=== PATIENT | male | born 1955 | race Caucasian/White ===

== ENCOUNTER 2023-03-01 09:31 | Outpatient (OUT) | payer OTHER, SELFPAY ==
--- NOTE | 2023-03-01 | XR_ITS ---
The [address] [address] Patient Name: SANDRA POTTER MRN: [id number] date: 1955 Sex: M Assigned Patient Location: Current Patient Location: Accession/Order Number: [id number] Exam Date: 03/01/2023 10:00 Report Date: 03/04/2023 08:54 At the request of: ALBERTA TREADWELL Procedure: XR foot LT min 3V PROCEDURE: XR foot LT min 3V COMPARISON: 09/20/2021 HISTORY: LEFT FOOT PAIN FINDINGS: BONES:Remote resection of the distal portion of the first proximal phalanx and the entire first distal phalanx. Remote resection of the second digit at the proximal interphalangeal joint. No new fracture or dislocation. No new lytic or sclerotic change. SOFT TISSUES:Soft tissue swelling/injury of the first toe EFFUSION:None visible. OTHER: Negative. XR/XR foot LT min 3V IMPRESSION: Soft tissue swelling with no plain film evidence of osteomyelitis Electronically authenticated by: JODEE OCASIO Date: 03/04/2023 08:54
== END 2023-03-01 09:32 | disposition home or self-care (01) ==
LOC: WC 09:33
PROVIDERS: PCP Podiatrist Foot & Ankle Surgery; Visit Provider Podiatrist Foot & Ankle Surgery
DX: E11.621 Type 2 diabetes mellitus with foot ulcer (principal); L97.522 Non-pressure chronic ulcer of other part of left foot with fat layer exposed; I48.20 Chronic atrial fibrillation, unspecified; N18.30 Chronic kidney disease, stage 3 unspecified; E11.22 Type 2 diabetes mellitus with diabetic chronic kidney disease; E11.40 Type 2 diabetes mellitus with diabetic neuropathy, unspecified; E78.5 Hyperlipidemia, unspecified; I12.9 Hypertensive chronic kidney disease with stage 1 through stage 4 chronic kidney disease, or unspecified chronic kidney disease; D49.89 Neoplasm of unspecified behavior of other specified sites; E66.9 Obesity, unspecified; E03.9 Hypothyroidism, unspecified
CPT/HCPCS: 11042; 29445; 73630; A6213; G0463

== ENCOUNTER 2023-03-06 11:00 | Outpatient (OUT) | payer OTHER, SELFPAY | END 2023-03-06 11:01 | disposition home or self-care (01) | LOC: WC 03-12 10:35 | PROVIDERS: PCP Podiatrist Foot & Ankle Surgery; Visit Provider Podiatrist Foot & Ankle Surgery | DX: E11.621 Type 2 diabetes mellitus with foot ulcer (principal); L97.522 Non-pressure chronic ulcer of other part of left foot with fat layer exposed; I48.20 Chronic atrial fibrillation, unspecified; E11.40 Type 2 diabetes mellitus with diabetic neuropathy, unspecified; E11.65 Type 2 diabetes mellitus with hyperglycemia; E78.5 Hyperlipidemia, unspecified; E03.9 Hypothyroidism, unspecified; D49.89 Neoplasm of unspecified behavior of other specified sites; E66.9 Obesity, unspecified; I12.9 Hypertensive chronic kidney disease with stage 1 through stage 4 chronic kidney disease, or unspecified chronic kidney disease; N18.30 Chronic kidney disease, stage 3 unspecified | CPT/HCPCS: A6199; G0463 ==

== ENCOUNTER 2023-03-26 09:59 | Outpatient (OUT) | payer OTHER, SELFPAY | END 2023-03-26 10:00 | disposition home or self-care (01) | LOC: WC 09:59 | PROVIDERS: PCP Podiatrist Foot & Ankle Surgery; Visit Provider Podiatrist Foot & Ankle Surgery | DX: E11.621 Type 2 diabetes mellitus with foot ulcer (principal); L97.522 Non-pressure chronic ulcer of other part of left foot with fat layer exposed | CPT/HCPCS: 11042 ==

== ENCOUNTER 2023-04-12 09:49 | Outpatient (OUT) | payer OTHER, SELFPAY ==
--- OUTSIDE RECORDS SUMMARY | 2023-04-12 09:55 | XMS_ITS | CCD ---
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 Name Role Phone MARTÍNEZ, ESSENCE Unavailable Unavailable FRANCISCO LI Unavailable Unavailable MARTÍNEZ, ESSENCE Unavailable Unavailable MARTÍNEZ, ESSENCE Unavailable Unavailable FRANCISCO LI Unavailable Unavailable PAULA FAJARDO Unavailable Unavailabl e FRANCISCO LI Unavailable Unavailable MARTÍNEZ, ESSENCE Unavailable Unavailable MARTÍNEZ, ESSENCE Unavailable Unavailable FRANCISCO LI Unavailable Unavailable Francisco Li Primary Care Provider [phone] Brendan Bolaños Attending Provider [phone] Russell Li MD Primary Care Provider JUSTIN RAO Referring Unavailable RUSSELL LI Primary Care Unavailable Russell Li MD Primary Care Provider [phone] AVASTHI, ULISSES Admitting Unavailable AVASTHI, ULISSES Attending Unavailable RUSSELL LI Primary Care Unavailable AVASTHI, MARGARET Referring Unavailable RUSSELL LI Primary Care Unavailable AVASTHI, ULISSES Admitting Unavailable AVASTHI, ULISSES Attending Unavailable AVASTHI, MARGARET Referring Unavailable RUSSELL LI Primary Care Unavailable Francisco Li Unavailable Francisco Li Unavailable Francisco Garcia Unavailable Unavailable Viridiana Burgess Unavailable Unavailable Unavailable Russell Li MD Primary Care Provider Geeta Dumont Unavailable [phone] None, No PCP Unavailable Unavailable Unavailable Unavailable Russell Li MD Primary Care Provider RUSSELL LI Primary Care Unavailable DEVI, VINCENT S Referring Unavailable DEVI, VINCENT S Referring Unavailable RUSSELL LI H Primary Care Unavailable Guillermo Francisco Primary Care Provider GOLDEN Dumont Attending Provider DREW Farooq Attending Provider FILIPE Lal Attending Provider NO FAMILY, PHYSICIAN Primary Care Provider Unava MD Fannie Souza Admit Provider FILIPE Lal Referring Provider [phone] DO Teri Aragon Primary Care Provider [phone] MD Shirley Persaud Attending Provider MD Casey Bhardwaj Other Provider FILIPE Begum Other Provider MD Estee Han Attending Provider DO Sandra Danielson II Attending Provider DO Francisco Li Primary Care Provider FILIPE Begum Attending Provider [phone] Criselda Renee Attending Unavailable GuillermoFrancisco Danny Primary Care Unavailable TERI ARAGON Primary Care Unavailable JACK ALEMAN Attending Unavailable JACK ALEMAN Admitting Unavailable Geeta Dumont Attending Unavailable Geeta Dumont Admitting Unavailable TERI ARAGON Primary Care Unavailable DREW Farooq Attending Provider NO FAMILY, PHYSICIAN Primary Care Provider Unava MD Shirley Zimmerman Attending Provider [phone] DO Teri Aragon Primary Care Provider GOLDEN Wagner Attending Provider [phone] GOLDEN Dumont Primary Care Provider Dario Bolden Primary Care Physician NO FAMILY, PHYSICIAN Primary Care Provider Unava GOLDEN Best Attending Provider Teri Aragon Unavailable GOLDEN Dumont Primary Care Provider GOLDEN Dumont Attending Provider DREW Farooq Attending Provider DO Stephanie Burgess Referring Provider GOLDEN Dumont Primary Care Provider MD Arron Valverde Attending Provider FILIPE Bolden Attending Provider [phone] Unavailable Unavailable MD Lavon Sandoval Attending Provider [phone] Lavon Sandoval Unavailable GOLDEN Dumont Primary Care Provider DREW Farooq Attending Provider DO Stephanie Burgess Referring Provider MD Arron Valverde Attending Provider FILIPE Bolden Attending Provider MD Lavon Sandoval Attending Provider Dr. Viridiana Burgess Attending [place] Dr. Teri Karimi Primary Care U navailGOLDEN Hargrove Primary Care Provider GOLDEN Dumont Primary Care Provider MD Lavon Sandoval Attending Provider GOLDEN Dumont Attending Provider GOLDEN Dumont Primary Care Provider MD Lavon Sandoval Attending Provider MD Sabino Ding Attending Provider DO Stephanie Burgess Attending Provider Sabino Ding Unavailable Aundrea, [facility] Dr. Viridiana Alvarado Referring Unava ilable Aditya, Dr. Viridiana Alvarado Attending Unava ilable Aditya, Dr. Viridiana Alvarado Attending Unava ilable Aundrea, Dr[facility] Dr[facility] Viridiana Alvarado Referring Unava ilable NON STAFF Primary Care Provider UnavailGOLDEN Saul Primary Care Provider MD Teri Ybarra Attending Provider GOLDEN Dumont Primary Care Provider GOLDEN Dumont Attending Provider NON STAFF Attending Provider Unavailable RobIngris cano Unavailable GOLDEN Dumont Primary Care Provider GOLDEN Dumont Attending Provider GOLDEN Del Rosario Attending Provider DO Sandra Danielson II Attending Provider DO Teri Aragon Primary Care Provider [phone] DO Stephanie Burgess Attending Provider Timmis, Sindi H Referring Unavailable Timmis, Sindi H Attending Unavailable Timmis, Sindi H Admitting Unavailable Dario Bolden Attending Unavailable Dario Bolden Admitting Unavailable NON STAFF Primary Care Provider UnavailMD Teri King Attending Provider [phone] GOLDEN Del Rosario Attending Provider DO Sandra Danielson II Attending Provider DO Teri Aragon Primary Care Provider [phone] DO Stephanie Burgess Attending Provider MD Sindi Foster Jr Attending Provider FILIPE Carver Attending Provider DO Bobby Bernabe A Emergency Provider MD Barry Cisneros Admit Provider MD Barry Cisneros Attending Provider [phone] ADELINA Schneider Other Provider Unavailable DO Stephanie Burgess Other Provider MD Elroy Werner Other Provider MD Viridiana Thompson Other Provider MD Deanne Gaxiola Other Provider MD Garry Rivera Other Provider GOLDEN Melchor Other Provider MD Rosemary Rodriguez Other Provider MD Yeny Flores Other Provider MD Ariane Ramsey Other Provider Jean Pierre [facility] Naomi Garrett Other Provider MD Kelsea Yancey Other Provider DO Bobby Bernabe Emergency Provider MD Barry Cisneros Admit Provider ADELINA Schneider Other Provider Unavailable DO Stephanie Burgess Other Provider MD Elroy Werner Other Provider MD Viridiana Thompson Other Provider MD Deanne Gaxiola Other Provider MD Garry Rivera Other Provider GOLDEN Melchor Other Provider MD Rosemary Rodriguez Other Provider MD Yeny Flores Other Provider MD Ariane Ramsey Other Provider ADOLFO [place]- Naomi Garrett Other Provider MD Kelsea Yancey Other Provider MD Mina Reilly Other Provider MD Subhash Duckworth Attending Provider MD Deanne Gaxiola Attending Provider SOFIA Zeng Emergency Provider MD Polly Velasquez Admit Provider MD Polly Velasquez Attending Provider [phone] GOLDEN Lombardo Attending Provider MD Subhash Duckworth Referring Provider DREW Farooq Other Provider Mina Reilly Unavailable TERI ARAGON Primary Care Unava ilable Prashant Salinas Unavailable DO Teri Aragon Primary Care Provider GOLDEN Wagner Attending Provider GOLDEN Dumont Primary Care Provider GOLDEN Dumont Attending Provider [phone] FILIPE Espinoza Attending Provider SINDI FOSTER Attending Unavailable EWI SOTO Attending Unavailable WEI SOTO Attending Unavailable DARIO BOLDEN Attending Unavailable DARIO BOLDEN Attending Unavailable Teri Aragon Primary Care Unavailable Deanne Gaxiola Attending Unavailable Deanne Gaxiola Admitting Unavailable Alton Espinoza Attending Unavailable Alton Espinoza Admitting Unavailable Geeta Dumont Primary Care Unavailable Lavon Sandoval Admitting Unavailable Lavon Sandoval Attending Unavailable Rohrbacher, Geeta Primary Care Unavailable Rohrbacher, Geeta Primary Care Unavailable Lavon Sandoval Admitting Unavailable Lavon Sandoval Attending Unavailable Suhbash Duckworth Attending Unavailable [facility] Unavailable Alla Schneider Consulting Unavailable Alamarkie Alaa Admitting Unavailable Stephanie Burgess Consulting Unavailable Elroy Werner Consulting Unavailable Viridiana Thompson Consulting Unavail able Deanne Gaxiola Consulting Unavailable Garry Rivera Consulting Unavailab Shameka Bo Consulting Unavailable Rosemary Rodriguez Consulting Unavailable Mark, Yeny Perryeb Consulting Unavailab Ariane Be Consulting Unavailable Naomi Greenfield Consulting Unavailable Kelsea Yancey Consulting Unavailable Mina Reilly Consulting Unavailable [facility]oy [facility] Care Unavailable Polly Velasquez Admitting Unavailable Alla Schneider Consulting Unavailable Polly Velasquez Attending Unavailable Stephanie Burgess Consulting Unavailable Alphonso, Abbasi Consulting Unavailable Viridiana Thompson Consulting Unavail able Deanne Gaxiola Consulting Unavailable Garry Rivera Consulting Unavailab Shameka Bo Consulting Unavailable Rodriguez, Rosemary Consulting Unavailable Mark, Yeny Najeeb Consulting Unavailab chava Ramsey, Tarek Consulting Unavailable Naomi [place] Consulting Unavailable Bc, Kelsea Robles Consulting Unavailable Sindi Foster Jr Attending Unavailable [facility] Unavailable Sindi Foster Jr Admitting Unavailable Lavon Sandoval Admitting Unavailable Lavon Sandoval Attending Unavailable Charissarbacher, Geeta Primary Care Unavailable Rohrbacher, Geeta Primary Care Unavailable Rohrbacher, Geeta Admitting Unavailable Rohrbacher, Geeta Attending Unavailable Rohrbacher, Geeta Primary Care Unavailable Rohrbacher, Geeta Admitting Unavailable Rohrbacher, Geeta Attending Unavailable Rohrbacher, Geeta Primary Care Unavailable Sabino Ding Admitting Unavailable Sabino Ding Attending Unavailable Rohrbacher, Geeta Primary Care Unavailable Stephanie Burgess Admitting Unavailable Stephanie Burgess Attending Unavailable Rohrbacher, Geeta Primary Care Unavailable Rohrbacher, Geeta Admitting Unavailable Rohrbacher, Geeta Attending Unavailable Rohrbacher, Geeta Admitting Unavailable Rohrbacher, Geeta Attending Unavailable NON STAFF Primary Care Unavailable Braniecki, Teri Primary Care Unavailable Stephanie Burgess Admitting Unavailable Stephanie Burgess Attending Unavailable Timmis Jr, Sindi H Attending Unavailable Timmis Jr, Sindi H Admitting Unavailable Braniecki, Teri Primary Care Unavailable Joana Farooq Consulting Unavailable Ingris Lombardo Attending Unavailable Subhash Duckworth Referring Unavailable Braniecki, Teri Primary Care Unavailable Ingris Lombardo Admitting Unavailable Dario Bolden Attending Unavailable Rohrbacher, Geeta Primary Care Unavailable Dario Boledn Admitting Unavailable Branalenacki, Teri Primary Care Unavailable Sima Wagner Attending Unavailable Michael Wagneria Admitting Unavailable Rohrbacher, Geeta Primary Care Unavailable Rohrbacher, Geeta Attending Unavailable Rohrbacher, Geeta Admitting Unavailable Timmis Jr, Sindi H Admitting Unavailable Timmis Jr, Sindi H Attending Unavailable Rohrbacher, Geeta Primary Care Unavailable Rohrbacher, Geeta Primary Care Unavailable Rohrbacher, Geeta Attending Unavailable Rohrbacher, Geeta Admitting Unavailable Braniecki, Teri Primary Care Unavailable Adamowicz II, Sandra J Admitting Unavaila ble Adamowicz II, Sandra J Attending Unavaila ble Alton Espinoza Attending Unavailable Rohrbacher, Geeta Primary Care Unavailable Alton Espinoza Admitting Unavailable Lavon Sandoval Attending Unavailable Rohrbacher, Geeta Primary Care Unavailable Lavon Sandoval Admitting Unavailable Dario Bolden Attending Unavailable Dario Bolden Admitting Unavailable Braniecki, Teri Primary Care Unavailable Ybarra, Teri Admitting Unavailable YbarraTeri Attending Unavailable NON STAFF Primary Care Unavailable Vivian Del Rosario Admitting Unavail able Vivian Del Rosario Attending Unavail able Unavailable Unavailable Unavailable Allergies Allergy Classification Reported Allergen(s) Allergy Type Date of Onset Reaction(s) Facility Angiotensin Converting Enzyme (NUBIA) Inhibitors (4 sources) Lisinopril Drug Allergy 0 Other (See Comments), Swelling, Anaphylaxis [facility] Calcium Channel Blockers (4 sources) dilTIAZem Drug Allergy 0 Itching, Other (See Comments), Palpitations [facility] Opioid Agonists (4 sources) Morphine Drug Allergy 1 Other (See Comments), Palpitations [facility] (20 sources) dilTIAZem; Translations: [diltiazem] Drug Allergy 0 Itching, Other (See Comments), Palpitations [facility] (20 sources) Lisinopril; Translations: [lisinopril] Drug Allergy 0 hives, Other (See Comments), Swelling, Anaphylaxis [facility] (20 sources) Morphine; Translations: [morphine] Drug Allergy 1 hives, Other (See Comments), Palpitations [facility] (20 sources) Angiotensin Converting Enzyme (Nubia) Inhibitors; Translations: [NUBIA Inhibitors] Allergy to drug (finding) 3 Unknown [facility] -[facility] [employer] [address] [place] Work Phone: (20 sources) Morphine Derivatives; Translations: [Morphine Derivatives] Allergy to drug (finding) [employer]Cardiology -[facility] [employer] [address] [place] Work Phone: Medications Current Medications Medication Drug Class(es) Dates Sig (Normalized) Sig (Original) acetaminophen 325 mg / oxyCODONE hydrochloride 5 mg oral tablet (20 sources) Opioid Agonist Start: 02-15-2023 take 1 tablet by mouth every six hours Oxycodone-Acetami nophen Active 1 TAB PO Q6H 18 February 15, 2023 Start: 02-15-2017 End: 04-21-2017 take 2 tablets by mouth every four to six hours Oxycodone-Acetaminophen (Percocet) 5-325 mg tablet Discontinued 2 TAB PO EVERY 4-6 HOURS February 15, 2017 April 21, 2017 8:28am albuterol 0.833 mg/ml / ipratropium bromide 0.167 mg/ml inhalation solution (3 sources) Anticholinergic, beta2-Adrenergic Agonist Start: 06-30-2020 End: 05-23-2021 take 3 mL by inhalation every six hours as needed ipratropium-albuterol (DUONEB) 0.5-2.5 (3) MG/3ML SOLN nebulizer solution Indications: Centrilobular emphysema (HCC) Inhale 3 mLs into the lungs every 6 hours as needed for Shortness of Breath 360 vial 0 07/08/2020 Active allopurinol 300 mg oral tablet (20 sources) Xanthine Oxidase Inhibitor Start: 12-24-2016 take 300 mg by mouth once daily Allopurinol Active 300 MG PO Daily December 23, 2016 11:00pm allopurinol ; or ally Quantity: 0 Refills: 0 Ordered: 15-Jul-2015 Christiana Burt Status: Other Generic Substitution Allowed Aspir-81 81 MG (20 sources) take 1 tablet by mouth once daily Aspir-81 81 MG 1 tablet Orally Once a day Active aspirin 81 mg oral tablet (20 sources) Platelet Aggregation Inhibitor, Nonsteroidal Anti-inflammatory Drug Start: 09-20-2021 take 81 mg by mouth at bedtime Aspirin Active 81 MG PO Bedtime September 19, 2021 11:00pm Start: 01-10-2021 End: 01-04-2022 take 1 tablet by mouth once daily Aspirin Adult Low Dose 81 MG Oral Tablet Delayed Release TAKE 1 TABLET DAILY. Quantity: 90 Refills: 3 Ordered: 07-Sep-2022 Viridiana Burgess DO Start : 25-Jan-2021 Active Start: 04-30-2017 End: 05-12-2020 take 81 mg by mouth once daily Aspirin Discontinued 81 MG PO Daily April 30, 2017 12:00am May 12, 2020 9:16am Start: 12-24-2016 End: 04-30-2017 take 81 mg by mouth once daily Aspirin Discontinued 81 MG PO Daily December 23, 2016 11:00pm April 30, 2017 10:43am take 1 tablet by fito th once daily aspirin 81 mg oral tablet, disintegrating ; 1 tab(s) orally once a day Quantity: 0 Refills: 0 Ordered: 15-Jul-2015 Christiana Burt Status: Other Generic Substitution Allowed Comment on above: Swallow whole. Do no t crush.Take with food or milk. atomoxetine 25 mg oral capsule (2 sources) Norepinephrine Reuptake Inhibitor take 1 capsule by mouth every twenty-four hours Atomoxetine HCl 25 MG 1 capsule Orally Once a day Active atorvastatin 20 mg oral tablet (20 sources) HMG-CoA Reductase Inhibitor Start: 09-14-19 take 20 mg by mouth at bedtime Atorvastatin Active 20 MG PO Bedtime April 03, 2022 12:00am Start: 02-19-2021 take 1 tablet by fito th at bedtime Atorvastatin Calcium 10 MG Oral Tablet TAKE 1 TABLET BY MOUTH AT BEDTIME Quantity: 90 Refills: 3 Ordered: 20-Feb-2021 Viridiana Burgess DO Start : 19-Feb-2021 Active Start: 10-11-2020 End: 04-03-2022 take 20 mg by mouth once daily at bedtime Atorvastatin Discontinued 20 MG PO Daily at bedtime October 10, 2020 11:00pm April 03, 2022 8:03am Start: 02-15-2017 End: 08-27-2019 take 10 mg by mouth once daily at bedtime Atorvastatin Discontinued 10 MG PO Daily at bedtime February 15, 2017 12:00am August 27, 2019 12:08pm biotin 10 mg disintegrating oral tablet (20 sources) Start: 11-27-2022 take 90898 ug by mouth once daily Biotin Active 37594 MCG PO Daily November 26, 2022 11:00pm take 1 tablet by mouth once elisabet y Biotin 89864 MCG 1 tablet Orally Once a day Active Biotin Active bumetanide 0.5 mg oral tablet (20 sources) Loop Diuretic Start: 02-10-2023 take 0.5 mg by mouth once daily Bumetanide Active 0.5 MG PO DAILY@0800 30 February 10, 2023 12:00am Start: 12-24-2016 End: 02-10-2023 take 4 mg by mouth once daily in the morning Bumetanide Discontinued 4 MG PO Every morning December 23, 2016 11:00pm February 10, 2023 2:49pm Start: 12-24-2016 take 2 mg by mouth o nce daily in the morning Bumetanide Active 2 MG PO Every morning December 23, 2016 11:00pm take 1 tablet by fito th every twelve hours Bumetanide 2 MG 1 tablet Orally Twice a day for 90 day(s) Active busPIRone hydrochloride 10 m g oral tablet (7 sources) Start: 03-12-2023 busPIRone HCl 10 MG 1 tablet Orally Three a day for 90 days Feb, Active Start: 03-12-2023 take 1 tablet by fito every twelve hours busPIRone HCl 5 MG 1 tablet Orally Twice a day for 30 days Feb, Active cephalexin 500 mg oral capsule (2 sources) Cephalosporin Antibacterial take 1 capsule by mouth every six hours Cephalexin 500 MG 1 capsule Orally Four times a day Active Cholecalciferol (20 sources) Vitamin D Start: take 4000 [IU] by mouth once daily Cholecalciferol (Vitamin D3) Active 4000 UNIT PO Daily September 20, 2021 12:00am Start: 09-20-2021 take 4000 [IU] by [facility] once daily Cholecalciferol (Vitamin D3) Active 4000 UNIT PO Daily September 19, 2021 11:00pm Start: 09-20-2021 take 4000 [IU] by [facility] once daily Cholecalciferol (Vitamin D3) Active 4000 UNIT PO Daily September 19, 2021 11:00pm take 2 capsules by [facility] every twenty-four hours Vitamin D3 50 MCG (2000 UT) 2 capsules Orally Once a day Active Vitamin D 1000 U NIT TABS TAKE 1 TABLET DAILY. Quantity: 0 Refills: 0 Ordered: 06-Dec-2020 DO Active diazePAM 5 mg oral tablet (20 sources) Benzodiazepine Start: 09-10-2022 diazePAM 5 MG 1-2 tablet as needed Orally Once a day for 1 days take 30 minutes prior to procedure Aug, Active Start: 01-01-2022 take 1 tablet by [facility] every twenty-four hours diazePAM 5 MG 1 tablet as needed Orally Once a day for 1 days Dec, Not-Taking docusate sodium 50 mg / sennosides, snf 8.6 mg oral tablet (7 sources) Start: 02-06-2023 take 2 tablets by mouth once daily at bedtime Sennosides-Docusate Sodium Active 2 TAB-CAP PO Daily at bedtime February 06, 2023 12:00am doxepin hydrochloride 150 mg oral capsule (1 source) Tricyclic Antidepressant take 1 capsule by mouth once daily at bedtime doxepin 150 mg oral capsule ; 1 cap(s) orally once a day (at bedtime) Quantity: 0 Refills: 0 Ordered: 15-Jul-2015 Uy Christiana Status: Other Generic Substitution Allowed FLUoxetine 10 mg oral capsule (9 sources) Serotonin Reuptake Inhibitor Start: 03-05-2023 take 1 capsule by mouth every twenty-four hours FLUoxetine HCl 10 MG 1 capsule Orally Once a day for 30 days Feb, Active take 1 capsule by [facility] every twelve hours FLUoxetine HCl 20 MG 1 capsule Orally Tw ice a day for 90 days Active take 1 capsule by mo [facility] every twenty-four hours FLUoxetine HCl 20 MG 1 capsule Orally On ce a day for 30 days Active fluticasone propionate 0.05 mg/actuat metered dose nasal spray (20 sources) Corticosteroid Start: 04-04-2023 take 1 spray(s) nasal route once daily Fluticasone Propionate 50 MCG/ACT 1 spray in each nostril Nasally Once a day for 90 days Mar, Active Start: 06-16-2020 Fluticasone Pr opionate 50 MCG/ACT Nasal Suspension INSTILL SQUIRT PRN Quantity: 0 Refills: 0 Ordered: 10-May-2021 DO Start : 16-Jun-2020 Active Start: 05-12-2020 fluticasone (F LONASE) 50 MCG/ACT nasal spray Not currently taking, but will resume after the procedure. 0 05/12/2020 Active Start: 05-12-2020 End: 11-27-2022 Fluticasone Propionate Disco ntinued 1 SPRAY INTRANASAL Daily May 12, 2020 12:00am November 27, 2022 1:32pm take 1 spray(s) nasa l route once daily Fluticasone Propionate 50 MCG/ACT 1 spray in each nostril Nasally Once a day Not-Taking glipiZIDE er 2.5 mg 24 hr extended release oral tablet (20 sources) Sulfonylurea Start: 04-03-2022 take 2.5 mg by mouth twice daily Glipizide Active 2.5 MG PO Twice daily April 03, 2022 12:00am take 1 tablet by fito every twenty-four hours glipiZIDE XL 2.5 MG 1 tablet with breakfast Orally Once a day for 90 day(s) Active levothyroxine sodium 0.025 mg oral tablet (20 sources) l-Thyroxine Start: 02-06-2023 take 1 tablet by mouth once daily Levothyroxine (Synthroid) 25 mcg tablet Active 25 MCG PO Daily February 06, 2023 12:00am Start: 07-30-2017 take 100 ug by mouth once elisabet y Levothyroxine Active 100 MCG PO Daily July 30, 2017 8:05am Start: 07-30-2017 End: 02-06-2023 take 50 ug by mouth once daily Levothyroxine Discontin ued 50 MCG PO Daily July 29, 2017 11:00pm February 06, 2023 3:06pm take 1 tablet by fito once daily in the morning Levothyroxine Sodium 25 MCG TAKE 1 TABLET BY MOUTH ONCE DAILY IN THE MORNING ON AN EMPTY STOMACH for 90 Active take 1 tablet by fito once daily Synthroid 50 MCG Oral Tablet TAKE 1 TABLET DAILY. Quantity: 0 Refills: 0 Ordered: 06-Dec-2020 DO Active take 1 tablet by fito th once daily Synthroid 50 mcg (0.05 mg) oral tablet ; 1 tab(s) orally once a day Quantity: 0 Refills: 0 Ordered: 10-Jan-2021 Clyde Ferguson Generic Substitution Allowed Magnesium (20 sources) take 2 tablets by mo [facility] twice daily Magnesium 250 MG 2 tablet with a meal Orally twice a day Active take 1 tablet by mouth twice nadia ly Magnesium 400 MG 1 tablet with a meal Orally twice a day Active magnesium amino acid chelate 133 mg oral tablet (5 sources) Specialty Vitami ns Products (MAGNESIUM, AMINO ACID CHELATE,) 133 MG tablet Take 400 mg by mouth 2 times daily 0 Active magnesium oxide 400 mg oral tablet (20 sources) Start: 12-24-2016 take 500 mg by mouth twice daily Magnesium Oxide Active 500 MG PO Twice daily December 23, 2016 11:00pm Start: 12-24-2016 take 400 mg by mouth twice daily Magnesium Oxide Active 400 MG PO Twice daily December 23, 2016 11:00pm take 1 tablet by fito once daily magnesium oxide 400 mg (241.3 mg elemental magnesium) oral tablet ; 1 tab(s) orally once a day Quantity: 0 Refills: 0 Ordered: 15-Jul-2015 Uy, Christiana Generic Substitution Allowed methylPREDNISolone 4 mg oral tablet (2 sources) Corticosteroid Start: 11-27-2021 methylPREDNISolone 4 MG as directed Orally daily for 6 days Nov, Active Multivitamin preparation (1 source) take 1 tablet by mouth once daily Multiple Vitamins oral tablet ; 1 tab(s) orally once a day Quantity: 0 Refills: 0 Ordered: 15-Jul-2015 Uy, Christiana Generic Substitution Allowed omeprazole 40 mg delayed release oral capsule (20 sources) Proton Pump Inhibitor Start: 12-24-2016 take 40 mg by mouth once daily Omeprazole Active 40 MG PO Daily December 24, 2016 1:57pm Start: 11-24-2014 take 40 mg by mouth twice elisabet y Omeprazole Active 40 MG PO Twice daily December 23, 2016 11:00pm Paxlovid 10 x 150 MG & 10 x 100MG (2 sources) Start: 10-02-2021 Paxlovid 10 x 150 MG & 10 x 100MG as directed Orally Twice a day for 5 day(s) Sep, Active piroxicam 10 mg oral capsule (18 sources) Nonsteroidal Anti-inflammatory Drug Start: 02-12-2023 take 10 mg by mouth once daily Piroxicam Active 10 MG PO Daily February 12, 2023 12:00am Start: 02-12-2023 Piroxicam Acti ve MG February 12, 2023 12:00am microencapsulated potassium chloride 20 meq extended release oral tablet (20 sources) Start: 02-10-2023 Potassium Chlo ride (Klor-Con M20) 20 mEq Tablet,Er Particles/Crystals Active 40 MEQ PO Three times daily February 10, 2023 12:00am Start: 04-03-2022 End: 02-10-2023 take 200 mEq by mouth once daily in the morning Potassium Chloride Discontinued 200 MEQ PO Every morning April 03, 2022 8:13am February 10, 2023 2:49pm Start: 09-24-2021 End: 04-03-2022 take 100 mEq by mouth once daily in the morning Potassium Chloride Discontinued 100 MEQ PO Every morning September 24, 2021 7:39pm April 03, 2022 8:13am Start: 02-19-2021 take 1 tablet by fito th in the morning, then take 8 tablets by mouth in the evening Potassium Chloride Monica ER 20 MEQ Oral Tablet Extended Release TAKE 10 TABLETS BY MOUTH IN THE MORNING AND 8 TABLETS IN THE EVENING Quantity: 1620 Refills: 3 Ordered: 18-Apr-2022 Viridiana Burgess DO Start : 19-Feb-2021 Active Start: 02-19-2021 take 6 tablets by mo uth in the morning, then take 8 tablets by mouth in the evening Potassium Chloride Monica ER 20 MEQ Oral Tablet Extended Release TAKE 10 TABLETS BY MOUTH IN THE MORNING AND 8 TABLETS IN THE EVENING Quantity: 1620 Refills: 3 Ordered: 20-Feb-2021 Viridiana Burgess DO Start : 19-Feb-2021 Active Start: 02-19-2021 take 6 tablets by mo uth in the morning, then take 8 tablets by mouth in the evening Potassium Chloride Monica ER 20 MEQ Oral Tablet Extended Release TAKE 10 TABLETS BY MOUTH IN THE MORNING AND 8 TABLETS IN THE EVENING Quantity: 1620 Refills: 3 Ordered: 20-Feb-2021 Viridiana Burgess DO Start : 19-Feb-2021 Active Start: 10-11-2020 End: 02-10-2023 take 160 mEq by mouth at bedtime Potassium Chloride Discontinued 160 MEQ PO Bedtime October 10, 2020 11:00pm February 10, 2023 2:49pm Start: 12-24-2016 End: 05-12-2020 take 160 mEq by mouth once daily in the evening Potassium Chloride Discontinued 160 MEQ PO Every evening February 04, 2018 12:00am May 12, 2020 9:18am Start: 12-24-2016 End: 09-24-2021 take 200 mEq by mouth once daily in the morning Potassium Chloride Discontinued 200 MEQ PO Every morning December 23, 2016 11:00pm September 24, 2021 7:40pm take 2 tablets by mo uth every twelve hours Potassium Chloride ER 20 MEQ 2 tablets Orally bid Active take 2 tablets by mo uth every eight hours Potassium Chloride ER 20 MEQ 2 tablets Orally tid Active take 8 tablets by mo uth twice daily in the morning Potassium Chloride ER 20 MEQ TAKE 10 TABLETS BY MOUTH IN THE MORNING AND 8 TABLETS IN THE EVENING Orally Twice a day Active Potassium Chlori de Monica ER 20 MEQ Oral Tablet Extended Release TAKE 10 TABLETS BY MOUTH IN THE MORNING AND 8 TABLETS BY MOUTH IN THE EVENING. Quantity: 1620 Refills: 3 Ordered: 01-Nov-2022 Viridiana Burgess DO Active Potassium Chlori de Monica ER 20 MEQ Oral Tablet Extended Release TAKE 10 TABLETS BY MOUTH IN THE MORNING AND 8 TABLETS BY MOUTH IN THE EVENING. Quantity: 1620 Refills: 3 Ordered: 16-Apr-2022 Viridiana Burgess DO Active take 8 tablets by mo uth once daily in the evening potassium chloride (KLOR-CON M) 20 MEQ extended release tablet Take 20 mEq by mouth Takes 10 tablets every morning and 8 tablets every evening. Dose was confirmed w/ the patient. Prescribed per start up specialist Dr. Burgess in [place]. 0 Active Potassium Chlori de Active potassium chlori de 20 mEq oral tablet, extended release ; take as directed. Quantity: 0 Refills: 0 Ordered: 15-Jul-2015 Jennifer Burta Generic Substitution Allowed potassium chlori de (KLOR-CON M) 20 MEQ extended release tablet Take 140 mEq by mouth 2 times daily 0 Active predniSONE 10 mg oral tablet (1 source) take 1 tablet by mouth once daily predniSONE 10 mg oral tablet ; 1 tab(s) orally once a day Quantity: 0 Refills: 0 Ordered: 15-Jul-2015 Jennifer Burta Status: Other Generic Substitution Allowed rivaroxaban 20 mg oral tablet (20 sources) Factor Xa Inhibitor Start: take 10 mg by mouth once daily Rivaroxaban (Xarelto) 20 mg Tablet Active 10 MG PO Daily December 24, 2016 1:57pm Start: 12-24-2016 End: 09-20-2021 take 1 tablet by mouth once daily Rivaroxaban (Xarelto) 20 mg Tablet Discontinued 20 MG PO Daily December 23, 2016 11:00pm September 20, 2021 6:07pm rOPINIRole 1 mg oral tablet (4 sources) Nonergot Dopamine Agonist Start: 03-25-2023 take 1 tablet by mouth once daily at bedtime rOPINIRole HCl 1 MG 1 tablet 1 to 3 hours before bedtime Orally Once a day for 30 days Mar, Active Start: 03-25-2023 take 1 tablet by fito th once daily at bedtime rOPINIRole HCl 0.25 MG 1 tablet 1 to 3 hours before bedtime Orally Once a day for 30 days Mar, Active sertraline 100 mg oral tablet (1 source) Serotonin Reuptake Inhibitor Zoloft 100 mg oral tablet ; orally Quantity: 0 Refills: 0 Ordered: 15-Jul-2015 Christiana Burt Status: Other Generic Substitution Allowed 1000 ml sodium chloride 9 mg/ml injection (1 source) Start: 08-26-19 21 0.9 % sodium chloride infusion spironolactone 25 mg oral tablet (20 sources) Aldosterone Antagonist Start: 02-11-20 take 25 mg by mouth twice daily Spironolactone Active 25 MG PO Twice daily 60 February 10, 2023 12:00am Start: 02-06-2023 End: 02-10-2023 take 25 mg by mouth once daily Spironolactone Disconti nued 25 MG PO Daily February 06, 2023 12:00am February 10, 2023 2:49pm Start: 12-05-2022 take 1 tablet by fito th once daily Spironolactone 25 MG Oral Tablet TAKE 1 TABLET DAILY. Quantity: 30 Refills: 1 Ordered: 05-Dec-2022 Viridiana Burgess DO Start : 05-Dec-2022 Active Stool Softener (20 sources) Stool Softener A ctive thiamine 100 mg oral tablet (20 sources) Start: 02-06-2023 take 1 tablet by mouth once daily Thiamine Hcl (Vitamin B1) (Vitamin B-1) 100 mg Tablet Active 100 MG PO Daily February 06, 2023 12:00am tiZANidine 4 mg oral tablet (20 sources) Central alpha-2 Adrenergic Agonist Start: 04-03-2022 take 4 mg by mouth every eight hours Tizanidine Active 4 MG PO Q8H April 03, 2022 12:00am Start: 11-30-2021 take 1 tablet by fito th every eight hours tiZANidine HCl 4 MG 1 tablet as needed Orally Three times a day for 90 days Nov, Active traZODone hydrochloride 50 mg oral tablet (2 sources) Serotonin Reuptake Inhibitor Start: 04-04-2023 take 1-2 tablets by mouth once daily at bedtime as needed traZODone HCl 50 MG 1-2 tablet at bedtime as needed Orally Once a day for 30 days Mar, Active 24 HR viloxazine 100 MG Extended Release Oral Capsule [Qelbree] (3 sources) take 2 capsules by mouth every twenty-four hours Qelbree 100 MG 2 capsules Orally Once a day Active Vitamin D3 (20 sources) Vitamin D3 Active Completed/Discontinued Medications Medication Drug Class(es) Dates Sig (Normalized) Sig (Original) acetaminophen 325 mg / HYDROcodone bitartrate 5 mg oral tablet (20 sources) Opioid Agonist Start: 09-24-2021 End: 11-10-2021 take 1 tablet by mouth every four hours Hydrocodone-Acetam inophen Discontinued 1 TAB PO Q4H 7 7 September 24, 2021 November 10, 2021 11:37am [id number] 200 actuat albuterol 0.09 mg/actuat metered dose inhaler (20 sources) beta2-Adrenergic Agonist Start: 12-16-2021 take 1-2 puff(s) by inhalation every four to six hours as needed Albuterol Sulfate HFA 108 (90 Base) MCG/ACT Inhalation Aerosol Solution INHALE 1 TO 2 PUFFS EVERY 4 TO 6 HOURS NEEDED Quantity: 3 Refills: 0 Ordered: 01-Jan-2022 DO Start : 16-Dec-2021 Active Start: 12-24-2016 take 1 puff(s) by in halation every four to six hours Albuterol Sulfate Active 1 PUFF INHALATION EVERY 4-6 HOURS December 24, 2016 1:57pm Start: 12-24-2016 take 1 puff(s) by in halation every four to six hours Albuterol Sulfate Active 1 PUFF INHALATION EVERY 4-6 HOURS December 23, 2016 11:00pm Start: 12-24-2016 take 1 puff(s) by in halation every four to six hours Albuterol Sulfate Active 1 PUFF INHALATION EVERY 4-6 HOURS December 24, 2016 12:00am Albuterol Sulfat e HFA 108 (90 Base) MCG/ACT 1 or 2 puff as needed Inhalation every 4 hrs for 90 day(s) PRN Active Albuterol Sulfat e HFA 108 (90 Base) MCG/ACT 1 or 2 puff as needed Inhalation every 4 hrs for 90 day(s) PRN Active Albuterol Sulfat e HFA 108 (90 Base) MCG/ACT 1 or 2 puff as needed Inhalation every 4 hrs for 90 day(s) Active Albuterol Sulfat e HFA 108 (90 Base) MCG/ACT USE 1 OR 2 INHALATIONS BY MOUTH EVERY 4 HOURS NEEDED for 90 Active ProAir RespiClic k 108 (90 Base) MCG/ACT Inhalation Aerosol Powder Breath Activated Quantity: 0 Refills: 0 Ordered: 06-Dec-2020 DO Active take 2 puff(s) by in halation every six hours ProAir RespiClick 90 mcg/inh inhalation powder ; 2 puff(s) inhaled every 6 hours Quantity: 0 Refills: 0 Ordered: 10-Jan-2021 Clyde Ferguson Generic Substitution Allowed ALPRAZolam 0.25 mg oral tablet (20 sources) Benzodiazepine Start: 03-05-2023 take 1 tablet by mouth every twelve hours ALPRAZolam 0.25 MG 1 tablet as needed Orally Twice a day for 14 days Feb, Not-Taking/PRN Start: 01-22-2017 End: 01-27-2019 take 1 tablet by mouth once daily at bedtime Alprazolam (Xanax) 0.5 mg Tablet Discontinued 0.5 MG PO Daily at bedtime January 22, 2017 12:00am January 27, 2019 9:17am amiodarone hydrochloride 100 mg oral tablet (20 sources) Antiarrhythmic Start: 01-22-2017 End: 07-22-2018 take 100 mg by mouth once daily Amiodarone Discontinued 100 MG PO Daily January 22, 2017 12:00am July 22, 2018 7:45am Start: 12-24-2016 End: 01-22-2017 take 200 mg by mouth once daily Amiodarone Discontinued 200 MG PO Daily December 23, 2016 11:00pm January 22, 2017 10:13am amoxicillin 500 mg oral capsule (20 sources) Penicillin-class Antibacterial Start: 03-13-2019 End: 07-28-2019 take 500 mg by mouth three times daily Amoxicillin Discontinued 500 MG PO Three times daily March 13, 2019 12:00am July 28, 2019 9:34am amoxicillin 875 mg / clavulanate 125 mg oral tablet (20 sources) Penicillin-class Antibacterial Start: 12-21-2021 End: 04-03-2022 take 1 tablet by mouth every twelve hours Amoxicillin-Pot Clavulanate Discontinued 1 TAB PO Q12H December 20, 2021 11:00pm April 03, 2022 8:09am Start: 09-24-2021 End: 11-10-2021 take 1 tablet by mouth twice daily Amoxicillin-Pot Clavulanate Discontinued 1 TAB PO Twice daily September 23, 2021 11:00pm November 10, 2021 11:34am Start: 04-21-2017 End: 04-30-2017 take 1 tablet by mouth twice daily Amoxicillin-Pot Clavulanate Discontinued 1 TAB PO Twice daily April 21, 2017 12:00am April 21, 2017 10:29am take 1 tablet by fito th every eight hours Augmentin 500-125 MG 1 tablet Orally every 8 hrs Active atenolol 25 mg oral tablet (20 sources) beta-Adrenergic Dunia Start: 02-06-2023 End: 02-06-2023 take 12.5 mg by mouth once daily Atenolol Discontinued 12.5 MG PO Daily February 06, 2023 12:00am February 06, 2023 3:35pm Start: 03-28-2022 take 0.5 tablet by m outh once daily Atenolol 25 MG Oral Tablet TAKE ONE-HALF TABLET BY MOUTH DAILY Quantity: 45 Refills: 3 Ordered: 01-Jun-2022 Viridiana Burgess DO Start : 28-Mar-2022 Active Start: 12-24-2016 take 50 mg by mouth once daily Atenolol Active 50 MG PO Daily December 24, 2016 1:57pm Start: 12-24-2016 End: 07-24-2022 take 12.5 mg by mouth at bedtime Atenolol Discontinued 12.5 MG PO Bedtime December 23, 2016 11:00pm July 24, 2022 6:10am take 1 tablet by fito th every twenty-four hours Atenolol 25 MG 1 tablet Orally Once a day Not-Taking take 0.5 tablet by m outh once daily Atenolol 25 MG Oral Tablet TAKE 1/2 TABLET DAILY. Quantity: 45 Refills: 0 Ordered: 25-Jan-2022 Viridiana Burgess DO Active atenolol (TENORM IN) 25 MG tablet Take 12.5 mg by mouth in the morning. 0 Active take 1 tablet by fito th every twenty-four hours Atenolol 50 MG 1 tablet Orally Once a day Active clindamycin 300 mg oral capsule (5 sources) Lincosamide Antibacterial Start: 02-15-2023 End: 02-26-2023 take 600 mg by mouth three times daily Clindamycin Hcl Discontinued 600 MG PO Three times daily 12 February 15, 2023 12:00am February 26, 2023 11:26am clopidogrel 75 mg oral tablet (20 sources) [id number] Platelet Inhibitor Start: 02-17-2021 take 1 tablet by mouth once daily Clopidogrel Bisulfate 75 MG Oral Tablet TAKE 1 TABLET DAILY. Quantity: 90 Refills: 1 Ordered: 17-Feb-2021 Francisco Garcia MD Start : 17-Feb-2021 Active please stop Xarelto and start clopidogrel 75mg daily for 6 months cyproheptadine hydrochloride 4 mg oral tablet (20 sources) Start: 04-03-2022 End: 11-27-2022 take 2 mg by mouth once daily at bedtime Cyproheptadine Discontinued 2 MG PO Daily at bedtime April 03, 2022 12:00am November 27, 2022 1:32pm take 0.5 tablet by mouth at bedt doroteo Cyproheptadine HCl - 4 MG Oral Tablet TAKE 0.5 TABLET Bedtime Quantity: 0 Refills: 0 Ordered: 25-Jan-2022 DO Active docusate sodium 50 mg oral capsule (20 sources) Start: 11-27-2022 End: 02-06-2023 take 1 capsule by mouth once daily Docusate Sodium (Stool Softener) 50 mg Capsule Discontinued 50 MG PO Daily November 26, 2022 11:00pm February 06, 2023 3:09pm Start: 09-20-2021 End: 11-27-2022 take 1 capsule by mouth at bedtime Docusate Sodium (Colace) 100 mg Capsule Discontinued 100 MG PO Bedtime September 19, 2021 11:00pm November 27, 2022 1:32pm doxycycline monohydrate 100 mg oral capsule (20 sources) Tetracycline-class Drug Start: 04-21-2017 End: 04-30-2017 take 100 mg by mouth twice daily Doxycycline Monohydrate Discontinued 100 MG PO Twice daily April 21, 2017 12:00am April 30, 2017 10:43am famotidine 40 mg oral tablet (20 sources) Histamine-2 Receptor Antagonist Start: 09-20-2021 End: 11-10-2021 take 40 mg by mouth at bedtime Famotidine Discontinued 40 MG PO Bedtime September 19, 2021 11:00pm November 10, 2021 11:37am ferrous sulfate 325 mg oral tablet (20 sources) Start: 12-24-2016 End: 05-12-2020 take 325 mg by mouth twice daily Ferrous Sulfate Discontinued 325 MG PO Twice daily December 23, 2016 11:00pm May 12, 2020 9:16am take 1 tablet by mouth once elisabet y ferrous sulfate 325 mg (65 mg elemental iron) oral delayed release tablet ; 1 tab(s) orally once a day Quantity: 0 Refills: 0 Ordered: 15-Jul-2015 Christiana Burt Status: Other Generic Substitution Allowed gabapentin 600 mg oral tablet (20 sources) Anti-epileptic Agent Start: 11-10-2020 End: 04-20-2022 take 1200 mg by mouth twice daily Gabapentin Discontinued 1200 MG PO Twice daily 360 January 16, 2022 8:30am April 20, 2022 8:42am Start: 07-22-2018 take 600 mg by mouth twice nadia ly Gabapentin Active 600 MG PO Twice daily July 22, 2018 7:43am Start: 07-22-2018 End: 09-20-2021 take 1200 mg by mouth twice daily Gabapentin Discontinued 1200 MG PO Twice daily July 21, 2018 11:00pm September 20, 2021 6:03pm take 1 tablet by fito th twice daily Gabapentin 600 MG 1 tablet Orally twice daily Active take 2 tablets by mo uth twice daily Gabapentin 600 MG 2 tablets Orally twice daily Active take 2 tablets by mo uth twice daily in the morning gabapentin (NEURONTIN) 400 MG capsule Take 600 mg by mouth in the morning and 600 mg in the evening. 2 TABS TWICE DAILY. 0 Active End: 08-22-2020 take 1 capsule by mouth three times daily, then take 4 capsules by mouth twice daily gabapentin (NEURONTIN) 100 MG capsule Take 100 mg by mouth 3 times daily. Takes 400 mg bid 0 08/22/2020 Discontinued (Therapy completed) take 1 capsule by mo uth twice daily gabapentin (NEURONTIN) 400 MG capsule Take 400 mg by mouth 2 times daily. 0 Active glyBURIDE 2.5 mg oral tablet (20 sources) Sulfonylurea Start: 10-11-2020 End: 04-03-2022 take 2.5 mg by mouth twice daily Glyburide Discontinued 2.5 MG PO Twice daily October 11, 2020 1:47pm April 03, 2022 8:09am Start: 07-28-2019 End: 10-11-2020 take 2.5 mg by mouth once daily Glyburide Discontinued 2.5 MG PO Daily July 27, 2019 11:00pm October 11, 2020 1:47pm 12 hr guaiFENesin 600 mg extended release oral tablet (20 sources) Start: 04-21-2017 End: 04-30-2017 take 1 tablet by mouth every twelve hours, then take 1 tablet by mouth every twelve hours Guaifenesin (Mucinex) 600 mg Tablet Extended Release 12hr Discontinued 600 MG PO Q12H April 21, 2017 12:00am April 30, 2017 10:44am Klor-Con M20 TBCR (12 sources) Klor-Con M20 TBC R Take as directed Quantity: 0 Refills: 0 Ordered: 06-Dec-2020 DO Active lidocaine 0.05 mg/mg medicated patch (14 sources) Antiarrhythmic, Amide Local Anesthetic Start: 06-18-2022 Lidocaine 5 % 1 patch daily Externally Once a day for 30 days Jun, Not-Taking Start: 08-25-2020 End: 08-25-2020 lidocaine PF 4 % injection 4 mL metOLazone 5 mg oral tablet (20 sources) Thiazide-like Diuretic Start: 01-25-2022 take 1 tablet by mouth once daily metOLazone 5 MG Oral Tablet TAKE 1 TABLET BY MOUTH DAILY 1/2 HOUR BEFORE BUMEX Quantity: 90 Refills: 3 Ordered: 01-Jun-2022 Viridiana Burgess DO Start : 25-Jan-2022 Active Start: 12-24-2016 End: 02-10-2023 take 5 mg by mouth once daily Metolazone Discontinued 5 MG PO Daily December 23, 2016 11:00pm February 10, 2023 2:49pm take 30 minutes before bumex take 2 tablets by mo [facility] in the morning metOLazone (ZAROXOLYN) 2.5 MG tablet Take 5 mg by mouth in the morning. 0 Active take 1 tablet by fito once daily metOLazone (ZAROXOLYN) 2.5 MG tablet Take 2.5 mg by mouth daily 0 Active Multivitamin (Multi-Day) Tablet (20 sources) Start: 12-24-2016 End: 05-12-2020 take 1 tablet by mouth once daily Multivitamin (Multi-Day) Tablet Discontinued 1 TAB PO Daily December 24, 2016 1:57pm May 12, 2020 9:17am Start: 12-24-2016 End: 05-12-2020 take 1 tablet by mouth once daily Multivitamin (Multi-Day) Tablet Discontinued 1 TAB PO Daily December 23, 2016 11:00pm May 12, 2020 9:17am Start: 12-24-2016 End: 05-12-2020 take 1 tablet by mouth once daily Multivitamin (Multi-Day) Tablet Discontinued 1 TAB PO Daily December 24, 2016 12:00am May 12, 2020 10:17am naproxen 500 mg oral tablet (20 sources) Nonsteroidal Anti-inflammatory Drug Start: 04-21-2017 End: 04-22-2017 take 500 mg by mouth twice daily Naproxen Discontinued 500 MG PO Twice daily April 21, 2017 12:00am April 22, 2017 3:44pm nitroglycerin 0.4 mg sublingual tablet (20 sources) Nitrate Vasodilator Start: 12-24-2016 End: 05-12-2020 Nitroglycerin (Nitrostat) 0.4 mg Tablet, Sublingual Discontinued 0.4 MG SUBLINGUAL every 5 to 15 minutes December 23, 2016 11:00pm May 12, 2020 9:17am oseltamivir 30 mg oral capsule (20 sources) Neuraminidase Inhibitor Start: 04-22-2017 End: 04-25-2017 take 1 capsule by mouth twice daily Oseltamivir (Tamiflu) 30 mg capsule Discontinued 30 MG PO Twice daily 08 18April 22, 2017 12:00am April 25, 2017 12:03am oxyCODONE hydrochloride 10 mg oral tablet (20 sources) Opioid Agonist Start: 12-24-2016 End: 02-15-2017 take 10 mg by mouth every four to six hours Oxycodone Discontinued 10 MG PO EVERY 4-6 HOURS December 23, 2016 11:00pm February 15, 2017 1:09pm pregabalin 50 mg oral capsule (20 sources) Start: 11-10-2020 End: 09-20-2021 take 50 mg by mouth three times daily Pregabalin Discontinued 50 MG PO Three times daily March 06, 2021 9:20am September 20, 2021 6:07pm Start: 12-24-2016 take 2 capsules by [facility] four times daily Pregabalin (Lyrica) 75 mg Capsule Active 150 MG PO Four times daily December 24, 2016 1:57pm Start: 12-24-2016 End: 11-10-2020 Pregabalin (Lyrica) 75 mg Ca psule Discontinued 50 MG PO Twice daily December 23, 2016 11:00pm November 10, 2020 10:27am take 1 capsule by mo ut once daily pregabalin (LYRICA) 150 MG capsule Take 150 mg by mouth nightly. 0 Active take 1 capsule by mo ut once daily at bedtime Lyrica 200 MG 1 capsule 1 to 3 hours before bedtime Orally Once a day Active take 1 capsule by mo ut twice daily Pregabalin 50 MG Oral Capsule TAKE 1 CAPSULE TWICE DAILY. Quantity: 0 Refills: 0 Ordered: 06-Dec-2020 DO Active Sennosides-Docusate Sodium 8.6-50 MG (10 sources) take 2 capsules by mouth once daily at bedtime as needed Sennosides-Docusate Sodium 8.6-50 MG 2 capsules at bedtime with a full glass of water as needed Orally Once a day Not-Taking/PRN take 2 capsules by m outh once daily at bedtime as needed Sennosides-Docusate Sodium 8.6-50 MG 2 c apsules at bedtime with a full glass of water as needed Orally Once a day Active simvastatin 10 mg oral tablet (20 sources) HMG-CoA Reductase Inhibitor Start: 01-22-2017 End: 04-21-2017 take 10 mg by mouth once daily in the evening Simvastatin Discontinued 10 MG PO Every evening January 22, 2017 12:00am April 21, 2017 8:27am Stool Softener TABS (20 sources) Stool Softener TABS TAKE 2TABLET DAILY DIRECTED. Quantity: 0 Refills: 0 Ordered: 25-Jan-2021 DO Active sulfamethoxazole 800 mg / trimethoprim 160 mg oral tablet (20 sources) Dihydrofolate Reductase Inhibitor Antibacterial, Sulfonamide Antimicrobial Start: 09-20-2021 End: 09-24-2021 take 1 tablet by mouth twice daily Sulfamethoxazole- Trimethoprim (Bactrim Ds) 800-160 mg Tablet Discontinued 1 TAB PO Twice daily September 19, 2021 11:00pm September 24, 2021 2:59pm traMADol hydrochloride 50 mg oral tablet (20 sources) Opioid Agonist Start: 07-28-2019 End: 11-10-2021 take 50 mg by mouth at bedtime Tramadol Discontinued 50 MG PO Bedtime September 21, 2021 11:00pm November 10, 2021 11:36am Start: 07-28-2019 take 100 mg by mouth four times daily Tramadol Active 100 MG PO Four times daily July 27, 2019 11:00pm Start: 07-28-2019 take 100 mg by mouth every six hours Tramadol Active 100 MG PO Q6H July 27, 2019 11:00pm take 2 tablets by mo uth four times daily as needed traMADol HCl 50 MG 2 tablet as needed Orally 4 times daily Active take 2 tablets by mo uth every eight hours traMADol HCl 50 MG 2 tablet as needed Orally 3 times a day Active Triamcinolone (20 sources) Corticosteroid Start: 01-05-2020 Kenalog -40 mg 20 Dec, 2019 40 mg 24 hr venlafaxine 75 mg extended release oral capsule (20 sources) Serotonin and Norepinephrine Reuptake Inhibitor Start: 12-24-2016 End: 01-22-2017 take 1 capsule by mouth once daily Venlafaxine (Effexor Xr) 75 mg Capsule,Extended Release 24hr Discontinued 75 MG PO Daily December 23, 2016 11:00pm January 22, 2017 10:12am take 1 tablet by mouth twice nadia ly Effexor 75 mg oral tablet ; 1 tab(s) orally 2 times a day Quantity: 0 Refills: 0 Ordered: 15-Jul-2015 UyJennifera Status: Other Generic Substitution Allowed Problems Active Problems Problem Classification Problem Date Documented Date Episodic/Chronic Abdominal hernia (20 sources) Hiatal hernia; Translations: [Diaphragmatic hernia without obstruction or gangrene] Episodic Acute myocardial infarction (20 sources) Myocardial infarction; Translations: [Non-ST elevation (NSTEMI) myocardial infarction] 07-28-2019 Chronic Alcohol-related disorders (10 sources) Alcohol abuse; Translations: [Alcohol abuse, uncomplicated] Chronic Anxiety disorders (20 sources) Claustrophobia; Translations: [Claustrophobia] Chronic Cardiac dysrhythmias (20 sources) Paroxysmal atrial fibrillation; Translations: [Persistent atrial fibrillation] Onset: 7 12-19-2020 Chronic Comment on above: AFIB Cardiac dysrhythmias (20 sources) Sinus bradycardia; Translations: [Other specified cardiac dysrhythmias] 02-06-2023 Episodic Cardiac dysrhythmias (4 sources) Cardiac dysrhythmias Onset: 7 Chronic kidney disease (20 sources) Chronic kidney disease stage 3; Translations: [Stage 3 chronic kidney disease, unspecified whether stage 3a or 3b CKD] 05-12-2020 Chronic Chronic kidney disease (8 sources) Chronic kidney disease; Translations: [Chronic kidney disease, stage 3a N18.31] Onset: 2 Resolved: 2 Chronic obstructive pulmonary disease and bronchiectasis (20 sources) Centriacinar emphysema; Translations: [Centrilobular emphysema] Onset: 1 Resolved: 2 05-19-2020 Chronic Chronic ulcer of skin (20 sources) Chronic ulcer of foot; Translations: [Non-pressure chronic ulcer of other part of left foot with unspecified severity] Onset: 2 Resolved: 2 Chronic Conduction disorders (20 sources) H/O: cardiac pacemaker in situ; Translations: [Presence of cardiac pacemaker] Onset: 3 Chronic Congestive heart failure; nonhypertensive (20 sources) Congestive heart failure; Translations: [Heart failure, unspecified] Onset: 2 Resolved: 2 Chronic Congestive heart failure; nonhypertensive (1 source) Congestive heart failure; nonhypertensive Onset: 8 Coronary atherosclerosis and other heart disease (20 sources) Coronary atherosclerosis; Translations: [Coronary atherosclerosis of [place] coronary artery] Onset: 3 02-13-2023 Chronic Coronary atherosclerosis and other heart disease (1 source) Coronary atherosclerosis and other heart disease Onset: 8 Diabetes mellitus with complications (20 sources) Type 2 diabetes mellitus; Translations: [Type 2 diabetes mellitus with other circulatory complications] Onset: 2 Resolved: 2 Chronic Diabetes mellitus with complications (1 source) Diabetes mellitus with complications Onset: 8 Diabetes mellitus without complication (20 sources) Latent autoimmune diabetes mellitus in adult; Translations: [Other specified diabetes mellitus without complications] Onset: 3 07-28-2019 Chronic Diseases of mouth; excluding dental (1 source) Other diseases of tongue Episodi c Disorders of lipid metabolism (20 sources) Hyperlipidemia; Translations: [Other and unspecified hyperlipidemia] Chronic Esophageal disorders (20 sources) Gastro-esophageal reflux disease with esophagitis; Translations: [Gastro-esophageal reflux disease with esophagitis] Onset: 2 Resolved: 2 Chronic Esophageal disorders (1 source) Esophageal disorders Onset: 8 Essential hypertension (20 sources) Hypertensive disorder; Translations: [Unspecified essential hypertension] Onset: 3 07-28-2019 Chronic Essential hypertension (1 source) Essential hypertension Onset: 7 Fluid and electrolyte disorders (20 sources) Hypokalemia; Translations: [Potassium disorder] Onset: 2 Resolved: 2 Episodic Gout and other crystal arthropathies (20 sources) Chronic gout without tophus; Translations: [Chronic gout, unspecified, without tophus (tophi)] Onset: 2 Resolved: 2 Chronic Immunizations and screening for infectious disease (2 sources) Observation and evaluation for suspected exposure to other biological agent; Translations: [COVID-19 ruled out by laboratory testing] Episodic Infective arthritis and osteomyelitis (except that caused by tuberculosis or sexually transmitted disease) (20 sources) Acute osteomyelitis of phalanx of toe; Translations: [Other acute osteomyelitis, left ankle and foot] Onset: 2 Resolved: 2 Chronic Influenza (20 sources) Influenza due to Influenza A virus; Translations: [Pneumonia and influenza] 07-28-2019 Episodic Lung disease due to external agents (20 sources) Extrinsic allergic alveolitis; Translations: [Hypersensitivity pneumonitis due to unspecified organic dust] Chronic Malaise and fatigue (13 sources) Fatigue; Translations: [Chronic fatigue, unspecified] Chronic Malaise and fatigue (20 sources) Asthenia; Translations: [Weakness] Onset: 3 02-06-2023 Episodic Mood disorders (13 sources) Moderate recurrent major depression; Translations: [Major depressive disorder, recurrent, moderate] Chronic Non-Hodgkin`s lymphoma (20 sources) Diffuse non-Hodgkin's lymphoma, large cell (clinical); Translations: [Diffuse large B-cell lymphoma, unspecified site] Onset: 3 07-28-2019 Chronic Non-Hodgkin`s lymphoma (20 sources) History of malignant lymphoma; Translations: [Personal history of other malignant neoplasms of lymphoid, hematopoietic and related tissues] Onset: 1 05-19-2020 Episodic Nonspecific chest pain (20 sources) Chest pain; Translations: [Chest pain, unspecified] 03-13-2019 Episodic Open wounds of extremities (20 sources) 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, initial encounter; Translations: [Amputated toe of left foot] Onset: 2 Resolved: 2 Chronic Other acquired deformities (20 sources) Spondylolisthesis; Translations: [Spondylolisthesis, cervical region] Episodic Other acquired deformities (1 source) Spondylolisthesis, cervical region Episodic Other aftercare (20 sources) Drug therapy finding; Translations: [Long-term (current) use of other medications] Episodic Other aftercare (2 sources) Encounter for follow-up examination after completed treatment for conditions other than malignant neoplasm Onset: 2 Resolved: 2 Episodic Other circulatory disease (20 sources) Device in situ; Translations: [Other specified cardiac device in situ] 01-09-2021 Chronic Other circulatory disease (3 sources) Presence of other cardiac implants and grafts; Translations: [Presence of Watchman left atrial appendage closure device] Onset: 3 Chronic Other circulatory disease (20 sources) Patient post angioplasty; Translations: [Other postprocedural status] Episodic Other circulatory disease (20 sources) History of clinical finding in subject; Translations: [Personal history of other diseases of circulatory system] Episodic Other circulatory disease (20 sources) H/O: atrial fibrillation; Translations: [Personal history of other diseases of circulatory system] Episodic Other circulatory disease (1 source) Other specified symptoms and signs involving the circulatory and respiratory systems; Translations: [Other specified symptoms and signs involving the circulatory and respiratory systems] Onset: 4 Episodic Other connective tissue disease (3 sources) Other specified soft tissue disorders; Translations: [Other specified soft tissue disorders] Onset: 3 Episodic Other diseases of veins and lymphatics (20 sources) Lymphedema of bilateral lower limbs; Translations: [Lymphedema, not elsewhere classified] 11-12-2019 Chronic Other diseases of veins and lymphatics (1 source) Lymphedema, not elsewhere classified; Translations: [Lymphedema, not elsewhere classified] Onset: 3 Chronic Other diseases of veins and lymphatics (20 sources) Venous insufficiency of leg; Translations: [Other specified disorders of veins] 11-12-2019 Episodic Other diseases of veins and lymphatics (20 sources) Peripheral venous insufficiency; Translations: [Venous insufficiency (chronic) (peripheral)] Episodic Other diseases of veins and lymphatics (9 sources) Venous insufficiency (chronic) (peripheral) Onset: 2 Resolved: 2 Episodic Other diseases of veins and lymphatics (1 source) Lymphedema of bilateral lower limbs; Translations: [Lymphedema of both lower extremities] Other ear and sense organ disorders (2 sources) Bilateral tinnitus; Translations: [Tinnitus, bilateral] Episodic Other ear and sense organ disorders (1 source) Tinnitus, bilateral Episodic Other endocrine disorders (10 sources) Primary hyperparathyroidism; Translations: [Primary hyperparathyroidism] Chronic Other endocrine disorders (3 sources) Primary hyperparathyroidism Chronic Other gastrointestinal disorders (13 sources) Dysphagia; Translations: [Dysphagia, unspecified] Episodic Other hereditary and degenerative nervous system conditions (20 sources) Restless legs; Translations: [Restless legs syndrome] Chronic Other hereditary and degenerative nervous system conditions (5 sources) Restless legs syndrome; Translations: [Restless legs syndrome] Onset: 3 Chronic Other lower respiratory disease (5 sources) Interstitial lung disease; Translations: [Interstitial pulmonary disease, unspecified] Onset: 1 05-19-2020 Chronic Other lower respiratory disease (20 sources) Hypoxia; Translations: [Hypoxemia] 07-28-2019 Episodic Other lower respiratory disease (20 sources) Computed tomography result abnormal; Translations: [Other nonspecific abnormal finding of lung field] Episodic Other lower respiratory disease (20 sources) Lung mass; Translations: [Swelling, mass, or lump in chest] Episodic Other lower respiratory disease (13 sources) Hemorrhage from respiratory passages, unspecified; Translations: [Hemorrhage from respiratory passages, unspecified] Episodic Other lower respiratory disease (20 sources) Lung field abnormal; Translations: [Other nonspecific abnormal finding of lung field] Episodic Other nervous system disorders (20 sources) Peripheral nerve disease ; Translations: [Polyneuropathy, unspecified] 07-28-2019 Chronic Other nervous system disorders (20 sources) Polyneuropathy, unspecified; Translations: [Unspecified hereditary and idiopathic peripheral neuropathy] 09-24-2021 Chronic Other nervous system disorders (20 sources) Chronic pain; Translations: [Other chronic pain] Chronic Other nervous system disorders (6 sources) Other chronic pain Onset: 2 Resolved: 2 Chronic Other nervous system disorders (20 sources) Aphasia; Translations: [Aphasia] Chronic Other nervous system disorders (1 source) Aphasia Chronic Other nervous system disorders (20 sources) Polyneuropathy; Translations: [Polyneuropathy, unspecified] Chronic Other nervous system disorders (1 source) Other chronic pain; Translations: [Other chronic pain] Onset: 3 Chronic Other nervous system disorders (5 sources) Acute postoperative pain; Translations: [Other acute postprocedural pain] 02-15-2023 Episodic Other nervous system disorders (10 sources) Spasmodic movement; Translations: [Fasciculation] Episodic Other nervous system disorders (1 source) Fasciculation Episodic Other nervous system disorders (1 source) Other acute postprocedural pain; Translations: [Other acute postprocedural pain] Onset: 3 Episodic Other non-traumatic joint disorders (20 sources) Joint pain; Translations: [Pain in unspecified joint] 07-28-2019 Episodic Other non-traumatic joint disorders (12 sources) Pain in unspecified joint; Translations: [Pain in joint, site unspecified] 11-10-2021 Episodic Other nutritional; endocrine; and metabolic disorders (20 sources) Obesity, unspecified; Translations: [Obesity, unspecified] Onset: 3 11-10-2021 Chronic Other nutritional; endocrine; and metabolic disorders (19 sources) Hypercalcemia; Translations: [Hypercalcemia] Onset: 3 11-10-2021 Chronic Other nutritional; endocrine; and metabolic disorders (20 sources) Hypercalcemia; Translations: [Hypercalcemia] 07-22-2018 Chronic Other nutritional; endocrine; and metabolic disorders (20 sources) Body mass index 30+ - obesity; Translations: [Obesity, unspecified] 01-27-2019 Chronic Other nutritional; endocrine; and metabolic disorders (20 sources) Obesity; Translations: [Obesity, unspecified] Chronic Other nutritional; endocrine; and metabolic disorders (20 sources) Hypomagnesemia; Translations: [Hypomagnesemia] Onset: 3 02-06-2023 Chronic Other nutritional; endocrine; and metabolic disorders (8 sources) Hypomagnesemia; Translations: [Disorders of magnesium metabolism] 02-06-2023 Chronic Other nutritional; endocrine; and metabolic disorders (13 sources) Hypocalcemia; Translations: [Hypocalcemia] Chronic Other nutritional; endocrine; and metabolic disorders (1 source) Hypocalcemia Chronic Other nutritional; endocrine; and metabolic disorders (20 sources) H/O: metabolic disorder; Translations: [Personal history of other endocrine, metabolic, and immunity disorders] Episodic Other screening for suspected conditions (not mental disorders or infectious disease) (20 sources) Pulmonary function studies abnormal; Translations: [Nonspecific abnormal results of pulmonary function study] Episodic Other skin disorders (20 sources) Hemosiderin pigmentation of lower limb due to varicose veins of lower limb; Translations: [Other specified disorders of pigmentation] 11-12-2019 Episodic Other skin disorders (6 sources) Other specified disorders of pigmentation; Translations: [Dyschromia, unspecified] 09-24-2021 Episodic Mary-; endo-; and myocarditis; cardiomyopathy (except that caused by tuberculosis or sexually transmitted disease) (20 sources) Hypertrophic obstructive cardiomyopathy; 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] Onset: 2 Resolved: 2 Chronic Peripheral and visceral atherosclerosis (1 source) Peripheral vascular disease, unspecified; Translations: [Peripheral vascular disease, unspecified] Onset: 3 Chronic Pleurisy; pneumothorax; pulmonary collapse (20 sources) Atelectasis; Translations: [Atelectasis] Episodic Pneumonia (except that caused by tuberculosis or sexually transmitted disease) (20 sources) Pneumonia; Translations: [Pneumonia, unspecified organism] 07-28-2019 Episodic Residual codes; unclassified (5 sources) Obstructive sleep apnea syndrome; Translations: [Obstructive sleep apnea (adult) (pediatric)] Onset: 1 05-20-2020 Chronic Residual codes; unclassified (20 sources) Sleep apnea; Translations: [Unspecified sleep apnea] Chronic Residual codes; unclassified (1 source) Swelling - edema - symptom; Translations: [Edema] Episodic Residual codes; unclassified (20 sources) Edema; Translations: [Edema] 11-12-2019 Episodic Residual codes; unclassified (20 sources) History of chest pain; Translations: [Personal history of other specified diseases] Episodic Residual codes; unclassified (20 sources) H/O: obesity; Translations: [Personal history of other specified diseases] Episodic Residual codes; unclassified (20 sources) History of palpitations; Translations: [Personal history of other diseases of circulatory system] Episodic Residual codes; unclassified (20 sources) H/O: major abdominal surgery; Translations: [Other specified postprocedural states] Episodic Residual codes; unclassified (4 sources) Edema, unspecified; Translations: [Edema] 09-24-2021 Episodic Residual codes; unclassified (20 sources) Amnesia; Translations: [Other amnesia] Episodic Residual codes; unclassified (17 sources) Disturbance in sleep behavior; Translations: [Sleep disorder, unspecified] Episodic Residual codes; unclassified (1 source) Sleep disorder, unspecified Episodic Residual codes; unclassified (1 source) Localized edema Episodic Residual codes; unclassified (2 sources) Insomnia; Translations: [Insomnia, unspecified] Episodic Residual codes; unclassified (1 source) Insomnia, unspecified Episodic Screening and history of mental health and substance abuse codes (17 sources) Ex-smoker; Translations: [Personal history of tobacco use] Episodic Comment on above: Quit in 2006; Skin and subcutaneous tissue infections (20 sources) Cellulitis of foot; Translations: [Cellulitis of unspecified part of limb] 11-10-2021 Episodic Spondylosis; intervertebral disc disorders; other back problems (20 sources) Pain in cervical spine; Translations: [Cervical disc disorder, unspecified, unspecified cervical region] Onset: 2 Resolved: 2 Chronic Spondylosis; intervertebral disc disorders; other back problems (4 sources) Cervicalgia; Translations: [Radiculopathy, cervical region] Onset: 2 Resolved: 2 Episodic Substance-related disorders (1 source) Opioid use, unspecified, uncomplicated Episodic Thyroid disorders (20 sources) Acquired hypothyroidism; Translations: [Hypothyroidism, unspecified] Onset: 2 Resolved: 2 Chronic Unclassified (1 source) Disorder of thyroid, unspecified / E07.9(ICD-9) Onset: 8 Unclassified (1 source) Sleep apnea, unspecified / G47.30(ICD-9) Onset: 8 Unclassified (1 source) Morbid (severe) obesity due to excess calories / E66.01(ICD-9) Onset: 8 Unclassified (1 source) Body mass index (BMI) 38.0-38.9, adult / Z68.38(ICD-9) Onset: 8 Unclassified (1 source) Obstructive hypertrophic cardiomyopathy / I42.1(ICD-9) Onset: 8 Unclassified (1 source) 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 / Z79.82(ICD-9) Onset: 8 Unclassified (1 source) Palpitations / R00.2(ICD-9) Onset: 7 Unclassified (1 source) Shortness of breath / R06.02(ICD-9) Onset: 7 Unclassified (1 source) Hypertensive heart disease with heart failure / I11.0(ICD-9) Onset: 8 Unclassified (1 source) Athscl heart disease of [place] coronary artery w/o ang pctrs / I25.10(ICD-9) Onset: 7 Unclassified (1 source) Presence of coronary angioplasty implant and graft / Z95.5(ICD-9) Onset: 7 Unclassified (1 source) Other hypertrophic cardiomyopathy / I42.2(ICD-9) Onset: 7 Unclassified (1 source) Personal history of other specified conditions / Z87.898(ICD-9) Onset: 7 Unclassified (1 source) Alcohol abuse, uncomplicated / F10.10(ICD-9) Onset: 7 Unclassified (1 source) Overweight / E66.3(ICD-9) Onset: 7 Unclassified (1 source) Body mass index (BMI) 37.0-37.9, adult / Z68.37(ICD-9) Onset: 7 Unclassified (1 source) Unspecified osteoarthritis, unspecified site / M19.90(ICD-9) Onset: 7 Unclassified (1 source) Personal history of nicotine dependence / Z87.891(ICD-9) Onset: 8 Unclassified (1 source) FPC (current) use of anticoagulants / Z79.01(ICD-9) Onset: 8 Unclassified (1 source) Patient encounter status; Translations: [Examination of participant or control in clinical research] Unclassified (2 sources) Primary hypertension 01-10-2021 Unclassified (1 source) FU WATCHMAN PROCEDURE 01/03 [facility] 12-19-2020 Comment on above: WATCHMAN PROCEDUR E 01/03 [facility] Unclassified (1 source) Presence of Watchman left atrial appendage closure device 01-09-2021 Unclassified (1 source) Encounter for pre-operative examination 01-10-2021 Unclassified (8 sources) Inflammatory disorder; Translations: [Inflammation] 02-26-2023 Unclassified (1 source) Unspecified foreign body in respiratory tract, part unspecified causing other injury, initial encounter; Translations: [Unspecified foreign body in respiratory tract, part unspecified causing other injury, initial encounter] Onset: 4 Unclassified (1 source) Non-pressure chronic ulcer of other part of left foot with unspecified severity; Translations: [Non-pressure chronic ulcer of other part of left foot with unspecified severity] Onset: 4 Unclassified (1 source) Type 2 diabetes mellitus with other circulatory complications; Translations: [Type 2 diabetes mellitus with other circulatory complications] Onset: 3 Unclassified (1 source) Non-pressure chronic ulcer of other part of left foot with fat layer exposed; Translations: [Non-pressure chronic ulcer of other part of left foot with fat layer exposed] Onset: 3 Unclassified (1 source) 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, part unspecified; Translations: [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, part unspecified] Onset: 3 Unclassified (1 source) Bradycardia, unspecified; Translations: [Bradycardia, unspecified] Onset: 3 Unclassified (1 source) Other acute osteomyelitis, left ankle and foot; Translations: [Other acute osteomyelitis, left ankle and foot] Onset: 3 Unclassified (1 source) Dysphagia, pharyngoesophageal phase; Translations: [Dysphagia, pharyngoesophageal phase] Onset: 3 Unclassified (1 source) Diffuse large B-cell lymphoma, extranodal and solid organ sites; Translations: [Diffuse large B-cell lymphoma, extranodal and solid organ sites] Onset: 3 Varicose veins of lower extremity (20 sources) Venous ulcer of leg; Translations: [Varicose veins of left lower extremity with ulcer of unspecified site] 11-17-2019 Episodic Varicose veins of lower extremity (1 source) Hemosiderin pigmentation of lower limb due to varicose veins of lower limb; Translations: [Hemosiderin pigmentation of lower extremity due to varicose veins] Viral infection (13 sources) Herpes zoster; Translations: [Zoster without complications] Episodic Past or Other Problems Problem Classification Problem Date Documented Da te Episodic/Chronic Conditions associated with dizziness or vertigo (1 source) Dizziness and giddiness Onset: 08-22-2021 Resolved: 08-22-2021 Episodic Other lower respiratory disease (7 sources) Hemoptysis; Translations: [Hemoptysis] Onset: 05-19-2020 05-19-2020 Episodic Other lower respiratory disease (20 sources) H/O: respiratory disease; Translations: [Personal history of other diseases of respiratory system] Resolved: 01-25-2021 Episodic Other lower respiratory disease (1 source) Cough Episodic Other lower respiratory disease (2 sources) Dyspnea Episodic Other lower respiratory disease (3 sources) Shortness of breath; Translations: [Shortness of breath] Onset: 08-28-2022 Episodic Other non-traumatic joint disorders (1 source) Pain in right shoulder Onset: 08-22-2021 Resolved: 08-22-2021 Episodic Residual codes; unclassified (5 sources) History of drug therapy; Translations: [Personal history of other drug therapy] Onset: 05-19-2020 05-19-2020 Episodic Residual codes; unclassified (20 sources) History of bradycardia; Translations: [Personal history of other diseases of circulatory system] Resolved: 01-25-2021 Episodic Residual codes; unclassified (3 sources) Other amnesia; Translations: [Other amnesia] Onset: 09-28-2022 Episodic Unclassified (8 sources) Other persistent atrial fibrillation Onset: 06-12-2021 Resolved: 10-30-2021 Unclassified (15 sources) Amputated toe of left foot; Translations: [Toe amputation status, left] Results Test Name Value Interpretation Reference Range Facility Alanine aminotransferase [En zymatic activity/volume] in Serum or PlasmaOrdered By: Geeta Dumont on 04-04-2023 ALT [Catalytic activity/Vol] 16 U/L 7-52 [facility] Albumin [Mass/volume] in Ser um or Plasma by Bromocresol green (BCG) dye binding methoOrdered By: Geeta Dumont on 04-04-2023 Albumin BCG dye [Mass/Vol] 4.6 g/dL 3.5-5.7 [facility] Alkaline phosphatase [Enzyma tic activity/volume] in Serum or PlasmaOrdered By: Geeta Dumont on 04-04-2023 ALP [Catalytic activity/Vol] 112 U/L 34-104 [facility] Aspartate aminotransferase [ Enzymatic activity/volume] in Serum or PlasmaOrdered By: Geeta Dumont on 04-04-2023 AST [Catalytic activity/Vol] 22 U/L 13-39 [facility] Bilirubin.total [Mass/volume ] in Serum or PlasmaOrdered By: Geeta Dumont on 04-04-2023 Bilirubin [Mass/Vol] 0.7 mg/dL 0.3-1.0 [facility] Calcium [Mass/volume] in Ser um or PlasmaOrdered By: Geeta Dumont on 04-04-2023 Calcium [Mass/Vol] 11.2 mg/dL 8.6-10.3 [facility] Carbon dioxide, total [Moles /volume] in Serum or PlasmaOrdered By: Geeta Dumont on 04-04-2023 CO2 [Moles/Vol] 30.5 mmol/L 21.0-31.0 [facility] Chloride [Moles/volume] in S [place] or PlasmaOrdered By: Geeta Dumont on 04-04-2023 Chloride [Moles/Vol] 102 mmol/L 98-107 [facility] Comprehensive Metabolic Pane anny 04-04-2023 Albumin [Mass/Vol] 4.6 g/dL Normal 3.5-5.7 [facility] Comment on above: Order Comment: Reaso n for Exam Chronic kidney disease, stage 3a Performed By: #### C MP ####[facility] [id number] [place] [address] [facility] Albumin/Globulin [Mass ratio] 1.6 {ratio} Normal [facility] Comment on above: Order Comment: Reaso n for Exam Chronic kidney disease, stage 3a Performed By: #### C MP ####[facility] [id number] [place] [address] [facility] ALP [Catalytic activity/Vol] 112 U/L High 34-104 [facility] Comment on above: Order Comment: Reaso n for Exam Chronic kidney disease, stage 3a Result Comment: PERF ORMED BY:[place] [address] [place] [id number] MEDICAL DIRECTORAPRIL VEGA M.D. Performed By: #### C MP ####[address] [address] [facility] ALT [Catalytic activity/Vol] 16 U/L Normal 7-52 [facility] Comment on above: Order Comment: Reaso n for Exam Chronic kidney disease, stage 3a Performed By: #### C MP ####[address] [address] [facility] Anion gap [Moles/Vol] 10.0 mmol/L Normal 6.0-15.0 [facility] Comment on above: Order Comment: Reaso n for Exam Chronic kidney disease, stage 3a Performed By: #### C MP ####[address] [address] [facility] AST [Catalytic activity/Vol] 22 U/L Normal 13-39 [facility] Comment on above: Order Comment: Reaso n for Exam Chronic kidney disease, stage 3a Performed By: #### C MP ####[address] [address] [facility] Bilirubin [Mass/Vol] 0.7 mg/dL Normal 0.3-1.0 [facility] Comment on above: Order Comment: Reaso n for Exam Chronic kidney disease, stage 3a Performed By: #### C MP ####[address] [address] [facility] Calcium [Mass/Vol] 11.2 mg/dL High 8.6-10.3 [facility] Comment on above: Order Comment: Reaso n for Exam Chronic kidney disease, stage 3a Performed By: #### C MP ####[address] [address] [facility] Chloride [Moles/Vol] 102 mmol/L Normal 98-107 [facility] Comment on above: Order Comment: Reaso n for Exam Chronic kidney disease, stage 3a Performed By: #### C MP ####[address] [place] [address] [facility] CO2 [Moles/Vol] 30.5 mmol/L Normal 21.0-31.0 [facility] Comment on above: Order Comment: Reaso n for Exam Chronic kidney disease, stage 3a Performed By: #### C MP ####[address] [address] [facility] Creatinine [Mass/Vol] 1.49 mg/dL High 0.70-1.30 [facility] Comment on above: Order Comment: Reaso n for Exam Chronic kidney disease, stage 3a Performed By: #### C MP ####[place] [id number] [facility] GFR/1.73 sq M.predicted MDRD (S/P/Bld) [Vol rate/Area] 51.759 mL/min/{1.73_m2} Normal [facility] Comment on above: Order Comment: Reaso n for Exam Chronic kidney disease, stage 3a Performed By: #### C MP ####[address] [address] [facility] Globulin (S) [Mass/Vol] 2.8 g/dL [facility] Comment on above: Order Comment: Reaso n for Exam Chronic kidney disease, stage 3a Performed By: #### C MP ####[address] [address] [facility] Glucose [Mass/Vol] 169 mg/dL High 70-100 [facility] Comment on above: Order Comment: Reaso n for Exam Chronic kidney disease, stage 3a Result Comment: [place] Glucose Reference Range is dependent on time and content of last meal. Glucose of more than 200 mg/dL in a nonstressed, ambulatory subject supports the diagnosis of Diabetes Mellitus. ADA recommended reference range Performed By: #### C MP ####[address] [address] [facility] Potassium [Moles/Vol] 4.5 mmol/L Normal 3.5-5.1 [facility] Comment on above: Order Comment: Reaso n for Exam Chronic kidney disease, stage 3a Performed By: #### C MP ####[address] [place] [address] [facility] Protein [Mass/Vol] 7.4 g/dL Normal 6.4-8.9 [facility] Comment on above: Order Comment: Reaso n for Exam Chronic kidney disease, stage 3a Performed By: #### C MP ####[address] [place] [id number] [facility] Sodium [Moles/Vol] 138 mmol/L Normal 136-145 [facility] Comment on above: Order Comment: Reaso n for Exam Chronic kidney disease, stage 3a Performed By: #### C MP ####[address] [place] [id number] [facility] Urea nitrogen [Mass/Vol] 31 mg/dL High 7-25 [facility] Comment on above: Order Comment: Reaso n for Exam Chronic kidney disease, stage 3a Performed By: #### C MP ####[id number] [facility] Creatinine [Mass/volume] in Serum or PlasmaOrdered By: Geeta Dumont on 04-04-2023 Creatinine [Mass/Vol] 1.49 mg/dL 0.70-1.30 [facility] Globulin Calc (S) [Mass/Vol] Ordered By: Geeta Dumont on 04-04-2023 Globulin (S) [Mass/Vol] 2.8 g/dL [facility] Glucose [Mass/volume] in Ser um or PlasmaOrdered By: Geeta Dumont on 04-04-2023 Glucose [Mass/Vol] 169 mg/dL 70-100 [facility] Comment on above: ADA recommended refe rence rangeRandom Glucose Reference Range is dependent on time and content of last meal. Glucose of more than 200 mg/dL in a nonstressed, ambulatory subject supports the diagnosis of Diabetes Mellitus. No Panel InformationOrdered By: Geeta Dumont on 04-04-2023 Estimated GFR (CKD-EPI) 51.759 mL/Min [facility] Creatinine Clearance (Chem N/A [facility] Potassium [Moles/volume] in Serum or PlasmaOrdered By: Geeta Dumont on 04-04-2023 Potassium [Moles/Vol] 4.5 mmol/L 3.5-5.1 [facility] Protein [Mass/volume] in Ser um or PlasmaOrdered By: Geeta Dumont on 04-04-2023 Protein [Mass/Vol] 7.4 g/dL 6.4-8.9 [facility] Serum or plasma albumin/glob ulin mass ratioOrdered By: Geeta Dumont on 04-04-2023 Albumin/Globulin [Mass ratio] 1.6 {ratio} [facility] Serum or plasma anion gap de terminationOrdered By: Geeta Dumont on 04-04-2023 Anion gap [Moles/Vol] 10.0 mmol/L 6.0-15.0 [facility] Sodium [Moles/volume] in Ser um or PlasmaOrdered By: Geeta Dumont on 04-04-2023 Sodium [Moles/Vol] 138 mmol/L 136-145 [facility] Urea nitrogen [Mass/volume] in Serum or PlasmaOrdered By: Geeta Dumont on 04-04-2023 Urea nitrogen [Mass/Vol] 31 mg/dL 7-25 [facility] US arterial pvr rest Tayo US arterial pvr rest LE Normal [facility] MR foot LT wo conon 03-20-19 24 MR foot LT wo con Normal [facility] XR pre/post mri xrayon 03-20 XR pre/post mri xray Normal [facility] A1C with Estimated Average G luon 03-07-2023 Glucose [Mass/Vol] 180 mg/dL Normal [facility] Comment on above: Order Comment: Reaso n for 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 Result Comment: PERF ORMED BY:[facility] [place], [place] [phone] MEDICAL DIRECTORAPRIL VEGA M.D. Performed By: #### C MP, A1C WTH eA, LIPID, CBC ####[facility] [place] [id number] [facility] HbA1c (Bld) [Mass fraction] 7.9 % High 4.3-5.6 [facility] Comment on above: Order Comment: Reaso n for 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 Result Comment: Incr eased risk for diabetes: 5.7 - 6.4 diabetes: >6.4 glycemic control for adults with diabetes: <7.0 Performed By: #### C MP, A1C WTH eA, LIPID, CBC ####[facility] [id number] [place] [id number] [facility] Alanine aminotransferase [En zymatic activity/volume] in Serum or PlasmaOrdered By: Geeta Dumont on 03-07-2023 ALT [Catalytic activity/Vol] 17 U/L 7-52 [facility] Albumin [Mass/volume] in Ser um or Plasma by Bromocresol green (BCG) dye binding methoOrdered By: Geeta Dumont on 03-07-2023 Albumin BCG dye [Mass/Vol] 4.3 g/dL 3.5-5.7 [facility] Alkaline phosphatase [Enzyma tic activity/volume] in Serum or PlasmaOrdered By: Geeta Dumont on 03-07-2023 ALP [Catalytic activity/Vol] 119 U/L 34-104 [facility] Aspartate aminotransferase [ Enzymatic activity/volume] in Serum or PlasmaOrdered By: Geeta Dumont on 03-07-2023 AST [Catalytic activity/Vol] 22 U/L 13-39 [facility] Basophils Auto (Bld) [#/Vol] Ordered By: Geeta Dumont on 03-07-2023 Basophils (Bld) [#/Vol] 0.1 10*3/uL 0.0-0.2 [facility] Basophils/100 WBC Auto (Bld) Ordered By: Geeta Dumont on 03-07-2023 Basophils/100 WBC (Bld) 0.9 % . [facility] Bilirubin.total [Mass/volume ] in Serum or PlasmaOrdered By: Geeta Dumont on 03-07-2023 Bilirubin [Mass/Vol] 0.7 mg/dL 0.3-1.0 [facility] Calcium [Mass/volume] in Ser um or PlasmaOrdered By: Geeta Dumont on 03-07-2023 Calcium [Mass/Vol] 11.2 mg/dL 8.6-10.3 [facility] Carbon dioxide, total [Moles /volume] in Serum or PlasmaOrdered By: Geeta Dumont on 03-07-2023 CO2 [Moles/Vol] 28.3 mmol/L 21.0-31.0 [facility] Chloride [Moles/volume] in S [place] or PlasmaOrdered By: Geeta Dumont on 03-07-2023 Chloride [Moles/Vol] 103 mmol/L 98-107 [facility] Cholesterol [Mass/volume] in Serum or PlasmaOrdered By: Geeta Dumont on 03-07-2023 Cholesterol [Mass/Vol] 148 mg/dL 140-200 [facility] Comment on above: Chol less than 200 m g/dl low riskChol 201-239 mg/dl borderline riskChol 240 mg/dl and greater high risk Cholesterol in LDL Calc [Mas s/Vol]Ordered By: Geeta Dumont on 03-07-2023 Cholesterol in LDL [Mass/Vol] 76 mg/dL 0-100 [facility] Comment on above: LDL ATP III CLASSIFI CATIONLDL less than 100 mg/dL OptimalLDL 100-129 mg/dL Near or above optimalLDL 130-159 mg/dL Borderline highLDL 160-189 mg/dL HighLDL greater than 189 mg/dL Very high Cholesterol in VLDL Calc [Ma ss/Vol]Ordered By: Geeta Dumont on 03-07-2023 Cholesterol in VLDL [Mass/Vol] 29 mg/dL [facility] Complete Blood Count Auto Di ffon 03-07-2023 Basophils (Bld) [#/Vol] 0.1 10*3/uL Normal 0.0-0.2 [facility] Comment on above: Order Comment: Reaso n for Exam Electrolyte and fluid disorder;Chronic kidney disease, stage Result Comment: PERF ORMED BY:[facility] [place] [place], [place] [phone] MEDICAL DIRECTORAPRIL VEGA M.D. Performed By: #### C MP, A1C WTH eA, LIPID, CBC ####[address] Basophils/100 WBC (Bld) 0.9 % Normal . [facility] Comment on above: Order Comment: Reaso n for Exam Electrolyte and fluid disorder;Chronic kidney disease, stage Performed By: #### C MP, A1C WTH eA, LIPID, CBC ####[address] Eosinophils (Bld) [#/Vol] 0.5 10*3/uL High 0.0-0.45 [facility] Comment on above: Order Comment: Reaso n for Exam Electrolyte and fluid disorder;Chronic kidney disease, stage Performed By: #### C MP, A1C WTH eA, LIPID, CBC ####[address] Eosinophils/100 WBC (Bld) 6.3 % Normal . [facility] Comment on above: Order Comment: Reaso n for Exam Electrolyte and fluid disorder;Chronic kidney disease, stage Performed By: #### C MP, A1C WTH eA, LIPID, CBC ####[address] Erythrocyte distribution width (RBC) [Ratio] 15.8 % High 12.0-14.8 [facility] Comment on above: Order Comment: Reaso n for Exam Electrolyte and fluid disorder;Chronic kidney disease, stage Performed By: #### C MP, A1C WTH eA, LIPID, CBC ####[address] Hematocrit (Bld) [Volume fraction] 40.4 % Normal 38.8-50.0 [facility] Comment on above: Order Comment: Reaso n for Exam Electrolyte and fluid disorder;Chronic kidney disease, stage Performed By: #### C MP, A1C WTH eA, LIPID, CBC ####[address] Hemoglobin (Bld) [Mass/Vol] 13.1 g/dL Normal 13.0-17.0 [facility] Comment on above: Order Comment: Reaso n for Exam Electrolyte and fluid disorder;Chronic kidney disease, stage Performed By: #### C MP, A1C WTH eA, LIPID, CBC ####[address] Lymphocytes (Bld) [#/Vol] 1.2 10*3/uL Normal 1.00-4.8 [facility] Comment on above: Order Comment: Reaso n for Exam Electrolyte and fluid disorder;Chronic kidney disease, stage Performed By: #### C MP, A1C WTH eA, LIPID, CBC ####[address] Lymphocytes/100 WBC (Bld) 15.3 % Normal . [facility] Comment on above: Order Comment: Reaso n for Exam Electrolyte and fluid disorder;Chronic kidney disease, stage Performed By: #### C MP, A1C WTH eA, LIPID, CBC ####[address] MCH (RBC) [Entitic mass] 27.3 pg Low 27.5-35.2 [facility] Comment on above: Order Comment: Reaso n for Exam Electrolyte and fluid disorder;Chronic kidney disease, stage Performed By: #### C MP, A1C WTH eA, LIPID, CBC ####[address] MCV (RBC) [Entitic vol] 84.1 fL Normal 83.5-101 [facility] Comment on above: Order Comment: Reaso n for Exam Electrolyte and fluid disorder;Chronic kidney disease, stage Performed By: #### C MP, A1C WTH eA, LIPID, CBC ####[address] Mean Corpuscular HGB Conc 32.4 g/dL Low 32.5-35.6 [facility] Comment on above: Order Comment: Reaso n for Exam Electrolyte and fluid disorder;Chronic kidney disease, stage Performed By: #### C MP, A1C WTH eA, LIPID, CBC ####[address] Monocytes (Bld) [#/Vol] 1.1 10*3/uL High 0.0-0.8 [facility] Comment on above: Order Comment: Reaso n for Exam Electrolyte and fluid disorder;Chronic kidney disease, stage Performed By: #### C MP, A1C WTH eA, LIPID, CBC ####[address] Monocytes/100 WBC (Bld) 14.1 % Normal . [facility] Comment on above: Order Comment: Reaso n for Exam Electrolyte and fluid disorder;Chronic kidney disease, stage Performed By: #### C MP, A1C WTH eA, LIPID, CBC ####[address] Neutrophils (Bld) [#/Vol] 4.9 10*3/uL Normal 1.8-7.7 [facility] Comment on above: Order Comment: Reaso n for Exam Electrolyte and fluid disorder;Chronic kidney disease, stage Performed By: #### C MP, A1C WTH eA, LIPID, CBC ####[address] Neutrophils/100 WBC (Bld) 63.4 % Normal . [facility] Comment on above: Order Comment: Reaso n for Exam Electrolyte and fluid disorder;Chronic kidney disease, stage Performed By: #### C MP, A1C WTH eA, LIPID, CBC ####[address] NRBC% 0.1 /100{WBC} Normal 0-0.5 [facility] Comment on above: Order Comment: Reaso n for Exam Electrolyte and fluid disorder;Chronic kidney disease, stage Performed By: #### C MP, A1C WTH eA, LIPID, CBC ####[address] Platelet mean volume (Bld) [Entitic vol] 6.8 fL Normal 6.6-10.1 [facility] Comment on above: Order Comment: Reaso n for Exam Electrolyte and fluid disorder;Chronic kidney disease, stage Performed By: #### C MP, A1C WTH eA, LIPID, CBC ####[address] Platelets (Bld) [#/Vol] 280 10*3/uL Normal 150-450 [facility] Comment on above: Order Comment: Reaso n for Exam Electrolyte and fluid disorder;Chronic kidney disease, stage Performed By: #### C MP, A1C WTH eA, LIPID, CBC ####[address] RBC (Bld) [#/Vol] 4.81 10*6/uL Normal 3.90-5.60 [facility] Comment on above: Order Comment: Reaso n for Exam Electrolyte and fluid disorder;Chronic kidney disease, stage Performed By: #### C MP, A1C WTH eA, LIPID, CBC ####[address] WBC (Bld) [#/Vol] 7.8 10*3/uL Normal 4.1-10.5 [facility] Comment on above: Order Comment: Reaso n for Exam Electrolyte and fluid disorder;Chronic kidney disease, stage Performed By: #### C MP, A1C WTH eA, LIPID, CBC ####[address] Comprehensive Metabolic Pane anny 03-07-2023 Albumin [Mass/Vol] 4.3 g/dL Normal 3.5-5.7 [facility] Comment on above: Order Comment: Reaso n for Exam Electrolyte and fluid disorder;Chronic kidney disease, stage 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 Performed By: #### C MP, A1C WTH eA, LIPID, CBC ####[address] Albumin/Globulin [Mass ratio] 1.5 {ratio} Normal [facility] Comment on above: Order Comment: Reaso n for Exam Electrolyte and fluid disorder;Chronic kidney disease, stage 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 Performed By: #### C MP, A1C WTH eA, LIPID, CBC ####[facility] [place] [address] [facility] ALP [Catalytic activity/Vol] 119 U/L High 34-104 [facility] Comment on above: Order Comment: Reaso n for Exam Electrolyte and fluid disorder;Chronic kidney disease, stage 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 Performed By: #### C MP, A1C WTH eA, LIPID, CBC ####[address] [address] [facility] ALT [Catalytic activity/Vol] 17 U/L Normal 7-52 [facility] Comment on above: Order Comment: Reaso n for Exam Electrolyte and fluid disorder;Chronic kidney disease, stage 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 Performed By: #### C MP, A1C WTH eA, LIPID, CBC ####[address] [address] [facility] Anion gap [Moles/Vol] 11.5 mmol/L Normal 6.0-15.0 [facility] Comment on above: Order Comment: Reaso n for Exam Electrolyte and fluid disorder;Chronic kidney disease, stage 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 Performed By: #### C MP, A1C WTH eA, LIPID, CBC ####[address] [address] [facility] AST [Catalytic activity/Vol] 22 U/L Normal 13-39 [facility] Comment on above: Order Comment: Reaso n for Exam Electrolyte and fluid disorder;Chronic kidney disease, stage 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 Performed By: #### C MP, A1C WTH eA, LIPID, CBC ####[address] [address] [facility] Bilirubin [Mass/Vol] 0.7 mg/dL Normal 0.3-1.0 [facility] Comment on above: Order Comment: Reaso n for Exam Electrolyte and fluid disorder;Chronic kidney disease, stage 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 Performed By: #### C MP, A1C WTH eA, LIPID, CBC ####[address] [address] [facility] Calcium [Mass/Vol] 11.2 mg/dL High 8.6-10.3 [facility] Comment on above: Order Comment: Reaso n for Exam Electrolyte and fluid disorder;Chronic kidney disease, stage 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 Performed By: #### C MP, A1C WTH eA, LIPID, CBC ####[address] [place] [id number] [facility] Chloride [Moles/Vol] 103 mmol/L Normal 98-107 [facility] Comment on above: Order Comment: Reaso n for Exam Electrolyte and fluid disorder;Chronic kidney disease, stage 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 Performed By: #### C MP, A1C WTH eA, LIPID, CBC ####[place] [id number] [facility] CO2 [Moles/Vol] 28.3 mmol/L Normal 21.0-31.0 [facility] Comment on above: Order Comment: Reaso n for Exam Electrolyte and fluid disorder;Chronic kidney disease, stage 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 Performed By: #### C MP, A1C WTH eA, LIPID, CBC ####[place] [id number] [facility] Creatinine [Mass/Vol] 1.59 mg/dL High 0.70-1.30 [facility] Comment on above: Order Comment: Reaso n for Exam Electrolyte and fluid disorder;Chronic kidney disease, stage 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 Performed By: #### C MP, A1C WTH eA, LIPID, CBC ####[address] [id number] [place] GFR/1.73 sq M.predicted MDRD (S/P/Bld) [Vol rate/Area] 47.878 mL/min/{1.73_m2} Normal [facility] Comment on above: Order Comment: Reaso n for Exam Electrolyte and fluid disorder;Chronic kidney disease, stage 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 Performed By: #### C MP, A1C WTH eA, LIPID, CBC ####[address] [id number] [facility] Globulin (S) [Mass/Vol] 2.9 g/dL Normal [facility] Comment on above: Order Comment: Reaso n for Exam Electrolyte and fluid disorder;Chronic kidney disease, stage 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 Performed By: #### C MP, A1C WTH eA, LIPID, CBC ####[facility] [place] [address] [facility] Glucose [Mass/Vol] 78 mg/dL Normal 70-100 [facility] Comment on above: Order Comment: Reaso n for Exam Electrolyte and fluid disorder;Chronic kidney disease, stage 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 Result Comment: [facility] [place] [facility] [place] Glucose Reference Range is dependent on time and content of last meal. Glucose of more than 200 mg/dL in a nonstressed, ambulatory subject supports the diagnosis of Diabetes Mellitus. ADA recommended reference range Performed By: #### C MP, A1C WTH eA, LIPID, CBC ####[address] [place] [address] [facility] Potassium [Moles/Vol] 4.8 mmol/L Normal 3.5-5.1 [facility] Comment on above: Order Comment: Reaso n for Exam Electrolyte and fluid disorder;Chronic kidney disease, stage 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 Performed By: #### C MP, A1C WTH eA, LIPID, CBC ####[address] [place] [address] [facility] Protein [Mass/Vol] 7.2 g/dL Normal 6.4-8.9 [facility] Comment on above: Order Comment: Reaso n for Exam Electrolyte and fluid disorder;Chronic kidney disease, stage 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 Performed By: #### C MP, A1C WTH eA, LIPID, CBC ####[address] [place] [address] [facility] Sodium [Moles/Vol] 138 mmol/L Normal 136-145 [facility] Comment on above: Order Comment: Reaso n for Exam Electrolyte and fluid disorder;Chronic kidney disease, stage 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 Performed By: #### C MP, A1C WTH eA, LIPID, CBC ####[facility] [id number] [place] [id number] [facility] Urea nitrogen [Mass/Vol] 32 mg/dL High 7-25 [facility] Comment on above: Order Comment: Reaso n for Exam Electrolyte and fluid disorder;Chronic kidney disease, stage 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 Performed By: #### C MP, A1C WT eA, LIPID, CBC ####[facility] [id number] Creatinine [Mass/volume] in Serum or PlasmaOrdered By: Geeta Dumont on 03-07-2023 Creatinine [Mass/Vol] 1.59 mg/dL 0.70-1.30 [facility] Eosinophils Auto (Bld) [#/Vo l]Ordered By: Geeta Dumont on 03-07-2023 Eosinophils (Bld) [#/Vol] 0.5 10*3/uL 0.0-0.45 [facility] Eosinophils/100 WBC Auto (Bl d)Ordered By: Geeta Dumont on 03-07-2023 Eosinophils/100 WBC (Bld) 6.3 % . [facility] Erythrocyte distribution wid th Auto (RBC) [Ratio]Ordered By: Geeta Dumont on 03-07-2023 Erythrocyte distribution width (RBC) [Ratio] 15.8 % 12.0-14.8 [facility] Globulin Calc (S) [Mass/Vol] Ordered By: Geeta Dumont on 03-07-2023 Globulin (S) [Mass/Vol] 2.9 g/dL [facility] Glucose [Mass/volume] in Ser um or PlasmaOrdered By: Geeta Dumont on 03-07-2023 Glucose [Mass/Vol] 78 mg/dL 70-100 [facility] Comment on above: ADA recommended refe rence rangeRandom Glucose Reference Range is dependent on time and content of last meal. Glucose of more than 200 mg/dL in a nonstressed, ambulatory subject supports the diagnosis of Diabetes Mellitus. Glucose mean value [Mass/vol ume] in Blood Estimated from glycated hemoglobinOrdered By: Geeta Dumont on 03-07-2023 Average glucose Estimated from glycated hemoglobin (Bld) [Mass/Vol] 180 mg/dL [facility] Hematocrit Auto (Bld) [Volum e fraction]Ordered By: Geeta Dumont on 03-07-2023 Hematocrit (Bld) [Volume fraction] 40.4 % 38.8-50.0 [facility] Hemoglobin A1c percentageOrd ered By: Geeta Dumont on 03-07-2023 HbA1c (Bld) [Mass fraction] 7.9 % 4.3-5.6 [facility] Comment on above: Increased risk for d iabetes: 5.7 - 6.4diabetes: >6.4glycemic control for adults with diabetes: <7.0 Hemoglobin [Mass/volume] in BloodOrdered By: Geeta Dumont on 03-07-2023 Hemoglobin (Bld) [Mass/Vol] 13.1 g/dL 13.0-17.0 [facility] Leukocytes [#/volume] correc martin for nucleated erythrocytes in Blood by Automated counOrdered By: Geeta Dumont on 03-07-2023 WBC corrected for nucl RBC Auto (Bld) [#/Vol] 7.8 10*3/uL 4.1-10.5 [facility] Lipid Panelon 03-07-2023 Cholesterol [Mass/Vol] 148 mg/dL Normal 140-200 [facility] Comment on above: Order Comment: Reaso n for Exam Electrolyte and fluid disorder;Chronic kidney disease, stage 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 Result Comment: Chol less than 200 mg/dl low risk Chol 201-239 mg/dl borderline risk Chol 240 mg/dl and greater high risk Performed By: #### C MP, A1C [facility] eA, LIPID, CBC ####[facility] [id number] [place] [address] [facility] Cholesterol in HDL [Mass/Vol] 43 mg/dL Normal 23-92 [facility] Comment on above: Order Comment: Reaso n for Exam Electrolyte and fluid disorder;Chronic kidney disease, stage 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 Result Comment: HDL CHOL ATP-III CLASSIFICATION Cardiovascular Risk HDL > or equal to 60 mg/dL LOW HDL < 40 mg/dL HIGH Performed By: #### C MP, A1C WTH eA, LIPID, CBC ####[facility] [place] [address] [facility] Cholesterol.total/Cho lesterol in HDL [Mass ratio] 3.4 {ratio} Normal <5.0 [facility] Comment on above: Order Comment: Reaso n for Exam Electrolyte and fluid disorder;Chronic kidney disease, stage 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 Result Comment: PERF ORMED BY:[address] [address] [place], [place] [phone] MEDICAL DIRECTORAPRIL VEGA M.D. Performed By: #### C MP, A1C WTH eA, LIPID, CBC ####[place] [id number] [address] LDL Cholesterol,Calculate d 76 mg/dL Normal 0-100 [facility] Comment on above: Order Comment: Reaso n for Exam Electrolyte and fluid disorder;Chronic kidney disease, stage 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 Result Comment: LDL ATP III CLASSIFICATION LDL less than 100 mg/dL Optimal LDL 100-129 mg/dL Near or above optimal LDL 130-159 mg/dL Borderline high LDL 160-189 mg/dL High LDL greater than 189 mg/dL Very high Performed By: #### C MP, A1C WTH eA, LIPID, CBC ####[place] [id number] [facility] Triglyceride w/Reflex 147 mg/dL Normal 0-149 [facility] Comment on above: Order Comment: Reaso n for Exam Electrolyte and fluid disorder;Chronic kidney disease, stage 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 Result Comment: TRIG ATP III CLASSIFICATION TRIG less than 150 mg/dL Normal TRIG 150-199 mg/dL Borderline high TRIG 200-500 mg/dL High TRIG greater than 500 mg/dL Very high Standard traceable to the Center for Disease Conrtrol and Prevention (CDC) test method. Performed By: #### C MP, A1C WTH eA, LIPID, CBC ####[facility] [place] [id number] [facility] VLDL CHOLESTEROL 29 mg/dL Normal [facility] Comment on above: Order Comment: Reaso n for Exam Electrolyte and fluid disorder;Chronic kidney disease, stage 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 Performed By: #### C MP, A1C WTH eA, LIPID, CBC ####[facility] [id number] [place] [address] [facility] Lymphocytes Auto (Bld) [#/Vo l]Ordered By: Geeta Dumont on 03-07-2023 Lymphocytes (Bld) [#/Vol] 1.2 10*3/uL 1.00-4.8 [facility] Lymphocytes/100 WBC Auto (Bl d)Ordered By: Geeta Dumont on 03-07-2023 Lymphocytes/100 WBC (Bld) 15.3 % . [facility] MCH Auto (RBC) [Entitic mass ]Ordered By: Geeta Dumont on 03-07-2023 MCH (RBC) [Entitic mass] 27.3 pg 27.5-35.2 [facility] MCHC Auto (RBC) [Mass/Vol]Or dered By: Geeta Dumont on 03-07-2023 MCHC (RBC) [Mass/Vol] 32.4 g/dL 32.5-35.6 [facility] MCV Auto (RBC) [Entitic vol] Ordered By: Geeta Dumont on 03-07-2023 MCV (RBC) [Entitic vol] 84.1 fL 83.5-101 [facility] Monocytes Auto (Bld) [#/Vol] Ordered By: Geeta Dumont on 03-07-2023 Monocytes (Bld) [#/Vol] 1.1 10*3/uL 0.0-0.8 [facility] Monocytes/100 WBC Auto (Bld) Ordered By: Geeta Dumont on 03-07-2023 Monocytes/100 WBC (Bld) 14.1 % . [facility] Neutrophils Auto (Bld) [#/Vo l]Ordered By: Geeta Dumont on 03-07-2023 Neutrophils (Bld) [#/Vol] 4.9 10*3/uL 1.8-7.7 [facility] Neutrophils/100 WBC Auto (Bl d)Ordered By: Geeta Dumont on 03-07-2023 Neutrophils/100 WBC (Bld) 63.4 % . [facility] No Panel InformationOrdered By: Geeta Dumont on 03-07-2023 Estimated GFR (CKD-EPI) 47.878 mL/Min [facility] Creatinine Clearance (Chem N/A [facility] Nucleated erythrocytes [Pres ence] in Blood by Automated countOrdered By: Geeta Dumont on 03-07-2023 Nucleated RBC Auto Ql (Bld) 0.1 /100{WBC} 0-0.5 [facility] Platelet mean volume Auto (B ld) [Entitic vol]Ordered By: Geeta Dumont on 03-07-2023 Platelet mean volume (Bld) [Entitic vol] 6.8 fL 6.6-10.1 [facility] Platelets Auto (Bld) [#/Vol] Ordered By: Geeta Dumont on 03-07-2023 Platelets (Bld) [#/Vol] 280 10*3/uL 150-450 [facility] Potassium [Moles/volume] in Serum or PlasmaOrdered By: Geeta Dumont on 03-07-2023 Potassium [Moles/Vol] 4.8 mmol/L 3.5-5.1 [facility] Protein [Mass/volume] in Ser um or PlasmaOrdered By: Geeta Dumont on 03-07-2023 Protein [Mass/Vol] 7.2 g/dL 6.4-8.9 [facility] RBC Auto (Bld) [#/Vol]Ordere d By: Geeta Dumont on 03-07-2023 RBC (Bld) [#/Vol] 4.81 10*6/uL 3.90-5.60 [facility] Serum or plasma albumin/glob ulin mass ratioOrdered By: Geeta Dumont on 03-07-2023 Albumin/Globulin [Mass ratio] 1.5 {ratio} [facility] Serum or plasma anion gap de terminationOrdered By: Geeta Dumont on 03-07-2023 Anion gap [Moles/Vol] 11.5 mmol/L 6.0-15.0 [facility] Serum or plasma high density lipoprotein (HDL) cholesterol measurementOrdered By: Geeta Dumont on 03-07-2023 Cholesterol in HDL [Mass/Vol] 43 mg/dL 23-92 [facility] Comment on above: HDL CHOL ATP-III CLA SSIFICATION Cardiovascular RiskHDL > or equal to 60 mg/dL LOWHDL < 40 mg/dL HIGH Serum or plasma total choles terol/high density lipoprotein (HDL) cholesterol mass ratOrdered By: Geeta Dumont on 03-07-2023 Cholesterol.total/Cho lesterol in HDL [Mass ratio] 3.4 {ratio} <5.0 [facility] Sodium [Moles/volume] in Ser um or PlasmaOrdered By: Geeta Dumont on 03-07-2023 Sodium [Moles/Vol] 138 mmol/L 136-145 [facility] Triglyceride [Mass/volume] i n Serum or PlasmaOrdered By: Geeta Dumont on 03-07-2023 Triglyceride [Mass/Vol] 147 mg/dL 0-149 [facility] Comment on above: TRIG ATP III CLASSIF ICATIONTRIG less than 150 mg/dL NormalTRIG 150-199 mg/dL Borderline highTRIG 200-500 mg/dL High TRIG greater than 500 mg/dL Very highStandard traceable to the Center for Disease Conrtrol and Prevention (CDC) test method. Urea nitrogen [Mass/volume] in Serum or PlasmaOrdered By: Geeta Dumont on 03-07-2023 Urea nitrogen [Mass/Vol] 32 mg/dL 7-25 [facility] WBC Auto (Bld) [#/Vol]Ordere d By: Geeta Dumont on 03-07-2023 WBC (Bld) [#/Vol] 7.8 10*3/uL 4.1-10.5 [facility] CT soft tissue neck w conon 02-21-2023 CT soft tissue neck w con Normal [facility] Alanine aminotransferase [En zymatic activity/volume] in Serum or PlasmaOrdered By: Joana Farooq on 02-18-2023 ALT [Catalytic activity/Vol] 13 U/L 7-52 [facility] Albumin [Mass/volume] in Ser um or Plasma by Bromocresol green (BCG) dye binding methoOrdered By: Joana Farooq on 02-18-2023 Albumin BCG dye [Mass/Vol] 4.0 g/dL 3.5-5.7 [facility] Alkaline phosphatase [Enzyma tic activity/volume] in Serum or PlasmaOrdered By: Joana Farooq on 02-18-2023 ALP [Catalytic activity/Vol] 114 U/L 34-104 [facility] Aspartate aminotransferase [ Enzymatic activity/volume] in Serum or PlasmaOrdered By: Joana Farooq on 02-18-2023 AST [Catalytic activity/Vol] 19 U/L 13-39 [facility] Basophils Auto (Bld) [#/Vol] Ordered By: Joana Farooq on 02-18-2023 Basophils (Bld) [#/Vol] 0.0 10*3/uL 0.0-0.2 [facility] Basophils/100 WBC Auto (Bld) Ordered By: Joana Farooq on 02-18-2023 Basophils/100 WBC (Bld) 0.4 % . [facility] Bilirubin.total [Mass/volume ] in Serum or PlasmaOrdered By: Joana Farooq on 02-18-2023 Bilirubin [Mass/Vol] 0.7 mg/dL 0.3-1.0 [facility] Calcium [Mass/volume] in Ser um or PlasmaOrdered By: Joana Farooq on 02-18-2023 Calcium [Mass/Vol] 11.5 mg/dL 8.6-10.3 [facility] Carbon dioxide, total [Moles /volume] in Serum or PlasmaOrdered By: Joana Farooq on 02-18-2023 CO2 [Moles/Vol] 29.0 mmol/L 21.0-31.0 [facility] Chloride [Moles/volume] in S [place] or PlasmaOrdered By: Joana Farooq on 02-18-2023 Chloride [Moles/Vol] 104 mmol/L 98-107 [facility] Complete Blood Count Auto Di ffon 02-18-2023 Basophils (Bld) [#/Vol] 0.0 10*3/uL Normal 0.0-0.2 [facility] Comment on above: Order Comment: Reaso n for Exam Fatigue, unspecified type;Swelling of left lower extremity;S Result Comment: PERF ORMED BY:[address] [place] [phone] MEDICAL DIRECTORAPRIL VEGA M.D. Performed By: #### C BC ####[place] [id number] [facility] Basophils/100 WBC (Bld) 0.4 % Normal . [facility] Comment on above: Order Comment: Reaso n for Exam Fatigue, unspecified type;Swelling of left lower extremity;S Performed By: #### C BC ####[place] [id number] [facility] Eosinophils (Bld) [#/Vol] 0.4 10*3/uL Normal 0.0-0.45 [facility] Comment on above: Order Comment: Reaso n for Exam Fatigue, unspecified type;Swelling of left lower extremity;S Performed By: #### C BC ####[place] [id number] [facility] Eosinophils/100 WBC (Bld) 4.7 % Normal . [facility] Comment on above: Order Comment: Reaso n for Exam Fatigue, unspecified type;Swelling of left lower extremity;S Performed By: #### C BC ####[place] [id number] [facility] Erythrocyte distribution width (RBC) [Ratio] 16.1 % High 12.0-14.8 [facility] Comment on above: Order Comment: Reaso n for Exam Fatigue, unspecified type;Swelling of left lower extremity;S Performed By: #### C BC ####[address] Hematocrit (Bld) [Volume fraction] 38.8 % Normal 38.8-50.0 [facility] Comment on above: Order Comment: Reaso n for Exam Fatigue, unspecified type;Swelling of left lower extremity;S Performed By: #### C BC ####[address] Hemoglobin (Bld) [Mass/Vol] 12.9 g/dL Low 13.0-17.0 [facility] Comment on above: Order Comment: Reaso n for Exam Fatigue, unspecified type;Swelling of left lower extremity;S Performed By: #### C BC ####[address] Lymphocytes (Bld) [#/Vol] 0.7 10*3/uL Low 1.00-4.8 [facility] Comment on above: Order Comment: Reaso n for Exam Fatigue, unspecified type;Swelling of left lower extremity;S Performed By: #### C BC ####[address] Lymphocytes/100 WBC (Bld) 8.6 % Normal . [facility] Comment on above: Order Comment: Reaso n for Exam Fatigue, unspecified type;Swelling of left lower extremity;S Performed By: #### C BC ####[address] MCH (RBC) [Entitic mass] 28.0 pg Normal 27.5-35.2 [facility] Comment on above: Order Comment: Reaso n for Exam Fatigue, unspecified type;Swelling of left lower extremity;S Performed By: #### C BC ####[address] MCV (RBC) [Entitic vol] 84.1 fL Normal 83.5-101 [facility] Comment on above: Order Comment: Reaso n for Exam Fatigue, unspecified type;Swelling of left lower extremity;S Performed By: #### C BC ####[address] Mean Corpuscular HGB Conc 33.3 g/dL Normal 32.5-35.6 [facility] Comment on above: Order Comment: Reaso n for Exam Fatigue, unspecified type;Swelling of left lower extremity;S Performed By: #### C BC ####[address] Monocytes (Bld) [#/Vol] 0.7 10*3/uL Normal 0.0-0.8 [facility] Comment on above: Order Comment: Reaso n for Exam Fatigue, unspecified type;Swelling of left lower extremity;S Performed By: #### C BC ####[address] Monocytes/100 WBC (Bld) 8.2 % Normal . [facility] Comment on above: Order Comment: Reaso n for Exam Fatigue, unspecified type;Swelling of left lower extremity;S Performed By: #### C BC ####[address] Neutrophils (Bld) [#/Vol] 6.3 10*3/uL Normal 1.8-7.7 [facility] Comment on above: Order Comment: Reaso n for Exam Fatigue, unspecified type;Swelling of left lower extremity;S Performed By: #### C BC ####[address] Neutrophils/100 WBC (Bld) 78.1 % Normal . [facility] Comment on above: Order Comment: Reaso n for Exam Fatigue, unspecified type;Swelling of left lower extremity;S Performed By: #### C BC ####[address] NRBC% 0.1 /100{WBC} Normal 0-0.5 [facility] Comment on above: Order Comment: Reaso n for Exam Fatigue, unspecified type;Swelling of left lower extremity;S Performed By: #### C BC ####[address] Platelet mean volume (Bld) [Entitic vol] 7.1 fL Normal 6.6-10.1 [facility] Comment on above: Order Comment: Reaso n for Exam Fatigue, unspecified type;Swelling of left lower extremity;S Performed By: #### C BC ####[address] Platelets (Bld) [#/Vol] 235 10*3/uL Normal 150-450 [facility] Comment on above: Order Comment: Reaso n for Exam Fatigue, unspecified type;Swelling of left lower extremity;S Performed By: #### C BC ####[address] RBC (Bld) [#/Vol] 4.61 10*6/uL Normal 3.90-5.60 [facility] Comment on above: Order Comment: Reaso n for Exam Fatigue, unspecified type;Swelling of left lower extremity;S Performed By: #### C BC ####[address] WBC (Bld) [#/Vol] 8.1 10*3/uL Normal 4.1-10.5 [facility] Comment on above: Order Comment: Reaso n for Exam Fatigue, unspecified type;Swelling of left lower extremity;S Performed By: #### C BC ####[address] Basophils (Bld) [#/Vol] 0.678397107 10*3/uL Normal 0.0-0.2 10*3/uL [employer] [facility] [employer] Other Basophils/100 WBC (Bld) 0.400 % . % [employer] Other Eosinophils (Bld) [#/Vol] 0.332765641 10*3/uL Normal 0.0-0.45 10*3/uL [employer] Other Eosinophils/100 WBC (Bld) 4.700 % . % [employer] Other Erythrocyte distribution width (RBC) [Ratio] 16.100 % High 12.0-14.8 % [employer] Other Hematocrit (Bld) [Volume fraction] 38.800 % Normal 38.8-50.0 % [employer] Other Hemoglobin (Bld) [Mass/Vol] 12.414378 g/dL Low 13.0-17.0 g/dL [employer] Other Lymphocytes (Bld) [#/Vol] 0.754255802 10*3/uL Low 1.00-4.8 10*3/uL [employer] Other Lymphocytes/100 WBC (Bld) 8.600 % . % [employer] Other MCH (RBC) [Entitic mass] 28.0000 pg Normal 27.5-35.2 pg [employer] Other MCV (RBC) [Entitic vol] 84.1000 fL Normal 83.5-101 fL [employer] Other Monocytes (Bld) [#/Vol] 0.258965711 10*3/uL Normal 0.0-0.8 10*3/uL [employer] Other Monocytes/100 WBC (Bld) 8.200 % . % [employer] Other Neutrophils (Bld) [#/Vol] 6.499037488 10*3/uL Normal 1.8-7.7 10*3/uL [employer] Other Neutrophils/100 WBC (Bld) 78.100 % . % [employer] Other Platelet mean volume (Bld) [Entitic vol] 7.1000 fL Normal 6.6-10.1 fL [employer] Other WBC (Bld) [#/Vol] 8.012894105 10*3/uL Normal 4.1 -10.5 10*3/uL [employer] Other Complete Blood Count Auto Diff 8.1 10*3/uL Normal 4.1-10.5 10*3/uL [employer] Other Complete Blood Count Auto Diff 33.3 g/dL Normal 32.5-35.6 g/dL [employer] [facility] [employer] Other Complete Blood Count Auto Diff 0.1 /100{WBC} Normal 0-0.5 /100{WBC} [employer] [facility] [employer] Other Comprehensive Metabolic Pane anny 02-18-2023 Albumin [Mass/Vol] 4.0 g/dL Normal 3.5-5.7 [facility] Comment on above: Order Comment: Reaso n for Exam Fatigue, unspecified type;Swelling of left lower extremity;S Reason for Exam Fatigue, unspecified type Performed By: #### T HYROID SC, MG, CMP ####[place] [address] [address] Albumin/Globulin [Mass ratio] 1.3 {ratio} Normal [facility] Comment on above: Order Comment: Reaso n for Exam Fatigue, unspecified type;Swelling of left lower extremity;S Reason for Exam Fatigue, unspecified type Performed By: #### T HYROID SC, MG, CMP ####[place] [id number] [facility] ALP [Catalytic activity/Vol] 114 U/L High 34-104 [facility] Comment on above: Order Comment: Reaso n for Exam Fatigue, unspecified type;Swelling of left lower extremity;S Reason for Exam Fatigue, unspecified type Performed By: #### T HYROID SC, MG, CMP ####[place] [id number] [facility] ALT [Catalytic activity/Vol] 13 U/L Normal 7-52 [facility] Comment on above: Order Comment: Reaso n for Exam Fatigue, unspecified type;Swelling of left lower extremity;S Reason for Exam Fatigue, unspecified type Performed By: #### T HYROID SC, MG, CMP ####[place] [id number] [facility] Anion gap [Moles/Vol] 9.0 mmol/L Normal 6.0-15.0 [facility] Comment on above: Order Comment: Reaso n for Exam Fatigue, unspecified type;Swelling of left lower extremity;S Reason for Exam Fatigue, unspecified type Performed By: #### T HYROID SC, MG, CMP ####[place] [id number] [address] AST [Catalytic activity/Vol] 19 U/L Normal 13-39 [facility] Comment on above: Order Comment: Reaso n for Exam Fatigue, unspecified type;Swelling of left lower extremity;S Reason for Exam Fatigue, unspecified type Performed By: #### T HYROID SC, MG, CMP ####[address] Bilirubin [Mass/Vol] 0.7 mg/dL Normal 0.3-1.0 [facility] Comment on above: Order Comment: Reaso n for Exam Fatigue, unspecified type;Swelling of left lower extremity;S Reason for Exam Fatigue, unspecified type Performed By: #### T HYROID SC, MG, CMP ####[address] Calcium [Mass/Vol] 11.5 mg/dL High 8.6-10.3 [facility] Comment on above: Order Comment: Reaso n for Exam Fatigue, unspecified type;Swelling of left lower extremity;S Reason for Exam Fatigue, unspecified type Performed By: #### T HYROID SC, MG, CMP ####[address] Chloride [Moles/Vol] 104 mmol/L Normal 98-107 [facility] Comment on above: Order Comment: Reaso n for Exam Fatigue, unspecified type;Swelling of left lower extremity;S Reason for Exam Fatigue, unspecified type Performed By: #### T HYROID SC, MG, CMP ####[address] CO2 [Moles/Vol] 29.0 mmol/L Normal 21.0-31.0 [facility] Comment on above: Order Comment: Reaso n for Exam Fatigue, unspecified type;Swelling of left lower extremity;S Reason for Exam Fatigue, unspecified type Performed By: #### T HYROID SC, MG, CMP ####[facility] [place] [id number] [facility] Creatinine [Mass/Vol] 1.23 mg/dL Normal 0.70-1.30 [facility] Comment on above: Order Comment: Reaso n for Exam Fatigue, unspecified type;Swelling of left lower extremity;S Reason for Exam Fatigue, unspecified type Performed By: #### T HYROID SC, MG, CMP ####[place] [address] [place] [id number] [facility] GFR/1.73 sq M.predicted MDRD (S/P/Bld) [Vol rate/Area] mL/min/{1.73_m2} Normal [facility] Other Comment on above: Order Comment: Reaso n for Exam Fatigue, unspecified type;Swelling of left lower extremity;S Reason for Exam Fatigue, unspecified type Performed By: #### T HYROID SC, MG, CMP ####[place] [address] [address] Globulin (S) [Mass/Vol] 3.0 g/dL Normal [facility] Comment on above: Order Comment: Reaso n for Exam Fatigue, unspecified type;Swelling of left lower extremity;S Reason for Exam Fatigue, unspecified type Performed By: #### T HYROID SC, MG, CMP ####[place] [address] [place] [id number] [facility] Glucose [Mass/Vol] 160 mg/dL High 70-100 [facility] Comment on above: Order Comment: Reaso n for Exam Fatigue, unspecified type;Swelling of left lower extremity;S Reason for Exam Fatigue, unspecified type Result Comment: [place] Glucose Reference Range is dependent on time and content of last meal. Glucose of more than 200 mg/dL in a nonstressed, ambulatory subject supports the diagnosis of Diabetes Mellitus. ADA recommended reference range Performed By: #### T HYROID SC, MG, CMP ####[place] [address] [place] [id number] [facility] Potassium [Moles/Vol] 5.0 mmol/L Normal 3.5-5.1 [facility] Comment on above: Order Comment: Reaso n for Exam Fatigue, unspecified type;Swelling of left lower extremity;S Reason for Exam Fatigue, unspecified type Performed By: #### T HYROID SC, MG, CMP ####[place] [address] [place] [id number] [facility] Protein [Mass/Vol] 7.0 g/dL Normal 6.4-8.9 [facility] Comment on above: Order Comment: Reaso n for Exam Fatigue, unspecified type;Swelling of left lower extremity;S Reason for Exam Fatigue, unspecified type Performed By: #### T HYROID SC, MG, CMP ####[place] [address] [place] [id number] [facility] Sodium [Moles/Vol] 137 mmol/L Normal 136-145 [facility] Comment on above: Order Comment: Reaso n for Exam Fatigue, unspecified type;Swelling of left lower extremity;S Reason for Exam Fatigue, unspecified type Performed By: #### T HYROID SC, MG, CMP ####[place] [address] [place] [id number] [facility] Urea nitrogen [Mass/Vol] 22 mg/dL Normal 7-25 [facility] Comment on above: Order Comment: Reaso n for Exam Fatigue, unspecified type;Swelling of left lower extremity;S Reason for Exam Fatigue, unspecified type Performed By: #### T HYROID SC, MG, CMP ####[place] [id number] [facility] Albumin [Mass/Vol] 4.417470 g/dL Normal 3.5-5.7 g/dL [facility] Other Bilirubin [Mass/Vol] 0.0792004 mg/dL Normal 0.3- 1.0 mg/dL [employer] Other Calcium [Mass/Vol] 11.9719609 mg/dL High 8.6-1 0.3 mg/dL [employer] Other CO2 [Moles/Vol] 29.69210137 mmol/L Normal 21.0-3 1.0 mmol/L [employer] Other Creatinine [Mass/Vol] 1.83751008 mg/dL Normal 0. 70-1.30 mg/dL [employer] Other Potassium [Moles/Vol] 5.85985690 mmol/L Normal 3 .5-5.1 mmol/L [facility] Other Protein [Mass/Vol] 7.553945 g/dL Normal 6.4-8.9 g/dL [employer] Other Comprehensive Metabolic Panel 3.0 g/dL [employer] Other Creatinine [Mass/volume] in Serum or PlasmaOrdered By: Joana Farooq on 02-18-2023 Creatinine [Mass/Vol] 1.23 mg/dL 0.70-1.30 [facility] Eosinophils Auto (Bld) [#/Vo l]Ordered By: Joana Farooq on 02-18-2023 Eosinophils (Bld) [#/Vol] 0.4 10*3/uL 0.0-0.45 [facility] Eosinophils/100 WBC Auto (Bl d)Ordered By: Joana Farooq on 02-18-2023 Eosinophils/100 WBC (Bld) 4.7 % . [facility] Erythrocyte distribution wid th Auto (RBC) [Ratio]Ordered By: Joana Farooq on 02-18-2023 Erythrocyte distribution width (RBC) [Ratio] 16.1 % 12.0-14.8 [facility] Erythrocytes [#/volume] in B lood by Automated countOrdered By: Joana Farooq on 02-18-2023 RBC (Bld) [#/Vol] 4.61 10*6/uL 3.90-5.60 [facility] Globulin Calc (S) [Mass/Vol] Ordered By: Joana Farooq on 02-18-2023 Globulin (S) [Mass/Vol] 3.0 g/dL [facility] Glucose [Mass/volume] in Ser um or PlasmaOrdered By: Joana Farooq on 02-18-2023 Glucose [Mass/Vol] 160 mg/dL 70-100 [facility] Comment on above: ADA recommended refe rence rangeRandom Glucose Reference Range is dependent on time and content of last meal. Glucose of more than 200 mg/dL in a nonstressed, ambulatory subject supports the diagnosis of Diabetes Mellitus. Hematocrit Auto (Bld) [Volum e fraction]Ordered By: oJana Farooq on 02-18-2023 Hematocrit (Bld) [Volume fraction] 38.8 % 38.8-50.0 [facility] Hemoglobin [Mass/volume] in BloodOrdered By: Joana Farooq on 02-18-2023 Hemoglobin (Bld) [Mass/Vol] 12.9 g/dL 13.0-17.0 [facility] Leukocytes [#/volume] correc martin for nucleated erythrocytes in Blood by Automated counOrdered By: Joana Farooq on 02-18-2023 WBC corrected for nucl RBC Auto (Bld) [#/Vol] 8.1 10*3/uL 4.1-10.5 [facility] Lymphocytes Auto (Bld) [#/Vo l]Ordered By: Joana Farooq on 02-18-2023 Lymphocytes (Bld) [#/Vol] 0.7 10*3/uL 1.00-4.8 [facility] Lymphocytes/100 WBC Auto (Bl d)Ordered By: Joana Farooq on 02-18-2023 Lymphocytes/100 WBC (Bld) 8.6 % . [facility] MCH Auto (RBC) [Entitic mass ]Ordered By: Joana Farooq on 02-18-2023 MCH (RBC) [Entitic mass] 28.0 pg 27.5-35.2 [facility] MCHC Auto (RBC) [Mass/Vol]Or dered By: Joana Farooq on 02-18-2023 MCHC (RBC) [Mass/Vol] 33.3 g/dL 32.5-35.6 [facility] MCV Auto (RBC) [Entitic vol] Ordered By: Joana Farooq on 02-18-2023 MCV (RBC) [Entitic vol] 84.1 fL 83.5-101 [facility] Magnesiumon 02-18-2023 Magnesium [Mass/Vol] 2.0 mg/dL Normal 1.9-2.7 [facility] [facility] Comment on above: Order Comment: Reaso n for Exam Fatigue, unspecified type;Swelling of left lower extremity;S Reason for Exam Fatigue, unspecified type Performed By: #### T HYROID SC, MG, CMP ####[facility] [id number] [place] [address] [facility] Magnesium [Mass/Vol] 2.3072489 mg/dL Normal 1.9- 2.7 mg/dL [employer] Other Magnesium [Mass/volume] in S [place] or PlasmaOrdered By: Ingris Lombardo on 02-18-2023 Magnesium [Mass/Vol] 2.0 mg/dL 1.9-2.7 [facility] Monocytes Auto (Bld) [#/Vol] Ordered By: Joana Farooq on 02-18-2023 Monocytes (Bld) [#/Vol] 0.7 10*3/uL 0.0-0.8 [facility] Monocytes/100 WBC Auto (Bld) Ordered By: Joana Farooq on 02-18-2023 Monocytes/100 WBC (Bld) 8.2 % . [facility] Neutrophils Auto (Bld) [#/Vo l]Ordered By: Joana Farooq on 02-18-2023 Neutrophils (Bld) [#/Vol] 6.3 10*3/uL 1.8-7.7 [facility] Neutrophils/100 WBC Auto (Bl d)Ordered By: Joana Farooq on 02-18-2023 Neutrophils/100 WBC (Bld) 78.1 % . [facility] No Panel InformationOrdered By: Joana Farooq on 02-18-2023 Estimated GFR (CKD-EPI) > 60.0 mL/Min [facility] Creatinine Clearance (Chem N/A [facility] Nucleated erythrocytes [Pres ence] in Blood by Automated countOrdered By: Joana Farooq on 02-18-2023 Nucleated RBC Auto Ql (Bld) 0.1 /100{WBC} 0-0.5 [facility] Platelet mean volume Auto (B ld) [Entitic vol]Ordered By: Joana Farooq on 02-18-2023 Platelet mean volume (Bld) [Entitic vol] 7.1 fL 6.6-10.1 [facility] Platelets [#/volume] in Bloo d by Automated countOrdered By: Joana Farooq on 02-18-2023 Platelets (Bld) [#/Vol] 235 10*3/uL 150-450 [facility] Potassium [Moles/volume] in Serum or PlasmaOrdered By: Joana Farooq on 02-18-2023 Potassium [Moles/Vol] 5.0 mmol/L 3.5-5.1 [facility] Protein [Mass/volume] in Ser um or PlasmaOrdered By: Joana Farooq on 02-18-2023 Protein [Mass/Vol] 7.0 g/dL 6.4-8.9 [facility] Serum or plasma albumin/glob ulin mass ratioOrdered By: Joana Farooq on 02-18-2023 Albumin/Globulin [Mass ratio] 1.3 {ratio} [facility] Serum or plasma anion gap de terminationOrdered By: Joana Farooq on 02-18-2023 Anion gap [Moles/Vol] 9.0 mmol/L 6.0-15.0 [facility] Sodium [Moles/volume] in Ser um or PlasmaOrdered By: Joana Farooq on 02-18-2023 Sodium [Moles/Vol] 137 mmol/L 136-145 [facility] THYROID SCREENon 02-18-2023 Free T4 [Mass/Vol] 2.33 ng/dL High 0.61-1.12 [facility] Comment on above: Order Comment: Reaso n for Exam Fatigue, unspecified type;Swelling of left lower extremity;S Reason for Exam Fatigue, unspecified type Performed By: #### T HYROID SC, MG, CMP ####[facility] [id number] [place] [address] [facility] TSH Qn 3.52 m[IU]/L Normal 0.45-5.33 [facility] Comment on above: Order Comment: Reaso n for Exam Fatigue, unspecified type;Swelling of left lower extremity;S Reason for Exam Fatigue, unspecified type Result Comment: PERF ORMED BY:[place] [address] [address] [place], [place] [phone] MEDICAL DIRECTORAPRIL VEGA M.D. Performed By: #### T HYROID SC, MG, CMP ####[address] [address] [facility] Free T4 [Mass/Vol] 2.03432038 ng/dL High 0.61- 1.12 ng/dL [employer] [employer] Other TSH Qn 3.03763969325 m[IU]/L Normal 0.45-5 .33 u[iU]/mL [employer] [facility] [employer] Other Thyrotropin [Units/volume] i n Serum or PlasmaOrdered By: Ingris Lombardo on 02-18-2023 TSH Qn 3.52 m[IU]/L 0.45-5.33 [facility] Thyroxine (T4) free [Mass/vo lume] in Serum or PlasmaOrdered By: Ingris Lombardo on 02-18-2023 Free T4 [Mass/Vol] 2.33 ng/dL 0.61-1.12 [facility] Urate [Mass/volume] in Serum or PlasmaOrdered By: Joana Farooq on 02-18-2023 Urate [Mass/Vol] 5.7 mg/dL 4.4-7.6 [facility] Urea nitrogen [Mass/volume] in Serum or PlasmaOrdered By: Joana Farooq on 02-18-2023 Urea nitrogen [Mass/Vol] 22 mg/dL 7-25 [facility] Uric Acidon 02-18-2023 Urate [Mass/Vol] 5.7 mg/dL Normal 4.4-7.6 [facility] Comment on above: Result Comment: PERF ORMED BY:[place] [address] [place], [place] [phone] MEDICAL DIRECTORAPRIL VEGA M.D. Performed By: #### U JIM ####[address] [address] [facility] WBC Auto (Bld) [#/Vol]Ordere d By: Joana Farooq on 02-18-2023 WBC (Bld) [#/Vol] 8.1 10*3/uL 4.1-10.5 [facility] Albumin Levelon 02-15-2023 Albumin [Mass/Vol] 3.5 g/dL Normal 3.5-5.7 [facility] Comment on above: Result Comment: PERF ORMED BY:[address] [place], [place] [phone] MEDICAL DIRECTORAPRIL VEGA M.D. Performed By: #### C BCNO, MG, BMP, ALB ####[address] [address] [facility] Albumin [Mass/volume] in Ser um or Plasma by Bromocresol green (BCG) dye binding methoOrdered By: Roberto Fitch on 02-15-2023 Albumin BCG dye [Mass/Vol] 3.5 g/dL 3.5-5.7 [facility] Basic Metabolic Panelon Anion gap [Moles/Vol] 9.4 mmol/L Normal 6.0-15.0 [facility] Comment on above: Performed By: #### C BCNO, MG, BMP, ALB ####[address] [address] [facility] Calcium [Mass/Vol] 10.5 mg/dL High 8.6-10.3 [facility] Comment on above: Performed By: #### C BCNO, MG, BMP, ALB ####[address] [address] [facility] Chloride [Moles/Vol] 105 mmol/L Normal 98-107 [facility] Comment on above: Performed By: #### C BCNO, MG, BMP, ALB ####[address] [address] [facility] CO2 [Moles/Vol] 24.2 mmol/L Normal 21.0-31.0 [facility] Comment on above: Performed By: #### C BCNO, MG, BMP, ALB ####[place] [address] Creatinine [Mass/Vol] 1.14 mg/dL Normal 0.70-1.30 [facility] Comment on above: Performed By: #### C BCNO, MG, BMP, ALB ####[address] Creatinine Clr Calc Pharmacy 81.85 [facility] Comment on above: Performed By: #### C BCNO, MG, BMP, ALB ####[place] [address] GFR/1.73 sq M.predicted MDRD (S/P/Bld) [Vol rate/Area] mL/min/{1.73_m2} [facility] Comment on above: Performed By: #### C BCNO, MG, BMP, ALB ####[address] Glucose [Mass/Vol] 95 mg/dL Normal 70-100 [facility] Comment on above: Result Comment: [place] Glucose Reference Range is dependent on time and content of last meal. Glucose of more than 200 mg/dL in a nonstressed, ambulatory subject supports the diagnosis of Diabetes Mellitus. ADA recommended reference range Performed By: #### C BCNO, MG, BMP, ALB ####[address] Potassium [Moles/Vol] 3.6 mmol/L Normal 3.5-5.1 [facility] Comment on above: Performed By: #### C BCNO, MG, BMP, ALB ####[address] Sodium [Moles/Vol] 135 mmol/L Low 136-145 [facility] Comment on above: Performed By: #### C BCNO, MG, BMP, ALB ####[address] [place] [address] [facility] Urea nitrogen [Mass/Vol] 24 mg/dL Normal 7-25 [facility] Comment on above: Performed By: #### C BCNO, MG, BMP, ALB ####[facility] [id number] [place] [address] [facility] Calcium [Mass/volume] in Ser um or PlasmaOrdered By: Polly Velasquez on 02-15-2023 Calcium [Mass/Vol] 10.5 mg/dL 8.6-10.3 [facility] Carbon dioxide, total [Moles /volume] in Serum or PlasmaOrdered By: Polly Velasquez on 02-15-2023 CO2 [Moles/Vol] 24.2 mmol/L 21.0-31.0 [facility] Chloride [Moles/volume] in S [place] or PlasmaOrdered By: Polly Velasquez on 02-15-2023 Chloride [Moles/Vol] 105 mmol/L 98-107 [facility] Creatinine [Mass/volume] in Serum or PlasmaOrdered By: Polly Velasquez on 02-15-2023 Creatinine [Mass/Vol] 1.14 mg/dL 0.70-1.30 [facility] Erythrocyte distribution wid th Auto (RBC) [Ratio]Ordered By: Polly Velasquez on 02-15-2023 Erythrocyte distribution width (RBC) [Ratio] 15.8 % 12.0-14.8 [facility] Glucose Glucometer (BldC) [M ass/Vol]Ordered By: Polly Velasquez on 02-15-2023 Glucose [Mass/Vol] 118 mg/dL [facility] Comment on above: Random Glucose Refer ence Range is dependent on time and content of last meal. Glucose of more than 200 mg/dL in a nonstressed, ambulatory subject supports the diagnosis of Diabetes Mellitus. Glucose Poct Glucometerson 1 04-18-2022 Glucose [Mass/Vol] 118 mg/dL Normal [facility] Comment on above: Result Comment: [place] om Glucose Reference Range is dependent on time and content of last meal. Glucose of more than 200 mg/dL in a nonstressed, ambulatory subject supports the diagnosis of Diabetes Mellitus.PERFORMED BY:[facility] [place], [place] [phone] MEDICAL DIRECTORAPRIL VEGA M.D. Performed By: #### G LUSEE ####Point of Care testing, Glucose [Mass/Vol] 112 mg/dL Normal [facility] Comment on above: Result Comment: [place] Glucose Reference Range is dependent on time and content of last meal. Glucose of more than 200 mg/dL in a nonstressed, ambulatory subject supports the diagnosis of Diabetes Mellitus.PERFORMED BY:[facility] [place], [place] [phone] MEDICAL DIRECTORAPRIL VEGA M.D. Performed By: #### G OZZY ####Point of Care testing, Glucose [Mass/volume] in Ser um or PlasmaOrdered By: Polly Velasquez on 02-15-2023 Glucose [Mass/Vol] 95 mg/dL 70-100 [facility] Comment on above: ADA recommended refe rence rangeRandom Glucose Reference Range is dependent on time and content of last meal. Glucose of more than 200 mg/dL in a nonstressed, ambulatory subject supports the diagnosis of Diabetes Mellitus. Hematocrit Auto (Bld) [Volum e fraction]Ordered By: Polly Velasquez on 02-15-2023 Hematocrit (Bld) [Volume fraction] 36.9 % 38.8-50.0 [facility] Hemoglobin [Mass/volume] in BloodOrdered By: Polly Velasquez on 02-15-2023 Hemoglobin (Bld) [Mass/Vol] 12.3 g/dL 13.0-17.0 [facility] Hemogram CBC Without Diffon 02-15-2023 Erythrocyte distribution width (RBC) [Ratio] 15.8 % High 12.0-14.8 [facility] Comment on above: Performed By: #### C BCNO, MG, BMP, ALB ####[facility] [place] [address] [facility] Hematocrit (Bld) [Volume fraction] 36.9 % Low 38.8-50.0 [facility] Comment on above: Performed By: #### C BCNO, MG, BMP, ALB ####[address] Hemoglobin (Bld) [Mass/Vol] 12.3 g/dL Low 13.0-17.0 [facility] Comment on above: Performed By: #### C BCNO, MG, BMP, ALB ####[address] MCH (RBC) [Entitic mass] 27.8 pg Normal 27.5-35.2 [facility] Comment on above: Performed By: #### C BCNO, MG, BMP, ALB ####[address] MCV (RBC) [Entitic vol] 83.4 fL Low 83.5-101 [facility] Comment on above: Performed By: #### C BCNO, MG, BMP, ALB ####[address] Mean Corpuscular HGB Conc 33.3 g/dL Normal 32.5-35.6 [facility] Comment on above: Performed By: #### C BCNO, MG, BMP, ALB ####[address] Platelet mean volume (Bld) [Entitic vol] 7.1 fL Normal 6.6-10.1 [facility] Comment on above: Result Comment: PERF ORMED BY:[address] [place], [place] [phone] MEDICAL JORGE VEGA M.D. Performed By: #### C BCNO, MG, BMP, ALB ####[address] Platelets (Bld) [#/Vol] 182 10*3/uL Normal 150-450 [facility] Comment on above: Performed By: #### C BCNO, MG, BMP, ALB ####[address] RBC (Bld) [#/Vol] 4.42 10*6/uL Normal 3.90-5.60 [facility] Comment on above: Performed By: #### C BCNO, MG, BMP, ALB ####[facility] WBC (Bld) [#/Vol] 7.5 10*3/uL Normal 4.1-10.5 [facility] Comment on above: Performed By: #### C BCNO, MG, BMP, ALB ####[facility] Leukocytes [#/volume] correc martin for nucleated erythrocytes in Blood by Automated counOrdered By: Polly Velasquez on 02-15-2023 WBC corrected for nucl RBC Auto (Bld) [#/Vol] 7.5 10*3/uL 4.1-10.5 [facility] MCH Auto (RBC) [Entitic mass ]Ordered By: Polly Velasquez on 02-15-2023 MCH (RBC) [Entitic mass] 27.8 pg 27.5-35.2 [facility] MCHC Auto (RBC) [Mass/Vol]Or dered By: Polly Velasquez on 02-15-2023 MCHC (RBC) [Mass/Vol] 33.3 g/dL 32.5-35.6 [facility] MCV Auto (RBC) [Entitic vol] Ordered By: Polly Velasquez on 02-15-2023 MCV (RBC) [Entitic vol] 83.4 fL 83.5-101 [facility] Magnesiumon 02-15-2023 Magnesium [Mass/Vol] 1.7 mg/dL Low 1.9-2.7 [facility] Comment on above: Performed By: #### C BCNO, MG, BMP, ALB ####[facility] Magnesium [Mass/volume] in S [place] or PlasmaOrdered By: Roberto Fitch on 02-15-2023 Magnesium [Mass/Vol] 1.7 mg/dL 1.9-2.7 [facility] No Panel InformationOrdered By: Polly Velasquez on 02-15-2023 Estimated GFR (CKD-EPI) > 60.0 mL/Min [facility] Creatinine Clearance (Chem 81.85 [facility] Platelet mean volume Auto (B ld) [Entitic vol]Ordered By: Polly Velasquez on 02-15-2023 Platelet mean volume (Bld) [Entitic vol] 7.1 fL 6.6-10.1 [facility] Platelets Auto (Bld) [#/Vol] Ordered By: Polly Velasquez on 02-15-2023 Platelets (Bld) [#/Vol] 182 10*3/uL 150-450 [facility] Potassium [Moles/volume] in Serum or PlasmaOrdered By: Polly Velasquez on 02-15-2023 Potassium [Moles/Vol] 3.6 mmol/L 3.5-5.1 [facility] RBC Auto (Bld) [#/Vol]Ordere d By: Polly Velasquez on 02-15-2023 RBC (Bld) [#/Vol] 4.42 10*6/uL 3.90-5.60 [facility] Serum or plasma anion gap de terminationOrdered By: Polly Velasquez on 02-15-2023 Anion gap [Moles/Vol] 9.4 mmol/L 6.0-15.0 [facility] Sodium [Moles/volume] in Ser um or PlasmaOrdered By: Polly Velasquez on 02-15-2023 Sodium [Moles/Vol] 135 mmol/L 136-145 [facility] Urea nitrogen [Mass/volume] in Serum or PlasmaOrdered By: Polly Velasquez on 02-15-2023 Urea nitrogen [Mass/Vol] 24 mg/dL 7-25 [facility] XR chest 2V*on 02-15-2023 XR chest 2V* Normal [facility] Activated partial thrombopla stin time (aPTT) in platelet poor plasma by coagulation aOrdered By: Viridiana Thompson on 02-14-2023 aPTT Coag (PPP) [Time] 30.9 s 25.1-36.5 [facility] Comment on above: A hematocrit value g reater than 55% may lead to inaccurate results in coagulation testing. Patients having hematocrit values >55% require a special collection tube for coagulation studies. Please contact the laboratory at [phone] for redraw instructions. Basic Metabolic Panelon 11-3 -2022 Anion gap [Moles/Vol] 9.4 mmol/L Normal 6.0-15.0 [facility] Comment on above: Performed By: #### P T, CBC, BMP, PTT, MG ####[address] [address] [facility] Calcium [Mass/Vol] 10.7 mg/dL High 8.6-10.3 [facility] Comment on above: Performed By: #### P T, CBC, BMP, PTT, MG ####[address] [address] [facility] Chloride [Moles/Vol] 103 mmol/L Normal 98-107 [facility] Comment on above: Performed By: #### P T, CBC, BMP, PTT, MG ####[address] [address] [facility] CO2 [Moles/Vol] 25.7 mmol/L Normal 21.0-31.0 [facility] Comment on above: Performed By: #### P T, CBC, BMP, PTT, MG ####[place] [id number] [facility] Creatinine [Mass/Vol] 1.36 mg/dL High 0.70-1.30 [facility] Comment on above: Performed By: #### P T, CBC, BMP, PTT, MG ####[address] [address] [place] Creatinine Clr Calc Pharmacy 68.61 Normal [facility] Comment on above: Performed By: #### P T, CBC, BMP, PTT, MG ####[address] [address] [place] GFR/1.73 sq M.predicted MDRD (S/P/Bld) [Vol rate/Area] 57.752 mL/min/{1.73_m2} Normal [facility] Comment on above: Performed By: #### P T, CBC, BMP, PTT, MG ####[place] [address] Glucose [Mass/Vol] 144 mg/dL High 70-100 [facility] Comment on above: Result Comment: [place] Glucose Reference Range is dependent on time and content of last meal. Glucose of more than 200 mg/dL in a nonstressed, ambulatory subject supports the diagnosis of Diabetes Mellitus. ADA recommended reference range Performed By: #### P T, CBC, BMP, PTT, MG ####[place] [address] Potassium [Moles/Vol] 4.1 mmol/L Normal 3.5-5.1 [facility] Comment on above: Performed By: #### P T, CBC, BMP, PTT, MG ####[address] Sodium [Moles/Vol] 134 mmol/L Low 136-145 [facility] Comment on above: Performed By: #### P T, CBC, BMP, PTT, MG ####[address] Urea nitrogen [Mass/Vol] 27 mg/dL High 7-25 [facility] Comment on above: Performed By: #### P T, CBC, BMP, PTT, MG ####[address] Basophils Auto (Bld) [#/Vol] Ordered By: Viridiana Thompson on 02-14-2023 Basophils (Bld) [#/Vol] 0.0 10*3/uL 0.0-0.2 [facility] Basophils/100 WBC Auto (Bld) Ordered By: Viridiana Thompson on 02-14-2023 Basophils/100 WBC (Bld) 0.6 % . [facility] Complete Blood Count Auto Di ffon 02-14-2023 Basophils (Bld) [#/Vol] 0.0 10*3/uL Normal 0.0-0.2 [facility] Comment on above: Result Comment: PERF ORMED BY:[address] [place], [place] [phone] MEDICAL DIRECTORAPRIL VEGA M.D. Performed By: #### P T, CBC, BMP, PTT, MG ####[address] Basophils/100 WBC (Bld) 0.6 % Normal . [facility] Comment on above: Performed By: #### P T, CBC, BMP, PTT, MG ####[address] Eosinophils (Bld) [#/Vol] 0.4 10*3/uL Normal 0.0-0.45 [facility] Comment on above: Performed By: #### P T, CBC, BMP, PTT, MG ####[address] Eosinophils/100 WBC (Bld) 6.1 % Normal . [facility] Comment on above: Performed By: #### P T, CBC, BMP, PTT, MG ####[address] Erythrocyte distribution width (RBC) [Ratio] 15.8 % High 12.0-14.8 [facility] Comment on above: Performed By: #### P T, CBC, BMP, PTT, MG ####[address] Hematocrit (Bld) [Volume fraction] 37.3 % Low 38.8-50.0 [facility] Comment on above: Performed By: #### P T, CBC, BMP, PTT, MG ####[address] Hemoglobin (Bld) [Mass/Vol] 12.4 g/dL Low 13.0-17.0 [facility] Comment on above: Performed By: #### P T, CBC, BMP, PTT, MG ####[address] Lymphocytes (Bld) [#/Vol] 0.9 10*3/uL Low 1.00-4.8 [facility] Comment on above: Performed By: #### P T, CBC, BMP, PTT, MG ####[address] Lymphocytes/100 WBC (Bld) 15.0 % Normal . [facility] Comment on above: Performed By: #### P T, CBC, BMP, PTT, MG ####[address] MCH (RBC) [Entitic mass] 27.9 pg Normal 27.5-35.2 [facility] Comment on above: Performed By: #### P T, CBC, BMP, PTT, MG ####[address] MCV (RBC) [Entitic vol] 84.2 fL Normal 83.5-101 [facility] Comment on above: Performed By: #### P T, CBC, BMP, PTT, MG ####[address] Mean Corpuscular HGB Conc 33.2 g/dL Normal 32.5-35.6 [facility] Comment on above: Performed By: #### P T, CBC, BMP, PTT, MG ####[address] Monocytes (Bld) [#/Vol] 0.7 10*3/uL Normal 0.0-0.8 [facility] Comment on above: Performed By: #### P T, CBC, BMP, PTT, MG ####[address] Monocytes/100 WBC (Bld) 11.8 % Normal . [facility] Comment on above: Performed By: #### P T, CBC, BMP, PTT, MG ####[address] Neutrophils (Bld) [#/Vol] 4.0 10*3/uL Normal 1.8-7.7 [facility] Comment on above: Performed By: #### P T, CBC, BMP, PTT, MG ####[address] Neutrophils/100 WBC (Bld) 66.5 % Normal . [facility] Comment on above: Performed By: #### P T, CBC, BMP, PTT, MG ####[address] NRBC% 0.2 /100{WBC} Normal 0-0.5 [facility] Comment on above: Performed By: #### P T, CBC, BMP, PTT, MG ####[address] Platelet mean volume (Bld) [Entitic vol] 7.0 fL Normal 6.6-10.1 [facility] Comment on above: Performed By: #### P T, CBC, BMP, PTT, MG ####[address] Platelets (Bld) [#/Vol] 182 10*3/uL Normal 150-450 [facility] Comment on above: Performed By: #### P T, CBC, BMP, PTT, MG ####[address] RBC (Bld) [#/Vol] 4.43 10*6/uL Normal 3.90-5.60 [facility] Comment on above: Performed By: #### P T, CBC, BMP, PTT, MG ####[address] WBC (Bld) [#/Vol] 6.0 10*3/uL Normal 4.1-10.5 [facility] Comment on above: Performed By: #### P T, CBC, BMP, PTT, MG ####[address] ECG 12 lead ECGon 02-14-2023 ECG 12 lead ECG Normal [facility] Eosinophils Auto (Bld) [#/Vo l]Ordered By: Viridiana Thompson on 02-14-2023 Eosinophils (Bld) [#/Vol] 0.4 10*3/uL 0.0-0.45 [facility] Eosinophils/100 WBC Auto (Bl d)Ordered By: Viridiana Thompson on 02-14-2023 Eosinophils/100 WBC (Bld) 6.1 % . [facility] Glucose Poct Glucometerson 1 04-16-2022 Commemt1 Glu2: Cleaned Meter [facility] Comment on above: Result Comment: PERF ORMED BY:[place] [address] [place], [place] [phone] MEDICAL DIRECTORAPRIL VEGA M.D. Performed By: #### G LULS ####Point of Care testing, Glucose [Mass/Vol] 115 mg/dL Normal [facility] Comment on above: Result Comment: [facility] [place] Glucose Reference Range is dependent on time and content of last meal. Glucose of more than 200 mg/dL in a nonstressed, ambulatory subject supports the diagnosis of Diabetes Mellitus. Performed By: #### G LULS ####Point of Care testing, Commemt1 Glu2: Cleaned Meter [facility] Comment on above: Result Comment: PERF ORMED BY:[place] [address] [place], [place] [phone] MEDICAL DIRECTORAPRIL VEGA M.D. Performed By: #### G LULS ####Point of Care testing, Glucose [Mass/Vol] 171 mg/dL Normal [facility] Comment on above: Result Comment: [facility] [place] [facility] [place] Glucose Reference Range is dependent on time and content of last meal. Glucose of more than 200 mg/dL in a nonstressed, ambulatory subject supports the diagnosis of Diabetes Mellitus. Performed By: #### G LULS ####Point of Care testing, Commemt1 Glu2: Cleaned Meter [facility] Comment on above: Result Comment: PERF ORMED BY:[place] [address] [place] [place], [place] [phone] MEDICAL DIRECTORAPRIL VEGA M.D. Performed By: #### G LULS ####Point of Care testing, Glucose [Mass/Vol] 189 mg/dL Normal [facility] Comment on above: Result Comment: [place] om Glucose Reference Range is dependent on time and content of last meal. Glucose of more than 200 mg/dL in a nonstressed, ambulatory subject supports the diagnosis of Diabetes Mellitus. Performed By: #### G LULS ####Point of Care testing, Commemt1 Glu2: Cleaned Meter [facility] Comment on above: Result Comment: PERF ORMED BY:[place] [address] [address] [place], [place] [phone] MEDICAL DIRECTORAPRIL VEGA M.D. Performed By: #### G LULS ####Point of Care testing, Glucose [Mass/Vol] 148 mg/dL Normal [facility] Comment on above: Result Comment: [place] om Glucose Reference Range is dependent on time and content of last meal. Glucose of more than 200 mg/dL in a nonstressed, ambulatory subject supports the diagnosis of Diabetes Mellitus. Performed By: #### G LULS ####Point of Care testing, Commemt1 Glu2: Cleaned Meter [facility] Comment on above: Result Comment: PERF ORMED BY:[place] [address] [place], [place] [phone] MEDICAL JORGE VEGA M.D. Performed By: #### G LULS ####Point of Care testing, Glucose [Mass/Vol] 144 mg/dL Normal [facility] Comment on above: Result Comment: [place] om Glucose Reference Range is dependent on time and content of last meal. Glucose of more than 200 mg/dL in a nonstressed, ambulatory subject supports the diagnosis of Diabetes Mellitus. Performed By: #### G LULS ####Point of Care testing, INR in Platelet poor plasma by Coagulation assayOrdered By: Viridiana Thompson on 02-14-2023 INR Coag (PPP) [Relative time] 1.0 {INR} [facility] Comment on above: INR Therapeutic Rang e A) Pre- and Peroperative OAT started two weeks before surgery. NOT HIP SURGERY: 1.5 - 2.5 HIP SURGERY: 2 - 3B) Primary and secondary prevention of venous THROMBOSIS: 2 - 3C) Active venous thrombosis, pulmonary embolismand prevention of recurrent venous thrombosis: 2 - 3D) Prevention of arterial thromboembolismincluding patients with mechanical heart valves: 3 - 4.5 Lymphocytes Auto (Bld) [#/Vo l]Ordered By: Viridiana Thompson on 02-14-2023 Lymphocytes (Bld) [#/Vol] 0.9 10*3/uL 1.00-4.8 [facility] Lymphocytes/100 WBC Auto (Bl d)Ordered By: Viridiana Thompson on 02-14-2023 Lymphocytes/100 WBC (Bld) 15.0 % . [facility] Magnesiumon 02-14-2023 Magnesium [Mass/Vol] 1.8 mg/dL Low 1.9-2.7 [facility] Comment on above: Result Comment: PERF ORMED BY:[facility] [place], [place] [phone] MEDICAL DIRECTORAPRIL VEGA M.D. Performed By: #### P T, CBC, BMP, PTT, MG ####[facility] [place] [address] [facility] Monocytes Auto (Bld) [#/Vol] Ordered By: Viridiana Thompson on 02-14-2023 Monocytes (Bld) [#/Vol] 0.7 10*3/uL 0.0-0.8 [facility] Monocytes/100 WBC Auto (Bld) Ordered By: Viridiana Thompson on 02-14-2023 Monocytes/100 WBC (Bld) 11.8 % . [facility] Neutrophils Auto (Bld) [#/Vo l]Ordered By: Viridiana Thompson on 02-14-2023 Neutrophils (Bld) [#/Vol] 4.0 10*3/uL 1.8-7.7 [facility] Neutrophils/100 WBC Auto (Bl d)Ordered By: Viridiana Thompson on 02-14-2023 Neutrophils/100 WBC (Bld) 66.5 % . [facility] No Panel InformationOrdered By: Roberto Fitch on 02-14-2023 Bedside Glucose Comment Glu2: cleaned meter [facility] Nucleated erythrocytes [Pres ence] in Blood by Automated countOrdered By: Viridiana Thompson on 02-14-2023 Nucleated RBC Auto Ql (Bld) 0.2 /100{WBC} 0-0.5 [facility] Partial Thromboplastin Timeo n 02-14-2023 aPTT Coag (Bld) [Time] 30.9 s Normal 25.1-36.5 [facility] Comment on above: Result Comment: A he matocrit value greater than 55% may lead to inaccurate results in coagulation testing. Patients having hematocrit values >55% require a special collection tube for coagulation studies. Please contact the laboratory at [phone] for redraw instructions.PERFORMED BY:[place] [address] [place], [place] [phone] MEDICAL DIRECTORAPRIL VEGA M.D. Performed By: #### P T, CBC, BMP, PTT, MG ####[facility] [id number] [place] [address] [facility] Prothrombin Time INRon 02-14 INR Coag (PPP) [Relative time] 1.0 {INR} Normal [facility] Comment on above: Result Comment: INR Therapeutic Range A) Pre- and Peroperative OAT started two weeks before surgery. NOT HIP SURGERY: 1.5 - 2.5 HIP SURGERY: 2 - 3 B) Primary and secondary prevention of venous THROMBOSIS: 2 - 3 C) Active venous thrombosis, pulmonary embolism and prevention of recurrent venous thrombosis: 2 - 3 D) Prevention of arterial thromboembolism including patients with mechanical heart valves: 3 - 4.5 Performed By: #### P T, CBC, BMP, PTT, MG ####[facility] [id number] [place] [address] [facility] PT Coag (PPP) [Time] 11.9 s Normal 9.0-12.9 [facility] Comment on above: Result Comment: A he matocrit value greater than 55% may lead to inaccurate results in coagulation testing. Patients having hematocrit values >55% require a special collection tube for coagulation studies. Please contact the laboratory at [phone] for redraw instructions. Performed By: #### P T, CBC, BMP, PTT, MG ####[place] [address] Prothrombin time (PT)Ordered By: Viridiana Thompson on 02-14-2023 PT Coag (PPP) [Time] 11.9 s 9.0-12.9 [facility] Comment on above: A hematocrit value g reater than 55% may lead to inaccurate results in coagulation testing. Patients having hematocrit values >55% require a special collection tube for coagulation studies. Please contact the laboratory at [phone] for redraw instructions. WBC Auto (Bld) [#/Vol]Ordere d By: Viridiana Thompson on 02-14-2023 WBC (Bld) [#/Vol] 6.0 10*3/uL 4.1-10.5 [facility] XR chest 1V portableon 02-14 XR chest 1V portable Normal [facility] Basic Metabolic Panelon 01-17 Anion gap [Moles/Vol] 9.0 mmol/L Normal 6.0-15.0 [facility] Comment on above: Performed By: #### C BCNO, BMP, MG ####[place] [address] Calcium [Mass/Vol] 10.9 mg/dL High 8.6-10.3 [facility] Comment on above: Performed By: #### C BCNO, BMP, MG ####[place] [address] [place] [id number] [facility] Chloride [Moles/Vol] 104 mmol/L Normal 98-107 [facility] Comment on above: Performed By: #### C BCNO, BMP, MG ####[place] [id number] [facility] CO2 [Moles/Vol] 25.9 mmol/L Normal 21.0-31.0 [facility] Comment on above: Performed By: #### C BCNO, BMP, MG ####[place] [address] [place] [address] [facility] Creatinine [Mass/Vol] 1.29 mg/dL Normal 0.70-1.30 [facility] Comment on above: Performed By: #### C LUIS VILLALOBOS, MG ####[place] [address] [place] [address] [facility] Creatinine Clr Calc Pharmacy 72.38 [facility] Comment on above: Performed By: #### C LUIS VILLALOBOS, MG ####[place] [address] [place] [address] [facility] GFR/1.73 sq M.predicted MDRD (S/P/Bld) [Vol rate/Area] mL/min/{1.73_m2} [facility] Comment on above: Performed By: #### C LUIS VILLALOBOS, MG ####[address] Glucose [Mass/Vol] 145 mg/dL High 70-100 [facility] Comment on above: Result Comment: [place] Glucose Reference Range is dependent on time and content of last meal. Glucose of more than 200 mg/dL in a nonstressed, ambulatory subject supports the diagnosis of Diabetes Mellitus. ADA recommended reference range Performed By: #### C LUIS VILLALOBOS, MG ####[address] Potassium [Moles/Vol] 4.9 mmol/L Normal 3.5-5.1 [facility] Comment on above: Performed By: #### C LUIS VILLALOBOS, MG ####[place] [id number] [facility] Sodium [Moles/Vol] 134 mmol/L Low 136-145 [facility] Comment on above: Performed By: #### C LUIS VILLALOBOS, MG ####[place] [address] [place] [id number] [facility] Urea nitrogen [Mass/Vol] 29 mg/dL High 7-25 [facility] Comment on above: Performed By: #### C LUIS VILLALOBOS, MG ####[place] [id number] [facility] Glucose Poct Glucometerson 1 04-15-2022 Glucose [Mass/Vol] 169 mg/dL Normal [facility] Comment on above: Result Comment: [place] Glucose Reference Range is dependent on time and content of last meal. Glucose of more than 200 mg/dL in a nonstressed, ambulatory subject supports the diagnosis of Diabetes Mellitus.PERFORMED BY:[place] [address] [place], [place] [phone] MEDICAL DIRECTORAPRIL VEGA M.D. Performed By: #### G LULS ####Point of Care testing, Commemt1 Glu2: Cleaned Meter [facility] Comment on above: Result Comment: PERF ORMED BY:[place] [address] [place], [place] [phone] MEDICAL JORGE VEGA M.D. Performed By: #### G LULS ####Point of Care testing, Glucose [Mass/Vol] 131 mg/dL Normal [facility] Comment on above: Result Comment: [facility] [place] Glucose Reference Range is dependent on time and content of last meal. Glucose of more than 200 mg/dL in a nonstressed, ambulatory subject supports the diagnosis of Diabetes Mellitus. Performed By: #### G LULS ####Point of Care testing, Commemt1 Glu2: Cleaned Meter [facility] Comment on above: Result Comment: PERF ORMED BY:[place] [address] [place], [place] [phone] MEDICAL JORGE VEGA M.D. Performed By: #### G LULS ####Point of Care testing, Glucose [Mass/Vol] 202 mg/dL Normal [facility] Comment on above: Result Comment: [place] Glucose Reference Range is dependent on time and content of last meal. Glucose of more than 200 mg/dL in a nonstressed, ambulatory subject supports the diagnosis of Diabetes Mellitus. Performed By: #### G LULS ####Point of Care testing, Hemogram CBC Without Diffon 02-13-2023 Erythrocyte distribution width (RBC) [Ratio] 15.7 % High 12.0-14.8 [facility] Comment on above: Performed By: #### C LUIS VILLALOBOS, MG ####[address] Hematocrit (Bld) [Volume fraction] 35.0 % Low 38.8-50.0 [facility] Comment on above: Performed By: #### C LUIS VILLALOBOS, MG ####[address] Hemoglobin (Bld) [Mass/Vol] 11.6 g/dL Low 13.0-17.0 [facility] Comment on above: Performed By: #### C LUIS VILLALOBOS, MG ####[address] MCH (RBC) [Entitic mass] 28.0 pg Normal 27.5-35.2 [facility] Comment on above: Performed By: #### C LUIS VILLALOBOS, MG ####[address] MCV (RBC) [Entitic vol] 84.2 fL Normal 83.5-101 [facility] Comment on above: Performed By: #### C LUIS VILLALOBOS, MG ####[address] Mean Corpuscular HGB Conc 33.2 g/dL Normal 32.5-35.6 [facility] Comment on above: Performed By: #### C LUIS VILLALOBOS, MG ####[address] Platelet mean volume (Bld) [Entitic vol] 7.1 fL Normal 6.6-10.1 [facility] Comment on above: Result Comment: PERF ORMED BY:[address] [place], [place] [phone] MEDICAL DIRECTORAPRIL VEGA M.D. Performed By: #### C LUIS VILLALOBOS, MG ####[address] [place] [address] [facility] Platelets (Bld) [#/Vol] 181 10*3/uL Normal 150-450 [facility] Comment on above: Performed By: #### C BCNO, BMP, MG ####[place] [address] [place] [id number] [facility] RBC (Bld) [#/Vol] 4.15 10*6/uL Normal 3.90-5.60 [facility] Comment on above: Performed By: #### C BCNO, BMP, MG ####[place] [address] [place] [id number] [facility] WBC (Bld) [#/Vol] 5.8 10*3/uL Normal 4.1-10.5 [facility] Comment on above: Performed By: #### C BCNO, BMP, MG ####[place] [address] [place] [address] [facility] Magnesiumon 02-13-2023 Magnesium [Mass/Vol] 1.9 mg/dL Normal 1.9-2.7 [facility] Comment on above: Result Comment: PERF ORMED BY:[address] [place], [place] [phone] MEDICAL DIRECTORAPRIL VEGA M.D. Performed By: #### C BCNO, BMP, MG ####[place] [address] [place] [id number] [facility] Alanine aminotransferase [En zymatic activity/volume] in Serum or PlasmaOrdered By: Humberto Zeng on 02-12-2023 ALT [Catalytic activity/Vol] 13 U/L 7-52 [facility] Alkaline phosphatase [Enzyma tic activity/volume] in Serum or PlasmaOrdered By: Humberto Zeng on 02-12-2023 ALP [Catalytic activity/Vol] 103 U/L 34-104 [facility] Aspartate aminotransferase [ Enzymatic activity/volume] in Serum or PlasmaOrdered By: Humberto Zeng on 02-12-2023 AST [Catalytic activity/Vol] 20 U/L 13-39 [facility] B-Type Natriuretic Peptideon 02-12-2023 Natriuretic peptide B (Bld) [Mass/Vol] 151.0 pg/mL High 5-100 [facility] Comment on above: Result Comment: PERF ORMED BY:[place] [address] [place], [place] [phone] MEDICAL DIRECTORAPRIL VEGA M.D. Performed By: #### B REPRODUCER ####[address] Bilirubin.total [Mass/volume ] in Serum or PlasmaOrdered By: Humberto Zeng on 02-12-2023 Bilirubin [Mass/Vol] 0.5 mg/dL 0.3-1.0 [facility] Complete Blood Count Auto Di ffon 02-12-2023 Basophils (Bld) [#/Vol] 0.0 10*3/uL Normal 0.0-0.2 [facility] Comment on above: Result Comment: PERF ORMED BY:[address] [place]ie[place], [place] [phone] MEDICAL DIRECTORAPRLI VEGA M.D. Performed By: #### P TT, PT, CMP, HS TROP, CK, MG, CBC ####[address] Basophils/100 WBC (Bld) 0.6 % Normal . [facility] Comment on above: Performed By: #### P TT, PT, CMP, HS TROP, CK, MG, CBC ####[address] Eosinophils (Bld) [#/Vol] 0.4 10*3/uL Normal 0.0-0.45 [facility] Comment on above: Performed By: #### P TT, PT, CMP, HS TROP, CK, MG, CBC ####[address] Eosinophils/100 WBC (Bld) 6.2 % Normal . [facility] Comment on above: Performed By: #### P TT, PT, CMP, HS TROP, CK, MG, CBC ####[address] Erythrocyte distribution width (RBC) [Ratio] 15.9 % High 12.0-14.8 [facility] Comment on above: Performed By: #### P TT, PT, CMP, HS TROP, CK, MG, CBC ####[address] Hematocrit (Bld) [Volume fraction] 38.8 % Normal 38.8-50.0 [facility] Comment on above: Performed By: #### P TT, PT, CMP, HS TROP, CK, MG, CBC ####[address] Hemoglobin (Bld) [Mass/Vol] 12.7 g/dL Low 13.0-17.0 [facility] Comment on above: Performed By: #### P TT, PT, CMP, HS TROP, CK, MG, CBC ####[address] Lymphocytes (Bld) [#/Vol] 1.1 10*3/uL Normal 1.00-4.8 [facility] Comment on above: Performed By: #### P TT, PT, CMP, HS TROP, CK, MG, CBC ####[address] Lymphocytes/100 WBC (Bld) 18.7 % Normal . [facility] Comment on above: Performed By: #### P TT, PT, CMP, HS TROP, CK, MG, CBC ####[address] MCH (RBC) [Entitic mass] 27.7 pg Normal 27.5-35.2 [facility] Comment on above: Performed By: #### P TT, PT, CMP, HS TROP, CK, MG, CBC ####[address] MCV (RBC) [Entitic vol] 84.8 fL Normal 83.5-101 [facility] Comment on above: Performed By: #### P TT, PT, CMP, HS TROP, CK, MG, CBC ####[address] Mean Corpuscular HGB Conc 32.7 g/dL Normal 32.5-35.6 [facility] Comment on above: Performed By: #### P TT, PT, CMP, HS TROP, CK, MG, CBC ####[address] Monocytes (Bld) [#/Vol] 0.6 10*3/uL Normal 0.0-0.8 [facility] Comment on above: Performed By: #### P TT, PT, CMP, HS TROP, CK, MG, CBC ####[address] Monocytes/100 WBC (Bld) 15.38 % Normal 0.00-20.00 [facility] Comment on above: Performed By: #### P TT, PT, CMP, HS TROP, CK, MG, CBC ####[address] Monocytes/100 WBC (Bld) 10.7 % Normal . [facility] Comment on above: Performed By: #### P TT, PT, CMP, HS TROP, CK, MG, CBC ####[address] Neutrophils (Bld) [#/Vol] 3.9 10*3/uL Normal 1.8-7.7 [facility] Comment on above: Performed By: #### P TT, PT, CMP, HS TROP, CK, MG, CBC ####[address] Neutrophils/100 WBC (Bld) 63.8 % Normal . [facility] Comment on above: Performed By: #### P TT, PT, CMP, HS TROP, CK, MG, CBC ####[address] NRBC% 0.1 /100{WBC} Normal 0-0.5 [facility] Comment on above: Performed By: #### P TT, PT, CMP, HS TROP, CK, MG, CBC ####[address] Platelet mean volume (Bld) [Entitic vol] 7.2 fL Normal 6.6-10.1 [facility] Comment on above: Performed By: #### P TT, PT, CMP, HS TROP, CK, MG, CBC ####[address] Platelets (Bld) [#/Vol] 205 10*3/uL Normal 150-450 [facility] Comment on above: Performed By: #### P TT, PT, CMP, HS TROP, CK, MG, CBC ####[address] RBC (Bld) [#/Vol] 4.58 10*6/uL Normal 3.90-5.60 [facility] Comment on above: Performed By: #### P TT, PT, CMP, HS TROP, CK, MG, CBC ####[address] WBC (Bld) [#/Vol] 6.1 10*3/uL Normal 4.1-10.5 [facility] Comment on above: Performed By: #### P TT, PT, CMP, HS TROP, CK, MG, CBC ####[address] Comprehensive Metabolic Pane anny 02-12-2023 Albumin [Mass/Vol] 4.0 g/dL Normal 3.5-5.7 [facility] Comment on above: Performed By: #### P TT, PT, CMP, HS TROP, CK, MG, CBC ####[address] Albumin/Globulin [Mass ratio] 1.3 {ratio} Normal [facility] Comment on above: Performed By: #### P TT, PT, CMP, HS TROP, CK, MG, CBC ####[address] ALP [Catalytic activity/Vol] 103 U/L Normal 34-104 [facility] Comment on above: Performed By: #### P TT, PT, CMP, HS TROP, CK, MG, CBC ####[address] ALT [Catalytic activity/Vol] 13 U/L Normal 7-52 [facility] Comment on above: Performed By: #### P TT, PT, CMP, HS TROP, CK, MG, CBC ####[address] Anion gap [Moles/Vol] 8.9 mmol/L Normal 6.0-15.0 [facility] Comment on above: Performed By: #### P TT, PT, CMP, HS TROP, CK, MG, CBC ####[address] AST [Catalytic activity/Vol] 20 U/L Normal 13-39 [facility] Comment on above: Performed By: #### P TT, PT, CMP, HS TROP, CK, MG, CBC ####[address] Bilirubin [Mass/Vol] 0.5 mg/dL Normal 0.3-1.0 [facility] Comment on above: Performed By: #### P TT, PT, CMP, HS TROP, CK, MG, CBC ####[address] Calcium [Mass/Vol] 11.3 mg/dL High 8.6-10.3 [facility] Comment on above: Performed By: #### P TT, PT, CMP, HS TROP, CK, MG, CBC ####[address] Chloride [Moles/Vol] 103 mmol/L Normal 98-107 [facility] Comment on above: Performed By: #### P TT, PT, CMP, HS TROP, CK, MG, CBC ####[address] CO2 [Moles/Vol] 28.3 mmol/L Normal 21.0-31.0 [facility] Comment on above: Performed By: #### P TT, PT, CMP, HS TROP, CK, MG, CBC ####[address] Creatinine [Mass/Vol] 1.33 mg/dL High 0.70-1.30 [facility] Comment on above: Performed By: #### P TT, PT, CMP, HS TROP, CK, MG, CBC ####[address] Creatinine Clr Calc Pharmacy 70.20 [facility] Comment on above: Performed By: #### P TT, PT, CMP, HS TROP, CK, MG, CBC ####[address] GFR/1.73 sq M.predicted MDRD (S/P/Bld) [Vol rate/Area] 59.319 mL/min/{1.73_m2} [facility] Comment on above: Performed By: #### P TT, PT, CMP, HS TROP, CK, MG, CBC ####[address] Globulin (S) [Mass/Vol] 3.2 g/dL [facility] Comment on above: Performed By: #### P TT, PT, CMP, HS TROP, CK, MG, CBC ####[address] Glucose [Mass/Vol] 177 mg/dL High 70-100 [facility] Comment on above: Result Comment: [place] Glucose Reference Range is dependent on time and content of last meal. Glucose of more than 200 mg/dL in a nonstressed, ambulatory subject supports the diagnosis of Diabetes Mellitus. ADA recommended reference range Performed By: #### P TT, PT, CMP, HS TROP, CK, MG, CBC ####[address] Potassium [Moles/Vol] 4.2 mmol/L Normal 3.5-5.1 [facility] Comment on above: Performed By: #### P TT, PT, CMP, HS TROP, CK, MG, CBC ####[address] Protein [Mass/Vol] 7.2 g/dL Normal 6.4-8.9 [facility] Comment on above: Performed By: #### P TT, PT, CMP, HS TROP, CK, MG, CBC ####[address] Sodium [Moles/Vol] 136 mmol/L Normal 136-145 [facility] Comment on above: Performed By: #### P TT, PT, CMP, HS TROP, CK, MG, CBC ####[place] [id number] [facility] Urea nitrogen [Mass/Vol] 30 mg/dL High 7-25 [facility] Comment on above: Performed By: #### P TT, PT, CMP, HS TROP, CK, MG, CBC ####[address] [address] [facility] Creatine Kinaseon 02-12-2023 CK [Catalytic activity/Vol] 102 U/L Normal [facility] Comment on above: Performed By: #### P TT, PT, CMP, HS TROP, CK, MG, CBC ####[place] [id number] [facility] Creatine kinase [Enzymatic a ctivity/volume] in Serum or PlasmaOrdered By: Humberto Zeng on 02-12-2023 CK [Catalytic activity/Vol] 102 U/L [facility] ECG 12 lead ECGon 02-12-2023 ECG 12 lead ECG Normal [facility] Globulin Calc (S) [Mass/Vol] Ordered By: Humberto Zeng on 02-12-2023 Globulin (S) [Mass/Vol] 3.2 g/dL [facility] Glucose Poct Glucometerson 1 04-14-2022 Commemt1 Glu2: Cleaned Meter Normal [facility] Comment on above: Result Comment: PERF ORMED BY:[address], [place] [phone] MEDICAL DIRECTORAPRIL VEGA M.D. Performed By: #### G LULS ####Point of Care testing, Glucose [Mass/Vol] 118 mg/dL Normal [facility] Comment on above: Result Comment: [place] om Glucose Reference Range is dependent on time and content of last meal. Glucose of more than 200 mg/dL in a nonstressed, ambulatory subject supports the diagnosis of Diabetes Mellitus. Performed By: #### G LULS ####Point of Care testing, Commemt1 [facility] Comment on above: Result Comment: Glu2 : WILL NOTIFY DR/RN Performed By: #### G LULS ####Point of Care testing, Commemt2 Cleaned Meter [facility] Comment on above: Result Comment: PERF ORMED BY:[address] [place], [place] [phone] MEDICAL JORGE VEGA M.D. Performed By: #### G LULS ####Point of Care testing, Glucose [Mass/Vol] 171 mg/dL Normal [facility] Comment on above: Result Comment: [place] om Glucose Reference Range is dependent on time and content of last meal. Glucose of more than 200 mg/dL in a nonstressed, ambulatory subject supports the diagnosis of Diabetes Mellitus. Performed By: #### G LULS ####Point of Care testing, Magnesiumon 02-12-2023 Magnesium [Mass/Vol] 2.0 mg/dL Normal 1.9-2.7 [facility] Comment on above: Result Comment: PERF ORMED BY:[address] [place], [place] [phone] MEDICAL JORGE VEGA M.D. Performed By: #### P TT, PT, CMP, HS TROP, CK, MG, CBC ####[facility] [address] [place], [place] [address] [address] [facility] Monocyte distribution width [Entitic volume] in Blood by AutomatedOrdered By: Humberto Zeng on 02-12-2023 Monocyte distribution width Auto (Bld) [Entitic vol] 15.38 % 0.00-20.00 [facility] Natriuretic peptide B [Mass/ Vol]Ordered By: Humberto Zeng on 02-12-2023 Natriuretic peptide B (Bld) [Mass/Vol] 151.0 pg/mL 5-100 [facility] No Panel InformationOrdered By: Humberto Zeng on 02-12-2023 Bedside Glucose #2 Comment Cleaned meter [facility] Partial Thromboplastin Timeo n 02-12-2023 aPTT Coag (Bld) [Time] 32.1 s Normal 25.1-36.5 [facility] Comment on above: Result Comment: A he matocrit value greater than 55% may lead to inaccurate results in coagulation testing. Patients having hematocrit values >55% require a special collection tube for coagulation studies. Please contact the laboratory at [phone] for redraw instructions.PERFORMED BY:[address] [place], [place] [phone] MEDICAL DIRECTORAPRIL VEGA M.D. Performed By: #### P TT, PT, CMP, HS TROP, CK, MG, CBC ####[address] [place] [address] [facility] Protein [Mass/volume] in Ser um or PlasmaOrdered By: Humberto Zeng on 02-12-2023 Protein [Mass/Vol] 7.2 g/dL 6.4-8.9 [facility] Prothrombin Time INRon 02-12 INR Coag (PPP) [Relative time] 1.0 {INR} Normal [facility] Comment on above: Result Comment: INR Therapeutic Range A) Pre- and Peroperative OAT started two weeks before surgery. NOT HIP SURGERY: 1.5 - 2.5 HIP SURGERY: 2 - 3 B) Primary and secondary prevention of venous THROMBOSIS: 2 - 3 C) Active venous thrombosis, pulmonary embolism and prevention of recurrent venous thrombosis: 2 - 3 D) Prevention of arterial thromboembolism including patients with mechanical heart valves: 3 - 4.5 Performed By: #### P TT, PT, CMP, HS TROP, CK, MG, CBC ####[facility] [address] [place] [address] [facility] PT Coag (PPP) [Time] 11.5 s Normal 9.0-12.9 [facility] Comment on above: Result Comment: A he matocrit value greater than 55% may lead to inaccurate results in coagulation testing. Patients having hematocrit values >55% require a special collection tube for coagulation studies. Please contact the laboratory at [phone] for redraw instructions. Performed By: #### P TT, PT, CMP, HS TROP, CK, MG, CBC ####[facility] [id number] [facility] Serum or plasma albumin/glob ulin mass ratioOrdered By: Humberto Zeng on 02-12-2023 Albumin/Globulin [Mass ratio] 1.3 {ratio} [facility] Troponin I High Sensitivityo n 02-12-2023 Troponin I High Sensitivity 12.0 pg/mL Normal 0.0-20.0 [facility] Comment on above: Result Comment: PERF ORMED BY:[address] [place], [place] [phone] MEDICAL DIRECTORAPRIL VEGA M.D. Performed By: #### P TT, PT, CMP, HS TROP, CK, MG, CBC ####[address] [place] [id number] [facility] Troponin I.cardiac [Mass/vol ume] in Serum or Plasma by Detection limit <= 0.01 ng/Ordered By: Humberto Zeng on 02-12-2023 Troponin I.cardiac DL <= 0.01 ng/mL [Mass/Vol] 12.0 pg/mL 0.0-20.0 [facility] XR chest 1V portableon 02-12 XR chest 1V portable Normal [facility] Albumin [Mass/volume] in Ser um or Plasma by Bromocresol green (BCG) dye binding methoOrdered By: Mina Reilly on 02-10-2023 Albumin BCG dye [Mass/Vol] 3.8 g/dL 3.5-5.7 [facility] Calcium [Mass/volume] in Ser um or PlasmaOrdered By: Mina Reilly on 02-10-2023 Calcium [Mass/Vol] 10.8 mg/dL 8.6-10.3 [facility] Carbon dioxide, total [Moles /volume] in Serum or PlasmaOrdered By: Mina Reilly on 02-10-2023 CO2 [Moles/Vol] 29.9 mmol/L 21.0-31.0 [facility] Chloride [Moles/volume] in S [place] or PlasmaOrdered By: Mina Reilly on 02-10-2023 Chloride [Moles/Vol] 99 mmol/L 98-107 [facility] Creatinine [Mass/volume] in Serum or PlasmaOrdered By: Mina Reilly on 02-10-2023 Creatinine [Mass/Vol] 1.58 mg/dL 0.70-1.30 [facility] Glucose [Mass/volume] in Ser um or PlasmaOrdered By: Mina Reilly on 02-10-2023 Glucose [Mass/Vol] 114 mg/dL 70-100 [facility] Comment on above: ADA recommended refe rence rangeRandom Glucose Reference Range is dependent on time and content of last meal. Glucose of more than 200 mg/dL in a nonstressed, ambulatory subject supports the diagnosis of Diabetes Mellitus. Magnesiumon 02-10-2023 Magnesium [Mass/Vol] 2.0 mg/dL Normal 1.9-2.7 [facility] Comment on above: Result Comment: PERF ORMED BY:[address] [place], [place] [phone] MEDICAL DIRECTORAPRIL VEGA M.D. Performed By: #### M G, RENAL ####[facility] [place] [address] [facility] Magnesium [Mass/volume] in S [place] or PlasmaOrdered By: Subhahs Duckworth on 02-10-2023 Magnesium [Mass/Vol] 2.0 mg/dL 1.9-2.7 [facility] No Panel InformationOrdered By: Mina Reilly on 02-10-2023 Estimated GFR (CKD-EPI) 48.242 mL/Min [facility] Creatinine Clearance (Chem 58.79 [facility] Phosphate [Mass/volume] in S [place] or PlasmaOrdered By: Mina Reilly on 02-10-2023 Phosphate [Mass/Vol] 2.5 mg/dL 2.5-4.5 [facility] Potassium [Moles/volume] in Serum or PlasmaOrdered By: Mina Reilly on 02-10-2023 Potassium [Moles/Vol] 3.1 mmol/L 3.5-5.1 [facility] Renal Function Panelon 02-10 Albumin [Mass/Vol] 3.8 g/dL Normal 3.5-5.7 [facility] Comment on above: Performed By: #### Hyun Snowden, RENAL ####[address] [place] [address] [facility] Anion gap [Moles/Vol] 12.2 mmol/L Normal 6.0-15.0 [facility] Comment on above: Performed By: #### Hyun Snowden, RENAL ####[address] [address] [facility] Calcium [Mass/Vol] 10.8 mg/dL High 8.6-10.3 [facility] Comment on above: Performed By: #### Hyun Snowden, RENAL ####[address] [address] [facility] Chloride [Moles/Vol] 99 mmol/L Normal 98-107 [facility] Comment on above: Performed By: #### Hyun Snowden, RENAL ####[address] [place] [address] [facility] CO2 [Moles/Vol] 29.9 mmol/L Normal 21.0-31.0 [facility] Comment on above: Performed By: #### Hyun Snowden, RENAL ####[address] [place] [address] [place] Creatinine [Mass/Vol] 1.58 mg/dL High 0.70-1.30 [facility] Comment on above: Performed By: #### Hyun Snowden, RENAL ####[address] [place] [address] [place] Creatinine Clr Calc Pharmacy 58.79 Normal [facility] Comment on above: Result Comment: PERF ORMED BY:[address] [place] [phone] MEDICAL DIRECTORAPRIL VEGA M.D. Performed By: #### M G, RENAL ####[address] [place] [address] [place] GFR/1.73 sq M.predicted MDRD (S/P/Bld) [Vol rate/Area] 48.242 mL/min/{1.73_m2} Normal [facility] Comment on above: Performed By: #### M G, RENAL ####[address] [place] [address] [facility] Glucose [Mass/Vol] 114 mg/dL High 70-100 [facility] Comment on above: Result Comment: [place] Glucose Reference Range is dependent on time and content of last meal. Glucose of more than 200 mg/dL in a nonstressed, ambulatory subject supports the diagnosis of Diabetes Mellitus. ADA recommended reference range Performed By: #### M G, RENAL ####[address] [place] [address] [facility] Phosphate [Mass/Vol] 2.5 mg/dL Normal 2.5-4.5 [facility] Comment on above: Performed By: #### Hyun Snowden, RENAL ####[address] [place] [address] [place] Potassium [Moles/Vol] 3.1 mmol/L Low 3.5-5.1 [facility] Comment on above: Performed By: #### M G, RENAL ####[address] [place] [address] [place] Sodium [Moles/Vol] 138 mmol/L Normal 136-145 [facility] Comment on above: Performed By: #### M G, RENAL ####[address] [place] [address] [facility] Urea nitrogen [Mass/Vol] 37 mg/dL High 7-25 [facility] Comment on above: Performed By: #### M Sp, RENAL ####[address] [place] [address] [facility] Serum or plasma anion gap de terminationOrdered By: Mina Appiahabundio on 02-10-2023 Anion gap [Moles/Vol] 12.2 mmol/L 6.0-15.0 [facility] Sodium [Moles/volume] in Ser um or PlasmaOrdered By: Mina Appiahabundio on 02-10-2023 Sodium [Moles/Vol] 138 mmol/L 136-145 [facility] Urea nitrogen [Mass/volume] in Serum or PlasmaOrdered By: Mina Appiahabundio on 02-10-2023 Urea nitrogen [Mass/Vol] 37 mg/dL 7 [facility] Basic Metabolic Panelon 01-17 Anion gap [Moles/Vol] 13.5 mmol/L Normal 6.0-15.0 [facility] Comment on above: Performed By: #### B MP ####[address] [address] [facility] Calcium [Mass/Vol] 10.8 mg/dL High 8.6-10.3 [facility] Comment on above: Performed By: #### B MP ####[address] [address] [facility] Chloride [Moles/Vol] 96 mmol/L Low 98-107 [facility] Comment on above: Performed By: #### B MP ####[address] [address] [facility] CO2 [Moles/Vol] 30.3 mmol/L Normal 21.0-31.0 [facility] Comment on above: Performed By: #### B MP ####[address] [place] [address] [facility] Creatinine [Mass/Vol] 1.70 mg/dL High 0.70-1.30 [facility] Comment on above: Performed By: #### B MP ####[address] [place] [address] [facility] Creatinine Clr Calc Pharmacy 55.13 Normal [facility] Comment on above: Result Comment: PERF ORMED BY:[address] [place] [id number] MEDICAL DIRECTORAPRIL VEGA M.D. Performed By: #### B MP ####[address] [place] [address] [place] GFR/1.73 sq M.predicted MDRD (S/P/Bld) [Vol rate/Area] 44.185 mL/min/{1.73_m2} Normal [facility] Comment on above: Performed By: #### B MP ####[address] [address] [facility] Glucose [Mass/Vol] 198 mg/dL High 70-100 [facility] Comment on above: Result Comment: [facility] [place] Glucose Reference Range is dependent on time and content of last meal. Glucose of more than 200 mg/dL in a nonstressed, ambulatory subject supports the diagnosis of Diabetes Mellitus. ADA recommended reference range Performed By: #### B MP ####[address] [address] [facility] Potassium [Moles/Vol] 2.8 mmol/L Off scale low 3.5-5.1 [facility] Comment on above: Result Comment: Crit ical Result Called to and read back by: EMILY RODRIGUEZ at: 02/09/2023 15:32:22 by:OSMAN Performed By: #### B MP ####[address] [address] [facility] Sodium [Moles/Vol] 137 mmol/L Normal 136-145 [facility] Comment on above: Performed By: #### B MP ####[address] [address] [facility] Urea nitrogen [Mass/Vol] 35 mg/dL High 7-25 [facility] Comment on above: Performed By: #### B MP ####[address] [address] [facility] Anion gap [Moles/Vol] 11.5 mmol/L Normal 6.0-15.0 [facility] Comment on above: Performed By: #### B MP ####[address] [place] [address] [facility] Calcium [Mass/Vol] 10.6 mg/dL High 8.6-10.3 [facility] Comment on above: Performed By: #### B MP ####[address] [place] [address] [facility] Chloride [Moles/Vol] 95 mmol/L Low 98-107 [facility] Comment on above: Performed By: #### B MP ####[address] [place] [address] [facility] CO2 [Moles/Vol] 33.0 mmol/L High 21.0-31.0 [facility] Comment on above: Performed By: #### B MP ####[address] [place] [address] [facility] Creatinine [Mass/Vol] 1.53 mg/dL High 0.70-1.30 [facility] Comment on above: Performed By: #### B MP ####[address] [address] [facility] Creatinine Clr Calc Pharmacy 61.18 [facility] Comment on above: Result Comment: PERF ORMED BY:[address] [place], [place] [phone] MEDICAL DIRECTORAPRIL VEGA M.D. Performed By: #### B MP ####[address] [address] [facility] GFR/1.73 sq M.predicted MDRD (S/P/Bld) [Vol rate/Area] 50.140 mL/min/{1.73_m2} [facility] Comment on above: Performed By: #### B MP ####[address] [address] [facility] Glucose [Mass/Vol] 112 mg/dL High 70-100 [facility] Comment on above: Result Comment: [place] Glucose Reference Range is dependent on time and content of last meal. Glucose of more than 200 mg/dL in a nonstressed, ambulatory subject supports the diagnosis of Diabetes Mellitus. ADA recommended reference range Performed By: #### B MP ####[address] [address] [facility] Potassium [Moles/Vol] 2.5 mmol/L Off scale low 3.5-5.1 [facility] Comment on above: Result Comment: Crit ical Result Called to and read back by: AUDREY MATHEW at: 02/09/2023 06:34:01 by:GILBERTO Performed By: #### B MP ####[address] [address] [facility] Sodium [Moles/Vol] 137 mmol/L Normal 136-145 [facility] Comment on above: Performed By: #### B MP ####[address] [id number] [facility] Urea nitrogen [Mass/Vol] 36 mg/dL High 7-25 [facility] Comment on above: Performed By: #### B MP ####[address] [address] [facility] Potassiumon 02-09-2023 Potassium [Moles/Vol] 3.3 mmol/L Low 3.5-5.1 [facility] Comment on above: Result Comment: PERF ORMED BY:[address] [place], [place] [phone] MEDICAL DIRECTORAPRIL VEGA M.D. Performed By: #### K ####[address] [address] [facility] Basic Metabolic Panelon 11-2 Anion gap [Moles/Vol] 11.8 mmol/L Normal 6.0-15.0 [facility] Comment on above: Performed By: #### P HOS, [id number], BMP ####[address] [address] [facility] Calcium [Mass/Vol] 10.5 mg/dL High 8.6-10.3 [facility] Comment on above: Performed By: #### P HOS, [id number], BMP ####[address] [place] [address] [facility] Chloride [Moles/Vol] 98 mmol/L Normal 98-107 [facility] Comment on above: Performed By: #### P HOS, [id number], BMP ####[address] [place] [address] [facility] CO2 [Moles/Vol] 30.9 mmol/L Normal 21.0-31.0 [facility] Comment on above: Performed By: #### P HOS, [id number], BMP ####[address] [address] [facility] Creatinine [Mass/Vol] 1.66 mg/dL High 0.70-1.30 [facility] Comment on above: Performed By: #### P HOS, [id number], BMP ####[address] [address] [facility] Creatinine Clr Calc Pharmacy 57.77 [facility] Comment on above: Performed By: #### P HOS, [id number], BMP ####[address] [address] [facility] GFR/1.73 sq M.predicted MDRD (S/P/Bld) [Vol rate/Area] 45.465 mL/min/{1.73_m2} [facility] Comment on above: Performed By: #### P HOS, [id number], BMP ####[address] [address] [facility] Glucose [Mass/Vol] 80 mg/dL Normal 70-100 [facility] Comment on above: Result Comment: [place] Glucose Reference Range is dependent on time and content of last meal. Glucose of more than 200 mg/dL in a nonstressed, ambulatory subject supports the diagnosis of Diabetes Mellitus. ADA recommended reference range Performed By: #### P HOS, [id number], BMP ####[address] [address] [place] Potassium [Moles/Vol] 2.7 mmol/L Off scale low 3.5-5.1 [facility] Comment on above: Result Comment: Crit ical Result Called to and read back by: HELIO HU at: 02/08/2023 05:49:44 by:[id number] Performed By: #### P HOS, [id number], BMP ####[address] [place] [address] [facility] Sodium [Moles/Vol] 138 mmol/L Normal 136-145 [facility] Comment on above: Performed By: #### P HOS, [id number], BMP ####[address] [place] [address] [facility] Urea nitrogen [Mass/Vol] 37 mg/dL High 10-09 [facility] Comment on above: Performed By: #### P HOS, [id number], BMP ####[address] [place] [address] [facility] ECG 12 lead ECGon 02-08-2023 ECG 12 lead ECG Normal [facility] ECH echo transthoracicon ECH echo transthoracic Normal [facility] Parathyrin.intact [Mass/volu me] in Serum or PlasmaOrdered By: Mina Reilly on 02-08-2023 Parathyrin.intact [Mass/Vol] 201.3 pg/mL [facility] Parathyroid Hormone Intacton 02-08-2023 Parathyroid Hormone Intact 201.3 pg/mL High [facility] Comment on above: Result Comment: PERF ORMED BY:[address] [place], [place] [phone] MEDICAL JORGE VEGA M.D. Performed By: #### P TH ####[address] [place] [address] [facility] Phosphoruson 02-08-2023 Phosphate [Mass/Vol] 4.2 mg/dL Normal 2.5-4.5 [facility] Comment on above: Performed By: #### P HOS, [id number], BMP ####[address] [place] [address] [facility] US renal BIon 02-08-2023 US renal BI Normal [facility] Vitamin D 25 Hydroxy Totalon 02-08-2023 Vitamin D 25 Hydroxy Total 43.1 ng/mL Normal 30-100 [facility] Comment on above: Result Comment: CATIE MIN D STATUS 25([place])VITAMIN D RANGE (ng/mL) Deficient <20 Insufficient 20 to <30 Sufficient 30 to 100 Reference: Sravan Drake, Ryne JACK, et al. Evaluation,treatment, and prevention of vitamin D deficiency; an Endocrine Society clinical practice guideline. JCEM. 2010; 96(7):191-.PERFORMED BY:[address] [place], [place] [phone] MEDICAL DIRECTORAPRIL VEGA M.D. Performed By: #### P HOS, [id number], BMP ####[facility] [id number] [place] [address] [facility] Vitamin D+Metabolites [Mass/ volume] in Serum or PlasmaOrdered By: Mina Reilly on 02-08-2023 Vitamin D+Metabolites [Mass/Vol] 43.1 ng/mL 30-100 [facility] Comment on above: VITAMIN D STATUS 25( [place])VITAMIN D RANGE (ng/mL) Deficient <20 Insufficient 20 to <30Sufficient 30 to 100Reference: Sravan Drake, Ryne JACK, et al. Evaluation,treatment, and prevention of vitamin D deficiency; an Endocrine Society clinical practice guideline. JCEM. 2010; 96(7):191-. Basic Metabolic Panelon 01-17 Anion gap [Moles/Vol] 12.3 mmol/L Normal 6.0-15.0 [facility] Comment on above: Performed By: #### B MP ####[facility] [place] [address] [facility] Calcium [Mass/Vol] 11.1 mg/dL High 8.6-10.3 [facility] Comment on above: Performed By: #### B MP ####[facility] [place] [address] [place] Chloride [Moles/Vol] 100 mmol/L Normal 98-107 [facility] Comment on above: Performed By: #### B MP ####[facility] [place] [address] [facility] CO2 [Moles/Vol] 29.3 mmol/L Normal 21.0-31.0 [facility] Comment on above: Performed By: #### B MP ####[address] [place] [address] [facility] Creatinine [Mass/Vol] 1.80 mg/dL High 0.70-1.30 [facility] Comment on above: Performed By: #### B MP ####[address] [address] [place] Creatinine Clr Calc Pharmacy 53.28 [facility] Comment on above: Result Comment: PERF ORMED BY:[address] [place] [phone] MEDICAL JORGE VEGA M.D. Performed By: #### B MP ####[address] [address] [facility] GFR/1.73 sq M.predicted MDRD (S/P/Bld) [Vol rate/Area] 41.256 mL/min/{1.73_m2} [facility] Comment on above: Performed By: #### B MP ####[address] [address] [facility] Glucose [Mass/Vol] 116 mg/dL High 70-100 [facility] Comment on above: Result Comment: [place] Glucose Reference Range is dependent on time and content of last meal. Glucose of more than 200 mg/dL in a nonstressed, ambulatory subject supports the diagnosis of Diabetes Mellitus. ADA recommended reference range Performed By: #### B MP ####[address] [address] [facility] Potassium [Moles/Vol] 3.6 mmol/L Significan t change down 3.5-5.1 [facility] Comment on above: Performed By: #### B MP ####[address] [address] [place] Sodium [Moles/Vol] 138 mmol/L Normal 136-145 [facility] Comment on above: Performed By: #### B MP ####[address] [address] [facility] Urea nitrogen [Mass/Vol] 34 mg/dL High 7-25 [facility] Comment on above: Performed By: #### B MP ####[address] [address] [facility] Anion gap [Moles/Vol] 8.2 mmol/L Normal 6.0-15.0 [facility] Comment on above: Order Comment: Comme nt redraw therapy in rm with pt Performed By: #### B MP ####[address] [address] [facility] Calcium [Mass/Vol] 10.8 mg/dL High 8.6-10.3 [facility] Comment on above: Order Comment: Comme nt redraw therapy in rm with pt Performed By: #### B MP ####[address] [address] [facility] Chloride [Moles/Vol] 106 mmol/L Normal 98-107 [facility] Comment on above: Order Comment: Comme nt redraw therapy in rm with pt Performed By: #### B MP ####[address] [address] [facility] CO2 [Moles/Vol] 26.1 mmol/L Normal 21.0-31.0 [facility] Comment on above: Order Comment: Comme nt redraw therapy in rm with pt Performed By: #### B MP ####[address] [address] [facility] Creatinine [Mass/Vol] 1.42 mg/dL High 0.70-1.30 [facility] Comment on above: Order Comment: Comme nt redraw therapy in rm with pt Performed By: #### B MP ####[address] [address] [place] Creatinine Clr Calc Pharmacy 67.53 Normal [facility] Comment on above: Order Comment: Comme nt redraw therapy in rm with pt Result Comment: PERF ORMED BY:[facility] [place], [place] [phone] MEDICAL DIRECTORAPIRL VEGA M.D. Performed By: #### B MP ####[address] [place] [address] [facility] GFR/1.73 sq M.predicted MDRD (S/P/Bld) [Vol rate/Area] 54.836 mL/min/{1.73_m2} Normal [facility] Comment on above: Order Comment: Comme nt redraw therapy in rm with pt Performed By: #### B MP ####[address] [address] [facility] Glucose [Mass/Vol] 177 mg/dL High 70-100 [facility] Comment on above: Order Comment: Comme nt redraw therapy in rm with pt Result Comment: [place] Glucose Reference Range is dependent on time and content of last meal. Glucose of more than 200 mg/dL in a nonstressed, ambulatory subject supports the diagnosis of Diabetes Mellitus. ADA recommended reference range Performed By: #### B MP ####[address] [address] [facility] Potassium [Moles/Vol] 6.3 mmol/L Off scale high 3.5-5.1 [facility] Comment on above: Order Comment: Comme nt redraw therapy in rm with pt Result Comment: Crit ical Result Called to and read back by: EMILY MCDANIELS at: 02/07/2023 11:56:44 by:JODIE Performed By: #### B MP ####[address] [address] [facility] Sodium [Moles/Vol] 134 mmol/L Low 136-145 [facility] Comment on above: Order Comment: Comme nt redraw therapy in rm with pt Performed By: #### B MP ####[address] [address] [facility] Urea nitrogen [Mass/Vol] 31 mg/dL High 7-25 [facility] Comment on above: Order Comment: Comme nt redraw therapy in rm with pt Performed By: #### B MP ####[address] [place] [id number] [facility] Anion gap [Moles/Vol] 8.5 mmol/L Normal 6.0-15.0 [facility] Comment on above: Performed By: #### B MP ####[address] [address] [facility] Calcium [Mass/Vol] 10.9 mg/dL High 8.6-10.3 [facility] Comment on above: Performed By: #### B MP ####[address] [address] [facility] Chloride [Moles/Vol] 105 mmol/L Normal 98-107 [facility] Comment on above: Performed By: #### B MP ####[place] [id number] [facility] CO2 [Moles/Vol] 27.4 mmol/L Normal 21.0-31.0 [facility] Comment on above: Performed By: #### B MP ####[address] [address] [facility] Creatinine [Mass/Vol] 1.40 mg/dL High 0.70-1.30 [facility] Comment on above: Performed By: #### B MP ####[place] [id number] [facility] Creatinine Clr Calc Pharmacy 68.50 Normal [facility] Comment on above: Result Comment: PERF ORMED BY:[address] [place], [place] [phone] MEDICAL JORGE VEGA M.D. Performed By: #### B MP ####[address] [address] [place] GFR/1.73 sq M.predicted MDRD (S/P/Bld) [Vol rate/Area] 55.778 mL/min/{1.73_m2} Normal [facility] Comment on above: Performed By: #### B MP ####[address] [place] [address] [facility] Glucose [Mass/Vol] 164 mg/dL High 70-100 [facility] Comment on above: Result Comment: [place] om Glucose Reference Range is dependent on time and content of last meal. Glucose of more than 200 mg/dL in a nonstressed, ambulatory subject supports the diagnosis of Diabetes Mellitus. ADA recommended reference range Performed By: #### B MP ####[address] [place] [address] [facility] Potassium [Moles/Vol] 5.9 mmol/L High 3.5-5.1 [facility] Comment on above: Performed By: #### B MP ####[address] [place] [address] [facility] Sodium [Moles/Vol] 135 mmol/L Low 136-145 [facility] Comment on above: Performed By: #### B MP ####[address] [place] [address] [facility] Urea nitrogen [Mass/Vol] 29 mg/dL High 7-25 [facility] Comment on above: Performed By: #### B MP ####[address] [place] [address] [facility] Creatinine [Mass/volume] in UrineOrdered By: Mina Reilly on 02-07-2023 Creatinine (U) [Mass/Vol] 12.0 mg/dL 14.0-26.0 [facility] Creatinine, Urine (Random)on 02-07-2023 Creatinine, Urine (Random) 12.0 mg/dL Low 14.0-26.0 [facility] Comment on above: Performed By: #### U UK MEGAN, [place] ####[address] [place] [address] [place] Glucose Glucometer (BldC) [M ass/Vol]Ordered By: Barry Cisneros on 02-07-2023 Glucose [Mass/Vol] 117 mg/dL [facility] Comment on above: Random Glucose Refer ence Range is dependent on time and content of last meal. Glucose of more than 200 mg/dL in a nonstressed, ambulatory subject supports the diagnosis of Diabetes Mellitus. Glucose Poct Glucometerson 1 04-09-2022 Glucose [Mass/Vol] 117 mg/dL Normal [facility] Comment on above: Result Comment: [place] om Glucose Reference Range is dependent on time and content of last meal. Glucose of more than 200 mg/dL in a nonstressed, ambulatory subject supports the diagnosis of Diabetes Mellitus.PERFORMED BY:[place] [address] [address] [place], [place] [phone] MEDICAL DIRECTORAPRIL VEGA M.D. Performed By: #### G LULS ####Point of Care testing, Glucose [Mass/Vol] 63 mg/dL Normal [facility] Comment on above: Result Comment: [place] om Glucose Reference Range is dependent on time and content of last meal. Glucose of more than 200 mg/dL in a nonstressed, ambulatory subject supports the diagnosis of Diabetes Mellitus.PERFORMED BY:[place] [address] [place], [place] [phone] MEDICAL JORGE VEGA M.D. Performed By: #### G LULS ####Point of Care testing, Potassium [Moles/volume] in UrineOrdered By: Mina Reilly on 02-07-2023 Potassium (U) [Moles/Vol] 70.6 mmol/L [facility] Comment on above: No reference range e stablished Potassium, Urine (Random)on 02-07-2023 Potassium, Urine (Random) 70.6 mmol/L Normal [facility] Comment on above: Result Comment: No r eference range establishedPERFORMED BY:[place] [address] [address] [place], [place] [phone] MEDICAL DIRECTORAPRIL VEGA M.D. Performed By: #### U CREA, UK, [place] ####[facility] [place] [address] [facility] Sodium [Moles/volume] in Uri neOrdered By: Mina Reilly on 02-07-2023 Sodium (U) [Moles/Vol] 63 mmol/L [facility] Comment on above: No reference range e stablished Sodium, Urine (Random)on Sodium (U) [Moles/Vol] 63 mmol/L Normal [facility] Comment on above: Result Comment: No r eference range established Performed By: #### U CREA, [place], [place] ####[facility] [id number] [place] [address] [place] Activated partial thrombopla stin time (aPTT) in platelet poor plasma by coagulation aOrdered By: Bobby Bernabe on 02-06-2023 aPTT Coag (PPP) [Time] 31.1 s 25.1-36.5 [facility] Comment on above: A hematocrit value g reater than 55% may lead to inaccurate results in coagulation testing. Patients having hematocrit values >55% require a special collection tube for coagulation studies. Please contact the laboratory at [phone] for redraw instructions. Alanine aminotransferase [En zymatic activity/volume] in Serum or PlasmaOrdered By: Bobby Bernabe on 02-06-2023 ALT [Catalytic activity/Vol] 16 U/L 7-52 [facility] Albumin [Mass/volume] in Ser um or Plasma by Bromocresol green (BCG) dye binding methoOrdered By: Bobby Bernabe on 02-06-2023 Albumin BCG dye [Mass/Vol] 4.1 g/dL 3.5-5.7 [facility] Alkaline phosphatase [Enzyma tic activity/volume] in Serum or PlasmaOrdered By: Bobby Bernabe on 02-06-2023 ALP [Catalytic activity/Vol] 108 U/L 34-104 [facility] Ammoniaon 02-06-2023 Ammonia (P) [Moles/Vol] 20 umol/L Normal 35 [facility] Comment on above: Result Comment: PERF ORMED BY:[facility] [place], [place] [phone] MEDICAL DIRECTORAPRIL VEGA M.D. Performed By: #### H S TROP, CMP, BNP, AMM, CK, PTT, MG, PT, TSH3 ####[facility] [place] [address] [facility] Ammonia [Moles/volume] in Pl asmaOrdered By: Bobby Bernabe on 02-06-2023 Ammonia (P) [Moles/Vol] 20 umol/L [facility] Aspartate aminotransferase [ Enzymatic activity/volume] in Serum or PlasmaOrdered By: Bobby Bernabe on 02-06-2023 AST [Catalytic activity/Vol] 21 U/L 39 [facility] B-Type Natriuretic Peptideon 02-06-2023 Natriuretic peptide B (Bld) [Mass/Vol] 151.0 pg/mL High 5-100 [facility] Comment on above: Result Comment: PERF ORMED BY:[address] [place], [place] [phone] MEDICAL DIRECTORAPRIL VEGA M.D. Performed By: #### H S TROP, CMP, BNP, AMM, CK, PTT, MG, PT, TSH3 ####[facility] [place] [address] [facility] Basophils Auto (Bld) [#/Vol] Ordered By: Bobby Bernabe on 02-06-2023 Basophils (Bld) [#/Vol] 0.1 10*3/uL 0.0-0.2 [facility] Basophils/100 WBC Auto (Bld) Ordered By: Bobby Bernabe on 02-06-2023 Basophils/100 WBC (Bld) 0.9 % . [facility] Bilirubin Auto test strip Ql (U)Ordered By: Bobby Bernabe on 02-06-2023 Bilirubin Ql (U) Negative Negative [facility] Bilirubin.total [Mass/volume ] in Serum or PlasmaOrdered By: Bobby Bernabe on 02-06-2023 Bilirubin [Mass/Vol] 0.6 mg/dL 0.3-1.0 [facility] COVID CepheidOrdered By: Pao Bernabe on 02-06-2023 SARS-CoV-2 (COVID-19) Ab IA Ql Negative Negative [facility] Comment on above: This is a duplicate [employer] Xpert Xpress CoV-2/Flu/RSV Plus RNA by RT-PCR result to be used for statistical tracking purpose only. SARS-CoV-2 (COVID-19) RNA EMILY+probe Ql (Unsp spec) [facility] COVID-19 / Flu A/B / RSV PCR on 02-06-2023 SARS-CoV-2 (COVID-19) RNA EMILY+probe Ql (Unsp spec) Normal [facility] Comment on above: Performed By: #### C OVID19 FLU RSV, CEPHEID NEG ####[facility] [id number] [place] [address] [facility] Calcium [Mass/volume] in Ser um or PlasmaOrdered By: Bobby Bernabe on 02-06-2023 Calcium [Mass/Vol] 11.3 mg/dL 8.6-10.3 [facility] Carbon dioxide, total [Moles /volume] in Serum or PlasmaOrdered By: Bobby Bernabe on 02-06-2023 CO2 [Moles/Vol] 28.3 mmol/L 21.0-31.0 [facility] Cepheid COVID PCR Negativeon 02-06-2023 SARS-CoV-2 (COVID-19) RNA EMILY+probe Ql (Unsp spec) Negative Normal Negative [facility] Comment on above: Result Comment: This is a duplicate [employer]ep[employer] Xpert Xpress CoV-2/Flu/RSV Plus RNA by RT-PCR result to be used for statistical tracking purpose only.PERFORMED BY:[facility] [place], [place] [phone] MEDICAL DIRECTORAPRIL VEGA M.D. Performed By: #### C OVID19 FLU RSV, CEPHEID NEG ####[facility] [id number] [place] [address] [facility] Chloride [Moles/volume] in S elmira or PlasmaOrdered By: Bobby Bernabe on 02-06-2023 Chloride [Moles/Vol] 104 mmol/L 98-107 [facility] Complete Blood Count Auto Di ffon 02-06-2023 Basophils (Bld) [#/Vol] 0.1 10*3/uL Normal 0.0-0.2 [facility] Comment on above: Result Comment: PERF ORMED BY:[place] [address] [place], [place] [phone] MEDICAL DIRECTORAPRIL VEGA M.D. Performed By: #### C BC ####[address] Basophils/100 WBC (Bld) 0.9 % Normal . [facility] Comment on above: Performed By: #### C BC ####[address] Eosinophils (Bld) [#/Vol] 0.3 10*3/uL Normal 0.0-0.45 [facility] Comment on above: Performed By: #### C BC ####[address] Eosinophils/100 WBC (Bld) 5.4 % Normal . [facility] Comment on above: Performed By: #### C BC ####[address] Erythrocyte distribution width (RBC) [Ratio] 16.0 % High 12.0-14.8 [facility] Comment on above: Performed By: #### C BC ####[address] Hematocrit (Bld) [Volume fraction] 39.3 % Normal 38.8-50.0 [facility] Comment on above: Performed By: #### C BC ####[address] Hemoglobin (Bld) [Mass/Vol] 13.0 g/dL Normal 13.0-17.0 [facility] Comment on above: Performed By: #### C BC ####[address] Lymphocytes (Bld) [#/Vol] 0.9 10*3/uL Low 1.00-4.8 [facility] Comment on above: Performed By: #### C BC ####[address] Lymphocytes/100 WBC (Bld) 16.3 % Normal . [facility] Comment on above: Performed By: #### C BC ####[address] MCH (RBC) [Entitic mass] 28.0 pg Normal 27.5-35.2 [facility] Comment on above: Performed By: #### C BC ####[address] MCV (RBC) [Entitic vol] 85.0 fL Normal 83.5-101 [facility] Comment on above: Performed By: #### C BC ####[address] Mean Corpuscular HGB Conc 33.0 g/dL Normal 32.5-35.6 [facility] Comment on above: Performed By: #### C BC ####[address] Monocytes (Bld) [#/Vol] 0.6 10*3/uL Normal 0.0-0.8 [facility] Comment on above: Performed By: #### C BC ####[address] Monocytes/100 WBC (Bld) 15.78 % Normal 0.00-20.00 [facility] Comment on above: Performed By: #### C BC ####[address] Monocytes/100 WBC (Bld) 10.8 % Normal . [facility] Comment on above: Performed By: #### C BC ####[place] [id number] [facility] Neutrophils (Bld) [#/Vol] 3.7 10*3/uL Normal 1.8-7.7 [facility] Comment on above: Performed By: #### C BC ####[place] [id number] [facility] Neutrophils/100 WBC (Bld) 66.6 % Normal . [facility] Comment on above: Performed By: #### C BC ####[address] [address] [facility] NRBC% 0.1 /100{WBC} Normal 0-0.5 [facility] Comment on above: Performed By: #### C BC ####[address] [address] [facility] Platelet mean volume (Bld) [Entitic vol] 6.9 fL Normal 6.6-10.1 [facility] Comment on above: Performed By: #### C BC ####[address] [address] [facility] Platelets (Bld) [#/Vol] 228 10*3/uL Normal 150-450 [facility] Comment on above: Performed By: #### C BC ####[place] [id number] [facility] RBC (Bld) [#/Vol] 4.62 10*6/uL Normal 3.90-5.60 [facility] Comment on above: Performed By: #### C BC ####[address] [address] [facility] WBC (Bld) [#/Vol] 5.6 10*3/uL Normal 4.1-10.5 [facility] Comment on above: Performed By: #### C BC ####[place] [id number] [facility] Comprehensive Metabolic Pane anny 02-06-2023 Albumin [Mass/Vol] 4.1 g/dL Normal 3.5-5.7 [facility] Comment on above: Performed By: #### H S TROP, CMP, BNP, AMM, CK, PTT, MG, PT, TSH3 ####[place] [id number] [facility] Albumin/Globulin [Mass ratio] 1.2 {ratio} Normal [facility] Comment on above: Performed By: #### H S TROP, CMP, BNP, AMM, CK, PTT, MG, PT, TSH3 ####[address] ALP [Catalytic activity/Vol] 108 U/L High 34-104 [facility] Comment on above: Performed By: #### H S TROP, CMP, BNP, AMM, CK, PTT, MG, PT, TSH3 ####[address] ALT [Catalytic activity/Vol] 16 U/L Normal 7-52 [facility] Comment on above: Performed By: #### H S TROP, CMP, BNP, AMM, CK, PTT, MG, PT, TSH3 ####[address] Anion gap [Moles/Vol] 9.3 mmol/L Normal 6.0-15.0 [facility] Comment on above: Performed By: #### H S TROP, CMP, BNP, AMM, CK, PTT, MG, PT, TSH3 ####[address] AST [Catalytic activity/Vol] 21 U/L Normal 13-39 [facility] Comment on above: Performed By: #### H S TROP, CMP, BNP, AMM, CK, PTT, MG, PT, TSH3 ####[address] Bilirubin [Mass/Vol] 0.6 mg/dL Normal 0.3-1.0 [facility] Comment on above: Performed By: #### H S TROP, CMP, BNP, AMM, CK, PTT, MG, PT, TSH3 ####[address] Calcium [Mass/Vol] 11.3 mg/dL High 8.6-10.3 [facility] Comment on above: Performed By: #### H S TROP, CMP, BNP, AMM, CK, PTT, MG, PT, TSH3 ####[place] [id number] [facility] Chloride [Moles/Vol] 104 mmol/L Normal 98-107 [facility] Comment on above: Performed By: #### H S TROP, CMP, BNP, AMM, CK, PTT, MG, PT, TSH3 ####[address] CO2 [Moles/Vol] 28.3 mmol/L Normal 21.0-31.0 [facility] Comment on above: Performed By: #### H S TROP, CMP, BNP, AMM, CK, PTT, MG, PT, TSH3 ####[address] Creatinine [Mass/Vol] 1.31 mg/dL High 0.70-1.30 [facility] Comment on above: Performed By: #### H S TROP, CMP, BNP, AMM, CK, PTT, MG, PT, TSH3 ####[address] Creatinine Clr Calc Pharmacy 73.09 [facility] Comment on above: Performed By: #### H S TROP, CMP, BNP, AMM, CK, PTT, MG, PT, TSH3 ####[address] GFR/1.73 sq M.predicted MDRD (S/P/Bld) [Vol rate/Area] mL/min/{1.73_m2} [facility] Comment on above: Performed By: #### H S TROP, CMP, BNP, AMM, CK, PTT, MG, PT, TSH3 ####[address] Globulin (S) [Mass/Vol] 3.4 g/dL [facility] Comment on above: Performed By: #### H S TROP, CMP, BNP, AMM, CK, PTT, MG, PT, TSH3 ####[address] Glucose [Mass/Vol] 164 mg/dL High 70-100 [facility] Comment on above: Result Comment: [facility] [place] Glucose Reference Range is dependent on time and content of last meal. Glucose of more than 200 mg/dL in a nonstressed, ambulatory subject supports the diagnosis of Diabetes Mellitus. ADA recommended reference range Performed By: #### H S TROP, CMP, BNP, AMM, CK, PTT, MG, PT, TSH3 ####[address] Potassium [Moles/Vol] 4.6 mmol/L Normal 3.5-5.1 [facility] Comment on above: Performed By: #### H S TROP, CMP, BNP, AMM, CK, PTT, MG, PT, TSH3 ####[address] Protein [Mass/Vol] 7.5 g/dL Normal 6.4-8.9 [facility] Comment on above: Performed By: #### H S TROP, CMP, BNP, AMM, CK, PTT, MG, PT, TSH3 ####[address] Sodium [Moles/Vol] 137 mmol/L Normal 136-145 [facility] Comment on above: Performed By: #### H S TROP, CMP, BNP, AMM, CK, PTT, MG, PT, TSH3 ####[address] Urea nitrogen [Mass/Vol] 29 mg/dL High 7-25 [facility] Comment on above: Performed By: #### H S TROP, CMP, BNP, AMM, CK, PTT, MG, PT, TSH3 ####[place] [id number] [facility] Creatine Kinaseon 02-06-2023 CK [Catalytic activity/Vol] 107 U/L Normal 30-223 [facility] Comment on above: Performed By: #### H S TROP, CMP, BNP, AMM, CK, PTT, MG, PT, TSH3 ####[place] [id number] [facility] Creatine kinase [Enzymatic a ctivity/volume] in Serum or PlasmaOrdered By: Bobby Bernabe on 02-06-2023 CK [Catalytic activity/Vol] 107 U/L 30-223 [facility] Creatinine [Mass/volume] in Serum or PlasmaOrdered By: Bobby Bernabe on 02-06-2023 Creatinine [Mass/Vol] 1.31 mg/dL 0.70-1.30 [facility] ECG 12 lead ECGon 02-06-2023 ECG 12 lead ECG Normal [facility] ECG 12 lead ECG Normal [facility] ECG 12 lead ECG Normal [facility] Eosinophils Auto (Bld) [#/Vo l]Ordered By: Bobby Bernabe on 02-06-2023 Eosinophils (Bld) [#/Vol] 0.3 10*3/uL 0.0-0.45 [facility] Eosinophils/100 WBC Auto (Bl d)Ordered By: Bobby Bernabe on 02-06-2023 Eosinophils/100 WBC (Bld) 5.4 % . [facility] Erythrocyte distribution wid th Auto (RBC) [Ratio]Ordered By: Bobby Bernabe on 02-06-2023 Erythrocyte distribution width (RBC) [Ratio] 16.0 % 12.0-14.8 [facility] Globulin Calc (S) [Mass/Vol] Ordered By: Bobby Bernabe on 02-06-2023 Globulin (S) [Mass/Vol] 3.4 g/dL [facility] Glucose Glucometer (BldC) [M ass/Vol]Ordered By: Bobby Bernabe on 02-06-2023 Glucose [Mass/Vol] 144 mg/dL [facility] Comment on above: Random Glucose Refer ence Range is dependent on time and content of last meal. Glucose of more than 200 mg/dL in a nonstressed, ambulatory subject supports the diagnosis of Diabetes Mellitus. Glucose Poct Glucometerson 1 04-08-2022 Glucose [Mass/Vol] 144 mg/dL Normal [facility] Comment on above: Result Comment: [place] Glucose Reference Range is dependent on time and content of last meal. Glucose of more than 200 mg/dL in a nonstressed, ambulatory subject supports the diagnosis of Diabetes Mellitus.PERFORMED BY:[facility] [place], [place] [phone] MEDICAL DIRECTORAPRIL VEGA M.D. Performed By: #### G OZZY ####Point of Care testing, Glucose [Mass/volume] in Ser um or PlasmaOrdered By: Bobby Bernabe on 02-06-2023 Glucose [Mass/Vol] 164 mg/dL 70-100 [facility] Comment on above: ADA recommended refe rence rangeRandom Glucose Reference Range is dependent on time and content of last meal. Glucose of more than 200 mg/dL in a nonstressed, ambulatory subject supports the diagnosis of Diabetes Mellitus. Hematocrit Auto (Bld) [Volum e fraction]Ordered By: Bobby Bernabe on 02-06-2023 Hematocrit (Bld) [Volume fraction] 39.3 % 38.8-50.0 [facility] Hemoglobin [Mass/volume] in BloodOrdered By: Bobby Bernabe on 02-06-2023 Hemoglobin (Bld) [Mass/Vol] 13.0 g/dL 13.0-17.0 [facility] INR in Platelet poor plasma by Coagulation assayOrdered By: Bobby Bernabe on 02-06-2023 INR Coag (PPP) [Relative time] 1.0 {INR} [facility] Comment on above: INR Therapeutic Rang e A) Pre- and Peroperative OAT started two weeks before surgery. NOT HIP SURGERY: 1.5 - 2.5 HIP SURGERY: 2 - 3B) Primary and secondary prevention of venous THROMBOSIS: 2 - 3C) Active venous thrombosis, pulmonary embolismand prevention of recurrent venous thrombosis: 2 - 3D) Prevention of arterial thromboembolismincluding patients with mechanical heart valves: 3 - 4.5 Ketones Auto test strip (U) [Mass/Vol]Ordered By: Bobby Bernabe on 02-06-2023 Ketones (U) [Mass/Vol] Negative Negative [facility] Laboratory - Chemistry and C hemistry - challengeOrdered By: Bobby Bernabe on 02-06-2023 CO2 [Moles/Vol] 25.5 mmol/L 24.0-29.0 [facility] HCO3 (Bld) [Moles/Vol] 24.0 mmol/L 23.0-29.0 [facility] Leukocytes [#/volume] correc martin for nucleated erythrocytes in Blood by Automated counOrdered By: Bobby Bernabe on 02-06-2023 WBC corrected for nucl RBC Auto (Bld) [#/Vol] 5.6 10*3/uL 4.1-10.5 [facility] Lymphocytes Auto (Bld) [#/Vo l]Ordered By: Bobby Bernabe on 02-06-2023 Lymphocytes (Bld) [#/Vol] 0.9 10*3/uL 1.00-4.8 [facility] Lymphocytes/100 WBC Auto (Bl d)Ordered By: Bobby Bernabe on 02-06-2023 Lymphocytes/100 WBC (Bld) 16.3 % . [facility] MCH Auto (RBC) [Entitic mass ]Ordered By: Bobby Bernabe on 02-06-2023 MCH (RBC) [Entitic mass] 28.0 pg 27.5-35.2 [facility] MCHC Auto (RBC) [Mass/Vol]Or dered By: Bobby Bernabe on 02-06-2023 MCHC (RBC) [Mass/Vol] 33.0 g/dL 32.5-35.6 [facility] MCV Auto (RBC) [Entitic vol] Ordered By: Bobby Bernabe on 02-06-2023 MCV (RBC) [Entitic vol] 85.0 fL 83.5-101 [facility] Magnesiumon 02-06-2023 Magnesium [Mass/Vol] 1.6 mg/dL Low 1.9-2.7 [facility] Comment on above: Performed By: #### H S TROP, CMP, BNP, AMM, CK, PTT, MG, PT, TSH3 ####[facility] [id number] [place] [id number] [facility] Magnesium [Mass/volume] in S elmira or PlasmaOrdered By: Bobby Bernabe on 02-06-2023 Magnesium [Mass/Vol] 1.6 mg/dL 1.9-2.7 [facility] Monocyte distribution width [Entitic volume] in Blood by AutomatedOrdered By: Bobby Bernabe on 02-06-2023 Monocyte distribution width Auto (Bld) [Entitic vol] 15.78 % 0.00-20.00 [facility] Monocytes Auto (Bld) [#/Vol] Ordered By: Bobby Bernabe on 02-06-2023 Monocytes (Bld) [#/Vol] 0.6 10*3/uL 0.0-0.8 [facility] Monocytes/100 WBC Auto (Bld) Ordered By: Bobby Bernabe on 02-06-2023 Monocytes/100 WBC (Bld) 10.8 % . [facility] Natriuretic peptide B [Mass/ Vol]Ordered By: Bobby Bernabe on 02-06-2023 Natriuretic peptide B (Bld) [Mass/Vol] 151.0 pg/mL 5-100 [facility] Neutrophils Auto (Bld) [#/Vo l]Ordered By: Bobby Bernabe on 02-06-2023 Neutrophils (Bld) [#/Vol] 3.7 10*3/uL 1.8-7.7 [facility] Neutrophils/100 WBC Auto (Bl d)Ordered By: Bobby Bernabe on 02-06-2023 Neutrophils/100 WBC (Bld) 66.6 % . [facility] No Panel InformationOrdered By: Bobby Bernabe on 02-06-2023 Blood Gas Critical Value See comment [facility] Comment on above: Critical Value de guzman d on: 02/06/2023 at 13:24 Blood Gas Sample Site Venous [facility] FiO2 Na % [facility] Venous Blood Base Excess -2.8 mmol/L -3.0-3.0 [facility] [facility] Venous Blood Oxygen Content 4.4 mmol/L 6.6-9.7 [facility] Venous Blood Oxygen Saturation 51.4 % 73.0-76.0 [facility] Venous Blood Partial Pressure CO2 49.0 mm[Hg] 38.0-50.0 [facility] Venous Blood Partial Pressure O2 28.8 mm[Hg] 35.0-45.0 [facility] Venous Blood pH 7.31 7.32-7.43 [facility] Estimated GFR (CKD-EPI) > 60.0 mL/Min [facility] Creatinine Clearance (Chem 73.09 [facility] Nucleated erythrocytes [Pres ence] in Blood by Automated countOrdered By: Bobby Bernabe on 02-06-2023 Nucleated RBC Auto Ql (Bld) 0.1 /100{WBC} 0-0.5 [facility] Partial Thromboplastin Timeo n 11-22-2023 aPTT Coag (Bld) [Time] 31.1 s Normal 25.1-36.5 [facility] Comment on above: Result Comment: A he matocrit value greater than 55% may lead to inaccurate results in coagulation testing. Patients having hematocrit values >55% require a special collection tube for coagulation studies. Please contact the laboratory at [phone] for redraw instructions.PERFORMED BY:[facility] [place] [place], [place] [phone] MEDICAL DIRECTORAPRIL VEGA M.D. Performed By: #### H S TROP, CMP, BNP, AMM, CK, PTT, MG, PT, TSH3 ####[facility] [place] [address] [facility] Platelet mean volume Auto (B ld) [Entitic vol]Ordered By: Bobby Bernabe on 02-06-2023 Platelet mean volume (Bld) [Entitic vol] 6.9 fL 6.6-10.1 [facility] Platelets Auto (Bld) [#/Vol] Ordered By: Bobby Bernabe on 02-06-2023 Platelets (Bld) [#/Vol] 228 10*3/uL 150-450 [facility] Potassium [Moles/volume] in Serum or PlasmaOrdered By: Bobby Bernabe on 02-06-2023 Potassium [Moles/Vol] 4.6 mmol/L 3.5-5.1 [facility] Protein Auto test strip (U) [Mass/Vol]Ordered By: Bobby Bernabe on 02-06-2023 Protein (U) [Mass/Vol] Negative Negative [facility] Protein [Mass/volume] in Ser um or PlasmaOrdered By: Bobby Bernabe on 02-06-2023 Protein [Mass/Vol] 7.5 g/dL 6.4-8.9 [facility] Prothrombin Time INRon 02-06 INR Coag (PPP) [Relative time] 1.0 {INR} Normal [facility] Comment on above: Result Comment: INR Therapeutic Range A) Pre- and Peroperative OAT started two weeks before surgery. NOT HIP SURGERY: 1.5 - 2.5 HIP SURGERY: 2 - 3 B) Primary and secondary prevention of venous THROMBOSIS: 2 - 3 C) Active venous thrombosis, pulmonary embolism and prevention of recurrent venous thrombosis: 2 - 3 D) Prevention of arterial thromboembolism including patients with mechanical heart valves: 3 - 4.5 Performed By: #### H S TROP, CMP, BNP, AMM, CK, PTT, MG, PT, TSH3 ####[facility] [address] [place] [address] [facility] PT Coag (PPP) [Time] 11.5 s Normal 9.0-12.9 [facility] Comment on above: Result Comment: A he matocrit value greater than 55% may lead to inaccurate results in coagulation testing. Patients having hematocrit values >55% require a special collection tube for coagulation studies. Please contact the laboratory at [phone] for redraw instructions. Performed By: #### H S TROP, CMP, BNP, AMM, CK, PTT, MG, PT, TSH3 ####[facility] [place] [id number] [facility] Prothrombin time (PT)Ordered By: Bobby Bernabe on 02-06-2023 PT Coag (PPP) [Time] 11.5 s 9.0-12.9 [facility] Comment on above: A hematocrit value g reater than 55% may lead to inaccurate results in coagulation testing. Patients having hematocrit values >55% require a special collection tube for coagulation studies. Please contact the laboratory at [phone] for redraw instructions. RBC Auto (Bld) [#/Vol]Ordere d By: Bobby Bernabe on 02-06-2023 RBC (Bld) [#/Vol] 4.62 10*6/uL 3.90-5.60 [facility] Serum or plasma albumin/glob ulin mass ratioOrdered By: Bobby Bernabe on 02-06-2023 Albumin/Globulin [Mass ratio] 1.2 {ratio} [facility] Serum or plasma anion gap de terminationOrdered By: Bobby Bernabe on 02-06-2023 Anion gap [Moles/Vol] 9.3 mmol/L 6.0-15.0 [facility] Sodium [Moles/volume] in Ser um or PlasmaOrdered By: Bobby Bernabe on 02-06-2023 Sodium [Moles/Vol] 137 mmol/L 136-145 [facility] Thyroid Stimulating Hormoneo n 02-06-2023 TSH Qn 4.68 m[IU]/L Normal 0.45-5.33 [facility] Comment on above: Result Comment: PERF ORMED BY:[place] [address] [place], [place] [phone] MEDICAL DIRECTORAPRIL VEGA M.D. Performed By: #### H S TROP, CMP, BNP, AMM, CK, PTT, MG, PT, TSH3 ####[address] [place] [address] [facility] Thyrotropin [Units/volume] i n Serum or PlasmaOrdered By: Bobby Bernabe on 02-06-2023 TSH Qn 4.68 m[IU]/L 0.45-5.33 [facility] Troponin I High Sensitivityo n 02-06-2023 Troponin I High Sensitivity 12.8 pg/mL Normal 0.0-20.0 [facility] Comment on above: Result Comment: PERF ORMED BY:[address] [address] [place], [place] [phone] MEDICAL JORGE VEGA M.D. Performed By: #### H S TROP, CMP, BNP, AMM, CK, PTT, MG, PT, TSH3 ####[address] [address] [facility] Troponin I.cardiac [Mass/vol ume] in Serum or Plasma by Detection limit <= 0.01 ng/Ordered By: Bobby Bernabe on 02-06-2023 Troponin I.cardiac DL <= 0.01 ng/mL [Mass/Vol] 12.8 pg/mL 0.0-20.0 [facility] Urea nitrogen [Mass/volume] in Serum or PlasmaOrdered By: Bobby Bernabe on 02-06-2023 Urea nitrogen [Mass/Vol] 29 mg/dL 7 [facility] Urinalysison 02-06-2023 Appearance (U) Clear Normal Clear [facility] Comment on above: Order Comment: Name Collection Type:: Clean-Voided Midstream Performed By: #### U A ####[address] [address] [place] Bilirubin,Urine Negative Normal Negative [facility] Comment on above: Order Comment: Name Collection Type:: Clean-Voided Midstream Performed By: #### U A ####[address] [address] [place] Color (U) Colorless Normal Yellow [facility] Comment on above: Order Comment: Name Collection Type:: Clean-Voided Midstream Performed By: #### U A ####[address] [address] [place] Glucose Ql (U) Normal Normal Normal [facility] Comment on above: Order Comment: Name Collection Type:: Clean-Voided Midstream Performed By: #### U A ####[address] [address] [place] Ketones Ql (U) Negative Normal Negative [facility] Comment on above: Order Comment: Name Collection Type:: Clean-Voided Midstream Performed By: #### U A ####[address] [address] [place] Leukocyte esterase Test strip Ql (U) Negative Normal Negative [facility] Comment on above: Order Comment: Name Collection Type:: Clean-Voided Midstream Performed By: #### U A ####[address] [address] [place] Nitrite,Urine Negative Normal Negative [facility] Comment on above: Order Comment: Name Collection Type:: Clean-Voided Midstream Performed By: #### U A ####[address] [address] [place] Occult Blood,Urine Negative Normal Negative [facility] Comment on above: Order Comment: Name Collection Type:: Clean-Voided Midstream Result Comment: PERF ORMED BY:[address] [place], [place] [phone] MEDICAL JORGE VEGA M.D. Performed By: #### U A ####[address] [place] [address] [facility] pH (U) 5.5 [pH] Normal 5.0-9.0 [facility] Comment on above: Order Comment: Name Collection Type:: Clean-Voided Midstream Performed By: #### U A ####[address] [place] [address] [facility] Protein,Urine Negative Normal Negative [facility] Comment on above: Order Comment: Name Collection Type:: Clean-Voided Midstream Performed By: #### U A ####[address] [address] [facility] Specificy [place],Urine 1.010 Normal 1.001-1.03 0 [facility] Comment on above: Order Comment: Name Collection Type:: Clean-Voided Midstream Performed By: #### U A ####[address] [address] [facility] Urobilinogen,Urine Normal Normal Normal [facility] Comment on above: Order Comment: Name Collection Type:: Clean-Voided Midstream Performed By: #### U A ####[address] [address] [facility] Urine appearanceOrdered By: Bobby Bernabe on 02-06-2023 Appearance (U) Clear Clear [facility] Urine colorOrdered By: Suly Bernabe on 02-06-2023 Color (U) Colorless Yellow [facility] Urine glucose measurement by automated test strip (mass/volume)Ordered By: Bobby Bernabe on 02-06-2023 Glucose Auto test strip (U) [Mass/Vol] Normal mg/dL Normal [facility] Urine hemoglobin detection b y automated test stripOrdered By: Bobby Bernabe on 02-06-2023 Hemoglobin Auto test strip Ql (U) Negative Negative [facility] Urine leukocyte esterase det ection by automated test stripOrdered By: Bobby Bernabe on 02-06-2023 Leukocyte esterase Auto test strip Ql (U) Negative Negative [facility] Urine nitrite detection by a utomated test stripOrdered By: Bobby Bernabe on 02-06-2023 Nitrite Auto test strip Ql (U) Negative Negative [facility] Urobilinogen Auto test strip (U) [Mass/Vol]Ordered By: Bobby Bernabe on 02-06-2023 Urobilinogen (U) [Mass/Vol] Normal mg/dL Normal [facility] Venous Blood Gason 3 CO2 [Moles/Vol] 25.5 mmol/L Normal 24.0-29.0 [facility] Comment on above: Performed By: #### V BG ####Point of Care testing, HCO3 (Bld) [Moles/Vol] 24.0 mmol/L Normal 23.0-29.0 [facility] Comment on above: Performed By: #### V BG ####Point of Care testing, Respiratory Critical Normal [facility] Comment on above: Result Comment: Crit ical Value called on: 02/06/2023 at 13:24PERFORMED BY:[place] [place], [place] [phone] MEDICAL DIRECTORAPRIL VEGA M.D. Performed By: #### V BG ####Point of Care testing, VBG Base Excess -2.8 mmol/L Normal -3.0-3.0 [facility] Comment on above: Performed By: #### V BG ####Point of Care testing, VBG Draw Site Venous Normal [facility] Comment on above: Performed By: #### V BG ####Point of Care testing, VBG Frac Inspired O2 Normal [facility] Comment on above: Performed By: #### V BG ####Point of Care testing, VBG O2 Content 4.4 mmol/L Low 6.6-9.7 [facility] Comment on above: Performed By: #### V BG ####Point of Care testing, VBG Oxygen Saturation 51.4 % Off scale low 73.0-76.0 [facility] Comment on above: Performed By: #### V BG ####Point of Care testing, VBG PCO2 49.0 mm[Hg] Normal 38.0-50.0 [facility] Comment on above: Performed By: #### V BG ####Point of Care testing, VBG PH Venous PH 7.31 Low 7.32-7.43 [facility] Comment on above: Performed By: #### V BG ####Point of Care testing, VBG PO2 28.8 mm[Hg] Low 35.0-45.0 [facility] Comment on above: Performed By: #### V BG ####Point of Care testing, WBC Auto (Bld) [#/Vol]Ordere d By: Bobby Bernabe on 02-06-2023 WBC (Bld) [#/Vol] 5.6 10*3/uL 4.1-10.5 [facility] XR chest 2V*on 02-06-2023 XR chest 2V* Normal [facility] pH Auto test strip (U)Ordere d By: Bobby Bernabe on 02-06-2023 pH (U) 1.010 [pH] 1.001-1.03 0 [facility] pH (U) 5.5 [pH] 5.0-9.0 [facility] NM bone 3 phaseon 01-28-2023 NM bone 3 phase Normal [facility] FL esophaguson 01-14-2023 FL esophagus Normal [facility] Basic Metabolic Panelon Anion gap [Moles/Vol] 12.3 mmol/L Normal 6.0-15.0 [facility] Comment on above: Performed By: #### B MP ####[facility] [place] [address] [facility] Calcium [Mass/Vol] 12.0 mg/dL High 8.6-10.3 [facility] Comment on above: Result Comment: PERF ORMED BY:[address] [place], [place] [phone] MEDICAL DIRECTORAPRIL VEGA M.D. Performed By: #### B MP ####[facility] [address] [place] [address] [facility] Chloride [Moles/Vol] 99 mmol/L Normal 98-107 [facility] Comment on above: Performed By: #### B MP ####[facility] [place] [address] [facility] CO2 [Moles/Vol] 33.7 mmol/L High 21.0-31.0 [facility] Comment on above: Performed By: #### B MP ####[address] [place] [address] [facility] Creatinine [Mass/Vol] 1.32 mg/dL High 0.70-1.30 [facility] Comment on above: Performed By: #### B MP ####[address] [place] [address] [place] GFR/1.73 sq M.predicted MDRD (S/P/Bld) [Vol rate/Area] 59.858 mL/min/{1.73_m2} Normal [facility] Comment on above: Performed By: #### B MP ####[address] [address] [facility] Glucose [Mass/Vol] 108 mg/dL High 70-100 [facility] Comment on above: Result Comment: [facility] [place] Glucose Reference Range is dependent on time and content of last meal. Glucose of more than 200 mg/dL in a nonstressed, ambulatory subject supports the diagnosis of Diabetes Mellitus. ADA recommended reference range Performed By: #### B MP ####[address] [place] [address] [facility] Potassium [Moles/Vol] 4.0 mmol/L Normal 3.5-5.1 [facility] Comment on above: Performed By: #### B MP ####[address] [place] [address] [place] Sodium [Moles/Vol] 141 mmol/L Normal 136-145 [facility] Comment on above: Performed By: #### B MP ####[address] [place] [address] [facility] Urea nitrogen [Mass/Vol] 32 mg/dL High 7-25 [facility] Comment on above: Performed By: #### B MP ####[address] [address] [place] Calcium [Mass/volume] in Ser um or PlasmaOrdered By: Stephanie Burgess on 12-19-2022 Calcium [Mass/Vol] 12.0 mg/dL 8.6-10.3 [facility] Carbon dioxide, total [Moles /volume] in Serum or PlasmaOrdered By: Stephanie Burgess on 12-19-2022 CO2 [Moles/Vol] 33.7 mmol/L 21.0-31.0 [facility] Chloride [Moles/volume] in S elmira or PlasmaOrdered By: Stephanie Burgess on 12-19-2022 Chloride [Moles/Vol] 99 mmol/L 98-107 [facility] Creatinine [Mass/volume] in Serum or PlasmaOrdered By: Stephanie Burgess on 12-19-2022 Creatinine [Mass/Vol] 1.32 mg/dL 0.70-1.30 [facility] Glucose [Mass/volume] in Ser um or PlasmaOrdered By: Stephanie Burgess on 12-19-2022 Glucose [Mass/Vol] 108 mg/dL 70-100 [facility] Comment on above: ADA recommended refe rence rangeRandom Glucose Reference Range is dependent on time and content of last meal. Glucose of more than 200 mg/dL in a nonstressed, ambulatory subject supports the diagnosis of Diabetes Mellitus. No Panel InformationOrdered By: Stephanie Burgess on 12-19-2022 Estimated GFR (CKD-EPI) 59.858 mL/Min [facility] Creatinine Clearance (Chem N/A [facility] Potassium [Moles/volume] in Serum or PlasmaOrdered By: Stephanie Burgess on 12-19-2022 Potassium [Moles/Vol] 4.0 mmol/L 3.5-5.1 [facility] Serum or plasma anion gap de terminationOrdered By: Stephanie Burgess on 12-19-2022 Anion gap [Moles/Vol] 12.3 mmol/L 6.0-15.0 [facility] Sodium [Moles/volume] in Ser um or PlasmaOrdered By: Stephanie Burgess on 12-19-2022 Sodium [Moles/Vol] 141 mmol/L 136-145 [facility] Urea nitrogen [Mass/volume] in Serum or PlasmaOrdered By: Stephanie Burgess on 12-19-2022 Urea nitrogen [Mass/Vol] 32 mg/dL 10-09 [facility] IntraOperative Documentson 1 IntraOperative Documents [id number]#1.00CD:127 Normal [facility] Operative Reporton Operative Report SURGERY DATE: 2022 ZIPPER REPAIRER: Antwan Jacobson CFA PREOPERATIVE DIAGNOSIS: Tongue lesion POSTOPERATIVE DIAGNOSIS: Tongue lesion OPERATION: Partial glossectomy ANESTHESIA: lidocaine 1% with 1:100,000 Epinephrine COMPLICATIONS: None FINDINGS: 4 mm sessile verrucous lesion of the midline ventral tongue tip INDICATIONS: This 67 year old man presented with the above lesion which was concerning for a possible squamous cell carcinoma. PROCEDURE: The patient identified in the Holding Area and taken back to the Operating Room where he was placed in the supine position. The face was draped in a sterile fashion and lidocaine 1% with 1:100,000 Epinephrine infiltrated into the anterior tongue on both the ventral and dorsal sides. After waiting adequate time for hemostasis and anesthesia the tongue was prepped with Betadine and then a [place]amo[place] tip Bovie was used to make a wedge excision of the anterior tongue tip including both the ventral and dorsal sides. A 5 mm margin was used to ensure complete excision of the patient's small lesion. Hemostasis was then achieved with electrocautery and the tongue was then closed with multiple deep 4-0 Vicryl sutures and interrupted 5-0 Vicryl horizontal mattress sutures to close the mucosa. There was good approximation and reestablishment of anatomically normal appearing tongue after completion of the closure. The patient tolerated the procedure well and he was then discharged home in good condition. Sindi Foster Jr., M.D. lr Dictated: 12/06/2022 [id number] Transcribed: 12/06/2022 [facility] Comment on above: Result Comment: Elec tronically Signed By: Jerri NUÑEZ, Sindi Bassett\.abelino\Date and Time Signed: 12/13/22 09:35 EDT Discharge Instructionson Discharge Instructions [id number]#[id number]:127 Normal [facility] IntraOperative Documentson 0 9-22-2023 IntraOperative Documents [id number]#1.00CD:127 Normal [facility] IntraOperative Documents [id number]#1.00CD:127 Normal [facility] Preoperative Documentson Preoperative Documents [id number]#1.00CD:127 Normal [facility] Prescriptions/Work Noteson 0 12-07-2022 Prescriptions/Work Notes [id number]#1.00CD:127 [facility] Consent for Treatmenton 11-17 Consent for Treatment [id number]#1.00CD:127 [facility] Discharge Instructionson Discharge Instructions ADENIKE POTTER :1955 Visit Date:12/06/2022 Inpatient Discharge Instructions Your Care Team Admitting Physician - Sindi Foster MD Referring Physician - Sindi Foster MD Reason for Your Visit TONGUE LESION Your Diagnosis Tongue lesion This Is Your Medications List albuterol (Albuterol (Eqv-Ventolin HFA) 90 mcg/inh inhalation aerosol) allopurinol (allopurinol 300 mg Tab) aspirin (aspirin 81 mg Oral EC Tab) atorvastatin (atorvastatin 20 mg Tab) biotin bumetanide (bumetanide 2 mg Tab) cholecalciferol (Vitamin D3) docusate (Colace 100 mg Cap) fluticasone topical (fluticasone 0.05% with emollients topical kit) gabapentin (gabapentin 600 mg Tab) glipiZIDE (glipiZIDE 2.5 mg ER Tab) levothyroxine (Synthroid 25 mcg(0.025 mg) Tab) magnesium oxide (magnesium oxide 400 mg Tab) metolazone (metolazone 5 mg Tab) omeprazole (omeprazole 40 mg Cap-DR) potassium chloride (Klor-Con M20 oral tablet, extended release) tizanidine (tiZANidine 4 mg Tab) tramadol (traMADOL 50 mg Tab) What to do next Instructions From Your Doctor Event Name Event Result Discharge Activity Expect minimal amount of drainage and/or bleeding, Activity as tolerated Discharge Diet(s) Regular Pharmacy Information Other: [facility] Discharge Instructions Discharge Instructions New Follow Up Appointments after Discharge Follow Up with Sindi Foster When: 12/06/2022 12:00 AM EDT Comments: As scheduled Medications What How Much When Instructions Next Dose Changed aspirin (aspirin 81 mg Oral EC Tab) 1 Tablets By Mouth Every day Changed biotin 10,000 Microgram By Mouth 2 times a day Changed cholecalciferol (Vitamin D3) By Mouth Every day Changed docusate (Colace 100 mg Cap) 2 Capsules By Mouth Every day as needed for for constipation Changed glipiZIDE (glipiZIDE 2.5 mg ER Tab) 1 Tablets By Mouth Every day Changed levothyroxine (Synthroid 25 mcg(0.025 mg) Tab) 1 Tablets By Mouth Every day Changed magnesium oxide (magnesium oxide 400 mg Tab) 2 Tablets By Mouth Every day Changed omeprazole (omeprazole 40 mg Cap-DR) 1 Capsules By Mouth 2 times a day Changed tramadol (traMADOL 50 mg Tab) 2 Tablets By Mouth Every 8 hours as needed for as needed for pain Unchanged albuterol (Albuterol (Eqv-Ventolin HFA) 90 mcg/ inh inhalation aerosol) 2 Puffs Inhalation Every 4 hours as needed for Shortness of breath or wheezing Unchanged allopurinol (allopurinol 300 mg Tab) 1 Tablets By Mouth Every day Unchanged atorvastatin (atorvastatin 20 mg Tab) 1 Tablets By Mouth Every day Unchanged bumetanide (bumetanide 2 mg Tab) 2 Tablets By Mouth Every day Unchanged fluticasone topical (fluticasone 0.05% with emollients topical kit) 2 Sprays Nasal Inhalation Every day Unchanged gabapentin (gabapentin 600 mg Tab) 2 Tablets By Mouth Every day Unchanged metolazone (metolazone 5 mg Tab) 1 Tablets By Mouth Every day Unchanged potassium chloride (Klor-Con M20 oral tablet, extended release) 1 Tablets By Mouth 2 times a day Unchanged tizanidine (tiZANidine 4 mg Tab) 1 Tablets By Mouth 3 times a day Test Results No qualifying data available. Allergies dilTIAZem (Tachycardia) lisinopril (Swelling) morphine (Tachycardia) Education Materials Glossectomy, Care After The following information offers guidance on how to care for yourself after your procedure. Your health care provider may also give you more specific instructions. If you have problems or questions, contact your health care provider. What can I expect after the procedure? After the procedure, it is common to have: ? Difficulty swallowing, eating, and speaking while you recover from your surgery. ? Difficulty moving your mouth and jaw. ? Pain and soreness in your tongue and mouth. ? A small amount of blood or clear fluid coming from your incisions and from any donor sites. A donor site is the area from which skin or muscle tissue was taken to replace your tongue tissue (graft). Follow these instructions at home: Medicines ? Take xaah-jio-dwfynua and prescription medicines only as told by your health care provider. ? If you were prescribed an antibiotic medicine, take it as told by your health care provider. Do not stop using the antibiotic even if you start to feel better. ? Ask your health care provider if the medicine prescribed to you: ? Requires you to avoid driving or using machinery. ? Can cause constipation. You may need to take these actions to prevent or treat constipation: ? Drink enough fluid to keep your urine pale yellow. ? Take uzcf-kjt-kjyqoyq or prescription medicines. Incision care ? Follow instructions from your health care provider about how to take care of your incisions. Make sure you: ? Wash your hands with soap and water for at least 20 seconds before and after you change your bandage (dressing). If soap and water are not available, use hand s (more content not included)... Normal [facility] Comment on above: Result Comment: Elec tronically Signed By: Halie Elizondo RN\.abelino\Date and Time Signed: 12/06/22 11:25 EDT H&P Updateon 12-06-2022 H&P Update [id number] Normal [facility] Inpatient Patient Summaryon 12-06-2022 Inpatient Patient Summary [place] [id number] [facility] Clinical Discharge Instructions PERSON INFORMATION Name: ADENIKE POTTER [facility]#:[id number] PHYSICIANS Admitting Physician: Sindi Foster MD Attending Physician: Sindi Foster MD PCP: TERI ARAGON DO Discharge Diagnosis: Tongue lesion Comment: PATIENT EDUCATION INFORMATION Instructions: Medication Leaflets: Follow up: With: Address: When: Sindi Foster 12/06/2022 12:00 AM Comments: As scheduled MEDICATION LIST Medications to Continue Taking That Have Changed Other Medications START: aspirin (aspirin 81 mg Oral EC Tab) 1 Tablets By Mouth every day. START: biotin 10,000 Microgram By Mouth 2 times a day. START: cholecalciferol (Vitamin D3) By Mouth every day. START: docusate (Colace 100 mg Cap) 2 Capsules By Mouth every day as needed for constipation. START: glipiZIDE (glipiZIDE 2.5 mg ER Tab) 1 Tablets By Mouth every day. START: levothyroxine (Synthroid 25 mcg(0.025 mg) Tab) 1 Tablets By Mouth every day. START: magnesium oxide (magnesium oxide 400 mg Tab) 2 Tablets By Mouth every day. START: omeprazole (omeprazole 40 mg Cap-DR) 1 Capsules By Mouth 2 times a day. START: tramadol (traMADOL 50 mg Tab) 2 Tablets By Mouth every 8 hours as needed as needed for pain. Medications to Continue with No Changes Other Medications albuterol (Albuterol (Eqv-Ventolin HFA) 90 mcg/inh inhalation aerosol) 2 Puffs Inhalation every 4 hours as needed Shortness of breath or wheezing. allopurinol (allopurinol 300 mg Tab) 1 Tablets By Mouth every day. atorvastatin (atorvastatin 20 mg Tab) 1 Tablets By Mouth every day. bumetanide (bumetanide 2 mg Tab) 2 Tablets By Mouth every day. fluticasone topical (fluticasone 0.05% with emollients topical kit) 2 Sprays Nasal Inhalation every day. gabapentin (gabapentin 600 mg Tab) 2 Tablets By Mouth every day. metolazone (metolazone 5 mg Tab) 1 Tablets By Mouth every day. potassium chloride (Klor-Con M20 oral tablet, extended release) 1 Tablets By Mouth 2 times a day. tizanidine (tiZANidine 4 mg Tab) 1 Tablets By Mouth 3 times a day. Comment: Normal [facility] Main OR Intraoperative Recor don 12-06-2022 Main OR Intraoperative Record IntraOp Document Type FT Summary Primary Physician: Sindi Foster MD Finalized Date/Time: 12/06/22 21:09:50 Pt. Name: ADENIKE POTTER /Sex: 1955 Male Med Rec #: [id number] Physician: Sindi Foster MD Financial #: [id number] Pt. Type: A Room/Bed: [facility] Admit/Disch: 12/06/22 08:56:06 - 12/06/22 11:35:00 Institution: Case Times FT Entry 1 Patient Times In Room 12/06/22 10:32:00 Out Room 12/06/22 11:12:00 Procedure Times Start 12/06/22 10:40:00 Stop 12/06/22 11:06:00 Anesthesia Times Last Modified By: Clarence Cannon 12/06/22 11:31:27 General Comments: 12/06/22 Chart opened to review and send charges LRoth CSFA Case Attendance FT Entry 1 Entry 2 Entry 3 Case Attendee Sindi Foster MD, CST, Clarence Jean Role Performed Surgeon - Primary SERVICE COORDINATOR [facility]/SA Hone Operator - Primary Time In 12/06/22 10:32:00 12/06/22 10:32:00 12/06/22 10:32:00 Time Out 12/06/22 11:12:00 12/06/22 11:12:00 12/06/22 11:12:00 Procedure TONGUE LESION TONGUE LESION TONGUE LESION EXCISION(.) EXCISION(.) EXCISION(.) Comments Last Modified By: Clarence Cannon Terry T Sweene, Terry T 12/06/22 11:31:30 12/06/22 11:31:30 12/06/22 11:31:30 Entry 4 Case Attendee Elisha Joya Role Performed Scrub - Primary Time In 12/06/22 10:32:00 Time Out 12/06/22 11:12:00 Procedure TONGUE LESION EXCISION(.) Comments Last Modified By: Clarence Cannon 12/06/22 11:31:30 Perioperative Protocols FT Pre-Care Text: Implements protective measures prior to operative or invasive procedure, confirms identity before the operative or invasive procedure, verifies operative procedure, surgical site, and laterality Entry 1 Procedure(s) TONGUE LESION Patient Identity Birthday, ID Band EXCISION(.) Verified (select at Check, Patient least 2): Participation Consents / H and P Anesthesia Consent, Operative Site N/A Verified HandP, Surgery/Procedure Marking Verified Consent Surgical Site Yes Laterality Verified n/a Verified Procedure Verified Yes Correct Patient Yes Position Verified Availability Equipment Prep Dry n/a Verified (If Applicable) PreOp Antibiotic No Time Out Sindi Foster MD, Given Participants Kavon RENO, Davis Moncada Terry T, Elisha Joya Time Out Complete 12/06/22 10:40:00 Outcomes Met? Yes Last Modified By: Clarence Cannon 12/06/22 10:58:02 Post-Care Text: The patient is free from signs and symptoms of injury caused by extraneous objects Allergy Information FT Pre-Care Text: Verifies allergies Entry 1 Allergies Reviewed? Yes Allergies Reviewed Self/Patient With Outcomes Met? Yes Last Modified By: Clarence Cannon 12/06/22 10:58:12 Post-Care Text: The patient received appropriate medication(s) safely administered during the perioperative period Surgical Procedures FT Entry 1 Procedure Description Procedure TONGUE LESION EXCISION Modifiers . Surgeon Description REMOVAL TONGUE LESION, PARTIAL GLOSSECTOMY Primary Procedure Yes Primary Surgeon Sindi Foster MD Start 12/06/22 10:40:00 Stop 12/06/22 11:06:00 Anesthesia Type Local Surgical Service ENT Wound Class 2 - Clean-Contaminated Last Modified By: Clarence Cannon 12/06/22 11:31:31 General Case Data FT Pre-Care Text: Classifies surgical wound, implements aseptic technique, initiates traffic control Entry 1 Case Information OR OR 2 FT Case Level Level 1 Wound Class 2 - Clean-Contaminated Specialty ENT Preop Diagnosis TONGUE LESION Postop Same As Preop Yes Postop Diagnosis TONGUE LESION Outcomes Met? Yes Last Modified By: Quita Gmoez CST 12/06/22 21:08:22 Post-Care Text: The patient is free from signs and symptoms of infection Skin Assessment (Pre Procedure) FT Pre-Care Text: Implements protective measures to prevent skin/ tissue injury due to thermal or mechanical sources Evaluates for signs and symptoms of physical injury to skin and tissue Entry 1 Skin Integrity Warm, Dry Skin Abnormality Yes Abnormality Location LEGS Abnormality Type ABRASIONS TO BOTH LEGS. Outcomes Met? Yes Last Modified By: Clarence Cannon 12/06/22 11:05:12 Post-Care Text: The patient is free from signs and symptoms of injury caused by extraneous objects Patient Positioning FT Pre-Care Text: Identifies physical alterations that require additional precautions for procedure-specific positioning, verifies presence of prosthetics or corrective devices, positions the patient, evaluates the patient for signs and symptoms of injury as a result of positioning Entry 1 Procedure TONGUE LESION Body Position Semi Fowlers EXCISION(.) Left Arm Position Resting at Side Right Arm Position Resting at Side Left Leg Position Extended Right Leg Position Extended Positioning Device Pillow Under Head Press Points Checked Yes Large, Safety Strap By Antwan Jacobson CST Outcomes Met? Yes Last Modified By: Clarence Cannon 12/06/22 11:00 (more content not included)... Normal [facility] Main OR PACU II [facility] Main OR PACU II Record PACU Phase II Document Type FT Summary Primary Physician: Sindi Foster MD Finalized Date/Time: 12/06/22 11:46:46 Pt. Name: ADENIKE POTTER/Sex: 1955 Male Med Rec #: [id number] Physician: Sindi Foster MD Financial #: [id number] Pt. Type: A Room/Bed: [facility]/ Admit/Disch: 12/06/22 08:56:06 - Institution: Case Times PACU II FT Pre-Care Text: Identifies barriers to communication and implements measures to provide psychological support and determines knowledge level Develops individualized plan of care, and ensures continuity of care Maintains patient's dignity and privacy, and maintains patient confidentiality Identifies and reports philosophical, cultural, and spiritual beliefs and values Identifies individual values and wishes concerning care administers prescribed antibiotic therapy and immunizing agents as ordered, Evaluates postoperative tissue perfusion Implements thermoregulation measures, and monitors body temperature Evaluates postoperative respiratory status Evaluates postoperative cardiac status Evaluates postoperative neurological status Assesses pain control, collaborated in initiating patient-controlled analgesia and implements alternative methods of pain control Verifies allergies, administers prescribed medications and solutions, evaluates response to medications Entry 1 In PACU II 12/06/22 11:15:00 Discharge from PACU 12/06/22 11:35:00 II Outcomes Met? Yes Last Modified By: Halie Elizondo RN 12/06/22 11:46:44 Post-Care Text: The patient demonstrates knowledge of the expected response to the operative or invasive procedure The patient's care is consistent with the individualized perioperative plan of care The patient's right to privacy is maintained The patient's value system, lifestyle, ethnicity, and culture are considered, respected, and incorporated into the perioperative plan of care The patient participates in decisions affecting his or her perioperative plan of care. The patient is free from signs and symptoms of infection The patient has wound/tissue perfusion consistent with or improved from baseline levels established preoperatively The patient is at or returning to normothermia at the conclusion of the immediate postoperative period The patient's respiratory function is consistent with or improved from baseline levels established preoperatively The patient's cardiovascular status is consistent with or improved from baseline levels established preoperatively The patient's neurological status is consistent with or improved from baseline levels established preoperatively The patient demonstrates and/or reports adequate pain control throughout the perioperative period The patient received appropriate medication(s), safely administered during the perioperative period Finalized By: Halie Elizondo RN Document Signatures Signed By: Halie Elizondo RN 12/06/22 11:46 Normal [facility] Main OR Preoperative Recordo n 12-06-2022 Main OR Preoperative Record PreOp Document Type FT Summary Primary Physician: Sindi Foster MD Finalized Date/Time: 12/06/22 10:48:18 Pt. Name: ADENIKE POTTER/Sex: 1955 Male Med Rec #: [id number] Physician: Sindi Foster MD Financial #: [id number] Pt. Type: A Room/Bed: Admit/Disch: 12/06/22 08:56:06 - Institution: Case Times PreOp FT Pre-Care Text: Verifies consent for planned procedure, identifies individual values and wishes concerning care, includes family members in perioperative teaching Entry 1 Patient Times. In Pre Surgery 12/06/22 09:05:00 Out Pre Surgery 12/06/22 10:30:00 Outcomes Met? Yes Last Modified By: Clarence Cannon 12/06/22 10:48:08 Post-Care Text: The patient participates in decisions affecting his or her perioperative plan of care Finalized By: Clarence Cannon Document Signatures Signed By: Clarence Cannon 12/06/22 10:48 Clarence Cannon 12/06/22 10:48 Clarence Cannon 12/06/22 10:48 Normal [facility] Outpatient Surgery Discharge Instructionon 12-06-2022 Outpatient Surgery Discharge Instruction [place] [id number] Patient Discharge Instructions PERSON INFORMATION Name: ADENIKE POTTER Date of : 1955 Current Date: 12/06/2022 11:20:22 PHYSICIANS Admitting Physician: Sindi Foster MD Discharge Diagnosis: Tongue lesion ADENIKE POTTER has been given the following list of follow-up instructions, prescriptions, and patient education materials: PATIENT FOLLOW-UP INFORMATION Diet: Regular Discharge Activity: Expect minimal amount of drainage and/or bleeding, Activity as tolerated IF UNABLE TO CONTACT YOUR PHYSICIAN AND YOU FEEL IT IS AN EMERGENCY, GO TO THE NEAREST EMERGENCY ROOM OR CALL 911 I, ADENIKE POTTER, have received the attached patient education materials/instructions and have verbalized understanding: May we do a follow up call? Yes No I was present when discharge instructions were given ____ Patient Signature _ Date Clinican/Nurse Signature Date Follow up: With: Address: When: Sindi Foster 12/06/2022 12:00 AM Comments: As scheduled Pharmacy Information: Other: [facility] You may receive a survey from [email or web address] asking you to rate your care experience. Your feedback is important and will help us understand what we do well and how we can improve the quality of care we provide to you, your loved ones and our community. It?s an honor to serve you. Thank you for choosing [facility] HERE ARE THE MEDICATION CHANGES THAT OCCURRED DURING YOUR HOSPITAL STAY Medications to Continue Taking That Have Changed Other Medications START: aspirin (aspirin 81 mg Oral EC Tab) 1 Tablets By Mouth every day. START: biotin 10,000 Microgram By Mouth 2 times a day. START: cholecalciferol (Vitamin D3) By Mouth every day. START: docusate (Colace 100 mg Cap) 2 Capsules By Mouth every day as needed for constipation. START: glipiZIDE (glipiZIDE 2.5 mg ER Tab) 1 Tablets By Mouth every day. START: levothyroxine (Synthroid 25 mcg(0.025 mg) Tab) 1 Tablets By Mouth every day. START: magnesium oxide (magnesium oxide 400 mg Tab) 2 Tablets By Mouth every day. START: omeprazole (omeprazole 40 mg Cap-DR) 1 Capsules By Mouth 2 times a day. START: tramadol (traMADOL 50 mg Tab) 2 Tablets By Mouth every 8 hours as needed as needed for pain. Medications to Continue with No Changes Other Medications albuterol (Albuterol (Eqv-Ventolin HFA) 90 mcg/inh inhalation aerosol) 2 Puffs Inhalation every 4 hours as needed Shortness of breath or wheezing. allopurinol (allopurinol 300 mg Tab) 1 Tablets By Mouth every day. atorvastatin (atorvastatin 20 mg Tab) 1 Tablets By Mouth every day. bumetanide (bumetanide 2 mg Tab) 2 Tablets By Mouth every day. fluticasone topical (fluticasone 0.05% with emollients topical kit) 2 Sprays Nasal Inhalation every day. gabapentin (gabapentin 600 mg Tab) 2 Tablets By Mouth every day. metolazone (metolazone 5 mg Tab) 1 Tablets By Mouth every day. potassium chloride (Klor-Con M20 oral tablet, extended release) 1 Tablets By Mouth 2 times a day. tizanidine (tiZANidine 4 mg Tab) 1 Tablets By Mouth 3 times a day. PATIENT EDUCATION INFORMATION Instructions: Medication Leaflets: [facility] Patient Education - Texton 0 12-06-2022 Patient Education - Text ENT Glossectomy, Care After The following information offers guidance on how to care for yourself after your procedure. Your health care provider may also give you more specific instructions. If you have problems or questions, contact your health care provider. What can I expect after the procedure? After the procedure, it is common to have: ? Difficulty swallowing, eating, and speaking while you recover from your surgery. ? Difficulty moving your mouth and jaw. ? Pain and soreness in your tongue and mouth. ? A small amount of blood or clear fluid coming from your incisions and from any donor sites. A donor site is the area from which skin or muscle tissue was taken to replace your tongue tissue (graft). Follow these instructions at home: Medicines ? Take [id number]-[id number] and prescription medicines only as told by your health care provider. ? If you were prescribed an antibiotic medicine, take it as told by your health care provider. Do not stop using the antibiotic even if you start to feel better. ? Ask your health care provider if the medicine prescribed to you: ? Requires you to avoid driving or using machinery. ? Can cause constipation. You may need to take these actions to prevent or treat constipation: ? Drink enough fluid to keep your urine pale yellow. ? Take [id number] or prescription medicines. Incision care ? Follow instructions from your health care provider about how to take care of your incisions. Make sure you: ? Wash your hands with soap and water for at least 20 seconds before and after you change your bandage (dressing). If soap and water are not available, use hand mobile mechanic. ? Change your dressing as told by your health care provider. ? Leave stitches (sutures) in place. These skin closures may need to stay in place for 2 weeks or longer. ? Check your incision areas every day for signs of infection. Check for: ? More redness, swelling, or pain. ? More fluid or blood. ? Warmth from any incision in your neck. ? Pus or a bad smell. ? If you have drainage tubes, follow instructions from your health care provider about how to care for them. Eating and drinking ? Follow instructions from your health care provider about eating and drinking restrictions. Restrictions vary depending on the type of procedure you had. ? If you have a feeding tube, follow the instructions from your health care provider about how to use the tube and how much liquid food and water you need. ? If you are eating by mouth, rinse your mouth with water after every meal to prevent food from becoming trapped in your mouth. Activity ? Return to your normal activities as told by your health care provider. Ask your health care provider what activities are safe for you. ? Sleep and rest with your head raised (elevated) to help reduce swelling. ? Do speech exercises as told by your health care provider or speech therapist. General instructions ? Do not take baths, swim, or use a hot tub until your health care provider approves. Ask your health care provider if you may take showers. You may only be allowed to take sponge baths. ? Do not use any products that contain nicotine or tobacco. These products include cigarettes, chewing tobacco, and vaping devices, such as e-cigarettes. These can delay healing. If you need help quitting, ask your health care provider. ? Gargle with a mixture of salt and water 3?4 times a day or as needed. To make salt water, completely dissolve ??1 tsp (3?6 g) of salt in 1 cup (237 mL) of warm water or as told by your health care provider. ? If you have a tube inserted into your windpipe to help you breathe (tracheostomy tube), follow instructions from your health care provider about how to care for the tube. ? Keep all follow-up visits. This is important. Contact a health care provider if: ? You have a fever. ? You have signs of infection, such as: ? More redness, swelling, or pain around an incision. ? More fluid or blood coming from an incision in the neck or the mouth. ? Your neck incision feels warm to the touch. ? Pus or a bad smell coming from an incision. ? It gets more difficult for you to chew and swallow. ? You have pain that gets worse or does not get better with medicine. ? You have a cough that gets worse. ? You feel nauseous. Get help right away if: ? You have new shortness of breath. ? You have a fast heartbeat. ? You have a lot of blood coming from your incisions in your mouth or neck. ? You vomit. ? You have chest pain. These symptoms may be an emergency. Get help right away. Call 911. ? Do not wait to see if the symptoms will go away. ? Do not drive yourself to the hospital. Summary ? It is common to have difficulty swallowing, eating, and speaking while you recover from your surgery. ? Check your incision areas every day for signs of infection. ? Follow instructions from you (more content not included)... Normal [facility] Alanine aminotransferase [En zymatic activity/volume] in Serum or PlasmaOrdered By: Vivian Del Rosario on 11-26-2022 ALT [Catalytic activity/Vol] 18 U/L 7-52 [facility] Albumin [Mass/volume] in Ser um or Plasma by Bromocresol green (BCG) dye binding methoOrdered By: iVvian Del Rosario on 11-26-2022 Albumin BCG dye [Mass/Vol] 4.1 g/dL 3.5-5.7 [facility] Alkaline phosphatase [Enzyma tic activity/volume] in Serum or PlasmaOrdered By: Vivian Del Rosario on 11-26-2022 ALP [Catalytic activity/Vol] 104 U/L 34-104 [facility] Aspartate aminotransferase [ Enzymatic activity/volume] in Serum or PlasmaOrdered By: Vivian Del Rosario on 11-26-2022 AST [Catalytic activity/Vol] 24 U/L 13-39 [facility] Basophils Auto (Bld) [#/Vol] Ordered By: Vivian Del Rosario on 11-26-2022 Basophils (Bld) [#/Vol] 0.0 10*3/uL 0.0-0.2 [facility] Basophils/100 WBC Auto (Bld) Ordered By: Vivian Del Rosario on 11-26-2022 Basophils/100 WBC (Bld) 0.7 % . [facility] Bilirubin.total [Mass/volume ] in Serum or PlasmaOrdered By: Vivian Choulazarus on 11-26-2022 Bilirubin [Mass/Vol] 0.8 mg/dL 0.3-1.0 [facility] Calcium [Mass/volume] in Ser um or PlasmaOrdered By: Vivian Choulazarus on 11-26-2022 Calcium [Mass/Vol] 10.7 mg/dL 8.6-10.3 [facility] Carbon dioxide, total [Moles /volume] in Serum or PlasmaOrdered By: Vivian Choulazarus on 11-26-2022 CO2 [Moles/Vol] 32.4 mmol/L 21.0-31.0 [facility] Chloride [Moles/volume] in S [place] or PlasmaOrdered By: Vivian Choulazarus on 11-26-2022 Chloride [Moles/Vol] 102 mmol/L 98-107 [facility] Complete Blood Count Auto Di ffon 11-26-2022 Basophils (Bld) [#/Vol] 0.0 10*3/uL Normal 0.0-0.2 [facility] Comment on above: Result Comment: PERF ORMED BY:[address] [place], [place] [id number] MEDICAL DIRECTORAPRIL VEGA M.D. Performed By: #### C MP, LDH, CBC ####[place] [address] [place] [address] [facility] Basophils/100 WBC (Bld) 0.7 % Normal . [facility] Comment on above: Performed By: #### C MP, LDH, CBC ####[place] [address] [place] [address] [place] Eosinophils (Bld) [#/Vol] 0.3 10*3/uL Normal 0.0-0.45 [facility] Comment on above: Performed By: #### C MP, LDH, CBC ####[facility] [place] [address] [place] Eosinophils/100 WBC (Bld) 4.3 % Normal . [facility] Comment on above: Performed By: #### C MP, LDH, CBC ####[address] Erythrocyte distribution width (RBC) [Ratio] 14.9 % High 12.0-14.8 [facility] Comment on above: Performed By: #### C MP, LDH, CBC ####[address] Hematocrit (Bld) [Volume fraction] 39.8 % Normal 38.8-50.0 [facility] Comment on above: Performed By: #### C MP, LDH, CBC ####[address] Hemoglobin (Bld) [Mass/Vol] 13.0 g/dL Normal 13.0-17.0 [facility] Comment on above: Performed By: #### C MP, LDH, CBC ####[address] Lymphocytes (Bld) [#/Vol] 1.0 10*3/uL Normal 1.00-4.8 [facility] Comment on above: Performed By: #### C MP, LDH, CBC ####[address] Lymphocytes/100 WBC (Bld) 13.3 % Normal . [facility] Comment on above: Performed By: #### C MP, LDH, CBC ####[address] MCH (RBC) [Entitic mass] 27.9 pg Normal 27.5-35.2 [facility] Comment on above: Performed By: #### C MP, LDH, CBC ####[address] MCV (RBC) [Entitic vol] 85.5 fL Normal 83.5-101 [facility] Comment on above: Performed By: #### C MP, LDH, CBC ####[address] Mean Corpuscular HGB Conc 32.6 g/dL Normal 32.5-35.6 [facility] Comment on above: Performed By: #### C MP, LDH, CBC ####[address] Monocytes (Bld) [#/Vol] 0.9 10*3/uL High 0.0-0.8 [facility] Comment on above: Performed By: #### C MP, LDH, CBC ####[address] Monocytes/100 WBC (Bld) 12.5 % Normal . [facility] Comment on above: Performed By: #### C MP, LDH, CBC ####[address] Neutrophils (Bld) [#/Vol] 5.1 10*3/uL Normal 1.8-7.7 [facility] Comment on above: Performed By: #### C MP, LDH, CBC ####[address] Neutrophils/100 WBC (Bld) 69.2 % Normal . [facility] Comment on above: Performed By: #### C MP, LDH, CBC ####[address] NRBC% 0.1 /100{WBC} Normal 0-0.5 [facility] Comment on above: Performed By: #### C MP, LDH, CBC ####[address] Platelet mean volume (Bld) [Entitic vol] 7.5 fL Normal 6.6-10.1 [facility] Comment on above: Performed By: #### C MP, LDH, CBC ####[address] Platelets (Bld) [#/Vol] 213 10*3/uL Normal 150-450 [facility] Comment on above: Performed By: #### C MP, LDH, CBC ####[address] [place] [address] [facility] RBC (Bld) [#/Vol] 4.66 10*6/uL Normal 3.90-5.60 [facility] Comment on above: Performed By: #### C MP, LDH, CBC ####[place] [id number] [facility] WBC (Bld) [#/Vol] 7.4 10*3/uL Normal 4.1-10.5 [facility] Comment on above: Performed By: #### C MP, LDH, CBC ####[address] [address] [facility] Comprehensive Metabolic Pane anny 11-26-2022 Albumin [Mass/Vol] 4.1 g/dL Normal 3.5-5.7 [facility] Comment on above: Performed By: #### C MP, LDH, CBC ####[place] [id number] [facility] Albumin/Globulin [Mass ratio] 1.8 {ratio} Normal [facility] Comment on above: Performed By: #### C MP, LDH, CBC ####[place] [id number] [facility] ALP [Catalytic activity/Vol] 104 U/L Normal 34-104 [facility] Comment on above: Performed By: #### C MP, LDH, CBC ####[place] [id number] [facility] ALT [Catalytic activity/Vol] 18 U/L Normal 7-52 [facility] Comment on above: Performed By: #### C MP, LDH, CBC ####[place] [id number] [facility] Anion gap [Moles/Vol] 10.2 mmol/L Normal 6.0-15.0 [facility] Comment on above: Performed By: #### C MP, LDH, CBC ####[place] [id number] [facility] AST [Catalytic activity/Vol] 24 U/L Normal 13-39 [facility] Comment on above: Performed By: #### C MP, LDH, CBC ####[place] [id number] [facility] Bilirubin [Mass/Vol] 0.8 mg/dL Normal 0.3-1.0 [facility] Comment on above: Performed By: #### C MP, LDH, CBC ####[place] [id number] [facility] Calcium [Mass/Vol] 10.7 mg/dL High 8.6-10.3 [facility] Comment on above: Performed By: #### C MP, LDH, CBC ####[place] [id number] [facility] Chloride [Moles/Vol] 102 mmol/L Normal 98-107 [facility] Comment on above: Performed By: #### C MP, LDH, CBC ####[place] [id number] [facility] CO2 [Moles/Vol] 32.4 mmol/L High 21.0-31.0 [facility] Comment on above: Performed By: #### C MP, LDH, CBC ####[place] [id number] [facility] Creatinine [Mass/Vol] 1.35 mg/dL High 0.70-1.30 [facility] Comment on above: Performed By: #### C MP, LDH, CBC ####[place] [id number] [facility] GFR/1.73 sq M.predicted MDRD (S/P/Bld) [Vol rate/Area] 58.266 mL/min/{1.73_m2} [facility] Comment on above: Performed By: #### C MP, LDH, CBC ####[place] [id number] [facility] Globulin (S) [Mass/Vol] 2.3 g/dL [facility] Comment on above: Performed By: #### C MP, LDH, CBC ####[place] [id number] [facility] Glucose [Mass/Vol] 123 mg/dL High 70-100 [facility] Comment on above: Result Comment: [facility] [place] Glucose Reference Range is dependent on time and content of last meal. Glucose of more than 200 mg/dL in a nonstressed, ambulatory subject supports the diagnosis of Diabetes Mellitus. ADA recommended reference range Performed By: #### C MP, LDH, CBC ####[place] [id number] [place] [id number] [facility] Potassium [Moles/Vol] 4.6 mmol/L Normal 3.5-5.1 [facility] Comment on above: Performed By: #### C MP, LDH, CBC ####[place] [address] [place] [id number] [facility] Protein [Mass/Vol] 6.4 g/dL Normal 6.4-8.9 [facility] Comment on above: Performed By: #### C MP, LDH, CBC ####[place] [id number] [facility] Sodium [Moles/Vol] 140 mmol/L Normal 136-145 [facility] Comment on above: Performed By: #### C MP, LDH, CBC ####[place] [id number] [facility] Urea nitrogen [Mass/Vol] 25 mg/dL Normal 7-25 [facility] Comment on above: Performed By: #### C MP, LDH, CBC ####[place] [id number] [facility] Creatinine [Mass/volume] in Serum or PlasmaOrdered By: Vivian Del Rosario on 11-26-2022 Creatinine [Mass/Vol] 1.35 mg/dL 0.70-1.30 [facility] Eosinophils Auto (Bld) [#/Vo l]Ordered By: Vivian Del Rosario on 11-26-2022 Eosinophils (Bld) [#/Vol] 0.3 10*3/uL 0.0-0.45 [facility] Eosinophils/100 WBC Auto (Bl d)Ordered By: Vivian Del Rosario on 11-26-2022 Eosinophils/100 WBC (Bld) 4.3 % . [facility] Erythrocyte distribution wid th Auto (RBC) [Ratio]Ordered By: Vivian Carin on 11-26-2022 Erythrocyte distribution width (RBC) [Ratio] 14.9 % 12.0-14.8 [facility] Globulin Calc (S) [Mass/Vol] Ordered By: Vivian Carin on 11-26-2022 Globulin (S) [Mass/Vol] 2.3 g/dL [facility] Glucose [Mass/volume] in Ser um or PlasmaOrdered By: Vivian Del Rosario on 11-26-2022 Glucose [Mass/Vol] 123 mg/dL 70-100 [facility] Comment on above: ADA recommended refe rence rangeRandom Glucose Reference Range is dependent on time and content of last meal. Glucose of more than 200 mg/dL in a nonstressed, ambulatory subject supports the diagnosis of Diabetes Mellitus. Hematocrit Auto (Bld) [Volum e fraction]Ordered By: Vivian Carin on 11-26-2022 Hematocrit (Bld) [Volume fraction] 39.8 % 38.8-50.0 [facility] Hemoglobin [Mass/volume] in BloodOrdered By: Vivian Carin on 11-26-2022 Hemoglobin (Bld) [Mass/Vol] 13.0 g/dL 13.0-17.0 [facility] LDH Lactate Dehydrogenaseon 11-26-2022 LDH Lactate Dehydrogenase 239 U/L Normal 140-271 [facility] Comment on above: Result Comment: PERF ORMED BY:[facility], [place] [id number] MEDICAL DIRECTORAPRIL VEGA M.D. Performed By: #### C MP, LDH, CBC ####[facility] [place] [address] [facility] Lactate dehydrogenase [Enzym atic activity/volume] in Serum or Plasma by Lactate to pyOrdered By: Vivian Del Rosario on 11-26-2022 LDH Lactate to pyruvate reaction [Catalytic activity/Vol] 239 U/L 140-271 [facility] Leukocytes [#/volume] correc martin for nucleated erythrocytes in Blood by Automated counOrdered By: Vivian Del Rosario on 11-26-2022 WBC corrected for nucl RBC Auto (Bld) [#/Vol] 7.4 10*3/uL 4.1-10.5 [facility] Lymphocytes Auto (Bld) [#/Vo l]Ordered By: Vivian Del Rosario on 11-26-2022 Lymphocytes (Bld) [#/Vol] 1.0 10*3/uL 1.00-4.8 [facility] Lymphocytes/100 WBC Auto (Bl d)Ordered By: Vivian Del Rosario on 11-26-2022 Lymphocytes/100 WBC (Bld) 13.3 % . [facility] MCH Auto (RBC) [Entitic mass ]Ordered By: Vivian Del Rosario on 11-26-2022 MCH (RBC) [Entitic mass] 27.9 pg 27.5-35.2 [facility] MCHC Auto (RBC) [Mass/Vol]Or dered By: Vivian Del Rosario on 11-26-2022 MCHC (RBC) [Mass/Vol] 32.6 g/dL 32.5-35.6 [facility] MCV Auto (RBC) [Entitic vol] Ordered By: Vivian Del Rosario on 11-26-2022 MCV (RBC) [Entitic vol] 85.5 fL 83.5-101 [facility] Monocytes Auto (Bld) [#/Vol] Ordered By: Vivian Del Rosario on 11-26-2022 Monocytes (Bld) [#/Vol] 0.9 10*3/uL 0.0-0.8 [facility] Monocytes/100 WBC Auto (Bld) Ordered By: Vivian Del Rosario on 11-26-2022 Monocytes/100 WBC (Bld) 12.5 % . [facility] Neutrophils Auto (Bld) [#/Vo l]Ordered By: Vivian Del Rosario on 11-26-2022 Neutrophils (Bld) [#/Vol] 5.1 10*3/uL 1.8-7.7 [facility] Neutrophils/100 WBC Auto (Bl d)Ordered By: Vivian Del Rosario on 11-26-2022 Neutrophils/100 WBC (Bld) 69.2 % . [facility] No Panel InformationOrdered By: Vivian Del Rosario on 11-26-2022 Estimated GFR (CKD-EPI) 58.266 mL/Min [facility] Creatinine Clearance (Chem N/A [facility] Nucleated erythrocytes [Pres ence] in Blood by Automated countOrdered By: Vivian Del Rosario on 11-26-2022 Nucleated RBC Auto Ql (Bld) 0.1 /100{WBC} 0-0.5 [facility] Platelet mean volume Auto (B ld) [Entitic vol]Ordered By: Vivian Del Rosario on 11-26-2022 Platelet mean volume (Bld) [Entitic vol] 7.5 fL 6.6-10.1 [facility] Platelets Auto (Bld) [#/Vol] Ordered By: Vivian Del Rosario on 11-26-2022 Platelets (Bld) [#/Vol] 213 10*3/uL 150-450 [facility] Potassium [Moles/volume] in Serum or PlasmaOrdered By: Vivian Del Rosario on 11-26-2022 Potassium [Moles/Vol] 4.6 mmol/L 3.5-5.1 [facility] Protein [Mass/volume] in Ser um or PlasmaOrdered By: Vivian Del Rosario on 11-26-2022 Protein [Mass/Vol] 6.4 g/dL 6.4-8.9 [facility] RBC Auto (Bld) [#/Vol]Ordere d By: Vivian Del Rosario on 11-26-2022 RBC (Bld) [#/Vol] 4.66 10*6/uL 3.90-5.60 [facility] Serum or plasma albumin/glob ulin mass ratioOrdered By: Vivian Del Rosario on 11-26-2022 Albumin/Globulin [Mass ratio] 1.8 {ratio} [facility] Serum or plasma anion gap de terminationOrdered By: Vivian Del Rosario on 11-26-2022 Anion gap [Moles/Vol] 10.2 mmol/L 6.0-15.0 [facility] Sodium [Moles/volume] in Ser um or PlasmaOrdered By: Vivian Del Rosario on 11-26-2022 Sodium [Moles/Vol] 140 mmol/L 136-145 [facility] Urea nitrogen [Mass/volume] in Serum or PlasmaOrdered By: Vivian Del Rosario on 11-26-2022 Urea nitrogen [Mass/Vol] 25 mg/dL 10-09 [facility] WBC Auto (Bld) [#/Vol]Ordere d By: Vivian Del Rosario on 11-26-2022 WBC (Bld) [#/Vol] 7.4 10*3/uL 4.1-10.5 [facility] Consent for Procedure/Surger yon 11-15-2022 Consent for Procedure/Surgery [id number] Normal [facility] Alanine aminotransferase [En zymatic activity/volume] in Serum or PlasmaOrdered By: Teri Ybarra on 11-12-2022 ALT [Catalytic activity/Vol] 17 U/L [facility] Albumin [Mass/volume] in Ser um or Plasma by Bromocresol green (BCG) dye binding methoOrdered By: Teri Ybarra on 11-12-2022 Albumin BCG dye [Mass/Vol] 4.1 g/dL 3.5-5.7 [facility] Alkaline phosphatase [Enzyma tic activity/volume] in Serum or PlasmaOrdered By: Teri Ybarra on 11-12-2022 ALP [Catalytic activity/Vol] 104 U/L 34-104 [facility] Aspartate aminotransferase [ Enzymatic activity/volume] in Serum or PlasmaOrdered By: Teri Ybarra on 11-12-2022 AST [Catalytic activity/Vol] 24 U/L 13-39 [facility] Basophils Auto (Bld) [#/Vol] Ordered By: Teri Ybarra on 11-12-2022 Basophils (Bld) [#/Vol] 0.0 10*3/uL 0.0-0.2 [facility] Basophils/100 WBC Auto (Bld) Ordered By: Teri Ybarra on 11-12-2022 Basophils/100 WBC (Bld) 0.7 % . [facility] Bilirubin.total [Mass/volume ] in Serum or PlasmaOrdered By: Teri Ybarra on 11-12-2022 Bilirubin [Mass/Vol] 0.7 mg/dL 0.3-1.0 [facility] Calcium [Mass/volume] in Ser um or PlasmaOrdered By: Teri Tate on 11-12-2022 Calcium [Mass/Vol] 10.3 mg/dL 8.6-10.3 [facility] Carbon dioxide, total [Moles /volume] in Serum or PlasmaOrdered By: Teri Tate on 11-12-2022 CO2 [Moles/Vol] 31.9 mmol/L 21.0-31.0 [facility] Chloride [Moles/volume] in S [place] or PlasmaOrdered By: Teri Tate on 11-12-2022 Chloride [Moles/Vol] 105 mmol/L 98-107 [facility] Complete Blood Count Auto Di ffon 11-12-2022 Basophils (Bld) [#/Vol] 0.0 10*3/uL Normal 0.0-0.2 [facility] Comment on above: Result Comment: PERF ORMED BY:[address] [place], [place] [id number] MEDICAL DIRECTORAPRIL VEGA M.D. Performed By: #### C MP, URIC, CBC ####[place] [id number] [place] [id number] [facility] Basophils/100 WBC (Bld) 0.7 % Normal . [facility] Comment on above: Performed By: #### C MP, URIC, CBC ####[place] [address] [place] [address] [facility] Eosinophils (Bld) [#/Vol] 0.4 10*3/uL Normal 0.0-0.45 [facility] Comment on above: Performed By: #### C MP, URIC, CBC ####[place] [id number] [place] [id number] [facility] Eosinophils/100 WBC (Bld) 6.9 % Normal . [facility] Comment on above: Performed By: #### C MP, URIC, CBC ####[facility] [id number] [place] [id number] [facility] Erythrocyte distribution width (RBC) [Ratio] 15.0 % High 12.0-14.8 [facility] Comment on above: Performed By: #### C MP, URIC, CBC ####[address] Hematocrit (Bld) [Volume fraction] 36.8 % Low 38.8-50.0 [facility] Comment on above: Performed By: #### C MP, URIC, CBC ####[address] Hemoglobin (Bld) [Mass/Vol] 12.0 g/dL Low 13.0-17.0 [facility] Comment on above: Performed By: #### C MP, URIC, CBC ####[address] Lymphocytes (Bld) [#/Vol] 0.7 10*3/uL Low 1.00-4.8 [facility] Comment on above: Performed By: #### C MP, URIC, CBC ####[address] Lymphocytes/100 WBC (Bld) 12.7 % Normal . [facility] Comment on above: Performed By: #### C MP, URIC, CBC ####[address] MCH (RBC) [Entitic mass] 27.9 pg Normal 27.5-35.2 [facility] Comment on above: Performed By: #### C MP, URIC, CBC ####[address] MCV (RBC) [Entitic vol] 85.4 fL Normal 83.5-101 [facility] Comment on above: Performed By: #### C MP, URIC, CBC ####[address] Mean Corpuscular HGB Conc 32.7 g/dL Normal 32.5-35.6 [facility] Comment on above: Performed By: #### C MP, URIC, CBC ####[address] Monocytes (Bld) [#/Vol] 0.7 10*3/uL Normal 0.0-0.8 [facility] Comment on above: Performed By: #### C MP, URIC, CBC ####[address] Monocytes/100 WBC (Bld) 12.7 % Normal . [facility] Comment on above: Performed By: #### C MP, URIC, CBC ####[address] Neutrophils (Bld) [#/Vol] 3.9 10*3/uL Normal 1.8-7.7 [facility] Comment on above: Performed By: #### C MP, URIC, CBC ####[address] Neutrophils/100 WBC (Bld) 67.0 % Normal . [facility] Comment on above: Performed By: #### C MP, URIC, CBC ####[address] NRBC% 0.1 /100{WBC} Normal 0-0.5 [facility] Comment on above: Performed By: #### C MP, URIC, CBC ####[address] Platelet mean volume (Bld) [Entitic vol] 7.4 fL Normal 6.6-10.1 [facility] Comment on above: Performed By: #### C MP, URIC, CBC ####[address] Platelets (Bld) [#/Vol] 189 10*3/uL Normal 150-450 [facility] Comment on above: Performed By: #### C MP, URIC, CBC ####[address] RBC (Bld) [#/Vol] 4.30 10*6/uL Normal 3.90-5.60 [facility] Comment on above: Performed By: #### C MP, URIC, CBC ####[place] [address] [facility] WBC (Bld) [#/Vol] 5.9 10*3/uL Normal 4.1-10.5 [facility] Comment on above: Performed By: #### C MP, URIC, CBC ####[place] [id number] [facility] Comprehensive Metabolic Pane anny 11-12-2022 Albumin [Mass/Vol] 4.1 g/dL Normal 3.5-5.7 [facility] Comment on above: Performed By: #### C MP, URIC, CBC ####[place] [id number] [facility] Albumin/Globulin [Mass ratio] 1.6 {ratio} Normal [facility] Comment on above: Performed By: #### C MP, URIC, CBC ####[place] [id number] [facility] ALP [Catalytic activity/Vol] 104 U/L Normal 34-104 [facility] Comment on above: Performed By: #### C MP, URIC, CBC ####[place] [id number] [facility] ALT [Catalytic activity/Vol] 17 U/L Normal 7-52 [facility] Comment on above: Performed By: #### C MP, URIC, CBC ####[place] [id number] [facility] Anion gap [Moles/Vol] 8.7 mmol/L Normal 6.0-15.0 [facility] Comment on above: Performed By: #### C MP, URIC, CBC ####[place] [id number] [facility] AST [Catalytic activity/Vol] 24 U/L Normal 13-39 [facility] Comment on above: Performed By: #### C MP, URIC, CBC ####[place] [id number] [facility] Bilirubin [Mass/Vol] 0.7 mg/dL Normal 0.3-1.0 [facility] Comment on above: Performed By: #### C MP, URIC, CBC ####[place] [address] [place] [address] [facility] Calcium [Mass/Vol] 10.3 mg/dL Normal 8.6-10.3 [facility] Comment on above: Performed By: #### C MP, URIC, CBC ####[place] [id number] [facility] Chloride [Moles/Vol] 105 mmol/L Normal 98-107 [facility] Comment on above: Performed By: #### C MP, URIC, CBC ####[place] [id number] [facility] CO2 [Moles/Vol] 31.9 mmol/L High 21.0-31.0 [facility] Comment on above: Performed By: #### C MP, URIC, CBC ####[place] [id number] [facility] Creatinine [Mass/Vol] 1.34 mg/dL High 0.70-1.30 [facility] Comment on above: Performed By: #### C MP, URIC, CBC ####[place] [id number] [place] GFR/1.73 sq M.predicted MDRD (S/P/Bld) [Vol rate/Area] 58.788 mL/min/{1.73_m2} [facility] Comment on above: Performed By: #### C MP, URIC, CBC ####[place] [id number] [facility] Globulin (S) [Mass/Vol] 2.6 g/dL [facility] Comment on above: Performed By: #### C MP, URIC, CBC ####[place] [id number] [facility] Glucose [Mass/Vol] 116 mg/dL High 70-100 [facility] Comment on above: Result Comment: [place] Glucose Reference Range is dependent on time and content of last meal. Glucose of more than 200 mg/dL in a nonstressed, ambulatory subject supports the diagnosis of Diabetes Mellitus. ADA recommended reference range Performed By: #### C MP, URIC, CBC ####[facility] [id number] [place] [address] [facility] Potassium [Moles/Vol] 4.6 mmol/L Normal 3.5-5.1 [facility] Comment on above: Performed By: #### C MP, URIC, CBC ####[facility] [id number] [place] [address] [facility] Protein [Mass/Vol] 6.7 g/dL Normal 6.4-8.9 [facility] Comment on above: Performed By: #### C MP, URIC, CBC ####[place] [address] [place] [address] [facility] Sodium [Moles/Vol] 141 mmol/L Normal 136-145 [facility] Comment on above: Performed By: #### C MP, URIC, CBC ####[place] [address] [place] [address] [facility] Urea nitrogen [Mass/Vol] 27 mg/dL High 7-25 [facility] Comment on above: Performed By: #### C MP, URIC, CBC ####[place] [address] [place] [address] [facility] Creatinine [Mass/volume] in Serum or PlasmaOrdered By: Teri Ybarra on 11-12-2022 Creatinine [Mass/Vol] 1.34 mg/dL 0.70-1.30 [facility] Eosinophils Auto (Bld) [#/Vo l]Ordered By: Teri Ybarra on 11-12-2022 Eosinophils (Bld) [#/Vol] 0.4 10*3/uL 0.0-0.45 [facility] Eosinophils/100 WBC Auto (Bl d)Ordered By: Teri Ybarra on 11-12-2022 Eosinophils/100 WBC (Bld) 6.9 % . [facility] Erythrocyte distribution wid th Auto (RBC) [Ratio]Ordered By: Teri Ybarra on 11-12-2022 Erythrocyte distribution width (RBC) [Ratio] 15.0 % 12.0-14.8 [facility] Globulin Calc (S) [Mass/Vol] Ordered By: Teri Ybarra on 11-12-2022 Globulin (S) [Mass/Vol] 2.6 g/dL [facility] Glucose [Mass/volume] in Ser um or PlasmaOrdered By: Teri Ybarra on 11-12-2022 Glucose [Mass/Vol] 116 mg/dL 70-100 [facility] Comment on above: ADA recommended refe rence rangeRandom Glucose Reference Range is dependent on time and content of last meal. Glucose of more than 200 mg/dL in a nonstressed, ambulatory subject supports the diagnosis of Diabetes Mellitus. Hematocrit Auto (Bld) [Volum e fraction]Ordered By: Teri Ybarra on 11-12-2022 Hematocrit (Bld) [Volume fraction] 36.8 % 38.8-50.0 [facility] Hemoglobin [Mass/volume] in BloodOrdered By: Teri Ybarra on 11-12-2022 Hemoglobin (Bld) [Mass/Vol] 12.0 g/dL 13.0-17.0 [facility] Leukocytes [#/volume] correc martin for nucleated erythrocytes in Blood by Automated counOrdered By: Teri Ybarra on 11-12-2022 WBC corrected for nucl RBC Auto (Bld) [#/Vol] 5.9 10*3/uL 4.1-10.5 [facility] Lymphocytes Auto (Bld) [#/Vo l]Ordered By: Teri Ybarra on 11-12-2022 Lymphocytes (Bld) [#/Vol] 0.7 10*3/uL 1.00-4.8 [facility] Lymphocytes/100 WBC Auto (Bl d)Ordered By: Teri Ybarra on 11-12-2022 Lymphocytes/100 WBC (Bld) 12.7 % . [facility] MCH Auto (RBC) [Entitic mass ]Ordered By: Teri Ybarra on 11-12-2022 MCH (RBC) [Entitic mass] 27.9 pg 27.5-35.2 [facility] MCHC Auto (RBC) [Mass/Vol]Or dered By: Teri Ybarra on 11-12-2022 MCHC (RBC) [Mass/Vol] 32.7 g/dL 32.5-35.6 [facility] MCV Auto (RBC) [Entitic vol] Ordered By: Teri Ybarra on 11-12-2022 MCV (RBC) [Entitic vol] 85.4 fL 83.5-101 [facility] Monocytes Auto (Bld) [#/Vol] Ordered By: Teri Ybarra on 11-12-2022 Monocytes (Bld) [#/Vol] 0.7 10*3/uL 0.0-0.8 [facility] Monocytes/100 WBC Auto (Bld) Ordered By: Teri Ybarra on 11-12-2022 Monocytes/100 WBC (Bld) 12.7 % . [facility] Neutrophils Auto (Bld) [#/Vo l]Ordered By: Teri Ybarra on 11-12-2022 Neutrophils (Bld) [#/Vol] 3.9 10*3/uL 1.8-7.7 [facility] Neutrophils/100 WBC Auto (Bl d)Ordered By: Teri Ybarra on 11-12-2022 Neutrophils/100 WBC (Bld) 67.0 % . [facility] No Panel InformationOrdered By: Teri Ybarra on 11-12-2022 Estimated GFR (CKD-EPI) 58.788 mL/Min [facility] Creatinine Clearance (Chem N/A [facility] Nucleated erythrocytes [Pres ence] in Blood by Automated countOrdered By: Teri Ybarra on 11-12-2022 Nucleated RBC Auto Ql (Bld) 0.1 /100{WBC} 0-0.5 [facility] Platelet mean volume Auto (B ld) [Entitic vol]Ordered By: Teri Ybarra on 11-12-2022 Platelet mean volume (Bld) [Entitic vol] 7.4 fL 6.6-10.1 [facility] Platelets Auto (Bld) [#/Vol] Ordered By: Teri Ybarra on 11-12-2022 Platelets (Bld) [#/Vol] 189 10*3/uL 150-450 [facility] Potassium [Moles/volume] in Serum or PlasmaOrdered By: Teri Ybarra on 11-12-2022 Potassium [Moles/Vol] 4.6 mmol/L 3.5-5.1 [facility] Protein [Mass/volume] in Ser um or PlasmaOrdered By: Teri Ybarra on 11-12-2022 Protein [Mass/Vol] 6.7 g/dL 6.4-8.9 [facility] RBC Auto (Bld) [#/Vol]Ordere d By: Teri Ybarra on 11-12-2022 RBC (Bld) [#/Vol] 4.30 10*6/uL 3.90-5.60 [facility] Serum or plasma albumin/glob ulin mass ratioOrdered By: Teri Ybarra on 11-12-2022 Albumin/Globulin [Mass ratio] 1.6 {ratio} [facility] Serum or plasma anion gap de terminationOrdered By: Teri Ybarra on 11-12-2022 Anion gap [Moles/Vol] 8.7 mmol/L 6.0-15.0 [facility] Sodium [Moles/volume] in Ser um or PlasmaOrdered By: Teri Ybarra on 11-12-2022 Sodium [Moles/Vol] 141 mmol/L 136-145 [facility] Urate [Mass/volume] in Serum or PlasmaOrdered By: Teri Ybarra on 11-12-2022 Urate [Mass/Vol] 5.0 mg/dL 4.4-7.6 [facility] Urea nitrogen [Mass/volume] in Serum or PlasmaOrdered By: Teri Ybarra on 11-12-2022 Urea nitrogen [Mass/Vol] 27 mg/dL 7-25 [facility] Uric Acidon 11-12-2022 Urate [Mass/Vol] 5.0 mg/dL Normal 4.4-7.6 [facility] Comment on above: Result Comment: PERF ORMED BY:[facility] [place], [place] [phone] MEDICAL DIRECTORAPRIL VEGA M.D. Performed By: #### C MP, URIC, CBC ####[facility] [id number] [place] [address] [facility] WBC Auto (Bld) [#/Vol]Ordere d By: eTri Ybarra on 11-12-2022 WBC (Bld) [#/Vol] 5.9 10*3/uL 4.1-10.5 [facility] A1C HEMOGLOBINon 10-11-2022 HbA1c (Bld) [Mass fraction] 7.2 % [facility] [employer] Other HbA1c (Bld) [Mass fraction]o n 10-11-2022 A1C HEMOGLOBIN [facility] [employer] Other Potassiumon 10-10-2022 Potassium [Moles/Vol] 4.0 mmol/L Normal 3.5-5.1 [facility] Comment on above: Order Comment: Reaso n for Exam Low serum potassium level Result Comment: PERF ORMED BY:[facility] [place], [place] [phone] MEDICAL DIRECTORAPRIL VEGA M.D. Performed By: #### K ####[facility] [place] [address] [facility] Potassium [Moles/volume] in Serum or PlasmaOrdered By: Geeta Dumont on 10-10-2022 Potassium [Moles/Vol] 4.0 mmol/L 3.5-5.1 [facility] MR head/brain wo conon 09-28 MR head/brain wo con Normal [facility] Office Visit (Cardiology)on 09-07-2022 Follow-up visit Diagnoses/Problems Assessed Atherosclerosis of [place] coronary artery without angina pectoris (414.01) (I25.10) Presence of Watchman left atrial appendage closure device (V45.09) (Z95.818) Chronic atrial fibrillation (427.31) (I48.20) Class 2 obesity with body mass index (BMI) of 35.0 to 35.9 in adult (278.00,V85.35) (E66.9,Z68.35) Status post angioplasty (V45.89) (Z98.62) Mild hypertrophic obstructive cardiomyopathy (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.11) (I42.1) Hyperlipidemia (272.4) (E78.5) Diabetes mellitus (250.00) (E11.9) Former smoker (V15.82) (Z87.891) Quit in 2006 Orders Atherosclerosis of [place] coronary artery without angina pectoris Renew: Aspirin Adult Low Dose 81 MG Oral Tablet Delayed Release; TAKE 1 TABLET DAILY Class 2 obesity with body mass index (BMI) of 35.0 to 35.9 in adult Healthy Weight Tips; Status:Complete - Retrospective Authorization; Done: 07Sep2022 Some eating tips that can help you lose weight.; Status:Complete - Retrospective Authorization; Done: 07Sep2022 Hyperlipidemia Renew: Atorvastatin Calcium 20 MG Oral Tablet; TAKE 1 TABLET DAILY SocHx: Former smoker Tobacco Use Screening; Status:Complete; Done: 07Sep2022 Patient Instructions Please bring all medicines, vitamins, and herbal supplements with you when you come to the office. Prescriptions will not be filled unless you are compliant with your follow up appointments or have a follow up appointment scheduled as per instruction of your physician. Refills should be requested at the time of your visit. Follow up in 6 months Chief Complaint SANDRA POTTER is being seen for a 6-8 month follow-up of. 67-year-old gentleman returns for follow-up with episodic hypokalemia which is symptomatic in nature, edema, resolved by increasing his potassium and or Bumex dosing as needed. He is on high-dose Bumex and metolazone diuretics as well as high-dose potassium and magnesium for supplementation. He has a history of single-vessel ASHD with remote PCI of the LAD, hypertrophic cardiomyopathy, chronic atrial fibrillation, history of Watchman device implantation. He is not on any anticoagulation and off clopidogrel altogether. Review of his most recent renal profile reveals normal potassium of 3.9 and normal creatinine of 1.12. Comorbidities continue to include diabetes, exogenous obesity (status post gastric bypass), controlled hypertension, adverse reactions/allergies to NUBIA inhibitors. He is off atenolol altogether due to bradycardia. On exam he has a bradycardic irregular rhythm he has trace edema Recommendations, continue current therapies, follow-up again in 6 to 8 months, continuous assessment of renal profile and electrolytes. Surgical History Problems History of Appendectomy History of Atrial appendage closure device insertion History of Atrial cardioversion History of Colon surgery History of Colonoscopy 16Jan2015 History of Gastric bypass surgery History of Hammer toe surgery History of Hernia repair History of Percutaneous transluminal coronary angioplasty History of Toe amputation Past Medical History Problems History of Abnormal CT lung screening (793.19) (R91.8) History of Abnormal PFT (794.2) (R94.2) History of CHF (NYHA class II, ACC/AHA stage C) (428.0) (I50.9) Resolved Date: 25 Jan 2021 History of abnormal electrocardiography (V12.59) (Z86.79) History of atrial fibrillation (V12.59) (Z86.79) History of bradycardia (V12.59) (Z87.898) Resolved Date: 25 Jan 2021 History of chest pain (V13.89) (Z87.898) History of hemoptysis (V12.69) (Z87.898) Resolved Date: 25 Jan 2021 History of hypokalemia (V12.29) (Z86.39) History of morbid obesity (V13.89) (Z86.39) History of palpitations (V12.59) (Z87.898) History of shortness of breath (V13.89) (Z87.898) History of Other primary cardiomyopathies (425.4) (I42.8) History of Right lower lobe lung mass (786.6) (R91.8) History of Single vessel coronary disease (414.00) (I25.10) Current Meds Medication NameInstruction Albuterol Sulfate HFA 108 (90 Base) MCG/ACT Inhalation Aerosol SolutionINHALE 1 TO 2 PUFFS EVERY 4 TO 6 HOURS NEEDED Allopurinol 300 MG Oral TabletTAKE 1 TABLET DAILY. Aspirin Adult Low Dose 81 MG Oral Tablet Delayed ReleaseTAKE 1 TABLET DAILY. Atorvastatin Calcium 20 MG Oral TabletTAKE 1 TABLET DAILY. Bumetanide 2 MG Oral TabletTAKE 1 TABLET BY MOUTH IN THE MORNING AND 1 TABLET BY MOUTH IN THE AFTERNOON Fluticasone Propionate 50 MCG/ACT Nasal SuspensionINSTILL SQUIRT PRN Gabapentin 600 MG Oral TabletTake 2 tablets twice daily. glipiZIDE ER 2.5 MG Oral Tablet Extended Release 24 HourTAKE 1 TABLET TWICE DAILY DIRECTED. Magnesium Oxide 400 MG Oral TabletTAKE 1 TABLET TWICE DAILY. metOLazone 5 MG Oral TabletTAKE 1 TABLET BY MOUTH DAILY 1/2 HOUR BEFORE BUMEX Nitroglycerin 0.4 MG Sublingual Tablet SublingualDISSOLVE 1 TABLET UNDER THE TONGUE NEEDED FOR CHEST PAIN- MAY REPEAT EVERY 5 MINUTES IF NEEDED (MAX 3 DOSES.- IF NO RELIEF CALL 911) (more content not included)... Normal [employer] Tobacco Screening.on 023 Adult depression screening assessment No [facility] [address] DO Work Phone: Fall risk assessment a) No falls within the last year [facility] [address] DO Work Phone: Tobacco use status CPHS b) No [facility] [address] DO Work Phone: Basic Metabolic Panelon 08-17 Anion gap [Moles/Vol] 14.0 mmol/L Normal 6.0-15.0 [facility] Comment on above: Performed By: #### B MP ####[address] [place] [address] [facility] Calcium [Mass/Vol] 10.5 mg/dL High 8.6-10.3 [facility] Comment on above: Result Comment: PERF ORMED BY:[address] [place], [place] [phone] MEDICAL DIRECTORAPRIL VEGA M.D. Performed By: #### B MP ####[address] [address] [facility] Chloride [Moles/Vol] 102 mmol/L Normal 98-107 [facility] Comment on above: Performed By: #### B MP ####[address] [place] [address] [facility] CO2 [Moles/Vol] 26.9 mmol/L Normal 21.0-31.0 [facility] Comment on above: Performed By: #### B MP ####[address] [place] [address] [facility] Creatinine [Mass/Vol] 1.12 mg/dL Normal 0.70-1.30 [facility] Comment on above: Performed By: #### B MP ####[address] [place] [address] [facility] GFR/1.73 sq M.predicted MDRD (S/P/Bld) [Vol rate/Area] mL/min/{1.73_m2} Normal [facility] Comment on above: Performed By: #### B MP ####[address] [place] [address] [facility] Glucose [Mass/Vol] 137 mg/dL High 70-100 [facility] Comment on above: Result Comment: [place] Glucose Reference Range is dependent on time and content of last meal. Glucose of more than 200 mg/dL in a nonstressed, ambulatory subject supports the diagnosis of Diabetes Mellitus. ADA recommended reference range Performed By: #### B MP ####[facility] [place] [address] [facility] Potassium [Moles/Vol] 3.9 mmol/L Normal 3.5-5.1 [facility] Comment on above: Performed By: #### B MP ####[address] [place] [id number] [facility] Sodium [Moles/Vol] 139 mmol/L Normal 136-145 [facility] Comment on above: Performed By: #### B MP ####[address] [place] [address] [facility] Urea nitrogen [Mass/Vol] 23 mg/dL Normal 7-25 [facility] Comment on above: Performed By: #### B MP ####[address] [place] [id number] [facility] Calcium [Mass/volume] in Ser um or PlasmaOrdered By: Stephanie Burgess on 09-05-2022 Calcium [Mass/Vol] 10.5 mg/dL 8.6-10.3 [facility] Carbon dioxide, total [Moles /volume] in Serum or PlasmaOrdered By: Stephanie Burgess on 09-05-2022 CO2 [Moles/Vol] 26.9 mmol/L 21.0-31.0 [facility] Chloride [Moles/volume] in S elm[place] or PlasmaOrdered By: Stephanie Burgess on 09-05-2022 Chloride [Moles/Vol] 102 mmol/L 98-107 [facility] Creatinine [Mass/volume] in Serum or PlasmaOrdered By: Stephanie Burgess on 06-21-2023 Creatinine [Mass/Vol] 1.12 mg/dL 0.70-1.30 [facility] Glucose [Mass/volume] in Ser um or PlasmaOrdered By: Stephanie Burgess on 09-05-2022 Glucose [Mass/Vol] 137 mg/dL 70-100 [facility] Comment on above: ADA recommended refe rence rangeRandom Glucose Reference Range is dependent on time and content of last meal. Glucose of more than 200 mg/dL in a nonstressed, ambulatory subject supports the diagnosis of Diabetes Mellitus. No Panel InformationOrdered By: Stephanie Burgess on 09-05-2022 Estimated GFR (CKD-EPI) > 60.0 mL/Min [facility] Creatinine Clearance (Chem N/A [facility] No Panel Informationon 09-05 > 60.0 Normal [facility] 250 DO Work Phone: 14.0\S\14.0 Normal 6.0-15.0 [facility] [address] DO Work Phone: 10.5\S\10.5 above high threshold 8.6-10.3 [facility] Work Phone: Comment on above: PERFORMED BY:[facility] [place], [place] [phone] MEDICAL DIRECTORAPRIL VEGA M.D. 26.9\S\26.9 Normal 21.0-31.0 [facility] [address] DO Work Phone: [phone] 102\S\102 Normal 98-107 [facility] DO Work Phone: [phone] 3.9\S\3.9 Normal 3.5-5.1 [facility] [address] DO Work Phone: 139\S\139 Normal 136-145 [facility] Work Phone: 1.12\S\1.12 Normal 0.70-1.30 [facility] [address] DO Work Phone: 23\S\23 Normal 7-25 [facility] [address] DO Work Phone: 137\S\137 above high threshold 70-100 [facility] [address] DO Work Phone: Comment on above: Random Glucose Refer ence Range is dependent on time and content of last meal. Glucose of more than 200 mg/dL in a nonstressed, ambulatory subject supports the diagnosis of Diabetes Mellitus. ADA recommended reference range Potassium [Moles/volume] in Serum or PlasmaOrdered By: Stephanie Burgess on 09-05-2022 Potassium [Moles/Vol] 3.9 mmol/L 3.5-5.1 [facility] Serum or plasma anion gap de terminationOrdered By: Stephanie Burgess on 09-05-2022 Anion gap [Moles/Vol] 14.0 mmol/L 6.0-15.0 [facility] Sodium [Moles/volume] in Ser um or PlasmaOrdered By: Stephanie Burgess on 09-05-2022 Sodium [Moles/Vol] 139 mmol/L 136-145 [facility] Urea nitrogen [Mass/volume] in Serum or PlasmaOrdered By: Stephanie Burgess on 09-05-2022 Urea nitrogen [Mass/Vol] 23 mg/dL 10-09 [facility] XR cervical spine 2Von 09-03 XR cervical spine 2V Normal [facility] Alanine aminotransferase [En zymatic activity/volume] in Serum or PlasmaOrdered By: Geeta Dumont on 08-29-2022 ALT [Catalytic activity/Vol] 19 U/L [facility] Albumin [Mass/volume] in Ser um or Plasma by Bromocresol green (BCG) dye binding methoOrdered By: Geeta Dumont on 08-29-2022 Albumin BCG dye [Mass/Vol] 4.3 g/dL 3.5-5.7 [facility] Alkaline phosphatase [Enzyma tic activity/volume] in Serum or PlasmaOrdered By: Geeta Dumont on 08-29-2022 ALP [Catalytic activity/Vol] 96 U/L 34-104 [facility] Aspartate aminotransferase [ Enzymatic activity/volume] in Serum or PlasmaOrdered By: Geeta Dumont on 08-29-2022 AST [Catalytic activity/Vol] 25 U/L 13-39 [facility] Basophils Auto (Bld) [#/Vol] Ordered By: Geeta Dumont on 08-29-2022 Basophils (Bld) [#/Vol] 0.0 10*3/uL 0.0-0.2 [facility] Basophils/100 WBC Auto (Bld) Ordered By: Geeta Dumont on 08-29-2022 Basophils/100 WBC (Bld) 0.7 % . [facility] Bilirubin.total [Mass/volume ] in Serum or PlasmaOrdered By: Geeta Dumont on 08-29-2022 Bilirubin [Mass/Vol] 0.6 mg/dL 0.3-1.0 [facility] Calcium [Mass/volume] in Ser um or PlasmaOrdered By: Geeta Dumont on 08-29-2022 Calcium [Mass/Vol] 10.6 mg/dL 8.6-10.3 [facility] Carbon dioxide, total [Moles /volume] in Serum or PlasmaOrdered By: Geeta Dumont on 08-29-2022 CO2 [Moles/Vol] 28.0 mmol/L 21.0-31.0 [facility] Chloride [Moles/volume] in S elmira or PlasmaOrdered By: Geeta Dumont on 08-29-2022 Chloride [Moles/Vol] 102 mmol/L 98-107 [facility] Cholesterol [Mass/volume] in Serum or PlasmaOrdered By: Geeta Dumont on 08-29-2022 Cholesterol [Mass/Vol] 141 mg/dL 140-200 [facility] Comment on above: Chol less than 200 m g/dl low riskChol 201-239 mg/dl borderline riskChol 240 mg/dl and greater high risk Cholesterol in LDL Calc [Mas s/Vol]Ordered By: Geeta Dumont on 08-29-2022 Cholesterol in LDL [Mass/Vol] 77 mg/dL 0-100 [facility] Comment on above: LDL ATP III CLASSIFI CATIONLDL less than 100 mg/dL OptimalLDL 100-129 mg/dL Near or above optimalLDL 130-159 mg/dL Borderline highLDL 160-189 mg/dL HighLDL greater than 189 mg/dL Very high Cholesterol in VLDL Calc [Ma ss/Vol]Ordered By: Geeta Dumont on 08-29-2022 Cholesterol in VLDL [Mass/Vol] 19 mg/dL [facility] Complete Blood Count Auto Di ffon 08-29-2022 Basophils (Bld) [#/Vol] 0.0 10*3/uL Normal 0.0-0.2 [facility] Comment on above: Order Comment: Reaso n for 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 Result Comment: PERF ORMED BY:[address] [place], [place] [phone] MEDICAL DIRECTORAPRIL VEGA M.D. Performed By: #### M G, LIPID, URMACRERAT, CMP, CBC, B12, TSH3 wRFLX ####[address] [address] [facility] Basophils/100 WBC (Bld) 0.7 % Normal . [facility] Comment on above: Order Comment: Reaso n for 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 Performed By: #### M G, LIPID, URMACRERAT, CMP, CBC, B12, TSH3 wRFLX ####[address] [address] [place] Eosinophils (Bld) [#/Vol] 0.4 10*3/uL Normal 0.0-0.45 [facility] Comment on above: Order Comment: Reaso n for 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 Performed By: #### M G, LIPID, URMACRERAT, CMP, CBC, B12, TSH3 wRFLX ####[address] [address] [place] Eosinophils/100 WBC (Bld) 6.7 % Normal . [facility] Comment on above: Order Comment: Reaso n for 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 Performed By: #### M G, LIPID, URMACRERAT, CMP, CBC, B12, TSH3 wRFLX ####[address] Erythrocyte distribution width (RBC) [Ratio] 15.2 % High 12.0-14.8 [facility] Comment on above: Order Comment: Reaso n for 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 Performed By: #### M G, LIPID, URMACRERAT, CMP, CBC, B12, TSH3 wRFLX ####[address] Hematocrit (Bld) [Volume fraction] 38.7 % Low 38.8-50.0 [facility] Comment on above: Order Comment: Reaso n for 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 Performed By: #### M G, LIPID, URMACRERAT, CMP, CBC, B12, TSH3 wRFLX ####[address] Hemoglobin (Bld) [Mass/Vol] 12.9 g/dL Low 13.0-17.0 [facility] Comment on above: Order Comment: Reaso n for 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 Performed By: #### M G, LIPID, URMACRERAT, CMP, CBC, B12, TSH3 wRFLX ####[address] Lymphocytes (Bld) [#/Vol] 0.9 10*3/uL Low 1.00-4.8 [facility] Comment on above: Order Comment: Reaso n for 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 Performed By: #### M G, LIPID, URMACRERAT, CMP, CBC, B12, TSH3 wRFLX ####[place] [id number] [facility] Lymphocytes/100 WBC (Bld) 14.4 % Normal . [facility] Comment on above: Order Comment: Reaso n for 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 Performed By: #### M G, LIPID, URMACRERAT, CMP, CBC, B12, TSH3 wRFLX ####[address] MCH (RBC) [Entitic mass] 28.8 pg Normal 27.5-35.2 [facility] Comment on above: Order Comment: Reaso n for 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 Performed By: #### M G, LIPID, URMACRERAT, CMP, CBC, B12, TSH3 wRFLX ####[address] MCV (RBC) [Entitic vol] 86.6 fL Normal 83.5-101 [facility] Comment on above: Order Comment: Reaso n for 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 Performed By: #### M G, LIPID, URMACRERAT, CMP, CBC, B12, TSH3 wRFLX ####[address] Mean Corpuscular HGB Conc 33.3 g/dL Normal 32.5-35.6 [facility] Comment on above: Order Comment: Reaso n for 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 Performed By: #### M G, LIPID, URMACRERAT, CMP, CBC, B12, TSH3 wRFLX ####[address] Monocytes (Bld) [#/Vol] 0.6 10*3/uL Normal 0.0-0.8 [facility] Comment on above: Order Comment: Reaso n for 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 Performed By: #### M G, LIPID, URMACRERAT, CMP, CBC, B12, TSH3 wRFLX ####[address] Monocytes/100 WBC (Bld) 9.9 % Normal . [facility] Comment on above: Order Comment: Reaso n for 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 Performed By: #### M G, LIPID, URMACRERAT, CMP, CBC, B12, TSH3 wRFLX ####[address] [address] [facility] Neutrophils (Bld) [#/Vol] 4.4 10*3/uL Normal 1.8-7.7 [facility] Comment on above: Order Comment: Reaso n for 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 Performed By: #### M G, LIPID, URMACRERAT, CMP, CBC, B12, TSH3 wRFLX ####[address] [address] [facility] Neutrophils/100 WBC (Bld) 68.3 % Normal . [facility] Comment on above: Order Comment: Reaso n for 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 Performed By: #### M G, LIPID, URMACRERAT, CMP, CBC, B12, TSH3 wRFLX ####[address] [address] [facility] NRBC% 0.1 /100{WBC} Normal 0-0.5 [facility] Comment on above: Order Comment: Reaso n for 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 Performed By: #### M G, LIPID, URMACRERAT, CMP, CBC, B12, TSH3 wRFLX ####[address] [address] [facility] Platelet mean volume (Bld) [Entitic vol] 7.2 fL Normal 6.6-10.1 [facility] Comment on above: Order Comment: Reaso n for 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 Performed By: #### M G, LIPID, URMACRERAT, CMP, CBC, B12, TSH3 wRFLX ####[address] [address] [facility] Platelets (Bld) [#/Vol] 208 10*3/uL Normal 150-450 [facility] Comment on above: Order Comment: Reaso n for 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 Performed By: #### M G, LIPID, URMACRERAT, CMP, CBC, B12, TSH3 wRFLX ####[address] [address] [facility] RBC (Bld) [#/Vol] 4.47 10*6/uL Normal 3.90-5.60 [facility] Comment on above: Order Comment: Reaso n for 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 Performed By: #### M G, LIPID, URMACRERAT, CMP, CBC, B12, TSH3 wRFLX ####[address] [place] [address] [facility] WBC (Bld) [#/Vol] 6.4 10*3/uL Normal 4.1-10.5 [facility] Comment on above: Order Comment: Reaso n for 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 Performed By: #### M G, LIPID, URMACRERAT, CMP, CBC, B12, TSH3 wRFLX ####[address] [address] [facility] Comprehensive Metabolic Pane anny 08-29-2022 Albumin [Mass/Vol] 4.3 g/dL Normal 3.5-5.7 [facility] Comment on above: Order Comment: Reaso n for 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 Reason for Exam Restless legs Reason for Exam Acquired hypothyroidism Performed By: #### M G, LIPID, URMACRERAT, CMP, CBC, B12, TSH3 wRFLX ####[address] [address] [facility] Albumin/Globulin [Mass ratio] 1.7 {ratio} Normal [facility] Comment on above: Order Comment: Reaso n for 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 Reason for Exam Restless legs Reason for Exam Acquired hypothyroidism Performed By: #### M G, LIPID, URMACRERAT, CMP, CBC, B12, TSH3 wRFLX ####[address] [address] [facility] ALP [Catalytic activity/Vol] 96 U/L Normal 34-104 [facility] Comment on above: Order Comment: Reaso n for 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 Reason for Exam Restless legs Reason for Exam Acquired hypothyroidism Performed By: #### M G, LIPID, URMACRERAT, CMP, CBC, B12, TSH3 wRFLX ####[address] [address] [facility] ALT [Catalytic activity/Vol] 19 U/L Normal 7-52 [facility] Comment on above: Order Comment: Reaso n for 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 Reason for Exam Restless legs Reason for Exam Acquired hypothyroidism Performed By: #### M G, LIPID, URMACRERAT, CMP, CBC, B12, TSH3 wRFLX ####[address] [address] [facility] Anion gap [Moles/Vol] 13.7 mmol/L Normal 6.0-15.0 [facility] Comment on above: Order Comment: Reaso n for 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 Reason for Exam Restless legs Reason for Exam Acquired hypothyroidism Performed By: #### M G, LIPID, URMACRERAT, CMP, CBC, B12, TSH3 wRFLX ####[address] [address] [facility] AST [Catalytic activity/Vol] 25 U/L Normal 13-39 [facility] [facility] Comment on above: Order Comment: Reaso n for 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 Reason for Exam Restless legs Reason for Exam Acquired hypothyroidism Performed By: #### M G, LIPID, URMACRERAT, CMP, CBC, B12, TSH3 wRFLX ####[address] [address] [facility] Bilirubin [Mass/Vol] 0.6 mg/dL Normal 0.3-1.0 [facility] Comment on above: Order Comment: Reaso n for 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 Reason for Exam Restless legs Reason for Exam Acquired hypothyroidism Performed By: #### M G, LIPID, URMACRERAT, CMP, CBC, B12, TSH3 wRFLX ####[address] [address] [facility] Calcium [Mass/Vol] 10.6 mg/dL High 8.6-10.3 [facility] Comment on above: Order Comment: Reaso n for 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 Reason for Exam Restless legs Reason for Exam Acquired hypothyroidism Performed By: #### M G, LIPID, URMACRERAT, CMP, CBC, B12, TSH3 wRFLX ####[address] [address] [facility] Chloride [Moles/Vol] 102 mmol/L Normal 98-107 [facility] Comment on above: Order Comment: Reaso n for 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 Reason for Exam Restless legs Reason for Exam Acquired hypothyroidism Performed By: #### M G, LIPID, URMACRERAT, CMP, CBC, B12, TSH3 wRFLX ####[address] [address] [facility] CO2 [Moles/Vol] 28.0 mmol/L Normal 21.0-31.0 [facility] Comment on above: Order Comment: Reaso n for 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 Reason for Exam Restless legs Reason for Exam Acquired hypothyroidism Performed By: #### M G, LIPID, URMACRERAT, CMP, CBC, B12, TSH3 wRFLX ####[place] [id number] [facility] Creatinine [Mass/Vol] 1.21 mg/dL Normal 0.70-1.30 [facility] Comment on above: Order Comment: Reaso n for 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 Reason for Exam Restless legs Reason for Exam Acquired hypothyroidism Performed By: #### M G, LIPID, URMACRERAT, CMP, CBC, B12, TSH3 wRFLX ####[place] [id number] [facility] GFR/1.73 sq M.predicted MDRD (S/P/Bld) [Vol rate/Area] mL/min/{1.73_m2} [facility] Comment on above: Order Comment: Reaso n for 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 Reason for Exam Restless legs Reason for Exam Acquired hypothyroidism Performed By: #### M G, LIPID, URMACRERAT, CMP, CBC, B12, TSH3 wRFLX ####[address] [address] [facility] Globulin (S) [Mass/Vol] 2.5 g/dL Normal [facility] Comment on above: Order Comment: Reaso n for 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 Reason for Exam Restless legs Reason for Exam Acquired hypothyroidism Performed By: #### M G, LIPID, URMACRERAT, CMP, CBC, B12, TSH3 wRFLX ####[facility] [address] [place] [address] [facility] Glucose [Mass/Vol] 158 mg/dL High 70-100 [facility] Comment on above: Order Comment: Reaso n for 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 Reason for Exam Restless legs Reason for Exam Acquired hypothyroidism Result Comment: [facility] [place] [place] Glucose Reference Range is dependent on time and content of last meal. Glucose of more than 200 mg/dL in a nonstressed, ambulatory subject supports the diagnosis of Diabetes Mellitus. ADA recommended reference range Performed By: #### M G, LIPID, URMACRERAT, CMP, CBC, B12, TSH3 wRFLX ####[place] [address] [place] [address] [facility] Potassium [Moles/Vol] 3.7 mmol/L Normal 3.5-5.1 [facility] Comment on above: Order Comment: Reaso n for 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 Reason for Exam Restless legs Reason for Exam Acquired hypothyroidism Performed By: #### M G, LIPID, URMACRERAT, CMP, CBC, B12, TSH3 wRFLX ####[place] [address] [place] [address] [facility] Protein [Mass/Vol] 6.8 g/dL Normal 6.4-8.9 [facility] Comment on above: Order Comment: Reaso n for 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 Reason for Exam Restless legs Reason for Exam Acquired hypothyroidism Performed By: #### M G, LIPID, URMACRERAT, CMP, CBC, B12, TSH3 wRFLX ####[facility] [id number] [place] [address] [facility] Sodium [Moles/Vol] 140 mmol/L Normal 136-145 [facility] Comment on above: Order Comment: Reaso n for 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 Reason for Exam Restless legs Reason for Exam Acquired hypothyroidism Performed By: #### M G, LIPID, URMACRERAT, CMP, CBC, B12, TSH3 wRFLX ####[facility] [id number] [place] [id number] [facility] Urea nitrogen [Mass/Vol] 30 mg/dL High 7-25 [facility] Comment on above: Order Comment: Reaso n for 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 Reason for Exam Restless legs Reason for Exam Acquired hypothyroidism Performed By: #### M G, LIPID, URMACRERAT, CMP, CBC, B12, TSH3 wRFLX ####[facility] [id number] [place] [id number] [facility] Creatinine [Mass/volume] in Serum or PlasmaOrdered By: Geeta Dumont on 08-29-2022 Creatinine [Mass/Vol] 1.21 mg/dL 0.70-1.30 [facility] Creatinine [Mass/volume] in UrineOrdered By: Geeta Dumont on 08-29-2022 Creatinine (U) [Mass/Vol] 152.0 mg/dL 14.0-26.0 [facility] Eosinophils Auto (Bld) [#/Vo l]Ordered By: Geeta Dumont on 08-29-2022 Eosinophils (Bld) [#/Vol] 0.4 10*3/uL 0.0-0.45 [facility] Eosinophils/100 WBC Auto (Bl d)Ordered By: Geeta Dumont on 08-29-2022 Eosinophils/100 WBC (Bld) 6.7 % . [facility] Erythrocyte distribution wid th Auto (RBC) [Ratio]Ordered By: Geeta Dumont on 08-29-2022 Erythrocyte distribution width (RBC) [Ratio] 15.2 % 12.0-14.8 [facility] Globulin Calc (S) [Mass/Vol] Ordered By: Geeta Dumont on 08-29-2022 Globulin (S) [Mass/Vol] 2.5 g/dL [facility] Glucose [Mass/volume] in Ser um or PlasmaOrdered By: Geeta Dumont on 08-29-2022 Glucose [Mass/Vol] 158 mg/dL 70-100 [facility] Comment on above: ADA recommended refe rence rangeRandom Glucose Reference Range is dependent on time and content of last meal. Glucose of more than 200 mg/dL in a nonstressed, ambulatory subject supports the diagnosis of Diabetes Mellitus. Hematocrit Auto (Bld) [Volum e fraction]Ordered By: Geeta Dumont on 08-29-2022 Hematocrit (Bld) [Volume fraction] 38.7 % 38.8-50.0 [facility] Hemoglobin [Mass/volume] in BloodOrdered By: Geeta Dumont on 08-29-2022 Hemoglobin (Bld) [Mass/Vol] 12.9 g/dL 13.0-17.0 [facility] Leukocytes [#/volume] correc martin for nucleated erythrocytes in Blood by Automated counOrdered By: Geeta Dumont on 08-29-2022 WBC corrected for nucl RBC Auto (Bld) [#/Vol] 6.4 10*3/uL 4.1-10.5 [facility] Lipid Panelon 08-29-2022 Cholesterol [Mass/Vol] 141 mg/dL Normal 140-200 [facility] Comment on above: Order Comment: Reaso n for 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 Reason for Exam Restless legs Reason for Exam Acquired hypothyroidism Result Comment: Chol less than 200 mg/dl low risk Chol 201-239 mg/dl borderline risk Chol 240 mg/dl and greater high risk Performed By: #### M G, LIPID, URMACRERAT, CMP, CBC, B12, TSH3 wRFLX ####[facility] [id number] [place] [address] [facility] Cholesterol in HDL [Mass/Vol] 45 mg/dL Normal 23-92 [facility] Comment on above: Order Comment: Reaso n for 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 Reason for Exam Restless legs Reason for Exam Acquired hypothyroidism Result Comment: HDL CHOL ATP-III CLASSIFICATION Cardiovascular Risk HDL > or equal to 60 mg/dL LOW HDL < 40 mg/dL HIGH Performed By: #### M G, LIPID, URMACRERAT, CMP, CBC, B12, TSH3 wRFLX ####[facility] [id number] [place] [address] [facility] Cholesterol.total/Cho lesterol in HDL [Mass ratio] 3.1 {ratio} Normal <5.0 [facility] Comment on above: Order Comment: Reaso n for 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 Reason for Exam Restless legs Reason for Exam Acquired hypothyroidism Performed By: #### M G, LIPID, URMACRERAT, CMP, CBC, B12, TSH3 wRFLX ####[facility] [id number] [place] [address] [facility] LDL Cholesterol,Calculate d 77 mg/dL Normal 0-100 [facility] Comment on above: Order Comment: Reaso n for 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 Reason for Exam Restless legs Reason for Exam Acquired hypothyroidism Result Comment: LDL ATP III CLASSIFICATION LDL less than 100 mg/dL Optimal LDL 100-129 mg/dL Near or above optimal LDL 130-159 mg/dL Borderline high LDL 160-189 mg/dL High LDL greater than 189 mg/dL Very high Performed By: #### M G, LIPID, URMACRERAT, CMP, CBC, B12, TSH3 wRFLX ####[place] [address] [place] [address] [facility] Triglyceride w/Reflex 97 mg/dL Normal 0-149 [facility] Comment on above: Order Comment: Reaso n for 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 Reason for Exam Restless legs Reason for Exam Acquired hypothyroidism Result Comment: TRIG ATP III CLASSIFICATION TRIG less than 150 mg/dL Normal TRIG 150-199 mg/dL Borderline high TRIG 200-500 mg/dL High TRIG greater than 500 mg/dL Very high Standard traceable to the Center for Disease Conrtrol and Prevention (CDC) test method. 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 Reason for Exam Restless legs Reason for Exam Acquired hypothyroidism Performed By: #### M G, LIPID, URMACRERAT, CMP, CBC, B12, TSH3 wRFLX ####[facility] [address] [place] [address] [facility] Magnesium [Mass/volume] in S elmira or PlasmaOrdered By: Geeta Dumont on 08-29-2022 Magnesium [Mass/Vol] 1.6 mg/dL 1.9-2.7 [facility] MicroAlb Creat Ratio,Uon Albumin DL <= 20 mg/L (U) [Mass/Vol] 6.5 mg/dL High 0.0-1.8 [facility] Comment on above: Order Comment: Reaso n for 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 Performed By: #### M G, LIPID, URMACRERAT, CMP, CBC, B12, TSH3 wRFLX ####[place] [address] [place] [address] [facility] Creatinine, Urine (Random) 152.0 mg/dL High 14.0-26.0 [facility] Comment on above: Order Comment: Reaso n for 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 Greater than 300 mg/g is consistent with clinical nephropathy. (Am. J. Kidney Disease 1995, 25:107)PERFORMED BY:[address] [place], [place] [phone] MEDICAL DIRECTORAPRIL VEGA M.D. Performed By: #### M G, LIPID, URMACRERAT, CMP, CBC, B12, TSH3 wRFLX ####[address] [address] [facility] Microalbumin [Mass/volume] i n UrineOrdered By: Geeta Dumont on 08-29-2022 Albumin DL <= 20 mg/L (U) [Mass/Vol] 6.5 mg/dL 0.0-1.8 [facility] Monocytes Auto (Bld) [#/Vol] Ordered By: Geeta Dumont on 08-29-2022 Monocytes (Bld) [#/Vol] 0.6 10*3/uL 0.0-0.8 [facility] Monocytes/100 WBC Auto (Bld) Ordered By: Geeta Dumont on 08-29-2022 Monocytes/100 WBC (Bld) 9.9 % . [facility] Neutrophils Auto (Bld) [#/Vo l]Ordered By: Geeta Dumont on 08-29-2022 Neutrophils (Bld) [#/Vol] 4.4 10*3/uL 1.8-7.7 [facility] Neutrophils/100 WBC Auto (Bl d)Ordered By: Geeta Dumont on 08-29-2022 Neutrophils/100 WBC (Bld) 68.3 % . [facility] No Panel InformationOrdered By: Geeta Dumont on 08-29-2022 Estimated GFR (CKD-EPI) > 60.0 mL/Min [facility] Creatinine Clearance (Chem N/A [facility] Nucleated erythrocytes [Pres ence] in Blood by Automated countOrdered By: Geeta Dumont on 08-29-2022 Nucleated RBC Auto Ql (Bld) 0.1 /100{WBC} 0-0.5 [facility] Platelet mean volume Auto (B ld) [Entitic vol]Ordered By: Geeta Dumont on 08-29-2022 Platelet mean volume (Bld) [Entitic vol] 7.2 fL 6.6-10.1 [facility] Platelets Auto (Bld) [#/Vol] Ordered By: Geeta Dumont on 08-29-2022 Platelets (Bld) [#/Vol] 208 10*3/uL 150-450 [facility] Potassium [Moles/volume] in Serum or PlasmaOrdered By: Geeta Dumont on 08-29-2022 Potassium [Moles/Vol] 3.7 mmol/L 3.5-5.1 [facility] Protein [Mass/volume] in Ser um or PlasmaOrdered By: Geeta Dumont on 08-29-2022 Protein [Mass/Vol] 6.8 g/dL 6.4-8.9 [facility] RBC Auto (Bld) [#/Vol]Ordere d By: Geeta Dumont on 08-29-2022 RBC (Bld) [#/Vol] 4.47 10*6/uL 3.90-5.60 [facility] Serum or plasma albumin/glob ulin mass ratioOrdered By: Geeta Dumont on 08-29-2022 Albumin/Globulin [Mass ratio] 1.7 {ratio} [facility] Serum or plasma anion gap de terminationOrdered By: Geeta Dumont on 08-29-2022 Anion gap [Moles/Vol] 13.7 mmol/L 6.0-15.0 [facility] Serum or plasma high density lipoprotein (HDL) cholesterol measurementOrdered By: Geeta Dumont on 08-29-2022 Cholesterol in HDL [Mass/Vol] 45 mg/dL 23-92 [facility] Comment on above: HDL CHOL ATP-III CLA SSIFICATION Cardiovascular RiskHDL > or equal to 60 mg/dL LOWHDL < 40 mg/dL HIGH Serum or plasma total choles terol/high density lipoprotein (HDL) cholesterol mass ratOrdered By: Geeta Dumont on 08-29-2022 Cholesterol.total/Cho lesterol in HDL [Mass ratio] 3.1 {ratio} <5.0 [facility] Sodium [Moles/volume] in Ser um or PlasmaOrdered By: Geeta Dumont on 08-29-2022 Sodium [Moles/Vol] 140 mmol/L 136-145 [facility] Thyroid Stim Hormone w/Rflxo n 08-29-2022 Thyroid Stim Hormone w/Rflx 4.34 u[iU]/mL Normal 0.45-5.33 [facility] Comment on above: Order Comment: Reaso n for 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 [place] [phone] MEDICAL DIRECTORAPRIL VEGA M.D. Performed By: #### M G, LIPID, URMACRERAT, CMP, CBC, B12, TSH3 wRFLX ####[facility] [address] [place] [address] [facility] Thyrotropin [Units/volume] i n Serum or PlasmaOrdered By: Geeta Dumont on 08-29-2022 TSH Qn 4.34 m[IU]/L 0.45-5.33 [facility] Triglyceride [Mass/volume] i n Serum or PlasmaOrdered By: Geeta Dumont on 08-29-2022 Triglyceride [Mass/Vol] 97 mg/dL 0-149 [facility] Comment on above: TRIG ATP III CLASSIF ICATIONTRIG less than 150 mg/dL NormalTRIG 150-199 mg/dL Borderline highTRIG 200-500 mg/dL High TRIG greater than 500 mg/dL Very highStandard traceable to the Center for Disease Conrtrol and Prevention (CDC) test method. Urea nitrogen [Mass/volume] in Serum or PlasmaOrdered By: Geeta Dumont on 08-29-2022 Urea nitrogen [Mass/Vol] 30 mg/dL 7-25 [facility] Urine microalbumin/creatinin e mass ratioOrdered By: Geeta Dumont on 08-29-2022 Albumin/Creatinine DL <= 20 mg/L (U) [Mass ratio] 42.0 mg/g 0.0-30.0 [facility] Comment on above: 30-300 mg/g indicate s an increased risk for diabetic nephropathy. Greater than 300 mg/g is consistent with clinical nephropathy. (Am. J. 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 Reason for Exam Restless legs Reason for Exam Acquired hypothyroidism Performed By: #### M G, LIPID, URMACRERAT, CMP, CBC, B12, TSH3 wRFLX ####[facility] [id number] [place] [address] [facility] Vitamin B12 ser/plasOrdered By: Geeta Dumont on 08-29-2022 Cobalamin (Vitamin B12) [Mass/Vol] 304 pg/mL 180-914 [facility] WBC Auto (Bld) [#/Vol]Ordere d By: Geeta Dumont on 08-29-2022 WBC (Bld) [#/Vol] 6.4 10*3/uL 4.1-10.5 [facility] XR chest 2V*on 08-28-2022 XR chest 2V* Normal [facility] XR chest 2V* [facility] [employer] Other XR chest 2V* [facility] [employer] Other XR chest 2V* [address] [facility] [employer] Other XR chest 2V* TACOS [place] [address] [facility] [employer] Other XR chest 2V* XRay Report [employer] Other XR chest 2V* Signed [employer] Other XR chest 2V* Patient: Samantha Potter MR#: [id number] [facility] Other XR chest 2V* 357 [employer] Other XR chest 2V* : 1955 Acct:[id number] [employer] Other XR chest 2V* Age/Sex: 67 / M ADM Date: 08/28/22 [employer] Other XR chest 2V* Loc: [facility] Room: Type : [facility] [employer] Other XR chest 2V* Attending Dr: Jorje Dumont APRN, REPRODUCER-C [employer] Other XR chest 2V* Copies to: Geeta Dumont APRN, ISABELLA [employer] Other XR chest 2V* Ordering Provider: Geeta Dumont APRN, ISABELLA [employer] Other XR chest 2V* Date of Service: 08/28/22 [employer] Other XR chest 2V* [id number]) XR/XR chest 2V*: Other congestive heart failure;Shortness of breath [employer] Other XR chest 2V* Plain film chest 2 view [employer] Other XR chest 2V* HISTORY: Shortness o f breath [employer] Other XR chest 2V* COMPARISON: 03/13/2019 [employer] Other XR chest 2V* FINDINGS: [employer] Other XR chest 2V* SUPPORT DEVICES: None [employer] Other XR chest 2V* POSTSURGICAL CHANGES: None [employer] Other XR chest 2V* HEART: Within normal limits [employer] Other XR chest 2V* PULMONARY SALOME: With in normal limits [employer] Other XR chest 2V* MEDIASTINUM: Unremarkable [employer] Other XR chest 2V* LUNGS AND PLEURA: Si milar basilar parenchymal densities identified. Consider atelectasis/scarring. [employer] Other XR chest 2V* No new consolidation , pleural effusion or pneumothorax. [employer] Other XR chest 2V* BONY STRUCTURES: Intact [employer] Other XR chest 2V* ADDITIONAL FINDINGS None [employer] Other XR chest 2V* X R/XR chest 2V* [employer] Other XR chest 2V* IMPRESSION: Stable b asilar parenchymal densities suggesting atelectasis/scarring. [employer] Other XR chest 2V* Impression dictated by: Kwasi Tomlin M.D.08/28/2022 12:11 PM [employer] Other XR chest 2V* Dictation Location: RADIO--03 [employer] Other XR chest 2V* Transcribed By: PWS 08/28/22 1211 [employer] Other XR chest 2V* Dictated By: Pasha Tomlin DO 08/28/22 1209 [employer] Other XR chest 2V* Signed By: [employer] Other XR chest 2V* 08/28/22 1211 [employer] [facility] [employer] Other Echocardiogramon 07-02-[address], [place] [address] TRANSTHORACIC ECHOCARDIOGRAM REPORT Patient Name: SANDRA POTTER Reading Physician: [id number] Deanne Gaxiola MD Study Date: 07/02/2022 Referring Physician: VIRIDIANA BURGESS MRN/PID: [id number] PCP: Teri Aragon Accession/Order#: [id number] Department Location: [facility] Date of : 1955 Fellow: Gender: M Nurse: Ede Morton RN 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 Optison used as a contrast agent for endocardial border definition. Total contrast used for this procedure was 0.7 mL via IV push. PHYSICIAN INTERPRETATION: Left Ventricle: Left ventricular systolic function is hyperdynamic, with an estimated ejection fraction of 75-80%. There are no regional wall motion abnormalities. The left ventricular cavity size is normal. Spectral Doppler shows a normal pattern of left ventricular diastolic filling. There is mild Asymmetrical left ventricular hypertrophy with septum measuring 1.5 cm versus 1 cm to the posterior wall in addition hyperdynamic LV systolic function with almost obliteration of mid LV cavity causing minor 22 mmHg mid LV cavity gradient. Left Atrium: The left atrium is moderately dilated. Right Ventricle: The right ventricle is normal in size. There is normal right ventricular global systolic function. Right Atrium: The right atrium is normal in size. Aortic Valve: The aortic valve appears structurally normal. There is no evidence of aortic valve regurgitation. The peak instantaneous gradient of the aortic valve is 7.8 mmHg. The mean gradient of the aortic valve is 4.0 mmHg. Mitral Valve: The mitral valve is mildly thickened. There is mild mitral valve regurgitation. Tricuspid Valve: The tricuspid valve is structurally normal. No evidence of tricuspid regurgitation. Pulmonic Valve: The pulmonic valve is structurally normal. There is no indication of pulmonic valve regurgitation. Pericardium: There is no pericardial effusion noted. Aorta: The aortic root is normal. CONCLUSIONS: 1. Left ventricular systolic function is hyperdynamic with a 75-80% estimated ejection fraction. 2. There is mild Asymmetrical left ventricular hypertrophy with septum measuring 1.5 cm versus 1 cm to the posterior wall in addition hyperdynamic LV systolic function with almost obliteration of mid LV cavity causing minor 22 mmHg mid LV cavity gradient. 3. The left atrium is moderately dilated. 4. Mild mitral valve regurgitation. QUANTITATIVE DATA SUMMARY: 2D MEASUREMENTS: Normal Ranges: Ao Root d: 3.00 cm (2.0-3.7cm) LAs: 4.80 cm (2.7-4.0cm) RVIDd: 2.70 cm (0.9-3.6cm) IVSd: 1.50 cm (0.6-1.1cm) LVPWd: 1.00 cm (0.6-1.1cm) LVIDd: 5.30 cm (3.9-5.9cm) LVIDs: 3.70 cm LV Mass Index: 119.4 g/m2 LV % FS 30.2 % LV SYSTOLIC FUNCTION BY 2D PLANIMETRY (MOD): Normal Ranges: EF-A4C View: 76.9 % (>=55%) LV DIASTOLIC FUNCTION: Normal Ranges: MV Peak E: 1.29 m/s (0.7-1.2 m/s) MITRAL VALVE: Normal Ranges: MV Vmax: 1.22 m/s (<=1.3m/s) MV peak P.9 mmHg (<5mmHg) MV mean P.7 mmHg (<48mmHg) MITRAL INSUFFICIENCY: Normal Ranges: MR Vmax: 213.00 cm/s AORTIC VALVE: Normal Ranges: AoV Vmax: 1.40 m/s (<=1.7m/s) AoV Peak P.8 mmHg (<20mmHg) AoV Mean P.0 mmHg (1.7-11.5mmHg) LVOT Max Luca: 0.80 m/s (<=1.1m/s) AoV VTI: 25.90 cm (18-25cm) LVOT VTI: 16.40 cm LVOT Diameter: 2.10 cm (1.8-2.4cm) AoV Area, VTI: 2.19 cm2 (2.5-5.5cm2) AoV Area,Vmax: 1.99 cm2 (2.5-4.5cm2) AoV Dimensionless Index: 0.63 PULMONIC VALVE: Normal Ranges: PV Max Luca: 1.0 m/s (0.6-0.9m/s) PV Max P.1 mmHg [id number] Deanne Gaxiola MD Electronically signed on 07/02/2022 at 5:06:32 PM Final Normal [facility] XR lumbar spine AP/LAT/FLX/E XTon 04-26-2022 XR lumbar spine AP/LAT/FLX/EXT Normal [facility] XR lumbar spine AP/LAT/FLX/EXT [facility] [employer] Other XR lumbar spine AP/LAT/FLX/EXT [facility] [employer] Other XR lumbar spine AP/LAT/FLX/EXT [address] [place] [address] [employer] Other XR lumbar spine AP/LAT/FLX/EXT [place] [id number] [employer] Other XR lumbar spine AP/LAT/FLX/EXT XRay Report [employer] Other XR lumbar spine AP/LAT/FLX/EXT Signed [employer] Other XR lumbar spine AP/LAT/FLX/EXT Patient: Sandra Potter MR#: [id number] [employer] Other XR lumbar spine AP/LAT/FLX/EXT 357 [employer] Other XR lumbar spine AP/LAT/FLX/EXT : 1955 Acct:[id number] [employer] Other XR lumbar spine AP/LAT/FLX/EXT Age/Sex: 66 / M ADM Date: 04/26/22 [employer] Other XR lumbar spine AP/LAT/FLX/EXT Loc: [facility] Room: Type: REG I [employer] Other XR lumbar spine AP/LAT/FLX/EXT Attending Dr: Lavon Sandoval MD [employer] Other XR lumbar spine AP/LAT/FLX/EXT Copies to: Lavon Sandoval MD [employer] Other XR lumbar spine AP/LAT/FLX/EXT Ordering Provider: Lavon Sandoval MD [employer] Other XR lumbar spine AP/LAT/FLX/EXT Date of Service: 04/26/22 [employer] Other XR lumbar spine AP/LAT/FLX/EXT XR/XR lumbar spine AP/LAT/FLX/EXT: Osteoarthritis of lumbosacral spine [employer] Other XR lumbar spine AP/LAT/FLX/EXT without myelopathy [employer] Other XR lumbar spine AP/LAT/FLX/EXT XR lumbar spine AP/LAT/FLX/EXT 04/26/2022 10:27 AM [employer] Other XR lumbar spine AP/LAT/FLX/EXT SIGNS AND SYMPTOMS: Low back pain worse with flexion [employer] Other XR lumbar spine AP/LAT/FLX/EXT PROTOCOLS: Frontal, lateral, and flexion-extension views of the lumbar spine [employer] Other XR lumbar spine AP/LAT/FLX/EXT COMPARISON: None [employer] Other XR lumbar spine AP/LAT/FLX/EXT FINDINGS: [employer] Other XR lumbar spine AP/LAT/FLX/EXT There is a dextro convex curvature of the thoracolumbar spine. There is severe intervertebral disc [employer] Other XR lumbar spine AP/LAT/FLX/EXT height loss throughout the thoracolumbar spine sparing the L3-L4 and L4-L5 levels. Facet [employer] Other XR lumbar spine AP/LAT/FLX/EXT degenerative changes are present, greatest at L4-5. The sacrum and sacroiliac joints are normal. [employer] Other XR lumbar spine AP/LAT/FLX/EXT Atherosclerotic changes are noted in the abdominal aorta. [employer] Other XR lumbar spine AP/LAT/FLX/EXT XR/XR lumbar spine AP/LAT/FLX/EXT [employer] Other XR lumbar spine AP/LAT/FLX/EXT IMPRESSION: [employer] Other XR lumbar spine AP/LAT/FLX/EXT There is a dextro convex curvature of thoracolumbar spine with severe multilevel degenerative [employer] Other XR lumbar spine AP/LAT/FLX/EXT change. [employer] Other XR lumbar spine AP/LAT/FLX/EXT No fracture or subluxation. [employer] Other XR lumbar spine AP/LAT/FLX/EXT No pathologic movement on flexion or extension. [employer] Other XR lumbar spine AP/LAT/FLX/EXT Impression dictated by: Juliano Conteh M.D.04/26/2022 4:15 PM [employer] Other XR lumbar spine AP/LAT/FLX/EXT Dictation Location: [place] [address] [employer] Other XR lumbar spine AP/LAT/FLX/EXT Transcribed By: CHAPINCITO 04/26/22 [facility] [employer] Other XR lumbar spine AP/LAT/FLX/EXT Dictated By: Juliano Conteh II, MD 04/26/22 [facility] [employer] Other XR lumbar spine AP/LAT/FLX/EXT Signed By: [employer] Other XR lumbar spine AP/LAT/FLX/EXT 04/26/22 [facility] [employer] Other US arterial pvr rest Tayo US arterial pvr rest LE Normal [facility] Glucose Glucometer (BldC) [M ass/Vol]Ordered By: Arron Valverde on 04-03-2022 Glucose [Mass/Vol] 114 mg/dL [facility] Comment on above: Random Glucose Refer ence Range is dependent on time and content of last meal. Glucose of more than 200 mg/dL in a nonstressed, ambulatory subject supports the diagnosis of Diabetes Mellitus. A1C HEMOGLOBINon 04-02-2022 HbA1c (Bld) [Mass fraction] 6.7 % [employer] Other HbA1c (Bld) [Mass fraction]o n 04-02-2022 A1C HEMOGLOBIN Preo Other Albumin [Mass/volume] in Ser um or PlasmaOrdered By: Stephanie Burgess on 03-28-2022 Albumin [Mass/Vol] 3.9 g/dL 3.2-5.5 [facility] Basophils Auto (Bld) [#/Vol] Ordered By: Joana Farooq on 03-28-2022 Basophils (Bld) [#/Vol] 0.0 10*3/uL 0.0-0.2 [facility] Basophils/100 WBC Auto (Bld) Ordered By: Joana Farooq on 03-28-2022 Basophils/100 WBC (Bld) 0.4 % . [facility] Cholesterol [Mass/volume] in Serum or PlasmaOrdered By: Stephanie Burgess on 03-28-2022 Cholesterol [Mass/Vol] 147 mg/dL 140-200 [facility] Comment on above: Chol less than 200 m g/dl low riskChol 201-239 mg/dl borderline riskChol 240 mg/dl and greater high risk Cholesterol in LDL Calc [Mas s/Vol]Ordered By: Stephanie Burgess on 03-28-2022 Cholesterol in LDL [Mass/Vol] 85 mg/dL 0-100 [facility] Comment on above: LDL ATP III CLASSIFI CATIONLDL less than 100 mg/dL OptimalLDL 100-129 mg/dL Near or above optimalLDL 130-159 mg/dL Borderline highLDL 160-189 mg/dL HighLDL greater than 189 mg/dL Very high Cholesterol in VLDL Calc [Ma ss/Vol]Ordered By: Stephanie Burgess on 03-28-2022 Cholesterol in VLDL [Mass/Vol] 16 mg/dL [facility] Creatinine and Glomerular fi ltration rate.predicted panel (S/P/Bld)Ordered By: Stephanie Burgess on 03-28-2022 Creatinine [Mass/Vol] 1.34 mg/dL 0.64-1.27 [facility] Eosinophils Auto (Bld) [#/Vo l]Ordered By: Joana Farooq on 03-28-2022 Eosinophils (Bld) [#/Vol] 0.5 10*3/uL 0.0-0.45 [facility] Eosinophils/100 WBC Auto (Bl d)Ordered By: Joana Farooq on 03-28-2022 Eosinophils/100 WBC (Bld) 6.9 % . [facility] Erythrocyte distribution wid th Auto (RBC) [Ratio]Ordered By: Joana Farooq on 03-28-2022 Erythrocyte distribution width (RBC) [Ratio] 16.4 % 12.0-14.8 [facility] Estimated glomerular filtrat ion rate (GFR) non- AmericanOrdered By: Stephanie Burgess on 03-28-2022 GFR/1.73 sq M.predicted among non-blacks MDRD (S/P/Bld) [Vol rate/Area] 54 mL/Min [facility] Globulin Calc (S) [Mass/Vol] Ordered By: Stephanie Burgess on 03-28-2022 Globulin (S) [Mass/Vol] 3.0 g/dL [facility] Hematocrit Auto (Bld) [Volum e fraction]Ordered By: Joana Farooq on 03-28-2022 Hematocrit (Bld) [Volume fraction] 41.2 % 38.8-50.0 [facility] Hemoglobin [Mass/volume] in BloodOrdered By: Joana Farooq on 03-28-2022 Hemoglobin (Bld) [Mass/Vol] 13.1 g/dL 13.0-17.0 [facility] Laboratory - Chemistry and C hemistry - challengeon 03-28-2022 Cholesterol [Mass/Vol] 147\S\147 Normal 140-200 [facility] y 250 DO Work Phone: Comment on above: Chol less than 200 m g/dl low risk Chol 201-239 mg/dl borderline risk Chol 240 mg/dl and greater high risk Cholesterol in LDL [Mass/Vol] 85\S\85 Normal 0-100 [facility] y 250 DO Work Phone: Comment on above: LDL ATP III CLASSIFI CATION LDL less than 100 mg/dL Optimal LDL 100-129 mg/dL Near or above optimal LDL 130-159 mg/dL Borderline high LDL 160-189 mg/dL High LDL greater than 189 mg/dL Very high Leukocytes [#/volume] correc martin for nucleated erythrocytes in Blood by Automated counOrdered By: Joana Farooq on 03-28-2022 WBC corrected for nucl RBC Auto (Bld) [#/Vol] 6.7 10*3/uL 4.1-10.5 [facility] Lymphocytes Auto (Bld) [#/Vo l]Ordered By: Joana Farooq on 03-28-2022 Lymphocytes (Bld) [#/Vol] 0.9 10*3/uL 1.00-4.8 [facility] Lymphocytes/100 WBC Auto (Bl d)Ordered By: Joana Farooq on 03-28-2022 Lymphocytes/100 WBC (Bld) 13.0 % . [facility] MCH Auto (RBC) [Entitic mass ]Ordered By: Joana Farooq on 03-28-2022 MCH (RBC) [Entitic mass] 27.1 pg 27.5-35.2 [facility] MCHC Auto (RBC) [Mass/Vol]Or dered By: Joana Farooq on 03-28-2022 MCHC (RBC) [Mass/Vol] 31.7 g/dL 32.5-35.6 [facility] MCV Auto (RBC) [Entitic vol] Ordered By: Joana Farooq on 03-28-2022 MCV (RBC) [Entitic vol] 85.4 fL 83.5-101 [facility] Monocytes Auto (Bld) [#/Vol] Ordered By: Joana Farooq on 03-28-2022 Monocytes (Bld) [#/Vol] 0.8 10*3/uL 0.0-0.8 [facility] Monocytes/100 WBC Auto (Bld) Ordered By: Joana Farooq on 03-28-2022 Monocytes/100 WBC (Bld) 11.6 % . [facility] Neutrophils Auto (Bld) [#/Vo l]Ordered By: Joana Farooq on 03-28-2022 Neutrophils (Bld) [#/Vol] 4.6 10*3/uL 1.8-7.7 [facility] Neutrophils/100 WBC Auto (Bl d)Ordered By: Joana Farooq on 03-28-2022 Neutrophils/100 WBC (Bld) 68.1 % . [facility] No Panel Informationon 03-28 3.3\S\3.3 Normal <5.0 -[facility] [address] DO Work Phone: Comment on above: PERFORMED BY:[facility] [place], [place] [phone] MEDICAL DIRECTORAPRIL VEGA M.D. 16\S\16 Normal [facility] [address] DO Work Phone: 84\S\84 Normal 35-149 [facility] [address] DO Work Phone: Comment on above: TRIG ATP III CLASSIF ICATION TRIG less than 150 mg/dL Normal TRIG 150-199 mg/dL Borderline high TRIG 200-500 mg/dL High TRIG greater than 500 mg/dL Very high Standard traceable to the Center for Disease Conrtrol and Prevention (CDC) test method. 45\S\45 Normal 29-71 [facility] [address] DO Work Phone: Comment on above: HDL CHOL ATP-III CLA SSIFICATION Cardiovascular Risk HDL > or equal to 60 mg/dL LOW HDL < 40 mg/dL HIGH 6.9\S\6.9 Normal 6.1-7.9 [facility] [address] DO Work Phone: 10.5\S\10.5 above high threshold 8.2-10.2 [facility] [address] DO Work Phone: 13.1\S\13.1 Normal 6.0-15.0 [facility] [address] DO Work Phone: [phone] 26.6\S\26.6 Normal 22.0-30.0 [facility] [address] DO Work Phone: [phone] 101\S\101 Normal 95-114 [facility] [address] DO Work Phone: [phone] 4.7\S\4.7 Normal 3.5-5.1 [facility] [address] DO Work Phone: [phone] 18\S\18 Normal 10-60 [facility] [address] DO Work Phone: [phone] 24\S\24 above high threshold 9-23 [facility] 250 DO Work Phone: [phone] 0.7\S\0.7 Normal 0.3-1.2 [facility] [address] DO Work Phone: [phone] 1.3\S\1.3 Normal [facility] [address] DO Work Phone: [phone] 3.0\S\3.0 Normal [facility] [place] [address] DO Work Phone: [phone] 3.9\S\3.9 Normal 3.2-5.5 [facility] [address] DO Work Phone: [phone] 99\S\99 above high threshold 32-92 [facility] [address] [facility] Work Phone: [phone] Comment on above: PERFORMED BY:[place] [address] [address] [place], [place] [phone] MEDICAL DIRECTORAPRIL VEGA M.D. 136\S\136 Normal 136-146 [facility] [address] DO Work Phone: [phone] > 60 Normal [facility] [place] [address] DO Work Phone: [phone] Comment on above: GFR estimated refere nce range: According to KDOQI guidelines, <60 ml/min/1.73m2 is sufficient to diagnose a patient with chronic kidney disease. 54\S\54 Normal [facility] [place] [address] DO Work Phone: [phone] 1.34\S\1.34 above high threshold 0.64-1.27 [facility] [place] [place] [address] DO Work Phone: [phone] 133\S\133 above high threshold 70-100 [facility] [place] [address] DO Work Phone: [phone] Comment on above: Random Glucose Refer ence Range is dependent on time and content of last meal. Glucose of more than 200 mg/dL in a nonstressed, ambulatory subject supports the diagnosis of Diabetes Mellitus. ADA recommended reference range No Panel InformationOrdered By: W Aditya on 03-28-2022 Estimated GFR () > 60 mL/Min [facility] Comment on above: GFR estimated refere nce range: According to KDOQI guidelines, <60 ml/min/1.73m2 is sufficient to diagnose a patient with chronic kidney disease. Pharmacy Creatinine Clearance (Chem N/A [facility] Nucleated erythrocytes [Pres ence] in Blood by Automated countOrdered By: Joana Farooq on 03-28-2022 Nucleated RBC Auto Ql (Bld) 0.1 /100{WBC} 0-0.5 [facility] Platelet mean volume Auto (B ld) [Entitic vol]Ordered By: Joana Farooq on 03-28-2022 Platelet mean volume (Bld) [Entitic vol] 7.2 fL 6.6-10.1 [facility] Platelets Auto (Bld) [#/Vol] Ordered By: Joana Farooq on 03-28-2022 Platelets (Bld) [#/Vol] 207 10*3/uL 150-450 [facility] Protein [Mass/volume] in Ser um or PlasmaOrdered By: Stephanie Burgess on 03-28-2022 Protein [Mass/Vol] 6.9 g/dL 6.1-7.9 [facility] RBC Auto (Bld) [#/Vol]Ordere d By: Joana Farooq on 03-28-2022 RBC (Bld) [#/Vol] 4.83 10*6/uL 3.90-5.60 [facility] Serum or plasma alanine bartholomew otransferase measurement without P-5'-P (enzymatic activiOrdered By: Stephanie Burgess on 03-28-2022 ALT No additional P-5'-P [Catalytic activity/Vol] 18 U/L 10-60 [facility] Serum or plasma albumin/glob ulin mass ratioOrdered By: Stephanie Burgess on 03-28-2022 Albumin/Globulin [Mass ratio] 1.3 {ratio} [facility] Serum or plasma alkaline dorothea sphatase measurement (enzymatic activity/volume)Ordered By: Stephanie Burgess on 03-28-2022 ALP [Catalytic activity/Vol] 99 U/L 32-92 [facility] Serum or plasma anion gap de terminationOrdered By: Stephanie Burgess on 03-28-2022 Anion gap [Moles/Vol] 13.1 mmol/L 6.0-15.0 [facility] Serum or plasma aspartate am inotransferase measurement (enzymatic activity/volume)Ordered By: Stephanie Burgess on 03-28-2022 AST [Catalytic activity/Vol] 24 U/L 10-42 [facility] Serum or plasma calcium victor m urement (mass/volume)Ordered By: Stephanie Burgess on 03-28-2022 Calcium [Mass/Vol] 10.5 mg/dL 8.2-10.2 [facility] Serum or plasma chloride meenakshi surement (moles/volume)Ordered By: Stephanie Burgess on 03-28-2022 Chloride [Moles/Vol] 101 mmol/L 95-114 [facility] Serum or plasma glucose victor m urement (mass/volume)Ordered By: Stephanie Burgess on 03-28-2022 Glucose [Mass/Vol] 133 mg/dL 70-100 [facility] Comment on above: ADA recommended refe rence rangeRandom Glucose Reference Range is dependent on time and content of last meal. Glucose of more than 200 mg/dL in a nonstressed, ambulatory subject supports the diagnosis of Diabetes Mellitus. Serum or plasma high density lipoprotein (HDL) cholesterol measurementOrdered By: Stephanie Burgess on 03-28-2022 Cholesterol in HDL [Mass/Vol] 45 mg/dL 29-71 [facility] Comment on above: HDL CHOL ATP-III CLA SSIFICATION Cardiovascular RiskHDL > or equal to 60 mg/dL LOWHDL < 40 mg/dL HIGH Serum or plasma potassium me asurement (moles/volume)Ordered By: Stephanie Burgess on 03-28-2022 Potassium [Moles/Vol] 4.7 mmol/L 3.5-5.1 [facility] Serum or plasma sodium measu rement (moles/volume)Ordered By: Stephanie Burgess on 03-28-2022 Sodium [Moles/Vol] 136 mmol/L 136-146 [facility] Serum or plasma total biliru bin measurement (mass/volume)Ordered By: Stephanie Burgess on 03-28-2022 Bilirubin [Mass/Vol] 0.7 mg/dL 0.3-1.2 [facility] Serum or plasma total carbon dioxide measurement (moles/volume)Ordered By: Stephanie Burgess on 03-28-2022 CO2 [Moles/Vol] 26.6 mmol/L 22.0-30.0 [facility] Serum or plasma total choles terol/high density lipoprotein (HDL) cholesterol mass ratOrdered By: Stephanie Burgess on 03-28-2022 Cholesterol.total/Cho lesterol in HDL [Mass ratio] 3.3 {ratio} <5.0 [facility] Serum or plasma urea nitroge n measurement (mass/volume)Ordered By: Stephanie Burgess on 03-28-2022 Urea nitrogen [Mass/Vol] 24 mg/dL 9-23 [facility] Serum or plasma uric acid me asurement (mass/volume)Ordered By: Joana Farooq on 03-28-2022 Urate [Mass/Vol] 5.7 mg/dL 2.6-7.2 [facility] Triglyceride [Mass/volume] i n Serum or PlasmaOrdered By: Stephanie Burgess on 03-28-2022 Triglyceride [Mass/Vol] 84 mg/dL 35-149 [facility] Comment on above: TRIG ATP III CLASSIF ICATIONTRIG less than 150 mg/dL NormalTRIG 150-199 mg/dL Borderline highTRIG 200-500 mg/dL High TRIG greater than 500 mg/dL Very highStandard traceable to the Center for Disease Conrtrol and Prevention (CDC) test method. 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) Atherosclerosis of [place] coronary artery without angina pectoris (414.01) (I25.10) Status post angioplasty (V45.89) (Z98.62) Presence of Watchman left atrial appendage closure device (V45.09) (Z95.818) High risk medication use (V58.69) (Z79.899) Former smoker (V15.82) (Z87.891) Quit in 2006 Class 1 obesity with body mass index (BMI) of 33.0 to 33.9 in adult (278.00,V85.33) (E66.9,Z68.33) Orders Atherosclerosis of [place] coronary artery without angina pectoris, Diabetes mellitus Renew: Atenolol 25 MG Oral Tablet; TAKE 1/2 TABLET DAILY Class 1 obesity with body mass index (BMI) of 33.0 to 33.9 in adult Healthy Weight Tips; Status:Complete - Retrospective Authorization; Done: 25Jan2022 Some eating tips that can help you lose weight.; Status:Complete - Retrospective Authorization; Done: 25Jan2022 Essential hypertension, Hyperlipidemia Basic Metabolic Panel; Status:Active - Retrospective Authorization; Requested for:25Jan2022; Hyperlipidemia ALT - Alanine Aminotransferase, Serum; Status:Active - Retrospective Authorization; Requested for:25Jan2022; AST; Status:Active - Retrospective Authorization; Requested for:25Jan2022; Lipid Panel; Status:Active - Retrospective Authorization; Requested for:25Jan2022; Mild hypertrophic obstructive cardiomyopathy, Presence of Watchman left atrial appendage closure device Echocardiogram; Status:Hold For - Scheduling,Retrospective Authorization; Requested for:[id number]; SocHx: Former smoker Tobacco Use Screening; Status:Complete; Done: 25Jan2022 Patient Instructions Please bring all medicines, vitamins, and herbal supplements with you when you come to the office. Prescriptions will not be filled unless you are compliant with your follow up appointments or have a follow up appointment scheduled as per instruction of your physician. Refills should be requested at the time of your visit. Follow up in 6-8 months Chief Complaint SANDRA POTTER is being seen for a 6 month follow-up of. 66-year-old gentleman returns for follow-up and doing very well. He underwent tarsal metaphalangeal amputation for osteomyelitis this past year and is recovered very nicely. He has underlying history of ASHD, remote PCI LAD, hypertrophic cardiomyopathy with no symptoms currently. He has underlying chronic atrial fibrillation and is already undergone watchman device within the last year he is off his clopidogrel currently on aspirin he is not on anticoagulation. He has had no thromboembolic or bleeding episodes.. Comorbidities continue to include diabetes, obesity, controlled hypertension. He does have adverse reactions and allergy to UNBIA inhibitors. He remains on atenolol, atorvastatin, aspirin as his primary cardiac meds He has no complaints of angina, syncope, heart failure, hospitalizations or nitrate usage Recommendations, obtain appropriate laboratories and follow-up in 6 months Surgical History Problems History of Appendectomy History of Atrial appendage closure device insertion History of Atrial cardioversion History of Colon surgery History of Colonoscopy 16Jan2015 History of Gastric bypass surgery History of Hammer toe surgery History of Hernia repair History of Percutaneous transluminal coronary angioplasty History of Toe amputation Current Meds Medication NameInstruction Albuterol Sulfate HFA 108 (90 Base) MCG/ACT Inhalation Aerosol SolutionINHALE 1 TO 2 PUFFS EVERY 4 TO 6 HOURS NEEDED Allopurinol 300 MG Oral TabletTAKE 1 TABLET DAILY. Aspirin Adult Low Dose 81 MG Oral Tablet Delayed ReleaseTAKE 1 TABLET DAILY. Atenolol 25 MG Oral TabletTAKE 1/2 TABLET DAILY. Atorvastatin Calcium 20 MG Oral TabletTAKE 1 TABLET DAILY. Cyproheptadine HCl - 4 MG Oral TabletTAKE 0.5 TABLET Bedtime Fluticasone Propionate 50 MCG/ACT Nasal SuspensionINSTILL SQUIRT PRN Gabapentin 600 MG Oral TabletTake 2 tablets twice daily. glipiZIDE ER 2.5 MG Oral Tablet Extended Release 24 HourTAKE 1 TABLET TWICE DAILY DIRECTED. Magnesium Oxide 400 MG Oral TabletTAKE 1 TABLET TWICE DAILY. Nitroglycerin 0.4 MG Sublingual Tablet SublingualDISSOLVE 1 TABLET UNDER THE TONGUE NEEDED FOR CHEST PAIN- MAY REPEAT EVERY 5 MINUTES IF NEEDED (MAX 3 DOSES.- IF NO RELIEF CALL 911) Omeprazole 40 MG Oral Capsule Delayed ReleaseTake 1 capsule by mouth twice daily Potassium Chloride Monica ER 20 MEQ Oral Tablet Extended ReleaseTAKE 10 TABLETS BY MOUTH IN THE MORNING AND 8 TABLETS IN THE EVENING Stool Softener TABSTAKE 2TABLET DAILY DIRECTED. Synthroid 50 MCG Oral TabletTAKE 1 TABLET DAILY. tiZANidine HCl - 4 MG Oral TabletTAKE 1 TABLET 3 times daily traMADol HCl - 50 MG Oral TabletTAK (more content not included)... Normal [facility] Tobacco Screening.on 022 Tobacco use status [facility] b) No [facility] [address] DO Work Phone: Coding Summary.on 01-02-2022 Coding Summary. [id number] Gh0bWw +PGhlYWQ+IE9QWWGhK01xgBRet S1CG0zTEL1DWTKGAKQHXO0RQO1 niKO5QPycQ6FwxmBm FcdgpEWgSB93BHt9YYR0jWocNV ogtA9ctKQgS2r4ImCcOJ86jN30 HBrlFTVhWgW6IqQlnljmzRLb B3qpVnNnqBTrWak+PHRhYmxlIH yeQXNqSXhtMWJxHvEmhDokEZ5n Ec0tAURaEYJjmRuxpRKbRaXu z6wjZFVpQArvNZ1plEvxL2UgyP Q9ZFRbq7v4Wi72uIO+PHRkIHN0 aRasGAoer024WrOti1oyJWM0 hAQeIPemRZQ6Y21km4B7YSHqBP UjQXF9tIW2rA0esNnboacvZ7Hv kBJdZwM9JIO4xSKiyN2xwCua btamjJ4bFcv+J22EOB0TGMLVMR 3AEsl7O6EhZthvaSD+CS53NWCk IL20mYLryPVhw3qecZh2UxFh YKMqEYJ3lLrtAZirk3SkETDqW1 0iqGPgs2R5HEEzyXqirQBiKiDd tFS1nZ4iRRmcubhhz0tehtcp Oipdo7nwny11rA04Y92gPEsbSO VbLLC9QWAcTZLaaZtofo0lgH2t Ii8+OQxkm3orw4twlQf0OxHq DLWcbaRtxWojFPQ3p2DeHz51O5 BjpWdzu8HpVzu8rr24cEWef8B0 tYH2MRsjOQFbtH5aSUteNqD6 XJIhHcBuyP48aXIlXEmsOy9clZ pbqQskJX4cCRWbvuqvICYbvM6a MAYkxFVvqIfpEU8wKILaouml j800JzLrABC7FJXqcKVfR3JpwO 3fHhHjFANkGCVvD3IbtAZoDEel C073YRewLyI1YOJwkqEkJ3Co OTAfeTefBxO4d4J9Pv8Yo9Shjb gnQNQ7HEpeYCReQkL4YvZoTjJ9 J0GjPmc4OASyaCpmNK9cO0Rr GALazcwrrinnfRB3IFZvFGGorU 63qFNfTUneEy5rl6K1o445RNNb NJAsnM26Eu7npYqsRBUknDQF hG5yjfsld4wnqzgeGzWbZSLgPS r7CFs6SLKrtYcvHbZbLYB3OeE3 HPJ6xMYilM8lrTkocvpisF2f Oyc+X62wbP1oEUU8AJM3rcfhBE HttyCyDL70EP51H5KcFayfoRAm bGU+ESBuqpTyzUvdQS1bXoSs n2cbs7SpHGygP2HoDTWmPNqfIj f1ZISvKMQ2fQG2mI9cJZNrZUbb e2A8hRF4V6QtnrHmqj5rm6vx QCLzQBwtN81yuLQcc9X4OIYgwH Z8JGNcuIweYdZzgZ98Unc+PGNv kEnma1MhGnaqx8pfb4nplOn8 WxLlAMLqtxPdkAvrOIJ3n6XfQh 70I62vYCjcQZAuGAJgPXCzQFJt gTrubc9kbM8hFo8+PGNvbCB3 mCT5gZ0pHYVeUhN8XBjqT275Pz YpwBPkGqvkb5jpk5cksMx7LjTo IFDzfpQicEpoUAS8k0TkZk36 D06mBLqbBVRkWJInDMMdQJGwcA vrhe6vaV2wIk1+WW5gg9ohng81 fW78xHH+UFFzLIH2tAckAPor SZFseB4uWTikByP9SFLrQrRklZ 83mWBaIJemEe5aqQcwaAgfLQ1g ZWXjsjbrm881LeAlf7ffCOLc dXTeGIxyXVI6A87ez1I1ALIgWD KjEHS8dYE4uY2rmFnmvgrnyPDe lMvagaYahKtfPBysSHtyH845 IHRvcDsnPlBhdGllbnQgTmFtZT v2E1PiGlh0SHIzoUkoZI1xbSFa PEtlAi9skJwadFdsRE3vUTOu qmzbw280XoEow4ldBVXhbFMpJA otLDL7F78kv1N5UUXzYSOxVMC2 mXS3rL5psCikiuwfoUEvgWra gbVdxOrvAZrmIAvmH989QUBmmV jvDiRkdkJkVMCgmIX8TL50OW68 qWXro3U2cDX6U7EeVETqjypw smbdlNR5UIPgJYUejN00Ga6lxN aeMn2ePVMqBNB2QJWywAGqR1Ua uC7dFrEfDJXtNPVhO3WkqKVh FCxkM624JEmiChE8QUWxxlPmT8 AaFRBnnYmtQeO1l4Z2Pp3SF3B7 EY76NW24tEWim1W7xLD1W6Tv UGRihasjrpunvIZ8VKOeHVSuaN 96Uy8jdDayQy6lRKZsIJM8LAMb wVJkS1XgrZ7zNbUjSYSuRDUr U6QmwVFkGDxbV562ATsgIfO2SR XlkvBaZ6BoJWWmbOliQbE8k9S7 Rp1OECu3HA48AO91wSUkf7S9 hXZ2H1KqFKTsxulalopgjTN8AR QcIIWhpN64Kf5yqEjwHv4tJZQh MMI2FSIcnNOjQ0IjwO3eDyMg IYJhNBLiL1RqnTGzNXnwP694AR vxFoL8WOPovhDrI4QmDSUozSrj VtH7o2U3Wt4OLPGnFE64OXB8 dVZ9VH55JI98Q0BfHdfwnHSxiG U+PHRhYmxlIHdpZHRoPScxMDAl NnGhgRueZI9nPz7rVBWvQVNr kEpomOZkXqUrc6fhTBBsAPzzJY 0vlPvqX2CxlJN7FAWyl3w6Yc19 S62yL1SltEM+CGMjpSN2zHT5 nD5aXsSmAzH7NNbwY326JxUcdQ PkGfima9nvr0oynMs7GdV1KPJz qeZjcAgxMPP4x9XwWx64K74e IHdpZHRoPSIxNSUiIHZhbGlnbj 6hhZ6pFn6+KIRslIY1sQX0xG2p CdMxXfO1ESjtV335JrBhzZOv Ghgrw7boc1uptNi4RmZpMDNlcj ZsyRqiYIZ4l3NvRk04S4CzgOhi c8AaMhp5kr16aGWdp8R7uRN4 R4HwUXOwzsnilFQrsDhiXX2hRY ZdzqncKTHbhG9nWYLoI7m2BrBq PdX8HEkkV1VtpkX2LGWnoXHm XYgyKOU5G50st5T4OJOeLUErLU R6zXT8aH7tpVdvtvrbgWLlwXtf buWbhQsqFCklUIorM149OTEq kKxoLKLagH7lICEzrHGhwHziXD 2pMCJzyumeLrPLPNOGZEVSET04 V7YeXbs8CFUehLbgBO7qmYXb MGiwXl7zoNjcqIsuSY6bXMIajw alKIAzfM7nSOImpEXwkXqqXC2m VZHgmbijw174BuGhYBD9KPTe zUKaL9KuaU2eStGbKHYmTABkZ6 HqyPYtAJzoX425KGegTjZ7IRUl ktIdK6DsEBXzoJavKqE1k5S7 Lu8lAH6bCB6rZDE0PD18UF62wC Ivr8W5zWN2X4EbUIMkpfusbqcm gCS0GEGmXIVjvE95yAMnQDms Eo0hc8U5m199LKWkSVFjiC08Wg 2lqVknMKPamODGuP9ijxelx4zs wuesMdBcFNDjCMx8KCg2JJAd dLcpSbKqPKC3UsN3MEU9qYCokA 5tgLhrcjpqvM1qFqx+NjQgWWVh ueI0C0GiXps6YYLqfXpgAG7m gXGbJOnoSi8xpDomxKdfJZ7aWT VbbsjwRNHgnT7dRXNqcDWhhIbn ZH5eRDBonmupz047BjJjLKO7 YLFlsBOdA0DyxC2aLhIhURPvXJ IfX2KdqRLzGBinD529GNhjAqW7 KBThocEvD1ElWWMyuMudHrX4 o6R7Gr1QDVkwXB48OF04hHPan5 H9bPR0T0CxHHYhwdthesnzlJD7 MFUcJYRmmO67aUJnDHadNv5e i9T7x249ABCeYBBeyH14Wp6eeE opHVXdnFSYgP7difdwk8ubtyht JzJbCXZiAWf4TSd7UJWtjDha UvWgEKR5UlB6ZOR4eEAedZ8lyL tnzdyvjR3aMlm+ZTZaQIThb8Xr l2CoZY21CE45X9QqMwfatNCz bGU+PHRhYmxlIHdpZHRoPScxMD CgSoTktDbsOV1nSd0yQFHrMFOy mNqbaYLxBsVsm8ftFBYiEYzc RN3xbQcrX2IpzZJ1MVYco0p3Bp 80X26zI5DrcBT+WHNqzMD9cSS5 qW3fIiMpKmZ7WKpuV637YnXj mZYxXglrx6riw2hniYu2PkGxJE SmgrSowOeeBLQ8y3ZdMg90F71q IHdpZHRoPSIyMCUiIHZhbGln lz5vgF9rUd3+XXFwlJB7iBR2zT 2tOoJxLfT7QLwoF724YtEkuHLb VrtjW65zO5RlyGD+PHRyPjx0 VJKtyUvnCC0meJFrTGobXi6kQM C5AhRuDuGdJBmgI8BsDNIticuc losfeSE0NLTzHNOfcH30Vg6k pJzyPp8cBNRkHRB7UGJjoWNeO6 VkiF8dWoJjZKVqRCTpG8IjgXZf JRiaQ086CZrbFlE9GNUpezAl E0DzWNXpcSgnFuZ7n7B6Hr0ArB abwOLlZO9oRdLiEHz9L7OgHko5 VNBugSytNG4jiWJrFUqsSx4u qIluoHsgSU8rTVTjgepev631Kb Wiv0kaZIKemLXuDEapULU0S95q v0J6ZJGpKCCzTLL8kYM6bQ9y bGlnbjogbGVmdDsgdmVydGljYW zbZSkpK699LKPyrYacWgPZGwj8 O1MbKrg9NXKmhSfxDE5sjPSv OQbpZn1bjEkuqXhgGI0nOZAqpm dpc135XpCty6pmXQWwaTKrVLfb ZZE2Z56qr6K8CLEwDZJkRAW7 cFO8bK9uzPlxzydscLZgyWxujm RzePrxFAxqIIluM938MDXtyOdy Xk4NAck1I6CnXel1UWTngAth KA4qfRIgYRobPd7ifWmerAmsUF 4fPKRqrqzrg327QhCmz7gpPMKc yKCzZTkiLGA4F41ww1G8EVPy JHNsQSP6zKT2mR1rdZwsobbslS GyoVwkffVjhJkoORwmNXezA766 IHRvcDsnPlBheWVyOjwvdGQ+ WS34uf93T5LaKwqeDmf4PIUwUH F5qPM4iJ8yGBYgJFclh0L3oDB4 W9VzocFqfb1bs7jeRJNkCPcr Y29s (more content not included)... Normal [facility] Physician Orderon 12-27-2021 Physician Order [id number] Normal [facility] A1C HEMOGLOBINon 12-15-2021 HbA1c (Bld) [Mass fraction] 6.4 % Fuzz Other HbA1c (Bld) [Mass fraction]o n 12-15-2021 [facility] B[facility] identified Aer cx N om (Unsp spec)Ordered By: ALEX Begum on 12-13-2021 Superficial Wound Culture Staphylococcus aureus [facility] Basophils Auto (Bld) [#/Vol] Ordered By: Teri Ybarra on 12-05-2021 Basophils (Bld) [#/Vol] 0.1 10*3/uL 0.0-0.2 [facility] Basophils/100 WBC Auto (Bld) Ordered By: Teri Ybarra on 12-05-2021 Basophils/100 WBC (Bld) 0.8 % . [facility] Blood hemoglobin measurement (mass/volume)Ordered By: Teri Ybarra on 12-05-2021 Hemoglobin (Bld) [Mass/Vol] 13.7 g/dL 13.0-17.0 [facility] Blood leukocytes automated c ount (number/volume)Ordered By: Teri Ybarra on 12-05-2021 WBC (Bld) [#/Vol] 7.5 10*3/uL 4.5-11.0 [facility] Body fluid albumin measureme nt (mass/volume)Ordered By: Teri Ybarra on 12-05-2021 Albumin (Body fld) [Mass/Vol] 4.0 g/dL 3.2-5.5 [facility] Creatinine and Glomerular fi ltration rate.predicted panel (S/P/Bld)Ordered By: Teri Ybarra on 12-05-2021 Creatinine [Mass/Vol] 1.28 mg/dL 0.64-1.27 [facility] Eosinophils Auto (Bld) [#/Vo l]Ordered By: Teri Ybarra on 12-05-2021 Eosinophils (Bld) [#/Vol] 0.4 10*3/uL 0.0-0.45 [facility] Eosinophils/100 WBC Auto (Bl d)Ordered By: Teri Ybarra on 12-05-2021 Eosinophils/100 WBC (Bld) 5.1 % . [facility] Erythrocyte distribution wid th Auto (RBC) [Ratio]Ordered By: Teri Ybarra on 12-05-2021 Erythrocyte distribution width (RBC) [Ratio] 15.6 % 12.0-14.8 [facility] Estimated glomerular filtrat ion rate (GFR) non- AmericanOrdered By: Teri Ybarra on 12-05-2021 GFR/1.73 sq M.predicted among non-blacks MDRD (S/P/Bld) [Vol rate/Area] 57 mL/Min [facility] Globulin Calc (S) [Mass/Vol] Ordered By: Teri Ybarra on 12-05-2021 Globulin (S) [Mass/Vol] 3.0 g/dL [facility] Hematocrit Auto (Bld) [Volum e fraction]Ordered By: Teri Ybarra on 12-05-2021 Hematocrit (Bld) [Volume fraction] 42.1 % 38.8-50.0 [facility] Laboratory - Hematology and Cell countsOrdered By: Teri Ybarra on 12-05-2021 Nucleated RBC/100 WBC (Bld) [Ratio] 0.0 % 0-0.5 [facility] Lymphocytes Auto (Bld) [#/Vo l]Ordered By: Teri Ybarra on 12-05-2021 Lymphocytes (Bld) [#/Vol] 1.1 10*3/uL 1.00-4.8 [facility] Lymphocytes/100 WBC Auto (Bl d)Ordered By: Teri Ybarra on 12-05-2021 Lymphocytes/100 WBC (Bld) 14.5 % . [facility] MCH Auto (RBC) [Entitic mass ]Ordered By: Teri Ybarra on 12-05-2021 MCH (RBC) [Entitic mass] 28.3 pg 27.5-35.2 [facility] MCHC Auto (RBC) [Mass/Vol]Or dered By: Teri Ybarra on 12-05-2021 MCHC (RBC) [Mass/Vol] 32.5 g/dL 32.5-35.6 [facility] MCV Auto (RBC) [Entitic vol] Ordered By: Teri Ybarra on 12-05-2021 MCV (RBC) [Entitic vol] 87.0 fL 83.5-101 [facility] Monocytes Auto (Bld) [#/Vol] Ordered By: Teri Ybarra on 12-05-2021 Monocytes (Bld) [#/Vol] 0.9 10*3/uL 0.0-0.8 [facility] Monocytes/100 WBC Auto (Bld) Ordered By: Teri Ybarra on 12-05-2021 Monocytes/100 WBC (Bld) 11.3 % . [facility] Neutrophils Auto (Bld) [#/Vo l]Ordered By: Teri Ybarra on 12-05-2021 Neutrophils (Bld) [#/Vol] 5.1 10*3/uL 1.8-7.7 [facility] Neutrophils/100 WBC Auto (Bl d)Ordered By: Teri Ybarra on 12-05-2021 Neutrophils/100 WBC (Bld) 68.3 % . [facility] No Panel InformationOrdered By: Teri Ybarra on 12-05-2021 Estimated GFR () > 60 mL/Min [facility] Comment on above: GFR estimated refere nce range: According to KDOQI guidelines, <60 ml/min/1.73m2 is sufficient to diagnose a patient with chronic kidney disease. Pharmacy Creatinine Clearance (Chem N/A [facility] Platelet mean volume Auto (B ld) [Entitic vol]Ordered By: Teri Ybarra on 12-05-2021 Platelet mean volume (Bld) [Entitic vol] 7.4 fL 6.6-10.1 [facility] Platelets Auto (Bld) [#/Vol] Ordered By: Teri Ybarra on 12-05-2021 Platelets (Bld) [#/Vol] 268 10*3/uL 150-450 [facility] Protein [Mass/volume] in Ser um or PlasmaOrdered By: Teri Ybarra on 12-05-2021 Protein [Mass/Vol] 7.0 g/dL 6.1-7.9 [facility] RBC Auto (Bld) [#/Vol]Ordere d By: Teri Ybarra on 12-05-2021 RBC (Bld) [#/Vol] 4.84 10*6/uL 3.90-5.60 [facility] Serum or plasma alanine bartholomew otransferase measurement without P-5'-P (enzymatic activiOrdered By: Teri Ybarra on 12-05-2021 ALT No additional P-5'-P [Catalytic activity/Vol] 21 U/L 10-60 [facility] Serum or plasma albumin/glob ulin mass ratioOrdered By: Teri Ybarra on 12-05-2021 Albumin/Globulin [Mass ratio] 1.3 {ratio} [facility] Serum or plasma alkaline dorothea sphatase measurement (enzymatic activity/volume)Ordered By: Teri Ybarra on 12-05-2021 ALP [Catalytic activity/Vol] 94 U/L 32-92 [facility] Serum or plasma anion gap de terminationOrdered By: Teri Ybarra on 12-05-2021 Anion gap [Moles/Vol] 11.9 mmol/L 6.0-15.0 [facility] Serum or plasma aspartate am inotransferase measurement (enzymatic activity/volume)Ordered By: Teri Ybarra on 12-05-2021 AST [Catalytic activity/Vol] 29 U/L 10-42 [facility] Serum or plasma calcium victor m urement (mass/volume)Ordered By: Teri Ybarra on 12-05-2021 Calcium [Mass/Vol] 10.4 mg/dL 8.2-10.2 [facility] Serum or plasma chloride meenakshi surement (moles/volume)Ordered By: Teri Ybarra on 12-05-2021 Chloride [Moles/Vol] 102 mmol/L 95-114 [facility] Serum or plasma glucose victor m urement (mass/volume)Ordered By: Teri Ybarra on 12-05-2021 Glucose [Mass/Vol] 116 mg/dL 70-100 [facility] Comment on above: ADA recommended refe rence range Random Glucose Reference Range is dependent on time and content of last meal. Glucose of more than 200 mg/dL in a nonstressed, ambulatory subject supports the diagnosis of Diabetes Mellitus. ADA recommended refe rence rangeRandom Glucose Reference Range is dependent on time and content of last meal. Glucose of more than 200 mg/dL in a nonstressed, ambulatory subject supports the diagnosis of Diabetes Mellitus. Serum or plasma potassium me asurement (moles/volume)Ordered By: Teri Ybarra on 12-05-2021 Potassium [Moles/Vol] 3.6 mmol/L 3.5-5.1 [facility] Serum or plasma sodium measu rement (moles/volume)Ordered By: Teri Ybarra on 12-05-2021 Sodium [Moles/Vol] 138 mmol/L 136-146 [facility] Serum or plasma total biliru bin measurement (mass/volume)Ordered By: Teri Ybarra on 12-05-2021 Bilirubin [Mass/Vol] 0.7 mg/dL 0.3-1.2 [facility] Serum or plasma total carbon dioxide measurement (moles/volume)Ordered By: Teri Ybarra on 12-05-2021 CO2 [Moles/Vol] 27.7 mmol/L 22.0-30.0 [facility] Serum or plasma urea nitroge n measurement (mass/volume)Ordered By: Teri Ybarra on 12-05-2021 Urea nitrogen [Mass/Vol] 34 mg/dL 9- [facility] Physical Therapy Noteon 11-16 Physical Therapy Note [id number] Bacteria identified Aer cx N om (Unsp spec)Ordered By: Estee Han on 11-10-2021 Superficial Wound Culture Staphylococcus aureus [facility] Basophils Auto (Bld) [#/Vol] Ordered By: Sandra Danielson on 11-09-2021 Basophils (Bld) [#/Vol] 0.1 10*3/uL 0.0-0.2 [facility] Basophils/100 WBC Auto (Bld) Ordered By: Sandra Danielson on 11-09-2021 Basophils/100 WBC (Bld) 0.9 % . [facility] Blood hemoglobin measurement (mass/volume)Ordered By: Sandra Danielson on 11-09-2021 Hemoglobin (Bld) [Mass/Vol] 13.6 g/dL 13.0-17.0 [facility] Blood leukocytes automated c ount (number/volume)Ordered By: Sandra Danielson on 11-09-2021 WBC (Bld) [#/Vol] 6.4 10*3/uL 4.5-11.0 [facility] Body fluid albumin measureme nt (mass/volume)Ordered By: Geeta Dumont on 11-09-2021 Albumin (Body fld) [Mass/Vol] 3.9 g/dL 3.2-5.5 [facility] Creatinine and Glomerular fi ltration rate.predicted panel (S/P/Bld)Ordered By: Geeta Dumont on 11-09-2021 Creatinine [Mass/Vol] 1.22 mg/dL 0.64-1.27 [facility] Eosinophils Auto (Bld) [#/Vo l]Ordered By: Sandra Danielson on 11-09-2021 Eosinophils (Bld) [#/Vol] 0.5 10*3/uL 0.0-0.45 [facility] Eosinophils/100 WBC Auto (Bl d)Ordered By: Sandra Danielson on 11-09-2021 Eosinophils/100 WBC (Bld) 7.6 % . [facility] Erythrocyte distribution wid th Auto (RBC) [Ratio]Ordered By: Sandra Danielson on 11-09-2021 Erythrocyte distribution width (RBC) [Ratio] 16.2 % 12.0-14.8 [facility] Estimated glomerular filtrat ion rate (GFR) non- AmericanOrdered By: Geeta Dumont on 11-09-2021 GFR/1.73 sq M.predicted among non-blacks MDRD (S/P/Bld) [Vol rate/Area] 60 mL/Min [facility] Globulin Calc (S) [Mass/Vol] Ordered By: Geeta Dumont on 11-09-2021 Globulin (S) [Mass/Vol] 3.2 g/dL [facility] Hematocrit Auto (Bld) [Volum e fraction]Ordered By: Sandra Danielson on 11-09-2021 Hematocrit (Bld) [Volume fraction] 42.3 % 38.8-50.0 [facility] Laboratory - Hematology and Cell countsOrdered By: Sandra Danielson on 11-09-2021 Nucleated RBC/100 WBC (Bld) [Ratio] 0.1 % 0-0.5 [facility] Lactate dehydrogenase measur ement (enzymatic activity/volume)Ordered By: Sandra Danielson on 11-09-2021 LDH (Unsp spec) [Catalytic activity/Vol] 186 U/L 45-190 [facility] Lymphocytes Auto (Bld) [#/Vo l]Ordered By: Sandra Danielson on 11-09-2021 Lymphocytes (Bld) [#/Vol] 1.0 10*3/uL 1.00-4.8 [facility] Lymphocytes/100 WBC Auto (Bl d)Ordered By: Sandra Danielson on 11-09-2021 Lymphocytes/100 WBC (Bld) 15.5 % . [facility] MCH Auto (RBC) [Entitic mass ]Ordered By: Sandra Danielson on 11-09-2021 MCH (RBC) [Entitic mass] 28.0 pg 27.5-35.2 [facility] MCHC Auto (RBC) [Mass/Vol]Or dered By: Sandra Danielson on 11-09-2021 MCHC (RBC) [Mass/Vol] 32.0 g/dL 32.5-35.6 [facility] MCV Auto (RBC) [Entitic vol] Ordered By: Sandra Danielson on 11-09-2021 MCV (RBC) [Entitic vol] 87.3 fL 83.5-101 [facility] Monocytes Auto (Bld) [#/Vol] Ordered By: Sandra Danielson on 11-09-2021 Monocytes (Bld) [#/Vol] 0.8 10*3/uL 0.0-0.8 [facility] Monocytes/100 WBC Auto (Bld) Ordered By: Sandra Danielson on 11-09-2021 Monocytes/100 WBC (Bld) 12.3 % . [facility] Neutrophils Auto (Bld) [#/Vo l]Ordered By: Sandra Danielson on 11-09-2021 Neutrophils (Bld) [#/Vol] 4.1 10*3/uL 1.8-7.7 [facility] Neutrophils/100 WBC Auto (Bl d)Ordered By: Sandra Danielson on 11-09-2021 Neutrophils/100 WBC (Bld) 63.7 % . [facility] No Panel InformationOrdered By: Geeta Dumont on 11-09-2021 Estimated GFR () > 60 mL/Min [facility] Comment on above: GFR estimated refere nce range: According to KDOQI guidelines, <60 ml/min/1.73m2 is sufficient to diagnose a patient with chronic kidney disease. Pharmacy Creatinine Clearance (Chem 78.67 [facility] Platelet mean volume Auto (B ld) [Entitic vol]Ordered By: Sandra Danielson on 11-09-2021 Platelet mean volume (Bld) [Entitic vol] 7.1 fL 6.6-10.1 [facility] Platelets Auto (Bld) [#/Vol] Ordered By: Sandra Danielson on 11-09-2021 Platelets (Bld) [#/Vol] 260 10*3/uL 150-450 [facility] Protein [Mass/volume] in Ser um or PlasmaOrdered By: Geeta Dumont on 11-09-2021 Protein [Mass/Vol] 7.1 g/dL 6.1-7.9 [facility] RBC Auto (Bld) [#/Vol]Ordere d By: Sandra Danielson on 11-09-2021 RBC (Bld) [#/Vol] 4.85 10*6/uL 3.90-5.60 [facility] Serum or plasma alanine bartholomew otransferase measurement without P-5'-P (enzymatic activiOrdered By: Geeta Dumont on 11-09-2021 ALT No additional P-5'-P [Catalytic activity/Vol] 16 U/L 10-60 [facility] Serum or plasma albumin/glob ulin mass ratioOrdered By: Geeta Dumont on 11-09-2021 Albumin/Globulin [Mass ratio] 1.2 {ratio} [facility] Serum or plasma alkaline dorothea sphatase measurement (enzymatic activity/volume)Ordered By: Geeta Dumont on 11-09-2021 ALP [Catalytic activity/Vol] 103 U/L 32-92 [facility] Serum or plasma aspartate am inotransferase measurement (enzymatic activity/volume)Ordered By: Geeta Dumont on 11-09-2021 AST [Catalytic activity/Vol] 22 U/L 10-42 [facility] Serum or plasma calcium victor m urement (mass/volume)Ordered By: Geeta Dumont on 11-09-2021 Calcium [Mass/Vol] 10.7 mg/dL 8.2-10.2 [facility] Serum or plasma chloride meenakshi surement (moles/volume)Ordered By: Geeta Dumont on 11-09-2021 Chloride [Moles/Vol] 101 mmol/L 95-114 [facility] Serum or plasma glucose victor m urement (mass/volume)Ordered By: Geeta Dumont on 11-09-2021 Glucose [Mass/Vol] 98 mg/dL 70-100 [facility] Comment on above: ADA recommended refe rence range Random Glucose Reference Range is dependent on time and content of last meal. Glucose of more than 200 mg/dL in a nonstressed, ambulatory subject supports the diagnosis of Diabetes Mellitus. ADA recommended refe rence rangeRandom Glucose Reference Range is dependent on time and content of last meal. Glucose of more than 200 mg/dL in a nonstressed, ambulatory subject supports the diagnosis of Diabetes Mellitus. Serum or plasma potassium me asurement (moles/volume)Ordered By: Geeta Dumont on 11-09-2021 Potassium [Moles/Vol] 4.5 mmol/L 3.5-5.1 [facility] Serum or plasma sodium measu rement (moles/volume)Ordered By: Geeta Dumont on 11-09-2021 Sodium [Moles/Vol] 137 mmol/L 136-146 [facility] Serum or plasma total biliru bin measurement (mass/volume)Ordered By: Geeta Dumont on 11-09-2021 Bilirubin [Mass/Vol] 0.6 mg/dL 0.3-1.2 [facility] Serum or plasma total carbon dioxide measurement (moles/volume)Ordered By: Geeta Dumont on 11-09-2021 CO2 [Moles/Vol] 29.2 mmol/L 22.0-30.0 [facility] Serum or plasma urea nitroge n measurement (mass/volume)Ordered By: Geeta Dumont on 11-09-2021 Urea nitrogen [Mass/Vol] 25 mg/dL 9- [facility] Basic Metabolic Profon 10-27 (cont.) Normal [facility] Comment on above: Result Comment: Aver age GFR for 60-69 years old: 85 mL/min/1.73sq m Chronic Kidney Disease: <60 mL/min/1.73sq m Kidney failure: <15 mL/min/1.73sq m eGFR calculated using average adult body mass. Additional eGFR calculator available at: http://www.[employer]/multiple_crcl_2012.htm Performed By: #### G LYHGB, IOCAL #### [facility] [address] [place] [address] Hotel Assistant Manager: Chi Layne MD #### BMP, CBC #### [facility] [address] [place] [address] Hotel Assistant Manager: Russell Sanchez MD Anion gap [Moles/Vol] 8 mmol/L Low 9-17 [facility] Comment on above: Performed By: #### G LYHGB, IOCAL #### [address] [address] Hotel Assistant Manager: Chi Layne MD #### BMP, CBC #### [facility] [address] [place] [address] Hotel Assistant Manager: Russell Sanchez MD BUN/CRE Ratio 20 Normal 9-20 [facility] Comment on above: Performed By: #### G LYHGB, IOCAL #### [address] [address] Hotel Assistant Manager: Chi Layne MD #### BMP, CBC #### [facility] [address] [place] [address] Hotel Assistant Manager: Russell Sanchez MD Calcium [Mass/Vol] 10.8 mg/dL High 8.6-10.4 [facility] Comment on above: Performed By: #### G LYHGB, IOCAL #### [address] [address] Hotel Assistant Manager: Chi Layne MD #### BMP, CBC #### [facility] [address] [place] [address] Hotel Assistant Manager: Russell Sanchez MD Chloride [Moles/Vol] 102 mmol/L Normal 98-[address] [facility] Comment on above: Performed By: #### G LYHGB, IOCAL #### [address] [address] Hotel Assistant Manager: Chi Layne MD #### BMP, CBC #### [facility] [address] [place] [address] Hotel Assistant Manager: Russell Sanchez MD CO2 [Moles/Vol] 32 mmol/L High 20-31 [facility] Comment on above: Performed By: #### G LYHGB, IOCAL #### [address] [address] Hotel Assistant Manager: Chi Layne MD #### BMP, CBC #### [facility] [place] [address] Hotel Assistant Manager: Russell Sanchez MD Creatinine [Mass/Vol] 1.20 mg/dL Normal 0.70-1.20 [facility] Comment on above: Performed By: #### G LYHGB, IOCAL #### [address] [address] Hotel Assistant Manager: Chi Layne MD #### BMP, CBC #### [facility] [address] [place] [address] Hotel Assistant Manager: Russell Sanchez MD GFR, Amer >60 Normal >60 [facility] Comment on above: Performed By: #### G LYHGB, IOCAL #### [address] [address] Hotel Assistant Manager: Chi Layne MD #### BMP, CBC #### [facility] [address] [place] [address] Hotel Assistant Manager: Russell Sanchez MD GFR,non Amer >60 Normal >[address] [facility] Comment on above: Performed By: #### G LYHGB, IOCAL #### [address] [address] Hotel Assistant Manager: Chi Layne MD #### BMP, CBC #### [facility] [address] [place] [address] Hotel Assistant Manager: Russell Sanchez MD Glucose [Mass/Vol] 85 mg/dL Normal 70-99 [facility] Comment on above: Performed By: #### G LYHGB, IOCAL #### [address] [address] Hotel Assistant Manager: Chi Layne MD #### BMP, CBC #### [facility] [address] [place] [address] Hotel Assistant Manager: Russell Sanchez MD Potassium [Moles/Vol] 3.7 mmol/L Normal 3.7-5.3 [facility] Comment on above: Performed By: #### G LYHGB, IOCAL #### [address] [address] Hotel Assistant Manager: Chi Layne MD #### BMP, CBC #### [facility] [address] [place] [address] Hotel Assistant Manager: Russell Sanchez MD Sodium [Moles/Vol] 142 mmol/L Normal 135-144 [facility] Comment on above: Performed By: #### G LYHGB, IOCAL #### [address] [address] Hotel Assistant Manager: Chi Layne MD #### BMP, CBC #### [facility] [address] [place] [address] Hotel Assistant Manager: Russell Sanchez MD Urea nitrogen [Mass/Vol] 24 mg/dL High 8-23 [facility] Comment on above: Performed By: #### G LYHGB, IOCAL #### [address] [address] Hotel Assistant Manager: Chi Layne MD #### BMP, CBC #### [facility] [address] [place] [address] Hotel Assistant Manager: Russell Sanchez MD CBCon 10-27-2021 Erythrocyte distribution width (RBC) [Ratio] 15.0 % High 11.8-14.4 [facility] Comment on above: Performed By: #### G LYHGB, IOCAL #### [address] [address] Hotel Assistant Manager: Chi Layne MD #### BMP, CBC #### [facility] [address] [place] [id number] Hotel Assistant Manager: Russell Sanchez MD Hematocrit (Bld) [Volume fraction] 42.6 % Normal 40.7-50.3 [facility] Comment on above: Performed By: #### G LYHGB, IOCAL #### [address] [address] Hotel Assistant Manager: Chi Layne MD #### BMP, CBC #### [facility] [address] [place] [address] Hotel Assistant Manager: Russell Sanchez MD Hemoglobin (Bld) [Mass/Vol] 13.6 g/dL Normal 13.0-17.0 [facility] Comment on above: Performed By: #### G LYHGB, IOCAL #### [address] [address] Hotel Assistant Manager: Chi Layne MD #### BMP, CBC #### [facility] [address] [place] [address] Hotel Assistant Manager: Russell Sanchez MD MCH (RBC) [Entitic mass] 28.4 pg Normal 25.2-33.5 [facility] Comment on above: Performed By: #### G LYHGB, IOCAL #### [address] [address] Hotel Assistant Manager: Chi Layne MD #### BMP, CBC #### [facility] [address] [place] [address] Hotel Assistant Manager: Russell Sanchez MD MCHC (RBC) [Mass/Vol] 31.9 g/dL Normal 28.4-34.8 [facility] Comment on above: Performed By: #### G LYHGB, IOCAL #### [address] [address] Hotel Assistant Manager: Chi Layne MD #### BMP, CBC #### [facility] [address] [place] [address] Hotel Assistant Manager: Russell Sanchez MD MCV (RBC) [Entitic vol] 88.9 fL Normal 82.6-102.9 [facility] Comment on above: Performed By: #### G LYHGB, IOCAL #### [address] [address] Hotel Assistant Manager: Chi Layne MD #### BMP, CBC #### [facility] [address] [place] [address] Hotel Assistant Manager: Russell Sanchez MD NRBC Automated 0.0 per 100 WBC Normal 0.0 [facility] Comment on above: Performed By: #### G LYHGB, IOCAL #### [address] [address] Hotel Assistant Manager: Chi Layne MD #### BMP, CBC #### [facility] [address] [place] [address] Hotel Assistant Manager: Russell Sanchez MD Platelet mean volume (Bld) [Entitic vol] 9.2 fL Normal 8.1-13.5 [facility] Comment on above: Performed By: #### G LYHGB, IOCAL #### [address] [address] Hotel Assistant Manager: Chi Layne MD #### BMP, CBC #### [facility] [address] [place] [address] Hotel Assistant Manager: Russell Sanchez MD Platelets (Bld) [#/Vol] 203 10*3/uL Normal 138-453 [facility] Comment on above: Performed By: #### G LYHGB, IOCAL #### [address] [address] Hotel Assistant Manager: Chi Layne MD #### BMP, CBC #### [facility] [address] [place] [address] Hotel Assistant Manager: Russell Sanchez MD RBC (Bld) [#/Vol] 4.79 10*6/uL Normal 4.21-5.77 [facility] Comment on above: Performed By: #### G LYHGB, IOCAL #### [address] [address] Hotel Assistant Manager: Chi Layne MD #### BMP, CBC #### [facility] [address] [place] [address] Hotel Assistant Manager: Russell Sanchez MD WBC (Bld) [#/Vol] 5.8 10*3/uL Normal 3.5-11.3 [facility] Comment on above: Performed By: #### G LYHGB, IOCAL #### [address] [address] Hotel Assistant Manager: Chi Layne MD #### BMP, CBC #### [facility] [address] [place] [address] Hotel Assistant Manager: Russell Sanchez MD Calcium, Ionicon 10-27-2021 Calcium [Moles/Vol] 1.44 mmol/L High 1.13-1.[address] [facility] Comment on above: Performed By: #### G LYHGB, IOCAL #### [address] [address] Hotel Assistant Manager: Chi Layne MD #### BMP, CBC #### [facility] [place] [address] Hotel Assistant Manager: Russell Sanchez MD Hemoglobin A1Con 10-27-2021 Glucose [Mass/Vol] 137 mg/dL Normal [facility] Comment on above: Result Comment: The ADA and AACC recommend providing the estimated average glucose result to permit better patient understanding of their HBA1c result. Performed By: #### G LYHGB, IOCAL #### [address] [address] Hotel Assistant Manager: Chi Layne MD #### BMP, CBC #### [facility] [address] [place] [address] Hotel Assistant Manager: Russell Sanchez MD HbA1c (Bld) [Mass fraction] 6.4 % High 4.0-6.0 [facility] Comment on above: Performed By: #### G LYHGB, IOCAL #### [address] [address] Hotel Assistant Manager: Chi Layne MD #### BMP, CBC #### [facility] [address] [place] [address] Hotel Assistant Manager: Russell Sanchez MD XR CHEST (2 VW)on 10-27-2021 XR CHEST (2 VW) EXAMINATION: TWO XRAY VIEWS OF THE CHEST 10/27/2021 5:03 pm COMPARISON: 03/30/2019 HISTORY: ORDERING SYSTEM PROVIDED HISTORY: PRE OP TECHNOLOGIST PROVIDED HISTORY: PRE OP Reason for Exam: Pre op thyroid surgery on 11/13. Pt states no current chest complaints. Hx of COPD FINDINGS: Cardiomediastinal silhouette is normal in size. Aortic atherosclerosis. There is no pleural effusion or pneumothorax. There are linear bibasilar opacities. Multilevel degenerative changes of the thoracic spine. IMPRESSION: Linear bibasilar opacity, likely atelectasis. Interpreted by: Vivian Padron MD Signed by: Vivian Padron MD 10/27/21 Final result Normal [facility] Linear bibasilar opa city, likely atelectasis. [facility] EXAMINATION: TWO XRAY VIEWS OF THE CHEST 10/27/2021 5:03 pm COMPARISON: 03/30/2019 HISTORY: ORDERING SYSTEM PROVIDED HISTORY: PRE OP TECHNOLOGIST PROVIDED HISTORY: PRE OP Reason for Exam: Pre op thyroid surgery on 11/13. Pt states no current chest complaints. Hx of COPD FINDINGS: Cardiomediastinal silhouette is normal in size. Aortic atherosclerosis. There is no pleural effusion or pneumothorax. There are linear bibasilar opacities. Multilevel degenerative changes of the thoracic spine. [facility] Vivian Padron MD - 10/27/2021 EXAMINATION: TWO XRAY VIEWS OF THE CHEST 10/27/2021 5:03 pm COMPARISON: 03/30/2019 HISTORY: ORDERING SYSTEM PROVIDED HISTORY: PRE OP TECHNOLOGIST PROVIDED HISTORY: PRE OP Reason for Exam: Pre op thyroid surgery on 11/13. Pt states no current chest complaints. Hx of COPD FINDINGS: Cardiomediastinal silhouette is normal in size. Aortic atherosclerosis. There is no pleural effusion or pneumothorax. There are linear bibasilar opacities. Multilevel degenerative changes of the thoracic spine. IMPRESSION: Linear bibasilar opacity, likely atelectasis. [employer] Phone: Radiology Study observation (narrative) [employer] Phone: XR CHEST (2 VW)Ordered By: Hyun Padron on 10-27-2021 [employer] Phone: Creatinine and Glomerular fi ltration rate.predicted panel (S/P/Bld)Ordered By: Shirley Persaud on 09-27-2021 Creatinine [Mass/Vol] 1.32 mg/dL 0.64-1.27 [facility] Estimated glomerular filtrat ion rate (GFR) non- AmericanOrdered By: Shirley Persaud on 09-27-2021 GFR/1.73 sq M.predicted among non-blacks MDRD (S/P/Bld) [Vol rate/Area] 55 mL/Min [facility] No Panel InformationOrdered By: Shirley Persaud on 09-27-2021 Estimated GFR () > 60 mL/Min [facility] Comment on above: GFR estimated refere nce range: According to KDOQI guidelines, <60 ml/min/1.73m2 is sufficient to diagnose a patient with chronic kidney disease. Pharmacy Creatinine Clearance (Chem N/A [facility] Serum or plasma calcium victor m urement (mass/volume)Ordered By: Shirley Persaud on 09-27-2021 Calcium [Mass/Vol] 11.1 mg/dL 8.2-10.2 [facility] Serum or plasma chloride meenakshi surement (moles/volume)Ordered By: Shirley Persaud on 09-27-2021 Chloride [Moles/Vol] 99 mmol/L 95-114 [facility] Serum or plasma glucose victor m urement (mass/volume)Ordered By: Shirley Persaud on 09-27-2021 Glucose [Mass/Vol] 106 mg/dL 70-100 [facility] Comment on above: ADA recommended refe rence range Random Glucose Reference Range is dependent on time and content of last meal. Glucose of more than 200 mg/dL in a nonstressed, ambulatory subject supports the diagnosis of Diabetes Mellitus. ADA recommended refe rence rangeRandom Glucose Reference Range is dependent on time and content of last meal. Glucose of more than 200 mg/dL in a nonstressed, ambulatory subject supports the diagnosis of Diabetes Mellitus. Serum or plasma potassium me asurement (moles/volume)Ordered By: Shirley Persaud on 09-27-2021 Potassium [Moles/Vol] 4.4 mmol/L 3.5-5.1 [facility] Serum or plasma sodium measu rement (moles/volume)Ordered By: Shirley Persaud on 09-27-2021 Sodium [Moles/Vol] 136 mmol/L 136-146 [facility] Serum or plasma total carbon dioxide measurement (moles/volume)Ordered By: Shirley Persaud on 09-27-2021 CO2 [Moles/Vol] 27.4 mmol/L 22.0-30.0 [facility] Serum or plasma urea nitroge n measurement (mass/volume)Ordered By: Shirley Persaud on 09-27-2021 Urea nitrogen [Mass/Vol] 36 mg/dL 9-23 [facility] Bacteria identified Anaer cx Nom (Unsp spec)Ordered By: ALEX Begum on 09-25-2021 Anaerobic microbial culture No Anaerobes Isolated 3 Days [facility] Basophils Auto (Bld) [#/Vol] Ordered By: Shirley Persaud on 09-24-2021 Basophils (Bld) [#/Vol] 0.1 10*3/uL 0.0-0.2 [facility] Basophils/100 WBC Auto (Bld) Ordered By: Shirley Persaud on 09-24-2021 Basophils/100 WBC (Bld) 0.8 % . [facility] Blood hemoglobin measurement (mass/volume)Ordered By: Shirley Persaud on 09-24-2021 Hemoglobin (Bld) [Mass/Vol] 12.6 g/dL 13.0-17.0 [facility] Blood leukocytes automated c ount (number/volume)Ordered By: Shirley Persaud on 09-24-2021 WBC (Bld) [#/Vol] 6.7 10*3/uL 4.5-11.0 [facility] Creatinine and Glomerular fi ltration rate.predicted panel (S/P/Bld)Ordered By: Shirley Persaud on 09-24-2021 Creatinine [Mass/Vol] 1.32 mg/dL 0.64-1.27 [facility] Eosinophils Auto (Bld) [#/Vo l]Ordered By: Shirley Persaud on 09-24-2021 Eosinophils (Bld) [#/Vol] 0.4 10*3/uL 0.0-0.45 [facility] Eosinophils/100 WBC Auto (Bl d)Ordered By: Shirley Persaud on 09-24-2021 Eosinophils/100 WBC (Bld) 6.0 % . [facility] Erythrocyte distribution wid th Auto (RBC) [Ratio]Ordered By: Shirley Persaud on 09-24-2021 Erythrocyte distribution width (RBC) [Ratio] 14.5 % 12.0-14.8 [facility] Estimated glomerular filtrat ion rate (GFR) non- AmericanOrdered By: Shirley Persaud on 09-24-2021 GFR/1.73 sq M.predicted among non-blacks MDRD (S/P/Bld) [Vol rate/Area] 55 mL/Min [facility] Glucose Glucometer (BldC) [M ass/Vol]Ordered By: Shirley Persaud on 09-24-2021 Glucose [Mass/Vol] 124 mg/dL [facility] Comment on above: Random Glucose Refer ence Range is dependent on time and content of last meal. Glucose of more than 200 mg/dL in a nonstressed, ambulatory subject supports the diagnosis of Diabetes Mellitus. Hematocrit Auto (Bld) [Volum e fraction]Ordered By: Shirley Persaud on 09-24-2021 Hematocrit (Bld) [Volume fraction] 37.6 % 38.8-50.0 [facility] Laboratory - Hematology and Cell countsOrdered By: Shirley Persaud on 09-24-2021 Nucleated RBC/100 WBC (Bld) [Ratio] 0.0 % 0-0.5 [facility] Lymphocytes Auto (Bld) [#/Vo l]Ordered By: Shirley Persaud on 09-24-2021 Lymphocytes (Bld) [#/Vol] 0.6 10*3/uL 1.00-4.8 [facility] Lymphocytes/100 WBC Auto (Bl d)Ordered By: Shirley Persaud on 09-24-2021 Lymphocytes/100 WBC (Bld) 8.9 % . [facility] MCH Auto (RBC) [Entitic mass ]Ordered By: Shirley Persaud on 09-24-2021 MCH (RBC) [Entitic mass] 28.8 pg 27.5-35.2 [facility] MCHC Auto (RBC) [Mass/Vol]Or dered By: Shirley Persaud on 09-24-2021 MCHC (RBC) [Mass/Vol] 33.7 g/dL 32.5-35.6 [facility] MCV Auto (RBC) [Entitic vol] Ordered By: Shirley Persaud on 09-24-2021 MCV (RBC) [Entitic vol] 85.7 fL 83.5-101 [facility] Monocytes Auto (Bld) [#/Vol] Ordered By: Shirley Persaud on 09-24-2021 Monocytes (Bld) [#/Vol] 0.7 10*3/uL 0.0-0.8 [facility] Monocytes/100 WBC Auto (Bld) Ordered By: Shirley Persaud on 09-24-2021 Monocytes/100 WBC (Bld) 10.9 % . [facility] Neutrophils Auto (Bld) [#/Vo l]Ordered By: Shirley Persaud on 09-24-2021 Neutrophils (Bld) [#/Vol] 4.9 10*3/uL 1.8-7.7 [facility] Neutrophils/100 WBC Auto (Bl d)Ordered By: Shirley Persaud on 09-24-2021 Neutrophils/100 WBC (Bld) 73.4 % . [facility] No Panel InformationOrdered By: Shirley Persaud on 09-24-2021 Bedside Glucose Comment Glu2: cleaned meter [facility] Estimated GFR () > 60 mL/Min [facility] Comment on above: GFR estimated refere nce range: According to KDOQI guidelines, <60 ml/min/1.73m2 is sufficient to diagnose a patient with chronic kidney disease. Pharmacy Creatinine Clearance (Chem 69.81 [facility] Platelet mean volume Auto (B ld) [Entitic vol]Ordered By: Shirley Persaud on 09-24-2021 Platelet mean volume (Bld) [Entitic vol] 6.8 fL 6.6-10.1 [facility] Platelets Auto (Bld) [#/Vol] Ordered By: Shilrey Persaud on 09-24-2021 Platelets (Bld) [#/Vol] 277 10*3/uL 150-450 [facility] RBC Auto (Bld) [#/Vol]Ordere d By: Shirley Persaud on 09-24-2021 RBC (Bld) [#/Vol] 4.38 10*6/uL 3.90-5.60 [facility] Serum or plasma calcium victor m urement (mass/volume)Ordered By: Shirley Persaud on 09-24-2021 Calcium [Mass/Vol] 10.2 mg/dL 8.2-10.2 [facility] Serum or plasma chloride meenakshi surement (moles/volume)Ordered By: Shirley Persaud on 09-24-2021 Chloride [Moles/Vol] 99 mmol/L 95-114 [facility] Serum or plasma glucose victor m urement (mass/volume)Ordered By: Shirley Persaud on 09-24-2021 Glucose [Mass/Vol] 109 mg/dL 70-100 [facility] Comment on above: ADA recommended refe rence range Random Glucose Reference Range is dependent on time and content of last meal. Glucose of more than 200 mg/dL in a nonstressed, ambulatory subject supports the diagnosis of Diabetes Mellitus. Serum or plasma potassium me asurement (moles/volume)Ordered By: Shirley Persaud on 09-24-2021 Potassium [Moles/Vol] 3.7 mmol/L 3.5-5.1 [facility] Comment on above: Delta: 5.4 on 0236 Serum or plasma sodium measu rement (moles/volume)Ordered By: Shirley Persaud on 09-24-2021 Sodium [Moles/Vol] 137 mmol/L 136-146 [facility] Serum or plasma total carbon dioxide measurement (moles/volume)Ordered By: Shirley Persaud on 09-24-2021 CO2 [Moles/Vol] 30.2 mmol/L 22.0-30.0 [facility] Serum or plasma urea nitroge n measurement (mass/volume)Ordered By: Shirley Persaud on 09-24-2021 Urea nitrogen [Mass/Vol] 31 mg/dL 9-23 [facility] ABO and Rh group post transf usion reaction Nom (Bld)Ordered By: [facility] Pete Begum on 09-23-2021 Microscopic observation Gram stain Nom (Unsp spec) [facility] Bacteria identified Aer cx N om (Unsp spec)Ordered By: Brionna Ruano Brionna Lukasz on 09-23-2021 Superficial Wound Culture Staphylococcus aureus [facility] Serum or plasma trough vanco mycin levelOrdered By: Cindy Donald on 09-23-2021 Vancomycin trough [Mass/Vol] 24.0 ug/mL 10.0-20.0 [facility] Comment on above: Last dose: - C reactive protein [Mass/vol ume] in Serum or PlasmaOrdered By: Shirley Persaud on 09-22-2021 CRP [Mass/Vol] 5.0 mg/dL 0.0-1.0 [facility] Peak vancomycin levelOrdered By: Cindy Donald on 09-22-2021 Vancomycin peak [Mass/Vol] 44.1 ug/mL 20.0-40.0 [facility] Comment on above: Last dose: - Phosphate [Mass/volume] in S elmira or PlasmaOrdered By: Shirley Persaud on 09-22-2021 Phosphate [Mass/Vol] 3.2 mg/dL 2.5-4.6 [facility] Serum or plasma intact parat hyroid hormone measurement (mass/volume)Ordered By: Mohini Hanna on 09-22-2021 Parathyrin.intact [Mass/Vol] 79.1 pg/mL 12-88 [facility] COVID-19 Positive/NegativeOr dered By: Cindy Donald on 09-21-2021 SARS-CoV-2 (COVID-19) N gene EMILY+probe Ql (Resp) Negative Negative [facility] Comment on above: Testing for SARS-CoV -2 by RT-PCR This test was developed and its performance characteristics determined by [employer] and validated at the [facility]. This test has not been FDA cleared or approved. This test has been authorized by FDA under an Emergency Use Authorization (EUA). This test has been validated in accordance with the FDA's Guidance Document (Policy for Diagnostics Testing in Laboratories Certified to Perform High Complexity Testing under CLIA prior to Emergency Use Authorization for Coronavirus Disease-2019 during the Public Health Emergency) issued on June 18, 2019. This test is only authorized for the duration of time the declaration that circumstances exist justifying the authorization of the emergency use of in vitro diagnostic tests for detection of SARS-CoV-2 virus and/or diagnosis of COVID-19 infection under section 564(b)(1) of the Act, 21 U.S.C. 360bbb-3(b)(1), unless the authorization is terminated or revoked sooner. Albumin [Mass/volume] in Ser um or PlasmaOrdered By: ALEX Lal on 09-20-2021 Albumin [Mass/Vol] 3.3 g/dL 3.2-5.5 [facility] Globulin Calc (S) [Mass/Vol] Ordered By: ALEX Lal on 09-20-2021 Globulin (S) [Mass/Vol] 4.1 g/dL [facility] Protein [Mass/volume] in Ser um or PlasmaOrdered By: ALEX Lal on 09-20-2021 Protein [Mass/Vol] 7.4 g/dL 6.1-7.9 [facility] Serum or plasma alanine bartholomew otransferase measurement without P-5'-P (enzymatic activiOrdered By: ALEX Lal on 09-20-2021 ALT No additional P-5'-P [Catalytic activity/Vol] 21 U/L 10-60 [facility] Serum or plasma albumin/glob ulin mass ratioOrdered By: ALEX Lal on 09-20-2021 Albumin/Globulin [Mass ratio] 0.8 {ratio} [facility] Serum or plasma alkaline dorothea sphatase measurement (enzymatic activity/volume)Ordered By: ALEX Lal on 09-20-2021 ALP [Catalytic activity/Vol] 110 U/L 32-92 [facility] Serum or plasma aspartate am inotransferase measurement (enzymatic activity/volume)Ordered By: ALEX Lal on 09-20-2021 AST [Catalytic activity/Vol] 26 U/L 10-42 [facility] Serum or plasma total biliru bin measurement (mass/volume)Ordered By: ALEX Ruano Brionna [place] on 09-20-2021 Bilirubin [Mass/Vol] 0.6 mg/dL 0.3-1.2 [facility] US Venous, Unilat, Lower Ext Lefton 09-19-2021 US Venous, Unilat, Lower Ext Left CLINICAL HISTORY: Leg swelling for weeks. History of DVT. COMPARISON: 09/10/2018. TECHNIQUE: The left lower extremity veins were evaluated with color Doppler, grayscale imaging, and spectral analysis while using compression and augmentation when possible. FINDINGS: Evaluation of the left lower extremity veins from the thigh to the calf shows normal phasic flow, normal augmentation of the Doppler signal, and normal compression of the deep veins. There is no sonographic evidence for acute deep venous thrombosis from the left groin to the popliteal region. There is no sonographic evidence for acute deep vein thrombosis in the left calf veins. IMPRESSION: No acute DVT of the left lower extremity veins from the groin to the knee. No acute DVT of the left calf veins. Report reported and signed by Ferd Kidd on 09/19/2021 1533 Normal [facility] Albumin [Mass/volume] in Ser um or PlasmaOrdered By: Joana Farooq on 09-06-2021 Albumin [Mass/Vol] 3.7 g/dL 3.2-5.5 [facility] Basophils Auto (Bld) [#/Vol] Ordered By: Joana Farooq on 09-06-2021 Basophils (Bld) [#/Vol] 0.0 10*3/uL 0.0-0.2 [facility] Basophils/100 WBC Auto (Bld) Ordered By: Joana Farooq on 09-06-2021 Basophils/100 WBC (Bld) 0.8 % . [facility] Blood hemoglobin measurement (mass/volume)Ordered By: Joana Farooq on 09-06-2021 Hemoglobin (Bld) [Mass/Vol] 13.8 g/dL 13.0-17.0 [facility] Blood leukocytes automated c ount (number/volume)Ordered By: Joana Farooq on 09-06-2021 WBC (Bld) [#/Vol] 5.9 10*3/uL 4.5-11.0 [facility] Cholesterol [Mass/volume] in Serum or PlasmaOrdered By: Stephanie Burgess on 09-06-2021 Cholesterol [Mass/Vol] 154 mg/dL 140-200 [facility] Comment on above: Chol less than 200 m g/dl low risk Chol 201-239 mg/dl borderline risk Chol 240 mg/dl and greater high risk Cholesterol in LDL Calc [Mas s/Vol]Ordered By: Stephanie Burgess on 09-06-2021 Cholesterol in LDL [Mass/Vol] 93 mg/dL 0-100 [facility] Comment on above: LDL ATP III CLASSIFI CATION LDL less than 100 mg/dL Optimal LDL 100-129 mg/dL Near or above optimal LDL 130-159 mg/dL Borderline high LDL 160-189 mg/dL High LDL greater than 189 mg/dL Very high Cholesterol in VLDL Calc [Ma ss/Vol]Ordered By: Stephanie Burgess on 09-06-2021 Cholesterol in VLDL [Mass/Vol] 15 mg/dL [facility] Creatinine and Glomerular fi ltration rate.predicted panel (S/P/Bld)Ordered By: Joana Farooq on 09-06-2021 Creatinine [Mass/Vol] 1.51 mg/dL 0.64-1.27 [facility] Eosinophils Auto (Bld) [#/Vo l]Ordered By: Joana Farooq on 09-06-2021 Eosinophils (Bld) [#/Vol] 0.4 10*3/uL 0.0-0.45 [facility] Eosinophils/100 WBC Auto (Bl d)Ordered By: Joana Farooq on 09-06-2021 Eosinophils/100 WBC (Bld) 6.4 % . [facility] Erythrocyte distribution wid th Auto (RBC) [Ratio]Ordered By: Joana Farooq on 09-06-2021 Erythrocyte distribution width (RBC) [Ratio] 15.0 % 12.0-14.8 [facility] Estimated glomerular filtrat ion rate (GFR) non- AmericanOrdered By: Joana Farooq on 09-06-2021 GFR/1.73 sq M.predicted among non-blacks MDRD (S/P/Bld) [Vol rate/Area] 47 mL/Min [facility] Globulin Calc (S) [Mass/Vol] Ordered By: Joana Farooq on 09-06-2021 Globulin (S) [Mass/Vol] 2.8 g/dL [facility] Hematocrit Auto (Bld) [Volum e fraction]Ordered By: Joana Farooq on 09-06-2021 Hematocrit (Bld) [Volume fraction] 41.6 % 38.8-50.0 [facility] Laboratory - Chemistry and C hemistry - challengeon 09-06-2021 Cholesterol [Mass/Vol] 154\S\154 Normal 140-200 [facility] [employer] DO Work Phone: Comment on above: Chol less than 200 m g/dl low risk Chol 201-239 mg/dl borderline risk Chol 240 mg/dl and greater high risk Cholesterol in LDL [Mass/Vol] 93\S\93 Normal 0-100 [facility] Work Phone: Comment on above: LDL ATP III CLASSIFI CATION LDL less than 100 mg/dL Optimal LDL 100-129 mg/dL Near or above optimal LDL 130-159 mg/dL Borderline high LDL 160-189 mg/dL High LDL greater than 189 mg/dL Very high Laboratory - Hematology and Cell countsOrdered By: Joana Farooq on 09-06-2021 Nucleated RBC/100 WBC (Bld) [Ratio] 0.1 % 0-0.5 [facility] Lymphocytes Auto (Bld) [#/Vo l]Ordered By: Joana Farooq on 09-06-2021 Lymphocytes (Bld) [#/Vol] 0.6 10*3/uL 1.00-4.8 [facility] Lymphocytes/100 WBC Auto (Bl d)Ordered By: Joana Farooq on 09-06-2021 Lymphocytes/100 WBC (Bld) 10.8 % . [facility] MCH Auto (RBC) [Entitic mass ]Ordered By: Joana Farooq on 09-06-2021 MCH (RBC) [Entitic mass] 29.1 pg 27.5-35.2 [facility] MCHC Auto (RBC) [Mass/Vol]Or dered By: Joana Farooq on 09-06-2021 MCHC (RBC) [Mass/Vol] 33.1 g/dL 32.5-35.6 [facility] MCV Auto (RBC) [Entitic vol] Ordered By: Joana Farooq on 09-06-2021 MCV (RBC) [Entitic vol] 87.9 fL 83.5-101 [facility] Monocytes Auto (Bld) [#/Vol] Ordered By: Joana Farooq on 09-06-2021 Monocytes (Bld) [#/Vol] 0.7 10*3/uL 0.0-0.8 [facility] Monocytes/100 WBC Auto (Bld) Ordered By: Joana Farooq on 09-06-2021 Monocytes/100 WBC (Bld) 11.2 % . [facility] Neutrophils Auto (Bld) [#/Vo l]Ordered By: Joana Farooq on 09-06-2021 Neutrophils (Bld) [#/Vol] 4.1 10*3/uL 1.8-7.7 [facility] Neutrophils/100 WBC Auto (Bl d)Ordered By: Joana Farooq on 09-06-2021 Neutrophils/100 WBC (Bld) 70.8 % . [facility] No Panel Informationon 09-06 3.3\S\3.3 Normal <5.0 [facility] y 250 DO Work Phone: Comment on above: PERFORMED BY:[place] [address] [address] [place], [place] [id number] MEDICAL DIRECTORAPRIL VEGA M.D. 15\S\15 [facility] Work Phone: 75\S\75 Normal 35-149 [facility] y 250 DO Work Phone: Comment on above: TRIG ATP III CLASSIF ICATION TRIG less than 150 mg/dL Normal TRIG 150-199 mg/dL Borderline high TRIG 200-500 mg/dL High TRIG greater than 500 mg/dL Very high Standard traceable to the Center for Disease Conrtrol and Prevention (CDC) test method. 46\S\46 Normal 29-71 -[facility] y 250 DO Work Phone: Comment on above: HDL CHOL ATP-III CLA SSIFICATION Cardiovascular Risk HDL > or equal to 60 mg/dL LOW HDL < 40 mg/dL HIGH No Panel InformationOrdered By: Joana Farooq on 09-06-2021 Estimated GFR () 57 mL/Min [facility] Comment on above: GFR estimated refere nce range: According to KDOQI guidelines, <60 ml/min/1.73m2 is sufficient to diagnose a patient with chronic kidney disease. Pharmacy Creatinine Clearance (Chem N/A [facility] Platelet mean volume Auto (B ld) [Entitic vol]Ordered By: Joana Farooq on 09-06-2021 Platelet mean volume (Bld) [Entitic vol] 7.4 fL 6.6-10.1 [facility] Platelets Auto (Bld) [#/Vol] Ordered By: Joana Farooq on 09-06-2021 Platelets (Bld) [#/Vol] 227 10*3/uL 150-450 [facility] Protein [Mass/volume] in Ser um or PlasmaOrdered By: Joana Farooq on 09-06-2021 Protein [Mass/Vol] 6.5 g/dL 6.1-7.9 [facility] RBC Auto (Bld) [#/Vol]Ordere d By: Joana Farooq on 09-06-2021 RBC (Bld) [#/Vol] 4.73 10*6/uL 3.90-5.60 [facility] Serum or plasma alanine bartholomew otransferase measurement without P-5'-P (enzymatic activiOrdered By: Joana Farooq on 09-06-2021 ALT No additional P-5'-P [Catalytic activity/Vol] 17 U/L 10-60 [facility] Serum or plasma albumin/glob ulin mass ratioOrdered By: Joana Farooq on 09-06-2021 Albumin/Globulin [Mass ratio] 1.3 {ratio} [facility] Serum or plasma alkaline dorothea sphatase measurement (enzymatic activity/volume)Ordered By: Joana Farooq on 09-06-2021 ALP [Catalytic activity/Vol] 84 U/L 32-92 [facility] Serum or plasma aspartate am inotransferase measurement (enzymatic activity/volume)Ordered By: Joana Farooq on 09-06-2021 AST [Catalytic activity/Vol] 25 U/L 10-42 [facility] Serum or plasma calcium victor m urement (mass/volume)Ordered By: Joana Farooq on 09-06-2021 Calcium [Mass/Vol] 10.4 mg/dL 8.2-10.2 [facility] Serum or plasma chloride meenakshi surement (moles/volume)Ordered By: Joana Farooq on 09-06-2021 Chloride [Moles/Vol] 101 mmol/L 95-114 [facility] Serum or plasma glucose victor m urement (mass/volume)Ordered By: Joana Farooq on 09-06-2021 Glucose [Mass/Vol] 118 mg/dL 70-100 [facility] Comment on above: ADA recommended refe rence range Random Glucose Reference Range is dependent on time and content of last meal. Glucose of more than 200 mg/dL in a nonstressed, ambulatory subject supports the diagnosis of Diabetes Mellitus. Serum or plasma high density lipoprotein (HDL) cholesterol measurementOrdered By: Stephanie Burgess on 09-06-2021 Cholesterol in HDL [Mass/Vol] 46 mg/dL 29-71 [facility] Comment on above: HDL CHOL ATP-III CLA SSIFICATION Cardiovascular Risk HDL > or equal to 60 mg/dL LOW HDL < 40 mg/dL HIGH Serum or plasma potassium me asurement (moles/volume)Ordered By: Joana Farooq on 09-06-2021 Potassium [Moles/Vol] 4.3 mmol/L 3.5-5.1 [facility] Serum or plasma sodium measu rement (moles/volume)Ordered By: Joana Farooq on 09-06-2021 Sodium [Moles/Vol] 140 mmol/L 136-146 [facility] Serum or plasma total biliru bin measurement (mass/volume)Ordered By: Joana Farooq on 09-06-2021 Bilirubin [Mass/Vol] 0.8 mg/dL 0.3-1.2 [facility] Serum or plasma total carbon dioxide measurement (moles/volume)Ordered By: Joana Farooq on 09-06-2021 CO2 [Moles/Vol] 26.5 mmol/L 22.0-30.0 [facility] Serum or plasma total choles terol/high density lipoprotein (HDL) cholesterol mass ratOrdered By: Stephanie Burgess on 09-06-2021 Cholesterol.total/Cho lesterol in HDL [Mass ratio] 3.3 {ratio} <5.0 [facility] Serum or plasma urea nitroge n measurement (mass/volume)Ordered By: Joana Farooq on 09-06-2021 Urea nitrogen [Mass/Vol] 30 mg/dL 12-08 [facility] Serum or plasma uric acid me asurement (mass/volume)Ordered By: Joana Farooq on 09-06-2021 Urate [Mass/Vol] 4.8 mg/dL 2.6-7.2 [facility] Triglyceride [Mass/volume] i n Serum or PlasmaOrdered By: Stephanie Burgess on 09-06-2021 Triglyceride [Mass/Vol] 75 mg/dL 35-149 [facility] Comment on above: TRIG ATP III CLASSIF ICATION TRIG less than 150 mg/dL Normal TRIG 150-199 mg/dL Borderline high TRIG 200-500 mg/dL High TRIG greater than 500 mg/dL Very high Standard traceable to the Center for Disease Conrtrol and Prevention (CDC) test method. Provider Orderson 09-04-2021 Provider Orders [id number]#[id number] [facility] Coding Summaryon 08-31-2021 Coding Summary HTMLBase 64 MvqyhmhcKMl1oSl+PGhlYWQ+PE 0DHAJuG05mgRUfvQ7PZ2kQBJ3A WFLWRGQDHT9LBR4kgFL6JRkbH8 VybiAv DodopLRqYL08BOz6RRE9zOscIR knpG9qoLOpJ9i6WcMdTX47uH07 UChgNRGhZgS0WuKrasctwESd G4faGpRuaSYgJco+PHRhYmxlIH ylRDSiDRmuXGCzMqCxbRjfOZ8k Gs0dWDQjVRNxbJctdVJgRkIu j3kdRYNnXDigMQ3feVqrY3NwlU B0PGSbu9b8Qt24iLK+PHRkIHN0 qCgsALqjf906ThTrt4gsZTU1 uIRhBPaqSWT2B06vq1M3ESHlDF VlNCX3sPT2hM2deTyttkirQ6Ah gHOnEsO3NHR9pGDimH6ouUsl nqilhX3aQef+L34ILK8CNKIJZZ 0EYwg1Y5CyZhqciJV+KD44KWWo FB70pXYlfYRgc9uokUi5PyZr AXZgLPF4sXynAVqjl9ToTCPgV0 9ilFCyn0C6DMPeiHmrdFXyMjMh bKT4hY7mJWzrvwgtw8wpetdf Ncdws8miqu68rQ68Q10oKPhrMZ WpHON0TPXtDIQczGawsj6jzU1l Ii8+PSdir1dxr0ijtHl9QkSw KGQnilAnjNdgZVI1j2HcHu51C4 DvsBewv2VtRsh6nc62yLOxr5X4 hSM5XAvhTYHiqR9oOXmqCvO5 JQFaTaPybB39yPLmVSshTw0ubE txoEsgHZ3xUTBamohsQNCcfF7a YKBcpNSggRddBT1iUQVcihye c838ImTgQUW7KDLojWBlH8VlsC 0vNaVlZPHzWNYoX8DmqDPcQNea G824VAyhHxG9UNRcjrTqF4Xl NKJpgDvrTtD2v8R7Wg2He7Gbqn eaIHY4TYbxZJC7RcR6PpJrReZ5 Z6CxIau5JFBlxSpnWB5sE0Ip NMAurnghvgusfSX8PVNbKPPyfK 70lLCvYWxyXq2iz1K1d624FOQf TKQwrZ10Di2zrCjlYEWcvZLI aA3yufizx4lasyibYnHnLGSfOT g7TRz8UPHndOgnSqWkEPR9JbS1 GPI5lYAxtG5ruKtpgomamN5m Oyc+I79xsL4tJPH5CUZ6ybnnBH BfkuVdEM83WL61G8FzGaiokXAv bGU+FIBqtfExqCelOJ4tWaFg u0zgw0CaMDtpT8WnTYHvGFmsCa f4OYZpNEM9cWT9kT0wFUHcDGgm l9A6dAB9M5BrwdSvtu2sv8gw TJWhIWfgN45uiCByf9W1JELcfE I4DPFsfAqgIiKdoP28Vdx+PGNv oPocj2IiDbkvc4fid6yrkYr9 DvWhCPIfirFozTdiMUT6y1VtOd 82J91uTEaiLPMiRZSiTDBqZYKg bEqldg4zdB4iFb9+PGNvbCB3 nCB6jM6qZNRvAhJ7MQvqU633Dr YagIWsCendy2cbf6pzlYy1EtTo VUCydlYxwFpdQZT7t4FbFa34 A45xTFpuTXLoYWJwIMKyMBZqaU gldc4wkR4mFf0+FF5qg3hwkt39 nH35dMN+PPKmVNU4pTluJCpo ILGevA7wREmvLrT6QBIhIlQabG 47wSIpNQoqWk5ckDqmgUoyNQ0z IEIpaskyv867NvUhe0hxWOQm yIFuEKwiXRM9J96uu7L8DWErMF DjCKO0gZT4cG3xsBtsllxclJBc xGdxvmBzkXzkBJalKLaiF538 IHRvcDsnPlBhdGllbnQgTmFtZT k4Q0UhWvp1UBWmmQjiXU3xzIUk FTfzQs8gsAqttHqhCD9kERFo tvyln639EcQjt7arRWKmrOBhUP jhYCS1T29bt8F4TTEsBHEmHRP7 lCR1qV0njJjxqxrmxRUjpHoi qrZlfWygDDlwNJnxF417ECNwqU xoNqOimpZoPBStqHR0WV23HV57 wMAtv2O6vMK4R0FvLJXlluvc pspqcGF3BJJgIVNisK50Cp6fsJ crHl3sFITcUCS4YOAyoIWpC7Eu xH4sPnZnLRPaNNJxU1PmwLBr MPkyP725BUtmOiR4YSEdgmBuE0 CvBAZgcRigPmD6c9X5Cv8VK1K4 XY64IH93sVYyi1J9tFT5S6Fn LOQewgjhbjwoiUS6XXFuQSQfcK 20Jh2obNejGg3cKMUiAOW7KFTt gPNrF6HytG4oSsVxRHSkYZBi I2YshNLfVCedN153FDevXeI8WW YqitVhT0QlJLFdgDqlCaH4l8Z4 Yl0KZEf8SV84HY59rJEcc1K9 lFA6B0VpHAKgqgdkjtexnUF2AJ SwLWVdyG69Pd4jwGffHg6rRDYu MHD2HAOwoQCfQ3FljF1iBrTk NRRuIGGjP3HtdNTfQDkqJ258VA zlHzB0FQNwsxLoX3FzACUphZdp VxN3u7T7Np2QORYkFO00TZQ2 mDF0RJ25CU82H6IcSzlkwQUxyV U+PHRhYmxlIHdpZHRoPScxMDAl SbQjeXhvKV1oSu3iXZXsRDIo lZojtFWwOjZke5utJNExYKiuCK 6deZmtH8HpeOD7LDRyh3e5Uv68 B08uZ4OeqXX+HNTgaRV2tEE6 gC4lYgLlAvP3NMyaE093QwRbiA FoWplit1yac9rvgHe0IkC5GDGh xfNkeWbhGQP7r6EhIe52P61n IHdpZHRoPSIxNSUiIHZhbGlnbj 1xqN8nOn0+XCFdgWV4pQZ9vH9a JkOkKkF9VMxzK228MdCjmKSv Bpuxq1won3dclOw9JaYsNJIkvh XqlFrxVSJ9t3SpKz36P0NzoYqr h8SoKur1kr94nIVgq0D9nTW9 W9JnXYIysnpfjJOuxQksEF1nUY HrfbwlCZDrpA2gNZPlA4p8LrAg IaL1MRtqH3HlkhW1JFXezDZr FEffTJR0A15cv5H7WTBxGEIsWY F0yAL4bH9xgPccpbmtdODltWyg eeNrnZorRTicIMwzW594LSNn dWoiEEEkbN3gPEHnjJHijCyaLJ 9mVYAjngkqPdLHFLSQTLBQMN9K HCwRCMGNSKD5B6GsBxx1SJJv fBnjRZ5gcQEoHTtxGc6viAgqcY aoBK2aGYHznmdjADNupM5jQWMy pTJrvDdxXP6pHXYxxrtct924 QbLhCKY9HWHzaVVcA4OozZ3sMp UlVSMkVYDfM1PjyLTgEUhkB565 QZmvGeD4GFVbuiLcN9IsWVKm xFqoSzU3w5N6Ci8iPO9sZP8wFY Z0YZ11LZ41rHCpe9C1fYM8H6Ht ISJicqmeunxbsVF7WIJxZGXb gF66kZTvDUpnGs9sp2L4s647WM UuGCLgiM74Be1jkXvjYTDzmKES eT1rhioou1vfrsclGjEwHGBi BOn7RDv7PBKprYsgZwZwSZT8Jl X3XLZ5cDJjtM4iyRzklfmsuV9o Oyc+TaHrRGJnkmH0R1FyDbw9 XEYsmJhfZT3pkHLyYAxoPh9jkT qfjObxYL4fHBXqavakVHIymK9x WGOlnLNbhImdEY9nQWGgxtyz k866DlAvZBN0DQHzlRJmK5AbvI 8pDrQwMLIhDYPwW3ByzYSeUJdg G836JIccIfU2QXMcxvMgK9Ub EKMwdDvwPuI6u6N0Fl8WXVeIJX 60YV63yYJbw1Y5dJM9G9ZdVFDo disgbzqsoYL2CGCiKAWpvS57 ySUoAXjrMv4zm5F4m890YQMtTO RbrV44Pm0wrXskQZKgwSUDxI5h ggavo9miojzhPfLtMDKmEQy1 UZy4LFFdqYhfRwQnPVW9OqS6XB I8mVThxR0xcZonmrpyeH7bJqd+ CbVpiRBqgK0nIJ40mAKdwUcj cxD6Y9RwCxalrAQ+AJ65EJToDO 40lHNacMXno2vvaQx9BeKqLCEk JAC7vHzaTJsqw3PzQYZjM21i kRRwc5Y3PBTeuDcvcCTgNlQlrA B6kY1eOSllhdrlt2uezvgkScul v9zuxx39rF92V92eYCigQQJg HLNkRZIqHWEmbBsksu2bpF7tVb 8+JCTpyPY7fRH0iV2fEzGgRlQ4 XZciU740NjEwjRZeDuxxv4qa y3cqkUq6LsAuVFEadpVxrBhcSI N4z3SrKc36K80eHOtrDKMvVJSh WPYtKARunRnabu2ykH6wAc5+ AD8cq9plbs67hU68mUW+PHRkIH I7xSdcKPdtRHDkgV4pUTadHgU1 BVVfDqLsjB65yRZlFQeeRv5s dNjyvIqqXT1cDKKpasqwr884Qi Mti2ghIIXazCVjMFgbNMH0P58o b5U0SWJoGINvDSF6bCK9nW9t bGlnbjogbGVmdDsgdmVydGljYW rrPEvvH988ZCPaeBqmZzUhbQPo L7bafpXYGN8sJzktmXH+PHRk QZH0rYedFSezMGCgdO6zVAKuS2 m6BrMjTkX5XJorC5HsgfQ6OWBn eOWvEGDwjTGAsO4erexhu3tb xbatKoLmFHWfEEy3OXv2LFJjkJ muCaEoKTY0OxP4AXP5bDIzmP6a lTbeheapmA2wJqs+RklOOjwv dGQ+GJEjTPF9eEfpKGorMKVzaO 9qYTHhG7f0UzXwGsS3DBbdF4Rt qfE0NGZgbQOqCKYfqZAQbL2r xozvw0odczygEkXyFKPsDIk9FH p1VBUosGqaSyWgSEV0MuS2MTA0 cAMxdP8dfTnplcjliU0mXya+ TVJOOjwvdGQ+UKYaAVY8mBeuVJ ctSFNomF0nOBYyP6w7CdLlDxR5 JSydL3YteeB1WEKcqDOkSRSr rZXRyB4mdsxwa7knxpcpKzHdMF ZzIIe7KHl9OTWkrIhnLfApJXW5 TjJ0QNE0pXHeaQ5rzHthoawo hD1kLke+WXI0VCP1AY76EN16B2 RyPjwvdGFibGU+PHRhYmxlIHdp OETzQGlrGXMgNfEiwTpvMU2f Ym9 (more content not included)... [facility] Consent Formson 08-29-2021 Consent Forms [id number]#1.[facility] Orderson 08-24-2021 Provider Orders [id number]#[facility] XR cervical spine 5V*on XR cervical spine 5V* [id number]) XR/XR cervical spine 5V*: Other chronic pain;Pain in right [facility] Other XR cervical spine 5V* 5 views of thecerv ical spine [facility] Other XR cervical spine 5V* HISTORY: Mid anter ior cervical spine pain. [facility] Other XR cervical spine 5V* COMPARISON: None [facility] Other XR cervical spine 5V* Straightening of c ervical lordosis. [facility] Other XR cervical spine 5V* No acute cervical spine fracture identified. [facility] Other XR cervical spine 5V* 4 mm C3-4 anteroli sthesis present. [facility] Other XR cervical spine 5V* C5-6 and C6-7 mode rate disc space and endplate spurring present. C3-4, C4-5 and C5-6 bilateral bony [facility] Other XR cervical spine 5V* neural foraminal n arrowing present. [facility] Other XR cervical spine 5V* 2 mild facet degen eration present. [facility] Other XR cervical spine 5V* The bony neurofora men are patent. [facility] Other XR cervical spine 5V* The dens is intact. [facility] Other XR cervical spine 5V* The craniocervical junction is unremarkable. [facility] Other XR cervical spine 5V* No paraspinal soft tissue abnormality seen. [facility] Other XR cervical spine 5V* XR/XR cervical spine 5V* [facility] Other XR cervical spine 5V* IMPRESSION: 4 mm C 3-4 anterolisthesis. C5-6 and C6-7 moderate spondylosis. [facility] Other XR cervical spine 5V* Impression dictate d by: Kwasi Tomlin M.D.08/22/2021 4:06 PM [facility] Other XR cervical spine 5V* Dictation Location : [place] [address] [facility] Other XR cervical spine 5V* Transcribed By: CRISTINO Staton 08/22/21 [facility] Other XR cervical spine 5V* Dictated By: Kwasi Tomlin DO 08/22/21 160 [facility] Other XR cervical spine 5V* Signed By: [facility] [employer] Other XR cervical spine 5V* 08/22/21 [facility] Other XR shoulder RT min 2V*on XR shoulder RT min 2V* [facility] Other XR shoulder RT min 2V* [facility] Other XR shoulder RT min 2V* [address] [place] [address] [facility] Other XR shoulder RT min 2V* [place] [address] [facility] Other XR shoulder RT min 2V* XRay Report [facility] Other XR shoulder RT min 2V* Signed [facility] Other XR shoulder RT min 2V* Patient: AmparoSandra Gisela MR#: [id number] [facility] Other XR shoulder RT min 2V* 357 [facility] Other XR shoulder RT min 2V* : 1955 Acct:[id number] [facility] Other XR shoulder RT min 2V* Age/Sex: 66 / M ADM Date: 08/22/21 [facility] Other XR shoulder RT min 2V* [facility]: [facility] Room: Type: [facility] Other XR shoulder RT min 2V* Attending Dr: DREW Vogt APRN [facility] Other XR shoulder RT min 2V* Ordering Provider: Geeta Dumont APRN, ISABELLA [facility] Other XR shoulder RT min 2V* Date of Service: 08/22/21 [facility] Other XR shoulder RT min 2V* XR/XR shoulder RT min 2V*: Other chronic pain;Pain in right [facility] Other XR shoulder RT min 2V* shoulder;Cervical pain (nec [facility] Other XR shoulder RT min 2V* Copies to: Geeta Dumont APRN, ISABELLA [facility] Other XR shoulder RT min 2V* Right shoulder 08/22/2021. [employer] Other XR shoulder RT min 2V* CLINICAL DATA: Right shoulder pain and limited range of motion. [facility] Other XR shoulder RT min 2V* FINDINGS: 3 views of the right shoulder were obtained. [facility] Other XR shoulder RT min 2V* No acute fracture or dislocation is identified. Relatively mild degenerative changes are seen. [facility] Other XR shoulder RT min 2V* Findings include subchondral cystic changes at the glenoid. No bony erosion or destruction is [facility] Other XR shoulder RT min 2V* visualized. [facility] Other XR shoulder RT min 2V* XR/XR shoulder RT min 2V* [facility] Other XR shoulder RT min 2V* IMPRESSION: Mild degenerative changes. No acute bony abnormality. [facility] Other XR shoulder RT min 2V* Impression dictated by: Lucius Tavares Jr., M.D.08/22/2021 4:16 PM [facility] Other XR shoulder RT min 2V* Dictation Location: [place] [address] [employer] Other XR shoulder RT min 2V* Transcribed By: [facility] 08/22/21 [facility] [employer] Other XR shoulder RT min 2V* Dictated By: Lucius Tavares Jr, MD 08/22/21 [facility] Other XR shoulder RT min 2V* Signed By: [employer] Other XR shoulder RT min 2V* 08/22/21 [facility] Other Lab - Other Lab Resultson Lab - Other Lab Results [id number]#1.00OTGTIFF [facility] Coding Summaryon 06-28-2021 Coding Summary HTMLBase 64 HxjzjjfmIOd2qVb+PGhlYWQ+PE 4QWKChM94qpUXgwY4QC6oLLR6B IXIKUOILGB2BLZ0xvVQ1NSjjJ7 VybiAv YrgvhUXmKK99MMk0VDS4fFfgTN pqiN1xwQZjM5g1ZuEeQJ76vB30 JQzqZUQrXlF5TsFqodrqnQHw C6nqUaUgsKXtJvx+PHRhYmxlIH rhUPSbQKghPHHhGtGrfZemJU4d Fz3xIXNvGRQaoYnurUShKpOu h7woCPBkDMxsDO5ozOcpQ6AihT K4TVFng7t0Qt40aGK+PHRkIHN0 nZooFFgmz382YeRce4pcWUE7 iCIlVEpuPWV3Q92df3U1NKGgNM LzDKD9xEV5wO6cuCvazypjD2Aj cUQqIzZ2UQK8eMQypA6kwKvx pcgbzY5jZen+N55GUT1RZXWEKW 4AIic0W8MkSnmsqWX+NR07UCSs ON69qHBcbJIqr0rhvTe7EmEz DGIsUDV2pYzcPLxwn5IdPOKpS1 9lzWEph8Q4YORlqZnbwLReNvNh qVS4uW6dNWujqmexs7zivqfl Myfts6sspg81sO02D22jIJceJL PuLBD3WUZqLQSlyGkvcf0fkO9t Ii8+HCexp0jdr4iapDd0ZpYo JOBhzsXiqEekITF9k8FxPh14B3 XooJzpn0UzTbe4zx51eBTyb6K5 zMX8UChuDBUujJ0tARewNpP6 RQUzEaRvgA20sWRdOOusKw8rcN rbuVrrSE0jIWLdwrmjMQGusZ2j GLKpjEOitBvjMY3rRGYlsrfq w031YwBfRHW3ZIBubGNaG8WfhH 2wCeCyIYMzMSAuC3MnkNFoPUla D869KTpaUmT1KHBdyoReR0Tc TUJdcWhgVgT4b5Y4Nc4Xg4Yqod aaYFW6XSgdQIQ5GcSyIpRxZgG4 M8GaShl9FTBewObuTV2gH4Fh ZOJqspxihfyphUO5LOPuIZFxgR 40gFBoCGkgDo0bq6W6n029CLXi FOQhaE98Gs1uePljPVRwkPEU bN4upgokn2gsbwylXaOdRWRnMM y6LMz6OKEfcQajFlXoAWX8XuT2 OUG5rQVscR5xmZhhrvbsqQ8g Oyc+G05zoS3mZKY5HJI3qekuSP ZdjiDmCO77YU19Y4NrJnileRLu bGU+PHZhwmFnkCxvYH7dAkZl g5gzv0RoRKwoF1JcVUJxKBicVk y9ZMZqFCW0qGK4iX7yCSFkHPpg b8H5ePI3J5SnklNppk2vj3sa AKTvFMgqF31lkYYvd9M9OUAyjX W7UQMduOwcYxYojX64Nwj+PGNv gPjqu4QwFeuun1ybc6jlvQo8 RoJnZUYujiOqqPuwXSC1i3WiMw 94K80sKKzhQKDoZZLmKKGiZBEi kSapox5zgA7sXz8+PGNvbCB3 dVV9wG6uTODqLoD5LKojT738Kh YodIWyBkqxb1ujc0auwRq9TmKu YVOymzBefQytAAP6d2JzFz75 X80yYJbfMVHrIEEeIPWyDBTtaT hcka6urF0uWl9+QW9xd9mdgt84 eB86oNM+JXXnUVG2eZdsBVsq JWUkzP0eDAgiVjV2PUImOdColR 62rZTwCQenZa3ctGnyxEegSJ3x ECTfeqxag123FuNkk3xsYKXf rJRtONfpXPB0A12nj7S5SVKiWE DbFHP9fCU7sS6uhXxkudqqdHVn aXzpxpYbdBjhMXweDEeoU705 IHRvcDsnPlBhdGllbnQgTmFtZT b8Q9TyAym8VRLuyZnfYH2ylPFa SGqoOl4qcCinlZbmXN7qTVOu yyhak335OhGxq5xoUFDjuAHfMO xyTGK3S24fi8I7NFWmYHSgMTH0 nME2rW8mmPiyukqvqNQphWuc hlXscNbuRRmcHMpmK805BYWblE vlBnTkdrRrGCLugUE5RF59PB48 aZMmh6F2uCB9Z4GaXYRaokdj raeryDW4NEGgDWZflR70Lr7phZ myWg1qCHPlGRG2XUIzcPXbX4Fe hR5jZhWhQBXqCYHhT6TlxQTg MNglZ624IPyoLtZ8HRNyhaRlC5 HuFCMcjSzvVlH8r7U6Bl2XV6W1 JO54OR74jDNov5X2iTT1V4Yv ZWRecuaurpmkyDL8VNIcELHgsK 23Tj8qmOgiHp6lNZPlYCX3SVGx dYZjL0TmcA6wGcJnJMTpQTDs E4VcmQIwZDlpK627EFznYoI5ZB ZespDiH0CfNADqnDagKcQ1j8K4 Qi1UEUe5PO38LU19mBQwr3E8 fGK9K5JiDGZpsrughvycrAM7FZ AtHXTmmT18Ob3cuCprCu9gORPp UIE8PXVnyBWqL1NaoV4sSlOu LJAdEAXpH1PlzRNtHAntQ801GD zbHlD2FZJtyfHmG9JqUEPgnNpu QhM1b4Z5Jc6MXUVcQV09NYM2 iPY6CR78JE94A6ZyLbeunFJgvP U+PHRhYmxlIHdpZHRoPScxMDAl BjZmkAgrPI5dUq4pPJNeCRTh oQsjqPKsYbIjh1gnDFRqIMbmHF 5weXbjL4UchHE8MJSbm6k3Ym55 Y64uQ7JxmPW+VGTowNF9mFU9 yQ8vMwJfJvG3CXhpW323LwWnuZ HbHadco1uvp7cpxJl8MyW7IFXq gmXijBasBLY8v3JyKo70U73j IHdpZHRoPSIxNSUiIHZhbGlnbj 7vgD0dLk9+KJYqnYV7cXZ7fU1e PpGiJsT6HYpnH934RbDgsRRp Cfxuh1xob1fyjKw6LzMjTHFhhk ImnKcoULA3o7SfSn30B7NvzIuz a9DnVbb0lv01dPZrz3I4pIX9 S3ZxXLQfqcgftAAaxQhgCP9uGM EbeliyGYJkzT9tXVVgU1z3SvZm RwU6DFpgL1JvfkJ4ZPVtgMBm UJemZFG0D50ew6F9FUNwXCByHK B8hEW0wN9vuXvpgpppwKXuzGwf ctGccCwvANnqLDriD968DGSz mUjmWPQsaC7xHEBriBZnhTmiER 0ePRTbdyzySoWFAAXNESMKKS9L DSkQOAFBLSF2D5SdYlb7ZJAi dGyrTQ9eyKXbPOqbDj0slBppzU pbAL4aQRHesjnpHQYltL0rMYYq hPWurJczBW9uUSWrcvlcx351 WcCfQJE1MIWbpIEpV6YncE4gSq EeDRLySEKwJ9UijTWjSFptM291 CWouUiV4BJEddtHcN6PgBDKw sDraZpA1c7W1Ly2oXT7gUI4vUP H3RQ43KI23yVQvu2F1hWK2V6Vp DCEaxhkysvhubHE0VZArMXOm rR74vMNcLDlfHw6wi8K5w877PB JwIKYpvM14Xf0azRcwLWIcvKVS eI5alggnd8yszoskUqWbAWYh LHq9DDw0GNFddInlKbHvFYR5Vp X6ODB3dGNhnM0vhCehfwfazJ5u Oyc+IfHgMGMrzaN1K7OkVqe4 NEJugEpyIH1xnCSbWDfoPw8zsL unzVijPQ1vFLEbjzvfOPUpoV0d UDZuwFNzqXpqKD3wHOUedkrz z213YdQbZUL0JBSbpUTaE9JnuH 9dLwYwJDLbUOByK3SjxXWkQOqt T364KTzhCfC5CHBuclMoD7Ar PXBjrHpiLwG3y4F5Mv3SMMvKRD 98PL60tDCcc4O7jOW9X9SqXVBv tuhfwcfrzIO7TOGfYIQaeD82 yELxIEvcAv5yv9Y5m519UBAzYV GdgT20Eb7vaIkgYBKdgPTAkE5o ywrnr8eoqhdrYlKhTINaOOc4 VLi9OOFviPleSfXxGZJ1SoZ6VQ Q1vBYexC8tdBojnxcfnA2jGpg+ V0K0H1KgPcddsHP+KY73CGNo DD87eBEwzDLav8xamGq7IuWfPN LmHKC8zPfzLCzdc4MsKLDiB84h cEIxj6S5RIEriNoxsGDrVeMh aAA4wJ1iTTxwhezzn1qthhhqBc luc0gqlv65vK96I75sHIuwWLJj UXUaHWZoGRGsqBbyoe7pdI3e Ii8+TFIiwBC3xBH3zG9tZiHaLf Y3JRdkV005FgWrxUJgMsqpi5fg c7jjvLz8ZrWkOSCodnMoyPaj IHB8v9TmJu84I10dVBhlUXJqYX AhOSLhRSNqbGonhx5ylC8gAp7+ LU8ct3fide39wV91kLY+PHRk JSM1dZdvAFlcYBOagX1oWXbzMe A0BTKgWiCbtO42xQQaANcoUf2p qEchaMusPO3jGILadawck791 ZmKud5rbZHKliXBtVXyqEHJ9K2 8si9K0ONWpDQWqDNK9kKS8uH7e bGlnbjogbGVmdDsgdmVydGlj FRfzFNqxI455DOQmkCbvByKpzP GoV7qagaXXQA7mZztbjFI+PHRk OAF6bZkcPGnvZKCaoC2dEFIl S3d6JmPcHjN2LXvwS1LtikI8LF DwoLWxYNAleUWYqI2qixcqy4fx snrzNgEyCWIzERs3TUn0NWEe fRvxIfOlPRB8YgH5GOP4zVBmoY 2qaAfnmrbefQ5tJmg+RklOOjwv dGQ+XWCiDWM2jJilERxlJTHh zO3jXJBtC0b3KvGcJoT3STgkR8 DjswI2SPLuaTQoYRAurTTGuQ7w zvkwn6gnkwwbHrUkCMRuXIt3 VZb0UPEclPesIrMsNWD4FeS5IH G1dDPhgH2fvWdwmdclzY1fTjb+ TVJOOjwvdGQ+SEXvDMA1xCdu PInuFNFkkC8tSMRyK7c2IuGkZd B8PRivT8PpiwF0SWRrcXAjFFJm pUOGrY2lfyhwu1ibeasnEaDs OHZhWEd9KUu7TVGobXstVsOdVO D0WsU1QIW6gSGomZ0szRvzrmin cG8uCzv+TKT8JRY7SQ66YZ31 C6JgFwzbnMKrqED+PHRhYmxlIH voALKtTKdcEOGtLjEzySzyLJ9s Hg3iYGZvFNJnzWohbRQtSnOd b2x (more content not included)... [facility] Calcium, Ionized, Serum LCon 06-23-2021 Calcium, Ionized, Serum LC 6.1 mg/dL High 4.5-5.6 [facility] Comment on above: Result Comment: Perf ormed At: [facility] [id number] [place], [place] [id number] Zachary Wade PhD Ph:[phone] Performed By: #### 1 [id number], [id number], [id number], [id number] ####[facility] (DEFAULT)[address] [place] [address] 12681 PTH, Intact LCon 06-23-2021 PTH, Intact LC 104 pg/mL High 15-65 [facility] Comment on above: Result Comment: [facility]f [facility]med At: [facility] [address] [place], [place] [id number] aZchary Wade PhD Ph:[phone] Performed By: #### 1 [id number], [id number], [id number], [id number], [id number] ####[facility] (DEFAULT)[address] [place] [address]76 Provider Orderson 06-23-2021 Provider Orders [id number] Normal [facility] CMP Standardon 06-22-2021 eGFR AA >60 Invalid Interpretation Code [facility] Comment on above: Result Comment: [employer] Editor nancy Kidney disease could be indicated at eGFRs of less than 60 ml/min/1.73m2. Kidney Failure is indicated at less than 15 ml/min/1.73m2 Performed By: #### 1 [id number], [id number], [id number], [id number], [id number] ####[facility] (DEFAULT)[address] [place] [address] 59078 eGFR Non AA >60 Invalid Interpretation [facility] Comment on above: Performed By: #### 1 [id number], [id number], [id number], [id number], [id number] ####[facility] (DEFAULT)[address] [place] [address] Albumin [Mass/Vol] 4.3 g/dL Normal 3.5-5.0 [facility] Comment on above: Performed By: #### 1 [id number], [id number], [id number], [id number], [id number] ####[facility] (DEFAULT)[address] [place] [address] Albumin/Globulin [Mass ratio] 1.4 {ratio} Normal 1.4-2.6 [facility] Comment on above: Performed By: #### 1 [id number], [id number], 9842932, [id number], [id number] ####[facility] (DEFAULT)[address] [place] [address] Alk Phos 70 IU/L Normal 32-91 [facility] Comment on above: Performed By: #### 1 [id number], 78968641, [id number], [id number], [id number] ####[facility] (DEFAULT)[address] [place] [address] ALT [Catalytic activity/Vol] 28.0 U/L Normal 17.0-63.0 [facility] Comment on above: Performed By: #### 1 [id number], [id number], 4608940, [id number], [id number] ####[facility] (DEFAULT)[address] [place] [address] Anion gap [Moles/Vol] 14.0 mmol/L Normal 5.0-19.0 [facility] Comment on above: Performed By: #### 1 [id number], [id number], 4439047, [id number], [id number] ####[facility] (DEFAULT)[address] [place] [address] AST [Catalytic activity/Vol] 36 U/L Normal 15-41 [facility] Comment on above: Performed By: #### 1 [id number], [id number], 5494028, [id number], [id number] ####[facility] [facility] (DEFAULT[facility] [place] [address] Bili Total 0.7 mg/dL Normal 0.3-1.2 [facility] Comment on above: Performed By: #### 1 [id number], [id number], 0988636, [id number], [id number] ####[facility] (DEFAULT)[address] [place] [address] 63190 Calcium [Mass/Vol] 10.8 mg/dL High 8.9-10.3 [facility] Comment on above: Performed By: #### 1 [id number], 05768560, 7428627, [id number], 0130108 ####[facility] (DEFAULT)[address] [place] [address] 85376 Chloride [Moles/Vol] 107 mmol/L Normal 101-111 [facility] Comment on above: Performed By: #### 1 [id number], 02460810, 5127427, [id number], [id number] ####[facility] (DEFAULT)[address] [place] [address] 71579 CO2 [Moles/Vol] 26 mmol/L Normal 21-32 [facility] Comment on above: Performed By: #### 1 [id number], 86947868, 8535553, [id number], 3620931 ####[facility] (DEFAULT)[address] [place] [address] 05694 Creatinine [Mass/Vol] 1.09 mg/dL Normal 0.90-1.30 [facility] Comment on above: Performed By: #### 1 [id number], 89661880, 3610494, [id number], 1498424 ####[facility] (DEFAULT)[address] [place] [address] 42857 Globulin (S) [Mass/Vol] 3.1 g/dL Normal 1.5-4.3 [facility] Comment on above: Performed By: #### 1 [id number], 33621604, 9644062, [id number], 4593535 ####[facility] (DEFAULT)[address] [place] [address] 26064 Glucose [Mass/Vol] 145.0 mg/dL High 74.0-118.0 [facility] Comment on above: Performed By: #### 1 1653032, 36549255, 1875940, [id number], 9048680 ####[facility] (DEFAULT)[address] [place] [address] 09293 Osmolality 288 mOsm/L Invalid Interpretation Code [facility] Comment on above: Performed By: #### 1 0354600, 00192777, 1122130, [id number], 9702541 ####[facility] (DEFAULT)[address] [place] [address] 18548 Potassium [Moles/Vol] 4.8 mmol/L Normal 3.6-5.1 [facility] Comment on above: Performed By: #### 1 9822226, 02739692, 6549766, [id number], 2570848 ####[facility] (DEFAULT)[address] [place] [address] 09802 Protein [Mass/Vol] 7.4 g/dL Normal 6.5-8.1 [facility] Comment on above: Performed By: #### 1 [id number], 64799886, 0013610, [id number], 0282208 ####[facility] (DEFAULT)[address] [place] [address] 79592 Sodium [Moles/Vol] 142.0 mmol/L Normal 136.0-144 . 0 [facility] Comment on above: Performed By: #### 1 1431153, 68222614, 5354927, [id number], 8704107 ####[facility] (DEFAULT)[address] [place] [address] 46459 Urea nitrogen [Mass/Vol] 19 mg/dL Normal 8-26 [facility] Comment on above: Performed By: #### 1 9684618, 20608158, 3016564, [id number], 4692081 ####[facility] (DEFAULT)[address] [place] [address] 75805 Urea nitrogen/Creatinine [Mass ratio] 17.0 mg/mg High 4.6-16.2 [facility] Comment on above: Performed By: #### 1 6331020, 54601038, 8569957, [id number], 2883934 ####[facility] (DEFAULT)[address] [place] [address] 42735 Calcium, 24Hr Urine LCon Urine Total Volume LC Enter Here Invalid Interpretation Code [facility] Comment on above: Performed By: #### 2 [id number], [id number], [id number] ####[facility] (DEFAULT)[address] [place] [address] 77220 Creatinine Level Urine Timed on 06-22-2021 Time U Creatinine 24 hr Invalid Interpretation Code [facility] Comment on above: Performed By: #### 2 [id number], 77869988, [id number] ####[facility] (DEFAULT)[address] [place] [address] 69009 TV Creatinine 3800 mL Invalid Interpretation Code [facility] Comment on above: Performed By: #### 2 [id number], 98407387, [id number] ####[facility] (DEFAULT)[address] [place] [address] 49636 Ur Creatinine 37 mg/dL Invalid Interpretation Code [facility] Comment on above: Performed By: #### 2 [id number], 85847145, [id number] ####[facility] (DEFAULT)[address] [place] [address] 52997 [place] Creatinine 1406 mg/24hr Normal 600-1800 [facility] Comment on above: Performed By: #### 2 [id number], 28987733, [id number] ####[facility] (DEFAULT)[address] [place] [address] 00104 Magnesiumon 06-22-2021 Magnesium [Mass/Vol] 2.05 mg/dL Normal 1.80-2.50 [facility] Comment on above: Performed By: #### 1 5749555, 10368207, 6081024, [id number], 5570821 ####[facility] (DEFAULT)[address] [place] [address] 26093 Sodium Level Urine Timedon 0 06-22-2021 Time U Sodium 24 hr Invalid Interpretation Code [facility] Comment on above: Performed By: #### 2 [id number], 14889072, [id number] ####[facility] (DEFAULT)[address] [place] [address] 24894 TV Sodium 3800 mL Invalid Interpretation Code [facility] Comment on above: Performed By: #### 2 [id number], 45950026, [id number] ####[facility] (DEFAULT)[address] [place] [address] 12369 Ur Sodium 35 mmol Invalid Interpretation Code [facility] Comment on above: Performed By: #### 2 [id number], 56183148, [id number] ####[facility] (DEFAULT)[address] [place] [address] 64134 [place] Sodium 133 mmol/day Normal 130-200 [facility] Comment on above: Performed By: #### 2 [id number], 94614630, [id number] ####[facility] (DEFAULT)[address] [place] [address] 17674 Vit D25 OHon 06-22-2021 Vitamin D 25 OH 74 ng/mL Invalid Interpretation Code [facility] Comment on above: Result Comment: In , the Clinical Guidelines Subcommittee of the Endocrine Society Task Force established the guidelines below for recommended serum 25(OH) vitamin D levels. Vitamin D Status 25 (OH) Vitamin D Concentration Range (ng/mL) 25 (OH) Vitamin D Concentration Range (nmol/L) Deficient < 20 < 50 Insufficient 20 to < 30 50 to < 75 Sufficient 30 to 100 75 to 250 Upper Safety Limit >100 >250 Reference Laurie TRIMBLE et al. Evaluation, Treatment, and Prevention of Vitamin D Deficiency: An Endocrine Society Clinical Practice Guideline, J Clin Endocrinol Metab 2011; 96 (7): 2540-5426. Performed By: #### 1 [id number], 38950836, 4886149, [id number], 3312242 ####[facility] (DEFAULT)[address] [place] [address] 47563 A1C with Estimated Average G luon 06-12-2021 HbA1c (Bld) [Mass fraction] 6.9 % 4.3-5.6 [employer] Other HbA1c (Bld) [Mass fraction] 151 % [employer] Other Complete Blood Count Auto Di ffon 06-12-2021 Basophils (Bld) [#/Vol] 0.1 10*3/uL 0.0-0.2 [employer] Other Basophils/100 WBC (Bld) 1.3 % . [employer] Other Eosinophils (Bld) [#/Vol] 0.2 10*3/uL 0.0-0.45 [employer] Other Eosinophils/100 WBC (Bld) 3.2 % . [employer] Other Erythrocyte distribution width (RBC) [Ratio] 16.4 % 12.0-14.8 [employer] Other Hematocrit (Bld) [Volume fraction] 41.7 % 38.8-50.0 [employer] Other Hemoglobin (Bld) [Mass/Vol] 13.7 g/dL 13.0-17.0 [employer] Other Lymphocytes (Bld) [#/Vol] 0.8 10*3/uL 1.00-4.8 [employer] Other Lymphocytes/100 WBC (Bld) 11.2 % . [employer] Other MCH (RBC) [Entitic mass] 28.9 pg 27.5-35.2 [employer] Other MCH (RBC) [Entitic mass] 32.8 pg 32.5-35.6 [employer] Other MCV (RBC) [Entitic vol] 87.9 fL 83.5-101 [employer] Other Monocytes (Bld) [#/Vol] 1.0 10*3/uL 0.0-0.8 [employer] Other Monocytes/100 WBC (Bld) 13.4 % . [employer] Other Neutrophils (Bld) [#/Vol] 5.2 10*3/uL 1.8-7.7 [employer] Other Neutrophils/100 WBC (Bld) 70.9 % . [employer] Other Platelet mean volume (Bld) [Entitic vol] 7.1 fL 6.6-10.1 [employer] Other Platelets (Bld) [#/Vol] 255 10*3/uL 150-450 [facility] [employer] Other RBC (Bld) [#/Vol] 4.75 10*6/uL 3.90-5.60 [facility] [employer] Other WBC (Bld) [#/Vol] 7.4 10*3/uL 4.1-10.5 [facility] [employer] Other Complete Blood Count Auto Diff 7.4 4.5-11.0 [facility] [employer] Other Complete Blood Count Auto Diff 0.1 0-0.5 [facility] [employer] Other Comprehensive Metabolic Pane anny 06-12-2021 Albumin [Mass/Vol] 4.1 g/dL 3.2-5.5 [facility] [employer] Other Albumin/Globulin [Mass ratio] 1.5 {ratio} [facility] [employer] Other ALP [Catalytic activity/Vol] 73 U/L 32-92 [facility] [employer] Other ALT [Catalytic activity/Vol] 25 U/L 10-60 [facility] [employer] Other AST [Catalytic activity/Vol] 38 U/L 10-42 [facility] [employer] Other Bilirubin [Mass/Vol] 0.9 mg/dL 0.3-1.2 [facility] [employer] Other Calcium [Mass/Vol] 10.8 mg/dL 8.2-10.2 [employer] Other Chloride [Moles/Vol] 100 mmol/L 95-114 [facility] [employer] Other CO2 [Moles/Vol] 28.3 mmol/L 22.0-30.0 [facility] [employer] Other Creatinine [Mass/Vol] 1.26 mg/dL 0.64-1.27 [facility] [employer] Other Glucose [Mass/Vol] 104 mg/dL 70-100 [employer] Other Potassium [Moles/Vol] 4.0 mmol/L 3.5-5.1 [facility] [employer] Other Protein [Mass/Vol] 6.8 g/dL 6.1-7.9 [employer] Other Sodium [Moles/Vol] 137 mmol/L 136-146 [employer] Other Urea nitrogen [Mass/Vol] 29 mg/dL 9-23 [employer] Other Comprehensive Metabolic Panel 58 [employer] Other Comprehensive Metabolic Panel > 60 [employer] Other Comprehensive Metabolic Panel 2.7 [employer] Other Lipid Panelon 06-12-2021 Cholesterol [Mass/Vol] 161 mg/dL 140-200 [employer] Other Cholesterol in HDL [Mass/Vol] 51 mg/dL 29-71 [employer] Other Cholesterol in LDL Elph Qn 88 0-100 [employer] Other Cholesterol.total/Cho lesterol in HDL [Mass ratio] 3.2 {ratio} <5.0 [employer] Other Lipid Panel 112 35-149 [employer] Other Lipid Panel 22 [employer] Other Thyroid Stim Hormone w/Rflxo n 06-12-2021 Thyroid Stim Hormone w/Rflx 1.39 0.45-5.33 [employer] Other Outside Recordson 01-26-2021 Outside Records [id number]#[id number] FF [facility] Outside Records [id number]#[id number] FF Normal [facility] Tobacco Screening.on 021 Tobacco use status [facility]PH[facility] b) No -[facility] y [facility] DO Work Phone: Outside Recordson 01-13-2021 Outside Records [id number]#[id number] Normal [facility] CT Watchman Full Contraston 01-10-2021 CT Watchman Full Contrast FINAL REPORT Interpreted by: TRICIA REED MD and NANNETTE ALEJO E, MD 01/10/21 10:55 Patient Name: SANDRA POTTER STUDY: TH CT WATCHMAN FULL CONTRAST; 01/10/2021 8:49 am INDICATION: pre watchman procedure. COMPARISON: No Normal [facility] [address] [place] Work Phone: Laboratory - Chemistry and C hemistry - challengeon 01-10-2021 Glucose [Mass/Vol] 122 mg/dL above high threshold 74 - 99 [facility] [address] [place] Work Phone: No Panel Informationon 01-10 339 {SECONDS} above high threshold 89 - 169 [facility] [address] [place] Work Phone: Comment on above: Note new reference mary mullins as of 06/20/2018. Target ACT range will vary based on the patient population, clinical status, and surgical intervention occurring. [facility] [address] [place] Work Phone: [email or web address] [email or web address]?[id number]&Date=&Time=09%3a44%3a54%3a 00&TestType=ECG&Site=1&Out putType=PDF&Ext=PDF [facility] [address] [place] Work Phone: Atrial fibrillation with slow ventricular response [facility] [address] [place] Work Phone: [phone] Abnormal [facility] [address] [place] Work Phone: [phone] [facility] [address] [place] Work Phone: [phone] [facility] [address] [place] Work Phone: [phone] [facility] [address] [place] Work Phone: [phone] [facility] [address] [place] Work Phone: [phone] [facility] [address] [place] Work Phone: 58 [phone] [facility] [address] [place] Work Phone: [phone] [facility] [address] [place] Work Phone: [phone] [facility] [address] [place] Work Phone: [phone] [facility] [address] [place] Work Phone: 35 1 [facility] [address] [place] Work Phone: 48 1 [facility] [address] [place] Work Phone: [phone] Cult,Mycobacteriaon 10-11-19 21 Cult,Mycobacteria Specimen Description .BRONCHIAL ALVEOLAR LAVAGE Special Requests .RIGHT MIDDLE LOBE Direct Exam NO ACID FAST BACILLI SEEN (CONCENTRATED SMEAR) Culture NO GROWTH 45 DAYS Report Status FINAL 10/10/2020 Normal [facility] Comment on above: Performed By: #### A #### [facility] [employer] [address] [place] [address] 28[address] Hotel Assistant Manager: Chi Layne MD Cult,Funguson 09-26-2020 Cult,Fungus Specimen Description .BRONCHIAL ALVEOLAR LAVAGE Special Requests .RIGHT MIDDLE LOBE Culture NO GROWTH 32 DAYS Report Status FINAL 09/26/2020 [facility] Comment on above: Performed By: #### F C #### [facility] [address] [place] [address] [phone] Hotel Assistant Manager: Chi Layne MD Viral Respiratory Culton Viral Respiratory Cult Specimen Description .BRONCHIAL ALVEOLAR LAVAGE Special Requests .RIGHT MIDDLE LOBE Culture NEGATIVE. No Herpes Simplex Virus detected by Enzyme Linked Virus Inducible System culture. at day 2 NEGATIVE for Influenza A and B, Para influenza 1,2,3, Adenovirus and RSV. at day 2 Negative results do not preclude respiratory virus infection and should not be used as the sole basis for diagnosis, treatment or other management decisions. NEGATIVE for Cytomegalovirus at day 3 NEGATIVE for Enterovirus at day 5 Report Status FINAL 08/31/2020 Normal [facility] Comment on above: Performed By: #### V RESPC #### [facility] [employer] [address] [place] [address] [phone] Hotel Assistant Manager: Chi Layne MD Cult,Respiratoryon Cult,Respiratory Specimen Description .BRONCHIAL ALVEOLAR LAVAGE Special Requests .RIGHT MIDDLE LOBE Direct Exam MODERATE NEUTROPHILS NO BACTERIA SEEN Culture STAPHYLOCOCCUS AUREUS <10,000 CFU/ML Susceptibility testing not performed on low colony count organisms. Report Status FINAL 08/27/2020 [facility] Comment on above: Performed By: #### R ESPC #### [facility] [employer] [address] [place] [address] [phone] Hotel Assistant Manager: Chi Layne MD Cytology, Non-GynOrdered By: Ulisses Nieves on 08-25-2020 [employer] Phone: Specimen Description .BRONCHIAL ALVEOLAR LAVAGE [employer] Phone: Comment on above: [facility] [employer] Phone: [facility] (NOTE) -- Diagnosis -- RIGHT MIDDLE LOBE BAL: NEGATIVE FOR MALIGNANCY. Hyun Muhammad Electronically Signed Out rdd/08/26/2020 Clinical Information Hemostasis, interstitial lung disease, history of Amiodarone therapy. Source of Specimen 1: RIGHT MIDDLE LOBE BAL Gross Description RIGHT MIDDLE LOBE BAL 65.0 mL cloudy colorless fluid. MICROSCOPIC DESCRIPTION Sample consists mostly of histiocytes and alveolar pneumocytes with smaller numbers of lymphocytes and rare neutrophils. Histiocytes do not show prominent foamy changes/vacuolization to suggest amiodarone toxicity. There are no viral inclusions. Microbial pathogens are not identified in the study. Microbial cultures are pending. NONGYNECOLOGICAL CYTOPATHOLOGY CONSULTATION Patient Name: SANDRA POTTER [facility] Rec: [id number] Path Number: [id number] [facility] [employer] [facility] ANATOMIC PATHOLOGY [address] [place] [address]. [place], [place] [address] Normal [facility] Comment on above: Performed By: #### P PPVS #### [address] [phone] Hotel Assistant Manager: Chi Layne MD Non-Open Developer Operator Cytologyon 1 Case No: [id number] Normal [facility] Comment on above: Performed By: #### N BAG MACHINE SET UP OPERATOR #### [address] [phone] Hotel Assistant Manager: Chi Layne MD Specimen Description .BRONCHIAL ALVEOLAR LAVAGE Normal [facility] Comment on above: Result Comment: RML Performed By: #### N BAG MACHINE SET UP OPERATOR #### [address] [id number] Hotel Assistant Manager: Chi Layne MD POC Glucose FingerstickOrder ed By: Ulisses Nieves on 08-25-2020 Glucose [Mass/Vol] 121 mg/dL High 75 - 110 mg/dL [employer] Phone: Interpretation and review of laboratory results Abnormal [employer] Phone: [employer] Phone: COVID-19Ordered By: Justin reyes on 07-24-2020 SARS-CoV-2 (COVID-19) RNA EMILY+probe Ql (Unsp spec) [employer] Phone: SARS-CoV-2 (COVID-19) RNA EMILY+probe Ql (Unsp spec) Not detected Not Detected [employer] Phone: Comment on above: The specimen is NEGATIVE for SARS-CoV-2, the novel coronavirus associated with COVID-19. A negative result does not rule out COVID-19. Robbie SARS-CoV-2 for use on the [employer]/8800 Systems is a real-time RT-PCR test intended for the qualitative detection of nucleic acids from SARS-CoV-2 in clinician-collected nasal, nasopharyngeal, and oropharyngeal swab specimens from individuals who meet COVID-19 clinical and/or epidemiological criteria. Robbie SARS-CoV-2 is for use only under Emergency Use Authorization (EUA) in laboratories certified under Clinical Laboratory Improvement Amendments of 1988 (CLIA), 42 U.S.C. 263a, that meet requirements to perform high or moderate complexity tests. An individual without symptoms of COVID-19 and who is not shedding SARS-CoV-2 virus would expect to have a negative (not detected) result in this assay. Fact sheet for Healthcare Providers: https://www.fda.gov/media/289175/download Fact sheet for Patients: https://www.fda.gov/media/962752/download METHODOLOGY: RT-PCR Source .NASOPHARYNGEAL SWAB [employer] Phone: [id number] 07-24-2020 SARS-CoV-2 (COVID-19) RNA EMILY+probe Ql (Unsp spec) Normal [facility] Comment on above: Performed By: #### C OVID #### [facility] [address] [place] [address] [id number] Hotel Assistant Manager: Chi Layne MD SARS-CoV-2 (COVID-19) RNA EMILY+probe Ql (Unsp spec) Not detected [facility] Comment on above: Result Comment: The specimen is NEGATIVE for SARS-CoV-2, the novel coronavirus associated with COVID-19. A negative result does not rule out COVID-19. Robbie SARS-CoV-2 for use on the [employer] 6800/8800 Systems is a real-time RT-PCR test intended for the qualitative detection of nucleic acids from SARS-CoV-2 in clinician-collected nasal, nasopharyngeal, and oropharyngeal swab specimens from individuals who meet COVID-19 clinical and/or epidemiological criteria. Robbie SARS-CoV-2 is for use only under Emergency Use Authorization (EUA) in laboratories certified under Clinical Laboratory Improvement Amendments of 1988 (CLIA), 42 U.S.C. ?263a, that meet requirements to perform high or moderate complexity tests. An individual without symptoms of COVID-19 and who is not shedding SARS-CoV-2 virus would expect to have a negative (not detected) result in this assay. Fact sheet for Healthcare Providers: https://www.fda.gov/media/289519/download Fact sheet for Patients: https://www.fda.gov/media/598250/download METHODOLOGY: RT-PCR Performed By: #### C OVID #### [address] [address] Hotel Assistant Manager: Chi Layne MD SARS-CoV-2 (COVID-19) RNA EMILY+probe Ql (Unsp spec) .NASOPHARYNGEAL SWAB Normal [facility] Comment on above: Performed By: #### C OVID #### [facility] [employer] [address] [place] [address] 48[address] Hotel Assistant Manager: Chi Layne MD [id number] 07-04-2020 SARS-CoV-2 (COVID-19) RNA EMILY+probe Ql (Unsp spec) Normal [facility] Comment on above: Performed By: #### C OVID #### [facility] [employer] [address] [place] [address] 54[address] Hotel Assistant Manager: Chi Layne MD SARS-CoV-2 (COVID-19) RNA EMILY+probe Ql (Unsp spec) Detected Abnormal NOTDET [facility] Comment on above: Result Comment: The specimen is POSITIVE for SARS-Cov-2, the novel coronavirus associated with COVID-19. Robbie SARS-CoV-2 for use on the [employer]00/8800 Systems is a real-time RT-PCR test intended for the qualitative detection of nucleic acids from SARS-CoV-2 in clinician-collected nasal, nasopharyngeal, and oropharyngeal swab specimens from individuals who meet COVID-19 clinical and/or epidemiological criteria. Robbie SARS-CoV-2 is for use only under Emergency Use Authorization (EUA) in laboratories certified under Clinical Laboratory Improvement Amendments of 1988 (CLIA), 42 U.S.C. ?263a, that meet requirements to perform high or moderate complexity tests. An individual without symptoms of COVID-19 and who is not shedding SARS-CoV-2 virus would expect to have a negative (not detected) result in this assay. Fact sheet for Healthcare Providers: https://www.fda.gov/media/485902/download Fact sheet for Patients: https://www.fda.gov/media/099500/download METHODOLOGY: RT-PCR Results reported to the appropriate Health Department Performed By: #### C OVID #### [facility] [address] [place] [address] [phone] Hotel Assistant Manager: Chi Layne MD [id number] 07-03-2020 SARS-CoV-2 (COVID-19) RNA EMILY+probe Ql (Unsp spec) .NASOPHARYNGEAL SWAB Normal [facility] Comment on above: Performed By: #### C OVID #### [facility] [employer] [address] [place] [address] [phone] Hotel Assistant Manager: Chi Layne MD Albumin [Mass/volume] in Ser um or Plasmaon 05-04-2020 Albumin [Mass/Vol] 3.7 g/dL 3.2-5.5 [facility] Automated basophil %on 05-04 Basophils/100 WBC (Bld) 0.7 % [facility] Automated basophil counton 0 05-04-2020 Basophils (Bld) [#/Vol] 0.0 10*3/uL 0.0-0.2 [facility] Automated blood lymphocyte c ount (number/volume)on 05-04-2020 Lymphocytes (Bld) [#/Vol] 0.6 10*3/uL 1.00-4.8 [facility] Automated blood lymphocyte c ount as percentage of total leukocyteson 05-04-2020 Lymphocytes/100 WBC (Bld) 10.4 % [facility] Automated blood monocyte cou nton 05-04-2020 Monocytes (Bld) [#/Vol] 0.7 10*3/uL 0.0-0.8 [facility] Automated blood platelet cou nt (count/volume)on 05-04-2020 Platelets (Bld) [#/Vol] 175 10*3/uL 150-450 [facility] Automated blood platelet meenakshi n volume measurementon 05-04-2020 Platelet mean volume (Bld) [Entitic vol] 8.1 fL 6.6-10.1 [facility] Automated eosinophil %on Eosinophils/100 WBC (Bld) 3.7 % [facility] Automated eosinophil counton 05-04-2020 Eosinophils (Bld) [#/Vol] 0.2 10*3/uL 0.0-0.45 [facility] Automated erythrocyte distri bution width ratioon 05-04-2020 Erythrocyte distribution width (RBC) [Ratio] 16.3 % 12.0-14.8 [facility] Automated erythrocyte mean c orpuscular hemoglobin (mass per erythrocyte)on 05-04-2020 MCH (RBC) [Entitic mass] 29.3 pg 27.5-35.2 [facility] Automated erythrocyte mean c orpuscular hemoglobin concentration measurement (mass/volon 05-04-2020 [facility] (RBC) [Mass/Vol] 33.2 g/dL 32.5-35.6 [facility] Automated erythrocyte mean c orpuscular volumeon 05-04-2020 MCV (RBC) [Entitic vol] 88.0 fL 83.5-101 [facility] Automated monocyte %on 05-04 Monocytes/100 WBC (Bld) 12.1 % [facility] Automated neutrophil %on Neutrophils/100 WBC (Bld) 73.1 % [facility] Blood erythrocytes automated count (number/volume)on 05-04-2020 RBC (Bld) [#/Vol] 4.85 10*6/uL 3.90-5.60 [facility] Blood hemoglobin measurement (mass/volume)on 05-04-2020 Hemoglobin (Bld) [Mass/Vol] 14.2 g/dL 13.0-17.0 [facility] Blood leukocytes automated c ount (number/volume)on 05-04-2020 WBC (Bld) [#/Vol] 6.2 10*3/uL 4.5-11.0 [facility] Blood neutrophil count by au tomated method (number/volume)on 05-04-2020 Neutrophils (Bld) [#/Vol] 4.5 10*3/uL 1.8-7.7 [facility] Estimated glomerular filtrat ion rate (GFR) non- Americanon 05-04-2020 GFR/1.73 sq M predicted among non-blacks MDRD (S/P/Bld) [Vol rate/Area] 47 mL/min/{1.73_m2} [facility] Hematocrit [Volume Fraction] of Blood by Automated counton 05-04-2020 Hematocrit (Bld) [Volume fraction] 42.7 % 38.8-50.0 [facility] Otheron 05-04-2020 GFR/1.73 sq M.predicted MDRD (S/P/Bld) [Vol rate/Area] 57 mL/min/{1.73_m2} [facility] Comment on above: GFR estimated refere nce range: According to KDOQI guidelines, <60 ml/min/1.73m2 is sufficient to diagnose a patient with chronic kidney disease. Nucleated RBC/100 WBC (Bld) [Ratio] 0.0 % 0-0.5 [facility] Creatinine Clearance (Chem 68.68 [facility] Protein [Mass/volume] in Ser um or Plasmaon 05-04-2020 Protein [Mass/Vol] 6.5 g/dL 6.1-7.9 [facility] Serum globulin measurement b y calculation (mass/volume)on 05-04-2020 Globulin (S) [Mass/Vol] 2.8 g/dL [facility] Serum or plasma alanine bartholomew otransferase measurement without P-5'-P (enzymatic activion 05-04-2020 ALT No additional P-5'-P [Catalytic activity/Vol] 19 U/L 10-60 [facility] Serum or plasma albumin/glob ulin mass ratioon 05-04-2020 Albumin/Globulin [Mass ratio] 1.3 {ratio} [facility] Serum or plasma alkaline dorothea sphatase measurement (enzymatic activity/volume)on 05-04-2020 ALP [Catalytic activity/Vol] 92 U/L 32-92 [facility] Serum or plasma aspartate am inotransferase measurement (enzymatic activity/volume)on 05-04-2020 AST [Catalytic activity/Vol] 24 U/L 10-42 [facility] Serum or plasma calcium victor m urement (mass/volume)on 05-04-2020 Calcium [Mass/Vol] 10.5 mg/dL 8.2-10.2 [facility] Serum or plasma chloride meenakshi surement (moles/volume)on 05-04-2020 Chloride [Moles/Vol] 104 mmol/L 95-114 [facility] Serum or plasma creatinine m easurement with calculation of estimated glomerular filtron 05-04-2020 Creatinine [Mass/Vol] 1.50 mg/dL 0.64-1.27 [facility] Serum or plasma glucose victor m urement (mass/volume)on 05-04-2020 Glucose [Mass/Vol] 119 mg/dL 70-100 [facility] Comment on above: ADA recommended refe rence rangeRandom Glucose Reference Range is dependent on time and content of last meal. Glucose of more than 200 mg/dL in a nonstressed, ambulatory subject supports the diagnosis of Diabetes Mellitus. Serum or plasma potassium me asurement (moles/volume)on 05-04-2020 Potassium [Moles/Vol] 5.3 mmol/L 3.5-5.1 [facility] Serum or plasma sodium measu rement (moles/volume)on 05-04-2020 Sodium [Moles/Vol] 139 mmol/L 136-146 [facility] Serum or plasma total biliru bin measurement (mass/volume)on 05-04-2020 Bilirubin [Mass/Vol] 0.9 mg/dL 0.3-1.2 [facility] Serum or plasma total carbon dioxide measurement (moles/volume)on 05-04-2020 CO2 [Moles/Vol] 27.8 mmol/L 22.0-30.0 [facility] Serum or plasma urea nitroge n measurement (mass/volume)on 05-04-2020 Urea nitrogen [Mass/Vol] 26 mg/dL 9 [facility] 25-hydroxyvitamin D [Mass/Vo l]on 11-20-2019 25-Hydroxyvitamin D2+25-Hydroxyvitamin D3 [Mass/Vol] 57 ng/mL . [facility] Comment on above: Reference Range:All Ages: Target levels 30 - 100 Reference Range: All Ages: Target levels 30 - 100 25-hydroxyvitamin D2 [Mass/V ol]on 11-20-2019 25-Hydroxycalciferol [Mass/Vol] <1.0 ng/mL . [facility] Comment on above: This test was develo ped and its performance characteristicsdetermined by [facility]. It has not been cleared or approvedby the Food and Drug Administration. This test was develo ped and its performance characteristics determined by [facility]. It has not been cleared or approved by the Food and Drug Administration. 25-hydroxyvitamin D3 [Mass/V ol]on 11-20-2019 Calcidiol [Mass/Vol] 57 ng/mL . [facility] Comment on above: This test was develo ped and its performance characteristicsdetermined by [facility]. It has not been cleared or approvedby the Food and Drug Administration.Performed at: [facility] [id number] [place], [place] [id number] Director: Prasanna Damian MD, Phone: [phone] This test was develo ped and its performance characteristics determined by [facility]. It has not been cleared or approved by the Food and Drug Administration. Performed at: [facility] [address] [place], [place] [id number] Hotel Assistant Manager: Prasanna Damian MD, Phone: [phone] IgA [Mass/volume] in Serum o r Plasmaon 11-20-2019 IgA [Mass/Vol] 337 mg/dL 61-437 [facility] IgG [Mass/volume] in Serum o r Plasmaon 11-20-2019 IgG [Mass/Vol] 1002 mg/dL 603-1613 [facility] IgM [Mass/volume] in Serum o r Plasmaon 11-20-2019 IgM [Mass/Vol] 55 mg/dL 20-172 [facility] Comment on above: Performed at: [facility] [address] [id number] Director: Mauro Sharma PhD, Phone: [phone] Performed at: [facility] [address] [id number] Hotel Assistant Manager: Mauro Sharma PhD, Phone: [phone] Immunoglobulin light chains. kappa.free [Mass/volume] in Serumon 11-20-2019 Immunoglobulin light chains.kappa.free (S) [Mass/Vol] 26.1 mg/L 3.3-19.4 [facility] Immunoglobulin light chains. kappa.free/Immunoglobulin light chains.lambda.free [Teddy 11-20-2019 Immunoglobulin light chains.kappa.free/Imm unoglobulin light chains.lambda.free (S) [Mass ratio] 1.09 0.26-1.65 [facility] Comment on above: Performed at: [facility] [address] [id number] Director: Mauro Sharma PhD, Phone: [phone] Performed at: [facility] [address] [id number] Hotel Assistant Manager: Mauro Sharma PhD, Phone: [phone] Immunoglobulin light chains. lambda.free [Mass/volume] in Serum or Plasmaon 11-20-2019 Immunoglobulin light chains.lambda.free [Mass/Vol] 24.0 mg/L 5.7-26.3 [facility] Otheron 11-20-2019 Serum Immunofixation Comment: . [facility] Comment on above: Presence of monoclon al protein is unclear at this time. Suggestrepeat in 3 to 6 months if clinically indicated. Presence of monoclon al protein is unclear at this time. Suggest repeat in 3 to 6 months if clinically indicated. Serum or plasma intact parat hyroid hormone measurement (mass/volume)on 11-20-2019 Parathyrin.intact [Mass/Vol] 35.4 pg/mL [facility] Hematologyon 11-10-2019 WBC (Bld) [#/Vol] 6.2 10*3/uL 4.5-11.0 [facility] CT CHEST HIGH RESOLUTIONOrde red By: Alfonso Wesley on 03-30-2019 Extensive ground-gla ss opacities are seen, lower lobe predominant with bilateral lower lobe septal thickening. These findings likely represent pulmonary edema. There are additional areas of superimposed intrapulmonary opacity which may represent associated focal airspace disease such as pneumonia, including 2 peripheral areas of consolidation in the right lower lobe. A neoplastic process is considered less likely. Scattered likely infectious or inflammatory nodules are seen in the upper lobes. Mild emphysematous changes are noted. Heavy atherosclerotic calcifications. Mild prominence of subcarinal lymph nodes, which may be reactive in nature. Attention on follow-up is recommended. Recommend follow-up CT scan of the chest in 3-4 months time following treatment to ensure resolution of the focal areas of consolidative change. The findings were sent to the Radiology Results Communication [facility] at 9:47 am on 03/30/2019to be communicated to a licensed caregiver. [employer] Phone: EXAMINATION: CT IMAG ES OF THE CHEST WITHOUT CONTRAST, HIGH RESOLUTION 03/30/2019 TECHNIQUE: CT of the chest was performed without the administration of intravenous contrast. High resolution CT imaging was performed of the lungs. Multiplanar reformatted images are provided for review. Dose modulation, iterative reconstruction, and/or weight based adjustment of the mA/kV was utilized to reduce the radiation dose to as low as reasonably achievable. High resolution CT images were performed in the supine inspiration, supine expiration, and prone inspiration positions. COMPARISON: None HISTORY: ORDERING SYSTEM PROVIDED HISTORY: Cough TECHNOLOGIST PROVIDED HISTORY: Reason for Exam: cough, SOB Acuity: Unknown Type of Exam: Unknown Additional signs and symptoms: PT STATES HEMOPTYSIS, COUGHING UP MUCOUS, SOB, POSS BRONCHITIS Relevant Medical/Surgical History: NO SURGERIES TO AREA FINDINGS: Mediastinum: Heavy atherosclerotic calcifications about the coronary arteries. Calcifications are noted about the mitral valve region. Mild prominence of subcarinal lymph nodes. HRCT Findings/Lungs/pleura: No definite pleural effusion is appreciated. Mild centrilobular type emphysematous changes are seen in the upper lobes. In the bilateral lower lobes, there are ground-glass opacities bilaterally. Smooth interlobular septal thickening is noted. A few nonspecific ground-glass opacities are seen scattered in the upper lobes as well. A few scattered possibly infectious or inflammatory type airways nodules are seen. Areas of focal patchy consolidative change are seen in the posterior aspect of the right lower lobe, for example series 4, image 60. Volume loss noted within the inferior lingula. Minor patchy consolidative changes are seen in the lateral segment of the right middle lobe. Images were obtained during expiration and compared to inspiration images. No definite pattern of air trapping is identified. Upper Abdomen: Limited evaluation without acute finding. Surgical changes are noted about the bowel. Soft Tissues/Bones: No axillary adenopathy is appreciated. No suspicious bony lesion identified. Moderate spurring about the disc spaces of the thoracic spine. Marked degenerative changes about the inferior aspect of the right bony glenoid. [employer] Work Phone: César, pn Incoming R adiant Results From [employer] - 03/30/2019 9:12 PM EST EXAMINATION: CT IMAGES OF THE CHEST WITHOUT CONTRAST, HIGH RESOLUTION 03/30/2019 TECHNIQUE: CT of the chest was performed without the administration of intravenous contrast. High resolution CT imaging was performed of the lungs. Multiplanar reformatted images are provided for review. Dose modulation, iterative reconstruction, and/or weight based adjustment of the mA/kV was utilized to reduce the radiation dose to as low as reasonably achievable. High resolution CT images were performed in the supine inspiration, supine expiration, and prone inspiration positions. COMPARISON: None HISTORY: ORDERING SYSTEM PROVIDED HISTORY: Cough TECHNOLOGIST PROVIDED HISTORY: Reason for Exam: cough, SOB Acuity: Unknown Type of Exam: Unknown Additional signs and symptoms: PT STATES HEMOPTYSIS, COUGHING UP MUCOUS, SOB, POSS BRONCHITIS Relevant Medical/Surgical History: NO SURGERIES TO AREA FINDINGS: Mediastinum: Heavy atherosclerotic calcifications about the coronary arteries. Calcifications are noted about the mitral valve region. Mild prominence of subcarinal lymph nodes. HRCT Findings/Lungs/pleura: No definite pleural effusion is appreciated. Mild centrilobular type emphysematous changes are seen in the upper lobes. In the bilateral lower lobes, there are ground-glass opacities bilaterally. Smooth interlobular septal thickening is noted. A few nonspecific ground-glass opacities are seen scattered in the upper lobes as well. A few scattered possibly infectious or inflammatory type airways nodules are seen. Areas of focal patchy consolidative change are seen in the posterior aspect of the right lower lobe, for example series 4, image 60. Volume loss noted within the inferior lingula. Minor patchy consolidative changes are seen in the lateral segment of the right middle lobe. Images were obtained during expiration and compared to inspiration images. No definite pattern of air trapping is identified. Upper Abdomen: Limited evaluation without acute finding. Surgical changes are noted about the bowel. Soft Tissues/Bones: No axillary adenopathy is appreciated. No suspicious bony lesion identified. Moderate spurring about the disc spaces of the thoracic spine. Marked degenerative changes about the inferior aspect of the right bony glenoid. IMPRESSION: Extensive ground-glass opacities are seen, lower lobe predominant with bilateral lower lobe septal thickening. These findings likely represent pulmonary edema. There are additional areas of superimposed intrapulmonary opacity which may represent associated focal airspace disease such as pneumonia, including 2 peripheral areas of consolidation in the right lower lobe. A neoplastic process is considered less likely. Scattered likely infectious or inflammatory nodules are seen in the upper lobes. Mild emphysematous changes are noted. Heavy atherosclerotic calcifications. Mild prominence of subcarinal lymph nodes, which may be reactive in nature. Attention on follow-up is recommended. Recommend follow-up CT scan of the chest in 3-4 months time following treatment to ensure resolution of the focal areas of consolidative change. The findings were sent to the Radiology Results Communication Center at 9:47 am on 03/30/2019to be communicated to a licensed caregiver. [employer] Phone: XR CHEST STANDARD (2 VW)Orde red By: Alfonso Wesley on 03-30-2019 No focal airspace consolidation or edema. [employer] Phone: EXAMINATION: TWO XRA Y VIEWS OF THE CHEST 03/30/2019 9:53 am COMPARISON: 04/25/2006 HISTORY: ORDERING SYSTEM PROVIDED HISTORY: SOB (shortness of breath) TECHNOLOGIST PROVIDED HISTORY: Reason for Exam: SOB (shortness of breath) R06.02 (ICD-10-CM); Hemoptysis R04.2 (ICD-10-CM) FINDINGS: The lungs are without acute focal process. No effusion or pneumothorax. The cardiomediastinal silhouette is normal. The osseous structures are intact without acute process. [employer] Phone: César, Mhpn Incoming R adiant Results From [employer] - 03/30/2019 10:12 AM EST EXAMINATION: TWO XRAY VIEWS OF THE CHEST 03/30/2019 9:53 am COMPARISON: 04/25/2006 HISTORY: ORDERING SYSTEM PROVIDED HISTORY: SOB (shortness of breath) TECHNOLOGIST PROVIDED HISTORY: Reason for Exam: SOB (shortness of breath) R06.02 (ICD-10-CM); Hemoptysis R04.2 (ICD-10-CM) FINDINGS: The lungs are without acute focal process. No effusion or pneumothorax. The cardiomediastinal silhouette is normal. The osseous structures are intact without acute process. IMPRESSION: No focal airspace consolidation or edema. [employer] Phone: Lactate dehydrogenase measur ement (enzymatic activity/volume)on 01-24-2019 LDH (Unsp spec) [Catalytic activity/Vol] 178 U/L 45-190 [facility] Serum or plasma thyroid stim ulating hormone (TSH) measurement by high sensitivity meton 01-31-2018 TSH Qn 4.94 u[iU]/mL 0.45-5.33 [facility] TSH DL <= 0.005 mIU/L Qnon 1 04-02-2017 TSH Qn 4.94 m[IU]/L 0.45-5.33 [facility] Basic Metabolic Panelon 09-15 Anion gap 10 mmol/L Normal 10-20 [facility] Comment on above: Performed By: #### 1 [id number] ####[facility] [address] [place] [address] Bicarbonate (HCO3) 30 mmol/L Normal 21-32 [facility] Comment on above: Performed By: #### 1 [id number] ####[facility] [address] [place] [address] BUN/Creatinine Ratio 22 mg/mg Normal 5-25 [facility] Comment on above: Performed By: #### 1 [id number] ####[facility] [address] [place] [address] Calcium 9.6 mg/dL Normal 8.6-10.3 [facility] Comment on above: Performed By: #### 1 [id number] ####[facility] [address] [place] [address] Chloride 108 mmol/L High 98-107 [facility] Comment on above: Performed By: #### 1 [id number] ####[facility] [address] [place] [address] Creatinine 1.60 mg/dL High 0.50-1.30 [facility] Comment on above: Performed By: #### 1 [id number] ####[facility] [address] [place] [address] eGFR (MDRD) 44 mL/min/{1.73_m2} Normal [facility] Comment on above: Result Comment: Inte rpretation for Chronic Kidney Disease:Stages 1&2 >60 Healthy or potential kidney damage.Mild decrease of GFR.Stage 3 30-59 Moderate decrease of GFR.Stage 4 15-29 Severe decrease of GFR.Stage 5 <15 Kidney failure or on dialysis. Performed By: #### 1 [id number] ####[facility] [address] [place] [address] Glucose mass conc 141 mg/dL High 70-100 [facility] Comment on above: Performed By: #### 1 [id number] ####[facility] [address] [place] [address] Potassium molar conc 4.7 mmol/L Normal 3.5-5.1 [facility] Comment on above: Performed By: #### 1 [id number] ####[facility] [address] [place] [address] Sodium 143 mmol/L Normal 136-145 [facility] Comment on above: Performed By: #### 1 [id number] ####[facility] [address] [facility] [place] [address] Urea nitrogen 36 mg/dL High 6-23 [facility] Comment on above: Performed By: #### 1 [id number] ####[facility] [address] [place] [address] Prothrombin Timeon 8 INR Coag RelTime (PPP) 1.68 {INR} High 0.90-1.10 [facility] Comment on above: Result Comment: NATHAN DOE NOTE NEW REFERENCE RANGE EFFECTIVE 2017 Performed By: #### 3 [id number] ####[facility] [address] [place] [address] Prothrombin time (PT) Coag time (PPP) 18.7 s High 9.8-12.7 [facility] Comment on above: Result Comment: NATHAN DOE NOTE NEW REFERENCE RANGE EFFECTIVE 2017 Performed By: #### 3 [id number] ####[facility] [address] [place] [address] Basic Metabolic Panelon 07-0 Anion gap 14 mmol/L Normal 10-20 [facility] Comment on above: Performed By: #### 1 [id number] ####[facility] [address] [place] [address] Bicarbonate (HCO3) 32 mmol/L Normal 21-32 [facility] Comment on above: Performed By: #### 1 [id number] ####[facility] [address] [place] [address] BUN/Creatinine Ratio 20 mg/mg Normal 5-25 [facility] Comment on above: Performed By: #### 1 [id number] ####[facility] [address] [place] [address] Calcium 9.7 mg/dL Normal 8.6-10.3 [facility] Comment on above: Performed By: #### 1 [id number] ####[facility] [address] [place] [address] Chloride 102 mmol/L Normal 98-107 [facility] Comment on above: Performed By: #### 1 [id number] ####[facility] [address] [place] [address] Creatinine 1.73 mg/dL High 0.50-1.30 [facility] Comment on above: Performed By: #### 1 [id number] ####[facility] [address] [place] [address] eGFR (MDRD) 40 mL/min/{1.73_m2} Normal [facility] Comment on above: Result Comment: Inte rpretation for Chronic Kidney Disease:Stages 1&2 >60 Healthy or potential kidney damage.Mild decrease of GFR.Stage 3 30-59 Moderate decrease of GFR.Stage 4 15-29 Severe decrease of GFR.Stage 5 <15 Kidney failure or on dialysis. Performed By: #### 1 [id number] ####[facility] [address] [place] [address] Glucose mass conc 104 mg/dL High 70-100 [facility] Comment on above: Performed By: #### 1 [id number] ####[facility] [address] [place] [address] Potassium molar conc 3.4 mmol/L Low 3.5-5.1 [facility] Comment on above: Performed By: #### 1 [id number] ####[facility] [address] [facility] [place] [address] Sodium 145 mmol/L Normal 136-145 [facility] Comment on above: Performed By: #### 1 [id number] ####[facility] [address] [facility] [place] [address] Urea nitrogen 34 mg/dL High 6-23 [facility] Comment on above: Performed By: #### 1 [id number] ####[facility] [address] [facility] [place] [address] Prothrombin Timeon 8 INR Coag RelTime (PPP) 1.32 {INR} High 0.90-1.10 [facility] Comment on above: Result Comment: NATHAN DOE NOTE NEW REFERENCE RANGE EFFECTIVE 2017 Performed By: #### 3 [id number] ####[facility] [address] [facility] [place] [address] Prothrombin time (PT) Coag time (PPP) 14.7 s High 9.8-12.7 [facility] Comment on above: Result Comment: PLEDiane DOE NOTE NEW REFERENCE RANGE EFFECTIVE 2017 Performed By: #### 3 [id number] ####[facility] [address] [place] [address] Basic Metabolic Panelon 09-0 Anion gap 13 mmol/L Normal 10-20 [facility] Comment on above: Performed By: #### 1 [id number] ####[facility] [address] [facility] [place] [address] Bicarbonate (HCO3) 31 mmol/L Normal 21-32 [facility] Comment on above: Performed By: #### 1 [id number] ####[facility] [address] [place] [address] BUN/Creatinine Ratio 20 mg/mg Normal 5-25 [facility] Comment on above: Performed By: #### 1 [id number] ####[facility] [address] [facility] [place] [address] Calcium 9.7 mg/dL Normal 8.6-10.3 [facility] Comment on above: Performed By: #### 1 [id number] ####[facility] [address] [facility] [place] [address] Chloride 102 mmol/L Normal 98-107 [facility] Healthcare Comment on above: Performed By: #### 1 [id number] ####[facility] [address] [facility] [place] [address] Creatinine 1.79 mg/dL High 0.50-1.30 [facility] Comment on above: Performed By: #### 1 [id number] ####[facility] [address] [place] [address] eGFR (MDRD) 39 mL/min/{1.73_m2} Normal [facility] Comment on above: Result Comment: Inte rpretation for Chronic Kidney Disease:Stages 1&2 >60 Healthy or potential kidney damage.Mild decrease of GFR.Stage 3 30-59 Moderate decrease of GFR.Stage 4 15-29 Severe decrease of GFR.Stage 5 <15 Kidney failure or on dialysis. Performed By: #### 1 [id number] ####[facility] [address] [place] [address] Glucose mass conc 138 mg/dL High 70-100 [facility] Comment on above: Performed By: #### 1 [id number] ####[facility] [address] [place] [place] [address] Potassium molar conc 3.7 mmol/L Normal 3.5-5.1 [facility] Healthcare Comment on above: Performed By: #### 1 [id number] ####[facility] [address] [place] [address] Sodium 142 mmol/L Normal 136-145 [facility] Healthcare Comment on above: Performed By: #### 1 [id number] ####[facility] [address] [place] [address] Urea nitrogen 36 mg/dL High 6-23 [facility] Comment on above: Performed By: #### 1 [id number] ####[place] [place] [address] Prothrombin Timeon 7 INR Coag RelTime (PPP) 1.58 {INR} High 0.85-1.16 [facility] Comment on above: Result Comment: Coum geovanny Therapy:1.5 - 2.0 Low Intensity Therapy2.0 - 3.0 Moderate Intensity Therapy2.5 - 3.5 High (1) Intensity Therapy3.0 - 4.0 High (2) Intensity Therapy Performed By: #### 3 [id number] ####[address] [address] Prothrombin time (PT) Coag time (PPP) 18.9 s High 11.3-14.5 [facility] Healthcare Comment on above: Performed By: #### 3 [id number] ####[address] [place] [address] CBCon 11-07-2016 Erythrocyte distribution width Auto Ratio (RBC) 15.0 % Normal 12.0-15.4 [facility] Healthcare Comment on above: Performed By: #### 2 [id number] ####[facility] [address] [place] [address] Erythrocytes (RBC) 4.77 10*6/uL Normal 4.08-6.37 [facility] Healthcare Comment on above: Performed By: #### 2 [id number] ####[address] [place] [address] Hematocrit (HCT) 43.9 % Normal 38.4-54.9 [facility] Healthcare Comment on above: Performed By: #### 2 [id number] ####[facility] Wwb[address] [place] [address] Hemoglobin mass conc (Bld) 14.9 g/dL Normal 12.8-17.7 [facility] Healthcare Comment on above: Performed By: #### 2 [id number] ####[facility] Sps[address] [place] [address] MCH 31.2 pg Normal 27.5-32.9 [facility] Healthcare Comment on above: Performed By: #### 2 [id number] ####[facility] V[address] [place] [address] MCHC mass conc (RBC) 33.9 g/dL Normal 30.5-35.4 [facility] Healthcare Comment on above: Performed By: #### 2 [id number] ####[facility] Nyd[address] [place] [address] MCV 92.0 fL Normal 83.3-98.2 [facility] Healthcare Comment on above: Performed By: #### 2 [id number] ####[facility] Xhs[address] [place] [address] NRBC Absolute 0.00 10*3/uL Normal [facility] Healthcare Comment on above: Performed By: #### 2 [id number] ####[facility] Pcs[address] [place] [address] NRBC Automated 0.0 /100{WBCs} Normal [facility] Healthcare Comment on above: Performed By: #### 2 [id number] ####[facility] Brb[address] [place] [address] Platelet mean volume (PMV) 9.8 fL Low 9.9-12.1 [facility] Healthcare Comment on above: Performed By: #### 2 [id number] ####[facility] Hsn[address] [place] [address] Platelets 197 10*3/uL Normal 155-404 [facility] Healthcare Comment on above: Performed By: #### 2 [id number] ####[facility] Squ[address] [place] [address] RDW SD 50.7 fL High 39.3-48.6 [facility] Healthcare Comment on above: Performed By: #### 2 [id number] ####[facility] Gog[address] [place] [address] WBC (Leukocytes) 5.2 10*3/uL Normal 4.2-11.0 [facility] Comment on above: Performed By: #### 2 [id number] ####[facility] Mbj[address] [place] [place] [address] Comprehensive Metabolic Pane anny 11-07-2016 Alanine aminotransferase (ALT) 30 U/L Normal 10-52 [facility] Comment on above: Performed By: #### 1 [id number] ####[facility] Gty[address] [place] [address] Albumin 4.5 g/dL Normal 3.4-5.0 [facility] Comment on above: Performed By: #### 1 [id number] ####[facility] Dhj[address] [place] [address] Albumin/Globulin Ratio 1.5 {ratio} Normal 0.9-2.4 [facility] Healthcare Comment on above: Performed By: #### 1 [id number] ####[facility] Zra[address] [place] [address] Alkaline phosphatase (ALP) 92 U/L Normal 45-117 [facility] Comment on above: Performed By: #### 1 [id number] ####[facility] Gwa[address] [place] [place] [address] Anion gap 12 mmol/L Normal 10-20 [facility] Comment on above: Performed By: #### 1 [id number] ####[facility] [address] [place] [address] Aspartate aminotransferase (AST) 33 U/L Normal 13-39 [facility] Comment on above: Performed By: #### 1 [id number] ####[facility] Enl[address] [place] [address] Bicarbonate (HCO3) 33 mmol/L High 21-32 [facility] Comment on above: Performed By: #### 1 [id number] ####[facility] [address] [place] [address] Bilirubin (total) 1.2 mg/dL Normal 0.0-1.2 [facility] Comment on above: Performed By: #### 1 [id number] ####[facility] [address] [facility] [place] [address] BUN/Creatinine Ratio 26 mg/mg High 5-25 [facility] Healthcare Comment on above: Performed By: #### 1 [id number] ####[facility] [address] [facility] [place] [address] Calcium 10.2 mg/dL Normal 8.6-10.3 [facility] Healthcare Comment on above: Performed By: #### 1 [id number] ####[facility] [address] [facility] [place] [address] Chloride 100 mmol/L Normal 98-107 [facility] Healthcare Comment on above: Performed By: #### 1 [id number] ####[facility] [address] [place] [address] Creatinine 1.76 mg/dL High 0.50-1.30 [facility] Healthcare Comment on above: Performed By: #### 1 [id number] ####[facility] [address] [place] [address] eGFR (MDRD) 40 mL/min/{1.73_m2} Normal [facility] Healthcare Comment on above: Result Comment: Inte rpretation for Chronic Kidney Disease:Stages 1&2 >60 Healthy or potential kidney damage.Mild decrease of GFR.Stage 3 30-59 Moderate decrease of GFR.Stage 4 15-29 Severe decrease of GFR.Stage 5 <15 Kidney failure or on dialysis. Performed By: #### 1 [id number] ####[facility] [address] [facility] [place] [address] Glucose mass conc 139 mg/dL High 70-100 [facility] Healthcare Comment on above: Performed By: #### 1 [id number] ####[facility] [address] [facility] [place] [address] Potassium molar conc 3.2 mmol/L Low 3.5-5.1 [facility] Healthcare Comment on above: Performed By: #### 1 [id number] ####[facility] [address] [facility] [place] [address] Protein 7.6 g/dL Normal 6.4-8.2 [facility] Healthcare Comment on above: Performed By: #### 1 [id number] ####[facility] [address] [place] [address] Sodium 142 mmol/L Normal 136-145 [facility] Comment on above: Performed By: #### 1 [id number] ####[facility] [address] [place] [address] Urea nitrogen 46 mg/dL High 6-23 [facility] Comment on above: Performed By: #### 1 [id number] ####[facility] [address] [place] [address] Lipid Panelon 11-07-2016 Cholesterol 169 mg/dL Normal <200 [facility] Comment on above: Performed By: #### 1 [id number] ####[facility] [address] [place] [address] Cholesterol in VLDL mass conc 30 mg/dL Abnormal <30 [facility] Comment on above: Performed By: #### 1 [id number] ####[facility] [address] [place] [address] Cholesterol to HDL Ratio 3.1 {ratio} Normal [facility] Comment on above: Performed By: #### 1 [id number] ####[facility] [address] [place] [address] HDL Cholesterol 55 mg/dL Normal [facility] Comment on above: Result Comment: Norm al Mod Risk High Risk5-9 >48 42-48 <4210- 14 >45 40-45 <4015-19 >38 34-38 <34Adult >39 Performed By: #### 1 [id number] ####[facility] [address] [place] [address] LDL Cholesterol 84 mg/dL Normal <130 [facility] Comment on above: Performed By: #### 1 [id number] ####[facility] [address] [place] [address] Triglyceride 152 mg/dL Abnormal <150 [facility] Comment on above: Result Comment: 150- 199 Borderline Uabn750-331 High>500 Very High Performed By: #### 1 [id number] ####[facility] [address] [facility] [place] [address] Vital Signs Date Time Vital Sign Value Performing Clinician Facility 04-04-2023 11:30-0500 Body height 180.34 cm Geeta Dumont Other [facility] Other 04-04-2023 11:30-0500 Body mass index (BMI) [Ratio] 35.84 kg/m2 Geeta Dumont Other [facility] Other 04-04-2023 11:30-0500 Body weight 116.58 kg Geeta Dumont Other [facility] Other 04-04-2023 11:30-0500 Diastolic blood pressure 88 mm[Hg] Geeta Dumont Other [facility] Other 04-04-2023 11:30-0500 Systolic blood pressure 140 mm[Hg] Geeta Dumont Other [facility] Other 03-20-2023 13:00-0500 Body height 180.34 cm Geeta Dumont Other [facility] Other 03-20-2023 13:00-0500 Body mass index (BMI) [Ratio] 35.98 kg/m2 Geeta Dumont Other [facility] Other 03-20-2023 13:00-0500 Body weight 117.03 kg Geeta Dumont Other [facility] Other 03-20-2023 13:00-0500 Diastolic blood pressure 86 mm[Hg] Geeta Dumont Other [facility] Other 03-20-2023 13:00-0500 SaO2% (BldA) [Mass fraction] 100 % Geeta Tim Other [facility] Other 03-20-2023 13:00-0500 Systolic blood pressure 144 mm[Hg] Geeta Awaisr Other [facility] Other 03-05-2023 11:30-0500 Body height 180.34 cm Geeta Tim Other [facility] Other 03-05-2023 11:30-0500 Body mass index (BMI) [Ratio] 34.86 kg/m2 Geeta Tim Other [facility] Other 03-05-2023 11:30-0500 Body weight 113.4 kg Geeta Tim Other [facility] Other 03-05-2023 11:30-0500 Diastolic blood pressure 84 mm[Hg] Geeta Tim Other [facility] Other 03-05-2023 11:30-0500 SaO2% (BldA) [Mass fraction] 99 % Geeta Dumont Other [facility] Other 03-05-2023 11:30-0500 Systolic blood pressure 150 mm[Hg] Geeta Dumont Other [facility] Other 02-26-2023 11:48-0500 Body height 180.34 cm DO Gonsalvesew Aundrea Work Phone: [facility] 02-26-2023 11:48-0500 Body mass index (BMI) [Ratio] 34 kg/m2 DO Teri Aragon Work Phone: [facility] 02-26-2023 11:48-0500 Body weight 110.67 kg DO Teri Aragon Work Phone: [facility] 02-26-2023 11:27-0500 Body temperature 97.5 [degF] DO Teri Aragon Work Phone: [facility] 02-26-2023 11:27-0500 Diastolic blood pressure 94 mm[Hg] DO Teri Aragon Work Phone: [facility] 02-26-2023 11:27-0500 Heart rate 82 /min DO Teri Aragon Work Phone: [facility] 02-26-2023 11:27-0500 Respiratory rate 20 /min DO Teri Aragon Work Phone: [facility] 02-26-2023 11:27-0500 Systolic blood pressure 187 mm[Hg] DO Teri Aragon Work Phone: [facility] 02-21-2023 16:20-0500 Body height 180.34 cm Mina Reilly Other [facility] Other 02-21-2023 16:20-0500 Body mass index (BMI) [Ratio] 34.75 kg/m2 Mina Reilly Other [facility] Other 02-21-2023 16:20-0500 Body temperature 96.2 [degF] Mina Reilly Other [facility] Other 02-21-2023 16:20-0500 Body weight 113.04 kg Mina Reilly Other [facility] Other 02-21-2023 16:20-0500 Diastolic blood pressure 68 mm[Hg] Mina Reilly Other [facility] Other 02-21-2023 16:20-0500 Respiratory rate 18 /min Mina Reilly Other [facility] Other 02-21-2023 16:20-0500 SaO2% (BldA) [Mass fraction] 98 % Mina Reilly Other [facility] Other 02-21-2023 16:20-0500 Systolic blood pressure 109 mm[Hg] Mina Reilly Other [facility] Other 02-18-2023 09:00-0500 Body height 180.34 cm Ingrissamy Rivasratil Other [facility] Other 02-18-2023 09:00-0500 Body mass index (BMI) [Ratio] 34.17 kg/m2 Ingris Navratil Other [facility] Other 02-18-2023 09:00-0500 Body weight 111.13 kg Ingris Navratil Other [facility] Other 02-18-2023 09:00-0500 Diastolic blood pressure 82 mm[Hg] Ingris Navratil Other [facility] Other 02-18-2023 09:00-0500 SaO2% (BldA) [Mass fraction] 96 % Ingris Navratil Other [facility] Other 02-18-2023 09:00-0500 Systolic blood pressure 132 mm[Hg] Ingris Navratil Other [facility] [employer] Other 02-15-2023 12:00-0500 Diastolic blood pressure 87 mm[Hg] DO Teri Aragon Work Phone: [facility] 02-15-2023 12:00-0500 Heart rate 77 /min DO Teri Aragon Work Phone: [facility] 02-15-2023 12:00-0500 Respiratory rate 18 /min DO Teri Aragon Work Phone: [facility] 02-15-2023 12:00-0500 SaO2% (BldA) [Mass fraction] 98 % DO Teri Aragon Work Phone: [facility] 02-15-2023 12:00-0500 Systolic blood pressure 152 mm[Hg] DO Teri Aragon Work Phone: [facility] 02-15-2023 08:00-0500 Body temperature 98.5 [degF] DO Teri Aragon Work Phone: [facility] 02-14-2023 21:00-0500 Inhaled oxygen flow rate 6 L/min DO Teri Aragon Work Phone: [facility] 02-14-2023 13:47-0500 Body height 181.61 cm DO Teri Aragon Work Phone: [facility] 02-14-2023 13:47-0500 Body mass index (BMI) [Ratio] 33.6 kg/m2 DO Teri Aragon Work Phone: [facility] 02-14-2023 13:47-0500 Body weight 111 kg DO Teri Aragon Work Phone: [facility] 02-10-2023 12:33-0500 Diastolic blood pressure 75 mm[Hg] [facility] 02-10-2023 12:33-0500 Heart rate 75 /min [facility] 02-10-2023 12:33-0500 Respiratory rate 16 /min [facility] 02-10-2023 12:33-0500 SaO2% (BldA) [Mass fraction] 98 % [facility] 02-10-2023 12:33-0500 Systolic blood pressure 138 mm[Hg] [facility] 02-10-2023 08:00-0500 Body temperature 98 [degF] [facility] 02-10-2023 06:00-0500 Body weight 110 kg [facility] 02-08-2023 15:35-0500 Body height 180.34 cm [facility] 02-06-2023 20:00-0500 Diastolic blood pressure 76 mm[Hg] [facility] 02-06-2023 20:00-0500 Heart rate 35 /min [facility] 02-06-2023 20:00-0500 Respiratory rate 16 /min [facility] 02-06-2023 20:00-0500 SaO2% (BldA) [Mass fraction] 98 % [facility] 02-06-2023 20:00-0500 Systolic blood pressure 139 mm[Hg] [facility] 02-06-2023 17:31-0500 Body height 180.34 cm [facility] 02-06-2023 17:31-0500 Body weight 117.2 kg [facility] 02-06-2023 12:32-0500 Body temperature 97 [degF] [facility] 11-27-2022 14:33-0400 Body temperature 97.9 [degF] GOLDEN Dumont Work Phone: [facility] 11-27-2022 14:33-0400 Body weight 113.39 kg GOLDEN Dumont Work Phone: [facility] 11-27-2022 14:33-0400 Diastolic blood pressure 75 mm[Hg] GOLDEN Dumont Work Phone: [facility] 11-27-2022 14:33-0400 Heart rate 67 /min JOINTER OPERATOR Geeta Reedacher Work Phone: [facility] 11-27-2022 14:33-0400 Respiratory rate 16 /min JOINTER OPERATOR Geeta Reedacher Work Phone: [facility] 11-27-2022 14:33-0400 SaO2% (BldA) [Mass fraction] 100 % JOINTER OPERATOR Geeta Reedacher Work Phone: [facility] 11-27-2022 14:33-0400 Systolic blood pressure 144 mm[Hg] JOINTER OPERATOR Geeta Reedacher Work Phone: [facility] 10-11-2022 14:00-0400 Body height 180.34 cm Geeta Tim Other [facility] Other 10-11-2022 14:00-0400 Body mass index (BMI) [Ratio] 34.31 kg/m2 Geeta Tim Other [facility] Other 10-11-2022 14:00-0400 Body weight 111.59 kg Geeta Carringtonrick Other [facility] Other 10-11-2022 14:00-0400 Diastolic blood pressure 82 mm[Hg] Geeta Dumont Other [facility] Other 10-11-2022 14:00-0400 SaO2% (BldA) [Mass fraction] 97 % Geeta Dumont Other [facility] Other 10-11-2022 14:00-0400 Systolic blood pressure 132 mm[Hg] Geeta Dumont Other [facility] Other 09-28-2022 06:55-0400 Body height 182.88 cm JOINTER OPERATOR Geeta Tim Work Phone: [facility] 09-28-2022 06:55-0400 Body weight 108.86 kg JOINTER OPERATOR Geeta Tim Work Phone: [facility] 09-12-2022 09:00-0400 Body height 180.34 cm Geeta Dumont Other [facility] [employer] Other 09-12-2022 09:00-0400 Body mass index (BMI) [Ratio] 35.56 kg/m2 Geeta Dumont Other [employer] Other 09-12-2022 09:00-0400 Body weight 115.67 kg Geeta Dumont Other [facility] [employer] Other 09-12-2022 09:00-0400 Diastolic blood pressure 70 mm[Hg] Geeta Dumont Other [employer] Other 09-12-2022 09:00-0400 SaO2% (BldA) [Mass fraction] 97 % Geeta Dumont Other [employer] Other 09-12-2022 09:00-0400 Systolic blood pressure 124 mm[Hg] Geeta Dumont Other [employer] Other 09-07-2022 09:27-0400 Body height 180.34 cm Teri Aragon Work Phone: [facility] [address] DO Work Phone: 09-07-2022 09:27-0400 Body mass index (BMI) [Ratio] 35.64 kg/m2 Teri Aragon Work Phone: [facility] [address] DO Work Phone: 09-07-2022 09:27-0400 Body surface area Derived from formula 2.34 m2 Teri Aragon Work Phone: [facility] [address] DO Work Phone: 09-07-2022 09:27-0400 Body weight 115.89 kg Teri Contreras Netoalirio Work Phone: [facility] [address] DO Work Phone: 09-07-2022 09:27-0400 Diastolic blood pressure 60 mm[Hg] Teri Aragon Work Phone: [facility] [address] DO Work Phone: 09-07-2022 09:27-0400 Heart rate 58 /min Teri Aragon Work Phone: [facility]of[address] DO Work Phone: 09-07-2022 09:27-0400 Systolic blood pressure 120 mm[Hg] Teri Aragon Work Phone: [facility] [address] DO Work Phone: 09-04-2022 08:40-0400 Body height 180.34 cm Sabino Ding Other [employer] [facility] [employer] Other 09-04-2022 08:40-0400 Body mass index (BMI) [Ratio] 35.28 kg/m2 Sabino Ding Other [facility] Other 09-04-2022 08:40-0400 Body weight 114.76 kg Sabino Ding Other [facility] Other 06-20-2023 08:40-0400 Diastolic blood pressure 76 mm[Hg] Sabino Toña Other [facility] Other 09-04-2022 08:40-0400 Systolic blood pressure 140 mm[Hg] Sabino Ding Other [employer] Other 08-28-2022 08:00-0400 Body height 180.34 cm Geeta Dumont Other [employer] Other 08-28-2022 08:00-0400 Body mass index (BMI) [Ratio] 35.28 kg/m2 Geeta Dumont Other [facility] Other 08-28-2022 08:00-0400 Body weight 114.76 kg Geeta Dumont Other [facility] Other 08-28-2022 08:00-0400 Diastolic blood pressure 82 mm[Hg] Geeta Dumont Other [facility] Other 08-28-2022 08:00-0400 SaO2% (BldA) [Mass fraction] 97 % Geeta Dumont Other [employer] Other 08-28-2022 08:00-0400 Systolic blood pressure 162 mm[Hg] Geeta Dumont Other [facility] Other 07-24-2022 08:39-0400 Diastolic blood pressure 75 mm[Hg] GOLDEN Dumont Work Phone: [facility] 07-24-2022 08:39-0400 Heart rate 74 /min GOLDEN Dumont Work Phone: [facility] 07-24-2022 08:39-0400 Respiratory rate 16 /min JOINTER OPERATORMelecio Carringtonrbacher Work Phone: [facility] 07-24-2022 08:39-0400 SaO2% (BldA) [Mass fraction] 98 % JOINTER OPERATOR Geeta Charissarbacher Work Phone: [facility] 07-24-2022 08:39-0400 Systolic blood pressure 147 mm[Hg] JOINTER OPERATORMelecio Reedacher Work Phone: [facility] 07-24-2022 08:00-0400 Inhaled oxygen flow rate 3 L/min JOINTER OPERATORMelecio Reedacher Work Phone: [facility] 07-24-2022 07:12-0400 Body height 180.34 cm JOINTER OPERATORMelecio Reedacher Work Phone: [facility] 07-24-2022 07:12-0400 Body temperature 97.7 [degF] JOINTER OPERATORMelecio FernandesGeeta Derekacher Work Phone: [facility] 07-24-2022 07:12-0400 Body weight 104.32 kg JOINTER OPERATORMelecio FernandesGeeta Derekacher Work Phone: [facility] 06-05-2022 09:38-0400 Diastolic blood pressure 71 mm[Hg] JOINTER OPERATORMelecio Reedacher Work Phone: [facility] 06-05-2022 09:38-0400 Heart rate 53 /min JOINTER OPERATORMelecio FernandesGeeta Derekacher Work Phone: [facility] 06-05-2022 09:38-0400 Respiratory rate 16 /min JOINTER OPERATORMelecio Reedacher Work Phone: [facility] 06-05-2022 09:38-0400 SaO2% (BldA) [Mass fraction] 98 % JOINTER OPERATORMelecio Reedacher Work Phone: [facility] 06-05-2022 09:38-0400 Systolic blood pressure 129 mm[Hg] JOINTER OPERATORMelecio Reedacher Work Phone: [facility] 06-05-2022 09:00-0400 Inhaled oxygen flow rate 3 L/min JOINTER OPERATORMelecio Carringtonrbacher Work Phone: [facility] 06-05-2022 07:49-0400 Body height 181.61 cm JOINTER OPERATORMelecio Reedacher Work Phone: [facility] 06-05-2022 07:49-0400 Body weight 102.05 kg JOINTER OPERATORMelecio Reedacher Work Phone: [facility] 05-08-2022 10:30-0500 Diastolic blood pressure 74 mm[Hg] JOINTER OPERATORMelecio Reedacher Work Phone: [facility] 05-08-2022 10:30-0500 Heart rate 55 /min JOINTER OPERATORMelecio Reedacher Work Phone: [facility] 05-08-2022 10:30-0500 Respiratory rate 16 /min JOINTER OPERATORMelecio Reedacher Work Phone: [facility] 05-08-2022 10:30-0500 SaO2% (BldA) [Mass fraction] 97 % JOINTER OPERATORMelecio Reedacher Work Phone: [facility] 05-08-2022 10:30-0500 Systolic blood pressure 134 mm[Hg] JOINTER OPERATORMelecio Reedacher Work Phone: [facility] 05-08-2022 09:51-0500 Inhaled oxygen flow rate 3 L/min JOINTER OPERATORMelecio Reedacher Work Phone: [facility] 05-08-2022 08:56-0500 Body height 182.88 cm JOINTER OPERATORMelecio Reedacher Work Phone: [facility] 05-08-2022 08:56-0500 Body temperature 97.7 [degF] JOINTER OPERATORMelecio Dumont Work Phone: [facility] 05-08-2022 08:56-0500 Body weight 106.59 kg JOINTER OPERATORMelecio Reedacher Work Phone: [facility] 04-26-2022 11:00-0500 Body height 180.34 cm Lavon Sandoval Other [employer] Other 04-26-2022 11:00-0500 Body mass index (BMI) [Ratio] 32.07 kg/m2 Lavon Sandoval Other [facility] Other 04-26-2022 11:00-0500 Body weight 104.33 kg Lavon Sandoval Other [facility] Other 04-03-2022 11:08-0500 Diastolic blood pressure 85 mm[Hg] GOLDEN Dumont Work Phone: [facility] 04-03-2022 11:08-0500 Heart rate 66 /min JOINTER OPERATORMelecio Reedachemary Work Phone: [facility] 04-03-2022 11:08-0500 Respiratory rate 18 /min JOINTER OPERATORMelecio Dumont Work Phone: [facility] 04-03-2022 11:08-0500 SaO2% (BldA) [Mass fraction] 98 % JOINTER OPERATORMelecio Reedacher Work Phone: [facility] 04-03-2022 11:08-0500 Systolic blood pressure 137 mm[Hg] GOLDEN Reedachemary Work Phone: [facility] 04-03-2022 08:11-0500 Body height 180.34 cm GOLDEN Dumont Work Phone: [facility] 04-03-2022 08:11-0500 Body temperature 98 [degF] JOINTER OPERATOR Geeta Tim Work Phone: [facility] 04-03-2022 08:11-0500 Body weight 108.86 kg JOINTER OPERATOR Geeta Carringtonrick Work Phone: [facility] 04-02-2022 12:30-0500 Body height 180.34 cm Geeta Dumont Other [employer] Other 04-02-2022 12:30-0500 Body mass index (BMI) [Ratio] 33.19 kg/m2 Geeta Dumont Other [employer] Other 04-02-2022 12:30-0500 Body temperature 98.2 [degF] Geeta Dumont Other [employer] Other 04-02-2022 12:30-0500 Body weight 107.96 kg Geeta Dumont Other [employer] Other 04-02-2022 12:30-0500 Diastolic blood pressure 70 mm[Hg] Geeta Dumont Other [employer] Other 04-02-2022 12:30-0500 Respiratory rate 18 /min Geeta Dumont Other [employer] Other 04-02-2022 12:30-0500 SaO2% (BldA) [Mass fraction] 98 % Geeta Dumont Other [employer] Other 04-02-2022 12:30-0500 Systolic blood pressure 122 mm[Hg] Geeta Dumont Other [facility] [employer] Other 01-25-2022 09:52-0500 Body height 180.34 cm Teri Diane Duquealirio Work Phone: [facility] 250 DO Work Phone: 01-25-2022 09:52-0500 Body mass index (BMI) [Ratio] 33.33 kg/m2 Teri Diane Duquealirio Work Phone: [facility] 250 DO Work Phone: 01-25-2022 09:52-0500 Body surface area Derived from formula 2.27 m2 Teri Diane Duquealirio Work Phone: [facility] 250 DO Work Phone: 01-25-2022 09:52-0500 Body weight 108.41 kg Teri Diane Aundrea Work Phone: [facility] 250 DO Work Phone: 01-25-2022 09:52-0500 Diastolic blood pressure 70 mm[Hg] Teri Diane Duquealirio Work Phone: [facility] 250 DO Work Phone: 01-25-2022 09:52-0500 Heart rate 52 /min Teri Diane Cedillobjorn Work Phone: [facility] 250 DO Work Phone: 01-25-2022 09:52-0500 Systolic blood pressure 122 mm[Hg] Teri Harperruss Work Phone: [facility] 250 DO Work Phone: 12-21-2021 09:07-0400 Body height 182.88 cm [facility] 12-21-2021 09:07-0400 Body mass index (BMI) [Ratio] 31.8 kg/m2 PHYSICIAN NO [facility] 12-21-2021 09:07-0400 Body weight 106.59 kg PHYSICIAN NO [facility] 12-21-2021 08:34-0400 Body temperature 97.2 [degF] PHYSICIAN NO [facility] 12-21-2021 08:34-0400 Diastolic blood pressure 94 mm[Hg] PHYSICIAN NO [facility] 12-21-2021 08:34-0400 Heart rate 73 /min PHYSICIAN NO [facility] 12-21-2021 08:34-0400 Respiratory rate 18 /min PHYSICIAN NO [facility] 12-21-2021 08:34-0400 Systolic blood pressure 172 mm[Hg] PHYSICIAN NO [facility] 12-15-2021 09:00-0400 Body height 180.34 cm Geeta Dumont Other [employer] [facility] [employer] Other 12-15-2021 09:00-0400 Body mass index (BMI) [Ratio] 32.35 kg/m2 Geeta Dumont Other [employer] Other 12-15-2021 09:00-0400 Body weight 105.24 kg Geeta Dumont Other [employer] Other 12-15-2021 09:00-0400 Diastolic blood pressure 77 mm[Hg] Geeta Dumont Other [employer] Other 12-15-2021 09:00-0400 SaO2% (BldA) [Mass fraction] 97 % Geeta Dumont Other [employer] Other 12-15-2021 09:00-0400 Systolic blood pressure 135 mm[Hg] Geeta Dumont Other [employer] Other 11-27-2021 11:30-0400 Body height 180.34 cm Geeta Tim Other [employer] Other 11-27-2021 11:30-0400 Body mass index (BMI) [Ratio] 32.35 kg/m2 Geeta Tim Other [employer] Other 11-27-2021 11:30-0400 Body weight 105.24 kg Geeta Tim Other [employer] Other 11-27-2021 11:30-0400 Diastolic blood pressure 80 mm[Hg] Geeta Tim Other [employer] Other 11-27-2021 11:30-0400 SaO2% (BldA) [Mass fraction] 97 % Geeta Tim Other [employer] Other 11-27-2021 11:30-0400 Systolic blood pressure 110 mm[Hg] Geeta Tim Other [employer] Other 11-10-2021 09:32-0400 Body height 182.88 cm DO Francisco Li Work Phone: [facility] 11-10-2021 09:32-0400 Body temperature 97.6 [degF] DO Francisco Li Work Phone: [facility] 11-10-2021 09:32-0400 Body weight 106.45 kg DO Francisco Li Work Phone: [facility] 11-10-2021 09:32-0400 Diastolic blood pressure 86 mm[Hg] DO Francisco Li Work Phone: [facility] 11-10-2021 09:32-0400 Heart rate 51 /min DO Francisco Li Work Phone: [facility] 11-10-2021 09:32-0400 Respiratory rate 18 /min DO Francisco Li Work Phone: [facility] 11-10-2021 09:32-0400 SaO2% (BldA) [Mass fraction] 97 % DO Francisco Li Work Phone: [facility] 11-10-2021 09:32-0400 Systolic blood pressure 164 mm[Hg] DO Francisco Li Work Phone: [facility] 10-30-2021 11:30-0400 Body height 180.34 cm Geeta Dumont Other [employer] [facility] [employer] Other 10-30-2021 11:30-0400 Body mass index (BMI) [Ratio] 33.05 kg/m2 Geeta Dumont Other [employer] Other 10-30-2021 11:30-0400 Body weight 107.5 kg Geeta Dumont Other [employer] Other 10-30-2021 11:30-0400 Diastolic blood pressure 64 mm[Hg] Geeta Dumont Other [employer] Other 10-30-2021 11:30-0400 Systolic blood pressure 110 mm[Hg] Geeta Dumont Other [employer] Other 09-24-2021 16:00-0400 Body temperature 98.5 [degF] DO Francisco Li Work Phone: [facility] 09-24-2021 16:00-0400 Diastolic blood pressure 70 mm[Hg] DO Francisco Li Work Phone: [facility] 09-24-2021 16:00-0400 Heart rate 61 /min DO Francisco Li Work Phone: [facility] 09-24-2021 16:00-0400 SaO2% (BldA) [Mass fraction] 97 % DO Francisco Li Work Phone: [facility] 09-24-2021 16:00-0400 Systolic blood pressure 122 mm[Hg] DO Francisco Li Work Phone: [facility] 09-24-2021 12:00-0400 Respiratory rate 16 /min DO Francisco Li Work Phone: [facility] 09-24-2021 05:44-0400 Body weight 105.3 kg DO Francisco Li Work Phone: [facility] 09-23-2021 21:30-0400 Inhaled oxygen flow rate 6 L/min DO Francisco Li Work Phone: [facility] 09-22-2021 15:07-0400 Body height 180.34 cm DO Francisco Li Work Phone: [facility] 09-22-2021 15:07-0400 Body mass index (BMI) [Ratio] 32.8 kg/m2 DO Francisco Li Work Phone: [facility] 09-06-2021 00:00-0400 93 1 No PCP None [facility] 250 DO Work Phone: Comment on above: [id number] 08-22-2021 14:00-0400 Body height 180.34 cm Geeta Dumont Other [employer] Other 08-22-2021 14:00-0400 Body mass index (BMI) [Ratio] 32.49 kg/m2 Geeta Dumont Other [employer] Other 08-22-2021 14:00-0400 Body weight 105.69 kg Geeta Ernandezmary Other [employer] Other 08-22-2021 14:00-0400 Diastolic blood pressure 70 mm[Hg] Geeta Carringtonritaacher Other [employer] Other 08-22-2021 14:00-0400 SaO2% (BldA) [Mass fraction] 99 % Geeta Derekacher Other [employer] Other 08-22-2021 14:00-0400 Systolic blood pressure 120 mm[Hg] Geeta Derekacher Other [employer] Other 06-12-2021 09:30-0400 Body height 180.34 cm Geeta Awaisr Other [employer] Other 06-12-2021 09:30-0400 Body mass index (BMI) [Ratio] 33.61 kg/m2 Geeta Awaisr Other [employer] Other 06-12-2021 09:30-0400 Body weight 109.32 kg Geeta Awaisr Other [employer] Other 06-12-2021 09:30-0400 Diastolic blood pressure 80 mm[Hg] Geeta Derekacher Other [employer] Other 06-12-2021 09:30-0400 SaO2% (BldA) [Mass fraction] 98 % Geeta Derekacher Other [employer] Other 06-12-2021 09:30-0400 Systolic blood pressure 118 mm[Hg] Geeta Tim Other [facility] [employer] Other 01-25-2021 08:49-0500 Body height 180.34 cm Francisco Li Work Phone: [facility] 250 DO Work Phone: 01-25-2021 08:49-0500 Body mass index (BMI) [Ratio] 33.89 kg/m2 Francisco Li Work Phone: [facility] 250 DO Work Phone: 01-25-2021 08:49-0500 Body surface area Derived from formula 2.29 m2 Francisco Li Work Phone: [facility] 250 DO Work Phone: 01-25-2021 08:49-0500 Body weight 110.22 kg Francisco Li Work Phone: [facility] 250 DO Work Phone: 01-25-2021 08:49-0500 Diastolic blood pressure 76 mm[Hg] Francisco Li Work Phone: [facility] 250 DO Work Phone: 01-25-2021 08:49-0500 Heart rate 51 /min Francisco Li Work Phone: [facility] 250 DO Work Phone: 01-25-2021 08:49-0500 Systolic blood pressure 140 mm[Hg] Francisco Li Work Phone: [facility] 250 DO Work Phone: 12-07-2020 09:07-0400 Diastolic blood pressure 71 mm[Hg] Francisco Li Work Phone: MY-Xbvbnqkrrx-CTQ [facility] [address] [place] Work Phone: 12-07-2020 09:07-0400 Systolic blood pressure 133 mm[Hg] Francisco Li Work Phone: FV-Kljyprzlrk-AAM [facility] [address] [place] Work Phone: 12-07-2020 09:05-0400 Body height 180.34 cm Francisco Li Work Phone: XI-Dgjafwmjlu-INY [facility] [address] [place] Work Phone: 12-07-2020 09:05-0400 Body mass index (BMI) [Ratio] 34.73 kg/m2 Francisco Li Work Phone: FC-Bypvnvjbva-UYG [facility] [address] [place] Work Phone: 12-07-2020 09:05-0400 Body surface area Derived from formula 2.31 m2 Francisco Li Work Phone: QN-Ynrrziwtvp-AOV [facility] [address] [place] Work Phone: 12-07-2020 09:05-0400 Body temperature 96.6 [degF] Francisco Li Work Phone: FL-Erigunmvee-BEI [facility] [address] [place] Work Phone: 12-07-2020 09:05-0400 Body weight 112.95 kg Francisco Li Work Phone: JZ-Haxvzkxdxt-YQZ [facility] [address] [place] Work Phone: 12-07-2020 09:05-0400 Diastolic blood pressure 76 mm[Hg] Francisco Li Work Phone: ER-Lwdhrnzmyy-DTJ [facility] [address] [place] Work Phone: 12-07-2020 09:05-0400 Heart rate 63 /min Francisco Li Work Phone: OD-Tudfhqmgim-QLM [facility] [address] [place] Work Phone: 12-07-2020 09:05-0400 Respiratory rate 16 /min Francisco Li Work Phone: BO-Fpfmmntubb-SNX [employer] [address] [place] Work Phone: 12-07-2020 09:05-0400 SaO2% (BldA) [Mass fraction] 96 % Francisco Li Work Phone: HB-Mwgcivqmrv-WSW [employer] [address] [place] Work Phone: 12-07-2020 09:05-0400 Systolic blood pressure 137 mm[Hg] Francisco Li Work Phone: PN-Ypjdfvlarg-NLV [employer] [address] [place] Work Phone: 08-25-2020 14:00-0400 Diastolic blood pressure 93 mm[Hg] Ulisses Nieves MD Work Phone: [employer] Work Phone: 08-25-2020 14:00-0400 Heart rate 64 /min Ulisses Nieves MD Work Phone: [employer] Work Phone: 08-25-2020 14:00-0400 Respiratory rate 10 /min Ulisses Nieves MD Work Phone: [employer] Work Phone: 08-25-2020 14:00-0400 SaO2% (BldA) [Mass fraction] 96 % Ulisses Nieves MD Work Phone: [employer] Work Phone: 08-25-2020 14:00-0400 Systolic blood pressure 133 mm[Hg] Ulisses Nieves MD Work Phone: [employer] Work Phone: 08-25-2020 13:29-0400 Body temperature 97 [degF] Ulisses Nieves MD Work Phone: [employer] Work Phone: 08-25-2020 11:17-0400 Body height 182.9 cm Ulisses Nieves MD Work Phone: [employer] Work Phone: 08-25-2020 11:17-0400 Body mass index (BMI) [Ratio] 33.23 kg/m2 Ulisses Nieves MD Work Phone: [employer] Work Phone: 08-25-2020 11:17-0400 Body weight 111.13 kg Ulisses Nieves MD Work Phone: [employer] Work Phone: 08-22-2020 14:29-0400 Body height 182.9 cm [facility] [employer] Phone: 08-22-2020 14:29-0400 Body mass index (BMI) [Ratio] 33.23 kg/m2 [facility] [employer] Phone: 08-22-2020 14:29-0400 Body temperature 96.4 [degF] [facility] [employer] Phone: 08-22-2020 14:29-0400 Body weight 111.13 kg [facility] [employer] Phone: 08-22-2020 14:29-0400 Diastolic blood pressure 70 mm[Hg] [facility] [employer] Phone: 08-22-2020 14:29-0400 Heart rate 48 /min [facility] [employer] Phone: 08-22-2020 14:29-0400 Respiratory rate 20 /min [facility] [employer] Phone: 08-22-2020 14:29-0400 SaO2% (BldA) [Mass fraction] 97 % [facility] [employer] Phone: 08-22-2020 14:29-0400 Systolic blood pressure 132 mm[Hg] [facility] [employer] Phone: 05-12-2020 09:18-0500 Body Temperature 97.6 [degF] [facility] 05-12-2020 09:18-0500 Body weight 122.42 kg [facility] 05-12-2020 09:18-0500 BP Diastolic 83 mm[Hg] [facility] 05-12-2020 09:18-0500 BP Systolic 148 mm[Hg] [facility] 05-12-2020 09:18-0500 Height 182.88 cm [facility] 05-12-2020 09:18-0500 Pulse (Heart Rate) 58 /min [facility] 05-12-2020 09:18-0500 Pulse Oximetry 94 % [facility] 05-12-2020 09:18-0500 Respiratory Rate 20 /min [facility] Encounters Encounter Date Encounter Type Care Provider Facility Start: 04-05-2023 End: 04-05-2023 ambulatory Geeta Dumont Other [employer] Other Start: 04-05-2023 Telephone encounter Geeta Henry [facility] Start: 04-04-2023 End: 04-04-2023 ambulatory Geeta Dumont Facility:[facility] Start: 04-04-2023 End: 04-04-2023 Patient encounter procedure DO Teri Aragon Work Phone: [facility] [employer] Work Phone: Start: 04-04-2023 End: 04-04-2023 ambulatory DO Teri Aragon Work Phone: [facility] Work Phone: Start: 03-28-2023 End: 03-28-2023 ambulatory WEI SOTO Not Available Start: 03-27-2023 End: 03-27-2023 ambulatory Sindi Foster Facility:[facility] Start: 03-27-2023 End: 03-27-2023 ambulatory DO Teri Harperi Work Phone: [facility] Work Phone: Start: 03-27-2023 End: 03-27-2023 Patient encounter procedure DO Teri Harperi Work Phone: [facility]-XRay [facility] [employer] Work Phone: Start: 03-25-2023 End: 03-25-2023 ambulatory Geeta Dumont Other [facility] [employer] Other Start: 03-25-2023 Telephone encounter Geeta Henry [facility] Start: 03-22-2023 End: 03-22-2023 ambulatory Alton sEpinoza Facility:[facility] Start: 03-22-2023 End: 03-22-2023 ambulatory DO Teri Harperi Work Phone: [facility] Work Phone: Start: 03-22-2023 End: 03-22-2023 Patient encounter procedure DO Teri Harperi Work Phone: [facility]-Ultrasound [facility] [employer] Work Phone: Start: 03-20-2023 Office outpatient vi sit 25 minutes Geeta Dumont [facility] Start: 03-20-2023 End: 03-20-2023 ambulatory SINDI HUITRONBrionna [facility] [employer] Other Start: 03-20-2023 End: 03-20-2023 Patient encounter procedure DO Teri Harperi Work Phone: [facility]-MRI [facility] [employer] Work Phone: Start: 03-20-2023 End: 03-20-2023 Patient encounter procedure DO Teripascual Cedillocki Work Phone: [facility] Work Phone: Start: 03-13-2023 End: 03-13-2023 ambulatory Prashant Brad Other [employer] Other Start: 03-13-2023 Telephone encounter Prashant Yanezr [facility] Start: 03-08-2023 End: 03-08-2023 ambulatory Geeta Dumont Other [employer] Other Start: 03-08-2023 Telephone encounter Geeta Elaine her [facility] Start: 03-07-2023 End: 03-07-2023 ambulatory Geeta Dumont Facility:[facility] Start: 03-07-2023 End: 03-07-2023 Patient encounter procedure DO Teri Aragon Work Phone: [facility] [employer] Work Phone: Start: 03-05-2023 End: 03-05-2023 ambulatory Geeta Dumont Other [employer] Other Start: 03-05-2023 Office outpatient vi sit 25 minutes Geeta Dumont [facility] Start: 03-05-2023 Telephone encounter Geeta Elaine her [facility] Start: 03-05-2023 End: 03-05-2023 Patient encounter procedure DO Teri Aragon Work Phone: [facility] Work Phone: Start: 03-01-2023 End: 03-01-2023 ambulatory Mina Reilly Other [employer] Other Start: 03-01-2023 Telephone encounter Mina Reilly [facility] Start: 02-26-2023 End: 02-26-2023 ambulatory Teri Aragon Facility:[facility] Start: 02-26-2023 End: 02-26-2023 ambulatory DO Teri Aragon Work Phone: [facility] Work Phone: Start: 02-26-2023 End: 02-26-2023 Discharged Recurring DO Teri Aragon Work Phone: [facility] [place] Work Phone: Start: 02-26-2023 Registered Recurring DO Bandar Aragon Work Phone: [facility] [place] Work Phone: Start: 02-21-2023 Office outpatient vi sit [address] [facility] Start: 02-21-2023 End: 02-21-2023 ambulatory TERIPASCUAL CEDILLOCORIERuss [facility] [employer] Other Start: 02-21-2023 End: 02-21-2023 Patient encounter procedure DO Teri Aragon Work Phone: [facility]CT Scan [facility] [employer] Work Phone: Start: 02-21-2023 End: 02-21-2023 Patient encounter procedure DO Teri Aragon Work Phone: [facility] Nephrology Work Phone: Start: 02-18-2023 Telephone encounter Ingris garrett [facility] Start: 02-18-2023 Transitional care reta antonio srvc 14 day discharge Ingris Lombardo [facility] Start: 02-18-2023 End: 02-18-2023 ambulatory DARIO BOLDEN Not Available Start: 02-18-2023 End: 02-18-2023 ambulatory DO Trei Aragon Work Phone: [facility] Work Phone: Start: 02-18-2023 End: 02-18-2023 Patient encounter procedure DO Teri Aragon Work Phone: [facility] [employer] Work Phone: Start: 02-18-2023 End: 02-18-2023 Patient encounter procedure DO Teri Aragon Work Phone: [facility] Work Phone: Start: 02-12-2023 End: 02-15-2023 Evaluation and management of inpatient Teri Aragon Facility:[facility] Start: 02-12-2023 End: 02-15-2023 Evaluation and management of inpatient DO Teri Aragon Work Phone: [facility] Work Phone: Start: 02-11-2023 End: 02-11-2023 ambulatory Ingris Lombardo Other [employer] Other Start: 02-11-2023 Telephone encounter Ingris garrett [facility] Start: 02-10-2023 End: 02-10-2023 ambulatory Teri Aragon Facility:[facility] Start: 02-10-2023 End: 02-10-2023 Patient encounter procedure [facility]Electrodiagnostics Work Phone: Start: 02-08-2023 End: 02-10-2023 Evaluation and management of inpatient Objuanadashefali Hyun Srivastavar Facility:[facility] Start: 02-08-2023 End: 02-10-2023 Evaluation and management of inpatient [facility] Work Phone: Start: 02-06-2023 Evaluation and management of inpatient [facility] Work Phone: Start: 02-06-2023 observation encounter NON STAFF [facility] Work Phone: Start: 02-04-2023 End: 02-04-2023 ambulatory WEI SOTO Not Available Start: 01-28-2023 End: 01-28-2023 ambulatory Dario Bolden Facility:[facility] Start: 01-28-2023 End: 01-28-2023 ambulatory NON STAFF [facility] Work Phone: Start: 01-28-2023 End: 01-28-2023 Patient encounter procedure [facility]Nuc [facility] [employer] Work Phone: Start: 01-23-2023 End: 01-24-2023 ambulatory DARIO BOLDEN Not Available Start: 01-14-2023 End: 01-14-2023 ambulatory Sindi Foster Jr Facility:[facility] Start: 01-14-2023 End: 01-14-2023 Patient encounter procedure [facility] [employer] Work Phone: Start: 12-19-2022 End: 12-19-2022 ambulatory Teri Aragon Facility:[facility] Start: 12-19-2022 End: 12-19-2022 ambulatory JOINTER OPERATORMelecio Dumont Work Phone: [facility] Work Phone: Start: 12-19-2022 End: 12-19-2022 Patient encounter procedure GOLDEN Dumont Work Phone: [facility] [employer] Work Phone: Start: 12-12-2022 End: 12-12-2022 ambulatory Ingris Lombardo Other [facility] [employer] Other Start: 12-12-2022 Telephone encounter Ingris WOLFF [facility] Start: 12-06-2022 End: 12-06-2022 ambulatory Sindi Foster Facility:[facility] Start: 12-05-2022 Telephone encounter Teri Aragon Work Phone: [facility] 250 DO Work Phone: Start: 11-27-2022 ambulatory Teri Aragon Facil ity:[facility] Start: 11-27-2022 Registered Recurring JOINTER OPERATORMelecio Dumont Work Phone: [facility] Work Phone: Start: 11-26-2022 End: 11-26-2022 ambulatory Vivian Del Rosario Facility:[facility] Start: 11-26-2022 End: 11-26-2022 ambulatory JOINTER OPERATORMelecio Dumont Work Phone: [facility] Work Phone: Start: 11-26-2022 End: 11-26-2022 Patient encounter procedure JOINTER OPERATORMelecio Dumont Work Phone: [facility] [place] Work Phone: Start: 11-12-2022 End: 11-12-2022 ambulatory Teri Ybarra Facility:[facility] Start: 11-12-2022 End: 11-12-2022 ambulatory JOINTER OPERATORMelecio Dumont Work Phone: [facility] Work Phone: Start: 11-12-2022 End: 11-12-2022 Patient encounter procedure JOINTER OPERATORMelecio Dumont Work Phone: [facility] [place] Work Phone: Start: 11-01-2022 AUDIT Teri amezquita Work Phone: [facility] 250 DO Work Phone: Start: 10-16-2022 End: 10-16-2022 ambulatory Geeta Dumont Other [facility] [employer] Other Start: 10-16-2022 Telephone encounter Geeta Henry [facility] Start: 10-11-2022 End: 10-11-2022 ambulatory Geeta Dumont Other [employer] Other Start: 10-11-2022 Office outpatient vi sit 25 minutes Geeta Dumont [facility] Start: 10-10-2022 End: 10-10-2022 ambulatory Geeta Dumont Facility:[facility] Start: 10-10-2022 End: 10-10-2022 ambulatory JOINTER OPERATOR Geetaivon Dumont Work Phone: [facility] Work Phone: Start: 10-10-2022 End: 10-10-2022 Patient encounter procedure JOINTER OPERATOR Geeta Tim Work Phone: [facility]-Lab [facility] [employer] Work Phone: Start: 10-01-2022 End: 10-01-2022 ambulatory Geeta Dumont Other [employer] Other Start: 10-01-2022 Telephone encounter Geeta Henry her [employer] Start: 09-28-2022 Telephone encounter Geeta Henry her [facility] Start: 09-28-2022 End: 09-28-2022 ambulatory JOINTER OPERATORMelecio Dumont Work Phone: [employer] Other Start: 09-28-2022 End: 09-28-2022 Patient encounter procedure JOINTER OPERATOR Geetaivon Dumont Work Phone: [facility]-MRI [facility] [employer] Work Phone: Start: 09-12-2022 End: 09-12-2022 ambulatory Geeta Dumont Other [employer] Other Start: 09-12-2022 Office outpatient vi sit 15 minutes Geeta Dumont [facility] Start: 09-10-2022 End: 09-10-2022 ambulatory Geeta Dumont Other [facility] [employer] Other Start: 09-10-2022 Telephone encounter Geeta Henry [facility] [place] Start: 09-07-2022 FUV, Provider: Viridiana Burgess, Status: Pen, Time: 9:20 AM Teri Aragon Work Phone: [facility] 250 DO Work Phone: Start: 09-07-2022 Office outpatient vi sit 25 minutes Teri Aragon Work Phone: [facility] 250 DO Work Phone: Start: 09-07-[address] Stone Ar roseanne Burgess Facility: Start: 09-06-2022 Chart Update Teri amezquita Work Phone: [facility] 250 DO Work Phone: Start: 09-05-2022 End: 09-05-2022 ambulatory Geeta Dumont Facility:[facility] Start: 09-05-2022 End: 09-05-2022 ambulatory JOINTER OPERATORMelecio Dumont Work Phone: [facility] Work Phone: Start: 09-05-2022 End: 09-05-2022 Patient encounter procedure JOINTER OPERATOR Geeta Dumont Work Phone: [facility] [place] Work Phone: Start: 09-04-2022 End: 09-04-2022 ambulatory Sabino Ding Other [facility] [employer] Other Start: 09-04-2022 Office outpatient ne w 30 minutes Sabino Ding [facility] Neurosurgery Start: 09-04-2022 Telephone encounter Teri Aragon Work Phone: [facility] 250 DO Work Phone: Start: 09-03-2022 End: 09-03-2022 ambulatory Geeta Dumont Facility:[facility] Start: 09-03-2022 End: 09-03-2022 ambulatory JOINTER OPERATORMelecio Dumont Work Phone: [facility] Work Phone: Start: 09-03-2022 End: 09-03-2022 Patient encounter procedure JOINTER OPERATOR Geeta Dumont Work Phone: [facility]XRay [facility] [employer] Work Phone: Start: 08-30-2022 End: 08-30-2022 ambulatory Geeta Dumont Other [facility] [employer] Other Start: 08-30-2022 Telephone encounter Geeta Henry her [facility] [employer] Start: 08-29-2022 Telephone encounter Geeta Henry her [facility] [employer] Start: 08-29-2022 End: 08-29-2022 ambulatory JOINTER OPERATORMelecio Dumont Work Phone: [facility] Work Phone: Start: 08-29-2022 End: 08-29-2022 Patient encounter procedure JOINTER OPERATORMelecio Dumont Work Phone: [facility] [place] Work Phone: Start: 08-28-2022 Office outpatient vi sit 25 minutes Geeta Dumont [facility] Start: 08-28-2022 End: 08-28-2022 ambulatory Geeta Dumont [facility] [employer] Other Start: 08-28-2022 End: 08-28-2022 Patient encounter procedure JOINTER OPERATOR Geeta Dumont Work Phone: [facility] [place] Start: 08-20-2022 End: 08-20-2022 ambulatory Lavon Sandoval Other [employer] Other Start: 08-20-2022 Telephone encounter Lavon SILVESTRE [facility] Start: 07-24-2022 (Procedure) Short Lavon Sandoval [facility] OutPt Start: 07-24-2022 End: 07-24-2022 Admission to same day surgery center JOINTER OPERATOR Geeta Dumont Work Phone: [facility] Work Phone: Start: 07-24-2022 End: 07-24-2022 ambulatory GOLDEN Dumont Work Phone: [employer] Other Start: 07-02-2022 Telephone encounter Geeta Henry [facility] Start: 07-02-2022 End: 07-02-[address] Viridiana Burgess [employer] Other Start: 06-26-2022 End: 06-26-2022 ambulatory Lavon Marielenaleida Other [employer] Other Start: 06-26-2022 Telephone encounter Lavon SILVESTRE [facility] Start: 06-18-2022 End: 06-18-2022 ambulatory Lavon Marielenaleida Other [employer] Other Start: 06-18-2022 Telephone encounter Lavon SILVESTRE [facility] Start: 06-14-2022 End: 06-14-2022 ambulatory Lavon Marielenaleida Other [employer] Other Start: 06-14-2022 Office outpatient vi sit [address] [facility] [place] Start: 06-05-2022 (Procedure) Short Lavon Pegueroleida [facility] OutPt Start: 06-05-2022 End: 06-05-2022 ambulatory Lavon Sandoval Facility:[facility] Start: 06-05-2022 End: 06-05-2022 Admission to same day surgery center JOINTER OPERATORMelecio Dumont Work Phone: [facility] Work Phone: Start: 06-05-2022 End: 06-05-2022 ambulatory JOINTER OPERATORMelecio Dumont Work Phone: [facility] Work Phone: Start: 06-01-2022 Telephone encounter Teri Aragon Work Phone: [facility] 250 DO Work Phone: Start: 05-18-2022 Rx Renewal Teri Contreras Neto amezquita Work Phone: [facility] 250 DO Work Phone: Start: 05-17-2022 End: 05-17-2022 ambulatory Lavon Sandoval Other [employer] Other Start: 05-17-2022 Office outpatient vi sit 25 minutes Lavon Sandoval [facility] Start: 05-08-2022 (Procedure) Short Lavon Sandoval [facility] OutPt Start: 05-08-2022 End: 05-08-2022 ambulatory Lavon Sandoval Facility:[facility] Start: 05-08-2022 End: 05-08-2022 Admission to same day surgery center GOLDEN Dumont Work Phone: [facility] Work Phone: Start: 05-08-2022 End: 05-08-2022 ambulatory JOINTER OPERATORMelecio Dumont Work Phone: [facility] Work Phone: Start: 04-26-2022 Office outpatient ne w 45 minutes Lavon Sandoval [facility] Start: 04-26-2022 End: 04-26-2022 ambulatory Geeta Dumont [employer] Other Start: 04-26-2022 End: 04-26-2022 Patient encounter procedure JOINTER OPERATORMelecio Connor Tim Work Phone: [facility] Start: 04-23-2022 End: 04-23-2022 ambulatory Geeta Tim Other [employer] Other Start: 04-23-2022 Telephone encounter Geeta Henry her [facility] Start: 04-20-2022 End: 04-20-2022 ambulatory Geeta Tim Other [employer] Other Start: 04-20-2022 Telephone encounter Geeta Henry her [facility] Start: 04-16-2022 End: 04-16-2022 ambulatory Geeta Derekmarian Other [employer] Other Start: 04-16-2022 Telephone encounter Geeta Henry her [facility] Start: 04-13-2022 Rx Renewal Teri amezquita Work Phone: [facility]ofie 250 DO Work Phone: Start: 04-12-2022 End: 04-12-2022 ambulatory Dario Bolden Facility:[facility] Start: 04-12-2022 End: 04-12-2022 ambulatory JOINTER OPERATORMelecio Connor Tim Work Phone: [facility] Work Phone: Start: 04-12-2022 End: 04-12-2022 Patient encounter procedure JOINTER OPERATORMelecio Connor Tim Work Phone: [facility]Ultrasound [facility] [employer] Work Phone: Start: 04-10-2022 Rx Renewal Teri amezquita Work Phone: [facility] Heart-[facility]ofie 250 DO Work Phone: Start: 04-07-2022 End: 04-07-2022 ambulatory Geeta Dumont Other [employer] Other Start: 04-07-2022 Telephone encounter Geeta Elaine her [facility] Professional [employer] Start: 04-03-2022 End: 04-03-2022 Admission to same day surgery center JOINTER OPERATOR Geeta Dumont Work Phone: [facility] Work Phone: Start: 04-02-2022 End: 04-02-2022 ambulatory Geeta Dumont Other [facility] [employer] Other Start: 04-02-2022 Patient encounter procedure Geeta Dumont [facility] Start: 03-29-2022 Chart Update Teri Duque [employer] Work Phone: [facility]-[place] 250 DO Work Phone: Start: 03-28-2022 Rx Renewal Teri Duque [employer] Work Phone: [facility]-[place] 250 DO Work Phone: Start: 03-28-2022 End: 03-28-2022 ambulatory JOINTER OPERATORMelecio Dumont Work Phone: [facility] Work Phone: Start: 03-28-2022 End: 03-28-2022 Patient encounter procedure JOINTER OPERATORMelecio Dumont Work Phone: [facility] [place] Work Phone: Start: 03-26-2022 End: 03-26-2022 ambulatory Geeta Dumont Other [employer] Other Start: 03-26-2022 Telephone encounter Geeta Henry her [facility] Start: 03-05-2022 End: 03-05-2022 ambulatory Geeta Carringtonritamarian Other [employer] Other Start: 03-05-2022 Telephone encounter Geeta Henry her [facility] Start: 01-25-2022 Office outpatient vi sit 25 minutes Teir Aragon Work Phone: [facility] [employer] 250 DO Work Phone: Start: 01-25-[address] Teri Aragon Facility: Start: 01-25-2022 Rx Renewal Teri amezquita Work Phone: [facility] 250 DO Work Phone: Start: 01-17-2022 End: 01-17-2022 ambulatory Geeta Carringtonjuan ramonmary Other [employer] Other Start: 01-17-2022 Telephone encounter Geeta Henry her [facility] Start: 01-04-2022 End: 01-04-2022 ambulatory Geeta Carringtonjuan ramonmary Other [employer] Other Start: 01-04-2022 Telephone encounter Geeta Henry her [employer] Start: 01-02-2022 End: 01-02-2022 ambulatory DO Teri Aragon Work Phone: [facility] Work Phone: Start: 01-02-2022 End: 01-02-2022 Patient encounter procedure DO Teri Aragon Work Phone: [facility]-MRI [address] Start: 01-01-2022 End: 01-01-2022 ambulatory Geeta Dumont Other [employer] Other Start: 01-01-2022 Telephone encounter Geeta cuevas [facility] Start: 12-27-2021 End: 12-28-2021 ambulatory Dario Bolden Facility:[facility] Start: 12-27-2021 End: 12-27-2021 Lab Drop off Dario Bolden [facility] Start: 12-21-2021 End: 12-21-2021 ambulatory PHYSICIAN NO [facility] Work Phone: Start: 12-21-2021 End: 12-21-2021 Discharged Recurring PHYSICIAN NO [facility]-Wound [facility] Start: 12-18-2021 Chart Update No PCP None [facility] Brandi Mathur [address] [place] Work Phone: Start: 12-15-2021 End: 12-15-2021 ambulatory Geeta Dumont Other [employer] Other Start: 12-15-2021 Office outpatient vi sit 25 minutes Geeta Dumont [facility] Start: 12-11-2021 End: 12-11-2021 Departed Referred PHYSICIAN NO [facility]-Lab Main [employer] Start: 12-05-2021 End: 12-05-2021 Patient encounter procedure DPHyun Lal Work Phone: [facility] [address] Start: 11-30-2021 End: 11-30-2021 ambulatory Geeta Dumont Other [employer] Other Start: 11-30-2021 Telephone encounter Geeta Henry her [employer] Start: 11-28-2021 End: 11-28-2021 ambulatory Geeta Dumont Facility:[facility] Start: 11-27-2021 End: 11-27-2021 ambulatory Geeta Dumont Other [employer] Other Start: 11-27-2021 Office outpatient vi sit 15 minutes Geeta Dumont [facility] Start: 11-21-2021 End: 11-21-2021 Departed Referred DO Francisco Li Work Phone: [facility]Lab [facility] [employer] Start: 11-21-2021 End: 11-21-2021 ambulatory Geeta Dumont Other [employer] Other Start: 11-21-2021 Telephone encounter Geeta cuevas [facility] Start: 11-10-2021 End: 11-10-2021 Registered Recurring DO Francisco Li Work Phone: [facility] Start: 11-08-2021 End: 11-08-2021 Departed Referred DO Francisco Li Work Phone: [facility]-Lab [facility] Start: 10-30-2021 End: 10-30-2021 ambulatory Geeta Dumont Other [employer] Other Start: 10-30-2021 Encounter for other preprocedural examination Geeta Dumont [facility] Start: 10-30-2021 Office outpatient vi sit 25 minutes Geeta Dumont [facility] Start: 10-27-2021 End: 10-29-2021 Subsequent hospital visit by physician Sta X-Ray [facility] Comment on above: Arrived Start: 10-27-2021 End: 11-01-2021 ambulatory RUSSELL Bassett [facility] Start: 10-13-2021 End: 10-13-2021 ambulatory Geeta Dumont Other [employer] Other Start: 10-13-2021 Telephone encounter Geeta Carringtonbharati her [employer] Start: 10-09-2021 End: 10-09-2021 ambulatory Geeta Tim Other [employer] Other Start: 10-09-2021 Telephone encounter Geeta Carringtonritafaisal her [facility] Start: 09-29-2021 End: 09-29-2021 ambulatory Geeta Tim Other [employer] Other Start: 09-29-2021 Office outpatient vi sit 15 minutes Geeta Tim [facility] Start: 09-29-2021 Telephone encounter Geeta Henry her [facility] Start: 09-27-2021 End: 09-27-2021 Patient encounter procedure DO Francisco Li Work Phone: [facility] [place] Start: 09-20-2021 End: 09-24-2021 Evaluation and management of inpatient DO Francisco Li Work Phone: [facility] [employer] [facility] Start: 09-20-2021 End: 09-20-2021 Departed Referred DO Francisco Li Work Phone: [facility] [employer] Start: 09-13-2021 Chart Update No PCP None [place] [facility]-[place]ie 250 DO Work Phone: Start: 09-13-2021 End: 09-13-2021 ambulatory Geeta Tim Other [employer] Other Start: 09-13-2021 Telephone encounter Geeta Henry her [facility] Start: 09-06-2021 End: 09-06-2021 Patient encounter procedure DO Francisco Li Work Phone: [facility] [place] Start: 08-23-2021 End: 08-23-2021 ambulatory Geeta Tim Other [employer] Other Start: 08-23-2021 Telephone encounter Geeta Carringtonbharati her [employer] Start: 08-22-2021 End: 08-22-2021 Patient encounter procedure DO Francisco Li Work Phone: [facility] [place] Start: 08-22-2021 End: 08-22-2021 ambulatory Geeta Dumont Other [employer] Other Start: 08-22-2021 Office outpatient vi sit 25 minutes Geeta Dumont [facility] Start: 06-23-2021 End: 08-23-2021 ambulatory TERI ARAGON Facility:[facility] Start: 06-14-2021 End: 06-14-2021 ambulatory Geeta Dumont Other [employer] Other Start: 06-14-2021 Telephone encounter Geeta Carringtonbharati her [employer] Start: 06-12-2021 End: 06-12-2021 ambulatory Geeta Tim Other [employer] Other Start: 06-12-2021 Office outpatient ne w 30 minutes Geeta Dumont [facility] Start: 05-03-2021 Rx Renewal Francisco Garg on Work Phone: [facility]ie 250 DO Work Phone: Start: 02-19-2021 Rx Renewal Francisco Garg on Work Phone: [facility]-[place] 250 DO Work Phone: Start: 01-25-2021 Office outpatient vi sit 25 minutes Francisco Li Work Phone: [facility]-[place] [address] [place] Work Phone: Start: 01-25-2021 Patient encounter procedure Francisco iL Work Phone: -[facility] Heart-Galt 250 DO Work Phone: Start: 01-24-2021 AUDIT Francisco Garg on Work Phone: QW-Jnmhbirpuu-Vmgtna 1800 Wound Work Phone: Start: 01-19-2021 Chart Update Francisco Garg on Work Phone: RP-Tkfqzuedgl-ZYB [facility] [address] [place] Work Phone: Start: 01-17-2021 ambulatory Criselda Santos y:[facility] Start: 01-10-2021 Preoperative state Francisco reyes Other Phone: [facility] Start: 01-10-2021 End: 01-10-2021 Evaluation and management of inpatient Francisco Lewismercedes [facility] 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 Start: 01-04-2021 AUDIT Francisco Garg on Work Phone: BM-Bjkuqjgqyb-Paahvef Work Phone: Start: 12-19-2020 AUDIT Francisco Garg on Work Phone: PU-Wafdtpclqf-TOV [facility] [address] [place] Work Phone: Start: 12-07-2020 Office outpatient ne w 45 minutes Francisco Li Work Phone: XF-Tqzdusiekj-YCK [facility] [address] [place] Work Phone: Start: 08-25-2020 End: 08-25-2020 ambulatory ULISSES [facility] Start: 08-25-2020 End: 08-25-2020 Subsequent hospital visit by physician Ulisses Nieves MD Work Phone: [facility] Start: 08-22-2020 End: 08-27-2020 ambulatory MARGARET [facility] Start: 08-22-2020 End: 08-26-2020 Subsequent hospital visit by physician Westley Pat Rm 1 [facility] Pre-Admit Testing Start: 07-26-2020 End: 07-26-2020 ambulatory ULISSES AVASTHI [facility] Start: 07-22-2020 End: 07-22-2020 Subsequent hospital visit by physician Westley Covid Screening Schedule [facility] Covid Screening - Nahum Comment on above: COVID-19 ruled out b y laboratory testing (Primary Dx) Start: 07-02-2020 End: 07-03-2020 ambulatory BRITTANY RAO [facility] Start: 07-02-2020 End: 07-02-2020 Patient encounter status St[facility] Schedule [facility] Covid Scre ening Start: 07-02-2020 End: 07-02-2020 Subsequent hospital visit by physician [facility] Covid Screening Schedule [facility] Covid Screening Comment on above: Preop testing (Prima ry Dx) Start: 05-12-2020 Registered Recurring [facility] Start: 03-30-2019 End: 04-01-2019 Subsequent hospital visit by physician Stephenie [address] [facility] [address] Scan Comment on above: Cough; Hemoptysis; SOB (shortness of breath) SOB (shortness of br eath); Hemoptysis Start: 09-27-2017 End: 09-27-2017 Patient encounter ESSENCE MARTÍNEZ Facility:[facility] Start: 09-23-2017 Patient encounter PAULA BERGER Facility:7 Start: 11-16-2016 End: 11-16-2016 Patient encounter ESSENCE MARTÍNEZ Facility:[facility] Start: 11-07-2016 Patient encounter ESSENCE MARTÍNEZ Facil [id number] Patient encounter procedure [facility] Procedures Date Procedure Procedure Detail Performing Clinician Start: 03-22-2023 Pulse volume recorde r pneumoplethysmography DO Teri Aragon Work Phone: Start: 03-20-2023 XR pre/post mri xray DO Teri Aragon Work Phone: Start: 03-20-2023 MRI of left foot DO Tod Aragon Work Phone: Start: 02-21-2023 CT of soft tissues o f neck with contrast DO Teri Aragon Work Phone: Start: 02-21-2023 FOLLOW UP IN CARDIOLOGY TERI ARAGON Start: 02-15-2023 Plain chest X-ray DO Reta Aragon Work Phone: Start: 02-14-2023 Implantation of card iac pacemaker DO Teri Aragon Work Phone: Start: 02-14-2023 Plain chest X-ray DO Reta Aragon Work Phone: Start: 02-12-2023 Plain chest X-ray DO Reta Aragon Work Phone: Start: 02-08-2023 Ultrasonography of b ilateral kidneys Start: 02-06-2023 SARS-CoV-2, Influenz a & RSV (PCR) Start: 02-06-2023 Plain chest X-ray Start: 01-28-2023 Radionuclide three-p hase bone study Start: 09-28-2022 MRI of head JOINTER OPERATORMelecio Dumont Work Phone: Start: 09-03-2022 X-ray of cervical spine JOINTER OPERATORMelecio Dumont Work Phone: Start: 08-28-2022 Plain chest X-ray GOLDEN Dumont Work Phone: Start: 07-24-2022 Local anesthetic lum bar facet joint nerve block GOLDEN Dumont Work Phone: Start: 06-05-2022 Local anesthetic lum bar facet joint nerve block JOINTER OPERATORMelecio Dumont Work Phone: Start: 05-08-2022 Local anesthetic lum bar facet joint nerve block GOLDEN Dumont Work Phone: Start: 04-26-2022 X-ray of lumbar spin e, four views JOINTER OPERATORMelecio Dumont Work Phone: Start: 04-12-2022 Pulse volume recorde r pneumoplethysmography JOINTER OPERATOR Geeta Tim Work Phone: Start: 04-03-2022 Screening colonoscopy A PRN Geeta Tim Work Phone: Start: 01-02-2022 MRI of cervical spin e without contrast DO Teri Aragon Work Phone: Start: 10-27-2021 Radiologic exam chest 2 views Anca Joel MD Work Phone: Start: 09-21-2021 MRI of left foot with contrast DO Francisco Li Work Phone: Start: 09-20-2021 X-ray of left foot DO Brionna Li Work Phone: Start: 08-22-2021 Plain X-ray of right shoulder DO Francisco Li Work Phone: Start: 08-22-2021 X-ray of cervical spine DO Francisco Li Work Phone: Start: 01-10-2021 Echocardiography Francisco Li Work Phone: Start: 01-10-2021 Echocardiography Francisco Li Work Phone: Start: 12-02-2020 Echocardiography Francisco Li Work Phone: Start: 08-25-2020 Cytopath fl nongyn, sm/fltr Ulisses Nieves MD Work Phone: Start: 08-25-2020 Glucose blood reagent strip Ulisses Nieves MD Work Phone: Start: 07-22-2020 COVID-19 Justin reyes MD Work Phone: Start: 03-30-2019 Radiologic exam chest 2 views Alfonso Wesley MD Start: 03-30-2019 Ct thorax w/o contrast material Alfonso Wesley MD Start: 08-25-2018 CT chest w con Francisco danielle Start: 07-22-2018 Plain chest X-ray Js Li Start: 07-29-2017 CT abdomen pelvis wo con Francisco Li Start: 07-29-2017 CT chest wo con Francisco Li Start: 01-16-2017 CT abdomen pelvis wo con Francisco Li Start: 01-16-2017 CT chest wo con Francisco Li Aerobic microbial culture DO Francisco Li Work Phone: Aerobic microbial culture DO Francisco Li Work Phone: Aerobic microbial culture DO Francisco Li Work Phone: Aerobic microbial culture DP Hyun Lal Work Phone: Aerobic microbial culture PH YSICIAN NO FAMILY Amputation of toe Teri Diane Aragon Work Phone: Anaerobic microbial culture DO Francisco Li Work Phone: Appendectomy Francisco Hay n Work Phone: Atrial appendage adán sure device insertion Teripascual Aragon Work Phone: Atrial cardioversion Francisco Li Work Phone: Colonoscopy Francisco Hay n Work Phone: Comment on above: [id number]; Esophagogastrostomy, antesternal or antethoracic Francisco Li Work Phone: Hammer toe operation Teri Diane Aragon Work Phone: Hernia repair Francisco Garg on Work Phone: Investigation of tra nsfusion reaction DO Francisco Li Work Phone: Operation on colon Francisco Li Work Phone: Percutaneous translu kalpana coronary angioplasty Francisco Li Work Phone: Screening for malign ant neoplasm of colon Geeta Dumont Other Plan of Treatment Date Care Activity Detail Author Start: 01-03-2026 DTaP/Tdap/Td vaccine (2 - Td or Tdap) DTaP/Tdap/Td vaccine (2 - Td or Tdap) [facility] Start: 03-20-2023 FUV, Provider: Viridiana Burgess, Status: Pen, Time: 9:50 AM FUV, Provider: Viridiana Burgess, Status: Pen, Time: 9:50 AM [facility]ofie 250 DO Work Phone: Start: 02-15-2023 [facility] Start: 02-14-2023 [facility] Start: 02-12-2023 Hospital admission [facility] Start: 02-12-2023 Insertion of Pacemaker Lead into Right Ventricle, Percutaneous Approach Insertion of Pacemaker Lead into Right Ventricle, Percutaneous Approach [facility] Start: 02-12-2023 Insertion of Pacemaker, Single Chamber into Chest Subcutaneous Tissue and Fascia, Open Approach Insertion of Pacemaker, Single Chamber into Chest Subcutaneous Tissue and Fascia, Open Approach [facility] Start: 02-11-2023 Implantation of cardiac pacemaker OR Pacemaker Insertion (Not Applicable) [facility] Start: 02-10-2023 [facility] Start: 02-07-2023 Referral to disaster or damage control specialist [facility] Start: 02-07-2023 Blood chemistry [facility] Start: 02-06-2023 Physical therapy procedure [facility] Start: 02-06-2023 Referral to start up specialist [facility] Start: 02-06-2023 Referral to occupational therapist [facility] Start: 02-06-2023 Hospital admission [facility] Start: 02-06-2023 [facility] Start: 10-27-2022 Hemoglobin A1c measurement A1C test (Diabetic or Prediabetic) [facility] Start: 08-21-2022 FUV, Provider: Viridiana Burgess, Status: Pen, Time: 9:20 AM FUV, Provider: Viridiana Burgess, Status: Pen, Time: 9:20 AM [facility] 250 DO Work Phone: Start: 07-24-2022 [facility] Start: 07-02-2022 ECHO, Provider: SOFIE WEBERI [employer]TR[employer] ,[id number], Status: Pen, Time: 9:45 AM ECHO, Provider: SOFIE WEBERI [employer]TR[employer] ,[id number], Status: Pen, Time: 9:45 AM [facility] [facility]-[place] 250 DO Work Phone: Start: 06-05-2022 [facility] Start: 05-08-2022 [facility] Start: 04-03-2022 [facility] Start: 01-25-2022 FUV, Provider: Viridiana Burgess, Status: Pen, Time: 9:40 AM FUV, Provider: Viridiana Burgess, Status: Pen, Time: 9:[address] [facility] 250 DO Work Phone: Start: 11-16-2021 Influenza vaccination Flu vaccine (#1) [facility] Start: 11-13-2021 End: 11-13-2021 Admission to same day surgery center 11/13/2021 Surgery IP Unit Mauro Rankin MD [address] [place] [address] RIGHT INFERIOR PARATHYROIDECTOMY [facility] Comment on above: RIGHT INFERIOR PARATHYROIDECTOMY Start: 11-13-2021 End: 11-13-2021 Parathyroidectomy/explora tion parathyroids PARATHYROIDECTOMY Hyperparathyroidism (HCC) Hypercalcemia 11/13/2021 11:00 AM [facility] Start: 11-13-2021 Subsequent hospital visit by physician 11/13/2021 Hospital Encounter IP Unit Mauro Rankin MD [address] [place] [address] [facility] Start: 09-24-2021 [facility] Work Phone: Start: 09-20-2021 Hospital admission [facility] Work Phone: Start: 09-20-2021 Referral to shaker tender [facility] Work Phone: Start: 09-20-2021 Referral to infectious diseases physician [facility] Work Phone: Start: 09-20-2021 Detachment at Left 1st Toe, Mid, Open Approach Detachment at Left 1st Toe, Mid, Open Approach [facility] Start: 07-27-2021 FUV, Provider: Viridiana Brugess, Status: Pen, Time: 9:30 AM FUV, Provider: Viridiana Burgess, Status: Jayce, Time: 9:30 AM [facility] 250 DO Work Phone: Start: 05-31-2021 COVID-19 Vaccine (3 - Booster for Al series) COVID-19 Vaccine (3 - Booster for Al series) [facility] [employer] Start: 05-25-2021 Pneumococcal 0-64 years Vaccine (1 of 1 - PPSV23) Pneumococcal 0-64 years Vaccine (1 of 1 - PPSV23) [employer] Work Phone: Comment on above: Postponed from 07/11/1961 (Patient Does Not Have Time) Start: 05-25-2021 Pneumococcal 0-64 years Vaccine (1 of 2 - PPSV23) Pneumococcal 0-64 years Vaccine (1 of 2 - PPSV23) [employer] Work Phone: Comment on above: Postponed from 07/11/1961 (Patient Does Not Have Time) Start: 03-02-2021 FUV, Provider: Viridiana Burgess, Status: Pen, Time: 11:30 AM FUV, Provider: Viridiana Burgess, Status: Pen, Time: 11:30 AM AM-Mnxqxbihop-WHA [facility] [address] [place] Work Phone: Start: 01-25-2021 FUV, Provider: Viridiana Burgess, Status: Pen, Time: 8:30 AM FUV, Provider: Viridiana Burgess, Status: Pen, Time: 8:30 AM JG-Ngznnnanqw-JTV [facility] [address] [place] Work Phone: Start: 01-25-2021 Patient encounter procedure [facility] Cardiology Sofie Start: 01-11-2021 End: 01-12-2022 [facility] Comment on above: Enteral feedings are held 1 hour pre and post dose Start: 01-10-2021 End: 01-11-2022 [facility] Comment on above: IF patient HAS a secure IV access & is U nconscious, Conscious, NPO or Unable to Eat or Drink. Repeat until BG reaches 100 mg/dL or greater. Push 2-3 mL/minute. Discontinue once BG reaches 100 mg/dL or greater. IF patient DOES NOT have secure IV access & is Unconscious, Conscious, NPO or Unable to Eat or Drink. Repeat until BG reaches 100 mg/dL or greater. Discontinue once BG reaches 100 mg/dL or greater. Start: 01-10-2021 End: 01-11-2022 [facility] Comment on above: 1. Dilute 1.3 mL of activated DEFINITY w ith 8.7 mL of normal saline in a 10 mL syringe.2. Inject 0.5 mL of diluted DEFINITY when notified the images/film are unclear to enhance view of Left Ventricular borders.3. Repeat 0.5 mL of DEFINITY until clear images are obtained, not to exceed 10 mLs.4. Once images are obtained or limit of medication is reached, flush line with 10 mL of Normal Saline. Start: 09-05-2020 End: 09-05-2020 Patient encounter procedure 09/05/2020 Office Visit Pulmonology Ulisses Nieves MD [address] [place] [address], [place] [id number] [facility] Start: 08-05-2020 End: 08-05-2020 Patient encounter procedure 08/05/2020 Office Visit Pulmonology Ulisses Nieves MD [address] [place], [place] [id number] [facility] Start: 07-26-2020 End: 07-26-2020 Admission to same day surgery center 07/26/2020 Surgery Endoscopy Ulisses Nieves MD [address] [place], [place] [id number] BRONCHOSCOPY WITH FLUORO [facility] Comment on above: BRONCHOSCOPY WITH FLUORO Start: 07-26-2020 Subsequent hospital visit by physician 07/26/2020 Hospital Encounter Endoscopy Ulisses Nieves MD [address] [place], [place] [id number] [facility] Start: 07-22-2020 End: 07-22-2021 COVID-19 COVID-19 Lab Routine COVID-19 ruled out by laboratory testing Expected: 07/22/2020, Expires: 07/22/2021 [employer] Phone: Comment on above: Expected: 07/22/2020, Expires: Start: 07-14-2020 End: 07-14-2020 Patient encounter procedure 07/14/2020 Office Visit Pulmonology Ulisses Nieves MD [address] [place] [address] [facility] Start: 07-05-2020 End: 07-05-2020 Admission to same day surgery center 07/05/2020 Surgery IP Unit Ulisses Nieves MD [address] [place], [place] [id number] BRONCHOSCOPY WITH FLOURO - GI SCHEDULED [facility] Comment on above: BRONCHOSCOPY WITH FLOURO - GI SCHEDULED Start: 07-05-2020 Subsequent hospital visit by physician [facility] Start: 07-02-2020 End: 07-01-2021 COVID-19 [employer] Phone: Comment on above: Expected: 07/02/2020, Expires: 2 Once for 1 Occurrenc es starting 07/02/2020 until 07/02/2020 Start: 05-19-2020 Annual Wellness Visit (AWV) Annual Wellness Visit (AWV) [employer] Phone: Start: 11-16-2018 Influenza vaccination Flu vaccine (#1) [employer] Phone: Start: 07-11-2007 Colon cancer screen colonoscopy Colon cancer screen colonoscopy [employer] Phone: Start: 07-11-2007 Screening for malignant neoplasm of colon Colon cancer screen colonoscopy [employer] Phone: Start: 07-11-2007 Shingles Vaccine (1 of 2) Shingles Vaccine (1 of 2) RICHARD [employer] Start: 2002 Screening for malignant neoplasm of colon [employer] Start: 1997 Diabetes screen Diabetes screen [employer] Phone: Start: 1997 Lipid screen Lipid screen [employer] Phone: Start: 1976 DTaP/Tdap/Td vaccine (1 - Tdap) DTaP/Tdap/Td vaccine (1 - Tdap) [employer] Phone: Start: 07-11-1975 Hepatitis C screening Hepatitis C screen [employer] Start: 1972 HIV screen HIV screen [employer] Phone: Start: 1972 HIV screening HIV screen [employer] Start: 1969 Depression Screen Depression Screen [employer] Start: 1968 DTaP/Tdap/Td vaccine (1 - Tdap) DTaP/Tdap/Td vaccine (1 - Tdap) [employer] Phone: Start: 07-11-1967 Lipid panel [employer] Start: 07-11-1963 Pneumococcal 0-64 years Vaccine (1 - PCV) Pneumococcal 0-64 years Vaccine (1 - PCV) [employer] Start: 1957 Annual Wellness Visit (AWV) Annual Wellness Visit (AWV) [employer] Start: 1957 Creatinine measurement Creatinine monitoring [employer] Phone: Start: 1957 Hepatitis C screen Hepatitis C screen [employer] Phone: Start: 1957 Hepatitis C screening Hepatitis C screen [employer] Phone: Start: 1957 Potassium monitoring Potassium monitoring [employer] Phone: Aldosterone [Mass/vo lume] in Serum or Plasma [facility] Atrial fibrillation Atrial fibrillation [facility] Bacteria identified in Unspecified specimen by Aerobe culture [facility] Work Phone: Blood chemistry [facility] Comprehensive metabo lic 1999 panel - Serum or Plasma [facility] Work Phone: Comprehensive metabo lic 1999 panel - Serum or Plasma [facility] Comprehensive metabo lic 1999 panel - Serum or Plasma [facility] Comprehensive metabo lic 1999 panel - Serum or Plasma [facility] Comprehensive metabo lic 1999 panel - Serum or Plasma [facility] COVID-19 COVID-19 Lab Rou veronica 07/02/2020 10:28 PM EDT [employer] Work Phone: Culture with Smear, Acid Fast Bacillius [employer] Work Phone: Comment on above: Release Upon Ordering for 1 Occurrences starting 08/25/2020 Culture, Fungus [facility] Work Phone: Comment on above: Release Upon Ordering for 1 Occurrences starting 08/25/2020 Culture, Respiratory [facility] Work Phone: Comment on above: Release Upon Ordering for 1 Occurrences starting 08/25/2020 Culture, Virus, Respiratory [facility] Work Phone: Comment on above: Release Upon Ordering for 1 Occurrences starting 08/25/2020 Lactate dehydrogenas e [Enzymatic activity/volume] in Unspecified specimen [facility] Work Phone: Lactate dehydrogenas e [Enzymatic activity/volume] in Unspecified specimen [facility] Patient Education [facility] Work Phone: Patient referral [facility] Work Phone: Renin [Enzymatic activity/volume] in Plasma [facility] Superficial Wound Culture Superficial Wou nd Culture [facility] End: 08-25-2020 Surgical Pathology Surgical Pathology Lab Routine Once for 1 Occurrences starting 08/25/2020 until 08/25/2020 [facility] Work Phone: Comment on above: Once for 1 Occurrences starting 08/26/19 21 until 08/25/2020 [facility] Immunizations Immunization Date Immunization Notes Care Provider Swetha vargas 07-23-2022 zoster vaccine recombinant Teri Aragon Work Phone: [facility] [address] DO Work Phone: 04-28-2022 zoster vaccine recombinant Teri Aragon Work Phone: [facility] 250 DO Work Phone: 03-14-2022 Pfizer COVID-19 Vac Bivalent 30 MCG/0.3ML Intramuscular Suspension Teri Aargon Work Phone: [facility] 250 DO Work Phone: 12-15-2021 influenza, injectabl e, quadrivalent, preservative free Geeta Dumont Other [employer] Other 10-27-2021 Comirnaty 30 MCG/0.3 ML Intramuscular Suspension No PCP None ZS-Cpolgnlfiw-DCB Brandi Mathur [address] [place] Work Phone: 01-31-2021 Al COVID-19 Vaccine 0.5 ML Intramuscular Suspension Francisco Li Work Phone: [facility] 250 DO Work Phone: 12-30-2020 influenza, seasonal, injectable Geeta Tim Other [facility] [employer] Other 12-30-2020 Seasonal, quadrivalent, recombinant, injectable influenza vaccine, preservative free Francisco Li Work Phone: [facility] 250 DO Work Phone: 05-23-2020 Al COVID-19 Vaccine 0.5 ML Intramuscular Suspension Francisco Li Work Phone: [facility] 250 DO Work Phone: 12-20-2019 influenza, seasonal, injectable, preservative free Vita Brown [facility] Work Phone: 12-17-2019 influenza virus vaccine, unspecified formulation No PCP None [facility] 250 DO Work Phone: 11-30-2019 influenza, injectabl e, quadrivalent, preservative free Francisco Li Work Phone: [facility] 250 DO Work Phone: 12-16-2018 influenza virus vaccine, unspecified formulation No PCP None [facility] 250 DO Work Phone: 12-16-2018 influenza, seasonal, injectable Francisco Li Work Phone: [facility] 250 DO Work Phone: 12-15-2017 influenza, injectabl e, quadrivalent, contains preservative Francisco Li Work Phone: [facility] 250 DO Work Phone: 03-22-2017 influenza virus vaccine, unspecified formulation No PCP None [facility] 250 DO Work Phone: 03-18-2008 influenza virus vaccine, unspecified formulation No PCP None [facility] 250 DO Work Phone: Payers Date Payer Category Payer Medicare [id number] 2022 Medicare [id number] 2022 Unknown [id number] 2020 Private Health Insurance [id number] 2017 Unknown [employer] [address] xxxxxxxxxxxx 2017-Present [phone] [address] [place] [address] xxxxxxxxxxxx [id number] .[id number] 2016 Medicare [id number] 2016 Self-pay [id number] 2014 Medicare [id number] 1.2.840.846358.1.13.239.2 .7.3.645255.315 1957 Unknown [id number] 2.16.840.1.362417.3.579.2 .176 1957 Unknown [id number] 2.16.840.1.021396.3.579.2 .175 1957 Unknown [id number] 2.16.840.1.114509.3.579.2 .175 1957 Unknown [id number] 2.16.840.1.024930.3.579.2 .175 1957 Unknown [id number] 2.16.840.1.439320.3.579.2 .177 1957 Unknown [id number] 2.16.840.1.924204.3.579.2 .177 1957 Unknown [id number] 2.16.840.1.338305.3.579.2 .718 1957 Unknown [id number] 2.16.840.1.914523.3.579.2 .718 1957 Unknown [id number] 2.16.840.1.834980.3.579.2 .718 1957 Unknown [id number] 2.16.840.1.487382.3.579.2 .1068 1957 Unknown [id number] 2.16.840.1.507362.3.579.2 .356 1957 Unknown [id number] 2.16.840.1.886533.3.579.2 .356 1957 Unknown [id number] 2.16.840.1.094201.3.579.2 .727 1957 Unknown [id number] 2.16.840.1.611639.3.579.2 .727 1957 Unknown [id number] 2.16.840.1.726505.3.579.2 .1244 1957 Unknown [id number] 2.16.840.1.521148.3.579.2 .1259 1957 Unknown [id number] 2.16.840.1.483636.3.579.2 .1259 1957 Unknown [id number] 2.16.840.1.587807.3.579.2 .1259 1957 Unknown [id number] 2.16.840.1.926801.3.579.2 .1259 1957 Unknown [id number] 2.840.1.362751.3.579.2 .1259 Unknown [id number] Unknown [id number] Unknown Unknown [id number] 2.16.840.1.764257.3.579.2 .531 Unknown [id number] 2.16.840.1.746829.3.579.2 .531 Unknown [id number] 2.16.840.1.111347.3.579.2 .531 Unknown [id number] 2.16.840.1.357657.3.579.2 .531 Unknown [id number] 2.16.840.1.276513.3.579.2 .531 Unknown [id number] 2.16.840.1.096863.3.579.2 .531 Unknown [id number] 2.16.840.1.555977.3.579.2 .531 Unknown [id number] 2.16.840.1.957569.3.579.2 .531 Unknown [id number] 2.16.840.1.912241.3.579.2 .531 Unknown [id number] 2.16.840.1.964063.3.579.2 .531 Unknown [id number] 2.16.840.1.573550.3.579.2 .531 Unknown [id number] 2.16.840.1.481507.3.579.2 .531 Unknown [id number] 2..840.1.521685.3.579.2 .531 Unknown [id number] 2.16.840.1.317623.3.579.2 .531 Unknown [id number] 2..840.1.250282.3.579.2 .531 Unknown [id number] 2.16.840.1.085120.3.579.2 .531 Unknown [id number] 2.16.840.1.722046.3.579.2 .531 Unknown [id number] 2.16.840.1.640999.3.579.2 .531 Unknown [id number] 2.16.840.1.725057.3.579.2 .531 Unknown [id number] 2..840.1.434144.3.579.2 .531 Unknown [id number] 2.16.840.1.023593.3.579.2 .531 Unknown [id number] 2.16.840.1.258352.3.579.2 .531 Unknown [id number] 2.16.840.1.838266.3.579.2 .531 Unknown [id number] 2.16.840.1.077099.3.579.2 .531 Unknown [id number] 2.16.840.1.998966.3.579.2 .531 Unknown [id number] 2.16.840.1.719733.3.579.2 .531 Unknown [id number] 2.16.840.1.840849.3.579.2 .531 Unknown [id number] 2.16.840.1.253941.3.579.2 .531 Social History Date Type Detail Facility Start: 05-12-2020 End: 02-26-2023 Tobacco smoking status TXIS Ex-smoker (finding) RICHARD JOHNSON [employer] Start: 1955 Sex Assigned At Male F [facility] Start: 03-18-1970 End: 03-18-2006 History of tobacco use Current smoker [employer] Start: 03-18-1970 End: 03-18-2006 History of tobacco use Cigarette Smoker [facility] Start: 06-30-2020 End: 10-27-2021 Cigarettes smoked current (pack per day) - Reported [employer] Work Phone: Comment on above: 1-2 cups of coffee d aily. quart of iced tea daily.; Quit in 2006; 1 cup of coffee week barney a quart of decaf iced tea daily, diet soda rarely; Start: 06-30-2020 End: 10-27-2021 Tobacco use and exposure Never used [facility] Start: 06-30-2020 End: 10-27-2021 Alcohol intake Ex-drinker (finding) [employer] Work Phone: Start: 1955 Sex Assigned At Not on file [facility] [email or web address] Work Phone: Start: 10-17-2021 End: 10-27-2021 Exposure to SARS-CoV-2 (event) Not sure [employer] Tobacco smoking consumption unknown [facility] Sex Assigned At [employer] Other Tobacco smoking status No Smokin g Status Entered [facility] Medical Equipment Procedure Code Equipment Code Equipment Origin al Text Equipment Identifier Dates Insertion, pacemaker Endocardial pacing lead [id number] FDA Start: 02-14-2023 Insertion, pacemaker Single-chamber implantable pacemaker, rate-responsive ()[id number] FDA Start: 02-14-2023 Ventriculo-perit onea l/atrial shunt valve [id number] FDA Start: 03-12-2021 Goals Date Patient Goal Desired Activity /State Functional Status Date Assessment Result Facility 02-15-2023 Functional status Patient Not at Baseline [facility] Work Phone: 02-10-2023 Functional status Patient at Baseline [facility] Work Phone: 09-24-2021 Functional status Patient at Baseline [facility] Work Phone: Functional observable [facility] Mental Status Date Assessment Result Facility 02-15-2023 Cognitive function Cognitive Sta tus Patient at Baseline [facility] Work Phone: 02-10-2023 Cognitive function Cognitive Sta tus Patient at Baseline [facility] Work Phone: 09-24-2021 Cognitive function Cognitive Sta tus Patient at Baseline [facility] Work Phone: 01-09-2021 Cognitive functi ons [id number] [facility] Clinical Notes 01-22-2017 to 04-04-2023 Note Date & Type Note Facility 04-04-2023 Evaluation note Encounter Date Diagnosis Assessment Notes Mar, Medicare annual wellness visit, subsequent (ICD-10 - Z00.00) Personalized health advice was given to the beneficiary with a referral, if appropriate, to health education of preventative counseling services or programs aimed at reducing identified risk factors and improving self-management or community-based lifestyle interventions to reduce health risks and promote self-management and wellness, including weight loss, physical activity, smoking cessation, fall prevention and nutrition. A written plan for screenings discussed, including colonoscopy, mammography, flu vaccination, other vaccinations if at risk, routine lab studies, eye exams, glaucoma screening, skin checks, risk factors for medical problems discussed, including BP control, obesity, and need for consistent exercise. Advanced care planning reviewed. Counseling was provided here today - specifically in regard to any positively answered questions as noted above. Mar, Type 2 diabetes mellitus with other circulatory complication, without long-term current use of insulin (ICD-10 - E11.59) Due for next A1c in May working on diet and exercise. Prior to your visit today we reviewed your chart and outlined the testing and treatment needed for your care. We discussed possible complications of diabetes including risk of heart disease, stroke, and kidney disease. Your goal is to keep uou HgA1C below 7 (preferably <6.5) and your blood pressure less than 130/85 (and preferably < 120/80) and mataining a healthy weight with a BMI less than 26. We are working together to acheive these goals with the following plan; healthier diet, understanding your medications, and your compliance. Barriers to these goals have been discussed. You have been given educational handouts. Mar, Type 2 diabetes mellitus with foot ulcer (ICD-10 - E11.621) Mar, Chronic kidney disease, stage 3a (ICD-10 - N18.31) Following with Nephrology, reviewed notes and next follow up is in April. Mar, Persistent atrial fibrillation (ICD-10 - I48.19) Follows with Cardiology. Has an appt Apr 17 for cardiac clearance for surgery Mar, Acquired hypothyroidism (ICD-10 - E03.9) Asymptomatic at this time, Denies any unexplained weight change, hair loss or fatigue. Patient to continue with above medication and we will continue to monitor through routine blood work Mar, Other congestive heart failure (ICD-10 - I50.9) Following with Cardiology and Nephrology Mar, Simple chronic bronchitis (ICD-10 - J41.0) Dtable. Prior to your visit today we reviewed your chart and outlined the testing and treatment needed for your care. We discussed the possible complications of COPD , including increased risk for acute exacerbation and respiratory failure. Our goal is to keep your COPD under control to avoid exacerbation and hospitalizations . maintain a healthy weight with a BMI less than 26. We are working together to achieve these goals with the following plan; healthier diet, increased activity and exercise, understanding your medications and your compliance, Mar, Cervical spondylosis without myelopathy (ICD-10 - M47.812) Following with Dr. Ding, will need surgical intervention in the near future. Mar, Peripheral polyneuropathy (ICD-10 - G62.9) Follows with Dr. Danielosn-- yearly and is on Gapabentin. Mar, Primary hyperparathyroidism (ICD-10 - E21.0) Following with nephrology and ENT -- Jerri Lewis -- has been referred to ENT Surgeon for evaluation and surgical intervention, awaiting to schedule. Mar, Anxiety (ICD-10 - F41.9) Patient is not suicidal or homicidal at this time. Discussed treatment options with patient today. It was decided in collaboration with the patient to continue on Fluoxetine and Buspar daily for management with depression/anxie ty. Medication profile and possible SE reviewed with patient today. Patient to take medication as directed and prescribed. Do not skip/miss doses and do not stop abruptly. Patient is not interested in counseling at this time. Warning s/s reviewed with patient today. Patient to go immediately to the ER should patient experience any of these. Patient verbalizes understanding and agrees to treatment plan. Mar, Pacemaker (ICD-10 - Z95.0) Stable. Follows with Cardiology Mar, Restless leg syndrome (ICD-10 - G25.81) Notes that DR. Soto increased to 2 tablets as week ago, but has noted no difference in his restless leg syndrome will increase to 1 mg dose. Pt to call with effectiveness. Mar, GERD (gastroesophageal reflux disease) (ICD-10 - K21.9) Reflux symptoms remain unchanged. Discussed the importance of meal content. They should avoid overeating and eating meals late in the evening. Take medication as directed and we will continue to monitor. 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 Mar, Tinnitus of both ears (ICD-10 - H93.13) Notes that he was on FLonase previously and this was working and he stopped and would like a refill. Mar, Insomnia, unspecified type (ICD-10 - G47.00) We discussed how the body's natural circadian rhythm (or body clock ) profoundly affects insomnia. The patient is advised to awaken at the same time every day and be exposed to light and activity at that time in order to trigger clock synchronization. The patient is also strongly advised to limit time in bed to 7 or 8 hours at most and did not be awake in the bed if unable to sleep. Detailed sleep restriction therapy recommendations were reviewed, and the patient expresses good understanding; The patient is advised to adhere to a proper sleep hygiene schedule and to assure adequate total sleep time. The patient is instructed to: Not take naps until the insomnia is controlled; Not be awake in bed for more than 20 minutes; Not use the bed for reading, watching TV, working, or resting if unable to sleep. Also will trial on Trazadone. Pt to call with effectiveness. [employer] Other 01-08-2024 Evaluation note* Encounter Date Diagnosis Assessment Notes Treatment Notes Treatment Clinical Notes Mar, Restless leg syndrome (ICD-10 - G25.81) [employer] Other 01-03-2024 Evaluation note* Encounter Date Diagnosis Assessment Notes Treatment Notes Treatment Clinical Notes Mar, Anxiety (ICD-10 - F41.9) Patient is not suicidal or homicidal at this time. Discussed treatment options with patient today. It was decided in collaboration with the patient to increase Fluoxetine and Buspar daily for management with depression/anxiety. Also given a short supply of the xanax to george while starting the medicaiton due to panic attacks and not being able to sleep. Medication profile and possible SE reviewed with patient today. Patient to take medication as directed and prescribed. Do not skip/miss doses and do not stop abruptly. Patient is not interested in counseling at this time. Warning s/s reviewed with patient today. Patient to go immediately to the ER should patient experience any of these. Follow up in 4 weeks to assess symptoms and medication effectiveness. Patient verbalizes understanding and agrees to treatment plan. [employer] Other 12-27-2023 Evaluation note* Encounter Date Diagnosis Assessment Notes Treatment Notes Treatment Clinical Notes Feb, Primary hyperparathyroidism (ICD-10 - E21.0) [employer] Other 12-22-2023 Evaluation note* Encounter Date Diagnosis Assessment Notes Treatment Notes Treatment Clinical Notes Feb, Type 2 diabetes mellitus with other circulatory complication, without long-term current use of insulin (ICD-10 - E11.59) Feb, Anxiety (ICD-10 - F41.9) [employer] Other 12-19-2023 Evaluation note* Encounter Date Diagnosis Assessment Notes Treatment Notes Treatment Clinical Notes Feb, Anxiety (ICD-10 - F41.9) Patient is not suicidal or homicidal at this time. Discussed treatment options with patient today. It was decided in collaboration with the patient to start Fluoxetine daily for management with depression/anxiety. Also given a short supply of the xanax to george while starting the medicaiton due to panic attacks and not being able to sleep. Medication profile and possible SE reviewed with patient today. Patient to take medication as directed and prescribed. Do not skip/miss doses and do not stop abruptly. Patient is not interested in counseling at this time. Warning s/s reviewed with patient today. Patient to go immediately to the ER should patient experience any of these. Follow up in 4 weeks to assess symptoms and medication effectiveness. Patient verbalizes understanding and agrees to treatment plan. Feb, Other congestive heart failure (ICD-10 - I50.9) Pt is following up with cardioloy-- Dr Soto does not have an appointment until March. He is have increased swelling in bilateral legs after having medications adjusted per nephrology. He did call nephrology and they increased the Bumex but this did not help with the swelling. Discussed with pt to call Cardiology as well as nephrology for further instruction of how to adjust his Bumex. Feb, Persistent atrial fibrillation (ICD-10 - I48.19) Continues to follow with Cardiology and did have a pacemaker placed last month. Feb, Status post biventricular cardiac pacemaker insertion (ICD-10 - Z95.0) Feb, Bilateral lower extremity edema (ICD-10 - R60.0) see above -- under congestive heart failure. [employer] Other 12-12-2023 Progress note Author Sumit De La Cruz [facility] February 26, 2023 1:09pm Note Date/Time February 26, 2023 11:48am [facility] [address] [place] [address] Wound Center Provider Note Signed Patient: Sandra Potter MR#: [id number] : 1955 Acct:[id number] Age/Sex: 67 / M Copies to: MD Teri Vu, DO Sima Wagner APRN~ HPI Date of Visit Date of Visit: Date of Service: 02/26/2023 Time of Service: 11:44 Narrative HPI: 02/26/23 Adenike is a 67-year-old male presenting to [facility] wound care program for an initial visit for evaluation and treatment of a left great toe ulceration. He tells me that he is here today for a second opinion because he saw Dr. Bolden last week and has been following with him weekly. After the visit today I did give him my opinion based on many different factors such as proper offloading, diabetes, and chronic infection and since he prefers to not stay with his current shaker tender I did highly recommend Dr. Espinoza, and he and his do agree to this referral. We called the office and they do accept his insurance. I did decide to start topical antimicrobials such as Vashe Cleanser as well as Iodoflex dressings. [facility] nursing will be started for the skilled dressings and the taxing effort to leave the home. We will not reappoint at this time but he can call if he does not hear from podiatry in the next few days. I did review the bone scan done last month and at this time I will see what podiatry thinks as far as the notation about the comment that osteomyelitis cannot be ruled out- I was not able to probe to bone today in the ulcer but the ulcer has been present for months and it is very possible for an infection to have made it to the bone by now. A low inflammation diet can support healing as well as the supplements listed onhis discharge paperwork. 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 Atrial fibrillation Cardiomyopathy Chronic renal disease Diabetes mellitus Hx of intestinal obstruction Hyperlipemia Hypertension Hypothyroid Large B-cell lymphoma ZAYRA (obstructive sleep apnea) no device Pacemaker Presence of Watchman left atrial appendage closure device Skin ulcer of left great toe Surgical History H/O cardiac radiofrequency ablation H/O heart artery stent History of hernia surgery History of orthopedic surgery knee torn cartliadge S/P gastric surgery Family History Mother Cardiovascular disease Diabetes Dementia Father Cardiovascular disease Diabetes Dementia Social History Smoking Status: Former smoker Tobacco Type: cigarettes Substance Use Type: None Grafts History of Graft History of Graft?: No Exam Physical Exam Vital Signs: Temp Pulse Resp BP O2 Del Method 97.5 F L 82 20 187/94 H Room Air 02/26/23 11:27 02/26/23 11:27 02/26/23 11:27 02/26/23 11:27 02/26/23 11:27 Const General: cooperative, comfortable and no acute distress Nutritional Appearance: obese Orientation: alert, awake and oriented x3 Lower/Upper Extremity Exam Vascular Exam-Edema Left Foot: Edema Type: Non-Pitting Vascular Exam-Pulses Left Brachial: Pulse Assessment Method: NIBP Left Dorsalis Pedis: Pulse Assessment Method: Palpation Left Posterior Tibial: Pulse Assessment Method: Palpation Objective Meds/Allergies Home Medications albuterol sulfate 90 mcg/actuation aerosol inhaler 1 puff inhalation Q4-6H PRN Shortness Of Breath Or Wheezing 12/24/16 [History Confirmed 02/26/23] allopurinol 300 mg tablet 300 mg PO DAILY 12/24/16 [History Confirmed 02/26/23] magnesium oxide 400 mg (241.3 mg magnesium) tablet 500 mg PO BID 12/24/16 [History Confirmed 02/26/23] omeprazole 40 mg capsule,delayed release 40 mg PO BID 12/24/16 [History Confirmed 02/26/23] tramadol 50 mg tablet 100 mg PO QID PRN Pain 07/28/19 [History Confirmed 02/26/23] aspirin 81 mg capsule 81 mg PO HS 09/20/21 [History Confirmed 02/26/23] cholecalciferol (vitamin D3) 100 mcg (4,000 unit) capsule 4,000 unit PO DAILY 09/20/21 [History Confirmed 02/26/23] atorvastatin 20 mg tablet 20 mg PO HS 04/03/22 [History Confirmed 02/26/23] glipizide 2.5 mg tablet, extended release 24 hr 2.5 mg PO BID 04/03/22 [History Confirmed 02/26/23] tizanidine 4 mg tablet 4 mg PO TID 04/03/22 [History Confirmed 02/26/23] gabapentin 600 mg tablet 1,200 mg PO BID #360 tabs 04/20/22 [Rx Confirmed 02/26/23] biotin 10,000 mcg disintegrating tablet 10,000 mcg PO DAILY 11/27/22 [History Confirmed 02/26/23] levothyroxine 25 mcg tablet (Synthroid) 25 mcg PO DAILY 02/06/23 [History Confirmed 02/26/23] sennosides 8.6 mg-docusate sodium 50 mg tablet 2 tab-cap PO QHS 02/06/23 [History Confirmed 02/26/23] thiamine HCl (vitamin B1) 100 mg tablet (Vitamin B-1) 100 mg PO DAILY 02/06/23 [History Confirmed 02/26/23] bumetanide 0.5 mg tablet 0.5 mg PO DAILY@0800 #30 tabs 02/10/23 [Rx Confirmed 02/26/23] potassium chloride 20 mEq tablet,extended release(part/cryst) (Klor-Con M) 40 meq PO TID #90 tabs 02/10/23 [Rx Confirmed 02/26/23] spironolactone 25 mg tablet 25 mg PO BID #60 tabs 02/10/23 [Rx Confirmed 02/26/23] piroxicam 10 mg capsule 10 mg PO DAILY 02/12/23 [History Confirmed 02/26/23] oxycodone-acetaminophen 5 mg-325 mg tablet 1 tab PO Q6H PRN Pain Scale 6 - 10 6 days #18 tabs 02/15/23 [Rx Confirmed 02/26/23] Allergies diltiazem Adverse Reaction (Verified 02/12/23 14:58) Palpitations lisinopril Adverse Reaction (Verified 02/12/23 14:58) Swelling of Lip/Tongue/Throat morphine Adverse Reaction (Verified 02/12/23 14:58) Palpitations Wound/Ulcer Left Great Toe: Type: Diabetic Ulcer Diabetic Ulcer Grading: Deep Ulcer: reaches tendon, bone, or joint capsule, fat layer exposed Bed Appearance: Beefy Red and [place] Percent of Wound Bed Granulated/Red: 100 Percent of Devitalized: 0 Length (cm): 0.9 Width (cm): 0.9 Depth (cm): 0.7 CM Sq: 0.810 Undermining Position: 360 Undermining Depth: 0.3 Surrounding Tissue Appearance: Callous Surrounding Tissue Temp: Warm Drainage Amount: Moderate Drainage Description: Serosanguineous Drainage Odor: No Odor Procedures Time Out: 2 Patient Identifiers, Correct Patient, Correct Side/Site, Correct Procedure and Safety Issues Reviewed Procedure: The left great toe ulcer was not anesthetized with topical 2% lidocaine gel. A curette was used to perform debridement for the removal of 0.5 cm? of devitalized tissue consisting of skin and slough. Debridement was down to healthy bleeding tissue. Estimated blood loss was moderate. Hemostasis was achieved by applying pressure. The left great toe ulcer now appears the same and the size remains the same. The patient tolerated well with no pain. Results Height: 5 ft 11 in Weight: 110.677 kg Body Mass Index: 34.0 Assessment/Plan Assessment/Plan (1) Diabetic foot ulcer: Qualifiers: Diabetic foot ulcer location: toe Diabetes mellitus type: type 2 Laterality: left Non-pressure ulcer stage: with fat layer exposed Qualified Code(s): E11.621 - Type 2 diabetes mellitus with foot ulcer; L97.522 - Non-pressure chronic ulcer of other part of left foot with fat layer exposed Code(s): E11.621 - Type 2 diabetes mellitus with foot ulcer; L97.509 - Non-pressure chronic ulcer of other part of unspecified foot with unspecified severity Status: Chronic (2) Osteomyelitis: Qualifiers: Osteomyelitis type: other chronic Osteomyelitis location: foot Laterality: left Qualified Code(s): M86.672 - Other chronic osteomyelitis, leftankle and foot Code(s): M86.9 - Osteomyelitis, unspecified Status: Suspected (3) Diabetes 1.5, managed as type 2: Code(s): E13.9 - Other specified diabetes mellitus without complications Status: Chronic (4) Peripheral neuropathy: Code(s): G62.9 - Polyneuropathy, unspecified Status: Chronic (5) CKD (chronic kidney disease) stage 3, GFR 30-59 ml/min: Code(s): N18.3 - Chronic kidney disease, stage 3 (moderate) Status: Chronic (6) Obesity (BMI 35.0-39.9 without comorbidity): Code(s): E66.9 - Obesity, unspecified Status: Chronic (7) Inflammation: Status: Chronic Time spent with patient Time Spent With Patient (min): 18 Dictated By: Sima Wagner APRN DD/ 1144 Signed By: <Electronically signed by GOLDEN Wagner> 02/26/23 1156 <Electronically signed by MD Sumit De La Cruz> 02/26/23 1305 [facility] Work Phone: [phone] 134-248312-07-2023 Evaluation note* Encounter Date Diagnosis Assessment Notes Treatment Notes Treatment Clinical Notes Feb, Chronic kidney disea se, stage 3a (ICD-10 - N18.31) Patient has mild CKD stage IIIa related to DM2 and CHF. Serum creatinine did improve after decreasing diuretics and holding metolazone. Creatinine down to 1.2 to 1.3 mg/dL. Patient was just started on Piroxicam for severe arthritis. Risks of nonsteroidal anti-inflammatory drugs especially with persistent long-term use has been addressed. He agrees to use NSAIDs as needed for pain relief since he has reasonable renal function. Feb, Electrolyte and flui d disorder (ICD-10 - E87.8) Patient had multiple electrolyte abnormalities including hyperkalemia with potassium 6.9 while in large potassium supplements followed by severe hypokalemia on low-dose diuretics currently on potassium chloride 40 mEq twice a day. Potassium did improve up to 5 mEq/L after addition of spironolactone. Metolazone was stopped. Considering the severe hypokalemia on diuretics, I will check creatinine and I will still want to rule out secondary hyperparathyroidism . He was advised to continue spironolactone 25 mg twice a day and will decrease potassium further to 20 mEq twice a day to avoid recurrent hyperkalemia specially currently on NSAIDs, Piroxicam Recheck renal panel in 3 weeks and again in 6 weeks to ensure stability of potassium and sodium. Feb, Primary hyperparathyroidism (ICD-10 - E21.0) Patient has persistently elevated intact PTH with low phosphorus and hypercalcemia. He stated that he had a thyroid scan with obvious nodule. He is currently on conservative treatment since he has no kidney stones and calcium is mildly elevated. Will continue bumetanide 0.5 mg to be increased if needed if calcium increased more than 11.5 mg/dL Feb, CHF (congestive hear t failure) (ICD-10 - I50.9) Patient has recurrent diastolic CHF in the setting of A-fib s/p pacemaker insertion for severe bradycardia. Feb, DM (diabetes mellitu s) (ICD-10 - E11.9) Patient stated that diabetes is well-controlled. He has multiple diabetic complications including diabetic neuropathy. Feb, Twitching (ICD-10 - R25.3) Patient has twitching in both lower extremities. He has diabetic neuropathy on large dose gabapentin. He was advised to decrease the dose of gabapentin to 600 mg twice a day and monitor his symptoms. He may need to cut the dose further to 300 mg twice a day if he continues to have twitches and extraparametal symptoms. Fuzz Other 12-04-2023 Evaluation note* Encounter Date Diagnosis Assessment Notes Treatment Notes Treatment Clinical Notes Feb, Fatigue, unspecified type (ICD-10 - R53.83) Advbised to complete labs today. Offered patient reassurrance and support. Advsied that sometimes it will take a few weeks to feel more energetic after the pacemaker. Pt offered understanding. Feb, Encounter for examination following treatment at hospital (ICD-10 - Z09) Pt to follow up this with Cardiology and Renal physicians. Labs ordere dto assess current continued fatigue. Feb, Encounter for insert ion of cardiac resynchronization therapy pacemaker (GYMNASTICS COACH OR INSTRUCTOR-P) (ICD-10 - Z45.018) Feb, Status post biventricular cardiac pacemaker insertion (ICD-10 - Z95.0) Pt is following up with start up specialist this . Pt agreed to POC Feb, Swelling of left low er extremity (ICD-10 - M79.89) Feb, Swelling of left gottlieb d (ICD-10 - M79.89) Advised swelling and discomfort is normal after the pacemaker insertion to the left arm and hand due to decreased movement will monitor. Feb, Hypomagnesemia (ICD- 10 - E83.42) Complete labs as ordered Feb, Hypokalemia (ICD-10 - E87.6) Complete labs as ordered Feb, Hypocalcemia (ICD-10 - E83.51) Complete as ordered. Fuzz Other 12-04-2023 Evaluation note* Encounter Date Diagnosis Assessment Notes Treatment Notes Treatment Clinical Notes Feb, Elevated serum free T4 level (ICD-10 - R79.89) Feb, Chronic fatigue, unspecified (ICD-10 - R53.82) Feb, Bradycardia (ICD-10 - R00.1) Fuzz Other 11-26-2023 Discharge summary Author Subhash Duckworth [facility] February 10, 2023 3:01pm Note Date/Time February 10, 2023 3:02pm [facility] [address] [place] [address] Discharge Summary Signed Patient: Sandra Potter MR#: [id number] : 1955 Acct:[id number] Age/Sex: 67 / M Adm Date: 3 Loc: Room: [address] [place] [address]: Subhash Duckworth MD Copies to: Teri Aragon, DO Subhash Duckworth MD~ Providers Date of Discharge: 02/10/23 Discharging Provider: Subhash Duckworth Primary Care Provider: Teri Aragon Consults: 02/06/23 16:32 Consult to Cardiology Routine Consult to Occupational Therapy Routine Consult to Physical Therapy Routine 02/07/23 12:37 Consult to Nephrology Routine Discharge Diagnosis (1) Hypokalemia: (2) Hyperkalemia: (3) CKD (chronic kidney disease) stage 3, GFR 30-59 ml/min: (4) Hypercalcemia: (5) Type 2 diabetes mellitus with peripheral neuropathy: (6) Bradycardia: Final Diagnosis Final Discharge Diagnosis: 1. Symptomatic bradycardia with atrial fibrillation with very slow ventricular rate consistent with AV deon disease but appears to be well-tolerated at the moment. Heart rate seem to have recovered over the last 48 hours has not had significant bradycardia he does have an element of AV deon disease based on hisheart rate is controlled without any AV blocking agent. plan for conservative management for now. Plan for Holter monitor as directed. 2. Coronary artery disease with remote PCI to the LAD 3. Patient suspected to have apical hypertrophic cardiomyopathy. 4. Chronic diastolic heart failure requiring large doses of diuretics and potassium replacement. persistent hypokalemia on daily supplements and Aldactone. Follow with nephrology for further workup. 5. Morbid obesity 6. History of B-cell lymphoma 7. Intolerance to anticoagulation 8. Status post Watchman device 9. Sleep apnea 10. Peripheral vascular disease with multiple toe amputation and currently unhealed ulcer of the fourth 11. Initial presentation with mild hyperkalemia now hypokalemic 12. History of lower extremity edema and diastolic heart failure has been on high-dose diuretics Summary Hospital Course Hospital course: A 67-year-old white male with past medical history of obesity, hypertension, hyperlipidemia, diabetes type 2, coronary artery disease status post angioplasties, history of ischemic cardiomyopathy, hypothyroidism, history of large B-cell lymphoma, obstructive sleep apnea presented emergency room with generalized weakness. He has been feeling well for the last couple weeks. he started feeling weak couple of days prior coming in, associated with dizziness. He describes as lightheadedness. He denies having shortness of breath. No palpitation. Denies orthopnea and PND. He has been having worsening leg edema. He denies having any nausea or vomiting. No abdominal pain. Denies any dysuria, hematuria, frequency. No hematemesis, melena, or hematochezia. Upon presentation to emergency room he was bradycardic with heart rate went to the 30s. Patient was admitted to the hospital for further evaluation and managementof symptomatic bradycardia with consideration for pacemaker implantation. Cardiology was consulted during hospital course and patient was monitored closely on cardiac monitoring, initially his heart rate was in 40s to 50s. Potassium level noted to be as low as 2.5 for which she required oral and IV KClreplacement. Nephrology also was consulted and has been following with the patient regarding his CKD to maintain stable kidney function. Patient with evidence of borderline hypomagnesemia that may be contributing to his hypokalemia, he was supplemented with IV magnesium as well as daily magnesium supplements orally. Patient was noted to have significant diuresis more than 3 L a day which might be contributing as well to his hypokalemia specially large urinary potassium that was noted. medications has been adjusted, particularly his Bumex decreased to 0.5 mg daily mainly for his mild hypercalcemia which is related to his hyperparathyroidism, PTH was checked which noted to be elevated, however phosphorus level is on the low side, no kidney stones on the ultrasound. Recommendation to continue conservative management at this point. Persistent hypercalciuria may be associated with hypokalemia. Patient was altered running and aldosterone ratio to rule out possibility of hyperparathyroidism consideringthe severity of hypokalemia and metabolic alkalosis. Discussed with nephrology team, plan to adjust KCl supplements to 40 mEq 3 times daily, Bumex 0.5 mg daily, spironolactone 25 mg twice daily. Advised to follow-up to repeat labs in5 to 7 days to check renal function and potassium and then follow-up with nephrology for further workup and management. patient was cleared for discharge from nephrology standpoint. Cardiac barron, patient's heart rate recovered and was monitored over 48 hours with no episodes of bradycardia. Cardiology team has discussed with patient and his regard to treatment option given his heart recovery, eventually they agreed to hold off pacemaker at this time and continue with observant approach with outpatient event monitor for further monitoring and evaluation with consideration of pacemaker in outpatient settingsif bradycardia recurs. Patient seems in agreement with this plan. Discussed with patient at bedside, all question answered, patient is comfortable and in agreement with discharge plan at this time. Patient has multiple complex medical issues as listed above and others that are not listed. All appear to be stable at this time. Patient is feeling significantly better and feeling comfortable with this plan of discharge. I do not have any clear or strong clinical justification to extend inpatient hospitalization. Patient however will require close and the frequent monitoringas well as additional work-up, investigation and therapeutic intervention that could take place from this point on post discharge. That is to prevent relapse,decompensation, rehospitalization and other medical implications. Outpatient follow up as directed for continuity of care. Verbal and written discharge instructions will be provided to the patient. Condition Condition at Discharge: Stable Time Spent with Patient Time spent providing/coordinating discharge services (# min): 43 Surgeries and Procedures Operation Date: 02/11/23 16:30 <No data on this case meets the specified criteria> Diagnostic Studies Completed and Pending Studies Pending studies at discharge: 02/10/23 09:02 Aldosterone Routine Renin Activity Routine 02/11/23 05:00 Partial Thromboplastin Time Stat Prothrombin Time INR Stat Basic Metabolic Panel [CHEM] Stat Complete Blood Count Auto Diff Stat Labs on day of discharge: 02/10/23 06:50: PHA Creatinine Clear 58.79, Sodium 138, Potassium 3.1 L, Chloride 99, Carbon Dioxide 29.9, Anion Gap 12.2, BUN 37 H, Creatinine 1.58 H, Est GFR (CKD- EPI) 48.242, Glucose 114 H, Calcium 10.8 H, Phosphorus 2.5, Magnesium 2.0, Albumin 3.8 02/09/23 21:48: Potassium 3.3 L 02/09/23 14:09: PHA Creatinine Clear 55.13, Sodium 137, Potassium 2.8 L*, Chloride 96 L, Carbon Dioxide 30.3, Anion Gap 13.5, BUN 35 H, Creatinine 1.70 H, Est GFR (CKD-EPI) 44.185, Glucose 198 H, Calcium 10.8 H Exam Physical Exam Vital Signs: Temp Pulse Resp BP Pulse Ox O2 Del Method 98.0 F 75 16 138/75 98 Room Air 02/10/23 08:00 02/10/23 12:33 02/10/23 12:33 02/10/23 12:33 02/10/23 12:33 02/10/23 12:33 Narrative: Const General: cooperative, obese HEENT Normal oropharyngeal mucosa without any ulcers or exudates Eyes: Conjunctiva normal Pulmonary Auscultation: clear to auscultation , no crackles, no wheezes Cardiovascular Rate: normal rate Rhythm: regular rhythm Heart Sounds: S1 normal, S2 normal and no murmurs GI Inspection: obese Palpation: soft, not firm and nontender. No rigidity or rebound. Deferred Neuro General: alert, awake and oriented x3. No obvious new focal deficit Musculoskeletal: normal range of motion Extrem General: no cyanosis, no pedal edema Psych Appearance: appropriate affect. Grossly normal Discharge Plan Discharge Plan Patient Disposition: Home Activity: Ambulate as Tolerated Additional Instructions: New adjustments to your home medications: -Take 0.5 mg of Bumex daily -Take potassium tablets 40 meq three times daily -Take spironolactone 25 mg twice daily -New prescriptions sent to your pharmacy -Blood work ordered for you in few days to check your kidney function and potassium level -Follow-up with your primary doctor, nephrology, cardiology Prescriptions: New spironolactone 25 mg Tablet 25 mg PO BID Qty: 60 0RF potassium chloride [Klor-Con M20] 20 mEq Tablet,Er Particles/Crystals 40 meq PO TID Qty: 90 0RF bumetanide 0.5 mg Tablet 0.5 mg PO DAILY@0800 Qty: 30 0RF Continued cholecalciferol (vitamin D3) 100 mcg (4,000 unit) Capsule 4,000 unit PO DAILY aspirin 81 mg Capsule 81 mg PO HS atorvastatin 20 mg Tablet 20 mg PO HS tizanidine 4 mg Tablet 4 mg PO TID glipizide 2.5 mg Tablet Extended Release 24hr 2.5 mg PO BID sennosides-docusate sodium 8.6-50 mg Tablet 2 tab-cap PO QHS thiamine HCl (vitamin B1) [Vitamin B-1] 100 mg Tablet 100 mg PO DAILY levothyroxine [Synthroid] 25 mcg tablet 25 mcg PO DAILY omeprazole 40 mg Capsule,Delayed Release(Dr/Ec) 40 mg PO BID magnesium oxide 400 mg Tablet 500 mg PO BID allopurinol 300 mg Tablet 300 mg PO DAILY albuterol sulfate 90 mcg/actuation Hfa Aerosol Inhaler 1 puff INHALATION Q4-6H PRN (Reason: Shortness Of Breath Or Wheezing) tramadol 50 mg Tablet 100 mg PO QID PRN (Reason: Pain) gabapentin 600 mg Tablet 1,200 mg PO BID Qty: 360 0RF biotin 10,000 mcg Tablet,Disintegrating 10,000 mcg PO DAILY Discontinued potassium chloride 20 mEq Tablet Extended Release 160 meq PO HS potassium chloride 20 mEq tablet extended release 200 meq PO QAM spironolactone 25 mg tablet 25 mg PO DAILY metolazone 2.5 mg Tablet 5 mg PO DAILY Rx Instructions: take 30 minutes before bumex bumetanide 2 mg Tablet 4 mg PO QAM Other Ambulatory Orders: Basic Metabolic Panel (Routine) Timeframe: 5 Days Location: Determined by Patient Ordered By: Subhash LANG cardiac event monitor (Routine) Timeframe: 1 Day Facility: [facility] - Location: [address] [place] [address] - O/P Ordered By: Deanne Gaxiola Follow Up: Teri Aragon DO [Primary Care Provider] - (Call office on Saturday to schedule follow-up with your Primary Care Provider in 3-5 days. ) Documented By: Subhash Duckworth MD 02/10/23 14 51 Signed By: <Electronically signed by Subhash Duckworth MD> 02/10/23 1501 [facility] Work Phone: 1([phone] 602-704211-26-2023 Progress note Author Mina Reilly [facility] February 10, 2023 2:13pm Note Date/Time February 10, 2023 2:08pm [facility] [address] [place] [address] Nephrology Progress Note Signed Patient: Sandra Potter MR#: [id number] : 1955 Acct:[id number] Age/Sex: 67 / M Adm Date: 3 Loc: Room: [address] [place] [address] Type: ADM IN Attending Dr: Subhash Duckworth MD Copies to: ~ Date of Service: 02/10/2023 Subjective Subjective Narrative: Mr. Potter is a 67-year-old white gentleman with multiple comorbidities includinglarge B-cell lymphoma that is currently in remission after chemotherapy, DM2, s/p gastric bypass surgery , ischemic cardiomyopathy s/p PCI to the LAD, A-fib s/p Watchman device due to intolerance to anticoagulation with recurrent CHF requiring large doses of diuretics including bumetanide and metolazone. Patienthad history of hyperkalemia on large dose of potassium supplement at home 200 mEq daily. Patient has mild CKD stage III with variable serum creatinine between 1.5 to 1.7 mg/dL over the last 10 years. Indeed, he was seen by my partner Dr. Rain in 2011 and his creatinine at that time was 1.7 mg/dL however he is currently follow-up with his PCP only. Patient came to the ER because of weakness for the last couple of weeks associated with dizziness and intermittent lightheadedness. He has been having worsening lower extremity edema and spironolactone was recently added by Dr. Burgess. In the ER, patient was found to have A-fib with bradycardia with heartrate 30s. He was found also to have hyperkalemia with potassium 6.5 mEq/L. Creatinine was up to 1.8 mg/dL as well. BNP was only 151. TSH 4.68. COVID 19 PCR was negative. Patient was not on any beta-blockers. She was treated with Lokelma for hyperkalemia and nephrology was consulted. I did review the chart overnight and since the patient has been on high-dose potassium chloride 2 mEq daily in addition to spironolactone, I just increased the dose of bumetanide to 2 mg twice a day and repeat potassium was down to 3.7 mg/L so I did stop Lokelmaand bumetanide was decreased To 1 mg twice a day. Today potassium is further down to 2.7 mEq/L so 40 MEQ potassium chloride was given. Magnesium is 1.6 mg/dL on admission Interval history: Patient continues to have significant hypokalemia despite discontinuation of sodium zirconium cyclosilicate and IV and oral potassium supplement yesterday. Spironolactone was increased as well to 25 mg twice a day and bumetanide was decreased to 0.5 mg twice a day. Patient still has polyuria 3 to 4 L daily after addition of spironolactone. Potassium today 3.1. He has mild metabolic alkalosis with CO2 29.9. Patient has no symptoms. Creatinine 1.58 mg/dL. He still on bumetanide 0.5 mg twice a day. Patient denies any shortness of breath. He has minimal edema Exam Physical Exam Vital Signs: Temp Pulse Resp BP Pulse Ox O2 Del Method 36.7 C 75 16 138/75 98 Room Air 02/10/23 08:00 02/10/23 12:33 02/10/23 12:33 02/10/23 12:33 02/10/23 12:33 02/10/23 12:33 Narrative: Constitutional: Moderately obese, appears comfortable and not in distress HEENT: Atraumatic, normocephalic. No pallor or jaundice. Cardiovascular: Irregular, normal S1-S2, no gallop or rub, No JVD Respiratory: Good bilateral air entry no wheezing or crackles Gastrointestinal: Soft, non tender, positive bowel sounds. No palpable organs or masses per Extremities: 1+ edema. He stated that left leg is always more swollen than the right 1. He has some varicosities on the left leg with no previous surgeries. He has wounds on the plantar surface of right great toe. He has multiple toes amputation. He follow-up with Dr. Bolden, podiatry. Skin: No rashes or bruises Neurology: Awake, alert, oriented ?3, No focal motor or sensory deficits Psych: Normal mood and affect Objective Intake and Output I&O: Intake & Output 02/07/23 02/08/23 02/09/23 02/10/23 23:59 23:59 23:59 23:59 Intake Total 1500 / 1500 1750 / 1750 1300 / 1300 150 / 150 Output Total 2099 / 2099 4725 / 4725 3400 / 3400 725 / 725 Balance -600 / -600 -2975 / -2975 -2100 / -2100 -575 / -575 Weight 117.2 kg 111.7 kg 112 kg 110 kg Meds and Allergies Meds: Active Medications Acetaminophen (Acetaminophen 325 Mg Tablet) 650 mg PO Q6HR PRN PRN Reason: Pain Scale 1 - 3 or fever Stop: 02/06/24 16:29 Last Admin: 02/10/23 08:58 Dose: 650 mg Albuterol (Albuterol Hfa 60 Puff/8 Gram Inhaler) 1 puff INHALATION Q4H PRN PRN Reason: Shortness Of Breath Or Wheezing Stop: 02/06/24 16:28 Allopurinol (Allopurinol 300 Mg Tablet) 300 mg PO DAILY [facility] Stop: 02/07/24 08:59 Last Admin: 02/10/23 08:50 Dose: 300 mg Aspirin (Aspirin 81 Mg Tablet.) 81 mg PO [facility] Stop: 02/06/24 21:59 Last Admin: 02/09/23 23:25 Dose: Not Given Atorvastatin Calcium (Atorvastatin 20 Mg Tablet) 20 mg PO HS [facility] Stop: 02/06/24 21:59 Last Admin: 02/09/23 23:25 Dose: Not Given Atropine Sulfate (Atropine Sulfate 1 Mg/10 Ml Syringe) 1 mg IV-PUSH ONCE PRN PRN Reason: Bradycardia Bisacodyl (Bisacodyl 5 Mg Tablet.) 10 mg PO DAILY PRN PRN Reason: Constipation Stop: 02/06/24 16:29 Bumetanide (Bumetanide 0.5 Mg Tablet) 0.5 mg PO DAILY@0800 [facility] Stop: 02/11/24 07:59 Enoxaparin Sodium (Enoxaparin 40 Mg/0.4 Ml Syringe) 40 mg SUBCUT DAILY@10 [facility] Stop: 02/07/24 09:59 Last Admin: 02/10/23 10:35 Dose: Not Given Gabapentin (Gabapentin 600 Mg Tablet) 1,200 mg PO BID [facility] Stop: 02/06/24 20:59 Last Admin: 02/10/23 08:49 Dose: 1,200 mg Glipizide (Glipizide 2.5 Mg Tab.Er.24) 2.5 mg PO BID.WITH.MEALS [facility] Stop: 02/07/24 07:59 Last Admin: 02/10/23 08:50 Dose: 2.5 mg Sodium Chloride (0.9% Sodium Chloride 1,000 Ml) 1,000 mls @ 20 mls/hr IV .Q24H [facility] Stop: 02/11/24 15:59 Gentamicin Sulfate 220 mg/ (Sodium Chloride) 105.5 mls @ 211 mls/hr IV PREOP ONE Stop: 02/11/23 14:31 Vancomycin HCl 1.5 gm/ (Dextrose) 530 mls @ 353.333 mls/hr IV PREOP ONE; Protocol Stop: 02/11/23 15:29 Levothyroxine Sodium (Levothyroxine 25 Mcg Tablet) 25 mcg PO DAILY@0630 [facility] Stop: 02/07/24 06:29 Last Admin: 02/10/23 06:52 Dose: 25 mcg Magnesium Oxide (Magnesium Oxide 400 Mg Tablet) 400 mg PO BID [facility] Stop: 02/06/24 20:59 Last Admin: 02/10/23 08:49 Dose: 400 mg Melatonin (Melatonin 5 Mg Tablet) 5 mg PO QHS PRN PRN Reason: Insomnia Stop: 02/06/24 16:29 Last Admin: 02/08/23 21:51 Dose: 5 mg Ondansetron HCl (Ondansetron 4 Mg/2 Ml Vial) 4 mg IV-PUSH Q8H PRN PRN Reason: Nausea And Vomiting Stop: 02/06/24 16:29 Pantoprazole Sodium (Pantoprazole 40 Mg Tablet.Dr) 40 mg PO BID [facility] Stop: 02/06/24 20:59 Last Admin: 02/10/23 08:49 Dose: 40 mg Potassium Chloride (Potassium Chloride Er 20 Meq Tab.Er.Prt) 40 meq PO DAILY PRN PRN Reason: Hypokalemia Stop: 02/08/24 08:42 Last Admin: 02/10/23 08:50 Dose: 40 meq Potassium Chloride (Potassium Chloride Er 20 Meq Tab.Er.Prt) 40 meq PO TID PAT Stop: 02/09/24 21:59 Last Admin: 02/10/23 08:49 Dose: 40 meq Senna/Docusate Sodium (Sennosides/Docusate 8.6-50mg 1 Tab Tablet) 2 tab PO QHS PAT Stop: 02/06/24 21:59 Last Admin: 02/09/23 23:25 Dose: Not Given Sodium Chloride (Sodium Chloride 0.9 % 10 Ml Syringe) 0 ml IV-PUSH PRN PRN PRN Reason: Flush Stop: 02/06/24 12:17 Last Admin: 02/06/23 15:55 Dose: 10 ml Sodium Chloride (Sodium Chloride 0.9 % 10 Ml Syringe) 0 ml IV-PUSH PRN PRN PRN Reason: Flush Stop: 02/08/24 12:35 Spironolactone (Spironolactone 25 Mg Tablet) 25 mg PO BID [facility] Stop: 02/08/24 08:59 Last Admin: 02/10/23 08:50 Dose: 25 mg Thiamine HCl (Thiamine 100 Mg Tablet) 100 mg PO DAILY [facility] Stop: 02/07/24 08:59 Last Admin: 02/10/23 08:49 Dose: 100 mg Tizanidine HCl (Tizanidine 4 Mg Tablet) 4 mg PO Q8H PRN PRN Reason: Pain Stop: 02/06/24 16:28 Last Admin: 02/10/23 08:58 Dose: 4 mg Tramadol HCl (Tramadol 50 Mg Tablet) 100 mg PO QID PRN PRN Reason: Pain Stop: 08/05/23 16:28 Last Admin: 02/10/23 08:58 Dose: 100 mg Vitamin D (Cholecalciferol 25 Mcg (1,000 Units) Tablet) 100 mcg PO DAILY [facility] Stop: 02/07/24 08:59 Last Admin: 02/10/23 08:50 Dose: 100 mcg Allergies diltiazem Adverse Reaction (Verified 02/06/23 12:18) Palpitations lisinopril Adverse Reaction (Verified 02/06/23 12:18) Swelling of Lip/Tongue/Throat morphine Adverse Reaction (Verified 02/06/23 12:18) Palpitations Results Labs 02/06/23 13:05 02/10/23 06:50 Labs: 02/09/23 02/10/23 14:09 06:50 BUN 35 H 37 H Creatinine 1.70 H 1.58 H Phosphorus 2.5 Albumin 3.8 Radiology Impressions Impressions - last 24 hours: Any impression(s) listed above is documentation that was entered by the reading physician into a diagnostic report(s) for Sandra Potter. I have reviewed the report(s) and am incorporating any findings in the treatment plan of this patient where applicable. A&P - Nephrology Assessment/Plan (1) Hypokalemia: Assessment/Problem Details: Patient has persistent hypokalemia requiring high-dose potassium supplements after resolution of initial hyperkalemia. Used to be on low-dose potassium supplements at home up to 200 MEQ daily. Patient's continue to have urine output more than 3 L daily despite discontinuation of metolazone and decrease the dose of bumetanide. Will rule out primary hyperaldosteronism since blood pressure still elevated with hypokalemia and mild metabolic alkalosis. (2) Hyperkalemia: Assessment/Problem Details: Patient presented with hyperkalemia 6.5 mmol/L seems to be related to excessive potassium replacement that improved after holding potassium supplements and 1 dose of Lokelma. Spot urine sodium, potassium and creatinine showed adequate or even excessive potassium excretion by the kidney with potassium/creatinine more than 20 meq/ gram of creatinine (3) CKD (chronic kidney disease) stage 3, GFR 30-59 ml/min: Assessment/Problem Details: Patient has variable serum creatinine between 1.3 to 1.8 mg/dL since 2011 seems to be related to mild diabetic nephropathy and intermittent KVNG on diuretics. Urine analysis on admission showed no proteinuria. (4) Hypercalcemia: Assessment/Problem Details: Patient has longstanding mild hypercalcemia currently with elevated intact PTH. Phosphorus is normal. Patient could have secondary hyperparathyroidism related to mild CKD stage III however he stated that he had a parathyroid scan and he was diagnosed with primary hyperparathyroidism and he supposed to have parathyroidectomy that was canceled because of his cardiac status. Calcium has been always below 11 g/dL. No history of kidney stones. (5) Type 2 diabetes mellitus with peripheral neuropathy: Assessment/Problem Details: Patient has DM2 with peripheral neuropathy and feet wound. He follow-up with Dr. Teri Aragon DO. He stated that A1c is below 7% (6) Bradycardia: Assessment/Problem Details: Patient presents with bradycardia in the setting of no beta-blockers. He has A- fib s/p Watchman device as he cannot tolerate blood thinners. Patient is being evaluated for pacemaker placement. Plan * Patient still has evidence of borderline hypomagnesemia that may be contributing to hypokalemia. Will supplement with additional 2 g of IV magnesium sulfate. He will continue magnesium oxide 400 mg twice a day. * Patient has significant diuresis more than 3 L/day this may contribute to hypokalemia especially with large urinary potassium. Will decrease Bumex to 0.5 mg daily mainly for hypercalcemia. Continue spironolactone 25 mg twice a day. * Continue potassium supplement 40 M EQ p.o. 3 times daily as outpatient * Will check renal and aldosterone ratio to rule out possibility of hyperparathyroidism considering the severity of hypokalemia and metabolic alkalosis. * Patient has mild hypercalcemia in the setting of primary hyperparathyroidism with elevated intact PTH and low phosphorus. Patient has no kidney stones on renal ultrasound. He will continue conservative treatment. Persistent hypercalciuria may be associated with hypokalemia Otherwise, patient feels comfortable with no shortness of breath. After discussion with Dr. Gaxiola and Dr. Duckworth, patient is not a candidate for pacemaker at this point since pulse up to 75/min after correction of hyperkalemia. Patient is can be discharged home on current medications including potassium chloride 40 mEq 3 times daily, spironolactone and bumetanide. He need follow-up lab in 5 to 7 days to check renal panel and potassium. He may follow-up with renal clinic to adjust diuretics and follow-upon renin and aldosterone labs. Documented By: Mina Reilly MD 02/10/23 8621 Signed By: <Electronically signed by MD Mina Reilly> 02/10/23 2591 [facility] Work Phone: [phone]) 178-671611-26-2023 Progress note Author Deanne Gaxiola [facility] February 10, 2023 11:24am Note Date/Time February 10, 2023 11:24am [facility] [address] [place] [address] Cardiology Progress Note Signed Patient: Sandra Potter MR#: [id number] : 1955 Acct:[id number] Age/Sex: 67 / M Adm Date: 3 Loc: Room: [address] [place] [address] Type: ADM IN Attending Dr: Subhash Duckworth MD Copies to: ~ Date of Service: 02/10/2023 Subjective Interval history: Patient without new complaint. Heart rate seem to have recovered spontaneously. His potassium down to 2.5. Exam Physical Exam Vital Signs: Temp Pulse Resp BP Pulse Ox O2 Del Method 98.0 F 64 18 162/85 H 98 Room Air 02/10/23 08:00 02/10/23 08:00 02/10/23 08:00 02/10/23 08:00 02/10/23 08:00 02/10/23 08:00 Const General: cooperative Neck Neck: supple Lymphatic: no lymphadenopathy noted Resp Effort & Inspection: normal respiratory effort Auscultation: clear to auscultation bilaterally Cardio Rhythm: abnormal rhythm irregularly irregular Heart Sounds: S1 normal and S2 normal Skin General: dry skin Extrem General: full ROM and no clubbing, cyanosis or edema Objective Labs 02/06/23 13:05 02/10/23 06:50 Labs: Laboratory Results - last 24 hr 02/09/23 02/09/23 02/10/23 14:09 21:48 06:50 PHA Creatinine Clear 55.13 58.79 Sodium 137 138 Potassium 2.8 L* 3.3 L 3.1 L Chloride 96 L 99 Carbon Dioxide 30.3 29.9 Anion Gap 13.5 12.2 BUN 35 H 37 H Creatinine 1.70 H 1.58 H Est GFR (CKD-EPI) 44.185 48.242 Glucose 198 H 114 H Calcium 10.8 H 10.8 H Phosphorus 2.5 Magnesium 2.0 Albumin 3.8 A&P - Cardiology (1) A-fib: Qualifiers: Atrial fibrillation type: chronic Qualified Code(s): I48.2 - Chronic atrial fibrillation Code(s): I48.91 - Unspecified atrial fibrillation Status: Chronic Plan Assessment 1. Symptomatic bradycardia with atrial fibrillation with very slow ventricular rate consistent with AV deon disease but appears to be well-tolerated at the moment. Heart rate seem to have recovered over the last 48 hours has not had significant bradycardia he does have an element of AV deon disease based on hisheart rate is controlled without any AV blocking agent 2. Coronary artery disease with remote PCI to the LAD 3. Patient suspected to have apical hypertrophic cardiomyopathy. Echocardiogram pending 4. Chronic diastolic heart failure requiring large doses of diuretics and potassium replacement 5. Morbid obesity 6. History of B-cell lymphoma 7. Intolerance to anticoagulation 8. Status post Watchman device 9. Sleep apnea 10. Peripheral vascular disease with multiple toe amputation and currently unhealed ulcer of the fourth 11. Initial presentation with mild hyperkalemia now hypokalemic 12. History of lower extremity edema and diastolic heart failure has been on high-dose diuretics Plan 1. Again I had lengthy discussion with the patient and his in regard to treatment option. The patient heart recovery is rather surprising concerning his hyperkalemia was relatively mild. Regardless the patient heart rate seem tohave recovered. We discussed the option of either proceeding with pacemaker versus continued with observant approach and doing a an outpatient event monitorfollowing lengthy discussion regarding the pros, cons and alternative and considering improvement of his heart rate with lowering his potassium the patient elected to continue with observant approach for now with plan to do an outpatient event monitor to reassess the need for pacemaker 2. Potassium and diuretics are being managed by the nephrology service. I agree with recommendation to reduce the dose of his diuretics and optimize Aldactone to minimize the potassium replacement 3. The patient can be discharged home Documented By: Deanne Gaxiola MD 02/10/23 112 Signed By: <Electronically signed by MD Deanne Gaxiola> 02/10/23 1124 [facility] Work Phone: 1(220) 358-431711-25-2023 Progress note Author Mina Reilly [facility] February 09, 2023 3:30pm Note Date/Time February 09, 2023 3:30pm [facility] [address] [place] [address] Nephrology Progress Note Signed Patient: Sandra Potter MR#: [id number] : 1955 Acct:[id number] Age/Sex: 67 / M Adm Date: 3 Loc: 4P Room: 1J1452-6 Type: ADM IN Attending Dr: Subhash Duckworth MD Copies to: ~ Date of Service: 02/09/2023 Subjective Subjective Narrative: Mr. Potter is a 67-year-old white gentleman with multiple comorbidities includinglarge B-cell lymphoma that is currently in remission after chemotherapy, DM2, s/p gastric bypass surgery , ischemic cardiomyopathy s/p PCI to the LAD, A-fib s/p Watchman device due to intolerance to anticoagulation with recurrent CHF requiring large doses of diuretics including bumetanide and metolazone. Patienthad history of hyperkalemia on large dose of potassium supplement at home 200 mEq daily. Patient has mild CKD stage III with variable serum creatinine between 1.5 to 1.7 mg/dL over the last 10 years. Indeed, he was seen by my partner Dr. Rain in 2011 and his creatinine at that time was 1.7 mg/dL however he is currently follow-up with his PCP only. Patient came to the ER because of weakness for the last couple of weeks associated with dizziness and intermittent lightheadedness. He has been having worsening lower extremity edema and spironolactone was recently added by Dr. Burgess. In the ER, patient was found to have A-fib with bradycardia with heartrate 30s. He was found also to have hyperkalemia with potassium 6.5 mEq/L. Creatinine was up to 1.8 mg/dL as well. BNP was only 151. TSH 4.68. COVID 19 PCR was negative. Patient was not on any beta-blockers. She was treated with Lokelma for hyperkalemia and nephrology was consulted. I did review the chart overnight and since the patient has been on high-dose potassium chloride 2 mEq daily in addition to spironolactone, I just increased the dose of bumetanide to 2 mg twice a day and repeat potassium was down to 3.7 mg/L so I did stop Lokelmaand bumetanide was decreased To 1 mg twice a day. Today potassium is further down to 2.7 mEq/L so 40 MEQ potassium chloride was given. Magnesium is 1.6 mg/dL on admission Interval history: Patient continues to have significant hypokalemia despite discontinuation of sodium zirconium cyclosilicate and potassium supplement yesterday. Spironolactone was increased as well to 25 mg twice a day. Patient has no symptoms. Creatinine did improve down to 1.53 mg/dL. He still on bumetanide 1 mg twice a day. Patient has low urine output 4.7 L yesterday with additional 1900 today that contribute to hypokalemia. Patient denies any shortness of breath. He has minimal edema Exam Physical Exam Vital Signs: Temp Pulse Resp BP Pulse Ox O2 Del Method 36.8 C 65 16 149/75 H 97 Room Air 02/09/23 12:00 02/09/23 12:00 02/09/23 12:00 02/09/23 12:00 02/09/23 12:00 02/09/23 08:00 Narrative: Constitutional: Moderately obese, appears comfortable and not in distress HEENT: Atraumatic, normocephalic. No pallor or jaundice. Cardiovascular: Irregular, normal S1-S2, no gallop or rub, No JVD Respiratory: Good bilateral air entry no wheezing or crackles Gastrointestinal: Soft, non tender, positive bowel sounds. No palpable organs or masses per Extremities: 1+ edema bilateral and symmetrically. He has wounds on the plantarsurface of right great toe. He has multiple toes amputation. He follow-up withDr. Bolden podiatry. Skin: No rashes or bruises Musculoskeletal: No joints swellings or inflammation Neurology: Awake, alert, oriented ?3, No focal motor or sensory deficits Psych: Normal mood and affect Objective Intake and Output I&O: Intake & Output 02/06/23 02/07/23 02/08/23 02/09/23 23:59 23:59 23:59 23:59 Intake Total 1390 / 1390 1500 / 1500 1750 / 1750 800 / 800 Output Total 2100 / 2100 4725 / 4725 1900 / 1900 Balance 1390 / 1390 -600 / -600 -2975 / -2975 -1100 / -1100 Weight 117.2 kg 117.2 kg 111.7 kg 112 kg Meds and Allergies Meds: Active Medications Acetaminophen (Acetaminophen 325 Mg Tablet) 650 mg PO Q6HR PRN PRN Reason: Pain Scale 1 - 3 or fever Stop: 02/06/24 16:29 Last Admin: 11/25/23 13:15 Dose: 650 mg Albuterol (Albuterol Hfa 60 Puff/8 Gram Inhaler) 1 puff INHALATION Q4H PRN PRN Reason: Shortness Of Breath Or Wheezing Stop: 02/06/24 16:28 Allopurinol (Allopurinol 300 Mg Tablet) 300 mg PO DAILY PAT Stop: 02/07/24 08:59 Last Admin: 02/09/23 08:20 Dose: 300 mg Aspirin (Aspirin 81 Mg Tablet.) 81 mg PO HS PAT Stop: 02/06/24 21:59 Last Admin: 02/08/23 21:50 Dose: 81 mg Atorvastatin Calcium (Atorvastatin 20 Mg Tablet) 20 mg PO HS PAT Stop: 02/06/24 21:59 Last Admin: 02/08/23 21:51 Dose: 20 mg Atropine Sulfate (Atropine Sulfate 1 Mg/10 Ml Syringe) 1 mg IV-PUSH ONCE PRN PRN Reason: Bradycardia Bisacodyl (Bisacodyl 5 Mg Tablet.Dr) 10 mg PO DAILY PRN PRN Reason: Constipation Stop: 02/06/24 16:29 Bumetanide (Bumetanide 0.5 Mg Tablet) 0.5 mg PO BID.WITH.MEALS [facility] Stop: 02/09/24 16:59 Enoxaparin Sodium (Enoxaparin 40 Mg/0.4 Ml Syringe) 40 mg SUBCUT DAILY@10 PAT Stop: 02/07/24 09:59 Last Admin: 02/09/23 09:41 Dose: 40 mg Gabapentin (Gabapentin 600 Mg Tablet) 1,200 mg PO BID PAT Stop: 02/06/24 20:59 Last Admin: 02/09/23 08:21 Dose: 1,200 mg Glipizide (Glipizide 2.5 Mg Tab.Er.24) 2.5 mg PO BID.WITH.MEALS PAT Stop: 02/07/24 07:59 Last Admin: 02/09/23 08:21 Dose: 2.5 mg Sodium Chloride (0.9% Sodium Chloride 1,000 Ml) 1,000 mls @ 20 mls/hr IV .Q24H PAT Stop: 02/11/24 15:59 Gentamicin Sulfate 220 mg/ (Sodium Chloride) 105.5 mls @ 211 mls/hr IV PREOP ONE Stop: 02/11/23 14:31 Vancomycin HCl 1.5 gm/ (Dextrose) 530 mls @ 353.333 mls/hr IV PREOP ONE; Protocol Stop: 02/11/23 15:29 Levothyroxine Sodium (Levothyroxine 25 Mcg Tablet) 25 mcg PO DAILY@0630 PAT Stop: 02/07/24 06:29 Last Admin: 02/09/23 06:39 Dose: 25 mcg Magnesium Oxide (Magnesium Oxide 400 Mg Tablet) 400 mg PO BID PAT Stop: 02/06/24 20:59 Last Admin: 02/09/23 08:21 Dose: 400 mg Melatonin (Melatonin 5 Mg Tablet) 5 mg PO QHS PRN PRN Reason: Insomnia Stop: 02/06/24 16:29 Last Admin: 02/08/23 21:51 Dose: 5 mg Ondansetron HCl (Ondansetron 4 Mg/2 Ml Vial) 4 mg IV-PUSH Q8H PRN PRN Reason: Nausea And Vomiting Stop: 02/06/24 16:29 Pantoprazole Sodium (Pantoprazole 40 Mg Tablet.Dr) 40 mg PO BID PAT Stop: 02/06/24 20:59 Last Admin: 02/09/23 08:20 Dose: 40 mg Potassium Chloride (Potassium Chloride Er 20 Meq Tab.Er.Prt) 40 meq PO DAILY PRN PRN Reason: Hypokalemia Stop: 02/08/24 08:42 Last Admin: 02/09/23 08:22 Dose: 40 meq Potassium Chloride (Potassium Chloride Er 20 Meq Tab.Er.Prt) 40 meq PO BID PAT Stop: 02/09/24 08:59 Last Admin: 02/09/23 09:41 Dose: 40 meq Senna/Docusate Sodium (Sennosides/Docusate 8.6-50mg 1 Tab Tablet) 2 tab PO QHS PAT Stop: 02/06/24 21:59 Last Admin: 02/08/23 21:51 Dose: 2 tab Sodium Chloride (Sodium Chloride 0.9 % 10 Ml Syringe) 0 ml IV-PUSH PRN PRN PRN Reason: Flush Stop: 02/06/24 12:17 Last Admin: 02/06/23 15:55 Dose: 10 ml Sodium Chloride (Sodium Chloride 0.9 % 10 Ml Syringe) 0 ml IV-PUSH PRN PRN PRN Reason: Flush Stop: 02/08/24 12:35 Spironolactone (Spironolactone 25 Mg Tablet) 25 mg PO BID PAT Stop: 02/08/24 08:59 Last Admin: 02/09/23 08:21 Dose: 25 mg Thiamine HCl (Thiamine 100 Mg Tablet) 100 mg PO DAILY PAT Stop: 02/07/24 08:59 Last Admin: 02/09/23 08:20 Dose: 100 mg Tizanidine HCl (Tizanidine 4 Mg Tablet) 4 mg PO Q8H PRN PRN Reason: Pain Stop: 02/06/24 16:28 Last Admin: 02/09/23 13:14 Dose: 4 mg Tramadol HCl (Tramadol 50 Mg Tablet) 100 mg PO QID PRN PRN Reason: Pain Stop: 08/05/23 16:28 Last Admin: 02/09/23 13:14 Dose: 100 mg Vitamin D (Cholecalciferol 25 Mcg (1,000 Units) Tablet) 100 mcg PO DAILY PAT Stop: 02/07/24 08:59 Last Admin: 02/09/23 08:20 Dose: 100 mcg Allergies diltiazem Adverse Reaction (Verified 02/06/23 12:18) Palpitations lisinopril Adverse Reaction (Verified 02/06/23 12:18) Swelling of Lip/Tongue/Throat morphine Adverse Reaction (Verified 02/06/23 12:18) Palpitations Results Labs 02/06/23 13:05 02/09/23 04:50 Labs: 02/09/23 04:50 BUN 36 H Creatinine 1.53 H Radiology Impressions Impressions - last 24 hours: Impressions Renal Ultrasound 02/08/23 05:00 IMPRESSION: No hydronephrosis or mass. Impression dictated by: Juliano Conteh M.D.02/08/2023 8:21 PM Dictation Location: [place] [address] Any impression(s) listed above is documentation that was entered by the reading physician into a diagnostic report(s) for Sandra Potter. I have reviewed the report(s) and am incorporating any findings in the treatment plan of this patient where applicable. A&P - Nephrology Assessment/Plan (1) Hyperkalemia: Assessment/Problem Details: Patient presented with hyperkalemia 6.5 mmol/L seems to be related to excessive potassium replacement. Patient had episodes of hypokalemia before on aggressivediuresis for lymphedema and recurrent CHF. He has hypomagnesemia 1.6 mEq/L. Potassium is currently down to 2.7 mEq/L after holding potassium supplements and1 dose of Lokelma. Spot urine sodium, potassium and creatinine showed adequate potassium excretion by the kidney with potassium/creatinine more than 20 meq/ gram of creatinine (2) CKD (chronic kidney disease) stage 3, GFR 30-59 ml/min: Assessment/Problem Details: Patient has variable serum creatinine between 1.3 to 1.8 mg/dL since 2011 seems to be related to mild diabetic nephropathy and intermittent KVNG on diuretics. Urine analysis on admission showed no proteinuria. (3) Hypercalcemia: Assessment/Problem Details: Patient has longstanding mild hypercalcemia currently with elevated intact PTH. Phosphorus is normal. Patient could have secondary hyperparathyroidism related to mild CKD stage III however he stated that he had a parathyroid scan and he was diagnosed with primary hyperparathyroidism and he supposed to have parathyroidectomy that was canceled because of his cardiac status. Calcium has been always below 11 g/dL. No history of kidney stones. (4) Type 2 diabetes mellitus with peripheral neuropathy: Assessment/Problem Details: Patient has DM2 with peripheral neuropathy and feet wound. He follow-up with Dr. Teri Aragon DO. He stated that A1c is below 7% (5) Bradycardia: Assessment/Problem Details: Patient presents with bradycardia in the setting of no beta-blockers. He has A- fib s/p Watchman device as he cannot tolerate blood thinners. Patient is being evaluated for pacemaker placement. Plan * He still has hypokalemia after holding potassium supplements. He has biliuria more than 4 L yesterday with addition at 1900 mL of urine today despite discontinuation of metolazone. He is on spironolactone 25 mg twice a day. Patient does not like IV iron because of burning. Will decrease bumetanide further to 0.5 mg twice a day and continue spironolactone. We may need to stop bumetanide completely if he continues to have urine output more than 2.5 L/day. * Most likely he will need oral potassium supplement, will add 40 M EQ twice a day and repeat basic metabolic panel today. No difference in bioavailability between IV or oral potassium. * Considering the low magnesium, we are going to supplement with 2 g magnesium sulfate IV today. * Continue magnesium oxide 400 mg twice a day, patient has hypomagnesemia * Monitor hypercalcemia, patient has no kidney stones. He has primary hyperparathyroidism and he supposed to have parathyroidectomy however it was held because of cardiac status. * Monitor daily intake, output and renal panel to adjust medications as indicated during hospital stay Appreciate consultation we will be happy to follow the patient with you during hospital stay This document was dictated utilizing computerized voice recognition technology. Errors in grammar, spelling, and or syntax may be noted. The creator of this document does not proofread for this. Documented By: Mina Reilly MD 02/09/231522 Signed By: <Electronically signed by MD Mina Reilly> 02/09/23 1530 [facility] Work Phone: [phone]) 716-542411-25-2023 Progress note Author Subhash Duckworth [facility] February 09, 2023 2:33pm Note Date/Time February 09, 2023 2:33pm [facility] [address] [place] [address] Hospitalist Progress Note Signed Patient: Sandra Potter MR#: [id number] : 1955 Acct:[id number] Age/Sex: 67 / M Adm Date: 3 Loc: Room: [address] [place] [address] Type: ADM IN Attending Dr: Subhash Duckworth MD Copies to: ~ Date of Service: 02/09/2023 Subjective Subjective Narrative: Patient was seen and evaluated at bedside. Remained afebrile, hemodynamically stable, overnight had bradycardia events but appeared asymptomatic. Heart rate seems to have recovered. Asymptomatic this morning, ambulating in the room as tolerated. Denies any active complaints at this time. Plan for pacemaker insertion on Saturday. Exam Physical Exam Vital Signs: Temp Pulse Resp BP Pulse Ox O2 Del Method 98.2 F 65 16 149/75 H 97 Room Air 02/09/23 12:00 02/09/23 12:00 02/09/23 12:00 02/09/23 12:00 02/09/23 12:00 02/09/23 08:00 Narrative: Const General: cooperative, obese HEENT Normal oropharyngeal mucosa without any ulcers or exudates Eyes: Conjunctiva normal Pulmonary Auscultation: clear to auscultation , no crackles, no wheezes Cardiovascular Rate: normal rate Rhythm: regular rhythm Heart Sounds: S1 normal, S2 normal and no murmurs GI Inspection: obese Palpation: soft, not firm and nontender. No rigidity or rebound. Deferred Neuro General: alert, awake and oriented x3. No obvious new focal deficit Musculoskeletal: normal range of motion Extrem General: no cyanosis, no pedal edema Psych Appearance: appropriate affect. Grossly normal Objective Lab Results 02/06/23 13:05 02/09/23 04:50 Meds Allergies and Active Meds Allergies diltiazem Adverse Reaction (Verified 02/06/23 12:18) Palpitations lisinopril Adverse Reaction (Verified 02/06/23 12:18) Swelling of Lip/Tongue/Throat morphine Adverse Reaction (Verified 02/06/23 12:18) Palpitations Active Meds: Active Medications Generic Name Dose Route Start Last Admin Trade Name Freq PRN Reason Stop Dose Admin Acetaminophen 650 mg 02/06/23 16:30 02/09/23 13:15 Acetaminophen 325 Mg Tablet PO 02/06/24 16:29 650 mg Q6HR PRN Administration Pain Scale 1 - 3 or fever Albuterol 1 puff 02/06/23 16:29 Albuterol Hfa 60 Puff/8 Gram Inhaler INHALATION 02/06/24 16:28 Q4H PRN Shortness Of Breath Or Wheezing Allopurinol 300 mg 02/07/23 09:00 02/09/23 08:20 Allopurinol 300 Mg Tablet PO 02/07/24 08:59 300 mg DAILY PAT Administration Aspirin 81 mg 02/06/23 22:00 02/08/23 21:50 Aspirin 81 Mg Tablet. PO 02/06/24 21:59 81 mg HS PAT Administration Atorvastatin Calcium 20 mg 02/06/23 22:00 02/08/23 21:51 Atorvastatin 20 Mg Tablet PO 02/06/24 21:59 20 mg HS PAT Administration Atropine Sulfate 1 mg 02/07/23 03:28 Atropine Sulfate 1 Mg/10 Ml Syringe IV-PUSH ONCE PRN Bradycardia Bisacodyl 10 mg 02/06/23 16:30 Bisacodyl 5 Mg Tablet. PO 02/06/24 16:29 DAILY PRN Constipation Bumetanide 0.5 mg 02/09/23 17:00 Bumetanide 0.5 Mg Tablet PO 02/09/24 16:59 BID.WITH.MEALS PAT Enoxaparin Sodium 40 mg 02/07/23 10:00 02/09/23 09:41 Enoxaparin 40 Mg/0.4 Ml Syringe SUBCUT 02/07/24 09:59 40 mg DAILY@10 PAT Administration Gabapentin 1,200 mg 02/06/23 21:00 02/09/23 08:21 Gabapentin 600 Mg Tablet PO 02/06/24 20:59 1,200 mg BID PAT Administration Glipizide 2.5 mg 02/07/23 08:00 02/09/23 08:21 Glipizide 2.5 Mg Tab.Er.24 PO 02/07/24 07:59 2.5 mg BID.WITH.MEALS PAT Administration Sodium Chloride 1,000 mls @ 20 mls/hr 02/11/23 16:00 0.9% Sodium Chloride 1,000 Ml IV 02/11/24 15:59 .Q24H PAT Gentamicin Sulfate 220 mg/ 105.5 mls @ 211 mls/hr 02/11/23 14:30 Sodium Chloride IV 02/11/23 14:31 PREOP ONE Vancomycin HCl 1.5 gm/ 530 mls @ 353.333 mls/hr 02/11/23 14:00 Dextrose IV 02/11/23 15:29 PREOP ONE Protocol Levothyroxine Sodium 25 mcg 02/07/23 06:30 02/09/23 06:39 Levothyroxine 25 Mcg Tablet PO 02/07/24 06:29 25 mcg DAILY@0630 PAT Administration Magnesium Oxide 400 mg 02/06/23 21:00 02/09/23 08:21 Magnesium Oxide 400 Mg Tablet PO 02/06/24 20:59 400 mg BID PAT Administration Melatonin 5 mg 02/06/23 16:30 02/08/23 21:51 Melatonin 5 Mg Tablet PO 02/06/24 16:29 5 mg QHS PRN Administration Insomnia Ondansetron HCl 4 mg 02/06/23 16:30 Ondansetron 4 Mg/2 Ml Vial IV-PUSH 02/06/24 16:29 Q8H PRN Nausea And Vomiting Pantoprazole Sodium 40 mg 02/06/23 21:00 02/09/23 08:20 Pantoprazole 40 Mg Tablet.Dr PO 11/21/24 20:59 40 mg BID PAT Administration Potassium Chloride 40 meq 02/08/23 08:43 02/09/23 08:22 Potassium Chloride Er 20 Meq Tab.Er.Prt PO 02/08/24 08:42 40 meq DAILY PRN Administration Hypokalemia Potassium Chloride 40 meq 02/09/23 09:00 02/09/23 09:41 Potassium Chloride Er 20 Meq Tab.Er.Prt PO 02/09/24 08:59 40 meq BID PAT Administration Senna/Docusate Sodium 2 tab 02/06/23 22:00 02/08/23 21:51 Sennosides/Docusate 8.6-50mg 1 Tab Tablet PO 02/06/24 21:59 2 tab QHS PAT Administration Sodium Chloride 0 ml 02/06/23 12:18 02/06/23 15:55 Sodium Chloride 0.9 % 10 Ml Syringe IV-PUSH 02/06/24 12:17 10 ml PRN PRN Administration Flush Sodium Chloride 0 ml 02/08/23 12:36 Sodium Chloride 0.9 % 10 Ml Syringe IV-PUSH 02/08/24 12:35 PRN PRN Flush Spironolactone 25 mg 02/08/23 09:00 02/09/23 08:21 Spironolactone 25 Mg Tablet PO 02/08/24 08:59 25 mg BID PAT Administration Thiamine HCl 100 mg 02/07/23 09:00 02/09/23 08:20 Thiamine 100 Mg Tablet PO 02/07/24 08:59 100 mg DAILY PAT Administration Tizanidine HCl 4 mg 02/06/23 16:29 02/09/23 13:14 Tizanidine 4 Mg Tablet PO 02/06/24 16:28 4 mg Q8H PRN Administration Pain Tramadol HCl 100 mg 02/06/23 16:29 02/09/23 13:14 Tramadol 50 Mg Tablet PO 08/05/23 16:28 100 mg QID PRN Administration Pain Vitamin D 100 mcg 02/07/23 09:00 02/09/23 08:20 Cholecalciferol 25 Mcg (1,000 Units) Tablet PO 02/07/24 08:59 100 mcg DAILY PAT Administration A&P - Hospitalist Assessment/Plan (1) Generalized weakness: (2) Bradycardia: (3) HTN (hypertension): (4) CKD (chronic kidney disease) stage 3, GFR 30-59 ml/min: (5) Obesity (BMI 35.0-39.9 without comorbidity): (6) Diabetes 1.5, managed as type 2: (7) CHF (congestive heart failure), NYHA class I: (8) A-fib: Plan 67-year-old white male with past medical history of obesity, hypertension, hyperlipidemia, diabetes type 2, coronary artery disease status post angioplasties, history of ischemic cardiomyopathy, hypothyroidism, history of large B-cell lymphoma, obstructive sleep apnea presented emergency room with generalized weakness. He has been feeling well for the last couple weeks. Associated with dizziness. He describes as lightheadedness. Associated with right-sided chest pain which lasted for 1 minute today in the morning. Which resolved body aches gas. He denies having shortness of breath. No palpitation. Denies orthopnea and PND. He has been having worsening leg edema. He denies having any nausea or vomiting. No abdominal pain. Denies any dysuria, hematuria, frequency. No hematemesis, melena, or hematochezia. [facility] was bradycardic with heart rate went to the 30s. Assessment and plan Symptomatic bradycardia with atrial fibrillation with very slow ventricular rateconsistent with AV deon disease Seen and examined Clinically better, HR recovered spontaneously HR is better now in 60s kidney function is improving Potassium level now low at 2.5 Diuretics management and electrolytes as per nephro recs Nephrology is following Cardiology is following. Plan for pacemaker insertion on Saturday. Pt in agreement Hypertension: Controlled Diabetes type 2: Accu-Chek ACHS/insulin sliding scale/resume glipizide Obesity: Lifestyle modification Hyperlipidemia: Resume Lipitor Hypothyroidism: Resume Synthroid/TSH level in the morning Coronary disease status post angioplasties: Aspirin daily and Lipitor/not on anybeta-dunia due to bradycardia Obstructive sleep apnea DVT prophylaxis: Lovenox daily Discussed with patient at bedside, all question answered, patient in agreement with plan Documented By: Subhash Duckworth MD 02/09/23 14 29 Signed By: <Electronically signed by Subhash Duckworth MD> 02/09/23 6109 [facility] Work Phone: [phone]) 489-460411-25-2023 Progress note Author Deanne Gaxiola [facility] February 09, 2023 10:43am Note Date/Time February 09, 2023 10:35am [facility] [address] [place] [address] Cardiology Progress Note Signed Patient: Sandra Potter MR#: [id number] : 1955 Acct:[id number] Age/Sex: 67 / M Adm Date: 3 Loc: Room: [address] [place] [address] Type: ADM IN Attending Dr: Subhash Duckworth MD Copies to: ~ Date of Service: 02/09/2023 Subjective Interval history: Patient without new complaint. Heart rate seem to have recovered spontaneously. His potassium down to 2.5. Exam Physical Exam Vital Signs: Temp Pulse Resp BP Pulse Ox O2 Del Method 98.2 F 72 20 169/90 H 97 Room Air 02/09/23 08:00 02/09/23 08:00 02/09/23 08:00 02/09/23 08:00 02/09/23 08:00 02/09/23 08:00 Const General: cooperative Neck Neck: supple Lymphatic: no lymphadenopathy noted Resp Effort & Inspection: normal respiratory effort Auscultation: clear to auscultation bilaterally Cardio Rhythm: abnormal rhythm irregularly irregular Heart Sounds: S1 normal and S2 normal Skin General: dry skin Extrem General: full ROM and no clubbing, cyanosis or edema Objective Labs 02/06/23 13:05 02/09/23 04:50 Labs: Laboratory Results - last 24 hr 02/09/23 04:50 PHA Creatinine Clear 61.18 Sodium 137 Potassium 2.5 L* Chloride 95 L Carbon Dioxide 33.0 H Anion Gap 11.5 BUN 36 H Creatinine 1.53 H Est GFR (CKD-EPI) 50.140 Glucose 112 H Calcium 10.6 H A&P - Cardiology (1) A-fib: Qualifiers: Atrial fibrillation type: chronic Qualified Code(s): I48.2 - Chronic atrial fibrillation Code(s): I48.91 - Unspecified atrial fibrillation Status: Chronic Plan Assessment 1. Symptomatic bradycardia with atrial fibrillation with very slow ventricular rate consistent with AV deon disease but appears to be well-tolerated at the moment. Heart rate seem to have recovered but the patient continued to have episodes of bradycardia and had the previous documentation of A-fib with slow ventricular rate without AV blocking agent 2. Coronary artery disease with remote PCI to the LAD 3. Patient suspected to have apical hypertrophic cardiomyopathy. Echocardiogram pending 4. Chronic diastolic heart failure requiring large doses of diuretics and potassium replacement 5. Morbid obesity 6. History of B-cell lymphoma 7. Intolerance to anticoagulation 8. Status post Watchman device 9. Sleep apnea 10. Peripheral vascular disease with multiple toe amputation and currently unhealed ulcer of the fourth 11. Initial presentation with mild hyperkalemia now hypokalemic 12. History of lower extremity edema and diastolic heart failure has been on high-dose diuretics Plan 1. I discussed with patient treatment option. I believe the patient will need pacemaker. Will arrange for that Saturday 2. Potassium and diuretics are being managed by the nephrology service 3. Echo with Definity reviewed. This study is suspicious but not confirmatory of apical hypertrophic cardiomyopathy. Consider cardiac MRI down the road Documented By: Deanne Gaxiola MD 02/09/23 1033 Signed By: <Electronically signed by MD Deanne Gaxiola> 02/09/23 1043 [facility] Work Phone: [phone] Consult note Author Mina Reilly [facility] February 08, 2023 1:01pm Note Date/Time February 08, 2023 1:02pm [facility] [address] [place] [address] Nephrology Consult Note Signed Patient: Sandra Potter MR#: [id number] : 1955 Acct:[id number] Age/Sex: 67 / M Adm Date: 3 Loc: Room: 1H1851-1 Type: ADM IN Attending Dr: Barry Cisneros MD Copies to: MD Mina Patel MD Matthew A Braniecki, DO~ Providers Consult Date: 02/08/23 Requesting Provider: Barry Cisneros MD Primary Care Provider: Teri Aragon DO HPI Reason for Consult: KVNG and hyperkalemia History of Present Illness: Mr. Potter is a 67-year-old white gentleman with multiple comorbidities includinglarge B-cell lymphoma that is currently in remission after chemotherapy, DM2, s/p gastric bypass surgery , ischemic cardiomyopathy s/p PCI to the LAD, A-fib s/p Watchman device due to intolerance to anticoagulation with recurrent CHF requiring large doses of diuretics including bumetanide and metolazone. Patienthad history of hyperkalemia on large dose of potassium supplement at home 200 mEq daily. Patient has mild CKD stage III with variable serum creatinine between 1.5 to 1.7 mg/dL over the last 10 years. Indeed, he was seen by my partner Dr. Rain in 2011 and his creatinine at that time was 1.7 mg/dL however he is currently follow-up with his PCP only. Patient came to the ER because of weakness for the last couple of weeks associated with dizziness and intermittent lightheadedness. He has been having worsening lower extremity edema and spironolactone was recently added by Dr. Burgess. In the ER, patient was found to have A-fib with bradycardia with heartrate 30s. He was found also to have hyperkalemia with potassium 6.5 mEq/L. Creatinine was up to 1.8 mg/dL as well. BNP was only 151. TSH 4.68. COVID 19 PCR was negative. Patient was not on any beta-blockers. She was treated with Lokelma for hyperkalemia and nephrology was consulted. I did review the chart overnight and since the patient has been on high-dose potassium chloride 2 mEq daily in addition to spironolactone, I just increased the dose of bumetanide to 2 mg twice a day and repeat potassium was down to 3.7 mg/L so I did stop Lokelmaand bumetanide was decreased To 1 mg twice a day. Today potassium is further down to 2.7 mEq/L so 40 meqpotassium chloride was given. Magnesium is 1.6 mg/dLon admission Today I am seeing the patient in his room. He is awake and able to give historyappropriately. He has minimal shortness of breath. He stated that edema has markedly improved with diuretics. He used to be on metolazone that is currentlyon hold. He had a temporary pacemaker placed. He was evaluated by cardiology and considering the A-fib with severe bradycardia with no beta-blockers, patientis being evaluated for pacemaker placement. Sedentary, patient was found to have persistently elevated calcium 10.5 to 10.9 mg/dL over the last few years. Patient has no previous history of kidney stones Patient is currently denies any chest pain. He feels comfortable. No shortnessof breath. He stated that his baseline weight around 245 pounds when he feels comfortable. Review of Systems Review of Systems All other systems reviewed & are negative unless noted below or in HPI Constitutional Constitutional: Reports system reviewed and no additional complaints, except as documented Cardiovascular Cardiovascular: Reports system reviewed and no additional complaints, except as documented Respiratory Respiratory: Reports system reviewed and no additional complaints, except as documented Gastrointestinal Gastrointestinal: Reports system reviewed and no additional complaints, except as documented Genitourinary Genitourinary: Reports system reviewed and no additional complaints, except as documented Neurologic Neurologic: Reports system reviewed and no additional complaints, except as documented Hematologic/Lymphatic Hematologic/Lymphatic: Reports system reviewed and no additional complaints, except as documented [facility] Medical History (Updated 02/08/23 @ 12:53 by Mina Reilly MD) Amputation toe partial left great and 2nd toe Atrial fibrillation Cardiomyopathy Chronic renal disease Diabetes mellitus Hx of intestinal obstruction Hyperlipemia Hypertension Hypothyroid Large B-cell lymphoma ZAYRA (obstructive sleep apnea) no device Presence of Watchman left atrial appendage closure device Surgical History (Updated 02/06/23 @ 17:44 by Danya Sebastian RN) H/O cardiac radiofrequency ablation H/O heart artery stent History of hernia surgery History of orthopedic surgery knee torn cartliadge S/P gastric surgery Family History Mother Cardiovascular disease Diabetes Dementia Father Cardiovascular disease Diabetes Dementia Social History Smoking Status: Former smoker Tobacco Type: cigarettes Substance Use Type: None Meds Medications & Allergies Allergies diltiazem Adverse Reaction (Verified 02/06/23 12:18) Palpitations lisinopril Adverse Reaction (Verified 02/06/23 12:18) Swelling of Lip/Tongue/Throat morphine Adverse Reaction (Verified 02/06/23 12:18) Palpitations Home Medications albuterol sulfate 90 mcg/actuation aerosol inhaler 1 puff inhalation Q4-6H PRN Shortness Of Breath Or Wheezing 12/24/16 [History Confirmed 02/06/23] allopurinol 300 mg tablet 300 mg PO DAILY 12/24/16 [History Confirmed 02/06/23] bumetanide 2 mg tablet 4 mg PO QAM 12/24/16 [History Confirmed 02/07/23] magnesium oxide 400 mg (241.3 mg magnesium) tablet 500 mg PO BID 12/24/16 [History Confirmed 02/06/23] metolazone 2.5 mg tablet 5 mg PO DAILY 12/24/16 [History Confirmed 02/06/23] omeprazole 40 mg capsule,delayed release 40 mg PO BID 12/24/16 [History Confirmed 02/06/23] tramadol 50 mg tablet 100 mg PO QID PRN Pain 07/28/19 [History Confirmed 02/06/23] potassium chloride 20 mEq tablet,extended release 160 meq PO HS 10/11/20 [History Confirmed 02/06/23] aspirin 81 mg capsule 81 mg PO HS 09/20/21 [History Confirmed 02/06/23] cholecalciferol (vitamin D3) 100 mcg (4,000 unit) capsule 4,000 unit PO DAILY 09/20/21 [History Confirmed 02/06/23] atorvastatin 20 mg tablet 20 mg PO HS 04/03/22 [History Confirmed 02/06/23] glipizide 2.5 mg tablet, extended release 24 hr 2.5 mg PO BID 04/03/22 [History Confirmed 02/06/23] potassium chloride 20 mEq tablet,extended release 200 meq PO QAM 04/03/22 [History Confirmed 02/06/23] tizanidine 4 mg tablet 4 mg PO TID 04/03/22 [History Confirmed 02/06/23] gabapentin 600 mg tablet 1,200 mg PO BID #360 tabs 04/20/22 [Rx Confirmed 02/06/23] biotin 10,000 mcg disintegrating tablet 10,000 mcg PO DAILY 11/27/22 [History Confirmed 02/06/23] levothyroxine 25 mcg tablet (Synthroid) 25 mcg PO DAILY 02/06/23 [History Confirmed 02/06/23] sennosides 8.6 mg-docusate sodium 50 mg tablet 2 tab-cap PO QHS 02/06/23 [History Confirmed 02/06/23] spironolactone 25 mg tablet 25 mg PO DAILY 02/06/23 [History Confirmed 02/06/23] thiamine HCl (vitamin B1) 100 mg tablet (Vitamin B-1) 100 mg PO DAILY 11/22/23 [History Confirmed 02/06/23] Active Medications: Active Medications Acetaminophen (Acetaminophen 325 Mg Tablet) 650 mg PO Q6HR PRN PRN Reason: Pain Scale 1 - 3 or fever Stop: 02/06/24 16:29 Last Admin: 02/08/23 06:02 Dose: 650 mg Albuterol (Albuterol Hfa 60 Puff/8 Gram Inhaler) 1 puff INHALATION Q4H PRN PRN Reason: Shortness Of Breath Or Wheezing Stop: 02/06/24 16:28 Allopurinol (Allopurinol 300 Mg Tablet) 300 mg PO DAILY PAT Stop: 02/07/24 08:59 Last Admin: 02/08/23 08:31 Dose: 300 mg Aspirin (Aspirin 81 Mg Tablet.) 81 mg PO HS PAT Stop: 02/06/24 21:59 Last Admin: 02/07/23 21:26 Dose: 81 mg Atorvastatin Calcium (Atorvastatin 20 Mg Tablet) 20 mg PO HS PAT Stop: 02/06/24 21:59 Last Admin: 02/07/23 21:26 Dose: 20 mg Atropine Sulfate (Atropine Sulfate 1 Mg/10 Ml Syringe) 1 mg IV-PUSH ONCE PRN PRN Reason: Bradycardia Bisacodyl (Bisacodyl 5 Mg Tablet.) 10 mg PO DAILY PRN PRN Reason: Constipation Stop: 02/06/24 16:29 Bumetanide (Bumetanide 1 Mg Tablet) 1 mg PO BID.WITH.MEALS [facility] Stop: 02/08/24 07:59 Last Admin: 02/08/23 08:30 Dose: 1 mg Enoxaparin Sodium (Enoxaparin 40 Mg/0.4 Ml Syringe) 40 mg SUBCUT DAILY@10 PAT Stop: 02/07/24 09:59 Last Admin: 02/08/23 09:46 Dose: 40 mg Gabapentin (Gabapentin 600 Mg Tablet) 1,200 mg PO BID PAT Stop: 02/06/24 20:59 Last Admin: 02/08/23 08:31 Dose: 1,200 mg Glipizide (Glipizide 2.5 Mg Tab.Er.24) 2.5 mg PO BID.WITH.MEALS PAT Stop: 02/07/24 07:59 Last Admin: 02/08/23 08:30 Dose: 2.5 mg Levothyroxine Sodium (Levothyroxine 25 Mcg Tablet) 25 mcg PO DAILY@0630 [facility] Stop: 02/07/24 06:29 Last Admin: 02/08/23 06:02 Dose: 25 mcg Magnesium Oxide (Magnesium Oxide 400 Mg Tablet) 400 mg PO BID [facility] Stop: 02/06/24 20:59 Last Admin: 02/08/23 08:30 Dose: 400 mg Melatonin (Melatonin 5 Mg Tablet) 5 mg PO QHS PRN PRN Reason: Insomnia Stop: 02/06/24 16:29 Last Admin: 02/07/23 21:40 Dose: 5 mg Ondansetron HCl (Ondansetron 4 Mg/2 Ml Vial) 4 mg IV-PUSH Q8H PRN PRN Reason: Nausea And Vomiting Stop: 02/06/24 16:29 Pantoprazole Sodium (Pantoprazole 40 Mg Tablet.Dr) 40 mg PO BID [facility] Stop: 02/06/24 20:59 Last Admin: 02/08/23 08:31 Dose: 40 mg Potassium Chloride (Potassium Chloride Er 20 Meq Tab.Er.Prt) 40 meq PO DAILY PRN PRN Reason: Hypokalemia Stop: 02/08/24 08:42 Senna/Docusate Sodium (Sennosides/Docusate 8.6-50mg 1 Tab Tablet) 2 tab PO QHS [facility] Stop: 02/06/24 21:59 Last Admin: 02/07/23 21:26 Dose: 2 tab Sodium Chloride (Sodium Chloride 0.9 % 10 Ml Syringe) 0 ml IV-PUSH PRN PRN PRN Reason: Flush Stop: 02/06/24 12:17 Last Admin: 02/06/23 15:55 Dose: 10 ml Spironolactone (Spironolactone 25 Mg Tablet) 25 mg PO BID [facility] Stop: 02/08/24 08:59 Last Admin: 02/08/23 09:46 Dose: 25 mg Thiamine HCl (Thiamine 100 Mg Tablet) 100 mg PO DAILY [facility] Stop: 02/07/24 08:59 Last Admin: 02/08/23 08:30 Dose: 100 mg Tizanidine HCl (Tizanidine 4 Mg Tablet) 4 mg PO Q8H PRN PRN Reason: Pain Stop: 02/06/24 16:28 Last Admin: 02/08/23 06:02 Dose: 4 mg Tramadol HCl (Tramadol 50 Mg Tablet) 100 mg PO QID PRN PRN Reason: Pain Stop: 08/05/23 16:28 Last Admin: 02/08/23 06:03 Dose: 100 mg Vitamin D (Cholecalciferol 25 Mcg (1,000 Units) Tablet) 100 mcg PO DAILY PAT Stop: 02/07/24 08:59 Last Admin: 02/08/23 08:31 Dose: 100 mcg Exam Physical Exam Vital Signs: Temp Pulse Resp BP Pulse Ox O2 Del Method 36.3 C L 58 L 18 156/87 H 98 Room Air 02/08/23 08:00 02/08/23 08:00 02/08/23 08:00 02/08/23 08:00 02/08/23 08:00 02/08/23 08:00 Narrative: Constitutional: Moderately obese, appears comfortable and not in distress HEENT: Atraumatic, normocephalic. No pallor or jaundice. Cardiovascular: Irregular, normal S1-S2, no gallop or rub, No JVD Respiratory: Good bilateral air entry no wheezing or crackles Gastrointestinal: Soft, non tender, positive bowel sounds. No palpable organs or masses per Extremities: 1+ edema bilateral and symmetrically. He has wounds on the plantarsurface of right great toe. He has multiple toes amputation. He follow-up withDr. Bolden podiatry. Skin: No rashes or bruises Musculoskeletal: No joints swellings or inflammation Neurology: Awake, alert, oriented ?3, No focal motor or sensory deficits Psych: Normal mood and affect Results Labs 02/06/23 13:05 02/08/23 04:18 Labs: 02/07/23 02/08/23 02/08/23 19:10 04:18 04:18 BUN 34 H 37 H Creatinine 1.80 H 1.66 H Phosphorus 4.2 25-OH Vitamin D Total 43.1 PTH Intact 201.3 H Abnormal Labs 02/06/23 02/06/23 02/06/23 13:05 13:05 13:05 RDW 16.0 H Lymph # (Auto) 0.9 L VBG pH VBG pO2 VBG O2 Saturation VBG O2 Content Sodium Potassium BUN 29 H Creatinine 1.31 H Glucose 164 H Calcium 11.3 H Magnesium 1.6 L Alkaline Phosphatase 108 H B-Natriuretic Peptide 151.0 H PTH Intact Ur Random Creatinine 02/06/23 02/07/2302/07/23 13:23 04:37 10:38 RDW Lymph # (Auto) VBG pH 7.31 L VBG pO2 28.8 L VBG O2 Saturation 51.4 L* VBG O2 Content 4.4 L Sodium 135 L 134 L Potassium 5.9 H 6.3 H* BUN 29 H 31 H Creatinine 1.40 H 1.42 H Glucose 164 H 177 H Calcium 10.9 H 10.8 H Magnesium Alkaline Phosphatase B-Natriuretic Peptide PTH Intact Ur Random Creatinine 02/07/23 02/07/23 02/08/23 17:35 19:10 04:18 RDW Lymph # (Auto) VBG pH VBG pO2 VBG O2 Saturation VBG O2 Content Sodium Potassium 2.7 L* BUN 34 H 37 H Creatinine 1.80 H 1.66 H Glucose 116 H Calcium 11.1 H 10.5 H Magnesium Alkaline Phosphatase B-Natriuretic Peptide PTH Intact Ur Random Creatinine 12.0 L 02/08/23 04:18 RDW Lymph # (Auto) VBG pH VBG pO2 VBG O2 Saturation VBG O2 Content Sodium Potassium BUN Creatinine Glucose Calcium Magnesium Alkaline Phosphatase B-Natriuretic Peptide PTH Intact 201.3 H Ur Random Creatinine Radiology Impressions Impressions - last 24 hours: Any impression(s) listed above is documentation that was entered by the reading physician into a diagnostic report(s) for Sandra Potter. I have reviewed the report(s) and am incorporating any findings in the treatment plan of this patient where applicable. ECG Data Attestation: I reviewed this ECG and interpreted as documented below: ECG Narrative: A-fib with bradycardia A&P - Nephrology Assessment/Plan (1) Hyperkalemia: Assessment/Problem Details: Patient presented with hyperkalemia 6.5 mmol/L seems to be related to excessive potassium replacement. Patient had episodes of hypokalemia before on aggressivediuresis for lymphedema and recurrent CHF. He has hypomagnesemia 1.6 mEq/L. Potassium is currently down to 2.7 mEq/L after holding potassium supplements and1 dose of Lokelma. Spot urine sodium, potassium and creatinine showed adequate potassium excretion by the kidney with potassium/creatinine more than 20 meq/ gram of creatinine (2) CKD (chronic kidney disease) stage 3, GFR 30-59 ml/min: Assessment/Problem Details: Patient has variable serum creatinine between 1.3 to 1.8 mg/dL since 2012 seems to be related to mild diabetic nephropathy and intermittent KVNG on diuretics. Urine analysis on admission showed no proteinuria. (3) Hypercalcemia: Assessment/Problem Details: Patient has longstanding mild hypercalcemia currently with elevated intact PTH. Phosphorus is normal. Patient could have secondary hyperparathyroidism related to mild CKD stage III however he stated that he had a parathyroid scan and he was diagnosed with primary hyperparathyroidism and he supposed to have parathyroidectomy that was canceled because of his cardiac status. Calcium has been always below 11 g/dL. No history of kidney stones. (4) Type 2 diabetes mellitus with peripheral neuropathy: Assessment/Problem Details: Patient has DM2 with peripheral neuropathy and feet wound. He follow-up with Dr. Teri Aragon DO. He stated that A1c is below 7% (5) Bradycardia: Assessment/Problem Details: Patient presents with bradycardia in the setting of no beta-blockers. He has A- fib s/p Watchman device as he cannot tolerate blood thinners. Patient is being evaluated for pacemaker placement. Plan * Potassium is currently low after discontinuation of potassium supplement. He had episode of hyperkalemia after addition of spironolactone in the setting of high potassium supplements. I had long discussion with the patient about new regimens to maintain potassium and fluid balance including bumetanide 1 mg twice a day rather than once a day with addition of spironolactone 25 mg twice a day. Patient will use metolazone as needed to keep his weight between 240 to 245 pounds. He need to weigh himself at home 2-3 times a week. * Continue magnesium oxide 400 mg twice a day, patient has hypomagnesemia * Patient has mild hypercalcemia that can be maintained with furosemide diuretics. Will check bilateral kidney ultrasound and if he has kidney stones, he will be encouraged to proceed with parathyroidectomy. Otherwise we can treat medically. * Will give oral potassium chloride as needed however if the patient's continues to have hypokalemia, will add potassium supplements at home but not more than 40 mEq daily since we are going to double the spironolactone and he will use metolazone as needed only. * Monitor daily intake, output and renal panel to adjust medications as indicated during hospital stay Appreciate consultation we will be happy to follow the patient with you during hospital stay This document was dictated utilizing computerized voice recognition technology. Errors in grammar, spelling, and or syntax may be noted. The creator of this document does not proofread for this. Documented By: Mina Reilly MD 02/08/23 1234 Signed By: <Electronically signed by MD Mina Reilly> 02/08/23 1301 [facility] Work Phone: 1(886) 781-334711-24-2023 Progress note Author Barry Cisneros [facility] February 08, 2023 12:42pm Note Date/Time February 08, 2023 10:23am [facility] [address] [place] [address] Hospitalist Progress Note Signed with Addenda Patient: Sandra Potter MR#: [id number] : 1955 Acct:[id number] Age/Sex: 67 / M Adm Date: 3 Loc: Room: [address] [place] [address] Type: ADM INOo Attending Dr: Barry Cisneros MD Copies to: ~ ADDENDUM1 Patient will need more than 2 days in the hospital Change status to inpatient His potassium level 2.7 down from 6.3 Nephrology was consulted Bumex decreased to 2 mg twice daily instead of 4 mg daily Metolazone was held just held it Cardiology recommend to give the patient at least 1 to 2 days to adjust his medicine and replace his potassium, he is not safe yet to go home Addendum Documented By: Barry Cisneros MD 02/08/23 1241 Addendum Signed By: <Electronically signed by Barry Cisneros MD> 02/08/23 1241 Date of Service: 02/08/2023 Subjective Subjective Narrative: 67-year-old white male with past medical history of obesity, hypertension, hyperlipidemia, diabetes type 2, coronary artery disease status post angioplasties, history of ischemic cardiomyopathy, hypothyroidism, history of large B-cell lymphoma, obstructive sleep apnea presented emergency room with generalized weakness. He has been feeling well for the last couple weeks. Associated with dizziness. He describes as lightheadedness. Associated with right-sided chest pain which lasted for 1 minute today in the morning. Which resolved body aches gas. He denies having shortness of breath. No palpitation. Denies orthopnea and PND. He has been having worsening leg edema. He denies having any nausea or vomiting. No abdominal pain. Denies any dysuria, hematuria, frequency. No hematemesis, melena, or hematochezia. Upon presentation to emergency room he was bradycardic with heart rate went to the 30s. Seen and examined Clinically stable No complaints No dizziness No chest pain or SOB Exam Physical Exam Vital Signs: Temp Pulse Resp BP Pulse Ox O2 Del Method 97.4 F L 58 L 18 156/87 H 98 Room Air 02/08/23 08:00 02/08/23 08:00 02/08/23 08:00 02/08/23 08:00 02/08/23 08:00 02/08/23 08:00 Narrative: General patient laying in bed in no acute distress alert awake oriented x3 HEENT PERRLA Neck supple no JVD no carotid bruit CVS S1-S2 regular rate and rhythm no murmur no gallop Chest clear to auscultation percussion Abdomen soft bowel sounds normoactive no rebound no guarding Extremities no stenosis no clubbing no edema Musculoskeletal exam normal no joint effusion Neurologic exam oriented x3 alert awake no focal left Psychiatry: Normal insight and judgment Skin: No rash no lesions Objective Lab Results 02/06/23 13:05 02/08/23 04:18 Meds Allergies and Active Meds Allergies diltiazem Adverse Reaction (Verified 02/06/23 12:18) Palpitations lisinopril Adverse Reaction (Verified 02/06/23 12:18) Swelling of Lip/Tongue/Throat morphine Adverse Reaction (Verified 02/06/23 12:18) Palpitations Active Meds: Active Medications Generic Name Dose Route Start Last Admin Trade Name Freq PRN Reason Stop Dose Admin Acetaminophen 650 mg 02/06/23 16:30 02/08/23 06:02 Acetaminophen 325 Mg Tablet PO 02/06/24 16:29 650 mg Q6HR PRN Administration Pain Scale 1 - 3 or fever Albuterol 1 puff 02/06/23 16:29 Albuterol Hfa 60 Puff/8 Gram Inhaler INHALATION 02/06/24 16:28 Q4H PRN Shortness Of Breath Or Wheezing Allopurinol 300 mg 02/07/23 09:00 02/08/23 08:31 Allopurinol 300 Mg Tablet PO 02/07/24 08:59 300 mg DAILY PAT Administration Aspirin 81 mg 02/06/23 22:00 02/07/23 21:26 Aspirin 81 Mg Tablet. PO 02/06/24 21:59 81 mg HS PAT Administration Atorvastatin Calcium 20 mg 02/06/23 22:00 02/07/23 21:26 Atorvastatin 20 Mg Tablet PO 02/06/24 21:59 20 mg HS PAT Administration Atropine Sulfate 1 mg 02/07/23 03:28 Atropine Sulfate 1 Mg/10 Ml Syringe IV-PUSH ONCE PRN Bradycardia Bisacodyl 10 mg 02/06/23 16:30 Bisacodyl 5 Mg Tablet. PO 02/06/24 16:29 DAILY PRN Constipation Bumetanide 1 mg 02/08/23 08:00 02/08/23 08:30 Bumetanide 1 Mg Tablet PO 02/08/24 07:59 1 mg BID.WITH.MEALS PAT Administration Enoxaparin Sodium 40 mg 02/07/23 10:00 02/08/23 09:46 Enoxaparin 40 Mg/0.4 Ml Syringe SUBCUT 02/07/24 09:59 40 mg DAILY@10 PAT Administration Gabapentin 1,200 mg 02/06/23 21:00 02/08/23 08:31 Gabapentin 600 Mg Tablet PO 02/06/24 20:59 1,200 mg BID PAT Administration Glipizide 2.5 mg 02/07/23 08:00 02/08/23 08:30 Glipizide 2.5 Mg Tab.Er.24 PO 02/07/24 07:59 2.5 mg BID.WITH.MEALS PAT Administration Levothyroxine Sodium 25 mcg 02/07/23 06:30 02/08/23 06:02 Levothyroxine 25 Mcg Tablet PO 02/07/24 06:29 25 mcg DAILY@0630 PAT Administration Magnesium Oxide 400 mg 02/06/23 21:00 02/08/23 08:30 Magnesium Oxide 400 Mg Tablet PO 02/06/24 20:59 400 mg BID PAT Administration Melatonin 5 mg 02/06/23 16:30 02/07/23 21:40 Melatonin 5 Mg Tablet PO 02/06/24 16:29 5 mg QHS PRN Administration Insomnia Ondansetron HCl 4 mg 02/06/23 16:30 Ondansetron 4 Mg/2 Ml Vial IV-PUSH 02/06/24 16:29 Q8H PRN Nausea And Vomiting Pantoprazole Sodium 40 mg 02/06/23 21:00 02/08/23 08:31 Pantoprazole 40 Mg Tablet.Dr PO 02/06/24 20:59 40 mg BID PAT Administration Potassium Chloride 40 meq 02/08/23 08:43 Potassium Chloride Er 20 Meq Tab.Er.Prt PO 02/08/24 08:42 DAILY PRN Hypokalemia Senna/Docusate Sodium 2 tab 02/06/23 22:00 02/07/23 21:26 Sennosides/Docusate 8.6-50mg 1 Tab Tablet PO 02/06/24 21:59 2 tab QHS PAT Administration Sodium Chloride 0 ml 02/06/23 12:18 02/06/23 15:55 Sodium Chloride 0.9 % 10 Ml Syringe IV-PUSH 02/06/24 12:17 10 ml PRN PRN Administration Flush Spironolactone 25 mg 02/08/23 09:00 02/08/23 09:46 Spironolactone 25 Mg Tablet PO 02/08/24 08:59 25 mg BID PAT Administration Thiamine HCl 100 mg 02/07/23 09:00 02/08/23 08:30 Thiamine 100 Mg Tablet PO 02/07/24 08:59 100 mg DAILY PAT Administration Tizanidine HCl 4 mg 02/06/23 16:29 02/08/23 06:02 Tizanidine 4 Mg Tablet PO 02/06/24 16:28 4 mg Q8H PRN Administration Pain Tramadol HCl 100 mg 02/06/23 16:29 02/08/23 06:03 Tramadol 50 Mg Tablet PO 08/05/23 16:28 100 mg QID PRN Administration Pain Vitamin D 100 mcg 02/07/23 09:00 02/08/23 08:31 Cholecalciferol 25 Mcg (1,000 Units) Tablet PO 02/07/24 08:59 100 mcg DAILY PAT Administration A&P - Hospitalist Assessment/Plan (1) Generalized weakness: (2) Bradycardia: (3) HTN (hypertension): (4) CKD (chronic kidney disease) stage 3, GFR 30-59 ml/min: (5) Obesity (BMI 35.0-39.9 without comorbidity): (6) Diabetes 1.5, managed as type 2: (7) CHF (congestive heart failure), NYHA class I: (8) A-fib: Plan 67-year-old white male with past medical history of obesity, hypertension, hyperlipidemia, diabetes type 2, coronary artery disease status post angioplasties, history of ischemic cardiomyopathy, hypothyroidism, history of large B-cell lymphoma, obstructive sleep apnea presented emergency room with generalized weakness. He has been feeling well for the last couple weeks. Associated with dizziness. He describes as lightheadedness. Associated with right-sided chest pain which lasted for 1 minute today in the morning. Which resolved body aches gas. He denies having shortness of breath. No palpitation. Denies orthopnea and PND. He has been having worsening leg edema. He denies having any nausea or vomiting. No abdominal pain. Denies any dysuria, hematuria, frequency. No hematemesis, melena, or hematochezia. Upon presentation to emergency room he was bradycardic with heart rate went to the 30s. Assessment and plan Generalized weakness Sinus bradycardia Seen and examined Clinically better HR is better now in 60s kidney function is improving Metolazone was held Potassium level now low at 2.7 Aldactone was resumed Replace potassium Nephrology is following Cardiology is following Hypertension: Controlled Diabetes type 2: Accu-Chek ACHS/insulin sliding scale/resume glipizide Obesity: Lifestyle modification Hyperlipidemia: Resume Lipitor Hypothyroidism: Resume Synthroid/TSH level in the morning Coronary disease status post angioplasties: Aspirin daily and Lipitor/not on anybeta-dunia due to bradycardia Obstructive sleep apnea DVT prophylaxis: Lovenox daily Documented By: Barry Cisneros MD 02/08/23 1019 Signed By: <Electronically signed by Barry Cisneros MD> 02/08/23 1023 [facility] Work Phone: 1(193) 466-343011-24-2023 Progress note Author Deanne Gaxiola [facility] February 08, 2023 11:45am Note Date/Time February 08, 2023 11:38am [facility] [address] [place] [address] Cardiology Progress Note Signed Patient: Sandra Potter MR#: [id number] : 1955 Acct:[id number] Age/Sex: 67 / M Adm Date: 3 Loc: 4 Room: [address] [place] [address] Type: ADM INOo Attending Dr: Barry Cisneros MD Copies to: ~ Date of Service: 02/08/2023 Subjective Interval history: Patient without new complaint. Heart rate seem to have recovered spontaneously. His potassium down to 2.7. Exam Physical Exam Vital Signs: Temp Pulse Resp BP Pulse Ox O2 Del Method 97.4 F L 58 L 18 156/87 H 98 Room Air 02/08/23 08:00 02/08/23 08:00 02/08/23 08:00 02/08/23 08:00 02/08/23 08:00 02/08/23 08:00 Const General: cooperative Neck Neck: supple Lymphatic: no lymphadenopathy noted Resp Effort & Inspection: normal respiratory effort Auscultation: clear to auscultation bilaterally Cardio Rhythm: abnormal rhythm irregularly irregular Heart Sounds: S1 normal and S2 normal Skin General: dry skin Extrem General: full ROM and no clubbing, cyanosis or edema Objective Labs 02/06/23 13:05 02/08/23 04:18 Labs: Laboratory Results - last 24 hr 02/07/23 02/07/23 02/07/23 10:38 17:35 19:10 PHA Creatinine Clear 67.53 53.28 Sodium 134 L 138 Potassium 6.3 H* 3.6 D Chloride 106 100 Carbon Dioxide 26.1 29.3 Anion Gap 8.2 12.3 BUN 31 H 34 H Creatinine 1.42 H 1.80 H Est GFR (CKD-EPI) 54.836 41.256 Glucose 177 H 116 H POC Glucose Calcium 10.8 H 11.1 H Phosphorus 25-OH Vitamin D Total PTH Intact Ur Random Creatinine 12.0 L Ur Random Sodium 63 Ur Random Potassium 70.6 02/07/23 02/07/23 02/08/23 20:38 21:22 04:18 PHA Creatinine Clear 57.77 Sodium 138 Potassium 2.7 L* Chloride 98 Carbon Dioxide 30.9 Anion Gap 11.8 BUN 37 H Creatinine 1.66 H Est GFR (CKD-EPI) 45.465 Glucose 80 POC Glucose 63 117 Calcium 10.5 H Phosphorus 4.2 25-OH Vitamin D Total 43.1 PTH Intact Ur Random Creatinine Ur Random Sodium Ur Random Potassium 02/08/23 04:18 PHA Creatinine Clear Sodium Potassium Chloride Carbon Dioxide Anion Gap BUN Creatinine Est GFR (CKD-EPI) Glucose POC Glucose Calcium Phosphorus 25-OH Vitamin D Total PTH Intact 201.3 H Ur Random Creatinine Ur Random Sodium Ur Random Potassium A&P - Cardiology (1) A-fib: Qualifiers: Atrial fibrillation type: chronic Qualified Code(s): I48.2 - Chronic atrial fibrillation Code(s): I48.91 - Unspecified atrial fibrillation Status: Chronic Plan Assessment 1. Symptomatic bradycardia with atrial fibrillation with very slow ventricular rate consistent with AV deon disease but appears to be well-tolerated at the moment. Actually today his heart rate seem to have recovered somehow and is nowin the 50s lower 60s 2. Coronary artery disease with remote PCI to the LAD 3. Patient suspected to have apical hypertrophic cardiomyopathy. Echocardiogram pending 4. Chronic diastolic heart failure requiring large doses of diuretics and potassium replacement 5. Morbid obesity 6. History of B-cell lymphoma 7. Intolerance to anticoagulation 8. Status post Watchman device 9. Sleep apnea 10. Peripheral vascular disease with multiple toe amputation and currently unhealed ulcer of the fourth 11. Hyperkalemia due to potassium replacement and Aldactone 12 acute kidney injury. Seen by nephrology who who has been addressing those issues 12. History of lower extremity edema and diastolic heart failure has been on high-dose diuretics Plan 1. Patient is the criteria for pacemaker implantation. I discussed The Timing. Unfortunately in the next few days Dr. Thompson is not available till Saturday. We did talk about transferring the patient to oral area versus staying here the patient and the family want to stay over here with his heart rate improvement I do not believe there is a rash or urgency for that. The patient elected to staytill Saturday for pacemaker implantation 2. Potassium and diuretics are being managed by the nephrology service 3. Will recheck echocardiogram looking for apical hypertrophic cardiomyopathy Documented By: Deanne Gaxiola MD 02/08/23 1138 Signed By: <Electronically signed by MD Deanne Gaxiola> 02/08/23 1145 [facility] Work Phone: [phone]) 974-726411-23-2023 Progress note Author Mina Reilly [facility] February 07, 2023 2:32pm Note Date/Time February 07, 2023 2:32pm [facility] [address] [place] [address] Event Note Signed Patient: Sandra Potter MR#: [id number] : 1955 Acct:[id number] Age/Sex: 67 / M Adm Date: 3 Loc: Room: [address] [place] [address] Type: ADM INOo Attending Dr: Barry Cisneros MD Copies to: MD Mina Patel MD Matthew A Braniecki, DO~ Status Event Note Event Note DATE OF EVENT: 02/07/23 TIME OF EVENT: 14:27 EVENT DETAILS: Nephrology was consulted for hyperkalemia 6.3 mmol/L. Patient is known to have CKD stage III with serum creatinine slightly higher than baseline. Blood work also showed evidence of chronic mild hypercalcemia 10.8 mg/dL Chart and medications reviewed. Consult and full note will follow. Patient has been on high-dose potassium supplement 160 MEQ daily at home in addition to spironolactone that was started recently. Potassium supplement was stopped. Patient still on bumetanide and spironolactone for HFpEF. Plan: * Increase bumetanide to 2 mg twice a day to enhance potassium excretion. Metolazone was stopped by primary team. * Hold spironolactone for now. Potassium supplement was stopped. * I agree with Lokelma 10 g 3 times daily x 6 doses. * Patient has mild CKD and potassium is expected to improve after discontinuation of potassium supplement. I will check spot urine potassium and creatinine to ensure adequate renal potassium handling. * I will recheck potassium at 7 PM today to ensure the potassium is down. * Patient has persistent mild hypercalcemia. He has a history of lymphoma that seems to be cured s/p chemotherapy. Will check phosphorus, intact PTH and 25- hydroxy vitamin D for further evaluation of hypercalcemia. Documented By: Mina Reilly MD 02/07/231426 Signed By: <Electronically signed by MD Mina Reilly> 02/07/231431 [facility] Work Phone: 1(832) 259-258011-23-2023 Consult note Author Deanne Gaxiola [facility] February 07, 2023 2:05pm Note Date/Time February 07, 2023 1:52pm [facility] [address] [place] [address] Cardiology Consult Note Signed Patient: Sandra Potter MR#: [id number] : 1955 Acct:[id number] Age/Sex: 67 / M Adm Date: 3 Loc: Room: [address] [place] [address] Type: ADM INOo Attending Dr: Barry Cisneros MD Copies to: MD Teri Patel DO Mourhaf A Traboulssi, MD~ Cardiology HPI History of Present Illness Consult Date: 02/07/23 Reason for Consult: Cardiac consultation requested for evaluation of bradycardia HPI: Mr. Potter is a 67 year old male known to our practice. He is known to have history of chronic permanent atrial fibrillation, status post Watchman device implantation due to intolerance to anticoagulation, hypertension, hyperlipidemiaand coronary artery disease with remote PCI to the LAD. Presented to hospital complaining of fatigue, tiredness and weakness. He describes few episodes of lightheadedness. He noticed significant decline in his functional status. On presentation patient was noted to be in atrial fibrillation with slow ventricular rate with heart rate in the upper 30s. Reviewing our record indicate the patient had clear evidence of AV node dysfunction and had not been on anyAV blocking agent for almost a year. His baseline rate typically runs in the upper 40s to low 50s. The patient does have a history of diastolic heart failure and previous echo was suspicious of asymmetrical septal hypertrophy withminor mid left nuclear cavity obstruction. He has been on large doses of diuretics and potassium replacement therapy. Aldactone was added recently. Thepatient also has been struggling with unhealed foot ulcer and has been followed by podiatry. Recent bone scan was ordered and ruled out the possibility of osteomyelitis. Review of Systems Constitutional Constitutional: Reports fatigue and Reports malaise Eyes Eyes: Reports system reviewed and no additional complaints, except as documented ENT Ears, Nose, Mouth, and Throat: Reports system reviewed and no additional complaints, except as documented Cardiovascular Cardiovascular: Reports system reviewed and no additional complaints, except as documented Respiratory Respiratory: Reports system reviewed and no additional complaints, except as documented and Reports dyspnea on exertion Gastrointestinal Gastrointestinal: Reports system reviewed and no additional complaints, except as documented Genitourinary Genitourinary: Reports system reviewed and no additional complaints, except as documented Musculoskeletal Musculoskeletal: Reports system reviewed and no additional complaints, except asdocumented Integumentary/Breasts Skin/Breast: Reports system reviewed and no additional complaints, except as documented Neurologic Neurologic: Reports system reviewed and no additional complaints, except as documented Psychiatric Psychiatric: Reports system reviewed and no additional complaints, except as documented Endocrine Endocrine: Reports system reviewed and no additional complaints, except as documented Hematologic/Lymphatic Hematologic/Lymphatic: Reports system reviewed and no additional complaints, except as documented Allergic/Immunologic Allergic/Immunologic: Reports system reviewed and no additional complaints, except as documented PMFSH Source: Unable to Obtain Medical History (Updated 02/06/23 @ 17:45 by Bobby Bernabe DO) Amputation toe partial left great and 2nd toe Atrial fibrillation Cardiomyopathy Chronic renal disease Diabetes mellitus Hx of intestinal obstruction Hyperlipemia Hypertension Hypothyroid Large B-cell lymphoma ZAYRA (obstructive sleep apnea) no device Presence of Watchman left atrial appendage closure device Surgical History (Updated 02/06/23 @ 17:44 by Danya Sebastian RN) H/O cardiac radiofrequency ablation H/O heart artery stent History of hernia surgery History of orthopedic surgery knee torn cartliadge S/P gastric surgery Family History Mother Cardiovascular disease Diabetes Dementia Father Cardiovascular disease Diabetes Dementia Social History Smoking Status: Former smoker Tobacco Type: cigarettes Substance Use Type: None Meds Medications and Allergies Allergies diltiazem Adverse Reaction (Verified 02/06/23 12:18) Palpitations lisinopril Adverse Reaction (Verified 02/06/23 12:18) Swelling of Lip/Tongue/Throat morphine Adverse Reaction (Verified 02/06/23 12:18) Palpitations Home Medications albuterol sulfate 90 mcg/actuation aerosol inhaler 1 puff inhalation Q4-6H PRN Shortness Of Breath Or Wheezing 12/24/16 [History Confirmed 02/06/23] allopurinol 300 mg tablet 300 mg PO DAILY 12/24/16 [History Confirmed 02/06/23] bumetanide 2 mg tablet 4 mg PO QAM 12/24/16 [History Confirmed 02/07/23] magnesium oxide 400 mg (241.3 mg magnesium) tablet 500 mg PO BID 12/24/16 [History Confirmed 02/06/23] metolazone 2.5 mg tablet 5 mg PO DAILY 12/24/16 [History Confirmed 02/06/23] omeprazole 40 mg capsule,delayed release 40 mg PO BID 12/24/16 [History Confirmed 02/06/23] tramadol 50 mg tablet 100 mg PO QID PRN Pain 07/28/19 [History Confirmed 02/06/23] potassium chloride 20 mEq tablet,extended release 160 meq PO HS 10/11/20 [History Confirmed 02/06/23] aspirin 81 mg capsule 81 mg PO HS 09/20/21 [History Confirmed 02/06/23] cholecalciferol (vitamin D3) 100 mcg (4,000 unit) capsule 4,000 unit PO DAILY 09/20/21 [History Confirmed 02/06/23] atorvastatin 20 mg tablet 20 mg PO HS 04/03/22 [History Confirmed 02/06/23] glipizide 2.5 mg tablet, extended release 24 hr 2.5 mg PO BID 04/03/22 [History Confirmed 02/06/23] potassium chloride 20 mEq tablet,extended release 200 meq PO QAM 04/03/22 [History Confirmed 02/06/23] tizanidine 4 mg tablet 4 mg PO TID 04/03/22 [History Confirmed 02/06/23] gabapentin 600 mg tablet 1,200 mg PO BID #360 tabs 04/20/22 [Rx Confirmed 02/06/23] biotin 10,000 mcg disintegrating tablet 10,000 mcg PO DAILY 11/27/22 [History Confirmed 02/06/23] levothyroxine 25 mcg tablet (Synthroid) 25 mcg PO DAILY 02/06/23 [History Confirmed 02/06/23] sennosides 8.6 mg-docusate sodium 50 mg tablet 2 tab-cap PO QHS 02/06/23 [History Confirmed 02/06/23] spironolactone 25 mg tablet 25 mg PO DAILY 02/06/23 [History Confirmed 02/06/23] thiamine HCl (vitamin B1) 100 mg tablet (Vitamin B-1) 100 mg PO DAILY 02/06/23 [History Confirmed 02/06/23] Exam Physical Exam Vital Signs: Temp Pulse Resp BP Pulse Ox O2 Del Method 98.3 F 42 L 18 138/65 98 Room Air 02/07/23 12:20 02/07/23 12:20 02/07/23 12:20 02/07/23 12:20 02/07/23 12:20 02/07/23 12:20 Const General: cooperative, comfortable, no acute distress and well developed Nutritional Appearance: obese morbidly HEENT Head: atraumatic Mouth: oral mucosae normal Eyes General: appearance normal, both eyes and all related structures Pupils: PERRL Neck Neck: normal visual inspection, supple and no lymphadenopathy noted Neck mass: No Thyroid: thyroid normal Carotids: normal carotid upstroke Chest Chest palpation & inspection: normal inspection of the chest Resp Effort & Inspection: normal respiratory effort Auscultation: clear to auscultation bilaterally Cardio Rate: bradycardic Rhythm: regular rhythm and abnormal rhythm irregularly irregular Heart Sounds: S1 normal and S2 normal GI Palpation: soft and no hepatosplenomegaly Percussion: normal to percussion Auscultation: normal bowel sounds Skin General: no rashes or lesions noted and dry skin Neuro General: patient alert, patient awake, patient oriented x3, tone normal and moves all extremities Extrem General: full ROM Other: Appearance of diminished peripheral pulses. The left lower extremity was not well examined and the left foot is in the boot Psych Mental Status: mental status grossly normal Results Labs 02/06/23 13:05 02/07/23 10:38 Lab results: Cardiac Enzymes 02/06/23 02/06/23 02/06/23 Range/Units 13:05 13:05 13:05 AST 21 (13-39) U/L Total Creatine Kinase 107 (30-223) U/L B-Natriuretic Peptide 151.0 H (5-100) pg/mL Comprehensive Metabolic Panel 02/06/23 02/07/23 02/07/23 Range/Units 13:05 04:37 10:38 Sodium 137 135 L 134 L (136-145) mmol/L Potassium 4.6 5.9 H 6.3 H* (3.5-5.1) mmol/L Chloride 104 105 106 (98-107) mmol/L Carbon Dioxide 28.3 27.4 26.1 (21.0-31.0) mmol/L BUN 29 H 29 H 31 H (7-25) mg/dL Creatinine 1.31 H 1.40 H 1.42 H (0.70-1.30) mg/dL Glucose 164 H 164 H 177 H (70-100) mg/dL Calcium 11.3 H 10.9 H 10.8 H (8.6-10.3) mg/dL AST 21 (13-39) U/L ALT 16 (7-52) U/L Alkaline Phosphatase 108 H (34-104) U/L Total Protein 7.5 (6.4-8.9) gm/dL Albumin 4.1 (3.5-5.7) gm/dL Intake and Output 02/06/23 02/07/23 02/07/23 23:59 07:59 15:59 Intake Total 350 / 1390 250 / 250 Balance 350 / 1390 250 / 250 Intake: Oral 350 / 350 250 / 250 Other: # Voids 1 # Unmeasured Voids 1 2 Weight 117.2 kg 117.2 kg Date of Last Bowel Movement 02/05/23 02/05/23 02/05/23 Patient Weight 02/07/23 23:59 Weight 117.2 kg Lab 02/06/23 13:05 PT 11.5 INR 1.0 APTT 31.1 EKG Interpretations EKG Attestation EKG: I reviewed this ECG and interpreted as documented below: (Atrial fibrillation with slow ventricular rate) A&P - Cardiology (1) A-fib: Qualifiers: Atrial fibrillation type: chronic Qualified Code(s): I48.2 - Chronic atrial fibrillation Code(s): I48.91 - Unspecified atrial fibrillation Plan Assessment 1. Symptomatic bradycardia with atrial fibrillation with very slow ventricular rate consistent with AV deon disease but appears to be well-tolerated at the moment 2. Coronary artery disease with remote PCI to the LAD 3. Patient suspected to have apical hypertrophic cardiomyopathy 4. Chronic diastolic heart failure requiring large doses of diuretics and potassium replacement 5. Morbid obesity 6. History of B-cell lymphoma 7. Intolerance to anticoagulation 8. Status post Watchman device 9. Sleep apnea 10. Peripheral vascular disease with multiple toe amputation and currently unhealed ulcer of the fourth 11. Hyperkalemia due to potassium replacement and Aldactone 12 acute kidney injury Plan 1. Patient is the criteria for pacemaker implantation. I discussed The Timing. Unfortunately in the next few days Dr. Thompson is not available till Saturday. The possibility of transferring him to [place] for pacemaker tomorrow discussed with the patient for social and family situation would prefer to stay here till Saturday to have the pacemaker done locally 2. Hold potassium replacement Tortal K less than 5 3. Check echocardiogram Documented By: Deanne Gaxiola MD 02/07/23 1350 Signed By: <Electronically signed by MD Deanne Gaxiola> 02/07/23 1406 [facility] Work Phone: 1(905) 408-886911-23-2023 Progress note Author Barry Cisneros [facility] February 07, 2023 11:08am Note Date/Time February 07, 2023 11:08am [facility] [address] [place] [address] Hospitalist Progress Note Signed Patient: Sandra Potter MR#: [id number] : 1955 Acct:[id number] Age/Sex: 67 / M Adm Date: 3 Loc: Room: [address] [place] [address] Type: ADM INOo Attending Dr: Barry Cisneros MD Copies to: ~ Date of Service: 02/07/2023 Subjective Subjective Narrative: 67-year-old white male with past medical history of obesity, hypertension, hyperlipidemia, diabetes type 2, coronary artery disease status post angioplasties, history of ischemic cardiomyopathy, hypothyroidism, history of large B-cell lymphoma, obstructive sleep apnea presented emergency room with generalized weakness. He has been feeling well for the last couple weeks. Associated with dizziness. He describes as lightheadedness. Associated with right-sided chest pain which lasted for 1 minute today in the morning. Which resolved body aches gas. He denies having shortness of breath. No palpitation. Denies orthopnea and PND. He has been having worsening leg edema. He denies having any nausea or vomiting. No abdominal pain. Denies any dysuria, hematuria, frequency. No hematemesis, melena, or hematochezia. Upon presentation to emergency room he was bradycardic with heart rate went to the 30s. Seen and examined Clinically stable No complaints No dizziness No chest pain or SOB Exam Physical Exam Vital Signs: Temp Pulse Resp BP Pulse Ox O2 Del Method 96.9 F L 38 L 16 95/55 L 96 Room Air 02/07/23 07:51 02/07/23 07:51 02/07/23 07:51 02/07/23 07:51 02/07/23 07:51 02/07/23 08:00 Narrative: General patient laying in bed in no acute distress alert awake oriented x3 HEENT PERRLA Neck supple no JVD no carotid bruit CVS S1-S2 regular rate and rhythm no murmur no gallop Chest clear to auscultation percussion Abdomen soft bowel sounds normoactive no rebound no guarding Extremities no stenosis no clubbing no edema Musculoskeletal exam normal no joint effusion Neurologic exam oriented x3 alert awake no focal left Psychiatry: Normal insight and judgment Skin: No rash no lesions Objective Lab Results 02/06/23 13:05 02/07/23 04:37 Microbiology Results Microbiology 02/06/23 13:11 Nasopharyngeal SARS-CoV-2, Influenza & RSV (PCR) - Final Meds Allergies and Active Meds Allergies diltiazem Adverse Reaction (Verified 02/06/23 12:18) Palpitations lisinopril Adverse Reaction (Verified 02/06/23 12:18) Swelling of Lip/Tongue/Throat morphine Adverse Reaction (Verified 02/06/23 12:18) Palpitations Active Meds: Active Medications Generic Name Dose Route Start Last Admin Trade Name Freq PRN Reason Stop Dose Admin Acetaminophen 650 mg 02/06/23 16:30 Acetaminophen 325 Mg Tablet PO 02/06/24 16:29 Q6HR PRN Pain Scale 1 - 3 or fever Albuterol 1 puff 02/06/23 16:29 Albuterol Hfa 60 Puff/8 Gram Inhaler INHALATION 02/06/24 16:28 Q4H PRN Shortness Of Breath Or Wheezing Allopurinol 300 mg 02/07/23 09:00 02/07/23 09:03 Allopurinol 300 Mg Tablet PO 02/07/24 08:59 300 mg DAILY PAT Administration Aspirin 81 mg 02/06/23 22:00 02/06/23 21:13 Aspirin 81 Mg Tablet. PO 02/06/24 21:59 81 mg HS PAT Administration Atorvastatin Calcium 20 mg 02/06/23 22:00 02/06/23 21:13 Atorvastatin 20 Mg Tablet PO 02/06/24 21:59 20 mg HS PAT Administration Atropine Sulfate 1 mg 02/07/23 03:28 Atropine Sulfate 1 Mg/10 Ml Syringe IV-PUSH ONCE PRN Bradycardia Bisacodyl 10 mg 02/06/23 16:30 Bisacodyl 5 Mg Tablet. PO 02/06/24 16:29 DAILY PRN Constipation Bumetanide 2 mg 02/07/23 09:00 02/07/23 09:03 Bumetanide 2 Mg Tablet PO 02/07/24 08:59 2 mg QAM PAT Administration Enoxaparin Sodium 40 mg 02/07/23 10:00 02/07/23 09:22 Enoxaparin 40 Mg/0.4 Ml Syringe SUBCUT 02/07/24 09:59 40 mg DAILY@10 PAT Administration Gabapentin 1,200 mg 02/06/23 21:00 02/07/23 09:03 Gabapentin 600 Mg Tablet PO 02/06/24 20:59 1,200 mg BID PAT Administration Glipizide 2.5 mg 02/07/23 08:00 02/07/23 09:04 Glipizide 2.5 Mg Tab.Er.24 PO 02/07/24 07:59 2.5 mg BID.WITH.MEALS PAT Administration Levothyroxine Sodium 25 mcg 02/07/23 06:30 02/07/23 05:36 Levothyroxine 25 Mcg Tablet PO 02/07/24 06:29 25 mcg DAILY@0630 PAT Administration Magnesium Oxide 400 mg 02/06/23 21:00 02/07/23 09:04 Magnesium Oxide 400 Mg Tablet PO 02/06/24 20:59 400 mg BID PAT Administration Melatonin 5 mg 02/06/23 16:30 Melatonin 5 Mg Tablet PO 02/06/24 16:29 QHS PRN Insomnia Metolazone 5 mg 02/07/23 09:00 02/07/23 09:03 Metolazone 5 Mg Tablet PO 02/07/24 08:59 5 mg DAILY PAT Administration Ondansetron HCl 4 mg 02/06/23 16:30 Ondansetron 4 Mg/2 Ml Vial IV-PUSH 02/06/24 16:29 Q8H PRN Nausea And Vomiting Pantoprazole Sodium 40 mg 02/06/23 21:00 02/07/23 09:03 Pantoprazole 40 Mg Tablet. PO 02/06/24 20:59 40 mg BID PAT Administration Potassium Chloride 180 meq 02/06/23 22:00 02/06/23 21:39 Potassium Chloride Er 20 Meq Tab.Er.Prt PO 02/06/24 21:59 180 meq HS PAT Administration Potassium Chloride 220 meq 02/07/23 09:00 Potassium Chloride Er 20 Meq Tab.Er.Prt PO 02/07/24 08:59 QAM PAT Senna/Docusate Sodium 2 tab 02/06/23 22:00 02/06/23 21:12 Sennosides/Docusate 8.6-50mg 1 Tab Tablet PO 02/06/24 21:59 2 tab QHS PAT Administration Sodium Chloride 0 ml 02/06/23 12:18 02/06/23 15:55 Sodium Chloride 0.9 % 10 Ml Syringe IV-PUSH 02/06/24 12:17 10 ml PRN PRN Administration Flush Spironolactone 25 mg 02/07/23 09:00 02/07/23 09:03 Spironolactone 25 Mg Tablet PO 02/07/24 08:59 25 mg DAILY PAT Administration Thiamine HCl 100 mg 02/07/23 09:00 02/07/23 09:03 Thiamine 100 Mg Tablet PO 02/07/24 08:59 100 mg DAILY PAT Administration Tizanidine HCl 4 mg 02/06/23 16:29 02/06/23 21:13 Tizanidine 4 Mg Tablet PO 02/06/24 16:28 4 mg Q8H PRN Administration Pain Tramadol HCl 100 mg 02/06/23 16:29 02/07/23 09:22 Tramadol 50 Mg Tablet PO 08/05/23 16:28 100 mg QID PRN Administration Pain Vitamin D 100 mcg 02/07/23 09:00 02/07/23 09:03 Cholecalciferol 25 Mcg (1,000 Units) Tablet PO 02/07/24 08:59 100 mcg DAILY PAT Administration A&P - Hospitalist Assessment/Plan (1) Generalized weakness: (2) Bradycardia: (3) HTN (hypertension): (4) CKD (chronic kidney disease) stage 3, GFR 30-59 ml/min: (5) Obesity (BMI 35.0-39.9 without comorbidity): (6) Diabetes 1.5, managed as type 2: (7) CHF (congestive heart failure), NYHA class I: (8) A-fib: Plan 67-year-old white male with past medical history of obesity, hypertension, hyperlipidemia, diabetes type 2, coronary artery disease status post angioplasties, history of ischemic cardiomyopathy, hypothyroidism, history of large B-cell lymphoma, obstructive sleep apnea presented emergency room with generalized weakness. He has been feeling well for the last couple weeks. Associated with dizziness. He describes as lightheadedness. Associated with right-sided chest pain which lasted for 1 minute today in the morning. Which resolved body aches gas. He denies having shortness of breath. No palpitation. Denies orthopnea and PND. He has been having worsening leg edema. He denies having any nausea or vomiting. No abdominal pain. Denies any dysuria, hematuria, frequency. No hematemesis, melena, or hematochezia. Upon presentation to emergency room he was bradycardic with heart rate went to the 30s. Assessment and plan Generalized weakness Sinus bradycardia Seen and examined CLinically stable Still Afib with bradycardia in 30s No complaints NO dizziness Kidney function is slightly worse Hold Metolazone Potassium level is 5.9 Add Lokelma PO TID 10 mg BMP in am Cardiology was consult Hypertension: Controlled Diabetes type 2: Accu-Chek ACHS/insulin sliding scale/resume glipizide Obesity: Lifestyle modification Hyperlipidemia: Resume Lipitor Hypothyroidism: Resume Synthroid/TSH level in the morning Coronary disease status post angioplasties: Aspirin daily and Lipitor/not on anybeta-dunia due to bradycardia Obstructive sleep apnea DVT prophylaxis: Lovenox daily Documented By: Barry Cisneros MD 02/07/231104 Signed By: <Electronically signed by Barry Cisneros MD> 02/07/231107 [facility] Work Phone: 1(469) 255-800311-22-2023 History and physical note Author Barry Cisneros [facility] February 06, 2023 4:29pm Note Date/Time February 06, 2023 4:20pm [facility] [address] [place] [address] Hospitalist H&P Signed Patient: Sandra Potter MR#: [id number] : 1955 Acct:[id number] Age/Sex: 67 / M Adm Date: 3 Loc: ER Room: Type: [facility] ER Attending Dr: Copies to: MD Bobby Patel DO Matthew A Braniecki, ~ HPI DATE OF EXAMINATION: 02/06/23 CHIEF COMPLAINT: Generalized weakness HISTORY OF PRESENT ILLNESS: 67-year-old white male with past medical history of obesity, hypertension, hyperlipidemia, diabetes type 2, coronary artery disease status post angioplasties, history of ischemic cardiomyopathy, hypothyroidism, history of large B-cell lymphoma, obstructive sleep apnea presented emergency room with generalized weakness. He has been feeling well for the last couple weeks. Associated with dizziness. He describes as lightheadedness. Associated with right-sided chest pain which lasted for 1 minute today in the morning. Which resolved body aches gas. He denies having shortness of breath. No palpitation. Denies orthopnea and PND. He has been having worsening leg edema. He denies having any nausea or vomiting. No abdominal pain. Denies any dysuria, hematuria, frequency. No hematemesis, melena, or hematochezia. Upon presentation to emergency room he was bradycardic with heart rate went to the 30s. [facility] Medical History (Updated 02/06/23 @ 16:22 by Barry Cisneros MD) Amputation toe Atrial fibrillation Cardiomyopathy Chronic renal disease Diabetes mellitus Hx of intestinal obstruction Hyperlipemia Hypertension Hypothyroid Large B-cell lymphoma ZAYRA (obstructive sleep apnea) Presence of Watchman left atrial appendage closure device Surgical History H/O cardiac radiofrequency ablation H/O heart artery stent History of hernia surgery History of orthopedic surgery S/P gastric surgery Family History Mother Cardiovascular disease Diabetes Dementia Father Cardiovascular disease Diabetes Dementia Social History Smoking Status: Former smoker Tobacco Type: cigarettes Substance Use Type: None Meds Medications and Allergies Allergies diltiazem Adverse Reaction (Verified 02/06/23 12:18) Palpitations lisinopril Adverse Reaction (Verified 02/06/23 12:18) Swelling of Lip/Tongue/Throat morphine Adverse Reaction (Verified 02/06/23 12:18) Palpitations Home Medications albuterol sulfate 90 mcg/actuation aerosol inhaler 1 puff inhalation Q4-6H PRN Shortness Of Breath Or Wheezing 12/24/16 [History Confirmed 02/06/23] allopurinol 300 mg tablet 300 mg PO DAILY 12/24/16 [History Confirmed 02/06/23] bumetanide 2 mg tablet 2 mg PO QAM 12/24/16 [History Confirmed 02/06/23] magnesium oxide 400 mg (241.3 mg magnesium) tablet 500 mg PO BID 12/24/16 [History Confirmed 02/06/23] metolazone 2.5 mg tablet 5 mg PO DAILY 12/24/16 [History Confirmed 02/06/23] omeprazole 40 mg capsule,delayed release 40 mg PO BID 12/24/16 [History Confirmed 02/06/23] tramadol 50 mg tablet 100 mg PO QID PRN Pain 07/28/19 [History Confirmed 02/06/23] potassium chloride 20 mEq tablet,extended release 160 meq PO HS 10/11/20 [History Confirmed 02/06/23] aspirin 81 mg capsule 81 mg PO HS 09/20/21 [History Confirmed 02/06/23] cholecalciferol (vitamin D3) 100 mcg (4,000 unit) capsule 4,000 unit PO DAILY 09/20/21 [History Confirmed 02/06/23] atorvastatin 20 mg tablet 20 mg PO HS 04/03/22 [History Confirmed 02/06/23] glipizide 2.5 mg tablet, extended release 24 hr 2.5 mg PO BID 04/03/22 [History Confirmed 02/06/23] potassium chloride 20 mEq tablet,extended release 200 meq PO QAM 04/03/22 [History Confirmed 02/06/23] tizanidine 4 mg tablet 4 mg PO Q8H PRN Pain 04/03/22 [History Confirmed 02/06/23] gabapentin 600 mg tablet 1,200 mg PO BID #360 tabs 04/20/22 [Rx Confirmed 02/06/23] biotin 10,000 mcg disintegrating tablet 10,000 mcg PO DAILY 11/27/22 [History Confirmed 02/06/23] levothyroxine 25 mcg tablet (Synthroid) 25 mcg PO DAILY 02/06/23 [History Confirmed 02/06/23] sennosides 8.6 mg-docusate sodium 50 mg tablet 2 tab-cap PO QHS 02/06/23 [History Confirmed 02/06/23] spironolactone 25 mg tablet 25 mg PO DAILY 02/06/23 [History Confirmed 02/06/23] thiamine HCl (vitamin B1) 100 mg tablet (Vitamin B-1) 100 mg PO DAILY 02/06/23 [History Confirmed 02/06/23] Exam Physical Exam Vital Signs: Temp Pulse Resp BP Pulse Ox O2 Del Method 97 F L 34 L 16 165/87 H 97 Room Air 02/06/23 12:32 02/06/23 13:44 02/06/23 13:09 02/06/23 12:32 02/06/23 13:09 02/06/23 13:09 Narrative: General patient laying in bed in no acute distress alert awake oriented x3 HEENT PERRLA Neck supple no JVD no carotid bruit CVS S1-S2 regular rate and rhythm no murmur no gallop Chest clear to auscultation percussion Abdomen soft bowel sounds normoactive no rebound no guarding Extremities no stenosis no clubbing no edema Musculoskeletal exam normal no joint effusion Neurologic exam oriented x3 alert awake no focal left Psychiatry: Normal insight and judgment Skin: No rash no lesions Results Lab Results Labs: Laboratory Last Values Corrected WBC 5.6 X10E3/uL (4.1-10.5) 02/06/23 13:05 Uncorrected WBC Count 5.6 x10E3/uL (4.1-10.5) 02/06/23 13:05 RBC 4.62 X10E6/uL (3.90-5.60) 02/06/23 13:05 Hgb 13.0 g/dL (13.0-17.0) 02/06/23 13:05 Hct 39.3 % (38.8-50.0) 02/06/23 13:05 MCV 85.0 fl (83.5-101) 02/06/23 13:05 MCH 28.0 pg (27.5-35.2) 02/06/23 13:05 MCHC 33.0 g/dL (32.5-35.6) 02/06/23 13:05 RDW 16.0 % (12.0-14.8) H 02/06/23 13:05 Plt Count 228 x10E3/uL (150-450) 02/06/23 13:05 MPV 6.9 fl (6.6-10.1) 02/06/23 13:05 Neut % (Auto) 66.6 % (.) 02/06/23 13:05 Lymph % (Auto) 16.3 % (.) 02/06/23 13:05 Sanders % (Auto) 10.8 % (.) 02/06/23 13:05 Eos % (Auto) 5.4 % (.) 02/06/23 13:05 Baso % (Auto) 0.9 % (.) 02/06/23 13:05 Nucleat RBC Rel Count 0.1 /100 WBC (0-0.5) 02/06/23 13:05 Neut # (Auto) 3.7 x10E3/uL (1.8-7.7) 02/06/23 13:05 Lymph # (Auto) 0.9 x10E3/uL (1.00-4.8) L 02/06/23 13:05 Sanders # (Auto) 0.6 x10E3/uL (0.0-0.8) 02/06/23 13:05 Eos # (Auto) 0.3 x10E3/uL (0.0-0.45) 02/06/23 13:05 Baso # (Auto) 0.1 x10E3/uL (0.0-0.2) 02/06/23 13:05 Monocyte Dist Width 15.78 % (0.00-20.00) 02/06/23 13:05 PT 11.5 Seconds (9.0-12.9) 02/06/23 13:05 INR 1.0 02/06/23 13:05 APTT 31.1 Seconds (25.1-36.5) 02/06/23 13:05 Sample Site Venous 02/06/23 13:23 VBG pH 7.31 (7.32-7.43) L 02/06/23 13:23 VBG pCO2 49.0 mmHg (38.0-50.0) 02/06/23 13:23 VBG pO2 28.8 mmHg (35.0-45.0) L 02/06/23 13:23 VBG HCO3 24.0 mmol/L (23.0-29.0) 02/06/23 13:23 VBG Total CO2 25.5 mmol/L (24.0-29.0) 02/06/23 13:23 VBG O2 Saturation 51.4 % (73.0-76.0) L* 02/06/23 13:23 VBG O2 Content 4.4 mmol/L (6.6-9.7) L 02/06/23 13:23 VBG Base Excess -2.8 mmol/L (-3.0-3.0) 02/06/23 13:23 FiO2 Na % 02/06/23 13:23 Critical Value 02/06/23 13:23 PHA Creatinine Clear 73.09 02/06/23 13:05 Sodium 137 mmol/L (136-145) 02/06/23 13:05 Potassium 4.6 mmol/L (3.5-5.1) 02/06/23 13:05 Chloride 104 mmol/L (98-107) 02/06/23 13:05 Carbon Dioxide 28.3 mmol/L (21.0-31.0) 02/06/23 13:05 Anion Gap 9.3 mEq/L (6.0-15.0) 02/06/23 13:05 BUN 29 mg/dL (7-25) H 02/06/23 13:05 Creatinine 1.31 mg/dL (0.70-1.30) H 02/06/23 13:05 Est GFR (CKD-EPI) > 60.0 mL/Min 02/06/23 13:05 Glucose 164 mg/dL (70-100) H 02/06/23 13:05 POC Glucose 144 mg/dl 02/06/23 13:09 Calcium 11.3 mg/dL (8.6-10.3) H 02/06/23 13:05 Magnesium 1.6 mg/dL (1.9-2.7) L 02/06/23 13:05 Total Bilirubin 0.6 mg/dl (0.3-1.0) 02/06/23 13:05 AST 21 U/L (13-39) 02/06/23 13:05 ALT 16 U/L (7-52) 02/06/23 13:05 Alkaline Phosphatase 108 U/L (34-104) H 02/06/23 13:05 Ammonia 20 umol/L (11-35) 02/06/23 13:05 Total Creatine Kinase 107 U/L (30-223) 02/06/23 13:05 Troponin I High Sens 12.8 pg/mL (0.0-20.0) 02/06/23 13:05 B-Natriuretic Peptide 151.0 pg/mL (5-100) H 02/06/23 13:05 Total Protein 7.5 gm/dL (6.4-8.9) 02/06/23 13:05 Albumin 4.1 gm/dL (3.5-5.7) 02/06/23 13:05 Globulin 3.4 gm/dL 02/06/23 13:05 Albumin/Globulin Ratio 1.2 02/06/23 13:05 TSH 3rd Generation 4.68 uIU/mL (0.45-5.33) 02/06/23 13:05 Urine Color Colorless (Yellow) 02/06/23 12:56 Urine Appearance Clear (Clear) 02/06/23 12:56 Urine pH 5.5 (5.0-9.0) 02/06/23 12:56 Ur Specific [place] 1.010 (1.001-1.030) 02/06/23 12:56 Urine Protein Negative mg/dL (Negative) 02/06/23 12:56 Urine Glucose (UA) Normal mg/dL (Normal) 02/06/23 12:56 Urine Ketones Negative (Negative) 02/06/23 12:56 Urine Occult Blood Negative (Negative) 02/06/23 12:56 Urine Nitrite Negative (Negative) 02/06/23 12:56 Urine Bilirubin Negative (Negative) 02/06/23 12:56 Urine Urobilinogen Normal mg/dL (Normal) 02/06/23 12:56 Ur Leukocyte Esterase Negative (Negative) 02/06/23 12:56 SARS-CoV-2 Rap RNA(RT-PCR) Negative (Negative) 02/06/23 13:11 Microbiology Results Micro: Microbiology - Results from entire visit 02/06/23 13:11 Nasopharyngeal SARS-CoV-2, Influenza & RSV (PCR) - Final ABG Interpretation ABG results: 02/06/23 13:23 VBG pH 7.31 L VBG pCO2 49.0 VBG pO2 28.8 L VBG HCO3 24.0 VBG Total CO2 25.5 VBG O2 Saturation 51.4 L* VBG Base Excess -2.8 Assessment & Plan Assessment/Plan (1) Generalized weakness: (2) Bradycardia: (3) HTN (hypertension): (4) CKD (chronic kidney disease) stage 3, GFR 30-59 ml/min: (5) Obesity (BMI 35.0-39.9 without comorbidity): (6) Diabetes 1.5, managed as type 2: (7) CHF (congestive heart failure), NYHA class I: (8) A-fib: Plan 67-year-old white male with past medical history of obesity, hypertension, hyperlipidemia, diabetes type 2, coronary artery disease status post angioplasties, history of ischemic cardiomyopathy, hypothyroidism, history of large B-cell lymphoma, obstructive sleep apnea presented emergency room with generalized weakness. He has been feeling well for the last couple weeks. Associated with dizziness. He describes as lightheadedness. Associated with right-sided chest pain which lasted for 1 minute today in the morning. Which resolved body aches gas. He denies having shortness of breath. No palpitation. Denies orthopnea and PND. He has been having worsening leg edema. He denies having any nausea or vomiting. No abdominal pain. Denies any dysuria, hematuria, frequency. No hematemesis, melena, or hematochezia. Upon presentation to emergency room he was bradycardic with heart rate went to the 30s. Assessment and plan Generalized weakness Sinus bradycardia Observation admit for 23-hour Cardiac telemetry Serial EKG Troponin x 3 He is not on any beta-dunia or calcium channel dunia Replace magnesium with 2 g IV BMP in the morning Mag level in the morning PT OT evaluation Hypertension: Controlled Diabetes type 2: Accu-Chek ACHS/insulin sliding scale/resume glipizide Obesity: Lifestyle modification Hyperlipidemia: Resume Lipitor Hypothyroidism: Resume Synthroid/TSH level in the morning Coronary disease status post angioplasties: Aspirin daily and Lipitor/not on anybeta-dunia due to bradycardia Obstructive sleep apnea DVT prophylaxis: Lovenox daily IP vs OBS Justification Based on differential dx, clinical care plan, and risk of adverse events, if untreated, in my clinical judgement this patient requires an acute care setting as: OBSERVATION because of an expectation of an under 2 midnight stay. Estimated length of stay (# of days): 1 Documented By: Barry Cisneros MD 02/06/231617 Signed By: <Electronically signed by Barry Cisneros MD> 02/06/23 2196 [facility] Work Phone: 1(346) 442-872311-22-2023 History and physical note Author Barry Cisneros [facility] February 06, 2023 4:29pm Note Date/Time February 06, 2023 4:20pm [facility] [address] [place] [address] Hospitalist H&P Signed Patient: Sandra Potter MR#: [id number] : 1955 Acct:[id number] Age/Sex: 67 / M Adm Date: 3 Loc: ER Room: Type: [facility] ER Attending Dr: Copies to: MD Bobby Patel DO Matthew A Braniecki, ~ HPI DATE OF EXAMINATION: 02/06/23 CHIEF COMPLAINT: Generalized weakness HISTORY OF PRESENT ILLNESS: 67-year-old white male with past medical history of obesity, hypertension, hyperlipidemia, diabetes type 2, coronary artery disease status post angioplasties, history of ischemic cardiomyopathy, hypothyroidism, history of large B-cell lymphoma, obstructive sleep apnea presented emergency room with generalized weakness. He has been feeling well for the last couple weeks. Associated with dizziness. He describes as lightheadedness. Associated with right-sided chest pain which lasted for 1 minute today in the morning. Which resolved body aches gas. He denies having shortness of breath. No palpitation. Denies orthopnea and PND. He has been having worsening leg edema. He denies having any nausea or vomiting. No abdominal pain. Denies any dysuria, hematuria, frequency. No hematemesis, melena, or hematochezia. Upon presentation to emergency room he was bradycardic with heart rate went to the 30s. [facility] Medical History (Updated 02/06/23 @ 16:22 by Barry Cisneros MD) Amputation toe Atrial fibrillation Cardiomyopathy Chronic renal disease Diabetes mellitus Hx of intestinal obstruction Hyperlipemia Hypertension Hypothyroid Large B-cell lymphoma ZAYRA (obstructive sleep apnea) Presence of Watchman left atrial appendage closure device Surgical History H/O cardiac radiofrequency ablation H/O heart artery stent History of hernia surgery History of orthopedic surgery S/P gastric surgery Family History Mother Cardiovascular disease Diabetes Dementia Father Cardiovascular disease Diabetes Dementia Social History Smoking Status: Former smoker Tobacco Type: cigarettes Substance Use Type: None Meds Medications and Allergies Allergies diltiazem Adverse Reaction (Verified 02/06/23 12:18) Palpitations lisinopril Adverse Reaction (Verified 02/06/23 12:18) Swelling of Lip/Tongue/Throat morphine Adverse Reaction (Verified 02/06/23 12:18) Palpitations Home Medications albuterol sulfate 90 mcg/actuation aerosol inhaler 1 puff inhalation Q4-6H PRN Shortness Of Breath Or Wheezing 12/24/16 [History Confirmed 02/06/23] allopurinol 300 mg tablet 300 mg PO DAILY 12/24/16 [History Confirmed 02/06/23] bumetanide 2 mg tablet 2 mg PO QAM 12/24/16 [History Confirmed 02/06/23] magnesium oxide 400 mg (241.3 mg magnesium) tablet 500 mg PO BID 12/24/16 [History Confirmed 02/06/23] metolazone 2.5 mg tablet 5 mg PO DAILY 12/24/16 [History Confirmed 02/06/23] omeprazole 40 mg capsule,delayed release 40 mg PO BID 12/24/16 [History Confirmed 02/06/23] tramadol 50 mg tablet 100 mg PO QID PRN Pain 07/28/19 [History Confirmed 02/06/23] potassium chloride 20 mEq tablet,extended release 160 meq PO HS 10/11/20 [History Confirmed 02/06/23] aspirin 81 mg capsule 81 mg PO HS 09/20/21 [History Confirmed 02/06/23] cholecalciferol (vitamin D3) 100 mcg (4,000 unit) capsule 4,000 unit PO DAILY 09/20/21 [History Confirmed 02/06/23] atorvastatin 20 mg tablet 20 mg PO HS 04/03/22 [History Confirmed 02/06/23] glipizide 2.5 mg tablet, extended release 24 hr 2.5 mg PO BID 04/03/22 [History Confirmed 02/06/23] potassium chloride 20 mEq tablet,extended release 200 meq PO QAM 04/03/22 [History Confirmed 02/06/23] tizanidine 4 mg tablet 4 mg PO Q8H PRN Pain 04/03/22 [History Confirmed 02/06/23] gabapentin 600 mg tablet 1,200 mg PO BID #360 tabs 04/20/22 [Rx Confirmed 02/06/23] biotin 10,000 mcg disintegrating tablet 10,000 mcg PO DAILY 11/27/22 [History Confirmed 02/06/23] levothyroxine 25 mcg tablet (Synthroid) 25 mcg PO DAILY 02/06/23 [History Confirmed 02/06/23] sennosides 8.6 mg-docusate sodium 50 mg tablet 2 tab-cap PO QHS 02/06/23 [History Confirmed 02/06/23] spironolactone 25 mg tablet 25 mg PO DAILY 02/06/23 [History Confirmed 02/06/23] thiamine HCl (vitamin B1) 100 mg tablet (Vitamin B-1) 100 mg PO DAILY 02/06/23 [History Confirmed 02/06/23] Exam Physical Exam Vital Signs: Temp Pulse Resp BP Pulse Ox O2 Del Method 97 F L 34 L 16 165/87 H 97 Room Air 02/06/23 12:32 02/06/23 13:44 02/06/23 13:09 02/06/23 12:32 02/06/23 13:09 02/06/23 13:09 Narrative: General patient laying in bed in no acute distress alert awake oriented x3 HEENT PERRLA Neck supple no JVD no carotid bruit CVS S1-S2 regular rate and rhythm no murmur no gallop Chest clear to auscultation percussion Abdomen soft bowel sounds normoactive no rebound no guarding Extremities no stenosis no clubbing no edema Musculoskeletal exam normal no joint effusion Neurologic exam oriented x3 alert awake no focal left Psychiatry: Normal insight and judgment Skin: No rash no lesions Results Lab Results Labs: Laboratory Last Values Corrected WBC 5.6 X10E3/uL (4.1-10.5) 02/06/23 13:05 Uncorrected WBC Count 5.6 x10E3/uL (4.1-10.5) 02/06/23 13:05 RBC 4.62 X10E6/uL (3.90-5.60) 02/06/23 13:05 Hgb 13.0 g/dL (13.0-17.0) 02/06/23 13:05 Hct 39.3 % (38.8-50.0) 02/06/23 13:05 MCV 85.0 fl (83.5-101) 02/06/23 13:05 MCH 28.0 pg (27.5-35.2) 02/06/23 13:05 MCHC 33.0 g/dL (32.5-35.6) 02/06/23 13:05 RDW 16.0 % (12.0-14.8) H 02/06/23 13:05 Plt Count 228 x10E3/uL (150-450) 02/06/23 13:05 MPV 6.9 fl (6.6-10.1) 02/06/23 13:05 Neut % (Auto) 66.6 % (.) 02/06/23 13:05 Lymph % (Auto) 16.3 % (.) 02/06/23 13:05 Sanders % (Auto) 10.8 % (.) 02/06/23 13:05 Eos % (Auto) 5.4 % (.) 02/06/23 13:05 Baso % (Auto) 0.9 % (.) 02/06/23 13:05 Nucleat RBC Rel Count 0.1 /100 WBC (0-0.5) 02/06/23 13:05 Neut # (Auto) 3.7 x10E3/uL (1.8-7.7) 02/06/23 13:05 Lymph # (Auto) 0.9 x10E3/uL (1.00-4.8) L 02/06/23 13:05 Sanders # (Auto) 0.6 x10E3/uL (0.0-0.8) 02/06/23 13:05 Eos # (Auto) 0.3 x10E3/uL (0.0-0.45) 02/06/23 13:05 Baso # (Auto) 0.1 x10E3/uL (0.0-0.2) 02/06/23 13:05 Monocyte Dist Width 15.78 % (0.00-20.00) 02/06/23 13:05 PT 11.5 Seconds (9.0-12.9) 02/06/23 13:05 INR 1.0 02/06/23 13:05 APTT 31.1 Seconds (25.1-36.5) 02/06/23 13:05 Sample Site Venous 02/06/23 13:23 VBG pH 7.31 (7.32-7.43) L 02/06/23 13:23 VBG pCO2 49.0 mmHg (38.0-50.0) 02/06/23 13:23 VBG pO2 28.8 mmHg (35.0-45.0) L 02/06/23 13:23 VBG HCO3 24.0 mmol/L (23.0-29.0) 02/06/23 13:23 VBG Total CO2 25.5 mmol/L (24.0-29.0) 02/06/23 13:23 VBG O2 Saturation 51.4 % (73.0-76.0) L* 02/06/23 13:23 VBG O2 Content 4.4 mmol/L (6.6-9.7) L 02/06/23 13:23 VBG Base Excess -2.8 mmol/L (-3.0-3.0) 02/06/23 13:23 FiO2 Na % 02/06/23 13:23 Critical Value 02/06/23 13:23 PHA Creatinine Clear 73.09 02/06/23 13:05 Sodium 137 mmol/L (136-145) 02/06/23 13:05 Potassium 4.6 mmol/L (3.5-5.1) 02/06/23 13:05 Chloride 104 mmol/L (98-107) 02/06/23 13:05 Carbon Dioxide 28.3 mmol/L (21.0-31.0) 02/06/23 13:05 Anion Gap 9.3 mEq/L (6.0-15.0) 02/06/23 13:05 BUN 29 mg/dL (7-25) H 02/06/23 13:05 Creatinine 1.31 mg/dL (0.70-1.30) H 02/06/23 13:05 Est GFR (CKD-EPI) > 60.0 mL/Min 02/06/23 13:05 Glucose 164 mg/dL (70-100) H 02/06/23 13:05 POC Glucose 144 mg/dl 02/06/23 13:09 Calcium 11.3 mg/dL (8.6-10.3) H 02/06/23 13:05 Magnesium 1.6 mg/dL (1.9-2.7) L 02/06/23 13:05 Total Bilirubin 0.6 mg/dl (0.3-1.0) 02/06/23 13:05 AST 21 U/L (13-39) 02/06/23 13:05 ALT 16 U/L (7-52) 02/06/23 13:05 Alkaline Phosphatase 108 U/L (34-104) H 02/06/23 13:05 Ammonia 20 umol/L (11-35) 02/06/23 13:05 Total Creatine Kinase 107 U/L (30-223) 02/06/23 13:05 Troponin I High Sens 12.8 pg/mL (0.0-20.0) 02/06/23 13:05 B-Natriuretic Peptide 151.0 pg/mL (5-100) H 02/06/23 13:05 Total Protein 7.5 gm/dL (6.4-8.9) 02/06/23 13:05 Albumin 4.1 gm/dL (3.5-5.7) 02/06/23 13:05 Globulin 3.4 gm/dL 02/06/23 13:05 Albumin/Globulin Ratio 1.2 02/06/23 13:05 TSH 3rd Generation 4.68 uIU/mL (0.45-5.33) 02/06/23 13:05 Urine Color Colorless (Yellow) 02/06/23 12:56 Urine Appearance Clear (Clear) 02/06/23 12:56 Urine pH 5.5 (5.0-9.0) 02/06/23 12:56 Ur Specific [place] 1.010 (1.001-1.030) 02/06/23 12:56 Urine Protein Negative mg/dL (Negative) 02/06/23 12:56 Urine Glucose (UA) Normal mg/dL (Normal) 02/06/23 12:56 Urine Ketones Negative (Negative) 02/06/23 12:56 Urine Occult Blood Negative (Negative) 02/06/23 12:56 Urine Nitrite Negative (Negative) 02/06/23 12:56 Urine Bilirubin Negative (Negative) 02/06/23 12:56 Urine Urobilinogen Normal mg/dL (Normal) 02/06/23 12:56 Ur Leukocyte Esterase Negative (Negative) 02/06/23 12:56 SARS-CoV-2 Rap RNA(RT-PCR) Negative (Negative) 02/06/23 13:11 Microbiology Results Micro: Microbiology - Results from entire visit 02/06/23 13:11 Nasopharyngeal SARS-CoV-2, Influenza & RSV (PCR) - Final ABG Interpretation ABG results: 02/06/23 13:23 VBG pH 7.31 L VBG pCO2 49.0 VBG pO2 28.8 L VBG HCO3 24.0 VBG Total CO2 25.5 VBG O2 Saturation 51.4 L* VBG Base Excess -2.8 Assessment & Plan Assessment/Plan (1) Generalized weakness: (2) Bradycardia: (3) HTN (hypertension): (4) CKD (chronic kidney disease) stage 3, GFR 30-59 ml/min: (5) Obesity (BMI 35.0-39.9 without comorbidity): (6) Diabetes 1.5, managed as type 2: (7) CHF (congestive heart failure), NYHA class I: (8) A-fib: Plan 67-year-old white male with past medical history of obesity, hypertension, hyperlipidemia, diabetes type 2, coronary artery disease status post angioplasties, history of ischemic cardiomyopathy, hypothyroidism, history of large B-cell lymphoma, obstructive sleep apnea presented emergency room with generalized weakness. He has been feeling well for the last couple weeks. Associated with dizziness. He describes as lightheadedness. Associated with right-sided chest pain which lasted for 1 minute today in the morning. Which resolved body aches gas. He denies having shortness of breath. No palpitation. Denies orthopnea and PND. He has been having worsening leg edema. He denies having any nausea or vomiting. No abdominal pain. Denies any dysuria, hematuria, frequency. No hematemesis, melena, or hematochezia. Upon presentation to emergency room he was bradycardic with heart rate went to the 30s. Assessment and plan Generalized weakness Sinus bradycardia Observation admit for 23-hour Cardiac telemetry Serial EKG Troponin x 3 He is not on any beta-dunia or calcium channel dunia Replace magnesium with 2 g IV BMP in the morning Mag level in the morning PT OT evaluation Hypertension: Controlled Diabetes type 2: Accu-Chek ACHS/insulin sliding scale/resume glipizide Obesity: Lifestyle modification Hyperlipidemia: Resume Lipitor Hypothyroidism: Resume Synthroid/TSH level in the morning Coronary disease status post angioplasties: Aspirin daily and Lipitor/not on anybeta-dunia due to bradycardia Obstructive sleep apnea DVT prophylaxis: Lovenox daily IP vs OBS Justification Based on differential dx, clinical care plan, and risk of adverse events, if untreated, in my clinical judgement this patient requires an acute care setting as: OBSERVATION because of an expectation of an under 2 midnight stay. Estimated length of stay (# of days): 1 Documented By: Barry Cisneros MD 02/06/23 1618 Signed By: <Electronically signed by Barry Cisneros MD> 02/06/23 1626 [facility] Work Phone: 1(955) 361-356109-27-2023 Evaluation note* Encounter Date Diagnosis Assessment Notes Treatment Notes Treatment Clinical Notes Nov, Chronic venous insufficiency (ICD-10 - I87.2) [facility] Other 08-31-2023 Note [id number] 10-11-2022 Evaluation note* Encounter Date Diagnosis Assessment Notes Treatment Notes Treatment Clinical Notes Sep, Type 2 diabetes mellitus with other circulatory complication, without long-term current use of insulin (ICD-10 - E11.59) To goal. Prior to your visit today we reviewed your chart and outlined the testing and treatment needed for your care. We discussed possible complications of diabetes including risk of heart disease, stroke, and kidney disease. Your goal is to keep uou HgA1C below 7 (preferably <6.5) and your blood pressure less than 130/85 (and preferably < 120/80) and mataining a healthy weight with a BMI less than 26. We are working together to acheive these goals with the following plan; healthier diet, understanding your medications, and your compliance. Barriers to these goals have been discussed. You have been given educational handouts. Sep, Lesion of tongue (ICD-10 - K14.8) Lesion on tongue that has been present for over a month now and is not healing. Referral placed. Sep, Amputated toe, left (ICD-10 - S98.132A) Pt is here for a face to face visit for diabetic shoes. Assessment noted under diabetic foot exam. Order faxed. Sep, Chronic venous insufficiency (ICD-10 - I87.2) Sep, Peripheral polyneuropathy (ICD-10 - G62.9) Following with Dr. 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 Stable on medication. Sep, Cervical back pain with evidence of disc disease (ICD-10 - M50.90) He is currently under the care of Dr. Sandoval for pain management. He is also following with Rheumatology. He is also now following rufina Ding-- neurosurgery. Sep, Osteoarthritis of spine with radiculopathy, cervical region (ICD-10 - M47.22) Sep, Memory loss (ICD-10 - R41.3) reviewed MRi results with pt, has follow-up with Dr Soto on October 23. Sep, Other congestive heart failure (ICD-10 - I50.9) Notes that he does see cardiology. COntinue on the Bumex. Discussed definition of heart failure as well as etiology, treatments, and medications relating to decreasing heart failure exacerbations in the future. Encouraged patient to weigh self every morning before breakfast and inform start up specialist if weight increases more than 2 pounds in a day or 5 pounds in a week. Patient is also to inform provider if increase in shortness of breath, increased swelling in feet ankles or legs or lightheaded or dizziness occurs. Patient is to get to the nearest emergency room if there is increased shortness of breath that does not go away while sitting still, fast heartbeat that does not slow down, any chest pain or if fainting occurs. Patient will continue to follow with [employer] specialist. Specialty notes reviewed as received. Sep, Shortness of breath (ICD-10 - R06.02) Sep, Restless legs (ICD-10 - G25.81) Increased dose of potassium per cardiology, improved. Sep, Persistent atrial fibrillation (ICD-10 - I48.19) Atrial fibrillation is currently stable, Unaware of palpitations, or shortness of breath. No chest pain Sep, Acquired hypothyroidism (ICD-10 - E03.9) Asymptomatic at this time, Denies any unexplained weight change, hair loss or fatigue. Patient to continue with above medication and we will continue to monitor through routine blood work Sep, Stage 3 chronic kidney disease, unspecified whether stage 3a or 3b CKD (ICD-10 - N18.30) Cotninue to monitor Sep, Simple chronic bronchitis (ICD-10 - J41.0) Stable COPD symptoms remain unchanged at this time. No recent flare up, controlled on current medication. Patient should continue with the above and we will continue to monitor. Pay attention to any changes in shortness of breath such as patterns or other associated symptoms Prior to your visit today we reviewed your chart and outlined the testing and treatment needed for your care. We discussed the possible complications of COPD , including increased risk for acute exacerbation and respiratory failure. Our goal is to keep your COPD under control to avoid exacerbation and hospitalizations. maintain a healthy weight with a BMI less than 26. We are working together to achieve these goals with the following plan; healthier diet, increased activity and exercise, understanding your medications and your compliance, Sep, GERD (gastroesophageal reflux disease) (ICD-10 - K21.9) Reflux symptoms remain unchanged. Discussed the importance of meal content. They should avoid overeating and eating meals late in the evening. Take medication as directed and we will continue to monitor. Sep, Sleep disturbance (ICD-10 - G47.9) Discussed options for treatment, discussed to trial Melatonin. Call if no improvement and will trial on Trazadone. [facility] Other 07-14-2023 Evaluation note* Encounter Date Diagnosis Assessment Notes Treatment Notes Treatment Clinical Notes Sep, Low serum potassium level (ICD-10 - E87.6) [facility] Other 06-28-2023 Evaluation note* Encounter Date Diagnosis Assessment Notes Treatment Notes Treatment Clinical Notes Aug, Amputated toe, left (ICD-10 - S98.132A) Pt is here for a face to face visit for diabetic shoes. Assessment noted under diabetic foot exam. Order faxed. Aug, Type 2 diabetes mellitus with other circulatory complication, without long-term current use of insulin (ICD-10 - E11.59) Aug, Chronic venous insufficiency (ICD-10 - I87.2) Aug, Peripheral polyneuropathy (ICD-10 - G62.9) Aug, Situational anxiety (ICD-10 - F41.8) Needs prior to MRI due to anxiety and claustrophobia. [facility] Other 06-26-2023 Evaluation note* Encounter Date Diagnosis Assessment Notes Treatment Notes Treatment Clinical Notes Aug, Situational anxiety (ICD-10 - F41.8) [employer] Other 06-20-2023 Evaluation note* Encounter Date Diagnosis Assessment Notes Treatment Notes Treatment Clinical Notes Aug, Cervical spinal stenosis (ICD-10 - M48.02) Aug, Spondylolisthesis, cervical region (ICD-10 - M43.12) I independently reviewed the plain x-ray of the cervical spine and the MRI of the cervical spine and the plain x-ray of the lumbar spine. The lumbar spine has diffuse spondylitic changes and some angulation at L3-4. We do not have a lateral bending. The patient has a a lot of neck pain. He has pain running from the lateral neck to the top of the shoulder and a little bit onto the deltoid. He has normal strength. On plain x-ray he has 2 to 3 mm of anterior subluxation and on extension has another 2 mm of retrolisthesis. This is over 4 mm of movement of the neck with flexion and extension which in my mind giving a mild canal narrowing becomes much more severe with the movement. This patient is in need of an anterior cervical fusion C3-4 with allograft and anterior plate.He is at high risk of injury with this kind of instability. Physical therapy will be of no benefit in helping instability of the neck. I am planning for an anterior cervical fusion C3-4 with anterior plate the indication operation postop course risk benefits of surgery and complications to include infection hardware failure pain spinal fluid leak paralysis swallowing difficulties and hoarseness were discussed the family both and understand agree and would like to proceed the has some memory issues and the provides a great deal of the history during this visit.This patient also has chronic narcotic use he takes 8 tramadol a day this could affect postoperative pain medication usage and overall amount of medication usage after surgery. This was discussed with the family in detail I will gladly take care of immediate pain management for long-term pain management will need to be dealt with with another physician all understand and agree. Aug, Chronic narcotic use (ICD-10 - F11.90) Aug, Spondylosis without myelopathy or radiculopathy, lumbar region (ICD-10 - M47.816) [facility] Other 06-13-2023 Evaluation note* Encounter Date Diagnosis Assessment Notes Treatment Notes Treatment Clinical Notes Aug, Cervical back pain with evidence of disc disease (ICD-10 - M50.90) He is currently under the care of Dr. Sandoval for pain management. He is also following with Rheumatology. He would like a another opinion for treatment of his neck pain as the treatment completed so far by Dr. Sandoval has not helped to manage his pain and this is now affecting his activities of daily living. 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 He is agreeable. Imaging ordered. Will call with resutls. He would also like a referral back to Neurology as he has seen Brittany Lewis in the past. Aug, Aphasia (ICD-10 - R47.01) Aug, Other congestive heart failure (ICD-10 - I50.9) Notes that he does see cardiology and has an appt next week, notes that his bilateral lower extremities have been swollen for the last 2 months. He is currently taking Bumex and Metolazone. Will get a chest x-ray to evaluate lung status. WIll call with results and further recommendations Aug, Shortness of breath (ICD-10 - R06.02) Aug, Restless legs (ICD-10 - G25.81) Will obtain labs and Will call with resutls and further recommendations. [facility]* Encounter Date Diagnosis Assessment Notes Treatment Notes Treatment Clinical Notes Jun, Cervical back pain with evidence of disc disease (ICD-10 - M50.90) [employer] Other 03-30-2023 Evaluation note* Encounter Date Diagnosis Assessment Notes Treatment Notes Treatment Clinical Notes May, Cervical spondylosis without myelopathy (ICD-10 - M47.812) Patients primary complaint today is cervical pain, most bothersome on the left side. Imaging results show evidence of multi-level disc bulge however this does not appear consistent with his complaints of pain. Upon exam, patient shows notable pain consistent with degenerative changes of the cervical spine. Given he was unable to adequately assess the most recent procedure, he would be reasonable candidate for repeat diagnostic left cervical facet medial branch nerve blocks which we will proceed with. It was further explained should this provide significant short term relief we will proceed with a subsequent radiofrequency ablation. Risks and benefits of procedure explained to patient; patient verbalizes understanding. Anatomy of spine discussed in detail with patient in regard to patients condition. 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 Edited and approved by Dr. Lavon Sandoval MD. [employer] Other 03-02-2023 Evaluation note* Encounter Date Diagnosis Assessment Notes Treatment Notes Treatment Clinical Notes May, Cervical spondylosis without myelopathy (ICD-10 - M47.812) Patients primary complaint today is cervical pain, most bothersome on the left side. Recent imaging results show evidence of multi-level disc bulge however this does not appear consistent with his complaints of pain. Upon exam, patient shows notable pain consistent with degenerative changes of the cervical spine. Patient is a reasonable candidate for repeat diagnostic bilateral cervical facet medial branch nerve blocks which we will proceed with. It was further explained should this provide significant short term relief we will proceed with a subsequent radiofrequency ablation. Risks and benefits of procedure explained to patient; patient verbalizes understanding. Anatomy of spine discussed in detail with patient in regard to patients condition. 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 Edited and approved by Dr. Lavon Sandoval MD. [employer] Other 02-09-2023 Evaluation note* Encounter Date Diagnosis Assessment Notes Treatment Notes Treatment Clinical Notes Apr, Cervical spondylosis without myelopathy (ICD-10 - M47.812) Patients primary complaint today is cervical pain, most bothersome on the left side. Recent imaging results show evidence of multi-level disc bulge however this does not appear consistent with his complaints of pain. Upon exam, patient shows notable pain consistent with degenerative changes of the cervical spine. We discussed the possible benefit of treatment of the facet region for neck pain. Patient is a reasonable candidate for diagnostic bilateral cervical facet medial branch nerve blocks which we will proceed with. It was further explained should this provide significant short term relief we will proceed with a repeat block and subsequent radiofrequency ablation. Risks and benefits of procedure explained to patient; patient verbalizes understanding. Anatomy of spine discussed in detail with patient in regards to patients condition. 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 I will order an updated xray of his lumbar spine for further evaluation. We can consider future treatment to the area pending the results. Anatomy of spine discussed in detail with patient in regards to patients condition. Apr, Other chronic pain (ICD-10 - G89.29) Apr, Other Above note writ ten by Sunday Melara MA, Grants Administrator. Edited and approved by Dr. Lavon Sandoval MD. Medical decision making shows a new problem to me with further workup planned or suggested with the potential for extensive treatment options that were considered with the most applicable given this patient's situation as noted above. Treatment options considered include a combination of physical therapy approaches, pharmacologic management, and interventional procedures. Those most applicable to the patient were discussed at this time. Risk of complications and/or morbidity and mortality is high given that acute and chronic pain poses a threat to life and bodily function if undertreated, poorly treated or with failure to maintain adequate treatment and timely followup. Given the serious and fluctuating nature of pain with extensive consideration for whenever pain changes, there always remains the possibility of prolonged functional impairment requiring constant patient reassessment and high-level medical decision making. The amount and complexity of data reviewed is high given that patient labs, radiology reports, and other test were obtained, reviewed and summarized as applicable from the physician portal and/or outside medical records. Pertinent positive and negative findings were considered in medical decision-making. [facility] Other 02-03-2023 Evaluation note* Encounter Date Diagnosis Assessment Notes Treatment Notes Treatment Clinical Notes Apr, Type 2 diabetes mellitus with other circulatory complication, without long-term current use of insulin (ICD-10 - E11.59) [employer] Other 01-16-2023 Evaluation note* Encounter Date Diagnosis Assessment Notes Treatment Notes Treatment Clinical Notes Mar, Medicare annual wellness visit, subsequent (ICD-10 - Z00.00) Personalized health advice was given to the beneficiary with a referral, if appropriate, to health education of preventative counseling services or programs aimed at reducing identified risk factors and improving self-management or community-based lifestyle interventions to reduce health risks and promote self-management and wellness, including weight loss, physical activity, smoking cessation, fall prevention and nutrition. A written plan for screenings discussed, including colonoscopy, mammography, flu vaccination, other vaccinations if at risk, routine lab studies, eye exams, glaucoma screening, skin checks, risk factors for medical problems discussed, including BP control, obesity, and need for consistent exercise. Advanced care planning reviewed. Counseling was provided here today - specifically in regard to any positively answered questions as noted above. Mar, Type 2 diabetes mellitus with other circulatory complication, without long-term current use of insulin (ICD-10 - E11.59) To goal. Prior to your visit today we reviewed your chart and outlined the testing and treatment needed for your care. We discussed possible complications of diabetes including risk of heart disease, stroke, and kidney disease. Your goal is to keep uou HgA1C below 7 (preferably <6.5) and your blood pressure less than 130/85 (and preferably < 120/80) and mataining a healthy weight with a BMI less than 26. We are working together to acheive these goals with the following plan; healthier diet, understanding your medications, and your compliance. Barriers to these goals have been discussed. You have been given educational handouts. Mar, Acquired hypothyroidism (ICD-10 - E03.9) Asymptomatic at this time, Denies any unexplained weight change, hair loss or fatigue. Patient to continue with above medication and we will continue to monitor through routine blood work Mar, Other cardiomyopathy (ICD-10 - I42.8) Follows with Cardiology every 6 months to a year. Mar, Other congestive heart failure (ICD-10 - I50.9) Follows with Cardiology every 6 months to a year. Mar, Non-pressure chronic ulcer of other part of left foot with unspecified severity (ICD-10 - L97.529) Continues to follow with Dr. Begum for his left great toe and did have this amputated. Mar, Simple chronic bronchitis (ICD-10 - J41.0) Stable. COPD symptoms remain unchanged at this time. No recent flare up, controlled on current medication. Patient should continue with the above and we will continue to monitor. Pay attention to any changes in shortness of breath such as patterns or other associated symptoms Prior to your visit today we reviewed your chart and outlined the testing and treatment needed for your care. We discussed the possible complications of COPD , including increased risk for acute exacerbation and respiratory failure. Our goal is to keep your COPD under control to avoid exacerbation and hospitalizations. maintain a healthy weight with a BMI less than 26. We are working together to achieve these goals with the following plan; healthier diet, increased activity and exercise, understanding your medications and your compliance, Mar, Persistent atrial fibrillation (ICD-10 - I48.19) Follows with Cardoiology every 6 months to a year. Mar, Chronic venous insufficiency (ICD-10 - I87.2) Notes that Dr. Thomas has him on Gabapentin for his neuropathy from chemo has been recently taken off the Lyrica and notes a worsening in symptoms. Mar, Osteoarthritis of spine with radiculopathy, cervical region (ICD-10 - M47.22) Discussed options with patient regarding treatment for continued pain and numbness and tingling down the arm. Discussed with him referral to Dr. Ding or pain management for further evaluation from the MRI and for further treatment options. Pt states that he will think about and call the office where he would like the referral. Mar, GERD (gastroesophageal reflux disease) (ICD-10 - K21.9) Reflux symptoms remain unchanged. Discussed the importance of meal content. They should avoid overeating and eating meals late in the evening. Take medication as directed and we will continue to monitor. 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 [facility] [employer] Other 12-19-2022 Evaluation note* Encounter Date Diagnosis Assessment Notes Treatment Notes Treatment Clinical Notes Feb, Acquired hypothyroidism (ICD-10 - E03.9) [employer] Other 10-17-2022 Evaluation note* Encounter Date Diagnosis Assessment Notes Treatment Notes Treatment Clinical Notes Dec, Claustrophobia (ICD-10 - F40.240) [facility] [employer] Other 10-06-2022 Progress note Author Sima Wagner [facility] December 21, 2021 9:07am Note Date/Time December 21, 2021 9: 07am [facility] [address] [place] [address] Wound Center Provider Note Signed Patient: Sandra Potter MR#: [id number] : 1955 Acct:[id number] Age/Sex: 66 / M Copies to: Pete Begum DPM, MS, CWS Geeta Dumont APRN, MARINE FIRER Sima Wagner APRN~ HPI Date of Visit Date of Visit: Date of Service: 12/21/2021 Time of Service: 08:58 Narrative HPI: 12/21/21 Adenike is a 66-year-old male presenting to [facility] wound care program [facility] initial visit for evaluation and treatment of a left second toe ulceration. He tells me that he is here today for a second opinion because he saw Dr. Lazaro Saturday and was scheduled for surgery on Saturday but then was hesitant to havethe surgery. After the visit today I did give him my opinion based on many different factors such as proper offloading as well as his concern with healing times- he doesn't want to be off of his foot for the next 6 weeks he says but I told him that he is ultimately delaying his own care and healing time by not moving forward with the procedure because he will still have the postoperative healing time in addition to the time that he spends trying to heal this ulcer- Zander feel that him proceeding forward with the amputation of this left second toe would be in his best benefit. He says that he will call Dr. Begum's office anddiscuss this with him and see if he is still willing to see him and perform the amputation for him. I did decide to start topical antimicrobials such as Vashe Cleanser as well as Iodoflex dressings. We will not reappoint at this time because again I feel that he should proceed with the amputation because he is telling me that on Saturday Dr. Begum was able to probe to bone in this ulceratedarea and there was an x-ray that was somewhat inconclusive about osteomyelitis but yet concerning for it and if it is a bone infection then he should move on this rather than letting the infection spread and possibly risk losing more of the toe or even the foot- this was discussed with him. 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: Personal vehicle Lives with:: Spouse Appetite Description: Within Normal Limits Who helps w/ dressing change?: Self Smoking Status: Former smoker [facility] Medical History (Updated 12/21/21 @ 09:06 by Sima Wagner APRN) Diabetes mellitus Hx of intestinal obstruction Hyperlipemia Hypertension Hypothyroid Surgical History H/O heart artery stent History of hernia surgery History of orthopedic surgery S/P gastric surgery Social History Smoking Status: Former smoker Tobacco Type: cigarettes Substance Use Type: None Grafts History of Graft History of Graft?: No Exam Physical Exam Vital Signs: Temp Pulse Resp BP O2 Del Method 97.2 F L 73 18 172/94 H Room Air 12/21/21 08:34 12/21/21 08:34 12/21/21 08:34 12/21/21 08:34 12/21/21 08:34 Const General: cooperative, comfortable and no acute distress Nutritional Appearance: obese Orientation: alert, awake and oriented x3 Lower/Upper Extremity Exam Vascular Exam-Edema Left Foot: Edema Type: Non-Pitting Vascular Exam-Pulses Left Dorsalis Pedis: Pulse Assessment Method: Palpation Left Posterior Tibial: Pulse Assessment Method: Palpation Left Brachial: Pulse Assessment Method: NIBP Objective Meds/Allergies Home Medications albuterol sulfate 90 mcg/actuation aerosol inhaler 1 puff inhalation Q4-6H PRN Shortness Of Breath Or Wheezing 12/24/16 [History Confirmed 12/21/21] allopurinol 300 mg tablet 300 mg PO DAILY 12/24/16 [History Confirmed 12/21/21] atenolol 25 mg tablet 12.5 mg PO HS 12/24/16 [History Confirmed 12/21/21] bumetanide 2 mg tablet 4 mg PO QAM 12/24/16 [History Confirmed 12/21/21] magnesium oxide 400 mg (241.3 mg magnesium) tablet 400 mg PO BID 12/24/16 [History Confirmed 12/21/21] metolazone 2.5 mg tablet 5 mg PO DAILY 12/24/16 [History Confirmed 12/21/21] omeprazole 40 mg capsule,delayed release 40 mg PO BID 12/24/16 [History Confirmed 12/21/21] levothyroxine 100 mcg capsule 50 mcg PO DAILY 07/30/17 [History Confirmed 12/21/21] tramadol 50 mg tablet 100 mg PO Q6H PRN Pain 07/28/19 [History Confirmed 12/21/21] fluticasone propionate 50 mcg/actuation nasal spray,suspension 1 spray intranasal DAILY 05/12/20 [History Confirmed 12/21/21] atorvastatin 10 mg tablet 20 mg PO QHS 10/11/20 [History Confirmed 12/21/21] glyburide 2.5 mg tablet 2.5 mg PO BID 10/11/20 [History Confirmed 12/21/21] potassium chloride 20 mEq tablet,extended release 160 meq PO HS 10/11/20 [History Confirmed 12/21/21] gabapentin 600 mg tablet 1,200 mg PO BID #360 tabs 12/29/20 [Rx Confirmed 12/21/21] aspirin 81 mg capsule 81 mg PO HS 09/20/21 [History Confirmed 12/21/21] cholecalciferol (vitamin D3) 100 mcg (4,000 unit) capsule 4,000 unit PO DAILY 09/20/21 [History Confirmed 12/21/21] docusate sodium 100 mg capsule (Colace) 100 mg PO HS 09/20/21 [History Confirmed 12/21/21] potassium chloride 20 mEq tablet,extended release 100 meq PO QAM #1 tab 09/24/21[Rx Confirmed 12/21/21] amoxicillin 875 mg-potassium clavulanate 125 mg tablet 1 tab PO Q12H 12/21/21 [History Confirmed 12/21/21] Allergies diltiazem Adverse Reaction (Verified 12/21/21 08:39) Palpitations lisinopril Adverse Reaction (Verified 12/21/21 08:39) Swelling of Lip/Tongue/Throat morphine Adverse Reaction (Verified 12/21/21 08:39) Palpitations Wound/Ulcer Left Toe - 2nd Digit: Type: Diabetic Ulcer Diabetic Ulcer Grading: Deep Ulcer: abscess, osteomyelitis, tendonitis, extends to tendon,bone Bed Appearance: Beefy Red, [place] and Yellow Percent of Wound Bed Granulated/Red: 50 Percent of Devitalized: 50 Length (cm): 1.5 Width (cm): 1.5 Depth (cm): 0.1 CM Sq: 2.250 Surrounding Tissue Appearance: Hyperpigmented Surrounding Tissue Temp: Warm Drainage Amount: Moderate Drainage Description: Serosanguineous Drainage Odor: No Odor Results Height: 6 ft Weight: 106.594 kg Body Mass Index: 31.8 Assessment/Plan Assessment/Plan (1) Diabetic foot ulcer: Qualifiers: Diabetic foot ulcer location: toe Diabetes mellitus type: type 2 Laterality: left Non-pressure ulcer stage: with other severity Qualified Code(s): E11.621 - Type 2 diabetes mellitus with foot ulcer; L97.528 - Non-pressure chronic ulcer of other part of left foot with other specified severity Code(s): E11.621 - Type 2 diabetes mellitus with foot ulcer; L97.509 - Non-pressure chronic ulcer of other part of unspecified foot with unspecified severity Status: Chronic (2) Osteomyelitis: Assessment/Problem Details: left 2nd toe Qualifiers: Osteomyelitis type: other chronic Osteomyelitis location: foot Laterality: left Qualified Code(s): M86.672 - Other chronic osteomyelitis, leftankle and foot Code(s): M86.9 - Osteomyelitis, unspecified Status: Suspected (3) Type 2 diabetes mellitus with peripheral neuropathy: Code(s): E11.42 - Type 2 diabetes mellitus with diabetic polyneuropathy Status: Chronic (4) Hemosiderin pigmentation of lower extremity due to varicose veins: Code(s): L81.9 - Disorder of pigmentation, unspecified; I83.899 - Varicose veins of unspecified lower extremity with other complications Status: Chronic Time spent with patient Time Spent With Patient (min): 20 Dictated By: Sima Wagner APRN DD/ [id number] Signed By: <Electronically signed by GOLDEN Wagner> 12/21/21 [address] [facility] Work Phone: [phone]) 665-698609-30-2022 Evaluation note* Encounter Date Diagnosis Assessment Notes Treatment Notes Treatment Clinical Notes Nov, Type 2 diabetes mellitus with other circulatory complication, without long-term current use of insulin (ICD-10 - E11.59) To goal. Prior to your visit today we reviewed your chart and outlined the testing and treatment needed for your care. We discussed possible complications of diabetes including risk of heart disease, stroke, and kidney disease. Your goal is to keep uou HgA1C below 7 (preferably <6.5) and your blood pressure less than 130/85 (and preferably < 120/80) and mataining a healthy weight with a BMI less than 26. We are working together to acheive these goals with the following plan; healthier diet, understanding your medications, and your compliance. Barriers to these goals have been discussed. You have been given educational handouts. Nov, Acquired hypothyroidism (ICD-10 - E03.9) Asymptomatic at this time, Denies any unexplained weight change, hair loss or fatigue. Patient to continue with above medication and we will continue to monitor through routine blood work Nov, Other cardiomyopathy (ICD-10 - I42.8) Follows with Cardiology yearly. Nov, Other congestive heart failure (ICD-10 - I50.9) Follows with Cardiology yearly. Nov, Non-pressure chronic ulcer of other part of left foot with unspecified severity (ICD-10 - L97.529) Continues to follow with Dr. Begum for his left great toe. He is currently on antibioitcs and has a follow-up appointment next week. Nov, Simple chronic bronchitis (ICD-10 - J41.0) Stable. COPD symptoms remain unchanged at this time. No recent flare up, controlled on current medication. Patient should continue with the above and we will continue to monitor. Pay attention to any changes in shortness of breath such as patterns or other associated symptoms Prior to your visit today we reviewed your chart and outlined the testing and treatment needed for your care. We discussed the possible complications of COPD , including increased risk for acute exacerbation and respiratory failure. Our goal is to keep your COPD under control to avoid exacerbation and hospitalizations. maintain a healthy weight with a BMI less than 26. We are working together to achieve these goals with the following plan; healthier diet, increased activity and exercise, understanding your medications and your compliance, Nov, Persistent atrial fibrillation (ICD-10 - I48.19) Follows with Cardoishane edgar. Nov, Chronic venous insufficiency (ICD-10 - I87.2) Stable on medication. Nov, Cervical radiculopathy at C6 (ICD-10 - M54.12) Discussed due to worsening neck and shoulder pain tthat continues to despite phsyical therapy, muscle relaxers, tramadol, tylenol. Discussed further evaluation with MRI. This is affecting his activities of daily living. MRI ordered. Nov, Cervical radiculopathy at C7 (ICD-10 - M54.12) Nov, Osteoarthritis of spine with radiculopathy, cervical region (ICD-10 - M47.22) Nov, GERD (gastroesophageal reflux disease) (ICD-10 - K21.9) Reflux symptoms remain unchanged. Discussed the importance of meal content. They should avoid overeating and eating meals late in the evening. Take medication as directed and we will continue to monitor. 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 Nov, Encounter for immunization (ICD-10 - Z23) [employer] Other 09-15-2022 Evaluation note* Encounter Date Diagnosis Assessment Notes Treatment Notes Treatment Clinical Notes Nov, Other chronic pain (ICD-10 - G89.29) Nov, Cervical back pain with evidence of disc disease (ICD-10 - M50.90) [employer] Other 09-12-2022 Evaluation note* Encounter Date Diagnosis Assessment Notes Treatment Notes Treatment Clinical Notes Nov, Cervical back pain with evidence of disc disease (ICD-10 - M50.90) Neuro exam WNL, no meningeal signs. discussed symptoms are consistent with neck muscle strain. rx sent, take as directed. no NSAIDs with steroid therapy. Take medication as prescribed. Complete all doses of medication, even if sx are no longer present. Pt instructed to take medication with food. Informed pt that medication may make pt feel jittery, hungry and give you extra energy. Medication may also increase blood pressure and increase blood sugar. Pt also advised not to take NSAIDs while using steroids. Take muscle relaxer as directed. Do not drink with alcohol or use with other recreational drugs. May cause severe drowsiness. Do not operate a motor vehicle until you know how this medication will effect you.warm compresses/ice as directed. stretch and massage affected muscle as tolerated. immediate eval if warning symptoms of high fevers, neck stiffness, nausea, photophobia. otherwise follow up if new/worsening symptoms. pt verbalizes understanding and agrees c tx plan. [facility] Other 08-15-2022 Evaluation note* Encounter Date Diagnosis Assessment Notes Treatment Notes Treatment Clinical Notes Oct, Encounter for pre-operative examination (ICD-10 - Z01.818) Patient presents for preop evaluation for upcoming right parathyroidectomy .patient recently completed presurgical testing including lab work and , chest x-ray. All of this looks unremarkable for the most part. He does have COPD, diabetes, Afib, CHF, chronic kidney disease, and hypothryoidism. All of his chronic conditions seem to be for the most part stable and well controlled. He is a moderately high risk surgical candidate however since his complex, chronic condition are well controlled he seems to be of appropriate risk for surgery for surgery. No known contraindications for surgical procedure. He does require further Cardiac clearance as suggested by Dr. Rankin. Pt states that Dr. Burgess was to be notified for cardiac clearance prior to the procedure. Oct, GERD (gastroesophageal reflux disease) (ICD-10 - K21.9) Reflux symptoms remain unchanged. Discussed the importance of meal content. They should avoid overeating and eating meals late in the evening. Take medication as directed and we will continue to monitor. Oct, Type 2 diabetes mellitus with other circulatory complication, without long-term current use of insulin (ICD-10 - E11.59) To goal. Stable, controlled with A1c at 6.4 Prior to your visit today we reviewed your chart and outlined the testing and treatment needed for your care. We discussed possible complications of diabetes including risk of heart disease, stroke, and kidney disease. Your goal is to keep uou HgA1C below 7 (preferably <6.5) and your blood pressure less than 130/85 (and preferably < 120/80) and mataining a healthy weight with a BMI less than 26. We are working together to acheive these goals with the following plan; healthier diet, understanding your medications, and your compliance. Barriers to these goals have been discussed. You have been given educational handouts. Oct, Chronic venous insufficiency (ICD-10 - I87.2) Follows with Cardiology. Denies any worsening of lower extremity edema, stable. Oct, Persistent atrial fibrillation (ICD-10 - I48.19) Follows with Cardiology, Dr Burgess every six months. 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 No recent flares. Oct, Acquired hypothyroidism (ICD-10 - E03.9) Asymptomatic at this time, Denies any unexplained weight change, hair loss or fatigue. Patient to continue with above medication and we will continue to monitor through routine blood work Oct, Stage 3 chronic kidney disease, unspecified whether stage 3a or 3b CKD (ICD-10 - N18.30) Reviewed most recent labs and this was improved since his last blood work. Oct, Other cardiomyopathy (ICD-10 - I42.8) Follows with Cardiology Oct, Other congestive heart failure (ICD-10 - I50.9) Denies chest pain, sob, palpitations or edema. Follows with Cardiology. Oct, Simple chronic bronchitis (ICD-10 - J41.0) Stable. No recent COPD exacerbations. No medication adjustments. Chronic sxs are unchanged, no increased shortness of breath, cough. No sxs of air hunger. Only uses inhaler as needed. Denies any SOB, chest pain or exertional dyspnea. [facility] Other 07-25-2022 Evaluation note* Encounter Date Diagnosis Assessment Notes Treatment Notes Treatment Clinical Notes Sep, Hypokalemia (ICD-10 - E87.6) [facility] Other 07-15-2022 Evaluation note* Encounter Date Diagnosis Assessment Notes Treatment Notes Treatment Clinical Notes Sep, Hospital discharge follow-up (ICD-10 - Z09) The patient was seen today in follow-up from recent hospital stay. All available hospital records were reviewed and discussed with the patient. Hospital discharge medications were reviewed. Any changes are noted above. He is doing well after surigcal procedure. he is continue Augmentin for 10 days. He is following with Dr. Anthony ROSALES and Dr. Begum for post surgical follow-up. Denies any fever, chills or body aches. Denies any increased pain or signs of inefection. 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 Discussed the importance of meal content. They should avoid overeating and eating meals late in the evening. Take medication as directed and we will continue to monitor. Aug, Type 2 diabetes mellitus with other circulatory complication, without long-term current use of insulin (ICD-10 - E11.59) Due for labs, pt to have labs drawn Prior to your visit today we reviewed your chart and outlined the testing and treatment needed for your care. We discussed possible complications of diabetes including risk of heart disease, stroke, and kidney disease. Your goal is to keep uou HgA1C below 7 (preferably <6.5) and your blood pressure less than 130/85 (and preferably < 120/80) and mataining a healthy weight with a BMI less than 26. We are working together to acheive these goals with the following plan; healthier diet, understanding your medications, and your compliance. Barriers to these goals have been discussed. You have been given educational handouts. 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 Aug, Acquired hypothyroidism (ICD-10 - E03.9) Asymptomatic at this time, Denies any unexplained weight change, hair loss or fatigue. Patient to continue with above medication and we will continue to monitor through routine blood work Aug, Stage 3 chronic kidney disease, unspecified whether stage 3a or 3b CKD (ICD-10 - N18.30) Reviewed labs and his EGFR is at 58, slightly declined. Aug, Other cardiomyopathy (ICD-10 - I42.8) Aug, Other congestive heart failure (ICD-10 - I50.9) Denies chest pain, sob, palpitations or edema. Follows with Cardiology. Take medication as directed. Notify provider if weight gain of 2 or more pounds in one day, or 5 or more pounds in one week. Worsening shortness of breath that occurs while resting or with minimal activity. Waking up because of shortness of breath, dry cough, or wheezing. Swelling in your ankles, legs, or abdomen that becomes worse. Pain or discomfort in your chest, arm, or jaw that becomes more frequent, more severe, or that occurs with minimal activity. Chest pain that is worse with coughing or deep breathing. A persistent dry, hacking cough. Palpitations (pounding in the chest); dizzy or fainting spells; a heart rhythm that is too fast, too slow, or irregular. Excessive or persistent fatigue, or decreasing tolerance to exercise. Nausea, vomiting, or inability to eat, any symptoms that you experience and are concerned about. Take your medication as scheduled. Decrease sodium intake no more than 2 grams/day. Watch fluid intake monitor your intake and output. Aug, Other chronic pain (ICD-10 - G89.29) Aug, Pain in right shoulder (ICD-10 - M25.511) Discussed with pt x-ray evaluation of the shoulder due to worsening pain. He agrees and has this completed in office today and will call with the results. Referral placed to phsycial therapy and will treat conservatively may need a MRI to further evaluate if symptoms continue. RICE therapy. otc ibuprofen/tylenol prn for pain. ice/warm compresses as directed. immediate eval if warning symptoms of neurovascular compromise. otherwise follow up with if new/worsening symptoms. pt verbalizes understanding and agrees c tx plan. Aug, Cervical pain (neck) (ICD-10 - M54.2) Neuro exam WNL, no meningeal signs. discussed symptoms are consistent with neck muscle strain but would like to proceed with x-ray of the cervical spine due to his history of athritist He is agreeable and will get these completed today. Discussed with pt referral to physical therapy. He agrees to referral to physical therapy. DIscussed ice or warm compresses as directed. stretch and massage affected muscle as tolerated. immediate eval if warning symptoms of high fevers, neck stiffness, nausea, photophobia. otherwise follow up with if new/worsening symptoms. pt verbalizes understanding and agrees c tx plan. Aug, Dizziness (ICD-10 - R42) Discussed diagnosis with patient and instructed to take medications as prescribed. He would like to trial OTC Antivert 25 mg po Q6 hours prn. Do not lie flat on your back. Prop yourself up slightly and keep eyes open - this may reduce the spinning feeling. Move slowly so that you do not fall. Do not drive while you are having vertigo. Referral to physical therapy for vestibular retraining due to symptoms. Seek immediate evaluation with any new or worsening SX, Pt verbalizes understanding and agrees with plan of care. [facility] Other 03-28-2022 Evaluation note* Encounter Date Diagnosis Assessment Notes Treatment Notes Treatment Clinical Notes May, GERD (gastroesophageal reflux disease) (ICD-10 - K21.9) Reflux symptoms remain unchanged. Discussed the importance of meal content. They should avoid overeating and eating meals late in the evening. Take medication as directed and we will continue to monitor. May, Type 2 diabetes mellitus with other circulatory complication, without long-term current use of insulin (ICD-10 - E11.59) Due for labs, pt to have labs drawn Prior to your visit today we reviewed your chart and outlined the testing and treatment needed for your care. We discussed possible complications of diabetes including risk of heart disease, stroke, and kidney disease. Your goal is to keep uou HgA1C below 7 (preferably <6.5) and your blood pressure less than 130/85 (and preferably < 120/80) and mataining a healthy weight with a BMI less than 26. We are working together to acheive these goals with the following plan; healthier diet, understanding your medications, and your compliance. Barriers to these goals have been discussed. You have been given educational handouts. 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 May, Acquired hypothyroidism (ICD-10 - E03.9) Asymptomatic at this time, Denies any unexplained weight change, hair loss or fatigue. Patient to continue with above medication and we will continue to monitor through routine blood work May, Stage 3 chronic kidney disease, unspecified whether stage 3a or 3b CKD (ICD-10 - N18.30) Due for labs. May, Other cardiomyopathy (ICD-10 - I42.8) May, Other congestive heart failure (ICD-10 - I50.9) Denies chest pain, sob, palpitations or edema. Follows with Cardiology. Take medication as directed. Notify provider if weight gain of 2 or more pounds in one day, or 5 or more pounds in one week. Worsening shortness of breath that occurs while resting or with minimal activity. Waking up because of shortness of breath, dry cough, or wheezing. Swelling in your ankles, legs, or abdomen that becomes worse. Pain or discomfort in your chest, arm, or jaw that becomes more frequent, more severe, or that occurs with minimal activity. Chest pain that is worse with coughing or deep breathing. A persistent dry, hacking cough. Palpitations (pounding in the chest); dizzy or fainting spells; a heart rhythm that is too fast, too slow, or irregular. Excessive or persistent fatigue, or decreasing tolerance to exercise. Nausea, vomiting, or inability to eat, any symptoms that you experience and are concerned about. Take your medication as scheduled. Decrease sodium intake no more than 2 grams/day. Watch fluid intake monitor your intake and output. [facility] Other 12-13-2021 Note From: Kathi Spangler ([facility] ([facility])) To: Francisco Li DO; Sent: 02/27/2021 07:26:47 EST Subject: FW: Medication Management Due Date/Time: 02/27/2021 22:32:00 EST From: [facility] To: Francisco Li DO Sent: February 25, 2021 9:32:13 PM [facility] Subject: Medication Management Due: February 26, 2021 12:32:03 AM [facility] On Hold Pending Signature Drug: glipiZIDE (glipiZIDE 2.5 mg oral tablet, extended release), TAKE 1 TABLET BY MOUTH TWICE DAILY Quantity: 180 tab(s) Days Supply: 90 Refills: 3 Substitutions Allowed Notes from Pharmacy: - First Attempt Ref: [id number] Dispensed Drug: glipiZIDE (glipiZIDE 2.5 mg oral tablet, extended release), TAKE 1 TABLET BY MOUTH TWICE DAILY Quantity: 180 tab(s) Days Supply: 90 Refills: 3 Substitutions Allowed Notes from Pharmacy: Requesting 1 year supply From: Francisco Li DO To: [facility] Sent: 02/27/2021 07:31:43 EST Subject: FW: Medication Management Submitted: Complete:glipiZIDE (glipiZIDE 2.5 mg oral tablet, extended release) Signed by Francisco Li DO 02/27/2021 07:31:00 EST Approved glipiZIDE (GLIPIZIDE 2.5MG TAB XL) TAKE 1 TABLET BY MOUTH TWICE DAILY Qty: 180 tab(s) Days Supply: 90 Refills: 3 Substitutions Allowed Route To Pharmacy - [facility] Note from Pharmacy: Requesting 1 year [facility]12-01-2021 Note From: Kathi Spangler ([facility] ([facility])) To: Francisco Li DO; Sent: 02/15/2021 07:39:49 EST Subject: FW: Medication Management Due Date/Time: 02/15/2021 23:39:00 EST Patient matched by Kathi Spangler on 02/15/2021 07:39:43 EST From: [facility] To: Francisco Li DO Sent: February 14, 2021 10:39:16 PM [facility] Subject: Medication Management Due: February 15, 2021 5:07:44 PM [facility] On Hold Pending Signature Drug: omeprazole (omeprazole 40 mg oral delayed release capsule), TAKE 1 CAPSULE BY MOUTH TWICE DAILY Quantity: 180 cap(s) Days Supply: 90 Refills: 3 Substitutions Allowed Notes from Pharmacy: - First Attempt Ref: [id number] Dispensed Drug: Omeprazole 40 MG Oral Capsule Delayed Release, TAKE 1 CAPSULE BY MOUTH TWICE DAILY Quantity: 180 cap(s) Days Supply: 90 Refills: 3 Substitutions Allowed Notes from Pharmacy: Requesting 1 year supply On Hold Pending Signature Drug: levothyroxine (levothyroxine 50 mcg (0.05 mg) oral tablet), TAKE 1 TABLET BY MOUTH DAILY Quantity: 90 tab(s) Days Supply: 90 Refills: 3 Substitutions Allowed Notes from Pharmacy: - First Attempt Ref: [id number] Dispensed Drug: levothyroxine (levothyroxine 50 mcg (0.05 mg) oral tablet), TAKE 1 TABLET BY MOUTH DAILY Quantity: 90 tab(s) Days Supply: 90 Refills: 3 Substitutions Allowed Notes from Pharmacy: Requesting 1 year supply From: Francisco Li DO To: [facility] Sent: 02/15/2021 07:59:23 EST Subject: FW: Medication Management Submitted: Complete:levothyroxine (levothyroxine 50 mcg (0.05 mg) oral tablet) Signed by Francisco Li DO 02/15/2021 07:59:00 EST Approved Durable Medical Equipment (DME) (Omeprazole 40 MG Oral Capsule Delayed Release) TAKE 1 CAPSULE BY MOUTH TWICE DAILY Qty: 180 cap(s) Days Supply: 90 Refills: 3 Substitutions Allowed Route To Pharmacy - [facility] Note from Pharmacy: Requesting 1 year supply Approved levothyroxine (Levothyroxine Sodium 50 MCG Oral Tablet) TAKE 1 TABLET BY MOUTH DAILY Qty: 90 tab(s) Days Supply: 90 Refills: 3 Substitutions Allowed Route To Pharmacy - [facility]: [id number] Progress note Author Sandra Danielson [facility] November 10, 2020 10:56am Note Date/Time November 10, 2020 10 :41am [facility] [place] [id number] Hem/Onc Follow Up Note - OP Signed Patient: Sandra Potter MR#: [id number] : 1955 Acct:[id number] Age/Sex: 65 / M Type: REG RCR Copies to: Francisco Li DO~ Date of Service: 11/10/2020 Time of Service: 10:38 - Assessment & Plan (1) DLBCL (diffuse large B cell lymphoma) Plan: DLBCL, non-germinal center subtype, involving lungs, small bowel, and right iliac bone. R-IPI score 3 (estimated 4Y PFS 53% and OS 55%). s/p RCHOPx6 cycles. ECOG 1412: Randomized Phase II Open Label Study of Lenalidomide R-CHOP (R2CHOP) vs RCHOP (Rituximab, Cyclophosphamide, Doxorubicin, Vincristine and Prednisone) in Patients with Newly Diagnosed Diffuse Large B Cell Lymphoma - Randomized to control arm, with standard chemotherapy RCHOP, 08/02/15-11/22/15, total of 6 cycles. - Prophylactic LP with IT MTX (elevated LDH, multiple sites of extranodal diseases), total 4 doses. Exit PET/CT scan showed complete remission. No imaging planned. he has no signs of disease. follow yearly. I have agreed to refill his lyrica and gabapentin. Follow Up Instructions: refill gabapentin 1200bid and lyrica 50bid. f/u in 1 year. cbc, cmp, ldh prior to f/u. - History of Present Illness Chief Complaint: Patient is a former patient of Dr Cardona here for a 6 month follow up for diffuse large b-cell lymphoma. He has labs for review, voices no concerns. HPI: PAST MEDICAL HISTORY: CKD III (GFR ion 50s), CHF 2/2 hypertrophy (LVEF 70%), andbaseline grade 1 diabetic neuropathy involving feet. History of DVT after gastric bypass, off anticoagulation. A-fib. PAST SURGICAL HISTORY: Coronary artery s/p stents; Hernia repair; Colon perforation status post repair in 2009; Right knee arthroplasty in ; Sleevegastrectomy in 2011 at [facility]. FAMILY HISTORY: One brother, one son and no cancer. One paternal aunt had unknown type of cancer in her age of 70s. 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 Former smoker with a 100 pack-year smoking history (3 packs perday for 35 years), quit 03/11/2007. Drinking four beers a day four days a week. Denies illicit drug abuse. Summary of Therapies: ECOG 1412: Randomized Phase II Open Label Study of Lenalidomide R-CHOP (R2CHOP) vs RCHOP (Rituximab, Cyclophosphamide, Doxorubicin, Vincristine and Prednisone) in Patients with Newly Diagnosed Diffuse Large B Cell Lymphoma - Randomized to control arm, with standard chemotherapy RCHOP, 08/02/15-11/22/15, total of 6 cycles. - Prophylactic LP with IT MTX (elevated LDH, multiple sites of extranodal diseases), total 4 doses. Exit PET/CT scan showed complete remission. - Course complicated by atypical pneumonia during the third week after cycle 3, hospitalized between 09/29-10/03, received IV vancomycin, Zosyn and Levaquin, discharged on a week course of Augmentin and Levaquin. He had CT chest in 02/2020 at [facility] 11/09/20 had bronchoscopy at [place] in august. told it was scar tissue. No concerns for cancer. He still gets blood tinged sputum. THe hypothesis is thathe had some scarring from amiodarone which has contributed to friable mucosa. He has COPD but he breathes ok. occasional some sob. No fevers, sweats chills. no unexplained weight loss. he see Dr. Li and previously seen dr. Edgar Soto. He cannot get his gapabentin and pregabalin refilled currently since Dr. Soto left. he takes xarelto for atrial fibrillation. I have agreed to refill his lyrica 50mg po bid and gapabentin 1200mg bid - Physical Exam ECOG PS:0 General : patient is alert and oriented to person place and time, no acute distress. Neck: no JVD or thyromegaly. Lymph: no cervical, supraclavicular, axillary adenopathy. Heart: regular rate and rhythm no murmurs rubs or gallops. Abdomen: soft nontender nondistended, no hepatosplenomegaly. Lungs: clear to auscultation bilaterally. No wheezes, rales, rhonchi. Extremities: no clubbing cyanosis. 1+ edema bilateral. Goal of Treatment: Curative - Time with Patient Coordination of Care & Counseling Time: Greater than 50% of time spent with patient was for coordination of care (as documented) and [id number] counseling of patient and/or family. [facility] - Medical History Medical History: Medical History (Last Reviewed 11/06/19 @ 09:26 by Rhonda Ramos RN) Diabetes mellitus Hx of intestinal obstruction Hyperlipemia Hypertension Hypothyroid - Surgical History Surgical History: Surgical History (Last Reviewed 11/06/19 @ 09:26 by Rhonda Ramos RN) H/O heart artery stent History of hernia surgery History of orthopedic surgery S/P gastric surgery - Social History Smoking Status: Former smoker Tobacco Type: cigarettes Substance Use Type: None Additional Data - Additional Objective Data Height/Weight: Height 6 ft Weight 110.903 kg Vital Signs: 11/10/20 10:18 Temperature 97.9 F Pulse Rate [Right Brachial] 54 L Respiratory Rate 20 Blood Pressure [Right Arm] 134/74 02 Sat by Pulse Oximetry 97 ONC Emotional Needs Assessment: Emotional Needs Identified? No: pt states he is good - Lab Results Diagram of Most Recent CBC and CMP 05/04/20 09:17 05/04/20 09:17 - Home Medications and Allergies Allergies/Adverse Reactions: Allergies aspirin Adverse Reaction (Verified 11/10/20 10:18) Cough-see comment diltiazem Adverse Reaction (Verified 11/10/20 10:18) Palpitations lisinopril Adverse Reaction (Verified 11/10/20 10:18) Swelling of Lip/Tongue/Throat morphine Adverse Reaction (Verified 11/10/20 10:18) Palpitations Home Medications: Home Medications albuterol sulfate 90 mcg/actuation aerosol inhaler 1 puff INHALATION Q4-6H PRN 12/24/16 [History Confirmed 10/12/20] allopurinol 300 mg tablet 300 mg PO DAILY 12/24/16 [History Confirmed 11/10/20] atenolol 25 mg tablet 12.5 mg PO DAILY 12/24/16 [History Confirmed 11/10/20] bumetanide 2 mg tablet 2 mg PO BID 12/24/16 [History Confirmed 11/10/20] magnesium oxide 400 mg (241.3 mg magnesium) tablet 400 mg PO BID 12/24/16 [History Confirmed 11/10/20] metolazone 2.5 mg tablet 5 mg PO DAILY 12/24/16 [History Confirmed 11/10/20] omeprazole 40 mg capsule,delayed release 40 mg PO DAILY 12/24/16 [History Confirmed 11/10/20] potassium chloride 20 mEq tablet,extended release 200 meq PO QAM 12/24/16 [History Confirmed 11/10/20] pregabalin 75 mg capsule (Lyrica) 50 mg PO BID 12/24/16 [History Confirmed 10/12/20] rivaroxaban 20 mg tablet (Xarelto) 20 mg PO DAILY 12/24/16 [History Confirmed 11/10/20] levothyroxine 100 mcg capsule 50 mcg PO DAILY 07/30/17 [History Confirmed 11/10/20] gabapentin 300 mg capsule 1,200 mg PO BID 07/22/18 [History Confirmed 11/10/20] tramadol 50 mg tablet 100 mg PO Q6H PRN 07/28/19 [History Confirmed 11/10/20] fluticasone propionate 50 mcg/actuation nasal spray,suspension 1 spray INTRANASAL DAILY 05/12/20 [History Confirmed 11/10/20] atorvastatin 10 mg tablet 10 mg PO QHS 10/11/20 [History Confirmed 11/10/20] glyburide 2.5 mg tablet 2.5 mg PO BID 10/11/20 [History Confirmed 11/10/20] potassium chloride 20 mEq tablet,extended release 160 meq PO HS 10/11/20 [History Confirmed 10/12/20] Dictated By: Sandra Danielson II, DO DD/ 1038 Signed By: <Electronically signed by Sandra Danielson II, DO> 11/10/20 1056 [facility] Work Phone: 1(767) 994-345106-10-2021 History of Present illness Narrative* Jacey Rizvi RN - 08/25/2020 2:02 PM EDT Discharge instructions reviewed with pt. Pt verb understanding. documented in this [facility] Work Phone: 1(185) 607-161906-10-2021 Hospital Discharge instructions* Instructions* Ulisses Nieves MD - 08/25/2020 Images from the original note were not included. [facility] VERDUZCO POST-BRONCHOSCOPY INSTRUCTIONS 1. ACTIVITY No driving, operating machinery, or making important (legal) decisions for 24 hours. Resume normal activity after 24 hours. You may return to work after 24 hours. 2. DIET ____Resume you rafael diet at . Please try a sip of cool water first, and if you are able to swallow normally you may then advance to your usual diet. 3. MEDICATIONS Resume your usual medications. 4. PHYSICIAN FOLLOW-UP ____Please call the office for an appointment/further instructions. 5. ADDITIONAL INSTRUCTIONS 6. CALL YOUR PHYSICIAN IF YOU EXPERIENCE ANY OF THE FOLLOWING: A. Difficulty breathing or respiratory distress. B. Sudden chest or shoulder pain. C. Persistent or uncontrollable cough. D. Coughing up excessive amounts of blood. (Small amounts of blood may be noted immediately after the examination. This should gradually decrease in amount and the color change from bright red to dark red or brown). E. High fever, chills, or excessive sweating. F. Redness or swelling at the IV site. 7. IF YOU HAVE ANY QUESTIONS, PLEASE CALL YOUR DOCTOR OR THE [facility] GI [facility] AT [phone]. Bronchoscopy: What to Expect at Home Your Recovery Bronchoscopy lets your doctor look at your airway through a tube called a bronchoscope. Afterward, you may feel tired for 1 or 2 days. Your mouth may feel very dry for several hours after the procedure. You may also have a sore throat and a hoarse voice for a few days. Sucking on throat lozenges orgargling with warm salt water may help soothe your sore throat. If a sample of tissue (biopsy) was taken, you may spit up a small amount of blood or have bloody saliva. This is normal. This care sheet gives you a general idea about how long it will take for you to recover. But each person recovers at a different pace. Follow the steps below to get better as quickly as possible. How can you care for yourself at home? Activity ? Do not eat anything for 2 hours after the procedure. ? Rest when you feel tired. Getting enough sleep will help you recover. ? Avoid strenuous activities, such as bicycle riding, jogging, weight lifting, or aerobic exercise,until your doctor says it is okay. ? Ask your doctor when you can drive again. Diet ? You can eat your normal diet. If your stomach is upset, try bland, low-fat foods like plain rice,broiled chicken, toast, and yogurt. ? If it is painful to swallow, start out with cold drinks, flavored ice pops, and ice cream. Next, try soft foods like pudding, yogurt, canned or cooked fruit, scrambled eggs, and mashed potatoes. Avoid eating hard or scratchy foods like chips or raw vegetables. Avoid orange or tomato juice and other acidic foods that can sting the throat. ? Drink plenty of fluids to avoid becoming dehydrated (unless your doctor tells you not to). Medicines ? Take pain medicines exactly as directed. ? If the doctor gave you a prescription medicine for pain, take it as prescribed. ? If you are not taking a prescription pain medicine, ask your doctor if you can take an fdtc-cdm-cxomqel medicine. ? If you think your pain medicine is making you sick to your stomach: ? Take your medicine after meals (unless your doctor has told you not to). ? Ask your doctor for a different pain medicine. Follow-up care is a marin part of your treatment and safety. Be sure to make and go to all appointments, and call your doctor if you are having problems. It's also a good idea to know your test resultsand keep a list of the medicines you take. When should you call for help? Call 911 anytime you think you may need emergency care. For example, call if: ? You passed out (lost consciousness). ? You have sudden chest pain and shortness of breath. ? You cough up large amounts of bright red blood. ? You have severe pain in your chest. ? You have severe trouble breathing. ?Call your doctor now or seek immediate medical care if: ? You cough up more than a few tablespoons of blood. ? You have pain that does not get better after you take pain medicine. ? You have a fever over 100 F. ? You still sound hoarse after a few days. ? You have bubbles under the skin around the collarbone. These may crackle and pop when you press on them. ?Watch closely for changes in your health, and be sure to contact your doctor if you have any problems. Where can you learn more? Go to [email or web address] and sign in to your [employer] account. Enter S288 in the Search Health Information box to learn more about Bronchoscopy: What to Expect at Home. If you do not have an account, please click on the Sign Up Now link. Current as of: July 27, 2016 Content Version: 11.5 5441-4700 [employer]. Care instructions adapted under license by [employer]. If youhave questions about a medical condition or this instruction, always ask your healthcare professional. [employer] disclaims any warranty or liability for your use of this information. documented in this [facility] Work Phone: [phone] 233-140302-25-2021 Progress note Author Brendan Bolaños [facility] May 12, 2020 1:33pm Note Date/Time May 12, 2020 1:27pm [facility] [place] [address] Hem/Onc Follow Up Note - OP Signed Patient: Sandra Potter MR#: [id number] : 1955 Acct:[id number] Age/Sex: 64 / M Type: REG RCR Copies to: Francisco Li DO~ Subjective Date/Time of Service: Date of Service: 05/12/2020 Time of Service: 09:26 Chief Complaint: Patient is here for a 6 month follow up for lymphoma. He has labs for review. HPI: Mr. Potter presents to a scheduled follow up. He reports overall doing well, he still have intermittent hemoptysis, cleared by antibiotics from time to time. He had CT chest in 02/2020 at [facility], was told that there was no concern. He otherwise denies fever, chills, lymphadenopathy. PAST MEDICAL HISTORY: CKD III (GFR ion 50s), CHF 2/2 hypertrophy (LVEF 70%), andbaseline grade 1 diabetic neuropathy involving feet. History of DVT after gastric bypass, off anticoagulation. A-fib. PAST SURGICAL HISTORY: Coronary artery s/p stents; Hernia repair; Colon perforation status post repair in 2009; Right knee arthroplasty in ; Sleevegastrectomy in 2011 at [facility]. FAMILY HISTORY: One brother, one son and no cancer. One paternal aunt had unknown type of cancer in her age of 70s. 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 Former smoker with a 100 pack-year smoking history (3 packs perday for 35 years), quit 03/11/2007. Drinking four beers a day four days a week. Denies illicit drug abuse. - Summary of Therapies Summary of Therapies: ECOG 1412: Randomized Phase II Open Label Study of Lenalidomide R-CHOP (R2CHOP) vs RCHOP (Rituximab, Cyclophosphamide, Doxorubicin, Vincristine and Prednisone) in Patients with Newly Diagnosed Diffuse Large B Cell Lymphoma - Randomized to control arm, with standard chemotherapy RCHOP, 08/02/15-11/22/15, total of 6 cycles. - Prophylactic LP with IT MTX (elevated LDH, multiple sites of extranodal diseases), total 4 doses. Exit PET/CT scan showed complete remission. - Course complicated by atypical pneumonia during the third week after cycle 3, hospitalized between 09/29-10/03, received IV vancomycin, Zosyn and Levaquin, discharged on a week course of Augmentin and Levaquin. ROS Details: All systems reviewed & no additional complaints except as documented Subjective/ROS - Narrative: CONSTITUTIONAL: Gaining weight, no fever, chills, weakness or fatigue. HEENT: No visual or hearing changes, no oral lesions. CARDIOVASCULAR: No chest pain, chest pressure or chest discomfort. No palpitations RESPIRATORY: Stable shortness of breath GASTROINTESTINAL: No dysphagia, nausea, vomiting or diarrhea. No abdominal pain,melena, hematochezia. GENITOURINARY: No dysuria, urinary frequency or urgency. NEUROLOGICAL: No headache, dizziness, syncope, stable numbness or tingling in the extremities. MUSCULOSKELETAL: Positive for chronic joint pain, stable. [facility] - Medical History Medical History: Medical History (Last Reviewed 11/06/19 @ 09:26 by Rhonda Ramos RN) Diabetes mellitus Hx of intestinal obstruction Hyperlipemia Hypertension Hypothyroid - Surgical History Surgical History: Surgical History (Last Reviewed 11/06/19 @ 09:26 by Rhonda Ramos RN) H/O heart artery stent History of hernia surgery History of orthopedic surgery S/P gastric surgery - Social History Smoking Status: Former smoker Tobacco Type: cigarettes Substance Use Type: None Home Medications & Allergies Allergies diltiazem Adverse Reaction (Verified 11/06/19 09:27) Palpitations lisinopril Adverse Reaction (Verified 11/06/19 09:27) Swelling of Lip/Tongue/Throat morphine Adverse Reaction (Verified 11/06/19 09:27) Palpitations Home Medications Xarelto 10 mg PO DAILY 12/24/16 [History Confirmed 05/12/20] albuterol sulfate 1 puff INHALATION Q4-6H PRN 12/24/16 [History Confirmed 05/12/20] allopurinol 300 mg PO DAILY 12/24/16 [History Confirmed 05/12/20] atenolol 50 mg PO DAILY 12/24/16 [History Confirmed 05/12/20] bumetanide 2 mg PO DAILY 12/24/16 [History Confirmed 05/12/20] magnesium oxide 400 mg PO BID 12/24/16 [History Confirmed 05/12/20] metolazone 5 mg PO DAILY 12/24/16 [History Confirmed 05/12/20] omeprazole 40 mg PO DAILY 12/24/16 [History Confirmed 05/12/20] potassium chloride 160 meq PO QAM 12/24/16 [History Confirmed 05/12/20] pregabalin [Lyrica] 150 mg PO QID 12/24/16 [History Confirmed 05/12/20] levothyroxine 100 mcg PO DAILY 07/30/17 [History Confirmed 05/12/20] gabapentin 600 mg PO BID 07/22/18 [History Confirmed 05/12/20] glyburide 2.5 mg PO DAILY 30 Days #30 tab 07/28/19 [Rx Confirmed 05/12/20] tramadol 50 mg PO Q6H PRN 07/28/19 [History Confirmed 05/12/20] fluticasone propionate [Flonase] 1 spray INTRANASAL DAILY 05/12/20 [History Confirmed 05/12/20] Objective - Height/Weight Height/Weight: Height 6 ft Weight 122.425 kg - Vital Signs Vital Signs: 05/12/20 09:18 Temperature 97.6 F Pulse Rate [Right Brachial] 58 L Respiratory Rate 20 Blood Pressure [Right Arm] 148/83 H 02 Sat by Pulse Oximetry 94 L - Pain Generalized Pain Intensity: 5 - Emotional Needs Assessment Emotional Needs Assessment: Emotional Needs Identified? No Physical Exam Narrative: GENERAL APPEARANCE: In no acute distress. BMI 36.6 HEENT: No jaundice or lymphadenopathy. LUNGS: Mild crackles at left base CARDIOVASCULAR: S1 and S2, regular rate and rhythm, no murmurs, gallops, rubs. ABDOMEN: Soft, nontender, obese. No hepatosplenomegaly. No mass palpated. EXTREMITIES: 1+edema, pitting, in b/l LE, no calf tenderness. NEUROLOGIC: Grossly intact. - ECOG Performance Status ECOG Score: 1 Results - Labs Labs: Diagram of Most Recent CBC and CMP 05/04/20 09:17 05/04/20 09:17 Assessment and Plan (1) DLBCL (diffuse large B cell lymphoma) Qualifiers: Lymphoma site: extranodal excluding spleen and other solid organs QualifiedCode(s): C83.39 - Diffuse large B-cell lymphoma, extranodal and solid organ sites DLBCL, non-germinal center subtype, involving lungs, small bowel, and right iliac bone. R-IPI score 3 (estimated 4Y PFS 53% and OS 55%). s/p RCHOPx6 cycles. -Careful exam and history, no concerning symptoms to suggest lymphoma recurrence. I have personally reviewed his CT chest at [facility], no evidence of disease. Hemoptysis is unrelated to his lymphoma. -I will see him back in 6 months with CBC, CMP, he knows to call if questions orconcerns arise. I will check with the clinical trial RN, this likely will be his last visit. (2) Examination of participant in clinical trial Clinical trial follow-up for E1412. -Grade 1 hypercalcemia, unrelated to lymphoma. (3) Hypercalcemia Started in 2019, he is not taking calcium supplement. -Vitamin D was low, and PTH level was 77, on the higher end, no signs of active lymphoma. He was referred to Endocrinology in 2019, no further work up done. -Updated PTH, Vitamin D, SIFE, K/L ratio, essentially normal, unclear etiology. He is following with PCP, Dr. Li for this. (4) CHF (congestive heart failure), NYHA class I Grade 1, due to hypertrophy. Stable -Continue same medication of diuresis per Cardiology (Dr. Burgess). (5) A-fib Qualifiers: Atrial fibrillation type: chronic Following Cardiology on chronic anticoagulation. (6) Diabetes 1.5, managed as type 2 (7) Peripheral neuropathy (8) Obesity (BMI 35.0-39.9 without comorbidity) (9) CKD (chronic kidney disease) stage 3, GFR 30-59 ml/min (10) Joint pain - Chemo Plan Goal of Treatment: Curative - Time with Patient Time Spent with Patient (Follow Up Visit): 35 minutes Coordination of Care & Counseling Time: Greater than 50% of time spent with patient was for coordination of care (as documented) and [id number]-[id number] counseling of patient and/or family. Dictated By: Brendan Bolaños MD DD/ [id number] Signed By: <Electronically signed by Brendan Bolaños MD> 05/12/20 [address] [facility] Work Phone: [phone] 261-662908-27-2020 Progress note Author Brendan Bolaños [facility] November 12, 2019 4:58pm Note Date/Time November 12, 2019 3: 09pm [facility] [place] [address] Hem/Onc Follow Up Note - OP Signed Patient: Sandra Potter MR#: [id number] : 1955 Acct:[id number] Age/Sex: 64 / M Type: REG RCR Copies to: Francisco Li DO~ Subjective Date/Time of Service: Date of Service: 11/12/2019 Time of Service: 15:09 Chief Complaint: Patient here for three month follow up appointment for DLBCL with lab work for review. HPI: Mr. Potter presents to a scheduled follow up. His sugar is controlled, working with PCP. He otherwise feels well, he denies fever, chills, lymphadenopathy. He denies polyuria, polydipsia. He denies abdominal pain, melena, hematochezia, or gross hematuria. Numbness or tingling stable. PAST MEDICAL HISTORY: CKD III (GFR ion 50s), CHF 2/2 hypertrophy (LVEF 70%), andbaseline grade 1 diabetic neuropathy involving feet. History of DVT after gastric bypass, off anticoagulation. A-fib. PAST SURGICAL HISTORY: Coronary artery s/p stents; Hernia repair; Colon perforation status post repair in 2009; Right knee arthroplasty in ; Sleevegastrectomy in 2011 at [facility]. FAMILY HISTORY: One brother, one son and no cancer. One paternal aunt had unknown type of cancer in her age of 70s. 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 Former smoker with a 100 pack-year smoking history (3 packs perday for 35 years), quit 03/11/2007. Drinking four beers a day four days a week. Denies illicit drug abuse. - Summary of Therapies Summary of Therapies: ECOG 1412: Randomized Phase II Open Label Study of Lenalidomide R-CHOP (R2CHOP) vs RCHOP (Rituximab, Cyclophosphamide, Doxorubicin, Vincristine and Prednisone) in Patients with Newly Diagnosed Diffuse Large B Cell Lymphoma - Randomized to control arm, with standard chemotherapy RCHOP, 08/02/15-11/22/15, total of 6 cycles. - Prophylactic LP with IT MTX (elevated LDH, multiple sites of extranodal diseases), total 4 doses. Exit PET/CT scan showed complete remission. - Course complicated by atypical pneumonia during the third week after cycle 3, hospitalized between 09/29-10/03, received IV vancomycin, Zosyn and Levaquin, discharged on a week course of Augmentin and Levaquin. ROS Details: All systems reviewed & no additional complaints except as documented Subjective/ROS - Narrative: CONSTITUTIONAL: Gaining weight, no fever, chills, weakness or fatigue. HEENT: No visual or hearing changes, no oral lesions. CARDIOVASCULAR: No chest pain, chest pressure or chest discomfort. No palpitations, baseline 1+ nonpitting edema. RESPIRATORY: Stable shortness of breath, no hemptysis GASTROINTESTINAL: No dysphagia, nausea, vomiting or diarrhea. No abdominal pain,melena, hematochezia. GENITOURINARY: No dysuria, urinary frequency or urgency. NEUROLOGICAL: No headache, dizziness, syncope, stable numbness or tingling in the extremities. MUSCULOSKELETAL: Positive for chronic joint pain, stable. Positive for left chest wall pain, from shingles. Positive for left index finger paronychia on antibiotics and improving. [facility] - Medical History Medical History: Medical History (Last Reviewed 11/06/19 @ 09:26 by Rhonda Ramos RN) Diabetes mellitus Hx of intestinal obstruction Hyperlipemia Hypertension Hypothyroid - Surgical History Surgical History: Surgical History (Last Reviewed 11/06/19 @ 09:26 by Rhonda Ramos RN) H/O heart artery stent History of hernia surgery History of orthopedic surgery S/P gastric surgery - Social History Smoking Status: Former smoker Tobacco Type: cigarettes Substance Use Type: None Home Medications & Allergies Allergies diltiazem Adverse Reaction (Verified 11/06/19 09:27) Palpitations lisinopril Adverse Reaction (Verified 11/06/19 09:27) Swelling of Lip/Tongue/Throat morphine Adverse Reaction (Verified 11/06/19 09:27) Palpitations Home Medications Xarelto 10 mg PO DAILY 12/24/16 [History Confirmed 11/06/19] albuterol sulfate 1 puff INHALATION Q4-6H PRN 12/24/16 [History Confirmed 11/06/19] allopurinol 300 mg PO DAILY 12/24/16 [History Confirmed 11/06/19] atenolol 50 mg PO DAILY 12/24/16 [History Confirmed 11/06/19] bumetanide 2 mg PO DAILY 12/24/16 [History Confirmed 11/06/19] ferrous sulfate 325 mg PO BID 12/24/16 [History Confirmed 11/06/19] magnesium oxide 400 mg PO BID 12/24/16 [History Confirmed 11/06/19] metolazone 5 mg PO DAILY 12/24/16 [History Confirmed 11/06/19] multivitamin [Multi-Day] 1 tab PO DAILY 12/24/16 [History Confirmed 11/06/19] nitroglycerin [Nitrostat] 0.4 mg SUBLINGUAL Q5-15M PRN 12/24/16 [History Confirmed 11/06/19] omeprazole 40 mg PO DAILY 12/24/16 [History Confirmed 11/06/19] potassium chloride 160 meq PO QAM 12/24/16 [History Confirmed 11/06/19] pregabalin [Lyrica] 150 mg PO QID 12/24/16 [History Confirmed 11/06/19] aspirin 81 mg PO DAILY 04/30/17 [History Confirmed 11/06/19] levothyroxine 100 mcg PO DAILY 07/30/17 [History Confirmed 11/06/19] potassium chloride 160 meq PO QPM 02/04/18 [History Confirmed 11/06/19] gabapentin 600 mg PO BID 07/22/18 [History Confirmed 11/06/19] glyburide 2.5 mg PO DAILY 30 Days #30 tab 07/28/19 [Rx Confirmed 11/06/19] tramadol 50 mg PO Q6H PRN 07/28/19 [History Confirmed 11/06/19] Objective - Height/Weight Height/Weight: Height 6 ft Weight 121.336 kg - Vital Signs Vital Signs: 11/12/19 14:39 Temperature 97.0 F L Pulse Rate [Right Brachial] 67 Respiratory Rate 20 Blood Pressure [Right Arm] 120/69 02 Sat by Pulse Oximetry 98 - Pain Generalized Pain Intensity: 5 - Emotional Needs Assessment Emotional Needs Assessment: Emotional Needs Identified? No Distress Screening Total 0 - ECOG Performance Status ECOG Score: 1 Physical Exam Narrative: GENERAL APPEARANCE: In no acute distress. Obese. HEENT: Moist and clear. LUNGS: Clear to auscultation bilaterally, no rales, rhonchi, or crackles. CARDIOVASCULAR: S1 and S2, regular rate and rhythm, no murmurs, gallops, rubs. ABDOMEN: Soft, nontender, obese. No hepatosplenomegaly. No mass palpated. EXTREMITIES: 1+edema, pitting, in b/l LE, no calf tenderness. NEUROLOGIC: Grossly intact. Unchanged sensory deficits related to chronic neuropathy bilateral lower extremities. Results - Labs Labs: Diagram of Most Recent CBC and CMP 11/10/19 07:55 11/10/19 07:55 Labs - Last 7 Days 11/10/19 07:55: PHA Creatinine Clear 72.61, Sodium 137, Potassium 3.8, Chloride 101, Carbon Dioxide 27.0, BUN 36 H, Creatinine 1.43 H, Est GFR ( Amer) > 60, Est GFR (Non-Af Amer) 50, Glucose 204 H, Calcium 10.7 H, Total Bilirubin 0.6, AST 28, ALT 25, Alkaline Phosphatase 107 H, Total Protein 6.2, Albumin 3.5,Globulin 2.7, Albumin/Globulin Ratio 1.3 11/10/19 07:55: WBC 6.2, Corrected WBC 6.2, RBC 4.75, Hgb 13.3, Hct 40.1, MCV 84.4, MCH 28.1, MCHC 33.3, RDW 15.4 H, Plt Count 217, MPV 7.6, Neut % (Auto) 71.2, Lymph % (Auto) 12.0, Sanders % (Auto) 12.1, Eos % (Auto) 4.0, Baso % (Auto) 0.7, Neut # (Auto) 4.4, Lymph # (Auto) 0.7 L, Sanders # (Auto) 0.7, Eos # (Auto) 0.2, Baso # (Auto) 0.0, Nucleated RBC % (auto) 0.1 Assessment and Plan (1) Hypercalcemia Started in 2019, he is not taking calcium supplement. -Vitamin D was low, and PTH level was 77, on the higher end, no signs of active lymphoma. -He was referred to Endocrinology in 2019, no further work up done. He did not follow up further. Ca now 10.7, will update PTH, Vitamin D, will also check SIFE, K/L ratio to rule out plasma dyscrasia. -He will then make an appointment with Dr. Li in 2 weeks to discuss furtherplan. He knows to call me if questions or concerns arise. (2) DLBCL (diffuse large B cell lymphoma) Qualifiers: Lymphoma site: extranodal excluding spleen and other solid organs QualifiedCode(s): C83.39 - Diffuse large B-cell lymphoma, extranodal and solid organ sites DLBCL, non-germinal center subtype, involving lungs, small bowel, and right iliac bone. R-IPI score 3 (estimated 4Y PFS 53% and OS 55%). s/p RCHOPx6 cycles. -At this moment, no concerning symptoms to suggest lymphoma recurrence. Slightlyelevated Alk phos could be from increased bone turnover secondary to hyperparathyroidism, plan detailed as above. -I will see him back in 6 months with CBC, CMP, he knows to call if questions orconcerns arise. (3) Diabetes 1.5, managed as type 2 (4) Examination of participant in clinical trial (5) CHF (congestive heart failure), NYHA class I (6) Peripheral neuropathy (7) A-fib Qualifiers: Atrial fibrillation type: chronic (8) Obesity (BMI 35.0-39.9 without comorbidity) (9) CKD (chronic kidney disease) stage 3, GFR 30-59 ml/min (10) Joint pain - Chemo Plan Goal of Treatment: Curative - Time with Patient Total Time Spent with Patient: 30 min Coordination of Care & Counseling Time: Greater than 50% of time spent with patient was for coordination of care (as documented) and [id number] counseling of patient and/or family. Dictated By: Brendan Bolaños MD DD/ [id number] Signed By: <Electronically signed by Brendan Bolaños MD> 11/12/19 [address] [facility] Work Phone: [phone] Progress note Author Brendan Bolaños [facility] July 28, 2019 2:56pm Note Date/Time July 28, 2019 11:12 am [facility] at [address] [address] Hem/Onc Follow Up Note - OP Signed Patient: Sandra Potter MR#: [id number] : 1955 Acct:[id number] Age/Sex: 64 / M Type: REG RCR Copies to: Francisco Li DO~ Subjective Date/Time of Service: Date of Service: 07/28/2019 Time of Service: 11:12 Chief Complaint: 6 month follow up appt recheck of lab work HPI: Mr. Potter presents to a scheduled follow up. It was initially converted to a telephone encounter, but he was noted to have hyperglycemia on blood work, BLS was 532. I called him last night, he was asymptomatic. The decision was made to follow up in the office today with a repeat BMP. He reports taking steroids on and off in the last couple of months for COPD exacerbation. His CPAP machine is not working very well. He otherwise denies fever, chills, lymphadenopathy. He has lost some weight after diet control. He denies polyuria, polydipsia. He denies abdominal pain, melena, hematochezia, or gross hematuria. Numbness or tingling stable. PAST MEDICAL HISTORY: CKD III (GFR ion 50s), CHF 2/2 hypertrophy (LVEF 70%), andbaseline grade 1 diabetic neuropathy involving feet. History of DVT after gastric bypass, off anticoagulation. A-fib. PAST SURGICAL HISTORY: Coronary artery s/p stents; Hernia repair; Colon perforation status post repair in 2009; Right knee arthroplasty in ; Sleevegastrectomy in 2011 at [facility]. FAMILY HISTORY: One brother, one son and no cancer. One paternal aunt had unknown type of cancer in her age of 70s. 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 Former smoker with a 100 pack-year smoking history (3 packs perday for 35 years), quit 03/11/2007. Drinking four beers a day four days a week. Denies illicit drug abuse. - Summary of Therapies Summary of Therapies: ECOG 1412: Randomized Phase II Open Label Study of Lenalidomide R-CHOP (R2CHOP) vs RCHOP (Rituximab, Cyclophosphamide, Doxorubicin, Vincristine and Prednisone) in Patients with Newly Diagnosed Diffuse Large B Cell Lymphoma - Randomized to control arm, with standard chemotherapy RCHOP, 08/02/15-11/22/15, total of 6 cycles. - Prophylactic LP with IT MTX (elevated LDH, multiple sites of extranodal diseases), total 4 doses. Exit PET/CT scan showed complete remission. - Course complicated by atypical pneumonia during the third week after cycle 3, hospitalized between 09/29-10/03, received IV vancomycin, Zosyn and Levaquin, discharged on a week course of Augmentin and Levaquin. ROS Details: All systems reviewed & no additional complaints except as documented Subjective/ROS - Narrative: CONSTITUTIONAL: Gaining weight, no fever, chills, weakness or fatigue. HEENT: No visual or hearing changes, no oral lesions. CARDIOVASCULAR: No chest pain, chest pressure or chest discomfort. No palpitations, baseline 1+ nonpitting edema. RESPIRATORY: Stable shortness of breath, no hemptysis GASTROINTESTINAL: No dysphagia, nausea, vomiting or diarrhea. No abdominal pain,melena, hematochezia. GENITOURINARY: No dysuria, urinary frequency or urgency. NEUROLOGICAL: No headache, dizziness, syncope, stable numbness or tingling in the extremities. MUSCULOSKELETAL: Positive for chronic joint pain, stable. Positive for left chest wall pain, from shingles. Positive for left index finger paronychia on antibiotics and improving. [facility] - Medical History Medical History: Medical History (Last Updated 03/13/19 @ 16:59 by Carolyn Schaefer RN) Diabetes mellitus Hx of intestinal obstruction Hyperlipemia Hypertension Hypothyroid - Surgical History Surgical History: Surgical History (Last Updated 03/13/19 @ 16:59 by Carolyn Schaefer RN) H/O heart artery stent History of hernia surgery History of orthopedic surgery S/P gastric surgery - Social History Smoking Status: Former smoker Substance Use Type: Alcohol Home Medications & Allergies Allergies diltiazem Adverse Reaction (Verified 03/13/19 16:57) Palpitations lisinopril Adverse Reaction (Verified 03/13/19 16:57) Swelling of Lip/Tongue/Throat morphine Adverse Reaction (Verified 03/13/19 16:57) Palpitations Home Medications Xarelto 10 mg PO DAILY 12/24/16 [History Confirmed 07/28/19] albuterol sulfate 1 puff INHALATION Q4-6H PRN 12/24/16 [History Confirmed 07/28/19] allopurinol 300 mg PO DAILY 12/24/16 [History Confirmed 07/28/19] atenolol 50 mg PO DAILY 12/24/16 [History Confirmed 07/28/19] bumetanide 2 mg PO DAILY 12/24/16 [History Confirmed 07/28/19] ferrous sulfate 325 mg PO BID 12/24/16 [History Confirmed 07/28/19] magnesium oxide 400 mg PO BID 12/24/16 [History Confirmed 07/28/19] metolazone 5 mg PO DAILY 12/24/16 [History Confirmed 07/28/19] multivitamin [Multi-Day] 1 tab PO DAILY 12/24/16 [History Confirmed 07/28/19] nitroglycerin [Nitrostat] 0.4 mg SUBLINGUAL Q5-15M PRN 12/24/16 [History Confirmed 07/28/19] omeprazole 40 mg PO DAILY 12/24/16 [History Confirmed 07/28/19] potassium chloride 160 meq PO QAM 12/24/16 [History Confirmed 07/28/19] pregabalin [Lyrica] 150 mg PO QID 12/24/16 [History Confirmed 07/28/19] atorvastatin 10 mg PO QHS 02/15/17 [History Confirmed 07/28/19] aspirin 81 mg PO DAILY 04/30/17 [History Confirmed 07/28/19] levothyroxine 100 mcg PO DAILY 07/30/17 [History Confirmed 07/28/19] potassium chloride 160 meq PO QPM 02/04/18 [History Confirmed 07/28/19] gabapentin 600 mg PO BID 07/22/18 [History Confirmed 07/28/19] glyburide 2.5 mg PO DAILY 30 Days #30 tab 07/28/19 [Rx] tramadol 50 mg PO Q6H PRN 07/28/19 [History Confirmed 07/28/19] Objective - Height/Weight Height/Weight: Height 6 ft Weight 123.2 kg - Vital Signs Vital Signs: 07/28/19 10:39 Temperature 96.7 F L Pulse Rate [Right Brachial] 76 Respiratory Rate 20 Blood Pressure [Right Arm] 139/83 02 Sat by Pulse Oximetry 96 - Pain Generalized Pain Intensity: 5 - Emotional Needs Assessment Emotional Needs Assessment: Emotional Needs Identified? No Distress Screening Total 0 - ECOG Performance Status ECOG Score: 1 Physical Exam Narrative: GENERAL APPEARANCE: In no acute distress. Obese. HEENT: Moist and clear. LUNGS: Clear to auscultation bilaterally, no rales, rhonchi, or crackles. CARDIOVASCULAR: S1 and S2, regular rate and rhythm, no murmurs, gallops, rubs. ABDOMEN: Soft, nontender, obese. No hepatosplenomegaly. No mass palpated. EXTREMITIES: 1+edema, pitting, in b/l LE, no calf tenderness. NEUROLOGIC: Grossly intact. Unchanged sensory deficits related to chronic neuropathy bilateral lower extremities. Results - Labs Labs: Diagram of Most Recent CBC and CMP 01/24/19 11:48 07/28/19 10:34 Labs - Last 7 Days 07/28/19 10:34: PHA Creatinine Clear [id number], Sodium 134 L, Potassium 3.6,Chloride 97, Carbon Dioxide 25.1, BUN 31 H, Creatinine 1.27, Est GFR ( Amer) > 60, Est GFR (Non-Af Amer) 57, Glucose 321 H D, Calcium 10.3 H Assessment and Plan (1) DLBCL (diffuse large B cell lymphoma) Qualifiers: Lymphoma site: extranodal excluding spleen and other solid organs QualifiedCode(s): C83.39 - Diffuse large B-cell lymphoma, extranodal and solid organ sites DLBCL, non-germinal center subtype, involving lungs, small bowel, and right iliac bone. R-IPI score 3 (estimated 4Y PFS 53% and OS 55%). s/p RCHOPx6 cycles. -At this moment, no concerning symptoms to suggest lymphoma recurrence. Slightlyelevated LDH and Alk phos could be due to uncontrolled diabetes, plan to see back in 3 months with CBC, CMP, if doing better, plan to see next May with CBC, CMP, LDH. -He knows to call if questions or concerns arise. (2) Diabetes 1.5, managed as type 2 BLS 321 today, looking back, his BLS was 344 on 03/13/2019. -Would resume Glyburide at 2.5mg daily. He is instructed to avoid it if he has to fast. -Referral to Dr. Li made to reestablish primary care, and for diabetes management. (3) Examination of participant in clinical trial Clinical trial follow-up for E1412. -Grade 1 elevated Alk phos and LDH, unrelated to lymphoma. (4) CHF (congestive heart failure), NYHA class I Grade 1, due to hypertrophy. Stable -Continue same medication of diuresis per Cardiology (Dr. Burgess). (5) Peripheral neuropathy From diabetes. -He is currently taking Lyrica (increased to 300mg twice daily) for restless legsyndrome/peripheral neuropathy. (6) A-fib Qualifiers: Atrial fibrillation type: chronic Following Cardiology on chronic anticoagulation. (7) Obesity (BMI 35.0-39.9 without comorbidity) (8) CKD (chronic kidney disease) stage 3, GFR 30-59 ml/min (9) Joint pain (10) Hypercalcemia - Chemo Plan Goal of Treatment: Curative - Time with Patient Total Time Spent with Patient: 45 min Coordination of Care & Counseling Time: Greater than 50% of time spent with patient was for coordination of care (as documented) and [id number] counseling of patient and/or family. Dictated By: Brendan Bolaños MD DD/ [id number] Signed By: <Electronically signed by Brendan Bolaños MD> 07/28/19 [address] [facility] Work Phone: [phone] 998-203711-12-2019 Progress note Author Brendan Bolaños [facility] January 27, 2019 10:13am Note Date/Time January 27, 2019 9:57am [facility] [place] [id number] Hem/Onc Follow Up Note - OP Signed Patient: Sandra Potter MR#: [id number] : 1955 Acct:[id number] Age/Sex: 63 / M Type: REG RCR Copies to: Francisco Li DO~ Subjective Date/Time of Service: Date of Service: 01/27/2019 Time of Service: 09:55 Chief Complaint: 5 month follow up appt review lab work HPI: Mr. Potter presents to a scheduled follow up. He reports cough associated with hemoptysis on and off, a little bit worse in the past 2 weeks. He denies recent upper respiratory tract infection, fever, chills, or weight loss. He denies abdominal pain, melena, hematochezia, or gross hematuria. Numbness or tingling stable. PAST MEDICAL HISTORY: CKD III (GFR ion 50s), CHF 2/2 hypertrophy (LVEF 70%), andbaseline grade 1 diabetic neuropathy involving feet. History of DVT after gastric bypass, off anticoagulation. A-fib. PAST SURGICAL HISTORY: Coronary artery s/p stents; Hernia repair; Colon perforation status post repair in 2009; Right knee arthroplasty in ; Sleevegastrectomy in 2011 at [facility]. FAMILY HISTORY: One brother, one son and no cancer. One paternal aunt had unknown type of cancer in her age of 70s. 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 Former smoker with a 100 pack-year smoking history (3 packs perday for 35 years), quit 03/11/2007. Drinking four beers a day four days a week. Denies illicit drug abuse. - Summary of Therapies Summary of Therapies: ECOG 1412: Randomized Phase II Open Label Study of Lenalidomide R-CHOP (R2CHOP) vs RCHOP (Rituximab, Cyclophosphamide, Doxorubicin, Vincristine and Prednisone) in Patients with Newly Diagnosed Diffuse Large B Cell Lymphoma - Randomized to control arm, with standard chemotherapy RCHOP, 08/02/15-11/22/15, total of 6 cycles. - Prophylactic LP with IT MTX (elevated LDH, multiple sites of extranodal diseases), total 4 doses. Exit PET/CT scan showed complete remission. - Course complicated by atypical pneumonia during the third week after cycle 3, hospitalized between 09/29-10/03, received IV vancomycin, Zosyn and Levaquin, discharged on a week course of Augmentin and Levaquin. ROS Details: All systems reviewed & no additional complaints except as documented Subjective/ROS - Narrative: CONSTITUTIONAL: Gaining weight, no fever, chills, weakness or fatigue. HEENT: No visual or hearing changes, no oral lesions. CARDIOVASCULAR: No chest pain, chest pressure or chest discomfort. No palpitations, baseline 1+ nonpitting edema. RESPIRATORY: No shortness of breath, Positive for cough and hemoptysis per HPI. GASTROINTESTINAL: No dysphagia, nausea, vomiting or diarrhea. No abdominal pain,melena, hematochezia. GENITOURINARY: No dysuria, urinary frequency or urgency. NEUROLOGICAL: No headache, dizziness, syncope, stable numbness or tingling in the extremities. MUSCULOSKELETAL: Positive for chronic joint pain, stable. Positive for left chest wall pain, from shingles. Positive for left index finger paronychia on antibiotics and improving. PMFSH - Social History Smoking Status: Former smoker Substance Use Type: Alcohol Home Medications & Allergies Allergies diltiazem Adverse Reaction (Verified 12/05/16 10:41) Palpitations lisinopril Adverse Reaction (Verified 12/05/16 10:41) Swelling of Lip/Tongue/Throat morphine Adverse Reaction (Verified 12/05/16 10:41) Palpitations Home Medications Xarelto 10 mg PO DAILY 12/24/16 [History Confirmed 01/27/19] albuterol sulfate 1 puff INHALATION Q4-6H PRN 12/24/16 [History Confirmed 01/27/19] allopurinol 300 mg PO DAILY 12/24/16 [History Confirmed 01/27/19] atenolol 50 mg PO QHS 12/24/16 [History Confirmed 01/27/19] bumetanide 2 mg PO DAILY 12/24/16 [History Confirmed 01/27/19] ferrous sulfate 325 mg PO BID 12/24/16 [History Confirmed 01/27/19] magnesium oxide 400 mg PO BID 12/24/16 [History Confirmed 01/27/19] metolazone 2.5 mg PO DAILY 12/24/16 [History Confirmed 01/27/19] multivitamin [Multi-Day] 1 tab PO DAILY 12/24/16 [History Confirmed 01/27/19] nitroglycerin [Nitrostat] 0.4 mg SUBLINGUAL Q5-15M PRN 12/24/16 [History Confirmed 01/27/19] omeprazole 40 mg PO DAILY 12/24/16 [History Confirmed 01/27/19] potassium chloride 80 meq PO QAM 12/24/16 [History Confirmed 01/27/19] pregabalin [Lyrica] 150 mg PO QID 12/24/16 [History Confirmed 01/27/19] atorvastatin 10 mg PO QHS 02/15/17 [History Confirmed 01/27/19] aspirin 325 mg PO DAILY 04/30/17 [History Confirmed 01/27/19] levothyroxine 100 mcg PO DAILY 07/30/17 [History Confirmed 01/27/19] potassium chloride 80 meq PO QPM 02/04/18 [History Confirmed 01/27/19] gabapentin 600 mg PO BID 07/22/18 [History Confirmed 01/27/19] Objective - Height/Weight Height/Weight: Height 6 ft Weight 130.5 kg - Vital Signs Vital Signs: 01/27/19 09:22 Temperature 98 F Pulse Rate [Right Brachial] 61 Respiratory Rate 20 Blood Pressure [Right Arm] 138/77 02 Sat by Pulse Oximetry 95 - Pain Generalized Pain Intensity: 5 - Emotional Needs Assessment Emotional Needs Assessment: Emotional Needs Identified? Yes Distress Screening Total 3 - ECOG Performance Status ECOG Score: 1 Physical Exam Narrative: GENERAL APPEARANCE: In no acute distress. Obese. HEENT: Moist and clear. LUNGS: Clear to auscultation bilaterally, no rales, rhonchi, or crackles. CARDIOVASCULAR: S1 and S2, regular rate and rhythm, no murmurs, gallops, rubs. ABDOMEN: Soft, nontender, obese. No hepatosplenomegaly. No mass palpated. EXTREMITIES: 1+edema, pitting, in b/l LE, no calf tenderness. NEUROLOGIC: Grossly intact. Unchanged sensory deficits related to chronic neuropathy bilateral lower extremities. Results - Labs Labs: Diagram of Most Recent CBC and CMP 01/24/19 11:48 01/24/19 11:48 Labs - Last 7 Days 01/24/19 11:48: PHA Creatinine Clear [id number], Sodium 142, Potassium 4.4, Chloride 101, Carbon Dioxide 31.3 H, BUN 36 H, Creatinine 1.77 H, Est GFR ( Amer) 48, Est GFR (Non-Af Amer) 39, Glucose 125 H, Calcium 10.2, Total Bilirubin 0.9, AST 28, ALT 25, Alkaline Phosphatase 65, Lactate Dehydrogenase 178, Total Protein 6.5, Albumin 3.8, Globulin 2.7, Albumin/Globulin Ratio 1.4 01/24/19 11:48: WBC 5.2, Corrected WBC 5.2, RBC 5.01, Hgb 14.7, Hct 43.8, MCV 87.4, MCH 29.2, MCHC 33.4, RDW 15.6 H, Plt Count 171, MPV 8.1, Neut % (Auto) 63.0, Lymph % (Auto) 15.6, Sanders % (Auto) 15.8, Eos % (Auto) 4.5, Baso % (Auto) 1.1, Neut # (Auto) 3.3, Lymph # (Auto) 0.8 L, Sanders # (Auto) 0.8, Eos # (Auto) 0.2, Baso # (Auto) 0.1, Nucleated RBC % (auto) 0.1 Assessment and Plan (1) DLBCL (diffuse large B cell lymphoma) Qualifiers: Lymphoma site: extranodal excluding spleen and other solid organs QualifiedCode(s): C83.39 - Diffuse large B-cell lymphoma, extranodal and solid organ sites DLBCL, non-germinal center subtype, involving lungs, small bowel, and right iliac bone. R-IPI score 3 (estimated 4Y PFS 53% and OS 55%). s/p RCHOPx6 cycles. -At this moment, no concern of lymphoma recurrence, plan to see back in 6 monthswith CBC, CMP, and LDH. -He knows to call if questions or concerns arise. (2) Examination of participant in clinical trial Clinical trial follow-up paperwork completed for E1412. (3) Hemoptysis Hemoptysis on and off, chronic for at least 7 months, CT chest in 08/2018 showed no evidence of lymphoma recurrence, likely due to chronic bronchitis in the setting of anticoagulation. -He does not see PCP any more. Will refer to Pulmonology for an evaluation. -Last PFT 01/31/18 SPIROMETRY: Forced vital capacity is 4.23 liters, which is 86% predicted. FEV1is 2.68 liters, which is 72% predicted. FEV1/FVC ratio is 63%. LUNG VOLUMES: Total lung capacity is 6.15 liters, which is 84% predicted. Residual volume is 1.89 liters, which is 77% predicted. RV/TLC ratio is 31%. DIFFUSION CAPACITY: His DLCO is 14.8 mL/min/mmHg, which is 51% predicted. Single breath total lung capacity is 4.91 liters, which is 67% predicted. His DLCO does correct to 3.02 mm/min/mmHg/L when adjusted for alveolar ventilation; this is 72% predicted. SUMMARY: This is a 62-year-old male who is a former smoker, who is referred forpulmonary function test with a diagnosis of high risk medication use and paroxysmal atrial fibrillation. Comparison is made to his prior set in 07/2017. There is evidence of mild obstructive ventilatory defect on this set of pulmonary function tests. There is no evidence of concomitant restrictive ventilatory defect. There is no evidence of air trapping or hyperinflation. His diffusion capacity is slightly diminished; however, it does correct when adjusted for alveolar ventilation. When compared to his prior set in 07/2017, there has been no significant change in the spirometry, lung volumes or diffusion capacity. Clinical correlation is recommended. (4) Hypercalcemia 10.2<-10.3-<9.9-<10.5, he is not taking calcium supplement. -Vitamin D was low, and PTH level was 77, on the higher end, no active lymphoma. -Refer to Endocrinology for an evaluation of hyperparathyroidism, he agreed to proceed. (5) CHF (congestive heart failure), NYHA class I Grade 1, due to hypertrophy. Stable -Continue same medication of diuresis per Cardiology (Dr. Burgess). (6) Obesity (BMI 35.0-39.9 without comorbidity) Discussed at length the importance of weight loss. (7) Joint pain (8) Peripheral neuropathy (9) A-fib Qualifiers: Atrial fibrillation type: chronic (10) CKD (chronic kidney disease) stage 3, GFR 30-59 ml/min - Chemo Plan Goal of Treatment: Curative - Time with Patient Total Time Spent with Patient: 30 min Coordination of Care & Counseling Time: Greater than 50% of time spent with patient was for coordination of care (as documented) and [id number] counseling of patient and/or family. Dictated By: Brendan Bolaños MD DD/ [id number] Signed By: <Electronically signed by Brendan Bolaños MD> 01/27/19 [address] [facility] Work Phone: [phone] Progress note Author Brendan Bolaños [facility] August 27, 2018 9:42am Note Date/Time August 27, 2018 9:37 am [place] [address] Hem/Onc Follow Up Note - OP Signed Patient: Sandra Potter MR#: [id number] : 1955 Acct:[id number] Age/Sex: 63 / M Type: REG RCR Copies to: GuillermoFrancisco DO~ Subjective Date/Time of Service: Date of Service: 08/27/2018 Time of Service: 09:37 Chief Complaint: Follow up appt to review CT scan - Diagnosis DIAGNOSIS: 1. Diffuse large B-cell lymphoma, non germinal center subtype diagnosed by CT - guided lung biopsy 06/28/15, involving lungs, small bowel, and right iliac bone. R-IPI score 3 (estimated 4Y PFS 53% and OS 55%). -The tumor is CD5 positive with high Ki-67 index of 95%, LDH 1400, R-IPI 3, which represents activated B-cell phenotype. +BCL6 atypical rearrangement, negative for MYC and BCL2 translocation. PAST MEDICAL HISTORY: CKD III (GFR ion 50s), CHF 2/2 hypertrophy (LVEF 70%), andbaseline grade 1 diabetic neuropathy involving feet. History of DVT after gastric bypass, off anticoagulation. A-fib. PAST SURGICAL HISTORY: Coronary artery s/p stents; Hernia repair; Colon perforation status post repair in 2009; Right knee arthroplasty in ; Sleevegastrectomy in 2011 at [facility]. FAMILY HISTORY: One brother, one son and no cancer. One paternal aunt had unknown type of cancer in her age of 70s. 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 Former smoker with a 100 pack-year smoking history (3 packs perday for 35 years), quit 03/11/2007. Drinking four beers a day four days a week. Denies illicit drug abuse. HPI: Mr. Potter presents to discuss scan results and follow up hemoptysis. He reports hemoptysis slowed down a little bit, twice last week. With dark blood-tinged phlegm. He denies recent upper respiratory tract infection, fever, chills, or weight loss. He denies abdominal pain, melena, hematochezia, or gross hematuria.Numbness or tingling stable. - Summary of Therapies Summary of Therapies: ECOG 1412: Randomized Phase II Open Label Study of Lenalidomide R-CHOP (R2CHOP) vs RCHOP (Rituximab, Cyclophosphamide, Doxorubicin, Vincristine and Prednisone) in Patients with Newly Diagnosed Diffuse Large B Cell Lymphoma - Randomized to control arm, with standard chemotherapy RCHOP, 08/02/15-11/22/15, total of 6 cycles. - Prophylactic LP with IT MTX (elevated LDH, multiple sites of extranodal diseases), total 4 doses. Exit PET/CT scan showed complete remission. - Course complicated by atypical pneumonia during the third week after cycle 3, hospitalized between 09/29-10/03, received IV vancomycin, Zosyn and Levaquin, discharged on a week course of Augmentin and Levaquin. ROS Details: All systems reviewed & no additional complaints except as documented PMFSH - Social History Smoking Status: Former smoker Substance Use Type: Alcohol Home Medications & Allergies Allergies Allergy/AdvReac Type Severity Reaction Status Date / Time diltiazem AdvReac Palpitation Verified 12/05/16 10:41 s lisinopril AdvReac Swelling Verified 12/05/16 10:41 of Lip/Tongue/Throat morphine AdvReac Palpitation Verified 12/05/16 10:41 s Home Medications Medication Instructions Recorded Confirmed Type Lyrica 150 mg PO QID 12/24/16 08/27/18 History Xarelto 20 mg PO DAILY 12/24/16 08/27/18 History albuterol sulfate 1 puff INHALATION Q4-6H PRN 12/24/16 08/27/18 History allopurinol 300 mg PO DAILY 12/24/16 08/27/18 History atenolol 50 mg PO QHS 12/24/16 08/27/18 History bumetanide 2 mg PO DAILY 12/24/16 08/27/18 History ferrous sulfate 325 mg PO BID 12/24/16 08/27/18 History magnesium oxide 400 mg PO BID 12/24/16 08/27/18 History metolazone 2.5 mg PO DAILY 12/24/16 08/27/18 History multivitamin [Multi-Day] 1 tab PO DAILY 12/24/16 08/27/18 History nitroglycerin [Nitrostat] 0.4 mg SUBLINGUAL Q5-15M PRN 12/24/16 08/27/18 History omeprazole 40 mg PO DAILY 12/24/16 08/27/18 History potassium chloride 80 meq PO QAM 12/24/16 08/27/18 History alprazolam [Xanax] 0.5 mg PO QHS 01/22/17 08/27/18 History atorvastatin 10 mg PO QHS 02/15/17 08/27/18 History aspirin 325 mg PO DAILY 04/30/17 08/27/18 History levothyroxine 100 mcg PO DAILY 07/30/17 08/27/18 History potassium chloride 80 meq PO QPM 02/04/18 08/27/18 History gabapentin 300 mg PO BID 07/22/18 08/27/18 History Objective - Height/Weight Height/Weight: Height 6 ft Weight 133.4 kg - Vital Signs Vital Signs: 08/27/18 09:09 Temperature 97.7 F Pulse Rate [Right Brachial] 68 Respiratory Rate 20 Blood Pressure [Right Arm] 140/72 02 Sat by Pulse Oximetry 97 - Pain Generalized Pain Intensity: 5 - Emotional Needs Assessment Emotional Needs Assessment: Emotional Needs Identified? No Distress Screening Total 0 - ECOG Performance Status ECOG Score: 1 Results - Labs Labs: Diagram of Most Recent CBC and CMP 08/13/18 13:50 08/13/18 13:50 - Impressions FINDINGS: Lower neck: Thyroid gland within normal limits, no supraclavicle adenopathy. Vessels: Atherosclerotic changes are noted in the thoracic aorta and throughout the coronary arteries. There is calcification at the mitral valve annulus. Mediastinum and Salome: There is slight interval increase in size of a subcarinal lymph node now measuring up to 1 cm in short axis. Heart: Normal in size. No pericardial effusion. Airways: Within normal limits Lungs: Increasing diffuse interstitial prominence is noted throughout. There isincreased parenchymal density/groundglass attenuation in the lower lobes bilaterally extending into the posterior cost phrenic sulci which is new. Pleura: Within normal limits. Chest Wall: Within normal limits. Upper Abdomen: Periportal lymph nodes are redemonstrated without significant interval change in size. Bones: Degenerative changes are noted in the right shoulder and within the thoracic spine. IMPRESSION: Slight interval increase in size of a subcarinal lymph node now measuring 1 cm in short axis. No significant interval change in mediastinal or periportal lymph nodes otherwise. Diffuse interval increase in interstitial prominence with groundglass attenuation predominantly in the lung bases. This may represent volume overloadwith developing edema. - Imaging CT scan - chest Status: image reviewed by me Assessment and Plan (1) Hemoptysis Hemoptysis is improving, CT scan results discussed, no evidence of lymphoma recurrence. Likely represents bronchitis in the setting of anticoagulation. -We discussed the empirical course of steroids with Medrol Dosepak, he will favored to observe for now. I instructed him to call if the hemoptysis does notresolve, in that case, we will trial a course of Medrol dose Pack before he seesPCP. -Otherwise we will see him back in 5 months per clinical trial scheduled (2) DLBCL (diffuse large B cell lymphoma) Qualifiers: Lymphoma site: extranodal excluding spleen and other solid organs QualifiedCode(s): C83.39 - Diffuse large B-cell lymphoma, extranodal and solid organ sites DLBCL, non-germinal center subtype, involving lungs, small bowel, and right iliac bone. R-IPI score 3 (estimated 4Y PFS 53% and OS 55%). s/p RCHOPx6 cycles. -At this moment, no concern of lymphoma recurrence, 1 cm mediastinal lymph nodesbenign looking, plan to see back in 5 months with CBC, CMP, and LDH. -He knows to call if questions or concerns arise. (3) Hypercalcemia 10.3-<9.9-<10.5, he is not taking calcium supplement. -Vitamin D was low, and PTH level was normal, CT chest did not show evidence of recurrent lymphoma. (4) Joint pain (5) Peripheral neuropathy (6) CHF (congestive heart failure), NYHA class I (7) A-fib Qualifiers: Atrial fibrillation type: chronic Qualified Code(s): I48.2 - Chronic atrialfibrillation (8) CKD (chronic kidney disease) stage 3, GFR 30-59 ml/min (9) Examination of participant in clinical trial - Chemo Plan Goal of Treatment: Curative - Time with Patient Total Time Spent with Patient: 30 min Coordination of Care & Counseling Time: Greater than 50% of time spent with patient was for coordination of care (as documented) and [id number] counseling of patient and/or family. Dictated By: Brendan Bolaños MD DD/ [id number] Signed By: <Electronically signed by Brendan Bolaños MD> 08/27/18 [address] [facility] Work Phone: [phone] 311-811506-04-2019 Progress note Author Brendan Bolaños [facility] August 19, 2018 10:20am Note Date/Time August 19, 2018 10:16 am [facility] [place] [id number] Hem/Onc Follow Up Note - OP Signed Patient: Sandra Potter MR#: [id number] : 1955 Acct:[id number] Age/Sex: 63 / M Type: REG RCR Copies to: Francisco Li DO~ Subjective Date/Time of Service: Date of Service: 08/19/2018 Time of Service: 10:14 Chief Complaint: Follow up appt to assess symptoms continues to cough up blood - Diagnosis DIAGNOSIS: 1. Diffuse large B-cell lymphoma, non germinal center subtype diagnosed by CT - guided lung biopsy 06/28/15, involving lungs, small bowel, and right iliac bone. R-IPI score 3 (estimated 4Y PFS 53% and OS 55%). -The tumor is CD5 positive with high Ki-67 index of 95%, LDH 1400, R-IPI 3, which represents activated B-cell phenotype. +BCL6 atypical rearrangement, negative for MYC and BCL2 translocation. PAST MEDICAL HISTORY: CKD III (GFR ion 50s), CHF 2/2 hypertrophy (LVEF 70%), andbaseline grade 1 diabetic neuropathy involving feet. History of DVT after gastric bypass, off anticoagulation. A-fib. PAST SURGICAL HISTORY: Coronary artery s/p stents; Hernia repair; Colon perforation status post repair in 2009; Right knee arthroplasty in ; Sleevegastrectomy in 2011 at [facility]. FAMILY HISTORY: One brother, one son and no cancer. One paternal aunt had unknown type of cancer in her age of 70s. 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 Former smoker with a 100 pack-year smoking history (3 packs perday for 35 years), quit 03/11/2007. Drinking four beers a day four days a week. Denies illicit drug abuse. HPI: Mr. Potter presents for an additional follow up for hemoptysis. He developed mildhemoptysis in the past 7-8 weeks, mostly blood-tinged sputum, getting worse, nowdaily. He denies recent upper respiratory tract infection, fever, chills, or weight loss. He denies abdominal pain, melena, hematochezia, or gross hematuria.Numbness or tingling stable. - Summary of Therapies Summary of Therapies: ECOG 1412: Randomized Phase II Open Label Study of Lenalidomide R-CHOP (R2CHOP) vs RCHOP (Rituximab, Cyclophosphamide, Doxorubicin, Vincristine and Prednisone) in Patients with Newly Diagnosed Diffuse Large B Cell Lymphoma - Randomized to control arm, with standard chemotherapy RCHOP, 08/02/15-11/22/15, total of 6 cycles. - Prophylactic LP with IT MTX (elevated LDH, multiple sites of extranodal diseases), total 4 doses. Exit PET/CT scan showed complete remission. - Course complicated by atypical pneumonia during the third week after cycle 3, hospitalized between 09/29-10/03, received IV vancomycin, Zosyn and Levaquin, discharged on a week course of Augmentin and Levaquin. Subjective/ROS - Narrative: CONSTITUTIONAL: Gaining weight, no fever, chills, weakness or fatigue. HEENT: No visual or hearing changes, no oral lesions. CARDIOVASCULAR: No chest pain, chest pressure or chest discomfort. No palpitations, baseline 1+ nonpitting edema. RESPIRATORY: No shortness of breath, Positive for cough and hemoptysis per HPI. GASTROINTESTINAL: No dysphagia, nausea, vomiting or diarrhea. No abdominal pain,melena, hematochezia. GENITOURINARY: No dysuria, urinary frequency or urgency. NEUROLOGICAL: No headache, dizziness, syncope, stable numbness or tingling in the extremities. MUSCULOSKELETAL: Positive for chronic joint pain, stable. Positive for left chest wall pain, from shingles. Positive for left index finger paronychia on antibiotics and improving. ROS Details: All systems reviewed & no additional complaints except as documented PMFSH - Social History Smoking Status: Former smoker Substance Use Type: Alcohol Home Medications & Allergies Allergies Allergy/AdvReac Type Severity Reaction Status Date / Time diltiazem AdvReac Palpitation Verified 12/05/16 10:41 s lisinopril AdvReac Swelling Verified 12/05/16 10:41 of Lip/Tongue/Throat morphine AdvReac Palpitation Verified 12/05/16 10:41 s Home Medications Medication Instructions Recorded Confirmed Type albuterol sulfate 1 puff INHALATION Q4-6H PRN 12/24/16 07/30/17 History allopurinol 300 mg PO DAILY 12/24/16 07/30/17 History atenolol 50 mg PO QHS 12/24/16 07/22/18 History bumetanide 2 mg PO DAILY 12/24/16 07/30/17 History ferrous sulfate 325 mg PO BID 12/24/16 07/30/17 History magnesium oxide 400 mg PO BID 12/24/16 07/30/17 History metolazone 2.5 mg PO DAILY 12/24/16 07/30/17 History multivitamin [Multi-Day] 1 tab PO DAILY 12/24/16 07/30/17 History nitroglycerin [Nitrostat] 0.4 mg SUBLINGUAL Q5-15M PRN 12/24/16 07/30/17 History omeprazole 40 mg PO DAILY 12/24/16 07/30/17 History potassium chloride 80 meq PO QAM 12/24/16 07/22/18 History pregabalin [Lyrica] 150 mg PO QID 12/24/16 02/04/18 History rivaroxaban [Xarelto] 20 mg PO DAILY 12/24/16 07/30/17 History alprazolam [Xanax] 0.5 mg PO QHS 01/22/17 07/30/17 History atorvastatin 10 mg PO QHS 02/15/17 07/30/17 History aspirin 325 mg PO DAILY 04/30/17 07/30/17 History levothyroxine 100 mcg PO DAILY 07/30/17 07/30/17 History potassium chloride 80 meq PO QPM 02/04/18 07/22/18 History gabapentin 300 mg PO BID 07/22/18 07/22/18 History Objective - Height/Weight Height/Weight: Height 6 ft Weight 136.3 kg - Vital Signs Vital Signs: 08/19/18 10:00 Temperature 97.8 F Pulse Rate [Right Brachial] 52 L Respiratory Rate 20 Blood Pressure [Right Arm] 134/70 02 Sat by Pulse Oximetry 96 - Pain Generalized Pain Intensity: 5 - Emotional Needs Assessment Emotional Needs Assessment: Emotional Needs Identified? Yes Distress Screening Total 3 - ECOG Performance Status ECOG Score: 1 Physical Exam Narrative: GENERAL APPEARANCE: In no acute distress. Obese. HEENT: Moist and clear. LUNGS: Clear to auscultation bilaterally, no rales, rhonchi, or crackles. CARDIOVASCULAR: S1 and S2, regular rate and rhythm, no murmurs, gallops, rubs. ABDOMEN: Soft, nontender, bowel sounds normal. No hepatosplenomegaly. No mass palpated. EXTREMITIES: 1+edema, non pitting, in b/l LE, no calf tenderness. NEUROLOGIC: Grossly intact. Unchanged sensory deficits related to chronic neuropathy bilateral lower extremities. Results - Labs Labs: Diagram of Most Recent CBC and CMP 08/13/18 13:50 08/13/18 13:50 Labs - Last 7 Days 08/13/18 13:50: PHA Creatinine Clear [id number], Sodium 144, Potassium 3.7, Chloride 103, Carbon Dioxide 29.6, BUN 42 H, Creatinine 1.52 H, Est GFR (AfricanAmer) 57, Est GFR (Non-Af Amer) 47, Glucose 154 H, Calcium 10.3 H, Total Bilirubin 0.9, AST 34, ALT 28, Alkaline Phosphatase 85, Total Protein 7.2, Albumin 4.2, Globulin 3.0, Albumin/Globulin Ratio 1.4 08/13/18 13:50: WBC 5.8, Corrected WBC 5.8, RBC 5.01, Hgb 14.7, Hct 43.0, MCV 85.8, MCH 29.3, MCHC 34.1, RDW 15.9 H, Plt Count 183, MPV 8.1, Neut % (Auto) 67.9, Lymph % (Auto) 13.9, Sanders % (Auto) 13.0, Eos % (Auto) 4.7, Baso % (Auto) 0.5, Neut # (Auto) 3.9, Lymph # (Auto) 0.8 L, Sanders # (Auto) 0.7, Eos # (Auto) 0.3, Baso # (Auto) 0.0, Nucleated RBC % (auto) 0.1 Assessment and Plan (1) Hemoptysis He developed mild hemoptysis in the past 7-8 weeks, mostly blood-tinged sputum, progressively getting worse. He does not have upper respiratory tract infection. -Chest x-ray PA lateral 4 weeks ago did not show evidence of infiltrates or tumor, given his worsening hemoptysis, will proceed with a CT of the chest with IV contrast. -See in 1 week to discuss results and plan. (2) Hypercalcemia 10.3-<9.9-<10.5, he is not taking calcium supplement. -Vitamin D was low, and PTH level was normal, certainly lymphoma would be a concern, CT chest will give us some clue. (3) DLBCL (diffuse large B cell lymphoma) Qualifiers: Lymphoma site: extranodal excluding spleen and other solid organs QualifiedCode(s): C83.39 - Diffuse large B-cell lymphoma, extranodal and solid organ sites (4) Joint pain (5) Peripheral neuropathy (6) CHF (congestive heart failure), NYHA class I (7) A-fib Qualifiers: Atrial fibrillation type: chronic Qualified Code(s): I48.2 - Chronic atrialfibrillation (8) CKD (chronic kidney disease) stage 3, GFR 30-59 ml/min (9) Examination of participant in clinical trial - Chemo Plan Goal of Treatment: Curative - Time with Patient Coordination of Care & Counseling Time: Greater than 50% of time spent with patient was for coordination of care (as documented) and [id number] counseling of patient and/or family. Dictated By: Brendan Bolaños MD DD/ [id number] Signed By: <Electronically signed by Brendan Bolaños MD> 08/19/18 1020 [facility] Work Phone: [phone] Progress note Author Brendan Bolaños [facility] July 22, 2018 12:33pm Note Date/Time July 22, 2018 8:59am [facility] [place] [address] Hem/Onc Follow Up Note - OP Signed with Addenda Patient: Sandra Potter MR#: [id number] : 1955 Acct:[id number] Age/Sex: 63 / M Type: REG RCR Copies to: Francisco Li DO~ ADDENDUM1 Repeat CMP, Ca 9.9, improved. Vit D level is low 25, PTH normal 77. CXR reviewed by me, no overt lesions, report pending. Addendum Dictated By: Brendan Bolaños MD Addendum Signed By: 07/22/18 1233 Addendum Cosigned By: DD/ /03/1232 TD/TT: 07/22/1810/03/1232 Subjective Date/Time of Service: Date of Service: 07/22/2018 Time of Service: 08:58 Chief Complaint: 6 month follow up appt trial patient - Diagnosis DIAGNOSIS: 1. Diffuse large B-cell lymphoma, non germinal center subtype diagnosed by CT - guided lung biopsy 06/28/15, involving lungs, small bowel, and right iliac bone. R-IPI score 3 (estimated 4Y PFS 53% and OS 55%). -The tumor is CD5 positive with high Ki-67 index of 95%, LDH 1400, R-IPI 3, which represents activated B-cell phenotype. +BCL6 atypical rearrangement, negative for MYC and BCL2 translocation. PAST MEDICAL HISTORY: CKD III (GFR ion 50s), CHF 2/2 hypertrophy (LVEF 70%), andbaseline grade 1 diabetic neuropathy involving feet. History of DVT after gastric bypass, off anticoagulation. A-fib. PAST SURGICAL HISTORY: Coronary artery s/p stents; Hernia repair; Colon perforation status post repair in 2009; Right knee arthroplasty in ; Sleevegastrectomy in 2011 at [facility]. FAMILY HISTORY: One brother, one son and no cancer. One paternal aunt had unknown type of cancer in her age of 70s. 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 Former smoker with a 100 pack-year smoking history (3 packs per dayfor 35 years), quit 03/11/2007. Drinking four beers a day four days a week. Denies illicit drug abuse. HPI: Mr. Potter presents for a scheduled follow up for protocol followup E1412 Arm B R-CHOP. He reports chronic joint pains unchanged over the last 6 months. He has worsening neuropathy, better controlled after increasing the dose of Lyrica by Dr. Ybarra of rheumatology. He denies fever, chills, night sweats, adenopathy, SOB. He developed mild hemoptysis in the past 3-4 weeks, mostly blood-tinged sputum, on two occasions, he did cough up blood clot, it is overallstable, he denies recent upper respiratory tract infection. He denies abdominal pain, melena, hematochezia, or gross hematuria. Numbness or tingling stable. Appetite is good, no weight loss. He is here for review of toxicities for protocol, all are baseline prior to chemotherapy and unlikely to be associated with prior R CHOP on protocol on E1412 Hypertension, grade 1 Dyspnea with exertion, grade 1 Edema of limbs, wears compression socks and on Bumex, grade 1 Fatigue grade 1 Pain all over joint and hip aches, grade 1 using naproxen 500 mg twice daily Peripheral sensory neuropathy, idiopathic and proceeded chemotherapy, Dr. Ybarraincreased his Lyrica to 300 mg twice daily, grade 1 Skin infection leg and finger noted above, grade 1 weight gain 5-10% of baselinegrade 1 Cough and Hemoptysis, grade 1 - Summary of Therapies Summary of Therapies: ECOG 1412: Randomized Phase II Open Label Study of Lenalidomide R-CHOP (R2CHOP) vs RCHOP (Rituximab, Cyclophosphamide, Doxorubicin, Vincristine and Prednisone) in Patients with Newly Diagnosed Diffuse Large B Cell Lymphoma - Randomized to control arm, with standard chemotherapy RCHOP, 08/02/15-11/22/15, total of 6 cycles. - Prophylactic LP with IT MTX (elevated LDH, multiple sites of extranodal diseases), total 4 doses. Exit PET/CT scan showed complete remission. - Course complicated by atypical pneumonia during the third week after cycle 3, hospitalized between 09/29-10/03, received IV vancomycin, Zosyn and Levaquin, discharged on a week course of Augmentin and Levaquin. Subjective/ROS - Narrative: CONSTITUTIONAL: Gaining weight, no fever, chills, weakness or fatigue. HEENT: No visual or hearing changes, no oral lesions. CARDIOVASCULAR: No chest pain, chest pressure or chest discomfort. No palpitations, baseline 1+ nonpitting edema. RESPIRATORY: No shortness of breath, Positive for cough and hemoptysis per HPI. GASTROINTESTINAL: No dysphagia, nausea, vomiting or diarrhea. No abdominal pain,melena, hematochezia. GENITOURINARY: No dysuria, urinary frequency or urgency. NEUROLOGICAL: No headache, dizziness, syncope, stable numbness or tingling in the extremities. MUSCULOSKELETAL: Positive for chronic joint pain, stable. Positive for left chest wall pain, from shingles. Positive for left index finger paronychia on antibiotics and improving. ROS Details: All systems reviewed & no additional complaints except as documented PMFSH - Social History Smoking Status: Former smoker Substance Use Type: Alcohol Home Medications & Allergies Allergies Allergy/AdvReac Type Severity Reaction Status Date / Time diltiazem AdvReac Palpitation Verified 12/05/16 10:41 s lisinopril AdvReac Swelling Verified 12/05/16 10:41 of Lip/Tongue/Throat morphine AdvReac Palpitation Verified 12/05/16 10:41 s Home Medications Medication Instructions Recorded Confirmed Type albuterol sulfate 1 puff INHALATION Q4-6H PRN 12/24/16 07/30/17 History allopurinol 300 mg PO DAILY 12/24/16 07/30/17 History atenolol 50 mg PO QHS 12/24/16 07/22/18 History bumetanide 2 mg PO DAILY 12/24/16 07/30/17 History ferrous sulfate 325 mg PO BID 12/24/16 07/30/17 History magnesium oxide 400 mg PO BID 12/24/16 07/30/17 History metolazone 2.5 mg PO DAILY 12/24/16 07/30/17 History multivitamin [Multi-Day] 1 tab PO DAILY 12/24/16 07/30/17 History nitroglycerin [Nitrostat] 0.4 mg SUBLINGUAL Q5-15M PRN 12/24/16 07/30/17 History omeprazole 40 mg PO DAILY 12/24/16 07/30/17 History potassium chloride 80 meq PO QAM 12/24/16 07/22/18 History pregabalin [Lyrica] 150 mg PO QID 12/24/16 02/04/18 History rivaroxaban [Xarelto] 20 mg PO DAILY 12/24/16 07/30/17 History alprazolam [Xanax] 0.5 mg PO QHS 01/22/17 07/30/17 History atorvastatin 10 mg PO QHS 02/15/17 07/30/17 History aspirin 325 mg PO DAILY 04/30/17 07/30/17 History levothyroxine 100 mcg PO DAILY 07/30/17 07/30/17 History potassium chloride 80 meq PO QPM 02/04/18 07/22/18 History gabapentin 300 mg PO BID 07/22/18 07/22/18 History Objective - Height/Weight Height/Weight: Height 6 ft Weight 137.8 kg - Vital Signs Vital Signs: 07/22/18 08:48 Temperature 98 F Pulse Rate [Right Brachial] 59 L Respiratory Rate 20 Blood Pressure [Right Arm] 114/60 02 Sat by Pulse Oximetry 95 - Pain Generalized Pain Intensity: 5 - Emotional Needs Assessment Emotional Needs Assessment: Emotional Needs Identified? Yes Distress Screening Total 2 - ECOG Performance Status ECOG Score: 1 Physical Exam Narrative: GENERAL APPEARANCE: In no acute distress. Obese. HEENT: Moist and clear, no oral thrush. LUNGS: Clear to auscultation bilaterally, no rales, rhonchi, or crackles. CARDIOVASCULAR: S1 and S2, regular rate and rhythm, no murmurs, gallops, rubs. ABDOMEN: Soft, nontender, bowel sounds normal. No hepatosplenomegaly. No mass palpated. EXTREMITIES: 1+edema, non pitting, in b/l LE, no calf tenderness. NEUROLOGIC: Grossly intact. Unchanged sensory deficits related to chronic neuropathy bilateral lower extremities. Results - Labs Labs: Diagram of Most Recent CBC and CMP 07/17/18 10:18 07/17/18 10:18 Labs - Last 7 Days 07/17/18 10:18: PHA Creatinine Clear [id number], Sodium 139, Potassium 4.4, Chloride 99, Carbon Dioxide 28.9, BUN 39 H, Creatinine 1.56 H, Est GFR ( Amer) 55, Est GFR (Non-Af Amer) 45, Glucose 214 H, Calcium 10.5 H, Total Bilirubin 0.8, AST 26, ALT 22, Alkaline Phosphatase 73, Lactate Dehydrogenase 185, Total Protein 6.9, Albumin 4.1, Globulin 2.8, Albumin/Globulin Ratio 1.5 07/17/18 10:18: WBC 5.0, Corrected WBC 5.0, RBC 5.20, Hgb 15.2, Hct 45.4, MCV 87.3, MCH 29.2, MCHC 33.4, RDW 15.6 H, Plt Count 196, MPV 7.2, Neut % (Auto) 65.4, Lymph % (Auto) 14.5, Sanders % (Auto) 13.9, Eos % (Auto) 5.3, Baso % (Auto) 0.9, Neut # (Auto) 3.3, Lymph # (Auto) 0.7 L, Sanders # (Auto) 0.7, Eos # (Auto) 0.3, Baso # (Auto) 0.0, Nucleated RBC % (auto) 0.1 - Impressions Any impression(s) listed above is documentation that was entered by the reading physician into a diagnostic report(s) for Sandra Potter. I have reviewed the report(s) and am incorporating any findings in the treatment plan of this patient where applicable. Assessment and Plan (1) Hemoptysis He developed mild hemoptysis in the past 3-4 weeks, mostly blood-tinged sputum, on two occasions, he did cough up blood clot, it is overall stable, he denies recent upper respiratory tract infection. -We will have a chest x-ray PA lateral today, if no concern, will observe him. We will have him come back in 4 weeks to recheck his symptoms. -He knows to call if he has persistent, or worsening hemoptysis, in that case wewill proceed with a CT of the chest (2) Hypercalcemia 10.5, new, he is not taking calcium supplement. -We will check CMP to confirm it, and check vitamin D and the PTH level as well. -He is to call in 3 days to review the results of the labs and discuss plan (3) DLBCL (diffuse large B cell lymphoma) Qualifiers: Lymphoma site: extranodal excluding spleen and other solid organs QualifiedCode(s): C83.39 - Diffuse large B-cell lymphoma, extranodal and solid organ sites DLBCL, non-germinal center subtype, involving lungs, small bowel, and right iliac bone. R-IPI score 3 (estimated 4Y PFS 53% and OS 55%). s/p RCHOPx6 cycles. -Clinically well, hemoptysis and hypercalcemia management as above, CT scan declined by insurance. -If work-up of hemoptysis and hypercalcemia are benign, plan to see back in 6 months with CBC, CMP, and LDH. -He knows to call if questions or concerns arise. High complexity encounter, evaluating new onset hemoptysis and hypercalcemia. (4) Joint pain Involving multiple joints. Following Rheumatology, Dr. Ybarra. No diagnosis of autoimmune disorder despite positive VITO in the past. (5) Peripheral neuropathy (6) CHF (congestive heart failure), NYHA class I (7) A-fib Qualifiers: Atrial fibrillation type: chronic Qualified Code(s): I48.2 - Chronic atrialfibrillation (8) CKD (chronic kidney disease) stage 3, GFR 30-59 ml/min (9) Examination of participant in clinical trial - Chemo Plan Goal of Treatment: Curative - Time with Patient Total Time Spent with Patient: 45 min Coordination of Care & Counseling Time: Greater than 50% of time spent with patient was for coordination of care (as documented) and [id number] counseling of patient and/or family. Dictated By: Brendan Bolaños MD DD/ [id number] Signed By: <Electronically signed by Brendan Bolaños MD> 07/22/18 10[address] [facility] Work Phone: [phone] Progress note Author Danya Quach [facility] February 04, 2018 4:01pm Note Date/Time February 04, 2018 3:10pm [facility] [place] [address] Hem/Onc Follow Up Note - OP Signed Patient: Sandra Potter MR#: [id number] : 1955 Acct:[id number] Age/Sex: 62 / M Type: REG RCR Copies to: Fracnisco Li MD W Nannette Burgess DO~ Subjective Date/Time of Service: Date of Service: 02/04/2018 Time of Service: 15:10 Chief Complaint: 6 month follow up- saw Dr Ureña for joint pain and feet neuropathy, started on Lyrica about 5 months ago, I saw him today. States that Naproxen 500mg as needed helps with body/joint aches. Continues to see Dr Burgess for cardiac issues. On Keflex from [facility] (last or Saturday) for finger infection and left leg skin infection, will follow up with Dr Linext week. - Diagnosis DIAGNOSIS: 1. Diffuse large B-cell lymphoma, non germinal center subtype diagnosed by CT - guided lung biopsy 06/28/15, involving lungs, small bowel, and right iliac bone. R-IPI score 3 (estimated 4Y PFS 53% and OS 55%). -The tumor is CD5 positive with high Ki-67 index of 95%, LDH 1400, R-IPI 3, which represents activated B-cell phenotype. +BCL6 atypical rearrangement, negative for MYC and BCL2 translocation. PAST MEDICAL HISTORY: CKD III (GFR ion 50s), CHF 2/2 hypertrophy (LVEF 70%), andbaseline grade 1 diabetic neuropathy involving feet. History of DVT after gastric bypass, off anticoagulation. A-fib. PAST SURGICAL HISTORY: Coronary artery s/p stents; Hernia repair; Colon perforation status post repair in 2009; Right knee arthroplasty in ; Sleevegastrectomy in 2011 at [facility]. FAMILY HISTORY: One brother, one son and no cancer. One paternal aunt had unknown type of cancer in her age of 70s. 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 Former smoker with a 100 pack-year smoking history (3 packs perday for 35 years), quit 03/11/2007. Drinking four beers a day four days a week. Denies illicit drug abuse. HPI: Mr. Potter presents for a scheduled follow up for protocol followup E1412 Arm B R-CHOP. He reports chronic joint pains unchanged over the last 6 months. He had follow-up with Dr. Ybarra of rheumatology and although he had a positive ANAin the past, he does not have a diagnosed autoimmune syndrome. He had shingles in May 2017, resolved rash however, he has persistent pain in the chest wall due to postherpetic neuropathy. He denies fever, chills, night sweats, adenopathy, cough, SOB, or hemoptysis. He denies abdominal pain, melena, hematochezia, or gross hematuria. Numbness or tingling stable. Appetite is good,no weight loss. He is here for review of toxicities for protocol, all are baseline prior to chemotherapy and unlikely to be associated with prior R CHOP on protocol on E1412 Hypertension, grade 1 Recent left index finger infection (paronychia) on Keflex past 3 days, also recent leg infection, grade 1 Dyspnea with exertion, grade 1 Edema of limbs, wears compression socks and on Bumex, grade 1 Fatigue grade 1 Pain all over joint and hip aches, grade 1 using naproxen 500 mg twice daily Peripheral sensory neuropathy, idiopathic and proceeded chemotherapy, Dr. Ybarraincreased his Lyrica to 300 mg twice daily today, grade 1 Skin infection leg and finger noted above, grade 1 weight gain 5-10% of baselinegrade 1 - Summary of Therapies Summary of Therapies: ECOG 1412: Randomized Phase II Open Label Study of Lenalidomide R-CHOP (R2CHOP) vs RCHOP (Rituximab, Cyclophosphamide, Doxorubicin, Vincristine and Prednisone) in Patients with Newly Diagnosed Diffuse Large B Cell Lymphoma - Randomized to control arm, with standard chemotherapy RCHOP, 08/02/15-11/22/15, total of 6 cycles. - Prophylactic LP with IT MTX (elevated LDH, multiple sites of extranodal diseases), total 4 doses. Exit PET/CT scan showed complete remission. - Course complicated by atypical pneumonia during the third week after cycle 3, hospitalized between 09/29-10/03, received IV vancomycin, Zosyn and Levaquin, discharged on a week course of Augmentin and Levaquin. Subjective/ROS - Narrative: CONSTITUTIONAL: No weight loss, fever, chills, weakness or fatigue. HEENT: No visual or hearing changes, no oral lesions. CARDIOVASCULAR: No chest pain, chest pressure or chest discomfort. No palpitations, baseline 1+ nonpitting edema. RESPIRATORY: No shortness of breath, cough or hemoptysis. GASTROINTESTINAL: No dysphagia, nausea, vomiting or diarrhea. No abdominal pain,melena, hematochezia. GENITOURINARY: No dysuria, urinary frequency or urgency. NEUROLOGICAL: No headache, dizziness, syncope, stable numbness or tingling in the extremities. MUSCULOSKELETAL: Positive for chronic joint pain, stable. Positive for left chest wall pain, from shingles. Positive for left index finger paronychia on antibiotics and improving. ROS Details: All systems reviewed & no additional complaints except as documented ONC PMF - General Attestation statement: The following information was validated with the patient. Source: Old Records Reviewed - Medical History Medical history: Atrial Fibrillation, Cancer, Diabetes, Other - chronic idiopathic (?diabetic neuropathy) - Surgical History Surgical history male: bariatric surgery - 2012, cancer surgery - Social History Tobacco Type: cigarettes Hx Recreational Drug Use?: No Home Medications & Allergies Allergies Allergy/AdvReac Type Severity Reaction Status Date / Time diltiazem AdvReac Palpitation Verified 12/05/16 10:41 s lisinopril AdvReac Swelling Verified 12/05/16 10:41 of Lip/Tongue/Throat morphine AdvReac Palpitation Verified 12/05/16 10:41 s Home Medications Medication Instructions Recorded Confirmed Type albuterol sulfate 1 puff INHALATION Q4-6H PRN 12/24/16 07/30/17 History allopurinol 300 mg PO DAILY 12/24/16 07/30/17 History atenolol 25 mg PO QHS 12/24/16 07/30/17 History bumetanide 2 mg PO DAILY 12/24/16 07/30/17 History ferrous sulfate 325 mg PO BID 12/24/16 07/30/17 History magnesium oxide 400 mg PO BID 12/24/16 07/30/17 History metolazone 2.5 mg PO DAILY 12/24/16 07/30/17 History multivitamin [Multi-Day] 1 tab PO DAILY 12/24/16 07/30/17 History nitroglycerin [Nitrostat] 0.4 mg SUBLINGUAL Q5-15M PRN 12/24/16 07/30/17 History omeprazole 40 mg PO DAILY 12/24/16 07/30/17 History potassium chloride 160 meq PO QAM 12/24/16 02/04/18 History pregabalin [Lyrica] 150 mg PO QID 12/24/16 02/04/18 History rivaroxaban [Xarelto] 20 mg PO DAILY 12/24/16 07/30/17 History alprazolam [Xanax] 0.5 mg PO QHS 01/22/17 07/30/17 History amiodarone 100 mg PO DAILY 01/22/17 07/30/17 History atorvastatin 10 mg PO QHS 02/15/17 07/30/17 History aspirin 325 mg PO DAILY 04/30/17 07/30/17 History levothyroxine 100 mcg PO DAILY 07/30/17 07/30/17 History potassium chloride 140 meq PO QPM 02/04/18 02/04/18 History Objective - Resuscitation Status Resuscitation Status: Full Code - Height/Weight Height/Weight: Height 6 ft Weight 133.7 kg - Vital Signs Vital Signs: Temp 97.7 F 02/04/18 14:27 Pulse 66 02/04/18 14:27 Resp 16 02/04/18 14:27 BP 134/73 02/04/18 14:27 Pulse Ox 99 02/04/18 14:27 - Pain Generalized Pain Intensity: 5 - Emotional Needs Assessment Emotional Needs Assessment: Emotional Needs Identified? No Distress Screening Total 0 - ECOG Performance Status ECOG Score: 1 Physical Exam Narrative: GENERAL APPEARANCE: In no acute distress. Obese. HEENT: Moist and clear, no oral thrush. LUNGS: Clear to auscultation bilaterally, no rales, rhonchi, or crackles. Resolved rash left chest wall from prior herpes zoster. CARDIOVASCULAR: S1 and S2, regular rate and rhythm, no murmurs, gallops, rubs. ABDOMEN: Soft, nontender, bowel sounds normal. No hepatosplenomegaly. No mass palpated. EXTREMITIES: No edema or calf tenderness. Positive for mild erythema without significant fluctuance left index finger. No other skin changes. NEUROLOGIC: Grossly intact. Unchanged sensory deficits related to chronic neuropathy bilateral lower extremities. Wears right foot brace orthotic. Results - Labs CBC & Chem 7: 01/31/18 08:59 01/31/18 08:59 Labs: Diagram of Most Recent CBC and CMP 01/31/18 08:59 01/31/18 08:59 Labs - Last 7 Days 01/31/18 08:59: Sodium 140, Potassium 3.7, Chloride 102, Carbon Dioxide 28.6, BUN 34 H, Creatinine 1.51 H, Est GFR ( Amer) 57, Est GFR (Non-Af Amer) 47, AST 30, TSH 3rd Generation 4.94 01/31/18 08:59: Sodium 140, Potassium 3.6, Chloride 100, Carbon Dioxide 29.8, BUN 34 H, Creatinine 1.49 H, Est GFR ( Amer) 58, Est GFR (Non-Af Amer) 48, Glucose 182 H, Calcium 10.0, Total Bilirubin 1.0, AST 28, ALT 28, Alkaline Phosphatase 82, Lactate Dehydrogenase 226 H, Total Protein 6.5, Albumin 3.8, Globulin 2.7, Albumin/Globulin Ratio 1.4 01/31/18 08:59: WBC 5.6, Corrected WBC 5.6, RBC 4.90, Hgb 14.4, Hct 42.9, MCV 87.6, MCH 29.3, MCHC 33.5, RDW 16.1 H, Plt Count 170, MPV 8.0, Neut % (Auto) 65.4, Lymph % (Auto) 14.0, Sanders % (Auto) 15.6, Eos % (Auto) 4.1, Baso % (Auto) 0.9, Neut # (Auto) 3.6, Lymph # (Auto) 0.8 L, Sanders # (Auto) 0.9 H, Eos # (Auto) 0.2, Baso # (Auto) 0.1 - Impressions Any impression(s) listed above is documentation that was entered by the reading physician into a diagnostic report(s) for Sandra Potter. I have reviewed the report(s) and am incorporating any findings in the treatment plan of this patient where applicable. 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 COMPARISON: 07/29/2017 FINDINGS: The frontal and lateral projections of the chest were submitted. [The heart and mediastinum are unremarkable. There is no pulmonary vascular congestion. The lungs are free of acute process. Mild parenchymal scar to the left lung base is noted. The remaining lung yanez show no interstitial pulmonary fibrosis. There is no pleural effusion. Mild thoracic spondylosis is shown. XR/XR chest 2V* IMPRESSION: NO ACUTE INTRATHORACIC PROCESS MILD PARENCHYMAL SCAR TO THE LEFT LUNG BASE. Impression dictated by: Norm Pulido M.D.01/31/2018 1:50 PM Transcribed By: CHAPINCITO 01/31/18 1350 Dictated By: Norm Pulido MD 01/31/18 1347 Assessment and Plan (1) DLBCL (diffuse large B cell lymphoma) Qualifiers: Lymphoma site: extranodal excluding spleen and other solid organs Qualified Code(s): C83.39 - Diffuse large B-cell lymphoma, extranodal and solid organ sites Status: Chronic DLBCL, non-germinal center subtype, involving lungs, small bowel, and right iliac bone. R-IPI score 3 (estimated 4Y PFS 53% and OS 55%). s/p RCHOPx6 cycles. -Clinically well, more than 2 1/2 years out, no evidence of recurrence. Labs and recent chest x-ray reviewed, results discussed, VIRI. -See back in 6 months with CBC, CMP, and LDH. He will see Dr. Brendan Bolaños at that time. Plan to repeat CT scans in a year--ordered 07/17/2018. -He knows to call if questions or concerns arise. (2) Joint pain Status: Chronic Involving multiple joints. Following Rheumatology, Dr. Ybarra. No diagnosis of autoimmune disorder despite positive VITO in the past. (3) Peripheral neuropathy Status: Chronic From diabetes. -He is currently taking Lyrica (increased to 300mg twice daily) for restless leg syndrome/peripheral neuropathy. Increase dose to 300 mg twice daily by Dr. Ybarra at visit earlier today. This also manages restless leg syndrome. (4) CHF (congestive heart failure), NYHA class I Status: Chronic Grade 1, due to hypertrophy. Stable -Continue same medication of diuresis per Cardiology (Dr. Burgess). -Bumex prn for LE edema. (5) A-fib Qualifiers: Atrial fibrillation type: chronic Qualified Code(s): I48.2 - Chronic atrial fibrillation Status: Chronic Following Cardiology on chronic anticoagulation. (6) CKD (chronic kidney disease) stage 3, GFR 30-59 ml/min Status: Chronic Relatively stable renal function on labs, likely related to diabetes and other chronic illnesses. Followed by his primary physician Dr. Li. (7) Examination of participant in clinical trial Status: Chronic Clinical trial follow-up paperwork completed for E1412. - Chemo Plan Chemo Plan (Dose, Rate, Freq): Surveillance only after R CHOP Goal of Treatment: Curative - Time with Patient Coordination of Care & Counseling Time: Greater than 50% of time spent with patient was for coordination of care (as documented) and [id number] counseling of patient and/or family. Dictated By: Danya Quach MD DD/ 1510 Signed By: <Electronically signed by Danya Quach MD> 02/04/18 [address] [facility] Work Phone: [phone] Progress note Author Brendan Bolaños [facility] July 30, 2017 10:01am Note Date/Time July 30, 2017 9:31a m [facility] at [address] [address] Hem/Onc Follow Up Note - OP Signed Patient: Sandra Potter MR#: [id number] : 1955 Acct:[id number] Age/Sex: 62 / M Type: REG RCR Copies to: Francisco Li DO~ Subjective Date/Time of Service: Date of Service: 07/30/2017 Time of Service: 09:30 Chief Complaint: Follow up appt to review CT scan - Diagnosis DIAGNOSIS: 1. Diffuse large B-cell lymphoma, non germinal center subtype diagnosed by CT - guided lung biopsy 06/28/15, involving lungs, small bowel, and right iliac bone. R-IPI score 3 (estimated 4Y PFS 53% and OS 55%). -The tumor is CD5 positive with high Ki-67 index of 95%, LDH 1400, R-IPI 3, which represents activated B-cell phenotype. +BCL6 atypical rearrangement, negative for MYC and BCL2 translocation. PAST MEDICAL HISTORY: CKD III (GFR ion 50s), CHF 2/2 hypertrophy (LVEF 70%), andbaseline grade 1 diabetic neuropathy involving feet. History of DVT after gastric bypass, off anticoagulation. A-fib. PAST SURGICAL HISTORY: Coronary artery s/p stents; Hernia repair; Colon perforation status post repair in 2009; Right knee arthroplasty in ; Sleevegastrectomy in 2011 at [facility]. FAMILY HISTORY: One brother, one son and no cancer. One paternal aunt had unknown type of cancer in her age of 70s. 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 Former smoker with a 100 pack-year smoking history (3 packs perday for 35 years), quit 03/11/2007. Drinking four beers a day four days a week. Denies illicit drug abuse. HPI: Mr. Potter presents for a scheduled follow up. He reports chronic joint pains. Hehad shingles in May, resolved. However, he has persistent pain in the chest wall. He denies fever, chills, night sweats, or adenopathy, he denies cough, SOB, or hemoptysis. He denies abdominal pain, melena, hematochezia, or gross hematuria. Numbness or tingling stable. Appetite is good, no weight loss. - Summary of Therapies Summary of Therapies: ECOG 1412: Randomized Phase II Open Label Study of Lenalidomide R-CHOP (R2CHOP) vs RCHOP (Rituximab, Cyclophosphamide, Doxorubicin, Vincristine and Prednisone) in Patients with Newly Diagnosed Diffuse Large B Cell Lymphoma - Randomized to control arm, with standard chemotherapy RCHOP, 08/02/15-11/22/15, total of 6 cycles. - Prophylactic LP with IT MTX (elevated LDH, multiple sites of extranodal diseases), total 4 doses. Exit PET/CT scan showed complete remission. - Course complicated by atypical pneumonia during the third week after cycle 3, hospitalized between 09/29-10/03, received IV vancomycin, Zosyn and Levaquin, discharged on a week course of Augmentin and Levaquin. Subjective/ROS - Narrative: CONSTITUTIONAL: No weight loss, fever, chills, weakness or fatigue. CARDIOVASCULAR: No chest pain, chest pressure or chest discomfort. No palpitations or edema. RESPIRATORY: No shortness of breath, cough or hemoptysis. GASTROINTESTINAL: No dysphagia, nausea, vomiting or diarrhea. No abdominal pain,melena, hematochezia. GENITOURINARY: No dysuria, urinary frequency or urgency. NEUROLOGICAL: No headache, dizziness, syncope, stable numbness or tingling in the extremities. MUSCULOSKELETAL: Positive for chronic joint pain, stable. Positive for left chest wall pain, from shingles. Home Medications & Allergies Allergies Allergy/AdvReac Type Severity Reaction Status Date / Time diltiazem AdvReac Palpitation Verified 12/05/16 10:41 s lisinopril AdvReac Swelling Verified 12/05/16 10:41 of Lip/Tongue/Throat morphine AdvReac Palpitation Verified 12/05/16 10:41 s Home Medications Medication Instructions Recorded Confirmed Type albuterol sulfate 1 puff INHALATION Q4-6H PRN 12/24/16 07/30/17 History allopurinol 300 mg PO DAILY 12/24/16 07/30/17 History atenolol 25 mg PO QHS 12/24/16 07/30/17 History bumetanide 2 mg PO DAILY 12/24/16 07/30/17 History ferrous sulfate 325 mg PO BID 12/24/16 07/30/17 History magnesium oxide 400 mg PO BID 12/24/16 07/30/17 History metolazone 2.5 mg PO DAILY 12/24/16 07/30/17 History multivitamin [Multi-Day] 1 tab PO DAILY 12/24/16 07/30/17 History nitroglycerin [Nitrostat] 0.4 mg SUBLINGUAL Q5-15M PRN 12/24/16 07/30/17 History omeprazole 40 mg PO DAILY 12/24/16 07/30/17 History potassium chloride 140 meq PO BID 12/24/16 07/30/17 History pregabalin [Lyrica] 75 mg PO BID 12/24/16 07/30/17 History rivaroxaban [Xarelto] 20 mg PO DAILY 12/24/16 07/30/17 History alprazolam [Xanax] 0.5 mg PO QHS 01/22/17 07/30/17 History amiodarone 100 mg PO DAILY 01/22/17 07/30/17 History atorvastatin 10 mg PO QHS 02/15/17 07/30/17 History aspirin 325 mg PO DAILY 04/30/17 07/30/17 History levothyroxine 100 mcg PO DAILY 07/30/17 07/30/17 History Objective - Height/Weight Height/Weight: Height 6 ft Weight 125.9 kg - Vital Signs Vital Signs: Temp 98 F 07/30/17 09:08 Pulse 66 07/30/17 09:08 Resp 20 07/30/17 09:08 BP 121/76 07/30/17 09:08 Pulse Ox 96 07/30/17 09:08 - Pain Generalized Pain Intensity: 3 - Emotional Needs Assessment Emotional Needs Assessment: Emotional Needs Identified? No Distress Screening Total 0 - ECOG Performance Status ECOG Score: 1 Physical Exam Narrative: GENERAL APPEARANCE: In no acute distress. Obese. HEENT: Moist and clear, no oral thrush. LUNGS: Clear to auscultation bilaterally, no rales, rhonchi, or crackles. CARDIOVASCULAR: S1 and S2, regular rate and rhythm, no murmurs, gallops, rubs. ABDOMEN: Soft, nontender, bowel sounds normal. No hepatosplenomegaly. No mass palpated. EXTREMITIES: No edema or calf tenderness. NEUROLOGIC: Grossly intact. Results - Labs CBC & Chem 7: 07/29/17 07:58 07/29/17 07:58 Labs: Laboratory Last Values WBC 5.1 x10E3/uL (4.5-11.0) 07/29/17 07:58 Corrected WBC 5.1 X10E3/uL (4.1-10.5) 07/29/17 07:58 RBC 4.98 x10E6/uL (3.90-5.60) 07/29/17 07:58 Hgb 14.7 g/dL (13.0-17.0) 07/29/17 07:58 Hct 43.5 % (38.8-50.0) 07/29/17 07:58 MCV 87.4 fl (83.5-101) 07/29/17 07:58 MCH 29.4 pg (27.5-35.2) 07/29/17 07:58 MCHC 33.7 g/dL (32.5-35.6) 07/29/17 07:58 RDW 14.9 % (12.0-14.8) H 07/29/17 07:58 Plt Count 204 x10E3/uL (150-450) 07/29/17 07:58 MPV 7.9 fl (6.6-10.1) 07/29/17 07:58 Neut % (Auto) 67.9 % (.) 07/29/17 07:58 Lymph % (Auto) 12.8 % (.) 07/29/17 07:58 Sanders % (Auto) 13.1 % (.) 07/29/17 07:58 Eos % (Auto) 5.1 % (.) 07/29/17 07:58 Baso % (Auto) 1.1 % (.) 07/29/17 07:58 Neut # (Auto) 3.5 x10E3/uL (1.8-7.7) 07/29/17 07:58 Lymph # (Auto) 0.7 x10E3/uL (1.00-4.8) L 07/29/17 07:58 Sanders # (Auto) 0.7 x10E3/uL (0.0-0.8) 07/29/17 07:58 Eos # (Auto) 0.3 x10E3/uL (0.0-0.45) 07/29/17 07:58 Baso # (Auto) 0.1 x10E3/uL (0.0-0.2) 07/29/17 07:58 PHA Creatinine Clear 51.3228 07/29/17 07:58 Sodium 140 mmol/L (136-146) 07/29/17 07:58 Potassium 3.5 mmol/L (3.5-5.1) 07/29/17 07:58 Chloride 101 mmol/L (95-114) 07/29/17 07:58 Carbon Dioxide 27.4 mmol/L (22.0-30.0) 07/29/17 07:58 BUN 43 mg/dL (9-23) H 07/29/17 07:58 Creatinine 1.68 mg/dL (0.64-1.27) H 07/29/17 07:58 Est GFR ( Amer) 51 07/29/17 07:58 Est GFR (Non-Af Amer) 42 07/29/17 07:58 Glucose 176 mg/dL (70-100) H 07/29/17 07:58 Calcium 9.6 mg/dL (8.2-10.2) 07/29/17 07:58 Total Bilirubin 0.8 mg/dL (0.3-1.2) 07/29/17 07:58 AST 32 U/L (10-42) 07/29/17 07:58 ALT 26 U/L (10-60) 07/29/17 07:58 Alkaline Phosphatase 76 U/L (32-92) 07/29/17 07:58 Lactate Dehydrogenase 217 U/L (45-190) H 07/29/17 07:58 Total Protein 7.5 gm/dL (6.1-7.9) 07/29/17 07:58 Albumin 4.1 gm/dL (3.2-5.5) 07/29/17 07:58 Globulin 3.4 gm/dL 07/29/17 07:58 Albumin/Globulin Ratio 1.2 07/29/17 07:58 - Imaging CT scan - chest Status: image reviewed by me CT scan - abdomen Status: image reviewed by me CT scan - pelvis Status: image reviewed by me - Other Results Results/Comments: 1. Stable mildly enlarged periportal lymph node. 2. No new thoracic, abdominal, or pelvic lymphadenopathy. 3. Mild scarring in both lungs. 4. Cholelithiasis. 5. Postsurgical changes and other chronic findings. Assessment and Plan (1) DLBCL (diffuse large B cell lymphoma) Qualifiers: Lymphoma site: extranodal excluding spleen and other solid organs Qualified Code(s): C83.39 - Diffuse large B-cell lymphoma, extranodal and solid organ sites Status: Chronic DLBCL, non-germinal center subtype, involving lungs, small bowel, and right iliac bone. R-IPI score 3 (estimated 4Y PFS 53% and OS 55%). s/p RCHOPx6 cycles. -Clinically well, more than 2 year out, no evidence of recurrence. Scans reviewed, results discussed, VIRI. -See back in 6 months with CBC, CMP, and LDH. Plan to repeat CT scans in a year. -He knows to call if questions or concerns arise. (2) Joint pain Status: Chronic Involving multiple joints. Following Rheumatology, Dr. Ybarra. (3) Peripheral neuropathy Status: Chronic From diabetes. -He is currently taking Lyrica for restless leg syndrome. (4) CHF (congestive heart failure), NYHA class I Status: Chronic Grade 1, due to hypertrophy. Stable -Continue same medication of diuresis per Cardiology. -Bumex prn for LE edema. (5) A-fib Qualifiers: Atrial fibrillation type: chronic Qualified Code(s): I48.2 - Chronic atrial fibrillation Status: Chronic Following Cardiology. - Time Spent with Patient Greater than 50% of time spent with patient was for coordination of care (as documented) and [id number] counseling of patient and/or family. 25 - 35 minutes Dictated By: Brendan Bolaños MD DD/ 9 Signed By: <Electronically signed by Brendan Bolaños MD> 07/30/17 [address] [facility] Work Phone: [phone] Progress note Author Brendan Bolaños [facility] April 30, 2017 6:01pm Note Date/Time April 30, 2017 4:16pm [facility] [place] [address] Hem/Onc Follow Up Note - OP Signed Patient: Sandra Potter MR#: [id number] : 1955 Acct:[id number] Age/Sex: 61 / M Type: REG RCR Copies to: Francisco Li MATT MD Sheldon, W Scott DO~ Subjective Date/Time of Service: Date of Service: 04/30/2017 Time of Service: 10:30 AM Chief Complaint: Follow up appt to review lab work - Diagnosis DIAGNOSIS: 1. Diffuse large B-cell lymphoma, non germinal center subtype diagnosed by CT - guided lung biopsy 06/28/15, involving lungs, small bowel, and right iliac bone. R-IPI score 3 (estimated 4Y PFS 53% and OS 55%). -The tumor is CD5 positive with high Ki-67 index of 95%, LDH 1400, R-IPI 3, which represents activated B-cell phenotype. +BCL6 atypical rearrangement, negative for MYC and BCL2 translocation. 2. Multiple medical comorbidities, including CKD III (GFR ion 50s), CHF 2/2 hypertrophy (LVEF 70%), and baseline grade 1 diabetic neuropathy involving feet.History of DVT after gastric bypass, off anticoagulation. A-fib. HPI: Mr. Potter presents for a scheduled follow up. He reports joint pains controlled on Naproxen bid. He recently was hospitalized, etiology was viral bronchitis andsuperimposed atypical pneumonia. He has gotten better. He denies fever, chills, night sweats, or adenopathy, he denies cough, SOB, or hemoptysis. He denies abdominal pain, melena, hematochezia, or gross hematuria. Numbness or tingling stable. Appetite is good, weight has been stable. - Summary of Therapies Summary of Therapies: ECOG 1412: Randomized Phase II Open Label Study of Lenalidomide R-CHOP (R2CHOP) vs RCHOP (Rituximab, Cyclophosphamide, Doxorubicin, Vincristine and Prednisone) in Patients with Newly Diagnosed Diffuse Large B Cell Lymphoma - Randomized to control arm, with standard chemotherapy RCHOP, 08/02/15-11/22/15, total of 6 cycles. - Prophylactic LP with IT MTX (elevated LDH, multiple sites of extranodal diseases), total 4 doses. Exit PET/CT scan showed complete remission. - Course complicated by atypical pneumonia during the third week after cycle 3, hospitalized between 09/29-10/03, received IV vancomycin, Zosyn and Levaquin, discharged on a week course of Augmentin and Levaquin. Subjective/ROS - Narrative: CONSTITUTIONAL: No weight loss, fever, chills, weakness or fatigue. CARDIOVASCULAR: No chest pain, chest pressure or chest discomfort. No palpitations or edema. RESPIRATORY: No shortness of breath, cough or hemoptysis. GASTROINTESTINAL: No dysphagia, nausea, vomiting or diarrhea. No abdominal pain,melena, hematochezia. GENITOURINARY: No dysuria, urinary frequency or urgency. NEUROLOGICAL: No headache, dizziness, syncope, stable numbness or tingling in the extremities. MUSCULOSKELETAL: Positive for joint pain. Home Medications & Allergies Allergies Allergy/AdvReac Type Severity Reaction Status Date / Time diltiazem AdvReac Palpitation Verified 12/05/16 10:41 s lisinopril AdvReac Swelling Verified 12/05/16 10:41 of Lip/Tongue/Throat morphine AdvReac Palpitation Verified 12/05/16 10:41 s Home Medications Medication Instructions Recorded Confirmed Type albuterol sulfate 1 puff INHALATION Q4-6H PRN 12/24/16 04/30/17 History allopurinol 300 mg PO DAILY 12/24/16 04/30/17 History atenolol 25 mg PO QHS 12/24/16 04/30/17 History bumetanide 2 mg PO DAILY 12/24/16 04/30/17 History ferrous sulfate 325 mg PO BID 12/24/16 04/30/17 History magnesium oxide 400 mg PO BID 12/24/16 04/30/17 History metolazone 2.5 mg PO DAILY 12/24/16 04/30/17 History multivitamin [Multi-Day] 1 tab PO DAILY 12/24/16 04/30/17 History nitroglycerin [Nitrostat] 0.4 mg SUBLINGUAL Q5-15M PRN 12/24/16 04/30/17 History omeprazole 40 mg PO DAILY 12/24/16 04/30/17 History potassium chloride 140 meq PO BID 12/24/16 04/30/17 History pregabalin [Lyrica] 75 mg PO BID 12/24/16 04/30/17 History rivaroxaban [Xarelto] 20 mg PO DAILY 12/24/16 04/30/17 History alprazolam [Xanax] 0.5 mg PO QHS 01/22/17 04/30/17 History amiodarone 100 mg PO DAILY 01/22/17 04/30/17 History atorvastatin 10 mg PO QHS 02/15/17 04/30/17 History aspirin 325 mg PO DAILY 04/30/17 04/30/17 History Objective - Height/Weight Height/Weight: Height 6 ft Weight 125.9 kg - Vital Signs Vital Signs: Last Vital Signs Temp 97.9 F 04/30/17 10:47 Pulse 78 04/30/17 10:47 Resp 20 04/30/17 10:47 BP 130/73 04/30/17 10:47 Pulse Ox 96 04/30/17 10:47 - Pain Generalized Pain Intensity: 3 - Emotional Needs Assessment Emotional Needs Assessment: Emotional Needs Identified? No Distress Screening Total 0 Physical Exam Narrative: GENERAL APPEARANCE: In no acute distress. Obese. HEENT: Moist and clear, no oral thrush. LUNGS: Clear to auscultation bilaterally, no rales, rhonchi, or crackles. CARDIOVASCULAR: S1 and S2, regular rate and rhythm, no murmurs, gallops, rubs. ABDOMEN: Soft, nontender, bowel sounds normal. No hepatosplenomegaly. No mass palpated. EXTREMITIES: No edema or calf tenderness. NEUROLOGIC: Grossly intact. Results - Labs CBC & Chem 7: 04/25/17 09:41 04/25/17 09:41 Labs: Calcium 9.2 mg/dL (8.2-10.2) 04/25/17 09:41 Total Bilirubin 0.9 mg/dL (0.3-1.2) 04/25/17 09:41 AST 41 U/L (10-42) 04/25/17 09:41 ALT 44 U/L (10-60) 04/25/17 09:41 Alkaline Phosphatase 81 U/L (32-92) 04/25/17 09:41 Lactate Dehydrogenase 260 U/L (45-190) H 04/25/17 09:41 Total Protein 6.8 gm/dL (6.1-7.9) 04/25/17 09:41 Albumin 3.4 gm/dL (3.2-5.5) 04/25/17 09:41 Globulin 3.4 gm/dL 04/25/17 09:41 Albumin/Globulin Ratio 1.0 04/25/17 09:41 Assessment and Plan (1) DLBCL (diffuse large B cell lymphoma) Qualifiers: Lymphoma site: extranodal excluding spleen and other solid organs Qualified Code(s): C83.39 - Diffuse large B-cell lymphoma, extranodal and solid organ sites Status: Chronic DLBCL, non-germinal center subtype, involving lungs, small bowel, and right iliac bone. R-IPI score 3 (estimated 4Y PFS 53% and OS 55%). s/p RCHOPx6 cycles. -Clinically well, more than 1 year out, no evidence of recurrence. Scans reviewed, results discussed, VIRI. -See back in 3 months with CBC, CMP, and LDH. -Refer to general surgery re: Port removal. -He knows to call if questions or concerns arise. (2) Joint pain Status: Chronic Involving multiple joints, did not improve on prednisone -He will see Dr. Ybarra for evaluation. -We discussed to avoid RTC Naproxen use which can increase BP and worsen renal function. (3) Peripheral neuropathy Status: Chronic From diabetes. -He is currently taking Lyrica for restless leg syndrome. (4) A-fib Qualifiers: Atrial fibrillation type: chronic Qualified Code(s): I48.2 - Chronic atrial fibrillation Status: Chronic On anticoagulation with Xarelto. -He has some nosebleed. I instructed him to discuss with cardiology, regarding Eliquis use. (5) CHF (congestive heart failure), NYHA class I Status: Chronic Grade 1, due to hypertrophy. Stable -Continue same medication of diuresis per Cardiology. -Bumex prn for LE edema. - TNM Staging TNM Staging: Problem Onset Date DLBCL (diffuse large B cell lymphoma) <Primary> Status: Draft - Time Spent with Patient Greater than 50% of time spent with patient was for coordination of care (as documented) and [id number] counseling of patient and/or family. 25 - 35 minutes Dictated By: Brendan Bolaños MD DD/ 1615 Signed By: <Electronically signed by Brendan Bolaños MD> 04/30/17 [address] [facility] Work Phone: [phone] Progress note Author Brendan [facility] January 22, 2017 1:16pm Note Date/Time January 22, 2017 1 :06pm [facility] at [address] [address] Hem/Onc Follow Up Note - OP Signed Patient: Sandra Potter MR#: [id number] : 1955 Acct:[id number] Age/Sex: 61 / M Type: REG RCR Copies to: Francisco Li DO~ Subjective Date/Time of Service: Date of Service: 01/22/2017 Time of Service: 13:05 Chief Complaint: Follow up appt to review CT scan - Diagnosis DIAGNOSIS: 1. Diffuse large B-cell lymphoma, non germinal center subtype diagnosed by CT - guided lung biopsy 06/28/15, involving lungs, small bowel, and right iliac bone. R-IPI score 3 (estimated 4Y PFS 53% and OS 55%). -The tumor is CD5 positive with high Ki-67 index of 95%, LDH 1400, R-IPI 3, which represents activated B-cell phenotype. +BCL6 atypical rearrangement, negative for MYC and BCL2 translocation. 2. Multiple medical comorbidities, including CKD III (GFR ion 50s), CHF 2/2 hypertrophy (LVEF 70%), and baseline grade 1 diabetic neuropathy involving feet.History of DVT after gastric bypass, off anticoagulation. A-fib. HPI: Mr. Potter presents for a scheduled follow up. He reports worsening joint pains, not relieved by Tylenol. Ibuprofen was minimally effective. He denies fever, chills, night sweats, or adenopathy, he denies cough, SOB, or hemoptysis. He denies abdominal pain, melena, hematochezia, or gross hematuria. Numbness or tingling stable. Appetite is good, weight has been stable. - Summary of Therapies Summary of Therapies: ECOG 1412: Randomized Phase II Open Label Study of Lenalidomide R-CHOP (R2CHOP) vs RCHOP (Rituximab, Cyclophosphamide, Doxorubicin, Vincristine and Prednisone) in Patients with Newly Diagnosed Diffuse Large B Cell Lymphoma - Randomized to control arm, with standard chemotherapy RCHOP, 08/02/15-11/22/15, total of 6 cycles. - Prophylactic LP with IT MTX (elevated LDH, multiple sites of extranodal diseases), total 4 doses. Exit PET/CT scan showed complete remission. - Course complicated by atypical pneumonia during the third week after cycle 3, hospitalized between 09/29-10/03, received IV vancomycin, Zosyn and Levaquin, discharged on a week course of Augmentin and Levaquin. Subjective/ROS - Narrative: CONSTITUTIONAL: No weight loss, fever, chills, weakness or fatigue. CARDIOVASCULAR: No chest pain, chest pressure or chest discomfort. No palpitations or edema. RESPIRATORY: No shortness of breath, cough or hemoptysis. GASTROINTESTINAL: No dysphagia, nausea, vomiting or diarrhea. No abdominal pain,melena, hematochezia. GENITOURINARY: No dysuria, urinary frequency or urgency. NEUROLOGICAL: No headache, dizziness, syncope, stable numbness or tingling in the extremities. MUSCULOSKELETAL: Positive for joint pain. Home Medications & Allergies Allergies Allergy/AdvReac Type Severity Reaction Status Date / Time diltiazem AdvReac Palpitation Verified 12/05/16 10:41 s lisinopril AdvReac Swelling Verified 12/05/16 10:41 of Lip/Tongue/Throat morphine AdvReac Palpitation Verified 12/05/16 10:41 s Home Medications Medication Instructions Recorded Confirmed Type albuterol sulfate 1 puff INHALATION Q4-6H PRN 12/24/16 01/22/17 History allopurinol 300 mg PO DAILY 12/24/16 01/22/17 History aspirin 81 mg PO DAILY 12/24/16 01/22/17 History atenolol 25 mg PO DAILY 12/24/16 01/22/17 History bumetanide 2 mg PO DAILY 12/24/16 01/22/17 History ferrous sulfate 325 mg PO DAILY 12/24/16 01/22/17 History magnesium oxide 400 mg PO BID 12/24/16 01/22/17 History metolazone 2.5 mg PO DAILY 12/24/16 01/22/17 History multivitamin [Multi-Day] 1 tab PO DAILY 12/24/16 01/22/17 History nitroglycerin [Nitrostat] 0.4 mg SUBLINGUAL Q5-15M PRN 12/24/16 01/22/17 History omeprazole 40 mg PO DAILY 12/24/16 01/22/17 History oxycodone 10 mg PO Q4-6H PRN 12/24/16 01/22/17 History potassium chloride 20 meq PO BID 12/24/16 01/22/17 History pregabalin [Lyrica] 75 mg PO DAILY 12/24/16 01/22/17 History rivaroxaban [Xarelto] 20 mg PO DAILY 12/24/16 01/22/17 History alprazolam [Xanax] 0.5 mg PO QHS 01/22/17 01/22/17 History amiodarone 100 mg PO DAILY 01/22/17 01/22/17 History prednisone 10 mg PO DAILY #30 tab 01/22/17 Rx simvastatin 10 mg PO QPM 01/22/17 01/22/17 History Objective - Height/Weight Height/Weight: Height 6 ft Weight 124.1 kg - Vital Signs Vital Signs: Last Vital Signs Temp 98 F 01/22/17 10:16 Pulse 61 01/22/17 10:16 Resp 20 01/22/17 10:16 BP 137/80 01/22/17 10:16 Pulse Ox 99 01/22/17 10:16 - Pain Generalized Pain Intensity: 3 - Emotional Needs Assessment Emotional Needs Assessment: Emotional Needs Identified? No Distress Screening Total 0 Physical Exam Narrative: GENERAL APPEARANCE: In no acute distress. Obese. HEENT: Moist and clear, no oral thrush. LUNGS: Clear to auscultation bilaterally, no rales, rhonchi, or crackles. CARDIOVASCULAR: S1 and S2, regular rate and rhythm, no murmurs, gallops, rubs. ABDOMEN: Soft, nontender, bowel sounds normal. No hepatosplenomegaly. No mass palpated. EXTREMITIES: No edema or calf tenderness. NEUROLOGIC: Grossly intact. Results - Labs CBC & Chem 7: 01/16/17 10:30 01/16/17 10:30 - Imaging CT scan - abdomen Status: image reviewed by me CT scan - chest Status: image reviewed by me CT scan - pelvis Status: image reviewed by me Assessment and Plan (1) DLBCL (diffuse large B cell lymphoma) Qualifiers: Lymphoma site: extranodal excluding spleen and other solid organs Qualified Code(s): C83.39 - Diffuse large B-cell lymphoma, extranodal and solid organ sites Status: Chronic DLBCL, non-germinal center subtype, involving lungs, small bowel, and right iliac bone. R-IPI score 3 (estimated 4Y PFS 53% and OS 55%). s/p RCHOPx6 cycles. -Clinically well, more than 1 year out, no evidence of recurrence. Scans reviewed, results discussed, VIRI. -See back in 3 months with CBC, CMP, and LDH. -Refer to general surgery re: Port removal. -He knows to call if questions or concerns arise. (2) Joint pain Status: Chronic Involving multiple joints, was better on prednisone -? Rheumatoid, will refer to Rheumatology, Dr. Ybarra for evaluation. -Empirical prednisone 10 mg once a day for 7 days. E prescribed (3) Peripheral neuropathy Status: Chronic From diabetes. -He is currently taking Lyrica for restless leg syndrome. (4) A-fib Status: Chronic On anticoagulation with Xarelto. -He has some nosebleed. I instructed him to discuss with cardiology, regarding Eliquis use. (5) CHF (congestive heart failure), NYHA class I Status: Chronic Grade 1, due to hypertrophy. Stable -Continue same medication of diuresis per Cardiology. -Bumex prn for LE edema. - TNM Staging TNM Staging: Problem Onset Date DLBCL (diffuse large B cell lymphoma) <Primary> Status: Draft - Time Spent with Patient Greater than 50% of time spent with patient was for coordination of care (as documented) and [id number] counseling of patient and/or family. 25 - 35 minutes Dictated By: Brendan Bolaños MD DD/ [id number] Signed By: <Electronically signed by Brendan Bolaños MD> 01/22/17 1316 [facility] Work Phone: Chief complaint Narrative - ReportedSANDRA POTTER is being seen for a cardiovascular evaluation . [id number] Brandi Mathur [address] [place] Work Phone: Evaluation + Plan note No data available for this section [facility] Diagnosis Preop testing- Primary Preoperative examination, unspecified documented in this encounter [employer] Phone: evaluation note* Diagnosis COVID-19 ruled out by laboratory testing- Primary documented in this encounter [employer] Phone: evaluation note* Constitutional: Well developed, awake/alert/oriented x3, no distress, alert and cooperativeHead/Neck: Neck supple, no apparent injury, thyroid without mass or tenderness, No JVD, trachea midline, no bruitsRespiratory/Thorax: Patent airways, CTAB, normal breath sounds with good chest expansion, thorax symmetricCardiovascular: Irregular, rate and rhythm, no murmurs, 2+ equal pulses of the extremities, normal S 1and S 2Gastrointestinal: Nondistended, soft, non-tender, no rebound tenderness or guarding, no masses palpable, no organomegaly, +BS, no bruitsExtremities: normal extremities, no cyanosis edema, contusions or wounds, no clubbingNeurological: alert and oriented x3.Psychological: Appropri ate mood and behavior [facility] Diagnosis Cough Hemoptysis Hemoptysis, unspecified SOB (shortness of breath) Shortness of breath documented in this encounter [employer] Phone: evaluation note* Diagnosis SOB (shortness of breath) Shortness of breath Hemoptysis Hemoptysis, unspecified documented in this encounter [employer] Phone: evalszymgd noteNo InformationNort [employer] Other Evaluation note* Diagnosis Onset Date Resolution Status Cellulitis of foot acute Diabetic foot ulcer acute Osteomyelitis acute Type 2 diabetes mellitus with peripheral neuropathy acute CKD (chronic kidney disease) stage 3, GFR 30-59 ml/min chronic 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 Edema chronic Hemosiderin pigmentation of lower extremity due to varicose veins chronic Peripheral neuropathy chroni c Diabetes 1.5, managed as type 2 acute Hypercalcemia acute A-fib chronic CHF (congestive heart failure), NYHA class I chronic CKD (chronic kidney disease) stage 3, GFR 30-59 ml/min chronic 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 Joint pain chronic Obesity (BMI 35.0-39.9 without comorbidity) chronic Peripheral neuropathy chroni c [facility] Work Phone: Evaluation note* Diagnosis Onset Date Resolution Status Diabetes 1.5, managed as type 2 acute Hypercalcemia acute A-fib chronic CHF (congestive heart failure), NYHA class I chronic CKD (chronic kidney disease) stage 3, GFR 30-59 ml/min chronic 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 Joint pain chronic Obesity (BMI 35.0-39.9 without comorbidity) chronic Peripheral neuropathy chroni c Diabetic foot ulcer chronic Hemosiderin pigmentation of lower extremity due to varicose veins chronic Type 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 [facility] Work Phone: Evaluation noteNo assessment information available [facility] Work Phone: Evaluation note* Diagnosis Onset Date Resolution Status Diabetes 1.5, managed as type 2 acute Hypercalcemia acute A-fib chronic CHF (congestive heart failure), NYHA class I chronic CKD (chronic kidney disease) stage 3, GFR 30-59 ml/min chronic 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 Joint pain chronic Obesity (BMI 35.0-39.9 without comorbidity) chronic Peripheral neuropathy chroni c [facility] Work Phone: Evaluation note* Diagnosis Onset Date Resolution Status Diabetes 1.5, managed as type 2 acute Hypercalcemia acute A-fib chronic CHF (congestive heart failure), NYHA class I chronic CKD (chronic kidney disease) stage 3, GFR 30-59 ml/min chronic 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 Joint pain chronic Obesity (BMI 35.0-39.9 without comorbidity) chronic Peripheral neuropathy chroni c Bradycardia acute Diabetes 1.5, managed as type 2 acute Generalized weakness acute Hypomagnesemia acute Symptomatic bradycardia acut e A-fib chronic CHF (congestive heart failure), NYHA class I chronic CKD (chronic kidney disease) stage 3, GFR 30-59 ml/min chronic HTN (hypertension) chronic Obesity (BMI 35.0-39.9 without comorbidity) chronic [facility] Work Phone: evaluation note* Diagnosis Onset Date Resolution Status Diabetes 1.5, managed as type 2 acute Hypercalcemia acute A-fib chronic CHF (congestive heart failure), NYHA class I chronic CKD (chronic kidney disease) stage 3, GFR 30-59 ml/min chronic 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 Joint pain chronic Obesity (BMI 35.0-39.9 without comorbidity) chronic Peripheral neuropathy chroni c Bradycardia acute Diabetes 1.5, managed as type 2 acute Generalized weakness acute Hypercalcemia acute Hyperkalemia acute Hypokalemia acute Hypomagnesemia acute Symptomatic bradycardia acut e A-fib chronic CHF (congestive heart failure), NYHA class I chronic CKD (chronic kidney disease) stage 3, GFR 30-59 ml/min chronic HTN (hypertension) chronic Obesity (BMI 35.0-39.9 without comorbidity) chronic Type 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 [facility] Work Phone: Evaluation note* Diagnosis Onset Date Resolution Status Diabetes 1.5, managed as type 2 acute Hypercalcemia acute A-fib chronic CHF (congestive heart failure), NYHA class I chronic CKD (chronic kidney disease) stage 3, GFR 30-59 ml/min chronic 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 Joint pain chronic Obesity (BMI 35.0-39.9 without comorbidity) chronic Peripheral neuropathy chroni c Bradycardia acute Diabetes 1.5, managed as type 2 acute Generalized weakness acute Hypercalcemia acute Hyperkalemia acute Hypokalemia acute Hypomagnesemia acute Symptomatic bradycardia acut e A-fib chronic CHF (congestive heart failure), NYHA class I chronic CKD (chronic kidney disease) stage 3, GFR 30-59 ml/min chronic HTN (hypertension) chronic Obesity (BMI 35.0-39.9 without comorbidity) chronic Type 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 A-fib acute CKD (chronic kidney disease) stage 3, GFR 30-59 ml/min acute Coronary artery disease acut e Generalized weakness acute Symptomatic bradycardia acut e [facility] Work Phone: Evaluation note* Diagnosis Onset Date Resolution Status Bradycardia acute Generalized weakness acute Hypercalcemia acute Hyperkalemia acute Hypokalemia acute Hypomagnesemia acute Symptomatic bradycardia acut e A-fib chronic CHF (congestive heart failure), NYHA class I chronic CKD (chronic kidney disease) stage 3, GFR 30-59 ml/min chronic Diabetes 1.5, managed as type 2 chronic HTN (hypertension) chronic Obesity (BMI 35.0-39.9 without comorbidity) chronic Type 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 A-fib acute CKD (chronic kidney disease) stage 3, GFR 30-59 ml/min acute Coronary artery disease acut e Generalized weakness acute Symptomatic bradycardia acut e CKD (chronic kidney disease) stage 3, GFR 30-59 ml/min chronic Diabetes 1.5, managed as type 2 chronic Diabetic foot ulcer chronic Inflammation chronic Obesity (BMI 35.0-39.9 without comorbidity) chronic Peripheral neuropathy chroni c [facility] Work Phone: History general Narrative - Reported* Type Description Date Medical History Hypertension Medical History type II diabetes resolved after gastric sleeve procedure Medical History CAD Medical History Atrial fibrillation Medical History ZAYRA Medical History cardiomyopathy Medical History chronic renal failure Medical History Esophageal reflux Medical History COPD Medical History diverticulitis w/perforation Medical History active alcohol use 3-10 beers/da y Medical History CAD Surgical History Umbilical Herniax2 Surgical History Rt knee Torn Cartilage Surgical History Tonsillectomy Surgical History ablation Surgical History heart stents Surgical History Lower Colectomy Surgical History gastric bypass Surgical History Bowel obstruction Surgical History 12/06 Hospitalization History No know Hospitalization history [facility] Other history general Narrative - Reported* Type Description Date Medical History Hypertension Medical History type II diabetes resolved after gastric sleeve procedure Medical History CAD Medical History Atrial fibrillation Medical History ZAYRA Medical History cardiomyopathy Medical History chronic renal failure Medical History Esophageal reflux Medical History COPD Medical History diverticulitis w/perforation Medical History active alcohol use 3-10 beers/da y Medical History CAD Surgical History Umbilical Herniax2 Surgical History Rt knee Torn Cartilage Surgical History Tonsillectomy Surgical History ablation Surgical History heart stents Surgical History Lower Colectomy Surgical History gastric bypass Surgical History Bowel obstruction Surgical History 12/06 Hospitalization History No Hospitalization [facility] Other history general Narrative - Reported* Type Description Date Medical History Hypertension Medical History type II diabetes res olved after gastric sleeve procedure Medical History CAD Medical History Atrial fibrillation Medical History ZAYRA Medical History cardiomyopathy Medical History chronic renal failure Medical History Esophageal reflux Medical History COPD Medical History diverticulitis w/perforation Medical History active alcohol use 3-10 beers/da y Medical History CAD Surgical History Umbilical Herniax2 Surgical History Rt knee Torn Cartilage Surgical History Tonsillectomy Surgical History ablation Surgical History heart stents Surgical History Lower Colectomy Surgical History gastric bypass Surgical History Bowel obstruction Surgical History 12/06 Surgical History Left foot- big Toe amputation 0 09/2021 Hospitalization History No Hospitalization [facility] ? Other history general Narrative - Reported* Type Description Date Medical History Hypertension Medical History type II diabetes res olved after gastric sleeve procedure Medical History CAD Medical History Atrial fibrillation Medical History ZAYRA Medical History cardiomyopathy Medical History chronic renal failure Medical History Esophageal reflux Medical History COPD Medical History diverticulitis w/perforation Medical History active alcohol use 3-10 beers/da y Medical History CAD Medical History Shingles Surgical History Umbilical Herniax2 Surgical History Rt knee Torn Cartilage Surgical History Tonsillectomy Surgical History ablation Surgical History heart stents Surgical History Lower Colectomy Surgical History gastric bypass Surgical History Bowel obstruction Surgical History Watch12/06 Surgical History Left foot- big Toe amputation 0 09/2021 Hospitalization History No Hospitalization [facility] Other history general Narrative - Reported* Type Description Date Medical History Hypertension Medical History type II diabetes res olved after gastric sleeve procedure Medical History CAD Medical History Atrial fibrillation Medical History ZAYRA Medical History cardiomyopathy Medical History chronic renal failure Medical History Esophageal reflux Medical History COPD Medical History diverticulitis w/perforation Medical History active alcohol use 3-10 beers/da y Medical History CAD Medical History Shingles Medical History Shingles Surgical History Umbilical Herniax2 Surgical History Rt knee Torn Cartilage Surgical History Tonsillectomy Surgical History ablation Surgical History heart stents Surgical History Lower Colectomy Surgical History gastric bypass Surgical History Bowel obstruction Surgical History 12/06 Surgical History Left foot- big Toe amputation 0 09/2021 Hospitalization History No Hospitalization [facility] Other history general Narrative - Reported* Type Description Date Medical History Hypertension Medical History type II diabetes res olved after gastric sleeve procedure Medical History CAD Medical History Atrial fibrillation Medical History ZAYRA Medical History cardiomyopathy Medical History chronic renal failure Medical History Esophageal reflux Medical History COPD Medical History diverticulitis w/perforation Medical History active alcohol use 3-10 beers/da y Medical History CAD Medical History Shingles Medical History Shingles Surgical History Umbilical Herniax2 Surgical History Rt knee Torn Cartilage Surgical History Tonsillectomy Surgical History ablation Surgical History heart stents Surgical History Lower Colectomy Surgical History gastric bypass Surgical History Bowel obstruction Surgical History 12/06 Surgical History Left foot- big Toe amputation 0 09/2021 Surgical History toe amputation 12/2021 Hospitalization History see surgical hx [facility] Other history general Narrative - Reported* Type Description Date Medical History Hypertension Medical History type II diabetes res olved after gastric sleeve procedure Medical History CAD Medical History Atrial fibrillation Medical History ZAYRA Medical History cardiomyopathy Medical History chronic renal failure Medical History Esophageal reflux Medical History COPD Medical History diverticulitis w/perforation Medical History active alcohol use 3-10 beers/da y Medical History CAD Medical History Shingles Medical History Shingles Medical History Arthritis Medical History basal cell carcinoma Medical History lymphoma Medical History Gout Medical History heart disease Medical History high cholesterol Medical History thyroid disease Medical History stent Surgical History Umbilical Herniax2 Surgical History Rt knee Torn Cartilage Surgical History Tonsillectomy Surgical History ablation Surgical History heart stents Surgical History Lower Colectomy Surgical History gastric bypass Surgical History Bowel obstruction Surgical History Watchman 12/06 Surgical History Left foot- big Toe amputation 0 09/2021 Surgical History toe amputation 12/2021 Surgical History sigmoid resection Surgical History bowel resection Surgical History amputation, toes Surgical History gastric sleeve Hospitalization History see surgical [facility] Other history general Narrative - Reported* Type Description Date Medical History Hypertension Medical History type II diabetes res olved after gastric sleeve procedure Medical History CAD Medical History Atrial fibrillation Medical History ZAYRA Medical History cardiomyopathy Medical History chronic renal failure Medical History Esophageal reflux Medical History COPD Medical History diverticulitis w/perforation Medical History active alcohol use 3-10 beers/da y Medical History CAD Medical History Shingles Medical History Shingles Medical History Arthritis Medical History basal cell carcinoma Medical History lymphoma Medical History Gout Medical History heart disease Medical History high cholesterol Medical History thyroid disease Medical History stent Surgical History Umbilical Herniax2 Surgical History Rt knee Torn Cartilage Surgical History Tonsillectomy Surgical History ablation Surgical History heart stents Surgical History Lower Colectomy Surgical History gastric bypass Surgical History Bowel obstruction Surgical History Watchman 12/06 Surgical History Left foot- big Toe amputation 0 09/2021 Surgical History toe amputation 12/2021 Surgical History sigmoid resection Surgical History bowel resection Surgical History amputation, toes Surgical History gastric sleeve Surgical History cardiac pacemeker 2022 Hospitalization History see surgical [facility] Other history general Narrative - Reported* Type Description Date Medical History Hypertension Medical History type II diabetes res olved after gastric sleeve procedure Medical History CAD Medical History Atrial fibrillation Medical History ZAYRA Medical History cardiomyopathy Medical History chronic renal failure Medical History Esophageal reflux Medical History COPD Medical History diverticulitis w/perforation Medical History active alcohol use 3-10 beers/da y Medical History CAD Medical History Shingles Medical History Shingles Medical History Arthritis Medical History basal cell carcinoma Medical History lymphoma Medical History Gout Medical History heart disease Medical History high cholesterol Medical History thyroid disease Medical History stent Medical History SYMPTOMATIC BRADYCARDIA, Medical History A-FIB Medical History CORONARY ARTERY DISEASE Medical History HYPOKALEMIA Medical History HYPERKALEMIA Medical History CKD STAGE 3 Medical History HYPERCALCEMIA Medical History HYPOMAGNESEMIA Surgical History Umbilical Herniax2 Surgical History Rt knee Torn Cartilage Surgical History Tonsillectomy Surgical History ablation Surgical History heart stents Surgical History Lower Colectomy Surgical History gastric bypass Surgical History Bowel obstruction Surgical History Watchman 12/06 Surgical History Left foot- big Toe amputation 0 09/2021 Surgical History toe amputation 12/2021 Surgical History sigmoid resection Surgical History bowel resection Surgical History amputation, toes Surgical History gastric sleeve Surgical History cardiac pacemeker 2022 Hospitalization History see surgical hx Hospitalization History SYMPTOMATIC BRITTNEY YCARDIA, A-FIB, CORONARY ARTERY DISEASE, HYPOKALEMIA, HYPERKALEMIA, CKD STAGE 3, HYPERCALCEMIA 02/08/2023 Hospitalization History PACEMAKER PLACEMENT 01/17 Fuzz Other History of Present illness Narrative* PCP: Dr. Li * Cardio: Dr. Burgess * I was asked by Dr. Burgess to evaluate this patient in consultation for evaluation of left atrial appendage closure. * Mr. 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 Reduced LVEF and heart failure NYHA Class II. * Mr. Potter has a persistent atrial fibrillation (prior cardioversion attempt on 10/12/2020) and is currently on Xarelto. Patient reports easy bruisability, epistaxis and a significant fall risk including prior falls with incidental trauma. * Given the patient's significant bleeding, skin tears and increased fall risk, he is referred for consideration of left atrial appendage closure for stroke risk reduction. [id number]-CEP Brandi Mathur [address] [place] Work Phone: Hospital Discharge instructions* Additional Orders:Additional Instructions: Anticoagulation Plan:You are being discharged on Aspirinand XareltoYou will have a 45-day AYESHA or CTA to assess the effectiveness of the Watchman Device. Ifthe results of the AYESHA/CTA are adequate, Xarelto will be stopped and you will be put on Aspirin andPlavix for 6 months (Plavix will be stopped after 6 months and you will remain on 81mg Aspirin for life). * Call Provider If:Breathing faster than normal. Breathing harder than normal or having retractions. Fever of 100.4 F (38 C) or higher. Chills. Drinking less than normal. Urinating less than normal, over 1 day. Acting very sleepy and difficult to awaken. Vomiting (throwing up) and not able to eat or drink for 12 hours. 3 or more loose, watery bowel movements in 24 hours (diarrhea). Any new concerning symptoms. * Patient Instructions, Next 24 hours:DO NOT drink any alcoholic drinks or take any non-prescriptive medications that contain alcohol for the first 24 hours. DO NOT make any important decisions for thefirst 24 hours. * Activity:You are advised to go directly home from the hospital. DO NOT lift anything heavier than 10 pounds for one week, this allows for proper healing of the groin. No excessive exercise or treadmill use for one week. You may walk and do stairs, slowly. No sexual activities for 24 hours after youarrive home. * Wound Care:If slight bleeding should occur at site, lie down and have someone apply firm pressure just above the puncture site for 5 minutes. If it continues or is profuse, call 911. Always notify your doctor if bleeding occurs. Keep site clean and dry. Let air dry or you may use a simple bandaid. Gently cleanse the puncture site in your groin with soap and water only. You may experience some tenderness, bruising or minimal inflammation. If you have any concerns, you may contact the Auto Heater Mechanic orif any of these symptoms become excessive, contact your start up specialist or go to the emergency room. No tub baths, soaking, or swimming for one week. May shower the next day after your procedure. * Follow Up Appointment 1:Physician/Dept/Service: Primary CardiologyCall to Schedule in: 1-2 weeksComments: Please follow-up with your Primary Cod Clerk in 1-2 weeks after your Watchman procedure * Follow Up Appointment 2:Physician/Dept/Service: 45 day post-Watchman imaging (AYESHA or CTA) Fatajwdp: You will have imaging (AYESHA or CTA) around the 45 day juliano. Please contact Jo Burris if you have not been notified of this appointment in 2-3 weeks [facility] No data available for this section [facility] Center[facility] note Author Vivian Del Rosario [facility] November 10, 2021 3:20pm Note Date/Time November 10, 2021 10 :40am [facility] at [address] [address] Hem/Onc Follow Up Note - OP Signed Patient: Sandra Potter MR#: [id number] : 1955 Acct:[id number] Age/Sex: 66 / M Type: REG RCR Copies to: Teri Aragon, DO ThomasSandra Margaret Danielson, II, DO~ Date of Service: 11/10/2021 Time of Service: 10:39 - Assessment & Plan (1) DLBCL (diffuse large B cell lymphoma) Plan: DLBCL, non-germinal center subtype, involving lungs, small bowel, and right iliac bone. R-IPI score 3 (estimated 4Y PFS 53% and OS 55%). s/p RCHOPx6 cycles. ECOG 1412: Randomized Phase II Open Label Study of Lenalidomide R-CHOP (R2CHOP) vs RCHOP (Rituximab, Cyclophosphamide, Doxorubicin, Vincristine and Prednisone) in Patients with Newly Diagnosed Diffuse Large B Cell Lymphoma - Randomized to control arm, with standard chemotherapy RCHOP, 08/02/15-11/22/15, total of 6 cycles. - Prophylactic LP with IT MTX (elevated LDH, multiple sites of extranodal diseases), total 4 doses. Exit PET/CT scan showed complete remission. No imaging planned in follow-up unless new symptoms arise he has no signs of disease, no B symptoms as of Oct 2021 Will continue with yearly follow-up Dr. Thomas previously had agreed to refill his lyrica and gabapentin as he was in between physicians after Dr. Soto left. Follow Up Instructions: follow-up in 1yr cbc, cmp, ldh at follow-up - History of Present Illness Chief Complaint: Patient is here for a one year follow up with labs for review. No concerns voiced. HPI: PAST MEDICAL HISTORY: CKD III (GFR ion 50s), CHF 2/2 hypertrophy (LVEF 70%), andbaseline grade 1 diabetic neuropathy involving feet. History of DVT after gastric bypass, off anticoagulation. A-fib. PAST SURGICAL HISTORY: Coronary artery s/p stents; Hernia repair; Colon perforation status post repair in 2009; Right knee arthroplasty in ; Sleevegastrectomy in 2011 at [facility]. FAMILY HISTORY: One brother, one son and no cancer. One paternal aunt had unknown type of cancer in her age of 70s. 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 Former smoker with a 100 pack-year smoking history (3 packs perday for 35 years), quit 03/11/2007. Drinking four beers a day four days a week. Denies illicit drug abuse. Summary of Therapies: ECOG 1412: Randomized Phase II Open Label Study of Lenalidomide R-CHOP (R2CHOP) vs RCHOP (Rituximab, Cyclophosphamide, Doxorubicin, Vincristine and Prednisone) in Patients with Newly Diagnosed Diffuse Large B Cell Lymphoma - Randomized to control arm, with standard chemotherapy RCHOP, 08/02/15-11/22/15, total of 6 cycles. - Prophylactic LP with IT MTX (elevated LDH, multiple sites of extranodal diseases), total 4 doses. Exit PET/CT scan showed complete remission. - Course complicated by atypical pneumonia during the third week after cycle 3, hospitalized between 09/29-10/03, received IV vancomycin, Zosyn and Levaquin, discharged on a week course of Augmentin and Levaquin. He had CT chest in 02/2020 at [facility] 11/09/20 had bronchoscopy at [place] in august. told it was scar tissue. No concerns for cancer. He still gets blood tinged sputum. The hypothesis is thathe had some scarring from amiodarone which has contributed to friable mucosa. He has COPD but he breathes ok. occasional some sob. No fevers, sweats chills. no unexplained weight loss. he see Dr. Li and previously seen dr. Edgar Soto. He cannot get his gapabentin and pregabalin refilled currently since Dr. Soto left. he takes xarelto for atrial fibrillation. I have agreed to refill his lyrica 50mg po bid and gapabentin 1200mg bid 11/10/21 He is doing ok overall, recently was admitted 09/20/21-09/24/21 for nonhealing ulcer, ended up having his left great toe amputated on 09/22 for osteomyelitis He feels like he is healing well He denies any B symptoms currently, overall feels well energy and weight are stable denies worsening sob from his baseline labs overall stable - Physical Exam ECOG PS:0 General : patient is alert and oriented to person place and time, no acute distress. Neck: no JVD or thyromegaly. Lymph: no cervical, supraclavicular, axillary or inguinal adenopathy. Heart: regular rate and rhythm no murmurs rubs or gallops. Abdomen: soft nontender nondistended, normoactive bowel sounds. no hepatosplenomegaly. Lungs: clear to auscultation bilaterally. No wheezes, rales, rhonchi. Extremities: no clubbing cyanosis. trace edema bilateral. Goal of Treatment: Curative - Time with Patient Coordination of Care & Counseling Time: Greater than 50% of time spent with patient was for coordination of care (as documented) and [id number] counseling of patient and/or family. [facility] - Medical History Medical History: Medical History (Last Reviewed 09/20/21 @ 19:34 by Pedro Hicks RN) Diabetes mellitus Hx of intestinal obstruction Hyperlipemia Hypertension Hypothyroid - Surgical History Surgical History: Surgical History (Last Reviewed 09/20/21 @ 19:34 by Pedro Hicks RN) H/O heart artery stent History of hernia surgery History of orthopedic surgery S/P gastric surgery - Social History Smoking Status: Former smoker Tobacco Type: cigarettes Substance Use Type: None Additional Data - Additional Objective Data Height/Weight: Height 6 ft Weight 106.458 kg Vital Signs: 11/10/21 09:32 Temperature 97.6 F Pulse Rate [Right Brachial] 51 L Respiratory Rate 18 Blood Pressure [Right Arm] 164/86 H 02 Sat by Pulse Oximetry 97 Oxygen Delivery Method Room Air Distress Screening: RN Distress Screening Start: 01/22/17 10:06 Freq: Q30D Status: Complete Protocol: Document 07/28/19 10:44 BG (Rec: 07/28/19 10:44 BG [id number]) Distress Screening Distress Score: 3 Distress Screening Total 3 - Lab Results Diagram of Most Recent CBC and CMP 11/09/21 15:03 11/09/21 15:04 Labs - Last 7 Days 11/09/21 15:04: PHA Creatinine Clear 78.67, Sodium 137, Potassium 4.5, Chloride 101, Carbon Dioxide 29.2, BUN 25 H, Creatinine 1.22, Est GFR ( Amer) > 60, Est GFR (Non-Af Amer) 60, Glucose 98, Calcium 10.7 H, Total Bilirubin 0.6, AST 22, ALT 16, Alkaline Phosphatase 103 H, Total Protein 7.1, Albumin 3.9, Globulin 3.2, Albumin/Globulin Ratio 1.2 11/09/21 15:03: PHA Creatinine Clear Cancelled, Sodium Cancelled, Potassium Cancelled, Chloride Cancelled, Carbon Dioxide Cancelled, Anion Gap Cancelled, BUN Cancelled, Creatinine Cancelled, Est GFR ( Amer) Cancelled, Est GFR (Non- Af Amer) Cancelled, Glucose Cancelled, Calcium Cancelled, Total Bilirubin Cancelled, AST Cancelled, ALT Cancelled, Alkaline Phosphatase Cancelled, LactateDehydrogenase 186, Total Protein Cancelled, Albumin Cancelled, Globulin Cancelled, Albumin/Globulin Ratio Cancelled 11/09/21 15:03: Corrected WBC 6.4, Uncorrected WBC Count 6.4, RBC 4.85, Hgb 13.6, Hct 42.3, MCV 87.3, MCH 28.0, MCHC 32.0 L, RDW 16.2 H, Plt Count 260, MPV 7.1, Neut % (Auto) 63.7, Lymph % (Auto) 15.5, Sanders % (Auto) 12.3, Eos % (Auto) 7.6, Baso % (Auto) 0.9, Neut # (Auto) 4.1, Lymph # (Auto) 1.0, Sanders # (Auto) 0.8, Eos # (Auto) 0.5 H, Baso # (Auto) 0.1, Nucleated RBC % (auto) 0.1 - Home Medications and Allergies Allergies/Adverse Reactions: Allergies diltiazem Adverse Reaction (Verified 11/10/21 09:32) Palpitations lisinopril Adverse Reaction (Verified 11/10/21 09:32) Swelling of Lip/Tongue/Throat morphine Adverse Reaction (Verified 11/10/21 09:32) Palpitations Home Medications: Home Medications albuterol sulfate 90 mcg/actuation aerosol inhaler 1 puff inhalation Q4-6H PRN Shortness Of Breath Or Wheezing 12/24/16 [History Confirmed 11/10/21] allopurinol 300 mg tablet 300 mg PO DAILY 12/24/16 [History Confirmed 11/10/21] atenolol 25 mg tablet 12.5 mg PO HS 12/24/16 [History Confirmed 11/10/21] bumetanide 2 mg tablet 4 mg PO QAM 12/24/16 [History Confirmed 11/10/21] magnesium oxide 400 mg (241.3 mg magnesium) tablet 400 mg PO BID 12/24/16 [History Confirmed 11/10/21] metolazone 2.5 mg tablet 5 mg PO DAILY 12/24/16 [History Confirmed 11/10/21] omeprazole 40 mg capsule,delayed release 40 mg PO BID 12/24/16 [History Confirmed 11/10/21] levothyroxine 100 mcg capsule 50 mcg PO DAILY 07/30/17 [History Confirmed 11/10/21] tramadol 50 mg tablet 100 mg PO Q6H PRN Pain 07/28/19 [History Confirmed 11/10/21] fluticasone propionate 50 mcg/actuation nasal spray,suspension 1 spray intranasal DAILY 05/12/20 [History Confirmed 11/10/21] atorvastatin 10 mg tablet 20 mg PO QHS 10/11/20 [History Confirmed 11/10/21] glyburide 2.5 mg tablet 2.5 mg PO BID 10/11/20 [History Confirmed 11/10/21] potassium chloride 20 mEq tablet,extended release 160 meq PO HS 10/11/20 [History Confirmed 11/10/21] gabapentin 600 mg tablet 1,200 mg PO BID #360 tabs 12/29/20 [Rx Confirmed 11/10/21] aspirin 81 mg capsule 81 mg PO HS 09/20/21 [History Confirmed 11/10/21] cholecalciferol (vitamin D3) 100 mcg (4,000 unit) capsule 4,000 unit PO DAILY 09/20/21 [History Confirmed 11/10/21] docusate sodium 100 mg capsule (Colace) 100 mg PO HS 09/20/21 [History Confirmed 11/10/21] potassium chloride 20 mEq tablet,extended release 100 meq PO QAM #1 tab 09/24/21[Rx Confirmed 11/10/21] Dictated By: Vivian Del Rosario APRN DD/ [id number] Signed By: <Electronically signed by GOLDEN Del Rosario> 11/10/21 [address] [facility] Work Phone: Progress note No data available for this section [facility] Summary Purpose Family History Unknown Family Member Name Dates Details Family history of arterioscl erotic cardiovascular disease: Mother, Father, Brother(V17.49, Z82.49) Status:Active Unknown Family Member Name Dates Details Family history of arterioscl erotic cardiovascular disease: Mother, Father, Brother(V17.49, Z82.49) Status:Active Unknown Family Member Name Dates Details Family history of arterioscl erotic cardiovascular disease: Mother, Father, Brother(V17.49, Z82.49) Status:Active Unknown Family Member Name Dates Details Family history of arterioscl erotic cardiovascular disease: Mother, Father, Brother(V17.49, Z82.49) Status:Active Unknown Family Member Name Dates Details Family history of arterioscl erotic cardiovascular disease: Mother, Father, Brother(V17.49, Z82.49) Status:Active Unknown Family Member Name Dates Details Family history of arterioscl erotic cardiovascular disease: Mother, Father, Brother(V17.49, Z82.49) Status:Active Unknown Family Member Name Dates Details Family history of arterioscl erotic cardiovascular disease: Mother, Father, Brother(V17.49, Z82.49) Status:Active Unknown Family Member Name Dates Details Family history of arterioscl erotic cardiovascular disease: Mother, Father, Brother(V17.49, Z82.49) Status:Active Unknown Family Member Name Dates Details Family history of arterioscl erotic cardiovascular disease: Mother, Father, Brother(V17.49, Z82.49) Status:Active Unknown Family Member Name Dates Details Family history of arterioscl erotic cardiovascular disease: Mother, Father, Brother(V17.49, Z82.49) Status:Active Unknown Family Member Name Dates Details Family history of arterioscl erotic cardiovascular disease: Mother, Father, Brother(V17.49, Z82.49) Status:Active Unknown Family Member Name Dates Details Family history of arterioscl erotic cardiovascular disease: Mother, Father, Brother(V17.49, Z82.49) Status:Active Unknown Family Member Name Dates Details Family history of arterioscl erotic cardiovascular disease: Mother, Father, Brother(V17.49, Z82.49) Status:Active Relationship Condition Age at Onset Recorded Date/T doroteo Not Specified Cardiovascular disease Unknown Diabetes mellitus Unknown Dementia Unknown father Cardiovascular disease Unknown Unknown Family Member Name Dates Details Family history of arterioscl erotic cardiovascular disease: Mother, Father, Brother(V17.49, Z82.49) Status:Active Unknown Family Member Name Dates Details Family history of arterioscl erotic cardiovascular disease: Mother, Father, Brother(V17.49, Z82.49) Status:Active Unknown Family Member Name Dates Details Family history of arterioscl erotic cardiovascular disease: Mother, Father, Brother(V17.49, Z82.49) Status:Active Unknown Family Member Name Dates Details Family history of arterioscl erotic cardiovascular disease: Mother, Father, Brother(V17.49, Z82.49) Status:Active Unknown Family Member Name Dates Details Family history of arterioscl erotic cardiovascular disease: Mother, Father, Brother(V17.49, Z82.49) Status:Active Unknown Family Member Name Dates Details Family history of arterioscl erotic cardiovascular disease: Mother, Father, Brother(V17.49, Z82.49) Status:Active Unknown Family Member Name Dates Details Family history of arterioscl erotic cardiovascular disease: Mother, Father, Brother(V17.49, Z82.49) Status:Active Unknown Family Member Name Dates Details Family history of arterioscl erotic cardiovascular disease: Mother, Father, Brother(V17.49, Z82.49) Status:Active Advance Directives Advance Directive Response Recorded Date/ Time Advance Directives No November 09, 2016 2:46pm Documents on File Type Date Recorded Patient Metal Bumper Expl anation ACP-Advance Directive ACP-Power of Center Rep Documents on File Type Date Recorded Patient Metal Bumper Expl anation ACP-Advance Directive ACP-Power of Center Rep Documents on File Type Date Recorded Patient Metal Bumper Expl anation Advance Directives and Living Will Power of Center Rep Advance Directive Response Recorded Date/ Time Advance Directives No November 09, 2016 3:46pm Chief Complaint and Reason for Visit Chief Complaint Lymphoma Reason for Visit Diabetes 1.5, manage d as type 2 Hypercalcemia A-fib CHF (congestive heart failure), NYHA class I CKD (chronic kidney disease) stage 3, GFR 30-59 ml/min DLBCL (diffuse large B cell lymphoma) Examination of participant in clinical trial Joint pain Obesity (BMI 35.0-39.9 without comorbidity) Peripheral neuropathy Chief Complaint sholder and spine xr ay M10.09 L97.529. skin ulcer-left great toe E87.8 T81.41XA Lymphoma Reason for Visit Cellulitis of foot Diabetic foot ulcer Osteomyelitis Type 2 diabetes mellitus with peripheral neuropathy CKD (chronic kidney disease) stage 3, GFR 30-59 ml/min DLBCL (diffuse large B cell lymphoma) Edema Hemosiderin pigmentation of lower extremity due to varicose veins Peripheral neuropathy Diabetes 1.5, managed as type 2 Hypercalcemia A-fib CHF (congestive heart failure), NYHA class I CKD (chronic kidney disease) stage 3, GFR 30-59 ml/min DLBCL (diffuse large B cell lymphoma) Joint pain Obesity (BMI 35.0-39.9 without comorbidity) Peripheral neuropathy Chief Complaint M10.09 L97.529. skin ulcer-left great toe E87.8 T81.41XA Lymphoma Skin ulcer of left great toe with fat layer expose Reason for Visit Cellulitis of foot Diabetic foot ulcer Osteomyelitis Type 2 diabetes mellitus with peripheral neuropathy CKD (chronic kidney disease) stage 3, GFR 30-59 ml/min DLBCL (diffuse large B cell lymphoma) Edema Hemosiderin pigmentation of lower extremity due to varicose veins Peripheral neuropathy Diabetes 1.5, managed as type 2 Hypercalcemia A-fib CHF (congestive heart failure), NYHA class I CKD (chronic kidney disease) stage 3, GFR 30-59 ml/min DLBCL (diffuse large B cell lymphoma) Joint pain Obesity (BMI 35.0-39.9 without comorbidity) Peripheral neuropathy Chief Complaint L97.529. skin ulcer-left great toe E87.8 T81.41XA Lymphoma L97.522 soof Reason for Visit Cellulitis of foot Diabetic foot ulcer Osteomyelitis Type 2 diabetes mellitus with peripheral neuropathy CKD (chronic kidney disease) stage 3, GFR 30-59 ml/min DLBCL (diffuse large B cell lymphoma) Edema Hemosiderin pigmentation of lower extremity due to varicose veins Peripheral neuropathy Diabetes 1.5, managed as type 2 Hypercalcemia A-fib CHF (congestive heart failure), NYHA class I CKD (chronic kidney disease) stage 3, GFR 30-59 ml/min DLBCL (diffuse large B cell lymphoma) Joint pain Obesity (BMI 35.0-39.9 without comorbidity) Peripheral neuropathy Chief Complaint E87.8 T81.41XA Lymphoma L97.522 soof L97.522 Open Wound Reason for Visit Diabetes 1.5, manage d as type 2 Hypercalcemia A-fib CHF (congestive heart failure), NYHA class I CKD (chronic kidney disease) stage 3, GFR 30-59 ml/min DLBCL (diffuse large B cell lymphoma) Joint pain Obesity (BMI 35.0-39.9 without comorbidity) Peripheral neuropathy Diabetic foot ulcer Hemosiderin pigmentation of lower extremity due to varicose veins Type 2 diabetes mellitus with peripheral neuropathy Chief Complaint T81.41XA Lymphoma L97.522 soof L97.522 Open Wound E03.9 M54.12 M47.22 Reason for Visit Diabetes 1.5, manage d as type 2 Hypercalcemia A-fib CHF (congestive heart failure), NYHA class I CKD (chronic kidney disease) stage 3, GFR 30-59 ml/min DLBCL (diffuse large B cell lymphoma) Joint pain Obesity (BMI 35.0-39.9 without comorbidity) Peripheral neuropathy Diabetic foot ulcer Hemosiderin pigmentation of lower extremity due to varicose veins Type 2 diabetes mellitus with peripheral neuropathy Chief Complaint E03.9 M54.12 M47.22 M10.09 M15.0 Z79.899 Chief Complaint M10.09 M15.0 Z79.899 screeening, hx resection due to perf diverticulum i73.9 Chief Complaint M10.09 M15.0 Z79.899 screeening, hx resection due to perf diverticulum i73.9 Neck Pain Chief Complaint M10.09 M15.0 Z79.899 screeening, hx resection due to perf diverticulum i73.9 M47.817 Neck Pain Neck Pain Chief Complaint M47.817 Neck Pain Neck Pain Neck Pain Chief Complaint Neck Pain Neck Pain Chief Complaint Neck Pain I50.9 R06.02 G89.29 M50.90 Chief Complaint Neck Pain I50.9 R06.02 type 2 diabets mellulitis G89.29 M50.90 Chief Complaint Neck Pain I50.9 R06.02 type 2 diabets mellulitis G89.29 M50.90 I25.10 I42.1 I48.20 I10 E78.5 R41.3 R47.01 Chief Complaint Neck Pain I50.9 R06.02 type 2 diabets devonteulitis G89.29 M50.90 I25.10 I42.1 I48.20 I10 E78.5 R41.3 R47.01 Hypokalemia Chief Complaint I50.9 R06.02 type 2 diabets tatytis G89.29 M50.90 I25.10 I42.1 I48.20 I10 E78.5 R41.3 R47.01 Hypokalemia Chief Complaint type 2 diabets [place] G89.29 M50.90 I25.10 I42.1 I48.20 I10 E78.5 R41.3 R47.01 Hypokalemia M10.9 M15.0 Z79.899 Chief Complaint R41.3 R47.01 Hypokalemia M10.9 M15.0 Z79.899 I89.0 Lymphoma See order Reason for Visit Diabetes 1.5, manage d as type 2 Hypercalcemia A-fib CHF (congestive heart failure), NYHA class I CKD (chronic kidney disease) stage 3, GFR 30-59 ml/min DLBCL (diffuse large B cell lymphoma) Joint pain Obesity (BMI 35.0-39.9 without comorbidity) Peripheral neuropathy Chief Complaint M10.9 M15.0 Z79.899 I89.0 Lymphoma See order R13.14 M86.172 lt great toe Reason for Visit Diabetes 1.5, manage d as type 2 Hypercalcemia A-fib CHF (congestive heart failure), NYHA class I CKD (chronic kidney disease) stage 3, GFR 30-59 ml/min DLBCL (diffuse large B cell lymphoma) Joint pain Obesity (BMI 35.0-39.9 without comorbidity) Peripheral neuropathy Chief Complaint M10.9 M15.0 Z79.899 I89.0 Lymphoma See order R13.14 M86.172 lt great toe weakness, dizzy Reason for Visit Diabetes 1.5, manage d as type 2 Hypercalcemia A-fib CHF (congestive heart failure), NYHA class I CKD (chronic kidney disease) stage 3, GFR 30-59 ml/min DLBCL (diffuse large B cell lymphoma) Joint pain Obesity (BMI 35.0-39.9 without comorbidity) Peripheral neuropathy Bradycardia Diabetes 1.5, managed as type 2 Generalized weakness Hypomagnesemia Symptomatic bradycardia A-fib CHF (congestive heart failure), NYHA class I CKD (chronic kidney disease) stage 3, GFR 30-59 ml/min HTN (hypertension) Obesity (BMI 35.0-39.9 without comorbidity) Chief Complaint M10.9 M15.0 Z79.899 I89.0 Lymphoma See order R13.14 M86.172 lt great toe weakness, dizzy Heart Monitor upon Discharge Reason for Visit Diabetes 1.5, manage d as type 2 Hypercalcemia A-fib CHF (congestive heart failure), NYHA class I CKD (chronic kidney disease) stage 3, GFR 30-59 ml/min DLBCL (diffuse large B cell lymphoma) Joint pain Obesity (BMI 35.0-39.9 without comorbidity) Peripheral neuropathy Bradycardia Diabetes 1.5, managed as type 2 Generalized weakness Hypercalcemia Hyperkalemia Hypokalemia Hypomagnesemia Symptomatic bradycardia A-fib CHF (congestive heart failure), NYHA class I CKD (chronic kidney disease) stage 3, GFR 30-59 ml/min HTN (hypertension) Obesity (BMI 35.0-39.9 without comorbidity) Type 2 diabetes mellitus with peripheral neuropathy Chief Complaint I89.0 Lymphoma See order R13.14 M86.172 lt great toe weakness, dizzy Heart Monitor upon Discharge low heart rate R53.83;M79.89;E83.42;E87.6;E87.5;M10.09;M15.0;Z79. Reason for Visit Diabetes 1.5, manage d as type 2 Hypercalcemia A-fib CHF (congestive heart failure), NYHA class I CKD (chronic kidney disease) stage 3, GFR 30-59 ml/min DLBCL (diffuse large B cell lymphoma) Joint pain Obesity (BMI 35.0-39.9 without comorbidity) Peripheral neuropathy Bradycardia Diabetes 1.5, managed as type 2 Generalized weakness Hypercalcemia Hyperkalemia Hypokalemia Hypomagnesemia Symptomatic bradycardia A-fib CHF (congestive heart failure), NYHA class I CKD (chronic kidney disease) stage 3, GFR 30-59 ml/min HTN (hypertension) Obesity (BMI 35.0-39.9 without comorbidity) Type 2 diabetes mellitus with peripheral neuropathy A-fib CKD (chronic kidney disease) stage 3, GFR 30-59 ml/min Coronary artery disease Generalized weakness Symptomatic bradycardia Chief Complaint R13.14 M86.172 lt great toe weakness, dizzy Heart Monitor upon Discharge low heart rate R53.83;M79.89;E83.42;E87.6;E87.5;M10.09;M15.0;Z79. c02.3 left great toe / (Dr Bolden) e87.8 n18.31 e11.59 chronic nonpressure ulcer l foot r09.89 Reason for Visit Bradycardia Generalized weakness Hypercalcemia Hyperkalemia Hypokalemia Hypomagnesemia Symptomatic bradycardia A-fib CHF (congestive heart failure), NYHA class I CKD (chronic kidney disease) stage 3, GFR 30-59 ml/min Diabetes 1.5, managed as type 2 HTN (hypertension) Obesity (BMI 35.0-39.9 without comorbidity) Type 2 diabetes mellitus with peripheral neuropathy A-fib CKD (chronic kidney disease) stage 3, GFR 30-59 ml/min Coronary artery disease Generalized weakness Symptomatic bradycardia CKD (chronic kidney disease) stage 3, GFR 30-59 ml/min Diabetes 1.5, managed as type 2 Diabetic foot ulcer Inflammation Obesity (BMI 35.0-39.9 without comorbidity) Peripheral neuropathy Chief Complaint R13.14 M86.172 lt great toe weakness, dizzy Heart Monitor upon Discharge low heart rate R53.83;M79.89;E83.42;E87.6;E87.5;M10.09;M15.0;Z79. c02.3 left great toe / (Dr Bolden) e87.8 n18.31 e11.59 chronic nonpressure ulcer l foot r09.89 t17.908a Reason for Visit Bradycardia Generalized weakness Hypercalcemia Hyperkalemia Hypokalemia Hypomagnesemia Symptomatic bradycardia A-fib CHF (congestive heart failure), NYHA class I CKD (chronic kidney disease) stage 3, GFR 30-59 ml/min Diabetes 1.5, managed as type 2 HTN (hypertension) Obesity (BMI 35.0-39.9 without comorbidity) Type 2 diabetes mellitus with peripheral neuropathy A-fib CKD (chronic kidney disease) stage 3, GFR 30-59 ml/min Coronary artery disease Generalized weakness Symptomatic bradycardia CKD (chronic kidney disease) stage 3, GFR 30-59 ml/min Diabetes 1.5, managed as type 2 Diabetic foot ulcer Inflammation Obesity (BMI 35.0-39.9 without comorbidity) Peripheral neuropathy Chief Complaint R13.14 M86.172 lt great toe weakness, dizzy Heart Monitor upon Discharge low heart rate [facility] Follow Up R53.83;M79.89;E83.42;E87.6;E87.5;M10.09;M15.0;Z79. Renal Hosp F/U c02.3 left great toe / (Dr Bolden) Anxiety e87.8 n18.31 e11.59 Medication Discussion - Increase Dose chronic nonpressure ulcer l foot r09.89 t17.908a n18.31 Reason for Visit Bradycardia Generalized weakness Hypercalcemia Hyperkalemia Hypokalemia Hypomagnesemia Symptomatic bradycardia A-fib CHF (congestive heart failure), NYHA class I CKD (chronic kidney disease) stage 3, GFR 30-59 ml/min Diabetes 1.5, managed as type 2 HTN (hypertension) Obesity (BMI 35.0-39.9 without comorbidity) Type 2 diabetes mellitus with peripheral neuropathy A-fib CKD (chronic kidney disease) stage 3, GFR 30-59 ml/min Coronary artery disease Generalized weakness Symptomatic bradycardia CKD (chronic kidney disease) stage 3, GFR 30-59 ml/min Diabetes 1.5, managed as type 2 Diabetic foot ulcer Inflammation Obesity (BMI 35.0-39.9 without comorbidity) Peripheral neuropathy Assessments Diagnosis Onset Date Resolution Status Diabetes 1.5, managed as type 2 acute Hypercalcemia acute A-fib chronic CHF (congestive heart failure), NYHA class I chronic CKD (chronic kidney disease) stage 3, GFR 30-59 ml/min chronic 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 Examination of participant in clinical trial chronic Joint pain chronic Obesity (BMI 35.0-39.9 without comorbidity) chronic Peripheral neuropathy chroni c Chief Complaint WATCHMAN F/U.* WATCHMAN F/U. * Patient is a 65-year-old gentleman returns following recent left atrial appendage watchman device and is doing well. Details of his interventional report are reviewed and follow-up with and his note are also reviewed. He has had no heart failure or angina. He has known left ventricular hypertrophy, ASHD with prior PCI's, hypertension, obesity, prior gastric bypass surgery, lymphoma and chronic atrial fibrillation. 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 * He is following up with Dr. Garcia within the next several weeks at which point he will be transitioned off his Xarelto neither go on clopidogrel versus other antiplatelet Rx, will follow-up with him in 6 months. * SANDRA POTTER is being seen for a 6 month follow-up of. * 66-year-old gentleman returns for follow-up and doing very well. He underwent tarsal metaphalangealamputation for osteomyelitis this past year and is recovered very nicely. * He has underlying history of ASHD, remote PCI LAD, hypertrophic cardiomyopathy with no symptoms currently. He has underlying chronic atrial fibrillation and is already undergone watchman device within the last year he is off his clopidogrel currently on aspirin he is not on anticoagulation. He has had no thromboembolic or bleeding episodes.. * Comorbidities continue to include diabetes, obesity, controlled hypertension. He does have adverse reactions and allergy to NUBIA inhibitors. He remains on atenolol, atorvastatin, aspirin as his primary cardiac meds * He has no complaints of angina, syncope, heart failure, hospitalizations or nitrate usage * Recommendations, obtain appropriate laboratories and follow-up in 6 months * SANDRA POTTER is being seen for a 6 month follow-up of. * 66-year-old gentleman returns for follow-up and doing very well. He underwent tarsal metaphalangealamputation for osteomyelitis this past year and is recovered very nicely. * He has underlying history of ASHD, remote PCI LAD, hypertrophic cardiomyopathy with no symptoms currently. He has underlying chronic atrial fibrillation and is already undergone watchman device within the last year he is off his clopidogrel currently on aspirin he is not on anticoagulation. He has had no thromboembolic or bleeding episodes.. * Comorbidities continue to include diabetes, obesity, controlled hypertension. He does have adverse reactions and allergy to NUBIA inhibitors. He remains on atenolol, atorvastatin, aspirin as his primary cardiac meds * He has no complaints of angina, syncope, heart failure, hospitalizations or nitrate usage * Recommendations, obtain appropriate laboratories and follow-up in 6 months * SANDRA POTTER is being seen for a 6-8 month follow-up of. * 67-year-old gentleman returns for follow-up with episodic hypokalemia which is symptomatic in nature, edema, resolved by increasing his potassium and or Bumex dosing as needed. He is on high-dose Bumex and metolazone diuretics as well as high-dose potassium and magnesium for supplementation. * He has a history of single-vessel ASHD with remote PCI of the LAD, hypertrophic cardiomyopathy, chronic atrial fibrillation, history of Watchman device implantation. He is not on any anticoagulation and off clopidogrel altogether. * Review of his most recent renal profile reveals normal potassium of 3.9 and normal creatinine of 1.12. * Comorbidities continue to include diabetes, exogenous obesity (status post gastric bypass), controlled hypertension, adverse reactions/allergies to NUBIA inhibitors. He is off atenolol altogether due to bradycardia. * On exam he has a bradycardic irregular rhythm he has trace edema * Recommendations, continue current therapies, follow-up again in 6 to 8 months, continuous assessment of renal profile and electrolytes. * SANDRA POTTER is being seen for a 6-8 month follow-up of. * 67-year-old gentleman returns for follow-up with episodic hypokalemia which is symptomatic in nature, edema, resolved by increasing his potassium and or Bumex dosing as needed. He is on high-dose Bumex and metolazone diuretics as well as high-dose potassium and magnesium for supplementation. * He has a history of single-vessel ASHD with remote PCI of the LAD, hypertrophic cardiomyopathy, chronic atrial fibrillation, history of Watchman device implantation. He is not on any anticoagulation and off clopidogrel altogether. * Review of his most recent renal profile reveals normal potassium of 3.9 and normal creatinine of 1.12. * Comorbidities continue to include diabetes, exogenous obesity (status post gastric bypass), controlled hypertension, adverse reactions/allergies to NUBIA inhibitors. He is off atenolol altogether due to bradycardia. * On exam he has a bradycardic irregular rhythm he has trace edema * Recommendations, continue current therapies, follow-up again in 6 to 8 months, continuous assessment of renal profile and electrolytes. Reason for Referral Reason eval and treat for t hyroid disorder Diagnosis 1 Elevated serum free T4 level (R79.89) Diagnosis 2 Chronic fatigue, uns pecified (R53.82) Diagnosis 3 Bradycardia (R00.1) Referral Organization [facility] Family Medicin e [facility] Referring Provider First Name Ingris Referring Provider Last Name Munira Referring Provider Specialty Clinical Nu rse Specialist Referred Organization [facility] Endocrinology Referred Provider Kevin Alfredo Referred Address [address] ,[place], [place],[address] Referred Provider Specialty Internal Med icine Referral Priority Routine General Notes Madelaine Cutler 07/2022 09:09:07 AM >Patient does not want to see Juni and will be seeing Jae in regards Reason *FU 10/22 evaluate Diagnosis 1 Lesion of tongue (K1 4.8) [facility] Referring Provider First Name Geeta Referring Provider Last Name Rohrbacher Referring Provider Specialty Nurse Pract itioner Referred Organization [facility] Referred Provider Sindi Foster Referred Address ,[place], [place],[address] Referred Provider Specialty Ear, Nose an d Throat Referral Priority Routine General Notes Ebony Powell 04:49:33 PM >received today, waiting for notes to be locked to fax Ebony Powell 10/15/2022 09:04:24 AM >notes locked, referral faxed Reason evaluate Diagnosis 1 Cervical back pain w ith evidence of disc disease (M50.90) Diagnosis 2 Osteoarthritis of sp ine with radiculopathy, cervical region (M47.22) Diagnosis 3 Other chronic pain ( G89.29) Diagnosis 4 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 Referring Provider First Name Geeta Referring Provider Last Name Charissarbacher Referring Provider Specialty Nurse Pract itioner Referred Organization [facility] Neurosurgery B vickie Referred Provider Sabino Ding Referred Address [address] [place], [place],[address] Referred Provider Specialty Neurological Surgery Referral Priority Routine General Notes Ebony Powell 11:51:05 AM >received today, sent P2P Reason *FU 09/06 evaluate Diagnosis 1 Memory loss (R41.3) Diagnosis 2 Aphasia (R47.01) Referral Organization [facility] Referring Provider First Name Geeta Referring Provider Last Name Derekacher Referring Provider Specialty Nurse Pract itioner Referred Organization [facility] Referred Provider Wei Soto Referred Address ,[place], [place],[address] Referred Provider Specialty Neurology Referral Priority Routine General Notes Ebony Powell 11:27:06 AM >received today, notes locked, attached pn mgmt docs along with insurnace card, referral faxed Additional Source Comments (unrecognized sect ion and content) No Status Records FoundNo Status Records FoundNo Status Records FoundNo Status Records FoundNo Status Records FoundNo Status Records FoundNo Status Records FoundNo Status Records FoundNo Status Records FoundNo Status Records FoundNo Status Records FoundNo Status Records FoundNo Status Records Found INFORMATION SOURCE (unrecogn ized section and content) DATE CREATED AUTHOR 10/03/2017 [facility] DATE CREATED AUTHOR AUTHOR'S ORGANIZ ATION 07/06/2020 [facility] DATE CREATED AUTHOR AUTHOR'S ORGANIZ ATION 10/10/2020 [facility] DATE CREATED AUTHOR AUTHOR'S ORGANIZ ATION 09/20/2021 [facility] dical Specialist DATE CREATED AUTHOR AUTHOR'S ORGANIZ ATION 11/07/2021 [facility] DATE CREATED AUTHOR AUTHOR'S ORGANIZ ATION 12/15/2021 [facility] DATE CREATED AUTHOR AUTHOR'S ORGANIZ ATION 07/04/2022 [facility] DATE CREATED AUTHOR AUTHOR'S ORGANIZ ATION 09/08/[address] [facility] ical Center DATE CREATED AUTHOR AUTHOR'S ORGANIZ ATION 09/08/2022 [facility] DATE CREATED AUTHOR AUTHOR'S ORGANIZ ATION 12/20/2022 [facility] Center DATE CREATED AUTHOR AUTHOR[facility]S [facility]IZ ATION [facility] DATE CREATED AUTHOR AUTHOR'S ORGANIZ ATION 03/29/2023 [facility] dical Specialists EPIC DATE CREATED AUTHOR AUTHOR'S ORGANIZ ATION 04/05/2023 [facility] Reason for Visit (unrecogniz ed section and content) Wellness Status Reason Specialty Diagnoses / Procedures Referre d By Contact Referred To Contact Diagnoses Hemostasis disorder (HCC) Lung disease HEMOSTASIS, INTERSTITIAL LUNG DISEASE, HISTORY OF AMIODARONE THERAPY Procedures [place] OFFICE/OUTPT VISIT,PROCEDURE ONLY [place] BRNCHSC INCL FLUOR GDNCE DX W/CELL WASHG SPX BRONCHOSCOPY WITH Ulisses Saini MD [address] [address] [facility] Status Reason Specialty Diagnoses / Procedures Referre d By Contact Referred To Contact Diagnoses Hemoptysis Cough Shortness of breath Procedures CT CHEST W/O CONTRAST [facility] Scheduled Active and Recently Administ ered Medications (unrecognized section and content) Medication Order 08/23/2020 08/24/2020 08/25/2020 lidocaine PF 4 % injection 4 mL (COMPLETED) 4 mL, Inhalation, ONCE, On Luisa 08/25/20 at 1200, For 1 dose 1251 (Given - Provid er: Jacey Rizvi, ADELINA) Continuous Medication Order 08/23/2020 08/24/2020 08/25/2020 0.9 % sodium chloride infusion Intravenous, at 100 mL/hr, CONTINUOUS, Starting on Luisa 08/25/20 at 1145 1122 (New Bag - Prov ider: Natasha Gallo RN)1403 (Stopped - Provider: Jacey Rizvi RN) PRN Medication Order 08/23/2020 08/24/2020 08/25/2020 lidocaine PF 1 % injection (CANCELED) PRN, Starting on Luisa 08/25/20 at 1305, Intra-op 1305 (Given - Provid er: Jenny Aviles RN - Comment: Endobronchial) <item> Privacy Markings (unrecogniz ed section and content) Section Author: Rin Rodriguez PROHIBITION ON REDISCLOSURE OF CONFIDENTIAL INFORMATION This notice accompanies a disclosure of information concerning a client made to you with the consent of such client. Care Teams (unrecognized sec tion and content) [employer] Supervisor Relationship Specialty Start Date End Date Russell Li MD PCP - General Orthopedic Surgery 03/30/19 Team Status: Active Member Role Status Dates Sandra Danielson II, DO Attending Provider Active Teri Aragon , DO Primary Care Provider Active Team Status: Inactive Member Role Status Dates Estee Han MD Attending Provider Active Team Status: Inactive Member Role Status Dates PHYSICIAN NO FAMILY Primary Care Provider Active Shirley Persaud MD Attending Provider Active Team Status: Inactive Member Role Status Dates Alden Lal DPM Attending Provider Active PHYSICIAN NO FAMILY Primary Care Provider Active Team Status: Inactive Member Role Status Dates Fannie Ballesteros MD Admit Provider Active Alden Lal DPM Referring Provider Active Teri Aragon , Primary Care Provider Active Shirley Persaud MD Attending Provider Active Casey Bhardwaj MD Other Provider Active Pete Begum DPM Other Provider Active Team Status: Inactive Member Role Status Dates Francisco Li , Primary Care Provider Active Joana Farooq NP-C Attending Provider Active Team Status: Inactive Member Role Status Dates Francisco Li DO Primary Care Provider Active Geeta Dumont APRN REPRODUCER-C Attending Provider Act boogie Team Status: Active Member Role Status Dates Teri Aragon , Primary Care Provider Active Team Status: Inactive Member Role Status Dates Pete Begum DPM Attending Provider Active Team Status: Inactive Member Role Status Dates Teri Aragon , Primary Care Provider Active Joana Farooq NP-C Attending Provider Active Team Status: Inactive Member Role Status Dates Sima Wagner APRN Attending Provider Active Geeta Dumont APRN REPRODUCER-C Primary Care Provider Active Team Status: Inactive Member Role Status Dates Pete Begum DPM Attending Provider Active PHYSICIAN NO FAMILY Primary Care Provider Active Team Status: Active Member Role Status Dates Geeta Dumont APRN REPRODUCER-C Primary Care Provider Active Team Status: Inactive Member Role Status Dates Geeta Dumont APRN REPRODUCER-C Primary Care Provider, Attending Provider Active Team Status: Inactive Member Role Status Dates Geeta Dumont APRN REPRODUCER-C Primary Care Provider Active Joana Farooq REPRODUCER-C Attending Provider Active Stephanie Burgess DO Referring Provider Active Team Status: Inactive Member Role Status Dates Geeta Dumont APRN REPRODUCER-C Primary Care Provider Active Dario Bolden DPM Attending Provider Active Team Status: Inactive Member Role Status Dates Geeta Rohrbacher , JOINTER OPERATOR REPRODUCER-C Primary Care Provider Active Arron Valverde MD Attending Provider Active Team Status: Inactive Member Role Status Dates Geeta Dumont , JOINTER OPERATOR REPRODUCER-C Primary Care Provider Active Lavon Sandoval MD Attending Provider Active Team Status: Inactive Member Role Status Dates Geeta Reedbrynmary , JOINTER OPERATOR REPRODUCER-C Primary Care Provider Active Sabino Ding MD Attending Provider Active Team Status: Inactive Member Role Status Dates Geeta Reedmarian , JOINTER OPERATOR REPRODUCER-C Primary Care Provider Active W Nannette Burgess , DO Attending Provider Active Team Status: Active Member Role Status Dates NON STAFF Primary Care Provider Active Team Status: Inactive Member Role Status Dates Geeta Dumont , JOINTER OPERATOR REPRODUCER-C Attending Provider Act boogie NON STAFF Primary Care Provider Active Team Status: Inactive Member Role Status Dates NON STAFF Primary Care Provider Active Teri Ybarra MD Attending Provider Active Team Status: Inactive Member Role Status Dates NON STAFF Attending Provider Active Team Status: Inactive Member Role Status Dates Vivian Lacy Carin , JOINTER OPERATOR Attending Provider Acti ve Team Status: Inactive Member Role Status Dates Teri Aargon , DO Primary Care Provider Active W Nannette Burgess , DO Attending Provider Active Team Status: Inactive Member Role Status Dates Teri Aragon , DO Primary Care Provider Active Sindi Foster Jr, MD Attending Provider Active Team Status: Inactive Member Role Status Dates Teri Aragon , DO Primary Care Provider Active Dario Bolden DPM Attending Provider Active Team Status: Active Member Role Status Dates Teri Aragon , DO Primary Care Provider Active Bobby Bernabe , DO Emergency Provider Active Barry Cisneros MD Admit Provider, Attending Provider A ctive Alla Schneider RN Other Provider Active W Nannette Burgess , DO Other Provider Active Elroy Werner MD Other Provider Active Viridiana Thompson MD Other Provider Active Deanne Gaxiola MD Other Provider Active Garry Rivera MD Other Provider Active Shameka Melara , JOINTER OPERATOR Other Provider Active Rosemary Rodriguez MD Other Provider Active Yeny Flores MD Other Provider Active Ariane Ramsey MD Other Provider Active Naomi Greenfield , IT SECURITY ARCHITECT-BC Other Provider Active Kelsea Yancey MD Other Provider Active Team Status: Inactive Member Role Status Dates Teri Aragon , DO Primary Care Provider Active Bobby Bernabe , DO Emergency Provider Active Barry Cisneros MD Admit Provider Active Alla Schneider RN Other Provider Active Stephanie Burgess , DO Other Provider Active Elroy Werner MD Other Provider Active Viridiana Thompson MD Other Provider Active Deanne Gxaiola MD Other Provider Active Garry Rivera MD Other Provider Active Shameka Melara APRN Other Provider Active Rosemary Rodriguez MD Other Provider Active Yeny Flores MD Other Provider Active Ariane Ramsey MD Other Provider Active Naomi Greenfield , IT SECURITY ARCHITECT- Other Provider Active Kelsea Yancey MD Other Provider Active Mina Reilly MD Other Provider Active Subhash Duckworth MD Attending Provider Active Team Status: Active Member Role Status Dates Teri Aragon , DO Primary Care Provider Active Deanne Gaxiola MD Attending Provider Active Team Status: Inactive Member Role Status Álvaro Aragon , DO Primary Care Provider Active Deanne Gaxiola MD Attending Provider Active Team Status: Inactive Member Role Status Dates Teri Aragon , DO Primary Care Provider Active LANRE Cooper-C Emergency Provider Active Polly Velasquez MD Admit Provider, Attending Provider Active Team Status: Inactive Member Role Status Dates Teri Aragon , DO Primary Care Provider Active Ingris Lombardo APRN Attending Provider Active Subhash Duckworth MD Referring Provider Active Joana Farooq REPRODUCER-C Other Provider Active Team Status: Active Member Role Status Álvaro Aragon , DO Primary Care Provider Active Sima Wagner APRN Attending Provider Active Team Status: Inactive Member Role Status Dates Alton Espinoza DPM MS Attending Provider Active Geeta Dumont APRN REPRODUCER-C Primary Care Provider Active Team Status: Inactive Member Role Status Álvaro Aragon , DO Primary Care Provider Active Sima Wagner APRN Attending Provider Active Team Status: Active Member Role Status Dates Geeta Dumont APRN REPRODUCER-C Primary Care Provider Active Sindi Foster Jr, MD Attending Provider Active Team Status: Inactive Member Role Status Dates Geeta Dumont APRN REPRODUCER-C Primary Care Provider Active Sindi Foster Jr, MD Attending Provider Active Team Status: Inactive Member Role Status Dates Teri Aragon DO Primary Care Provider Active Start: January 14, 2023 End: January 14, 2023 Sindi Foster Jr, MD Attending Provider Active Start: January 14, 2023 End: January 14, 2023 Team Status: Inactive Member Role Status Dates Teri Aragon DO Primary Care Provider Active Start: January 28, 2023 End: January 28, 2023 Dario Bolden DPM Attending Provider Active Start: January 28, 2023 End: January 28, 2023 Team Status: Inactive Member Role Status Dates Teri Aragon DO Primary Care Provider Active Start: February 08, 2023 End: February 10, 2023 Bobby Bernabe DO Emergency Provider Active Start: February 08, 2023 End: February 10, 2023 Barry Csineros MD Admit Provider Active Start: N ovember 2022 End: February 10, 2023 Alla Schneider RN Other Provider Active Star t: February 08, 2023 End: February 10, 2023 Stephanie Burgess DO Other Provider Active Start : February 08, 2023 End: February 10, 2023 Elroy Werner MD Other Provider Active Start: February 08, 2023 End: February 10, 2023 Viridiana Thompson MD Other Provider Active Start: February 08, 2023 End: February 10, 2023 Deanne Gaxiola MD Other Provider Active St art: February 08, 2023 End: February 10, 2023 Garry Rivera MD Other Provider Active Start: February 08, 2023 End: February 10, 2023 Shameka Melara APRN Other Provider Active Start: February 08, 2023 End: February 10, 2023 Rosemary Rodriguez MD Other Provider Active Start: N ovember 2022 End: February 10, 2023 Yeny Flores MD Other Provider Active Start: February 08, 2023 End: February 10, 2023 Ariane Ramsey MD Other Provider Active Start: N ovember 2022 End: February 10, 2023 Naomi Greenfield , IT SECURITY ARCHITECT- Other Provider Active Sta rt: February 08, 2023 End: February 10, 2023 Kelsea Yancey MD Other Provider Active Start: February 08, 2023 End: February 10, 2023 Mina Reilly MD Other Provider Active Start: N ovember 2022 End: February 10, 2023 Subhash Duckworth MD Attending Provider Active Start: February 08, 2023 End: February 10, 2023 Team Status: Inactive Member Role Status Dates Teri Aragon DO Primary Care Provider Active Start: February 10, 2023 End: February 10, 2023 Deanne Gaxiola MD Attending Provider Active Start: February 10, 2023 End: February 10, 2023 Team Status: Inactive Member Role Status Dates Trei Aragon DO Primary Care Provider Active Start: February 12, 2023 End: February 15, 2023 Humberto Zeng PA-C Emergency Provider Active Start: February 12, 2023 End: February 15, 2023 Polly Velasquez MD Admit Provider, Atte nding Provider Active Start: February 12, 2023 End: February 15, 2023 Team Status: Inactive Member Role Status Dates Provider Conversion Attending Provider Active St art: February 18, 2023 End: February 18, 2023 Team Status: Inactive Member Role Status Dates Teri Aragon DO Primary Care Provider Active Start: February 18, 2023 End: February 18, 2023 Ingris Lombardo APRN Attending Provider Active Start: February 18, 2023 End: February 18, 2023 Subhash Duckworth MD Referring Provider Active Start: February 18, 2023 End: February 18, 2023 DREW Silva Other Provider Active St art: February 18, 2023 End: February 18, 2023 Team Status: Inactive Member Role Status Dates Mina Reilly MD Attending Provider Active Star t: February 21, 2023 End: February 21, 2023 Team Status: Inactive Member Role Status Dates Teri Aragon DO Primary Care Provider Active Start: February 21, 2023 End: February 21, 2023 Sindi Foster Jr, MD Attending Provider Active Start: February 21, 2023 End: February 21, 2023 Team Status: Inactive Member Role Status Dates Teri Aragon DO Primary Care Provider Active Start: February 26, 2023 End: February 26, 2023 Sima Wagner APRN Attending Provider Active St art: February 26, 2023 End: February 26, 2023 Team Status: Inactive Member Role Status Dates Geeta Dumont APRN REPRODUCER-C Attending Provider Act boogie Start: March 05, 2023 End: March 05, 2023 Team Status: Inactive Member Role Status Dates Geeta Dumont APRN REPRODUCER-C Primary Care Provider, Attending Provider Active Start: March 07, 2023 End: March 07, 2023 Team Status: Inactive Member Role Status Dates Geeta Dumont APRN REPRODUCER-C Attending Provider Act boogie Start: March 20, 2023 End: March 20, 2023 Team Status: Inactive Member Role Status Dates lAton Espinoza DPM MS Attending Provider Active Start: March 20, 2023 End: March 20, 2023 Geeta Dumont APRN REPRODUCER-C Primary Care Provider Active Start: March 20, 2023 End: March 20, 2023 Team Status: Inactive Member Role Status Dates Alton Espinoza DPM MS Attending Provider Active Start: March 22, 2023 End: March 22, 2023 Geeta Dumont APRN REPRODUCER-C Primary Care Provider Active Start: March 22, 2023 End: March 22, 2023 Team Status: Inactive Member Role Status Dates Geeta Dumont APRN REPRODUCER-C Primary Care Provider Active Start: March End: March 27, 2023 Sindi Foster Jr, MD Attending Provider Active Start: March 27, 2023 End: March 27, 2023 Team Status: Inactive Member Role Status Dates Geeta Dumont APRN REPRODUCER-C Primary Care Provider, Attending Provider Active Start: April 04, 2023 End: April 04, 2023 Goals (unrecognized section and content) Goals may be documented in a n alternate section FOR RECORDS PERTAINING TO PATIENTS WHO ARE OR HAVE BEEN ENROLLED IN A CHEMICAL DEPENDENCY/SUBSTANCEABUSE PROGRAM, SOME INFORMATION MAY BE OMITTED. This clinical summary was aggregated from multiple sources. Caution should be exercised in using it in the provision of clinical care. This summary normalizes information from multiple sources, and as a consequence, information in this document may materially change the coding, format and clinical context of patient data. In addition, data may be omitted in some cases. CLINICAL DECISIONS SHOULD BE BASED ON THE PRIMARY CLINICAL RECORDS. [facility] provides no warranty or guarantee of the accuracy or completeness of information in this document.
== END 2023-04-12 09:50 | disposition home or self-care (01) ==
LOC: WC 09:49
PROVIDERS: PCP Podiatrist Foot & Ankle Surgery; Visit Provider Podiatrist Foot & Ankle Surgery
DX: E11.621 Type 2 diabetes mellitus with foot ulcer (principal); L97.522 Non-pressure chronic ulcer of other part of left foot with fat layer exposed
CPT/HCPCS: 11042

== ENCOUNTER 2023-04-26 10:24 | Outpatient (OUT) | payer OTHER, SELFPAY | END 2023-04-26 10:25 | disposition home or self-care (01) | LOC: WC 10:24 | PROVIDERS: PCP Podiatrist Foot & Ankle Surgery; Visit Provider Podiatrist Foot & Ankle Surgery | DX: E11.621 Type 2 diabetes mellitus with foot ulcer (principal); L97.522 Non-pressure chronic ulcer of other part of left foot with fat layer exposed | CPT/HCPCS: 11042 ==

== ENCOUNTER 2023-04-29 08:39 | Outpatient (OUT) | payer OTHER, SELFPAY ==
--- OUTSIDE RECORDS SUMMARY | 2023-04-29 08:45 | XMS_ITS | CCD ---
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 Phone MARTÍNEZ, ESSENCE Unavailable Unavailable FRANCISCO LI Unavailable Unavailable MARTÍNEZ, ESSENCE Unavailable Unavailable MARTÍNEZ, ESSENCE Unavailable Unavailable FRANCISCO LI Unavailable Unavailable PAULA FAJARDO Unavailable Unavailabl e FRANCISCO LI Unavailable Unavailable MARTÍNEZ, ESSENCE Unavailable Unavailable MARTÍNEZ, ESSENCE Unavailable Unavailable FRANCISCO LI Unavailable Unavailable Francisco Li Primary Care Provider Brendan Bolaños Attending Provider [phone] Russell Li MD Primary Care Provider [phone] JUSTIN RAO Referring Unavailable RUSSELL LI Primary Care Unavailable Russell Li MD Primary Care Provider [phone] AVASTHI, ULISSES Admitting Unavailable AVASTHI, ULISSES Attending Unavailable GUILLERMORUSSELL Primary Care Unavailable AVASTHI, MARGARET Referring Unavailable RUSSELL LI Primary Care Unavailable AVASTHI, ULISSES Admitting Unavailable AVASTHI, ULISSES Attending Unavailable AVASTHI, MARGARET Referring Unavailable GUILLERMORUSSELL Primary Care Unavailable Francisco Li Unavailable Francisco Li Unavailable Francisco Garcia Unavailable Unavailable Viridiana Burgess Unavailable Unavailable Unavailable Russell Li MD Primary Care Provider Geeta Dumont Unavailable [phone] None, No PCP Unavailable Unavailable Unavailable Unavailable Russell Li MD Primary Care Provider RUSSELL LI Primary Care Unavailable DEVIMAURO Contreras S Referring Unavailable MAURO RANKIN S Referring Unavailable RUSSELL LI Primary Care Unavailable DO Francisco Li Primary Care Provider GOLDEN Dumont Attending Provider [phone] DREW Farooq Attending Provider FILIPE Lal Attending Provider [phone] NO FAMILY, PHYSICIAN Primary Care Provider Unava MD Fannie Souza Admit Provider FILIPE Lal Referring Provider DO Teri Aragon Primary Care Provider MD Shirley Persaud Attending Provider MD Casey Bhardwaj Other Provider FILIPE Begum Other Provider MD Estee Han Attending Provider DO Sandra Danielson II Attending Provider DO Francisco Li Primary Care Provider FILIPE Begum Attending Provider Criselda Renee Attending Unavailable Francisco Li Primary Care Unavailable TERI ARAGON Primary Care Unavailable JACK ALEMAN Attending Unavailable JACK ALEMAN Admitting Unavailable Geeta Dumont Attending Unavailable Geeta Dumont Admitting Unavailable TERI ARAGON Primary Care Unavailable DREW Farooq Attending Provider NO FAMILY, PHYSICIAN Primary Care Provider Unava MD Shirley Zimmerman Attending Provider [phone] DO Teri Aragon Primary Care Provider [phone] GOLDEN Wagner Attending Provider GOLDEN Dumont Primary Care Provider Dario Bolden Primary Care Physician [phone] NO FAMILY, PHYSICIAN Primary Care Provider UnaGOLDEN Mejia Attending Provider Teri Aragon Unavailable GOLDEN Dumont Primary Care Provider GOLDEN Dumont Attending Provider DREW Farooq Attending Provider DO Stephanie Burgess Referring Provider GOLDEN Dumont Primary Care Provider MD Arron Valverde Attending Provider FILIPE Bolden Attending Provider [phone] Unavailable Unavailable MD Lavon Sandoval Attending Provider Lavon Sandoval Unavailable GOLDEN Dumont Primary Care Provider DREW Farooq Attending Provider DO Stephanie Burgess Referring Provider MD Arron Valverde Attending Provider FILIPE Bolden Attending Provider MD Lavon Sandoval Attending Provider Dr. Viridiana Burgess Attending Dr. Teri Marr Primary Care U navailGOLDEN Hargrove Primary Care Provider GOLDEN Dumont Primary Care Provider MD Lavon Sandoval Attending Provider GOLDEN Dumont Attending Provider [phone] GOLDEN Dumont Primary Care Provider MD Lavon Sandoval Attending Provider [phone] MD Sabino Ding Attending Provider [phone] DO Stephanie Burgess Attending Provider Sabino Ding Unavailable Aundrea, Dr. Teri Reyes Primary Care U navailable Aditya, Dr. Viridiana Alvarado Referring Unava ilable Aditya, Dr. Viridiana Alvarado Attending Unava ilable Aditya, Dr. Viridiana Alvarado Attending Unava ilable Aundrea, Dr. Teri Reyes Primary Care U navailable Aditya, Dr. Viridiana Alvarado Referring Unava ilable NON STAFF Primary Care Provider GOLDEN Catalan Primary Care Provider MD Teri Ybarra Attending Provider GOLDEN Dumont Primary Care Provider GOLDEN Dumont Attending Provider [phone] NON STAFF Attending Provider Unavailable Ingris Lombardo Unavailable GOLDEN Dumont Primary Care Provider GOLDEN Dumont Attending Provider GOLDEN Del Rosario Attending Provider DO Sandra Danielson II Attending Provider [phone] DO Teri Aragon Primary Care Provider DO Stephanie Burgess Attending Provider [phone] Timmis, Sindi H Referring Unavailable Timmis, Sindi H Attending Unavailable Adenikemis, Sindi H Admitting Unavailable Dario Bolden Attending Unavailable Dario Bolden Admitting Unavailable NON STAFF Primary Care Provider UnavailMD Teri King Attending Provider GOLDEN Del Rosario Attending Provider DO Sandra Danielson II Attending Provider DO Teri Aragon Primary Care Provider [phone] DO Stephanie Burgess Attending Provider MD Sidni Foster Jr Attending Provider Emerald FILIPE Bailey Attending Provider DO Bobby Bernabe Emergency Provider MD Barry Cisneros Admit Provider MD Barry Cisneros Attending Provider ADELINA Schneider Other Provider Unavailable DO Stephanie Burgess Other Provider MD Elroy Werner Other Provider MD Viridiana Thompson Other Provider MD Deanne Gaxiola Other Provider MD Garry Rivera Other Provider GOLDEN Melchor Other Provider MD Rosemary Rodriguez Other Provider MD [facility] Other Provider MD Ariane Ramsey Other Provider [place] [facility] Naomi Garrett Other Provider MD Kelsea Yancey [...] MD Ariane Ramsey Other Provider [place] [facility]- Naomi Garrett Other Provider MD Kelsea Yancey Other Provider [phone] MD Mina Reilly Other Provider MD Subhash Duckworth Attending Provider MD Deanne Gaxiola Attending Provider SOFIA Zeng Emergency Provider [phone] MD Polly Velasquez Admit Provider MD Polly Velasquez Attending Provider GOLDEN Lombardo Attending Provider MD Subhash Duckworth Referring Provider DREW Farooq Other Provider Mina Reilly Unavailable Prashant Salinas Unavailable DO Teri Aragon Primary Care Provider [phone] GOLDEN Wagner Attending Provider [phone] GOLDEN Dumont Primary Care Provider GOLDEN Dumont Attending Provider FILIPE Espinoza Attending Provider Teri Aragon DO Primary Care Provi richmond DO Teri Aragon Primary Care Provider MD Sindi Foster Jr Attending Provider MD Mina Herrera Attending Provider [phone] TERI ARAGON Primary Care Unava ilVIRIDIANA Wu Attending Unavailable TERI ARAGON HCARLIE Primary Care Unava ilable TOMYS, SINDI H Attending Unavailable WEI SOTO Attending Unavailable SINDI FOSTER H Attending Unavailable WEI SOTO Attending Unavailable DARIO BOLDEN Attending Unavailable DARIO BOLDEN Attending Unavailable Rohrbacher Geeta CERON A Primary Care Provider Unavailable Joana Farooq Consulting Unavailable Ingris Lombardo Attending Unavailable Subhash Duckworth Referring Unavailable Aundrea Teri Primary Care Unavailable Ingris Lombardo Admitting Unavailable Timmis JrSindi H Attending Unavailable Netoalenabjorn, Teri Primary Care Unavailable Timmis Jr, Sindi H Admitting Unavailable CharissarbacherDenaGeeta Admitting Unavailable Derekacher, Geeta Attending Unavailable [facility] Care Unavailable [facility] Care Unavailable Sima Wagner Attending Unavailable Sima Wagner Admitting Unavailable Derekacher, [facility] Primary Care Unavailable Lavon Sandoval Admitting Unavailable Lavon Sandoval Attending Unavailable [facility] Unavailable Trabmarco antoniossi, Mourhaf Admitting Unavailable Trabnuria Mourhaf Attending Unavailable [facility] Care Unavailable Adamowicz II, Sandra J Admitting Unavaila ble Adamowicz II, Sandra J Attending Unavaila ble [facility] Care Unavailable Lavon Sandoval Attending Unavailable Lavon Sandoval Admitting Unavailable [facility] Care Unavailable Polly Velasquez Attending Unavailable Alla Schneider Consulting Unavailable Polly Velasquez Admitting Unavailable Stephanie Burgess Consulting Unavailable Elroy Werner Consulting Unavailable Viridiana Thompson Consulting Unavail able Trabnuria, Mourhaf Consulting Unavailable Garry Rivera Consulting Unavailab Shameka Bo Consulting Unavailable Rosemary Rodriguez Consulting Unavailable Yeny Flores Consulting Unavailab Ariane Be Consulting Unavailable Naomi Greenfield Consulting Unavailable Kelsea Yancey Consulting Unavailable Derekacher, [facility] Primary Care Unavailable Lavon Sandoval Admitting Unavailable Lavon Sandoval Attending Unavailable Rohrbacher, Geeta Primary Care Unavailable Rohrbacher, Getea Admitting Unavailable Rohrbacher, Geeta Attending Unavailable Highlander, Alton D Attending Unavailable Highlander, Peter D Admitting Unavailable Rohrbacher, Geeta Primary Care Unavailable Rohrbacher, Geeta Primary Care Unavailable Elashi, Essam Admitting Unavailable Elashi, Essam Attending Unavailable Timmis Jr, Sindi H Admitting Unavailable Timmis Jr, Sindi H Attending Unavailable Rohrbacher, Geeta Primary Care Unavailable Rohrbacher, Geeta Attending Unavailable Rohrbacher, Geeta Primary Care Unavailable Rohrbacher, Geeta Admitting Unavailable Brown, Dario A Attending Unavailable Braniecki, Teri Primary Care Unavailable Dario Bolden A Admitting Unavailable Rohrbacher, Geeta Admitting Unavailable Rohrbacher, Geeta Attending Unavailable Rohrbacher, Geeta Primary Care Unavailable Highlander, Peter D Attending Unavailable Rohrbacher, Geeta Primary Care Unavailable Highlander, Peter D Admitting Unavailable Braniecki, Teri Primary Care Unavailable Stephanie Burgess Admitting Unavailable Stephanie Burgess Attending Unavailable Timmis Jr, Sindi H Attending Unavailable Timmis Jr, Sindi H Admitting Unavailable Braniecki, Teri Primary Care Unavailable Rohrbacher, Geeta Primary Care Unavailable Stephanie Burgess Nannette Admitting Unavailable Stephanie Burgess Attending Unavailable Rohrbacher, Geeta Primary Care Unavailable Rohrbacher, Geeta Admitting Unavailable Rohrbacher, Geeta Attending Unavailable Rohrbacher, Geeta Admitting Unavailable Rohrbacher, Geeta Attending Unavailable NON STAFF Primary Care Unavailable NON STAFF Primary Care Unavailable Ybarra, Teri Admitting Unavailable Ybarra, Teri Attending Unavailable DaromarArmandaydashefali M Attending Unavailable Braniecki, Teri Primary Care Unavailable Alla Schneider Consulting Unavailable Olgaad Alaa Admitting Unavailable Stephanie Burgess Consulting Unavailable Nicholas Werneran Consulting Unavailable Viridiana Thompson Consulting Unavail able Deanne Gaxiola Consulting Unavailable Garry Rivera Consulting Unavailab Shameka Bo Consulting Unavailable Rosemary Rodriguez Consulting Unavailable Yeny Flores Consulting Unavailab Ariane Be Consulting Unavailable Naomi Greenfield Consulting Unavailable Kelsea Yancey Consulting Unavailable Mina Reilly Consulting Unavailable Geeta Dumont Primary Care Unavailable Sabino Ding Attending Unavailable Sabino Ding Admitting Unavailable Vivian Del Rosario Admitting Unavail able Vivian Del Rosario Attending Unavail able Unavailable Unavailable Unavailable Allergies Allergy Classification Reported Allergen(s) Allergy Type Date of Onset Reaction(s) Facility Angiotensin Converting Enzyme (NUBIA) Inhibitors (4 sources) Lisinopril Drug Allergy 0 Other (See Comments), Swelling, Anaphylaxis [facility] Calcium Channel Blockers (4 sources) dilTIAZem Drug Allergy 0 Itching, Other (See Comments), Palpitations [facility] Opioid Agonists (4 sources) Morphine Drug Allergy 1 Other (See Comments), Palpitations [facility] (20 sources) dilTIAZem; Translations: [diltiazem] Drug Allergy 0 Itching, Other (See Comments), Palpitations, Unknown [facility] (20 sources) Lisinopril; Translations: [lisinopril] Drug Allergy 0 hives, Other (See Comments), Swelling, Anaphylaxis [facility] (20 sources) Morphine; Translations: [morphine] Drug Allergy 1 hives, Other (See Comments), Palpitations, Unknown [facility] (20 sources) Angiotensin Converting Enzyme (Nubia) Inhibitors; Translations: [NUBIA Inhibitors] Allergy to drug (finding) 3 Unknown [facility] [place] [address] [place] Work Phone: (20 sources) Morphine Derivatives; Translations: [Morphine Derivatives] Allergy to drug (finding) [facility] [place] [address] [place] Work Phone: (1 source) Angiotensin-conv erting enzyme inhibitor agent Drug Allergy 3 Unknown [facility] Medications Current Medications Medication Drug Class(es) Dates Sig (Normalized) Sig (Original) acetaminophen 300 mg / codeine phosphate 30 mg oral tablet (2 sources) Opioid Agonist Start: 12-06-2022 End: 04-24-2023 take 1-2 tablets by mouth every six hours as needed for pain acetaminophen-codei ne (Tylenol w/ Codeine #3) 300-30 MG tablet TAKE 1 TO 2 TABLETS BY MOUTH EVERY 6 HOURS NEEDED FOR PAIN 0 12/06/2022 04/24/2023 Discontinued (Therapy completed) acetaminophen 325 mg / HYDROcodone bitartrate 5 mg oral tablet (20 sources) Opioid Agonist Start: 12-07-2022 End: 04-24-2023 HYDROcodone-acetami nophen ([place]) 5-325 MG tablet Start: 09-24-2021 End: 11-10-2021 take 1 tablet by mouth every four hours Hydrocodone-Acetaminophen Discontinued 1 TAB PO Q4H 7 September 24, 2021 November 10, 2021 11:37am acetaminophen 325 mg / oxyCODONE hydrochloride 5 mg oral tablet (20 sources) Opioid Agonist Start: 02-15-2023 take 1 tablet by mouth every six hours Oxycodone-Acetaminophen Active 1 TAB PO Q6H 18 February 15, 2023 Start: 02-15-2017 End: 04-21-2017 take 2 tablets by mouth every four to six hours Oxycodone-Acetaminophen (Percocet) 5-325 mg tablet Discontinued 2 TAB PO EVERY 4-6 HOURS February 15, 2017 April 21, 2017 8:28am [id number] 200 actuat albuterol 0.09 mg/actuat metered dose inhaler (20 sources) beta2-Adrenergic Agonist Start: 01-06-2023 take 2 puff(s) by inhalation every four hours albuterol 90 mcg/actuation inhaler 2 puffs every 4 hours if needed. 0 01/06/2023 Active Start: 12-16-2021 take 1-2 puff(s) by inhalation [...] EVERY 4-6 HOURS December 24, 2016 12:00am albuterol HFA 90 mcg/act inhaler every 6 (six) hours. 0 Active Albuterol Sulfat e HFA 108 (90 [...] Ordered: 10-Jan-2021 Clyde Ferguson Generic Substitution Allowed albuterol 0.833 mg/ml / ipratropium bromide 0.167 mg/ml inhalation solution (3 sources) Anticholinergic, beta2-Adrenergic Agonist Start: 06-30-2020 End: 08-07-2020 take 3 mL by inhalation every six [...] ally Quantity: 0 Refills: 0 Ordered: 15-Jul-2015 Jennifer Burta Status: Other Generic Substitution Allowed Aspir-81 81 [...] take 1 tablet by mouth once daily aspirin 81 mg EC tablet Take 1 tablet (81 mg) by mouth once daily. 0 01/25/2021 Active Start: 04-30-2017 End: 05-12-2020 take 81 [...] Jennifer Burta Status: Other Generic Substitution Allowed Comment on above: Swallow whole. Do no t crush.Take with food or milk. 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 Swallow capsule whole; do not open. If opened accidentally, do not touch eyes; wash hands immediately (product is an eye irritant).. 30 capsule 3 03/28/2023 03/27/2024 Active atorvastatin 20 mg oral tablet (20 sources) HMG-CoA Reductase Inhibitor Start: 09-14-19 22 atorvastatin (Lipitor) 20 MG tablet Start: 02-19-2021 take 1 tablet by fito [...] oral tablet (20 sources) Start: 11-27-2022 take 17585 ug by mouth once daily Biotin Active 17477 MCG PO Daily November 26, 2022 11:00pm take 1 tablet by mouth in the mo rning biotin 24068 MCG tablet Take 1 tablet by mouth in the morning and 1 tablet before bedtime. 0 Active take 1 tablet by mouth twice nadia ly Biotin 05450 MCG 1 tablet Orally TWICE A DAY Active take 1 tablet by mouth once elisabet y Biotin 33341 MCG 1 tablet Orally Once a day Active Biotin Active bumetanide 0.5 mg oral tablet (20 sources) Loop Diuretic Start: 02-10-2023 take 0.5 mg by mouth once daily Bumetanide Active 0.5 MG PO DAILY@0800 30 February 10, 2023 12:00am Start: 12-24-2016 take 1 tablet by fito th in the morning bumetanide (Bumex) 2 MG tablet Take 2 mg by mouth in the morning. 0 12/12/2022 Active Start: 12-24-2016 End: 02-10-2023 take 4 mg by mouth once daily in the morning Bumetanide Discontinued 4 MG PO Every morning December 23, 2016 11:00pm February 10, 2023 2:49pm take 1 tablet by fito th every twelve hours Bumetanide 2 MG 1 tablet Orally bid for 90 days Active take 5 tablets by mo ut once daily bumetanide (Bumex) 0.5 mg tablet Take 5 tablets (2.5 mg) by mouth once daily. 0 Active busPIRone hydrochloride 10 mg oral tablet (11 sources) Start: 03-12-2023 End: 04-27-2023 take 1 tablet by mouth in the morning, then take 1 tablet by mouth in the evening, then take 1 tablet by mouth at bedtime busPIRone (Buspar) 10 MG tablet Indications: Anxiety and depression (CMS/HCC) Take 1 tablet (10 mg) by mouth in the morning and 1 tablet (10 mg) in the evening and 1 tablet (10 mg) before bedtime. 90 tablet 3 03/28/2023 04/27/2023 Active Start: 03-12-2023 take 1 tablet by fito th every twelve hours busPIRone HCl 5 MG 1 tablet Orally Twice a day for 30 days Feb, Active take 1 tablet by fito th three times daily busPIRone (Buspar) 10 mg tablet Take 1 tablet (10 mg) by mouth 3 times a day. 0 Active cephalexin 500 mg oral capsule (2 sources) Cephalosporin Antibacterial take 1 capsule by mouth every six hours Cephalexin 500 MG 1 capsule Orally Four times a day Active chlorhexidine gluconate 1.2 mg/ml mouthwash (2 sources) Start: 023 End: 024 chlorhexidine (Peridex) 0.12 % solution RINSE 15 ML'S TWICE DAILY AFTER BREAKFAST/BEFORE BEDTIME FOLLOWING BRUSHING AND FLOSSING 0 12/06/2022 04/24/2023 Discontinued (Therapy completed) Cholecalciferol (20 sources) Vitamin D Start: take 4000 [IU] by mouth once daily Cholecalciferol (Vitamin D3) Active 4000 UNIT PO Daily September 20, 2021 12:00am Start: 09-20-2021 take 4000 [IU] by mo [facility] once daily Cholecalciferol (Vitamin D3) Active 4000 UNIT PO Daily September 19, 2021 11:00pm Start: 09-20-2021 take 4000 [IU] by mo [facility] once daily Cholecalciferol (Vitamin D3) Active 4000 UNIT PO Daily September 19, 2021 11:00pm cholecalciferol (Vitamin D-3) 50 MCG (2000 UT) capsule Take 1 capsule by mouth. 0 Active take 1 tablet by fito th once daily cholecalciferol (Vitamin D-3) 25 MCG (1000 UT) tablet Take 1 tablet (25 mcg) by mouth once daily. 0 Active Vitamin D 1000 U NIT TABS TAKE 1 TABLET DAILY. Quantity: 0 Refills: 0 Ordered: 06-Dec-2020 DO Active diazePAM 5 mg oral tablet (20 sources) Benzodiazepine Start: 09-10-2022 diazePAM 5 MG 1-2 tablet as needed Orally Once a day for 1 days take 30 minutes prior to procedure Aug, Active Start: 01-01-2022 take 1 tablet by [facility] every twenty-four hours diazePAM 5 MG 1 tablet as needed Orally Once a day for 1 days Dec, Not-Taking docusate sodium 50 mg / sennosides, residential 8.6 mg oral tablet (8 sources) Start: 02-06-2023 take 2 tablets by [...] bedtime) Quantity: 0 Refills: 0 Ordered: 15-Jul-2015 Christiana Burt Status: Other Generic Substitution Allowed FLUoxetine 20 mg oral capsule (13 sources) Serotonin Reuptake Inhibitor Start: 03-20-2023 take 1 capsule by mouth in the morning FLUoxetine (PROzac) 20 MG capsule Take 20 mg by mouth in the morning. 0 03/20/2023 Active Start: 03-05-2023 take 1 capsule by [facility] every twenty-four hours FLUoxetine HCl 10 MG 1 capsule Orally Once a day for 30 days Feb, Active take 1 capsule by [facility] every twenty-four hours FLUoxetine HCl 20 MG 1 capsule Orally Once a day for 30 days Active fluticasone [...] Refills: 0 Ordered: 10-May-2021 DO Start : 1-Apr-2021 Active Start: 05-12-2020 fluticasone (F LONASE) 50 MCG/ACT nasal spray Not currently taking, but will resume after the procedure. 0 05/12/2020 Active Start: 05-12-2020 End: 11-27-2022 Fluticasone Propionate Disco ntinued 1 SPRAY INTRANASAL Daily May 12, 2020 12:00am November 27, 2022 1:32pm take 1 spray(s) nasa l route in the morning fluticasone (Flonase) 50 MCG/ACT nasal spray Administer 1 spray into each nostril in the morning. Shake gently. Before first use, prime pump. After use, clean tip and replace cap.. 0 Active take 1 spray(s) nasa l route once daily Fluticasone Propionate 50 MCG/ACT 1 spray in each nostril Nasally Once a day Not-Taking gabapentin 600 mg oral tablet (20 sources) Anti-epileptic Agent Start: 11-30-2022 take 2 tablets by mouth in the morning gabapentin (Neurontin) 600 MG tablet Take 1,200 mg by mouth in the morning and 1,200 mg before bedtime. 0 11/30/2022 Active Start: 11-30-2022 gabapentin (Ne urontin) 600 MG tablet Take 600 mg by mouth in the morning and 600 mg at noon and 600 mg in the evening and 600 mg before bedtime. 0 11/30/2022 Active Start: 11-10-2020 End: 04-20-2022 take 1200 mg [...] 2018 11:00pm September 20, 2021 6:03pm take 2 tablets by mo uth twice daily gabapentin 600 mg tablet extended release 24 hr Take 2 tablets by mouth 2 times a day. 0 Active take 2 tablets by mo uth [...] by mouth 2 times daily. 0 Active glipiZIDE er 2.5 mg 24 hr extended release oral tablet (20 sources) Sulfonylurea Start: 04-03-2022 take 2.5 mg by mouth twice daily Glipizide Active 2.5 MG PO Twice daily April 03, 2022 12:00am take 1 tablet by fito th every twenty-four hours in the morning glipiZIDE XL (Glucotrol XL) 2.5 MG 24 hr tablet Take 2.5 mg by mouth in the morning and 2.5 mg in the evening. 0 Active take 1 tablet by fito th every twenty-four hours glipiZIDE XL 2.5 MG [...] 29, 2017 11:00pm February 06, 2023 3:06pm levothyroxine (S ynthroid, Levoxyl) 50 MCG tablet Take 25 mcg by mouth 1 (one) time each day at the same time 0 Active levothyroxine (S ynthroid, Levoxyl) 50 MCG tablet 1 (one) time each day at the same time. 0 Active take 1 tablet by fito th once daily in the morning Levothyroxine Sodium 25 MCG TAKE 1 TABLET BY MOUTH ONCE DAILY IN THE MORNING ON AN EMPTY STOMACH for 90 Active take 1 tablet by fito th once daily Synthroid 50 mcg (0.05 mg) oral tablet ; 1 tab(s) orally once a day Quantity: 0 Refills: 0 Ordered: 10-Jan-2021 Clyde Ferguson Generic Substitution Allowed Magnesium (20 sources) take 2 tablets by mo [facility] twice daily Magnesium 250 MG 2 tablet [...] mouth 2 times daily 0 Active magnesium gluconate 500 mg oral tablet (1 source) take 1 tablet by mouth twice daily magnesium gluconate (Magonate) 27.5 mg magne- sium (500 mg) tablet Take 1 tablet (27.5 mg) by mouth 2 times a day. 0 Active magnesium oxide 400 mg oral tablet (20 sources) Start: 12-24-2016 take 400 mg by mouth twice daily Magnesium Oxide Active 400 MG PO Twice daily December 23, 2016 11:00pm Start: 12-24-2016 take 500 mg by mouth twice daily Magnesium Oxide Active 500 MG PO Twice daily December 23, 2016 11:00pm take 1 tablet by [facility] once daily magnesium oxide 400 mg (241.3 mg elemental magnesium) oral tablet ; 1 tab(s) orally once a day Quantity: 0 Refills: 0 Ordered: 15-Jul-2015 Christiana Burt Generic Substitution Allowed methylPREDNISolone 4 mg oral tablet (2 sources) Corticosteroid Start: 11-27-2021 methylPREDNISolone 4 MG as directed Orally daily for 6 days Nov, Active Multivitamin preparation (1 source) take 1 tablet by mouth once daily Multiple Vitamins oral tablet ; 1 tab(s) orally once a day Quantity: 0 Refills: 0 Ordered: 15-Jul-2015 Christiana Burt Generic Substitution Allowed omeprazole 40 mg delayed [...] Sep, Active piroxicam 10 mg oral capsule (19 sources) Nonsteroidal Anti-inflammatory Drug Start: 02-12-2023 take [...] 7:39pm April 03, 2022 8:13am Start: 02-19-2021 KLOR-CON 20 ME Q ER tablet 20 mEq 60 mg AM, 40 mg PM 0 12/06/2022 Active Start: 02-19-2021 take 6 tablets by [...] 2016 11:00pm September 24, 2021 7:40pm take 3 tablets by mo uth in the morning, then take 2 tablets by mouth twice daily in the evening Potassium Chloride ER 20 MEQ 3 tab in AM and 2 Tab at PM Orally Twice a day for 90 days Active take 2 tablets by mo uth every twelve hours Potassium Chloride ER 20 MEQ 2 tablets Orally bid Active take 2 tablets by mo uth every eight hours Potassium Chloride ER 20 MEQ 2 tablets Orally tid Active take 8 tablets by mo ut twice daily in the morning Potassium Chloride [...] DO Active take 8 tablets by mo ut once daily in the evening potassium chloride (KLOR-CON M) 20 MEQ extended release tablet Take 20 mEq by mouth Takes 10 tablets every morning and 8 tablets every evening. Dose was confirmed w/ the patient. Prescribed per certified welding inspector Dr. Burgess in [place]. 0 Active Potassium Chlori de Active potassium chlori de 20 mEq oral tablet, extended release ; take as directed. Quantity: 0 Refills: 0 Ordered: 15-Jul-2015 Uy, Christiana Generic Substitution Allowed potassium chlori de (KLOR-CON M) 20 MEQ extended release tablet Take 140 mEq by mouth 2 times daily 0 Active predniSONE 10 mg oral tablet (1 source) take 1 tablet by mouth once daily predniSONE 10 mg oral tablet ; 1 tab(s) orally once a day Quantity: 0 Refills: 0 Ordered: 15-Jul-2015 AnnikakelyJennifera Status: Other Generic Substitution Allowed rivaroxaban 20 [...] 2016 11:00pm September 20, 2021 6:07pm rOPINIRole 0.25 mg oral tablet (8 sources) Nonergot Dopamine Agonist Start: 03-28-2023 End: 04-27-2023 take 2 tablets by mouth at bedtime rOPINIRole (Requip) 0.25 MG tablet Indications: Restless Leg Syndrome Take 2 tablets (0.5 mg) by mouth at bedtime 60 tablet 11 03/28/2023 04/27/2023 Active Start: 03-25-2023 take 1 tablet by fito th once daily at bedtime rOPINIRole HCl 1 [...] tablet (20 sources) Aldosterone Antagonist Start: 02-11-20 23 take 25 mg by mouth twice daily Spironolactone Active 25 MG PO Twice daily 60 February 10, 2023 12:00am Start: 01-23-2023 End: 01-23-2024 take 25 mg by mouth once daily [...] 100 mg oral tablet (20 sources) Start: 12-05-2022 End: 12-05-2023 take 1 tablet by mouth in the morning thiamine (Vitamin B-1) 100 MG tablet Indications: Memory loss , Polyneuropathy due to type 2 diabetes mellitus (CMS/HCC) Take 1 tablet (100 mg) by mouth in the morning. 30 tablet 11 12/05/2022 12/05/2023 Active take 1 tablet by mouth once elisabet y thiamine (Vitamin B-1) 50 mg tablet Take 1 tablet (50 mg) by mouth once daily. 0 Active tiZANidine 4 mg oral tablet (20 sources) Central alpha-2 Adrenergic Agonist Start: 04-03-2022 take 1 tablet by mouth in the morning, then take 1 tablet by mouth in the evening, then take 1 tablet by mouth at bedtime tiZANidine (Zanaflex) 4 MG tablet Take 4 mg by mouth in the morning and 4 mg in the evening and 4 mg before bedtime. 0 10/15/2022 Active Start: 11-30-2021 take 1 tablet by fito th every eight hours tiZANidine HCl 4 MG 1 tablet as needed Orally Three times a day for 90 days Nov, Active traZODone hydrochloride 50 mg oral tablet (4 sources) Serotonin Reuptake Inhibitor Start: 04-04-2023 take [...] Drug Class(es) Dates Sig (Normalized) Sig (Original) ALPRAZolam 0.25 mg oral tablet (20 sources) [...] day Active clindamycin 300 mg oral capsule (6 sources) Lincosamide Antibacterial Start: 02-15-2023 End: 02-26-2023 [...] 19, 2021 11:00pm November 27, 2022 1:32pm take 2 capsules by m outh every twenty-four hours Colace 100 MG 2 capsule as needed Orally Once a day Active doxycycline monohydrate 100 mg oral capsule (20 [...] Christiana Burt Status: Other Generic Substitution Allowed glyBURIDE 2.5 mg oral tablet (20 sources) [...] tablet (20 sources) Thiazide-like Diuretic Start: 01-25-2022 End: 04-24-2023 take 1 tablet by mouth once daily [...] before bumex take 2 tablets by mo ut in the morning metOLazone (ZAROXOLYN) 2.5 MG [...] capsule Discontinued 30 MG PO Twice daily 6 April 22, 2017 12:00am April 25, 2017 12:03am [...] 6:07pm Start: 12-24-2016 take 2 capsules by m outh four times daily Pregabalin (Lyrica) 75 mg Capsule Active 150 MG PO Four times daily December 24, 2016 1:57pm Start: 12-24-2016 End: 11-10-2020 Pregabalin (Lyrica) 75 mg Ca psule Discontinued 50 MG PO Twice daily December 23, 2016 11:00pm November 10, 2020 10:27am take 1 capsule by mo uth once daily pregabalin (LYRICA) 150 MG capsule Take 150 mg by mouth nightly. 0 Active take 1 capsule by mo uth once daily at bedtime Lyrica 200 MG 1 capsule 1 to 3 hours before bedtime Orally Once a day Active take 1 capsule by mo uth twice daily Pregabalin 50 MG Oral Capsule [...] 11:00pm take 2 tablets by mo uth three times daily as needed traMADol HCl 50 MG 2 tablet as needed Orally 3 times daily Active take 2 tablets by mo uth four times daily as needed traMADol (Ultram) 50 mg tablet Take 2 tablets (100 mg) by mouth 4 times a day as needed. 0 Active Triamcinolone (20 sources) Corticosteroid Start: 01-05-2020 [...] Christiana Burt Status: Other Generic Substitution Allowed Problems Active Problems Problem Classification Problem Date Documented Date Episodic/Chronic Abdominal hernia (20 sources) Hiatal hernia; Translations: [Diaphragmatic hernia without obstruction or gangrene] Episodic Acquired foot deformities (4 sources) Acquired left hallux valgus; Translations: [Hallux valgus (acquired), left foot] Onset: 3 10-23-2022 Chronic Acute myocardial infarction (20 sources) Myocardial infarction; Translations: [Non-ST elevation (NSTEMI) myocardial infarction] 07-28-2019 Chronic Alcohol-related disorders (11 sources) Alcohol abuse; Translations: [Alcohol abuse, uncomplicated] Chronic Anxiety disorders (20 sources) Claustrophobia; Translations: [Claustrophobia] Onset: 3 Chronic Cancer of head and neck (5 sources) 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; Translations: [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, part unspecified] Onset: 3 01-02-2023 Chronic Cardiac dysrhythmias (20 sources) Paroxysmal atrial fibrillation; Translations: [Persistent atrial fibrillation] Onset: 7 12-19-2020 Chronic Comment on above: AFIB Cardiac dysrhythmias (20 sources) Sinus bradycardia; Translations: [Other specified cardiac dysrhythmias] Onset: 3 02-06-2023 Episodic Cardiac dysrhythmias (4 sources) Cardiac dysrhythmias Onset: 7 Chronic kidney disease (20 sources) Chronic kidney disease stage 3; Translations: [Stage 3 chronic kidney disease, unspecified whether stage 3a or 3b CKD] 05-12-2020 Chronic Chronic kidney disease (9 sources) Chronic kidney disease; Translations: [Chronic kidney [...] heart failure; Translations: [Heart failure, unspecified] Onset: 8 Resolved: 2 Chronic Congestive heart failure; nonhypertensive (1 source) Congestive heart failure; nonhypertensive Onset: 8 Coronary atherosclerosis and other heart disease (20 sources) Coronary atherosclerosis; Translations: [Coronary atherosclerosis of [place] coronary artery] Onset: 3 02-13-2023 Chronic Coronary [...] mellitus without complications] Onset: 3 07-28-2019 Chronic Disorders of lipid metabolism (20 sources) Hyperlipidemia; Translations: [Other and unspecified hyperlipidemia] Onset: 1 04-17-2023 Chronic Esophageal disorders (20 sources) Gastro-esophageal reflux disease with esophagitis; Translations: [Gastro-esophageal reflux disease with esophagitis] Onset: 2 Resolved: 2 Chronic Esophageal disorders (1 source) Esophageal disorders Onset: 8 Essential hypertension (20 sources) Hypertensive disorder; Translations: [Unspecified essential hypertension] Onset: 8 07-28-2019 Chronic Essential hypertension (1 source) Essential [...] unspecified organic dust] Chronic Malaise and fatigue (14 sources) Fatigue; Translations: [Chronic fatigue, unspecified] Chronic [...] left foot] Onset: 2 Resolved: 2 Chronic Open wounds of extremities (4 sources) Amputated big toe; Translations: [Complete traumatic amputation of right great toe, initial encounter] Onset: 4 04-17-2023 Chronic Other acquired deformities (20 sources) Spondylolisthesis; Translations: [Spondylolisthesis, cervical region] Episodic Other acquired deformities (1 source) Spondylolisthesis, cervical region Episodic Other aftercare (20 sources) Drug therapy finding; Translations: [Long-term (current) use of other medications] Episodic Other aftercare (2 sources) Encounter for follow-up examination after completed treatment for conditions other than malignant neoplasm Onset: 2 Resolved: 2 Episodic Other aftercare (3 sources) Taking high risk medication; Translations: [Other prison (current) drug therapy] Onset: 3 02-20-2023 Episodic Other circulatory disease (20 sources) Device in situ; Translations: [Other specified cardiac device in situ] 01-09-2021 Chronic Other circulatory disease (9 sources) Presence of other cardiac implants and grafts; Translations: [Presence of Watchman left atrial appendage closure device] Onset: 3 04-17-2023 Chronic Other circulatory disease (20 sources) Patient post angioplasty; Translations: [Other postprocedural status] Onset: 3 04-17-2023 Episodic Other circulatory disease (20 sources) History of clinical finding in subject; Translations: [Personal history of other diseases of circulatory system] Episodic Other circulatory disease (20 sources) H/O: atrial fibrillation; Translations: [Personal history of other diseases of circulatory system] Episodic Other circulatory disease (2 sources) Peripheral vascular angioplasty status; Translations: [Peripheral vascular angioplasty status] Onset: 3 Episodic Other circulatory disease (1 source) Other [...] extremities] Other ear and sense organ disorders (3 sources) Bilateral tinnitus; Translations: [Tinnitus, bilateral] Episodic Other ear and sense organ disorders (1 source) Tinnitus, bilateral Episodic Other endocrine disorders (13 sources) Primary hyperparathyroidism; Translations: [Primary hyperparathyroidism] Onset: 3 11-05-2022 Chronic Other endocrine disorders (4 sources) Primary hyperparathyroidism Chronic Other hereditary and degenerative nervous system conditions (20 sources) Restless legs; Translations: [Restless legs syndrome] Chronic Other hereditary and degenerative nervous system conditions (5 sources) Restless legs syndrome; Translations: [Restless legs syndrome] Onset: 3 Chronic Other injuries and conditions due to external causes (2 sources) Aspiration into respiratory tract; Translations: [Unspecified foreign body in respiratory tract, part unspecified causing other injury, initial encounter] Onset: 4 03-20-2023 Episodic Other lower respiratory disease (7 sources) Interstitial lung disease; Translations: [Interstitial pulmonary [...] Peripheral nerve disease ; Translations: [Polyneuropathy, unspecified] Onset: 3 07-28-2019 Chronic Other nervous system disorders (20 [...] Onset: 3 Chronic Other nervous system disorders (6 sources) Acute postoperative pain; Translations: [Other acute postprocedural pain] 02-15-2023 Episodic Other nervous system disorders (11 sources) Spasmodic movement; Translations: [Fasciculation] Episodic Other nervous system disorders (2 sources) Fasciculation Episodic Other nervous system disorders (1 [...] metabolic disorders (20 sources) Hypercalcemia; Translations: [Hypercalcemia] Onset: 3 11-10-2021 [...] Chronic Other nutritional; endocrine; and metabolic disorders (9 sources) Hypomagnesemia; Translations: [Disorders of magnesium metabolism] 02-06-2023 Chronic Other nutritional; endocrine; and metabolic disorders (14 sources) Hypocalcemia; Translations: [Hypocalcemia] Chronic Other nutritional; [...] obstructive cardiomyopathy; 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] Onset: 1 Resolved: 2 Chronic Peripheral and visceral atherosclerosis (2 sources) Peripheral vascular disease, unspecified; Translations: [Peripheral vascular disease, unspecified] Onset: 3 10-23-2022 Chronic Pleurisy; pneumothorax; pulmonary collapse (20 sources) Atelectasis; Translations: [Atelectasis] Episodic Pneumonia (except that caused by tuberculosis or sexually transmitted disease) (20 sources) Pneumonia; Translations: [Pneumonia, unspecified organism] 07-28-2019 Episodic Residual codes; unclassified (7 sources) Obstructive sleep apnea syndrome; Translations: [Obstructive sleep apnea (adult) (pediatric)] Onset: 1 05-20-2020 Chronic Residual codes; unclassified (20 sources) Sleep apnea; Translations: [Unspecified sleep apnea] Onset: 8 02-20-2023 Chronic Residual codes; unclassified (1 source) Swelling - edema - symptom; Translations: [Edema] Episodic Residual codes; unclassified (20 sources) Edema; Translations: [Edema] Onset: 3 11-12-2019 Episodic Residual codes; unclassified (20 sources) [...] Translations: [Edema] 09-24-2021 Episodic Residual codes; unclassified (18 sources) Disturbance in sleep behavior; Translations: [Sleep disorder, unspecified] Episodic Residual codes; unclassified (1 source) Sleep disorder, unspecified Episodic Residual codes; unclassified (1 source) Localized edema Episodic Residual codes; unclassified (3 sources) Insomnia; Translations: [Insomnia, unspecified] Episodic Residual codes; unclassified (1 source) Insomnia, unspecified Episodic Screening and history of mental health and substance abuse codes (20 sources) Ex-smoker; Translations: [Personal history of tobacco use] Onset: 4 04-17-2023 Episodic Comment on above: Quit in 2006; [...] / I42.1(ICD-9) Onset: 8 Unclassified (1 source) 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 term acute care registered nurse (current) use of aspirin / Z79.82(ICD-9) Onset: 8 Unclassified (1 source) Palpitations / R00.2(ICD-9) Onset: 7 Unclassified (1 source) Shortness of breath / R06.02(ICD-9) Onset: 7 Unclassified (1 source) Hypertensive heart disease with heart failure / I11.0(ICD-9) Onset: 8 Unclassified (1 source) Athscl heart disease of [place] coronary artery w/o ang pctrs / I25.10(ICD-9) [...] / Z87.891(ICD-9) Onset: 8 Unclassified (1 source) penitentiary (current) use of anticoagulants / Z79.01(ICD-9) Onset: 8 Unclassified (1 source) Patient encounter status; Translations: [Examination of participant or control in clinical research] Unclassified (2 sources) Primary hypertension 01-10-2021 Unclassified (1 source) FU WATCHMAN PROCEDURE 01/03 FILBY 12-19-2020 Comment on above: FU WATCHMAN PROCEDUR E 01/03 FILBY Unclassified (1 source) Presence of Watchman left atrial appendage closure device 01-09-2021 Unclassified (1 source) Encounter for pre-operative examination 01-10-2021 Unclassified (10 sources) Inflammatory disorder; Translations: [Inflammation] 02-26-2023 Unclassified (2 sources) Chronic atrial fibrillation, unspecified; Translations: [Chronic atrial fibrillation, unspecified] Onset: 3 Unclassified (1 source) Unspecified foreign body in [...] and giddiness Onset: 08-22-2021 Resolved: 08-22-2021 Episodic Diseases of mouth; excluding dental (3 sources) Other diseases of tongue; Translations: [Lesion of tongue] Onset: 11-05-2022 Episodic Other bone disease and musculoskeletal deformities (2 sources) History of amputation of left foot; Translations: [Acquired absence of other left toe(s)] Onset: 10-23-2022 10-23-2022 Episodic Other diseases of veins and lymphatics (20 sources) Peripheral venous insufficiency; Translations: [Venous insufficiency (chronic) (peripheral)] Onset: 10-23-2022 10-23-2022 Episodic Other gastrointestinal disorders (15 sources) Dysphagia; Translations: [Dysphagia, unspecified] Onset: 01-02-2023 01-02-2023 Episodic Other lower respiratory disease (9 sources) Hemoptysis; Translations: [Hemoptysis] Onset: 05-19-2020 05-19-2020 Episodic Other lower respiratory disease (20 sources) H/O: respiratory disease; Translations: [Personal history of other diseases of respiratory system] Resolved: 01-25-2021 Episodic Other lower respiratory disease (1 source) Cough Episodic Other lower respiratory disease (2 sources) Dyspnea Episodic Other lower respiratory disease (3 sources) Shortness of breath; Translations: [Shortness of breath] Onset: 08-28-2022 Episodic Other non-epithelial cancer of skin (2 sources) Basal cell carcinoma of upper extremity; Translations: [Basal cell carcinoma of skin of right upper limb, including shoulder] Onset: 10-23-2022 10-23-2022 Episodic Other non-traumatic joint disorders (1 source) Pain in right shoulder Onset: 08-22-2021 Resolved: 08-22-2021 Episodic Residual codes; unclassified (7 sources) History of drug therapy; Translations: [Personal history of other drug therapy] Onset: 05-19-2020 05-19-2020 Episodic Residual codes; unclassified (20 sources) History of bradycardia; Translations: [Personal history of other diseases of circulatory system] Resolved: 01-25-2021 Episodic Residual codes; unclassified (20 sources) Amnesia; Translations: [Other amnesia] Onset: 10-25-2022 10-25-2022 Episodic Residual codes; unclassified (3 sources) Other amnesia; Translations: [Other amnesia] Onset: 09-28-2022 Episodic Syncope (2 sources) Syncope; Translations: [Syncope and collapse] Onset: 08-05-2017 10-24-2022 Episodic Unclassified (8 sources) Other persistent atrial fibrillation Onset: 06-12-2021 Resolved: 10-30-2021 Unclassified (15 sources) Amputated toe of left foot; Translations: [Toe amputation status, left] Unclassified (1 source) Onset: 04-17-2023 04-17-2023 Results Test Name Value Interpretation Reference Range Facility Aldosteroneon 04-17-2023 Aldosterone 21.5 ng/dL Normal 0.0-30.[address] [facility] Comment on above: Order Comment: Patie nt Posture before Draw (see Test/Proc Notes):: SITTING Result Comment: This test was developed and its performance characteristics determined by [facility]. It has not been cleared or approved by the Food and Drug Administration. Performed at: [address] [id number] Embedded Case Manager: Wander Ramsay MD, Phone: [phone] BY:[facility] [place], [place] [id number] MEDICAL DIRECTORAPRIL VEGA M.D. Performed By: #### B MP ####[facility] [place] [address] [facility]#### ALD, RENACT ####[facility] , Basic Metabolic Panelon 03-20 Anion gap [Moles/Vol] 12.1 mmol/L Normal 6.0-15.0 [facility] Comment on above: Performed By: #### B MP ####[address] [place] [address] [place]#### ALD, RENACT ####[facility] , Calcium [Mass/Vol] 11.6 mg/dL High 8.6-10.3 [facility] Comment on above: Result Comment: PERF ORMED BY:[address] [place], [place] [id number] MEDICAL DIRECTORAPRIL VEGA M.D. Performed By: #### B MP ####[address]#### ALD, RENACT ####[facility] , Chloride [Moles/Vol] 101 mmol/L Normal 98-107 [facility] Comment on above: Performed By: #### B MP ####[place] [address] [place]#### ALD, RENACT ####[facility] , CO2 [Moles/Vol] 31.4 mmol/L High 21.0-31.0 [facility] Comment on above: Performed By: #### B MP ####[address]#### ALD, RENACT ####[facility] , Creatinine [Mass/Vol] 1.38 mg/dL High 0.70-1.30 [facility] Comment on above: Performed By: #### B MP ####[place] [address] [place]#### ALD, RENACT ####[facility] , GFR/1.73 sq M.predicted MDRD (S/P/Bld) [Vol rate/Area] 56.749 mL/min/{1.73_m2} [facility] Comment on above: Performed By: #### B MP ####[facility] [place] [address] [place]#### ALD, RENACT ####[facility] , Glucose [Mass/Vol] 123 mg/dL High 70-100 [facility] Comment on above: Result Comment: [place] Glucose Reference Range is dependent on time and content of last meal. Glucose of more than 200 mg/dL in a nonstressed, ambulatory subject supports the diagnosis of Diabetes Mellitus. ADA recommended reference range Performed By: #### B MP ####[address] [place] [address] [place]#### ALD, RENACT ####[facility] , Potassium [Moles/Vol] 4.5 mmol/L Normal 3.5-5.1 [facility] Comment on above: Performed By: #### B MP ####[address] [place] [address] [place]#### ALD, RENACT ####[facility] , Sodium [Moles/Vol] 140 mmol/L Normal 136-145 [facility] Comment on above: Performed By: #### B MP ####[facility] [place] [address] [place]#### ALD, RENACT ####[facility] , Urea nitrogen [Mass/Vol] 26 mg/dL High 7-[address] [facility] Comment on above: Performed By: #### B MP ####[place] [address] [place]#### ALD, RENACT ####[facility] , Calcium [Mass/volume] in Ser um or PlasmaOrdered By: Mina Reilly on 04-17-2023 Calcium [Mass/Vol] 11.6 mg/dL 8.6-10.3 [facility] Carbon dioxide, total [Moles /volume] in Serum or PlasmaOrdered By: Mina Reilly on 04-17-2023 CO2 [Moles/Vol] 31.4 mmol/L 21.0-31.0 [facility] Chloride [Moles/volume] in S [place] or PlasmaOrdered By: Mina Reilly on 04-17-2023 Chloride [Moles/Vol] 101 mmol/L 98-107 [facility] Creatinine [Mass/volume] in Serum or PlasmaOrdered By: Mina Reilly on 04-17-2023 Creatinine [Mass/Vol] 1.38 mg/dL 0.70-1.30 [facility] ECG 12 Leadon 04-17-2023 Atrial fibrillation at a controlled rate, right bundle branch block, anterior and lateral T wave inversions, consider ischemia versus LVH. [facility] Work Phone: Glucose [Mass/volume] in Ser um or PlasmaOrdered By: Mina Reilly on 04-17-2023 Glucose [Mass/Vol] 123 mg/dL 70-100 [facility] Comment on above: ADA recommended refe rence rangeRandom Glucose Reference Range is dependent on time and content of last meal. Glucose of more than 200 mg/dL in a nonstressed, ambulatory subject supports the diagnosis of Diabetes Mellitus. No Panel InformationOrdered By: Mina Reilly on 04-17-2023 Estimated GFR (CKD-EPI) 56.749 mL/Min [facility] Creatinine Clearance (Chem N/A [facility] Potassium [Moles/volume] in Serum or PlasmaOrdered By: Mina Reilly on 04-17-2023 Potassium [Moles/Vol] 4.5 mmol/L 3.5-5.1 [facility] Renin Activityon 04-17-2023 Renin Activity 2.367 Normal 0.167-5.[address] [facility] Comment on above: Order Comment: Patie nt Posture before Draw (see Test/Proc Notes):: SITTING Result Comment: This test was developed and its performance characteristics determined by [facility]. It has not been cleared or approved by the Food and Drug Administration. Performed at: [address] [id number] Embedded Case Manager: Wander Ramsay MD, Phone: [phone] BY:[facility] [place], [place] [id number] MEDICAL DIRECTORAPRIL VEGA M.D. Performed By: #### B ####[facility] [place] [address] [facility]#### ALD, RENACT ####[facility] , Serum or plasma anion gap de terminationOrdered By: Mina Reilly on 04-17-2023 Anion gap [Moles/Vol] 12.1 mmol/L 6.0-15.0 [facility] Sodium [Moles/volume] in Ser um or PlasmaOrdered By: Mina Reilly on 04-17-2023 Sodium [Moles/Vol] 140 mmol/L 136-145 [facility] Urea nitrogen [Mass/volume] in Serum or PlasmaOrdered By: Mina Reilly on 04-17-2023 Urea nitrogen [Mass/Vol] 26 mg/dL 7- [facility] Alanine aminotransferase [En zymatic activity/volume] in Serum or PlasmaOrdered By: Geeta Dumont on 04-04-2023 ALT [Catalytic activity/Vol] 16 U/L 7-[address] [facility] Albumin [Mass/volume] in Ser um or Plasma by Bromocresol green (BCG) dye binding methoOrdered By: Geeta Dumont on 04-04-2023 Albumin BCG dye [Mass/Vol] 4.6 g/dL 3.5-5.[address] [facility] Alkaline phosphatase [Enzyma tic activity/volume] in Serum or PlasmaOrdered By: Geeta Dumont on 04-04-2023 ALP [Catalytic activity/Vol] 112 U/L 34-[address] [facility] Aspartate aminotransferase [ Enzymatic activity/volume] in Serum or PlasmaOrdered By: Geeta Dumont on 04-04-2023 AST [Catalytic activity/Vol] 22 U/L 13-[address] [facility] Bilirubin.total [Mass/volume ] in Serum or PlasmaOrdered By: Geeta Dumont on 04-04-2023 Bilirubin [Mass/Vol] 0.7 mg/dL 0.3-1.0 [facility] Calcium [Mass/volume] in Ser um or PlasmaOrdered By: Geeta Dumont on 04-04-2023 Calcium [Mass/Vol] 11.2 mg/dL 8.6-10.3 [facility] Carbon dioxide, total [Moles /volume] in Serum or PlasmaOrdered By: Geeta Dumont on 04-04-2023 CO2 [Moles/Vol] 30.5 mmol/L 21.0-31.0 [facility] Chloride [Moles/volume] in S elmira or PlasmaOrdered By: Geeta Dumont on 04-04-2023 Chloride [Moles/Vol] 102 mmol/L 98-107 [facility] Comprehensive Metabolic Pane anny 04-04-2023 Albumin [Mass/Vol] 4.6 g/dL Normal 3.5-5.7 [facility] Comment on above: Order Comment: Reaso n for Exam Chronic kidney disease, stage 3a Performed By: #### C MP ####[place] [id number] [facility] Albumin/Globulin [Mass ratio] 1.6 {ratio} Normal [facility] Comment on above: Order Comment: Reaso n for Exam Chronic kidney disease, stage 3a Performed By: #### C MP ####[address] [address] [facility] ALP [Catalytic activity/Vol] 112 U/L High 34-[address] [facility] Comment on above: Order Comment: Reaso n for Exam Chronic kidney disease, stage 3a Result Comment: PERF ORMED BY:[address] [place], [place] [phone] MEDICAL DIRECTORAPRIL VEGA M.D. Performed By: #### C MP ####[address] [address] [facility] ALT [Catalytic activity/Vol] 16 U/L Normal 7-[address] [facility] Comment on above: Order Comment: Reaso n for Exam Chronic kidney disease, stage 3a Performed By: #### C MP ####[address] [address] [facility] Anion gap [Moles/Vol] 10.0 mmol/L Normal 6.0-15.0 [facility] Comment on above: Order Comment: Reaso n for Exam Chronic kidney disease, stage 3a Performed By: #### C MP ####[address] [address] [facility] AST [Catalytic activity/Vol] 22 U/L Normal 13-[address] [facility] Comment on above: Order Comment: Reaso n for Exam Chronic kidney disease, stage 3a Performed By: #### C MP ####[address] [address] [facility] Bilirubin [Mass/Vol] 0.7 mg/dL Normal 0.3-1.0 [facility] Comment on above: Order Comment: Reaso n for Exam Chronic kidney disease, stage 3a Performed By: #### C MP ####[address] [address] [facility] Calcium [Mass/Vol] 11.2 mg/dL High 8.6-10.3 [facility] Comment on above: Order Comment: Reaso n for Exam Chronic kidney disease, stage 3a Performed By: #### C MP ####[address] [address] [facility] Chloride [Moles/Vol] 102 mmol/L Normal 98-107 [facility] Comment on above: Order Comment: Reaso n for Exam Chronic kidney disease, stage 3a Performed By: #### C MP ####[address] [address] [facility] CO2 [Moles/Vol] 30.5 mmol/L Normal 21.0-31.0 [facility] Comment on above: Order Comment: Reaso n for Exam Chronic kidney disease, stage 3a Performed By: #### C MP ####[address] [address] [facility] Creatinine [Mass/Vol] 1.49 mg/dL High 0.70-1.30 [facility] Comment on above: Order Comment: Reaso n for Exam Chronic kidney disease, stage 3a Performed By: #### C MP ####[address] [address] [facility] GFR/1.73 sq M.predicted MDRD (S/P/Bld) [Vol rate/Area] 51.759 mL/min/{1.73_m2} [facility] Comment on above: Order Comment: Reaso n for Exam Chronic kidney disease, stage 3a Performed By: #### C MP ####[place] [id number] [facility] Globulin (S) [Mass/Vol] 2.8 g/dL [facility] Comment on above: Order Comment: Reaso n for Exam Chronic kidney disease, stage 3a Performed By: #### C MP ####[place] [id number] [facility] Glucose [Mass/Vol] 169 mg/dL High 70-100 [facility] Comment on above: Order Comment: Reaso n for Exam Chronic kidney disease, stage 3a Result Comment: [facility] Glucose Reference Range is dependent on time and content of last meal. Glucose of more than 200 mg/dL in a nonstressed, ambulatory subject supports the diagnosis of Diabetes Mellitus. ADA recommended reference range Performed By: #### C MP ####[place] [id number] [facility] Potassium [Moles/Vol] 4.5 mmol/L Normal 3.5-5.1 [facility] Comment on above: Order Comment: Reaso n for Exam Chronic kidney disease, stage 3a Performed By: #### C MP ####[place] [id number] [facility] Protein [Mass/Vol] 7.4 g/dL Normal 6.4-8.9 [facility] Comment on above: Order Comment: Reaso n for Exam Chronic kidney disease, stage 3a Performed By: #### C MP ####[place] [id number] [facility] Sodium [Moles/Vol] 138 mmol/L Normal 136-145 [facility] Comment on above: Order Comment: Reaso n for Exam Chronic kidney disease, stage 3a Performed By: #### C MP ####[facility] [id number] [place] [address] [place] Urea nitrogen [Mass/Vol] 31 mg/dL High 7-[address] [facility] Comment on above: Order Comment: Reaso n for Exam Chronic kidney disease, stage 3a Performed By: #### C MP ####[facility] [id number] [place] [id number] [facility] Creatinine [Mass/volume] in Serum or PlasmaOrdered By: Geeta Dumont on 04-04-2023 Creatinine [Mass/Vol] 1.49 mg/dL 0.70-1.30 [facility] Globulin Calc (S) [Mass/Vol] Ordered By: Geeta Dumont on 04-04-2023 Globulin (S) [Mass/Vol] 2.8 g/dL [facility] Glucose [Mass/volume] in Ser um or PlasmaOrdered By: Geeta Dumont on 04-04-2023 Glucose [Mass/Vol] 169 mg/dL 70-100 [facility] Comment on above: ADA recommended refe rence rangeRandom Glucose Reference Range is dependent on time and content of last meal. Glucose of more than 200 mg/dL in a nonstressed, ambulatory subject supports the diagnosis of Diabetes Mellitus. No Panel InformationOrdered By: Geeta Dumont on 04-04-2023 Estimated GFR (CKD-EPI) 51.759 mL/Min [facility] Creatinine Clearance (Chem N/A [facility] Potassium [Moles/volume] in Serum or PlasmaOrdered By: Geeta Dumont on 04-04-2023 Potassium [Moles/Vol] 4.5 mmol/L 3.5-5.1 [facility] Protein [Mass/volume] in Ser um or PlasmaOrdered By: Geeta Dumont on 04-04-2023 Protein [Mass/Vol] 7.4 g/dL 6.4-8.9 [facility] Serum or plasma albumin/glob ulin mass ratioOrdered By: Geeta Dumont on 04-04-2023 Albumin/Globulin [Mass ratio] 1.6 {ratio} [facility] Serum or plasma anion gap de terminationOrdered By: Geeta Dumont on 04-04-2023 Anion gap [Moles/Vol] 10.0 mmol/L 6.0-15.0 [facility] Sodium [Moles/volume] in Ser um or PlasmaOrdered By: Geeta Dumont on 04-04-2023 Sodium [Moles/Vol] 138 mmol/L 136-145 [facility] Urea nitrogen [Mass/volume] in Serum or PlasmaOrdered By: Geeta Dumont on 04-04-2023 Urea nitrogen [Mass/Vol] 31 mg/dL [address] [facility] US arterial pvr rest Tayo US arterial pvr rest LE Normal [facility] MR foot LT wo conon 03-20-19 MR foot LT wo con Normal [facility] XR pre/post mri xrayon 03-20 XR pre/post mri xray Normal [facility] A1C with Estimated Average G luon 03-07-2023 Glucose [Mass/Vol] 180 mg/dL Normal [facility] Comment on above: Order Comment: Reaso n for 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 Result Comment: PERF ORMED BY:[address] [place], [place] [phone] MEDICAL DIRECTORAPRIL VEGA M.D. Performed By: #### C BC, LIPID, A1C [facility], CMP ####[place] [id number] [place] [id number] [facility] HbA1c (Bld) [Mass fraction] 7.9 % High 4.3-5.[address] [facility] Comment on above: Order Comment: Reaso n for 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 Result Comment: Incr eased risk for diabetes: 5.7 - 6.4 diabetes: >6.4 glycemic control for adults with diabetes: <7.0 Performed By: #### C BC, LIPID, A1C WT eA, CMP ####[place] [id number] [place] [id number] [facility] Alanine aminotransferase [En zymatic activity/volume] in Serum or PlasmaOrdered By: Geeta Dumont on 03-07-2023 ALT [Catalytic activity/Vol] 17 U/L 7-[address] [facility] Albumin [Mass/volume] in Ser um or Plasma by Bromocresol green (BCG) dye binding methoOrdered By: Geeta Dumont on 03-07-2023 Albumin BCG dye [Mass/Vol] 4.3 g/dL 3.5-5.[address] [facility] Alkaline phosphatase [Enzyma tic activity/volume] in Serum or PlasmaOrdered By: Geeta Dumont on 03-07-2023 ALP [Catalytic activity/Vol] 119 U/L 34-[address] [facility] Aspartate aminotransferase [ Enzymatic activity/volume] in Serum or PlasmaOrdered By: Geeta Dumont on 03-07-2023 AST [Catalytic activity/Vol] 22 U/L 13-[address] [facility] Basophils Auto (Bld) [#/Vol] Ordered By: Geeta Dumont on 03-07-2023 Basophils (Bld) [#/Vol] 0.1 10*3/uL 0.0-0.[address] [facility] Basophils/100 WBC Auto (Bld) Ordered By: Geeta Dumont on 03-07-2023 Basophils/100 WBC (Bld) 0.9 % . [facility] Bilirubin.total [Mass/volume ] in Serum or PlasmaOrdered By: Geeta Dumont on 03-07-2023 Bilirubin [Mass/Vol] 0.7 mg/dL 0.3-1.0 [facility] Calcium [Mass/volume] in Ser um or PlasmaOrdered By: Geeta Dumont on 03-07-2023 Calcium [Mass/Vol] 11.2 mg/dL 8.6-10.3 [facility] Carbon dioxide, total [Moles /volume] in Serum or PlasmaOrdered By: Geeta Dumont on 03-07-2023 CO2 [Moles/Vol] 28.3 mmol/L 21.0-31.0 [facility] Chloride [Moles/volume] in S [place] or PlasmaOrdered By: Geeta Dumont on 03-07-2023 Chloride [Moles/Vol] 103 mmol/L 98-107 [facility] Cholesterol [Mass/volume] in Serum or PlasmaOrdered By: Geeta Dumont on 03-07-2023 Cholesterol [Mass/Vol] 148 mg/dL 140-[address] [facility] Comment on above: Chol less than 200 m g/dl low riskChol 201-239 mg/dl borderline riskChol 240 mg/dl and greater high risk Cholesterol in LDL Calc [Mas s/Vol]Ordered By: Geeta Dumont on 03-07-2023 Cholesterol in LDL [Mass/Vol] 76 mg/dL 0-[address] [facility] Comment on above: LDL ATP III CLASSIFI CATIONLDL less than 100 mg/dL OptimalLDL 100-129 mg/dL Near or above optimalLDL 130-159 mg/dL Borderline highLDL 160-189 mg/dL HighLDL greater than 189 mg/dL Very high Cholesterol in VLDL Calc [Ma ss/Vol]Ordered By: Geeta Dumont on 03-07-2023 Cholesterol in VLDL [Mass/Vol] 29 mg/dL [facility] Complete Blood Count Auto Di ffon 03-07-2023 Basophils (Bld) [#/Vol] 0.1 10*3/uL Normal 0.0-0.[address] [facility] Comment on above: Order Comment: Reaso n for Exam Electrolyte and fluid disorder;Chronic kidney disease, stage Result Comment: PERF ORMED BY:[address] [place], [place] [phone] MEDICAL DIRECTORAPRIL VEGA M.D. Performed By: #### C BC, LIPID, A1C [facility] eA, CMP ####[facility] [id number] [place] [address] [place] Basophils/100 WBC (Bld) 0.9 % Normal . [facility] Comment on above: Order Comment: Reaso n for Exam Electrolyte and fluid disorder;Chronic kidney disease, stage Performed By: #### C BC, LIPID, A1C [facility] eA, CMP ####[facility] [place] [address] [place] Eosinophils (Bld) [#/Vol] 0.5 10*3/uL High 0.0-0.[address] [facility] Comment on above: Order Comment: Reaso n for Exam Electrolyte and fluid disorder;Chronic kidney disease, stage Performed By: #### C BC, LIPID, A1C [facility] e[facility], CMP ####[address] Eosinophils/100 WBC (Bld) 6.3 % Normal . [facility] Comment on above: Order Comment: Reaso n for Exam Electrolyte and fluid disorder;Chronic kidney disease, stage Performed By: #### C BC, LIPID, A1C [facility] e[facility], CMP ####[address] Erythrocyte distribution width (RBC) [Ratio] 15.8 % High 12.0-14.[address] [facility] Comment on above: Order Comment: Reaso n for Exam Electrolyte and fluid disorder;Chronic kidney disease, stage Performed By: #### C BC, LIPID, A1C [facility] e[facility], CMP ####[address] Hematocrit (Bld) [Volume fraction] 40.4 % Normal 38.8-50.[address] [facility] Comment on above: Order Comment: Reaso n for Exam Electrolyte and fluid disorder;Chronic kidney disease, stage Performed By: #### C BC, LIPID, A1C [facility] e[facility], CMP ####[place] [id number] [facility] Hemoglobin (Bld) [Mass/Vol] 13.1 g/dL Normal 13.0-17.[address] [facility] Comment on above: Order Comment: Reaso n for Exam Electrolyte and fluid disorder;Chronic kidney disease, stage Performed By: #### C BC, LIPID, A1C [facility] e[facility], CMP ####[place] [id number] [facility] Lymphocytes (Bld) [#/Vol] 1.2 10*3/uL Normal 1.00-4.[address] [facility] Comment on above: Order Comment: Reaso n for Exam Electrolyte and fluid disorder;Chronic kidney disease, stage Performed By: #### C BC, LIPID, A1C [facility], CMP ####[address] Lymphocytes/100 WBC (Bld) 15.3 % Normal . [facility] Comment on above: Order Comment: Reaso n for Exam Electrolyte and fluid disorder;Chronic kidney disease, stage Performed By: #### C BC, LIPID, A1C [facility] eA, CMP ####[address] MCH (RBC) [Entitic mass] 27.3 pg Low 27.5-35.[address] [facility] Comment on above: Order Comment: Reaso n for Exam Electrolyte and fluid disorder;Chronic kidney disease, stage Performed By: #### C BC, LIPID, A1C [facility], CMP ####[address] MCV (RBC) [Entitic vol] 84.1 fL Normal 83.5-[address] [facility] Comment on above: Order Comment: Reaso n for Exam Electrolyte and fluid disorder;Chronic kidney disease, stage Performed By: #### C BC, LIPID, A1C [facility] eA, CMP ####[address] Mean Corpuscular HGB Conc 32.4 g/dL Low 32.5-35.[address] [facility] Comment on above: Order Comment: Reaso n for Exam Electrolyte and fluid disorder;Chronic kidney disease, stage Performed By: #### C BC, LIPID, A1C [facility] eA, CMP ####[address] Monocytes (Bld) [#/Vol] 1.1 10*3/uL High 0.0-0.[address] [facility] Comment on above: Order Comment: Reaso n for Exam Electrolyte and fluid disorder;Chronic kidney disease, stage Performed By: #### C BC, LIPID, A1C [facility] eA, CMP ####[address] Monocytes/100 WBC (Bld) 14.1 % Normal . [facility] Comment on above: Order Comment: Reaso n for Exam Electrolyte and fluid disorder;Chronic kidney disease, stage Performed By: #### C BC, LIPID, A1C [facility] eA, CMP ####[place] [id number] [facility] Neutrophils (Bld) [#/Vol] 4.9 10*3/uL Normal 1.8-7.[address] [facility] Comment on above: Order Comment: Reaso n for Exam Electrolyte and fluid disorder;Chronic kidney disease, stage Performed By: #### C BC, LIPID, A1C [facility] eA, CMP ####[place] [id number] [facility] Neutrophils/100 WBC (Bld) 63.4 % Normal . [facility] Comment on above: Order Comment: Reaso n for Exam Electrolyte and fluid disorder;Chronic kidney disease, stage Performed By: #### C BC, LIPID, A1C [facility] e[facility], CMP ####[address] NRBC% 0.1 /100{WBC} Normal 0-0.[address] [facility] Comment on above: Order Comment: Reaso n for Exam Electrolyte and fluid disorder;Chronic kidney disease, stage Performed By: #### C BC, LIPID, A1C [facility] e[facility], CMP ####[address] Platelet mean volume (Bld) [Entitic vol] 6.8 fL Normal 6.6-10.[address] [facility] Comment on above: Order Comment: Reaso n for Exam Electrolyte and fluid disorder;Chronic kidney disease, stage Performed By: #### C BC, LIPID, A1C [facility] eA, CMP ####[place] [id number] [facility] Platelets (Bld) [#/Vol] 280 10*3/uL Normal 150-[address] [facility] Comment on above: Order Comment: Reaso n for Exam Electrolyte and fluid disorder;Chronic kidney disease, stage Performed By: #### C BC, LIPID, A1C [facility] e[facility], CMP ####[place] [id number] [facility] RBC (Bld) [#/Vol] 4.81 10*6/uL Normal 3.90-5.60 [facility] Comment on above: Order Comment: Reaso n for Exam Electrolyte and fluid disorder;Chronic kidney disease, stage Performed By: #### C BC, LIPID, A1C [facility] e[facility], CMP ####[place] [address] [place] [address] [facility] WBC (Bld) [#/Vol] 7.8 10*3/uL Normal 4.1-10.5 [facility] Comment on above: Order Comment: Reaso n for Exam Electrolyte and fluid disorder;Chronic kidney disease, stage Performed By: #### C BC, LIPID, A1C [facility] e[facility], CMP ####[place] [address] [place] [address] [facility] Comprehensive Metabolic Pane anny 03-07-2023 Albumin [Mass/Vol] 4.3 g/dL Normal 3.5-5.7 [facility] Comment on above: Order Comment: Reaso n for Exam Electrolyte and fluid disorder;Chronic kidney disease, stage 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 Performed By: #### C BC, LIPID, A1C [facility] e[facility], CMP ####[place] [address] [place] [address] [facility] Albumin/Globulin [Mass ratio] 1.5 {ratio} Normal [facility] Comment on above: Order Comment: Reaso n for Exam Electrolyte and fluid disorder;Chronic kidney disease, stage 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 Performed By: #### C BC, LIPID, A1C [facility] e[facility], CMP ####[place] [address] [place] [address] [facility] ALP [Catalytic activity/Vol] 119 U/L High 34-[address] [facility] Comment on above: Order Comment: Reaso n for Exam Electrolyte and fluid disorder;Chronic kidney disease, stage 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 Performed By: #### C BC, LIPID, A1C [facility] e[facility], CMP ####[place] [id number] [place] [address] [facility] ALT [Catalytic activity/Vol] 17 U/L Normal 7-[address] [facility] Comment on above: Order Comment: Reaso n for Exam Electrolyte and fluid disorder;Chronic kidney disease, stage 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 Performed By: #### C BC, LIPID, A1C [facility] e[facility], CMP ####[address] [address] [facility] Anion gap [Moles/Vol] 11.5 mmol/L Normal 6.0-15.0 [facility] Comment on above: Order Comment: Reaso n for Exam Electrolyte and fluid disorder;Chronic kidney disease, stage 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 Performed By: #### C BC, LIPID, A1C [facility] e[facility], CMP ####[address] [address] [facility] AST [Catalytic activity/Vol] 22 U/L Normal 13-[address] [facility] Comment on above: Order Comment: Reaso n for Exam Electrolyte and fluid disorder;Chronic kidney disease, stage 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 Performed By: #### C BC, LIPID, A1C [facility] e[facility], CMP ####[address] [address] [facility] Bilirubin [Mass/Vol] 0.7 mg/dL Normal 0.3-1.0 [facility] Comment on above: Order Comment: Reaso n for Exam Electrolyte and fluid disorder;Chronic kidney disease, stage 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 Performed By: #### C BC, LIPID, A1C [facility] e[facility], CMP ####[address] [address] [facility] Calcium [Mass/Vol] 11.2 mg/dL High 8.6-10.3 [facility] Comment on above: Order Comment: Reaso n for Exam Electrolyte and fluid disorder;Chronic kidney disease, stage 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 Performed By: #### C BC, LIPID, A1C [facility] e[facility], CMP ####[address] [address] [facility] Chloride [Moles/Vol] 103 mmol/L Normal 98-107 [facility] Comment on above: Order Comment: Reaso n for Exam Electrolyte and fluid disorder;Chronic kidney disease, stage 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 Performed By: #### C BC, LIPID, A1C [facility] e[facility], CMP ####[address] [address] [facility] CO2 [Moles/Vol] 28.3 mmol/L Normal 21.0-31.0 [facility] Comment on above: Order Comment: Reaso n for Exam Electrolyte and fluid disorder;Chronic kidney disease, stage 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 Performed By: #### C BC, LIPID, A1C [facility] e[facility], CMP ####[place] [id number] [facility] Creatinine [Mass/Vol] 1.59 mg/dL High 0.70-1.30 [facility] Comment on above: Order Comment: Reaso n for Exam Electrolyte and fluid disorder;Chronic kidney disease, stage 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 Performed By: #### C BC, LIPID, A1C [facility] e[facility], CMP ####[address] GFR/1.73 sq M.predicted MDRD (S/P/Bld) [Vol rate/Area] 47.878 mL/min/{1.73_m2} [facility] Comment on above: Order Comment: Reaso n for Exam Electrolyte and fluid disorder;Chronic kidney disease, stage 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 Performed By: #### C BC, LIPID, A1C [facility] e[facility], CMP ####[place] [id number] [facility] Globulin (S) [Mass/Vol] 2.9 g/dL [facility] Comment on above: Order Comment: Reaso n for Exam Electrolyte and fluid disorder;Chronic kidney disease, stage 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 Performed By: #### C BC, LIPID, A1C [facility] e[facility], CMP ####[place] [id number] [facility] Glucose [Mass/Vol] 78 mg/dL Normal 70-100 [facility] Comment on above: Order Comment: Reaso n for Exam Electrolyte and fluid disorder;Chronic kidney disease, stage 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 Result Comment: [facility] Glucose Reference Range is dependent on time and content of last meal. Glucose of more than 200 mg/dL in a nonstressed, ambulatory subject supports the diagnosis of Diabetes Mellitus. ADA recommended reference range Performed By: #### C BC, LIPID, A1C [facility] eA, CMP ####[facility] [place] [address] [facility] Potassium [Moles/Vol] 4.8 mmol/L Normal 3.5-5.1 [facility] Comment on above: Order Comment: Reaso n for Exam Electrolyte and fluid disorder;Chronic kidney disease, stage 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 Performed By: #### C BC, LIPID, A1C [facility] eA, CMP ####[place] [address] [place] [address] [facility] Protein [Mass/Vol] 7.2 g/dL Normal 6.4-8.9 [facility] Comment on above: Order Comment: Reaso n for Exam Electrolyte and fluid disorder;Chronic kidney disease, stage 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 Performed By: #### C BC, LIPID, A1C [facility] e[facility], CMP ####[address] [address] [place] Sodium [Moles/Vol] 138 mmol/L Normal 136-145 [facility] Comment on above: Order Comment: Reaso n for Exam Electrolyte and fluid disorder;Chronic kidney disease, stage 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 Performed By: #### C BC, LIPID, A1C [facility] e[facility], CMP ####[address] [address] [place] Urea nitrogen [Mass/Vol] 32 mg/dL High 7-[address] [facility] Comment on above: Order Comment: Reaso n for Exam Electrolyte and fluid disorder;Chronic kidney disease, stage 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 Performed By: #### C BC, LIPID, A1C [facility] e[facility], CMP ####[address] [address] [place] Creatinine [Mass/volume] in Serum or PlasmaOrdered By: Geeta Dumont on 03-07-2023 Creatinine [Mass/Vol] 1.59 mg/dL 0.70-1.30 [facility] Eosinophils Auto (Bld) [#/Vo l]Ordered By: Geeta Dumont on 03-07-2023 Eosinophils (Bld) [#/Vol] 0.5 10*3/uL 0.0-0.[address] [facility] Eosinophils/100 WBC Auto (Bl d)Ordered By: Geeta Dumont on 03-07-2023 Eosinophils/100 WBC (Bld) 6.3 % . [facility] Erythrocyte distribution wid th Auto (RBC) [Ratio]Ordered By: Geeta Dumont on 03-07-2023 Erythrocyte distribution width (RBC) [Ratio] 15.8 % 12.0-14.[address] [facility] Globulin Calc (S) [Mass/Vol] Ordered By: Geeta Dumont on 03-07-2023 Globulin (S) [Mass/Vol] 2.9 g/dL [facility] Glucose [Mass/volume] in Ser um or PlasmaOrdered By: Geeta Dumont on 03-07-2023 Glucose [Mass/Vol] 78 mg/dL 70-100 [facility] [facility] Comment on above: ADA recommended refe [...] from glycated hemoglobin (Bld) [Mass/Vol] 180 mg/dL [facility] Hematocrit Auto (Bld) [Volum e fraction]Ordered By: Geeta Dumont on 03-07-2023 Hematocrit (Bld) [Volume fraction] 40.4 % 38.8-50.[address] [facility] Hemoglobin A1c percentageOrd ered By: Geeta Dumont on 03-07-2023 HbA1c (Bld) [Mass fraction] 7.9 % 4.3-5.[address] [facility] Comment on above: Increased risk for d iabetes: 5.7 - 6.4diabetes: >6.4glycemic control for adults with diabetes: <7.0 Hemoglobin [Mass/volume] in BloodOrdered By: Geeta Dumont on 03-07-2023 Hemoglobin (Bld) [Mass/Vol] 13.1 g/dL 13.0-17.[address] [facility] Leukocytes [#/volume] correc martin for nucleated erythrocytes in Blood by Automated counOrdered By: Geeta Dumont on 03-07-2023 WBC corrected for nucl RBC Auto (Bld) [#/Vol] 7.8 10*3/uL 4.1-10.[address] [facility] Lipid Panelon 03-07-2023 Cholesterol [Mass/Vol] 148 mg/dL Normal 140-[address] [facility] Comment on above: Order Comment: Reaso n for Exam Electrolyte and fluid disorder;Chronic kidney disease, stage 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 Result Comment: Chol less than 200 mg/dl low risk Chol 201-239 mg/dl borderline risk Chol 240 mg/dl and greater high risk Performed By: #### C BC, LIPID, A1C [facility], CMP ####[facility] [id number] [place] [id number] [facility] Cholesterol in HDL [Mass/Vol] 43 mg/dL Normal 23-[address] [facility] Comment on above: Order Comment: Reaso n for Exam Electrolyte and fluid disorder;Chronic kidney disease, stage 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 Result Comment: HDL CHOL ATP-III CLASSIFICATION Cardiovascular Risk HDL > or equal to 60 mg/dL LOW HDL < 40 mg/dL HIGH Performed By: #### C BC, LIPID, A1C [facility], CMP ####[facility] [id number] [place] [id number] [facility] Cholesterol.total/Cho lesterol in HDL [Mass ratio] 3.4 {ratio} Normal <5.[address] [facility] Comment on above: Order Comment: Reaso n for Exam Electrolyte and fluid disorder;Chronic kidney disease, stage 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 Result Comment: PERF ORMED BY:[address] [place], [place] [id number] MEDICAL DIRECTORAPRIL VEGA M.D. Performed By: #### C BC, LIPID, A1C [facility], CMP ####[place] [id number] LDL Cholesterol,Calculate d 76 mg/dL Normal 0-[address] [facility] Comment on above: Order Comment: Reaso [...] mg/dL Very high Performed By: #### C BC, LIPID, A1C [facility], CMP ####[place] [id number] Triglyceride w/Reflex 147 mg/dL Normal 0-149 [facility] Comment on above: Order Comment: Reaso [...] (CDC) test method. 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 [facility] MCH Auto (RBC) [Entitic mass ]Ordered By: Geeta Dumont on 03-07-2023 MCH (RBC) [Entitic mass] 27.3 pg 27.5-35.[address] [facility] MCHC Auto (RBC) [Mass/Vol]Or dered By: Geeta Dumont on 03-07-2023 MCHC (RBC) [Mass/Vol] 32.4 g/dL 32.5-35.6 [facility] MCV Auto (RBC) [Entitic vol] Ordered By: Geeta Dumont on 03-07-2023 MCV (RBC) [Entitic vol] 84.1 fL 83.5-[address] [facility] Monocytes Auto (Bld) [#/Vol] Ordered By: Geeta Dumont on 03-07-2023 Monocytes (Bld) [#/Vol] 1.1 10*3/uL 0.0-0.[address] [facility] Monocytes/100 WBC Auto (Bld) Ordered By: Geeta Dumont on 03-07-2023 Monocytes/100 WBC (Bld) 14.1 % . [facility] Neutrophils Auto (Bld) [#/Vo l]Ordered By: Geeta Dumont on 03-07-2023 Neutrophils (Bld) [#/Vol] 4.9 10*3/uL 1.8-7.[address] [facility] Neutrophils/100 WBC Auto (Bl d)Ordered By: Geeta Dumont on 03-07-2023 Neutrophils/100 WBC (Bld) 63.4 % . [facility] No Panel InformationOrdered By: Geeta Dumont on 03-07-2023 Estimated GFR (CKD-EPI) 47.878 mL/Min [facility] Creatinine Clearance (Chem N/A [facility] Nucleated erythrocytes [Pres ence] in Blood by Automated countOrdered By: Geeta Dumont on 03-07-2023 Nucleated RBC Auto Ql (Bld) 0.1 /100{WBC} 0-0.[address] [facility] Platelet mean volume Auto (B ld) [Entitic vol]Ordered By: Geeta Dumont on 03-07-2023 Platelet mean volume (Bld) [Entitic vol] 6.8 fL 6.6-10.[address] [facility] Platelets Auto (Bld) [#/Vol] Ordered By: Geeta Dumont on 03-07-2023 Platelets (Bld) [#/Vol] 280 10*3/uL 150-[address] [facility] Potassium [Moles/volume] in Serum or PlasmaOrdered By: Geeta Dumont on 03-07-2023 Potassium [Moles/Vol] 4.8 mmol/L 3.5-5.1 [facility] Protein [Mass/volume] in Ser um or PlasmaOrdered By: Geeta Dumont on 03-07-2023 Protein [Mass/Vol] 7.2 g/dL 6.4-8.9 [facility] RBC Auto (Bld) [#/Vol]Ordere d By: Geeta Dumont on 03-07-2023 RBC (Bld) [#/Vol] 4.81 10*6/uL 3.90-5.60 [facility] Serum or plasma albumin/glob ulin mass ratioOrdered By: Geeta Dumont on 03-07-2023 Albumin/Globulin [Mass ratio] 1.5 {ratio} [facility] Serum or plasma anion gap de terminationOrdered By: Geeta Dumont on 03-07-2023 Anion gap [Moles/Vol] 11.5 mmol/L 6.0-15.0 [facility] Serum or plasma high density lipoprotein (HDL) cholesterol measurementOrdered By: Geeta Dumont on 03-07-2023 Cholesterol in HDL [Mass/Vol] 43 mg/dL 23-[address] [facility] Comment on above: HDL CHOL ATP-III CLA SSIFICATION Cardiovascular RiskHDL > or equal to 60 mg/dL LOWHDL < 40 mg/dL HIGH Serum or plasma total choles terol/high density lipoprotein (HDL) cholesterol mass ratOrdered By: Geeta Dumont on 03-07-2023 Cholesterol.total/Cho lesterol in HDL [Mass ratio] 3.4 {ratio} <5.[address] [facility] Sodium [Moles/volume] in Ser um or PlasmaOrdered By: Geeta Dumont on 03-07-2023 Sodium [Moles/Vol] 138 mmol/L 136-145 [facility] Triglyceride [Mass/volume] i n Serum or PlasmaOrdered By: Geeta Dumont on 03-07-2023 Triglyceride [Mass/Vol] 147 mg/dL 0-[address] [facility] Comment on above: TRIG ATP III CLASSIF ICATIONTRIG less than 150 mg/dL NormalTRIG 150-199 mg/dL Borderline highTRIG 200-500 mg/dL High TRIG greater than 500 mg/dL Very highStandard traceable to the Center for Disease Conrtrol and Prevention (CDC) test method. Urea nitrogen [Mass/volume] in Serum or PlasmaOrdered By: Geeta Dumont on 03-07-2023 Urea nitrogen [Mass/Vol] 32 mg/dL [address] [facility] WBC Auto (Bld) [#/Vol]Ordere d By: Geeta Dumont on 03-07-2023 WBC (Bld) [#/Vol] 7.8 10*3/uL 4.1-10.[address] [facility] [address] soft tissue neck w conon 02-21-2023 CT soft tissue neck w con Normal [facility] Alanine aminotransferase [En zymatic activity/volume] in Serum or PlasmaOrdered By: Joana Farooq on 02-18-2023 ALT [Catalytic activity/Vol] 13 U/L 7-[address] [facility] Albumin [Mass/volume] in Ser um or Plasma by Bromocresol green (BCG) dye binding methoOrdered By: Joana Farooq on 02-18-2023 Albumin BCG dye [Mass/Vol] 4.0 g/dL 3.5-5.[address] [facility] Alkaline phosphatase [Enzyma tic activity/volume] in Serum or PlasmaOrdered By: Joana Farooq on 02-18-2023 ALP [Catalytic activity/Vol] 114 U/L 34-[address] [facility] Aspartate aminotransferase [ Enzymatic activity/volume] in Serum or PlasmaOrdered By: Joana Farooq on 02-18-2023 AST [Catalytic activity/Vol] 19 U/L 13-[address] [facility] Basophils Auto (Bld) [#/Vol] Ordered By: Joana Farooq on 02-18-2023 Basophils (Bld) [#/Vol] 0.0 10*3/uL 0.0-0.[address] [facility] Basophils/100 WBC Auto (Bld) Ordered By: Joana Farooq on 02-18-2023 Basophils/100 WBC (Bld) 0.4 % . [facility] Bilirubin.total [Mass/volume ] in Serum or PlasmaOrdered By: Joana Farooq on 02-18-2023 Bilirubin [Mass/Vol] 0.7 mg/dL 0.3-1.0 [facility] Calcium [Mass/volume] in Ser um or PlasmaOrdered By: Joana Farooq on 02-18-2023 Calcium [Mass/Vol] 11.5 mg/dL 8.6-10.3 [facility] Carbon dioxide, total [Moles /volume] in Serum or PlasmaOrdered By: Joana Farooq on 02-18-2023 CO2 [Moles/Vol] 29.0 mmol/L 21.0-31.0 [facility] Chloride [Moles/volume] in S lemira or PlasmaOrdered By: Joana Farooq on 02-18-2023 Chloride [Moles/Vol] 104 mmol/L 98-107 [facility] Complete Blood Count Auto Di ffon 02-18-2023 Basophils (Bld) [#/Vol] 0.0 10*3/uL Normal 0.0-0.[address] [facility] Comment on above: Order Comment: Reaso n for Exam Fatigue, unspecified type;Swelling of left lower extremity;S Result Comment: PERF ORMED BY:[facility] [place] [id number] MEDICAL DIRECTORAPRIL VEGA M.D. Performed By: #### C BC ####[address] Basophils/100 WBC (Bld) 0.4 % Normal . [facility] Comment on above: Order Comment: Reaso n for Exam Fatigue, unspecified type;Swelling of left lower extremity;S Performed By: #### C BC ####[address] Eosinophils (Bld) [#/Vol] 0.4 10*3/uL Normal 0.0-0.[address] [facility] Comment on above: Order Comment: Reaso n for Exam Fatigue, unspecified type;Swelling of left lower extremity;S Performed By: #### C BC ####[address] Eosinophils/100 WBC (Bld) 4.7 % Normal . [facility] Comment on above: Order Comment: Reaso n for Exam Fatigue, unspecified type;Swelling of left lower extremity;S Performed By: #### C BC ####[address] Erythrocyte distribution width (RBC) [Ratio] 16.1 % High 12.0-14.[address] [facility] Comment on above: Order Comment: Reaso n for Exam Fatigue, unspecified type;Swelling of left lower extremity;S Performed By: #### C BC ####[address] Hematocrit (Bld) [Volume fraction] 38.8 % Normal 38.8-50.[address] [facility] Comment on above: Order Comment: Reaso n for Exam Fatigue, unspecified type;Swelling of left lower extremity;S Performed By: #### C BC ####[address] Hemoglobin (Bld) [Mass/Vol] 12.9 g/dL Low 13.0-17.[address] [facility] Comment on above: Order Comment: Reaso n for Exam Fatigue, unspecified type;Swelling of left lower extremity;S Performed By: #### C BC ####[address] Lymphocytes (Bld) [#/Vol] 0.7 10*3/uL Low 1.00-4.[address] [facility] Comment on above: Order Comment: Reaso n for Exam Fatigue, unspecified type;Swelling of left lower extremity;S Performed By: #### C BC ####[address] Lymphocytes/100 WBC (Bld) 8.6 % Normal . [facility] Comment on above: Order Comment: Reaso n for Exam Fatigue, unspecified type;Swelling of left lower extremity;S Performed By: #### C BC ####[address] MCH (RBC) [Entitic mass] 28.0 pg Normal 27.5-35.[address] [facility] Comment on above: Order Comment: Reaso n for Exam Fatigue, unspecified type;Swelling of left lower extremity;S Performed By: #### C BC ####[address] MCV (RBC) [Entitic vol] 84.1 fL Normal 83.5-[address] [facility] Comment on above: Order Comment: Reaso n for Exam Fatigue, unspecified type;Swelling of left lower extremity;S Performed By: #### C BC ####[address] Mean Corpuscular HGB Conc 33.3 g/dL Normal 32.5-35.[address] [facility] Comment on above: Order Comment: Reaso n for Exam Fatigue, unspecified type;Swelling of left lower extremity;S Performed By: #### C BC ####[address] Monocytes (Bld) [#/Vol] 0.7 10*3/uL Normal 0.0-0.[address] [facility] Comment on above: Order Comment: Reaso n for Exam Fatigue, unspecified type;Swelling of left lower extremity;S Performed By: #### C BC ####[address] Monocytes/100 WBC (Bld) 8.2 % Normal . [facility] Comment on above: Order Comment: Reaso n for Exam Fatigue, unspecified type;Swelling of left lower extremity;S Performed By: #### C BC ####[address] Neutrophils (Bld) [#/Vol] 6.3 10*3/uL Normal 1.8-7.[address] [facility] Comment on above: Order Comment: Reaso n for Exam Fatigue, unspecified type;Swelling of left lower extremity;S Performed By: #### C BC ####[address] Neutrophils/100 WBC (Bld) 78.1 % Normal . [facility] Comment on above: Order Comment: Reaso n for Exam Fatigue, unspecified type;Swelling of left lower extremity;S Performed By: #### C BC ####[address] NRBC% 0.1 /100{WBC} Normal 0-0.[address] [facility] Comment on above: Order Comment: Reaso n for Exam Fatigue, unspecified type;Swelling of left lower extremity;S Performed By: #### C BC ####[address] Platelet mean volume (Bld) [Entitic vol] 7.1 fL Normal 6.6-10.[address] [facility] Comment on above: Order Comment: Reaso n for Exam Fatigue, unspecified type;Swelling of left lower extremity;S Performed By: #### C BC ####[address] Platelets (Bld) [#/Vol] 235 10*3/uL Normal 150-[address] [facility] Comment on above: Order Comment: Reaso n for Exam Fatigue, unspecified type;Swelling of left lower extremity;S Performed By: #### C BC ####[address] RBC (Bld) [#/Vol] 4.61 10*6/uL Normal 3.90-5.60 [facility] Comment on above: Order Comment: Reaso n for Exam Fatigue, unspecified type;Swelling of left lower extremity;S Performed By: #### C BC ####[facility] WBC (Bld) [#/Vol] 8.1 10*3/uL Normal 4.1-10.5 [facility] Comment on above: Order Comment: Reaso n for Exam Fatigue, unspecified type;Swelling of left lower extremity;S Performed By: #### C BC ####[facility] [place] [id number] [facility] Basophils (Bld) [#/Vol] 0.914160532 10*3/uL Normal 0.0-0.2 10*3/uL [employer] Other Basophils/100 WBC (Bld) 0.400 % . % [employer] Other Eosinophils (Bld) [#/Vol] 0.239716297 10*3/uL Normal 0.0-0.45 10*3/uL [employer] Other Eosinophils/100 WBC (Bld) 4.700 % . % [employer] Other Erythrocyte distribution width (RBC) [Ratio] 16.100 % High 12.0-14.8 % [employer] Other Hematocrit (Bld) [Volume fraction] 38.800 % Normal 38.8-50.0 % [employer] Other Hemoglobin (Bld) [Mass/Vol] 12.847388 g/dL Low 13.0-17.0 g/dL [employer] Other Lymphocytes (Bld) [#/Vol] 0.818410470 10*3/uL Low 1.00-4.8 10*3/uL [employer] Other Lymphocytes/100 WBC (Bld) 8.600 % . % [employer] Other MCH (RBC) [Entitic mass] 28.0000 pg Normal 27.5-35.2 pg [employer] Other MCV (RBC) [Entitic vol] 84.1000 fL Normal 83.5-101 fL [employer] Other Monocytes (Bld) [#/Vol] 0.765952657 10*3/uL Normal 0.0-0.8 10*3/uL [employer] Other Monocytes/100 WBC (Bld) 8.200 % . % [employer] Other Neutrophils (Bld) [#/Vol] 6.456524480 10*3/uL Normal 1.8-7.7 10*3/uL [employer] Other Neutrophils/100 WBC (Bld) 78.100 % . % [employer] Other Platelet mean volume (Bld) [Entitic vol] 7.1000 fL Normal 6.6-10.1 fL [employer] Other WBC (Bld) [#/Vol] 8.004975969 10*3/uL Normal 4.1 -10.5 10*3/uL [employer] Other Complete Blood Count Auto Diff 8.1 10*3/uL Normal 4.1-10.5 10*3/uL [employer] Other Complete Blood Count Auto Diff 33.3 g/dL Normal 32.5-35.6 g/dL [employer] Other Complete Blood Count Auto Diff 0.1 /100{WBC} Normal 0-0.5 /100{WBC} [employer] Other Comprehensive Metabolic Pane anny 02-18-2023 Albumin [Mass/Vol] 4.0 g/dL Normal 3.5-5.7 [facility] Comment on above: Order Comment: Reaso n for Exam Fatigue, unspecified type;Swelling of left lower extremity;S Reason for Exam Fatigue, unspecified type Performed By: #### C MP, MG, THYROID SC ####[address] Albumin/Globulin [Mass ratio] 1.3 {ratio} Normal [facility] Comment on above: Order Comment: Reaso n for Exam Fatigue, unspecified type;Swelling of left lower extremity;S Reason for Exam Fatigue, unspecified type Performed By: #### C MP, MG, THYROID SC ####[address] ALP [Catalytic activity/Vol] 114 U/L High 34-[address] [facility] Comment on above: Order Comment: Reaso n for Exam Fatigue, unspecified type;Swelling of left lower extremity;S Reason for Exam Fatigue, unspecified type Performed By: #### C MP, MG, THYROID SC ####[address] ALT [Catalytic activity/Vol] 13 U/L Normal 7-[address] [facility] Comment on above: Order Comment: Reaso n for Exam Fatigue, unspecified type;Swelling of left lower extremity;S Reason for Exam Fatigue, unspecified type Performed By: #### C MP, MG, THYROID SC ####[address] Anion gap [Moles/Vol] 9.0 mmol/L Normal 6.0-15.0 [facility] Comment on above: Order Comment: Reaso n for Exam Fatigue, unspecified type;Swelling of left lower extremity;S Reason for Exam Fatigue, unspecified type Performed By: #### C MP, MG, THYROID SC ####[place] [id number] [facility] AST [Catalytic activity/Vol] 19 U/L Normal 13-[address] [facility] Comment on above: Order Comment: Reaso n for Exam Fatigue, unspecified type;Swelling of left lower extremity;S Reason for Exam Fatigue, unspecified type Performed By: #### C MP, MG, THYROID SC ####[place] [id number] [facility] Bilirubin [Mass/Vol] 0.7 mg/dL Normal 0.3-1.0 [facility] Comment on above: Order Comment: Reaso n for Exam Fatigue, unspecified type;Swelling of left lower extremity;S Reason for Exam Fatigue, unspecified type Performed By: #### C MP, MG, THYROID SC ####[place] [address] Calcium [Mass/Vol] 11.5 mg/dL High 8.6-10.3 [facility] Comment on above: Order Comment: Reaso n for Exam Fatigue, unspecified type;Swelling of left lower extremity;S Reason for Exam Fatigue, unspecified type Performed By: #### C MP, MG, THYROID SC ####[place] [address] Chloride [Moles/Vol] 104 mmol/L Normal 98-107 [facility] Comment on above: Order Comment: Reaso n for Exam Fatigue, unspecified type;Swelling of left lower extremity;S Reason for Exam Fatigue, unspecified type Performed By: #### C MP, MG, THYROID SC ####[place] [address] [place] [id number] [facility] CO2 [Moles/Vol] 29.0 mmol/L Normal 21.0-31.0 [facility] Comment on above: Order Comment: Reaso n for Exam Fatigue, unspecified type;Swelling of left lower extremity;S Reason for Exam Fatigue, unspecified type Performed By: #### C MP, MG, THYROID SC ####[place] [id number] [facility] Creatinine [Mass/Vol] 1.23 mg/dL Normal 0.70-1.30 [facility] Comment on above: Order Comment: Reaso n for Exam Fatigue, unspecified type;Swelling of left lower extremity;S Reason for Exam Fatigue, unspecified type Performed By: #### C MP, MG, THYROID SC ####[place] [address] [place] [id number] [facility] GFR/1.73 sq M.predicted MDRD (S/P/Bld) [Vol rate/Area] mL/min/{1.73_m2} Normal [employer] Other Comment on above: Order Comment: Reaso n for Exam Fatigue, unspecified type;Swelling of left lower extremity;S Reason for Exam Fatigue, unspecified type Performed By: #### C MP, MG, THYROID SC ####[place] [address] [place] [id number] [facility] Globulin (S) [Mass/Vol] 3.0 g/dL [facility] Comment on above: Order Comment: Reaso n for Exam Fatigue, unspecified type;Swelling of left lower extremity;S Reason for Exam Fatigue, unspecified type Performed By: #### C MP, MG, THYROID SC ####[place] [address] [place] [id number] [facility] Glucose [Mass/Vol] 160 mg/dL High 70-100 [facility] Comment on above: Order Comment: Reaso n for Exam Fatigue, unspecified type;Swelling of left lower extremity;S Reason for Exam Fatigue, unspecified type Result Comment: [facility] Glucose Reference Range is dependent on time and content of last meal. Glucose of more than 200 mg/dL in a nonstressed, ambulatory subject supports the diagnosis of Diabetes Mellitus. ADA recommended reference range Performed By: #### C MP, MG, THYROID SC ####[address] Potassium [Moles/Vol] 5.0 mmol/L Normal 3.5-5.1 [facility] Comment on above: Order Comment: Reaso n for Exam Fatigue, unspecified type;Swelling of left lower extremity;S Reason for Exam Fatigue, unspecified type Performed By: #### C MP, MG, THYROID SC ####[place] [address] [place] [id number] [facility] Protein [Mass/Vol] 7.0 g/dL Normal 6.4-8.9 [facility] Comment on above: Order Comment: Reaso n for Exam Fatigue, unspecified type;Swelling of left lower extremity;S Reason for Exam Fatigue, unspecified type Performed By: #### C MP, MG, THYROID SC ####[place] [id number] [facility] Sodium [Moles/Vol] 137 mmol/L Normal 136-145 [facility] Comment on above: Order Comment: Reaso n for Exam Fatigue, unspecified type;Swelling of left lower extremity;S Reason for Exam Fatigue, unspecified type Performed By: #### C MP, MG, THYROID SC ####[facility] [id number] [place] [id number] [facility] Urea nitrogen [Mass/Vol] 22 mg/dL Normal 7-[address] [facility] Comment on above: Order Comment: Reaso n for Exam Fatigue, unspecified type;Swelling of left lower extremity;S Reason for Exam Fatigue, unspecified type Performed By: #### C MP, MG, THYROID SC ####[facility] [id number] Albumin [Mass/Vol] 4.733719 g/dL Normal 3.5-5.7 g/dL [facility] [employer] Other Bilirubin [Mass/Vol] 0.2247257 mg/dL Normal 0.3- 1.0 mg/dL [employer] Other Calcium [Mass/Vol] 11.0769178 mg/dL High 8.6-1 0.3 mg/dL [employer] Other CO2 [Moles/Vol] 29.57876406 mmol/L Normal 21.0-3 1.0 mmol/L [employer] Other Creatinine [Mass/Vol] 1.75426621 mg/dL Normal 0. 70-1.30 mg/dL [employer] Other Potassium [Moles/Vol] 5.55382705 mmol/L Normal 3 .5-5.1 mmol/L [employer] Other Protein [Mass/Vol] 7.746532 g/dL Normal 6.4-8.9 g/dL [employer] Other Comprehensive Metabolic Panel 3.0 g/dL [employer] Other Creatinine [Mass/volume] in Serum or PlasmaOrdered By: Joana Farooq on 02-18-2023 Creatinine [Mass/Vol] 1.23 mg/dL 0.70-1.30 [facility] Eosinophils Auto (Bld) [#/Vo l]Ordered By: Joana Farooq on 02-18-2023 Eosinophils (Bld) [#/Vol] 0.4 10*3/uL 0.0-0.[address] [facility] Eosinophils/100 WBC Auto (Bl d)Ordered By: Joana Farooq on 02-18-2023 Eosinophils/100 WBC (Bld) 4.7 % . [facility] Erythrocyte distribution wid th Auto (RBC) [Ratio]Ordered By: Joana Farooq on 02-18-2023 Erythrocyte distribution width (RBC) [Ratio] 16.1 % 12.0-14.[address] [facility] Erythrocytes [#/volume] in B lood by Automated countOrdered By: Joana Farooq on 02-18-2023 RBC (Bld) [#/Vol] 4.61 10*6/uL 3.90-5.60 [facility] Globulin Calc (S) [Mass/Vol] Ordered By: Joana Farooq on 02-18-2023 Globulin (S) [Mass/Vol] 3.0 g/dL [facility] Glucose [Mass/volume] in Ser um or PlasmaOrdered By: Joana Farooq on 02-18-2023 Glucose [Mass/Vol] 160 mg/dL 70-100 [facility] Comment on above: ADA recommended refe rence rangeRandom Glucose Reference Range is dependent on time and content of last meal. Glucose of more than 200 mg/dL in a nonstressed, ambulatory subject supports the diagnosis of Diabetes Mellitus. Hematocrit Auto (Bld) [Volum e fraction]Ordered By: Joana Farooq on 02-18-2023 Hematocrit (Bld) [Volume fraction] 38.8 % 38.8-50.[address] [facility] Hemoglobin [Mass/volume] in BloodOrdered By: Joana Farooq on 02-18-2023 Hemoglobin (Bld) [Mass/Vol] 12.9 g/dL 13.0-17.[address] [facility] Leukocytes [#/volume] correc martin for nucleated erythrocytes in Blood by Automated counOrdered By: Joana Farooq on 02-18-2023 WBC corrected for nucl RBC Auto (Bld) [#/Vol] 8.1 10*3/uL 4.1-10.[address] [facility] Lymphocytes Auto (Bld) [#/Vo l]Ordered By: Joana Farooq on 02-18-2023 Lymphocytes (Bld) [#/Vol] 0.7 10*3/uL 1.00-4.[address] [facility] Lymphocytes/100 WBC Auto (Bl d)Ordered By: Joana Farooq on 02-18-2023 Lymphocytes/100 WBC (Bld) 8.6 % . [facility] MCH Auto (RBC) [Entitic mass ]Ordered By: Joana Farooq on 02-18-2023 MCH (RBC) [Entitic mass] 28.0 pg 27.5-35.[address] [facility] MCHC Auto (RBC) [Mass/Vol]Or dered By: Joana Farooq on 02-18-2023 MCHC (RBC) [Mass/Vol] 33.3 g/dL 32.5-35.6 [facility] MCV Auto (RBC) [Entitic vol] Ordered By: Joana Farooq on 02-18-2023 MCV (RBC) [Entitic vol] 84.1 fL 83.5-[address] [facility] Magnesiumon 02-18-2023 Magnesium [Mass/Vol] 2.0 mg/dL Normal 1.9-2.7 [facility] Comment on above: Order Comment: Reaso n for Exam Fatigue, unspecified type;Swelling of left lower extremity;S Reason for Exam Fatigue, unspecified type Performed By: #### C MP, MG, THYROID SC ####[facility] [id number] [place] [address] [facility] Magnesium [Mass/Vol] 2.3760491 mg/dL Normal 1.9- 2.7 mg/dL [employer] Other Magnesium [Mass/volume] in S elmira or PlasmaOrdered By: Ingris Lombardo on 02-18-2023 Magnesium [Mass/Vol] 2.0 mg/dL 1.9-2.7 [facility] Monocytes Auto (Bld) [#/Vol] Ordered By: Joana Farooq on 02-18-2023 Monocytes (Bld) [#/Vol] 0.7 10*3/uL 0.0-0.[address] [facility] Monocytes/100 WBC Auto (Bld) Ordered By: Joana Farooq on 02-18-2023 Monocytes/100 WBC (Bld) 8.2 % . [facility] Neutrophils Auto (Bld) [#/Vo l]Ordered By: Joana Farooq on 02-18-2023 Neutrophils (Bld) [#/Vol] 6.3 10*3/uL 1.8-7.[address] [facility] Neutrophils/100 WBC Auto (Bl d)Ordered By: Joana Farooq on 02-18-2023 Neutrophils/100 WBC (Bld) 78.1 % . [facility] No Panel InformationOrdered By: Joana Farooq on 02-18-2023 Estimated GFR (CKD-EPI) > 60.0 mL/Min [facility] Creatinine Clearance (Chem N/A [facility] Nucleated erythrocytes [Pres ence] in Blood by Automated countOrdered By: Joana Farooq on 02-18-2023 Nucleated RBC Auto Ql (Bld) 0.1 /100{WBC} 0-0.[address] [facility] Platelet mean volume Auto (B ld) [Entitic vol]Ordered By: Joana Farooq on 02-18-2023 Platelet mean volume (Bld) [Entitic vol] 7.1 fL 6.6-10.[address] [facility] Platelets [#/volume] in Bloo d by Automated countOrdered By: Joana Farooq on 02-18-2023 Platelets (Bld) [#/Vol] 235 10*3/uL 150-[address] [facility] Potassium [Moles/volume] in Serum or PlasmaOrdered By: Joana Farooq on 02-18-2023 Potassium [Moles/Vol] 5.0 mmol/L 3.5-5.1 [facility] Protein [Mass/volume] in Ser um or PlasmaOrdered By: Joana Farooq on 02-18-2023 Protein [Mass/Vol] 7.0 g/dL 6.4-8.9 [facility] Serum or plasma albumin/glob ulin mass ratioOrdered By: Joana Farooq on 02-18-2023 Albumin/Globulin [Mass ratio] 1.3 {ratio} [facility] Serum or plasma anion gap de terminationOrdered By: Joana Farooq on 02-18-2023 Anion gap [Moles/Vol] 9.0 mmol/L 6.0-15.0 [facility] Sodium [Moles/volume] in Ser um or PlasmaOrdered By: Joana Farooq on 02-18-2023 Sodium [Moles/Vol] 137 mmol/L 136-145 [facility] THYROID SCREENon 02-18-2023 Free T4 [Mass/Vol] 2.33 ng/dL High 0.61-1.12 [facility] Comment on above: Order Comment: Reaso n for Exam Fatigue, unspecified type;Swelling of left lower extremity;S Reason for Exam Fatigue, unspecified type Performed By: #### C MP, MG, THYROID SC ####[place] [id number] [place] [id number] [facility] TSH Qn 3.52 m[IU]/L Normal 0.45-5.[address] [facility] Comment on above: Order Comment: Reaso n for Exam Fatigue, unspecified type;Swelling of left lower extremity;S Reason for Exam Fatigue, unspecified type Result Comment: PERF ORMED BY:[address] [place], [place] [phone] MEDICAL DIRECTORAPRIL VEGA M.D. Performed By: #### C MP, MG, THYROID SC ####[address] [place] [address] [facility] Free T4 [Mass/Vol] 2.74714784 ng/dL High 0.61- 1.12 ng/dL [employer] Other TSH Qn 3.36596363340 m[IU]/L Normal 0.45-5 .33 u[iU]/mL [employer] Other Thyrotropin [Units/volume] i n Serum or PlasmaOrdered By: Ingris Lombardo on 02-18-2023 TSH Qn 3.52 m[IU]/L 0.45-5.[address] [facility] Thyroxine (T4) free [Mass/vo lume] in Serum or PlasmaOrdered By: Ingris Lombardo on 02-18-2023 Free T4 [Mass/Vol] 2.33 ng/dL 0.61-1.12 [facility] Urate [Mass/volume] in Serum or PlasmaOrdered By: Joana Farooq on 02-18-2023 Urate [Mass/Vol] 5.7 mg/dL 4.4-7.6 [facility] Urea nitrogen [Mass/volume] in Serum or PlasmaOrdered By: Joana Farooq on 02-18-2023 Urea nitrogen [Mass/Vol] 22 mg/dL [address] [facility] Uric Acidon 02-18-2023 Urate [Mass/Vol] 5.7 mg/dL Normal 4.4-7.6 [facility] Comment on above: Result Comment: PERF ORMED BY:[place] [address] [place], [place] [phone] MEDICAL DIRECTORAPRIL VEGA M.D. Performed By: #### U JIM ####[facility] [id number] [place] [address] [facility] WBC Auto (Bld) [#/Vol]Ordere d By: Joana Farooq on 02-18-2023 WBC (Bld) [#/Vol] 8.1 10*3/uL 4.1-10.5 [facility] Albumin Levelon 02-15-2023 Albumin [Mass/Vol] 3.5 g/dL Normal 3.5-5.7 [facility] Comment on above: Result Comment: PERF ORMED BY:[address] [place] [place], [place] [phone] MEDICAL DIRECTORAPRIL VEGA M.D. Performed By: #### A LB, BMP, MG, CBCNO ####[facility] [id number] Albumin [Mass/volume] in Ser um or Plasma by Bromocresol green (BCG) dye binding methoOrdered By: Roberto Fitch on 02-15-2023 Albumin BCG dye [Mass/Vol] 3.5 g/dL 3.5-5.[address] [facility] Basic Metabolic Panelon Anion gap [Moles/Vol] 9.4 mmol/L Normal 6.0-15.0 [facility] Comment on above: Performed By: #### A LB, BMP, MG, CBCNO ####[place] [address] Calcium [Mass/Vol] 10.5 mg/dL High 8.6-10.3 [facility] Comment on above: Performed By: #### A LB, BMP, MG, CBCNO ####[place] [address] [place] [id number] [facility] Chloride [Moles/Vol] 105 mmol/L Normal 98-107 [facility] Comment on above: Performed By: #### A LB, BMP, MG, CBCNO ####[place] [id number] [facility] CO2 [Moles/Vol] 24.2 mmol/L Normal 21.0-31.0 [facility] Comment on above: Performed By: #### A LB, BMP, MG, CBCNO ####[place] [address] [place] [id number] [facility] Creatinine [Mass/Vol] 1.14 mg/dL Normal 0.70-1.30 [facility] Comment on above: Performed By: #### A LB, BMP, MG, CBCNO ####[place] [address] [place] [id number] [place] Creatinine Clr Calc Pharmacy 81.[address] [facility] Comment on above: Performed By: #### A LB, BMP, MG, CBCNO ####[facility] [place] [id number] [place] GFR/1.73 sq M.predicted MDRD (S/P/Bld) [Vol rate/Area] mL/min/{1.73_m2} Normal [facility] Comment on above: Performed By: #### A LB, BMP, MG, CBCNO ####[address] [place] [address] [facility] Glucose [Mass/Vol] 95 mg/dL Normal 70-100 [facility] Comment on above: Result Comment: [facility] Glucose Reference Range is dependent on time and content of last meal. Glucose of more than 200 mg/dL in a nonstressed, ambulatory subject supports the diagnosis of Diabetes Mellitus. ADA recommended reference range Performed By: #### A LB, BMP, MG, CBCNO ####[place] [address] [place] [id number] [facility] Potassium [Moles/Vol] 3.6 mmol/L Normal 3.5-5.1 [facility] Comment on above: Performed By: #### A LB, BMP, MG, CBCNO ####[address] [place] [place] [address] [facility] Sodium [Moles/Vol] 135 mmol/L Low 136-145 [facility] Comment on above: Performed By: #### A LB, BMP, MG, CBCNO ####[address] [address] [facility] Urea nitrogen [Mass/Vol] 24 mg/dL Normal 7-[address] [facility] Comment on above: Performed By: #### A LB, BMP, MG, CBCNO ####[address] [place] [place] [address] [place] Calcium [Mass/volume] in Ser um or PlasmaOrdered By: Polly Velasquez on 02-15-2023 Calcium [Mass/Vol] 10.5 mg/dL 8.6-10.3 [facility] Carbon dioxide, total [Moles /volume] in Serum or PlasmaOrdered By: Polly Velasquez on 02-15-2023 CO2 [Moles/Vol] 24.2 mmol/L 21.0-31.0 [facility] Chloride [Moles/volume] in S elmira or PlasmaOrdered By: Polly Velasquez on 02-15-2023 Chloride [Moles/Vol] 105 mmol/L 98-107 [facility] Creatinine [Mass/volume] in Serum or PlasmaOrdered By: Polly Velasquez on 02-15-2023 Creatinine [Mass/Vol] 1.14 mg/dL 0.70-1.30 [facility] Erythrocyte distribution wid th Auto (RBC) [Ratio]Ordered By: Polly Velasquez on 02-15-2023 Erythrocyte distribution width (RBC) [Ratio] 15.8 % 12.0-14.[address] [facility] Glucose Glucometer (BldC) [M ass/Vol]Ordered By: Polly Velasquez on 02-15-2023 Glucose [Mass/Vol] 118 mg/dL [facility] Comment on above: Random Glucose Refer ence Range is dependent on time and content of last meal. Glucose of more than 200 mg/dL in a nonstressed, ambulatory subject supports the diagnosis of Diabetes Mellitus. Glucose Poct Glucometerson 1 04-18-2022 Glucose [Mass/Vol] 118 mg/dL Normal [facility] Comment on above: Result Comment: [facility] Glucose Reference Range is dependent on time and content of last meal. Glucose of more than 200 mg/dL in a nonstressed, ambulatory subject supports the diagnosis of Diabetes Mellitus.PERFORMED BY:[address] [address] [place], [place] [phone] MEDICAL JORGE VEGA M.D. Performed By: #### G LULS ####Point of Care testing, Glucose [Mass/Vol] 112 mg/dL Normal [facility] Comment on above: Result Comment: [facility] Glucose Reference Range is dependent on time and content of last meal. Glucose of more than 200 mg/dL in a nonstressed, ambulatory subject supports the diagnosis of Diabetes Mellitus.PERFORMED BY:[address] [address] [place], [place] [phone] MEDICAL JORGE VEGA M.D. Performed By: #### G OZZY ####Point of Care testing, Glucose [Mass/volume] in Ser um or PlasmaOrdered By: Polly Velasquez on 02-15-2023 Glucose [Mass/Vol] 95 mg/dL 70-100 [facility] Comment on above: ADA recommended refe rence rangeRandom Glucose Reference Range is dependent on time and content of last meal. Glucose of more than 200 mg/dL in a nonstressed, ambulatory subject supports the diagnosis of Diabetes Mellitus. Hematocrit Auto (Bld) [Volum e fraction]Ordered By: Polly Velasquez on 02-15-2023 Hematocrit (Bld) [Volume fraction] 36.9 % 38.8-50.[address] [facility] Hemoglobin [Mass/volume] in BloodOrdered By: Polly Velasquez on 02-15-2023 Hemoglobin (Bld) [Mass/Vol] 12.3 g/dL 13.0-17.[address] [facility] Hemogram CBC Without Diffon 02-15-2023 Erythrocyte distribution width (RBC) [Ratio] 15.8 % High 12.0-14.[address] [facility] Comment on above: Performed By: #### A LB, BMP, MG, CBCNO ####[place] [address] Hematocrit (Bld) [Volume fraction] 36.9 % Low 38.8-50.[address] [facility] Comment on above: Performed By: #### A LB, BMP, MG, CBCNO ####[address] Hemoglobin (Bld) [Mass/Vol] 12.3 g/dL Low 13.0-17.[address] [facility] Comment on above: Performed By: #### A LB, BMP, MG, CBCNO ####[address] MCH (RBC) [Entitic mass] 27.8 pg Normal 27.5-35.[address] [facility] Comment on above: Performed By: #### A LB, BMP, MG, CBCNO ####[place] [address] [place] [id number] [facility] MCV (RBC) [Entitic vol] 83.4 fL Low 83.5-[address] [facility] Comment on above: Performed By: #### A LB, BMP, MG, CBCNO ####[place] [address] [place] [id number] [facility] Mean Corpuscular HGB Conc 33.3 g/dL Normal 32.5-35.[address] [facility] Comment on above: Performed By: #### A LB, BMP, MG, CBCNO ####[address] Platelet mean volume (Bld) [Entitic vol] 7.1 fL Normal 6.6-10.[address] [facility] Comment on above: Result Comment: PERF ORMED BY:[address] [place], [place] [phone] MEDICAL DIRECTORAPRIL VEGA M.D. Performed By: #### A LB, BMP, MG, CBCNO ####[address] Platelets (Bld) [#/Vol] 182 10*3/uL Normal 150-[address] [facility] Comment on above: Performed By: #### A LB, BMP, MG, CBCNO ####[address] RBC (Bld) [#/Vol] 4.42 10*6/uL Normal 3.90-5.60 [facility] Comment on above: Performed By: #### A LB, BMP, MG, CBCNO ####[place] [id number] [facility] WBC (Bld) [#/Vol] 7.5 10*3/uL Normal 4.1-10.5 [facility] Comment on above: Performed By: #### A LB, BMP, MG, CBCNO ####[place] [id number] [facility] Leukocytes [#/volume] correc martin for nucleated erythrocytes in Blood by Automated counOrdered By: Polly Velasquez on 02-15-2023 WBC corrected for nucl RBC Auto (Bld) [#/Vol] 7.5 10*3/uL 4.1-10.[address] [facility] MCH Auto (RBC) [Entitic mass ]Ordered By: Polly Velasquez on 02-15-2023 MCH (RBC) [Entitic mass] 27.8 pg 27.5-35.[address] [facility] MCHC Auto (RBC) [Mass/Vol]Or dered By: Polly Velasquez on 02-15-2023 MCHC (RBC) [Mass/Vol] 33.3 g/dL 32.5-35.6 [facility] MCV Auto (RBC) [Entitic vol] Ordered By: Polly Velasquez on 02-15-2023 MCV (RBC) [Entitic vol] 83.4 fL 83.5-[address] [facility] Magnesiumon 02-15-2023 Magnesium [Mass/Vol] 1.7 mg/dL Low 1.9-2.7 [facility] Comment on above: Performed By: #### A LB, BMP, MG, CBCNO ####[facility] [id number] [place] [id number] [facility] Magnesium [Mass/volume] in S [place] or PlasmaOrdered By: Roberto Fitch on 02-15-2023 Magnesium [Mass/Vol] 1.7 mg/dL 1.9-2.7 [facility] No Panel InformationOrdered By: Polly Velasquez on 02-15-2023 Estimated GFR (CKD-EPI) > 60.0 mL/Min [facility] Creatinine Clearance (Chem 81.[address] [facility] Platelet mean volume Auto (B ld) [Entitic vol]Ordered By: Polly Velasquez on 02-15-2023 Platelet mean volume (Bld) [Entitic vol] 7.1 fL 6.6-10.[address] [facility] Platelets Auto (Bld) [#/Vol] Ordered By: Polly Velasquez on 02-15-2023 Platelets (Bld) [#/Vol] 182 10*3/uL 150-[address] [facility] Potassium [Moles/volume] in Serum or PlasmaOrdered By: Polly Velasquez on 02-15-2023 Potassium [Moles/Vol] 3.6 mmol/L 3.5-5.1 [facility] RBC Auto (Bld) [#/Vol]Ordere d By: Polly Velasquez on 02-15-2023 RBC (Bld) [#/Vol] 4.42 10*6/uL 3.90-5.60 [facility] Serum or plasma anion gap de terminationOrdered By: Polly Velasquez on 02-15-2023 Anion gap [Moles/Vol] 9.4 mmol/L 6.0-15.0 [facility] Sodium [Moles/volume] in Ser um or PlasmaOrdered By: Polly Velasquez on 02-15-2023 Sodium [Moles/Vol] 135 mmol/L 136-145 [facility] Urea nitrogen [Mass/volume] in Serum or PlasmaOrdered By: Polly Velasquez on 02-15-2023 Urea nitrogen [Mass/Vol] 24 mg/dL 7-[address] [facility] XR chest 2V*on 02-15-2023 XR chest 2V* Normal [facility] Activated partial thrombopla stin time (aPTT) in platelet poor plasma by coagulation aOrdered By: Viridiana Thompson on 02-14-2023 aPTT Coag (PPP) [Time] 30.9 s 25.1-36.[address] [facility] Comment on above: A hematocrit value g reater than 55% may lead to inaccurate results in coagulation testing. Patients having hematocrit values >55% require a special collection tube for coagulation studies. Please contact the laboratory at [phone] for redraw instructions. Basic Metabolic Panelon 01-18 Anion gap [Moles/Vol] 9.4 mmol/L Normal 6.0-15.0 [facility] Comment on above: Performed By: #### P T, MG, PTT, BMP, CBC ####[facility] [id number] [place] [id number] [facility] Calcium [Mass/Vol] 10.7 mg/dL High 8.6-10.3 [facility] Comment on above: Performed By: #### P T, MG, PTT, BMP, CBC ####[address] Chloride [Moles/Vol] 103 mmol/L Normal 98-107 [facility] Comment on above: Performed By: #### P T, MG, PTT, BMP, CBC ####[place] [id number] [facility] CO2 [Moles/Vol] 25.7 mmol/L Normal 21.0-31.0 [facility] Comment on above: Performed By: #### P T, MG, PTT, BMP, CBC ####[address] Creatinine [Mass/Vol] 1.36 mg/dL High 0.70-1.30 [facility] Comment on above: Performed By: #### P T, MG, PTT, BMP, CBC ####[address] Creatinine Clr Calc Pharmacy 68.61 [facility] Comment on above: Performed By: #### P T, MG, PTT, BMP, CBC ####[place] [id number] [facility] GFR/1.73 sq M.predicted MDRD (S/P/Bld) [Vol rate/Area] 57.752 mL/min/{1.73_m2} [facility] Comment on above: Performed By: #### P T, MG, PTT, BMP, CBC ####[place] [id number] [facility] Glucose [Mass/Vol] 144 mg/dL High 70-100 [facility] Comment on above: Result Comment: [facility] Glucose Reference Range is dependent on time and content of last meal. Glucose of more than 200 mg/dL in a nonstressed, ambulatory subject supports the diagnosis of Diabetes Mellitus. ADA recommended reference range Performed By: #### P T, MG, PTT, BMP, CBC ####[place] [id number] [facility] Potassium [Moles/Vol] 4.1 mmol/L Normal 3.5-5.1 [facility] Comment on above: Performed By: #### P T, MG, PTT, BMP, CBC ####[place] [address] [place] [id number] [facility] Sodium [Moles/Vol] 134 mmol/L Low 136-145 [facility] Comment on above: Performed By: #### P T, MG, PTT, BMP, CBC ####[address] Urea nitrogen [Mass/Vol] 27 mg/dL High 7-[address] [facility] Comment on above: Performed By: #### P T, MG, PTT, BMP, CBC ####[address] Basophils Auto (Bld) [#/Vol] Ordered By: Viridiana Thompson on 02-14-2023 Basophils (Bld) [#/Vol] 0.0 10*3/uL 0.0-0.[address] [facility] Basophils/100 WBC Auto (Bld) Ordered By: Viridiana Thompson on 02-14-2023 Basophils/100 WBC (Bld) 0.6 % . [facility] Complete Blood Count Auto Di ffon 02-14-2023 Basophils (Bld) [#/Vol] 0.0 10*3/uL Normal 0.0-0.[address] [facility] Comment on above: Result Comment: PERF ORMED BY:[address] [place], [place] [phone] MEDICAL JORGE VEGA M.D. Performed By: #### P T, MG, PTT, BMP, CBC ####[address] Basophils/100 WBC (Bld) 0.6 % Normal . [facility] Comment on above: Performed By: #### P T, MG, PTT, BMP, CBC ####[address] Eosinophils (Bld) [#/Vol] 0.4 10*3/uL Normal 0.0-0.[address] [facility] Comment on above: Performed By: #### P T, MG, PTT, BMP, CBC ####[address] Eosinophils/100 WBC (Bld) 6.1 % Normal . [facility] Comment on above: Performed By: #### P T, MG, PTT, BMP, CBC ####[address] Erythrocyte distribution width (RBC) [Ratio] 15.8 % High 12.0-14.[address] [facility] Comment on above: Performed By: #### P T, MG, PTT, BMP, CBC ####[address] Hematocrit (Bld) [Volume fraction] 37.3 % Low 38.8-50.[address] [facility] Comment on above: Performed By: #### P T, MG, PTT, BMP, CBC ####[address] Hemoglobin (Bld) [Mass/Vol] 12.4 g/dL Low 13.0-17.[address] [facility] Comment on above: Performed By: #### P T, MG, PTT, BMP, CBC ####[address] Lymphocytes (Bld) [#/Vol] 0.9 10*3/uL Low 1.00-4.[address] [facility] Comment on above: Performed By: #### P T, MG, PTT, BMP, CBC ####[address] Lymphocytes/100 WBC (Bld) 15.0 % Normal . [facility] Comment on above: Performed By: #### P T, MG, PTT, BMP, CBC ####[address] MCH (RBC) [Entitic mass] 27.9 pg Normal 27.5-35.[address] [facility] Comment on above: Performed By: #### P T, MG, PTT, BMP, CBC ####[address] MCV (RBC) [Entitic vol] 84.2 fL Normal 83.5-[address] [facility] Comment on above: Performed By: #### P T, MG, PTT, BMP, CBC ####[address] Mean Corpuscular HGB Conc 33.2 g/dL Normal 32.5-35.[address] [facility] Comment on above: Performed By: #### P T, MG, PTT, BMP, CBC ####[address] Monocytes (Bld) [#/Vol] 0.7 10*3/uL Normal 0.0-0.[address] [facility] Comment on above: Performed By: #### P T, MG, PTT, BMP, CBC ####[address] Monocytes/100 WBC (Bld) 11.8 % Normal . [facility] Comment on above: Performed By: #### P T, MG, PTT, BMP, CBC ####[address] Neutrophils (Bld) [#/Vol] 4.0 10*3/uL Normal 1.8-7.[address] [facility] Comment on above: Performed By: #### P T, MG, PTT, BMP, CBC ####[address] Neutrophils/100 WBC (Bld) 66.5 % Normal . [facility] Comment on above: Performed By: #### P T, MG, PTT, BMP, CBC ####[address] NRBC% 0.2 /100{WBC} Normal 0-0.[address] [facility] Comment on above: Performed By: #### P T, MG, PTT, BMP, CBC ####[place] [address] [place] [id number] [facility] Platelet mean volume (Bld) [Entitic vol] 7.0 fL Normal 6.6-10.[address] [facility] Comment on above: Performed By: #### P T, MG, PTT, BMP, CBC ####[place] [id number] [facility] Platelets (Bld) [#/Vol] 182 10*3/uL Normal 150-[address] [facility] Comment on above: Performed By: #### P T, MG, PTT, BMP, CBC ####[address] RBC (Bld) [#/Vol] 4.43 10*6/uL Normal 3.90-5.60 [facility] Comment on above: Performed By: #### P T, MG, PTT, BMP, CBC ####[address] WBC (Bld) [#/Vol] 6.0 10*3/uL Normal 4.1-10.5 [facility] Comment on above: Performed By: #### P T, MG, PTT, BMP, CBC ####[address] ECG 12 lead ECGon 02-14-2023 ECG 12 lead ECG Normal [facility] Eosinophils Auto (Bld) [#/Vo l]Ordered By: Viridiana Thompson on 02-14-2023 Eosinophils (Bld) [#/Vol] 0.4 10*3/uL 0.0-0.[address] [facility] Eosinophils/100 WBC Auto (Bl d)Ordered By: Viridiana Thompson on 02-14-2023 Eosinophils/100 WBC (Bld) 6.1 % . [facility] Glucose Poct Glucometerson 1 04-16-2022 Commemt1 Glu2: Cleaned Meter Normal [facility] Comment on above: Result Comment: PERF ORMED BY:[address] [place], [place] [phone] MEDICAL DIRECTORAPRIL VEGA M.D. Performed By: #### G LULS ####Point of Care testing, Glucose [Mass/Vol] 115 mg/dL Normal [facility] Comment on above: Result Comment: [place] [place] [facility] Glucose Reference Range is dependent on time and content of last meal. Glucose of more than 200 mg/dL in a nonstressed, ambulatory subject supports the diagnosis of Diabetes Mellitus. Performed By: #### G LULS ####Point of Care testing, Commemt1 Glu2: Cleaned Meter [facility] Comment on above: Result Comment: PERF ORMED BY:[address] [place], [place] [phone] MEDICAL DIRECTORAPRIL VEGA M.D. Performed By: #### G LULS ####Point of Care testing, Glucose [Mass/Vol] 171 mg/dL Normal [facility] Comment on above: Result Comment: [place] om Glucose Reference Range is dependent on time and content of last meal. Glucose of more than 200 mg/dL in a nonstressed, ambulatory subject supports the diagnosis of Diabetes Mellitus. Performed By: #### G LULS ####Point of Care testing, Commemt1 Glu2: Cleaned Meter [facility] Comment on above: Result Comment: PERF ORMED BY:[place] [place], [place] [phone] MEDICAL DIRECTORAPRIL VEGA M.D. Performed By: #### G LULS ####Point of Care testing, Glucose [Mass/Vol] 189 mg/dL Normal [facility] Comment on above: Result Comment: Tutor Key om Glucose Reference Range is dependent on time and content of last meal. Glucose of more than 200 mg/dL in a nonstressed, ambulatory subject supports the diagnosis of Diabetes Mellitus. Performed By: #### G LULS ####Point of Care testing, Commemt1 Glu2: Cleaned Meter [facility] Comment on above: Result Comment: PERF ORMED BY:[place] [address] [place], [place] [id number] MEDICAL DIRECTORAPRIL VEGA M.D. Performed By: #### G LULS ####Point of Care testing, Glucose [Mass/Vol] 148 mg/dL Normal [facility] Comment on above: Result Comment: Tutor Key om Glucose Reference Range is dependent on time and content of last meal. Glucose of more than 200 mg/dL in a nonstressed, ambulatory subject supports the diagnosis of Diabetes Mellitus. Performed By: #### G LULS ####Point of Care testing, Commemt1 Glu2: Cleaned Meter Normal [facility] Comment on above: Result Comment: PERF ORMED BY:[facility] [place], [place] [phone] MEDICAL DIRECTORAPRIL VEGA M.D. Performed By: #### G LULS ####Point of Care testing, Glucose [Mass/Vol] 144 mg/dL Normal [facility] Comment on above: Result Comment: Tutor Key om Glucose Reference Range is dependent on time and content of last meal. Glucose of more than 200 mg/dL in a nonstressed, ambulatory subject supports the diagnosis of Diabetes Mellitus. Performed By: #### G LULS ####Point of Care testing, INR in Platelet poor plasma by Coagulation assayOrdered By: Viridiana Thompson on 02-14-2023 INR Coag (PPP) [Relative time] 1.0 {INR} [facility] Comment on above: INR Therapeutic Rang e [...] 02-14-2023 Lymphocytes (Bld) [#/Vol] 0.9 10*3/uL 1.00-4.[address] [facility] Lymphocytes/100 WBC Auto (Bl d)Ordered By: Viridiana Thompson on 02-14-2023 Lymphocytes/100 WBC (Bld) 15.0 % . [facility] Magnesiumon 02-14-2023 Magnesium [Mass/Vol] 1.8 mg/dL Low 1.9-2.7 [facility] Comment on above: Result Comment: PERF ORMED BY:[facility] [place], [place] [phone] MEDICAL DIRECTORAPRIL VEGA M.D. Performed By: #### P T, MG, PTT, BMP, CBC ####[facility] [place] [address] [facility] Monocytes Auto (Bld) [#/Vol] Ordered By: Viridiana Thompson on 02-14-2023 Monocytes (Bld) [#/Vol] 0.7 10*3/uL 0.0-0.[address] [facility] Monocytes/100 WBC Auto (Bld) Ordered By: Viridiana Thompson on 02-14-2023 Monocytes/100 WBC (Bld) 11.8 % . [facility] Neutrophils Auto (Bld) [#/Vo l]Ordered By: Viridiana Thompson on 02-14-2023 Neutrophils (Bld) [#/Vol] 4.0 10*3/uL 1.8-7.[address] [facility] Neutrophils/100 WBC Auto (Bl d)Ordered By: Viridiana Thompson on 02-14-2023 Neutrophils/100 WBC (Bld) 66.5 % . [facility] No Panel InformationOrdered By: Roberto Fitch on 02-14-2023 Bedside Glucose Comment Glu2: cleaned meter [facility] Nucleated erythrocytes [Pres ence] in Blood by Automated countOrdered By: Viridiana Thompson on 02-14-2023 Nucleated RBC Auto Ql (Bld) 0.2 /100{WBC} 0-0.[address] [facility] Partial Thromboplastin Timeo n 02-14-2023 aPTT Coag (Bld) [Time] 30.9 s Normal 25.1-36.[address] [facility] Comment on above: Result Comment: A he matocrit value greater than 55% may lead to inaccurate results in coagulation testing. Patients having hematocrit values >55% require a special collection tube for coagulation studies. Please contact the laboratory at [phone] for redraw instructions.PERFORMED BY:[facility] [place], [place] [phone] MEDICAL DIRECTORAPRIL VEGA M.D. Performed By: #### P T, MG, PTT, BMP, CBC ####[address] [place] [address] [facility] Prothrombin Time INRon 02-14 INR Coag (PPP) [Relative time] 1.0 {INR} Normal [facility] Comment on above: Result Comment: INR Therapeutic [...] - 4.5 Performed By: #### P T, MG, PTT, BMP, CBC ####[address] [place] [address] [facility] PT Coag (PPP) [Time] 11.9 s Normal 9.0-12.9 [facility] Comment on above: Result Comment: A he matocrit value greater than 55% may lead to inaccurate results in coagulation testing. Patients having hematocrit values >55% require a special collection tube for coagulation studies. Please contact the laboratory at [phone] for redraw instructions. Performed By: #### P T, MG, PTT, BMP, CBC ####[facility] [place] [address] [facility] Prothrombin time (PT)Ordered By: Viridiana Thompson on 02-14-2023 PT Coag (PPP) [Time] 11.9 s 9.0-12.9 [facility] Comment on above: A hematocrit value g reater than 55% may lead to inaccurate results in coagulation testing. Patients having hematocrit values >55% require a special collection tube for coagulation studies. Please contact the laboratory at [phone] for redraw instructions. WBC Auto (Bld) [#/Vol]Ordere d By: Viridiana Thompson on 02-14-2023 WBC (Bld) [#/Vol] 6.0 10*3/uL 4.1-10.5 [facility] XR chest 1V portableon 02-14 XR chest 1V portable Normal [facility] Basic Metabolic Panelon 01-17 Anion gap [Moles/Vol] 9.0 mmol/L Normal 6.0-15.0 [facility] Comment on above: Performed By: #### LUIS Bee, CBCNO ####[facility] [id number] [place] [address] [facility] Calcium [Mass/Vol] 10.9 mg/dL High 8.6-10.3 [facility] Comment on above: Performed By: #### LUIS Bee, CBCNO ####[facility] [id number] [place] [address] [facility] Chloride [Moles/Vol] 104 mmol/L Normal 98-107 [facility] Comment on above: Performed By: #### LUIS Bee, CBCNO ####[facility] [id number] [place] [address] [facility] CO2 [Moles/Vol] 25.9 mmol/L Normal 21.0-31.0 [facility] Comment on above: Performed By: #### LUIS Bee, CBCNO ####[address] [place] [address] [facility] Creatinine [Mass/Vol] 1.29 mg/dL Normal 0.70-1.30 [facility] Comment on above: Performed By: #### LUIS Bee, CBCNO ####[facility] [id number] [place] [address] [place] Creatinine Clr Calc Pharmacy 72.38 [facility] Comment on above: Performed By: #### LUIS Bee, CBCNO ####[facility] [id number] [place] [address] [place] GFR/1.73 sq M.predicted MDRD (S/P/Bld) [Vol rate/Area] mL/min/{1.73_m2} [facility] Comment on above: Performed By: #### M LUIS Snowden, CBCNO ####[facility] [id number] [place] [address] [facility] Glucose [Mass/Vol] 145 mg/dL High 70-100 [facility] Comment on above: Result Comment: [facility] Glucose Reference Range is dependent on time and content of last meal. Glucose of more than 200 mg/dL in a nonstressed, ambulatory subject supports the diagnosis of Diabetes Mellitus. ADA recommended reference range Performed By: #### M LUIS Snowden, CBCNO ####[facility] [id number] [place] [address] [facility] Potassium [Moles/Vol] 4.9 mmol/L Normal 3.5-5.1 [facility] Comment on above: Performed By: #### LUIS Bee, CBCNO ####[address] [place] [address] [facility] Sodium [Moles/Vol] 134 mmol/L Low 136-145 [facility] Comment on above: Performed By: #### LUIS Bee, CBCNO ####[facility] [place] [address] [facility] Urea nitrogen [Mass/Vol] 29 mg/dL High 7-[address] [facility] Comment on above: Performed By: #### LUIS Bee, CBCNO ####[facility] [place] [address] [place] Glucose Poct Glucometerson 04-15-2022 Glucose [Mass/Vol] 169 mg/dL Normal [facility] Comment on above: Result Comment: [facility] Glucose Reference Range is dependent on time and content of last meal. Glucose of more than 200 mg/dL in a nonstressed, ambulatory subject supports the diagnosis of Diabetes Mellitus.PERFORMED BY:[address] [place], [place] [phone] MEDICAL DIRECTORAPRIL VEGA M.D. Performed By: #### G LULS ####Point of Care testing, Commemt1 Glu2: Cleaned Meter Normal [facility] Comment on above: Result Comment: PERF ORMED BY:[address] [place], [place] [phone] MEDICAL DIRECTORAPRIL VEGA M.D. Performed By: #### G LULS ####Point of Care testing, Glucose [Mass/Vol] 131 mg/dL Normal [facility] Comment on above: Result Comment: Tutor Key om Glucose Reference Range is dependent on time and content of last meal. Glucose of more than 200 mg/dL in a nonstressed, ambulatory subject supports the diagnosis of Diabetes Mellitus. Performed By: #### G LULS ####Point of Care testing, Commemt1 Glu2: Cleaned Meter Normal [facility] Comment on above: Result Comment: PERF ORMED BY:[address] [place], [place] [phone] MEDICAL DIRECTORAPRIL VEGA M.D. Performed By: #### G LULS ####Point of Care testing, Glucose [Mass/Vol] 202 mg/dL Normal [facility] Comment on above: Result Comment: Tutor Key om Glucose Reference Range is dependent on time and content of last meal. Glucose of more than 200 mg/dL in a nonstressed, ambulatory subject supports the diagnosis of Diabetes Mellitus. Performed By: #### Sp LULS ####Point of Care testing, Hemogram CBC Without Diffon 02-13-2023 Erythrocyte distribution width (RBC) [Ratio] 15.7 % High 12.0-14.[address] [facility] Comment on above: Performed By: #### M LUIS Snowden CBCNO ####[facility] [id number] [place] [id number] [facility] Hematocrit (Bld) [Volume fraction] 35.0 % Low 38.8-50.[address] [facility] Comment on above: Performed By: #### LUIS Bee CBCNO ####[facility] [id number] [place] [id number] [facility] Hemoglobin (Bld) [Mass/Vol] 11.6 g/dL Low 13.0-17.[address] [facility] Comment on above: Performed By: #### M G, BMP, CBCNO ####[facility] [id number] [place] [address] [facility] MCH (RBC) [Entitic mass] 28.0 pg Normal 27.5-35.[address] [facility] Comment on above: Performed By: #### LUIS Bee, CBCNO ####[facility] [id number] [place] [address] [facility] MCV (RBC) [Entitic vol] 84.2 fL Normal 83.5-[address] [facility] Comment on above: Performed By: #### LUIS Bee, CBCNO ####[address] [place] [address] [facility] Mean Corpuscular HGB Conc 33.2 g/dL Normal 32.5-35.[address] [facility] Comment on above: Performed By: #### LUIS Bee, CBCNO ####[address] [address] [facility] Platelet mean volume (Bld) [Entitic vol] 7.1 fL Normal 6.6-10.[address] [facility] Comment on above: Result Comment: PERF ORMED BY:[address] [place], [place] [phone] MEDICAL DIRECTORAPRIL VEGA M.D. Performed By: #### LUIS Bee, CBCNO ####[address] [place] [address] [facility] Platelets (Bld) [#/Vol] 181 10*3/uL Normal 150-[address] [facility] Comment on above: Performed By: #### LUIS Bee, CBCNO ####[address] [place] [address] [facility] RBC (Bld) [#/Vol] 4.15 10*6/uL Normal 3.90-5.60 [facility] Comment on above: Performed By: #### LUIS Bee, CBCNO ####[address] [address] [facility] WBC (Bld) [#/Vol] 5.8 10*3/uL Normal 4.1-10.5 [facility] Comment on above: Performed By: #### M Sp, BMP, CBCNO ####[address] [place] [address] [facility] Magnesiumon 02-13-2023 Magnesium [Mass/Vol] 1.9 mg/dL Normal 1.9-2.7 [facility] Comment on above: Result Comment: PERF ORMED BY:[address] [place], [place] [phone] MEDICAL DIRECTORAPRIL VEGA M.D. Performed By: #### M Sp, BMP, CBCNO ####[address] [place] [address] [facility] Alanine aminotransferase [En zymatic activity/volume] in Serum or PlasmaOrdered By: Humberto Zeng on 02-12-2023 ALT [Catalytic activity/Vol] 13 U/L 7-[address] [facility] Alkaline phosphatase [Enzyma tic activity/volume] in Serum or PlasmaOrdered By: Humberto Zeng on 02-12-2023 ALP [Catalytic activity/Vol] 103 U/L 34-[address] [facility] Aspartate aminotransferase [ Enzymatic activity/volume] in Serum or PlasmaOrdered By: Humberto Zeng on 02-12-2023 AST [Catalytic activity/Vol] 20 U/L 13-[address] [facility] B-Type Natriuretic Peptideon 02-12-2023 Natriuretic peptide B (Bld) [Mass/Vol] 151.0 pg/mL High 5-[address] [facility] Comment on above: Result Comment: PERF ORMED BY:[address] [place], [place] [phone] MEDICAL DIRECTORAPRIL VEGA M.D. Performed By: #### B ELECT[employer]ICAL PRODUCTS ENGINEER ####[address] [place] [address] [facility] Bilirubin.total [Mass/volume ] in Serum or PlasmaOrdered By: Humberto Zeng on 02-12-2023 Bilirubin [Mass/Vol] 0.5 mg/dL 0.3-1.0 [facility] Complete Blood Count Auto Di ffon 02-12-2023 Basophils (Bld) [#/Vol] 0.0 10*3/uL Normal 0.0-0.[address] [facility] Comment on above: Result Comment: PERF ORMED BY:[address] [place], [place] [phone] MEDICAL DIRECTORAPRIL VEGA M.D. Performed By: #### C BC, MG, CK, HS TROP, CMP, PT, PTT ####[address] Basophils/100 WBC (Bld) 0.6 % Normal . [facility] Comment on above: Performed By: #### C BC, MG, CK, HS TROP, CMP, PT, PTT ####[address] Eosinophils (Bld) [#/Vol] 0.4 10*3/uL Normal 0.0-0.[address] [facility] Comment on above: Performed By: #### C BC, MG, CK, HS TROP, CMP, PT, PTT ####[address] Eosinophils/100 WBC (Bld) 6.2 % Normal . [facility] Comment on above: Performed By: #### C BC, MG, CK, HS TROP, CMP, PT, PTT ####[address] Erythrocyte distribution width (RBC) [Ratio] 15.9 % High 12.0-14.[address] [facility] Comment on above: Performed By: #### C BC, MG, CK, HS TROP, CMP, PT, PTT ####[address] Hematocrit (Bld) [Volume fraction] 38.8 % Normal 38.8-50.[address] [facility] Comment on above: Performed By: #### C BC, MG, CK, HS TROP, CMP, PT, PTT ####[address] Hemoglobin (Bld) [Mass/Vol] 12.7 g/dL Low 13.0-17.[address] [facility] Comment on above: Performed By: #### C BC, MG, CK, HS TROP, CMP, PT, PTT ####[address] Lymphocytes (Bld) [#/Vol] 1.1 10*3/uL Normal 1.00-4.[address] [facility] Comment on above: Performed By: #### C BC, MG, CK, HS TROP, CMP, PT, PTT ####[address] Lymphocytes/100 WBC (Bld) 18.7 % Normal . [facility] Comment on above: Performed By: #### C BC, MG, CK, HS TROP, CMP, PT, PTT ####[address] MCH (RBC) [Entitic mass] 27.7 pg Normal 27.5-35.[address] [facility] Comment on above: Performed By: #### C BC, MG, CK, HS TROP, CMP, PT, PTT ####[address] MCV (RBC) [Entitic vol] 84.8 fL Normal 83.5-[address] [facility] Comment on above: Performed By: #### C BC, MG, CK, HS TROP, CMP, PT, PTT ####[address] Mean Corpuscular HGB Conc 32.7 g/dL Normal 32.5-35.[address] [facility] Comment on above: Performed By: #### C BC, MG, CK, HS TROP, CMP, PT, PTT ####[address] Monocytes (Bld) [#/Vol] 0.6 10*3/uL Normal 0.0-0.[address] [facility] Comment on above: Performed By: #### C BC, MG, CK, HS TROP, CMP, PT, PTT ####[address] Monocytes/100 WBC (Bld) 15.38 % Normal 0.00-20.[address] [facility] Comment on above: Performed By: #### C BC, MG, CK, HS TROP, CMP, PT, PTT ####[address] Monocytes/100 WBC (Bld) 10.7 % Normal . [facility] Comment on above: Performed By: #### C BC, MG, CK, HS TROP, CMP, PT, PTT ####[address] Neutrophils (Bld) [#/Vol] 3.9 10*3/uL Normal 1.8-7.[address] [facility] Comment on above: Performed By: #### C BC, MG, CK, HS TROP, CMP, PT, PTT ####[address] Neutrophils/100 WBC (Bld) 63.8 % Normal . [facility] Comment on above: Performed By: #### C BC, MG, CK, HS TROP, CMP, PT, PTT ####[address] NRBC% 0.1 /100{WBC} Normal 0-0.[address] [facility] Comment on above: Performed By: #### C BC, MG, CK, HS TROP, CMP, PT, PTT ####[address] Platelet mean volume (Bld) [Entitic vol] 7.2 fL Normal 6.6-10.[address] [facility] Comment on above: Performed By: #### C BC, MG, CK, HS TROP, CMP, PT, PTT ####[address] Platelets (Bld) [#/Vol] 205 10*3/uL Normal 150-[address] [facility] Comment on above: Performed By: #### C BC, MG, CK, HS TROP, CMP, PT, PTT ####[address] [address] [place] RBC (Bld) [#/Vol] 4.58 10*6/uL Normal 3.90-5.60 [facility] Comment on above: Performed By: #### C BC, MG, CK, HS TROP, CMP, PT, PTT ####[address] WBC (Bld) [#/Vol] 6.1 10*3/uL Normal 4.1-10.5 [facility] Comment on above: Performed By: #### C BC, MG, CK, HS TROP, CMP, PT, PTT ####[address] Comprehensive Metabolic Pane anny 02-12-2023 Albumin [Mass/Vol] 4.0 g/dL Normal 3.5-5.7 [facility] Comment on above: Performed By: #### C BC, MG, CK, HS TROP, CMP, PT, PTT ####[address] Albumin/Globulin [Mass ratio] 1.3 {ratio} Normal [facility] Comment on above: Performed By: #### C BC, MG, CK, HS TROP, CMP, PT, PTT ####[address] ALP [Catalytic activity/Vol] 103 U/L Normal 34-[address] [facility] Comment on above: Performed By: #### C BC, MG, CK, HS TROP, CMP, PT, PTT ####[address] ALT [Catalytic activity/Vol] 13 U/L Normal 7-[address] [facility] Comment on above: Performed By: #### C BC, MG, CK, HS TROP, CMP, PT, PTT ####[address] Anion gap [Moles/Vol] 8.9 mmol/L Normal 6.0-15.0 [facility] Comment on above: Performed By: #### C BC, MG, CK, HS TROP, CMP, PT, PTT ####[address] AST [Catalytic activity/Vol] 20 U/L Normal 13-[address] [facility] Comment on above: Performed By: #### C BC, MG, CK, HS TROP, CMP, PT, PTT ####[address] Bilirubin [Mass/Vol] 0.5 mg/dL Normal 0.3-1.0 [facility] Comment on above: Performed By: #### C BC, MG, CK, HS TROP, CMP, PT, PTT ####[address] Calcium [Mass/Vol] 11.3 mg/dL High 8.6-10.3 [facility] Comment on above: Performed By: #### C BC, MG, CK, HS TROP, CMP, PT, PTT ####[address] Chloride [Moles/Vol] 103 mmol/L Normal 98-107 [facility] Comment on above: Performed By: #### C BC, MG, CK, HS TROP, CMP, PT, PTT ####[address] CO2 [Moles/Vol] 28.3 mmol/L Normal 21.0-31.0 [facility] Comment on above: Performed By: #### C BC, MG, CK, HS TROP, CMP, PT, PTT ####[place] [id number] [facility] Creatinine [Mass/Vol] 1.33 mg/dL High 0.70-1.30 [facility] Comment on above: Performed By: #### C BC, MG, CK, HS TROP, CMP, PT, PTT ####[place] [id number] [facility] Creatinine Clr Calc Pharmacy 70.20 [facility] Comment on above: Performed By: #### C BC, MG, CK, HS TROP, CMP, PT, PTT ####[place] [id number] GFR/1.73 sq M.predicted MDRD (S/P/Bld) [Vol rate/Area] 59.319 mL/min/{1.73_m2} [facility] Comment on above: Performed By: #### C BC, MG, CK, HS TROP, CMP, PT, PTT ####[address] Globulin (S) [Mass/Vol] 3.2 g/dL [facility] Comment on above: Performed By: #### C BC, MG, CK, HS TROP, CMP, PT, PTT ####[address] Glucose [Mass/Vol] 177 mg/dL High 70-100 [facility] Comment on above: Result Comment: [facility] Glucose Reference Range is dependent on time and content of last meal. Glucose of more than 200 mg/dL in a nonstressed, ambulatory subject supports the diagnosis of Diabetes Mellitus. ADA recommended reference range Performed By: #### C BC, MG, CK, HS TROP, CMP, PT, PTT ####[address] Potassium [Moles/Vol] 4.2 mmol/L Normal 3.5-5.1 [facility] Comment on above: Performed By: #### C BC, MG, CK, HS TROP, CMP, PT, PTT ####[place] [id number] [facility] Protein [Mass/Vol] 7.2 g/dL Normal 6.4-8.9 [facility] Comment on above: Performed By: #### C BC, MG, CK, HS TROP, CMP, PT, PTT ####[place] [id number] [facility] Sodium [Moles/Vol] 136 mmol/L Normal 136-145 [facility] Comment on above: Performed By: #### C BC, MG, CK, HS TROP, CMP, PT, PTT ####[facility] [id number] [place] [address] [place] Urea nitrogen [Mass/Vol] 30 mg/dL High 7-[address] [facility] Comment on above: Performed By: #### C BC, MG, CK, HS TROP, CMP, PT, PTT ####[facility] [id number] [place] [address] [facility] Creatine Kinaseon 02-12-2023 CK [Catalytic activity/Vol] 102 U/L Normal [facility] Comment on above: Performed By: #### C BC, MG, CK, HS TROP, CMP, PT, PTT ####[facility] [id number] [place] [address] [facility] Creatine kinase [Enzymatic a ctivity/volume] in Serum or PlasmaOrdered By: Humberto Zeng on 02-12-2023 CK [Catalytic activity/Vol] 102 U/L [facility] ECG 12 lead ECGon 02-12-2023 ECG 12 lead ECG Normal [facility] Globulin Calc (S) [Mass/Vol] Ordered By: Humberto Zeng on 02-12-2023 Globulin (S) [Mass/Vol] 3.2 g/dL [facility] Glucose Poct Glucometerson 1 04-14-2022 Commemt1 Glu2: Cleaned Meter Normal [facility] Comment on above: Result Comment: PERF ORMED BY:[address] [place], [place] [phone] MEDICAL DIRECTORAPRIL VEGA M.D. Performed By: #### G LULS ####Point of Care testing, Glucose [Mass/Vol] 118 mg/dL Normal [facility] Comment on above: Result Comment: [facility] Glucose Reference Range is dependent on time and content of last meal. Glucose of more than 200 mg/dL in a nonstressed, ambulatory subject supports the diagnosis of Diabetes Mellitus. Performed By: #### G LULS ####Point of Care testing, Commemt1 [facility] Comment on above: Result Comment: Glu2 : WILL NOTIFY DR/ADELINA Performed By: #### G LULS ####Point of Care testing, Commemt2 Cleaned Meter Normal [facility] Comment on above: Result Comment: PERF ORMED BY:[address] [place], [place] [phone] MEDICAL DIRECTORAPRIL VEGA M.D. Performed By: #### G LULS ####Point of Care testing, Glucose [Mass/Vol] 171 mg/dL Normal [facility] Comment on above: Result Comment: [facility] Glucose Reference Range is dependent on time and content of last meal. Glucose of more than 200 mg/dL in a nonstressed, ambulatory subject supports the diagnosis of Diabetes Mellitus. Performed By: #### G LULS ####Point of Care testing, Magnesiumon 02-12-2023 Magnesium [Mass/Vol] 2.0 mg/dL Normal 1.9-2.7 [facility] Comment on above: Result Comment: PERF ORMED BY:[address] [place], [place] [phone] MEDICAL DIRECTORAPRIL VEGA M.D. Performed By: #### C BC, MG, CK, HS TROP, CMP, PT, PTT ####[facility] [id number] [place] [address] [facility] Monocyte distribution width [Entitic volume] in Blood by AutomatedOrdered By: Humberto Zeng on 02-12-2023 Monocyte distribution width Auto (Bld) [Entitic vol] 15.38 % 0.00-20.[address] [facility] Natriuretic peptide B [Mass/ Vol]Ordered By: Humberto Zeng on 02-12-2023 Natriuretic peptide B (Bld) [Mass/Vol] 151.0 pg/mL 5-[address] [facility] No Panel InformationOrdered By: Humberto Zeng on 02-12-2023 Bedside Glucose #2 Comment Cleaned meter [facility] Partial Thromboplastin Timeo n 02-12-2023 aPTT Coag (Bld) [Time] 32.1 s Normal 25.1-36.[address] [facility] Comment on above: Result Comment: A he matocrit value greater than 55% may lead to inaccurate results in coagulation testing. Patients having hematocrit values >55% require a special collection tube for coagulation studies. Please contact the laboratory at [phone] for redraw instructions.PERFORMED BY:[address] [place], [place] [phone] MEDICAL DIRECTORAPRIL VEGA M.D. Performed By: #### C BC, MG, CK, HS TROP, CMP, PT, PTT ####[place] [id number] [place] [id number] [facility] Protein [Mass/volume] in Ser um or PlasmaOrdered By: Humberto Zeng on 02-12-2023 Protein [Mass/Vol] 7.2 g/dL 6.4-8.9 [facility] Prothrombin Time INRon 02-12 INR Coag (PPP) [Relative time] 1.0 {INR} Normal [facility] Comment on above: Result Comment: INR Therapeutic [...] valves: 3 - 4.5 Performed By: #### C BC, MG, CK, HS TROP, CMP, PT, PTT ####[address] [place] [address] [facility] PT Coag (PPP) [Time] 11.5 s Normal 9.0-12.9 [facility] [facility] Comment on above: Result Comment: A he matocrit value greater than 55% may lead to inaccurate results in coagulation testing. Patients having hematocrit values >55% require a special collection tube for coagulation studies. Please contact the laboratory at [phone] for redraw instructions. Performed By: #### C BC, MG, CK, HS TROP, CMP, PT, PTT ####[address] [place] [address] [facility] Serum or plasma albumin/glob ulin mass ratioOrdered By: Humberto Zeng on 02-12-2023 Albumin/Globulin [Mass ratio] 1.3 {ratio} [facility] Troponin I High Sensitivityo n 02-12-2023 Troponin I High Sensitivity 12.0 pg/mL Normal 0.0-20.[address] [facility] Comment on above: Result Comment: PERF ORMED BY:[facility] [place], [place] [id number] MEDICAL DIRECTORAPRIL VEGA M.D. Performed By: #### C BC, MG, CK, HS TROP, CMP, PT, PTT ####[facility] [place] [address] [facility] Troponin I.cardiac [Mass/vol ume] in Serum or Plasma by Detection limit <= 0.01 ng/Ordered By: Humberto Zeng on 02-12-2023 Troponin I.cardiac DL <= 0.01 ng/mL [Mass/Vol] 12.0 pg/mL 0.0-20.[address] [facility] XR chest 1V portableon 02-12 XR chest 1V portable Normal [facility] Albumin [Mass/volume] in Ser um or Plasma by Bromocresol green (BCG) dye binding methoOrdered By: Mina Reilly on 02-10-2023 Albumin BCG dye [Mass/Vol] 3.8 g/dL 3.5-5.[address] [facility] Calcium [Mass/volume] in Ser um or PlasmaOrdered By: Mina Reilly on 02-10-2023 Calcium [Mass/Vol] 10.8 mg/dL 8.6-10.3 [facility] Carbon dioxide, total [Moles /volume] in Serum or PlasmaOrdered By: Mina Reilly on 02-10-2023 CO2 [Moles/Vol] 29.9 mmol/L 21.0-31.0 [facility] Chloride [Moles/volume] in S elmira or PlasmaOrdered By: Mina Reilly on 02-10-2023 Chloride [Moles/Vol] 99 mmol/L 98-107 [facility] Creatinine [Mass/volume] in Serum or PlasmaOrdered By: Mina Reilly on 02-10-2023 Creatinine [Mass/Vol] 1.58 mg/dL 0.70-1.30 [facility] Glucose [Mass/volume] in Ser um or PlasmaOrdered By: Mina Reilly on 02-10-2023 Glucose [Mass/Vol] 114 mg/dL 70-100 [facility] Comment on above: ADA recommended refe rence rangeRandom Glucose Reference Range is dependent on time and content of last meal. Glucose of more than 200 mg/dL in a nonstressed, ambulatory subject supports the diagnosis of Diabetes Mellitus. Magnesiumon 02-10-2023 Magnesium [Mass/Vol] 2.0 mg/dL Normal 1.9-2.7 [facility] Comment on above: Result Comment: PERF ORMED BY:[address] [place], [place] [id number] MEDICAL DIRECTORAPRIL VEGA M.D. Performed By: #### R ENAL, MG ####[address] [place] [address] [facility] Magnesium [Mass/volume] in S elmira or PlasmaOrdered By: Subhash Duckworth on 02-10-2023 Magnesium [Mass/Vol] 2.0 mg/dL 1.9-2.7 [facility] No Panel InformationOrdered By: Mina Reilly on 02-10-2023 Estimated GFR (CKD-EPI) 48.242 mL/Min [facility] Creatinine Clearance (Chem 58.[address] [facility] Phosphate [Mass/volume] in S elmira or PlasmaOrdered By: Mina Reilly on 02-10-2023 Phosphate [Mass/Vol] 2.5 mg/dL 2.5-4.5 [facility] Potassium [Moles/volume] in Serum or PlasmaOrdered By: Mina Reilly on 02-10-2023 Potassium [Moles/Vol] 3.1 mmol/L 3.5-5.1 [facility] Renal Function Panelon 02-10 Albumin [Mass/Vol] 3.8 g/dL Normal 3.5-5.7 [facility] Comment on above: Performed By: #### R ENAL, MG ####[address] [address] [facility] Anion gap [Moles/Vol] 12.2 mmol/L Normal 6.0-15.0 [facility] Comment on above: Performed By: #### MG SANAZ ####[address] [address] [facility] Calcium [Mass/Vol] 10.8 mg/dL High 8.6-10.3 [facility] Comment on above: Performed By: #### Mary VEGA MG ####[id number] [facility] Chloride [Moles/Vol] 99 mmol/L Normal 98-107 [facility] Comment on above: Performed By: #### MG SANAZ ####[id number] [facility] CO2 [Moles/Vol] 29.9 mmol/L Normal 21.0-31.0 [facility] Comment on above: Performed By: #### MG SANAZ ####[id number] [facility] Creatinine [Mass/Vol] 1.58 mg/dL High 0.70-1.30 [facility] Comment on above: Performed By: #### MG SANAZ ####[id number] [facility] Creatinine Clr Calc Pharmacy 58.79 [facility] Comment on above: Result Comment: PERF ORMED BY:[address] [place], [place] [phone] MEDICAL JORGE VEGA M.D. Performed By: #### Mary VEGA MG ####[address] [address] [facility] GFR/1.73 sq M.predicted MDRD (S/P/Bld) [Vol rate/Area] 48.242 mL/min/{1.73_m2} [facility] Comment on above: Performed By: #### MG SANAZ ####[id number] [facility] Glucose [Mass/Vol] 114 mg/dL High 70-100 [facility] Comment on above: Result Comment: Tutor Key Glucose Reference Range is dependent on time and content of last meal. Glucose of more than 200 mg/dL in a nonstressed, ambulatory subject supports the diagnosis of Diabetes Mellitus. ADA recommended reference range Performed By: #### R ENAL, MG ####[facility] [address] [place] [address] [facility] Phosphate [Mass/Vol] 2.5 mg/dL Normal 2.5-4.5 [facility] Comment on above: Performed By: #### R ENAL, MG ####[facility] [address] Potassium [Moles/Vol] 3.1 mmol/L Low 3.5-5.1 [facility] Comment on above: Performed By: #### R ENAL, MG ####[address] [place] [id number] [facility] Sodium [Moles/Vol] 138 mmol/L Normal 136-145 [facility] Comment on above: Performed By: #### R ENAL, MG ####[address] [place] [id number] [facility] Urea nitrogen [Mass/Vol] 37 mg/dL High 10-[address] [facility] Comment on above: Performed By: #### R ENAL, MG ####[address] [place] [address] [facility] Serum or plasma anion gap de terminationOrdered By: Mina Reilly on 02-10-2023 Anion gap [Moles/Vol] 12.2 mmol/L 6.0-15.0 [facility] Sodium [Moles/volume] in Ser um or PlasmaOrdered By: Mina Reilly on 02-10-2023 Sodium [Moles/Vol] 138 mmol/L 136-145 [facility] Urea nitrogen [Mass/volume] in Serum or PlasmaOrdered By: Mina Reilly on 02-10-2023 Urea nitrogen [Mass/Vol] 37 mg/dL 10-[address] [facility] Basic Metabolic Panelon 01-17 Anion gap [Moles/Vol] 13.5 mmol/L Normal 6.0-15.0 [facility] Comment on above: Performed By: #### B MP ####[address] [place] [address] [facility] Calcium [Mass/Vol] 10.8 mg/dL High 8.6-10.3 [facility] Comment on above: Performed By: #### B MP ####[address] [place] [address] [facility] Chloride [Moles/Vol] 96 mmol/L Low 98-107 [facility] Comment on above: Performed By: #### B MP ####[address] [place] [address] [facility] CO2 [Moles/Vol] 30.3 mmol/L Normal 21.0-31.0 [facility] Comment on above: Performed By: #### B MP ####[address] [address] [facility] Creatinine [Mass/Vol] 1.70 mg/dL High 0.70-1.30 [facility] Comment on above: Performed By: #### B MP ####[address] [address] [facility] Creatinine Clr Calc Pharmacy 55.13 [facility] Comment on above: Result Comment: PERF ORMED BY:[address] [place], [place] [phone] MEDICAL JORGE VEGA M.D. Performed By: #### B MP ####[address] [address] [place] GFR/1.73 sq M.predicted MDRD (S/P/Bld) [Vol rate/Area] 44.185 mL/min/{1.73_m2} [facility] Comment on above: Performed By: #### B MP ####[address] [address] [facility] Glucose [Mass/Vol] 198 mg/dL High 70-100 [facility] Comment on above: Result Comment: Tutor Key om Glucose Reference Range is dependent on time and content of last meal. Glucose of more than 200 mg/dL in a nonstressed, ambulatory subject supports the diagnosis of Diabetes Mellitus. ADA recommended reference range Performed By: #### B MP ####[address] [address] [facility] Potassium [Moles/Vol] 2.8 mmol/L Off scale low 3.5-5.[address] [facility] Comment on above: Result Comment: Crit ical Result Called to and read back by: EMILY RODRIGUEZ at: 02/09/2023 15:32:22 by:DC Performed By: #### B MP ####[address] [address] [facility] Sodium [Moles/Vol] 137 mmol/L Normal 136-145 [facility] Comment on above: Performed By: #### B MP ####[address] [address] [facility] Urea nitrogen [Mass/Vol] 35 mg/dL High 7-[address] [facility] Comment on above: Performed By: #### B MP ####[address] [address] [facility] Anion gap [Moles/Vol] 11.5 mmol/L Normal 6.0-15.0 [facility] Comment on above: Performed By: #### B MP ####[address] [address] [facility] Calcium [Mass/Vol] 10.6 mg/dL High 8.6-10.3 [facility] Comment on above: Performed By: #### B MP ####[address] [address] [place] Chloride [Moles/Vol] 95 mmol/L Low 98-107 [facility] Comment on above: Performed By: #### B MP ####[address] [address] [facility] CO2 [Moles/Vol] 33.0 mmol/L High 21.0-31.0 [facility] Comment on above: Performed By: #### B MP ####[address] [place] [address] [facility] Creatinine [Mass/Vol] 1.53 mg/dL High 0.70-1.30 [facility] Comment on above: Performed By: #### B MP ####[address] [place] [address] [place] Creatinine Clr Calc Pharmacy 61.18 [facility] Comment on above: Result Comment: PERF ORMED BY:[address] [place], [place] [phone] MEDICAL DIRECTORAPRIL VEGA M.D. Performed By: #### B MP ####[address] [address] [facility] GFR/1.73 sq M.predicted MDRD (S/P/Bld) [Vol rate/Area] 50.140 mL/min/{1.73_m2} [facility] Comment on above: Performed By: #### B MP ####[address] [address] [facility] Glucose [Mass/Vol] 112 mg/dL High 70-100 [facility] Comment on above: Result Comment: T[place] Glucose Reference Range is dependent on time and content of last meal. Glucose of more than 200 mg/dL in a nonstressed, ambulatory subject supports the diagnosis of Diabetes Mellitus. ADA recommended reference range Performed By: #### B MP ####[address] [place] [address] [facility] Potassium [Moles/Vol] 2.5 mmol/L Off scale low 3.5-5.[address] [facility] Comment on above: Result Comment: Crit ical Result Called to and read back by: AUDREY MATHEW at: 02/09/2023 06:34:01 by:GILBERTO Performed By: #### B MP ####[address] [address] [facility] Sodium [Moles/Vol] 137 mmol/L Normal 136-145 [facility] Comment on above: Performed By: #### B MP ####[address] [place] [address] [facility] Urea nitrogen [Mass/Vol] 36 mg/dL High 7-[address] [facility] Comment on above: Performed By: #### B MP ####[address] [place] [address] [facility] Potassiumon 02-09-2023 Potassium [Moles/Vol] 3.3 mmol/L Low 3.5-5.1 [facility] Comment on above: Result Comment: PERF ORMED BY:[address] [place], [place] [id number] MEDICAL DIRECTORAPRIL VEGA M.D. Performed By: #### K ####[address] [address] [facility] Basic Metabolic Panelon 01-17 Anion gap [Moles/Vol] 11.8 mmol/L Normal 6.0-15.0 [facility] Comment on above: Performed By: #### B MP, [id number], PHOS ####[address] [address] [facility] Calcium [Mass/Vol] 10.5 mg/dL High 8.6-10.3 [facility] Comment on above: Performed By: #### B MP, [id number], PHOS ####[address] [address] [facility] Chloride [Moles/Vol] 98 mmol/L Normal 98-107 [facility] Comment on above: Performed By: #### B MP, [id number], PHOS ####[address] [address] [facility] CO2 [Moles/Vol] 30.9 mmol/L Normal 21.0-31.0 [facility] Comment on above: Performed By: #### B MP, [id number], PHOS ####[address] [address] [facility] Creatinine [Mass/Vol] 1.66 mg/dL High 0.70-1.30 [facility] Comment on above: Performed By: #### B LUCERO DIAZ PHOS ####[address] [place] [address] [facility] Creatinine Clr Calc Pharmacy 57.77 [facility] Comment on above: Performed By: #### B MARYAM [id number] PHOS ####[id number] [place] GFR/1.73 sq M.predicted MDRD (S/P/Bld) [Vol rate/Area] 45.465 mL/min/{1.73_m2} [facility] Comment on above: Performed By: #### B LUCERO DIAZ PHOS ####[address] Glucose [Mass/Vol] 80 mg/dL Normal 70-100 [facility] Comment on above: Result Comment: [facility] Glucose Reference Range is dependent on time and content of last meal. Glucose of more than 200 mg/dL in a nonstressed, ambulatory subject supports the diagnosis of Diabetes Mellitus. ADA recommended reference range Performed By: #### B LUCERO DIAZ PHOS ####[id number] [facility] Potassium [Moles/Vol] 2.7 mmol/L Off scale low 3.5-5.[address] [facility] Comment on above: Result Comment: Critemi ical Result Called to and read back by: HELIO HU at: 02/08/2023 05:49:44 by:[id number] Performed By: #### B MARYAM [id number] PHOS ####[id number] [facility] Sodium [Moles/Vol] 138 mmol/L Normal 136-145 [facility] Comment on above: Performed By: #### B MARYAM [id number], PHOS ####[id number] [facility] Urea nitrogen [Mass/Vol] 37 mg/dL High 7-[address] [facility] Comment on above: Performed By: #### B MP, [id number], PHOS ####[address] [place] [address] [facility] ECG 12 lead ECGon 02-08-2023 ECG 12 lead ECG Normal [facility] ECH echo transthoracicon ECH echo transthoracic Normal [facility] Parathyrin.intact [Mass/volu me] in Serum or PlasmaOrdered By: Mina Reilly on 02-08-2023 Parathyrin.intact [Mass/Vol] 201.3 pg/mL [facility] Parathyroid Hormone Intacton 02-08-2023 Parathyroid Hormone Intact 201.3 pg/mL High [facility] Comment on above: Result Comment: PERF ORMED BY:[address] [place] [id number] MEDICAL DIRECTORAPRIL VEGA M.D. Performed By: #### P TH ####[address] [address] [facility] Phosphoruson 02-08-2023 Phosphate [Mass/Vol] 4.2 mg/dL Normal 2.5-4.5 [facility] Comment on above: Performed By: #### B MP, [id number], PHOS ####[address] [address] [facility] US renal BIon 02-08-2023 US renal BI Normal [facility] Vitamin D 25 Hydroxy Totalon 02-08-2023 Vitamin D 25 Hydroxy Total 43.1 ng/mL Normal 30-[address] [facility] Comment on above: Result Comment: CATIE MIN D STATUS 25(OH)VITAMIN D RANGE (ng/mL) Deficient <20 Insufficient 20 to <30 Sufficient 30 to 100 Reference: Laurie MF,Sravan NC, Ryne JACK, et al. Evaluation,treatment, and prevention of vitamin D deficiency; an Endocrine Society clinical practice guideline. JCEM. 2010; 96(7):1911-30.PERFORMED BY:[address] [place] [id number] MEDICAL DIRECTORAPRIL VEGA M.D. Performed By: #### B MP, [id number], PHOS ####[facility] [place] [address] [facility] Vitamin D+Metabolites [Mass/ volume] in Serum or PlasmaOrdered By: Mina Reilly on 02-08-2023 Vitamin D+Metabolites [Mass/Vol] 43.1 ng/mL 30-[address] [facility] Comment on above: VITAMIN D STATUS 25( [place])VITAMIN D RANGE (ng/mL) Deficient <20 Insufficient 20 to <30Sufficient 30 to 100Reference: Laurie MF,Sravan NC, Ryne JACK, et al. Evaluation,treatment, and prevention of vitamin D deficiency; an Endocrine Society clinical practice guideline. JCEM. 2010; 96(7):1911-30. Basic Metabolic Panelon 01-17 Anion gap [Moles/Vol] 12.3 mmol/L Normal 6.0-15.0 [facility] Comment on above: Performed By: #### B MP ####[facility] [place] [address] [place] Calcium [Mass/Vol] 11.1 mg/dL High 8.6-10.3 [facility] Comment on above: Performed By: #### B MP ####[facility] [place] [address] [place] Chloride [Moles/Vol] 100 mmol/L Normal 98-107 [facility] Comment on above: Performed By: #### B MP ####[facility] [facility] [place] [address] [place] CO2 [Moles/Vol] 29.3 mmol/L Normal 21.0-31.0 [facility] Comment on above: Performed By: #### B MP ####[facility] [place] [address] [place] Creatinine [Mass/Vol] 1.80 mg/dL High 0.70-1.30 [facility] Comment on above: Performed By: #### B MP ####[facility] [place] [address] [facility] Creatinine Clr Calc Pharmacy 53.[address] [facility] Comment on above: Result Comment: PERF ORMED BY:[address] [place] [place], [place] [phone] MEDICAL DIRECTORAPRIL VEGA M.D. Performed By: #### B MP ####[id number] [facility] GFR/1.73 sq M.predicted MDRD (S/P/Bld) [Vol rate/Area] 41.256 mL/min/{1.73_m2} Normal [facility] Comment on above: Performed By: #### B MP ####[id number] [facility] Glucose [Mass/Vol] 116 mg/dL High 70-100 [facility] Comment on above: Result Comment: [facility] Glucose Reference Range is dependent on time and content of last meal. Glucose of more than 200 mg/dL in a nonstressed, ambulatory subject supports the diagnosis of Diabetes Mellitus. ADA recommended reference range Performed By: #### B MP ####[id number] [facility] Potassium [Moles/Vol] 3.6 mmol/L Significan t change down 3.5-5.[address] [facility] Comment on above: Performed By: #### B MP ####[id number] [facility] Sodium [Moles/Vol] 138 mmol/L Normal 136-145 [facility] Comment on above: Performed By: #### B MP ####[address] [address] [facility] Urea nitrogen [Mass/Vol] 34 mg/dL High 7-[address] [facility] Comment on above: Performed By: #### B MP ####[id number] [facility] Anion gap [Moles/Vol] 8.2 mmol/L Normal 6.0-15.0 [facility] Comment on above: Order Comment: Comme nt redraw therapy in rm with pt Performed By: #### B MP ####[address] [address] [facility] Calcium [Mass/Vol] 10.8 mg/dL High 8.6-10.3 [facility] Comment on above: Order Comment: Comme nt redraw therapy in rm with pt Performed By: #### B MP ####[address] [address] [facility] Chloride [Moles/Vol] 106 mmol/L Normal 98-107 [facility] Comment on above: Order Comment: Comme nt redraw therapy in rm with pt Performed By: #### B MP ####[address] [address] [facility] CO2 [Moles/Vol] 26.1 mmol/L Normal 21.0-31.0 [facility] Comment on above: Order Comment: Comme nt redraw therapy in rm with pt Performed By: #### B MP ####[address] [address] [facility] Creatinine [Mass/Vol] 1.42 mg/dL High 0.70-1.30 [facility] Comment on above: Order Comment: Comme nt redraw therapy in rm with pt Performed By: #### B MP ####[address] [address] [facility] Creatinine Clr Calc Pharmacy 67.53 [facility] Comment on above: Order Comment: Comme nt redraw therapy in rm with pt Result Comment: PERF ORMED BY:[address] [place] [place], [place] [phone] MEDICAL JORGE VEGA M.D. Performed By: #### B MP ####[address] [address] [facility] GFR/1.73 sq M.predicted MDRD (S/P/Bld) [Vol rate/Area] 54.836 mL/min/{1.73_m2} [facility] Comment on above: Order Comment: Comme nt redraw therapy in rm with pt Performed By: #### B MP ####[address] [place] [address] [facility] Glucose [Mass/Vol] 177 mg/dL High 70-100 [facility] Comment on above: Order Comment: Comme nt redraw therapy in rm with pt Result Comment: T[place] om Glucose Reference Range is dependent on time and content of last meal. Glucose of more than 200 mg/dL in a nonstressed, ambulatory subject supports the diagnosis of Diabetes Mellitus. ADA recommended reference range Performed By: #### B MP ####[address] [place] [address] [place] Potassium [Moles/Vol] 6.3 mmol/L Off scale high 3.5-5.[address] [facility] Comment on above: Order Comment: Comme nt redraw therapy in rm with pt Result Comment: Crit ical Result Called to and read back by: EMILY MCDANIELS at: 02/07/2023 11:56:44 by:JODIE Performed By: #### B MP ####[address] [place] [address] [facility] Sodium [Moles/Vol] 134 mmol/L Low 136-145 [facility] Comment on above: Order Comment: Comme nt redraw therapy in rm with pt Performed By: #### B MP ####[address] [place] [address] [place] Urea nitrogen [Mass/Vol] 31 mg/dL High 7-[address] [facility] Comment on above: Order Comment: Comme nt redraw therapy in rm with pt Performed By: #### B MP ####[address] [place] [address] [place] Anion gap [Moles/Vol] 8.5 mmol/L Normal 6.0-15.0 [facility] Comment on above: Performed By: #### B MP ####[address] [place] [address] [facility] Calcium [Mass/Vol] 10.9 mg/dL High 8.6-10.3 [facility] Comment on above: Performed By: #### B MP ####[address] [place] [address] [facility] Chloride [Moles/Vol] 105 mmol/L Normal 98-107 [facility] Comment on above: Performed By: #### B MP ####[address] [place] [address] [facility] CO2 [Moles/Vol] 27.4 mmol/L Normal 21.0-31.0 [facility] Comment on above: Performed By: #### B MP ####[address] [place] [address] [facility] Creatinine [Mass/Vol] 1.40 mg/dL High 0.70-1.30 [facility] Comment on above: Performed By: #### B MP ####[address] [place] [address] [facility] Creatinine Clr Calc Pharmacy 68.50 [facility] Comment on above: Result Comment: PERF ORMED BY:[address] [place], [place] [phone] MEDICAL DIRECTORAPRIL VEGA M.D. Performed By: #### B MP ####[address] [place] [address] [facility] GFR/1.73 sq M.predicted MDRD (S/P/Bld) [Vol rate/Area] 55.778 mL/min/{1.73_m2} [facility] Comment on above: Performed By: #### B MP ####[address] [address] [facility] Glucose [Mass/Vol] 164 mg/dL High 70-100 [facility] Comment on above: Result Comment: [place] Glucose Reference Range is dependent on time and content of last meal. Glucose of more than 200 mg/dL in a nonstressed, ambulatory subject supports the diagnosis of Diabetes Mellitus. ADA recommended reference range Performed By: #### B MP ####[address] [address] [facility] Potassium [Moles/Vol] 5.9 mmol/L High 3.5-5.1 [facility] Comment on above: Performed By: #### B MP ####[facility] [place] [address] [facility] Sodium [Moles/Vol] 135 mmol/L Low 136-145 [facility] Comment on above: Performed By: #### B MP ####[facility] [place] [address] [facility] Urea nitrogen [Mass/Vol] 29 mg/dL High 7-[address] [facility] Comment on above: Performed By: #### B MP ####[address] [place] [id number] [facility] Creatinine [Mass/volume] in UrineOrdered By: Mina Reilly on 02-07-2023 Creatinine (U) [Mass/Vol] 12.0 mg/dL 14.0-26.[address] [facility] Creatinine, Urine (Random)on 02-07-2023 Creatinine, Urine (Random) 12.0 mg/dL Low 14.0-26.[address] [facility] Comment on above: Performed By: #### U NA, , UCREA ####[address] [place] [id number] [facility] Glucose Glucometer (BldC) [M ass/Vol]Ordered By: Barry Cisneros on 02-07-2023 Glucose [Mass/Vol] 117 mg/dL [facility] Comment on above: Random Glucose Refer ence Range is dependent on time and content of last meal. Glucose of more than 200 mg/dL in a nonstressed, ambulatory subject supports the diagnosis of Diabetes Mellitus. Glucose Poct Glucometerson 1 04-09-2022 Glucose [Mass/Vol] 117 mg/dL Normal [facility] Comment on above: Result Comment: Tutor Key Glucose Reference Range is dependent on time and content of last meal. Glucose of more than 200 mg/dL in a nonstressed, ambulatory subject supports the diagnosis of Diabetes Mellitus.PERFORMED BY:[place] [id number] [place], [place] [phone] MEDICAL DIRECTORAPRIL VEGA M.D. Performed By: #### G OZZY ####Point of Care testing, Glucose [Mass/Vol] 63 mg/dL Normal [facility] Comment on above: Result Comment: [place] Glucose Reference Range is dependent on time and content of last meal. Glucose of more than 200 mg/dL in a nonstressed, ambulatory subject supports the diagnosis of Diabetes Mellitus.PERFORMED BY:[place] [address] [place], [place] [phone] MEDICAL JORGE VEGA M.D. Performed By: #### G OZZY ####Point of Care testing, Potassium [Moles/volume] in UrineOrdered By: Mina Reilly on 02-07-2023 Potassium (U) [Moles/Vol] 70.6 mmol/L [facility] Comment on above: No reference range e stablished Potassium, Urine (Random)on 02-07-2023 Potassium, Urine (Random) 70.6 mmol/L [facility] Comment on above: Result Comment: No r eference range establishedPERFORMED BY:[place] [address] [place], [place] [phone] MEDICAL JORGE VEGA M.D. Performed By: #### U UK DIGNA, UCREA ####[address] [address] [facility] Sodium [Moles/volume] in Uri neOrdered By: Mina Reilly on 02-07-2023 Sodium (U) [Moles/Vol] 63 mmol/L [facility] Comment on above: No reference range e stablished Sodium, Urine (Random)on Sodium (U) [Moles/Vol] 63 mmol/L [facility] Comment on above: Result Comment: No r eference range established Performed By: #### U NA, UK, UCREA ####[address] [address] [facility] Activated partial thrombopla stin time (aPTT) in platelet poor plasma by coagulation aOrdered By: Bobby Bernabe on 02-06-2023 aPTT Coag (PPP) [Time] 31.1 s 25.1-36.[address] [facility] Comment on above: A hematocrit value g reater than 55% may lead to inaccurate results in coagulation testing. Patients having hematocrit values >55% require a special collection tube for coagulation studies. Please contact the laboratory at [phone] for redraw instructions. Alanine aminotransferase [En zymatic activity/volume] in Serum or PlasmaOrdered By: Bobby Bernabe on 02-06-2023 ALT [Catalytic activity/Vol] 16 U/L 7-[address] [facility] Albumin [Mass/volume] in Ser um or Plasma by Bromocresol green (BCG) dye binding methoOrdered By: Bobby Bernabe on 02-06-2023 Albumin BCG dye [Mass/Vol] 4.1 g/dL 3.5-5.[address] [facility] Alkaline phosphatase [Enzyma tic activity/volume] in Serum or PlasmaOrdered By: Bobby Bernabe on 02-06-2023 ALP [Catalytic activity/Vol] 108 U/L 34-[address] [facility] Ammoniaon 02-06-2023 Ammonia (P) [Moles/Vol] 20 umol/L Normal [facility] Comment on above: Result Comment: PERF ORMED BY:[address] [place], [place] [phone] MEDICAL DIRECTORAPRIL VEGA M.D. Performed By: #### P TT, TSH3, PT, MG, CK, AMM, BNP, CMP, HS TROP ####[facility] [address] [place] [address] [facility] Ammonia [Moles/volume] in Pl asmaOrdered By: Bobby Bernabe on 02-06-2023 Ammonia (P) [Moles/Vol] 20 umol/L [facility] Aspartate aminotransferase [ Enzymatic activity/volume] in Serum or PlasmaOrdered By: Bobby Bernabe on 02-06-2023 AST [Catalytic activity/Vol] 21 U/L 13-[address] [facility] B-Type Natriuretic Peptideon 02-06-2023 Natriuretic peptide B (Bld) [Mass/Vol] 151.0 pg/mL High 5-[address] [facility] Comment on above: Result Comment: PERF ORMED BY:[facility] [place], [place] [phone] MEDICAL DIRECTORAPRIL VEGA M.D. Performed By: #### P TT, TSH3, PT, MG, CK, AMM, BNP, CMP, HS TROP ####[facility] [address] [place] [address] [facility] Basophils Auto (Bld) [#/Vol] Ordered By: Bobby Bernabe on 02-06-2023 Basophils (Bld) [#/Vol] 0.1 10*3/uL 0.0-0.[address] [facility] Basophils/100 WBC Auto (Bld) Ordered By: Bobby Bernabe on 02-06-2023 Basophils/100 WBC (Bld) 0.9 % . [facility] Bilirubin Auto test strip Ql (U)Ordered By: Bobby Bernabe on 02-06-2023 Bilirubin Ql (U) Negative Negative [facility] Bilirubin.total [Mass/volume ] in Serum or PlasmaOrdered By: Bobby Bernabe on 02-06-2023 Bilirubin [Mass/Vol] 0.6 mg/dL 0.3-1.0 [facility] COVID CepheidOrdered By: Pao Bernabe on 02-06-2023 SARS-CoV-2 (COVID-19) Ab IA Ql Negative Negative [facility] Comment on above: This is a duplicate CepHappy Cloud Xpert Xpress CoV-2/Flu/RSV Plus RNA by RT-PCR result to be used for statistical tracking purpose only. SARS-CoV-2 (COVID-19) RNA EMILY+probe Ql (Unsp spec) [facility] COVID-19 / Flu A/B / RSV PCR on 02-06-2023 SARS-CoV-2 (COVID-19) RNA EMILY+probe Ql (Unsp spec) Normal [facility] Comment on above: Performed By: #### C EPHEID NEG, COVID19 FLU RSV ####[facility] [address] [place] [address] [facility] Calcium [Mass/volume] in Ser um or PlasmaOrdered By: Bobby Bernabe on 02-06-2023 Calcium [Mass/Vol] 11.3 mg/dL 8.6-10.3 [facility] Carbon dioxide, total [Moles /volume] in Serum or PlasmaOrdered By: Bobby Dobbscatherine on 02-06-2023 CO2 [Moles/Vol] 28.3 mmol/L 21.0-31.0 [facility] Cepheid COVID PCR Negativeon 02-06-2023 SARS-CoV-2 (COVID-19) RNA EMILY+probe Ql (Unsp spec) Negative Normal Negative [facility] Comment on above: Result Comment: This is a duplicate Cepheid Xpert Xpress CoV-2/Flu/RSV Plus RNA by RT-PCR result to be used for statistical tracking purpose only.PERFORMED BY:[place] [address] [place], [place] [phone] MEDICAL DIRECTORAPRIL VEGA M.D. Performed By: #### C EPHEID NEG, COVID19 FLU RSV ####[address] [address] [place] Chloride [Moles/volume] in S elmira or PlasmaOrdered By: Bobby Bernabe on 02-06-2023 Chloride [Moles/Vol] 104 mmol/L 98-107 [facility] Complete Blood Count Auto Di ffon 02-06-2023 Basophils (Bld) [#/Vol] 0.1 10*3/uL Normal 0.0-0.[address] [facility] Comment on above: Result Comment: PERF ORMED BY:[place] [address] [place], [place] [phone] MEDICAL DIRECTORAPRIL VEGA M.D. Performed By: #### C BC ####[address] [address] [place] Basophils/100 WBC (Bld) 0.9 % Normal . [facility] Comment on above: Performed By: #### C BC ####[address] [address] [facility] Eosinophils (Bld) [#/Vol] 0.3 10*3/uL Normal 0.0-0.[address] [facility] Comment on above: Performed By: #### C BC ####[address] Eosinophils/100 WBC (Bld) 5.4 % Normal . [facility] Comment on above: Performed By: #### C BC ####[address] Erythrocyte distribution width (RBC) [Ratio] 16.0 % High 12.0-14.[address] [facility] Comment on above: Performed By: #### C BC ####[address] Hematocrit (Bld) [Volume fraction] 39.3 % Normal 38.8-50.[address] [facility] Comment on above: Performed By: #### C BC ####[address] Hemoglobin (Bld) [Mass/Vol] 13.0 g/dL Normal 13.0-17.[address] [facility] Comment on above: Performed By: #### C BC ####[address] Lymphocytes (Bld) [#/Vol] 0.9 10*3/uL Low 1.00-4.[address] [facility] Comment on above: Performed By: #### C BC ####[place] [id number] [facility] Lymphocytes/100 WBC (Bld) 16.3 % Normal . [facility] Comment on above: Performed By: #### C BC ####[place] [id number] [facility] MCH (RBC) [Entitic mass] 28.0 pg Normal 27.5-35.[address] [facility] Comment on above: Performed By: #### C BC ####[place] [id number] [facility] MCV (RBC) [Entitic vol] 85.0 fL Normal 83.5-[address] [facility] Comment on above: Performed By: #### C BC ####[address] [address] [facility] Mean Corpuscular HGB Conc 33.0 g/dL Normal 32.5-35.[address] [facility] Comment on above: Performed By: #### C BC ####[address] [address] [facility] Monocytes (Bld) [#/Vol] 0.6 10*3/uL Normal 0.0-0.[address] [facility] Comment on above: Performed By: #### C BC ####[address] [address] [facility] Monocytes/100 WBC (Bld) 15.78 % Normal 0.00-20.[address] [facility] Comment on above: Performed By: #### C BC ####[address] [address] [facility] Monocytes/100 WBC (Bld) 10.8 % Normal . [facility] Comment on above: Performed By: #### C BC ####[address] [address] [facility] Neutrophils (Bld) [#/Vol] 3.7 10*3/uL Normal 1.8-7.[address] [facility] Comment on above: Performed By: #### C BC ####[address] [address] [facility] Neutrophils/100 WBC (Bld) 66.6 % Normal . [facility] Comment on above: Performed By: #### C BC ####[address] [address] [facility] NRBC% 0.1 /100{WBC} Normal 0-0.[address] [facility] Comment on above: Performed By: #### C BC ####[address] [address] [facility] Platelet mean volume (Bld) [Entitic vol] 6.9 fL Normal 6.6-10.[address] [facility] Comment on above: Performed By: #### C BC ####[address] Platelets (Bld) [#/Vol] 228 10*3/uL Normal 150-[address] [facility] Comment on above: Performed By: #### C BC ####[address] RBC (Bld) [#/Vol] 4.62 10*6/uL Normal 3.90-5.60 [facility] Comment on above: Performed By: #### C BC ####[address] WBC (Bld) [#/Vol] 5.6 10*3/uL Normal 4.1-10.5 [facility] Comment on above: Performed By: #### C BC ####[address] Comprehensive Metabolic Pane anny 02-06-2023 Albumin [Mass/Vol] 4.1 g/dL Normal 3.5-5.7 [facility] Comment on above: Performed By: #### P TT, TSH3, PT, MG, CK, AMM, BNP, CMP, HS TROP ####[address] Albumin/Globulin [Mass ratio] 1.2 {ratio} Normal [facility] Comment on above: Performed By: #### P TT, TSH3, PT, MG, CK, AMM, BNP, CMP, HS TROP ####[address] ALP [Catalytic activity/Vol] 108 U/L High 34-[address] [facility] Comment on above: Performed By: #### P TT, TSH3, PT, MG, CK, AMM, BNP, CMP, HS TROP ####[address] ALT [Catalytic activity/Vol] 16 U/L Normal 7-[address] [facility] Comment on above: Performed By: #### P TT, TSH3, PT, MG, CK, AMM, BNP, CMP, HS TROP ####[place] [id number] [facility] Anion gap [Moles/Vol] 9.3 mmol/L Normal 6.0-15.0 [facility] Comment on above: Performed By: #### P TT, TSH3, PT, MG, CK, AMM, BNP, CMP, HS TROP ####[place] [id number] [facility] AST [Catalytic activity/Vol] 21 U/L Normal 13-[address] [facility] Comment on above: Performed By: #### P TT, TSH3, PT, MG, CK, AMM, BNP, CMP, HS TROP ####[address] Bilirubin [Mass/Vol] 0.6 mg/dL Normal 0.3-1.0 [facility] Comment on above: Performed By: #### P TT, TSH3, PT, MG, CK, AMM, BNP, CMP, HS TROP ####[address] Calcium [Mass/Vol] 11.3 mg/dL High 8.6-10.3 [facility] Comment on above: Performed By: #### P TT, TSH3, PT, MG, CK, AMM, BNP, CMP, HS TROP ####[place] [id number] [facility] Chloride [Moles/Vol] 104 mmol/L Normal 98-107 [facility] Comment on above: Performed By: #### P TT, TSH3, PT, MG, CK, AMM, BNP, CMP, HS TROP ####[place] [id number] [facility] CO2 [Moles/Vol] 28.3 mmol/L Normal 21.0-31.0 [facility] Comment on above: Performed By: #### P TT, TSH3, PT, MG, CK, AMM, BNP, CMP, HS TROP ####[address] Creatinine [Mass/Vol] 1.31 mg/dL High 0.70-1.30 [facility] Comment on above: Performed By: #### P TT, TSH3, PT, MG, CK, AMM, BNP, CMP, HS TROP ####[address] Creatinine Clr Calc Pharmacy 73.09 [facility] Comment on above: Performed By: #### P TT, TSH3, PT, MG, CK, AMM, BNP, CMP, HS TROP ####[address] GFR/1.73 sq M.predicted MDRD (S/P/Bld) [Vol rate/Area] mL/min/{1.73_m2} [facility] Comment on above: Performed By: #### P TT, TSH3, PT, MG, CK, AMM, BNP, CMP, HS TROP ####[address] Globulin (S) [Mass/Vol] 3.4 g/dL [facility] Comment on above: Performed By: #### P TT, TSH3, PT, MG, CK, AMM, BNP, CMP, HS TROP ####[address] Glucose [Mass/Vol] 164 mg/dL High 70-100 [facility] Comment on above: Result Comment: Tutor Key Glucose Reference Range is dependent on time and content of last meal. Glucose of more than 200 mg/dL in a nonstressed, ambulatory subject supports the diagnosis of Diabetes Mellitus. ADA recommended reference range Performed By: #### P TT, TSH3, PT, MG, CK, AMM, BNP, CMP, HS TROP ####[address] Potassium [Moles/Vol] 4.6 mmol/L Normal 3.5-5.1 [facility] Comment on above: Performed By: #### P TT, TSH3, PT, MG, CK, AMM, BNP, CMP, HS TROP ####[address] Protein [Mass/Vol] 7.5 g/dL Normal 6.4-8.9 [facility] Comment on above: Performed By: #### P TT, TSH3, PT, MG, CK, AMM, BNP, CMP, HS TROP ####[address] Sodium [Moles/Vol] 137 mmol/L Normal 136-145 [facility] Comment on above: Performed By: #### P TT, TSH3, PT, MG, CK, AMM, BNP, CMP, HS TROP ####[address] Urea nitrogen [Mass/Vol] 29 mg/dL High 7-[address] [facility] Comment on above: Performed By: #### P TT, TSH3, PT, MG, CK, AMM, BNP, CMP, HS TROP ####[address] Creatine Kinaseon 02-06-2023 CK [Catalytic activity/Vol] 107 U/L Normal [facility] Comment on above: Performed By: #### P TT, TSH3, PT, MG, CK, AMM, BNP, CMP, HS TROP ####[address] Creatine kinase [Enzymatic a ctivity/volume] in Serum or PlasmaOrdered By: Bobby Bernabe on 02-06-2023 CK [Catalytic activity/Vol] 107 U/L [facility] Creatinine [Mass/volume] in Serum or PlasmaOrdered By: Bobby Bernabe on 02-06-2023 Creatinine [Mass/Vol] 1.31 mg/dL 0.70-1.30 [facility] ECG 12 lead ECGon 02-06-2023 ECG 12 lead ECG Normal [facility] ECG 12 lead ECG Normal [facility] ECG 12 lead ECG Normal [facility] Eosinophils Auto (Bld) [#/Vo l]Ordered By: Bobby Bernabe on 02-06-2023 Eosinophils (Bld) [#/Vol] 0.3 10*3/uL 0.0-0.[address] [facility] Eosinophils/100 WBC Auto (Bl d)Ordered By: Bobby Bernabe on 02-06-2023 Eosinophils/100 WBC (Bld) 5.4 % . [facility] Erythrocyte distribution wid th Auto (RBC) [Ratio]Ordered By: Bobby Bernabe on 02-06-2023 Erythrocyte distribution width (RBC) [Ratio] 16.0 % 12.0-14.[address] [facility] Globulin Calc (S) [Mass/Vol] Ordered By: Bobby Bernabe on 02-06-2023 Globulin (S) [Mass/Vol] 3.4 g/dL [facility] Glucose Glucometer (BldC) [M ass/Vol]Ordered By: Bobby Bernabe on 02-06-2023 Glucose [Mass/Vol] 144 mg/dL [facility] Comment on above: Random Glucose Refer ence Range is dependent on time and content of last meal. Glucose of more than 200 mg/dL in a nonstressed, ambulatory subject supports the diagnosis of Diabetes Mellitus. Glucose Poct Glucometerson 1 04-08-2022 Glucose [Mass/Vol] 144 mg/dL Normal [facility] Comment on above: Result Comment: [place] Glucose Reference Range is dependent on time and content of last meal. Glucose of more than 200 mg/dL in a nonstressed, ambulatory subject supports the diagnosis of Diabetes Mellitus.PERFORMED BY:[facility] [place], [place] [phone] MEDICAL DIRECTORAPRIL VEGA M.D. Performed By: #### G LUSEE ####Point of Care testing, Glucose [Mass/volume] in Ser um or PlasmaOrdered By: Bobby Bernabe on 02-06-2023 Glucose [Mass/Vol] 164 mg/dL 70-100 [facility] Comment on above: ADA recommended refe rence rangeRandom Glucose Reference Range is dependent on time and content of last meal. Glucose of more than 200 mg/dL in a nonstressed, ambulatory subject supports the diagnosis of Diabetes Mellitus. Hematocrit Auto (Bld) [Volum e fraction]Ordered By: Bobby Bernabe on 02-06-2023 Hematocrit (Bld) [Volume fraction] 39.3 % 38.8-50.[address] [facility] Hemoglobin [Mass/volume] in BloodOrdered By: Bobby Bernabe on 02-06-2023 Hemoglobin (Bld) [Mass/Vol] 13.0 g/dL 13.0-17.[address] [facility] INR in Platelet poor plasma by Coagulation assayOrdered By: Bobby Bernabe on 02-06-2023 INR Coag (PPP) [Relative time] 1.0 {INR} [facility] Comment on above: INR Therapeutic Rang e [...] on 02-06-2023 Ketones (U) [Mass/Vol] Negative Negative [facility] Laboratory - Chemistry and C hemistry - challengeOrdered By: Bobby Bernabe on 02-06-2023 CO2 [Moles/Vol] 25.5 mmol/L 24.0-29.0 [facility] HCO3 (Bld) [Moles/Vol] 24.0 mmol/L 23.0-29.[address] [facility] Leukocytes [#/volume] correc martin for nucleated erythrocytes in Blood by Automated counOrdered By: Bobby Bernabe on 02-06-2023 WBC corrected for nucl RBC Auto (Bld) [#/Vol] 5.6 10*3/uL 4.1-10.[address] [facility] Lymphocytes Auto (Bld) [#/Vo l]Ordered By: Bobby Bernabe on 02-06-2023 Lymphocytes (Bld) [#/Vol] 0.9 10*3/uL 1.00-4.[address] [facility] Lymphocytes/100 WBC Auto (Bl d)Ordered By: Bobby Bernabe on 02-06-2023 Lymphocytes/100 WBC (Bld) 16.3 % . [facility] MCH Auto (RBC) [Entitic mass ]Ordered By: Bobby Bernabe on 02-06-2023 MCH (RBC) [Entitic mass] 28.0 pg 27.5-35.[address] [facility] MCHC Auto (RBC) [Mass/Vol]Or dered By: Bobby Bernabe on 02-06-2023 MCHC (RBC) [Mass/Vol] 33.0 g/dL 32.5-35.6 [facility] MCV Auto (RBC) [Entitic vol] Ordered By: Bobby Bernabe on 02-06-2023 MCV (RBC) [Entitic vol] 85.0 fL 83.5-[address] [facility] Magnesiumon 02-06-2023 Magnesium [Mass/Vol] 1.6 mg/dL Low 1.9-2.7 [facility] Comment on above: Performed By: #### P TT, TSH3, PT, MG, CK, AMM, BNP, CMP, HS TROP ####[facility] [id number] Magnesium [Mass/volume] in S elm[place] or PlasmaOrdered By: Bobby Bernabe on 02-06-2023 Magnesium [Mass/Vol] 1.6 mg/dL 1.9-2.7 [facility] Monocyte distribution width [Entitic volume] in Blood by AutomatedOrdered By: Bobby Bernabe on 02-06-2023 Monocyte distribution width Auto (Bld) [Entitic vol] 15.78 % 0.00-20.[address] [facility] Monocytes Auto (Bld) [#/Vol] Ordered By: Bobby Bernabe on 02-06-2023 Monocytes (Bld) [#/Vol] 0.6 10*3/uL 0.0-0.[address] [facility] Monocytes/100 WBC Auto (Bld) Ordered By: Bobby Bernabe on 02-06-2023 Monocytes/100 WBC (Bld) 10.8 % . [facility] Natriuretic peptide B [Mass/ Vol]Ordered By: Bobby Bernabe on 02-06-2023 Natriuretic peptide B (Bld) [Mass/Vol] 151.0 pg/mL 5-[address] [facility] Neutrophils Auto (Bld) [#/Vo l]Ordered By: Bobby Bernabe on 02-06-2023 Neutrophils (Bld) [#/Vol] 3.7 10*3/uL 1.8-7.[address] [facility] Neutrophils/100 WBC Auto (Bl d)Ordered By: Bobby Bernabe on 02-06-2023 Neutrophils/100 WBC (Bld) 66.6 % . [facility] No Panel InformationOrdered By: Bobby Bernabe on 02-06-2023 Blood Gas Critical Value See comment [facility] Comment on above: Critical Value de guzman d on: 02/06/2023 at 13:24 Blood Gas Sample Site Venous Fir [facility] FiO2 Na % [facility] Venous Blood Base Excess -2.8 mmol/L -3.0-3.[address] [facility] Venous Blood Oxygen Content 4.4 mmol/L 6.6-9.[address] [facility] Venous Blood Oxygen Saturation 51.4 % 73.0-76.[address] [facility] Venous Blood Partial Pressure CO2 49.0 mm[Hg] 38.0-50.[address] [facility] Venous Blood Partial Pressure O2 28.8 mm[Hg] 35.0-45.[address] [facility] Venous Blood pH 7.31 7.32-7.[address] [facility] Estimated GFR (CKD-EPI) > 60.0 mL/Min [facility] Creatinine Clearance (Chem 73.[address] [facility] Nucleated erythrocytes [Pres ence] in Blood by Automated countOrdered By: Bobby Bernabe on 02-06-2023 Nucleated RBC Auto Ql (Bld) 0.1 /100{WBC} 0-0.[address] [facility] Partial Thromboplastin Timeo n 02-06-2023 aPTT Coag (Bld) [Time] 31.1 s Normal 25.1-36.[address] [facility] Comment on above: Result Comment: A he matocrit value greater than 55% may lead to inaccurate results in coagulation testing. Patients having hematocrit values >55% require a special collection tube for coagulation studies. Please contact the laboratory at [phone] for redraw instructions.PERFORMED BY:[facility] [place], [place] [phone] MEDICAL DIRECTORAPRIL VEGA M.D. Performed By: #### P TT, TSH3, PT, MG, CK, AMM, BNP, CMP, HS TROP ####[facility] [place] [id number] [facility] Platelet mean volume Auto (B ld) [Entitic vol]Ordered By: Bobby Bernabe on 02-06-2023 Platelet mean volume (Bld) [Entitic vol] 6.9 fL 6.6-10.[address] [facility] Platelets Auto (Bld) [#/Vol] Ordered By: Bobby Bernabe on 02-06-2023 Platelets (Bld) [#/Vol] 228 10*3/uL 150-[address] [facility] Potassium [Moles/volume] in Serum or PlasmaOrdered By: Bobby Bernabe on 02-06-2023 Potassium [Moles/Vol] 4.6 mmol/L 3.5-5.1 [facility] Protein Auto test strip (U) [Mass/Vol]Ordered By: Bobby Bernabe on 02-06-2023 Protein (U) [Mass/Vol] Negative Negative [facility] Protein [Mass/volume] in Ser um or PlasmaOrdered By: Bobby Bernabe on 02-06-2023 Protein [Mass/Vol] 7.5 g/dL 6.4-8.9 [facility] Prothrombin Time INRon 02-06 INR Coag (PPP) [Relative time] 1.0 {INR} Normal [facility] Comment on above: Result Comment: INR Therapeutic [...] - 4.5 Performed By: #### P TT, TSH3, PT, MG, CK, AMM, BNP, CMP, HS TROP ####[facility] [place] [id number] [facility] PT Coag (PPP) [Time] 11.5 s Normal 9.0-12.9 [facility] Comment on above: Result Comment: A he matocrit value greater than 55% may lead to inaccurate results in coagulation testing. Patients having hematocrit values >55% require a special collection tube for coagulation studies. Please contact the laboratory at [phone] for redraw instructions. Performed By: #### P TT, TSH3, PT, MG, CK, AMM, BNP, CMP, HS TROP ####[facility] [place] [address] [place] Prothrombin time (PT)Ordered By: Bobby Bernabe on 02-06-2023 PT Coag (PPP) [Time] 11.5 s 9.0-12.9 [facility] Comment on above: A hematocrit value g reater than 55% may lead to inaccurate results in coagulation testing. Patients having hematocrit values >55% require a special collection tube for coagulation studies. Please contact the laboratory at [phone] for redraw instructions. RBC Auto (Bld) [#/Vol]Ordere d By: Bobby Bernabe on 02-06-2023 RBC (Bld) [#/Vol] 4.62 10*6/uL 3.90-5.60 [facility] Serum or plasma albumin/glob ulin mass ratioOrdered By: Bobby Bernabe on 02-06-2023 Albumin/Globulin [Mass ratio] 1.2 {ratio} [facility] Serum or plasma anion gap de terminationOrdered By: Bobby Bernabe on 02-06-2023 Anion gap [Moles/Vol] 9.3 mmol/L 6.0-15.0 [facility] Sodium [Moles/volume] in Ser um or PlasmaOrdered By: Bobby Bernabe on 02-06-2023 Sodium [Moles/Vol] 137 mmol/L 136-145 [facility] Thyroid Stimulating Hormoneo n 02-06-2023 TSH Qn 4.68 m[IU]/L Normal 0.45-5.[address] [facility] Comment on above: Result Comment: PERF ORMED BY:[facility] [place], [place] [phone] MEDICAL DIRECTORAPRIL VEGA M.D. Performed By: #### P TT, TSH3, PT, MG, CK, AMM, BNP, CMP, HS TROP ####[facility] [place] [address] [facility] Thyrotropin [Units/volume] i n Serum or PlasmaOrdered By: Bobby Bernabe on 02-06-2023 TSH Qn 4.68 m[IU]/L 0.45-5.[address] [facility] Troponin I High Sensitivityo n 02-06-2023 Troponin I High Sensitivity 12.8 pg/mL Normal 0.0-20.[address] [facility] Comment on above: Result Comment: PERF ORMED BY:[address] [place], [place] [phone] MEDICAL DIRECTORAPRIL VEGA M.D. Performed By: #### P TT, TSH3, PT, MG, CK, AMM, BNP, CMP, HS TROP ####[address] [address] [facility] Troponin I.cardiac [Mass/vol ume] in Serum or Plasma by Detection limit <= 0.01 ng/Ordered By: Bobby Bernabe on 02-06-2023 Troponin I.cardiac DL <= 0.01 ng/mL [Mass/Vol] 12.8 pg/mL 0.0-20.[address] [facility] Urea nitrogen [Mass/volume] in Serum or PlasmaOrdered By: Bobby Bernabe on 02-06-2023 Urea nitrogen [Mass/Vol] 29 mg/dL [address] [facility] Urinalysison 02-06-2023 Appearance (U) Clear Normal Clear [facility] Comment on above: Order Comment: Name Collection Type:: Clean-Voided Midstream Performed By: #### U A ####[address] [address] [facility] Bilirubin,Urine Negative Normal Negative [facility] Comment on above: Order Comment: Name Collection Type:: Clean-Voided Midstream Performed By: #### U A ####[address] [address] [facility] Color (U) Colorless Normal Yellow [facility] Comment on above: Order Comment: Name Collection Type:: Clean-Voided Midstream Performed By: #### U A ####[address] [address] [facility] Glucose Ql (U) Normal Normal Normal [facility] Comment on above: Order Comment: Name Collection Type:: Clean-Voided Midstream Performed By: #### U A ####[address] [address] [facility] Ketones Ql (U) Negative Normal Negative [facility] Comment on above: Order Comment: Name Collection Type:: Clean-Voided Midstream Performed By: #### U A ####[address] [address] [facility] Leukocyte esterase Test strip Ql (U) Negative Normal Negative [facility] Comment on above: Order Comment: Name Collection Type:: Clean-Voided Midstream Performed By: #### U A ####[address] [address] [facility] Nitrite,Urine Negative Normal Negative [facility] Comment on above: Order Comment: Name Collection Type:: Clean-Voided Midstream Performed By: #### U A ####[address] [address] [facility] Occult Blood,Urine Negative Normal Negative [facility] Comment on above: Order Comment: Name Collection Type:: Clean-Voided Midstream Result Comment: PERF ORMED BY:[address] [place], [place] [id number] MEDICAL JORGE VEGA M.D. Performed By: #### U A ####[address] [address] [facility] pH (U) 5.5 [pH] Normal 5.0-9.[address] [facility] Comment on above: Order Comment: Name Collection Type:: Clean-Voided Midstream Performed By: #### U A ####[address] [address] [facility] Protein,Urine Negative Normal Negative [facility] Comment on above: Order Comment: Name Collection Type:: Clean-Voided Midstream Performed By: #### U A ####[address] [address] [facility] Specificy [place],Urine 1.010 Normal 1.001-1.[address] [facility] Comment on above: Order Comment: Name Collection Type:: Clean-Voided Midstream Performed By: #### U A ####[facility] [address] [place] [id number] [facility] Urobilinogen,Urine Normal Normal Normal [facility] Comment on above: Order Comment: Name Collection Type:: Clean-Voided Midstream Performed By: #### U A ####[facility] [address] [place] [id number] [facility] Urine appearanceOrdered By: Bobby eBrnabe on 02-06-2023 Appearance (U) Clear Clear [facility] Urine colorOrdered By: Suly Bernabe on 02-06-2023 Color (U) Colorless Yellow [facility] Urine glucose measurement by automated test strip (mass/volume)Ordered By: Bobby Bernabe on 02-06-2023 Glucose Auto test strip (U) [Mass/Vol] Normal mg/dL Normal [facility] Urine hemoglobin detection b y automated test stripOrdered By: Bobby Bernabe on 02-06-2023 Hemoglobin Auto test strip Ql (U) Negative Negative [facility] Urine leukocyte esterase det ection by automated test stripOrdered By: Bobby Bernabe on 02-06-2023 Leukocyte esterase Auto test strip Ql (U) Negative Negative [facility] Urine nitrite detection by a utomated test stripOrdered By: Bobby Bernabe on 02-06-2023 Nitrite Auto test strip Ql (U) Negative Negative [facility] Urobilinogen Auto test strip (U) [Mass/Vol]Ordered By: Bobby Bernabe on 02-06-2023 Urobilinogen (U) [Mass/Vol] Normal mg/dL Normal [facility] Venous Blood Gason 3 CO2 [Moles/Vol] 25.5 mmol/L Normal 24.0-29.0 [facility] Comment on above: Performed By: #### V BG ####Point of Care testing, HCO3 (Bld) [Moles/Vol] 24.0 mmol/L Normal 23.0-29.[address] [facility] Comment on above: Performed By: #### V BG ####Point of Care testing, Respiratory Critical Normal [facility] Comment on above: Result Comment: Crit ical Value called on: 02/06/2023 at 13:24PERFORMED BY:[facility] [place], [place] [id number] MEDICAL DIRECTORAPRIL VEGA M.D. Performed By: #### V BG ####Point of Care testing, VBG Base Excess -2.8 mmol/L Normal -3.0-3.0 [facility] Comment on above: Performed By: #### V BG ####Point of Care testing, VBG Draw Site Venous Normal [facility] Comment on above: Performed By: #### V BG ####Point of Care testing, VBG Frac Inspired O2 Normal [facility] Comment on above: Performed By: #### V BG ####Point of Care testing, VBG O2 Content 4.4 mmol/L Low 6.6-9.[address] [facility] Comment on above: Performed By: #### V BG ####Point of Care testing, VBG Oxygen Saturation 51.4 % Off scale low 73.0-76.[address] [facility] Comment on above: Performed By: #### V BG ####Point of Care testing, VBG PCO2 49.0 mm[Hg] Normal 38.0-50.[address] [facility] Comment on above: Performed By: #### V BG ####Point of Care testing, VBG PH Venous PH 7.31 Low 7.32-7.43 [facility] Comment on above: Performed By: #### V BG ####Point of Care testing, VBG PO2 28.8 mm[Hg] Low 35.0-45.[address] [facility] Comment on above: Performed By: #### V BG ####Point of Care testing, WBC Auto (Bld) [#/Vol]Ordere d By: Bobby Bernabe on 02-06-2023 WBC (Bld) [#/Vol] 5.6 10*3/uL 4.1-10.5 [facility] XR chest 2V*on 02-06-2023 XR chest 2V* Normal [facility] pH Auto test strip (U)Ordere d By: Bobby Bernabe on 02-06-2023 pH (U) 1.010 [pH] 1.001-1.[address] [facility] pH (U) 5.5 [pH] 5.0-9.[address] [facility] NM bone 3 phaseon 01-28-2023 NM bone [address] [facility] FL esophaguson 01-14-2023 FL esophagus Normal [facility] Basic Metabolic Panelon Anion gap [Moles/Vol] 12.3 mmol/L Normal 6.0-15.0 [facility] Comment on above: Performed By: #### B MP ####[address] [address] [facility] Calcium [Mass/Vol] 12.0 mg/dL High 8.6-10.3 [facility] Comment on above: Result Comment: PERF ORMED BY:[address] [place], [place] [id number] MEDICAL DIRECTORAPRIL VEGA M.D. Performed By: #### B MP ####[address] [address] [facility] Chloride [Moles/Vol] 99 mmol/L Normal 98-107 [facility] Comment on above: Performed By: #### B MP ####[address] [address] [facility] CO2 [Moles/Vol] 33.7 mmol/L High 21.0-31.0 [facility] Comment on above: Performed By: #### B MP ####[address] [address] [facility] Creatinine [Mass/Vol] 1.32 mg/dL High 0.70-1.30 [facility] Comment on above: Performed By: #### B MP ####[address] [address] [facility] GFR/1.73 sq M.predicted MDRD (S/P/Bld) [Vol rate/Area] 59.858 mL/min/{1.73_m2} Normal [facility] Comment on above: Performed By: #### B MP ####[address] Glucose [Mass/Vol] 108 mg/dL High 70-100 [facility] Comment on above: Result Comment: [facility] Glucose Reference Range is dependent on time and content of last meal. Glucose of more than 200 mg/dL in a nonstressed, ambulatory subject supports the diagnosis of Diabetes Mellitus. ADA recommended reference range Performed By: #### B MP ####[place] [id number] [address] Potassium [Moles/Vol] 4.0 mmol/L Normal 3.5-5.1 [facility] Comment on above: Performed By: #### B MP ####[address] Sodium [Moles/Vol] 141 mmol/L Normal 136-145 [facility] Comment on above: Performed By: #### B MP ####[place] [id number] [facility] Urea nitrogen [Mass/Vol] 32 mg/dL High 7-[address] [facility] Comment on above: Performed By: #### B MP ####[address] Calcium [Mass/volume] in Ser um or PlasmaOrdered By: Stephanie Burgess on 12-19-2022 Calcium [Mass/Vol] 12.0 mg/dL 8.6-10.3 [facility] Carbon dioxide, total [Moles /volume] in Serum or PlasmaOrdered By: Stephanie Burgess on 12-19-2022 CO2 [Moles/Vol] 33.7 mmol/L 21.0-31.0 [facility] Chloride [Moles/volume] in S elmira or PlasmaOrdered By: Stephanie Burgess on 12-19-2022 Chloride [Moles/Vol] 99 mmol/L 98-107 [facility] Creatinine [Mass/volume] in Serum or PlasmaOrdered By: Stephanie Burgess on 12-19-2022 Creatinine [Mass/Vol] 1.32 mg/dL 0.70-1.30 [facility] Glucose [Mass/volume] in Ser um or PlasmaOrdered By: Stephanie Burgess on 12-19-2022 Glucose [Mass/Vol] 108 mg/dL 70-100 [facility] Comment on above: ADA recommended refe rence rangeRandom Glucose Reference Range is dependent on time and content of last meal. Glucose of more than 200 mg/dL in a nonstressed, ambulatory subject supports the diagnosis of Diabetes Mellitus. No Panel InformationOrdered By: Stephanie Burgess on 12-19-2022 Estimated GFR (CKD-EPI) 59.858 mL/Min [facility] Creatinine Clearance (Chem N/A [facility] Potassium [Moles/volume] in Serum or PlasmaOrdered By: Stephanie Burgess on 12-19-2022 Potassium [Moles/Vol] 4.0 mmol/L 3.5-5.1 [facility] Serum or plasma anion gap de terminationOrdered By: Stephanie Burgess on 12-19-2022 Anion gap [Moles/Vol] 12.3 mmol/L 6.0-15.0 [facility] Sodium [Moles/volume] in Ser um or PlasmaOrdered By: Stephanie Burgess on 12-19-2022 Sodium [Moles/Vol] 141 mmol/L 136-145 [facility] Urea nitrogen [Mass/volume] in Serum or PlasmaOrdered By: Stephanie Burgess on 12-19-2022 Urea nitrogen [Mass/Vol] 32 mg/dL 7-[address] 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 lr Dictated: 12/06/2022 [id number] Transcribed: 12/06/2022 [facility] Comment on above: Result Comment: Elec tronically Signed By: Jerri NUÑEZ, Sindi Bassett\.br\Date and Time Signed: 12/13/22 09:35 EDT Discharge Instructionson Discharge Instructions [id number]#1.00CD:127 [facility] IntraOperative Documentson 0 12-07-2022 IntraOperative Documents [id number]#1.00CD:127 [facility] IntraOperative Documents [id number]#1.00CD:127 [facility] Preoperative Documentson Preoperative Documents [id number]#1.00CD:127 [facility] Prescriptions/Work Noteson 0 12-07-2022 Prescriptions/Work Notes [id number]#1.00CD:127 Normal [facility] Consent for Treatmenton 11-17 Consent for Treatment [id number]#1.00CD:127 Normal [facility] Discharge Instructionson Discharge Instructions ADENIKE POTTER :1955 [...] these instructions at home: Medicines ? Take aahz-ghf-mqkliil and prescription medicines only as told by [...] keep your urine pale yellow. ? Take khoq-hge-ifbqkib or prescription medicines. Incision care ? Follow instructions from your health care provider about how to take care of your incisions. Make sure you: ? Wash your hands with soap and water for at least 20 seconds before and after you change your bandage (dressing). If soap and water are not available, use hand s (more content not included)... Normal [facility] Comment on above: Result Comment: Elec tronically Signed By: Mikhail SAHU, Halie Purvis\.br\Date and Time Signed: 12/06/22 11:25 EDT H&P Updateon 12-06-2022 H&P Update [id number]#1.00CD:127 Normal [facility] Inpatient Patient Summaryon 12-06-2022 Inpatient Patient Summary [place] [id number] [facility] Clinical Discharge Instructions PERSON INFORMATION Name: ADENIKE POTTER [facility]#:[id number] PHYSICIANS Admitting Physician: Sindi Foster MD Attending Physician: Sindi Foster MD PCP: TERI ARAGON DO Discharge Diagnosis: Tongue lesion Comment: PATIENT EDUCATION INFORMATION Instructions: Medication Leaflets: Follow up: With: Address: Aren: Sindi Foster 12/06/2022 12:00 AM Comments: As [...] Mouth 3 times a day. Comment: Normal [facility] Main OR Intraoperative Recor don 12-06-2022 Main OR Intraoperative Record IntraOp Document Type FT Summary Primary Physician: Sindi Foster MD Finalized Date/Time: 12/06/22 21:09:50 Pt. Name: ADENIKE POTTER/Sex: 1955 Male Med Rec #: [id number] Physician: Sindi Foster MD Financial #: [id number] Pt. Type: A Room/Bed: [facility] Admit/Disch: 12/06/22 08:56:06 - 12/06/22 11:35:00 Institution: [...] Clarence Jean Role Performed Surgeon - Primary FUR DRUMMER/SA Composing Room Machinist Apprentice - Primary Time In 12/06/22 10:32:00 12/06/22 [...] (If Applicable) PreOp Antibiotic No Time Out Jerri NUÑEZ, Sindi Bassett, Given Participants Kavon RENO, Davis Moncada Terry [...] Outcomes Met? Yes Last Modified By: Quita Gomez CST 12/06/22 21:08:22 Post-Care Text: The patient [...] 12/06/22 11:00 (more content not included)... Normal [facility] Main OR PACU II Recordon Main OR PACU II Record PACU Phase II Document Type FT Summary Primary Physician: Sindi Foster MD Finalized Date/Time: 12/06/22 11:46:46 Pt. Name: ADENIKE POTTER./Sex: 1955 Male Med Rec #: [id number] Physician: Sindi Foster MD Financial #: [id number] Pt. Type: A Room/Bed: [place] [address] Admit/Disch: 12/06/22 08:56:06 - Institution: Case Times [...] By: Halie Elizondo RN 12/06/22 11:46 Normal [facility] Main OR Preoperative Recordo n 12-06-2022 Main OR Preoperative Record PreOp Document Type FT Summary Primary Physician: Sindi Foster MD Finalized Date/Time: 12/06/22 10:48:18 Pt. Name: ADENIKE POTTER/Sex: 1955 Male Med Rec #: [id number] Physician: Sindi Foster MD Financial #: [id number] Pt. Type: A Room/Bed: [place] [address] Admit/Disch: 12/06/22 08:56:06 - Institution: Case Times [...] 12/06/22 10:48 Clarence Cannon 12/06/22 10:48 Normal [facility] Outpatient Surgery Discharge Instructionon 12-06-2022 Outpatient Surgery Discharge Instruction [place] [id number] Patient Discharge Instructions PERSON INFORMATION Name: ADENIKE [...] NEAREST EMERGENCY ROOM OR CALL 911 I, TARIQ ADENIKE, have received the attached patient education materials/instructions and have verbalized understanding: May we do a follow up call? Yes No I was present when discharge instructions were given ____ Patient Signature _ Date Clinican/Nurse Signature Date Follow up: With: Address: When: Sindi Jerri 12/06/2022 12:00 AM Comments: As scheduled Pharmacy Information: Other: [facility] You may receive a survey from [employer] asking you to rate your care experience. Your feedback is important and will help us understand what we do well and how we can improve the quality of care we provide to you, your loved ones and our community. It?s an honor to serve you. Thank you for choosing [facility] HERE ARE THE MEDICATION CHANGES THAT OCCURRED [...] day. PATIENT EDUCATION INFORMATION Instructions: Medication Leaflets: [facility] Patient Education - Texton 0 12-06-2022 Patient [...] these instructions at home: Medicines ? Take kdqa-iqj-hnoocyk and prescription medicines only as told by [...] keep your urine pale yellow. ? Take metu-inl-nawbupd or prescription medicines. Incision care ? Follow instructions from your health care provider about how to take care of your incisions. Make sure you: ? Wash your hands with soap and water for at least 20 seconds before and after you change your bandage (dressing). If soap and water are not available, use hand cnc operator. ? Change your dressing as told by [...] from you (more content not included)... Normal [facility] Alanine aminotransferase [En zymatic activity/volume] in Serum or PlasmaOrdered By: Vivian Del Rosario on 11-26-2022 ALT [Catalytic activity/Vol] 18 U/L 7-[address] [facility] Albumin [Mass/volume] in Ser um or Plasma by Bromocresol green (BCG) dye binding methoOrdered By: Vivian Del Rosario on 11-26-2022 Albumin BCG dye [Mass/Vol] 4.1 g/dL 3.5-5.[address] [facility] Alkaline phosphatase [Enzyma tic activity/volume] in Serum or PlasmaOrdered By: Vivian Del Rosario on 11-26-2022 ALP [Catalytic activity/Vol] 104 U/L 34-[address] [facility] Aspartate aminotransferase [ Enzymatic activity/volume] in Serum or PlasmaOrdered By: Vivian Del Rosario on 11-26-2022 AST [Catalytic activity/Vol] 24 U/L 13-[address] [facility] Basophils Auto (Bld) [#/Vol] Ordered By: Vivian Del Rosario on 11-26-2022 Basophils (Bld) [#/Vol] 0.0 10*3/uL 0.0-0.[address] [facility] Basophils/100 WBC Auto (Bld) Ordered By: Vivian Del Rosario on 11-26-2022 Basophils/100 WBC (Bld) 0.7 % . [facility] Bilirubin.total [Mass/volume ] in Serum or PlasmaOrdered By: Vivian Del Rosario on 11-26-2022 Bilirubin [Mass/Vol] 0.8 mg/dL 0.3-1.0 [facility] Calcium [Mass/volume] in Ser um or PlasmaOrdered By: Vivian Del Rosario on 11-26-2022 Calcium [Mass/Vol] 10.7 mg/dL 8.6-10.3 [facility] Carbon dioxide, total [Moles /volume] in Serum or PlasmaOrdered By: Vivian Choulazarus on 11-26-2022 CO2 [Moles/Vol] 32.4 mmol/L 21.0-31.0 [facility] Chloride [Moles/volume] in S elmira or PlasmaOrdered By: Vivian Choulazarus on 11-26-2022 Chloride [Moles/Vol] 102 mmol/L 98-107 [facility] Complete Blood Count Auto Di ffon 11-26-2022 Basophils (Bld) [#/Vol] 0.0 10*3/uL Normal 0.0-0.[address] [facility] Comment on above: Result Comment: PERF ORMED BY:[address] [place], [place] [phone] MEDICAL DIRECTORAPRIL VEGA M.D. Performed By: #### C BC, LDH, CMP ####[place] [id number] [facility] Basophils/100 WBC (Bld) 0.7 % Normal . [facility] Comment on above: Performed By: #### C BC, LDH, CMP ####[address] [address] [facility] Eosinophils (Bld) [#/Vol] 0.3 10*3/uL Normal 0.0-0.[address] [facility] Comment on above: Performed By: #### C BC, LDH, CMP ####[place] [id number] [facility] Eosinophils/100 WBC (Bld) 4.3 % Normal . [facility] Comment on above: Performed By: #### C BC, LDH, CMP ####[place] [id number] [facility] Erythrocyte distribution width (RBC) [Ratio] 14.9 % High 12.0-14.[address] [facility] Comment on above: Performed By: #### C BC, LDH, CMP ####[place] [id number] [facility] Hematocrit (Bld) [Volume fraction] 39.8 % Normal 38.8-50.[address] [facility] Comment on above: Performed By: #### C BC, LDH, CMP ####[address] Hemoglobin (Bld) [Mass/Vol] 13.0 g/dL Normal 13.0-17.[address] [facility] Comment on above: Performed By: #### C BC, LDH, CMP ####[address] Lymphocytes (Bld) [#/Vol] 1.0 10*3/uL Normal 1.00-4.[address] [facility] Comment on above: Performed By: #### C BC, LDH, CMP ####[address] Lymphocytes/100 WBC (Bld) 13.3 % Normal . [facility] Comment on above: Performed By: #### C BC, LDH, CMP ####[address] MCH (RBC) [Entitic mass] 27.9 pg Normal 27.5-35.[address] [facility] Comment on above: Performed By: #### C BC, LDH, CMP ####[address] MCV (RBC) [Entitic vol] 85.5 fL Normal 83.5-[address] [facility] Comment on above: Performed By: #### C BC, LDH, CMP ####[address] Mean Corpuscular HGB Conc 32.6 g/dL Normal 32.5-35.[address] [facility] Comment on above: Performed By: #### C BC, LDH, CMP ####[address] Monocytes (Bld) [#/Vol] 0.9 10*3/uL High 0.0-0.[address] [facility] Comment on above: Performed By: #### C BC, LDH, CMP ####[address] Monocytes/100 WBC (Bld) 12.5 % Normal . [facility] Comment on above: Performed By: #### C BC, LDH, CMP ####[address] Neutrophils (Bld) [#/Vol] 5.1 10*3/uL Normal 1.8-7.[address] [facility] Comment on above: Performed By: #### C BC, LDH, CMP ####[address] Neutrophils/100 WBC (Bld) 69.2 % Normal . [facility] Comment on above: Performed By: #### C BC, LDH, CMP ####[address] NRBC% 0.1 /100{WBC} Normal 0-0.[address] [facility] Comment on above: Performed By: #### C BC, LDH, CMP ####[address] Platelet mean volume (Bld) [Entitic vol] 7.5 fL Normal 6.6-10.[address] [facility] Comment on above: Performed By: #### C BC, LDH, CMP ####[address] Platelets (Bld) [#/Vol] 213 10*3/uL Normal 150-[address] [facility] Comment on above: Performed By: #### C BC, LDH, CMP ####[address] RBC (Bld) [#/Vol] 4.66 10*6/uL Normal 3.90-5.60 [facility] Comment on above: Performed By: #### C BC, LDH, CMP ####[address] WBC (Bld) [#/Vol] 7.4 10*3/uL Normal 4.1-10.5 [facility] Comment on above: Performed By: #### C BC, LDH, CMP ####[facility] [place] [address] [facility] Comprehensive Metabolic Pane anny 11-26-2022 Albumin [Mass/Vol] 4.1 g/dL Normal 3.5-5.7 [facility] Comment on above: Performed By: #### C BC, LDH, CMP ####[place] [address] [place] [address] [facility] Albumin/Globulin [Mass ratio] 1.8 {ratio} Normal [facility] Comment on above: Performed By: #### C BC, LDH, CMP ####[place] [address] [place] [address] [facility] ALP [Catalytic activity/Vol] 104 U/L Normal 34-[address] [facility] Comment on above: Performed By: #### C BC, LDH, CMP ####[place] [address] [place] [address] [facility] ALT [Catalytic activity/Vol] 18 U/L Normal 7-[address] [facility] Comment on above: Performed By: #### C BC, LDH, CMP ####[place] [address] [place] [address] [facility] Anion gap [Moles/Vol] 10.2 mmol/L Normal 6.0-15.0 [facility] Comment on above: Performed By: #### C BC, LDH, CMP ####[address] [address] [facility] AST [Catalytic activity/Vol] 24 U/L Normal 13-[address] [facility] Comment on above: Performed By: #### C BC, LDH, CMP ####[address] [address] [facility] Bilirubin [Mass/Vol] 0.8 mg/dL Normal 0.3-1.0 [facility] Comment on above: Performed By: #### C BC, LDH, CMP ####[place] [address] [place] [address] [facility] Calcium [Mass/Vol] 10.7 mg/dL High 8.6-10.3 [facility] Comment on above: Performed By: #### C BC, LDH, CMP ####[place] [address] [place] [id number] [facility] Chloride [Moles/Vol] 102 mmol/L Normal 98-107 [facility] Comment on above: Performed By: #### C BC, LDH, CMP ####[place] [id number] [facility] CO2 [Moles/Vol] 32.4 mmol/L High 21.0-31.0 [facility] Comment on above: Performed By: #### C BC, LDH, CMP ####[place] [id number] [facility] Creatinine [Mass/Vol] 1.35 mg/dL High 0.70-1.30 [facility] Comment on above: Performed By: #### C BC, LDH, CMP ####[address] GFR/1.73 sq M.predicted MDRD (S/P/Bld) [Vol rate/Area] 58.266 mL/min/{1.73_m2} Normal [facility] Comment on above: Performed By: #### C BC, LDH, CMP ####[place] [id number] [facility] Globulin (S) [Mass/Vol] 2.3 g/dL [facility] Comment on above: Performed By: #### C BC, LDH, CMP ####[place] [id number] [facility] Glucose [Mass/Vol] 123 mg/dL High 70-100 [facility] Comment on above: Result Comment: Tutor Key om Glucose Reference Range is dependent on time and content of last meal. Glucose of more than 200 mg/dL in a nonstressed, ambulatory subject supports the diagnosis of Diabetes Mellitus. ADA recommended reference range Performed By: #### C BC, LDH, CMP ####[place] [id number] [facility] Potassium [Moles/Vol] 4.6 mmol/L Normal 3.5-5.1 [facility] Comment on above: Performed By: #### C BC, LDH, CMP ####[facility] [address] [place] [address] [facility] Protein [Mass/Vol] 6.4 g/dL Normal 6.4-8.9 [facility] Comment on above: Performed By: #### C BC, LDH, CMP ####[facility] [address] [place] [address] [facility] Sodium [Moles/Vol] 140 mmol/L Normal 136-145 [facility] Comment on above: Performed By: #### C BC, LDH, CMP ####[facility] [address] [place] [address] [facility] Urea nitrogen [Mass/Vol] 25 mg/dL Normal 7-[address] [facility] Comment on above: Performed By: #### C BC, LDH, CMP ####[facility] [address] [place] [address] [facility] Creatinine [Mass/volume] in Serum or PlasmaOrdered By: Vivian Del Rosario on 11-26-2022 Creatinine [Mass/Vol] 1.35 mg/dL 0.70-1.30 [facility] Eosinophils Auto (Bld) [#/Vo l]Ordered By: Vivian Del Rosario on 11-26-2022 Eosinophils (Bld) [#/Vol] 0.3 10*3/uL 0.0-0.[address] [facility] Eosinophils/100 WBC Auto (Bl d)Ordered By: Vivian Del Rosario on 11-26-2022 Eosinophils/100 WBC (Bld) 4.3 % . [facility] Erythrocyte distribution wid th Auto (RBC) [Ratio]Ordered By: Vivian Del Rosario on 11-26-2022 Erythrocyte distribution width (RBC) [Ratio] 14.9 % 12.0-14.[address] [facility] Globulin Calc (S) [Mass/Vol] Ordered By: Vivian Del Rosario on 11-26-2022 Globulin (S) [Mass/Vol] 2.3 g/dL [facility] Glucose [Mass/volume] in Ser um or PlasmaOrdered By: Vivian Del Rosario on 11-26-2022 Glucose [Mass/Vol] 123 mg/dL 70-100 [facility] Comment on above: ADA recommended refe rence rangeRandom Glucose Reference Range is dependent on time and content of last meal. Glucose of more than 200 mg/dL in a nonstressed, ambulatory subject supports the diagnosis of Diabetes Mellitus. Hematocrit Auto (Bld) [Volum e fraction]Ordered By: Vivian Del Rosario on 11-26-2022 Hematocrit (Bld) [Volume fraction] 39.8 % 38.8-50.[address] [facility] Hemoglobin [Mass/volume] in BloodOrdered By: Vivian Del Rosario on 11-26-2022 Hemoglobin (Bld) [Mass/Vol] 13.0 g/dL 13.0-17.[address] [facility] LDH Lactate Dehydrogenaseon 11-26-2022 LDH Lactate Dehydrogenase 239 U/L Normal 140-[address] [facility] Comment on above: Result Comment: PERF ORMED BY:[facility] [place] [address] [place], [place] [phone] MEDICAL DIRECTORAPRIL VEGA M.D. Performed By: #### C BC, LDH, CMP ####[facility] [place] [address] [facility] Lactate dehydrogenase [Enzym atic activity/volume] in Serum or Plasma by Lactate to pyOrdered By: Vivian Del Rosario on 11-26-2022 LDH Lactate to pyruvate reaction [Catalytic activity/Vol] 239 U/L 140-[address] [facility] Leukocytes [#/volume] correc martin for nucleated erythrocytes in Blood by Automated counOrdered By: Vivian Del Rosario on 11-26-2022 WBC corrected for nucl RBC Auto (Bld) [#/Vol] 7.4 10*3/uL 4.1-10.[address] [facility] Lymphocytes Auto (Bld) [#/Vo l]Ordered By: Vivian Del Rosario on 11-26-2022 Lymphocytes (Bld) [#/Vol] 1.0 10*3/uL 1.00-4.[address] [facility] Lymphocytes/100 WBC Auto (Bl d)Ordered By: Vivian Del Rosario on 11-26-2022 Lymphocytes/100 WBC (Bld) 13.3 % . [facility] MCH Auto (RBC) [Entitic mass ]Ordered By: Vivian Del Rosario on 11-26-2022 MCH (RBC) [Entitic mass] 27.9 pg 27.5-35.[address] [facility] MCHC Auto (RBC) [Mass/Vol]Or dered By: Vivian Del Rosario on 11-26-2022 MCHC (RBC) [Mass/Vol] 32.6 g/dL 32.5-35.6 [facility] MCV Auto (RBC) [Entitic vol] Ordered By: Vivian Del Rosario on 11-26-2022 MCV (RBC) [Entitic vol] 85.5 fL 83.5-[address] [facility] Monocytes Auto (Bld) [#/Vol] Ordered By: Vivian Del Rosario on 11-26-2022 Monocytes (Bld) [#/Vol] 0.9 10*3/uL 0.0-0.[address] [facility] Monocytes/100 WBC Auto (Bld) Ordered By: Vivian Del Rosario on 11-26-2022 Monocytes/100 WBC (Bld) 12.5 % . [facility] Neutrophils Auto (Bld) [#/Vo l]Ordered By: Vivian Del Rosario on 11-26-2022 Neutrophils (Bld) [#/Vol] 5.1 10*3/uL 1.8-7.[address] [facility] Neutrophils/100 WBC Auto (Bl d)Ordered By: Vivian Del Rosario on 11-26-2022 Neutrophils/100 WBC (Bld) 69.2 % . [facility] No Panel InformationOrdered By: Vivian Del Rosario on 11-26-2022 Estimated GFR (CKD-EPI) 58.266 mL/Min [facility] Creatinine Clearance (Chem N/A [facility] Nucleated erythrocytes [Pres ence] in Blood by Automated countOrdered By: Vivian Del Rosario on 11-26-2022 Nucleated RBC Auto Ql (Bld) 0.1 /100{WBC} 0-0.[address] [facility] Platelet mean volume Auto (B ld) [Entitic vol]Ordered By: Vivian Del Rosario on 11-26-2022 Platelet mean volume (Bld) [Entitic vol] 7.5 fL 6.6-10.[address] [facility] Platelets Auto (Bld) [#/Vol] Ordered By: Vivian Del Rosario on 11-26-2022 Platelets (Bld) [#/Vol] 213 10*3/uL 150-[address] [facility] Potassium [Moles/volume] in Serum or PlasmaOrdered By: Vivian Del Rosario on 11-26-2022 Potassium [Moles/Vol] 4.6 mmol/L 3.5-5.1 [facility] Protein [Mass/volume] in Ser um or PlasmaOrdered By: Vivian Del Rosario on 11-26-2022 Protein [Mass/Vol] 6.4 g/dL 6.4-8.9 [facility] RBC Auto (Bld) [#/Vol]Ordere d By: Vivian Del Rosario on 11-26-2022 RBC (Bld) [#/Vol] 4.66 10*6/uL 3.90-5.60 [facility] Serum or plasma albumin/glob ulin mass ratioOrdered By: Vivian Del Rosario on 11-26-2022 Albumin/Globulin [Mass ratio] 1.8 {ratio} [facility] Serum or plasma anion gap de terminationOrdered By: Vivian Del Rosario on 11-26-2022 Anion gap [Moles/Vol] 10.2 mmol/L 6.0-15.0 [facility] Sodium [Moles/volume] in Ser um or PlasmaOrdered By: Vivian Del Rosario on 11-26-2022 Sodium [Moles/Vol] 140 mmol/L 136-145 [facility] Urea nitrogen [Mass/volume] in Serum or PlasmaOrdered By: Vivian Del Rosario on 11-26-2022 Urea nitrogen [Mass/Vol] 25 mg/dL 7-[address] [facility] WBC Auto (Bld) [#/Vol]Ordere d By: Vivian Del Rosario on 11-26-2022 WBC (Bld) [#/Vol] 7.4 10*3/uL 4.1-10.5 [facility] Consent for Procedure/Surger yon 11-15-2022 Consent for Procedure/Surgery [id number] Normal [facility] Alanine aminotransferase [En zymatic activity/volume] in Serum or PlasmaOrdered By: Teri Ybarra on 11-12-2022 ALT [Catalytic activity/Vol] 17 U/L 7-[address] [facility] Albumin [Mass/volume] in Ser um or Plasma by Bromocresol green (BCG) dye binding methoOrdered By: Teri Ybarra on 11-12-2022 Albumin BCG dye [Mass/Vol] 4.1 g/dL 3.5-5.[address] [facility] Alkaline phosphatase [Enzyma tic activity/volume] in Serum or PlasmaOrdered By: Teri Ybarra on 11-12-2022 ALP [Catalytic activity/Vol] 104 U/L 34-[address] [facility] Aspartate aminotransferase [ Enzymatic activity/volume] in Serum or PlasmaOrdered By: Teri Ybarra on 11-12-2022 AST [Catalytic activity/Vol] 24 U/L 13-[address] [facility] Basophils Auto (Bld) [#/Vol] Ordered By: Teri Ybarra on 11-12-2022 Basophils (Bld) [#/Vol] 0.0 10*3/uL 0.0-0.[address] [facility] Basophils/100 WBC Auto (Bld) Ordered By: Teri Ybarra on 11-12-2022 Basophils/100 WBC (Bld) 0.7 % . [facility] Bilirubin.total [Mass/volume ] in Serum or PlasmaOrdered By: Teri Ybarra on 11-12-2022 Bilirubin [Mass/Vol] 0.7 mg/dL 0.3-1.0 [facility] Calcium [Mass/volume] in Ser um or PlasmaOrdered By: Teri Ybarra on 11-12-2022 Calcium [Mass/Vol] 10.3 mg/dL 8.6-10.3 [facility] Carbon dioxide, total [Moles /volume] in Serum or PlasmaOrdered By: Teri Ybarra on 11-12-2022 CO2 [Moles/Vol] 31.9 mmol/L 21.0-31.0 [facility] Chloride [Moles/volume] in S elmira or PlasmaOrdered By: Teri Ybarra on 11-12-2022 Chloride [Moles/Vol] 105 mmol/L 98-107 [facility] Complete Blood Count Auto Di ffon 11-12-2022 Basophils (Bld) [#/Vol] 0.0 10*3/uL Normal 0.0-0.[address] [facility] Comment on above: Result Comment: PERF ORMED BY:[address] [place], [place] [phone] MEDICAL DIRECTORAPRIL VEGA M.D. Performed By: #### C BC URIC, CMP ####[address] [address] [facility] Basophils/100 WBC (Bld) 0.7 % Normal . [facility] Comment on above: Performed By: #### C BC URIC, CMP ####[place] [address] [place] [address] [facility] Eosinophils (Bld) [#/Vol] 0.4 10*3/uL Normal 0.0-0.[address] [facility] Comment on above: Performed By: #### C BC URIC, CMP ####[place] [id number] [facility] Eosinophils/100 WBC (Bld) 6.9 % Normal . [facility] Comment on above: Performed By: #### C BC URIC, CMP ####[address] [address] [facility] Erythrocyte distribution width (RBC) [Ratio] 15.0 % High 12.0-14.[address] [facility] Comment on above: Performed By: #### C BC URIC, CMP ####[address] [address] [facility] Hematocrit (Bld) [Volume fraction] 36.8 % Low 38.8-50.[address] [facility] Comment on above: Performed By: #### C BC URIC, CMP ####[place] [id number] [facility] Hemoglobin (Bld) [Mass/Vol] 12.0 g/dL Low 13.0-17.[address] [facility] Comment on above: Performed By: #### C BC URIC, CMP ####[address] Lymphocytes (Bld) [#/Vol] 0.7 10*3/uL Low 1.00-4.[address] [facility] Comment on above: Performed By: #### C BC, URIC, CMP ####[place] [id number] [facility] Lymphocytes/100 WBC (Bld) 12.7 % Normal . [facility] Comment on above: Performed By: #### C BC, URIC, CMP ####[place] [id number] [facility] MCH (RBC) [Entitic mass] 27.9 pg Normal 27.5-35.[address] [facility] Comment on above: Performed By: #### C BC, URIC, CMP ####[place] [id number] [facility] MCV (RBC) [Entitic vol] 85.4 fL Normal 83.5-[address] [facility] Comment on above: Performed By: #### C BC, URIC, CMP ####[address] Mean Corpuscular HGB Conc 32.7 g/dL Normal 32.5-35.[address] [facility] Comment on above: Performed By: #### C BC, URIC, CMP ####[place] [id number] [facility] Monocytes (Bld) [#/Vol] 0.7 10*3/uL Normal 0.0-0.[address] [facility] Comment on above: Performed By: #### C BC, URIC, CMP ####[place] [id number] [facility] Monocytes/100 WBC (Bld) 12.7 % Normal . [facility] Comment on above: Performed By: #### C BC, URIC, CMP ####[place] [id number] [facility] Neutrophils (Bld) [#/Vol] 3.9 10*3/uL Normal 1.8-7.[address] [facility] Comment on above: Performed By: #### C BC, URIC, CMP ####[place] [id number] [facility] Neutrophils/100 WBC (Bld) 67.0 % Normal . [facility] Comment on above: Performed By: #### C BC, URIC, CMP ####[address] [address] [facility] NRBC% 0.1 /100{WBC} Normal 0-0.[address] [facility] Comment on above: Performed By: #### C BC, URIC, CMP ####[address] [address] [facility] Platelet mean volume (Bld) [Entitic vol] 7.4 fL Normal 6.6-10.[address] [facility] Comment on above: Performed By: #### C BC, URIC, CMP ####[place] [id number] [facility] Platelets (Bld) [#/Vol] 189 10*3/uL Normal 150-[address] [facility] Comment on above: Performed By: #### C BC, URIC, CMP ####[place] [id number] [facility] RBC (Bld) [#/Vol] 4.30 10*6/uL Normal 3.90-5.60 [facility] Comment on above: Performed By: #### C BC, URIC, CMP ####[address] [address] [facility] WBC (Bld) [#/Vol] 5.9 10*3/uL Normal 4.1-10.5 [facility] Comment on above: Performed By: #### C BC, URIC, CMP ####[place] [id number] [facility] Comprehensive Metabolic Pane anny 11-12-2022 Albumin [Mass/Vol] 4.1 g/dL Normal 3.5-5.7 [facility] Comment on above: Performed By: #### C BC, URIC, CMP ####[place] [address] [place] [address] [facility] Albumin/Globulin [Mass ratio] 1.6 {ratio} Normal [facility] Comment on above: Performed By: #### C BC URIC, CMP ####[place] [address] [place] [address] [facility] ALP [Catalytic activity/Vol] 104 U/L Normal 34-[address] [facility] Comment on above: Performed By: #### C BC URIC, CMP ####[address] [address] [facility] ALT [Catalytic activity/Vol] 17 U/L Normal 7-[address] [facility] Comment on above: Performed By: #### C BC URIC, CMP ####[address] [address] [facility] Anion gap [Moles/Vol] 8.7 mmol/L Normal 6.0-15.0 [facility] Comment on above: Performed By: #### C BC URIC, CMP ####[address] [address] [facility] AST [Catalytic activity/Vol] 24 U/L Normal 13-[address] [facility] Comment on above: Performed By: #### C BC URIC, CMP ####[address] [address] [facility] Bilirubin [Mass/Vol] 0.7 mg/dL Normal 0.3-1.0 [facility] Comment on above: Performed By: #### C BC, URIC, CMP ####[address] [address] [facility] Calcium [Mass/Vol] 10.3 mg/dL Normal 8.6-10.3 [facility] Comment on above: Performed By: #### C BC, URIC, CMP ####[address] [address] [facility] Chloride [Moles/Vol] 105 mmol/L Normal 98-107 [facility] Comment on above: Performed By: #### C BC, URIC, CMP ####[place] [id number] [facility] CO2 [Moles/Vol] 31.9 mmol/L High 21.0-31.0 [facility] Comment on above: Performed By: #### C BC URIC, CMP ####[place] [address] [place] [id number] [facility] Creatinine [Mass/Vol] 1.34 mg/dL High 0.70-1.30 [facility] Comment on above: Performed By: #### C BC URIC, CMP ####[place] [address] [place] [id number] [place] GFR/1.73 sq M.predicted MDRD (S/P/Bld) [Vol rate/Area] 58.788 mL/min/{1.73_m2} Normal [facility] Comment on above: Performed By: #### C BC URIC, CMP ####[place] [id number] [facility] Globulin (S) [Mass/Vol] 2.6 g/dL Normal [facility] Comment on above: Performed By: #### C BC URIC, CMP ####[place] [id number] [facility] Glucose [Mass/Vol] 116 mg/dL High 70-100 [facility] Comment on above: Result Comment: Tutor Key Glucose Reference Range is dependent on time and content of last meal. Glucose of more than 200 mg/dL in a nonstressed, ambulatory subject supports the diagnosis of Diabetes Mellitus. ADA recommended reference range Performed By: #### C BC URIC, CMP ####[place] [id number] [facility] Potassium [Moles/Vol] 4.6 mmol/L Normal 3.5-5.1 [facility] Comment on above: Performed By: #### C BC URIC, CMP ####[place] [address] [place] [id number] [facility] Protein [Mass/Vol] 6.7 g/dL Normal 6.4-8.9 [facility] Comment on above: Performed By: #### C BC URIC, CMP ####[facility] [address] [place] [address] [facility] Sodium [Moles/Vol] 141 mmol/L Normal 136-145 [facility] Comment on above: Performed By: #### C BC, URIC, CMP ####[facility] [address] [place] [address] [facility] Urea nitrogen [Mass/Vol] 27 mg/dL High 7-[address] [facility] Comment on above: Performed By: #### C BC, URIC, CMP ####[facility] [address] [place] [address] [facility] Creatinine [Mass/volume] in Serum or PlasmaOrdered By: Teri Ybarra on 11-12-2022 Creatinine [Mass/Vol] 1.34 mg/dL 0.70-1.30 [facility] Eosinophils Auto (Bld) [#/Vo l]Ordered By: Teri Ybarra on 11-12-2022 Eosinophils (Bld) [#/Vol] 0.4 10*3/uL 0.0-0.[address] [facility] Eosinophils/100 WBC Auto (Bl d)Ordered By: Teri Ybarra on 11-12-2022 Eosinophils/100 WBC (Bld) 6.9 % . [facility] Erythrocyte distribution wid th Auto (RBC) [Ratio]Ordered By: Teri Ybarra on 11-12-2022 Erythrocyte distribution width (RBC) [Ratio] 15.0 % 12.0-14.[address] [facility] Globulin Calc (S) [Mass/Vol] Ordered By: Teri Ybarra on 11-12-2022 Globulin (S) [Mass/Vol] 2.6 g/dL [facility] Glucose [Mass/volume] in Ser um or PlasmaOrdered By: Teri Ybarra on 11-12-2022 Glucose [Mass/Vol] 116 mg/dL 70-100 [facility] Comment on above: ADA recommended refe rence rangeRandom Glucose Reference Range is dependent on time and content of last meal. Glucose of more than 200 mg/dL in a nonstressed, ambulatory subject supports the diagnosis of Diabetes Mellitus. Hematocrit Auto (Bld) [Volum e fraction]Ordered By: Teri Ybarra on 11-12-2022 Hematocrit (Bld) [Volume fraction] 36.8 % 38.8-50.[address] [facility] Hemoglobin [Mass/volume] in BloodOrdered By: Teri Ybarra on 11-12-2022 Hemoglobin (Bld) [Mass/Vol] 12.0 g/dL 13.0-17.[address] [facility] Leukocytes [#/volume] correc martin for nucleated erythrocytes in Blood by Automated counOrdered By: Teri Ybarra on 11-12-2022 WBC corrected for nucl RBC Auto (Bld) [#/Vol] 5.9 10*3/uL 4.1-10.[address] [facility] Lymphocytes Auto (Bld) [#/Vo l]Ordered By: Teri Ybarra on 11-12-2022 Lymphocytes (Bld) [#/Vol] 0.7 10*3/uL 1.00-4.[address] [facility] Lymphocytes/100 WBC Auto (Bl d)Ordered By: Teri Ybarra on 11-12-2022 Lymphocytes/100 WBC (Bld) 12.7 % . [facility] MCH Auto (RBC) [Entitic mass ]Ordered By: Teri Ybarra on 11-12-2022 MCH (RBC) [Entitic mass] 27.9 pg 27.5-35.[address] [facility] MCHC Auto (RBC) [Mass/Vol]Or dered By: Teri Ybarra on 11-12-2022 MCHC (RBC) [Mass/Vol] 32.7 g/dL 32.5-35.6 [facility] MCV Auto (RBC) [Entitic vol] Ordered By: Teri Ybarra on 11-12-2022 MCV (RBC) [Entitic vol] 85.4 fL 83.5-[address] [facility] Monocytes Auto (Bld) [#/Vol] Ordered By: Teri Ybarra on 11-12-2022 Monocytes (Bld) [#/Vol] 0.7 10*3/uL 0.0-0.[address] [facility] Monocytes/100 WBC Auto (Bld) Ordered By: Teri Ybarra on 11-12-2022 Monocytes/100 WBC (Bld) 12.7 % . [facility] Neutrophils Auto (Bld) [#/Vo l]Ordered By: Teri Ybarra on 11-12-2022 Neutrophils (Bld) [#/Vol] 3.9 10*3/uL 1.8-7.[address] [facility] Neutrophils/100 WBC Auto (Bl d)Ordered By: Teri Ybarra on 11-12-2022 Neutrophils/100 WBC (Bld) 67.0 % . [facility] No Panel InformationOrdered By: Teri Ybarra on 11-12-2022 Estimated GFR (CKD-EPI) 58.788 mL/Min [facility] Creatinine Clearance (Chem N/A [facility] Nucleated erythrocytes [Pres ence] in Blood by Automated countOrdered By: Teri Ybarra on 11-12-2022 Nucleated RBC Auto Ql (Bld) 0.1 /100{WBC} 0-0.[address] [facility] Platelet mean volume Auto (B ld) [Entitic vol]Ordered By: Teri Ybarra on 11-12-2022 Platelet mean volume (Bld) [Entitic vol] 7.4 fL 6.6-10.[address] [facility] Platelets Auto (Bld) [#/Vol] Ordered By: Teri Ybarra on 11-12-2022 Platelets (Bld) [#/Vol] 189 10*3/uL 150-[address] [facility] Potassium [Moles/volume] in Serum or PlasmaOrdered By: Teri Ybarra on 11-12-2022 Potassium [Moles/Vol] 4.6 mmol/L 3.5-5.1 [facility] Protein [Mass/volume] in Ser um or PlasmaOrdered By: Teri Ybarra on 11-12-2022 Protein [Mass/Vol] 6.7 g/dL 6.4-8.9 [facility] RBC Auto (Bld) [#/Vol]Ordere d By: Teri Ybarra on 11-12-2022 RBC (Bld) [#/Vol] 4.30 10*6/uL 3.90-5.60 [facility] Serum or plasma albumin/glob ulin mass ratioOrdered By: Teri Ybarra on 11-12-2022 Albumin/Globulin [Mass ratio] 1.6 {ratio} [facility] Serum or plasma anion gap de terminationOrdered By: Teri Ybarra on 11-12-2022 Anion gap [Moles/Vol] 8.7 mmol/L 6.0-15.0 [facility] Sodium [Moles/volume] in Ser um or PlasmaOrdered By: Teri Ybarra on 11-12-2022 Sodium [Moles/Vol] 141 mmol/L 136-145 [facility] Urate [Mass/volume] in Serum or PlasmaOrdered By: Teri Ybarra on 11-12-2022 Urate [Mass/Vol] 5.0 mg/dL 4.4-7.6 [facility] Urea nitrogen [Mass/volume] in Serum or PlasmaOrdered By: Teri Ybarra on 11-12-2022 Urea nitrogen [Mass/Vol] 27 mg/dL 7-[address] [facility] Uric Acidon 11-12-2022 Urate [Mass/Vol] 5.0 mg/dL Normal 4.4-7.6 [facility] Comment on above: Result Comment: PERF ORMED BY:[facility] [place], [place] [phone] MEDICAL DIRECTORAPRIL VEGA M.D. Performed By: #### C BC, URIC, CMP ####[facility] [place] [address] [facility] WBC Auto (Bld) [#/Vol]Ordere d By: Teri Ybarra on 11-12-2022 WBC (Bld) [#/Vol] 5.9 10*3/uL 4.1-10.5 [facility] A1C HEMOGLOBINon 10-11-2022 HbA1c (Bld) [Mass fraction] 7.2 % [employer] Other HbA1c (Bld) [Mass fraction]o n 10-11-2022 A1C HEMOGLOBIN [facility] [employer] Other Potassiumon 10-10-2022 Potassium [Moles/Vol] 4.0 mmol/L Normal 3.5-5.1 [facility] Comment on above: Order Comment: Reaso n for Exam Low serum potassium level Result Comment: PERF ORMED BY:[facility] [place] [place], [place] [phone] MEDICAL DIRECTORAPRIL VEGA M.D. Performed By: #### K ####[facility] [address] [place] [address] [facility] Potassium [Moles/volume] in Serum or PlasmaOrdered By: Geeta Dumont on 10-10-2022 Potassium [Moles/Vol] 4.0 mmol/L 3.5-5.1 [facility] MR head/brain wo conon 09-28 MR head/brain wo con Normal [facility] Office Visit (Cardiology)on 09-07-2022 Follow-up visit Diagnoses/Problems Assessed Atherosclerosis of [place] coronary artery without angina pectoris (414.01) (I25.10) [...] (Z87.891) Quit in 2006 Orders Atherosclerosis of [place] coronary artery without angina pectoris Renew: Aspirin [...] CALL 911) (more content not included)... Normal [employer] Tobacco Screening.on 023 Adult depression screening assessment No [facility] [employer] y 250 DO Work Phone: Fall risk assessment a) No falls within the last year [facility] [employer] y 250 DO Work Phone: Tobacco use status CPHS b) No [facility] docplanner-[employer] y 250 DO Work Phone: Basic Metabolic Panelon 06- Anion gap [Moles/Vol] 14.0 mmol/L Normal 6.0-15.0 [facility] Comment on above: Performed By: #### B MP ####[facility] [place] [address] [facility] Calcium [Mass/Vol] 10.5 mg/dL High 8.6-10.3 [facility] Comment on above: Result Comment: PERF ORMED BY:[address] CHUNGRitchieSOFIEJORDAN [place], [place] [id number] MEDICAL DIRECTORAPRIL VEGA M.D. Performed By: #### B MP ####[id number] [place] [address] [facility] Chloride [Moles/Vol] 102 mmol/L Normal 98-107 [facility] Comment on above: Performed By: #### B MP ####[address] [place] [address] [facility] CO2 [Moles/Vol] 26.9 mmol/L Normal 21.0-31.0 [facility] Comment on above: Performed By: #### B MP ####[address] [address] [facility] Creatinine [Mass/Vol] 1.12 mg/dL Normal 0.70-1.30 [facility] Comment on above: Performed By: #### B MP ####[id number] [place] [address] [facility] GFR/1.73 sq M.predicted MDRD (S/P/Bld) [Vol rate/Area] mL/min/{1.73_m2} Normal [facility] Comment on above: Performed By: #### B MP ####[address] [address] [facility] Glucose [Mass/Vol] 137 mg/dL High 70-100 [facility] Comment on above: Result Comment: Tutor Key om Glucose Reference Range is dependent on time and content of last meal. Glucose of more than 200 mg/dL in a nonstressed, ambulatory subject supports the diagnosis of Diabetes Mellitus. ADA recommended reference range Performed By: #### B MP ####[address] [place] [address] [facility] Potassium [Moles/Vol] 3.9 mmol/L Normal 3.5-5.1 [facility] Comment on above: Performed By: #### B MP ####[id number] [facility] Sodium [Moles/Vol] 139 mmol/L Normal 136-145 [facility] Comment on above: Performed By: #### B MP ####[id number] [facility] Urea nitrogen [Mass/Vol] 23 mg/dL Normal 7-[address] [facility] Comment on above: Performed By: #### B MP ####[id number] [place] [id number] [facility] Calcium [Mass/volume] in Ser um or PlasmaOrdered By: Stephanie Burgess on 09-05-2022 Calcium [Mass/Vol] 10.5 mg/dL 8.6-10.3 [facility] Carbon dioxide, total [Moles /volume] in Serum or PlasmaOrdered By: Stephanie Burgess on 09-05-2022 CO2 [Moles/Vol] 26.9 mmol/L 21.0-31.0 [facility] Chloride [Moles/volume] in S elmira or PlasmaOrdered By: Stephanie Burgess on 09-05-2022 Chloride [Moles/Vol] 102 mmol/L 98-107 [facility] Creatinine [Mass/volume] in Serum or PlasmaOrdered By: Stephanie Burgess on 09-05-2022 Creatinine [Mass/Vol] 1.12 mg/dL 0.70-1.30 [facility] Glucose [Mass/volume] in Ser um or PlasmaOrdered By: Stephanie Burgess on 09-05-2022 Glucose [Mass/Vol] 137 mg/dL 70-100 [facility] Comment on above: ADA recommended refe rence rangeRandom Glucose Reference Range is dependent on time and content of last meal. Glucose of more than 200 mg/dL in a nonstressed, ambulatory subject supports the diagnosis of Diabetes Mellitus. No Panel InformationOrdered By: Stephanie Burgess on 09-05-2022 Estimated GFR (CKD-EPI) > 60.0 mL/Min [facility] Creatinine Clearance (Chem N/A [facility] No Panel Informationon 09-05 > 60.0 Normal [facility] [address] DO Work Phone: [phone] 14.0\S\14.0 Normal 6.0-15.0 [facility] [address] DO Work Phone: [phone] 10.5\S\10.5 above high threshold 8.6-10.3 [facility] [address] DO Work Phone: [phone] Comment on above: PERFORMED BY:[facility] [place] [id number] MEDICAL DIRECTORAPRIL VGEA M.D. 26.9\S\26.9 Normal 21.0-31.0 [facility] [address] DO Work Phone: [phone] 102\S\102 Normal 98-107 [facility] [address] DO Work Phone: [phone] 3.9\S\3.9 Normal 3.5-5.1 [facility] [address] DO Work Phone: [phone] 139\S\139 Normal 136-145 [facility] [address] DO Work Phone: [phone] 1.12\S\1.12 Normal 0.70-1.30 [facility] [address] DO Work Phone: [phone] 23\S\23 Normal 7-25 [facility] [address] DO Work Phone: [phone] 137\S\137 above high threshold 70-100 [facility] [address] DO Work Phone: [phone] Comment on above: Random Glucose Refer ence Range is dependent on time and content of last meal. Glucose of more than 200 mg/dL in a nonstressed, ambulatory subject supports the diagnosis of Diabetes Mellitus. ADA recommended reference range Potassium [Moles/volume] in Serum or PlasmaOrdered By: Stephanie Burgess on 09-05-2022 Potassium [Moles/Vol] 3.9 mmol/L 3.5-5.1 [facility] Serum or plasma anion gap de terminationOrdered By: Stephanie Burgess on 09-05-2022 Anion gap [Moles/Vol] 14.0 mmol/L 6.0-15.0 [facility] Sodium [Moles/volume] in Ser um or PlasmaOrdered By: Stephanie Burgess on 09-05-2022 Sodium [Moles/Vol] 139 mmol/L 136-145 [facility] Urea nitrogen [Mass/volume] in Serum or PlasmaOrdered By: Stephanie Burgess on 09-05-2022 Urea nitrogen [Mass/Vol] 23 mg/dL 10-[address] [facility] XR cervical spine 2Von 09-03 XR cervical spine 2V Normal [facility] Alanine aminotransferase [En zymatic activity/volume] in Serum or PlasmaOrdered By: Geeta Dumont on 08-29-2022 ALT [Catalytic activity/Vol] 19 U/L [address] [facility] Albumin [Mass/volume] in Ser um or Plasma by Bromocresol green (BCG) dye binding methoOrdered By: Geeta Dumont on 08-29-2022 Albumin BCG dye [Mass/Vol] 4.3 g/dL 3.5-5.[address] [facility] Alkaline phosphatase [Enzyma tic activity/volume] in Serum or PlasmaOrdered By: Geeta Dumont on 08-29-2022 ALP [Catalytic activity/Vol] 96 U/L 34-[address] [facility] Aspartate aminotransferase [ Enzymatic activity/volume] in Serum or PlasmaOrdered By: Geeta Dumont on 08-29-2022 AST [Catalytic activity/Vol] 25 U/L 13-[address] [facility] Basophils Auto (Bld) [#/Vol] Ordered By: Geeta Dumont on 08-29-2022 Basophils (Bld) [#/Vol] 0.0 10*3/uL 0.0-0.[address] [facility] Basophils/100 WBC Auto (Bld) Ordered By: Geeta Dumont on 08-29-2022 Basophils/100 WBC (Bld) 0.7 % . [facility] Bilirubin.total [Mass/volume ] in Serum or PlasmaOrdered By: Geeta Dumont on 08-29-2022 Bilirubin [Mass/Vol] 0.6 mg/dL 0.3-1.0 [facility] Calcium [Mass/volume] in Ser um or PlasmaOrdered By: Geeta Dumont on 08-29-2022 Calcium [Mass/Vol] 10.6 mg/dL 8.6-10.3 [facility] Carbon dioxide, total [Moles /volume] in Serum or PlasmaOrdered By: Geeta Dumont on 08-29-2022 CO2 [Moles/Vol] 28.0 mmol/L 21.0-31.0 [facility] Chloride [Moles/volume] in S elmira or PlasmaOrdered By: Geeta Dumont on 08-29-2022 Chloride [Moles/Vol] 102 mmol/L 98-107 [facility] Cholesterol [Mass/volume] in Serum or PlasmaOrdered By: Geeta Dumont on 08-29-2022 Cholesterol [Mass/Vol] 141 mg/dL 140-[address] [facility] Comment on above: Chol less than 200 m g/dl low riskChol 201-239 mg/dl borderline riskChol 240 mg/dl and greater high risk Cholesterol in LDL Calc [Mas s/Vol]Ordered By: Geeta Dumont on 08-29-2022 Cholesterol in LDL [Mass/Vol] 77 mg/dL 0-[address] [facility] Comment on above: LDL ATP III CLASSIFI CATIONLDL less than 100 mg/dL OptimalLDL 100-129 mg/dL Near or above optimalLDL 130-159 mg/dL Borderline highLDL 160-189 mg/dL HighLDL greater than 189 mg/dL Very high Cholesterol in VLDL Calc [Ma ss/Vol]Ordered By: Geeta Dumont on 08-29-2022 Cholesterol in VLDL [Mass/Vol] 19 mg/dL [facility] Complete Blood Count Auto Di ffon 08-29-2022 Basophils (Bld) [#/Vol] 0.0 10*3/uL Normal 0.0-0.[address] [facility] Comment on above: Order Comment: Reaso n for 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 Result Comment: PERF ORMED BY:[address] [place], [place] [id number] MEDICAL DIRECTORAPRIL VEGA M.D. Performed By: #### T SH3 wRFLX, B12, CBC, CMP, URMACRERAT, LIPID, MG ####[address] Basophils/100 WBC (Bld) 0.7 % Normal . [facility] Comment on above: Order Comment: Reaso n for 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 Performed By: #### T SH3 wRFLX, B12, CBC, CMP, URMACRERAT, LIPID, MG ####[address] Eosinophils (Bld) [#/Vol] 0.4 10*3/uL Normal 0.0-0.[address] [facility] Comment on above: Order Comment: Reaso n for 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 Performed By: #### T SH3 wRFLX, B12, CBC, CMP, URMACRERAT, LIPID, MG ####[address] Eosinophils/100 WBC (Bld) 6.7 % Normal . [facility] Comment on above: Order Comment: Reaso n for 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 Performed By: #### T SH3 wRFLX, B12, CBC, CMP, URMACRERAT, LIPID, MG ####[address] Erythrocyte distribution width (RBC) [Ratio] 15.2 % High 12.0-14.[address] [facility] Comment on above: Order Comment: Reaso n for 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 Performed By: #### T SH3 wRFLX, B12, CBC, CMP, URMACRERAT, LIPID, MG ####[address] Hematocrit (Bld) [Volume fraction] 38.7 % Low 38.8-50.[address] [facility] Comment on above: Order Comment: Reaso n for 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 Performed By: #### T SH3 wRFLX, B12, CBC, CMP, URMACRERAT, LIPID, MG ####[address] Hemoglobin (Bld) [Mass/Vol] 12.9 g/dL Low 13.0-17.[address] [facility] Comment on above: Order Comment: Reaso n for 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 Performed By: #### T SH3 wRFLX, B12, CBC, CMP, URMACRERAT, LIPID, MG ####[address] Lymphocytes (Bld) [#/Vol] 0.9 10*3/uL Low 1.00-4.[address] [facility] Comment on above: Order Comment: Reaso n for 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 Performed By: #### T SH3 wRFLX, B12, CBC, CMP, URMACRERAT, LIPID, MG ####[address] Lymphocytes/100 WBC (Bld) 14.4 % Normal . [facility] Comment on above: Order Comment: Reaso n for 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 Performed By: #### T SH3 wRFLX, B12, CBC, CMP, URMACRERAT, LIPID, MG ####[address] MCH (RBC) [Entitic mass] 28.8 pg Normal 27.5-35.[address] [facility] Comment on above: Order Comment: Reaso n for 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 Performed By: #### T SH3 wRFLX, B12, CBC, CMP, URMACRERAT, LIPID, MG ####[address] MCV (RBC) [Entitic vol] 86.6 fL Normal 83.5-[address] [facility] Comment on above: Order Comment: Reaso n for 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 Performed By: #### T SH3 wRFLX, B12, CBC, CMP, URMACRERAT, LIPID, MG ####[address] [place] [address] [facility] Mean Corpuscular HGB Conc 33.3 g/dL Normal 32.5-35.[address] [facility] Comment on above: Order Comment: Reaso n for 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 Performed By: #### T SH3 wRFLX, B12, CBC, CMP, URMACRERAT, LIPID, MG ####[id number] [facility] Monocytes (Bld) [#/Vol] 0.6 10*3/uL Normal 0.0-0.[address] [facility] Comment on above: Order Comment: Reaso n for 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 Performed By: #### T SH3 wRFLX, B12, CBC, CMP, URMACRERAT, LIPID, MG ####[address] [place] [address] [facility] Monocytes/100 WBC (Bld) 9.9 % Normal . [facility] Comment on above: Order Comment: Reaso n for 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 Performed By: #### T SH3 wRFLX, B12, CBC, CMP, URMACRERAT, LIPID, MG ####[address] [address] [facility] Neutrophils (Bld) [#/Vol] 4.4 10*3/uL Normal 1.8-7.[address] [facility] Comment on above: Order Comment: Reaso n for 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 Performed By: #### T SH3 wRFLX, B12, CBC, CMP, URMACRERAT, LIPID, MG ####[address] [address] [facility] Neutrophils/100 WBC (Bld) 68.3 % Normal . [facility] Comment on above: Order Comment: Reaso n for 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 Performed By: #### T SH3 wRFLX, B12, CBC, CMP, URMACRERAT, LIPID, MG ####[address] NRBC% 0.1 /100{WBC} Normal 0-0.[address] [facility] Comment on above: Order Comment: Reaso n for 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 Performed By: #### T SH3 wRFLX, B12, CBC, CMP, URMACRERAT, LIPID, MG ####[address] Platelet mean volume (Bld) [Entitic vol] 7.2 fL Normal 6.6-10.[address] [facility] Comment on above: Order Comment: Reaso n for 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 Performed By: #### T SH3 wRFLX, B12, CBC, CMP, URMACRERAT, LIPID, MG ####[address] Platelets (Bld) [#/Vol] 208 10*3/uL Normal 150-[address] [facility] Comment on above: Order Comment: Reaso n for 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 Performed By: #### T SH3 wRFLX, B12, CBC, CMP, URMACRERAT, LIPID, MG ####[address] RBC (Bld) [#/Vol] 4.47 10*6/uL Normal 3.90-5.60 [facility] Comment on above: Order Comment: Reaso n for 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 Performed By: #### T SH3 wRFLX, B12, CBC, CMP, URMACRERAT, LIPID, MG ####[id number] [facility] WBC (Bld) [#/Vol] 6.4 10*3/uL Normal 4.1-10.5 [facility] Comment on above: Order Comment: Reaso n for 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 Performed By: #### T SH3 wRFLX, B12, CBC, CMP, URMACRERAT, LIPID, MG ####[facility] [id number] [place] [address] [facility] Comprehensive Metabolic Pane anny 08-29-2022 Albumin [Mass/Vol] 4.3 g/dL Normal 3.5-5.7 [facility] Comment on above: Order Comment: Reaso n for 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 Reason for Exam Restless legs Reason for Exam Acquired hypothyroidism Performed By: #### T SH3 wRFLX, B12, CBC, CMP, URMACRERAT, LIPID, MG ####[address] [place] [address] [facility] Albumin/Globulin [Mass ratio] 1.7 {ratio} Normal [facility] Comment on above: Order Comment: Reaso n for 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 Reason for Exam Restless legs Reason for Exam Acquired hypothyroidism Performed By: #### T SH3 wRFLX, B12, CBC, CMP, URMACRERAT, LIPID, MG ####[facility] [id number] [place] [address] [facility] ALP [Catalytic activity/Vol] 96 U/L Normal 34-[address] [facility] Comment on above: Order Comment: Reaso n for 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 Reason for Exam Restless legs Reason for Exam Acquired hypothyroidism Performed By: #### T SH3 wRFLX, B12, CBC, CMP, URMACRERAT, LIPID, MG ####[address] [place] [address] [facility] ALT [Catalytic activity/Vol] 19 U/L Normal 7-[address] [facility] Comment on above: Order Comment: Reaso n for 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 Reason for Exam Restless legs Reason for Exam Acquired hypothyroidism Performed By: #### T SH3 wRFLX, B12, CBC, CMP, URMACRERAT, LIPID, MG ####[address] [place] [address] [facility] Anion gap [Moles/Vol] 13.7 mmol/L Normal 6.0-15.0 [facility] Comment on above: Order Comment: Reaso n for 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 Reason for Exam Restless legs Reason for Exam Acquired hypothyroidism Performed By: #### T SH3 wRFLX, B12, CBC, CMP, URMACRERAT, LIPID, MG ####[facility] [place] [address] [facility] AST [Catalytic activity/Vol] 25 U/L Normal 13-[address] [facility] Comment on above: Order Comment: Reaso n for 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 Reason for Exam Restless legs Reason for Exam Acquired hypothyroidism Performed By: #### T SH3 wRFLX, B12, CBC, CMP, URMACRERAT, LIPID, MG ####[address] [place] [address] [facility] Bilirubin [Mass/Vol] 0.6 mg/dL Normal 0.3-1.0 [facility] Comment on above: Order Comment: Reaso n for 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 Reason for Exam Restless legs Reason for Exam Acquired hypothyroidism Performed By: #### T SH3 wRFLX, B12, CBC, CMP, URMACRERAT, LIPID, MG ####[id number] [place] [id number] [facility] Calcium [Mass/Vol] 10.6 mg/dL High 8.6-10.3 [facility] Comment on above: Order Comment: Reaso n for 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 Reason for Exam Restless legs Reason for Exam Acquired hypothyroidism Performed By: #### T SH3 wRFLX, B12, CBC, CMP, URMACRERAT, LIPID, MG ####[facility] [id number] [place] [address] [facility] Chloride [Moles/Vol] 102 mmol/L Normal 98-107 [facility] Comment on above: Order Comment: Reaso n for 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 Reason for Exam Restless legs Reason for Exam Acquired hypothyroidism Performed By: #### T SH3 wRFLX, B12, CBC, CMP, URMACRERAT, LIPID, MG ####[address] [place] [address] [facility] CO2 [Moles/Vol] 28.0 mmol/L Normal 21.0-31.0 [facility] Comment on above: Order Comment: Reaso n for 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 Reason for Exam Restless legs Reason for Exam Acquired hypothyroidism Performed By: #### T SH3 wRFLX, B12, CBC, CMP, URMACRERAT, LIPID, MG ####[facility] [id number] [facility] Creatinine [Mass/Vol] 1.21 mg/dL Normal 0.70-1.30 [facility] Comment on above: Order Comment: Reaso n for 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 Reason for Exam Restless legs Reason for Exam Acquired hypothyroidism Performed By: #### T SH3 wRFLX, B12, CBC, CMP, URMACRERAT, LIPID, MG ####[address] [place] [id number] [facility] GFR/1.73 sq M.predicted MDRD (S/P/Bld) [Vol rate/Area] mL/min/{1.73_m2} [facility] Comment on above: Order Comment: Reaso n for 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 Reason for Exam Restless legs Reason for Exam Acquired hypothyroidism Performed By: #### T SH3 wRFLX, B12, CBC, CMP, URMACRERAT, LIPID, MG ####[address] [place] [id number] [facility] Globulin (S) [Mass/Vol] 2.5 g/dL [facility] Comment on above: Order Comment: Reaso n for 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 Reason for Exam Restless legs Reason for Exam Acquired hypothyroidism Performed By: #### T SH3 wRFLX, B12, CBC, CMP, URMACRERAT, LIPID, MG ####[id number] [place] [id number] [facility] Glucose [Mass/Vol] 158 mg/dL High 70-100 [facility] Comment on above: Order Comment: Reaso n for 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 Reason for Exam Restless legs Reason for Exam Acquired hypothyroidism Result Comment: Tutor Key Glucose Reference Range is dependent on time and content of last meal. Glucose of more than 200 mg/dL in a nonstressed, ambulatory subject supports the diagnosis of Diabetes Mellitus. ADA recommended reference range Performed By: #### T SH3 wRFLX, B12, CBC, CMP, URMACRERAT, LIPID, MG ####[address] [place] [address] [facility] Potassium [Moles/Vol] 3.7 mmol/L Normal 3.5-5.1 [facility] Comment on above: Order Comment: Reaso n for 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 Reason for Exam Restless legs Reason for Exam Acquired hypothyroidism Performed By: #### T SH3 wRFLX, B12, CBC, CMP, URMACRERAT, LIPID, MG ####[address] [place] [id number] [facility] Protein [Mass/Vol] 6.8 g/dL Normal 6.4-8.9 [facility] Comment on above: Order Comment: Reaso n for 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 Reason for Exam Restless legs Reason for Exam Acquired hypothyroidism Performed By: #### T SH3 wRFLX, B12, CBC, CMP, URMACRERAT, LIPID, MG ####[address] [address] [facility] Sodium [Moles/Vol] 140 mmol/L Normal 136-145 [facility] Comment on above: Order Comment: Reaso n for 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 Reason for Exam Restless legs Reason for Exam Acquired hypothyroidism Performed By: #### T SH3 wRFLX, B12, CBC, CMP, URMACRERAT, LIPID, MG ####[address] [place] [address] [facility] Urea nitrogen [Mass/Vol] 30 mg/dL High 7-[address] [facility] Comment on above: Order Comment: Reaso n for 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 Reason for Exam Restless legs Reason for Exam Acquired hypothyroidism Performed By: #### T SH3 wRFLX, B12, CBC, CMP, URMACRERAT, LIPID, MG ####[address] [place] [address] [facility] Creatinine [Mass/volume] in Serum or PlasmaOrdered By: Geeta Dumont on 08-29-2022 Creatinine [Mass/Vol] 1.21 mg/dL 0.70-1.30 [facility] Creatinine [Mass/volume] in UrineOrdered By: Geeta Dumont on 08-29-2022 Creatinine (U) [Mass/Vol] 152.0 mg/dL 14.0-26.[address] [facility] Eosinophils Auto (Bld) [#/Vo l]Ordered By: Geeta Dumont on 08-29-2022 Eosinophils (Bld) [#/Vol] 0.4 10*3/uL 0.0-0.[address] [facility] Eosinophils/100 WBC Auto (Bl d)Ordered By: Geeta Dumont on 08-29-2022 Eosinophils/100 WBC (Bld) 6.7 % . [facility] Erythrocyte distribution wid th Auto (RBC) [Ratio]Ordered By: Geeta Dumont on 08-29-2022 Erythrocyte distribution width (RBC) [Ratio] 15.2 % 12.0-14.[address] [facility] Globulin Calc (S) [Mass/Vol] Ordered By: Geeta Dumont on 08-29-2022 Globulin (S) [Mass/Vol] 2.5 g/dL [facility] Glucose [Mass/volume] in Ser um or PlasmaOrdered By: Geeta Dumont on 08-29-2022 Glucose [Mass/Vol] 158 mg/dL 70-100 [facility] Comment on above: ADA recommended refe rence rangeRandom Glucose Reference Range is dependent on time and content of last meal. Glucose of more than 200 mg/dL in a nonstressed, ambulatory subject supports the diagnosis of Diabetes Mellitus. Hematocrit Auto (Bld) [Volum e fraction]Ordered By: Geeta Dumont on 08-29-2022 Hematocrit (Bld) [Volume fraction] 38.7 % 38.8-50.[address] [facility] Hemoglobin [Mass/volume] in BloodOrdered By: Geeta Dumont on 08-29-2022 Hemoglobin (Bld) [Mass/Vol] 12.9 g/dL 13.0-17.[address] [facility] Leukocytes [#/volume] correc martin for nucleated erythrocytes in Blood by Automated counOrdered By: Geeta Dumont on 08-29-2022 WBC corrected for nucl RBC Auto (Bld) [#/Vol] 6.4 10*3/uL 4.1-10.[address] [facility] Lipid Panelon 08-29-2022 Cholesterol [Mass/Vol] 141 mg/dL Normal 140-[address] [facility] Comment on above: Order Comment: Reaso n for 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 Reason for Exam Restless legs Reason for Exam Acquired hypothyroidism Result Comment: Chol less than 200 mg/dl low risk Chol 201-239 mg/dl borderline risk Chol 240 mg/dl and greater high risk Performed By: #### T SH3 wRFLX, B12, CBC, CMP, URMACRERAT, LIPID, MG ####[facility] [id number] [place] [id number] [facility] Cholesterol in HDL [Mass/Vol] 45 mg/dL Normal 23-[address] [facility] Comment on above: Order Comment: Reaso n for 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 Reason for Exam Restless legs Reason for Exam Acquired hypothyroidism Result Comment: HDL CHOL ATP-III CLASSIFICATION Cardiovascular Risk HDL > or equal to 60 mg/dL LOW HDL < 40 mg/dL HIGH Performed By: #### T SH3 wRFLX, B12, CBC, CMP, URMACRERAT, LIPID, MG ####[address] [place] [address] [facility] Cholesterol.total/Cho lesterol in HDL [Mass ratio] 3.1 {ratio} Normal <5.[address] [facility] Comment on above: Order Comment: Reaso n for 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 Reason for Exam Restless legs Reason for Exam Acquired hypothyroidism Performed By: #### T SH3 wRFLX, B12, CBC, CMP, URMACRERAT, LIPID, MG ####[facility] [id number] [place] [address] [facility] LDL Cholesterol,Calculate d 77 mg/dL Normal 0-[address] [facility] Comment on above: Order Comment: Reaso [...] 189 mg/dL Very high Performed By: #### T SH3 wRFLX, B12, CBC, CMP, URMACRERAT, LIPID, MG ####[place] [id number] Triglyceride w/Reflex 97 mg/dL Normal 0-149 [facility] Comment on above: Order Comment: Reaso [...] Prevention (CDC) test method. Performed By: #### T SH3 wRFLX, B12, CBC, CMP, URMACRERAT, LIPID, MG ####[place] [address] VLDL CHOLESTEROL 19 mg/dL Normal [place] [facility] Comment on above: Order Comment: Reaso n for 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 Reason for Exam Restless legs Reason for Exam Acquired hypothyroidism Performed By: #### T SH3 wRFLX, B12, CBC, CMP, URMACRERAT, LIPID, MG ####[address] Lymphocytes Auto (Bld) [#/Vo l]Ordered By: Geeta Dumont on 08-29-2022 Lymphocytes (Bld) [#/Vol] 0.9 10*3/uL 1.00-4.[address] [facility] Lymphocytes/100 WBC Auto (Bl d)Ordered By: Geeta Dumont on 08-29-2022 Lymphocytes/100 WBC (Bld) 14.4 % . [facility] MCH Auto (RBC) [Entitic mass ]Ordered By: Geeta Dumont on 08-29-2022 MCH (RBC) [Entitic mass] 28.8 pg 27.5-35.[address] [facility] MCHC Auto (RBC) [Mass/Vol]Or dered By: Geeta Dumont on 08-29-2022 MCHC (RBC) [Mass/Vol] 33.3 g/dL 32.5-35.6 [facility] MCV Auto (RBC) [Entitic vol] Ordered By: Geeta Dumont on 08-29-2022 MCV (RBC) [Entitic vol] 86.6 fL 83.5-[address] 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 Comment on above: Order Comment: Reaso n for 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 Performed By: #### T SH3 wRFLX, B12, CBC, CMP, URMACRERAT, LIPID, MG ####[facility] [id number] Creatinine, Urine (Random) 152.0 mg/dL High 14.0-26.[address] [facility] Comment on above: Order Comment: Reaso n for 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 Performed By: #### T SH3 wRFLX, B12, CBC, CMP, URMACRERAT, LIPID, MG ####[facility] [id number] [place] [address] [facility] Microalbumin/Creatini ne Ratio 42.0 mg/g High 0.0-30.[address] [facility] Comment on above: Order Comment: Reaso n for 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 Greater than 300 mg/g is consistent with clinical nephropathy. (Am. J. Kidney Disease 1995, 25:107)PERFORMED BY:[facility] [place], [place] [phone] MEDICAL DIRECTORAPRIL VEGA M.D. Performed By: #### T SH3 wRFLX, B12, CBC, CMP, URMACRERAT, LIPID, MG ####[facility] [id number] [place] [address] [facility] Microalbumin [Mass/volume] i n UrineOrdered By: Geeta Dumont on 08-29-2022 Albumin DL <= 20 mg/L (U) [Mass/Vol] 6.5 mg/dL 0.0-1.[address] [facility] Monocytes Auto (Bld) [#/Vol] Ordered By: Geeta Dumont on 08-29-2022 Monocytes (Bld) [#/Vol] 0.6 10*3/uL 0.0-0.[address] [facility] Monocytes/100 WBC Auto (Bld) Ordered By: Geeta Dumont on 08-29-2022 Monocytes/100 WBC (Bld) 9.9 % . [facility] Neutrophils Auto (Bld) [#/Vo l]Ordered By: Geeta Dumont on 08-29-2022 Neutrophils (Bld) [#/Vol] 4.4 10*3/uL 1.8-7.[address] [facility] Neutrophils/100 WBC Auto (Bl d)Ordered By: Geeta Dumont on 08-29-2022 Neutrophils/100 WBC (Bld) 68.3 % . [facility] No Panel InformationOrdered By: Geeta Dumont on 08-29-2022 Estimated GFR (CKD-EPI) > 60.0 mL/Min [facility] Creatinine Clearance (Chem N/A [facility] Nucleated erythrocytes [Pres ence] in Blood by Automated countOrdered By: Geeta Dumont on 08-29-2022 Nucleated RBC Auto Ql (Bld) 0.1 /100{WBC} 0-0.[address] [facility] Platelet mean volume Auto (B ld) [Entitic vol]Ordered By: Geeta Dumont on 08-29-2022 Platelet mean volume (Bld) [Entitic vol] 7.2 fL 6.6-10.[address] [facility] Platelets Auto (Bld) [#/Vol] Ordered By: Geeta Dumont on 08-29-2022 Platelets (Bld) [#/Vol] 208 10*3/uL 150-[address] [facility] Potassium [Moles/volume] in Serum or PlasmaOrdered By: Geeta Dumont on 08-29-2022 Potassium [Moles/Vol] 3.7 mmol/L 3.5-5.1 [facility] Protein [Mass/volume] in Ser um or PlasmaOrdered By: Geeta Dumont on 08-29-2022 Protein [Mass/Vol] 6.8 g/dL 6.4-8.9 [facility] RBC Auto (Bld) [#/Vol]Ordere d By: Geeta Dumont on 08-29-2022 RBC (Bld) [#/Vol] 4.47 10*6/uL 3.90-5.60 [facility] Serum or plasma albumin/glob ulin mass ratioOrdered By: Geeta Dumont on 08-29-2022 Albumin/Globulin [Mass ratio] 1.7 {ratio} [facility] Serum or plasma anion gap de terminationOrdered By: Geeta Dumont on 08-29-2022 Anion gap [Moles/Vol] 13.7 mmol/L 6.0-15.0 [facility] Serum or plasma high density lipoprotein (HDL) cholesterol measurementOrdered By: Geeta Dumont on 08-29-2022 Cholesterol in HDL [Mass/Vol] 45 mg/dL 23-[address] [facility] Comment on above: HDL CHOL ATP-III CLA SSIFICATION Cardiovascular RiskHDL > or equal to 60 mg/dL LOWHDL < 40 mg/dL HIGH Serum or plasma total choles terol/high density lipoprotein (HDL) cholesterol mass ratOrdered By: Geeta Dumont on 08-29-2022 Cholesterol.total/Cho lesterol in HDL [Mass ratio] 3.1 {ratio} <5.[address] [facility] Sodium [Moles/volume] in Ser um or PlasmaOrdered By: Geeta Dumont on 08-29-2022 Sodium [Moles/Vol] 140 mmol/L 136-145 [facility] Thyroid Stim Hormone w/Rflxo n 08-29-2022 Thyroid Stim Hormone w/Rflx 4.34 u[iU]/mL Normal 0.45-5.[address] 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 Performed By: #### T SH3 wRFLX, B12, CBC, CMP, URMACRERAT, LIPID, MG ####[facility] [id number] [place] [id number] [facility] Thyrotropin [Units/volume] i n Serum or PlasmaOrdered By: Geeta Dumont on 08-29-2022 TSH Qn 4.34 m[IU]/L 0.45-5.[address] [facility] Triglyceride [Mass/volume] i n Serum or PlasmaOrdered By: Geeta Dumont on 08-29-2022 Triglyceride [Mass/Vol] 97 mg/dL 0-[address] [facility] Comment on above: TRIG ATP III CLASSIF ICATIONTRIG less than 150 mg/dL NormalTRIG 150-199 mg/dL Borderline highTRIG 200-500 mg/dL High TRIG greater than 500 mg/dL Very highStandard traceable to the Center for Disease Conrtrol and Prevention (CDC) test method. Urea nitrogen [Mass/volume] in Serum or PlasmaOrdered By: Geeta Dumont on 08-29-2022 Urea nitrogen [Mass/Vol] 30 mg/dL 10-[address] [facility] Urine microalbumin/creatinin e mass ratioOrdered By: Geeta Dumont on 08-29-2022 Albumin/Creatinine DL <= 20 mg/L (U) [Mass ratio] 42.0 mg/g 0.0-30.[address] [facility] Comment on above: 30-300 mg/g indicate s an increased risk for diabetic nephropathy. Greater than 300 mg/g is consistent with clinical nephropathy. (Am. J. Kidney Disease 1995, 25:107) Vitamin B12on 08-29-2022 Cobalamin (Vitamin B12) [Mass/Vol] 304 pg/mL Normal 180-[address] 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 WBC Auto (Bld) [#/Vol]Ordere d By: Geeta Dumont on 08-29-2022 WBC (Bld) [#/Vol] 6.4 10*3/uL 4.1-10.5 [facility] XR chest 2V*on 08-28-2022 XR chest 2V* Normal [facility] XR chest 2V* [facility] [employer] Other XR chest 2V* [facility] [employer] Other XR chest 2V* [address] [facility] [employer] Other XR chest 2V* [place] [address] [facility] [employer] Other XR chest 2V* XRay Report [employer] Other XR chest 2V* Signed [employer] Other XR chest 2V* Patient: Samantha Potter MR#: [id number] [employer] Other XR chest 2V* 357 [employer] Other XR chest 2V* : 1955 Acct:[id number] [employer] Other XR chest 2V* Age/Sex: 67 / M ADM Date: 08/28/22 [employer] Other XR chest 2V* Loc: [facility] Room: Type : [facility] [employer] Other XR chest 2V* Attending Dr: Jorje Dumont APRN, ELECT[employer]ICAL [employer]ODU[employer] ENGINEER-C [employer] Other XR chest 2V* Copies to: Geeta Dumont APRN, ISABELLA [employer] Other XR chest 2V* Ordering Provider: Geeta Dumont APRN, ISABELLA [employer] Other XR chest 2V* Date of Service: 08/28/22 [employer] Other XR chest 2V* [id number]) XR/XR chest 2V*: Other congestive heart failure;Shortness of breath [employer] Other XR chest 2V* Plain film chest 2 view [employer] Other XR chest 2V* HISTORY: Shortness o f breath [employer] Other XR chest 2V* COMPARISON: 03/13/2019 [employer] Other XR chest 2V* FINDINGS: [employer] Other XR chest 2V* SUPPORT DEVICES: None [email or web address] Other XR chest 2V* POSTSURGICAL CHANGES: None [employer] Other XR chest 2V* HEART: Within normal limits [employer] Other XR chest 2V* PULMONARY SALOME: With in normal limits [employer] Other XR chest 2V* MEDIASTINUM: Unremarkable [employer] Other XR chest 2V* LUNGS AND PLEURA: Si milar basilar parenchymal densities identified. Consider atelectasis/scarring. [employer] Other XR chest 2V* No new consolidation , pleural effusion or pneumothorax. [employer] Other XR chest 2V* BONY STRUCTURES: Intact [employer] Other XR chest 2V* ADDITIONAL FINDINGS None [employer] Other XR chest 2V* X R/XR chest 2V* [employer] Other XR chest 2V* IMPRESSION: Stable b asilar parenchymal densities suggesting atelectasis/scarring. [employer] Other XR chest 2V* Impression dictated by: Kwasi Tomlin M.D.08/28/2022 12:11 PM [employer] Other XR chest 2V* Dictation Location: [id number] [employer] Other XR chest 2V* Transcribed By: PWS 08/28/22 1211 [employer] Other XR chest 2V* Dictated By: Pasha Tomlin DO 08/28/22 1209 [employer] Other XR chest 2V* Signed By: [employer] Other XR chest 2V* 08/28/22 1211 [facility] [employer] Other Echocardiogramon 07-02-[address] [facility] [address] [place] [address], [address], [place] [address] TRANSTHORACIC ECHOCARDIOGRAM REPORT Patient Name: SANDRA POTTER Reading Physician: [id number] Deanne Gaxiola MD Study Date: 07/02/2022 Referring Physician: VIRIDIANA BURGESS MRN/PID: [id number] PCP: Teri Aragon Accession/Order#: [id number] Department Location: [facility] Date of : 1955 Fellow: Gender: M Nurse: Ede Morton RN Admit Date: Head Resident: Marichuy Duarte RDCS, RVT Height: 180.34 cm CC Report to: Weight: 108.41 kg Study Type: Echocardiogram BSA: 2.27 m2 Diagnosis/ICD: I42.1-Obstructive hypertrophic cardiomyopathy; Z95.818-Presence of other cardiac implants and grafts Indication: Chronic Atrial Fibrillation, CAD, COPD, Diabetes, HTN, Hyperlipidemia, PTCA-2007, Former Smoker, Obesity, Large B-Cell Lymphoma Procedure/CPT: Echo Complete w Full [id number] Study Detail: The following Echo studies were [...] 1.0 m/s (0.6-0.9m/s) PV Max P.1 mmHg [id number] Deanne Gaxiola MD Electronically signed on 07/02/2022 at 5:06:32 PM Final Normal [facility] XR lumbar spine AP/LAT/FLX/E XTon 04-26-2022 XR lumbar spine AP/LAT/FLX/EXT [facility] [employer] Other XR lumbar spine AP/LAT/FLX/EXT [facility] [employer] Other XR lumbar spine AP/LAT/FLX/EXT [address] [place] [address] [employer] Other XR lumbar spine AP/LAT/FLX/[place] [address] [employer] Other XR lumbar spine AP/LAT/FLX/EXT XRay Report [employer] Other XR lumbar spine AP/LAT/FLX/EXT Signed [employer] Other XR lumbar spine AP/LAT/FLX/EXT Patient: Sandra Potter MR#: [id number] [employer] Other XR lumbar spine AP/LAT/FLX/EXT [address] [employer] Other XR lumbar spine AP/LAT/FLX/EXT : 1955 Acct:[id number] [employer] Other XR lumbar spine AP/LAT/FLX/EXT Age/Sex: 66 / M ADM Date: 04/26/22 [employer] Other XR lumbar spine AP/LAT/FLX/EXT Loc: [facility] Room: Type: [facility] [employer] Other XR lumbar spine AP/LAT/FLX/EXT Attending Dr: Lavon Sandoval MD [employer] Other XR lumbar spine AP/LAT/FLX/EXT Copies to: Lavon Sandoval MD [employer] Other XR lumbar spine AP/LAT/FLX/EXT Ordering Provider: Lavon Sandoval MD [employer] Other XR lumbar spine AP/LAT/FLX/EXT Date of Service: 04/26/22 [employer] Other XR lumbar spine AP/LAT/FLX/EXT XR/XR lumbar spine AP/LAT/FLX/EXT: Osteoarthritis of lumbosacral spine [employer] Other XR lumbar spine AP/LAT/FLX/EXT without myelopathy [employer] Other XR lumbar spine AP/LAT/FLX/EXT XR lumbar spine AP/LAT/FLX/EXT 04/26/2022 10:27 AM [employer] Other XR lumbar spine AP/LAT/FLX/EXT SIGNS AND SYMPTOMS: Low back pain worse with flexion [employer] Other XR lumbar spine AP/LAT/FLX/EXT PROTOCOLS: Frontal, lateral, and flexion-extension views of the lumbar spine [employer] Other XR lumbar spine AP/LAT/FLX/EXT COMPARISON: None [employer] Other XR lumbar spine AP/LAT/FLX/EXT FINDINGS: [employer] Other XR lumbar spine AP/LAT/FLX/EXT There is a dextro convex curvature of the thoracolumbar spine. There is severe intervertebral disc [employer] Other XR lumbar spine AP/LAT/FLX/EXT height loss throughout the thoracolumbar spine sparing the L3-L4 and L4-L5 levels. Facet [employer] Other XR lumbar spine AP/LAT/FLX/EXT degenerative changes are present, greatest at L4-5. The sacrum and sacroiliac joints are normal. [employer] Other XR lumbar spine AP/LAT/FLX/EXT Atherosclerotic changes are noted in the abdominal aorta. [employer] Other XR lumbar spine AP/LAT/FLX/EXT XR/XR lumbar spine AP/LAT/FLX/EXT [employer] Other XR lumbar spine AP/LAT/FLX/EXT IMPRESSION: [employer] Other XR lumbar spine AP/LAT/FLX/EXT There is a dextro convex curvature of thoracolumbar spine with severe multilevel degenerative [employer] Other XR lumbar spine AP/LAT/FLX/EXT change. [employer] Other XR lumbar spine AP/LAT/FLX/EXT No fracture or subluxation. [employer] Other XR lumbar spine AP/LAT/FLX/EXT No pathologic movement on flexion or extension. [employer] Other XR lumbar spine AP/LAT/FLX/EXT Impression dictated by: Juliano Conteh M.D.04/26/2022 4:15 PM [employer] Other XR lumbar spine AP/LAT/FLX/EXT Dictation Location: [place] [address] [employer] Other XR lumbar spine AP/LAT/FLX/EXT Transcribed By: CHAPINCITO 04/26/22 [facility] [employer] Other XR lumbar spine AP/LAT/FLX/EXT Dictated By: Juliano Conteh II, MD 04/26/22 [facility] [employer] Other XR lumbar spine AP/LAT/FLX/EXT Signed By: [employer] Other XR lumbar spine AP/LAT/FLX/EXT 04/26/22 1615 [employer] Other Glucose Glucometer (BldC) [M ass/Vol]Ordered By: Arron Valverde on 04-03-2022 Glucose [Mass/Vol] 114 mg/dL [facility] Comment on above: Random Glucose Refer ence Range is dependent on time and content of last meal. Glucose of more than 200 mg/dL in a nonstressed, ambulatory subject supports the diagnosis of Diabetes Mellitus. A1C HEMOGLOBINon 04-02-2022 HbA1c (Bld) [Mass fraction] 6.7 % [employer] Other HbA1c (Bld) [Mass fraction]o n 04-02-2022 A1C HEMOGLOBIN MIGSIF Other Albumin [Mass/volume] in Ser um or PlasmaOrdered By: Stephanie Burgess on 03-28-2022 Albumin [Mass/Vol] 3.9 g/dL 3.2-5.5 [facility] Basophils Auto (Bld) [#/Vol] Ordered By: Joana Farooq on 03-28-2022 Basophils (Bld) [#/Vol] 0.0 10*3/uL 0.0-0.[address] [facility] Basophils/100 WBC Auto (Bld) Ordered By: Joana Farooq on 03-28-2022 Basophils/100 WBC (Bld) 0.4 % . [facility] Cholesterol [Mass/volume] in Serum or PlasmaOrdered By: Stephanie Burgess on 03-28-2022 Cholesterol [Mass/Vol] 147 mg/dL 140-[address] [facility] Comment on above: Chol less than 200 m g/dl low riskChol 201-239 mg/dl borderline riskChol 240 mg/dl and greater high risk Cholesterol in LDL Calc [Mas s/Vol]Ordered By: Stephanie Burgess on 03-28-2022 Cholesterol in LDL [Mass/Vol] 85 mg/dL 0-[address] [facility] Comment on above: LDL ATP III CLASSIFI CATIONLDL less than 100 mg/dL OptimalLDL 100-129 mg/dL Near or above optimalLDL 130-159 mg/dL Borderline highLDL 160-189 mg/dL HighLDL greater than 189 mg/dL Very high Cholesterol in VLDL Calc [Ma ss/Vol]Ordered By: Stephanie Burgess on 03-28-2022 Cholesterol in VLDL [Mass/Vol] 16 mg/dL [facility] Creatinine and Glomerular fi ltration rate.predicted panel (S/P/Bld)Ordered By: Stephanie Burgess on 03-28-2022 Creatinine [Mass/Vol] 1.34 mg/dL 0.64-1.27 [facility] Eosinophils Auto (Bld) [#/Vo l]Ordered By: Joana Farooq on 03-28-2022 Eosinophils (Bld) [#/Vol] 0.5 10*3/uL 0.0-0.[address] [facility] Eosinophils/100 WBC Auto (Bl d)Ordered By: Joana Farooq on 03-28-2022 Eosinophils/100 WBC (Bld) 6.9 % . [facility] Erythrocyte distribution wid th Auto (RBC) [Ratio]Ordered By: Joana Farooq on 03-28-2022 Erythrocyte distribution width (RBC) [Ratio] 16.4 % 12.0-14.[address] [facility] Estimated glomerular filtrat ion rate (GFR) non- AmericanOrdered By: Stephanie Burgess on 03-28-2022 GFR/1.73 sq M.predicted among non-blacks MDRD (S/P/Bld) [Vol rate/Area] 54 mL/Min [facility] Globulin Calc (S) [Mass/Vol] Ordered By: Stephanie Burgess on 03-28-2022 Globulin (S) [Mass/Vol] 3.0 g/dL [facility] Hematocrit Auto (Bld) [Volum e fraction]Ordered By: Joana Farooq on 03-28-2022 Hematocrit (Bld) [Volume fraction] 41.2 % 38.8-50.[address] [facility] Hemoglobin [Mass/volume] in BloodOrdered By: Joana Farooq on 03-28-2022 Hemoglobin (Bld) [Mass/Vol] 13.1 g/dL 13.0-17.[address] [facility] Laboratory - Chemistry and C hemistry - challengeon 03-28-2022 Cholesterol [Mass/Vol] 147\S\147 Normal 140-200 -[facility] [address] DO Work Phone: Comment on above: Chol less than 200 m g/dl low risk Chol 201-239 mg/dl borderline risk Chol 240 mg/dl and greater high risk Cholesterol in LDL [Mass/Vol] 85\S\85 Normal 0-100 [facility] [address] DO Work Phone: Comment [...] RBC Auto (Bld) [#/Vol] 6.7 10*3/uL 4.1-10.[address] [facility] Lymphocytes Auto (Bld) [#/Vo l]Ordered By: Joana Farooq on 03-28-2022 Lymphocytes (Bld) [#/Vol] 0.9 10*3/uL 1.00-4.[address] [facility] Lymphocytes/100 WBC Auto (Bl d)Ordered By: Joana Farooq on 03-28-2022 Lymphocytes/100 WBC (Bld) 13.0 % . [facility] MCH Auto (RBC) [Entitic mass ]Ordered By: Joana Farooq on 03-28-2022 MCH (RBC) [Entitic mass] 27.1 pg 27.5-35.[address] [facility] MCHC Auto (RBC) [Mass/Vol]Or dered By: Joana Farooq on 03-28-2022 MCHC (RBC) [Mass/Vol] 31.7 g/dL 32.5-35.6 [facility] MCV Auto (RBC) [Entitic vol] Ordered By: Joana Farooq on 03-28-2022 MCV (RBC) [Entitic vol] 85.4 fL 83.5-[address] [facility] Monocytes Auto (Bld) [#/Vol] Ordered By: Joana Farooq on 03-28-2022 Monocytes (Bld) [#/Vol] 0.8 10*3/uL 0.0-0.[address] [facility] Monocytes/100 WBC Auto (Bld) Ordered By: Joana Farooq on 03-28-2022 Monocytes/100 WBC (Bld) 11.6 % . [facility] Neutrophils Auto (Bld) [#/Vo l]Ordered By: Joana Farooq on 03-28-2022 Neutrophils (Bld) [#/Vol] 4.6 10*3/uL 1.8-7.[address] [facility] Neutrophils/100 WBC Auto (Bl d)Ordered By: Joana Farooq on 03-28-2022 Neutrophils/100 WBC (Bld) 68.1 % . [facility] No Panel Informationon 03-28 3.3\S\3.3 Normal <5.0 [facility] y 250 DO Work Phone: Comment on above: PERFORMED BY:[address] [place], [place] [phone] MEDICAL DIRECTORAPRIL VEGA M.D. 16\S\16 Normal [facility] y 250 DO Work Phone: 84\S\84 Normal 35-149 [facility] y 250 DO Work Phone: Comment on above: TRIG ATP III CLASSIF ICATION TRIG less than 150 mg/dL Normal TRIG 150-199 mg/dL Borderline high TRIG 200-500 mg/dL High TRIG greater than 500 mg/dL Very high Standard traceable to the Center for Disease Conrtrol and Prevention (CDC) test method. 45\S\45 Normal 29-71 [facility] Work Phone: Comment on above: HDL CHOL ATP-III CLA SSIFICATION Cardiovascular Risk HDL > or equal to 60 mg/dL LOW HDL < 40 mg/dL HIGH 6.9\S\6.9 Normal 6.1-7.9 [facility] 250 DO Work Phone: [phone] 10.5\S\10.5 above high threshold 8.2-10.2 [facility] 250 DO Work Phone: [phone] 13.1\S\13.1 Normal 6.0-15.0 [facility] [address] DO Work Phone: [phone] 26.6\S\26.6 Normal 22.0-30.0 [facility] 250 DO Work Phone: [phone] 101\S\101 Normal 95-114 [facility] 250 DO Work Phone: [phone] 4.7\S\4.7 Normal 3.5-5.1 [facility] 250 DO Work Phone: [phone] 18\S\18 Normal 10-60 [facility] 250 DO Work Phone: [phone] 24\S\24 above high threshold 9-23 [facility] 250 DO Work Phone: [phone] 0.7\S\0.7 Normal 0.3-1.2 [facility] 250 DO Work Phone: [phone] 1.3\S\1.3 Normal [facility] 250 DO Work Phone: [phone] 3.0\S\3.0 Normal [facility] 250 DO Work Phone: [phone] 3.9\S\3.9 Normal 3.2-5.5 [facility] 250 DO Work Phone: [phone] 99\S\99 above high threshold 32-92 [facility] 250 DO Work Phone: [phone] Comment on above: PERFORMED BY:[place] [address] [place] [place] [phone] MEDICAL DIRECTORAPRIL VEGA M.D. 136\S\136 Normal 136-146 -[facility] y 250 DO Work Phone: > [phone] Normal [facility] y 250 DO Work Phone: Comment on above: GFR estimated refere nce range: According to KDOQI guidelines, <60 ml/min/1.73m2 is sufficient to diagnose a patient with chronic kidney disease. 54\S\54 Normal [facility] 250 DO Work Phone: 1.34\S\1.34 above high threshold 0.64-1.27 -[facility] y 250 DO Work Phone: 133\S\133 above high threshold 70-100 [facility] Work Phone: Comment on above: Random Glucose Refer ence Range is dependent on time and content of last meal. Glucose of more than 200 mg/dL in a nonstressed, ambulatory subject supports the diagnosis of Diabetes Mellitus. ADA recommended reference range No Panel InformationOrdered By: Stephanie Burgess on 03-28-2022 Estimated GFR () > 60 mL/Min [facility] Comment on above: GFR estimated refere nce range: According to KDOQI guidelines, <60 ml/min/1.73m2 is sufficient to diagnose a patient with chronic kidney disease. Pharmacy Creatinine Clearance (Chem N/A [facility] Nucleated erythrocytes [Pres ence] in Blood by Automated countOrdered By: Joana Farooq on 03-28-2022 Nucleated RBC Auto Ql (Bld) 0.1 /100{WBC} 0-0.[address] [facility] Platelet mean volume Auto (B ld) [Entitic vol]Ordered By: Joana Farooq on 03-28-2022 Platelet mean volume (Bld) [Entitic vol] 7.2 fL 6.6-10.[address] [facility] Platelets Auto (Bld) [#/Vol] Ordered By: Joana Farooq on 03-28-2022 Platelets (Bld) [#/Vol] 207 10*3/uL 150-[address] [facility] Protein [Mass/volume] in Ser um or PlasmaOrdered By: Stephanie Burgess on 03-28-2022 Protein [Mass/Vol] 6.9 g/dL 6.1-7.9 [facility] RBC Auto (Bld) [#/Vol]Ordere d By: Joana Farooq on 03-28-2022 RBC (Bld) [#/Vol] 4.83 10*6/uL 3.90-5.60 [facility] Serum or plasma alanine bartholomew otransferase measurement without P-5'-P (enzymatic activiOrdered By: Stephanie Burgess on 03-28-2022 ALT No additional P-5'-P [Catalytic activity/Vol] 18 U/L 10-[address] [facility] Serum or plasma albumin/glob ulin mass ratioOrdered By: Stephanie Burgess on 03-28-2022 Albumin/Globulin [Mass ratio] 1.3 {ratio} [facility] Serum or plasma alkaline dorothea sphatase measurement (enzymatic activity/volume)Ordered By: Stephanie Burgess on 03-28-2022 ALP [Catalytic activity/Vol] 99 U/L 32-[address] [facility] Serum or plasma anion gap de terminationOrdered By: Stephanie Burgess on 03-28-2022 Anion gap [Moles/Vol] 13.1 mmol/L 6.0-15.0 [facility] Serum or plasma aspartate am inotransferase measurement (enzymatic activity/volume)Ordered By: Stephanie Burgess on 03-28-2022 AST [Catalytic activity/Vol] 24 U/L 10-[address] [facility] Serum or plasma calcium victor m urement (mass/volume)Ordered By: Stephanie Burgess on 03-28-2022 Calcium [Mass/Vol] 10.5 mg/dL 8.2-10.2 [facility] Serum or plasma chloride meenakshi surement (moles/volume)Ordered By: Stephanie Burgess on 03-28-2022 Chloride [Moles/Vol] 101 mmol/L 95-114 [facility] Serum or plasma glucose victor m urement (mass/volume)Ordered By: Stephanie Burgess on 03-28-2022 Glucose [Mass/Vol] 133 mg/dL 70-100 [facility] Comment on above: ADA recommended refe rence rangeRandom Glucose Reference Range is dependent on time and content of last meal. Glucose of more than 200 mg/dL in a nonstressed, ambulatory subject supports the diagnosis of Diabetes Mellitus. Serum or plasma high density lipoprotein (HDL) cholesterol measurementOrdered By: Stephanie Burgess on 03-28-2022 Cholesterol in HDL [Mass/Vol] 45 mg/dL 29-[address] [facility] Comment on above: HDL CHOL ATP-III CLA SSIFICATION Cardiovascular RiskHDL > or equal to 60 mg/dL LOWHDL < 40 mg/dL HIGH Serum or plasma potassium me asurement (moles/volume)Ordered By: Stephanie Burgess on 03-28-2022 Potassium [Moles/Vol] 4.7 mmol/L 3.5-5.1 [facility] Serum or plasma sodium measu rement (moles/volume)Ordered By: Stephanie Burgess on 03-28-2022 Sodium [Moles/Vol] 136 mmol/L 136-146 [facility] Serum or plasma total biliru bin measurement (mass/volume)Ordered By: Stephanie Burgess on 03-28-2022 Bilirubin [Mass/Vol] 0.7 mg/dL 0.3-1.2 [facility] Serum or plasma total carbon dioxide measurement (moles/volume)Ordered By: Stephanie Burgess on 03-28-2022 CO2 [Moles/Vol] 26.6 mmol/L 22.0-30.0 [facility] Serum or plasma total choles terol/high density lipoprotein (HDL) cholesterol mass ratOrdered By: Stephanie Burgess on 03-28-2022 Cholesterol.total/Cho lesterol in HDL [Mass ratio] 3.3 {ratio} <5.[address] [facility] Serum or plasma urea nitroge n measurement (mass/volume)Ordered By: Stephanie Burgess on 03-28-2022 Urea nitrogen [Mass/Vol] 24 mg/dL 9-[address] [facility] Serum or plasma uric acid me asurement (mass/volume)Ordered By: Joana Farooq on 03-28-2022 Urate [Mass/Vol] 5.7 mg/dL 2.6-7.2 [facility] Triglyceride [Mass/volume] i n Serum or PlasmaOrdered By: Stephanie Burgess on 03-28-2022 Triglyceride [Mass/Vol] 84 mg/dL 35-[address] [facility] Comment on above: TRIG ATP III CLASSIF ICATIONTRIG less than 150 mg/dL NormalTRIG 150-199 mg/dL Borderline highTRIG 200-500 mg/dL High TRIG greater than 500 mg/dL Very highStandard traceable to the Center for Disease Conrtrol and Prevention (CDC) test method. 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) (I42.1) Atherosclerosis of [place] coronary artery without angina pectoris (414.01) (I25.10) Status post angioplasty (V45.89) (Z98.62) Presence of Watchman left atrial appendage closure device (V45.09) (Z95.818) High risk medication use (V58.69) (Z79.899) Former smoker (V15.82) (Z87.891) Quit in 2006 Class 1 obesity with body mass index (BMI) of 33.0 to 33.9 in adult (278.00,V85.33) (E66.9,Z68.33) Orders Atherosclerosis of [place] coronary artery without angina pectoris, Diabetes mellitus [...] Echocardiogram; Status:Hold For - Scheduling,Retrospective Authorization; Requested for:25Jun2022; SocHx: Former smoker Tobacco Use Screening; Status:Complete; [...] Oral TabletTAK (more content not included)... Normal [facility] Dialog Tobacco Screening.on 022 Tobacco use status [facility] b) No [facility] y [address] DO Work Phone: Coding Summary.on 01-02-2022 Coding Summary. CD:[id number] Gh0bWw +PGhlYWQ+OU9CZXTmD42hsHYyu Z9YL0oVOJ9XKEWPYDMUQC7JKP7 wsOK3TMjcU0JohmIq UmlmzOSmIP86LAj9NFI7iImrJX ajxK1xfIHzP5h4HhSrDT61hN30 UHmdDIZxXmW3TjAhopzrcEWz S4pmXaNjkNUwSfx+PHRhYmxlIH upMSYkIMbiBULqPuXycFecQV0o Kr1mXLRhNEWkoPtylBCrEmJp d1veIHHgBUwtRR9brSqpN9ZwfQ X4WQNvu7m2Yy40pZX+PHRkIHN0 nHcbUKese268JwZdm8csRIS6 iEJlFNlkDKL1M72mi1S7SBDkTN VwFQB7rMP2fZ6xpIdbreurJ8Xx jHSyTmD2HGN1eSQlbW0scTbc kkmniT2kUoe+D51LHZ3ERMXVDZ 7RFut2D5TwMyazlJK+CE18YFQp NW60oRRbeCLqb6dstCr2HcRy OTJgJBH8aNqyNQevk8EzPHArR4 3ieNPnj7I0DNUakQjgiOZbJfLo oYR6rJ0zNBbrbyjru1nmpkag Gxypj9aaxu84eK28R59bVMzeSQ JcNTI3YBEpMCAepTpryw1axO3s Ii8+AHwau1wvi1czgMi5NgEr CVWwysPxsFeuTWE6d4XrZv27L7 MnqGxpg1ErEsb9wp93bRInq7W8 sLV4PWvlLNTayZ0kQVznAxE7 PNVkKkJmkO97vOLtMRyjLj6euY dsgJiaIW1eBBCudcumRTDitL0v RBWtgHTrzCzaOE4kAAPujpbo f720GmVyJPC1SZHhtCZzQ5WtcL 4dHpAtCGIzZOLqH6YuiASsLMnv Z563KGehStP9QPZshwJpX8Yx HJDrsVsjCeF9x8T6Dy7Ag4Xsri dqUFN1XTylHLKjWyT3QfZyEzE7 Y4VfBgc9AJCqwYboXA5vY9Fu CGRazjtwyxprhER4ICUaDXThtR 41iTGxZKcpDw6wl0F3y204BCOo OLDksR35Pf7deZxsGMQpgWHN pB7ipuyra2pncfaaEmPjCNYiDA s1XXp3ALAzvIcgEpCxBWP7UbR0 GJF5uVTrwK8xwUsqlpfwoT1u Oyc+Z11zkL3pIIP8CND0mssmRB RdjuThAO36OA66Z0ZcZbaalSTu bGU+BTHqqiIroGqsKT0jFmYx n7igh7HtMGrpV9TxRBLaADhoUq w0NYOiWVJ7bUF9dM9uCKMeGNah r5K5dTC3S2IhghVjrc5mv0xh GTCvXHngO13uhZSjz4Y2CCEqlL E1AUSeuUnhZjTteW73Dlp+PGNv kLgfq6ErRflkg6bhg2gilWj7 CfJnLNTsilKuxJgaGUG0v5ZwJk 82U69eRThlQSHzURJxPVTtXSSa ePpblc4ppK1eUn9+PGNvbCB3 wDV7gX5lMYGiVcW4HXooH521Uu GiiHUfVfzmu2eqn8uxhZs7ZfOq WBKeatKbvSozGIR9m2HgSa44 H55rOLhbBWXcVEVmXCUwWMOymL fqeq7feN9kHn5+MA8rn5flhb03 bD09rCW+IVXbZCE3mFcmJTcr PETjhE4tWTrlGaE7JPDpMuPfdD 35tILqGRtqTc4gbAlfhGppSV6z XCKxbbbho648MdYlt7ezZHZl lWOuHFjzMVH9P69fv1H6OVMoIO BzWLJ5dYT7zZ1tqRjplrxbxGAt hBvqycSrrSiwCFdmYMkxG690 IHRvcDsnPlBhdGllbnQgTmFtZT x0A0ItUtc9PNSwhAcmLG9kfDXk WWgeKd9koBexsZblTL3jWKVi hqdha464IeMvc5urRWOetVNkXW hgACD3R62ib2C9KXRnGRXmZOY2 uEH5fL1chCtforpbcJCriZfq stFwkSnjSAotDEofG706TLMuxS roMvBumaDsXHNlxUN0KA88KH71 yMTzs0N7kFO5S9AiXQUakeed bwnamAK3WMChEYMltJ92Bg5fjT cqZf4uQOVfWZA5HQSbsPTkK8Yi aN5eTnAiNZGxCFQsB8WafRAe PZtoV510VKojMqW8DTGmevPoE9 TrTOUwoOejFxX6r7W7Ye9VD4V4 XA50GG27bAZgx3J7oKO1D9Dg TBCbcjcmyesmaJM1PWEySEGhqV 96Mz8juMxoDs8cDDKzECE7NOSz tDZoR6GhiT2jTlCbKSCyVPTc H5MybAUpXTfqG464BEgzRhT0WN McpeRfV0OpRQMuwMucGgE8u8B1 Fl0KHBn9CI00PH52xEAkx0M1 mYA2R6PbKHAvvemnmjxqgIK6KH UtRAHxnM31Sj1ovBjaKo2dHCIa ZPF9QPDauNGzV6YcyN9dHmVq MDWmAWQgH6LnnLNhXScpA927AD qqBbC1ZGOrjdDkY6MbZMUpsLev ScP2d7K1Zf3BMGQrXD85ABK1 eXS4VC73GS19S5BkGpvhpGByrR U+PHRhYmxlIHdpZHRoPScxMDAl IjToqJowQU9pLz4hCLLoPTEs gZkvbOPhVzBle6voSGGzXZesBO 1zxYfrZ1KxlGF0TSFzp0p2Rv73 H82gY3FzyLN+ODPmoFP7fFS6 oA6eNkEiXxO2KFhkJ917BlXxzV GqWbblt9jvz6tvwRv2RvF3AOXb xsBlwXqqOVL1q0HeJe86J07u IHdpZHRoPSIxNSUiIHZhbGlnbj 5tcN7oZa6+YNQhiRM5uSW3kW1g EqRuXlL3DNaqC124LfColBUj Mahze1gep6oixVk8UtLtFKBvsw EypYshZGT3r9PiKb06X7HcqXjz q1AgCnd9mo76wAOhf4S8lLQ0 P2JqYZZxkjuluCYuaCboGM7jQP SerdjpGSIglQ3tCSTxL1d0GcZy CsU7ESuyZ8LxkdT0AWBzrNPm TAeaGAR5G24tf4G2JRKgZXDiZH U2vTK5zC8mgMuvmzrmnFRgrBuz qbTxoNnsCZpeFKrtL336DXMq cLfxCCDirV2wXIQaoKOngUldDW 4bLFSspgkqRxDDBLUEWBNYGV83 K7CjYan4HWDdqBonYG4fnZXt LUzhVk1aqOjknGraYC0iCBUxpu fuHVJphW7lPTTklJFfuCvqPE9n BWIinbxdm430PaOsDZE3UNQd tTJaE4GdkW1rKuTvDKDiKSYbK6 PzsLKtAJnwQ352OZthIpE0ZDMd keSfU7UiDBJfbPjkYcC1l0Y1 Lz3fYF9dLN1uSRY5VT56GS36vB Qdr2L9mUF1F2LaZOIlwttjfock rZN5SCCcYUOpuT55mNAgGDyc Ro3kp3J8t370KQUoRTPsvQ72Sg 3ftAlxVPRneNTOvP3danemn0em ysifLxVyMBNtOJk7GIq4JENi pIsmAdNuZFS7MgB1LWK6gBTcsH 0piZfywopobU0tHst+NjQgWWVh vqV6S6GnQrh6EQJfxCohVK9p zPXpOFdcGl5doSzxkZwoAZ0fNL FykqutEXLguJ3gIPZlcZBssWzk FD6aRDOtzuaeb148GgEeBPQ7 MCGniCQqZ6HyeW7lXnHtZRUjLD EmS3YzbQQlACwsK648AXdcGgH3 CTCaneIhM3NaXMMdpGtsPsR9 r1Q9Ep8EGAxrKW63OD30aRIdo4 Q8bQW2W7DoNVTzuvlwmdunfRY9 CLYwAUDgdZ72bPSzXKcfBk1a j8M7d564TAVpFBTrpI30Dl7ooE pgBKTywYPXmK6korbdm8tbyrla HvNqOBCaKBz4EZr6BJLjsHiu MbQrUNG7OsE7HGY9yRFmdU8tgQ ckcjyjrN2pYao+YIYdOWRfd7Ss y2InPP10RJ76G5VyOecjoXYx bGU+PHRhYmxlIHdpZHRoPScxMD UyPwNotKghVV3tAl2rCDJnYUZh hNkjrLEvKmRia4jhXBIyMFsh NM9lzLbyJ2OrgFR6AAQll2p1Sc 70R87eL0WkkAK+LMFjwCZ2mGY2 qO7xWlJbVxN5BOuqR315IzDd aWJlBgxoa9nqh2jqvPi5MiRyOF LntpGcbFkfARJ4g0EbDc94H39v IHdpZHRoPSIyMCUiIHZhbGln yq2amG4sMm3+CWYzrUL5pUE4nK 1hBqWnOiN4YBinX184WjCmlNQf MwnhI03gY6KauJX+PHRyPjx0 CEYkkLjqZE9ddZOaITlrMv1wPE B2EoDiTzDeOFsaN4CnBPNidyjo epacdPB7RIYbMZJrhJ05Kj1c aSkfCa6cASBaKNR1CQZhfHCgC9 NgjN1gFkFxUWIwPNIdM6OjqWVg MVkhI336KOwgIjC5QUFcsxTi C9SjACLriCfwVlC6h7H0Ex6MpC umjSWfMN0sHkXkSGl0O4PcEao1 EBErdAarGT1gtRTnIVulKe8u nYisbAdnBQ5pMEOmloayo280Wm Ymt0okTPTsyZLsEKooZWV3W32w i2D3DEFgYPXkZKH1lHS7qR4j bGlnbjogbGVmdDsgdmVydGljYW kyAUxgL360DLOolTvsUmSKOan7 U9DcLwb5GSAzhVuuAA0ywFWe WJnhVr2mcWrqxEwtQA5nXNNgqt cqr119IhGbr6unOGXcyAEtNIip QLI5A62hj1O9WLLeKINrETZ0 cZI2zD5dzLhhwpfcrGSuhUaedc BndBfdFSyuJVhoQ715RZVnnVqe Gv0DEjd3L2RyHnp9PTBflHxr MV1aqIYgOUpuHy7qnLcmpDupFV 5bRNMrojzph667QlYiu2yxVXXq fJTlYEwnENK7A85ry6Z4YWKv GGZtBFQ9bAX6vR6lzZpykhgxsG MsySkbntXwjEmvSPdjVFwsS579 IHRvcDsnPlBheWVyOjwvdGQ+ FR89le82H7VnKfnmQvg3CBPkLW X7oPE3cS2pCVUpTJysa4L3nPJ8 P1GgzpYxek0ku4eiWUWmDJqd Y29s (more content not included)... Normal [facility] Physician Orderon 12-27-2021 Physician Order [id number] Normal [facility] A1C HEMOGLOBINon 12-15-2021 HbA1c (Bld) [Mass fraction] 6.4 % [employer] Other HbA1c (Bld) [Mass fraction]o n 12-15-2021 A1C HEMOGLOBIN MIGSIF Other Bacteria identified Aer cx N om (Unsp spec)Ordered By: ALEX Begum on 12-13-2021 Superficial Wound Culture Staphylococcus aureus [facility] Basophils Auto (Bld) [#/Vol] Ordered By: Teri Ybarra on 12-05-2021 Basophils (Bld) [#/Vol] 0.1 10*3/uL 0.0-0.[address] [facility] Basophils/100 WBC Auto (Bld) Ordered By: Teri Ybarra on 12-05-2021 Basophils/100 WBC (Bld) 0.8 % . [facility] Blood hemoglobin measurement (mass/volume)Ordered By: Teri Ybarra on 12-05-2021 Hemoglobin (Bld) [Mass/Vol] 13.7 g/dL 13.0-17.[address] [facility] Blood leukocytes automated c ount (number/volume)Ordered By: Teri Ybarra on 12-05-2021 WBC (Bld) [#/Vol] 7.5 10*3/uL 4.5-11.0 [facility] Body fluid albumin measureme nt (mass/volume)Ordered By: Teri Ybarra on 12-05-2021 Albumin (Body fld) [Mass/Vol] 4.0 g/dL 3.2-5.[address] [facility] Creatinine and Glomerular fi ltration rate.predicted panel (S/P/Bld)Ordered By: Teri Ybarra on 12-05-2021 Creatinine [Mass/Vol] 1.28 mg/dL 0.64-1.27 [facility] Eosinophils Auto (Bld) [#/Vo l]Ordered By: Teri Ybarra on 12-05-2021 Eosinophils (Bld) [#/Vol] 0.4 10*3/uL 0.0-0.[address] [facility] Eosinophils/100 WBC Auto (Bl d)Ordered By: Teri Ybarra on 12-05-2021 Eosinophils/100 WBC (Bld) 5.1 % . [facility] Erythrocyte distribution wid th Auto (RBC) [Ratio]Ordered By: Teri Ybarra on 12-05-2021 Erythrocyte distribution width (RBC) [Ratio] 15.6 % 12.0-14.[address] [facility] Estimated glomerular filtrat ion rate (GFR) non- AmericanOrdered By: Teri Ybarra on 12-05-2021 GFR/1.73 sq M.predicted among non-blacks MDRD (S/P/Bld) [Vol rate/Area] 57 mL/Min [facility] Globulin Calc (S) [Mass/Vol] Ordered By: Teri Ybarra on 12-05-2021 Globulin (S) [Mass/Vol] 3.0 g/dL [facility] Hematocrit Auto (Bld) [Volum e fraction]Ordered By: Teri Ybarra on 12-05-2021 Hematocrit (Bld) [Volume fraction] 42.1 % 38.8-50.[address] [facility] Laboratory - Hematology and Cell countsOrdered By: Teri Ybarra on 12-05-2021 Nucleated RBC/100 WBC (Bld) [Ratio] 0.0 % 0-0.[address] [facility] Lymphocytes Auto (Bld) [#/Vo l]Ordered By: Teri Ybarra on 12-05-2021 Lymphocytes (Bld) [#/Vol] 1.1 10*3/uL 1.00-4.[address] [facility] Lymphocytes/100 WBC Auto (Bl d)Ordered By: Teri Ybarra on 12-05-2021 Lymphocytes/100 WBC (Bld) 14.5 % . [facility] MCH Auto (RBC) [Entitic mass ]Ordered By: Teri Ybarra on 12-05-2021 MCH (RBC) [Entitic mass] 28.3 pg 27.5-35.[address] [facility] MCHC Auto (RBC) [Mass/Vol]Or dered By: Teri Ybarra on 12-05-2021 MCHC (RBC) [Mass/Vol] 32.5 g/dL 32.5-35.6 [facility] MCV Auto (RBC) [Entitic vol] Ordered By: Teri Ybarra on 12-05-2021 MCV (RBC) [Entitic vol] 87.0 fL 83.5-[address] [facility] Monocytes Auto (Bld) [#/Vol] Ordered By: Teri Ybarra on 12-05-2021 Monocytes (Bld) [#/Vol] 0.9 10*3/uL 0.0-0.[address] [facility] Monocytes/100 WBC Auto (Bld) Ordered By: Teri Ybarra on 12-05-2021 Monocytes/100 WBC (Bld) 11.3 % . [facility] Neutrophils Auto (Bld) [#/Vo l]Ordered By: Teri Ybarra on 12-05-2021 Neutrophils (Bld) [#/Vol] 5.1 10*3/uL 1.8-7.[address] [facility] Neutrophils/100 WBC Auto (Bl d)Ordered By: Teri Ybarra on 12-05-2021 Neutrophils/100 WBC (Bld) 68.3 % . [facility] No Panel InformationOrdered By: Teri Ybarra on 12-05-2021 Estimated GFR () > 60 mL/Min [facility] Comment on above: GFR estimated refere nce range: According to KDOQI guidelines, <60 ml/min/1.73m2 is sufficient to diagnose a patient with chronic kidney disease. Pharmacy Creatinine Clearance (Chem N/A [facility] Platelet mean volume Auto (B ld) [Entitic vol]Ordered By: Teri Ybarra on 12-05-2021 Platelet mean volume (Bld) [Entitic vol] 7.4 fL 6.6-10.[address] [facility] Platelets Auto (Bld) [#/Vol] Ordered By: Teri Ybarra on 12-05-2021 Platelets (Bld) [#/Vol] 268 10*3/uL 150-[address] [facility] Protein [Mass/volume] in Ser um or PlasmaOrdered By: Teri Ybarra on 12-05-2021 Protein [Mass/Vol] 7.0 g/dL 6.1-7.9 [facility] RBC Auto (Bld) [#/Vol]Ordere d By: Teri Ybarra on 12-05-2021 RBC (Bld) [#/Vol] 4.84 10*6/uL 3.90-5.60 [facility] Serum or plasma alanine bartholomew otransferase measurement without P-5'-P (enzymatic activiOrdered By: Teri Ybarra on 12-05-2021 ALT No additional P-5'-P [Catalytic activity/Vol] 21 U/L 10-[address] [facility] Serum or plasma albumin/glob ulin mass ratioOrdered By: Teri Ybarra on 12-05-2021 Albumin/Globulin [Mass ratio] 1.3 {ratio} [facility] Serum or plasma alkaline dorothea sphatase measurement (enzymatic activity/volume)Ordered By: Teri Ybarra on 12-05-2021 ALP [Catalytic activity/Vol] 94 U/L 32-[address] [facility] Serum or plasma anion gap de terminationOrdered By: Teri Ybarra on 12-05-2021 Anion gap [Moles/Vol] 11.9 mmol/L 6.0-15.0 [facility] Serum or plasma aspartate am inotransferase measurement (enzymatic activity/volume)Ordered By: Teri Ybarra on 12-05-2021 AST [Catalytic activity/Vol] 29 U/L 10-[address] [facility] Serum or plasma calcium victor m urement (mass/volume)Ordered By: Teri Ybarra on 12-05-2021 Calcium [Mass/Vol] 10.4 mg/dL 8.2-10.2 [facility] Serum or plasma chloride meenakshi surement (moles/volume)Ordered By: Teri Ybarra on 12-05-2021 Chloride [Moles/Vol] 102 mmol/L 95-114 [facility] Serum or plasma glucose victor m urement (mass/volume)Ordered By: Teri Ybarra on 12-05-2021 Glucose [Mass/Vol] 116 mg/dL 70-100 [facility] Comment on above: ADA recommended refe [...] on 12-05-2021 Potassium [Moles/Vol] 3.6 mmol/L 3.5-5.1 [facility] Serum or plasma sodium measu rement (moles/volume)Ordered By: Teri Tate on 12-05-2021 Sodium [Moles/Vol] 138 mmol/L 136-146 [facility] Serum or plasma total biliru bin measurement (mass/volume)Ordered By: Teri Ybarra on 12-05-2021 Bilirubin [Mass/Vol] 0.7 mg/dL 0.3-1.2 [facility] Serum or plasma total carbon dioxide measurement (moles/volume)Ordered By: Teri Ybarra on 12-05-2021 CO2 [Moles/Vol] 27.7 mmol/L 22.0-30.0 [facility] Serum or plasma urea nitroge n measurement (mass/volume)Ordered By: Teri Ybarra on 12-05-2021 Urea nitrogen [Mass/Vol] 34 mg/dL 12-[address] [facility] Physical Therapy Noteon 11-16 Physical Therapy Note [id number] [facility] Bacteria identified Aer cx N om (Unsp spec)Ordered By: Estee Han on 11-10-2021 Superficial Wound Culture Staphylococcus aureus [facility] Basophils Auto (Bld) [#/Vol] Ordered By: Sandra Danielson on 11-09-2021 Basophils (Bld) [#/Vol] 0.1 10*3/uL 0.0-0.[address] [facility] Basophils/100 WBC Auto (Bld) Ordered By: Sandra Danielson on 11-09-2021 Basophils/100 WBC (Bld) 0.9 % . [facility] Blood hemoglobin measurement (mass/volume)Ordered By: Sandra Danielson on 11-09-2021 Hemoglobin (Bld) [Mass/Vol] 13.6 g/dL 13.0-17.[address] [facility] Blood leukocytes automated c ount (number/volume)Ordered By: Sandra Danielson on 11-09-2021 WBC (Bld) [#/Vol] 6.4 10*3/uL 4.5-11.0 [facility] Body fluid albumin measureme nt (mass/volume)Ordered By: Geeta Dumont on 11-09-2021 Albumin (Body fld) [Mass/Vol] 3.9 g/dL 3.2-5.[address] [facility] Creatinine and Glomerular fi ltration rate.predicted panel (S/P/Bld)Ordered By: Geeta Dumont on 11-09-2021 Creatinine [Mass/Vol] 1.22 mg/dL 0.64-1.27 [facility] Eosinophils Auto (Bld) [#/Vo l]Ordered By: Sandra Danielson on 11-09-2021 Eosinophils (Bld) [#/Vol] 0.5 10*3/uL 0.0-0.[address] [facility] Eosinophils/100 WBC Auto (Bl d)Ordered By: Sandra Danielson on 11-09-2021 Eosinophils/100 WBC (Bld) 7.6 % . [facility] Erythrocyte distribution wid th Auto (RBC) [Ratio]Ordered By: Sandra Danielson on 11-09-2021 Erythrocyte distribution width (RBC) [Ratio] 16.2 % 12.0-14.[address] [facility] Estimated glomerular filtrat ion rate (GFR) non- AmericanOrdered By: Geeta Dumont on 11-09-2021 GFR/1.73 sq M.predicted among non-blacks MDRD (S/P/Bld) [Vol rate/Area] 60 mL/Min [facility] Globulin Calc (S) [Mass/Vol] Ordered By: Geeta Dumont on 11-09-2021 Globulin (S) [Mass/Vol] 3.2 g/dL [facility] Hematocrit Auto (Bld) [Volum e fraction]Ordered By: Sandra Danielson on 11-09-2021 Hematocrit (Bld) [Volume fraction] 42.3 % 38.8-50.[address] [facility] Laboratory - Hematology and Cell countsOrdered By: Sandra Danielson on 11-09-2021 Nucleated RBC/100 WBC (Bld) [Ratio] 0.1 % 0-0.[address] [facility] Lactate dehydrogenase measur ement (enzymatic activity/volume)Ordered By: Sandra Danielson on 11-09-2021 LDH (Unsp spec) [Catalytic activity/Vol] 186 U/L 45-[address] [facility] Lymphocytes Auto (Bld) [#/Vo l]Ordered By: Sandra Danielson on 11-09-2021 Lymphocytes (Bld) [#/Vol] 1.0 10*3/uL 1.00-4.[address] [facility] Lymphocytes/100 WBC Auto (Bl d)Ordered By: Sandra Danielson on 11-09-2021 Lymphocytes/100 WBC (Bld) 15.5 % . [facility] MCH Auto (RBC) [Entitic mass ]Ordered By: Sandra Danielson on 11-09-2021 MCH (RBC) [Entitic mass] 28.0 pg 27.5-35.[address] [facility] MCHC Auto (RBC) [Mass/Vol]Or dered By: Sandra Danielson on 11-09-2021 MCHC (RBC) [Mass/Vol] 32.0 g/dL 32.5-35.6 [facility] MCV Auto (RBC) [Entitic vol] Ordered By: Sandra Danielson on 11-09-2021 MCV (RBC) [Entitic vol] 87.3 fL 83.5-[address] [facility] Monocytes Auto (Bld) [#/Vol] Ordered By: Sandra Danielson on 11-09-2021 Monocytes (Bld) [#/Vol] 0.8 10*3/uL 0.0-0.[address] [facility] Monocytes/100 WBC Auto (Bld) Ordered By: Sandra Danielson on 11-09-2021 Monocytes/100 WBC (Bld) 12.3 % . [facility] Neutrophils Auto (Bld) [#/Vo l]Ordered By: Sandra Danielson on 11-09-2021 Neutrophils (Bld) [#/Vol] 4.1 10*3/uL 1.8-7.[address] [facility] Neutrophils/100 WBC Auto (Bl d)Ordered By: Sandra Danielson on 11-09-2021 Neutrophils/100 WBC (Bld) 63.7 % . [facility] No Panel InformationOrdered By: Geeta Dumont on 11-09-2021 Estimated GFR () > 60 mL/Min [facility] Comment on above: GFR estimated refere nce range: According to KDOQI guidelines, <60 ml/min/1.73m2 is sufficient to diagnose a patient with chronic kidney disease. Pharmacy Creatinine Clearance (Chem 78.[address] [facility] Platelet mean volume Auto (B ld) [Entitic vol]Ordered By: Sandra Danielson on 11-09-2021 Platelet mean volume (Bld) [Entitic vol] 7.1 fL 6.6-10.[address] [facility] Platelets Auto (Bld) [#/Vol] Ordered By: Sandra Danielson on 11-09-2021 Platelets (Bld) [#/Vol] 260 10*3/uL 150-[address] [facility] Protein [Mass/volume] in Ser um or PlasmaOrdered By: Geeta Dumont on 11-09-2021 Protein [Mass/Vol] 7.1 g/dL 6.1-7.9 [facility] RBC Auto (Bld) [#/Vol]Ordere d By: Sandra Danielson on 11-09-2021 RBC (Bld) [#/Vol] 4.85 10*6/uL 3.90-5.60 [facility] Serum or plasma alanine bartholomew otransferase measurement without P-5'-P (enzymatic activiOrdered By: Geeta Dumont on 11-09-2021 ALT No additional P-5'-P [Catalytic activity/Vol] 16 U/L 10-[address] [facility] Serum or plasma albumin/glob ulin mass ratioOrdered By: Geeta Dumont on 11-09-2021 Albumin/Globulin [Mass ratio] 1.2 {ratio} [facility] Serum or plasma alkaline dorothea sphatase measurement (enzymatic activity/volume)Ordered By: Geeta Dumont on 11-09-2021 ALP [Catalytic activity/Vol] 103 U/L 32-[address] [facility] Serum or plasma aspartate am inotransferase measurement (enzymatic activity/volume)Ordered By: Geeta Dumont on 11-09-2021 AST [Catalytic activity/Vol] 22 U/L 10-[address] [facility] Serum or plasma calcium victor m urement (mass/volume)Ordered By: Geeta Dumont on 11-09-2021 Calcium [Mass/Vol] 10.7 mg/dL 8.2-10.2 [facility] Serum or plasma chloride meenakshi surement (moles/volume)Ordered By: Geeta Dumont on 11-09-2021 Chloride [Moles/Vol] 101 mmol/L 95-114 [facility] Serum or plasma glucose victor m urement (mass/volume)Ordered By: Geeta Dumont on 11-09-2021 Glucose [Mass/Vol] 98 mg/dL 70-100 [facility] Comment on above: ADA recommended refe [...] on 11-09-2021 Potassium [Moles/Vol] 4.5 mmol/L 3.5-5.1 [facility] Serum or plasma sodium measu rement (moles/volume)Ordered By: Geeta Dumont on 11-09-2021 Sodium [Moles/Vol] 137 mmol/L 136-146 [facility] Serum or plasma total biliru bin measurement (mass/volume)Ordered By: Geeta Dumont on 11-09-2021 Bilirubin [Mass/Vol] 0.6 mg/dL 0.3-1.2 [facility] Serum or plasma total carbon dioxide measurement (moles/volume)Ordered By: Geeta Dumont on 11-09-2021 CO2 [Moles/Vol] 29.2 mmol/L 22.0-30.0 [facility] Serum or plasma urea nitroge n measurement (mass/volume)Ordered By: Geeta Dumont on 11-09-2021 Urea nitrogen [Mass/Vol] 25 mg/dL 12-[address] [facility] Basic Metabolic Profon 10-27 (cont.) Normal [facility] Comment on above: Result Comment: Aver age GFR for 60-69 years old: 85 mL/min/1.73sq m Chronic Kidney Disease: <60 mL/min/1.73sq m Kidney failure: <15 mL/min/1.73sq m eGFR calculated using average adult body mass. Additional eGFR calculator available at: http://[email or web address].Time Warden/multiple_crcl_2012.htm Performed By: #### G LYHGB, IOCAL #### [address] [address] Embedded Case Manager: Chi Layne MD #### BMP, CBC #### [facility] [address] [place] [address] [phone] Embedded Case Manager: Russell Sanchez MD Anion gap [Moles/Vol] 8 mmol/L Low 9-[address] [facility] Comment on above: Performed By: #### Sp LYHGB, IOCAL #### [address] [address] Embedded Case Manager: Chi Layne MD #### BMP, CBC #### [facility] [address] [place] [phone] Embedded Case Manager: Russell Sanchez MD BUN/CRE Ratio 20 Normal -20 [facility] Comment on above: Performed By: #### G LYHGB, IOCAL #### [address] [address] Embedded Case Manager: Chi Layne MD #### BMP, CBC #### [facility] [address] [place] [phone] Embedded Case Manager: Russell Sanchez MD Calcium [Mass/Vol] 10.8 mg/dL High 8.6-10.4 [facility] Comment on above: Performed By: #### G LYHGB, IOCAL #### [address] [address] Embedded Case Manager: Chi Layne MD #### BMP, CBC #### [facility] [address] [place] [phone] Embedded Case Manager: Russell Sanchez MD Chloride [Moles/Vol] 102 mmol/L Normal 98-[address] [facility] Comment on above: Performed By: #### G LYHGB, IOCAL #### [address] [address] Embedded Case Manager: Chi Layne MD #### BMP, CBC #### [facility] [address] [place] [phone] Embedded Case Manager: Russell Sanchez MD CO2 [Moles/Vol] 32 mmol/L High 20-31 [facility] Comment on above: Performed By: #### G LYHGB, IOCAL #### [address] [address] Embedded Case Manager: Chi Layne MD #### BMP, CBC #### [facility] [address] [place] [address] Embedded Case Manager: Russell Sanchez MD Creatinine [Mass/Vol] 1.20 mg/dL Normal 0.70-1.[address] [facility] Comment on above: Performed By: #### G LYHGB, IOCAL #### [address] [address] Embedded Case Manager: Chi Layne MD #### BMP, CBC #### [facility] [address] [place] [phone] Embedded Case Manager: Russell Sanchez MD GFR, Amer >60 Normal >60 [facility] Comment on above: Performed By: #### G LYHGB, IOCAL #### [address] [address] Embedded Case Manager: Cih Layne MD #### BMP, CBC #### [facility] [address] [place] [address] Embedded Case Manager: Russell Sanchez MD GFR,non Amer >60 Normal >[address] [facility] Comment on above: Performed By: #### G LYHGB, IOCAL #### [address] [address] Embedded Case Manager: Chi Layne MD #### BMP, CBC #### [facility] [address] [place] [address] Embedded Case Manager: Russell Sanchez MD Glucose [Mass/Vol] 85 mg/dL Normal 70-99 [facility] Comment on above: Performed By: #### G LYHGB, IOCAL #### [address] [address] Embedded Case Manager: Cih Layne MD #### BMP, CBC #### [facility] [address] [place] [phone] Embedded Case Manager: Russell Sanchez MD Potassium [Moles/Vol] 3.7 mmol/L Normal 3.7-5.[address] [facility] Comment on above: Performed By: #### G LYHGB, IOCAL #### [address] [address] Embedded Case Manager: Chi Layne MD #### BMP, CBC #### [facility] [address] [place] [phone] Embedded Case Manager: Russell Sanchez MD Sodium [Moles/Vol] 142 mmol/L Normal 135-144 [facility] Comment on above: Performed By: #### G LYHGB, IOCAL #### [address] [address] Embedded Case Manager: Chi Layne MD #### BMP, CBC #### [facility] [address] [place] [address] Embedded Case Manager: Russell Sanchez MD Urea nitrogen [Mass/Vol] 24 mg/dL High 8-23 [facility] Comment on above: Performed By: #### G LYHGB, IOCAL #### [address] [address] Embedded Case Manager: Chi Layne MD #### BMP, CBC #### [facility] [address] [place] [phone] Embedded Case Manager: Russell Sanchez MD CBCon 10-27-2021 Erythrocyte distribution width (RBC) [Ratio] 15.0 % High 11.8-14.4 [facility] Comment on above: Performed By: #### G LYHGB, IOCAL #### [address] [address] Embedded Case Manager: Chi Layne MD #### BMP, CBC #### [facility] [address] [place] [phone] Embedded Case Manager: Russell Sanchez MD Hematocrit (Bld) [Volume fraction] 42.6 % Normal 40.7-50.3 [facility] Comment on above: Performed By: #### G LYHGB, IOCAL #### [address] [address] Embedded Case Manager: Chi Layne MD #### BMP, CBC #### [facility] [address] [place] [address] Embedded Case Manager: Russell Sanchez MD Hemoglobin (Bld) [Mass/Vol] 13.6 g/dL Normal 13.0-17.0 [facility] Comment on above: Performed By: #### G LYHGB, IOCAL #### [address] [address] Embedded Case Manager: Chi Layne MD #### BMP, CBC #### [facility] [address] [place] [phone] Embedded Case Manager: Russell Sanchez MD MCH (RBC) [Entitic mass] 28.4 pg Normal 25.2-33.5 [facility] Comment on above: Performed By: #### G LYHGB, IOCAL #### [address] [address] Embedded Case Manager: Chi Layne MD #### BMP, CBC #### [facility] [address] [place] [address] Embedded Case Manager: Rsusell Sanchez MD MCHC (RBC) [Mass/Vol] 31.9 g/dL Normal 28.4-34.[address] [facility] Comment on above: Performed By: #### G LYHGB, IOCAL #### [address] [address] Embedded Case Manager: Chi Layne MD #### BMP, CBC #### [facility] [address] [place] [address] Embedded Case Manager: Russell Sanchez MD MCV (RBC) [Entitic vol] 88.9 fL Normal 82.6-102.9 [facility] Comment on above: Performed By: #### G LYHGB, IOCAL #### [address] [address] Embedded Case Manager: Chi Layne MD #### BMP, CBC #### [facility] [address] [place] [address] Embedded Case Manager: Russell Sanchez MD NRBC Automated 0.0 per 100 WBC Normal 0.0 [facility] Comment on above: Performed By: #### G LYHGB, IOCAL #### [address] [address] Embedded Case Manager: Chi Layne MD #### BMP, CBC #### [facility] [address] [place] [address] Embedded Case Manager: Russell Sanchez MD Platelet mean volume (Bld) [Entitic vol] 9.2 fL Normal 8.1-13.5 [facility] Comment on above: Performed By: #### G LYHGB, IOCAL #### [address] [address] Embedded Case Manager: Chi Layne MD #### BMP, CBC #### [facility] [address] [place] [address] Embedded Case Manager: Russell Sanchez MD Platelets (Bld) [#/Vol] 203 10*3/uL Normal 138-453 [facility] Comment on above: Performed By: #### G LYHGB, IOCAL #### [address] [address] Embedded Case Manager: Chi Layne MD #### BMP, CBC #### [facility] [address] [place] [address] Embedded Case Manager: Russell Sanchez MD RBC (Bld) [#/Vol] 4.79 10*6/uL Normal 4.21-5.77 [facility] Comment on above: Performed By: #### G LYHGB, IOCAL #### [facility] [address] [place] [address] Embedded Case Manager: Chi Layne MD #### BMP, CBC #### [facility] [address] [place] [address] Embedded Case Manager: Russell Sanchez MD WBC (Bld) [#/Vol] 5.8 10*3/uL Normal 3.5-11.3 [facility] Comment on above: Performed By: #### G LYHGB, IOCAL #### [address] [address] Embedded Case Manager: Chi Layne MD #### BMP, CBC #### [facility] [address] [place] [address] Embedded Case Manager: Russell Sanchez MD Calcium, Ionicon 10-27-2021 Calcium [Moles/Vol] 1.44 mmol/L High 1.13-1.[address] [facility] Comment on above: Performed By: #### G LYHGB, IOCAL #### [address] [address] Embedded Case Manager: Chi Layne MD #### BMP, CBC #### [facility] [address] [place] [address] Embedded Case Manager: Russell Sanchez MD Hemoglobin A1Con 10-27-2021 Glucose [Mass/Vol] 137 mg/dL Normal [facility] Comment on above: Result Comment: The ADA and AACC recommend providing the estimated average glucose result to permit better patient understanding of their HBA1c result. Performed By: #### G LYHGB, IOCAL #### [address] [address] Embedded Case Manager: Chi Layne MD #### BMP, CBC #### [facility] [address] [facility]. [place], [place] [phone] Embedded Case Manager: Russell Sanchez MD HbA1c (Bld) [Mass fraction] 6.4 % High 4.0-6.0 [facility] Comment on above: Performed By: #### G LYHGB, IOCAL #### [facility] [address] [place] [address] Embedded Case Manager: Chi Layne MD #### BMP, CBC #### [facility] [address] [facility] [place], [place] [phone] Embedded Case Manager: Russell Sanchez MD XR CHEST (2 [...] Vivian Padron MD 10/27/21 Final result Normal [facility] Linear bibasilar opa city, likely atelectasis. [facility] RIS CONSOLIDATED EXAMINATION: TWO XRAY VIEWS OF THE [...] Multilevel degenerative changes of the thoracic spine. [facility] RIS CONSOLIDATED Vivian Padron MD - 10/27/2021 EXAMINATION: [...] spine. IMPRESSION: Linear bibasilar opacity, likely atelectasis. [employer]: Radiology Study observation (narrative) [employer]: XR CHEST (2 VW)Ordered By: Hyun Padron on 10-27-2021 [employer]: Creatinine and Glomerular fi ltration rate.predicted panel (S/P/Bld)Ordered By: Shirley Persaud on 09-27-2021 Creatinine [Mass/Vol] 1.32 mg/dL 0.64-1.27 [facility] Estimated glomerular filtrat ion rate (GFR) non- AmericanOrdered By: Shirley Persaud on 09-27-2021 GFR/1.73 sq M.predicted among non-blacks MDRD (S/P/Bld) [Vol rate/Area] 55 mL/Min [facility] No Panel InformationOrdered By: Shirley Persaud on 09-27-2021 Estimated GFR () > 60 mL/Min [facility] Comment on above: GFR estimated refere nce range: According to KDOQI guidelines, <60 ml/min/1.73m2 is sufficient to diagnose a patient with chronic kidney disease. Pharmacy Creatinine Clearance (Chem N/A [facility] Serum or plasma calcium victor m urement (mass/volume)Ordered By: Shirley Persaud on 09-27-2021 Calcium [Mass/Vol] 11.1 mg/dL 8.2-10.2 [facility] Serum or plasma chloride meenakshi surement (moles/volume)Ordered By: Shirley Persaud on 09-27-2021 Chloride [Moles/Vol] 99 mmol/L 95-114 [facility] Serum or plasma glucose victor m urement (mass/volume)Ordered By: Shirley Persaud on 09-27-2021 Glucose [Mass/Vol] 106 mg/dL 70-100 [facility] Comment on above: ADA recommended refe [...] on 09-27-2021 Potassium [Moles/Vol] 4.4 mmol/L 3.5-5.1 [facility] Serum or plasma sodium measu rement (moles/volume)Ordered By: Shirley Persaud on 09-27-2021 Sodium [Moles/Vol] 136 mmol/L 136-146 [facility] Serum or plasma total carbon dioxide measurement (moles/volume)Ordered By: Shirley Persaud on 09-27-2021 CO2 [Moles/Vol] 27.4 mmol/L 22.0-30.0 [facility] Serum or plasma urea nitroge n measurement (mass/volume)Ordered By: Shirley Persaud on 09-27-2021 Urea nitrogen [Mass/Vol] 36 mg/dL 9-[address] [facility] Bacteria identified Anaer cx Nom (Unsp spec)Ordered By: ALEX Begum on 09-25-2021 Anaerobic microbial culture No Anaerobes Isolated [address] [facility] Basophils Auto (Bld) [#/Vol] Ordered By: Shirley Persaud on 09-24-2021 Basophils (Bld) [#/Vol] 0.1 10*3/uL 0.0-0.[address] [facility] Basophils/100 WBC Auto (Bld) Ordered By: Shirley Persaud on 09-24-2021 Basophils/100 WBC (Bld) 0.8 % . [facility] Blood hemoglobin measurement (mass/volume)Ordered By: Shirley Persaud on 09-24-2021 Hemoglobin (Bld) [Mass/Vol] 12.6 g/dL 13.0-17.[address] [facility] Blood leukocytes automated c ount (number/volume)Ordered By: Shirley Persaud on 09-24-2021 WBC (Bld) [#/Vol] 6.7 10*3/uL 4.5-11.0 [facility] Creatinine and Glomerular fi ltration rate.predicted panel (S/P/Bld)Ordered By: Shirley Persaud on 09-24-2021 Creatinine [Mass/Vol] 1.32 mg/dL 0.64-1.27 [facility] Eosinophils Auto (Bld) [#/Vo l]Ordered By: Shirley Persaud on 09-24-2021 Eosinophils (Bld) [#/Vol] 0.4 10*3/uL 0.0-0.[address] [facility] Eosinophils/100 WBC Auto (Bl d)Ordered By: Shirley Persaud on 09-24-2021 Eosinophils/100 WBC (Bld) 6.0 % . [facility] Erythrocyte distribution wid th Auto (RBC) [Ratio]Ordered By: Shirley Persaud on 09-24-2021 Erythrocyte distribution width (RBC) [Ratio] 14.5 % 12.0-14.[address] [facility] Estimated glomerular filtrat ion rate (GFR) non- AmericanOrdered By: Shirley Persaud on 09-24-2021 GFR/1.73 sq M.predicted among non-blacks MDRD (S/P/Bld) [Vol rate/Area] 55 mL/Min [facility] Glucose Glucometer (BldC) [M ass/Vol]Ordered By: Shirley Persaud on 09-24-2021 Glucose [Mass/Vol] 124 mg/dL [facility] Comment on above: Random Glucose Refer ence Range is dependent on time and content of last meal. Glucose of more than 200 mg/dL in a nonstressed, ambulatory subject supports the diagnosis of Diabetes Mellitus. Hematocrit Auto (Bld) [Volum e fraction]Ordered By: Shirley Persaud on 09-24-2021 Hematocrit (Bld) [Volume fraction] 37.6 % 38.8-50.[address] [facility] Laboratory - Hematology and Cell countsOrdered By: Shirley Persaud on 09-24-2021 Nucleated RBC/100 WBC (Bld) [Ratio] 0.0 % 0-0.[address] [facility] Lymphocytes Auto (Bld) [#/Vo l]Ordered By: Shirley Persaud on 09-24-2021 Lymphocytes (Bld) [#/Vol] 0.6 10*3/uL 1.00-4.[address] [facility] Lymphocytes/100 WBC Auto (Bl d)Ordered By: Shirley Persaud on 09-24-2021 Lymphocytes/100 WBC (Bld) 8.9 % . [facility] MCH Auto (RBC) [Entitic mass ]Ordered By: Shirley Persaud on 09-24-2021 MCH (RBC) [Entitic mass] 28.8 pg 27.5-35.[address] [facility] MCHC Auto (RBC) [Mass/Vol]Or dered By: Shirley Persaud on 09-24-2021 MCHC (RBC) [Mass/Vol] 33.7 g/dL 32.5-35.6 [facility] MCV Auto (RBC) [Entitic vol] Ordered By: Shirley Persaud on 09-24-2021 MCV (RBC) [Entitic vol] 85.7 fL 83.5-[address] [facility] Monocytes Auto (Bld) [#/Vol] Ordered By: Shirley Persaud on 09-24-2021 Monocytes (Bld) [#/Vol] 0.7 10*3/uL 0.0-0.[address] [facility] Monocytes/100 WBC Auto (Bld) Ordered By: Shirley Persaud on 09-24-2021 Monocytes/100 WBC (Bld) 10.9 % . [facility] Neutrophils Auto (Bld) [#/Vo l]Ordered By: Shirley Persaud on 09-24-2021 Neutrophils (Bld) [#/Vol] 4.9 10*3/uL 1.8-7.[address] [facility] Neutrophils/100 WBC Auto (Bl d)Ordered By: Shirley Persaud on 09-24-2021 Neutrophils/100 WBC (Bld) 73.4 % . [facility] No Panel InformationOrdered By: Shirley Persaud on 09-24-2021 Bedside Glucose Comment Glu2: cleaned meter [facility] Estimated GFR () > 60 mL/Min [facility] Comment on above: GFR estimated refere nce range: According to KDOQI guidelines, <60 ml/min/1.73m2 is sufficient to diagnose a patient with chronic kidney disease. Pharmacy Creatinine Clearance (Chem 69.[address] [facility] Platelet mean volume Auto (B ld) [Entitic vol]Ordered By: Shirley Persaud on 09-24-2021 Platelet mean volume (Bld) [Entitic vol] 6.8 fL 6.6-10.[address] [facility] Platelets Auto (Bld) [#/Vol] Ordered By: Shirley Persaud on 09-24-2021 Platelets (Bld) [#/Vol] 277 10*3/uL 150-[address] [facility] RBC Auto (Bld) [#/Vol]Ordere d By: Shirley Persaud on 09-24-2021 RBC (Bld) [#/Vol] 4.38 10*6/uL 3.90-5.60 [facility] Serum or plasma calcium victor m urement (mass/volume)Ordered By: Shirley Persaud on 09-24-2021 Calcium [Mass/Vol] 10.2 mg/dL 8.2-10.2 [facility] Serum or plasma chloride meenakshi surement (moles/volume)Ordered By: Shirley Persaud on 09-24-2021 Chloride [Moles/Vol] 99 mmol/L 95-114 [facility] Serum or plasma glucose victor m urement (mass/volume)Ordered By: Shirley Persaud on 09-24-2021 Glucose [Mass/Vol] 109 mg/dL 70-100 [facility] Comment on above: ADA recommended refe rence range Random Glucose Reference Range is dependent on time and content of last meal. Glucose of more than 200 mg/dL in a nonstressed, ambulatory subject supports the diagnosis of Diabetes Mellitus. Serum or plasma potassium me asurement (moles/volume)Ordered By: Shirley Persaud on 09-24-2021 Potassium [Moles/Vol] 3.7 mmol/L 3.5-5.1 [facility] Comment on above: Delta: 5.4 on Serum or plasma sodium measu rement (moles/volume)Ordered By: Shirley Persaud on 09-24-2021 Sodium [Moles/Vol] 137 mmol/L 136-146 [facility] Serum or plasma total carbon dioxide measurement (moles/volume)Ordered By: Shirley Persaud on 09-24-2021 CO2 [Moles/Vol] 30.2 mmol/L 22.0-30.0 [facility] Serum or plasma urea nitroge n measurement (mass/volume)Ordered By: Shirley Persaud on 09-24-2021 Urea nitrogen [Mass/Vol] 31 mg/dL 9-[address] [facility] ABO and Rh group post transf usion reaction Nom (Bld)Ordered By: ALEX Begum on 09-23-2021 Microscopic observation Gram stain Nom (Unsp spec) [facility] Bacteria identified Aer cx N om (Unsp spec)Ordered By: ALEX Lal on 09-23-2021 Superficial Wound Culture Staphylococcus aureus [facility] Serum or plasma trough vanco mycin levelOrdered By: Cindy Donald on 09-23-2021 Vancomycin trough [Mass/Vol] 24.0 ug/mL 10.0-20.[address] [facility] Comment on above: Last dose: - C reactive protein [Mass/vol ume] in Serum or PlasmaOrdered By: Shirley Persaud on 09-22-2021 CRP [Mass/Vol] 5.0 mg/dL 0.0-1.[address] [facility] Peak vancomycin levelOrdered By: Cindy Donald on 09-22-2021 Vancomycin peak [Mass/Vol] 44.1 ug/mL 20.0-40.[address] [facility] Comment on above: Last dose: - Phosphate [Mass/volume] in S elmira or PlasmaOrdered By: Shirley Persaud on 09-22-2021 Phosphate [Mass/Vol] 3.2 mg/dL 2.5-4.6 [facility] Serum or plasma intact parat hyroid hormone measurement (mass/volume)Ordered By: Mohini Hanna on 09-22-2021 Parathyrin.intact [Mass/Vol] 79.1 pg/mL [address] [facility] COVID-19 Positive/NegativeOr dered By: Cindy Donald on 09-21-2021 SARS-CoV-2 (COVID-19) N gene EMILY+probe Ql (Resp) Negative Negative [facility] Comment on above: Testing for SARS-CoV -2 by RT-PCR This test was developed and its performance characteristics determined by [employer] and validated at the [facility]. This test has not been FDA cleared [...] on 09-20-2021 Albumin [Mass/Vol] 3.3 g/dL 3.2-5.5 [facility] Globulin Calc (S) [Mass/Vol] Ordered By: ALEX Lal on 09-20-2021 Globulin (S) [Mass/Vol] 4.1 g/dL [facility] Protein [Mass/volume] in Ser um or PlasmaOrdered By: CWS Aledn Lal on 09-20-2021 Protein [Mass/Vol] 7.4 g/dL 6.1-7.9 [facility] Serum or plasma alanine bartholomew otransferase measurement without P-5'-P (enzymatic activiOrdered By: [facility] Alden Lal on 09-20-2021 ALT No additional P-5'-P [Catalytic activity/Vol] 21 U/L 10-[address] [facility] Serum or plasma albumin/glob ulin mass ratioOrdered By: [facility] Alden Lal on 09-20-2021 Albumin/Globulin [Mass ratio] 0.8 {ratio} [facility] Serum or plasma alkaline dorothea sphatase measurement (enzymatic activity/volume)Ordered By: [facility] Alden Lal on 09-20-2021 ALP [Catalytic activity/Vol] 110 U/L 32-[address] [facility] Serum or plasma aspartate am inotransferase measurement (enzymatic activity/volume)Ordered By: [facility] Alden Lal on 09-20-2021 AST [Catalytic activity/Vol] 26 U/L 10-[address] [facility] Serum or plasma total biliru bin measurement (mass/volume)Ordered By: [facility] Alden Lal on 09-20-2021 Bilirubin [Mass/Vol] 0.6 mg/dL 0.3-1.2 [facility] US Venous, Unilat, [place] 09-19-2021 [...] calf veins. Report reported and signed by Fred Kidd on 09/19/2021 1533 Normal [facility] Albumin [Mass/volume] in Ser um or PlasmaOrdered By: Joana Farooq on 09-06-2021 Albumin [Mass/Vol] 3.7 g/dL 3.2-5.5 [facility] Basophils Auto (Bld) [#/Vol] Ordered By: Joana Farooq on 09-06-2021 Basophils (Bld) [#/Vol] 0.0 10*3/uL 0.0-0.[address] [facility] Basophils/100 WBC Auto (Bld) Ordered By: Joana Farooq on 09-06-2021 Basophils/100 WBC (Bld) 0.8 % . [facility] Blood hemoglobin measurement (mass/volume)Ordered By: Joana Farooq on 09-06-2021 Hemoglobin (Bld) [Mass/Vol] 13.8 g/dL 13.0-17.[address] [facility] Blood leukocytes automated c ount (number/volume)Ordered By: Joana Farooq on 09-06-2021 WBC (Bld) [#/Vol] 5.9 10*3/uL 4.5-11.0 [facility] Cholesterol [Mass/volume] in Serum or PlasmaOrdered By: Stephanie Burgess on 09-06-2021 Cholesterol [Mass/Vol] 154 mg/dL 140-[address] [facility] Comment on above: Chol less than 200 m g/dl low risk Chol 201-239 mg/dl borderline risk Chol 240 mg/dl and greater high risk Cholesterol in LDL Calc [Mas s/Vol]Ordered By: Stephanie Burgess on 09-06-2021 Cholesterol in LDL [Mass/Vol] 93 mg/dL 0-[address] [facility] Comment on above: LDL ATP III CLASSIFI CATION LDL less than 100 mg/dL Optimal LDL 100-129 mg/dL Near or above optimal LDL 130-159 mg/dL Borderline high LDL 160-189 mg/dL High LDL greater than 189 mg/dL Very high Cholesterol in VLDL Calc [Ma ss/Vol]Ordered By: Stephanie Burgess on 09-06-2021 Cholesterol in VLDL [Mass/Vol] 15 mg/dL [facility] Creatinine and Glomerular fi ltration rate.predicted panel (S/P/Bld)Ordered By: Joana Farooq on 09-06-2021 Creatinine [Mass/Vol] 1.51 mg/dL 0.64-1.27 [facility] Eosinophils Auto (Bld) [#/Vo l]Ordered By: Joana Farooq on 09-06-2021 Eosinophils (Bld) [#/Vol] 0.4 10*3/uL 0.0-0.[address] [facility] Eosinophils/100 WBC Auto (Bl d)Ordered By: Joana Farooq on 09-06-2021 Eosinophils/100 WBC (Bld) 6.4 % . [facility] Erythrocyte distribution wid th Auto (RBC) [Ratio]Ordered By: Joana Farooq on 09-06-2021 Erythrocyte distribution width (RBC) [Ratio] 15.0 % 12.0-14.[address] [facility] Estimated glomerular filtrat ion rate (GFR) non- AmericanOrdered By: Joana Farooq on 09-06-2021 GFR/1.73 sq M.predicted among non-blacks MDRD (S/P/Bld) [Vol rate/Area] 47 mL/Min [facility] Globulin Calc (S) [Mass/Vol] Ordered By: Joana Farooq on 09-06-2021 Globulin (S) [Mass/Vol] 2.8 g/dL [facility] Hematocrit Auto (Bld) [Volum e fraction]Ordered By: Joana Farooq on 09-06-2021 Hematocrit (Bld) [Volume fraction] 41.6 % 38.8-50.[address] [facility] Laboratory - Chemistry and C hemistry - challengeon 09-06-2021 Cholesterol [Mass/Vol] 154\S\154 Normal 140-200 [facility] [address] DO Work Phone: Comment on above: Chol less than 200 m g/dl low risk Chol 201-239 mg/dl borderline risk Chol 240 mg/dl and greater high risk Cholesterol in LDL [Mass/Vol] 93\S\93 Normal 0-100 [facility] [address] DO Work Phone: Comment on above: LDL ATP III CLASSIFI CATION LDL less than 100 mg/dL Optimal LDL 100-129 mg/dL Near or above optimal LDL 130-159 mg/dL Borderline high LDL 160-189 mg/dL High LDL greater than 189 mg/dL Very high Laboratory - Hematology and Cell countsOrdered By: Joana Farooq on 09-06-2021 Nucleated RBC/100 WBC (Bld) [Ratio] 0.1 % 0-0.[address] [facility] Lymphocytes Auto (Bld) [#/Vo l]Ordered By: Joana Farooq on 09-06-2021 Lymphocytes (Bld) [#/Vol] 0.6 10*3/uL 1.00-4.[address] [facility] Lymphocytes/100 WBC Auto (Bl d)Ordered By: Joana Farooq on 09-06-2021 Lymphocytes/100 WBC (Bld) 10.8 % . [facility] MCH Auto (RBC) [Entitic mass ]Ordered By: Joana Farooq on 09-06-2021 MCH (RBC) [Entitic mass] 29.1 pg 27.5-35.[address] [facility] MCHC Auto (RBC) [Mass/Vol]Or dered By: Joana Farooq on 09-06-2021 MCHC (RBC) [Mass/Vol] 33.1 g/dL 32.5-35.6 [facility] MCV Auto (RBC) [Entitic vol] Ordered By: Joana Farooq on 09-06-2021 MCV (RBC) [Entitic vol] 87.9 fL 83.5-[address] [facility] Monocytes Auto (Bld) [#/Vol] Ordered By: Joana Farooq on 09-06-2021 Monocytes (Bld) [#/Vol] 0.7 10*3/uL 0.0-0.[address] [facility] Monocytes/100 WBC Auto (Bld) Ordered By: Joana Farooq on 09-06-2021 Monocytes/100 WBC (Bld) 11.2 % . [facility] Neutrophils Auto (Bld) [#/Vo l]Ordered By: Joana Farooq on 09-06-2021 Neutrophils (Bld) [#/Vol] 4.1 10*3/uL 1.8-7.[address] [facility] Neutrophils/100 WBC Auto (Bl d)Ordered By: Joana Farooq on 09-06-2021 Neutrophils/100 WBC (Bld) 70.8 % . [facility] No Panel Informationon 09-06 3.3\S\3.3 Normal <5.0 [facility] DO Work Phone: Comment on above: PERFORMED BY:[facility] [place], [place] [id number] MEDICAL DIRECTORAPRIL VEGA M.D. 15\S\15 Normal [facility] y 250 DO Work Phone: 75\S\75 Normal 35-149 [facility] y 250 DO Work Phone: Comment on above: TRIG ATP III CLASSIF ICATION TRIG less than 150 mg/dL Normal TRIG 150-199 mg/dL Borderline high TRIG 200-500 mg/dL High TRIG greater than 500 mg/dL Very high Standard traceable to the Center for Disease Conrtrol and Prevention (CDC) test method. 46\S\46 Normal 29-71 [facility] y 250 DO Work Phone: Comment on above: HDL CHOL ATP-III CLA SSIFICATION Cardiovascular Risk HDL > or equal to 60 mg/dL LOW HDL < 40 mg/dL HIGH No Panel InformationOrdered By: Joana Farooq on 09-06-2021 Estimated GFR () 57 mL/Min [facility] Comment on above: GFR estimated refere nce range: According to KDOQI guidelines, <60 ml/min/1.73m2 is sufficient to diagnose a patient with chronic kidney disease. Pharmacy Creatinine Clearance (Chem N/A [facility] Platelet mean volume Auto (B ld) [Entitic vol]Ordered By: Joana Farooq on 09-06-2021 Platelet mean volume (Bld) [Entitic vol] 7.4 fL 6.6-10.[address] [facility] Platelets Auto (Bld) [#/Vol] Ordered By: Joana Farooq on 09-06-2021 Platelets (Bld) [#/Vol] 227 10*3/uL 150-[address] [facility] Protein [Mass/volume] in Ser um or PlasmaOrdered By: Joana Farooq on 09-06-2021 Protein [Mass/Vol] 6.5 g/dL 6.1-7.9 [facility] RBC Auto (Bld) [#/Vol]Ordere d By: Joana Farooq on 09-06-2021 RBC (Bld) [#/Vol] 4.73 10*6/uL 3.90-5.60 [facility] Serum or plasma alanine bartholomew otransferase measurement without P-5'-P (enzymatic activiOrdered By: Joana Farooq on 09-06-2021 ALT No additional P-5'-P [Catalytic activity/Vol] 17 U/L 10-[address] [facility] Serum or plasma albumin/glob ulin mass ratioOrdered By: Joana Farooq on 09-06-2021 Albumin/Globulin [Mass ratio] 1.3 {ratio} [facility] Serum or plasma alkaline dorothea sphatase measurement (enzymatic activity/volume)Ordered By: Joana Farooq on 09-06-2021 ALP [Catalytic activity/Vol] 84 U/L 32-[address] [facility] Serum or plasma aspartate am inotransferase measurement (enzymatic activity/volume)Ordered By: Joana Farooq on 09-06-2021 AST [Catalytic activity/Vol] 25 U/L 10-[address] [facility] Serum or plasma calcium victor m urement (mass/volume)Ordered By: Joana Farooq on 09-06-2021 Calcium [Mass/Vol] 10.4 mg/dL 8.2-10.2 [facility] Serum or plasma chloride meenakshi surement (moles/volume)Ordered By: Joana Farooq on 09-06-2021 Chloride [Moles/Vol] 101 mmol/L 95-114 [facility] Serum or plasma glucose victor m urement (mass/volume)Ordered By: Joana Farooq on 09-06-2021 Glucose [Mass/Vol] 118 mg/dL 70-100 [facility] Comment on above: ADA recommended refe rence range Random Glucose Reference Range is dependent on time and content of last meal. Glucose of more than 200 mg/dL in a nonstressed, ambulatory subject supports the diagnosis of Diabetes Mellitus. Serum or plasma high density lipoprotein (HDL) cholesterol measurementOrdered By: Stephanie Burgess on 09-06-2021 Cholesterol in HDL [Mass/Vol] 46 mg/dL 29-[address] [facility] Comment on above: HDL CHOL ATP-III CLA SSIFICATION Cardiovascular Risk HDL > or equal to 60 mg/dL LOW HDL < 40 mg/dL HIGH Serum or plasma potassium me asurement (moles/volume)Ordered By: Joana Farooq on 09-06-2021 Potassium [Moles/Vol] 4.3 mmol/L 3.5-5.1 [facility] Serum or plasma sodium measu rement (moles/volume)Ordered By: Joana Farooq on 09-06-2021 Sodium [Moles/Vol] 140 mmol/L 136-146 [facility] Serum or plasma total biliru bin measurement (mass/volume)Ordered By: Joana Farooq on 09-06-2021 Bilirubin [Mass/Vol] 0.8 mg/dL 0.3-1.2 [facility] Serum or plasma total carbon dioxide measurement (moles/volume)Ordered By: Joana Farooq on 09-06-2021 CO2 [Moles/Vol] 26.5 mmol/L 22.0-30.0 [facility] Serum or plasma total choles terol/high density lipoprotein (HDL) cholesterol mass ratOrdered By: Stephanie Burgess on 09-06-2021 Cholesterol.total/Cho lesterol in HDL [Mass ratio] 3.3 {ratio} <5.[address] [facility] Serum or plasma urea nitroge n measurement (mass/volume)Ordered By: Joana Farooq on 09-06-2021 Urea nitrogen [Mass/Vol] 30 mg/dL 9-[address] [facility] Serum or plasma uric acid me asurement (mass/volume)Ordered By: Joana Farooq on 09-06-2021 Urate [Mass/Vol] 4.8 mg/dL 2.6-7.2 [facility] Triglyceride [Mass/volume] i n Serum or PlasmaOrdered By: Stephanie Burgess on 09-06-2021 Triglyceride [Mass/Vol] 75 mg/dL 35-[address] [facility] Comment on above: TRIG ATP III CLASSIF ICATION TRIG less than 150 mg/dL Normal TRIG 150-199 mg/dL Borderline high TRIG 200-500 mg/dL High TRIG greater than 500 mg/dL Very high Standard traceable to the Center for Disease Conrtrol and Prevention (CDC) test method. Provider Orderson 09-04-2021 Provider Orders [id number] [facility] Coding Summaryon 08-31-2021 Coding Summary HTMLBase 64 EtsfpokwGVy2lJd+PGhlYWQ+PE 8DTUQtI47alEQouW9EN1gUTN4S TPOBNIHKZF0INQ8wxHS3GYchQ9 VybiAv LepspRRiFM64GZu3ABJ9kOqtQU boyD1suYAnT9y6AtGqHR82aO92 QBbhLSXxVjA9UmGfjzncbMKh S5kjEoVtiNGvNsn+PHRhYmxlIH oxMTAdOGmtBNLlLbAxiPdzFE0r Ky4vYYSoOJHknOsiiVMqBeWv r5czNOYaNYfrYR0pqTdjQ1CmkY T4IACjl0o0Sd34jLQ+PHRkIHN0 vKvtIOkmn566OuZgm2nmBLE2 nXXfFEdoPWF3P11vm5V1KQKpKT ToGXD1wAQ5jI3dgFvcblveP4Wt sWLaMeW2EVP2uQDseZ3jtZeh cjvlaG7mEro+S03BBU6QYXUYDE 7KSif7K9RcKxrdkZL+YS22XDCs FQ24pOHkiJDfk0puiZm9DsGf EMVvVUB7jFftOWtct9BpPWRaW9 1rwIXwp3T5ZXFbrCubdTJiEiJk kLS1oM8dLYcdebiep8vlxoop Ozcne8ghwp41tS26E65dJWzeKN TiLJN0SWDuAIUdiWatee0pmR2r Ii8+TArvc8toq8jfmTt9RcUr TVLyqoDipBjlNWQ9d3NbAy00J6 KllFvrg8ToEyk7qj94nLTxr0A4 fAR8IOklZIRrkK6vWHfuAkN3 EOHdJaGtlW30uJTrQLkoKe4ihY zllMxoDS0gRJZnddwrAWDvbG6h DSVlcNTryMisQZ3uZSBqpegm u626LwUsHLZ1MCXzfFXjO6ZlhI 5tDbAsGWHhXPRrY5MshPAkGWkk H606UZivCcU3XFVuekHeG8Zo QVMbvFzkJmO1c4C2Uk8Ho9Rquo xfETA4CIomAFW0BeG2FtBaYxE5 Y6SjWwv3JLZwtRfuFJ4cG3We MITmbnqyecsgvAP2MVFoBLJjxH 65nXPlEFbeKy7np4C9x703QAHl MZNgkM33Lc4nfZjhYIJwbAXS xJ6efcgzr6iigvjuXzJlCRIgTK w4JWz7AAQxcXdpQfVrKRP7KtR0 DPF7wNMaiY5ppSkinvnyoN9j Oyc+A75esL7dDAD7BDS1cmxrOT HtzeLhRC36QW33Z2UpYncpeRFz bGU+ZLWydsGhzMsfQG1cJjTy n1tym8ZoAElvE2OdKKYfEIbzZu g3FBXvZMH1jXF3yL2jYYAlETpz l6H7iWE7T2NtvzXftn9ue2at UZOdXUuwT63gaUPca6U7AUGznX C5FPAlrJqzZiAahR35For+PGNv qNxrp1OmVocpu3gdf4lsiQz1 ViXsFZFhflDpjMfbCUP9t2LtBb 26O25zUAlcJADyQORcZLLgAIVo pHxalg9fuP2wBi3+PGNvbCB3 fYG1uI5wKNEfRxK8QWnaY212Nu GlwGGvOofsu3pqj0ntiTy6DgYo DLGnqoEmrUyvNED1m3NhAa60 V38vIEcqBLNgTZQxCVEqIIXntY xxzb0crH9xHv2+SP9xk7zgxc07 mK77nAR+PAVrXUL0mUykBQqb NMYhfO3wAZsaUeY7KODzJsPgvX 77nRLoRZfsHv3rcIalrPjcGP2k NFZcjukhl899QaNam5rcQQCu fXKyZDfgKZK3L23dq7K0CGBbFO OwZGO7xDG6zO1qtGxeuncjuIWi fXopsvVlxLfzPCloUBslT264 IHRvcDsnPlBhdGllbnQgTmFtZT u8B7BuMci3KTTwxSiaVM8imLDp WKswEt7gsXfcwFcvAY2qLENb jwmbm892GfPow2pvQJAjxZSzHU eoXKP7Z11qf3M0HMDkQHRtVNH3 wTQ2hP2idWfjalsagXWukZmz ziIddVmdUNxjCIcgP325TFDzvY hjCxHglqGdGFGvmRE9QS51XW17 kZZsp6U0aTV4Y9NlEECyuknv gbhwgWP0ITWxFEIcuR63Xy6lwG ubKm9tVXKoDNK0CMQrbACuN6Hs sL8qGiWgKLKvECHqA8AjbRKx RIbfX240EWdqCkJ0MOTekfPfO2 RlIROnmYvsQeY3x6A8Yf4SJ7U2 MC43ZW41yHPet8J2fHX3Z6Dc ETKcxzkuqaprzGX5KRKqTHDteY 66Cq3iuFbnTf0xJNLwDXT5FOSr vBPzY7HgwO4hNmKxUHBdOFQh L3EleWPaERtkM245TNzfTmI9LF CorbOvQ3XeJOAarZzaLxN4h0Z9 Qh9BAMa6UQ93XS43yAAxm5C3 iMO5C0JkUIAlughxnjhyiKY7ID TuSXGwgV40Sc6glYotHz9dAXPo ANE6OLCjiTOdT0EbsE9nCrGq HNErMMZkF1CykWQjLEelL795UW cwPkF4FBYirrPrY9LuBBCmzVbh VoJ3d4C8Pt2PRRQtLF52XVU4 bUQ2KB03TF35E0PrJhljmLFwpA U+PHRhYmxlIHdpZHRoPScxMDAl WtPkrGbsOD1tUz9zJYOjHVZr yDkbaTIjKpKwp2jrBOLaPAazZZ 4ynMhuI9ZtkYW1GTZzf8g2Oc05 Z95rN3VfmIM+PZTcoHZ9cDP6 xP2iFuVgFgZ3ALstR626NgDeiW JsVrhdf7kil8ufoFt8ZrU4ARPd qbJzsAefFIH1l1SqXc20J18a IHdpZHRoPSIxNSUiIHZhbGlnbj 2dyI4nOi7+ITCrqAM4qSB0eB8i IjCiOoT1GDzlH904PsBmgSCh Hzjrr9jyd1nrmTs9PaEsBRYsnz JmnPmnMDI0y5MpDq12M1NufLbe o7RcUeo7xx44fBOlk9Z9sXZ7 P6YoWXAlcfiliJXvsBpqPN4uGA EiyvwcWWNiaJ9yRKFrE9e2IvRt EpY6YOswR3JcodD1QJRbfIOy MBewGKY7P36eh9T3MIDuFUKiQW U9rJO1wL8xoTuvdpwexYYbvVef zeXedJijIMnxQOzoW374YGKf xAuwJSHfxG5pEEFjrRFuqPmrKX 0lLKFmfycuPwHTPQHAFXBZJC6V SQyRZSKCFNN6I0DcSxo2YIHi mJghIK1mtUOcELulIc3dbEtqqH gsHE5dCTNalntsZJZzpS0bZXHr eBVsoCjpCJ9lTBYwxhdef114 LcRiZBT9QHKelHQfS6TbuP7eCe HiTDCvRBAdL4LxbPIyPYwbE612 GJxcWvL7BLCltuDfW1QoSYDm xMyfLoM0r6C7Xj5hWH9mIW9qIR L6OD80YF91kHMpd3Y5pDY7F3Ft VRNpxougitwoxDY6VGVoCVPn xA44vDInHFxsSf7di0H8v700FU OoCJSxhL39Dr2pxAgiLUCrjGAN vO3bklznk6unqcaeCtSmKLOu TNm6ZLx2UJDauFxcMeBcZTN1Kz O6JNU8uGPmmT9guKtqzeiezK1o Oyc+LeUfLDSvigS9J9SeEoi7 BMCviKjqBV5cjZHqMKbkWo8yuJ imnZrmED6zIGMxqapiFZHmwK7g VSTdyJYigQdjEL6wGAYybeoy t164IlOuPCA0TAQmpOMuN1CmgT 9wCcLbGUPmIDCxE9WexFAdQWqk T242JZdnObS1PRZsduVrV7Av OFDjmLgwGzH6q1O8Fw1SAGaYDG 61PH73iIOuq0K5eER5H9TuDSJn cbsoswuleAS7EZQkSBTquH08 eMTuHAutOo1mx6L6p779YLQqTB QjaZ75Iy8kgUinVTDjvRIZcJ5y cqlhj1nmgaxkZiZxDHUbNFv6 SEw2RMMknTgvWrXtROL1KdP2RA M3mGGseN0aqIbizsjwkG9nIkt+ AiXjwPWmjS6pRI32qAUdfUne ljZ0E8SbMqbkmQT+JE38EXDjWF 21nYPqzFJpi0fdjBd9CjJdYNBz JAR9cDhiXCubp9TcZIToY44d cQOsn8U1PQVgnVpgtAKiTzJurB V7mC9aAHktlodwc0ewktftFqhp q4asxn66aY35D85sFLikNPId EBVoXTHnYPKwaFtdvp6ifD1gJx 8+CVIfpWI6zUR8jY6tRcVuBaD0 QQyiT704AeDweFSfWgxie4xm h9ocbXn5MgMqTBPmdpQurEjiKU I4k6TiUv43M65xOUfgEXDhJCNc KMDjMEXzuPilaq8neH4xKh2+ SF3ic4pqmc02uY60cWT+PHRkIH P3iNjnYZyoFQBweE4jBJjeZfG9 MRIoTpSdmU47pFDhBQmlWe1h dKeuiGddYA3lCYIiqawmx402Hd Ozz9cpMYByjYFxHAypVCK9Y63m a4R0VXUwILXiJCN6hJR3nC9d bGlnbjogbGVmdDsgdmVydGljYW eiKXetP884ATLbdNshPzAklYKo O6axkwSOKU5oBzgibXO+PHRk QER4sDthIHtmSLKlhB2xTZSfC2 u2YjRaBxH1OAvjA8FpefY6FHFb kRVbZZBhdWVZhP1lfgcjh4hd sntrGaAyFONaXJd8FVl0KCVfzB ioQjHkHJT9CiF3LSP9rSHghT6c aWgzhuwqfA3pHel+RklOOjwv dGQ+ZUMtWAZ5iPrrXYoqFFCnaI 0hBOPhA0r5NlMuPqO6IHpdY7Tt jjY2TRAwcTGkSMTzwJKQsG6l kageh0etmrpiMbJwJQXoWCc3JM v9GHSqwCpgPiIlJFZ9CeH0OAS2 nYJxrQ6poZkhnzkcsD8vDoo+ TVJOOjwvdGQ+UBAaECI0dBlfNF qvHHEmwJ5mJXGmQ8c5KvWkMmP9 FPunR3YcheY1AYRwtOCnAWXd hOBSqW8ksbers8sllhhuHxNeHI FcZTc6UKn8HSJhtGxqGjVzUJB2 DhU1UCC3lSNcpF0qwRxjzjqp fM2bVkm+GGV1NJL0EJ67GN46J6 RyPjwvdGFibGU+PHRhYmxlIHdp LCZrNSljUFMdXmIbmKdnKB2b Ym9 (more content not included)... [facility] Consent Formson 08-29-2021 Consent Forms [id number][facility]erson 08-24-2021 Provider Orders [id number][facility] XR cervical spine 5V*on XR cervical spine 5V* [id number]) XR/XR cervical spine 5V*: Other chronic pain;Pain in right [employer] Other XR cervical spine 5V* 5 views of thecerv ical spine [employer] Other XR cervical spine 5V* HISTORY: Mid anter ior cervical spine pain. [employer] Other XR cervical spine 5V* COMPARISON: None [employer] Other XR cervical spine 5V* Straightening of c ervical lordosis. [employer] Other XR cervical spine 5V* No acute cervical spine fracture identified. [employer] Other XR cervical spine 5V* 4 mm C3-4 anteroli sthesis present. [employer] Other XR cervical spine 5V* C5-6 and C6-7 mode rate disc space and endplate spurring present. C3-4, C4-5 and C5-6 bilateral bony [employer] Other XR cervical spine 5V* neural foraminal n arrowing present. [employer] Other XR cervical spine 5V* 2 mild facet degen eration present. [employer] Other XR cervical spine 5V* The bony neurofora men are patent. [employer] Other XR cervical spine 5V* The dens is intact. [employer] Other XR cervical spine 5V* The craniocervical junction is unremarkable. [employer] Other XR cervical spine 5V* No paraspinal soft tissue abnormality seen. [employer] Other XR cervical spine 5V* XR/XR cervical spine 5V* [employer] Other XR cervical spine 5V* IMPRESSION: 4 mm C 3-4 anterolisthesis. C5-6 and C6-7 moderate spondylosis. [employer] Other XR cervical spine 5V* Impression dictate d by: Kwasi Tomlin M.D.08/22/2021 4:06 PM [employer] Other XR cervical spine 5V* Dictation Location : [place] [address] [employer] Other XR cervical spine 5V* Transcribed By: CRISTINO Staton 08/22/21 1606 [employer] Other XR cervical spine 5V* Dictated By: Kwasi Tomlin DO 08/22/21 1604 [employer] Other XR cervical spine 5V* Signed By: Nor [employer] Other XR cervical spine 5V* 08/22/21 1606 [employer] Other XR shoulder RT min 2V*on XR shoulder RT min 2V* [facility] [employer] Other XR shoulder RT min 2V* [facility] [employer] Other XR shoulder RT min 2V* [address] [place] [address] [employer] Other XR shoulder RT min 2V* [place] [id number] [employer] Other XR shoulder RT min 2V* XRay Report [employer] Other XR shoulder RT min 2V* Signed [employer] Other XR shoulder RT min 2V* Patient: Sandra Potter MR#: [id number] [employer] Other XR shoulder RT min 2V* 357 [employer] Other XR shoulder RT min 2V* : 1955 Acct:[id number] [employer] Other XR shoulder RT min 2V* Age/Sex: 66 / M ADM Date: 08/22/21 [employer] Other XR shoulder RT min 2V* Loc: [facility] Room: Type: REG [facility] [employer] Other XR shoulder RT min 2V* Attending Dr: Geeta Dumont APRN, [employer]LECT[employer]ODUCTS ENGINEER-C [employer] Other XR shoulder RT min 2V* Ordering Provider: Geeta Dumont APRN, MORTGAGE COUNSELOR [employer] Other XR shoulder RT min 2V* Date of Service: 08/22/21 [employer] Other XR shoulder RT min 2V* XR/XR shoulder RT min 2V*: Other chronic pain;Pain in right [employer] Other XR shoulder RT min 2V* shoulder;Cervical pain (nec [employer] Other XR shoulder RT min 2V* Copies to: Geeta Dumont APRN, ISABELLA [employer] Other XR shoulder RT min 2V* Right shoulder 08/22/2021. [employer] Other XR shoulder RT min 2V* CLINICAL DATA: Right shoulder pain and limited range of motion. [employer] Other XR shoulder RT min 2V* FINDINGS: 3 views of the right shoulder were obtained. [employer] Other XR shoulder RT min 2V* No acute fracture or dislocation is identified. Relatively mild degenerative changes are seen. [employer] Other XR shoulder RT min 2V* Findings include subchondral cystic changes at the glenoid. No bony erosion or destruction is [employer] Other XR shoulder RT min 2V* visualized. [employer] Other XR shoulder RT min 2V* XR/XR shoulder RT min 2V* [employer] Other XR shoulder RT min 2V* IMPRESSION: Mild degenerative changes. No acute bony abnormality. [employer] Other XR shoulder RT min 2V* Impression dictated by: Lucius Tavares Jr., M.D.08/22/2021 4:16 PM [employer] Other XR shoulder RT min 2V* Dictation Location: [place] [address] [employer] Other XR shoulder RT min 2V* Transcribed By: PWS 08/22/21 161 [employer] Other XR shoulder RT min 2V* Dictated By: Lucius Tavares Jr, MD 08/22/211612 [employer] Other XR shoulder RT min 2V* Signed By: [employer] Other XR shoulder RT min 2V* 08/22/21 161 [employer] Other Lab - Other Lab Resultson Lab - Other Lab Results [id number]#1.00[facility] Coding Summaryon 06-28-2021 Coding Summary HTMLBase 64 ZhtwnxpcPDa2dSr+PGhlYWQ+PE 8JPDQnV91qyTPccL0YR3qWKO0C YLRQMVQNZC1NMZ3bkBP5CAxiA3 VybiAv RkllfWKcWW48JUq1ZJX7zEjhVX vtqO8npLJjM1e5NqHzGN68wE31 CKwrTHSvAvM8HyBrwniorAYl U7oaUbSqvWJwUsd+PHRhYmxlIH szVVSbONfaTXJoLzZtuMrsGI6q Ox6oRMIcLVCvfJjhcNJeUyTy t7ftEROjGKocRV7waJjtQ0WguB Q9HXXeb8n3If78jSY+PHRkIHN0 nChgXXhfo423JfClg5ccNUE1 kVPvWSoxQKN7O79xw8W7WQObJG UcFJD6eDD1mJ8fpIctcdixO2Ib wFCyUpT3EWL9sKTcqL3gbTxw yqnpgO2pShk+D95WCI4PMRTQFO 3TYej0W7TpZcehfIH+KP05EFBt QV86kOMsbEGmu5lvmXs2NeAh GOHqRGL7pEiaKQlzw8LfOBRwJ6 9xjIBps3W8PBQafNqbmJNzXvZz mMT4gV7uDDgyornzi5jhbabu Zdiuq8yhuq18eD42U07eTTmeXU ZbRXW5EPCfXJCbhSuein2wjH6a Ii8+TFvmo8inb6sefEc5ZaOo HMQapmMjzYavFSZ4s0ZdZv13B0 UzoXgqr8EoVoj5ac97oEGpa0N6 tXO8ESphERGhaY7cRWiqVlN7 ERIyEyIcsW92gFBvQRazRl7lkD gtfOrrPE8nUNAgejkoQLLwjS0k KLCjnFOfwDdwZX6xFKQnwixk b619OfBoFQY2KKTunQKoR5HkuY 9fHqTuKJAoRUQxB5VlbGUpLWhh K676XJqcNiQ9WNRmaiRwE8Bi TRLmtVztYmZ0p9H1Ei2Ch3Zvck hrEQW8FVlaLES2VhEhYwVrFaZ7 R8XjHiy5GUMhqEyvGH1fP6Xg GSWivnvlbgussZQ1ZOLcUVIfmE 55sNCnFQmlDy9qs1I4l744QZTx OFDzpU29Fc3bgUbbBFYjsDJG yR0sflpfr5kkulcuHnJxVQHfMQ q5KWa6TBElfZvlPyNrDYM6BdQ1 RBX5eIBlqU7qbWamyeyezU3j Oyc+F68tiW8kRCR7ZEU6wmdlPH ZxkkKkFI76FX43M5DmEtdvtBPa bGU+IGWpudUjdPsbFJ2cNjWf r6mmb4LbCGdrO9GyOIGgZNhkSz y6PDRtMOZ5tAO0tZ0pJNCpUKmq s9E3oTB2E0KtvyXkkj0jd7ug KUPdLZxjP11eeNToy7P5HXXguB Q1EIJxbIfqUeVloY02Era+PGNv eKwsd3BhKcltc6ubc8xuwYr9 IsRzDJDxtwCjkPffCCL6w0MgOl 73H93pFCzoJRLtLFYjBSVjKISo aSidwu4abR4tWa2+PGNvbCB3 nIJ2lC0qJTTdNuG6BMwoJ335Pl PnkYVxSgajr9nxm0vtvVp8GdZe XAGwggOfnHvkYVY3e4FiMm23 E30rGXahTNCdPMZvLUTvYMWowN kwtz4zoQ2iMs2+YS5bv5ectd46 mP70fNE+GHNxIEC6aWftSLzn XIWvmJ7iHXvfUsL7FMSuGzPzlW 91sRHqUVunSd0ibKjdxMreQB6z HJOplmlxe136DrOsr3uqNYKo tUSaLQyiPFX7J63hi2N7YOPlSL SvQJT8pZQ0wB6weTakgsqucKVf nMnjnaQdzPdwBKgzRPkpJ564 IHRvcDsnPlBhdGllbnQgTmFtZT k7C9WaIfr4JKOxdUivZN8cbZAo OAzjKx2juJufxXhmEF3vREIr oibxf069IsAdi6zoJZWnuDOrBV elFTH0N24rt5K8CBAtRPDsLIA1 gXM5dP9fyMdokqjahSIwtUyx tyVsuVimIMckOCzmH645NBGujZ nlJvBnljZxOEEpvBV2WP68FM16 iMNie8H5uTQ0R5QgZOJqgypl vvmpwOO0AHPeIWQeqD40Qp0ocJ jiJo9oQOHmKSA2AVQazHDoP9Ec gN5oIeLjHQPeZZSaX7VvcZRd JRloF071CKveUiS6OXIjpuUhZ8 EvYSAuaFkzRuJ3b3T3Qw2GX7R9 XD49TQ34rJIgd7W5eNS7O0La COAonvkzbxaczET1NUZnUNOkzH 57Ch2ndKabTu3zYRTlHCT2DNQb sENyN7PdbZ1kOxCjVKQsVAGr M3HysTYpBQmsH070QVzqUaI5JE ToccRnW6WiIUDhqJvsZfL6e6H1 Xn6KIVq1IQ86OZ61lCGfq9F5 uCU5X0IoVJAqjbnszbfngAF0KZ ZgTGPocV90Ar3jnDppSx5hFGNi QTC1SFWzdSLgX5NbxT8cYoMb OZNyWODeX2ZtmMZoIHntP566BY udHrA8COPwxkCoN5WtCLBufApw KjZ0f0E3Em9QAZHaOP49OSO5 vIV5QE70LW33O6BhClueqLXinV U+PHRhYmxlIHdpZHRoPScxMDAl JiSbeTwcCU5jAo4fLPFtYOQt sKklpMWqUzYlx0dgHYNeVQbrKH 8prLsdP3OlrAR0UPNcl5n3Fb50 I81kJ3EfwFS+BZVjcQD6yIA3 jR1lTpZyJwD0AJdjW551WkUsrH VtYgaxi3xjl0gmiMu5BzS9BUBr xbKdqApsPPP1l2NcVq80D36o IHdpZHRoPSIxNSUiIHZhbGlnbj 0nnR7bRt5+JOUfqCR1qJV9gK4k MxZaKfZ1IKlfQ680MgIcdZRf Ayyeu8pbm2uyfEv8ZyOdWUIgkj JkwWskWSA1v0PyRv45N6SgrZdk h7WsMda9gp67qZJhq5Y2mFW0 Z9OrHGLenwvjbSKleBfnRW0aJE DvqgdfROHvfN4wSWObZ6i3HnIf IpH1GIroW1WdxcR0PGQluXCe IOriAEQ8U22iu7P1OKAwXEBmOF T1oIM6lZ8vyMyljbfaeVSqmXma grFdvArvQWofQQemG169SOAx mFfnEJJrtI4jFCMyvSVohSbaWD 5vWVVgbrzzZrPTXQFKIOAFEZ5G PHnRQZWZYOP1S7ReEvz9WMBw bGtbKH2sfQGuNXnoHm9awGkcxF ssET3dOSVlkxgfIDDtjE0rRURt aTBxuLiuHU8jRBCkujkso658 WmOrYJD2BIHdtJGkF4TtbU0hAm ChRDHuTAKuH1TkhGOqNEkdR758 VBmbTzQ6ETLtlkXqR7MlPFEi vPpsNmA0z2G6Zn3vGP7wXU7rKP A3WW45KC94cNXyh4K3pWW0F3Ep PUSvnlyqurxtpZQ1WPXqXVSp wJ57iGGsBNjjRk4yx7O4v472PQ GiJGMbeB43Fs2irCnjIBBfhCKK iU7fywech2lvtresXoFqMYLa KOd9LAp4VYHsbFieAxJnESZ6Yv I8CYV3kSZobQ0csLskhtbayV8b Oyc+YuUuOCUaxlH9U3ScKgm7 XWQmuGlvGU4veIRmMVyiVc7btT hkhCabNS7dQHMwyfssGUAcoS7t BQPdvBSkcZmaDC2sMSMpjien l924RcEuXVL2WNKzlAKtZ5SltI 8sPjYtKRZeWVHvZ4NvsOHkJIbo P577ANfnFwC8AIBsdjFeT2Ku BDUceJhtReU7d2T6Ks9QLSlPEU 03LN89gVAqs7U1kCL6Y2JfQJHx qbvnetdccAW9ZIFiZEKeyD25 iLWrXXfdHb7ec0Y1c631VVQrAD TtaB14Ze3nxNztGVIykJXZeL2e ereao9wzmthcAjCbZIAgKTi6 PRq3UTIptXwoMuAdHDC1EuC8EF Z6mLWlsE6dnCrxzorbuW7nRsk+ K1P0F2XwJswpgYG+MX35RPJh NQ48hGOuoCZce9xlzGu1MdVxEE JkZUZ4sYdlNTnyf5AuPNCvG25k qROly2N8MQVwwYlslWAqOqKe tYB1qW2sYGewapaby0jsehhoXo ovp9fjdb88gF74I30bBFevAQAj EFYvGGPbVPPxiQmrjd7vgS9d Ii8+SDRneIW7dVE1iK5dKzJeQf E4PElpA050DnKshZDoHstlp5he c3mdlUp9MmRmJEMltsKfpDzf NOG0a5ZiPd12K77zVWvhSXJxTX QhJQBvEDMqcZyvtz0haX9qBz8+ OH4vo7eraj95pD46fGI+PHRk SUY7pOatRJciFFTziJ6uKQalMf M4MTJgTdLshQ94tVUcVGxcRz1l rDvlgYeaXW6iNFUdjxtgo763 FgLxz6nxYMGwpLEaJJvdGZF0D5 0vw1A6AEMfRBPqPUS8zUX6uY6d bGlnbjogbGVmdDsgdmVydGlj EErsUJddU438ENTpuSpvFhFwyJ NeR5pcrbEOYT9kUvzkdSR+PHRk XEE8bUtuOAeiLRMmlN6fGHWg W4d4WfXkEeR7JEthT2CzegX3WU VxlESwOENngDMZuZ4qgizgg4ed rropBjWsPVTbWSn5CAu7KRJz oLvbYsJaOME0OgA1EPE3qAFigQ 0ghBhmathwnX4pJvu+RklOOjwv dGQ+EGIjRWN3uWarVMgqQZMa eD8jODGzZ1g3EoJgVjV6KIjeZ3 PzyzF8KDSoyBHlADOnbDJDjY3i imtte0dsfwlgCzYnTATcYQq0 XWv3KFLcuBcaMsFoSEQ0MnY8HZ P4iTDpiS1rfEqpxtaygQ0gGxx+ TVJOOjwvdGQ+FSVpGPB6tOmu SIcjYJLprV3gGZIyZ5u3ItMzBw I1HVuwD3NsbrB2POPcpKJdUKHr tHPZjL5cpbpxx2vefsufZtBs MBOiUAn3XCz9GPDltZmpIwZiVM U2XwC9WMR2uXWuaM8cnOfbhaqm iO2tIkt+IBM7HLM6UN38FL29 I3GcApshcNZusCG+PHRhYmxlIH pfZZMvWVszJLPtFeBgwZluWP7b Lo5yXTFgSBPhaJvadDPyFfJx b2x (more content not included)... Normal [facility] Calcium, Ionized, Serum LCon 06-23-2021 Calcium, Ionized, Serum LC 6.1 mg/dL High 4.5-5.6 [facility] Comment on above: Result Comment: Perf ormed At: [address] [id number] Zachary Wade PhD Ph:[phone] Performed By: #### 1 [id number] ####[facility] (DEFAULT)[address] [place] [address] PTH, Intact LCon 06-23-2021 PTH, Intact LC 104 pg/mL High 15-65 [facility] Comment on above: Result Comment: Perf ormed At: [id number] [place], [place] [id number] Zachary Wade PhD Ph:[phone] Performed By: #### 1 [id number] ####[facility] (DEFAULT)[address] [place] [address] Provider Orderson 06-23-2021 Provider Orders [id number] Normal [facility] CMP Standardon 06-22-2021 eGFR AA >60 Invalid Interpretation Code [facility] Comment on above: Result Comment: Chief Lock Operator nancy Kidney disease could be indicated at eGFRs of less than 60 ml/min/1.73m2. Kidney Failure is indicated at less than 15 ml/min/1.73m2 Performed By: #### 1 [id number] ####[facility] (DEFAULT)[address] [place] [address]147 eGFR Non AA >60 Invalid Interpretation Code [facility] Comment on above: Performed By: #### 1 [id number], [id number] ####[facility] (DEFAULT)[address] [place] [address] [id number] Albumin [Mass/Vol] 4.3 g/dL Normal 3.5-5.0 [facility] Comment on above: Performed By: #### 1 [id number], [id number] ####[facility] (DEFAULT)[address] [place] [address]3680 Albumin/Globulin [Mass ratio] 1.4 {ratio} Normal 1.4-2.6 [facility] Comment on above: Performed By: #### 1 [id number], [id number], [id number] ####[facility] (DEFAULT)[address] [place] [address] 43381 Alk Phos 70 IU/L Normal 32-91 [facility] Comment on above: Performed By: #### 1 [id number], [id number], 3499719, [id number], [id number] ####[facility] (DEFAULT)[address] [place] [address] 26886 ALT [Catalytic activity/Vol] 28.0 U/L Normal 17.0-63.0 [facility] Comment on above: Performed By: #### 1 [id number], 33452589, 6647064, [id number], 5807656 ####[facility] (DEFAULT)[address] [place] [address] 83415 Anion gap [Moles/Vol] 14.0 mmol/L Normal 5.0-19.0 [facility] Comment on above: Performed By: #### 1 [id number], 37696229, 1009360, [id number], 5354166 ####[facility] (DEFAULT)[address] [place] [address] 54448 AST [Catalytic activity/Vol] 36 U/L Normal 15-41 [facility] Comment on above: Performed By: #### 1 [id number], 68185665, 7843997, [id number], 9488321 ####[facility] (DEFAULT)[address] [place] [address] Bili Total 0.7 mg/dL Normal 0.3-1.2 [facility] Comment on above: Performed By: #### 1 8001956, 08591811, 4643545, [id number], 8221462 ####[facility] (DEFAULT)[address] [place] [address] 49077 Calcium [Mass/Vol] 10.8 mg/dL High 8.9-10.3 [facility] Comment on above: Performed By: #### 1 [id number], 64291041, 9927511, [id number], 1047244 ####[facility] (DEFAULT)[address] [place] [address] 86964 Chloride [Moles/Vol] 107 mmol/L Normal 101-111 [facility] Comment on above: Performed By: #### 1 8070121, 86224612, 3695462, [id number], 4164614 ####[facility] (DEFAULT)[address] [place] [address] 70883 CO2 [Moles/Vol] 26 mmol/L Normal 21-32 [facility] Comment on above: Performed By: #### 1 1017812, 59955494, 1484473, [id number], 7347359 ####[facility] (DEFAULT)[address] [place] [address] 00943 Creatinine [Mass/Vol] 1.09 mg/dL Normal 0.90-1.30 [facility] Comment on above: Performed By: #### 1 [id number], 07635330, 0310612, [id number], 4580671 ####[facility] (DEFAULT)[address] [place] [address] 01184 Globulin (S) [Mass/Vol] 3.1 g/dL Normal 1.5-4.3 [facility] Comment on above: Performed By: #### 1 [id number], 77512488, 8404246, [id number], 1337613 ####[facility] (DEFAULT)[address] [place] [address] 66378 Glucose [Mass/Vol] 145.0 mg/dL High 74.0-118.[address] [facility] Comment on above: Performed By: #### 1 8051966, 94734123, 2705746, [id number], 3412672 ####[facility] (DEFAULT)[address] [place] [address] 12102 Osmolality 288 mOsm/L Invalid Interpretation Code [facility] Comment on above: Performed By: #### 1 4275210, 75742566, 5501884, [id number], 0712188 ####[facility] (DEFAULT)[address] [place] [address] 69841 Potassium [Moles/Vol] 4.8 mmol/L Normal 3.6-5.1 [facility] Comment on above: Performed By: #### 1 0863219, 55871277, 6390325, [id number], 6219284 ####[facility] (DEFAULT)[address] [place] [address] 36590 Protein [Mass/Vol] 7.4 g/dL Normal 6.5-8.1 [facility] Comment on above: Performed By: #### 1 0968407, 98432842, 5094781, [id number], 9434839 ####[facility] (DEFAULT)[address] [place] [address] 75594 Sodium [Moles/Vol] 142.0 mmol/L Normal 136.0-144 . 0 [facility] Comment on above: Performed By: #### 1 3721001, 01300933, 2730169, [id number], 5606248 ####[facility] (DEFAULT)[address] [place] [address] 28506 Urea nitrogen [Mass/Vol] 19 mg/dL Normal 8-26 [facility] Comment on above: Performed By: #### 1 7987089, 49459588, 3915167, [id number], 7863764 ####[facility] (DEFAULT)[address] [place] [address] 67305 Urea nitrogen/Creatinine [Mass ratio] 17.0 mg/mg High 4.6-16.2 [facility] Comment on above: Performed By: #### 1 [id number], 07240150, 8165039, [id number], 8605373 ####[facility] (DEFAULT)[address] [place] [address] 72859 Calcium, 24Hr Urine LCon Urine Total Volume LC Enter Here Invalid Interpretation Code [facility] Comment on above: Performed By: #### 2 [id number], 33093374, [id number] ####[facility] (DEFAULT)[address] [place] [address] 36711 Creatinine Level Urine Timed on 06-22-2021 Time U Creatinine 24 hr Invalid Interpretation Code [facility] Comment on above: Performed By: #### 2 [id number], 24443348, [id number] ####[facility] (DEFAULT)[address] [place] [address] 87946 TV Creatinine 3800 mL Invalid Interpretation Code [facility] Comment on above: Performed By: #### 2 [id number], 31113437, [id number] ####[facility] (DEFAULT)[address] [place] [address] 68087 Ur Creatinine 37 mg/dL Invalid Interpretation Code [facility] Comment on above: Performed By: #### 2 [id number], 00394530, [id number] ####[facility] (DEFAULT)[address] [place] [address] 90541 [place] Creatinine 1406 mg/24hr Normal 600-1800 [facility] Comment on above: Performed By: #### 2 [id number], 10011897, [id number] ####[facility] (DEFAULT)[address] [place] [address] 79243 Magnesiumon 06-22-2021 Magnesium [Mass/Vol] 2.05 mg/dL Normal 1.80-2.50 [facility] Comment on above: Performed By: #### 1 4186544, 91934263, 1283772, 7545933230, 5063161 ####[facility] (DEFAULT)[address] [place] [address] 10469 Sodium Level Urine Timedon 0 06-22-2021 Time U Sodium 24 hr Invalid Interpretation Code [facility] Comment on above: Performed By: #### 2 [id number], 60093192, [id number] ####[facility] (DEFAULT)[address] [place] [address] 94198 TV Sodium 3800 mL Invalid Interpretation Code [facility] Comment on above: Performed By: #### 2 [id number], 61484387, [id number] ####[facility] (DEFAULT)[address] [place] [address] 01783 Ur Sodium 35 mmol Invalid Interpretation Code [facility] Comment on above: Performed By: #### 2 [id number], 76924019, [id number] ####[facility] (DEFAULT)[address] [place] [address] 19630 [place] Sodium 133 mmol/day Normal 130-200 [facility] Comment on above: Performed By: #### 2 [id number], 74309696, [id number] ####[facility] (DEFAULT)[address] [place] [address] 24726 Vit D25 OHon 06-22-2021 Vitamin D 25 OH 74 ng/mL Invalid Interpretation Code [facility] Comment on above: Result Comment: In , [...] J Clin Endocrinol Metab 2011; 96 (7): 9043-6520. Performed By: #### 1 1453824, 41353471, 0684557, [id number], 0354264 ####[facility] ([facility])[address] [place] [address] A1C with Estimated Average G luo 06-12-2021 HbA1c (Bld) [Mass fraction] 6.9 % 4.3-5.6 [employer] Other HbA1c (Bld) [Mass fraction] 151 % [employer] Other Complete Blood Count Auto Di ffon 06-12-2021 Basophils (Bld) [#/Vol] 0.1 10*3/uL 0.0-0.2 [employer] Other Basophils/100 WBC (Bld) 1.3 % . [employer] Other Eosinophils (Bld) [#/Vol] 0.2 10*3/uL 0.0-0.45 [employer] Other Eosinophils/100 WBC (Bld) 3.2 % . [employer] Other Erythrocyte distribution width (RBC) [Ratio] 16.4 % 12.0-14.8 [employer] Other Hematocrit (Bld) [Volume fraction] 41.7 % 38.8-50.0 [employer] Other Hemoglobin (Bld) [Mass/Vol] 13.7 g/dL 13.0-17.0 [employer] Other Lymphocytes (Bld) [#/Vol] 0.8 10*3/uL 1.00-4.8 [employer] Other Lymphocytes/100 WBC (Bld) 11.2 % . [employer] Other MCH (RBC) [Entitic mass] 28.9 pg 27.5-35.2 [employer] Other MCH (RBC) [Entitic mass] 32.8 pg 32.5-35.6 [employer] Other MCV (RBC) [Entitic vol] 87.9 fL 83.5-101 [employer] Other Monocytes (Bld) [#/Vol] 1.0 10*3/uL 0.0-0.8 [employer] Other Monocytes/100 WBC (Bld) 13.4 % . [employer] Other Neutrophils (Bld) [#/Vol] 5.2 10*3/uL 1.8-7.7 [employer] Other Neutrophils/100 WBC (Bld) 70.9 % . [employer] Other Platelet mean volume (Bld) [Entitic vol] 7.1 fL 6.6-10.1 [employer] Other Platelets (Bld) [#/Vol] 255 10*3/uL 150-450 [employer] Other RBC (Bld) [#/Vol] 4.75 10*6/uL 3.90-5.60 [employer] Other WBC (Bld) [#/Vol] 7.4 10*3/uL 4.1-10.5 [employer] Other Complete Blood Count Auto Diff 7.4 4.5-11.0 [employer] Other Complete Blood Count Auto Diff 0.1 0-0.5 [employer] Other Comprehensive Metabolic Pane anny 06-12-2021 Albumin [Mass/Vol] 4.1 g/dL 3.2-5.5 [employer] Other Albumin/Globulin [Mass ratio] 1.5 {ratio} [facility] [employer] Other ALP [Catalytic activity/Vol] 73 U/L 32-92 [facility] [employer] Other ALT [Catalytic activity/Vol] 25 U/L 10-60 [facility] [employer] Other AST [Catalytic activity/Vol] 38 U/L 10-42 [facility] [employer] Other Bilirubin [Mass/Vol] 0.9 mg/dL 0.3-1.2 [facility] [employer] Other Calcium [Mass/Vol] 10.8 mg/dL 8.2-10.2 [facility] [employer] Other Chloride [Moles/Vol] 100 mmol/L 95-114 [facility] [employer] Other CO2 [Moles/Vol] 28.3 mmol/L 22.0-30.0 [facility] [employer] Other Creatinine [Mass/Vol] 1.26 mg/dL 0.64-1.27 [facility] [employer] Other Glucose [Mass/Vol] 104 mg/dL 70-100 [facility] [employer] Other Potassium [Moles/Vol] 4.0 mmol/L 3.5-5.1 [facility] [employer] Other Protein [Mass/Vol] 6.8 g/dL 6.1-7.9 [facility] [employer] Other Sodium [Moles/Vol] 137 mmol/L 136-146 [facility] [employer] Other Urea nitrogen [Mass/Vol] 29 mg/dL 9-23 [facility] [employer] Other Comprehensive Metabolic Panel 58 [facility] [employer] Other Comprehensive Metabolic Panel > 60 [facility] [employer] Other Comprehensive Metabolic Panel 2.7 [facility] [employer] Other Lipid Panelon 06-12-2021 Cholesterol [Mass/Vol] 161 mg/dL 140-200 [employer] Other Cholesterol in HDL [Mass/Vol] 51 mg/dL 29-71 [employer] Other Cholesterol in LDL Elph Qn 88 0-100 [employer] Other Cholesterol.total/Cho lesterol in HDL [Mass ratio] 3.2 {ratio} <5.0 [employer] Other Lipid Panel 112 35-149 [employer] Other Lipid Panel 22 [employer] Other Thyroid Stim Hormone w/Rflxo n 06-12-2021 Thyroid Stim Hormone w/Rflx 1.39 0.45-5.33 [employer] Other Outside Recordson 01-26-2021 Outside Records [id number]#[id number] [facility] Outside Records [id number]#1.00OTGTI [facility] Tobacco Screening.on 021 Tobacco use status CPHS b) No -[facility] y [address] DO Work Phone: Outside Recordson 01-13-2021 Outside Records [id number]#[id number] [facility] CT Watchman Full Contraston 01-10-2021 CT Watchman Full Contrast FINAL REPORT Interpreted by: TRICIA REED MD and NANNETTE ALEJO E, MD 01/10/21 10:55 Patient Name: SANDRA POTTER STUDY: TH CT WATCHMAN FULL CONTRAST; 01/10/2021 8:49 am INDICATION: pre watchman procedure. COMPARISON: No Normal [facility] -[facility] [place] [facility] [address] [place] Work Phone: Laboratory - Chemistry and C hemistry - challengeon 01-10-2021 Glucose [Mass/Vol] 122 mg/dL above high threshold 74 - 99 [facility] [address] [place] Work Phone: [phone] No Panel Informationon 01-10 339 {SECONDS} above high threshold 89 - 169 [facility] [address] [place] Work Phone: [phone] Comment on above: Note new reference mary mullins as of 06/20/2018. Target ACT range will vary based on the patient population, clinical status, and surgical intervention occurring. [facility] [address] [place] Work Phone: [phone] [email or web address]?R [email or web address]?Raisa [id number]&Date=&Time=09%3a44%3a54%3a 00&TestType=ECG&Site=1&Out putType=PDF&Ext=PDF [facility] [address] [place] Work Phone: [phone] Atrial fibrillation with slow ventricular response [facility] [address] [place] Work Phone: [phone] Abnormal [facility] [address] [place] Work Phone: [phone] 1 [facility] [address] [place] Work Phone: [phone] [facility] [address] [place] Work Phone: [phone] 1 [facility] [address] [place] Work Phone: [phone] [facility] [address] [place] Work Phone: [phone] [facility] [address] [place] Work Phone: [phone] [facility] [address] [place] Work Phone: [phone] [facility] [address] [place] Work Phone: [phone] [facility] [address] [place] Work Phone: [phone] [facility] [address] [place] Work Phone: [phone] [facility] [address] [place] Work Phone: [phone] [facility] [address] [place] Work Phone: Cult,Mycobacteriaon 10-11-19 21 Cult,Mycobacteria Specimen Description .BRONCHIAL ALVEOLAR LAVAGE Special Requests .RIGHT MIDDLE LOBE Direct Exam NO ACID FAST BACILLI SEEN (CONCENTRATED SMEAR) Culture NO GROWTH 45 DAYS Report Status FINAL 10/10/2020 [facility] Comment on above: Performed By: #### A FC #### [facility] [employer] [address] [place] [address] Embedded Case Manager: Chi Layne MD Cult,Funguson 09-26-2020 Cult,Fungus Specimen Description .BRONCHIAL ALVEOLAR LAVAGE Special Requests .RIGHT MIDDLE LOBE Culture NO GROWTH 32 DAYS Report Status FINAL 09/26/2020 [facility] Comment on above: Performed By: #### F C #### [employer] [address] [place] [address] Embedded Case Manager: Chi Layne MD Viral Respiratory Culton [...] at day 5 Report Status FINAL 08/31/2020 [facility] Comment on above: Performed By: #### V RESPC #### [employer] [address] [place] [address] Embedded Case Manager: Chi Layne MD Cult,Respiratoryon 06-12-202 1 Cult,Respiratory Specimen Description .BRONCHIAL ALVEOLAR LAVAGE Special Requests .RIGHT MIDDLE LOBE Direct Exam MODERATE NEUTROPHILS NO BACTERIA SEEN Culture STAPHYLOCOCCUS AUREUS <10,000 CFU/ML Susceptibility testing not performed on low colony count organisms. Report Status FINAL 08/27/2020 [facility] Comment on above: Performed By: #### R ESPC #### [employer] [address] [place] [address] [id number] Embedded Case Manager: Chi Layne MD Cytology, Non-GynOrdered By: Ulisses Nieves on 08-25-2020 [employer] Phone: Specimen Description .BRONCHIAL ALVEOLAR LAVAGE [employer] Phone: Comment on above: RML [facility] Phone: Histology [facility] 08-25 Histology [facility] (NOTE) -- Diagnosis -- RIGHT MIDDLE LOBE BAL: NEGATIVE FOR MALIGNANCY. Hyun Muhamamd Electronically Signed Out rdd/08/26/2020 Clinical Information Hemostasis, [...] NONGYNECOLOGICAL CYTOPATHOLOGY CONSULTATION Patient Name: SANDRA POTTER Med Rec: [id number] Path Number: [id number] [facility] ANATOMIC PATHOLOGY [address] [place] [phone] [facility] Comment on above: Performed By: #### P PPVS #### [employer] [address] [place] [address] [id number] Embedded Case Manager: Chi Layne MD Non-Clinical Aide Cytologyon 1 Case No: [id number] Normal [facility] Comment on above: Performed By: #### N EEG TECH #### [employer] [facility] [place], [place] [id number] Embedded Case Manager: Chi Layne MD Specimen Description .BRONCHIAL ALVEOLAR LAVAGE Normal [facility] Comment on above: Result Comment: RML Performed By: #### N EEG TECH #### [employer] [address] [place], [place] [phone] Embedded Case Manager: Chi Layne MD POC Glucose FingerstickOrder ed By: Ulisses Nieves on 08-25-2020 Glucose [Mass/Vol] 121 mg/dL High 75 - 110 mg/dL [employer] Phone: Interpretation and review of laboratory results Abnormal [employer] Phone: [employer] Phone: COVID-19Ordered By: Justin reyes on 07-24-2020 SARS-CoV-2 (COVID-19) RNA EMILY+probe Ql (Unsp spec) [employer] Phone: SARS-CoV-2 (COVID-19) RNA EMILY+probe Ql (Unsp spec) Not detected Not Detected [employer] Phone: Comment on above: The specimen is NEGATIVE for SARS-CoV-2, the novel coronavirus associated with COVID-19. A negative result does not rule out COVID-19. Robbie SARS-CoV-2 for use on the [employer] is a real-time RT-PCR test intended [...] this assay. Fact sheet for Healthcare Providers: https://www.fda.gov/media/345128/download Fact sheet for Patients: https://www.fda.gov/media/769395/download METHODOLOGY: RT-PCR Source .NASOPHARYNGEAL SWAB [facility] [place] [employer] Phone: [id number] 07-24-2020 SARS-CoV-2 (COVID-19) RNA EMILY+probe Ql (Unsp spec) Normal [facility] Comment on above: Performed By: #### C OVID #### [facility] [employer] [facility] [place], [place] [phone] Embedded Case Manager: Chi Layne MD SARS-CoV-2 (COVID-19) RNA EMILY+probe Ql (Unsp spec) Not detected Normal NOTDET [facility] Comment on above: Result Comment: The [...] this assay. Fact sheet for Healthcare Providers: https://www.fda.gov/media/432815/download Fact sheet for Patients: https://www.fda.gov/media/364393/download METHODOLOGY: RT-PCR Performed By: #### C OVID #### [facility] [address] [place] [address] Embedded Case Manager: Chi Layne MD SARS-CoV-2 (COVID-19) RNA EMILY+probe Ql (Unsp spec) .NASOPHARYNGEAL SWAB Normal [facility] Comment on above: Performed By: #### C OVID #### [facility] [address] [place] [address] Embedded Case Manager: Chi Layne MD [id number] 07-04-2020 SARS-CoV-2 (COVID-19) RNA EMILY+probe Ql (Unsp spec) Normal [facility] Comment on above: Performed By: #### C OVID #### [facility] [address] [place] [address] Embedded Case Manager: Chi Layne MD SARS-CoV-2 (COVID-19) RNA EMILY+probe Ql (Unsp spec) Detected Abnormal NOTDET [facility] Comment on above: Result Comment: The specimen [...] this assay. Fact sheet for Healthcare Providers: https://www.fda.gov/media/769162/download Fact sheet for Patients: https://www.fda.gov/media/112658/download METHODOLOGY: RT-PCR Results reported to the appropriate Health Department Performed By: #### C OVID #### [facility] [address] [place], [place] [phone] Embedded Case Manager: Chi Layne MD [id number] 07-03-2020 SARS-CoV-2 (COVID-19) RNA EMILY+probe Ql (Unsp spec) .NASOPHARYNGEAL SWAB Normal [facility] Comment on above: Performed By: #### C OVID #### [employer] [address] [place], [place] [phone] Embedded Case Manager: Chi Layne MD Albumin [Mass/volume] in Ser um or Plasmaon 05-04-2020 Albumin [Mass/Vol] 3.7 g/dL 3.2-5.5 [facility] Automated basophil %on 05-04 Basophils/100 WBC (Bld) 0.7 % [facility] Automated basophil counton 0 05-04-2020 Basophils (Bld) [#/Vol] 0.0 10*3/uL 0.0-0.2 [facility] Automated blood lymphocyte c ount (number/volume)on 05-04-2020 Lymphocytes (Bld) [#/Vol] 0.6 10*3/uL 1.00-4.8 [facility] Automated blood lymphocyte c ount as percentage of total leukocyteson 05-04-2020 Lymphocytes/100 WBC (Bld) 10.4 % [facility] Automated blood monocyte cou nton 05-04-2020 Monocytes (Bld) [#/Vol] 0.7 10*3/uL 0.0-0.8 [facility] Automated blood platelet cou nt (count/volume)on 05-04-2020 Platelets (Bld) [#/Vol] 175 10*3/uL 150-450 [facility] Automated blood platelet meenakshi n volume measurementon 05-04-2020 Platelet mean volume (Bld) [Entitic vol] 8.1 fL 6.6-10.1 [facility] Automated eosinophil %on Eosinophils/100 WBC (Bld) 3.7 % [facility] Automated eosinophil counton 05-04-2020 Eosinophils (Bld) [#/Vol] 0.2 10*3/uL 0.0-0.45 [facility] Automated erythrocyte distri bution width ratioon 05-04-2020 Erythrocyte distribution width (RBC) [Ratio] 16.3 % 12.0-14.8 [facility] Automated erythrocyte mean c orpuscular hemoglobin (mass per erythrocyte)on 05-04-2020 MCH (RBC) [Entitic mass] 29.3 pg 27.5-35.2 [facility] Automated erythrocyte mean c orpuscular hemoglobin concentration measurement (mass/volon 05-04-2020 MCHC (RBC) [Mass/Vol] 33.2 g/dL 32.5-35.6 [place] Automated erythrocyte mean c orpuscular volumeon 05-04-2020 MCV (RBC) [Entitic vol] 88.0 fL 83.5-101 [facility] Automated monocyte %on 05-04 Monocytes/100 WBC (Bld) 12.1 % [facility] Automated neutrophil %on Neutrophils/100 WBC (Bld) 73.1 % [facility] Blood erythrocytes automated count (number/volume)on 05-04-2020 RBC (Bld) [#/Vol] 4.85 10*6/uL 3.90-5.60 [facility] Blood hemoglobin measurement (mass/volume)on 05-04-2020 Hemoglobin (Bld) [Mass/Vol] 14.2 g/dL 13.0-17.0 [facility] Blood leukocytes automated c ount (number/volume)on 05-04-2020 WBC (Bld) [#/Vol] 6.2 10*3/uL 4.5-11.0 [facility] Blood neutrophil count by au tomated method (number/volume)on 05-04-2020 Neutrophils (Bld) [#/Vol] 4.5 10*3/uL 1.8-7.7 [facility] Estimated glomerular filtrat ion rate (GFR) non- Americanon 05-04-2020 GFR/1.73 sq M predicted among non-blacks MDRD (S/P/Bld) [Vol rate/Area] 47 mL/min/{1.73_m2} [facility] Hematocrit [Volume Fraction] of Blood by Automated counton 05-04-2020 Hematocrit (Bld) [Volume fraction] 42.7 % 38.8-50.0 [facility] Otheron 05-04-2020 GFR/1.73 sq M.predicted MDRD (S/P/Bld) [Vol rate/Area] 57 mL/min/{1.73_m2} [facility] Comment on above: GFR estimated refere nce range: According to KDOQI guidelines, <60 ml/min/1.73m2 is sufficient to diagnose a patient with chronic kidney disease. Nucleated RBC/100 WBC (Bld) [Ratio] 0.0 % 0-0.5 [facility] Creatinine Clearance (Chem 68.68 [facility] Protein [Mass/volume] in Ser um or Plasmaon 05-04-2020 Protein [Mass/Vol] 6.5 g/dL 6.1-7.9 [facility] Serum globulin measurement b y calculation (mass/volume)on 05-04-2020 Globulin (S) [Mass/Vol] 2.8 g/dL [facility] Serum or plasma alanine bartholomew otransferase measurement without P-5'-P (enzymatic activion 05-04-2020 ALT No additional P-5'-P [Catalytic activity/Vol] 19 U/L 10-60 [facility] Serum or plasma albumin/glob ulin mass ratioon 05-04-2020 Albumin/Globulin [Mass ratio] 1.3 {ratio} [facility] Serum or plasma alkaline dorothea sphatase measurement (enzymatic activity/volume)on 05-04-2020 ALP [Catalytic activity/Vol] 92 U/L 32-92 [facility] Serum or plasma aspartate am inotransferase measurement (enzymatic activity/volume)on 05-04-2020 AST [Catalytic activity/Vol] 24 U/L 10-42 [facility] Serum or plasma calcium victor m urement (mass/volume)on 05-04-2020 Calcium [Mass/Vol] 10.5 mg/dL 8.2-10.2 [facility] Serum or plasma chloride meenakshi surement (moles/volume)on 05-04-2020 Chloride [Moles/Vol] 104 mmol/L 95-114 [facility] Serum or plasma creatinine m easurement with calculation of estimated glomerular filtron 05-04-2020 Creatinine [Mass/Vol] 1.50 mg/dL 0.64-1.27 [place] Serum or plasma glucose victor m urement (mass/volume)on 05-04-2020 Glucose [Mass/Vol] 119 mg/dL 70-100 [facility] Comment on above: ADA recommended refe rence rangeRandom Glucose Reference Range is dependent on time and content of last meal. Glucose of more than 200 mg/dL in a nonstressed, ambulatory subject supports the diagnosis of Diabetes Mellitus. Serum or plasma potassium me asurement (moles/volume)on 05-04-2020 Potassium [Moles/Vol] 5.3 mmol/L 3.5-5.1 [place] Serum or plasma sodium measu rement (moles/volume)on 05-04-2020 Sodium [Moles/Vol] 139 mmol/L 136-146 [facility] Serum or plasma total biliru bin measurement (mass/volume)on 05-04-2020 Bilirubin [Mass/Vol] 0.9 mg/dL 0.3-1.2 [facility] Serum or plasma total carbon dioxide measurement (moles/volume)on 05-04-2020 CO2 [Moles/Vol] 27.8 mmol/L 22.0-30.0 [facility] Serum or plasma urea nitroge n measurement (mass/volume)on 05-04-2020 Urea nitrogen [Mass/Vol] 26 mg/dL 9-23 [facility] 25-hydroxyvitamin D [Mass/Vo l]on 11-20-2019 25-Hydroxyvitamin D2+25-Hydroxyvitamin D3 [Mass/Vol] 57 ng/mL . [facility] Comment on above: Reference Range:All Ages: Target levels 30 - 100 Reference Range: All Ages: Target levels 30 - 100 25-hydroxyvitamin D2 [Mass/V ol]on 11-20-2019 25-Hydroxycalciferol [Mass/Vol] <1.0 ng/mL . [facility] Comment on above: This test was develo ped and its performance characteristicsdetermined by [facility]. It has not been cleared or approvedby the Food and Drug Administration. This test was develo ped and its performance characteristics determined by [facility]. It has not been cleared or approved by the Food and Drug Administration. 25-hydroxyvitamin D3 [Mass/V ol]on 11-20-2019 Calcidiol [Mass/Vol] 57 ng/mL . [facility] Comment on above: This test was develo ped and its performance characteristicsdetermined by [facility]. It has not been cleared or approvedby the Food and Drug Administration.Performed at: [employer] [address] [place], [place] [id number] Director: Prasanna Damian MD, Phone: [phone] This test was develo ped and its performance characteristics determined by [facility]. It has not been cleared or approved by the Food and Drug Administration. Performed at: [facility] [employer] [address] [place], [place] [id number] Embedded Case Manager: Prasanna Damian MD, Phone: [phone] IgA [Mass/volume] in Serum o r Plasmaon 11-20-2019 IgA [Mass/Vol] 337 mg/dL 61-[address] [facility] IgG [Mass/volume] in Serum o r Plasmaon 11-20-2019 IgG [Mass/Vol] 1002 mg/dL [id number] [facility] IgM [Mass/volume] in Serum o r Plasmaon 11-20-2019 IgM [Mass/Vol] 55 mg/dL 20-[address] [facility] Comment on above: Performed at: [place] [address] [id number] Director: Mauro Sharma PhD, Phone: [phone] Performed at: [employer] [address] [place], [place] [id number] Embedded Case Manager: Mauro Sharma PhD, Phone: [phone] Immunoglobulin light chains. kappa.free [Mass/volume] in Serumon 11-20-2019 Immunoglobulin light chains.kappa.free (S) [Mass/Vol] 26.1 mg/L 3.3-19.[address] [facility] Immunoglobulin light chains. kappa.free/Immunoglobulin light chains.lambda.free [Teddy 11-20-2019 Immunoglobulin light chains.kappa.free/Imm unoglobulin light chains.lambda.free (S) [Mass ratio] 1.09 0.26-1.[address] [facility] Comment on above: Performed at: [facility] [employer] [address] [place], [place] [id number] Director: Mauro Sharma PhD, Phone: [phone] Performed at: [employer] [place] [address] [place], [place] [id number] Embedded Case Manager: Mauro Sharma PhD, Phone: [phone] Immunoglobulin light chains. lambda.free [Mass/volume] in Serum or Plasmaon 11-20-2019 Immunoglobulin light chains.lambda.free [Mass/Vol] 24.0 mg/L 5.7-26.[address] [facility] Otheron 11-20-2019 Serum [facility] Comment: . [facility] Comment on above: Presence of monoclon al protein is unclear at this time. Suggestrepeat in 3 to 6 months if clinically indicated. Presence of monoclon al protein is unclear at this time. Suggest repeat in 3 to 6 months if clinically indicated. Serum or plasma intact parat hyroid hormone measurement (mass/volume)on 11-20-2019 Parathyrin.intact [Mass/Vol] 35.4 pg/mL [facility] Hematologyon 11-10-2019 WBC (Bld) [#/Vol] 6.2 10*3/uL 4.5-11.0 [facility] CT CHEST HIGH RESOLUTIONOrde red By: [...] 03/30/2019to be communicated to a licensed caregiver. [facility] Phone: EXAMINATION: CT IMAG ES OF THE [...] inferior aspect of the right bony glenoid. [facility] Phone: César, Mhpn Incoming R adiant Results From [facility] - 03/30/2019 9:12 PM EST EXAMINATION: CT [...] 03/30/2019to be communicated to a licensed caregiver. [facility] Phone: XR CHEST STANDARD (2 VW)Orde red By: Alfonso Wesley on 03-30-2019 No focal airspace consolidation or edema. [employer] Phone: EXAMINATION: TWO XRA Y VIEWS OF THE CHEST 03/30/2019 9:53 am COMPARISON: 04/25/2006 HISTORY: ORDERING SYSTEM PROVIDED HISTORY: SOB (shortness of breath) TECHNOLOGIST PROVIDED HISTORY: Reason for Exam: SOB (shortness of breath) R06.02 (ICD-10-CM); Hemoptysis R04.2 (ICD-10-CM) FINDINGS: The lungs are without acute focal process. No effusion or pneumothorax. The cardiomediastinal silhouette is normal. The osseous structures are intact without acute process. [facility] Phone: [place]ar, Mhpn Incoming R adiant Results From [facility] - 03/30/2019 10:12 AM EST EXAMINATION: TWO [...] IMPRESSION: No focal airspace consolidation or edema. [facility] Phone: Lactate dehydrogenase measur ement (enzymatic activity/volume)on 01-24-2019 LDH (Unsp spec) [Catalytic activity/Vol] 178 U/L 45-190 [facility] Serum or plasma thyroid stim ulating hormone (TSH) measurement by high sensitivity meton 01-31-2018 TSH Qn 4.94 u[iU]/mL 0.45-5.33 [facility] TSH DL <= 0.005 mIU/L Qnon 1 04-02-2017 TSH Qn 4.94 m[IU]/L 0.45-5.[address] [facility] Basic Metabolic Panelon 09-15 Anion gap 10 mmol/L Normal 10-[address] [facility] Healthcare Comment on above: Performed By: #### 1 [id number] ####[facility] [address] [facility] [place] [address] Bicarbonate (HCO3) 30 mmol/L Normal 21-[address] [facility] Healthcare Comment on above: Performed By: #### 1 [id number] ####[facility] Anw[address] [facility] [place] [address] BUN/Creatinine Ratio 22 mg/mg Normal 5-[address] [facility] Healthcare Comment on above: Performed By: #### 1 [id number] ####[facility] Tzf[address] [facility] [place] [address] Calcium 9.6 mg/dL Normal 8.6-10.3 [facility] Comment on above: Performed By: #### 1 769514 ####[facility] Efl[address] [facility] [place] [address] Chloride 108 mmol/L High 98-[address] [facility] Healthcare Comment on above: Performed By: #### 1 518991 ####[facility] Hnt343 [facility] [place] [address] Creatinine 1.60 mg/dL High 0.50-1.30 [facility] Comment on above: Performed By: #### 1 [id number] ####[facility] Zcg271 [facility] [place] [address] eGFR (MDRD) 44 mL/min/{1.73_m2} Normal [facility] Comment on above: Result Comment: Inte rpretation for Chronic Kidney Disease:Stages 1&2 >60 Healthy or potential kidney damage.Mild decrease of GFR.Stage 3 30-59 Moderate decrease of GFR.Stage 4 15-29 Severe decrease of GFR.Stage 5 <15 Kidney failure or on dialysis. Performed By: #### 1 854582 ####[facility] [address] [place] [address] Glucose mass conc 141 mg/dL High 70-100 [facility] Comment on above: Performed By: #### 1 [id number] ####[facility] [address] [place] [address] Potassium molar conc 4.7 mmol/L Normal 3.5-5.1 [facility] Comment on above: Performed By: #### 1 012417 ####[facility] [address] [place] [address] Sodium 143 mmol/L Normal 136-145 [facility] Comment on above: Performed By: #### 1 [id number] ####[facility] [address] [place] [address] Urea nitrogen 36 mg/dL High 6-23 [facility] Comment on above: Performed By: #### 1 365921 ####[facility] [address] [place] [address] Prothrombin Timeon 8 INR Coag RelTime (PPP) 1.68 {INR} High 0.90-1.10 [facility] Comment on above: Result Comment: NATHAN DOE NOTE NEW REFERENCE RANGE EFFECTIVE 2017 Performed By: #### 3 [id number] ####[facility] [address] [place] [address] Prothrombin time (PT) Coag time (PPP) 18.7 s High 9.8-12.[address] [facility] Healthcare Comment on above: Result Comment: NATHAN DOE NOTE NEW REFERENCE RANGE EFFECTIVE 2017 Performed By: #### 3 [id number] ####[facility] [address] [place] [address] Basic Metabolic Panelon 07-0 Anion gap 14 mmol/L Normal 10-20 [facility] Comment on above: Performed By: #### 1 738122 ####[facility] [address] [place] [address] Bicarbonate (HCO3) 32 mmol/L Normal 21-32 [facility] Comment on above: Performed By: #### 1 567436 ####[facility] Smd[address] [facility] [place] [address] BUN/Creatinine Ratio 20 mg/mg Normal 5-25 [facility] Comment on above: Performed By: #### 1 564279 ####[facility] Bcw[address] [facility] [place] [address] Calcium 9.7 mg/dL Normal 8.6-10.3 [facility] Comment on above: Performed By: #### 1 387068 ####[facility] [address] [place] [address] Chloride 102 mmol/L Normal 98-107 [facility] Comment on above: Performed By: #### 1 437378 ####[facility] Nap[address] [facility] [place] [address] Creatinine 1.73 mg/dL High 0.50-1.30 [facility] Comment on above: Performed By: #### [id number] ####[facility] Ykd[address] [place] [address] eGFR (MDRD) 40 mL/min/{1.73_m2} Normal [facility] Healthcare Comment on above: Result Comment: Inte rpretation for Chronic Kidney Disease:Stages 1&2 >60 Healthy or potential kidney damage.Mild decrease of GFR.Stage 3 30-59 Moderate decrease of GFR.Stage 4 15-29 Severe decrease of GFR.Stage 5 <15 Kidney failure or on dialysis. Performed By: #### 1 105202 ####[facility] [address] [place] [address] Glucose mass conc 104 mg/dL High 70-[address] [facility] Healthcare Comment on above: Performed By: #### 1 552612 ####[facility] Bvz[address] [facility] [place] [address] Potassium molar conc 3.4 mmol/L Low 3.5-5.1 [facility] Comment on above: Performed By: #### 1 365484 ####[facility] [address] [facility] [place] [address] Sodium 145 mmol/L Normal 136-145 [facility] Comment on above: Performed By: #### 1 201737 ####[facility] [address] [facility] [address] Urea nitrogen 34 mg/dL High 6-23 [facility] Comment on above: Performed By: #### 1 812712 ####[facility] Vhj[address] [place] [address] Prothrombin Timeon 8 INR Coag RelTime (PPP) 1.32 {INR} High 0.90-1.10 [facility] Comment on above: Result Comment: NATHAN DOE NOTE NEW REFERENCE RANGE EFFECTIVE 2017 Performed By: #### 3 [id number] ####[facility] Cwx848 [facility] [place] [address] Prothrombin time (PT) Coag time (PPP) 14.7 s High 9.8-12.[address] [facility] Healthcare Comment on above: Result Comment: NATHAN DOE NOTE NEW REFERENCE RANGE EFFECTIVE 2017 Performed By: #### 3 [id number] ####[facility] Nbd[address] [facility] [place] [address] Basic Metabolic Panelon 09-0 Anion gap 13 mmol/L Normal 10-[address] [facility] Healthcare Comment on above: Performed By: #### 1 752933 ####[facility] Axq[address] [facility] [place] [address] Bicarbonate (HCO3) 31 mmol/L Normal 21-[address] [facility] Healthcare Comment on above: Performed By: #### 1 337646 ####[facility] Ibs[address] [facility] [place] [address] BUN/Creatinine Ratio 20 mg/mg Normal 5-25 [facility] Comment on above: Performed By: #### 1 352737 ####[facility] [address] [place] [address] Calcium 9.7 mg/dL Normal 8.6-10.3 [facility] Comment on above: Performed By: #### 1 376158 ####[facility] [address] [place] [address] Chloride 102 mmol/L Normal 98-107 [facility] Comment on above: Performed By: #### 1 056459 ####[facility] [address] [place] [address] Creatinine 1.79 mg/dL High 0.50-1.30 [facility] Comment on above: Performed By: #### 1 473061 ####[facility] [address]kp[address] [place] [address] eGFR (MDRD) 39 mL/min/{1.73_m2} Normal [facility] Comment on above: Result Comment: Inte rpretation for Chronic Kidney Disease:Stages 1&2 >60 Healthy or potential kidney damage.Mild decrease of GFR.Stage 3 30-59 Moderate decrease of GFR.Stage 4 15-29 Severe decrease of GFR.Stage 5 <15 Kidney failure or on dialysis. Performed By: #### 1 704982 ####[facility] Tnb[address] [place] [address] Glucose mass conc 138 mg/dL High 70-100 [facility] Comment on above: Performed By: #### 1 640280 ####[facility] Ijc[address] [place] [address] Potassium molar conc 3.7 mmol/L Normal 3.5-5.1 [facility] Comment on above: Performed By: #### 1 418936 ####[facility] [address] [place] [address] Sodium 142 mmol/L Normal 136-145 [facility] Comment on above: Performed By: #### 1 224714 ####[facility] Nmv[address] [place] [address] Urea nitrogen 36 mg/dL High 6-23 [facility] Comment on above: Performed By: #### 1 212725 ####[facility] Aom[address] [place] [address] Prothrombin Timeon 7 INR Coag RelTime (PPP) 1.58 {INR} High 0.85-1.16 [facility] Comment on above: Result Comment: Coum geovanny Therapy:1.5 - 2.0 Low Intensity Therapy2.0 - 3.0 Moderate Intensity Therapy2.5 - 3.5 High (1) Intensity Therapy3.0 - 4.0 High (2) Intensity Therapy Performed By: #### 3 [id number] ####[facility] Ipm[address] [place] [address] Prothrombin time (PT) Coag time (PPP) 18.9 s High 11.3-14.[address] [facility] Healthcare Comment on above: Performed By: #### 3 [id number] ####[facility] Tch[address] [place] [address] CBCon 11-07-2016 Erythrocyte distribution width Auto Ratio (RBC) 15.0 % Normal 12.0-15.[address] [facility] Healthcare Comment on above: Performed By: #### 2 165748 ####[facility] Fyo[address] [place] [address] Erythrocytes (RBC) 4.77 10*6/uL Normal 4.08-6.[address] [facility] Healthcare Comment on above: Performed By: #### 2 989634 ####[facility] [address] [place] [address] Hematocrit (HCT) 43.9 % Normal 38.4-54.[address] [facility] Healthcare Comment on above: Performed By: #### 2 766576 ####[facility] Omv[address] [place] [address] Hemoglobin mass conc (Bld) 14.9 g/dL Normal 12.8-17.[address] [facility] Healthcare Comment on above: Performed By: #### 2 176332 ####[facility] Nqb[address] [place] [address] MCH 31.2 pg Normal 27.5-32.[address] [facility] Healthcare Comment on above: Performed By: #### 2 760912 ####[facility] Hsj[address] [place] [address] MCHC mass conc (RBC) 33.9 g/dL Normal 30.5-35.[address] [facility] Healthcare Comment on above: Performed By: #### 2 637970 ####[facility] Dtv[address] [place] [address] MCV 92.0 fL Normal 83.3-98.[address] [facility] Healthcare Comment on above: Performed By: #### 2 444672 ####[facility] Ail[address] [place] [address] NRBC Absolute 0.00 10*3/uL Normal [facility] Healthcare Comment on above: Performed By: #### 2 419091 ####[facility] Gkt[address] [facility] [place] [address] NRBC Automated 0.0 /100{WBCs} Normal [facility] Healthcare Comment on above: Performed By: #### 2 702942 ####[facility] Lao[address] [facility] [place] [address] Platelet mean volume (PMV) 9.8 fL Low 9.9-12.[address] [facility] Healthcare Comment on above: Performed By: #### 2 964642 ####[facility] Wmx[address] [facility] [place] [address] Platelets 197 10*3/uL Normal 155-[address] [facility] Healthcare Comment on above: Performed By: #### 2 718878 ####[facility] Qil[address] [facility] [place] [address] RDW SD 50.7 fL High 39.3-48.[address] [facility] Healthcare Comment on above: Performed By: #### 2 055765 ####[facility] Wqa[address] [facility] [place] [address] WBC (Leukocytes) 5.2 10*3/uL Normal 4.2-11.[address] [facility] Healthcare Comment on above: Performed By: #### 2 957511 ####[facility] L[address] [facility] [place] [address] Comprehensive Metabolic Pane [facility] 11-07-2016 Alanine aminotransferase (ALT) 30 U/L Normal 10-[address] [facility] Healthcare Comment on above: Performed By: #### 1 390808 ####[facility] Snm[address] [facility] [place] [address] Albumin 4.5 g/dL Normal 3.4-5.[address] [facility] Healthcare Comment on above: Performed By: #### 1 776743 ####[facility] Gyc[address] [facility] [place] [address] Albumin/Globulin Ratio 1.5 {ratio} Normal 0.9-2.[address] [facility] Healthcare Comment on above: Performed By: #### 1 024121 ####[facility] [address] [facility] [place] [address] Alkaline phosphatase (ALP) 92 U/L Normal 45-117 [facility] Comment on above: Performed By: #### 1 165327 ####[facility] [address] [place] [address] Anion gap 12 mmol/L Normal 10-20 [facility] Comment on above: Performed By: #### 1 016644 ####[facility] [address] [place] [address] Aspartate aminotransferase (AST) 33 U/L Normal 13-39 [facility] Comment on above: Performed By: #### 1 497662 ####[facility] [address] [place] [address] Bicarbonate (HCO3) 33 mmol/L High 21-32 [facility] Comment on above: Performed By: #### 1 847460 ####[facility] [address] [place] [address] Bilirubin (total) 1.2 mg/dL Normal 0.0-1.2 [facility] Comment on above: Performed By: #### 1 193906 ####[facility] [address] [place] [address] BUN/Creatinine Ratio 26 mg/mg High 5-25 [facility] Comment on above: Performed By: #### 1 353036 ####[facility] Jlr[address] [facility] [place] [address] Calcium 10.2 mg/dL Normal 8.6-10.3 [facility] Comment on above: Performed By: #### 1 401785 ####[facility] [address] [place] [address] Chloride 100 mmol/L Normal 98-107 [facility] Comment on above: Performed By: #### 1 540705 ####[facility] [address] [place] [address] Creatinine 1.76 mg/dL High 0.50-1.30 [facility] Comment on above: Performed By: #### 1 534656 ####[facility] [address] [place] [address] eGFR (MDRD) 40 mL/min/{1.73_m2} Normal [facility] Comment on above: Result Comment: Inte rpretation for Chronic Kidney Disease:Stages 1&2 >60 Healthy or potential kidney damage.Mild decrease of GFR.Stage 3 30-59 Moderate decrease of GFR.Stage 4 15-29 Severe decrease of GFR.Stage 5 <15 Kidney failure or on dialysis. Performed By: #### 1 127190 ####[facility] [address] [facility] [place] [address] Glucose mass conc 139 mg/dL High 70-100 [facility] Comment on above: Performed By: #### 1 097709 ####[facility] [address] [place] [address] Potassium molar conc 3.2 mmol/L Low 3.5-5.1 [facility] Comment on above: Performed By: #### 1 830322 ####[facility] [address] [place] [address] Protein 7.6 g/dL Normal 6.4-8.2 [facility] Comment on above: Performed By: #### 1 531501 ####[facility] [address] [place] [address] Sodium 142 mmol/L Normal 136-145 [facility] Comment on above: Performed By: #### 1 314395 ####[facility] [address] [facility] [place] [address] Urea nitrogen 46 mg/dL High 6-23 [facility] Comment on above: Performed By: #### 1 426286 ####[facility] [address] [facility] [address] Lipid Panelon 11-07-2016 Cholesterol 169 mg/dL Normal <200 [facility] Comment on above: Performed By: #### 1 733160 ####[facility] [address] [place] [address] Cholesterol in VLDL mass conc 30 mg/dL Abnormal <30 [facility] Comment on above: Performed By: #### 1 666768 ####[facility] [address] [place] [address] Cholesterol to HDL Ratio 3.1 {ratio} Normal [facility] Healthcare Comment on above: Performed By: #### 1 543844 ####[facility] [address] [place] [address] HDL Cholesterol 55 mg/dL Normal [facility] Healthcare Comment on above: Result Comment: Norm al Mod Risk High Risk5-9 >48 42-48 <4210- 14 >45 40-45 <4015-19 >38 34-38 <34Adult >39 Performed By: #### 1 648618 ####[facility] [address] [facility] [place] [address] LDL Cholesterol 84 mg/dL Normal <[address] [facility] Healthcare Comment on above: Performed By: #### 1 084896 ####[facility] [address] [place] [address] Triglyceride 152 mg/dL Abnormal <[address] [facility] Healthcare Comment on above: Result Comment: 150- 199 Borderline [id number] High>500 Very High Performed By: #### 1 555947 ####[facility] [address] [facility] [place] [address] Vital Signs Date Time Vital Sign Value Performing Clinician Facility 04-24-2023 09:03-0500 Body height 181.6 cm Sindi Foster MD Work Phone: [facility] 04-24-2023 09:03-0500 Body mass index (BMI) [Ratio] 34.93 kg/m2 Sindi Foster MD Work Phone: [facility] 04-24-2023 09:03-0500 Body weight 115.21 kg Sindi Foster MD Work Phone: [facility] 04-24-2023 09:03-0500 Diastolic blood pressure 93 mm[Hg] Sindi Foster MD Work Phone: [facility] 04-24-2023 09:03-0500 Systolic blood pressure 174 mm[Hg] Sindi Foster MD Work Phone: [facility] 04-18-2023 16:00-0500 Body height 180.34 cm Mina Reilly Other [employer] Other 04-18-2023 16:00-0500 Body mass index (BMI) [Ratio] 35.53 kg/m2 Mina Reilly Other [employer] Other 04-18-2023 16:00-0500 Body temperature 97.4 [degF] Mina Reilly Other [employer] Other 04-18-2023 16:00-0500 Body weight 115.58 kg Mina Reilly Other [employer] Other 04-18-2023 16:00-0500 Diastolic blood pressure 92 mm[Hg] Mina Reilly Other [employer] Other 04-18-2023 16:00-0500 Respiratory rate 18 /min Mina Reilly Other [employer] Other 04-18-2023 16:00-0500 SaO2% (BldA) [Mass fraction] 96 % Mina Reilly Other [employer] Other 04-18-2023 16:00-0500 Systolic blood pressure 155 mm[Hg] Mina Reilly Other [employer] Other 04-17-2023 10:42-0500 Body height 180.3 cm Viridiana Burgess DO Work Phone: [facility] 04-17-2023 10:42-0500 Body mass index (BMI) [Ratio] 35.43 kg/m2 Viridiana Burgess DO Work Phone: [facility] 04-17-2023 10:42-0500 Body weight 115.21 kg Viridiana Burgess DO Work Phone: [facility] 04-17-2023 10:42-0500 Diastolic blood pressure 80 mm[Hg] Viridiana Burgess DO Work Phone: [facility] 04-17-2023 10:42-0500 Heart rate 77 /min Viridiana Burgess DO Work Phone: [facility] 04-17-2023 10:42-0500 Systolic blood pressure 132 mm[Hg] Viridiana Burgess DO Work Phone: [facility] 04-04-2023 11:30-0500 Body height 180.34 cm Geeta Dumont Other [employer] Other 04-04-2023 11:30-0500 Body mass index (BMI) [Ratio] 35.84 kg/m2 Geeta Dumont Other [employer] Other 04-04-2023 11:30-0500 Body weight 116.58 kg Geeta Dumont Other [employer] Other 04-04-2023 11:30-0500 Diastolic blood pressure 88 mm[Hg] Geeta Dumont Other [employer] Other 04-04-2023 11:30-0500 Systolic blood pressure 140 mm[Hg] Geeta Dumont Other [employer] Other 03-20-2023 13:00-0500 Body height 180.34 cm Geeta Dumont Other [employer] Other 03-20-2023 13:00-0500 Body mass index (BMI) [Ratio] 35.98 kg/m2 Geeta Dumont Other [employer] Other 03-20-2023 13:00-0500 Body weight 117.03 kg Geeta Ernandezr Other [employer] Other 03-20-2023 13:00-0500 Diastolic blood pressure 86 mm[Hg] Geeta Awaisr Other [employer] Other 03-20-2023 13:00-0500 SaO2% (BldA) [Mass fraction] 100 % Geeta Awaisr Other [employer] Other 03-20-2023 13:00-0500 Systolic blood pressure 144 mm[Hg] Geeta Derekacher Other [employer] Other 03-05-2023 11:30-0500 Body height 180.34 cm Geeta Carringtonritabrynr Other [employer] Other 03-05-2023 11:30-0500 Body mass index (BMI) [Ratio] 34.86 kg/m2 Geeta Carringtonjuan ramonr Other [employer] Other 03-05-2023 11:30-0500 Body weight 113.4 kg Geeta Awaisr Other [employer] Other 03-05-2023 11:30-0500 Diastolic blood pressure 84 mm[Hg] Geeta Carringtonritaacher Other [employer] Other 03-05-2023 11:30-0500 SaO2% (BldA) [Mass fraction] 99 % Geeta Awaisr Other [employer] Other 03-05-2023 11:30-0500 Systolic blood pressure 150 mm[Hg] Geeta Tim Other [facility] [employer] Other 02-26-2023 11:48-0500 Body height 180.34 cm DO Teri Cedillocki Work Phone: [facility] 02-26-2023 11:48-0500 Body mass index (BMI) [Ratio] 34 kg/m2 DO Teri Cedillocki Work Phone: [facility] 02-26-2023 11:48-0500 Body weight 110.67 kg DO Teri Cedillocki Work Phone: [facility] 02-26-2023 11:27-0500 Body temperature 97.5 [degF] DO Teri Cedillocki Work Phone: [facility] 02-26-2023 11:27-0500 Diastolic blood pressure 94 mm[Hg] DO Teri Cedillocki Work Phone: [facility] 02-26-2023 11:27-0500 Heart rate 82 /min DO Teri Cedillocki Work Phone: [facility] 02-26-2023 11:27-0500 Respiratory rate 20 /min DO Teri Cedillocki Work Phone: [facility] 02-26-2023 11:27-0500 Systolic blood pressure 187 mm[Hg] DO Teri Cedillocki Work Phone: [facility] 02-21-2023 16:20-0500 Body height 180.34 cm Mina Reilly Other [facility] [employer] Other 02-21-2023 16:20-0500 Body mass index (BMI) [Ratio] 34.75 kg/m2 Mina Reilly Other [employer] Other 02-21-2023 16:20-0500 Body temperature 96.2 [degF] Mina Reilly Other [employer] Other 02-21-2023 16:20-0500 Body weight 113.04 kg Mina Reilly Other [employer] Other 02-21-2023 16:20-0500 Diastolic blood pressure 68 mm[Hg] Mina Reilly Other [employer] Other 02-21-2023 16:20-0500 Respiratory rate 18 /min Mina Reilly Other [employer] Other 02-21-2023 16:20-0500 SaO2% (BldA) [Mass fraction] 98 % Mina Reilly Other [employer] Other 02-21-2023 16:20-0500 Systolic blood pressure 109 mm[Hg] Mina Reilly Other [employer] Other 02-18-2023 09:00-0500 Body height 180.34 cm Ingris Lombardo Other [employer] Other 02-18-2023 09:00-0500 Body mass index (BMI) [Ratio] 34.17 kg/m2 Ingrisnaveed Lombardo Other [employer] Other 02-18-2023 09:00-0500 Body weight 111.13 kg Ingris Lombardo Other [employer] Other 02-18-2023 09:00-0500 Diastolic blood pressure 82 mm[Hg] Ingris Lombardo Other [facility] [employer] Other 02-18-2023 09:00-0500 SaO2% (BldA) [Mass fraction] 96 % Ingris Lombardo Other [facility] [employer] Other 02-18-2023 09:00-0500 Systolic blood pressure 132 mm[Hg] Ingris Lombardo Other [facility] [employer] Other 02-15-2023 12:00-0500 Diastolic blood pressure 87 mm[Hg] DO Teri Aragon Work Phone: [facility] 02-15-2023 12:00-0500 Heart rate 77 /min DO Teri Harperi Work Phone: [facility] 02-15-2023 12:00-0500 Respiratory rate 18 /min DO Teri Aragon Work Phone: [facility] 02-15-2023 12:00-0500 SaO2% (BldA) [Mass fraction] 98 % DO Teri Harperi Work Phone: [facility] 02-15-2023 12:00-0500 Systolic blood pressure 152 mm[Hg] DO Teri Harperi Work Phone: [facility] 02-15-2023 08:00-0500 Body temperature 98.5 [degF] DO Teri Harperi Work Phone: [facility] 02-14-2023 21:00-0500 Inhaled oxygen flow rate 6 L/min DO Teri Cedillocki Work Phone: [facility] 02-14-2023 13:47-0500 Body height 181.61 cm DO Teri Cedillocki Work Phone: [facility] 02-14-2023 13:47-0500 Body mass index (BMI) [Ratio] 33.6 kg/m2 DO Teri Aragon Work Phone: [facility] 02-14-2023 13:47-0500 Body weight 111 kg DO Teri Aragon Work Phone: [facility] 02-10-2023 12:33-0500 Diastolic blood pressure 75 mm[Hg] [facility] 02-10-2023 12:33-0500 Heart rate 75 /min [facility] 02-10-2023 12:33-0500 Respiratory rate 16 /min [facility] 02-10-2023 12:33-0500 SaO2% (BldA) [Mass fraction] 98 % [facility] 02-10-2023 12:33-0500 Systolic blood pressure 138 mm[Hg] [facility] 02-10-2023 08:00-0500 Body temperature 98 [degF] [facility] 02-10-2023 06:00-0500 Body weight 110 kg [facility] 02-08-2023 15:35-0500 Body height 180.34 cm [facility] 02-06-2023 20:00-0500 Diastolic blood pressure 76 mm[Hg] [facility] 02-06-2023 20:00-0500 Heart rate 35 /min [facility] 02-06-2023 20:00-0500 Respiratory rate 16 /min [facility] 02-06-2023 20:00-0500 SaO2% (BldA) [Mass fraction] 98 % [facility] 02-06-2023 20:00-0500 Systolic blood pressure 139 mm[Hg] [facility] 02-06-2023 17:31-0500 Body height 180.34 cm [facility] 02-06-2023 17:31-0500 Body weight 117.2 kg [facility] 02-06-2023 12:32-0500 Body temperature 97 [degF] [facility] 11-27-2022 14:33-0400 Body temperature 97.9 [degF] BILLET INSPECTORMelecio Dumont Work Phone: [facility] 11-27-2022 14:33-0400 Body weight 113.39 kg BILLET INSPECTORMelecio Ernandezr Work Phone: [facility] 11-27-2022 14:33-0400 Diastolic blood pressure 75 mm[Hg] BILLET INSPECTORMelecio Dumont Work Phone: [facility] 11-27-2022 14:33-0400 Heart rate 67 /min BILLET INSPECTORMelecio Ernandezr Work Phone: [facility] 11-27-2022 14:33-0400 Respiratory rate 16 /min BILLET INSPECTORMelecio Reedacher Work Phone: [facility] 11-27-2022 14:33-0400 SaO2% (BldA) [Mass fraction] 100 % BILLET INSPECTORMelecio Dumont Work Phone: [facility] 11-27-2022 14:33-0400 Systolic blood pressure 144 mm[Hg] BILLET INSPECTORMelecio Ernandezr Work Phone: [facility] 10-11-2022 14:00-0400 Body height 180.34 cm Geeta Tim Other [employer] Other 10-11-2022 14:00-0400 Body mass index (BMI) [Ratio] 34.31 kg/m2 Geeta Tim Other [employer] Other 10-11-2022 14:00-0400 Body weight 111.59 kg Geeta Tim Other [employer] Other 10-11-2022 14:00-0400 Diastolic blood pressure 82 mm[Hg] Geeta Dumont Other [employer] Other 10-11-2022 14:00-0400 SaO2% (BldA) [Mass fraction] 97 % Geeta Dumont Other [employer] Other 10-11-2022 14:00-0400 Systolic blood pressure 132 mm[Hg] Geeta Dumont Other [employer] Other 09-28-2022 06:55-0400 Body height 182.88 cm BILLET INSPECTOR Geeta Tim Work Phone: [facility] 09-28-2022 06:55-0400 Body weight 108.86 kg BILLET INSPECTOR Geeta Derekachemary Work Phone: [facility] 09-12-2022 09:00-0400 Body height 180.34 cm Geeta Dumont Other [employer] Other 09-12-2022 09:00-0400 Body mass index (BMI) [Ratio] 35.56 kg/m2 Geeta Dumont Other [employer] Other 09-12-2022 09:00-0400 Body weight 115.67 kg Geeta Dumont Other [employer] Other 09-12-2022 09:00-0400 Diastolic blood pressure 70 mm[Hg] Geeta Dumont Other [employer] Other 09-12-2022 09:00-0400 SaO2% (BldA) [Mass fraction] 97 % Geeta Dumont Other [employer] Other 09-12-2022 09:00-0400 Systolic blood pressure 124 mm[Hg] Geeta Tim Other [employer] Other 09-07-2022 09:27-0400 Body height 180.34 cm Teri Aragon Work Phone: [facility] 250 DO Work Phone: 09-07-2022 09:27-0400 Body mass index (BMI) [Ratio] 35.64 kg/m2 Teri Aragon Work Phone: [facility] 250 DO Work Phone: 09-07-2022 09:27-0400 Body surface area Derived from formula 2.34 m2 Teri Contreras Netoalirio Work Phone: [facility] 250 DO Work Phone: 09-07-2022 09:27-0400 Body weight 115.89 kg Teri Aragon Work Phone: [facility] 250 DO Work Phone: 09-07-2022 09:27-0400 Diastolic blood pressure 60 mm[Hg] Teri Aragon Work Phone: [facility] 250 DO Work Phone: 09-07-2022 09:27-0400 Heart rate 58 /min Teri Aragon Work Phone: [facility] 250 DO Work Phone: 09-07-2022 09:27-0400 Systolic blood pressure 120 mm[Hg] Teri Contreras Netoalirio Work Phone: [facility] 250 DO Work Phone: 09-04-2022 08:40-0400 Body height 180.34 cm Sabino Ding Other [employer] Other 09-04-2022 08:40-0400 Body mass index (BMI) [Ratio] 35.28 kg/m2 Sabino Ding Other [employer] Other 09-04-2022 08:40-0400 Body weight 114.76 kg Sabino Ding Other [employer] Other 09-04-2022 08:40-0400 Diastolic blood pressure 76 mm[Hg] Sabino Ding Other [employer] Other 09-04-2022 08:40-0400 Systolic blood pressure 140 mm[Hg] Sabino Ding Other [employer] Other 08-28-2022 08:00-0400 Body height 180.34 cm Geeta Dumont Other [employer] Other 08-28-2022 08:00-0400 Body mass index (BMI) [Ratio] 35.28 kg/m2 Geeta Dumont Other [employer] Other 08-28-2022 08:00-0400 Body weight 114.76 kg Geeta Dumont Other [employer] Other 08-28-2022 08:00-0400 Diastolic blood pressure 82 mm[Hg] Geeta Dumont Other [employer] Other 08-28-2022 08:00-0400 SaO2% (BldA) [Mass fraction] 97 % Geeta Dumont Other [employer] Other 08-28-2022 08:00-0400 Systolic blood pressure 162 mm[Hg] Geeta Dumont Other [facility] [employer] Other 07-24-2022 08:39-0400 Diastolic blood pressure 75 mm[Hg] BILLET INSPECTORMelecio Reedacher Work Phone: [facility] 07-24-2022 08:39-0400 Heart rate 74 /min BILLET INSPECTORMelecio Reedacher Work Phone: [facility] 07-24-2022 08:39-0400 Respiratory rate 16 /min BILLET INSPECTORMelecio Reedacher Work Phone: [facility] 07-24-2022 08:39-0400 SaO2% (BldA) [Mass fraction] 98 % BILLET INSPECTORMelecio Reedacher Work Phone: [facility] 07-24-2022 08:39-0400 Systolic blood pressure 147 mm[Hg] BILLET INSPECTORMelecio Ernandezr Work Phone: [facility] 07-24-2022 08:00-0400 Inhaled oxygen flow rate 3 L/min BILLET INSPECTORMelecio Ernandezr Work Phone: [facility] 07-24-2022 07:12-0400 Body height 180.34 cm BILLET INSPECTORMelecio Reedacher Work Phone: [facility] 07-24-2022 07:12-0400 Body temperature 97.7 [degF] BILLET INSPECTORMelecio Reedacher Work Phone: [facility] 07-24-2022 07:12-0400 Body weight 104.32 kg BILLET INSPECTORMelecio Reedacher Work Phone: [facility] 06-05-2022 09:38-0400 Diastolic blood pressure 71 mm[Hg] GOLDEN Reedacher Work Phone: [facility] 06-05-2022 09:38-0400 Heart rate 53 /min BILLET INSPECTOR Geeta Derekacher Work Phone: [facility] 06-05-2022 09:38-0400 Respiratory rate 16 /min BILLET INSPECTORMelecio Connor Charissarbacher Work Phone: [facility] 06-05-2022 09:38-0400 SaO2% (BldA) [Mass fraction] 98 % BILLET INSPECTOR Geeta Charissaritaacher Work Phone: [facility] 06-05-2022 09:38-0400 Systolic blood pressure 129 mm[Hg] BILLET INSPECTOR Geeta Derekacher Work Phone: [facility] 06-05-2022 09:00-0400 Inhaled oxygen flow rate 3 L/min BILLET INSPECTOR Geeta Derekacher Work Phone: [facility] 06-05-2022 07:49-0400 Body height 181.61 cm BILLET INSPECTOR Geeta Derekacher Work Phone: [facility] 06-05-2022 07:49-0400 Body weight 102.05 kg BILLET INSPECTOR Geeta Charissaritaacher Work Phone: [facility] 05-08-2022 10:30-0500 Diastolic blood pressure 74 mm[Hg] BILLET INSPECTOR Geeta Charissaritaacher Work Phone: [facility] 05-08-2022 10:30-0500 Heart rate 55 /min BILLET INSPECTOR Geeta Charissarbacher Work Phone: [facility] 05-08-2022 10:30-0500 Respiratory rate 16 /min BILLET INSPECTORMelecio ChangGeeta Charissarbacher Work Phone: [facility] 05-08-2022 10:30-0500 SaO2% (BldA) [Mass fraction] 97 % BILLET INSPECTOR Geeta Derekacher Work Phone: [facility] 05-08-2022 10:30-0500 Systolic blood pressure 134 mm[Hg] GOLDEN Changnifer Tim Work Phone: [facility] 05-08-2022 09:51-0500 Inhaled oxygen flow rate 3 L/min BILLET INSPECTORMelecio ChangGeeta Awaisr Work Phone: [facility] 05-08-2022 08:56-0500 Body height 182.88 cm BILLET INSPECTORMelecio ChangGeeta Derekmarian Work Phone: [facility] 05-08-2022 08:56-0500 Body temperature 97.7 [degF] BILLET INSPECTOR Geeta Derekbrynmary Work Phone: [facility] 05-08-2022 08:56-0500 Body weight 106.59 kg BILLET INSPECTOR Geeta Derekbrynr Work Phone: [facility] 04-26-2022 11:00-0500 Body height 180.34 cm Lavon Sandoval Other [employer] Other 04-26-2022 11:00-0500 Body mass index (BMI) [Ratio] 32.07 kg/m2 Lavon Sandoval Other [facility] [employer] Other 04-26-2022 11:00-0500 Body weight 104.33 kg Lavon Sandoval Other [facility] [employer] Other 04-03-2022 11:08-0500 Diastolic blood pressure 85 mm[Hg] GOLDEN Dumont Work Phone: [facility] 04-03-2022 11:08-0500 Heart rate 66 /min GOLDEN Dumont Work Phone: [facility] 04-03-2022 11:08-0500 Respiratory rate 18 /min GOLDEN Dumont Work Phone: [facility] 04-03-2022 11:08-0500 SaO2% (BldA) [Mass fraction] 98 % BILLET INSPECTOR Geeta Reedachemary Work Phone: [facility] 04-03-2022 11:08-0500 Systolic blood pressure 137 mm[Hg] BILLET INSPECTOR Geeta Carringtonrbacher Work Phone: [facility] 04-03-2022 08:11-0500 Body height 180.34 cm BILLET INSPECTOR Geeta Reedacher Work Phone: [facility] 04-03-2022 08:11-0500 Body temperature 98 [degF] BILLET INSPECTOR Geeta Reedacher Work Phone: [facility] 04-03-2022 08:11-0500 Body weight 108.86 kg BILLET INSPECTOR Geeta Reedacher Work Phone: [facility] 04-02-2022 12:30-0500 Body height 180.34 cm Geeta Tim Other [employer] Other 04-02-2022 12:30-0500 Body mass index (BMI) [Ratio] 33.19 kg/m2 Geeta Tim Other [employer] Other 04-02-2022 12:30-0500 Body temperature 98.2 [degF] Geeta Derekachemary Other [employer] Other 04-02-2022 12:30-0500 Body weight 107.96 kg Geeta Derekacher Other [employer] Other 04-02-2022 12:30-0500 Diastolic blood pressure 70 mm[Hg] Geeta Derekachemary Other [employer] Other 04-02-2022 12:30-0500 Respiratory rate 18 /min Geeta Carringtonrick Other [employer] Other 04-02-2022 12:30-0500 SaO2% (BldA) [Mass fraction] 98 % Geeta Ernandezmary Other [employer] Other 04-02-2022 12:30-0500 Systolic blood pressure 122 mm[Hg] Geeta Dumont Other [employer] Other 01-25-2022 09:52-0500 Body height 180.34 cm Teri Harperruss Work Phone: [employer] DO Work Phone: 01-25-2022 09:52-0500 Body mass index (BMI) [Ratio] 33.33 kg/m2 Teri Harperruss Work Phone: [facility] DO Work Phone: 01-25-2022 09:52-0500 Body surface area Derived from formula 2.27 m2 Teri Harperruss Work Phone: [facility] [employer] DO Work Phone: 01-25-2022 09:52-0500 Body weight 108.41 kg Teri Harperruss Work Phone: [employer] [facility] 250 DO Work Phone: 01-25-2022 09:52-0500 Diastolic blood pressure 70 mm[Hg] Teri Harperruss Work Phone: [employer] [facility] 250 DO Work Phone: 01-25-2022 09:52-0500 Heart rate 52 /min Teri Harperruss Work Phone: [facility] [employer] 250 DO Work Phone: 01-25-2022 09:52-0500 Systolic blood pressure 122 mm[Hg] Teri Aragon Work Phone: [facility] 250 DO Work Phone: 12-21-2021 09:07-0400 Body height 182.88 cm PHYSICIAN [facility] 12-21-2021 09:07-0400 Body mass index (BMI) [Ratio] 31.8 kg/m2 PHYSICIAN [facility] 12-21-2021 09:07-0400 Body weight 106.59 kg PHYSICIAN [facility] 12-21-2021 08:34-0400 Body temperature 97.2 [degF] PHYSICIAN [facility] 12-21-2021 08:34-0400 Diastolic blood pressure 94 mm[Hg] PHYSICIAN [facility] 12-21-2021 08:34-0400 Heart rate 73 /min PHYSICIAN [facility] 12-21-2021 08:34-0400 Respiratory rate 18 /min PHYSICIAN [facility] 12-21-2021 08:34-0400 Systolic blood pressure 172 mm[Hg] PHYSICIAN [facility] 12-15-2021 09:00-0400 Body height 180.34 cm Geeta Dumont Other [facility] [employer] Other 12-15-2021 09:00-0400 Body mass index (BMI) [Ratio] 32.35 kg/m2 Geeta Dumont Other [employer] Other 12-15-2021 09:00-0400 Body weight 105.24 kg Geeta Dumont Other [employer] Other 12-15-2021 09:00-0400 Diastolic blood pressure 77 mm[Hg] Geeta Dumont Other [employer] Other 12-15-2021 09:00-0400 SaO2% (BldA) [Mass fraction] 97 % Geeta Derekacher Other [employer] Other 12-15-2021 09:00-0400 Systolic blood pressure 135 mm[Hg] Geeta Derekacher Other [employer] Other 11-27-2021 11:30-0400 Body height 180.34 cm Geeta Derekacher Other [employer] Other 11-27-2021 11:30-0400 Body mass index (BMI) [Ratio] 32.35 kg/m2 Geeta Derekacher Other [employer] Other 11-27-2021 11:30-0400 Body weight 105.24 kg Geeta Derekacher Other [employer] Other 11-27-2021 11:30-0400 Diastolic blood pressure 80 mm[Hg] Geeta Derekacher Other [employer] Other 11-27-2021 11:30-0400 SaO2% (BldA) [Mass fraction] 97 % Geeta Derekacher Other [employer] Other 11-27-2021 11:30-0400 Systolic blood pressure 110 mm[Hg] Geeta Derekacher Other [employer] Other 11-10-2021 09:32-0400 Body height 182.88 cm DO Francisco [employer] Work Phone: [facility] 11-10-2021 09:32-0400 Body temperature 97.6 [degF] DO Francisco Li Work Phone: [facility] 11-10-2021 09:32-0400 Body weight 106.45 kg DO Francisco Li Work Phone: [facility] 11-10-2021 09:32-0400 Diastolic blood pressure 86 mm[Hg] DO Francisco Li Work Phone: [facility] 11-10-2021 09:32-0400 Heart rate 51 /min DO Francisco Li Work Phone: [facility] 11-10-2021 09:32-0400 Respiratory rate 18 /min DO Francisco Li Work Phone: [facility] 11-10-2021 09:32-0400 SaO2% (BldA) [Mass fraction] 97 % DO Francisco Li Work Phone: [facility] 11-10-2021 09:32-0400 Systolic blood pressure 164 mm[Hg] DO Francisco Li Work Phone: [facility] 10-30-2021 11:30-0400 Body height 180.34 cm Geeta Dumont Other [employer] Other 10-30-2021 11:30-0400 Body mass index (BMI) [Ratio] 33.05 kg/m2 Geeta Dumont Other [employer] Other 10-30-2021 11:30-0400 Body weight 107.5 kg Geeta Dumont Other [employer] Other 10-30-2021 11:30-0400 Diastolic blood pressure 64 mm[Hg] Geeta Dumont Other [employer] Other 10-30-2021 11:30-0400 Systolic blood pressure 110 mm[Hg] Geeta Carringtonritabrynmray Other [facility] [employer] Other 09-24-2021 16:00-0400 Body temperature 98.5 [degF] DO Francisco Li Work Phone: [facility] 09-24-2021 16:00-0400 Diastolic blood pressure 70 mm[Hg] DO Francisco Li Work Phone: [facility] 09-24-2021 16:00-0400 Heart rate 61 /min DO Francisco Li Work Phone: [facility] 09-24-2021 16:00-0400 SaO2% (BldA) [Mass fraction] 97 % DO Francisco Li Work Phone: [facility] 09-24-2021 16:00-0400 Systolic blood pressure 122 mm[Hg] DO Francisco Li Work Phone: [facility] 09-24-2021 12:00-0400 Respiratory rate 16 /min DO Francisco Li Work Phone: [facility] 09-24-2021 05:44-0400 Body weight 105.3 kg DO Francisco Li Work Phone: [facility] 09-23-2021 21:30-0400 Inhaled oxygen flow rate 6 L/min DO Francisco Li Work Phone: [facility] 09-22-2021 15:07-0400 Body height 180.34 cm DO Francisco Li Work Phone: [facility] 09-22-2021 15:07-0400 Body mass index (BMI) [Ratio] 32.8 kg/m2 DO Francisco Li Work Phone: [facility] 09-06-2021 00:00-0400 93 1 No PCP None -[facility] DO Work Phone: Comment on above: [id number] 08-22-2021 14:00-0400 Body height 180.34 cm Geeta Dumont Other [employer] Other 08-22-2021 14:00-0400 Body mass index (BMI) [Ratio] 32.49 kg/m2 Geeta Ernandezr Other [employer] Other 08-22-2021 14:00-0400 Body weight 105.69 kg Geeta Dumont Other [employer] Other 08-22-2021 14:00-0400 Diastolic blood pressure 70 mm[Hg] Geeta Dumont Other [employer] Other 08-22-2021 14:00-0400 SaO2% (BldA) [Mass fraction] 99 % Geeta Carringtonritabrynmary Other [employer] Other 08-22-2021 14:00-0400 Systolic blood pressure 120 mm[Hg] Geeta Ernandezr Other [employer] Other 06-12-2021 09:30-0400 Body height 180.34 cm Geeta Dumont Other [employer] Other 06-12-2021 09:30-0400 Body mass index (BMI) [Ratio] 33.61 kg/m2 Geeta Dumont Other [employer] Other 06-12-2021 09:30-0400 Body weight 109.32 kg Geeta Ernandezr Other [employer] Other 06-12-2021 09:30-0400 Diastolic blood pressure 80 mm[Hg] Geeta Reedmarian Other [employer] Other 06-12-2021 09:30-0400 SaO2% (BldA) [Mass fraction] 98 % Geeta Ernandezmary Other [employer] Other 06-12-2021 09:30-0400 Systolic blood pressure 118 mm[Hg] Geeta Ernandezmary Other [employer] Other 01-25-2021 08:49-0500 Body height 180.34 cm Francisco Li Work Phone: [facility] 250 DO Work Phone: 01-25-2021 08:49-0500 Body mass index (BMI) [Ratio] 33.89 kg/m2 Francisco Li Work Phone: [facility] DO Work Phone: 01-25-2021 08:49-0500 Body surface area Derived from formula 2.29 m2 Francisco Li Work Phone: [facility] DO Work Phone: 01-25-2021 08:49-0500 Body weight 110.22 kg Francisco Li Work Phone: [facility] 250 DO Work Phone: 01-25-2021 08:49-0500 Diastolic blood pressure 76 mm[Hg] Francisco Li Work Phone: [facility] 250 DO Work Phone: 01-25-2021 08:49-0500 Heart rate 51 /min Francisco Li Work Phone: [facility] 250 DO Work Phone: 01-25-2021 08:49-0500 Systolic blood pressure 140 mm[Hg] Francisco Li Work Phone: [facility] 250 DO Work Phone: 12-07-2020 09:07-0400 Diastolic blood pressure 71 mm[Hg] Francisco Li Work Phone: DL-Mdijuutgpn-NVG [facility] [place] Work Phone: 12-07-2020 09:07-0400 Systolic blood pressure 133 mm[Hg] Francisco Li Work Phone: OF-Uvuanetsjm-VKY [facility] [address] [place] Work Phone: 12-07-2020 09:05-0400 Body height 180.34 cm Francisco Li Work Phone: LV-Qszvheddyn-WKS [facility] [address] [place] Work Phone: 12-07-2020 09:05-0400 Body mass index (BMI) [Ratio] 34.73 kg/m2 Francisco Li Work Phone: YD-Rvqltzdryk-JMT [facility] [address] [place] Work Phone: 12-07-2020 09:05-0400 Body surface area Derived from formula 2.31 m2 Francisco Li Work Phone: LO-Hcchzaocgj-IYZ [facility] [address] [place] Work Phone: 12-07-2020 09:05-0400 Body temperature 96.6 [degF] Francisco Li Work Phone: VP-Bcxwjevszc-CGA [facility] [address] [place] Work Phone: 12-07-2020 09:05-0400 Body weight 112.95 kg Francisco Li Work Phone: NX-Zcfjsopisl-GIK [facility] [address] [place] Work Phone: 09-22-2021 09:05-0400 Diastolic blood pressure 76 mm[Hg] Francisco Li Work Phone: AG-Wqcdxgkpee-DYG [facility] [address] [place] Work Phone: 12-07-2020 09:05-0400 Heart rate 63 /min Francisco Li Work Phone: FD-Zryhfhrmnb-LKG [facility] [address] [place] Work Phone: 12-07-2020 09:05-0400 Respiratory rate 16 /min Francisco Li Work Phone: WE-Whkzjeyyyc-OMG [facility] [address] [place] Work Phone: 12-07-2020 09:05-0400 SaO2% (BldA) [Mass fraction] 96 % Francisco Li Work Phone: YT-Dcgnxiwhwj-JDS [facility] [address] [place] Work Phone: 12-07-2020 09:05-0400 Systolic blood pressure 137 mm[Hg] Francisco Li Work Phone: HQ-Xxauczqalx-EPN [facility] [address] [place] Work Phone: 08-25-2020 14:00-0400 Diastolic blood pressure 93 mm[Hg] Ulisses Nieves MD Work Phone: [employer] Work Phone: 08-25-2020 14:00-0400 Heart rate 64 /min Ulisses Nieves MD Work Phone: [employer] Work Phone: 08-25-2020 14:00-0400 Respiratory rate 10 /min Ulisses Nieves MD Work Phone: [employer] Work Phone: 08-25-2020 14:00-0400 SaO2% (BldA) [Mass fraction] 96 % Ulisses Nieves MD Work Phone: [employer] Work Phone: 08-25-2020 14:00-0400 Systolic blood pressure 133 mm[Hg] Ulisses Nievse MD Work Phone: [employer] Work Phone: 08-25-2020 13:29-0400 Body temperature 97 [degF] Ulisses Nieves MD Work Phone: [employer] Work Phone: 08-25-2020 11:17-0400 Body height 182.9 cm Ulisses Nieves MD Work Phone: [employer] Work Phone: 08-25-2020 11:17-0400 Body mass index (BMI) [Ratio] 33.23 kg/m2 Ulisses Nieves MD Work Phone: [employer] Work Phone: 08-25-2020 11:17-0400 Body weight 111.13 kg Ulisses Nieves MD Work Phone: [employer] Work Phone: 08-22-2020 14:29-0400 Body height 182.9 cm Stvz 1 [employer] Work Phone: 08-22-2020 14:29-0400 Body mass index (BMI) [Ratio] 33.23 kg/m2 Stv[facility] 1 [employer] Work Phone: 08-22-2020 14:29-0400 Body temperature 96.4 [degF] Stvz 1 [employer] Work Phone: 08-22-2020 14:29-0400 Body weight 111.13 kg Stvz 1 [employer] Work Phone: 08-22-2020 14:29-0400 Diastolic blood pressure 70 mm[Hg] Stvz 1 [employer] Work Phone: 08-22-2020 14:29-0400 Heart rate 48 /min Stvz 1 [employer] Work Phone: 08-22-2020 14:29-0400 Respiratory rate 20 /min Stvz 1 [employer] Work Phone: 08-22-2020 14:29-0400 SaO2% (BldA) [Mass fraction] 97 % Stvz 1 [facility] Work Phone: 08-22-2020 14:29-0400 Systolic blood pressure 132 mm[Hg] Stvz 1 [facility] Work Phone: 05-12-2020 09:18-0500 Body Temperature 97.6 [degF] [facility] 05-12-2020 09:18-0500 Body weight 122.42 kg [facility] 05-12-2020 09:18-0500 BP Diastolic 83 mm[Hg] [facility] 05-12-2020 09:18-0500 BP Systolic 148 mm[Hg] [facility] 05-12-2020 09:18-0500 Height 182.88 cm [facility] 05-12-2020 09:18-0500 Pulse (Heart Rate) 58 /min [facility] 05-12-2020 09:18-0500 Pulse Oximetry 94 % [facility] 05-12-2020 09:18-0500 Respiratory Rate 20 /min [facility] Encounters Encounter Date Encounter Type Care Provider Facility Start: 04-24-2023 Chart abstracting Sindi salmeron MD Work Phone: [facility] Start: 04-24-2023 End: 04-24-2023 ambulatory SINDI FOSTER Not Available Start: 04-24-2023 End: 04-24-2023 Office outpatient visit 15 minutes Sindi Foster MD Work Phone: [facility] Comment on above: 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 Start: 04-17-2023 Encounter for other preprocedural examination [facility] Start: 04-17-2023 End: 04-17-2023 Encounter for other preprocedural examination [facility] Start: 04-17-2023 End: 04-17-2023 ambulatory DO Teri Aragon Work Phone: [facility] Work Phone: Start: 04-17-2023 End: 04-17-2023 Patient encounter procedure DO Teri Aragon Work Phone: [facility] [place] Work Phone: Start: 04-17-2023 End: 04-17-2023 Office outpatient visit 25 minutes Viridiana Burgess DO Work Phone: [facility] Comment on above: Preoperative clearan ce; Amputation of right great toe (CMS/HCC); Atherosclerosis of [place] coronary artery of [place] heart without angina pectoris; Chronic atrial fibrillation (CMS/HCC); Mild hypertrophic obstructive cardiomyopathy (CMS/HCC); Status post angioplasty; Hyperlipidemia, unspecified hyperlipidemia type; Essential hypertension; Presence of Watchman left atrial appendage closure device; Former smoker Start: 04-17-2023 End: 04-17-2023 Preoperative state Viridiana Burgess DO Work Phone: [facility] Start: 04-05-2023 End: 04-05-2023 ambulatory Geeta Dumont Other [employer] Other Start: 04-05-2023 Telephone encounter Geeta cuevas [facility] Start: 04-04-2023 End: 04-04-2023 ambulatory Geeta Dumont Facility:[facility] Start: 04-04-2023 End: 04-04-2023 Patient encounter procedure DO Teri Harperi Work Phone: [facility] [place] Work Phone: Start: 04-04-2023 End: 04-04-2023 ambulatory DO Teri Branalenacki Work Phone: [facility] Work Phone: Start: 03-28-2023 End: 03-28-2023 ambulatory WEI SOTO Not Available Start: 03-27-2023 End: 03-27-2023 ambulatory Sindi Foster Jr Facility:[facility] Start: 03-27-2023 End: 03-27-2023 ambulatory DO Teri Branalenacki Work Phone: [facility] Work Phone: Start: 03-27-2023 End: 03-27-2023 Patient encounter procedure DO Teri Cedillocki Work Phone: [facility]XRay [place] Work Phone: Start: 03-25-2023 End: 03-25-2023 ambulatory Geeta Dumont Other [employer] Other Start: 03-25-2023 Telephone encounter Geeta [facility] Start: 03-22-2023 End: 03-22-2023 ambulatory Alton Espinoza Facility:[facility] Start: 03-22-2023 End: 03-22-2023 ambulatory DO Teri Branalenacki Work Phone: [facility] Work Phone: Start: 03-22-2023 End: 03-22-2023 Patient encounter procedure DO Teri Branalenacki Work Phone: [facility]Ultras[facility] [place] Work Phone: Start: 03-20-2023 Office outpatient vi sit 25 minutes Geeta Dumont [facility] Start: 03-20-2023 End: 03-20-2023 ambulatory SINDI FOSTER [employer] Other Start: 03-20-2023 End: 03-20-2023 Patient encounter procedure DO Teri Cedilloraymondruss Work Phone: [facility] [place] Work Phone: Start: 03-20-2023 End: 03-20-2023 Patient encounter procedure DO Teri Cedilloraymondruss Work Phone: [facility] Work Phone: Start: 03-13-2023 End: 03-13-2023 ambulatory Prashant Salinas Other [employer] Other Start: 03-13-2023 Telephone encounter Prashant Salinas [facility] Start: 03-08-2023 End: 03-08-2023 ambulatory Geeta Dumont Other [employer] Other Start: 03-08-2023 Telephone encounter Geeta Henry her [facility] Start: 03-07-2023 End: 03-07-2023 ambulatory Geeta Dumont Facility:[facility] Start: 03-07-2023 End: 03-07-2023 Patient encounter procedure DO Teri Aragon Work Phone: [facility] [place] Work Phone: Start: 03-05-2023 End: 03-05-2023 ambulatory Geeta Dumont Other [employer] Other Start: 03-05-2023 Office outpatient vi sit 25 minutes Geeta Dumont [facility] Start: 03-05-2023 Telephone encounter Geeta [facility] Start: 03-05-2023 End: 03-05-2023 Patient encounter procedure DO Teri Aragon Work Phone: [facility] Work Phone: Start: 03-01-2023 End: 03-01-2023 ambulatory Mina Reilly Other [employer] Other Start: 03-01-2023 Telephone encounter Mina Appiahabundio [facility] Start: 02-26-2023 End: 02-26-2023 ambulatory Teri Aragon Facility:[facility] Start: 02-26-2023 End: 02-26-2023 ambulatory DO Teri Cedilloraymondruss Work Phone: [facility] Work Phone: Start: 02-26-2023 End: 02-26-2023 Discharged Recurring DO Teri Aragon Work Phone: [facility] Work Phone: Start: 02-26-2023 Registered Recurring DO Bandar Aragon Work Phone: [facility] [place] Work Phone: Start: 02-21-2023 Office outpatient vi sit 25 minutes Davidruddy Tommie [facility] Neph[facility] Start: 02-21-2023 End: 02-21-2023 ambulatory TERI ARAGON [facility] [employer] Other Start: 02-21-2023 End: 02-21-2023 Patient encounter procedure DO Teri Cedilloraymondruss Work Phone: [facility]CT Scan [place] Work Phone: Start: 02-21-2023 End: 02-21-2023 Patient encounter procedure DO Teri Aragon Work Phone: [facility] Physician [facility] Neph[facility] Work Phone: Start: 02-18-2023 Telephone encounter Ingris Echevarriajulien garrett [facility] Start: 02-18-2023 Transitional care reta paco srvc 14 day discharge Ingris Echevarriaesvin [facility] Start: 02-18-2023 End: 02-18-2023 ambulatory DARIO BOLDEN Not Available Start: 02-18-2023 End: 02-18-2023 ambulatory DO Teri Aragon Work Phone: [facility] Work Phone: Start: 02-18-2023 End: 02-18-2023 Patient encounter procedure DO Teri Aragon Work Phone: [facility] [place] Work Phone: Start: 02-18-2023 End: 02-18-2023 Patient encounter procedure DO Teri Aragon Work Phone: [facility] Work Phone: Start: 02-12-2023 End: 02-15-2023 Evaluation and management of inpatient Teri Aragon Facility:[facility] Start: 02-12-2023 End: 02-15-2023 Evaluation and management of inpatient DO Teri Aragon Work Phone: [facility] Work Phone: Start: 02-11-2023 End: 02-11-2023 ambulatory Ingris Lombardo Other [employer] Other Start: 02-11-2023 Telephone encounter Ingris Echevarriajulien garrett [facility] Start: 02-10-2023 End: 02-10-2023 ambulatory Teri Aragon Facility:[facility] Start: 02-10-2023 End: 02-10-2023 Patient encounter procedure [facility]-Electrodiagnostics Work Phone: Start: 02-08-2023 End: 02-10-2023 Evaluation and management of inpatient Subhash Duckworth Facility:[facility] Start: 02-08-2023 End: 02-10-2023 Evaluation and management of inpatient [facility] Work Phone: Start: 02-06-2023 Evaluation and manag ement of inpatient [facility] Work Phone: Start: 02-06-2023 observation encounter NON STAFF [facility] Work Phone: Start: 02-04-2023 End: 02-04-2023 ambulatory WEI SOTO Not Available Start: 01-28-2023 End: 01-28-2023 ambulatory Dario Bolden Facility:[facility] Start: 01-28-2023 End: 01-28-2023 ambulatory NON STAFF [facility] Work Phone: Start: 01-28-2023 End: 01-28-2023 Patient encounter procedure [facility] [place] Work Phone: Start: 01-23-2023 End: 01-24-2023 ambulatory DARIO BOLDEN Not Available Start: 01-14-2023 End: 01-14-2023 ambulatory Sindi Foster Jr Facility:[facility] Start: 01-14-2023 End: 01-14-2023 Patient encounter procedure [facility] [place] Work Phone: Start: 12-19-2022 End: 12-19-2022 ambulatory Teri Aragon Facility:[facility] Start: 12-19-2022 End: 12-19-2022 ambulatory GOLDEN Dumont Work Phone: [facility] Work Phone: Start: 12-19-2022 End: 12-19-2022 Patient encounter procedure GOLDEN Dumont Work Phone: [facility] [place] Work Phone: Start: 12-12-2022 End: 12-12-2022 ambulatory Ingris Rivasjerome Other [facility] [employer] Other Start: 12-12-2022 Telephone encounter Ingris Minh garrett [facility] Start: 12-06-2022 End: 12-06-2022 ambulatory Sindi Foster Facility:[facility] Start: 12-05-2022 Telephone encounter Teri Aragon Work Phone: [facility] 250 DO Work Phone: Start: 11-27-2022 ambulatory Teri Aragon Facil ity:[facility] Start: 11-27-2022 Registered Recurring GOLDEN Dumont Work Phone: [facility] Work Phone: Start: 11-26-2022 End: 11-26-2022 ambulatory Vivian Del Rosario Facility:[facility] Start: 11-26-2022 End: 11-26-2022 ambulatory GOLDEN Dumont Work Phone: [facility] Work Phone: Start: 11-26-2022 End: 11-26-2022 Patient encounter procedure GOLDEN Dumont Work Phone: [facility] [place] Work Phone: Start: 11-12-2022 End: 11-12-2022 ambulatory NON STAFF Facility:[facility] Start: 11-12-2022 End: 11-12-2022 ambulatory GOLDEN Dumont Work Phone: [facility] Work Phone: Start: 11-12-2022 End: 11-12-2022 Patient encounter procedure GOLDEN Dumont Work Phone: [facility] [place] Work Phone: Start: 11-01-2022 AUDIT Teri Contreras Net[employer] Work Phone: [facility] 250 DO Work Phone: Start: 10-16-2022 End: 10-16-2022 ambulatory Geeta Dumont Other [employer] Other Start: 10-16-2022 Telephone encounter Geeta Henry her [facility] Start: 10-11-2022 End: 10-11-2022 ambulatory Geeta Dumont Other [facility] [employer] Other Start: 10-11-2022 Office outpatient vi sit 25 minutes Geeta Dumont [facility] Start: 10-10-2022 End: 10-10-2022 ambulatory Geeta Dumont Facility:[facility] Start: 10-10-2022 End: 10-10-2022 ambulatory BILLET INSPECTOR Geeta Dumont Work Phone: [facility] Work Phone: Start: 10-10-2022 End: 10-10-2022 Patient encounter procedure BILLET INSPECTOR Geeta Dumont Work Phone: [facility] [place] Work Phone: Start: 10-01-2022 End: 10-01-2022 ambulatory Geeta Dumont Other [employer] Other Start: 10-01-2022 Telephone encounter Geeta Henry her [employer] Start: 09-28-2022 Telephone encounter Geeta Henry her [facility] Start: 09-28-2022 End: 09-28-2022 ambulatory BILLET INSPECTOR Geeta Dumont Work Phone: [employer] Other Start: 09-28-2022 End: 09-28-2022 Patient encounter procedure BILLET INSPECTOR Geeta Dumont Work Phone: [facility] [place] Work Phone: Start: 09-12-2022 End: 09-12-2022 ambulatory Geeta Dumont Other [facility] [employer] Other Start: 09-12-2022 Office outpatient vi sit 15 minutes Geeta Dumont [facility] Start: 09-10-2022 End: 09-10-2022 ambulatory Geeta Dumont Other [facility] [employer] Other Start: 09-10-2022 Telephone encounter Geeta Henry [facility] Start: 09-07-2022 FUV, Provider: Viridiana Burgess, Status: Pen, Time: 9:20 AM Teri Aragon Work Phone: [facility] 250 DO Work Phone: Start: 09-07-2022 Office outpatient vi sit 25 minutes Teri Aragon Work Phone: [facility] 250 DO Work Phone: Start: 09-07-[address] Stone Ma roseanne Burgess Facility: Start: 09-06-2022 Chart Update Teri amezquita Work Phone: [facility] 250 DO Work Phone: Start: 09-05-2022 End: 09-05-2022 ambulatory Geeta Dumont Facility:[facility] Start: 09-05-2022 End: 09-05-2022 ambulatory BILLET INSPECTOR Geeta Dumont Work Phone: [facility] Work Phone: Start: 09-05-2022 End: 09-05-2022 Patient encounter procedure BILLET INSPECTORMelecio Dumont Work Phone: [facility] [place] Work Phone: Start: 09-04-2022 End: 09-04-2022 ambulatory Sabino Ding Other [facility] [employer] Other Start: 09-04-2022 Office outpatient ne w 30 minutes Sabino Ding [facility] Neurosurgery Start: 09-04-2022 Telephone encounter Teri Diane Aragon Work Phone: [facility] 250 DO Work Phone: Start: 09-03-2022 End: 09-03-2022 ambulatory Geeta Dumont Facility:[facility] Start: 09-03-2022 End: 09-03-2022 ambulatory BILLET INSPECTORMelecio Dumont Work Phone: [facility] Work Phone: Start: 09-03-2022 End: 09-03-2022 Patient encounter procedure GOLDEN Dumont Work Phone: [facility]-XRay [facility] Work Phone: Start: 08-30-2022 End: 08-30-2022 ambulatory Geeta Dumont Other [facility] [employer] Other Start: 08-30-2022 Telephone encounter Geeta Henry her [facility] [employer] Start: 08-29-2022 Telephone encounter Geeta Henry her [facility] [employer] Start: 08-29-2022 End: 08-29-2022 ambulatory BILLET INSPECTORMelecio Dumont Work Phone: [facility] Work Phone: Start: 08-29-2022 End: 08-29-2022 Patient encounter procedure BILLET INSPECTOR Geeta Dumont Work Phone: [facility] [place] Work Phone: Start: 08-28-2022 Office outpatient vi sit 25 minutes Geeta Dumont [facility] Start: 08-28-2022 End: 08-28-2022 ambulatory Geeta Dumont [employer] Other Start: 08-28-2022 End: 08-28-2022 Patient encounter procedure BILLET INSPECTOR Geetaivon Dumont Work Phone: [facility] [place] Start: 08-20-2022 End: 08-20-2022 ambulatory Lavon Sandoval Other [employer] Other Start: 08-20-2022 Telephone encounter Lavon Carriz[facility] Start: 07-24-2022 (Procedure) Short Lavon Sandoval [facility] Start: 07-24-2022 End: 07-24-2022 Admission to same day surgery center BILLET INSPECTOR Geeta Dumont Work Phone: [facility] Work Phone: Start: 07-24-2022 End: 07-24-2022 ambulatory BILLET INSPECTORMelecio Dumont Work Phone: [employer] Other Start: 07-02-2022 Telephone encounter Geeta cuevas [facility] Start: 07-02-2022 End: 07-02-[address] Viridiana Burgess [employer] Other Start: 06-26-2022 End: 06-26-2022 ambulatory Lavon Sandoval Other [employer] Other Start: 06-26-2022 Telephone encounter Lavon Car[facility] Start: 06-18-2022 End: 06-18-2022 ambulatory Lavon Sandoval Other [employer] Other Start: 06-18-2022 Telephone encounter Lavon Sandoval [facility] [place] Start: 06-14-2022 End: 06-14-2022 ambulatory Lavon Sandoval Other [employer] Other Start: 06-14-2022 Office outpatient vi sit 25 minutes Lavon Jaime [facility] [place] Start: 06-05-2022 (Procedure) Jo Sandoval [facility] Start: 06-05-2022 End: 06-05-2022 ambulatory Geeta Dumont Facility:[facility] Start: 06-05-2022 End: 06-05-2022 Admission to same day surgery center BILLET INSPECTORMelecio Dumont Work Phone: [facility] Work Phone: Start: 06-05-2022 End: 06-05-2022 ambulatory GOLDEN Dumont Work Phone: [facility] Work Phone: Start: 06-01-2022 Telephone encounter Teri Aragon Work Phone: [facility] 250 DO Work Phone: Start: 05-18-2022 Rx Renewal Teri amezquita Work Phone: [facility] 250 DO Work Phone: Start: 05-17-2022 End: 05-17-2022 ambulatory Lavon Sandoval Other [employer] Other Start: 05-17-2022 Office outpatient vi sit 25 minutes Lavon Pegueroleida [facility] Start: 05-08-2022 (Procedure) Jo Sandoval [facility] Start: 05-08-2022 End: 05-08-2022 ambulatory Geeta Dumont Facility:[facility] Start: 05-08-2022 End: 05-08-2022 Admission to same day surgery center BILLET INSPECTOR Geeta Dumont Work Phone: [facility] Work Phone: Start: 05-08-2022 End: 05-08-2022 ambulatory BILLET INSPECTOR Geeta Dumont Work Phone: [facility] Work Phone: Start: 04-26-2022 End: 04-26-2022 ambulatory Lavon Sandoval Other [employer] Other Start: 04-26-2022 Office outpatient ne w 45 minutes Lavon Sandoval [facility] Start: 04-26-2022 End: 04-26-2022 Patient encounter procedure BILLET INSPECTOR Geeta Dumont Work Phone: [facility] Start: 04-23-2022 End: 04-23-2022 ambulatory Geeta Dumont Other [employer] Other Start: 04-23-2022 Telephone encounter Geeta Carringtonbharati her [facility] [place] Start: 04-20-2022 End: 04-20-2022 ambulatory Geeta Dumont Other [employer] Other Start: 04-20-2022 Telephone encounter Geeta Carringtonbharati her [facility] [place] Start: 04-16-2022 End: 04-16-2022 ambulatory Geeta Tim Other [employer] Other Start: 04-16-2022 Telephone encounter Geeta Carringtonbharati her [facility] [place] Start: 04-13-2022 Rx Renewal Teri amezquita Work Phone: [facility] 250 DO Work Phone: Start: 04-12-2022 End: 04-12-2022 ambulatory BILLET INSPECTOR Geeta Dumont Work Phone: [facility] Work Phone: Start: 04-12-2022 End: 04-12-2022 Patient encounter procedure BILLET INSPECTOR Geeta Dumont Work Phone: [facility] [place] Work Phone: Start: 04-10-2022 Rx Renewal Teri amezquita Work Phone: [facility] 250 DO Work Phone: Start: 04-07-2022 End: 04-07-2022 ambulatory Geeta Dumont Other [employer] Other Start: 04-07-2022 Telephone encounter Geeta Henry her [employer] Start: 04-03-2022 End: 04-03-2022 Admission to same day surgery center BILLET INSPECTOR Geeta Dumont Work Phone: [facility] Work Phone: Start: 04-02-2022 End: 04-02-2022 ambulatory Geeta Dumont Other [employer] Other Start: 04-02-2022 Patient encounter procedure Geeta Dumont [facility] Start: 03-29-2022 Chart Update Teri amezquita Work Phone: [facility] 250 DO Work Phone: Start: 03-28-2022 Rx Renewal Teri amezquita Work Phone: [facility] 250 DO Work Phone: Start: 03-28-2022 End: 03-28-2022 ambulatory BILLET INSPECTOR Geeta Carringtonrick Work Phone: [facility] Work Phone: Start: 03-28-2022 End: 03-28-2022 Patient encounter procedure BILLET INSPECTORMelecio Carringtonritamarian Work Phone: [facility] [place] Work Phone: Start: 03-26-2022 End: 03-26-2022 ambulatory Geeta Carringtonjuan ramonmary Other [employer] Other Start: 03-26-2022 Telephone encounter Geeta Henry her [facility] Start: 03-05-2022 End: 03-05-2022 ambulatory Geeta Carringtonrick Other [employer] Other Start: 03-05-2022 Telephone encounter Geeta Henry her [facility] Start: 01-25-2022 Office outpatient vi sit 25 minutes Teri Aragon Work Phone: [facility] 250 DO Work Phone: Start: 01-25-[address] Teri Aragon Facility: Start: 01-25-2022 Rx Renewal Teri amezquita Work Phone: [facility] 250 DO Work Phone: Start: 01-17-2022 End: 01-17-2022 ambulatory Geeta Tim Other [employer] Other Start: 01-17-2022 Telephone encounter Geeta Henry her [facility] Start: 01-04-2022 End: 01-04-2022 ambulatory Geeta Tim Other [employer] Other Start: 01-04-2022 Telephone encounter Geeta Elaine her [employer] Start: 01-02-2022 End: 01-02-2022 ambulatory DO Teri Cedillobjorn Work Phone: [facility] Work Phone: Start: 01-02-2022 End: 01-02-2022 Patient encounter procedure DO Teri Duquealirio Work Phone: [facility] [address] Start: 01-01-2022 End: 01-01-2022 ambulatory Geeta Dumont Other [employer] Other Start: 01-01-2022 Telephone encounter Geeta Elaine her [facility] Start: 12-27-2021 End: 12-28-2021 ambulatory Dario Bolden Facility:[facility] Start: 12-27-2021 End: 12-27-2021 Lab Drop off Dario Bolden [facility] Start: 12-21-2021 End: 12-21-2021 ambulatory PHYSICIAN NO [facility] Work Phone: Start: 12-21-2021 End: 12-21-2021 Discharged Recurring PHYSICIAN NO [facility] [place] Start: 12-18-2021 Chart Update No PCP None [facility]iol [facility] Brandi Mathur [address] [place] Work Phone: Start: 12-15-2021 End: 12-15-2021 ambulatory Geeta Dumont Other [employer] Other Start: 12-15-2021 Office outpatient vi sit 25 minutes Geeta Dumont [facility] Start: 12-11-2021 End: 12-11-2021 Departed Referred PHYSICIAN NO [facility] [place] Start: 12-05-2021 End: 12-05-2021 Patient encounter procedure DPM Alden Lal Work Phone: [facility] [address] Start: 11-30-2021 End: 11-30-2021 ambulatory Geeta Dumont Other [employer] Other Start: 11-30-2021 Telephone encounter Geeta Carringtonbharati her [employer] Start: 11-28-2021 End: 11-28-2021 ambulatory Geeta Dumont Facility:[facility] Start: 11-27-2021 End: 11-27-2021 ambulatory Geeta Tim Other [employer] Other Start: 11-27-2021 Office outpatient vi sit 15 minutes Geeta Dumont [facility] Start: 11-21-2021 End: 11-21-2021 Departed Referred DO Francisco Li Work Phone: [facility] Start: 11-21-2021 End: 11-21-2021 ambulatory Geeta Dumont Other [employer] Other Start: 11-21-2021 Telephone encounter Geeta Elaine her [facility] Start: 11-10-2021 End: 11-10-2021 Registered Recurring DO Francisco Li Work Phone: [facility] Start: 11-08-2021 End: 11-08-2021 Departed Referred DO Francisco Li Work Phone: [facility] [place] Start: 10-30-2021 End: 10-30-2021 ambulatory Geeta Dumont Other [employer] Other Start: 10-30-2021 Encounter for other preprocedural examination Geeta Dumont [facility] Start: 10-30-2021 Office outpatient vi sit 25 minutes Geeta Carringtonrick [facility] Start: 10-27-2021 End: 10-29-2021 Subsequent hospital visit by physician Sta X-Ray [facility] Radiology Comment on above: Arrived Start: 10-27-2021 End: 11-01-2021 ambulatory RUSSELL LI [facility] Start: 10-13-2021 End: 10-13-2021 ambulatory Geeta Tim Other [employer] Other Start: 10-13-2021 Telephone encounter Geeta Carringtonbharati her [employer] Start: 10-09-2021 End: 10-09-2021 ambulatory Geeta Carringtonjuan ramonr Other [employer] Other Start: 10-09-2021 Telephone encounter Geeta Carringtonbharati her [facility] Start: 09-29-2021 End: 09-29-2021 ambulatory Geeta Carringtonjuan ramonr Other [employer] Other Start: 09-29-2021 Office outpatient vi sit 15 minutes Geeta Tim [facility] Start: 09-29-2021 Telephone encounter Geeta Henry her [facility] Start: 09-27-2021 End: 09-27-2021 Patient encounter procedure DO Francisco Guillermo Work Phone: [facility] [place] Start: 09-20-2021 End: 09-24-2021 Evaluation and management of inpatient DO Francisco Li Work Phone: [facility] Start: 09-20-2021 End: 09-20-2021 Departed Referred DO Francisco Li Work Phone: [facility] [place] Start: 09-13-2021 Chart Update No PCP None [facility] 250 DO Work Phone: Start: 09-13-2021 End: 09-13-2021 ambulatory Geeta Dumont Other [employer] Other Start: 09-13-2021 Telephone encounter Geeta Henry her [facility] Start: 09-06-2021 End: 09-06-2021 Patient encounter procedure DO Francisco Li Work Phone: [facility] [place] Start: 08-23-2021 End: 08-23-2021 ambulatory Geeta Dumont Other [employer] Other Start: 08-23-2021 Telephone encounter Geeta Elaine her [employer] Start: 08-22-2021 End: 08-22-2021 Patient encounter procedure DO Francisco Li Work Phone: [facility]-XRay [place] Start: 08-22-2021 End: 08-22-2021 ambulatory Geeta Dumont Other [employer] Other Start: 08-22-2021 Office outpatient vi sit 25 minutes Geeta Dumont [facility] Start: 06-23-2021 End: 08-23-2021 ambulatory TERI ARAGON Facility:[facility] Start: 06-14-2021 End: 06-14-2021 ambulatory Geeta Dumont Other [employer] Other Start: 06-14-2021 Telephone encounter Geeta Elaine her [employer] Start: 06-12-2021 End: 06-12-2021 ambulatory Geeta Dumont Other [employer] Other Start: 06-12-2021 Office outpatient ne w 30 minutes Geeta Dumont [facility] Start: 05-03-2021 Rx Renewal Francisco Garg on Work Phone: [facility] Heart-[place] 250 DO Work Phone: Start: 02-19-2021 Rx Renewal Francisco Danny Forest on Work Phone: [facility] Heart-[place] 250 DO Work Phone: Start: 01-25-2021 Office outpatient vi sit 25 minutes Francisco Li Work Phone: [facility] Heart-[place] [address] [place] Work Phone: Start: 01-25-2021 Patient encounter procedure Francisco Li Work Phone: [facility]-[place] 250 DO Work Phone: Start: 01-24-2021 AUDIT Francisco Garg on Work Phone: AR-Fycrdqejdx-Tkufkv 1800 Wound Work Phone: Start: 01-19-2021 Chart Update Francisco Garg on Work Phone: RU-Hbqlehqvut-XCO [facility] [address] [place] Work Phone: Start: 01-17-2021 ambulatory Criselda Renee Facilit y: [facility] Start: 01-10-2021 Preoperative state Francisco Wetzel son Other Phone: [facility] Start: 01-10-2021 End: 01-10-2021 Evaluation and management of inpatient Francisco Jose [facility] Cardiac International Marketing Intern Rm 02 Start: 01-04-2021 AUDIT Francisco Garg on Work Phone: LX-Vcbxjcpzub-Hiklgab Work Phone: Start: 12-19-2020 AUDIT Francisco Garg on Work Phone: EJ-Srdimnwybn-XFR [facility] [address] [place] Work Phone: Start: 12-07-2020 Office outpatient ne w 45 minutes Francisco Li Work Phone: DH-Xkckvtvudn-FQX [place] 1800 [place] Work Phone: Start: 08-25-2020 End: 08-25-[address] [facility] Start: 08-25-2020 End: 08-25-2020 Subsequent hospital visit by physician Ulisses Nieves MD Work Phone: [facility] Start: 08-22-2020 End: 08-27-2020 ambulatory MARGARET [facility] Start: 08-22-2020 End: 08-26-2020 Subsequent hospital visit by physician [place] Pat 1 [place] Pre-Admit Testing Start: 07-26-2020 End: 07-26-2020 [facility] Start: 07-22-2020 End: 07-22-2020 Subsequent hospital visit by physician [place] [facility] [place] Comment on above: COVID-19 ruled out b y laboratory testing (Primary Dx) Start: 07-02-2020 End: 07-03-2020 [facility] Start: 07-02-2020 End: 07-02-2020 Patient encounter status Stcz Schedule [facility]CZ Covid Scre ening Start: 07-02-2020 End: 07-02-2020 Subsequent hospital visit by physician Vita Covid Screening Schedule [facility] Covid Screening Comment on above: Preop testing (Prima ry Dx) Start: 05-12-2020 Registered Recurring [facility] Start: 03-30-2019 End: 04-01-2019 Subsequent hospital visit by physician St [facility] CT Scan Comment on above: Cough; Hemoptysis; SOB (shortness of breath) SOB (shortness of br eath); Hemoptysis Start: 09-27-2017 End: 09-27-2017 Patient encounter ESSENCE MARTÍNEZ Facility:[facility] Start: 09-23-2017 Patient encounter PAULA BERGER Facility: Start: 11-16-2016 End: 11-16-2016 Patient encounter ESSENCE MARTÍNEZ Facility:[facility] Start: 11-07-2016 Patient encounter ESSENCE Magallanes ity:[id number] Patient encounter procedure Francisco [facility] Procedures Date Procedure Procedure Detail Performing Clinician Start: 04-17-2023 ECG 12-LEAD TERI MYERS Start: 04-17-2023 Ecg routine ecg w/le ast 12 lds w/i&r Viridiana Burgess DO Work Phone: Start: 03-22-2023 Pulse volume recorde r pneumoplethysmography [...] bone study Start: 09-28-2022 MRI of head BILLET INSPECTORMelecio Dumont Work Phone: Start: 09-03-2022 X-ray of cervical spine BILLET INSPECTOR Geeta Carringtonrick Work Phone: Start: 08-28-2022 Plain chest X-ray BILLET INSPECTOR Geeta Derekbrynmary Work Phone: Start: 07-24-2022 Local anesthetic lum bar facet joint nerve block BILLET INSPECTORMelecio Carringtonrick Work Phone: Start: 06-05-2022 Local anesthetic lum bar facet joint nerve block BILLET INSPECTOR Geeta Ernandezmary Work Phone: Start: 05-08-2022 Local anesthetic lum bar facet joint nerve block BILLET INSPECTORMelecio Dumont Work Phone: Start: 04-26-2022 X-ray of lumbar spin e, four views BILLET INSPECTORMelecio Carringtonrick Work Phone: Start: 04-12-2022 Pulse volume recorde r pneumoplethysmography BILLET INSPECTORMelecio Connor Tim Work Phone: Start: 04-03-2022 Screening colonoscopy A PRN Geeta Carringtonrick Work Phone: Start: 01-02-2022 MRI of cervical spin e without contrast DO Teri Aundrea Work Phone: Start: 10-27-2021 Radiologic exam chest [...] Phone: Start: 08-25-2020 Glucose blood reagent strip Uilsses Nieves MD Work Phone: Start: 07-22-2020 COVID-19 Tho David reyes MD Work Phone: Start: 03-30-2019 Radiologic exam chest 2 views Alfonso Wesley MD Start: 03-30-2019 Ct thorax w/o contrast material Alfonso Wesley MD Start: 12-17-2018 Lipid 1996 panel - S elmira or Plasma Viridiana Aditya DO Work Phone: Start: 08-25-2018 CT chest w con Francisco danielle Start: 07-22-2018 Plain chest X-ray Js Li Start: 07-29-2017 CT abdomen pelvis wo con Francisco Li Start: 07-29-2017 CT chest wo con Francisco Li Start: 01-16-2017 CT abdomen pelvis wo con Francisco Li Start: 01-16-2017 CT chest wo con Francisco Li Aerobic microbial culture DO Francisco Guillermo Work Phone: Aerobic microbial culture DO Franciscojolene Li Work Phone: Aerobic microbial culture DO Francisco Li Work Phone: Aerobic microbial culture DP Hyun Lal Work Phone: Aerobic microbial culture PH YSICIAN NO FAMILY Amputation of toe Teri Aragon Work Phone: Anaerobic microbial culture DO Francisco Li Work Phone: Appendectomy Francisco scherer Work Phone: Atrial appendage adán sure device insertion Teri Aragon Work Phone: Atrial cardioversion Francisco Li Work Phone: Colonoscopy Francisco scherer Work Phone: Comment on above: [id number]; Esophagogastrostomy, antesternal or antethoracic Francisco Li Work Phone: Hammer toe operation Teri Contreras Aundrea Work Phone: Hernia repair Francisco Garg on [...] or Tdap) [facility] Start: 01-03-2026 DTaP/Tdap/Td Vaccines (2 - Td or Tdap) DTaP/Tdap/Td Vaccines (2 - Td or Tdap) [facility] Start: 02-08-2024 Echocardiography Echocardiogram [facility] Start: 12-19-2023 End: 12-19-2023 Patient encounter procedure 12/19/2023 10:20 AM EDT Office Visit [facility] [address] [place] [address] Estee Han MD [address] [place] [address] [facility] Start: 10-16-2023 End: 10-16-2023 Patient encounter procedure 10/16/2023 10:00 AM EDT Office Visit [facility] [address] [facility] [address] [place] [address] Shameka Melara, BILLET INSPECTOR-MORTGAGE COUNSELOR [address] [place] [address] [facility] Start: 07-26-2023 End: 07-26-2023 Patient encounter procedure 07/26/2023 10:00 AM EDT Office Visit [facility] [address] [place] [address] [place] [address] [place], [place] [address] [facility] Start: 06-19-2023 End: 06-19-2023 Patient encounter procedure 06/19/2023 9:10 AM EDT Office Visit [facility] [address] [place] [address] Sindi Foster MD [address] [place] [address] [facility] Start: 05-23-2023 End: 05-23-2023 Patient encounter procedure 05/23/2023 9:30 AM EST Office Visit [facility] [address] [place] [id number] Wei Soto MD [address] [facility] [address] [id number] [facility] Start: 05-22-2023 End: 05-22-2023 Patient encounter procedure 05/22/2023 9:10 AM EST Office Visit [facility] [address] [place] [address] Sindi Foster MD [address] [place] [address] [facility] Start: 04-24-2023 End: 04-24-2023 Patient encounter procedure 04/24/2023 9:10 AM EST Office Visit [facility] [address] [place] [address] Sindi Foster MD [address] [place] [address] [facility] Start: 03-20-2023 FUV, Provider: Viridiana Burgess, Status: Pen, Time: 9:50 AM FUV, Provider: Viridiana Burgess, Status: Pen, Time: 9:50 AM [facility] 250 DO Work Phone: Start: 03-13-2023 COVID-19 Vaccine () COVID-19 Vaccine () [facility] Start: 02-15-[address] [facility] Start: 02-14-[address] [facility] Start: 02-12-[address] [facility] Start: 02-12-2023 Insertion of Pacemaker Lead into Right Ventricle, Percutaneous Approach Insertion of Pacemaker Lead into Right Ventricle, Percutaneous Approach [facility] Start: 02-12-2023 Insertion of Pacemaker, Single Chamber into Chest Subcutaneous Tissue and Fascia, Open Approach Insertion of Pacemaker, Single Chamber into Chest Subcutaneous Tissue and Fascia, Open Approach [facility] Start: 02-11-2023 Implantation of cardiac pacemaker OR Pacemaker Insertion (Not Applicable) [facility] Start: 02-10-[address] [facility] Start: 02-07-2023 Referral to carbon dioxide operator [facility] Start: 02-07-[address] [facility] Start: 02-06-[address] [facility] Start: 02-06-2023 Referral to certified welding inspector [facility] Start: 02-06-2023 Referral to occupational therapist [facility] Start: 02-06-[address] [facility] Start: 02-06-[address] [facility] Start: 10-27-2022 Hemoglobin A1c measurement A1C test (Diabetic or Prediabetic) [facility] Start: 08-21-2022 FUV, Provider: Viridiana Burgess, Status: Pen, Time: 9:20 AM FUV, Provider: Viridiana Burgess, Status: Pen, Time: 9:20 AM [facility] 250 DO Work Phone: Start: 07-24-[address] [facility] Start: 2022 Abdominal aortic aneurysm screening Abdominal Aortic Aneurysm (AAA) Screening [facility] Start: 2022 Pneumococcal Vaccine: 65+ Years (1 - PCV) Pneumococcal Vaccine: 65+ Years (1 - PCV) [facility] Start: 07-02-2022 ECHO, Provider: [place] [facility] ULTRASOUND 01,[id number], Status: Pen, Time: 9:45 AM ECHO, Provider: [place] [facility] ULTRASOUND 01,[id number], Status: Pen, Time: 9:45 AM [facility] 250 DO Work Phone: Start: 06-05-[address] [facility] Start: 05-08-[address] [facility] Start: 04-03-[address] [facility] Start: 01-27-2022 Hemoglobin A1c measurement Diabetes: Hemoglobin A1C [facility] Start: 01-25-2022 FUV, Provider: Viridiana Burgess, Status: Pen, Time: 9:40 AM FUV, Provider: Viridiana Burgess, Status: Pen, Time: 9:40 AM [facility] 250 DO Work Phone: Start: 11-16-2021 Influenza vaccination Flu vaccine (#1) [facility] Start: 11-13-2021 End: 11-13-2021 Admission to same day surgery center 11/13/2021 Surgery IP Unit Mauro Rankin MD [address] [place] [address] RIGHT INFERIOR PARATHYROIDECTOMY [facility] Comment on above: RIGHT INFERIOR PARATHYROIDECTOMY Start: 11-13-2021 End: 11-13-2021 Parathyroidectomy/explora tion parathyroids PARATHYROIDECTOMY Hyperparathyroidism (HCC) Hypercalcemia 11/13/2021 11:00 AM [facility] Start: 11-13-2021 Subsequent hospital visit by physician 11/13/2021 Hospital Encounter IP Unit Mauro Rankin MD [address] [place] [address] [facility] Start: 09-24-2021 [facility] Work Phone: Start: 09-20-2021 Hospital admission [facility] Work Phone: Start: 09-20-2021 Referral to video engineer [facility] Work Phone: Start: 09-20-2021 Referral to infectious diseases physician [facility] Work Phone: Start: 09-20-2021 Detachment at Left 1st Toe, Mid, Open Approach Detachment at Left 1st Toe, Mid, Open Approach [facility] Start: 07-27-2021 FUV, Provider: Viridiana Burgess, Status: Pen, Time: 9:30 AM FUV, Provider: Viridiana Burgess, Status: Pen, Time: 9:30 AM [facility] 250 DO Work Phone: Start: 05-31-2021 COVID-19 Vaccine (3 - Booster for Al series) COVID-19 Vaccine (3 - Booster for Al series) [facility] Start: 05-25-2021 Pneumococcal 0-64 years Vaccine (1 of 1 - PPSV23) Pneumococcal 0-64 years Vaccine (1 of 1 - PPSV23) [employer] Work Phone: Comment on above: Postponed from [birth year]/11/1961 (Patient Does Not Have Time) Start: 05-25-2021 Pneumococcal 0-64 years Vaccine (1 of 2 - PPSV23) Pneumococcal 0-64 years Vaccine (1 of 2 - PPSV23) [employer] Work Phone: Comment on above: Postponed from 07/11/1961 (Patient Does Not Have Time) Start: 03-02-2021 FUV, Provider: Viridiana Burgess, Status: Pen, Time: 11:30 AM FUV, Provider: Viridiana Burgess, Status: Pen, Time: 11:30 AM HO-Zbuqrsnppd-IMS Brandi Mathur [address] [place] Work Phone: Start: 01-25-2021 FUV, Provider: Viridiana Burgess, Status: Pen, Time: 8:30 AM FUV, Provider: Viridiana Burgess, Status: Pen, Time: 8:30 AM PI-Gxqbluzaev-ULJ Brandi Mathur [address] [place] Work Phone: Start: 01-25-2021 Patient encounter procedure [facility] Cardiology [place] Start: 01-11-2021 End: 01-12-2022 [facility] Comment on above: Enteral feedings are held 1 hour pre and post dose Start: 01-10-2021 End: 01-11-2022 [facility] Comment on above: IF patient HAS a [...] mg/dL or greater. Start: 01-10-2021 End: 01-11-2022 [facility] Comment on above: 1. Dilute 1.3 mL [...] with 10 mL of Normal Saline. Start: 09-09-2020 Potassium measurement Potassium Level [facility] Start: 09-05-2020 End: 09-05-2020 Patient encounter procedure 09/05/2020 Office Visit Pulmonology Ulisses Nieves MD [facility] [place] [address] [phone] [facility] Start: 08-23-2020 Creatinine measurement Creatinine Level [facility] Start: 08-05-2020 End: 08-05-2020 Patient encounter procedure 08/05/2020 Office Visit Pulmonology Ulisses Nieves MD [address] [place], [place] [id number] [facility] Start: 07-26-2020 End: 07-26-2020 Admission to same day surgery center 07/26/2020 Surgery Endoscopy Ulisses Nieves MD [address] [place], [place] [id number] BRONCHOSCOPY WITH FLUORO [facility] Comment on above: BRONCHOSCOPY WITH FLUORO Start: 07-26-2020 Subsequent hospital visit by physician 07/26/2020 Hospital Encounter Endoscopy Ulisses Nieves MD [address] [place], [place] [id number] [facility] Start: 07-22-2020 End: 07-22-2021 COVID-19 COVID-19 Lab Routine COVID-19 ruled out by laboratory testing Expected: 07/22/2020, Expires: 07/22/2021 [employer] Phone: Comment on above: Expected: 07/22/2020, Expires: Start: 07-14-2020 End: 07-14-2020 Patient encounter procedure 07/14/2020 Office Visit Pulmonology Ulisses Nieves MD [address] [place], [place] [id number] [facility] Start: 07-05-2020 End: 07-05-2020 Admission to same day surgery center 07/05/2020 Surgery IP Unit Ulisses Nieves MD [address] [place], [place] [id number] BRONCHOSCOPY WITH FLOURO - GI SCHEDULED [facility] Comment on above: BRONCHOSCOPY WITH FLOURO - GI SCHEDULED Start: 07-05-2020 Subsequent hospital visit by physician [facility] Start: 07-02-2020 End: 07-01-2021 COVID-19 [facility] Phone: Comment on above: Expected: 07/02/2020, Expires: 2 Once for 1 Occurrenc es starting 07/02/2020 until 07/02/2020 Start: 05-19-2020 Annual Wellness Visit (AWV) Annual Wellness Visit (AWV) [employer] Phone: Start: 12-18-2019 Lipid panel Lipid Panel [facility] Start: 11-16-2018 Influenza vaccination Flu vaccine (#1) [employer] Phone: Start: 07-11-2007 Colon cancer screen colonoscopy Colon cancer screen colonoscopy [facility] Phone: Start: 07-11-2007 Screening for malignant neoplasm of colon Colon cancer screen colonoscopy [employer] Phone: Start: 07-11-2007 Shingles Vaccine (1 of 2) Shingles Vaccine (1 of 2) [facility] [employer] Start: 2002 Screening for malignant neoplasm of colon [address] Start: 1997 Diabetes screen Diabetes screen [facility] Phone: Start: 1997 Lipid screen Lipid screen [employer] Phone: Start: 1976 DTaP/Tdap/Td vaccine (1 - Tdap) DTaP/Tdap/Td vaccine (1 - Tdap) [employer] Phone: Start: 1976 Urine screening for protein Diabetes: Urine Protein Screening [facility] Start: 07-11-1975 Hepatitis C screening [address] Start: 1972 HIV screen HIV screen [employer] Phone: Start: 1972 HIV screening HIV screen [address] Start: 1969 Depression Screen Depression Screen [address] Start: 1968 DTaP/Tdap/Td vaccine (1 - Tdap) DTaP/Tdap/Td vaccine (1 - Tdap) [employer] Phone: Start: 07-11-1967 Diabetic foot examination Diabetes: Foot Exam [facility] Start: 07-11-1967 Glaucoma screening Diabetes: Retinopathy Screening [facility] Start: 07-11-1967 [facility]id panel [facility] Start: 07-11-1963 Pneumococcal 0-64 years Vaccine (1 - PCV) Pneumococcal 0-64 years Vaccine (1 - PCV) [facility] Start: 07-11-1963 Pneumococcal Vaccine: 65+ Years (1 - PCV) Pneumococcal Vaccine: 65+ Years (1 - PCV) [facility] Start: 1958 MMR Vaccines (1 of 1 - Standard series) MMR Vaccines (1 of 1 - Standard series) [facility] Start: 1955 Annual wellness visit Medicare Initial Physical (IPPE) [facility] Start: 1955 Annual Wellness Visit (AWV) Annual Wellness Visit (AWV) [facility] [employer] Start: 1957 Creatinine measurement Creatinine monitoring [facility] Phone: Start: 1957 Hepatitis C screen Hepatitis C screen [facility] Phone: Start: 1957 Hepatitis C screening Hepatitis C screen [facility] Phone: Start: 1957 Potassium monitoring Potassium monitoring [facility] Phone: Start: 1957 Screening for malignant neoplasm of colon [facility] Start: 1955 Thyroid stimulating hormone measurement TSH Level [facility] Aldosterone [Mass/vo lume] in Serum or Plasma [facility] Aldosterone [Mass/vo lume] in Serum or Plasma [facility] Atrial fibrillation Atrial fibrillation [facility] Bacteria identified in Unspecified specimen by Aerobe culture [facility] Work Phone: Blood chemistry [facility] Comprehensive metabo lic 1999 panel - Serum or Plasma [facility] Work Phone: Comprehensive metabo lic 1999 panel - Serum or Plasma [facility] Comprehensive metabo lic 1999 panel - Serum or Plasma [facility] Comprehensive metabo lic 1999 panel - Serum or Plasma [facility] Comprehensive metabo lic 1999 panel - Serum or Plasma [facility] COVID-19 COVID-19 Lab Rou veronica 07/02/2020 10:28 PM EDT [employer] Work Phone: Culture with Smear, Acid Fast Bacillius [employer] Work Phone: Comment on above: Release Upon Ordering for 1 Occurrences starting 08/25/2020 Culture, Fungus [facility] Work Phone: Comment on above: Release Upon Ordering for 1 Occurrences starting 08/25/2020 Culture, Respiratory [facility] Work Phone: Comment on above: Release Upon Ordering for 1 Occurrences starting 08/25/2020 Culture, Virus, Respiratory [facility] Work Phone: Comment on above: Release Upon Ordering for 1 Occurrences starting 08/25/2020 Lactate dehydrogenas e [Enzymatic activity/volume] in Unspecified specimen [facility] Work Phone: Lactate dehydrogenas e [Enzymatic activity/volume] in Unspecified specimen [facility] Patient Education [facility] Work Phone: Patient referral [facility] Work Phone: Renin [Enzymatic activity/volume] in Plasma [facility] Renin [Enzymatic activity/volume] in Plasma [facility] Superficial Wound Culture Superficial Wou nd Culture [facility] End: 08-25-2020 Surgical Pathology Surgical Pathology Lab Routine Once for 1 Occurrences starting 08/25/2020 until 08/25/2020 [employer] Work Phone: Comment on above: Once for 1 Occurrences starting 08/26/19 21 until 08/25/2020 [facility] Immunizations Immunization Date Immunization Notes Care Provider Fa cili 07-23-2022 zoster vaccine recombinant Teri Aragon Work Phone: [facility] DO Work Phone: 04-28-2022 zoster vaccine recombinant Teri Aragon Work Phone: [facility] Work Phone: 03-14-2022 Pfizer COVID-19 Vac Bivalent 30 MCG/0.3ML Intramuscular Suspension Teri Aragon Work Phone: [facility] DO Work Phone: 12-15-2021 influenza, injectabl e, quadrivalent, preservative free Geeta Dumont Other [facility] [employer] Other 10-27-2021 Comirnaty 30 MCG/0.3 ML Intramuscular Suspension No PCP None [id number] Brandi Mathur [address] [place] [address] Work Phone: 01-31-2021 Al COVID-19 Vaccine 0.5 ML Intramuscular Suspension Francisco Li Work Phone: [facility] 250 DO Work Phone: 12-30-2020 influenza, seasonal, injectable Geeta Dumont Other [facility] [employer] Other 12-30-2020 Seasonal, quadrivalent, recombinant, injectable influenza vaccine, preservative free Francisco Li Work Phone: [facility] DO Work Phone: 05-23-2020 Al COVID-19 Vaccine 0.5 ML Intramuscular Suspension Francisco Li Work Phone: [facility] DO Work Phone: 12-20-2019 influenza, seasonal, injectable, preservative free [facility] Work Phone: 12-17-2019 influenza virus vaccine, unspecified formulation No PCP None [facility] 250 DO Work Phone: 11-30-2019 influenza, injectabl e, quadrivalent, preservative free Francisco Danny Guillermo Work Phone: [facility] 250 DO Work Phone: 12-16-2018 influenza virus vaccine, unspecified formulation No PCP None [facility] 250 DO Work Phone: 12-16-2018 influenza, seasonal, injectable Francisco Danny Guillermo Work Phone: [facility] 250 DO Work Phone: 12-15-2017 influenza, injectabl e, quadrivalent, contains preservative Francisco Delgado Guillermo Work Phone: [facility] 250 DO Work Phone: 03-22-2017 influenza virus vaccine, unspecified formulation No PCP None [facility] 250 DO Work Phone: 03-18-2008 influenza virus vaccine, unspecified formulation No PCP None [facility] 250 DO Work Phone: Payers Date Payer Category Payer Medicare [id number] 2022 Medicare [id number] 2022 Unknown [id number] 2022 Unknown 2020 Private Health Insurance [id number] 2017 Unknown [employer] [place] [address] xxxxxxxxxxxx 2017-Present [phone] [address] [place] [address] xxxxxxxxxxxx [id number] 2016 Medicare [id number] 2016 Self-pay [id number] 2014 Medicare [id number] 1.2.840.873321.1.13.239.2 .7.3.941440.315 1957 Unknown [id number] 2.16.840.1.345272.3.579.2 .176 1957 Unknown [id number] 2.16.840.1.406263.3.579.2 .175 1957 Unknown [id number] 2.16.840.1.889197.3.579.2 .175 1957 Unknown [id number] 2.16.840.1.413250.3.579.2 .175 1957 Unknown [id number] 2.16.840.1.844146.3.579.2 .177 1957 Unknown [id number] 2.16.840.1.598192.3.579.2 .177 1957 Unknown [id number] 2.16.840.1.330905.3.579.2 .718 1957 Unknown [id number] 2.16.840.1.877061.3.579.2 .718 1957 Unknown [id number] 2.16.840.1.570351.3.579.2 .718 1957 Unknown [id number] 2.16.840.1.250860.3.579.2 .1068 1957 Unknown [id number] 2.16.840.1.863851.3.579.2 .356 1957 Unknown [id number] 2.16.840.1.872281.3.579.2 .356 1957 Unknown [id number] 2.16.840.1.411312.3.579.2 .727 1957 Unknown [id number] 2.16.840.1.506887.3.579.2 .727 1957 Unknown [id number] 2.16.840.1.407689.3.579.2 .1244 1957 Unknown [id number] 2.16.840.1.349525.3.579.2 .124 1957 Unknown [id number] 2.16.840.1.271747.3.579.2 .125 1957 Unknown [id number] 2.16.840.1.993992.3.579.2 .1258 1957 Unknown [id number] 2.16.840.1.965329.3.579.2 .1258 1957 Unknown [id number] 2..840.1.119566.3.579.2 .1258 1957 Unknown [id number] 2.16840.1.830079.3.579.2 .1258 1957 Unknown [id number] 2.840.1.839522.3.579.2 .1259 Unknown [id number] Unknown [id number] Unknown [id number] 2.16.840.1.961267.3.579.2 .531 Unknown [id number] 2.16.840.1.044103.3.579.2 .531 Unknown [id number] 2.16.840.1.151486.3.579.2 .531 Unknown [id number] 2.16.840.1.016143.3.579.2 .531 Unknown [id number] 2.16.840.1.173023.3.579.2 .531 Unknown [id number] 2.16.840.1.792622.3.579.2 .531 Unknown [id number] 2.16.840.1.388008.3.579.2 .531 Unknown [id number] 2.16.840.1.635680.3.579.2 .531 Unknown [id number] 2.16.840.1.029130.3.579.2 .531 Unknown [id number] 2.16.840.1.746121.3.579.2 .531 Unknown [id number] 2.16.840.1.400712.3.579.2 .531 Unknown [id number] 2.16.840.1.457150.3.579.2 .531 Unknown [id number] 2..840.1.499732.3.579.2 .531 Unknown [id number] 2..840.1.665901.3.579.2 .531 Unknown [id number] 2.840.1.017975.3.579.2 .531 Unknown [id number] 2.840.1.282214.3.579.2 .531 Unknown [id number] 2..840.1.559309.3.579.2 .531 Unknown [id number] 2.840.1.841750.3.579.2 .531 Unknown [id number] 2..840.1.207263.3.579.2 .531 Unknown [id number] 2.840.1.254331.3.579.2 .531 Unknown [id number] 2.840.1.650744.3.579.2 .531 Unknown [id number] 2.840.1.145048.3.579.2 .531 Unknown [id number] 2.840.1.524969.3.579.2 .531 Unknown [id number] 2..840.1.057466.3.579.2 .531 Unknown [id number] 2..840.1.397954.3.579.2 .531 Unknown [id number] 2.840.1.358429.3.579.2 .531 Unknown [id number] 2.16.840.1.406301.3.579.2 .531 Social History Date Type Detail Facility Start: 05-12-2020 End: 12-12-2022 Tobacco smoking status NHIS Ex-smoker (finding) [facility] [employer] Start: 1955 Sex Assigned At Male [facility] Start: 03-18-1970 End: 03-18-2006 History of tobacco use Current smoker [facility] Start: 03-18-1970 End: 03-18-2006 History of tobacco use Cigarette Smoker [facility] Start: 06-30-2020 End: 03-29-2023 Cigarettes smoked current (pack per day) - Reported [employer] Work Phone: Comment on above: 1-2 cups of coffee d aily. quart of iced tea daily.; Quit in 2006; 1 cup of coffee week barney a quart of decaf iced tea daily, diet soda rarely; Start: 06-30-2020 End: 12-12-2022 Tobacco use and exposure Never used [facility] Start: 06-30-2020 End: 10-27-2021 Alcohol intake Ex-drinker (finding) [facility] Work Phone: Start: 1955 Sex Assigned At Not on file [employer] Work Phone: Start: 10-17-2021 End: 04-17-2023 Exposure to SARS-CoV-2 (event) Not sure [facility] Tobacco smoking consumption unknown [facility] Start: 03-29-2023 End: 04-17-2023 Sex Assigned At [employer] Other Tobacco smoking status No Smokin g Status Entered [facility] Start: 04-17-2023 Alcohol intake Lifetime non-d elza (finding) [facility] Work Phone: Start: 03-29-2023 End: 04-24-2023 Alcohol intake Current drinker of alcohol (finding) [facility] Start: 12-12-2022 Tobacco Comment Last smoked: >10 yea rs [facility] Start: 12-12-2022 Alcohol Comment caffeine: coffee [facility] Medical Equipment Procedure Code Equipment Code Equipment Origin al Text Equipment Identifier Dates Insertion, pacemaker Endocardial pacing lead [id number] FDA Start: 02-14-2023 Insertion, pacemaker Single-chamber implantable pacemaker, rate-responsive ()[id number] FDA Start: 02-14-2023 Ventriculo-perit onea l/atrial shunt valve ()[id number] FDA Start: 03-12-2021 Goals Date Patient Goal Desired Activity /State Functional Status Date Assessment Result Facility 02-15-2023 Functional status Patient Not at Baseline [facility] Work Phone: 02-10-2023 Functional status Patient at Baseline [facility] Work Phone: 09-24-2021 Functional status Patient at Baseline [facility] Work Phone: Functional observable [facility] Mental Status Date Assessment Result Facility 02-15-2023 Cognitive function Cognitive Sta tus Patient at Baseline [facility] Work Phone: 02-10-2023 Cognitive function Cognitive Sta tus Patient at Baseline [facility] Work Phone: 09-24-2021 Cognitive function Cognitive Sta tus Patient at Baseline [facility] Work Phone: 01-09-2021 Cognitive functi ons [id number] [facility] Clinical Notes 01-22-2017 to 04-24-2023 Sindi Foster MD - 04/24/2023 9:10 AM EST Note Date & Type Note Facility 04-24-2023 History of Presen t illness Narrative Subjective Patient ID: Adenike Potter is a 67 y.o. male who presents for Cancer (1 mo follow up). F/U MBS. Pt reports he had study and told nothing wrong . No report in chart. Has not yet seen endocrine surgeon. Getting appt with Juliano Tapia Review of Systems All other systems reviewed and are negative. Family History Problem Relation Name Age of Onset Hypertension Mother Diabetes Mother Heart disease Mother Dementia Mother Hypertension Father Heart disease Father Dementia Father Diabetes Father Multiple myeloma Neg Hx Active Ambulatory Problems Diagnosis Date Noted Acute hematogenous osteomyelitis, left ankle and foot ([facility]) 10/23/2022 Anxiety 10/23/2022 Basal cell carcinoma (BCC) of skin of right upper extremity including shoulder 10/23/2022 Hallux valgus (acquired), left foot 10/23/2022 Hammer toe 10/23/2022 Neuropathy due to type 2 diabetes mellitus ([facility]) 10/23/2022 Non-pressure chronic ulcer of other part of left foot with unspecified severity ([facility]) 10/23/2022 Osteomyelitis ([facility]) 10/23/2022 Peripheral arterial disease ([facility]) 10/23/2022 Peripheral neuropathy 10/23/2022 Polyneuropathy due to type 2 diabetes mellitus ([facility]) 10/23/2022 Skin ulcer ([facility]) 10/23/2022 Status post amputation of toe of left foot ([facility]) 10/23/2022 Type 2 diabetes mellitus with foot ulcer (CODE) ([facility]) 10/23/2022 Ulcer of lower extremity ([facility]) 10/23/2022 Skin ulcer of left great toe with fat layer exposed ([facility]) 10/23/2022 Toe ulcer, left, with fat layer exposed ([facility]) 10/23/2022 Unspecified chronic bronchitis ([facility]) 10/23/2022 Venous insufficiency (chronic) (peripheral) 10/23/2022 Atrial flutter ([facility]) 02/24/2007 Sinoatrial node dysfunction ([facility]) 06/09/2007 Centrilobular emphysema ([facility]) 05/19/2020 Chronic diastolic heart failure ([facility]) 06/09/2007 Essential hypertension ([facility]) 06/09/2007 Hemoptysis 05/19/2020 History of lymphoma 05/19/2020 Hx of amiodarone therapy 05/19/2020 Hyperlipidemia ([facility]) 04/17/2010 Hypertrophic obstructive cardiomyopathy ([facility]) 04/17/2010 ILD (interstitial lung disease) ([facility]) 05/19/2020 ZAYRA (obstructive sleep apnea) 05/20/2020 Sleep apnea 06/09/2007 Paroxysmal tachycardia, unspecified ([facility]) 06/09/2007 Syncope 08/05/2017 Memory loss 10/25/2022 Lesion of tongue 11/05/2022 Primary hyperparathyroidism ([facility]) 11/05/2022 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 ([facility]) 01/02/2023 Pharyngoesophageal dysphagia 01/02/2023 DDD (degenerative disc disease), lumbosacral 02/04/2023 Carcinoma in situ of tongue 03/20/2023 Aspiration into airway 03/20/2023 Atherosclerosis of [place] coronary artery without angina pectoris ([facility]) 02/20/2023 Chronic atrial fibrillation (HCC) ([facility]) 02/20/2023 Chronic edema 02/20/2023 COPD (chronic obstructive pulmonary disease) ([facility]) 02/20/2023 Diabetes mellitus ([facility]) 02/20/2023 High risk medication use 02/20/2023 History of B-cell lymphoma 02/20/2023 Presence of Watchman left atrial appendage closure device 02/20/2023 Status post angioplasty 02/20/2023 Resolved Ambulatory Problems Diagnosis Date Noted No Resolved Ambulatory Problems Past Medical History: Diagnosis Date A-fib ([facility]) Anemia Arthritis Bronchitis CHF (congestive heart failure) ([facility]) DVT (deep venous thrombosis) ([facility]) Gout Heart disease Hypercholesterolemia ([facility] Hypertension ([facility]) Joint pain Large B-cell lymphoma ([facility]) Mononucleosis Pneumonia Past Surgical History: Procedure Laterality Date APPENDECTOMY BOWEL RESECTION COLONOSCOPY 2014 CORONARY STENT PLACEMENT [facility] 5 stints put in HERNIA REPAIR KNEE SURGERY LUNG BIOPSY OTHER SURGICAL HISTORY 2015 VAP [place] OTHER SURGICAL HISTORY 02/15/2017 Removal of access port OTHER SURGICAL HISTORY 2020 The watchman (A fib) OTHER SURGICAL HISTORY 12/06/2022 r/o tongue lesion, partial glossectomy, Dr. Foster SIGMOIDECTOMY sigmoid resection TOE AMPUTATION Left September and December 2021 (partial) TOE AMPUTATION 2021 partial LT hallux 09-22-21, left 2nd toe amp 01/06 TONSILLECTOMY Allergies Allergen Reactions Lisinopril Anaphylaxis and Swelling Other Reaction(s): Other (See Comments), Other: See Comments, uvula swells Uvula uvula swelling Uvula uvula swelling Morphine Palpitations Other Reaction(s): heart races, Other (See Comments), Other: See Comments irregular heart rhythm Diltiazem Itching and Palpitations Other Reaction(s): heart races, Intolerance, Mental Status Change, Other (See Comments) Current Outpatient Medications on File Prior to Visit Medication Sig Dispense Refill albuterol HFA 90 mcg/act inhaler every 6 (six) hours. allopurinol (Zyloprim) 300 MG tablet 1 (one) time each day at the same time. aspirin 81 MG chewable tablet Chew 81 mg in the morning. atomoxetine (Strattera) 25 MG capsule Take 1 capsule (25 mg) by mouth in the morning. Swallow capsule whole; do not open. If opened accidentally, do not touch eyes; wash hands immediately (product is an eye irritant).. 30 capsule 3 atorvastatin (Lipitor) 20 MG tablet biotin 84673 MCG tablet Take 1 tablet by mouth in the morning and 1 tablet before bedtime. bumetanide (Bumex) 2 MG tablet Take 2 mg by mouth in the morning. busPIRone (Buspar) 10 MG tablet Take 1 tablet (10 mg) by mouth in the morning and 1 tablet (10 mg) in the evening and 1 tablet (10 mg) before bedtime. 90 tablet 3 cholecalciferol (Vitamin D-3) 50 MCG (2000 UT) capsule Take 1 capsule by mouth. FLUoxetine (PROzac) 20 MG capsule Take 20 mg by mouth in the morning. fluticasone (Flonase) 50 MCG/ACT nasal spray Administer 1 spray into each nostril in the morning. Shake gently. Before first use, prime pump. After use, clean tip and replace cap.. gabapentin (Neurontin) 600 MG tablet Take 1,200 mg by mouth in the morning and 1,200 mg before bedtime. glipiZIDE XL (Glucotrol XL) 2.5 MG 24 hr tablet Take 2.5 mg by mouth in the morning and 2.5 mg in the evening. KLOR-CON 20 MEQ ER tablet 20 mEq 60 mg AM, 40 mg PM levothyroxine (Synthroid, Levoxyl) 50 MCG tablet Take 25 mcg by mouth 1 (one) time each day at the same time magnesium oxide (Mag-Ox) 400 MG tablet Take 400 mg by mouth in the morning and 400 mg in the evening. omeprazole (PriLOSEC) [address] capsule 1 capsule 30 minutes before morning meal Orally two times daily for 30 day(s) rOPINIRole (Requip) 0.25 MG tablet Take 2 tablets (0.5 mg) by mouth at bedtime 60 tablet 11 spironolactone (Aldactone) 25 MG tablet Take 25 mg by mouth in the morning and 25 mg before bedtime. thiamine (Vitamin B-1) 100 MG tablet Take 1 tablet (100 mg) by mouth in the morning. 30 tablet 11 tiZANidine (Zanaflex) 4 MG tablet Take 4 mg by mouth in the morning and 4 mg in the evening and 4 mg before bedtime. traMADol (Ultram) 50 MG tablet Take 1 tablet by mouth in the morning and 1 tablet in the evening and 1 tablet before bedtime. traZODone (Desyrel) 50 MG tablet Take 50-100 mg by mouth at bedtime [DISCONTINUED] acetaminophen-codeine (Tylenol w/ Codeine #3) 300-30 MG tablet TAKE 1 TO 2 TABLETS BY MOUTH EVERY 6 HOURS NEEDED FOR PAIN [DISCONTINUED] chlorhexidine (Peridex) 0.12 % solution RINSE 15 ML'S TWICE DAILY AFTER BREAKFAST/BEFORE BEDTIME FOLLOWING BRUSHING AND FLOSSING [DISCONTINUED] HYDROcodone-acetaminophen ([place]) 5-325 MG tablet [DISCONTINUED] metOLazone (Zaroxolyn) 5 MG tablet 1 (one) time each day at the same time. nitroglycerin (Nitrostat) 0.[address] 0.4 mg under the tongue. No current facility-administered medications on file prior to visit. 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 documented in this encounter [facility] 04-18-2023 Evaluation note Encounter Date Diagnosis Assessment Notes Apr, Chronic kidney disease, stage 3a (ICD-10 - N18.31) Patient has mild CKD stage IIIa related to DM2 and CHF. Serum creatinine did improve after decreasing diuretics and holding metolazone. Creatinine 1.3-1.5 mg/dL. He still on low-dose diuretics with history of CHF. Patient is high risk for recurrent KVNG and progression of CKD. Will monitor renal function every 3 to 4 months or as needed. Apr, Electrolyte and fluid disorder (ICD-10 - E87.8) Patient presented with hyperkalemia that improved after decrease potassium supplements. Hypernatremia did improve after discontinuation of metolazone. Patient still require relatively high-dose potassium supplements 60 mg in the morning and 40 mg afternoon with high dose of diuretics. Apr, Primary hyperparathyroidism (ICD-10 - E21.0) Patient has persistently elevated intact PTH with low phosphorus and hypercalcemia. Phosphorus was 2.5 on January 2023. He stated that he had a parathyroid scan with obvious nodule. Patient stated that he was referred to ENT and he is undergoing evaluation for possible surgery. Apr, CHF (congestive heart failure) (ICD-10 - I50.9) Patient has recurrent diastolic CHF in the setting of A-fib s/p pacemaker insertion for severe bradycardia. Patient still has edema with recurrent shortness of breath. He was advised to increase bumetanide to 2 mg twice a day. New prescription was given. Continue spironolactone 25 mg twice a day. Apr, DM (diabetes mellitus) (ICD-10 - E11.9) Patient stated that diabetes is well-controlled. He has multiple diabetic complications including diabetic neuropathy. Apr, Twitching (ICD-10 - R25.3) Patient on low-dose gabapentin because of neuropathy. Dose was decreased to 600 mg twice a day last visit for twitches that is better. He still on high-dose and possibly to be decreased to 300 mg twice a day if he continues to have extraparametal symptoms. [employer] Other 01-31-2024 History of Present illness Narrative* Viridiana Burgess, DO - 04/17/2023 10:00 AM EST Subjective Sandra Potter is a 67 y.o. male Chief Complaint Follow-up 67-year-old gentleman here for preoperative risk assessment and clearance prior to right toe amputation for chronic recurring ulcers and inflammation and infection. He is otherwise doing well from a cardiovascular standpoint. He is recently diagnosed with sick sinus syndrome and finally underwent pacemaker implantation as well as Watchman device implant for chronic atrial fibrillation. He has known history of chronic persistent A-fib, ASHD with very remote PCI of the LAD, hypertrophic cardiomyopathy without obstructive physiology, obesity, hyperparathyroidism. He now follows with nephrology for his high loop diuretic and potassium requirement which is subsided substantially since following with nephrology thankfully Is surgery for right toe amputation is very low risk and portends no significant risk for cardiovascular events in my estimation and is an outpatient procedure. We have discussed recent laboratories, his pacemaker implant and cardiovascular history. Recommendations: Follow-up again in 6 months, continue electrolyte and renal function surveillance,we gave him some names of ENTs with the organization in regards to hyperparathyroidism. Will follow-up accordingly Review of Systems Respiratory: Positive for shortness of breath. Neurological: Positive for dizziness. All other systems reviewed and are negative. Visit Vitals BP 132/80 (BP Location: Right arm, Patient Position: Sitting) Pulse 77 Ht 1.803 m (5' 11 ) Wt 115 kg (254 lb) BMI 35.43 kg/m Smoking Status Former BSA 2.4 m EKG done in office today Objective Physical Exam Constitutional: Appearance: Normal appearance. He is normal weight. HENT: Nose: Nose normal. Neck: Vascular: No carotid bruit. Cardiovascular: Rate and Rhythm: Normal rate. Pulses: Normal pulses. Heart sounds: Normal heart sounds. Pulmonary: Effort: Pulmonary effort is normal. Abdominal: General: Bowel sounds are normal. Palpations: Abdomen is soft. Genitourinary: Rectum: Normal. Musculoskeletal: General: Normal range of motion. Cervical back: Normal range of motion. Right lower leg: No edema. Left lower leg: No edema. Skin: General: Skin is warm and dry. Neurological: General: No focal deficit present. Mental Status: He is alert. Psychiatric: Mood and Affect: Mood normal. Behavior: Behavior normal. Thought Content: Thought content normal. Judgment: Judgment normal. Current Medications Current Outpatient Medications: albuterol 90 mcg/actuation inhaler, 2 puffs every 4 hours if needed., Disp: , Rfl: allopurinol (Zyloprim) 300 mg tablet, Take 1 tablet (300 mg) by mouth once daily., Disp: , Rfl: aspirin 81 mg EC tablet, Take 1 tablet (81 mg) by mouth once daily., Disp: , Rfl: atomoxetine (Strattera) 25 mg capsule, Take 1 capsule (25 mg) by mouth once daily. Swallow capsule whole; do not open. If opened accidentally, do not touch eyes; wash hands immediately (product is aneye irritant)., Disp: , Rfl: atorvastatin (Lipitor) 20 mg tablet, Take 1 tablet (20 mg) by mouth once daily., Disp: , Rfl: bumetanide (Bumex) 0.5 mg tablet, Take 5 tablets (2.5 mg) by mouth once daily., Disp: , Rfl: busPIRone (Buspar) 10 mg tablet, Take 1 tablet (10 mg) by mouth 3 times a day., Disp: , Rfl: cholecalciferol (Vitamin D-3) 25 MCG (1000 UT) tablet, Take 1 tablet (25 mcg) by mouth once daily.,Disp: , Rfl: FLUoxetine (PROzac) 20 mg capsule, Take 1 capsule (20 mg) by mouth 2 times a day., Disp: , Rfl: fluticasone (Flonase) 50 mcg/actuation nasal spray, Administer 1 spray into each nostril once daily., Disp: , Rfl: gabapentin 600 mg tablet extended release 24 hr, Take 2 tablets by mouth 2 times a day., Disp: , Rfl: glipiZIDE XL (Glucotrol XL) 2.5 mg 24 hr tablet, Take 1 tablet (2.5 mg) by mouth twice a day., Disp: , Rfl: levothyroxine (Synthroid) 50 mcg tablet, Take 1 tablet (50 mcg) by mouth once daily., Disp: , Rfl: magnesium gluconate (Magonate) 27.5 mg magne- sium (500 mg) tablet, Take 1 tablet (27.5 mg) by mouth 2 times a day., Disp: , Rfl: nitroglycerin (Nitrostat) 0.4 mg SL tablet, Place 1 tablet (0.4 mg) under the tongue every 5 minutes if needed for chest pain., Disp: , Rfl: omeprazole (PriLOSEC) [address] capsule, Take 1 capsule (40 mg) by mouth 2 times a day., Disp: , Rfl: potassium chloride CR 20 mEq ER tablet, Take 1 tablet (20 mEq) by mouth 3 times a day. Do not crushor chew., Disp: , Rfl: rOPINIRole (Requip) 1 mg tablet, Take 1 tablet (1 mg) by mouth once daily at bedtime., Disp: , Rfl: spironolactone (Aldactone) 25 mg tablet, Take 1 tablet (25 mg) by mouth once daily. (Patient takingdifferently: Take 1 tablet (25 mg) by mouth 2 times a day.), Disp: 90 tablet, Rfl: 3 thiamine (Vitamin B-1) 50 mg tablet, Take 1 tablet (50 mg) by mouth once daily., Disp: , Rfl: tiZANidine (Zanaflex) 4 mg tablet, Take 1 tablet (4 mg) by mouth 3 times a day., Disp: , Rfl: traMADol (Ultram) 50 mg tablet, Take 2 tablets (100 mg) by mouth 4 times a day as needed., Disp: , Rfl: Assessment/Plan 1. Preoperative clearance 2. Amputation of right great toe (CMS/HCC) 3. Atherosclerosis of [place] coronary artery of [place] heart without angina pectoris 4. Chronic atrial fibrillation (CMS/HCC) 5. Mild hypertrophic obstructive cardiomyopathy (CMS/HCC) 6. Status post angioplasty 7. Hyperlipidemia, unspecified hyperlipidemia type 8. Essential hypertension 9. Presence of Watchman left atrial appendage closure device 10. Former smoker Scribe Attestation By signing my name below, I, Leslie Benavidez LPN , Scribmike attest that this documentation has been prepared under the direction and in the presence of Luciana Burgess DO. documented in this [facility] Work Phone: [phone]) 192-403001-31-2024 Instructions* Patient Instructions* Leslie Alvarez LPN - 04/17/2023 10:00 AM EST Please bring all medicines, vitamins, and herbal supplements with you when you come to the office. Prescriptions will not be filled unless you are compliant with your follow up appointments or have a follow up appointment scheduled as per instruction of your physician. Refills should be requested at the time of your visit. Sandra Potter is clear for surgery from a cardiac standpoint [facility]: 1([phone]) 538-184401-18-2024 Evaluation note* Encounter Date Diagnosis Assessment Notes Treatment Notes Treatment Clinical Notes Mar, Medicare annual well ness visit, subsequent (ICD-10 - Z00.00) Personalized health [...] as noted above. Mar, Type 2 diabetes devonte itus with other circulatory complication, without long-term current [...] given educational handouts. Mar, Type 2 diabetes devonte itus with foot ulcer (ICD-10 - E11.621) Mar, Chronic kidney disea se, stage 3a (ICD-10 - N18.31) Following with Nephrology, reviewed notes and next follow up is in April. Mar, Persistent atrial fibrillation (ICD-10 - I48.19) Follows with Cardiology. Has an appt Apr 17 for cardiac clearance for surgery Mar, Acquired hypothyroid ism (ICD-10 - E03.9) Asymptomatic at this time, Denies any unexplained weight change, hair loss or fatigue. Patient to continue with above medication and we will continue to monitor through routine blood work Mar, Other congestive hea rt failure (ICD-10 - I50.9) Following with Cardiology [...] polyneuropathy (ICD-10 - G62.9) Follows with Dr. Danielson-- yearly and is on Gapabentin. Mar, Primary hyperparathyroidism (ICD-10 - E21.0) Following with nephrology and ENT -- Jerri Lewis -- has been referred to ENT Surgeon for evaluation and surgical intervention, awaiting to schedule. Mar, Anxiety (ICD-10 - F41.9) Pat ient is not suicidal or homicidal at this time. Discussed treatment options with patient today. It was decided in collaboration with the patient to continue on Fluoxetine and Buspar daily for management with depression/anxiety. Medication profile and possible SE reviewed with [...] Stable. Follows with Cardiology Mar, Restless leg syndrom e (ICD-10 - G25.81) Notes that DR. Soto increased to 2 tablets as week ago, but has noted no difference in his restless leg syndrome will increase to 1 mg dose. Pt to call with effectiveness. Mar, GERD (gastroesophage al reflux disease) (ICD-10 - K21.9) Reflux symptoms remain unchanged. Discussed the importance of meal content. They should avoid overeating and eating meals late in the evening. Take medication as directed and we will continue to monitor. 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 Mar, Tinnitus of both ear s (ICD-10 - H93.13) Notes that he was on FLonase previously and this was working and he stopped and would like a refill. Mar, Insomnia, unspecifie d type (ICD-10 - G47.00) We discussed how [...] on Trazadone. Pt to call with effectiveness. [employer] Other 01-08-2024 Evaluation note* Encounter Date Diagnosis Assessment Notes Treatment Notes Treatment Clinical Notes Mar, Restless leg syndrome (ICD-10 - G25.81) [employer] Other 01-03-2024 Evaluation note* Encounter Date Diagnosis [...] verbalizes understanding and agrees to treatment plan. [employer] Other 12-27-2023 Evaluation note* Encounter Date Diagnosis Assessment Notes Treatment Notes Treatment Clinical Notes Feb, Primary hyperparathyroidism (ICD-10 - E21.0) [employer] Other 12-22-2023 Evaluation note* Encounter Date Diagnosis Assessment Notes Treatment Notes Treatment Clinical Notes Feb, Type 2 diabetes mellitus with other circulatory complication, without long-term current use of insulin (ICD-10 - E11.59) Feb, Anxiety (ICD-10 - F41.9) [employer] Other 12-19-2023 Evaluation note* Encounter Date Diagnosis [...] see above -- under congestive heart failure. [employer] Other 12-12-2023 Progress note Author Sumit De La Cruz 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 Espinoza, and he and his do agree to this referral. We called the office and they do accept his insurance. I did decide to start topical antimicrobials such as Vashe Cleanser as well as Iodoflex dressings. [facility] nursing will be started for the [...] wound start?: November 2022 Mode of Arrival/ Button Pusher: Family Assistive Device Used Today: Wearing Ordered Boot/Shoe Lives with:: Spouse Appetite Description: Within Normal Limits Smoking Status: Former smoker [facility] Medical History (Updated 02/26/23 @ 11:48 by Sima Wagner APRN) Amputation toe partial left great and 2nd [...] layer exposed Bed Appearance: Beefy Red and [place] Percent of Wound Bed Granulated/Red: 100 Percent [...] by MD Sumit De La Cruz> 02/26/23 1302 [facility] Work Phone: [phone] 352-103312-07-2023 Evaluation note* Encounter Date Diagnosis Assessment Notes Treatment Notes Treatment Clinical Notes 07 Dec, 2023 Chronic kidney disea se, stage 3a (ICD-10 [...] continues to have twitches and extraparametal symptoms. [employer] Other 12-04-2023 Evaluation note* Encounter Date Diagnosis [...] insert ion of cardiac resynchronization therapy pacemaker (NUT THREADER-P) (ICD-10 - Z45.018) Feb, Status post biventricular cardiac pacemaker insertion (ICD-10 - Z95.0) Pt is following up with certified welding inspector this . Pt agreed to POC Feb, [...] Hypocalcemia (ICD-10 - E83.51) Complete as ordered. [employer] Other 12-04-2023 Evaluation note* Encounter Date Diagnosis Assessment Notes Treatment Notes Treatment Clinical Notes Feb, Elevated serum free T4 level (ICD-10 - R79.89) Feb, Chronic fatigue, unspecified (ICD-10 - R53.82) Feb, Bradycardia (ICD-10 - R00.1) [employer] Other 11-26-2023 Discharge summary Author Subhash Duckworth [facility] February 10, 2023 3:01pm Note Date/Time February 10, 2023 3:02pm [facility] [address] [place] [address] Discharge Summary Signed Patient: Sandra Potter MR#: [id number] : 1955 Acct:[id number] Age/Sex: 67 / M Adm Date: 3 Loc: Room: [address] [place] [address]: Subhash Duckworth MD Copies to: [...] event monitor (Routine) Timeframe: 1 Day Facility: [facility] - Location: [address] [place] [address] - O/P Ordered By: Deanne Gaxiola Follow Up: Teri Aragon DO [Primary Care Provider] - (Call office on Saturday to schedule follow-up with your Primary Care Provider in 3-5 days. ) Documented By: Subhash Duckworth MD 02/10/23 14 51 Signed By: <Electronically signed by Subhash Duckworth MD> 02/10/23 1501 [facility] Work Phone: [phone]) [phone] Progress note Author Mina Reilly [facility] February 10, 2023 2:13pm Note Date/Time February 10, 2023 2:08pm [facility] [address] [place] [address] Nephrology Progress Note Signed Patient: Sandra Potter MR#: [id number] : 1955 Acct:[id number] Age/Sex: 67 / M Adm Date: 3 Loc: 4 Room: [id number] Type: ADM IN Attending Dr: Subhash Duckworth [...] 1300 150 / 150 Output Total 2099 4725 / 4725 3400 / 3400 725 / 725 Balance -600 / -600 -2975 / -2975 -2099 / -2099 -575 / -575 Weight 117.2 kg 111.7 [...] DAILY PAT Stop: 02/07/24 08:59 Last Admin: 02/10/23 08:50 Dose: 300 mg Aspirin (Aspirin 81 Mg Tablet.) 81 mg PO HS PAT Stop: 02/06/24 21:59 Last Admin: 02/09/23 23:25 Dose: Not Given Atorvastatin Calcium (Atorvastatin 20 Mg Tablet) 20 mg PO HS [facility] Stop: 02/06/24 21:59 Last Admin: 02/09/23 23:25 Dose: Not Given Atropine Sulfate (Atropine Sulfate 1 Mg/10 Ml Syringe) 1 mg IV-PUSH ONCE PRN PRN Reason: Bradycardia Bisacodyl (Bisacodyl 5 Mg Tablet.) 10 mg PO DAILY PRN PRN Reason: Constipation Stop: 02/06/24 16:29 Bumetanide (Bumetanide 0.5 Mg Tablet) 0.5 mg PO DAILY@0800 [facility] Stop: 02/11/24 07:59 Enoxaparin Sodium (Enoxaparin 40 Mg/0.4 Ml Syringe) 40 mg SUBCUT DAILY@10 PAT Stop: 02/07/24 09:59 Last Admin: 02/10/23 10:35 Dose: Not Given Gabapentin (Gabapentin 600 Mg Tablet) 1,200 mg PO BID PAT Stop: 02/06/24 20:59 Last Admin: 02/10/23 08:49 Dose: 1,200 mg Glipizide (Glipizide 2.5 Mg Tab.Er.24) 2.5 mg PO BID.WITH.MEALS [facility] Stop: 02/07/24 07:59 Last Admin: 02/10/23 08:50 [...] DAILY@0630 PAT Stop: 02/07/24 06:29 Last Admin: 02/10/23 06:52 Dose: 25 mcg Magnesium Oxide (Magnesium Oxide 400 Mg Tablet) 400 mg PO BID PAT Stop: 02/06/24 20:59 Last Admin: 02/10/23 08:49 [...] BID PAT Stop: 02/06/24 20:59 Last Admin: 02/10/23 08:49 [...] BID PAT Stop: 02/08/24 08:59 Last Admin: 02/10/23 08:50 Dose: 25 mg Thiamine HCl (Thiamine 100 Mg Tablet) 100 mg PO DAILY PAT Stop: 02/07/24 08:59 Last Admin: 02/10/23 08:49 [...] DAILY PAT Stop: 02/07/24 08:59 Last Admin: 02/10/23 08:50 [...] labs. Documented By: Mina Reilly MD 02/10/23 1358 Signed By: <Electronically signed by MD Mina Reilly> 02/10/23 [facility] Work Phone: 1(765) 427-558011-26-2023 Progress note Author Deanne Gaxiola [facility] February 10, 2023 11:24am Note Date/Time February 10, 2023 11:24am [facility] [address] [place] [address] Cardiology Progress Note Signed Patient: Sandra Potter MR#: [id number] : 1955 Acct:[id number] Age/Sex: 67 / M Adm Date: 3 Loc: 4 Room: [id number] Type: ADM IN Attending Dr: Subhash Duckworth [...] By: <Electronically signed by MD Deanne Gaxiola> 02/10/234 [facility] Work Phone: 1([phone]) [phone] Progress note [facility] 09, 2023 3:30pm Note Date/Time February 09, 2023 3:30pm [facility] [address] [place] [address] Nephrology Progress Note Signed Patient: Sandra Potter MR#: [id number] : 1955 Acct:[id number] Age/Sex: 67 / M Adm Date: 3 Loc: 4 Room: [address] [place] [address] Type: ADM IN Attending Dr: Subhash Duckworth [...] has multiple toes amputation. He follow-up withDr. Bolden, podiatry. Skin: No rashes or bruises Musculoskeletal: [...] or fever Stop: 02/06/24 16:29 Last Admin: 02/09/23 13:15 Dose: 650 mg Albuterol (Albuterol Hfa [...] 0.5 Mg Tablet) 0.5 mg PO BID.WITH.MEALS [facility] Stop: 02/09/24 16:59 Enoxaparin Sodium (Enoxaparin 40 Mg/0.4 Ml Syringe) 40 mg SUBCUT DAILY@10 PAT Stop: 02/07/24 09:59 Last Admin: 02/09/23 09:41 Dose: 40 mg Gabapentin (Gabapentin 600 Mg Tablet) 1,200 mg PO BID PAT Stop: 02/06/24 20:59 Last Admin: 02/09/23 08:21 Dose: 1,200 mg Glipizide (Glipizide 2.5 Mg Tab.Er.24) 2.5 mg PO BID.WITH.MEALS [facility] Stop: 02/07/24 07:59 Last Admin: 02/09/23 08:21 Dose: 2.5 mg Sodium Chloride (0.9% Sodium Chloride 1,000 Ml) 1,000 mls @ 20 mls/hr IV .Q24H [facility] Stop: 02/11/24 15:59 Gentamicin Sulfate 220 mg/ [...] PRN PRN Reason: Nausea And Vomiting Stop: 11/21/24 16:29 Pantoprazole Sodium (Pantoprazole 40 Mg Tablet.Dr) [...] Juliano Conteh M.D.02/08/2023 8:21 PM Dictation Location: [place] [address] Any impression(s) listed above is documentation that [...] <Electronically signed by MD Mina Reilly> 02/09/23 949 [facility] Work Phone: [phone]) 159-704611-25-2023 Progress note Author Subhash Duckworth [facility] February 09, 2023 2:33pm Note Date/Time February 09, 2023 2:33pm [facility] [address] [place] [address] Hospitalist Progress Note Signed Patient: Sandra Potter MR#: [id number] : 1955 Acct:[id number] Age/Sex: 67 / M Adm Date: 3 Loc: 4 Room: [address] [place] [address] Type: ADM IN Attending Dr: Subhash Duckworth [...] 02/09/23 08:20 Pantoprazole 40 Mg Tablet.Dr PO 02/06/24 20:59 [...] No hematemesis, melena, or [facility]ochezia. [facility] was bradycardic with heart rate [...] <Electronically signed by Subhash Duckworth MD> 02/09/23 0723 [facility] Work Phone: [phone] Progress note Author Deanne Gaxiola [facility] February 09, 2023 10:43am Note Date/Time February 09, 2023 10:35am [facility] [address] [place] [address] Cardiology Progress Note Signed Patient: Sandra Potter MR#: [id number] : 1955 Acct:[id number] Age/Sex: 67 / M Adm Date: 3 Loc: Room: [address] [place] [address] Type: ADM IN Attending Dr: Subhash Duckworth [...] signed by MD Deanne Gaxiola> 02/09/23 1043 [facility] Work Phone: [phone] 212-629211-24-2023 Consult note Author Mina Reilly [facility] February 08, 2023 1:01pm Note Date/Time February 08, 2023 1:02pm [facility] [address] [place] [address] Nephrology Consult Note Signed Patient: Sandra Potter MR#: [id number] : 1955 Acct:[id number] Age/Sex: 67 / M Adm Date: 3 Loc: Room: [address] [place] [address] Type: ADM IN Attending Dr: Barry Cisneros [...] and no additional complaints, except as documented [facility] Medical History (Updated 02/08/23 @ 12:53 by [...] mg PO DAILY 02/06/23 [History Confirmed 02/06/23] Active Medications: Active Medications [...] 300 Mg Tablet) 300 mg PO DAILY [facility] Stop: 02/07/24 08:59 Last Admin: 02/08/23 08:31 Dose: 300 mg Aspirin (Aspirin 81 Mg Tablet.) 81 mg PO [facility] Stop: 02/06/24 21:59 Last Admin: 02/07/23 21:26 Dose: 81 mg Atorvastatin Calcium (Atorvastatin 20 Mg Tablet) 20 mg PO [facility] Stop: 02/06/24 21:59 Last Admin: 02/07/23 21:26 Dose: 20 mg Atropine Sulfate (Atropine Sulfate 1 Mg/10 Ml Syringe) 1 mg IV-PUSH ONCE PRN PRN Reason: Bradycardia Bisacodyl (Bisacodyl 5 Mg Tablet.Dr) 10 mg PO DAILY PRN PRN Reason: Constipation Stop: 02/06/24 16:29 Bumetanide (Bumetanide 1 Mg Tablet) 1 mg PO BID.WITH.MEALS PAT Stop: 02/08/24 07:59 Last Admin: 02/08/23 08:30 Dose: 1 mg Enoxaparin Sodium (Enoxaparin 40 Mg/0.4 Ml Syringe) 40 mg SUBCUT DAILY@10 PAT Stop: 02/07/24 09:59 Last Admin: 02/08/23 09:46 Dose: 40 mg Gabapentin (Gabapentin 600 Mg Tablet) 1,200 mg PO BID PAT Stop: 02/06/24 20:59 Last Admin: 02/08/23 08:31 Dose: 1,200 mg Glipizide (Glipizide 2.5 Mg Tab.Er.24) 2.5 mg PO BID.WITH.MEALS [facility] Stop: 02/07/24 07:59 Last Admin: 02/08/23 08:30 Dose: 2.5 mg Levothyroxine Sodium (Levothyroxine 25 Mcg Tablet) 25 mcg PO DAILY@0630 [facility] Stop: 02/07/24 06:29 Last Admin: 02/08/23 06:02 Dose: 25 mcg Magnesium Oxide (Magnesium Oxide 400 Mg Tablet) 400 mg PO BID PAT Stop: 02/06/24 20:59 Last Admin: 02/08/23 08:30 Dose: 400 mg Melatonin (Melatonin 5 Mg Tablet) 5 mg PO QHS PRN PRN Reason: Insomnia Stop: 02/06/24 16:29 Last Admin: 02/07/23 21:40 Dose: 5 mg Ondansetron HCl (Ondansetron 4 Mg/2 Ml Vial) 4 mg IV-PUSH Q8H PRN PRN Reason: Nausea And Vomiting Stop: 02/06/24 16:29 Pantoprazole Sodium (Pantoprazole 40 Mg Tablet.) 40 mg PO BID [facility] Stop: 02/06/24 20:59 Last Admin: 02/08/23 08:31 Dose: 40 mg Potassium Chloride (Potassium Chloride Er 20 Meq Tab.Er.Prt) 40 meq PO DAILY PRN PRN Reason: Hypokalemia Stop: 02/08/24 08:42 Senna/Docusate Sodium (Sennosides/Docusate 8.6-50mg 1 Tab Tablet) 2 tab PO QHS PAT Stop: 02/06/24 21:59 Last Admin: 02/07/23 21:26 Dose: 2 tab Sodium Chloride (Sodium Chloride 0.9 % 10 Ml Syringe) 0 ml IV-PUSH PRN PRN PRN Reason: Flush Stop: 02/06/24 12:17 Last Admin: 02/06/23 15:55 Dose: 10 ml Spironolactone (Spironolactone 25 Mg Tablet) 25 mg PO BID PAT Stop: 02/08/24 08:59 Last Admin: 02/08/23 09:46 Dose: 25 mg Thiamine HCl (Thiamine 100 Mg Tablet) 100 mg PO DAILY PAT Stop: 02/07/24 08:59 Last Admin: 02/08/23 08:30 [...] H PTH Intact Ur Random Creatinine 02/06/23 02/07/23 02/07/23 13:23 04:37 10:38 RDW Lymph # (Auto) [...] 1234 Signed By: <Electronically signed by MD Mnia Reilly> 02/08/23 1301 [facility] Work Phone: 1([phone]) 868-911511-24-2023 Progress note [facility] February 08, 2023 12:42pm Note Date/Time February 08, 2023 10:23am [facility] [address] [place] [address] Hospitalist Progress Note Signed with Camila Patient: Sandra Potter MR#: [id number] : 1955 Acct:[id number] Age/Sex: 67 / M Adm Date: 3 Loc: 4P Room: [id number] Type: ADM INOo Attending Dr: Barry Cisneros [...] <Electronically signed by Barry Cisneros MD> 02/08/23 124 Date of Service: 02/08/2023 Subjective Subjective Narrative: [...] signed by Barry Cisneros MD> 02/08/23 1023 [facility] Work Phone: 1([phone]) 434-322111-24-2023 Progress note Author Deanne Gaxiola [facility] February 08, 2023 11:45am Note Date/Time February 08, 2023 11:38am [facility] [address] [place] [address] Cardiology Progress Note Signed Patient: Sandra Potter MR#: [id number] : 1955 Acct:[id number] Age/Sex: 67 / M Adm Date: 3 Loc: Room: [address] [place] [address] Type: ADM INOo Attending Dr: Barry Cisneros [...] signed by MD Deanne Gaxiola> 02/08/23 1145 [facility] Work Phone: [phone] Progress note Author Mina Reilly [facility] February 07, 2023 2:32pm Note Date/Time February 07, 2023 2:32pm [facility] [address] [place] [address] Event Note Signed Patient: Sandra Potter MR#: [id number] : 1955 Acct:[id number] Age/Sex: 67 / M Adm Date: 3 Loc: Room: 0D3229-5 Type: ADM INOo Attending Dr: Barry Cisneros [...] By: <Electronically signed by MD Mina Reilly> 02/07/23 1432 [facility] Work Phone: [phone] Consult note Author Deanne Gaxiola [facility] February 07, 2023 2:05pm Note Date/Time February 07, 2023 1:52pm [facility] [address] [place] [address] Cardiology Consult Note Signed Patient: Sandra Potter MR#: [id number] : 1955 Acct:[id number] Age/Sex: 67 / M Adm Date: 3 Loc: Room: [address] [place] [address] Type: ADM INOo Attending Dr: Barry Cisneros [...] and no additional complaints, except as documented PMF Source: Unable to Obtain Medical History (Updated [...] Saturday. The possibility of transferring him to [place] for pacemaker tomorrow discussed with the patient for social and family situation would prefer to stay here till Saturday to have the pacemaker done locally 2. Hold potassium replacement Tortal K less than 5 3. Check echocardiogram Documented By: Deanne Gaxiola MD 02/07/23 1350 Signed By: <Electronically signed by MD Deanne Gaxiola> 02/07/23 9959 [facility] Work Phone: [phone] Progress note Author Barry Cisneros [facility] February 07, 2023 11:08am Note Date/Time February 07, 2023 11:08am [facility] [address] [place] [address] Hospitalist Progress Note Signed Patient: Sandra Potter MR#: [id number] : 1955 Acct:[id number] Age/Sex: 67 / M Adm Date: 3 Loc: Room: [id number] Type: ADM INOo Attending Dr: Barry Cisneros [...] Dose Route Start Last Admin Trade Name Mahsa PRN Reason Stop Dose Admin Acetaminophen 650 [...] 02/06/23 21:00 02/07/23 09:03 Pantoprazole 40 Mg Tablet.Dr PO 02/06/24 20:59 [...] By: <Electronically signed by Barry Cisneros MD> 02/07/238 [facility] Work Phone: [phone]) 735-507711-22-2023 History and physical note Author Barry Cisneros [facility] February 06, 2023 4:29pm Note Date/Time February 06, 2023 4:20pm [facility] [address] [place] [address] Hospitalist H&P Signed Patient: Sandra Potter MR#: [id number] : 1955 Acct:[id number] Age/Sex: 67 / M Adm Date: 3 Loc: ER Room: Type: [facility] ER Attending Dr: Copies to: MD [...] with heart rate went to the 30s. [facility] Medical History (Updated 02/06/23 @ 16:22 by [...] % (Auto) 16.3 % (.) 02/06/23 13:05 [place] % (Auto) 10.8 % (.) 02/06/23 13:05 Eos % (Auto) 5.4 % (.) 02/06/23 13:05 Baso % (Auto) 0.9 % (.) 02/06/23 13:05 Nucleat RBC Rel Count 0.1 /100 WBC (0-0.5) 02/06/23 13:05 Neut # (Auto) 3.7 x10E3/uL (1.8-7.7) 02/06/23 13:05 Lymph # (Auto) 0.9 x10E3/uL (1.00-4.8) L 02/06/23 13:05 [place] # (Auto) 0.6 x10E3/uL (0.0-0.8) 02/06/23 13:05 [...] pH 5.5 (5.0-9.0) 02/06/23 12:56 Ur Specific [place] 1.010 (1.001-1.030) 02/06/23 12:56 Urine Protein Negative [...] <Electronically signed by Barry Cisneros MD> 02/06/23 1629 [facility] Work Phone: 1(241) 593-295911-22-2023 History and physical note Author Barry Cisneros [facility] February 06, 2023 4:29pm Note Date/Time February 06, 2023 4:20pm [facility] ENTER [address] [place] [address] Hospitalist H&P Signed Patient: Sandra Potter MR#: [id number] : 1955 Acct:[id number] Age/Sex: 67 / M Adm Date: 3 Loc: ER Room: Type: [facility] ER Attending Dr: Copies to: MD [...] with heart rate went to the 30s. [facility] Medical History (Updated 02/06/23 @ 16:22 by Barry Cisneros MD) Amputation toe Atrial fibrillation Cardiomyopathy Chronic renal disease Diabetes mellitus Hx of intestinal obstruction Hyperlipemia Hypertension Hypothyroid Large B-cell lymphoma ZAYAR (obstructive sleep apnea) Presence of Watchman left [...] % (Auto) 16.3 % (.) 02/06/23 13:05 [place] % (Auto) 10.8 % (.) 02/06/23 13:05 Eos % (Auto) 5.4 % (.) 02/06/23 13:05 Baso % (Auto) 0.9 % (.) 02/06/23 13:05 Nucleat RBC Rel Count 0.1 /100 WBC (0-0.5) 02/06/23 13:05 Neut # (Auto) 3.7 x10E3/uL (1.8-7.7) 02/06/23 13:05 Lymph # (Auto) 0.9 x10E3/uL (1.00-4.8) L 02/06/23 13:05 [place] # (Auto) 0.6 x10E3/uL (0.0-0.8) 02/06/23 13:05 [...] pH 5.5 (5.0-9.0) 02/06/23 12:56 Ur Specific [place] 1.010 (1.001-1.030) 02/06/23 12:56 Urine Protein Negative [...] <Electronically signed by Barry Cisneros MD> 02/06/23 1629 [facility] Work Phone: 1([phone]) 431-451309-27-2023 Evaluation note* Encounter Date Diagnosis Assessment Notes Treatment Notes Treatment Clinical Notes Nov, Chronic venous insufficiency (ICD-10 - I87.2) [employer] Other 08-31-2023 Note [id number]:127[facility] 10-11-2022 Evaluation note* Encounter Date Diagnosis Assessment [...] with Rheumatology. He is also now following [facility] Dr. Ding-- neurosurgery. Sep, Osteoarthritis of spine with [...] self every morning before breakfast and inform certified welding inspector if weight increases more than 2 pounds [...] occurs. Patient will continue to follow with internal controls specialist. Specialty notes reviewed as received. Sep, [...] no improvement and will trial on Trazadone. [employer] Other 07-14-2023 Evaluation note* Encounter Date Diagnosis Assessment Notes Treatment Notes Treatment Clinical Notes Sep, Low serum potassium level (ICD-10 - E87.6) [employer] Other 06-28-2023 Evaluation note* Encounter Date Diagnosis [...] to MRI due to anxiety and claustrophobia. [employer] Other 06-26-2023 Evaluation note* Encounter Date Diagnosis Assessment Notes Treatment Notes Treatment Clinical Notes Aug, Situational anxiety (ICD-10 - F41.8) [employer] Other 06-20-2023 Evaluation note* Encounter Date Diagnosis [...] or radiculopathy, lumbar region (ICD-10 - M47.816) [employer] Other 06-13-2023 Evaluation note* Encounter Date Diagnosis [...] lumbosacral spine without myelopathy (ICD-10 - M47.817) 13 Jaiden, 2023 Memory loss (ICD-10 - R41.3) Discussed with [...] Will call with resutls and further recommendations. [employer] Other 05-09-[address] [facility]* Encounter Date Diagnosis Assessment Notes Treatment Notes Treatment Clinical Notes Jun, Cervical back pain with evidence of disc disease (ICD-10 - M50.90) [employer] Other 03-30-2023 Evaluation note* Encounter Date Diagnosis [...] note writ ten by Shantanu Li LPN, Residential Driver. Edited and approved by Dr. Lavon Sandoval MD. [employer] Other 03-02-2023 Evaluation note* Encounter Date Diagnosis [...] Other Above note writ ten by Shantanu iL LPN, Residential Driver. Edited and approved by Dr. Lavon Sandoval MD. [employer] Other 02-09-2023 Evaluation note* Encounter Date Diagnosis [...] note writ ten by Sunday Melara MA, Residential Driver. Edited and approved by Dr. Lavon Sandoval [...] negative findings were considered in medical decision-making. [employer] Other 02-03-2023 Evaluation note* Encounter Date Diagnosis Assessment Notes Treatment Notes Treatment Clinical Notes Apr, Type 2 diabetes mellitus with other circulatory complication, without long-term current use of insulin (ICD-10 - E11.59) [employer] Other 01-16-2023 Evaluation note* Encounter Date Diagnosis [...] (ICD-10 - M1A.9XX0) Stable, no gout attacks. [employer] Other 12-19-2022 Evaluation note* Encounter Date Diagnosis Assessment Notes Treatment Notes Treatment Clinical Notes Feb, Acquired hypothyroidism (ICD-10 - E03.9) [employer] Other 10-17-2022 Evaluation note* Encounter Date Diagnosis Assessment Notes Treatment Notes Treatment Clinical Notes Dec, Claustrophobia (ICD-10 - F40.240) [employer] Other 10-06-2022 Progress note Author Sima Wagner [facility] December 21, 2021 9:07am Note Date/Time December 21, 2021 9: 07am [facility] EN[facility] [address] [place] [address] Wound Center Provider Note Signed Patient: Sandra Potter MR#: [id number] : 1955 Acct:[id number] Age/Sex: 66 / M Copies to: Pete Begum,FILIPE, MS, CWS Geeta Dumont, GOLDEN, MORTGAGE COUNSELOR Sima Wagner, GOLDEN~ HPI Date of Visit Date of Visit: Date of Service: 12/21/2021 Time of Service: 08:58 Narrative HPI: 12/21/21 Adenike is a 66-year-old male presenting to [facility] wound care program lakisha initial visit for [...] wound start?: October 2021 Mode of Arrival/ Button Pusher: Personal vehicle Lives with:: Spouse Appetite Description: Within Normal Limits Who helps w/ dressing change?: Self Smoking Status: Former smoker [facility] Medical History (Updated 12/21/21 @ 09:06 by [...] extends to tendon,bone Bed Appearance: Beefy Red, [place] and Yellow Percent of Wound Bed Granulated/Red: [...] <Electronically signed by GOLDEN Wagner> 12/21/21 0907 [facility] Work Phone: 1(417) 382-918909-30-2022 Evaluation note* Encounter Date Diagnosis Assessment Notes [...] fibrillation (ICD-10 - I48.19) Follows with Cardoiology tala. Nov, Chronic venous insufficiency (ICD-10 - I87.2) [...] Nov, Encounter for immunization (ICD-10 - Z23) [employer] Other 09-15-2022 Evaluation note* Encounter Date Diagnosis Assessment Notes Treatment Notes Treatment Clinical Notes Nov, Other chronic pain (ICD-10 - G89.29) Nov, Cervical back pain with evidence of disc disease (ICD-10 - M50.90) [employer] Other 09-12-2022 Evaluation note* Encounter Date Diagnosis [...] verbalizes understanding and agrees c tx plan. [employer] Other 08-15-2022 Evaluation note* Encounter Date Diagnosis [...] any SOB, chest pain or exertional dyspnea. [employer] Other 07-25-2022 Evaluation note* Encounter Date Diagnosis Assessment Notes Treatment Notes Treatment Clinical Notes Sep, Hypokalemia (ICD-10 - E87.6) [employer] Other 07-15-2022 Evaluation note* Encounter Date Diagnosis [...] foot (ICD-10 - M86.172) Left great toe [employer] Other 06-14-2022 Note [id number]06-07-2022 Evaluation note* Encounter Date Diagnosis Assessment Notes [...] understanding and agrees with plan of care. [employer] Other 03-28-2022 Evaluation note* Encounter Date Diagnosis [...] fluid intake monitor your intake and output. [employer] Other 12-13-2021 Note From: Kathi Spangler ([facility] ([facility] To: Francisco Li DO; Sent: 02/27/2021 07:26:47 EST Subject: FW: Medication Management Due Date/Time: 02/27/2021 22:32:00 EST From: [employer] [facility] To: Francisco Li DO Sent: February 25, 2021 9:32:13 PM FUR DRUMMER Subject: Medication Management Due: February 26, 2021 12:32:03 AM F[facility] DRUMMER On Hold Pending Signature Drug: glipiZIDE (glipiZIDE 2.5 mg oral tablet, extended release), TAKE 1 TABLET BY MOUTH TWICE DAILY Quantity: 180 tab(s) Days Supply: 90 Refills: 3 Substitutions Allowed Notes from Pharmacy: - First Attempt Ref: [id number] Dispensed Drug: glipiZIDE (glipiZIDE 2.5 mg oral tablet, extended release), TAKE 1 TABLET BY MOUTH TWICE DAILY Quantity: 180 tab(s) Days Supply: 90 Refills: 3 Substitutions Allowed Notes from Pharmacy: Requesting 1 year supply From: Francisco Li DO To: [employer] [facility] Sent: 02/27/2021 07:31:43 EST Subject: FW: Medication Management Submitted: Complete:glipiZIDE (glipiZIDE 2.5 mg oral tablet, extended release) Signed by Francisco Li DO 02/27/2021 07:31:00 EST Approved glipiZIDE (GLIPIZIDE 2.5MG TAB XL) TAKE 1 TABLET BY MOUTH TWICE DAILY Qty: 180 tab(s) Days Supply: 90 Refills: 3 Substitutions Allowed Route To Pharmacy - [facility] from [facility]acy: [id number] Note From: Kathi Spangler ([facility] ([facility])) To: Francisco Li DO; Sent: 02/15/2021 07:39:49 EST Subject: FW: Medication Management Due Date/Time: 02/15/2021 23:39:00 EST Patient matched by Kathi Spangler on 02/15/2021 07:39:43 EST From: [employer] [facility] To: Francisco Li DO Sent: February 14, 2021 10:39:16 PM FUR DRUMMER Subject: Medication Management Due: February 15, 2021 5:07:44 PM FUR DRUMMER On Hold Pending Signature Drug: omeprazole (omeprazole 40 mg oral delayed release capsule), TAKE 1 CAPSULE BY MOUTH TWICE DAILY Quantity: 180 cap(s) Days Supply: 90 Refills: 3 Substitutions Allowed Notes from Pharmacy: - First Attempt Ref: [id number] Dispensed Drug: Omeprazole 40 MG Oral Capsule [...] Notes from Pharmacy: - First Attempt Ref: [id number] Dispensed Drug: levothyroxine (levothyroxine 50 mcg (0.05 mg) oral tablet), TAKE 1 TABLET BY MOUTH DAILY Quantity: 90 tab(s) Days Supply: 90 Refills: 3 Substitutions Allowed Notes from Pharmacy: Requesting 1 year supply From: Francisco Li DO To: [employer] [facility] Sent: 02/15/2021 07:59:23 EST Subject: [...] SERVICE Note from Pharmacy: [id number] Progress note Author Sandra Danielson [facility] November 10, 2020 10:56am Note Date/Time November 10, 2020 10 :41am [facility] [place] [address] Hem/Onc Follow Up Note - OP Signed Patient: Sandra Potter MR#: [id number] : 1955 Acct:[id number] Age/Sex: 65 / M Type: REG RCR [...] arthroplasty in ; Sleevegastrectomy in 2011 at [facility]. FAMILY HISTORY: One brother, one son and no cancer. One paternal aunt had unknown type of cancer in her age of 70s. 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 Former smoker with a 100 pack-year smoking [...] He had CT chest in 02/2020 at [facility] 11/09/20 had bronchoscopy at [facility] in august. told it was scar tissue. [...] for coordination of care (as documented) and xoul-ub-acat counseling of patient and/or family. [facility] - Medical History Medical History: Medical History [...] by Sandra Danielson II, DO> 11/10/20 1056 [facility] Work Phone: 1(626) 679-413206-10-2021 History of Present illness Narrative* Jacey Rizvi RN - 08/25/2020 2:02 PM EDT Discharge instructions reviewed with pt. Pt verb understanding. documented in this [facility] Work Phone: 1([phone]) 635-183906-10-2021 Hospital Discharge instructions* Instructions* Ulisses Nieves MD - 08/25/2020 Images from the original note were not included. [facility]-BRONCHOSCOPY INSTRUCTIONS 1. ACTIVITY No driving, operating [...] QUESTIONS, PLEASE CALL YOUR DOCTOR OR THE [facility] AT [phone]. Bronchoscopy: What to Expect at Home Your [...] your doctor if you can take an twck-ezs-wlpijqa medicine. ? If you think your pain [...] Where can you learn more? Go to [email or web address] and sign in to your [employer] account. Enter S288 in the Search Health Information box to learn more about Bronchoscopy: What to Expect at Home. If you do not have an account, please click on the Sign Up Now link. Current as of: July 27, 2016 Content Version: 11.5 9220-3415 [employer]. Care instructions adapted under license by [employer]. If youhave questions about a medical condition or this instruction, always ask your healthcare professional. [employer] disclaims any warranty or liability for your use of this information. documented in this [facility] Work Phone: 1(458) 280-131902-25-2021 Progress note Author Brendan Bolaños [facility] May 12, 2020 1:33pm Note Date/Time May 12, 2020 1:27pm [facility] at [address] [address] Hem/Onc Follow Up Note - OP Signed Patient: Sandra Potter MR#: [id number] : 1955 Acct:[id number] Age/Sex: 64 / M Type: REG RCR [...] He had CT chest in 02/2020 at [facility], was told that there was no [...] arthroplasty in ; Sleevegastrectomy in 2011 at [facility]. FAMILY HISTORY: One brother, one son and no cancer. One paternal aunt had unknown type of cancer in her age of 70s. 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 Former smoker with a 100 pack-year smoking [...] MUSCULOSKELETAL: Positive for chronic joint pain, stable. [facility] - Medical History Medical History: Medical History [...] have personally reviewed his CT chest at [facility], no evidence of disease. Hemoptysis is [...] for coordination of care (as documented) and grfo-mp-uoqk counseling of patient and/or family. Dictated By: Brendan Bolaños MD DD/ 1326 Signed By: <Electronically signed by Brendan Bolaños MD> 05/12/20 1333 [facility] Work Phone: 1([phone]) [phone] Progress note Author Brendan Bolaños [facility] November 12, 2019 4:58pm Note Date/Time November 12, 2019 3: 09pm [facility] [place] [id number] Hem/Onc Follow Up Note - OP Signed Patient: Sandra Potter MR#: [id number] : 1955 Acct:[id number] Age/Sex: 64 / M Type: REG RCR [...] arthroplasty in ; Sleevegastrectomy in 2011 at [facility]. FAMILY HISTORY: One brother, one son and no cancer. One paternal aunt had unknown type of cancer in her age of 70s. 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 Former smoker with a 100 pack-year smoking [...] index finger paronychia on antibiotics and improving. PMF - Medical History Medical History: Medical History [...] % (Auto) 71.2, Lymph % (Auto) 12.0, [place] % (Auto) 12.1, Eos % (Auto) 4.0, Baso % (Auto) 0.7, Neut # (Auto) 4.4, Lymph # (Auto) 0.7 L, [place] # (Auto) 0.7, Eos # (Auto) 0.2, [...] for coordination of care (as documented) and dxgf-lv-fxxl counseling of patient and/or family. Dictated By: Brendan Bolaños MD DD/ 1509 Signed By: <Electronically signed by Brendan Bolaños MD> 11/12/19 1658 [facility] Work Phone: 1([phone]) 713-310205-12-2020 Progress note Author Brendan Bolaños [facility] July 28, 2019 2:56pm Note Date/Time July 28, 2019 11:12 am [facility] [place] [address] Hem/Onc Follow Up Note - OP Signed Patient: Sandra Potter MR#: [id number] : 1955 Acct:[id number] Age/Sex: 64 / M Type: REG RCR [...] arthroplasty in ; Sleevegastrectomy in 2011 at [facility]. FAMILY HISTORY: One brother, one son and no cancer. One paternal aunt had unknown type of cancer in her age of 70s. 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 Former smoker with a 100 pack-year smoking [...] index finger paronychia on antibiotics and improving. [facility] - Medical History Medical History: Medical History (Last Updated 03/13/19 @ 16:59 by Carolyn Schaefer, RN) Diabetes mellitus Hx of intestinal obstruction [...] Diagram of Most Recent CBC and CMP 11/09/19 11:48 07/28/19 10:34 Labs - Last 7 Days 07/28/19 10:34: PHA Creatinine Clear 81.2980139366, Sodium 134 L, Potassium 3.6,Chloride 97, Carbon [...] for coordination of care (as documented) and wgim-ob-jcqj counseling of patient and/or family. Dictated By: Brendan Bolaños MD DD/ 1112 Signed By: <Electronically signed by Brendan Bolaños MD> 07/28/19 8555 [facility] Work Phone: 1([phone] 279-460411-12-2019 Progress note Author Brendan Bolaños [facility] January 27, 2019 10:13am Note Date/Time January 27, 2019 9:57am [facility] [place] [address] Hem/Onc Follow Up Note - OP Signed Patient: Sandra Potter MR#: [id number] : 1955 Acct:[id number] Age/Sex: 63 / M Type: REG RCR [...] arthroplasty in ; Sleevegastrectomy in 2011 at [facility]. FAMILY HISTORY: One brother, one son and no cancer. One paternal aunt had unknown type of cancer in her age of 70s. 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 Former smoker with a 100 pack-year smoking [...] index finger paronychia on antibiotics and improving. [facility] - Social History Smoking Status: Former smoker [...] 7 Days 01/24/19 11:48: PHA Creatinine Clear 61.7145866861, Sodium 142, Potassium 4.4, Chloride 101, Carbon [...] % (Auto) 63.0, Lymph % (Auto) 15.6, [place] % (Auto) 15.8, Eos % (Auto) 4.5, Baso % (Auto) 1.1, Neut # (Auto) 3.3, Lymph # (Auto) 0.8 L, [place] # (Auto) 0.8, Eos # (Auto) 0.2, [...] for coordination of care (as documented) and gkvj-hp-fcaf counseling of patient and/or family. Dictated By: Brendan Bolaños MD DD/ 0955 Signed By: <Electronically signed by Brendan Bolaños MD> 01/27/19 1013 [facility] Work Phone: [phone] Progress note Author Brendan Bolaños [facility] August 27, 2018 9:42am Note Date/Time August 27, 2018 9:37 am [facility] [place] [address] Hem/Onc Follow Up Note - OP Signed Patient: Sandra Potter MR#: [id number] : 1955 Acct:[id number] Age/Sex: 63 / M Type: REG RCR [...] arthroplasty in ; Sleevegastrectomy in 2011 at [facility]. FAMILY HISTORY: One brother, one son and no cancer. One paternal aunt had unknown type of cancer in her age of 70s. 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 Former smoker with a 100 pack-year smoking [...] for coordination of care (as documented) and hwuj-wh-rolf counseling of patient and/or family. Dictated By: Brendan Bolaños MD DD/ Signed By: <Electronically signed by Brendan Bolaños MD> 08/27/18 0942 [facility] Work Phone: [phone] Progress note Author Brendan Bolaños [facility] August 19, 2018 10:20am Note Date/Time August 19, 2018 10:16 am [facility] [place] [address] Hem/Onc Follow Up Note - OP Signed Patient: Sandra Potter MR#: [id number] : 1955 Acct:[id number] Age/Sex: 63 / M Type: REG RCR [...] arthroplasty in ; Sleevegastrectomy in 2011 at [facility]. FAMILY HISTORY: One brother, one son and no cancer. One paternal aunt had unknown type of cancer in her age of 70s. 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 Former smoker with a 100 pack-year smoking [...] 7 Days 08/13/18 13:50: PHA Creatinine Clear 73.9798927276, Sodium 144, Potassium 3.7, Chloride 103, Carbon [...] % (Auto) 67.9, Lymph % (Auto) 13.9, [place] % (Auto) 13.0, Eos % (Auto) 4.7, Baso % (Auto) 0.5, Neut # (Auto) 3.9, Lymph # (Auto) 0.8 L, [place] # (Auto) 0.7, Eos # (Auto) 0.3, [...] for coordination of care (as documented) and uymq-yz-gsww counseling of patient and/or family. Dictated By: Brendan Bolaños MD DD/ 1014 Signed By: <Electronically signed by Brendan Bolaños MD> 08/19/18 1020 [facility] Work Phone: [phone] Progress note Author Brenadn Bolaños [facility] July 22, 2018 12:33pm Note Date/Time July 22, 2018 8:59am [facility] [place] [address] Hem/Onc Follow Up Note - OP Signed with Addenda Patient: Sandra Potter MR#: [id number] : 1955 Acct:[id number] Age/Sex: 63 / M Type: REG RCR Copies to: Francisco Li DO~ ADDENDUM1 Repeat CMP, Ca 9.9, improved. Vit D level is low 25, PTH normal 77. CXR reviewed by me, no overt lesions, report pending. Addendum Dictated By: Brendan Bolaños MD Addendum Signed By: 07/22/181232 Addendum Cosigned By: DD/ /03/1232 TD/TT: 07/22/1810/03/1232 [...] arthroplasty in ; Sleevegastrectomy in 2011 at [facility]. FAMILY HISTORY: One brother, one son and no cancer. One paternal aunt had unknown type of cancer in her age of 70s. 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 Former [...] 7 Days 07/17/18 10:18: PHA Creatinine Clear 70.2647568004, Sodium 139, Potassium 4.4, Chloride 99, Carbon [...] % (Auto) 65.4, Lymph % (Auto) 14.5, [place] % (Auto) 13.9, Eos % (Auto) 5.3, Baso % (Auto) 0.9, Neut # (Auto) 3.3, Lymph # (Auto) 0.7 L, [place] # (Auto) 0.7, Eos # (Auto) 0.3, [...] for coordination of care (as documented) and ydad-zq-snez counseling of patient and/or family. Dictated By: Brendan Bolaños MD DD/ 0858 Signed By: <Electronically signed by Brendan Bolaños MD> 07/22/18 1043 [facility] Work Phone: 1([phone]) [phone] Progress note Author Danya Quach [facility] February 04, 2018 4:01pm Note Date/Time February 04, 2018 3:10pm [facility] [place] [id number] Hem/Onc Follow Up Note - OP Signed Patient: Sandra Potter MR#: [id number] : 1955 Acct:[id number] Age/Sex: 62 / M Type: REG RCR Copies to: Francisco Li MD W Scott Sheldon, DO~ Subjective Date/Time of Service: Date of Service: 02/04/2018 Time of Service: 15:10 Chief Complaint: 6 month follow up- saw Dr Ureña for joint pain and feet neuropathy, started on Lyrica about 5 months ago, I saw him today. States that Naproxen 500mg as needed helps with body/joint aches. Continues to see Dr Burgess for cardiac issues. On Keflex from [facility] (last or Saturday) for finger infection and [...] arthroplasty in ; Sleevegastrectomy in 2011 at [facility]. FAMILY HISTORY: One brother, one son and no cancer. One paternal aunt had unknown type of cancer in her age of 70s. 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 Former smoker with a 100 pack-year smoking [...] with prior R CHOP on protocol on E14 Hypertension, grade 1 Recent left index finger [...] History Surgical history male: bariatric surgery - 2011, cancer surgery - Social History Tobacco Type: [...] % (Auto) 65.4, Lymph % (Auto) 14.0, [place] % (Auto) 15.6, Eos % (Auto) 4.1, Baso % (Auto) 0.9, Neut # (Auto) 3.6, Lymph # (Auto) 0.8 L, [place] # (Auto) 0.9 H, Eos # (Auto) [...] Date of Service: 01/31/18 XR/XR chest 2V*: USP MED USE Copies to: Stephanie Burgess, ~ [...] 1350 Dictated By: Norm Pulido MD 01/31/18 1342 Assessment and Plan (1) DLBCL (diffuse large [...] to 300 mg twice daily by Dr. Ybrara at visit earlier today. This also manages [...] for coordination of care (as documented) and lalx-ye-scju counseling of patient and/or family. Dictated By: Danya Quach MD DD/ 1510 Signed By: <Electronically signed by Danya Quach MD> 02/04/18 1601 [facility] Work Phone: [phone] Progress note Author Brendan Bolaños [facility] [facility] July 30, 2017 10:01am Note Date/Time July 30, 2017 9:31a m [facility] [place] [address] Hem/Onc Follow Up Note - OP Signed Patient: Sandra Potter MR#: [id number] : 1955 Acct:[id number] Age/Sex: 62 / M Type: REG RCR [...] arthroplasty in ; Sleevegastrectomy in 2011 at [facility]. FAMILY HISTORY: One brother, one son and no cancer. One paternal aunt had unknown type of cancer in her age of 70s. 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 25 - 35 minutes Dictated By: Brendan Bolaños MD DD/ 0930 Signed By: <Electronically signed by Brendan Bolaños MD> 07/30/17 1001 [facility] Work Phone: [phone]) 793-720802-13-2018 Progress note Author Brendan Bolaños [facility] April 30, 2017 6:01pm Note Date/Time April 30, 2017 4:16pm [facility] [place] [id number] Hem/Onc Follow Up Note - OP Signed Patient: Sandra Potter MR#: [id number] : 1955 Acct:[id number] Age/Sex: 61 / M Type: REG RCR [...] Labs CBC & Chem 7: 04/25/17 09:41 02 09:41 Labs: Calcium 9.2 mg/dL (8.2-10.2) 04/25/17 [...] for coordination of care (as documented) and qbbw-ze-pwpj counseling of patient and/or family. 25 - 35 minutes Dictated By: Brendan Bolaños MD DD/ 1615 Signed By: <Electronically signed by Brendan Bolaños MD> 04/30/17 1807 [facility] Work Phone: 1(443) 582-926311-07-2017 Progress note Author Brendan Bolaños [facility] January 22, 2017 1:16pm Note Date/Time January 22, 2017 1 :06pm [facility] [place] [address] Hem/Onc Follow Up Note - OP Signed Patient: Sandra Potter MR#: [id number] : 1955 Acct:[id number] Age/Sex: 61 / M Type: REG RCR [...] for coordination of care (as documented) and glon-et-fnqg counseling of patient and/or family. 25 - 35 minutes Dictated By: Brendan Bolaños MD DD/ 1305 Signed By: <Electronically signed by Brendan Bolaños MD> 01/22/17 1316 [facility] Work Phone: Chief complaint Narrative - ReportedSANDRA POTTER is being seen for a cardiovascular evaluation . ENA.AB-Wnjavciusf-VZD Brandi Mathur [address] [place] Work Phone: Evaluation + Plan note No data available for this section [facility] Diagnosis Preop testing- Primary Preoperative examination, unspecified documented in this encounter [facility] Phone: evaluation note* Diagnosis COVID-19 ruled out by laboratory testing- Primary documented in this encounter [facility] Phone: evalztetis note* Constitutional: Well developed, awake/alert/oriented x3, no [...] oriented x3.Psychological: Appropri ate mood and behavior [facility] Diagnosis Cough Hemoptysis Hemoptysis, unspecified SOB (shortness of breath) Shortness of breath documented in this encounter [facility] Phone: evalivxebp note* Diagnosis SOB (shortness of breath) Shortness of breath Hemoptysis Hemoptysis, unspecified documented in this encounter [facility] Phone: evalcfkclf noteNo [employer] Other Evaluation note* Diagnosis Onset Date Resolution [...] without comorbidity) chronic Peripheral neuropathy chroni c [facility] Work Phone: Evaluation note* Diagnosis Onset Date [...] 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 [facility] Work Phone: Evaluation noteNo assessment information available [facility] Work Phone: evaluation note* Diagnosis Onset Date Resolution Status Diabetes 1.5, managed as type 2 acute Hypercalcemia acute A-fib chronic CHF (congestive heart failure), NYHA class I chronic CKD (chronic kidney disease) stage 3, GFR 30-59 ml/min chronic 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 Joint pain chronic Obesity (BMI 35.0-39.9 without comorbidity) chronic Peripheral neuropathy chroni c [facility] Work Phone: Evaluation note* Diagnosis Onset Date [...] (hypertension) chronic Obesity (BMI 35.0-39.9 without comorbidity) [facility] Work Phone: Evaluation note* Diagnosis Onset Date [...] Type 2 diabetes mellitus with peripheral neuropathy [facility] Work Phone: Evaluation note* Diagnosis Onset Date [...] Generalized weakness acute Symptomatic bradycardia acut e [facility] Work Phone: Evaluation note* Diagnosis Onset Date [...] without comorbidity) chronic Peripheral neuropathy chroni c [facility] Work Phone: Evaluation note* Diagnosis Preoperative clearance Unspecified pre-operative examination Amputation of right great toe (CMS/HCC) Atherosclerosis of hopland coronary artery of hopland heart without angina pectoris Chronic atrial fibrillation (CMS/HCC) Atrial fibrillation Mild hypertrophic obstructive cardiomyopathy (CMS/HCC) Status post angioplasty Postsurgical percutaneous transluminal coronary angioplasty status Hyperlipidemia, unspecified hyperlipidemia type Essential hypertension Unspecified essential hypertension Presence of Watchman left atrial appendage closure device Former smoker Personal history of tobacco use, presenting hazards to health documented in this encounter [facility] Work Phone: Evaluation note* Diagnosis 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)- Primary 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, part unspecified documented in this encounter [facility] N[facility]ative - Reported* Type Description Date [...] 12/06 Hospitalization History No know Hospitalization history [employer] Other history general Narrative - Reported* Type [...] Surgical History 12/06 Hospitalization History No Hospitalization [employer] Other history general Narrative - Reported* Type [...] amputation 0 09/2021 Hospitalization History No Hospitalization [employer] Other history general Narrative - Reported* Type [...] amputation 0 09/2021 Hospitalization History No Hospitalization [employer] Other history general Narrative - Reported* Type [...] amputation 0 09/2021 Hospitalization History No Hospitalization histo ry information [employer] Other history general Narrative - Reported* Type [...] amputation 12/2021 Hospitalization History see surgical hx [employer] Other history general Narrative - Reported* Type [...] History gastric sleeve Hospitalization History see surgical [employer] Other [facility] general Narrative - Reported* Type Description Date [...] cardiac pacemeker 2022 Hospitalization History see surgical [employer] Other [facility] general Narrative - Reported* Type Description Date [...] HYPERCALCEMIA 02/08/2023 Hospitalization History PACEMAKER PLACEMENT 01/17 [employer] Other History of Present illness Narrative* PCP: [...] atrial appendage closure for stroke risk reduction. [facility]-Yoodpwsytw-IJT Brandi Mathur [address] [place] Work Phone: Hospital [...] have any concerns, you may contact the International Marketing Intern orif any of these symptoms become excessive, contact your certified welding inspector or go to the emergency room. No tub baths, soaking, or swimming for one week. May shower the next day after your procedure. * Follow Up Appointment 1:Physician/Dept/Service: Primary CardiologyCall to Schedule in: 1-2 weeksComments: Please follow-up with your Primary Emulsion Operator in 1-2 weeks after your Watchman procedure * Follow Up Appointment 2:Physician/Dept/Service: 45 day post-Watchman imaging (AYESHA or CTA) Fvmiopcq: You will have imaging (AYESHA or CTA) around the 45 day juliano. Please contact Jo Burris if you have not been notified of this appointment in 2-3 weeks [facility] No data available for this section [facility] note Author Vivian [facility] November 10, 2021 3:20pm Note Date/Time November 10, 2021 10 :40am [facility] at [address] [address] Hem/Onc Follow Up Note - OP Signed Patient: Sandra Potter MR#: [id number] : 1955 Acct:[id number] Age/Sex: 66 / M Type: REG RCR Copies to: Teri Aragon DO Sandra Margaret Danielson, DANA, DO~ Date of Service: 11/10/2021 Time of [...] arthroplasty in ; Sleevegastrectomy in 2011 at [facility]. FAMILY HISTORY: One brother, one son and no cancer. One paternal aunt had unknown type of cancer in her age of 70s. 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 Former smoker with a 100 pack-year smoking [...] [facility] had CT chest [facility] 11/09/20 had bronchoscopy at [facility] in august. told it was scar tissue. [...] for coordination of care (as documented) and usrv-vn-axdo counseling of patient and/or family. [facility] - Medical History Medical History: Medical History [...] % (Auto) 63.7, Lymph % (Auto) 15.5, [place] % (Auto) 12.3, Eos % (Auto) 7.6, Baso % (Auto) 0.9, Neut # (Auto) 4.1, Lymph # (Auto) 1.0, [place] # (Auto) 0.8, Eos # (Auto) 0.5 [...] <Electronically signed by GOLDEN Del Rosario> 11/10/21 6836 [facility] Work Phone: Progress note No data available for this section [facility] Summary Purpose Family History No Family History Records FoundUnknown Family Member Name Dates Details Family history [...] Mother, Father, Brother(V17.49, Z82.49) Status:Active Advance Directives No Advanced Directives Records Found Advance Directive Response Recorded Date/ Time Advance Directives No November 09, 2016 2:46pm Documents on File Type Date Recorded Patient Bottom Stainer Expl anation ACP-Advance Directive ACP-Power of Head Girls Golf Coach Documents on File Type Date Recorded Patient Bottom Stainer Expl anation ACP-Advance Directive ACP-Power of Head Girls Golf Coach Documents on File Type Date Recorded Patient Bottom Stainer Expl anation Advance Directives and Living Will Power of Head Girls Golf Coach Advance Directive Response Recorded Date/ Time Advance [...] Heart Monitor upon Discharge low heart rate [facility] Follow Up R53.83;M79.89;E83.42;E87.6;E87.5;M10.09;M15.0;Z79. Renal Hosp F/U [...] 35.0-39.9 without comorbidity) Peripheral neuropathy Chief Complaint M86.172 lt great toe weakness, dizzy Heart Monitor upon Discharge low heart rate [facility] Follow Up R53.83;M79.89;E83.42;E87.6;E87.5;M10.09;M15.0;Z79. Renal Hosp F/U c02.3 left great toe / (Dr Bolden) Anxiety e87.8 n18.31 e11.59 Medication Discussion - Increase Dose chronic nonpressure ulcer l foot r09.89 t17.908a n18.31 E87.8 Reason for Visit Bradycardia Generalized weakness Hypercalcemia [...] renal profile and electrolytes. Reason for Referral Specialty Diagnoses / Procedures Referred By Serafin membreno Referred To Contact Diagnoses Preoperative clearance Chronic atrial fibrillation ([facility]) Procedures ECG 12 Lead Viridiana Burgess, DO [facility] [facility], [address] [address] Referral ID Status Reason Start Date Expiration Date V isits Requested Visits Authorized [id number] Authorized 04/17/2023 04/16/2024 1 1 Specialty Diagnoses / Procedures Referred By Serafin membreno Referred To Contact Cardiology Diagnoses Amputation of right great toe ([facility]) Procedures Follow Up In Cardiology Viridiana Burgess, DO [facility] [facility], [address] [place] [address] Shameka Melara, BILLET INSPECTOR-MORTGAGE COUNSELOR [facility] [facility] [address], [address] [address] Referral ID Status Reason Start Date Expiration Date V isits Requested Visits Authorized [id number] Authorized 04/17/2023 04/16/2024 1 1 Reason eval and treat for t hyroid disorder Diagnosis 1 Elevated serum free T4 level (R79.89) Diagnosis 2 Chronic fatigue, uns pecified (R53.82) Diagnosis 3 Bradycardia (R00.1) Referral Organization [facility] Family Medicin e Simla Referring Provider First Name Ingris Referring Provider Last Name Munira Referring Provider Specialty Clinical Nu rse Specialist Referred Organization [facility] Endocrinology Referred Provider Kevin Alfredo Referred Address [address],[facility] ,[place], [place],[address] Referred Provider Specialty Internal Med icine Referral Priority Routine General Notes Madelaine Cutler 07/2022 09:09:07 AM >Patient does not want to see Juni and will be seeing Jae in regards Reason *FU 10/22 evaluate Diagnosis 1 Lesion of tongue (K1 4.8) [facility] Referring Provider First Name Geeta Referring Provider Last Name Rohrbacher Referring Provider Specialty Nurse Pract itioner Referred Organization [facility] Referred Provider Sindi Foster Referred Address ,[place], [place],[address] Referred Provider Specialty Ear, Nose an d [...] 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) Referral Organization [facility] [employer] Simla Referring Provider First Name Geeta Referring Provider Last Name Charissarbacher Referring Provider Specialty Nurse Pract itioner Referred Organization [facility] Neurosurgery B vickie Referred Provider Sabino Ding Referred Address [address] [place], [place],[address] Referred Provider Specialty Neurological Surgery Referral Priority Routine General Notes Ebony Powell 11:51:05 AM >received today, sent P2P Reason *FU 09/06 evaluate Diagnosis 1 Memory loss (R41.3) Diagnosis 2 Aphasia (R47.01) Referral Organization [facility] [employer] Simla Referring Provider First Name Geeta Referring Provider Last Name Derekacher Referring Provider Specialty Nurse Pract itioner Referred Organization [facility] Referred Provider Wie Soto Referred Address ,[place], [place],[address] Referred Provider Specialty Neurology Referral Priority Routine [...] section and content) DATE CREATED AUTHOR 10/03/2017 [facility] DATE CREATED AUTHOR AUTHOR'S ORGANIZ ATION 07/06/2020 [facility] DATE CREATED AUTHOR AUTHOR'S ORGANIZ ATION 10/10/2020 [facility] DATE CREATED AUTHOR AUTHOR'S ORGANIZ ATION 09/20/2021 [facility] dical Specialist DATE CREATED AUTHOR AUTHOR'S ORGANIZ ATION 11/07/2021 [facility] DATE CREATED AUTHOR AUTHOR'S ORGANIZ ATION 12/15/2021 [facility] DATE CREATED AUTHOR AUTHOR'S ORGANIZ ATION 07/04/2022 [facility] DATE CREATED AUTHOR AUTHOR'S ORGANIZ ATION 09/08/2022 [facility] DATE CREATED AUTHOR AUTHOR'S ORGANIZ ATION 09/08/2022 [facility] DATE CREATED AUTHOR AUTHOR'S ORGANIZ ATION 12/20/2022 [facility] Center DATE CREATED AUTHOR AUTHOR'S ORGANIZ ATION [facility] DATE CREATED AUTHOR AUTHOR'S ORGANIZ ATION 04/25/2023 [facility] dical Specialists EPIC DATE CREATED AUTHOR AUTHOR'S ORGANIZ ATION 04/26/2023 [facility] Reason for Visit (unrecogniz ed section and content) Status Reason Specialty Diagnoses / Procedures Referre d By Contact Referred To Contact Diagnoses Hemostasis disorder (HCC) Lung disease HEMOSTASIS, INTERSTITIAL LUNG DISEASE, HISTORY OF AMIODARONE THERAPY Procedures LA OFFICE/OUTPT VISIT,PROCEDURE ONLY LA BRNCHSC INCL FLUOR GDNCE DX W/CELL WASHG SPX BRONCHOSCOPY WITH Ulisses Saini MD [address] [address] [facility] Status Reason Specialty Diagnoses / Procedures Referre d By Contact Referred To Contact Diagnoses Hemoptysis Cough Shortness of breath Procedures CT CHEST W/O CONTRAST [facility] Reason Comments Follow-up 6 months, POC Specialty Diagnoses / Procedures Referred By Serafin membreno Referred To Contact Diagnoses Preoperative clearance Chronic atrial fibrillation (CMS/HCC) Procedures ECG 12 Lead Viridiana Burgess DO [address], [address] [place] [address] Referral ID Status Reason Start Date Expiration Date V isits Requested Visits Authorized [id number] Authorized 04/17/2023 04/16/2024 1 1 Reason Comments Cancer 1 mo follow up Scheduled Active and Recently Administ ered Medications (unrecognized section and content) Medication Order 08/23/2020 08/24/2020 08/25/2020 lidocaine PF 4 % injection 4 mL (COMPLETED) 4 mL, Inhalation, ONCE, On Luisa 08/25/20 at 1200, For 1 dose 1251 (Given - Provid er: Jacey Rizvi RN) Continuous Medication Order 08/23/2020 08/24/2020 08/25/2020 0.9 [...] Care Teams (unrecognized sec tion and content) Shovel Log Loader Operator Relationship Specialty Start Date End Date Russell [...] Lal DPM Referring Provider Active Teri Aragon DO Primary Care Provider Active Shirley Persaud MD Attending Provider Active Casey Bhardwaj MD Other Provider Active Pete Begum DPM Other Provider Active Team Status: Inactive Member Role Status Dates Francisco Li DO Primary Care Provider Active SHAISTA SilvaC Attending Provider Active Team Status: Inactive Member Role Status Dates Francisco Li DO Primary Care Provider Active Geeta Dumont APRN ELECTRICAL PRODUCTS ENGINEER-C Attending Provider Act boogie Team Status: Active Member Role Status Dates Teri Aragon DO Primary Care Provider Active Team Status: Inactive Member Role Status Dates Pete Begum DPM Attending Provider Active Team Status: Inactive Member Role Status Dates Teri Aragon , Primary Care Provider Active SHAISTA SilvaC Attending Provider Active Team Status: Inactive Member Role Status Dates Sima Wagner APRN Attending Provider Active Geeta Dumont APRN ELECTRICAL PRODUCTS ENGINEER-C Primary Care Provider Active Team Status: Inactive Member Role Status Dates Pete Begum DPM Attending Provider Active PHYSICIAN NO FAMILY Primary Care Provider Active Team Status: Active Member Role Status Dates Geeta Dumont APRN ELECTRICAL PRODUCTS ENGINEER-C Primary Care Provider Active Team Status: Inactive Member Role Status Dates Geeta Dumont , BILLET INSPECTOR ELECTRICAL PRODUCTS ENGINEER-C Primary Care Provider, Attending Provider Active Team Status: Inactive Member Role Status Dates Geeta Dumont , BILLET INSPECTOR ELECTRICAL PRODUCTS ENGINEER-C Primary Care Provider Active Joana Farooq NP-C Attending Provider Active W Nannette Burgess DO Referring Provider Active Team Status: Inactive Member Role Status Dates Geeta Ernandezr , BILLET INSPECTOR ELECTRICAL PRODUCTS ENGINEER-C Primary Care Provider Active Dario Bolden DPM Attending Provider Active Team Status: Inactive Member Role Status Dates Geeta Dumont , BILLET INSPECTOR ELECTRICAL PRODUCTS ENGINEER-C Primary Care Provider Active Arron Valverde MD Attending Provider Active Team Status: Inactive Member Role Status Dates Geeta Dumont , BILLET INSPECTOR ELECTRICAL PRODUCTS ENGINEER-C Primary Care Provider Active Lavon Sandoval MD Attending Provider Active Team Status: Inactive Member Role Status Dates Geeta Dumont , BILLET INSPECTOR ELECTRICAL PRODUCTS ENGINEER-C Primary Care Provider Active Sabino Ding MD Attending Provider Active Team Status: Inactive Member Role Status Dates Geeta Reedmarian , BILLET INSPECTOR ELECTRICAL PRODUCTS ENGINEER-C Primary Care Provider Active Stephanie Burgess DO Attending Provider Active Team Status: Active Member Role Status Dates NON STAFF Primary Care Provider Active Team Status: Inactive Member Role Status Dates Geeta Dumont , BILLET INSPECTOR ELECTRICAL PRODUCTS ENGINEER-C Attending Provider Act boogie NON STAFF Primary Care Provider Active Team Status: Inactive Member Role Status Dates NON STAFF Primary Care Provider Active Teri Ybarra MD Attending Provider Active Team Status: Inactive Member Role Status Dates NON STAFF Attending Provider Active Team Status: Inactive Member Role Status Dates Vivian Choulazarus , BILLET INSPECTOR Attending Provider Acti ve Team Status: Inactive Member Role Status Dates Teri Aragon , Primary Care Provider Active Stephanie Burgess DO Attending Provider Active Team Status: Inactive [...] MD Other Provider Active Naomi Greenfield , [facility]- Other Provider Active Kelsea Yancey MD Other [...] MD Other Provider Active Naomi Greenfield , [facility]- Other Provider Active Kelsea Yancey MD Other [...] Aragon , DO Primary Care Provider Active Humberto Zeng PA-C Emergency Provider Active Polly Velasquez MD Admit Provider, Attending Provider Active Team Status: Inactive Member Role Status Dates Teri Aragon , DO Primary Care Provider Active Ingris Lombardo APRN Attending Provider Active Subhash Duckworth MD Referring Provider Active Joana Farooq NP-Serafin Other Provider Active Team Status: Active Member Role Status Dates Teri Aragon , DO Primary Care Provider Active Sima Wagner APRN Attending Provider Active Team Status: Inactive Member Role Status Dates Alton Espinoza DPM MS Attending Provider Active Geeta Dumont APRN ELECTRICAL PRODUCTS ENGINEER-C Primary Care Provider Active Team Status: Inactive Member Role Status Dates Teri Aragon DO Primary Care Provider Active Sima Wagner APRN Attending Provider Active Team Status: Active Member Role Status Dates Geeta Dumont APRN ELECTRICAL PRODUCTS ENGINEER-C Primary Care Provider Active Sindi Foster Jr, MD Attending Provider Active Team Status: Inactive Member Role Status Dates Geeta Dumont APRN ELECTRICAL PRODUCTS ENGINEER-C Primary Care Provider Active Sindi Foster Jr, [...] 08, 2023 End: February 10, 2023 Barry Cisneros MD Admit Provider Active Start: N rhiannon2022 End: February 10, 2023 Alla Schneider RN [...] Rodriguez MD Other Provider Active Start: N ov2022 End: February 10, 2023 Yeny Flores MD Other Provider Active Start: February 08, 2023 End: February 10, 2023 Ariane Ramsey MD Other Provider Active Start: N ovember 2022 End: February 10, 2023 Naomi Greenfield , [facility]- Other Provider Active Sta rt: February 08, 2023 End: February 10, 2023 Kelsea Yancey MD Other Provider Active Start: February 08, 2023 End: February 10, 2023 Mina Reilly MD Other Provider Active Start: N ov2022 End: February 10, 2023 Subhash Duckworth MD [...] February 18, 2023 End: February 18, 2023 Joana Farooq ELECTRICAL PRODUCTS ENGINEER-C Other Provider Active St art: February 18, [...] Member Role Status Dates Geeta Dumont APRN ELECTRICAL PRODUCTS ENGINEER-C Attending Provider Act boogie Start: March 05, 2023 End: March 05, 2023 Team Status: Inactive Member Role Status Dates Geeta Dumont APRN ELECTRICAL PRODUCTS ENGINEER-C Primary Care Provider, Attending Provider Active Start: March 07, 2023 End: March 07, 2023 Team Status: Inactive Member Role Status Dates Geeta Dumont APRN ELECTRICAL PRODUCTS ENGINEER-C Attending Provider Act boogie Start: March 20, 2023 End: March 20, 2023 Team Status: Inactive Member Role Status Dates Alton Espinoza DPM MS Attending Provider Active Start: March 20, 2023 End: March 20, 2023 Geeta Dumont APRN ELECTRICAL PRODUCTS ENGINEER-C Primary Care Provider Active Start: March 20, 2023 End: March 20, 2023 Team Status: Inactive Member Role Status Dates Alton Espinoza DPM MS Attending Provider Active Start: March 22, 2023 End: March 22, 2023 Geeta Dumont APRN ELECTRICAL PRODUCTS ENGINEER-C Primary Care Provider Active Start: March 22, 2023 End: March 22, 2023 Team Status: Inactive Member Role Status Dates Geeta Dumont APRN ELECTRICAL PRODUCTS ENGINEER-C Primary Care Provider Active Start: March End: March 27, 2023 Sindi Foster Jr, MD Attending Provider Active Start: March 27, 2023 End: March 27, 2023 Team Status: Inactive Member Role Status Dates Geeta Dumont APRN ELECTRICAL PRODUCTS ENGINEER-C Primary Care Provider, Attending Provider Active Start: April 04, 2023 End: April 04, 2023 Shovel Log Loader Operator Relationship Specialty Start Date End Date NetoTeri amezquita [address] [place] [address] PCP - General Family Medicine 02/08/23 Team Status: Inactive Member Role Status Dates Geeta Dumont APRN [employer] ENG[employer]C Primary Care Provider Active Start: March End: April 17, 2023 Mina Reilly MD Attending Provider Active Star t: April 17, 2023 End: April 17, 2023 Shovel Log Loader Operator Relationship Specialty Start Date End Date Geeta Dumont NP [address] [place] [address] PCP - General Family Medicine 10/24/22 Shovel Log Loader Operator Relationship Specialty Start Date End Date Geeta Dumont NP [address] [place] [address] PCP - General Family Medicine 10/24/22 Goals (unrecognized section and content) Goals may [...] BE BASED ON THE PRIMARY CLINICAL RECORDS. [employer] provides no warranty or guarantee of the accuracy or completeness of information in this document.
--- NOTE | 2023-04-29 09:46 | XR_ITS ---
The [address] [address] Patient Name: SANDRA POTTER MRN: [id number] date: 1955 Sex: M Assigned Patient Location: [facility] Current Patient Location: [facility] Accession/Order Number: [id number] Exam Date: 04/29/2023 09:40 Report Date: 04/29/2023 10:14 At the request of: ALBERTA TREADWELL Procedure: XR chest 2V EXAMINATION: XR chest 2V HISTORY: Preop exam COMPARISON: 11/07/2015 TECHNIQUE: PA and lateral FINDINGS: LUNGS: No significant pulmonary parenchymal abnormalities. VASCULATURE: No increased pulmonary vasculature. PLEURA: No pneumothorax, effusion, or pleural thickening. CARDIAC: No cardiomegaly or cardiac silhouette abnormality. MEDIASTINUM: No visible mass or adenopathy. Left pacemaker/AICD BONES: No fracture or visible bone lesion. OTHER: Negative. XR/XR chest 2V IMPRESSION: No acute cardiopulmonary process Electronically authenticated by: JODEE OCASIO Date: 04/29/2023 10:14
--- NOTE | 2023-04-29 10:02 | PM.PRESUREVA ---
History of Present Illness History of Present Illness Chief complaint: ulcer left foot, chronic osteomylitis left foot Narrative: Patient presents for preadmission testing. The patient reports a previous history of amputations of segments of his 1st and 2nd toes on the left foot. He states he has a chronic wound to his left great toe. The patient states he feels it is mostly healed over at this point and he has not had any drainage from the area. The patient has an extensive medical history including chronic obstructive pulmonary disease, coronary artery disease with stent placement, atrial fibrillation, pacemaker placement, hypertension, diabetes, and renal disease. Review of Systems ROS Narrative REVIEW OF SYSTEMS: Negative except as stated in HPI, ten or more systems reviewed. Constitutional: No fever , chills, weakness ENT: No sore throat or epistaxis Cardiovascular: No chest pain or palpitations, Chronic lower extremity edema, chronic dyspnea on exertion Respiratory: No cough, or wheezing; Chronic shortness of breath Gastrointestinal: No abdominal pain, constipation, diarrhea, or vomiting Genitourinary: No dysuria or hematuria Neurological: No numbness, tingling, weakness, or headache Psychiatric: No mood changes PFSH PFSH Medical History (Updated 04/29/23 @ 10:06 by Cynthia Altamirano NP) Lower extremity edema ?R60.0 - Localized edema (ICD-10) Deep vein thrombosis ?I82.409 - Acute embolism and thrombosis of unspecified deep veins of unspecified lower extremity (ICD-10) Depression ?F32.A - Depression, unspecified (ICD-10) Anxiety ?F41.9 - Anxiety disorder, unspecified (ICD-10) COVID-19 ?U07.1 - COVID-19 (ICD-10) Sleep apnea ?G47.30 - Sleep apnea, unspecified (ICD-10) Pneumonia ?J18.9 - Pneumonia, unspecified organism (ICD-10) GERD (gastroesophageal reflux disease) ?K21.9 - Gastro-esophageal reflux disease without esophagitis (ICD-10) Large B-cell lymphoma ?C85.10 - Unspecified B-cell lymphoma, unspecified site (ICD-10) Cardiomyopathy ?I42.9 - Cardiomyopathy, unspecified (ICD-10) Neck pain ?M54.2 - Cervicalgia (ICD-10) Hypercalcemia ?E83.52 - Hypercalcemia (ICD-10) Parathyroid abnormality ?E21.5 - Disorder of parathyroid gland, unspecified (ICD-10) Hypothyroidism ?E03.9 - Hypothyroidism, unspecified (ICD-10) Amputation toe ?S98.139A - Complete traumatic amputation of one unspecified lesser toe, initial encounter (ICD-10) Bowel obstruction ?K56.609 - Unspecified intestinal obstruction, unspecified as to partial versus complete obstruction (ICD-10) Hyperlipidemia ?E78.5 - Hyperlipidemia, unspecified (ICD-10) Hyperparathyroidism ?E21.3 - Hyperparathyroidism, unspecified (ICD-10) Hypertrophic cardiomyopathy ?I42.2 - Other hypertrophic cardiomyopathy (ICD-10) ASHD (arteriosclerotic heart disease) ?I25.10 - Atherosclerotic heart disease of [place] coronary artery without angina pectoris (ICD-10) Presence of Watchman left atrial appendage closure device ?Z95.818 - Presence of other cardiac implants and grafts (ICD-10) Sick sinus syndrome ?I49.5 - Sick sinus syndrome (ICD-10) CAD (coronary artery disease) ?I25.10 - Atherosclerotic heart disease of [place] coronary artery without angina pectoris (ICD-10) Chronic osteomyelitis of left foot ?M86.672 - Other chronic osteomyelitis, left ankle and foot (ICD-10) Ulcer of left foot with fat layer exposed ?L97.522 - Non-pressure chronic ulcer of other part of left foot with fat layer exposed (ICD-10) Atrial fibrillation ?I48.91 - Unspecified atrial fibrillation (ICD-10) Renal disease ?N28.9 - Disorder of kidney and ureter, unspecified (ICD-10) Diabetes ?E11.9 - Type 2 diabetes mellitus without complications (ICD-10) Hypertension ?I10 - Essential (primary) hypertension (ICD-10) Pacemaker ?Z95.0 - Presence of cardiac pacemaker (ICD-10) Surgical History (Updated 04/29/23 @ 10:00 by Cynthia Altamirano NP) History of surgical removal of skin lesion (~03/2023) ?Z98.890 - Other specified postprocedural states (ICD-10) ?Z87.2 - Personal history of diseases of the skin and subcutaneous tissue (ICD-10) History of colonoscopy ?Z98.890 - Other specified postprocedural states (ICD-10) History of hernia repair ?Z98.890 - Other specified postprocedural states (ICD-10) ?Z87.19 - Personal history of other diseases of the digestive system (ICD-10) History of hernia repair ?Z98.890 - Other specified postprocedural states (ICD-10) ?Z87.19 - Personal history of other diseases of the digestive system (ICD-10) H/O cardiac radiofrequency ablation ?Z98.890 - Other specified postprocedural states (ICD-10) History of bowel resection ?Z90.49 - Acquired absence of other specified parts of digestive tract (ICD-10) History of arthroscopy of knee ?Z98.890 - Other specified postprocedural states (ICD-10) S/P arterial stent ?Z95.9 - Presence of cardiac and vascular implant and graft, unspecified (ICD-10) Family History (Updated 04/29/23 @ 09:27 by Cynthia Altamirano NP) Other Dementia Family history of DVT Family history of diabetes mellitus Family history of heart disease Family history of hypertension Social History (Updated 04/29/23 @ 09:15 by Cynthia Altamirano NP) Within the past year, how often did you have a drink containing alcohol: never Score interpretation: A score less than 4 is consistent with normal alcohol consumption. Smoking status: Former smoker Non-prescribed substance use: denies use Highest level of school completed/degree received: high school graduate Meds Home Medications and Allergies Home Medications Medication Instructions Recorded Confirmed Type albuterol sulfate 90 mcg/actuation 2 puff inhalation Q4H PRN 04/29/23 04/29/23 History aerosol inhaler shortness of breath or wheezing allopurinol 300 mg tablet 300 mg PO DAILY 04/29/23 04/29/23 History aspirin 81 mg tablet,delayed 81 mg PO DAILY 04/29/23 04/29/23 History release (Adult Aspirin Regimen) atomoxetine 25 mg capsule 50 mg PO DAILY 04/29/23 04/29/23 History (Strattera) atorvastatin 20 mg tablet 20 mg PO DAILY 04/29/23 04/29/23 History biotin 10,000 mcg capsule mcg PO BID 04/29/23 History bumetanide 0.5 mg tablet 0.5 mg PO DAILY 04/29/23 04/29/23 History bumetanide 2 mg tablet 2 mg PO DAILY 04/29/23 04/29/23 History buspirone 10 mg tablet 10 mg PO TID 04/29/23 04/29/23 History cholecalciferol (vitamin D3) 50 50 mcg PO DAILY 04/29/23 04/29/23 History mcg (2,000 unit) capsule docusate sodium 250 mg capsule 250 mg PO DAILY 04/29/23 04/29/23 History (Stool Softener) fluoxetine 20 mg capsule 40 mg PO DAILY 04/29/23 04/29/23 History fluticasone propionate 50 2 spray intranasal Q12H 04/29/23 04/29/23 History mcg/actuation nasal spray,suspension gabapentin 600 mg tablet 1,200 mg PO Q12H 04/29/23 04/29/23 History glipizide 2.5 mg tablet, extended 2.5 mg PO BID 04/29/23 04/29/23 History release 24 hr levothyroxine 25 mcg tablet 25 mcg PO DAILY 04/29/23 04/29/23 History (Synthroid) magnesium 250 mg tablet 500 mg PO BID 04/29/23 04/29/23 History omeprazole 40 mg capsule,delayed 40 mg PO BID 04/29/23 04/29/23 History release potassium chloride 20 mEq See Rx Instructions PO .COMPLEX 04/29/23 04/29/23 History tablet,extended release(part/cryst) (Klor-Con M) ropinirole 1 mg tablet 1 mg PO QPM 04/29/23 04/29/23 History spironolactone 25 mg tablet 25 mg PO BID 04/29/23 04/29/23 History thiamine HCl (vitamin B1) 100 mg 100 mg PO DAILY 04/29/23 04/29/23 History tablet tizanidine 4 mg tablet 4 mg PO TID 04/29/23 04/29/23 History tramadol 50 mg tablet 100 mg PO Q8H 04/29/23 04/29/23 History trazodone 50 mg tablet 100 mg PO QPM PRN sleep 04/29/23 04/29/23 History Allergies Allergy/AdvReac Type Severity Reaction Status Date / Time diltiazem Allergy tachycardia Verified 04/29/23 09:13 lisinopril Allergy angioedema Verified 04/29/23 09:13 morphine Allergy tachycardia Verified 04/29/23 09:13 Exam Narrative Exam Narrative: Constitutional: Awake, alert, comfortable, well-appearing, nontoxic, interactive, vital signs as charted Head: Normocephalic, atraumatic Neck: Supple, normal appearance, normal range of motion, no meningeal signs, no lymphadenopathy Respiratory: No respiratory distress, breath sounds clear Cardiovascular: Regular rate and rhythm, strong and regular heart tones Neuro: No neurological deficits, normal sensation Psychiatric: Oriented ?3, normal affect Assessment and Plan Assessment and Plan (1) Ulcer of left foot with fat layer exposed: (2) Chronic osteomyelitis of left foot: Plan Left hallux amputation with sesamoidectomy scheduled with Dr. Espinoza 05/09/2023.
[2023-04-29 10:25] LABS: Anion Gap 10.9; BUN Creatinine Ratio 20.9; Calcium 11.1 mg/dL (8.5-10.1); Carbon Dioxide 31.5 mmol/L (21.0-32.0); Chloride 100 mmol/L (98-107); Estimated GFR (African America 54 (>=60); Estimated GFR (Non-African Ame 44 (>=60); Glucose 188 mg/dL (74-106); Potassium 4.4 mmol/L (3.5-5.1); Sodium 138 mmol/L (136-145)
[2023-04-29 10:36] LABS: Basophils Percent Auto 0.5 % (0.2-2.0); Eosinophils Absolute Auto 0.3 10^3/uL (0.0-0.7); Eosinophils Percent Auto 4.2 % (0.9-7.0); Hematocrit 43.9 % (42.0-54.0); Hemoglobin 13.6 g/dL (14.0-18.0); Immature Granulocytes Abs Auto 0.04 10^3/uL (0.00-0.03); Immature Granulocytes Pct Auto 0.7 % (0.0-0.5); Lymphocytes Absolute Auto 0.7 10^3/uL (1.2-3.8); Lymphocytes Percent Auto 12.2 % (20.5-60.0); Mean Corpuscular Hemoglobin 26.3 pg (25.9-34.0); Mean Corpuscular Volume 84.9 fL (80.0-94.0); Mean Platelet Volume 8.8 fL (9.5-13.5); Monocytes Absolute Auto 0.6 10^3/uL (0.3-0.8); Monocytes Percent Auto 10.3 % (1.7-12.0); Neutrophils Absolute Auto 4.3 10^3/uL (1.4-6.5); Neutrophils Percent Auto 72.1 % (43.0-75.0); Platelet Count 204 10^3/uL (150-450); Red Blood Count 5.17 10^6/uL (4.70-6.10); Red Cell Distribution Width 14.6 % (11.0-15.0); White Blood Count 5.9 10^3/uL (4.0-11.0)
[2023-04-29 10:45] LABS: INR 0.96; Partial Thromboplastin Time 28.5 sec (22.3-36.2); Prothrombin Time 10.2 sec (9.0-11.6)
== END 2023-04-29 08:40 | disposition home or self-care (01) ==
LOC: PST 08:41
PROVIDERS: PCP Podiatrist Foot & Ankle Surgery; Visit Provider Podiatrist Foot & Ankle Surgery
DX: Z01.810 Encounter for preprocedural cardiovascular examination (principal); Z01.812 Encounter for preprocedural laboratory examination; Z01.818 Encounter for other preprocedural examination; L97.522 Non-pressure chronic ulcer of other part of left foot with fat layer exposed; M86.672 Other chronic osteomyelitis, left ankle and foot
CPT/HCPCS: 71046; 80048; 85025; 85610; 85730; G0463

== ENCOUNTER 2023-05-13 07:45 | Day surgery (SDC) | payer OTHER, SELFPAY ==
--- OUTSIDE RECORDS SUMMARY | 2023-04-29 08:51 | XMS_ITS | CCD ---
Author Name Unknown Address [address] [place] [address] Organization [facility] Care Team Providers Care Jewel Supervisor Name Role Phone MARTÍNEZ, ESSENCE Unavailable Unavailable FRANCISCO LI Unavailable Unavailable MARTÍNEZ, ESSENCE Unavailable Unavailable MARTÍNEZ, ESSENCE Unavailable Unavailable FRANCISCO LI Unavailable Unavailable PAULA FAJARDO Unavailable Unavailabl e FRANCISCO LI Unavailable Unavailable MARTÍNEZ, ESSENCE Unavailable Unavailable MARTÍNEZ, ESSENCE Unavailable Unavailable FRANCISOC LI Unavailable Unavailable Francisco Li Primary Care Provider Brendan Bolaños Attending Provider Russell Li MD Primary Care Provider [phone] JUSTIN RAO Referring Unavailable RUSSELL LI Primary Care Unavailable Russell Li MD Primary Care Provider [phone] AVASTHI, ULISSES Admitting Unavailable AVASTHI, ULISSES Attending Unavailable GUILLERMORUSSELL Primary Care Unavailable AVASTHI, MARGARET Referring Unavailable RUSSELL LI Primary Care Unavailable AVASTHI, ULISSES Admitting Unavailable AVASTHI, ULISSES Attending Unavailable AVASTHI, MARGARET Referring Unavailable GUILLERMORUSSELL Primary Care Unavailable Francisco Li Unavailable Francisco Li Unavailable Francisco Garcia Unavailable Unavailable Viridiana Burgess Unavailable Unavailable Unavailable Russell Li MD Primary Care Provider [phone] Geeta Dumont Unavailable [phone] None, No PCP Unavailable Unavailable Unavailable Unavailable Russell Li MD Primary Care Provider RUSSELL LI Primary Care Unavailable DEVIMAURO Contreras S Referring Unavailable MAURO RANKIN S Referring Unavailable RUSSELL LI Primary Care Unavailable DO Francisco Li Primary Care Provider [phone] GOLDEN Dumont Attending Provider DREW Farooq Attending [...] Care Provider FILIPE Begum Attending Provider [phone] Criselda Renee Attending Unavailable Francisco Li Primary Care Unavailable TERI ARAGON Primary Care Unavailable JACK ALEMAN Attending Unavailable JACK ALEMAN Admitting Unavailable Geeta Dumont Attending Unavailable Geeta Dumont Admitting Unavailable TERI ARAGON Primary Care Unavailable DREW Farooq Attending Provider NO FAMILY, PHYSICIAN Primary Care Provider Unava MD Shirley Zimmerman Attending Provider DO Teri Aragon Primary Care Provider GOLDEN Wagner Attending Provider [phone] GOLDEN Dumont Primary Care Provider Dario Bolden Primary Care Physician NO FAMILY, PHYSICIAN Primary Care Provider UnaGOLDEN Mejia Attending Provider Teri Aragon Unavailable GOLDEN Dumont Primary Care Provider GOLDEN Dumont Attending Provider DREW Farooq Attending Provider DO Stephanie Burgess Referring Provider GOLDEN Dumont Primary Care Provider MD Arron Valverde Attending Provider [phone] FILIPE Bolden Attending Provider Unavailable Unavailable MD Lavon Sandoval Attending Provider Lavon Sandoval Unavailable GOLDEN Dumont Primary Care Provider DREW Farooq Attending Provider DO Stephanie Burgess Referring Provider MD Arron Valverde Attending Provider FILIPE Bolden Attending Provider MD Lavon Sandoval Attending Provider [phone] Viridiana Burgess Attending Dr[address] Teri Mrar Primary Care U navailGOLDEN Hargrove Primary Care Provider GOLDEN Dumont Primary Care Provider MD Lavon Sandoval Attending Provider [phone] GOLDEN Dumont Attending Provider [phone] GOLDEN Dumont Primary Care Provider MD Lavon Sandoval Attending Provider [phone] MD Sabino Ding Attending Provider [phone] DO Stephanie Burgess Attending Provider Sabino Ding [...] Care Provider GOLDEN Dumont Attending Provider [phone] NON STAFF Attending Provider Unavailable Ingris Lombardo Unavailable GOLDEN Dumont Primary Care Provider GOLDEN Dumont Attending Provider GOLDEN Del Rosario Attending Provider DO Sandra Danielson II Attending Provider DO Teri Aragon Primary Care Provider DO Stephanie Burgess Attending Provider Timmis, Sindi H Referring Unavailable Timmis, Sindi H Attending Unavailable Adenikemis, Sindi H Admitting Unavailable Dario Bolden Attending Unavailable Dario Bolden Admitting Unavailable NON STAFF Primary Care Provider UnavailMD Teri King Attending Provider GOLDEN Del Rosario Attending Provider DO Sandra Danielson II Attending Provider DO Teri Aragon Primary Care Provider DO Stephanie Burgess Attending Provider MD Sindi Foster Jr Attending Provider Emerald FILIPE Bailey Attending Provider DO Bobby Bernabe Emergency Provider [phone] MD Barry Cisneros Admit Provider MD Barry Cisneros Attending Provider [phone] ADELINA Schneider Other Provider Unavailable DO Stephanie Burgess Other Provider MD Elroy Werner Other Provider MD Viridiana Thompson Other Provider MD Deanne Gaxiola Other Provider MD Garry Rivera Other Provider GOLDEN Melchor Other Provider MD Rosemary Rodriguez Other Provider MD [facility] Other Provider MD Ariane Ramsey Other Provider Jean Pierre [facility] Naomi Garrett Other Provider MD Kelsea [...] MD Ariane Ramsey Other Provider Jean Pierre [facility]- Naomi Garrett Other Provider MD Kelsea Yancey Other Provider [phone] MD Mina Reilly Other Provider MD [...] Attending Provider MD Mina Herrera Attending Provider [phone] TERI ARAGON Primary Care Unava ilVIRIDIANA Wu Attending Unavailable TERI ARAGON CHARLIE Primary Care Unava ilable TOMYS, SINDI H [...] CharissarbacherDenaGeeta Admitting Unavailable Derekacher, Geeta Attending Unavailable [facility], [facility] Care Unavailable [facility] Care Unavailable Sima Wagner Attending Unavailable Sima Wagner Admitting Unavailable Derekacher, [facility] Primary Care Unavailable Lavon Sandoval Admitting Unavailable Lavon Sandoval Attending Unavailable [facility] Care Unavailable Trabmarco antoniossi, Mourhaf Admitting Unavailable Trabnuria Mourhaf Attending Unavailable [facility] Care Unavailable Adamowicz II, Sandra J Admitting Unavaila ble Adamowicz II, Sandra J Attending Unavaila ble [facility] Unavailable Lavon Sandoval Attending Unavailable Lavon Sandoval Admitting Unavailable [facility] Care Unavailable Polly Velasquez Attending Unavailable Alla Schneider Consulting Unavailable Polly Velasquez Admitting Unavailable Stephanie Burgess Consulting Unavailable Elroy Werner Consulting Unavailable Viridiana Thompson Consulting Unavail able Trabnuria, Mourhaf Consulting Unavailable Garry Rivera Consulting Unavailab Shameka Bo Consulting Unavailable Rosemary Rodriguez Consulting Unavailable Yeny Flores Consulting Unavailab Ariane Be Consulting Unavailable Naomi Greenfield Consulting Unavailable Kelsea Yancey Consulting Unavailable Derekacher, [facility] Primary Care Unavailable Lavon Sandoval Admitting Unavailable Lavon Sandoval Attending Unavailable Rohrbacher, Geeta Primary Care Unavailable Rohrbacher, Geeta Admitting Unavailable Rohrbacher, Geeta Attending Unavailable Highlander, [...] Allergy 0 Other (See Comments), Swelling, Anaphylaxis [facility] Calcium Channel Blockers (4 sources) dilTIAZem Drug Allergy 0 Itching, Other (See Comments), Palpitations [facility] Opioid Agonists (4 sources) Morphine Drug Allergy 1 Other (See Comments), Palpitations [facility] (20 sources) dilTIAZem; Translations: [diltiazem] Drug Allergy 0 Itching, Other (See Comments), Palpitations, Unknown [facility] (20 sources) Lisinopril; Translations: [lisinopril] Drug Allergy 0 hives, Other (See Comments), Swelling, Anaphylaxis [facility] (20 sources) Morphine; Translations: [morphine] Drug Allergy 1 hives, Other (See Comments), Palpitations, Unknown [facility] (20 sources) Angiotensin Converting Enzyme (Nubia) Inhibitors; Translations: [NUBIA Inhibitors] Allergy to drug (finding) 3 Unknown [facility] [email or web address] [address] [place] Work Phone: (20 sources) Morphine Derivatives; Translations: [Morphine Derivatives] Allergy to drug (finding) [facility] [address] [place] Work Phone: (1 source) Angiotensin-conv erting enzyme inhibitor agent Drug Allergy 3 Unknown [facility] Medications Current Medications Medication Drug Class(es) Dates [...] Agonist Start: 12-07-2022 End: 04-24-2023 HYDROcodone-acetami nophen ([place]) 5-325 MG tablet Start: 09-24-2021 End: 11-10-2021 [...] February 15, 2017 April 21, 2017 8:28am [id number] 200 actuat albuterol 0.09 mg/actuat metered dose [...] oral tablet (20 sources) Start: 11-27-2022 take 95538 ug by mouth once daily Biotin Active 33152 MCG PO Daily November 26, 2022 11:00pm take 1 tablet by mouth in the mo rning biotin 15295 MCG tablet Take 1 tablet by mouth in the morning and 1 tablet before bedtime. 0 Active take 1 tablet by mouth twice nadia ly Biotin 87112 MCG 1 tablet Orally TWICE A DAY Active take 1 tablet by mouth once elisabet y Biotin 00317 MCG 1 tablet Orally Once a day [...] Start: 09-20-2021 take 4000 [IU] by mo [facility] once daily Cholecalciferol (Vitamin D3) Active 4000 UNIT PO Daily September 19, 2021 11:00pm Start: 09-20-2021 take 4000 [IU] by mo [facility] once daily Cholecalciferol (Vitamin D3) Active 4000 UNIT PO Daily September 19, 2021 11:00pm cholecalciferol (Vitamin D-3) 50 MCG (2000 UT) capsule Take 1 capsule by mouth. 0 Active take 1 tablet by fiot th once daily cholecalciferol (Vitamin D-3) 25 [...] Active Start: 01-01-2022 take 1 tablet by [facility] every twenty-four hours diazePAM 5 MG 1 tablet as needed Orally Once a day for 1 days Dec, Not-Taking docusate sodium 50 mg / sennosides, [facility] 8.6 mg oral tablet (8 sources) Start: [...] Active Start: 03-05-2023 take 1 capsule by [facility] every twenty-four hours FLUoxetine HCl 10 MG 1 capsule Orally Once a day for 30 days Feb, Active take 1 capsule by [facility] every twenty-four hours FLUoxetine HCl 20 MG [...] (20 sources) take 2 tablets by mo [facility] twice daily Magnesium 250 MG 2 tablet [...] 23, 2016 11:00pm take 1 tablet by [facility] once daily magnesium oxide 400 mg (241.3 [...] was confirmed w/ the patient. Prescribed per wire stripper Dr. Burgess in [place]. 0 Active Potassium Chlori de Active potassium [...] sources) Coronary atherosclerosis; Translations: [Coronary atherosclerosis of [place] coronary artery] Onset: 3 02-13-2023 Chronic Coronary [...] sources) Taking high risk medication; Translations: [Other longterm (current) drug therapy] Onset: 3 02-20-2023 Episodic [...] / I42.1(ICD-9) Onset: 8 Unclassified (1 source) roasterman (current) use of aspirin / Z79.82(ICD-9) Onset: 8 Unclassified (1 source) Palpitations / R00.2(ICD-9) Onset: 7 Unclassified (1 source) Shortness of breath / R06.02(ICD-9) Onset: 7 Unclassified (1 source) Hypertensive heart disease with heart failure / I11.0(ICD-9) Onset: 8 Unclassified (1 source) Athscl heart disease of [place] coronary artery w/o ang pctrs / I25.10(ICD-9) [...] / Z87.891(ICD-9) Onset: 8 Unclassified (1 source) nursing home (current) use of anticoagulants / Z79.01(ICD-9) Onset: [...] Aldosteroneon 04-17-2023 Aldosterone 21.5 ng/dL Normal 0.0-30.0 [facility] Comment on above: Order Comment: Patie nt Posture before Draw (see Test/Proc Notes):: SITTING Result Comment: This test was developed and its performance characteristics determined by [facility]. It has not been cleared or approved by the Food and Drug Administration. Performed at: [address] [id number] [employer]: Wander Ramsay MD, Phone: [phone] BY:[facility] [place], [place] [id number] MEDICAL DIRECTORAPRIL VEGA M.D. Performed By: #### B MP ####[facility] [place] [address] [facility]#### ALD, RENACT ####[facility] , Basic Metabolic Panelon 03-20 Anion gap [Moles/Vol] 12.1 mmol/L Normal 6.0-15.0 [facility] Comment on above: Performed By: #### B MP ####[address] [place] [address] [place]#### ALD, RENACT ####[facility] , Calcium [Mass/Vol] 11.6 mg/dL High 8.6-10.3 [facility] Comment on above: Result Comment: PERF ORMED BY:[address] [place], [place] [id number] MEDICAL DIRECTORAPRIL VEGA M.D. Performed By: #### B MP ####[address]#### ALD, RENACT ####[facility] , Chloride [Moles/Vol] 101 mmol/L Normal 98-107 [facility] Comment on above: Performed By: #### B MP ####[place] [address] [place]#### ALD, RENACT ####[facility] , CO2 [Moles/Vol] 31.4 mmol/L High 21.0-31.0 [facility] Comment on above: Performed By: #### B MP ####[address]#### ALD, RENACT ####[facility] , Creatinine [Mass/Vol] 1.38 mg/dL High 0.70-1.30 [facility] Comment on above: Performed By: #### B MP ####[place] [address] [place]#### ALD, RENACT ####[facility] , GFR/1.73 sq M.predicted MDRD (S/P/Bld) [Vol rate/Area] 56.749 mL/min/{1.73_m2} [facility] Comment on above: Performed By: #### B MP ####[facility] [place] [address] [place]#### ALD, RENACT ####[facility] , Glucose [Mass/Vol] 123 mg/dL High 70-100 [facility] Comment on above: Result Comment: [place] Glucose Reference Range is dependent on time and content of last meal. Glucose of more than 200 mg/dL in a nonstressed, ambulatory subject supports the diagnosis of Diabetes Mellitus. ADA recommended reference range Performed By: #### B MP ####[address] [place] [address] [place]#### ALD, RENACT ####[facility] , Potassium [Moles/Vol] 4.5 mmol/L Normal 3.5-5.1 [facility] Comment on above: Performed By: #### B MP ####[address] [place] [address] [place]#### ALD, RENACT ####[facility] , Sodium [Moles/Vol] 140 mmol/L Normal 136-145 [facility] Comment on above: Performed By: #### B MP ####[facility] [place] [address] [place]#### ALD, RENACT ####[facility] , Urea nitrogen [Mass/Vol] 26 mg/dL High 7-25 [facility] Comment on above: Performed By: #### B MP ####[place] [address] [place]#### ALD, RENACT ####[facility] , Calcium [Mass/volume] in Ser um or PlasmaOrdered By: Mina Reilly on 04-17-2023 Calcium [Mass/Vol] 11.6 mg/dL 8.6-10.3 [facility] Carbon dioxide, total [Moles /volume] in Serum or PlasmaOrdered By: Mina Reilly on 04-17-2023 CO2 [Moles/Vol] 31.4 mmol/L 21.0-31.0 [facility] Chloride [Moles/volume] in S [place] or PlasmaOrdered By: Mina Reilly on 04-17-2023 Chloride [Moles/Vol] 101 mmol/L 98-107 [facility] Creatinine [Mass/volume] in Serum or PlasmaOrdered By: Mina Reilly on 04-17-2023 Creatinine [Mass/Vol] 1.38 mg/dL 0.70-1.30 [facility] ECG 12 Leadon 04-17-2023 Atrial fibrillation at a controlled rate, right bundle branch block, anterior and lateral T wave inversions, consider ischemia versus LVH. [facility] Work Phone: Glucose [Mass/volume] in Ser um or PlasmaOrdered By: Mina Reilly on 04-17-2023 Glucose [Mass/Vol] 123 mg/dL 70-100 [facility] Comment on above: ADA recommended refe rence rangeRandom Glucose Reference Range is dependent on time and content of last meal. Glucose of more than 200 mg/dL in a nonstressed, ambulatory subject supports the diagnosis of Diabetes Mellitus. No Panel InformationOrdered By: Mina Reilly on 04-17-2023 Estimated GFR (CKD-EPI) 56.749 mL/Min [facility] Creatinine Clearance (Chem N/A [facility] Potassium [Moles/volume] in Serum or PlasmaOrdered By: Mina Reilly on 04-17-2023 Potassium [Moles/Vol] 4.5 mmol/L 3.5-5.1 [facility] Renin Activityon 04-17-2023 Renin Activity 2.367 Normal 0.167-5.38 0 [facility] Comment on above: Order Comment: Patie nt Posture before Draw (see Test/Proc Notes):: SITTING Result Comment: This test was developed and its performance characteristics determined by [facility]. It has not been cleared or approved by the Food and Drug Administration. Performed at: [address] [id number] [employer]: Wander Ramsay MD, Phone: [phone] BY:[facility] [place], [place] [phone] MEDICAL DIRECTORAPRIL VEGA M.D. Performed By: #### B ####[facility] [place] [address] [facility]#### ALD, RENACT ####[facility] , Serum or plasma anion gap de terminationOrdered By: Mina Reilly on 04-17-2023 Anion gap [Moles/Vol] 12.1 mmol/L 6.0-15.0 [facility] Sodium [Moles/volume] in Ser um or PlasmaOrdered By: Mina Reilly on 04-17-2023 Sodium [Moles/Vol] 140 mmol/L 136-145 [facility] Urea nitrogen [Mass/volume] in Serum or PlasmaOrdered By: Mina Reilly on 04-17-2023 Urea nitrogen [Mass/Vol] 26 mg/dL 7- [facility] Alanine aminotransferase [En zymatic activity/volume] in Serum or PlasmaOrdered By: Geeta Dumont on 04-04-2023 ALT [Catalytic activity/Vol] 16 U/L 7-52 [facility] Albumin [Mass/volume] in Ser um or Plasma by Bromocresol green (BCG) dye binding methoOrdered By: Geeta Dumont on 04-04-2023 Albumin BCG dye [Mass/Vol] 4.6 g/dL 3.5-5.7 [facility] Alkaline phosphatase [Enzyma tic activity/volume] in Serum or PlasmaOrdered By: Geeta Dumont on 04-04-2023 ALP [Catalytic activity/Vol] 112 U/L 34-104 [facility] Aspartate aminotransferase [ Enzymatic activity/volume] in Serum or PlasmaOrdered By: Geeta Dumont on 04-04-2023 AST [Catalytic activity/Vol] 22 U/L 13-39 [facility] Bilirubin.total [Mass/volume ] in Serum or PlasmaOrdered By: Geeta Dumont on 04-04-2023 Bilirubin [Mass/Vol] 0.7 mg/dL 0.3-1.0 [facility] Calcium [Mass/volume] in Ser um or PlasmaOrdered By: Geeta Dumont on 04-04-2023 Calcium [Mass/Vol] 11.2 mg/dL 8.6-10.3 [facility] Carbon dioxide, total [Moles /volume] in Serum or PlasmaOrdered By: Geeta Dumont on 04-04-2023 CO2 [Moles/Vol] 30.5 mmol/L 21.0-31.0 [facility] Chloride [Moles/volume] in S elimra or PlasmaOrdered By: Geeta Dumont on 04-04-2023 Chloride [Moles/Vol] 102 mmol/L 98-107 [facility] Comprehensive Metabolic Pane anny 04-04-2023 Albumin [Mass/Vol] 4.6 g/dL Normal 3.5-5.7 [facility] Comment on above: Order Comment: Reaso n for Exam Chronic kidney disease, stage 3a Performed By: #### C MP ####[place] [address] [id number] [facility] Albumin/Globulin [Mass ratio] 1.6 {ratio} Normal [facility] Comment on above: Order Comment: Reaso n for Exam Chronic kidney disease, stage 3a Performed By: #### C MP ####[address] [address] [facility] ALP [Catalytic activity/Vol] 112 U/L High 34-104 [facility] Comment on above: Order Comment: Reaso n for Exam Chronic kidney disease, stage 3a Result Comment: PERF ORMED BY:[address] [place], [place] [id number] MEDICAL DIRECTORAPRIL VEGA M.D. Performed By: #### C MP ####[address] [address] [facility] ALT [Catalytic activity/Vol] 16 U/L Normal 7-52 [facility] Comment on above: Order Comment: Reaso n for Exam Chronic kidney disease, stage 3a Performed By: #### C MP ####[address] [address] [facility] Anion gap [Moles/Vol] 10.0 mmol/L Normal 6.0-15.0 [facility] Comment on above: Order Comment: Reaso n for Exam Chronic kidney disease, stage 3a Performed By: #### C MP ####[address] [address] [facility] AST [Catalytic activity/Vol] 22 U/L Normal 13-39 [facility] Comment on above: Order Comment: Reaso n for Exam Chronic kidney disease, stage 3a Performed By: #### C MP ####[address] [address] [facility] Bilirubin [Mass/Vol] 0.7 mg/dL Normal 0.3-1.0 [facility] Comment on above: Order Comment: Reaso n for Exam Chronic kidney disease, stage 3a Performed By: #### C MP ####[address] [address] [facility] Calcium [Mass/Vol] 11.2 mg/dL High 8.6-10.3 [facility] Comment on above: Order Comment: Reaso n for Exam Chronic kidney disease, stage 3a Performed By: #### C MP ####[address] [address] [facility] Chloride [Moles/Vol] 102 mmol/L Normal 98-107 [facility] Comment on above: Order Comment: Reaso n for Exam Chronic kidney disease, stage 3a Performed By: #### C MP ####[address] [address] [facility] CO2 [Moles/Vol] 30.5 mmol/L Normal 21.0-31.0 [facility] Comment on above: Order Comment: Reaso n for Exam Chronic kidney disease, stage 3a Performed By: #### C MP ####[address] [address] [facility] Creatinine [Mass/Vol] 1.49 mg/dL High 0.70-1.30 [facility] Comment on above: Order Comment: Reaso n for Exam Chronic kidney disease, stage 3a Performed By: #### C MP ####[address] [address] [facility] GFR/1.73 sq M.predicted MDRD (S/P/Bld) [Vol rate/Area] 51.759 mL/min/{1.73_m2} [facility] Comment on above: Order Comment: Reaso n for Exam Chronic kidney disease, stage 3a Performed By: #### C MP ####[place] [id number] [facility] Globulin (S) [Mass/Vol] 2.8 g/dL [facility] Comment on above: Order Comment: Reaso n for Exam Chronic kidney disease, stage 3a Performed By: #### C MP ####[id number] [facility] Glucose [Mass/Vol] 169 mg/dL High 70-100 [facility] Comment on above: Order Comment: Reaso n for Exam Chronic kidney disease, stage 3a Result Comment: [facility] Glucose Reference Range is dependent on time and content of last meal. Glucose of more than 200 mg/dL in a nonstressed, ambulatory subject supports the diagnosis of Diabetes Mellitus. ADA recommended reference range Performed By: #### C MP ####[place] [id number] [facility] Potassium [Moles/Vol] 4.5 mmol/L Normal 3.5-5.1 [facility] Comment on above: Order Comment: Reaso n for Exam Chronic kidney disease, stage 3a Performed By: #### C MP ####[place] [address] [id number] [facility] Protein [Mass/Vol] 7.4 g/dL Normal 6.4-8.9 [facility] Comment on above: Order Comment: Reaso n for Exam Chronic kidney disease, stage 3a Performed By: #### C MP ####[place] [id number] [facility] Sodium [Moles/Vol] 138 mmol/L Normal 136-145 [facility] Comment on above: Order Comment: Reaso n for Exam Chronic kidney disease, stage 3a Performed By: #### C MP ####[facility] [address] [place] [address] [place] Urea nitrogen [Mass/Vol] 31 mg/dL High 7-25 [facility] Comment on above: Order Comment: Reaso n for Exam Chronic kidney disease, stage 3a Performed By: #### C MP ####[facility] [address] [place] [id number] [facility] Creatinine [Mass/volume] in Serum or PlasmaOrdered By: Geeta Dumont on 04-04-2023 Creatinine [Mass/Vol] 1.49 mg/dL 0.70-1.30 [facility] Globulin Calc (S) [Mass/Vol] Ordered By: Geeta Dumont on 04-04-2023 Globulin (S) [Mass/Vol] 2.8 g/dL [facility] Glucose [Mass/volume] in Ser um or PlasmaOrdered By: Geeta Dumont on 04-04-2023 Glucose [Mass/Vol] 169 mg/dL 70-100 [facility] Comment on above: ADA recommended refe rence rangeRandom Glucose Reference Range is dependent on time and content of last meal. Glucose of more than 200 mg/dL in a nonstressed, ambulatory subject supports the diagnosis of Diabetes Mellitus. No Panel InformationOrdered By: Geeta Dumont on 04-04-2023 Estimated GFR (CKD-EPI) 51.759 mL/Min [facility] Creatinine Clearance (Chem N/A [facility] Potassium [Moles/volume] in Serum or PlasmaOrdered By: Geeta Dumont on 04-04-2023 Potassium [Moles/Vol] 4.5 mmol/L 3.5-5.1 [facility] Protein [Mass/volume] in Ser um or PlasmaOrdered By: Geeta Dumont on 04-04-2023 Protein [Mass/Vol] 7.4 g/dL 6.4-8.9 [facility] Serum or plasma albumin/glob ulin mass ratioOrdered By: Geeta Dumont on 04-04-2023 Albumin/Globulin [Mass ratio] 1.6 {ratio} [facility] Serum or plasma anion gap de terminationOrdered By: Geeta Dumont on 04-04-2023 Anion gap [Moles/Vol] 10.0 mmol/L 6.0-15.0 [facility] Sodium [Moles/volume] in Ser um or PlasmaOrdered By: Geeta Dumont on 04-04-2023 Sodium [Moles/Vol] 138 mmol/L 136-145 [facility] Urea nitrogen [Mass/volume] in Serum or PlasmaOrdered By: Geeta Dumont on 04-04-2023 Urea nitrogen [Mass/Vol] 31 mg/dL 7 [facility] US arterial pvr rest Tayo US arterial pvr rest LE Normal [facility] MR foot LT wo conon 03-20-19 MR foot LT wo con Normal [facility] XR pre/post mri xrayon 03-20 XR pre/post mri xray Normal [facility] A1C with Estimated Average G luon 03-07-2023 Glucose [Mass/Vol] 180 mg/dL Normal [facility] Comment on above: Order Comment: 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 Result Comment: Incr eased risk for diabetes: 5.7 - 6.4 diabetes: >6.4 glycemic control for adults with diabetes: <7.0 Performed By: #### C BC, LIPID, A1C [facility] eA, CMP ####[place] [id number] [place] [phone] [facility] Alanine aminotransferase [En zymatic activity/volume] in Serum or PlasmaOrdered By: Geeta Dumont on 03-07-2023 ALT [Catalytic activity/Vol] 17 U/L 7-52 [facility] Albumin [Mass/volume] in Ser um or Plasma by Bromocresol green (BCG) dye binding methoOrdered By: Geeta Dumont on 03-07-2023 Albumin BCG dye [Mass/Vol] 4.3 g/dL 3.5-5.7 [facility] Alkaline phosphatase [Enzyma tic activity/volume] in Serum or PlasmaOrdered By: Geeta Dumont on 03-07-2023 ALP [Catalytic activity/Vol] 119 U/L 34-104 [facility] Aspartate aminotransferase [ Enzymatic activity/volume] in Serum or PlasmaOrdered By: Geeta Dumont on 03-07-2023 AST [Catalytic activity/Vol] 22 U/L 13-39 [facility] Basophils Auto (Bld) [#/Vol] Ordered By: Geeta Dumont on 03-07-2023 Basophils (Bld) [#/Vol] 0.1 10*3/uL 0.0-0.2 [facility] Basophils/100 WBC Auto (Bld) Ordered By: Geeta Dumont on 03-07-2023 Basophils/100 WBC (Bld) 0.9 % . [facility] Bilirubin.total [Mass/volume ] in Serum or PlasmaOrdered By: Geeta Dumont on 03-07-2023 Bilirubin [Mass/Vol] 0.7 mg/dL 0.3-1.0 [facility] Calcium [Mass/volume] in Ser um or PlasmaOrdered By: Geeta Dumont on 03-07-2023 Calcium [Mass/Vol] 11.2 mg/dL 8.6-10.3 [facility] Carbon dioxide, total [Moles /volume] in Serum or PlasmaOrdered By: Geeta Dumont on 03-07-2023 CO2 [Moles/Vol] 28.3 mmol/L 21.0-31.0 [facility] Chloride [Moles/volume] in S [place] or PlasmaOrdered By: Geeta Dumont on 03-07-2023 Chloride [Moles/Vol] 103 mmol/L 98-107 [facility] Cholesterol [Mass/volume] in Serum or PlasmaOrdered By: Geeta Dumont on 03-07-2023 Cholesterol [Mass/Vol] 148 mg/dL 140-200 [facility] Comment on above: Chol less than 200 m g/dl low riskChol 201-239 mg/dl borderline riskChol 240 mg/dl and greater high risk Cholesterol in LDL Calc [Mas s/Vol]Ordered By: Geeta Dumont on 03-07-2023 Cholesterol in LDL [Mass/Vol] 76 mg/dL 0-100 [facility] Comment on above: LDL ATP III CLASSIFI CATIONLDL less than 100 mg/dL OptimalLDL 100-129 mg/dL Near or above optimalLDL 130-159 mg/dL Borderline highLDL 160-189 mg/dL HighLDL greater than 189 mg/dL Very high Cholesterol in VLDL Calc [Ma ss/Vol]Ordered By: Geeta Dumont on 03-07-2023 Cholesterol in VLDL [Mass/Vol] 29 mg/dL [facility] Complete Blood Count Auto Di ffon 03-07-2023 Basophils (Bld) [#/Vol] 0.1 10*3/uL Normal 0.0-0.2 [facility] Comment on above: Order Comment: Reaso n for Exam Electrolyte and fluid disorder;Chronic kidney disease, stage Result Comment: PERF ORMED BY:[address] [place], [place] [phone] MEDICAL DIRECTORAPRIL VEGA M.D. Performed By: #### C BC, LIPID, A1C [facility] eA, CMP ####[facility] [address] [place] [address] [place] Basophils/100 WBC (Bld) 0.9 % Normal . [facility] Comment on above: Order Comment: Reaso n for Exam Electrolyte and fluid disorder;Chronic kidney disease, stage Performed By: #### C BC, LIPID, A1C [facility] eA, CMP ####[facility] [place] [address] [place] Eosinophils (Bld) [#/Vol] 0.5 10*3/uL High 0.0-0.45 [facility] Comment on above: Order Comment: Reaso n for Exam Electrolyte and fluid disorder;Chronic kidney disease, stage Performed By: #### C BC, LIPID, A1C [facility] e[facility], CMP ####[address] Eosinophils/100 WBC (Bld) 6.3 % Normal . [facility] Comment on above: Order Comment: Reaso n for Exam Electrolyte and fluid disorder;Chronic kidney disease, stage Performed By: #### C BC, LIPID, A1C [facility] e[facility], CMP ####[address] Erythrocyte distribution width (RBC) [Ratio] 15.8 % High 12.0-14.8 [facility] Comment on above: Order Comment: Reaso n for Exam Electrolyte and fluid disorder;Chronic kidney disease, stage Performed By: #### C BC, LIPID, A1C [facility], CMP ####[address] Hematocrit (Bld) [Volume fraction] 40.4 % Normal 38.8-50.0 [facility] Comment on above: Order Comment: Reaso n for Exam Electrolyte and fluid disorder;Chronic kidney disease, stage Performed By: #### C BC, LIPID, A1C [facility], CMP ####[place] [id number] [facility] Hemoglobin (Bld) [Mass/Vol] 13.1 g/dL Normal 13.0-17.0 [facility] Comment on above: Order Comment: Reaso n for Exam Electrolyte and fluid disorder;Chronic kidney disease, stage Performed By: #### C BC, LIPID, A1C [facility], CMP ####[place] [id number] [facility] Lymphocytes (Bld) [#/Vol] 1.2 10*3/uL Normal 1.00-4.8 [facility] Comment on above: Order Comment: Reaso n for Exam Electrolyte and fluid disorder;Chronic kidney disease, stage Performed By: #### C BC, LIPID, A1C [facility], CMP ####[address] Lymphocytes/100 WBC (Bld) 15.3 % Normal . [facility] Comment on above: Order Comment: Reaso n for Exam Electrolyte and fluid disorder;Chronic kidney disease, stage Performed By: #### C BC, LIPID, A1C [facility] e[facility], CMP ####[address] MCH (RBC) [Entitic mass] 27.3 pg Low 27.5-35.2 [facility] Comment on above: Order Comment: Reaso n for Exam Electrolyte and fluid disorder;Chronic kidney disease, stage Performed By: #### C BC, LIPID, A1C [facility], CMP ####[address] MCV (RBC) [Entitic vol] 84.1 fL Normal 83.5-101 [facility] Comment on above: Order Comment: Reaso n for Exam Electrolyte and fluid disorder;Chronic kidney disease, stage Performed By: #### C BC, LIPID, A1C [facility] eA, CMP ####[address] Mean Corpuscular HGB Conc 32.4 g/dL Low 32.5-35.6 [facility] Comment on above: Order Comment: Reaso n for Exam Electrolyte and fluid disorder;Chronic kidney disease, stage Performed By: #### C BC, LIPID, A1C [facility] eA, CMP ####[address] Monocytes (Bld) [#/Vol] 1.1 10*3/uL High 0.0-0.8 [facility] Comment on above: Order Comment: Reaso n for Exam Electrolyte and fluid disorder;Chronic kidney disease, stage Performed By: #### C BC, LIPID, A1C [facility] e[facility], CMP ####[address] Monocytes/100 WBC (Bld) 14.1 % Normal . [facility] Comment on above: Order Comment: Reaso n for Exam Electrolyte and fluid disorder;Chronic kidney disease, stage Performed By: #### C BC, LIPID, A1C [facility] e[facility], CMP ####[place] [id number] [facility] Neutrophils (Bld) [#/Vol] 4.9 10*3/uL Normal 1.8-7.7 [facility] Comment on above: Order Comment: Reaso n for Exam Electrolyte and fluid disorder;Chronic kidney disease, stage Performed By: #### C BC, LIPID, A1C [facility] e[facility], CMP ####[place] [id number] [facility] Neutrophils/100 WBC (Bld) 63.4 % Normal . [facility] Comment on above: Order Comment: Reaso n for Exam Electrolyte and fluid disorder;Chronic kidney disease, stage Performed By: #### C BC, LIPID, A1C [facility] e[facility], CMP ####[address] NRBC% 0.1 /100{WBC} Normal 0-0.5 [facility] Comment on above: Order Comment: Reaso n for Exam Electrolyte and fluid disorder;Chronic kidney disease, stage Performed By: #### C BC, LIPID, A1C [facility] e[facility], CMP ####[address] Platelet mean volume (Bld) [Entitic vol] 6.8 fL Normal 6.6-10.1 [facility] Comment on above: Order Comment: Reaso n for Exam Electrolyte and fluid disorder;Chronic kidney disease, stage Performed By: #### C BC, LIPID, A1C [facility] eA, CMP ####[place] [id number] [facility] Platelets (Bld) [#/Vol] 280 10*3/uL Normal 150-450 [facility] Comment on above: Order Comment: Reaso n for Exam Electrolyte and fluid disorder;Chronic kidney disease, stage Performed By: #### C BC, LIPID, A1C [facility] e[facility], CMP ####[place] [id number] [facility] RBC (Bld) [#/Vol] 4.81 10*6/uL Normal 3.90-5.60 [facility] Comment on above: Order Comment: Reaso n for Exam Electrolyte and fluid disorder;Chronic kidney disease, stage Performed By: #### C BC, LIPID, A1C [facility] e[facility], CMP ####[place] [id number] [place] [address] [facility] WBC (Bld) [#/Vol] 7.8 10*3/uL Normal 4.1-10.5 [facility] Comment on above: Order Comment: Reaso n for Exam Electrolyte and fluid disorder;Chronic kidney disease, stage Performed By: #### C BC, LIPID, A1C [facility] e[facility], CMP ####[place] [id number] [place] [address] [facility] Comprehensive Metabolic Pane anny 03-07-2023 Albumin [Mass/Vol] 4.3 g/dL Normal 3.5-5.7 [facility] Comment on above: Order Comment: Reaso n for Exam Electrolyte and fluid disorder;Chronic kidney disease, stage 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 Performed By: #### C BC, LIPID, A1C [facility] e[facility], CMP ####[place] [id number] [place] [address] [facility] Albumin/Globulin [Mass ratio] 1.5 {ratio} Normal [facility] Comment on above: Order Comment: Reaso n for Exam Electrolyte and fluid disorder;Chronic kidney disease, stage 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 Performed By: #### C BC, LIPID, A1C [facility] e[facility], CMP ####[place] [id number] [place] [address] [facility] ALP [Catalytic activity/Vol] 119 U/L High 34-104 [facility] Comment on above: Order Comment: Reaso n for Exam Electrolyte and fluid disorder;Chronic kidney disease, stage 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 Performed By: #### C BC, LIPID, A1C [facility] e[facility], CMP ####[place] [id number] [place] [address] [facility] ALT [Catalytic activity/Vol] 17 U/L Normal 7-52 [facility] Comment on above: Order Comment: Reaso n for Exam Electrolyte and fluid disorder;Chronic kidney disease, stage 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 Performed By: #### C BC, LIPID, A1C [facility] e[facility], CMP ####[address] [address] [facility] Anion gap [Moles/Vol] 11.5 mmol/L Normal 6.0-15.0 [facility] Comment on above: Order Comment: Reaso n for Exam Electrolyte and fluid disorder;Chronic kidney disease, stage 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 Performed By: #### C BC, LIPID, A1C [facility], CMP ####[address] [address] [facility] AST [Catalytic activity/Vol] 22 U/L Normal 13-39 [facility] Comment on above: Order Comment: Reaso n for Exam Electrolyte and fluid disorder;Chronic kidney disease, stage 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 Performed By: #### C BC, LIPID, A1C [facility], CMP ####[address] [address] [facility] Bilirubin [Mass/Vol] 0.7 mg/dL Normal 0.3-1.0 [facility] Comment on above: Order Comment: Reaso n for Exam Electrolyte and fluid disorder;Chronic kidney disease, stage 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 Performed By: #### C BC, LIPID, A1C [facility] e[facility], CMP ####[address] [address] [facility] Calcium [Mass/Vol] 11.2 mg/dL High 8.6-10.3 [facility] Comment on above: Order Comment: Reaso n for Exam Electrolyte and fluid disorder;Chronic kidney disease, stage 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 Performed By: #### C BC, LIPID, A1C [facility] e[facility], CMP ####[address] [address] [facility] Chloride [Moles/Vol] 103 mmol/L Normal 98-107 [facility] Comment on above: Order Comment: Reaso n for Exam Electrolyte and fluid disorder;Chronic kidney disease, stage 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 Performed By: #### C BC, LIPID, A1C [facility] e[facility], CMP ####[address] [address] [facility] CO2 [Moles/Vol] 28.3 mmol/L Normal 21.0-31.0 [facility] Comment on above: Order Comment: Reaso n for Exam Electrolyte and fluid disorder;Chronic kidney disease, stage 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 Performed By: #### C BC, LIPID, A1C [facility] e[facility], CMP ####[place] [id number] [facility] Creatinine [Mass/Vol] 1.59 mg/dL High 0.70-1.30 [facility] Comment on above: Order Comment: Reaso n for Exam Electrolyte and fluid disorder;Chronic kidney disease, stage 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 Performed By: #### C BC, LIPID, A1C [facility], CMP ####[address] GFR/1.73 sq M.predicted MDRD (S/P/Bld) [Vol rate/Area] 47.878 mL/min/{1.73_m2} [facility] Comment on above: Order Comment: Reaso n for Exam Electrolyte and fluid disorder;Chronic kidney disease, stage 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 Performed By: #### C BC, LIPID, A1C [facility] e[facility], CMP ####[place] [id number] [facility] Globulin (S) [Mass/Vol] 2.9 g/dL [facility] Comment on above: Order Comment: Reaso n for Exam Electrolyte and fluid disorder;Chronic kidney disease, stage 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 Glucose of more than 200 mg/dL in a nonstressed, ambulatory subject supports the diagnosis of Diabetes Mellitus. 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 Performed By: #### C BC, LIPID, A1C [facility] eA, CMP ####[place] [id number] [place] [address] [facility] Protein [Mass/Vol] 7.2 g/dL Normal 6.4-8.9 [facility] Comment on above: Order Comment: Reaso n for Exam Electrolyte and fluid disorder;Chronic kidney disease, stage 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 Performed By: #### C BC, LIPID, A1C [facility] e[facility], CMP ####[address] [address] [place] Sodium [Moles/Vol] 138 mmol/L Normal 136-145 [facility] Comment on above: Order Comment: Reaso n for Exam Electrolyte and fluid disorder;Chronic kidney disease, stage 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 Performed By: #### C BC, LIPID, A1C [facility] e[facility], CMP ####[address] [address] [place] Urea nitrogen [Mass/Vol] 32 mg/dL High 7-25 [facility] Comment on above: Order Comment: Reaso n for Exam Electrolyte and fluid disorder;Chronic kidney disease, stage 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 [facility] Erythrocyte distribution wid th Auto (RBC) [Ratio]Ordered By: Geeta Dumont on 03-07-2023 Erythrocyte distribution width (RBC) [Ratio] 15.8 % 12.0-14.8 [facility] Globulin Calc (S) [Mass/Vol] Ordered By: Geeta Dumont on 03-07-2023 Globulin (S) [Mass/Vol] 2.9 g/dL [facility] Glucose [Mass/volume] in Ser um or PlasmaOrdered By: Geeta Dumont on 03-07-2023 Glucose [Mass/Vol] 78 mg/dL 70-100 [facility] Comment on above: ADA recommended refe [...] from glycated hemoglobin (Bld) [Mass/Vol] 180 mg/dL [facility] Hematocrit Auto (Bld) [Volum e fraction]Ordered By: Geeta Dumont on 03-07-2023 Hematocrit (Bld) [Volume fraction] 40.4 % 38.8-50.0 [facility] Hemoglobin A1c percentageOrd ered By: Getea Dumont on 03-07-2023 HbA1c (Bld) [Mass fraction] 7.9 % 4.3-5.6 [facility] Comment on above: Increased risk for d iabetes: 5.7 - 6.4diabetes: >6.4glycemic control for adults with diabetes: <7.0 Hemoglobin [Mass/volume] in BloodOrdered By: Geeta Dumont on 03-07-2023 Hemoglobin (Bld) [Mass/Vol] 13.1 g/dL 13.0-17.0 [facility] Leukocytes [#/volume] correc martin for nucleated erythrocytes in Blood by Automated counOrdered By: Geeta Dumont on 03-07-2023 WBC corrected for nucl RBC Auto (Bld) [#/Vol] 7.8 10*3/uL 4.1-10.5 [facility] Lipid Panelon 03-07-2023 Cholesterol [Mass/Vol] 148 mg/dL Normal 140-200 [facility] Comment on above: Order Comment: Reaso n for Exam Electrolyte and fluid disorder;Chronic kidney disease, stage 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 Result Comment: Chol less than 200 mg/dl low risk Chol 201-239 mg/dl borderline risk Chol 240 mg/dl and greater high risk Performed By: #### C BC, LIPID, A1C [facility], CMP ####[facility] [address] [place] [id number] [facility] Cholesterol in HDL [Mass/Vol] 43 mg/dL Normal 23-92 [facility] Comment on above: Order Comment: Reaso n for Exam Electrolyte and fluid disorder;Chronic kidney disease, stage 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 Result Comment: HDL CHOL ATP-III CLASSIFICATION Cardiovascular Risk HDL > or equal to 60 mg/dL LOW HDL < 40 mg/dL HIGH Performed By: #### C BC, LIPID, A1C [facility] eA, CMP ####[facility] [id number] [place] [address] [facility] Cholesterol.total/Cho lesterol in HDL [Mass ratio] 3.4 {ratio} Normal <5.0 [facility] Comment on above: Order Comment: Reaso n for Exam Electrolyte and fluid disorder;Chronic kidney disease, stage 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 Performed By: #### C BC, LIPID, A1C [facility], CMP ####[place] [id number] LDL Cholesterol,Calculate d 76 mg/dL Normal 0-100 [facility] Comment on above: Order Comment: Reaso [...] Performed By: #### C BC, LIPID, A1C [facility], CMP ####[place] [id number] Triglyceride w/Reflex 147 mg/dL Normal 0-149 [facility] Comment on above: Order Comment: Reaso [...] Performed By: #### C BC, LIPID, A1C [facility], CMP ####[place] [id number] VLDL CHOLESTEROL 29 mg/dL Normal [facility] Comment on above: Order Comment: Reaso n for Exam Electrolyte and fluid disorder;Chronic kidney disease, stage 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 [facility] MCH Auto (RBC) [Entitic mass ]Ordered By: Geeta Dumont on 03-07-2023 MCH (RBC) [Entitic mass] 27.3 pg 27.5-35.2 [facility] MCHC Auto (RBC) [Mass/Vol]Or dered By: Geeta Dumont on 03-07-2023 MCHC (RBC) [Mass/Vol] 32.4 g/dL 32.5-35.6 [facility] MCV Auto (RBC) [Entitic vol] Ordered By: Geeta Dumont on 03-07-2023 MCV (RBC) [Entitic vol] 84.1 fL 83.5-101 [facility] Monocytes Auto (Bld) [#/Vol] Ordered By: Geeta Dumont on 03-07-2023 Monocytes (Bld) [#/Vol] 1.1 10*3/uL 0.0-0.8 [facility] Monocytes/100 WBC Auto (Bld) Ordered By: Geeta Dumont on 03-07-2023 Monocytes/100 WBC (Bld) 14.1 % . [facility] Neutrophils Auto (Bld) [#/Vo l]Ordered By: Geeta Dumont on 03-07-2023 Neutrophils (Bld) [#/Vol] 4.9 10*3/uL 1.8-7.7 [facility] Neutrophils/100 WBC Auto (Bl d)Ordered By: Geeta Dumont on 03-07-2023 Neutrophils/100 WBC (Bld) 63.4 % . [facility] No Panel InformationOrdered By: Geeta Dumont on 03-07-2023 Estimated GFR (CKD-EPI) 47.878 mL/Min [facility] Creatinine Clearance (Chem N/A [facility] Nucleated erythrocytes [Pres ence] in Blood by Automated countOrdered By: Geeta Dumont on 03-07-2023 Nucleated RBC Auto Ql (Bld) 0.1 /100{WBC} 0-0.5 [facility] Platelet mean volume Auto (B ld) [Entitic vol]Ordered By: Geeta Dumont on 03-07-2023 Platelet mean volume (Bld) [Entitic vol] 6.8 fL 6.6-10.1 [facility] Platelets Auto (Bld) [#/Vol] Ordered By: Geeta Dumont on 03-07-2023 Platelets (Bld) [#/Vol] 280 10*3/uL 150-450 [facility] Potassium [Moles/volume] in Serum or PlasmaOrdered By: Geeta Dumont on 03-07-2023 Potassium [Moles/Vol] 4.8 mmol/L 3.5-5.1 [facility] Protein [Mass/volume] in Ser um or PlasmaOrdered By: Geeta Dumont on 03-07-2023 Protein [Mass/Vol] 7.2 g/dL 6.4-8.9 [facility] RBC Auto (Bld) [#/Vol]Ordere d By: Geeta Dumont on 03-07-2023 RBC (Bld) [#/Vol] 4.81 10*6/uL 3.90-5.60 [facility] Serum or plasma albumin/glob ulin mass ratioOrdered By: Geeta Dumont on 03-07-2023 Albumin/Globulin [Mass ratio] 1.5 {ratio} [facility] Serum or plasma anion gap de terminationOrdered By: Geeta Dumont on 03-07-2023 Anion gap [Moles/Vol] 11.5 mmol/L 6.0-15.0 [facility] Serum or plasma high density lipoprotein (HDL) cholesterol measurementOrdered By: Geeta Dumont on 03-07-2023 Cholesterol in HDL [Mass/Vol] 43 mg/dL 23-92 [facility] Comment on above: HDL CHOL ATP-III CLA SSIFICATION Cardiovascular RiskHDL > or equal to 60 mg/dL LOWHDL < 40 mg/dL HIGH Serum or plasma total choles terol/high density lipoprotein (HDL) cholesterol mass ratOrdered By: Geeta Dumont on 03-07-2023 Cholesterol.total/Cho lesterol in HDL [Mass ratio] 3.4 {ratio} <5.0 [facility] Sodium [Moles/volume] in Ser um or PlasmaOrdered By: Geeta Dumont on 03-07-2023 Sodium [Moles/Vol] 138 mmol/L 136-145 [facility] Triglyceride [Mass/volume] i n Serum or PlasmaOrdered By: Geeta Dumont on 03-07-2023 Triglyceride [Mass/Vol] 147 mg/dL 0-149 [facility] Comment on above: TRIG ATP III CLASSIF ICATIONTRIG less than 150 mg/dL NormalTRIG 150-199 mg/dL Borderline highTRIG 200-500 mg/dL High TRIG greater than 500 mg/dL Very highStandard traceable to the Center for Disease Conrtrol and Prevention (CDC) test method. Urea nitrogen [Mass/volume] in Serum or PlasmaOrdered By: Geeta Dumont on 03-07-2023 Urea nitrogen [Mass/Vol] 32 mg/dL 7 [facility] WBC Auto (Bld) [#/Vol]Ordere d By: Geeta Dumont on 03-07-2023 WBC (Bld) [#/Vol] 7.8 10*3/uL 4.1-10.[address] [facility] [address] soft tissue neck w conon 02-21-2023 CT soft tissue neck w con Normal [facility] Alanine aminotransferase [En zymatic activity/volume] in Serum or PlasmaOrdered By: Joana Farooq on 02-18-2023 ALT [Catalytic activity/Vol] 13 U/L 7-52 [facility] Albumin [Mass/volume] in Ser um or Plasma by Bromocresol green (BCG) dye binding methoOrdered By: Joana Farooq on 02-18-2023 Albumin BCG dye [Mass/Vol] 4.0 g/dL 3.5-5.7 [facility] Alkaline phosphatase [Enzyma tic activity/volume] in Serum or PlasmaOrdered By: Joana Farooq on 02-18-2023 ALP [Catalytic activity/Vol] 114 U/L 34-104 [facility] Aspartate aminotransferase [ Enzymatic activity/volume] in Serum or PlasmaOrdered By: Joana Farooq on 02-18-2023 AST [Catalytic activity/Vol] 19 U/L 13-39 [facility] Basophils Auto (Bld) [#/Vol] Ordered By: Joana Farooq on 02-18-2023 Basophils (Bld) [#/Vol] 0.0 10*3/uL 0.0-0.2 [facility] Basophils/100 WBC Auto (Bld) Ordered By: Joana Farooq on 02-18-2023 Basophils/100 WBC (Bld) 0.4 % . [facility] Bilirubin.total [Mass/volume ] in Serum or PlasmaOrdered By: Joana Farooq on 02-18-2023 Bilirubin [Mass/Vol] 0.7 mg/dL 0.3-1.0 [facility] Calcium [Mass/volume] in Ser um or PlasmaOrdered By: Joana Farooq on 02-18-2023 Calcium [Mass/Vol] 11.5 mg/dL 8.6-10.3 [facility] Carbon dioxide, total [Moles /volume] in Serum or PlasmaOrdered By: Joana Farooq on 02-18-2023 CO2 [Moles/Vol] 29.0 mmol/L 21.0-31.0 [facility] Chloride [Moles/volume] in S elmira or PlasmaOrdered By: Joana Farooq on 02-18-2023 Chloride [Moles/Vol] 104 mmol/L 98-107 [facility] Complete Blood Count Auto Di ffon 02-18-2023 Basophils (Bld) [#/Vol] 0.0 10*3/uL Normal 0.0-0.2 [facility] Comment on above: Order Comment: Reaso n for Exam Fatigue, unspecified type;Swelling of left lower extremity;S Result Comment: PERF ORMED BY:[facility] [place] [place], [place] [id number] MEDICAL DIRECTORAPRIL VGEA M.D. Performed By: #### C BC ####[address] Basophils/100 WBC (Bld) 0.4 % Normal . [facility] Comment on above: Order Comment: Reaso n for Exam Fatigue, unspecified type;Swelling of left lower extremity;S Performed By: #### C BC ####[address] Eosinophils (Bld) [#/Vol] 0.4 10*3/uL Normal 0.0-0.45 [facility] Comment on above: Order Comment: Reaso n for Exam Fatigue, unspecified type;Swelling of left lower extremity;S Performed By: #### C BC ####[address] Eosinophils/100 WBC (Bld) 4.7 % Normal . [facility] Comment on above: Order Comment: Reaso n for Exam Fatigue, unspecified type;Swelling of left lower extremity;S Performed By: #### C BC ####[address] Erythrocyte distribution width (RBC) [Ratio] 16.1 % High 12.0-14.8 [facility] Comment on above: Order Comment: Reaso n for Exam Fatigue, unspecified type;Swelling of left lower extremity;S Performed By: #### C BC ####[address] Hematocrit (Bld) [Volume fraction] 38.8 % Normal 38.8-50.0 [facility] Comment on above: Order Comment: Reaso n for Exam Fatigue, unspecified type;Swelling of left lower extremity;S Performed By: #### C BC ####[address] Hemoglobin (Bld) [Mass/Vol] 12.9 g/dL Low 13.0-17.0 [facility] Comment on above: Order Comment: Reaso n for Exam Fatigue, unspecified type;Swelling of left lower extremity;S Performed By: #### C BC ####[address] Lymphocytes (Bld) [#/Vol] 0.7 10*3/uL Low 1.00-4.8 [facility] Comment on above: Order Comment: Reaso n for Exam Fatigue, unspecified type;Swelling of left lower extremity;S Performed By: #### C BC ####[address] Lymphocytes/100 WBC (Bld) 8.6 % Normal . [facility] Comment on above: Order Comment: Reaso n for Exam Fatigue, unspecified type;Swelling of left lower extremity;S Performed By: #### C BC ####[address] MCH (RBC) [Entitic mass] 28.0 pg Normal 27.5-35.2 [facility] Comment on above: Order Comment: Reaso n for Exam Fatigue, unspecified type;Swelling of left lower extremity;S Performed By: #### C BC ####[address] MCV (RBC) [Entitic vol] 84.1 fL Normal 83.5-101 [facility] Comment on above: Order Comment: Reaso n for Exam Fatigue, unspecified type;Swelling of left lower extremity;S Performed By: #### C BC ####[address] Mean Corpuscular HGB Conc 33.3 g/dL Normal 32.5-35.6 [facility] Comment on above: Order Comment: Reaso n for Exam Fatigue, unspecified type;Swelling of left lower extremity;S Performed By: #### C BC ####[address] Monocytes (Bld) [#/Vol] 0.7 10*3/uL Normal 0.0-0.8 [facility] Comment on above: Order Comment: Reaso n for Exam Fatigue, unspecified type;Swelling of left lower extremity;S Performed By: #### C BC ####[address] Monocytes/100 WBC (Bld) 8.2 % Normal . [facility] Comment on above: Order Comment: Reaso n for Exam Fatigue, unspecified type;Swelling of left lower extremity;S Performed By: #### C BC ####[address] Neutrophils (Bld) [#/Vol] 6.3 10*3/uL Normal 1.8-7.7 [facility] Comment on above: Order Comment: Reaso n for Exam Fatigue, unspecified type;Swelling of left lower extremity;S Performed By: #### C BC ####[address] Neutrophils/100 WBC (Bld) 78.1 % Normal . [facility] Comment on above: Order Comment: Reaso n for Exam Fatigue, unspecified type;Swelling of left lower extremity;S Performed By: #### C BC ####[address] NRBC% 0.1 /100{WBC} Normal 0-0.5 [facility] Comment on above: Order Comment: Reaso n for Exam Fatigue, unspecified type;Swelling of left lower extremity;S Performed By: #### C BC ####[address] Platelet mean volume (Bld) [Entitic vol] 7.1 fL Normal 6.6-10.1 [facility] Comment on above: Order Comment: Reaso n for Exam Fatigue, unspecified type;Swelling of left lower extremity;S Performed By: #### C BC ####[address] Platelets (Bld) [#/Vol] 235 10*3/uL Normal 150-450 [facility] Comment on above: Order Comment: Reaso n for Exam Fatigue, unspecified type;Swelling of left lower extremity;S Performed By: #### C BC ####[address] RBC (Bld) [#/Vol] 4.61 10*6/uL Normal 3.90-5.60 [facility] Comment on above: Order Comment: Reaso n for Exam Fatigue, unspecified type;Swelling of left lower extremity;S Performed By: #### C BC ####[facility] WBC (Bld) [#/Vol] 8.1 10*3/uL Normal 4.1-10.5 [facility] Comment on above: Order Comment: Reaso n for Exam Fatigue, unspecified type;Swelling of left lower extremity;S Performed By: #### C BC ####[facility] [place] [id number] [facility] Basophils (Bld) [#/Vol] 0.565377510 10*3/uL Normal 0.0-0.2 10*3/uL [facility] Other Basophils/100 WBC (Bld) 0.400 % . % [facility] Other Eosinophils (Bld) [#/Vol] 0.491918741 10*3/uL Normal 0.0-0.45 10*3/uL [facility] Other Eosinophils/100 WBC (Bld) 4.700 % . % [facility] Other Erythrocyte distribution width (RBC) [Ratio] 16.100 % High 12.0-14.8 % [facility] Other Hematocrit (Bld) [Volume fraction] 38.800 % Normal 38.8-50.0 % [facility] Other Hemoglobin (Bld) [Mass/Vol] 12.826088 g/dL Low 13.0-17.0 g/dL [facility] Other Lymphocytes (Bld) [#/Vol] 0.068687787 10*3/uL Low 1.00-4.8 10*3/uL [facility] Other Lymphocytes/100 WBC (Bld) 8.600 % . % [facility] Other MCH (RBC) [Entitic mass] 28.0000 pg Normal 27.5-35.2 pg [facility] Other MCV (RBC) [Entitic vol] 84.1000 fL Normal 83.5-101 fL [facility] Other Monocytes (Bld) [#/Vol] 0.009576648 10*3/uL Normal 0.0-0.8 10*3/uL [facility] Other Monocytes/100 WBC (Bld) 8.200 % . % [facility] Other Neutrophils (Bld) [#/Vol] 6.960478453 10*3/uL Normal 1.8-7.7 10*3/uL [facility] Other Neutrophils/100 WBC (Bld) 78.100 % . % [facility] Other Platelet mean volume (Bld) [Entitic vol] 7.1000 fL Normal 6.6-10.1 fL [facility] Other WBC (Bld) [#/Vol] 8.633094667 10*3/uL Normal 4.1 -10.5 10*3/uL [facility] Other Complete Blood Count Auto Diff 8.1 10*3/uL Normal 4.1-10.5 10*3/uL [facility] Complete Blood Count Auto Diff 33.3 g/dL Normal 32.5-35.6 g/dL [facility] Other Complete Blood Count Auto Diff 0.1 /100{WBC} Normal 0-0.5 /100{WBC} [facility] Other Comprehensive Metabolic Pane anny 02-18-2023 Albumin [Mass/Vol] 4.0 g/dL Normal 3.5-5.7 [facility] Comment on above: Order Comment: Reaso n for Exam Fatigue, unspecified type;Swelling of left lower extremity;S Reason for Exam Fatigue, unspecified type Performed By: #### C MP, MG, THYROID SC ####[address] Albumin/Globulin [Mass ratio] 1.3 {ratio} Normal [facility] Comment on above: Order Comment: Reaso n for Exam Fatigue, unspecified type;Swelling of left lower extremity;S Reason for Exam Fatigue, unspecified type Performed By: #### C MP, MG, THYROID SC ####[address] ALP [Catalytic activity/Vol] 114 U/L High 34-104 [facility] Comment on above: Order Comment: Reaso n for Exam Fatigue, unspecified type;Swelling of left lower extremity;S Reason for Exam Fatigue, unspecified type Performed By: #### C MP, MG, THYROID SC ####[address] ALT [Catalytic activity/Vol] 13 U/L Normal 7-52 [facility] Comment on above: Order Comment: Reaso n for Exam Fatigue, unspecified type;Swelling of left lower extremity;S Reason for Exam Fatigue, unspecified type Performed By: #### C MP, MG, THYROID SC ####[address] Anion gap [Moles/Vol] 9.0 mmol/L Normal 6.0-15.0 [facility] Comment on above: Order Comment: Reaso n for Exam Fatigue, unspecified type;Swelling of left lower extremity;S Reason for Exam Fatigue, unspecified type Performed By: #### C MP, MG, THYROID SC ####[place] [id number] [facility] AST [Catalytic activity/Vol] 19 U/L Normal 13-39 [facility] Comment on above: Order Comment: Reaso n for Exam Fatigue, unspecified type;Swelling of left lower extremity;S Reason for Exam Fatigue, unspecified type Performed By: #### C MP, MG, THYROID SC ####[place] [id number] [facility] Bilirubin [Mass/Vol] 0.7 mg/dL Normal 0.3-1.0 [facility] Comment on above: Order Comment: Reaso n for Exam Fatigue, unspecified type;Swelling of left lower extremity;S Reason for Exam Fatigue, unspecified type Performed By: #### C MP, MG, THYROID SC ####[place] [id number] Calcium [Mass/Vol] 11.5 mg/dL High 8.6-10.3 [facility] Comment on above: Order Comment: Reaso n for Exam Fatigue, unspecified type;Swelling of left lower extremity;S Reason for Exam Fatigue, unspecified type Performed By: #### C MP, MG, THYROID SC ####[place] [id number] [address] Chloride [Moles/Vol] 104 mmol/L Normal 98-107 [facility] Comment on above: Order Comment: Reaso n for Exam Fatigue, unspecified type;Swelling of left lower extremity;S Reason for Exam Fatigue, unspecified type Performed By: #### C MP, MG, THYROID SC ####[place] [id number] [place] [id number] [facility] CO2 [Moles/Vol] 29.0 mmol/L Normal 21.0-31.0 [facility] Comment on above: Order Comment: Reaso n for Exam Fatigue, unspecified type;Swelling of left lower extremity;S Reason for Exam Fatigue, unspecified type Performed By: #### C MP, MG, THYROID SC ####[place] [id number] [facility] Creatinine [Mass/Vol] 1.23 mg/dL Normal 0.70-1.30 [facility] Comment on above: Order Comment: Reaso n for Exam Fatigue, unspecified type;Swelling of left lower extremity;S Reason for Exam Fatigue, unspecified type Performed By: #### C MP, MG, THYROID SC ####[place] [id number] [place] [id number] [facility] GFR/1.73 sq M.predicted MDRD (S/P/Bld) [Vol rate/Area] mL/min/{1.73_m2} Normal [facility] Other Comment on above: Order Comment: Reaso n for Exam Fatigue, unspecified type;Swelling of left lower extremity;S Reason for Exam Fatigue, unspecified type Performed By: #### C MP, MG, THYROID SC ####[place] [id number] [place] [phone] [facility] Globulin (S) [Mass/Vol] 3.0 g/dL [facility] Comment on above: Order Comment: Reaso n for Exam Fatigue, unspecified type;Swelling of left lower extremity;S Reason for Exam Fatigue, unspecified type Performed By: #### C MP, MG, THYROID SC ####[place] [id number] [place] [id number] [facility] Glucose [Mass/Vol] 160 mg/dL High 70-100 [facility] Comment on above: Order Comment: Reaso n for Exam Fatigue, unspecified type;Swelling of left lower extremity;S Reason for Exam Fatigue, unspecified type Result Comment: [facility] Glucose Reference Range is dependent on time and content of last meal. Glucose of more than 200 mg/dL in a nonstressed, ambulatory subject supports the diagnosis of Diabetes Mellitus. ADA recommended reference range Performed By: #### C MP, MG, THYROID SC ####[address] Potassium [Moles/Vol] 5.0 mmol/L Normal 3.5-5.1 [facility] Comment on above: Order Comment: Reaso n for Exam Fatigue, unspecified type;Swelling of left lower extremity;S Reason for Exam Fatigue, unspecified type Performed By: #### C MP, MG, THYROID SC ####[place] [id number] [place] [phone] [facility] Protein [Mass/Vol] 7.0 g/dL Normal 6.4-8.9 [facility] Comment on above: Order Comment: Reaso n for Exam Fatigue, unspecified type;Swelling of left lower extremity;S Reason for Exam Fatigue, unspecified type Performed By: #### C MP, MG, THYROID SC ####[place] [id number] [facility] Sodium [Moles/Vol] 137 mmol/L Normal 136-145 [facility] Comment on above: Order Comment: Reaso n for Exam Fatigue, unspecified type;Swelling of left lower extremity;S Reason for Exam Fatigue, unspecified type Performed By: #### C MP, MG, THYROID SC ####[facility] [id number] [place] [phone] [facility] Urea nitrogen [Mass/Vol] 22 mg/dL Normal 7-25 [facility] Comment on above: Order Comment: Reaso n for Exam Fatigue, unspecified type;Swelling of left lower extremity;S Reason for Exam Fatigue, unspecified type Performed By: #### C MP, MG, THYROID SC ####[facility] [id number] [address] Albumin [Mass/Vol] 4.065943 g/dL Normal 3.5-5.7 g/dL [facility] [employer] Other Bilirubin [Mass/Vol] 0.3908502 mg/dL Normal 0.3- 1.0 mg/dL [facility] Other Calcium [Mass/Vol] 11.8102869 mg/dL High 8.6-1 0.3 mg/dL [facility] Other CO2 [Moles/Vol] 29.52961800 mmol/L Normal 21.0-3 1.0 mmol/L [facility] Other Creatinine [Mass/Vol] 1.05388543 mg/dL Normal 0. 70-1.30 mg/dL [facility] Other Potassium [Moles/Vol] 5.38803534 mmol/L Normal 3 .5-5.1 mmol/L [facility] Other Protein [Mass/Vol] 7.089844 g/dL Normal 6.4-8.9 g/dL [facility] Other Comprehensive Metabolic Panel 3.0 g/dL [facility] Other Creatinine [Mass/volume] in Serum or PlasmaOrdered By: Joana Farooq on 02-18-2023 Creatinine [Mass/Vol] 1.23 mg/dL 0.70-1.30 [facility] Eosinophils Auto (Bld) [#/Vo l]Ordered By: Joana Farooq on 02-18-2023 Eosinophils (Bld) [#/Vol] 0.4 10*3/uL 0.0-0.45 [facility] Eosinophils/100 WBC Auto (Bl d)Ordered By: Joana Farooq on 02-18-2023 Eosinophils/100 WBC (Bld) 4.7 % . [facility] Erythrocyte distribution wid th Auto (RBC) [Ratio]Ordered By: Joana Farooq on 02-18-2023 Erythrocyte distribution width (RBC) [Ratio] 16.1 % 12.0-14.8 [facility] Erythrocytes [#/volume] in B lood by Automated countOrdered By: Joana Farooq on 02-18-2023 RBC (Bld) [#/Vol] 4.61 10*6/uL 3.90-5.60 [facility] Globulin Calc (S) [Mass/Vol] Ordered By: Joana Farooq on 02-18-2023 Globulin (S) [Mass/Vol] 3.0 g/dL [facility] Glucose [Mass/volume] in Ser um or PlasmaOrdered By: Joana Farooq on 02-18-2023 Glucose [Mass/Vol] 160 mg/dL 70-100 [facility] Comment on above: ADA recommended refe rence rangeRandom Glucose Reference Range is dependent on time and content of last meal. Glucose of more than 200 mg/dL in a nonstressed, ambulatory subject supports the diagnosis of Diabetes Mellitus. Hematocrit Auto (Bld) [Volum e fraction]Ordered By: Joana Farooq on 02-18-2023 Hematocrit (Bld) [Volume fraction] 38.8 % 38.8-50.0 [facility] Hemoglobin [Mass/volume] in BloodOrdered By: Joana Farooq on 02-18-2023 Hemoglobin (Bld) [Mass/Vol] 12.9 g/dL 13.0-17.0 [facility] Leukocytes [#/volume] correc martin for nucleated erythrocytes in Blood by Automated counOrdered By: Joana Farooq on 02-18-2023 WBC corrected for nucl RBC Auto (Bld) [#/Vol] 8.1 10*3/uL 4.1-10.5 [facility] Lymphocytes Auto (Bld) [#/Vo l]Ordered By: Joana Farooq on 02-18-2023 Lymphocytes (Bld) [#/Vol] 0.7 10*3/uL 1.00-4.8 [facility] Lymphocytes/100 WBC Auto (Bl d)Ordered By: Joana Farooq on 02-18-2023 Lymphocytes/100 WBC (Bld) 8.6 % . [facility] MCH Auto (RBC) [Entitic mass ]Ordered By: Joana Farooq on 02-18-2023 MCH (RBC) [Entitic mass] 28.0 pg 27.5-35.2 [facility] MCHC Auto (RBC) [Mass/Vol]Or dered By: Joana Farooq on 02-18-2023 MCHC (RBC) [Mass/Vol] 33.3 g/dL 32.5-35.6 [facility] MCV Auto (RBC) [Entitic vol] Ordered By: Joana Farooq on 02-18-2023 MCV (RBC) [Entitic vol] 84.1 fL 83.5-101 [facility] Magnesiumon 02-18-2023 Magnesium [Mass/Vol] 2.0 mg/dL Normal 1.9-2.7 [facility] Comment on above: Order Comment: Reaso n for Exam Fatigue, unspecified type;Swelling of left lower extremity;S Reason for Exam Fatigue, unspecified type Performed By: #### C MP, MG, THYROID SC ####[facility] [id number] [place] [address] [facility] Magnesium [Mass/Vol] 2.7911842 mg/dL Normal 1.9- 2.7 mg/dL [facility] Other Magnesium [Mass/volume] in S [place] or PlasmaOrdered By: Ingris Lombardo on 02-18-2023 Magnesium [Mass/Vol] 2.0 mg/dL 1.9-2.7 [facility] Monocytes Auto (Bld) [#/Vol] Ordered By: Joana Farooq on 02-18-2023 Monocytes (Bld) [#/Vol] 0.7 10*3/uL 0.0-0.8 [facility] Monocytes/100 WBC Auto (Bld) Ordered By: Joana Farooq on 02-18-2023 Monocytes/100 WBC (Bld) 8.2 % . [facility] Neutrophils Auto (Bld) [#/Vo l]Ordered By: Joana Farooq on 02-18-2023 Neutrophils (Bld) [#/Vol] 6.3 10*3/uL 1.8-7.7 [facility] Neutrophils/100 WBC Auto (Bl d)Ordered By: Joana Farooq on 02-18-2023 Neutrophils/100 WBC (Bld) 78.1 % . [facility] No Panel InformationOrdered By: Joana Farooq on 02-18-2023 Estimated GFR (CKD-EPI) > 60.0 mL/Min [facility] Creatinine Clearance (Chem N/A [facility] Nucleated erythrocytes [Pres ence] in Blood by Automated countOrdered By: Joana Farooq on 02-18-2023 Nucleated RBC Auto Ql (Bld) 0.1 /100{WBC} 0-0.5 [facility] Platelet mean volume Auto (B ld) [Entitic vol]Ordered By: Joana Farooq on 02-18-2023 Platelet mean volume (Bld) [Entitic vol] 7.1 fL 6.6-10.1 [facility] Platelets [#/volume] in Bloo d by Automated countOrdered By: Joana Farooq on 02-18-2023 Platelets (Bld) [#/Vol] 235 10*3/uL 150-450 [facility] Potassium [Moles/volume] in Serum or PlasmaOrdered By: Joana Farooq on 02-18-2023 Potassium [Moles/Vol] 5.0 mmol/L 3.5-5.1 [facility] Protein [Mass/volume] in Ser um or PlasmaOrdered By: Joana Farooq on 02-18-2023 Protein [Mass/Vol] 7.0 g/dL 6.4-8.9 [facility] Serum or plasma albumin/glob ulin mass ratioOrdered By: Joana Farooq on 02-18-2023 Albumin/Globulin [Mass ratio] 1.3 {ratio} [facility] Serum or plasma anion gap de terminationOrdered By: Joana Farooq on 02-18-2023 Anion gap [Moles/Vol] 9.0 mmol/L 6.0-15.0 [facility] Sodium [Moles/volume] in Ser um or PlasmaOrdered By: Joana Farooq on 02-18-2023 Sodium [Moles/Vol] 137 mmol/L 136-145 [facility] THYROID SCREENon 02-18-2023 Free T4 [Mass/Vol] 2.33 ng/dL High 0.61-1.12 [facility] Comment on above: Order Comment: Reaso n for Exam Fatigue, unspecified type;Swelling of left lower extremity;S Reason for Exam Fatigue, unspecified type Performed By: #### C MP, MG, THYROID SC ####[place] [id number] [place] [phone] [facility] TSH Qn 3.52 m[IU]/L Normal 0.45-5.33 [facility] Comment on above: Order Comment: Reaso n for Exam Fatigue, unspecified type;Swelling of left lower extremity;S Reason for Exam Fatigue, unspecified type Result Comment: PERF ORMED BY:[address] [place], [place] [id number] MEDICAL DIRECTORAPRIL VEGA M.D. Performed By: #### C MP, MG, THYROID SC ####[place] [id number] [place] [address] [facility] Free T4 [Mass/Vol] 2.30568499 ng/dL High 0.61- 1.12 ng/dL [facility] Other TSH Qn 3.59423905576 m[IU]/L Normal 0.45-5 .33 u[iU]/mL [facility] Other Thyrotropin [Units/volume] i n Serum or PlasmaOrdered By: Inrgis Lombardo on 02-18-2023 TSH Qn 3.52 m[IU]/L 0.45-5.33 [facility] Thyroxine (T4) free [Mass/vo lume] in Serum or PlasmaOrdered By: Ingris Lombardo on 02-18-2023 Free T4 [Mass/Vol] 2.33 ng/dL 0.61-1.12 [facility] Urate [Mass/volume] in Serum or PlasmaOrdered By: Joana Farooq on 02-18-2023 Urate [Mass/Vol] 5.7 mg/dL 4.4-7.6 [facility] Urea nitrogen [Mass/volume] in Serum or PlasmaOrdered By: Joana Farooq on 02-18-2023 Urea nitrogen [Mass/Vol] 22 mg/dL 7 [facility] Uric Acidon 02-18-2023 Urate [Mass/Vol] 5.7 mg/dL Normal 4.4-7.6 [facility] Comment on above: Result Comment: PERF ORMED BY:[place] [address] [place], [place] [phone] MEDICAL DIRECTORAPRIL VEGA M.D. Performed By: #### U JIM ####[facility] [id number] [place] [address] [facility] WBC Auto (Bld) [#/Vol]Ordere d By: Joana Farooq on 02-18-2023 WBC (Bld) [#/Vol] 8.1 10*3/uL 4.1-10.5 [facility] Albumin Levelon 02-15-2023 Albumin [Mass/Vol] 3.5 g/dL Normal 3.5-5.7 [facility] Comment on above: Result Comment: PERF ORMED BY:[place] [address] [address] [place], [place] [phone] MEDICAL DIRECTORAPRIL VEGA M.D. Performed By: #### A LB, BMP, MG, CBCNO ####[facility] [id number] Albumin [Mass/volume] in Ser um or Plasma by Bromocresol green (BCG) dye binding methoOrdered By: Roberto Fitch on 02-15-2023 Albumin BCG dye [Mass/Vol] 3.5 g/dL 3.5-5.7 [facility] Basic Metabolic Panelon Anion gap [Moles/Vol] 9.4 mmol/L Normal 6.0-15.0 [facility] Comment on above: Performed By: #### A LB, BMP, MG, CBCNO ####[place] [id number] Calcium [Mass/Vol] 10.5 mg/dL High 8.6-10.3 [facility] Comment on above: Performed By: #### A LB, BMP, MG, CBCNO ####[place] [id number] [place] [phone] [facility] Chloride [Moles/Vol] 105 mmol/L Normal 98-107 [facility] Comment on above: Performed By: #### A LB, BMP, MG, CBCNO ####[place] [id number] [facility] CO2 [Moles/Vol] 24.2 mmol/L Normal 21.0-31.0 [facility] Comment on above: Performed By: #### A LB, BMP, MG, CBCNO ####[place] [id number] [place] [id number] [facility] Creatinine [Mass/Vol] 1.14 mg/dL Normal 0.70-1.30 [facility] Comment on above: Performed By: #### A LB, BMP, MG, CBCNO ####[place] [address] [place] [id number] [place] Creatinine Clr Calc Pharmacy 81.85 Normal [facility] Comment on above: Performed By: #### A LB, BMP, MG, CBCNO ####[facility] [place] [id number] [place] GFR/1.73 sq M.predicted MDRD (S/P/Bld) [Vol rate/Area] mL/min/{1.73_m2} Normal [facility] Comment on above: Performed By: #### A LB, BMP, MG, CBCNO ####[place] [address] [place] [address] [facility] Glucose [Mass/Vol] 95 mg/dL Normal 70-100 [facility] Comment on above: Result Comment: [facility] Glucose Reference Range is dependent on time and content of last meal. Glucose of more than 200 mg/dL in a nonstressed, ambulatory subject supports the diagnosis of Diabetes Mellitus. ADA recommended reference range Performed By: #### A LB, BMP, MG, CBCNO ####[place] [address] [place] [id number] [facility] Potassium [Moles/Vol] 3.6 mmol/L Normal 3.5-5.1 [facility] Comment on above: Performed By: #### A LB, BMP, MG, CBCNO ####[place] [address] [place] [address] [facility] Sodium [Moles/Vol] 135 mmol/L Low 136-145 [facility] Comment on above: Performed By: #### A LB, BMP, MG, CBCNO ####[address] [address] [facility] Urea nitrogen [Mass/Vol] 24 mg/dL Normal 7-25 [facility] Comment on above: Performed By: #### A LB, BMP, MG, CBCNO ####[address] [address] [place] [address] [place] Calcium [Mass/volume] in Ser um or PlasmaOrdered By: Polly Velasquez on 02-15-2023 Calcium [Mass/Vol] 10.5 mg/dL 8.6-10.3 [facility] Carbon dioxide, total [Moles /volume] in Serum or PlasmaOrdered By: Polly Velasquez on 02-15-2023 CO2 [Moles/Vol] 24.2 mmol/L 21.0-31.0 [facility] Chloride [Moles/volume] in S [place] or PlasmaOrdered By: Polly Velasquez on 02-15-2023 Chloride [Moles/Vol] 105 mmol/L 98-107 [facility] Creatinine [Mass/volume] in Serum or PlasmaOrdered By: Polly Velasquez on 02-15-2023 Creatinine [Mass/Vol] 1.14 mg/dL 0.70-1.30 [facility] Erythrocyte distribution wid th Auto (RBC) [Ratio]Ordered By: Polly Velasquez on 02-15-2023 Erythrocyte distribution width (RBC) [Ratio] 15.8 % 12.0-14.8 [facility] Glucose Glucometer (BldC) [M ass/Vol]Ordered By: Polly Velasquez on 02-15-2023 Glucose [Mass/Vol] 118 mg/dL [facility] Comment on above: Random Glucose Refer ence Range is dependent on time and content of last meal. Glucose of more than 200 mg/dL in a nonstressed, ambulatory subject supports the diagnosis of Diabetes Mellitus. Glucose Poct Glucometerson 1 04-18-2022 Glucose [Mass/Vol] 118 mg/dL Normal [facility] Comment on above: Result Comment: [facility] Glucose Reference Range is dependent on time and content of last meal. Glucose of more than 200 mg/dL in a nonstressed, ambulatory subject supports the diagnosis of Diabetes Mellitus.PERFORMED BY:[place] [address] [place] [place], [place] [phone] MEDICAL JORGE VEGA M.D. Performed By: #### G LULS ####Point of Care testing, Glucose [Mass/Vol] 112 mg/dL Normal [facility] Comment on above: Result Comment: [facility] Glucose Reference Range is dependent on time and content of last meal. Glucose of more than 200 mg/dL in a nonstressed, ambulatory subject supports the diagnosis of Diabetes Mellitus.PERFORMED BY:[place] [address] [place] [place], [place] [phone] MEDICAL JORGE VEGA M.D. Performed By: #### G OZZY ####Point of Care testing, Glucose [Mass/volume] in Ser um or PlasmaOrdered By: Polly Velasquez on 02-15-2023 Glucose [Mass/Vol] 95 mg/dL 70-100 [facility] Comment on above: ADA recommended refe rence rangeRandom Glucose Reference Range is dependent on time and content of last meal. Glucose of more than 200 mg/dL in a nonstressed, ambulatory subject supports the diagnosis of Diabetes Mellitus. Hematocrit Auto (Bld) [Volum e fraction]Ordered By: Polly Velasquez on 02-15-2023 Hematocrit (Bld) [Volume fraction] 36.9 % 38.8-50.0 [facility] Hemoglobin [Mass/volume] in BloodOrdered By: Polly Velasquez on 02-15-2023 Hemoglobin (Bld) [Mass/Vol] 12.3 g/dL 13.0-17.0 [facility] Hemogram CBC Without Diffon 02-15-2023 Erythrocyte distribution width (RBC) [Ratio] 15.8 % High 12.0-14.8 [facility] Comment on above: Performed By: #### A LB, BMP, MG, CBCNO ####[place] [address] Hematocrit (Bld) [Volume fraction] 36.9 % Low 38.8-50.0 [facility] Comment on above: Performed By: #### A LB, BMP, MG, CBCNO ####[address] Hemoglobin (Bld) [Mass/Vol] 12.3 g/dL Low 13.0-17.0 [facility] Comment on above: Performed By: #### A LB, BMP, MG, CBCNO ####[address] MCH (RBC) [Entitic mass] 27.8 pg Normal 27.5-35.2 [facility] Comment on above: Performed By: #### A LB, BMP, MG, CBCNO ####[place] [address] [place] [id number] [facility] MCV (RBC) [Entitic vol] 83.4 fL Low 83.5-101 [facility] Comment on above: Performed By: #### A LB, BMP, MG, CBCNO ####[place] [id number] [place] [id number] [facility] Mean Corpuscular HGB Conc 33.3 g/dL Normal 32.5-35.6 [facility] Comment on above: Performed By: #### A LB, BMP, MG, CBCNO ####[address] Platelet mean volume (Bld) [Entitic vol] 7.1 fL Normal 6.6-10.1 [facility] Comment on above: Result Comment: PERF ORMED BY:[address] [place], [place] [phone] MEDICAL DIRECTORAPRIL VEGA M.D. Performed By: #### A LB, BMP, MG, CBCNO ####[address] Platelets (Bld) [#/Vol] 182 10*3/uL Normal 150-450 [facility] Comment on above: Performed By: #### A LB, BMP, MG, CBCNO ####[address] RBC (Bld) [#/Vol] 4.42 10*6/uL Normal 3.90-5.60 [facility] Comment on above: Performed By: #### A LB, BMP, MG, CBCNO ####[place] [id number] [facility] WBC (Bld) [#/Vol] 7.5 10*3/uL Normal 4.1-10.5 [facility] Comment on above: Performed By: #### A LB, BMP, MG, CBCNO ####[place] [id number] [facility] Leukocytes [#/volume] correc martin for nucleated erythrocytes in Blood by Automated counOrdered By: Polly Velasquez on 02-15-2023 WBC corrected for nucl RBC Auto (Bld) [#/Vol] 7.5 10*3/uL 4.1-10.5 [facility] MCH Auto (RBC) [Entitic mass ]Ordered By: Polly Velasquez on 02-15-2023 MCH (RBC) [Entitic mass] 27.8 pg 27.5-35.2 [facility] MCHC Auto (RBC) [Mass/Vol]Or dered By: Polly Velasquez on 02-15-2023 MCHC (RBC) [Mass/Vol] 33.3 g/dL 32.5-35.6 [facility] MCV Auto (RBC) [Entitic vol] Ordered By: Polly Velasquez on 02-15-2023 MCV (RBC) [Entitic vol] 83.4 fL 83.5-101 [facility] Magnesiumon 02-15-2023 Magnesium [Mass/Vol] 1.7 mg/dL Low 1.9-2.7 [facility] Comment on above: Performed By: #### A LB, BMP, MG, CBCNO ####[facility] [id number] [place] [id number] [facility] Magnesium [Mass/volume] in S [place] or PlasmaOrdered By: Roberto Fitch on 02-15-2023 Magnesium [Mass/Vol] 1.7 mg/dL 1.9-2.7 [facility] No Panel InformationOrdered By: Polly Velasquez on 02-15-2023 Estimated GFR (CKD-EPI) > 60.0 mL/Min [facility] Creatinine Clearance (Chem 81.85 [facility] Platelet mean volume Auto (B ld) [Entitic vol]Ordered By: Polly Velasquez on 02-15-2023 Platelet mean volume (Bld) [Entitic vol] 7.1 fL 6.6-10.1 [facility] Platelets Auto (Bld) [#/Vol] Ordered By: Polly Velasquez on 02-15-2023 Platelets (Bld) [#/Vol] 182 10*3/uL 150-450 [facility] Potassium [Moles/volume] in Serum or PlasmaOrdered By: Polly Velasquez on 02-15-2023 Potassium [Moles/Vol] 3.6 mmol/L 3.5-5.1 [facility] RBC Auto (Bld) [#/Vol]Ordere d By: Polly Velasquez on 02-15-2023 RBC (Bld) [#/Vol] 4.42 10*6/uL 3.90-5.60 [facility] Serum or plasma anion gap de terminationOrdered By: Polly Velasquez on 02-15-2023 Anion gap [Moles/Vol] 9.4 mmol/L 6.0-15.0 [facility] Sodium [Moles/volume] in Ser um or PlasmaOrdered By: Polly Velasquez on 02-15-2023 Sodium [Moles/Vol] 135 mmol/L 136-145 [facility] Urea nitrogen [Mass/volume] in Serum or PlasmaOrdered By: Polly Velasquez on 02-15-2023 Urea nitrogen [Mass/Vol] 24 mg/dL 7-25 [facility] XR chest 2V*on 02-15-2023 XR chest 2V* Normal [facility] Activated partial thrombopla stin time (aPTT) in platelet poor plasma by coagulation aOrdered By: Viridiana Thompson on 02-14-2023 aPTT Coag (PPP) [Time] 30.9 s 25.1-36.5 [facility] Comment on above: A hematocrit value g reater than 55% may lead to inaccurate results in coagulation testing. Patients having hematocrit values >55% require a special collection tube for coagulation studies. Please contact the laboratory at [phone] for redraw instructions. Basic Metabolic Panelon 01-18 Anion gap [Moles/Vol] 9.4 mmol/L Normal 6.0-15.0 [facility] Comment on above: Performed By: #### P T, MG, PTT, BMP, CBC ####[facility] [id number] [place] [id number] [facility] Calcium [Mass/Vol] 10.7 mg/dL High 8.6-10.3 [facility] Comment on above: Performed By: #### P T, MG, PTT, BMP, CBC ####[address] Chloride [Moles/Vol] 103 mmol/L Normal 98-107 [facility] Comment on above: Performed By: #### P T, MG, PTT, BMP, CBC ####[place] [id number] [facility] CO2 [Moles/Vol] 25.7 mmol/L Normal 21.0-31.0 [facility] Comment on above: Performed By: #### P T, MG, PTT, BMP, CBC ####[address] Creatinine [Mass/Vol] 1.36 mg/dL High 0.70-1.30 [facility] Comment on above: Performed By: #### P T, MG, PTT, BMP, CBC ####[address] Creatinine Clr Calc Pharmacy 68.61 [facility] Comment on above: Performed By: #### P T, MG, PTT, BMP, CBC ####[place] [id number] [facility] GFR/1.73 sq M.predicted MDRD (S/P/Bld) [Vol rate/Area] 57.752 mL/min/{1.73_m2} [facility] Comment on above: Performed By: #### P T, MG, PTT, BMP, CBC ####[place] [id number] [facility] Glucose [Mass/Vol] 144 mg/dL High 70-100 [facility] Comment on above: Result Comment: [place] Glucose Reference Range is dependent on time and content of last meal. Glucose of more than 200 mg/dL in a nonstressed, ambulatory subject supports the diagnosis of Diabetes Mellitus. ADA recommended reference range Performed By: #### P T, MG, PTT, BMP, CBC ####[place] [id number] [facility] Potassium [Moles/Vol] 4.1 mmol/L Normal 3.5-5.1 [facility] Comment on above: Performed By: #### P T, MG, PTT, BMP, CBC ####[place] [id number] [place] [id number] [facility] Sodium [Moles/Vol] 134 mmol/L Low 136-145 [facility] Comment on above: Performed By: #### P T, MG, PTT, BMP, CBC ####[address] Urea nitrogen [Mass/Vol] 27 mg/dL High 7-25 [facility] Comment on above: Performed By: #### P T, MG, PTT, BMP, CBC ####[address] Basophils Auto (Bld) [#/Vol] Ordered By: Viridiana Thompson on 02-14-2023 Basophils (Bld) [#/Vol] 0.0 10*3/uL 0.0-0.2 [facility] Basophils/100 WBC Auto (Bld) Ordered By: Viridiana Thompson on 02-14-2023 Basophils/100 WBC (Bld) 0.6 % . [facility] Complete Blood Count Auto Di ffon 02-14-2023 Basophils (Bld) [#/Vol] 0.0 10*3/uL Normal 0.0-0.2 [facility] Comment on above: Result Comment: PERF ORMED BY:[address] [place], [place] [phone] MEDICAL JORGE VEGA M.D. Performed By: #### P T, MG, PTT, BMP, CBC ####[address] Basophils/100 WBC (Bld) 0.6 % Normal . [facility] Comment on above: Performed By: #### P T, MG, PTT, BMP, CBC ####[address] Eosinophils (Bld) [#/Vol] 0.4 10*3/uL Normal 0.0-0.45 [facility] Comment on above: Performed By: #### P T, MG, PTT, BMP, CBC ####[address] Eosinophils/100 WBC (Bld) 6.1 % Normal . [facility] Comment on above: Performed By: #### P T, MG, PTT, BMP, CBC ####[address] Erythrocyte distribution width (RBC) [Ratio] 15.8 % High 12.0-14.8 [facility] Comment on above: Performed By: #### P T, MG, PTT, BMP, CBC ####[address] Hematocrit (Bld) [Volume fraction] 37.3 % Low 38.8-50.0 [facility] Comment on above: Performed By: #### P T, MG, PTT, BMP, CBC ####[address] Hemoglobin (Bld) [Mass/Vol] 12.4 g/dL Low 13.0-17.0 [facility] Comment on above: Performed By: #### P T, MG, PTT, BMP, CBC ####[address] Lymphocytes (Bld) [#/Vol] 0.9 10*3/uL Low 1.00-4.8 [facility] Comment on above: Performed By: #### P T, MG, PTT, BMP, CBC ####[address] Lymphocytes/100 WBC (Bld) 15.0 % Normal . [facility] Comment on above: Performed By: #### P T, MG, PTT, BMP, CBC ####[address] MCH (RBC) [Entitic mass] 27.9 pg Normal 27.5-35.2 [facility] Comment on above: Performed By: #### P T, MG, PTT, BMP, CBC ####[address] MCV (RBC) [Entitic vol] 84.2 fL Normal 83.5-101 [facility] Comment on above: Performed By: #### P T, MG, PTT, BMP, CBC ####[address] Mean Corpuscular HGB Conc 33.2 g/dL Normal 32.5-35.6 [facility] Comment on above: Performed By: #### P T, MG, PTT, BMP, CBC ####[address] Monocytes (Bld) [#/Vol] 0.7 10*3/uL Normal 0.0-0.8 [facility] Comment on above: Performed By: #### P T, MG, PTT, BMP, CBC ####[address] Monocytes/100 WBC (Bld) 11.8 % Normal . [facility] Comment on above: Performed By: #### P T, MG, PTT, BMP, CBC ####[address] Neutrophils (Bld) [#/Vol] 4.0 10*3/uL Normal 1.8-7.7 [facility] Comment on above: Performed By: #### P T, MG, PTT, BMP, CBC ####[address] Neutrophils/100 WBC (Bld) 66.5 % Normal . [facility] Comment on above: Performed By: #### P T, MG, PTT, BMP, CBC ####[address] NRBC% 0.2 /100{WBC} Normal 0-0.5 [facility] Comment on above: Performed By: #### P T, MG, PTT, BMP, CBC ####[place] [address] [place] [id number] [facility] Platelet mean volume (Bld) [Entitic vol] 7.0 fL Normal 6.6-10.1 [facility] Comment on above: Performed By: #### P T, MG, PTT, BMP, CBC ####[place] [id number] [facility] Platelets (Bld) [#/Vol] 182 10*3/uL Normal 150-450 [facility] Comment on above: Performed By: #### P T, MG, PTT, BMP, CBC ####[address] RBC (Bld) [#/Vol] 4.43 10*6/uL Normal 3.90-5.60 [facility] Comment on above: Performed By: #### P T, MG, PTT, BMP, CBC ####[address] WBC (Bld) [#/Vol] 6.0 10*3/uL Normal 4.1-10.5 [facility] Comment on above: Performed By: #### P T, MG, PTT, BMP, CBC ####[address] ECG 12 lead ECGon 02-14-2023 ECG 12 lead ECG Normal [facility] Eosinophils Auto (Bld) [#/Vo l]Ordered By: Viridiana Thompson on 02-14-2023 Eosinophils (Bld) [#/Vol] 0.4 10*3/uL 0.0-0.45 [facility] Eosinophils/100 WBC Auto (Bl d)Ordered By: Viridiana Thompson on 02-14-2023 Eosinophils/100 WBC (Bld) 6.1 % . [facility] Glucose Poct Glucometerson 1 04-16-2022 Commemt1 Glu2: Cleaned Meter Normal [facility] Comment on above: Result Comment: PERF ORMED BY:[address] [place], [place] [phone] MEDICAL DIRECTORAPRIL VEGA M.D. Performed By: #### G LULS ####Point of Care testing, Glucose [Mass/Vol] 115 mg/dL Normal [facility] Comment on above: Result Comment: [place] om Glucose Reference Range is dependent on time and content of last meal. Glucose of more than 200 mg/dL in a nonstressed, ambulatory subject supports the diagnosis of Diabetes Mellitus. Performed By: #### G LULS ####Point of Care testing, Commemt1 Glu2: Cleaned Meter [facility] Comment on above: Result Comment: PERF ORMED BY:[address] [place], [place] [phone] MEDICAL DIRECTORAPRIL VEGA M.D. Performed By: #### G LULS ####Point of Care testing, Glucose [Mass/Vol] 171 mg/dL Normal [facility] Comment on above: Result Comment: [place] [facility] Glucose Reference Range is dependent on time and content of last meal. Glucose of more than 200 mg/dL in a nonstressed, ambulatory subject supports the diagnosis of Diabetes Mellitus. Performed By: #### G LULS ####Point of Care testing, Commemt1 Glu2: Cleaned Meter [facility] Comment on above: Result Comment: PERF ORMED BY:[place] [address] [place], [place] [phone] MEDICAL DIRECTORAPRIL VEGA M.D. Performed By: #### G LULS ####Point of Care testing, Glucose [Mass/Vol] 189 mg/dL Normal [facility] Comment on above: Result Comment: [place] [facility] Glucose Reference Range is dependent on time and content of last meal. Glucose of more than 200 mg/dL in a nonstressed, ambulatory subject supports the diagnosis of Diabetes Mellitus. Performed By: #### G LULS ####Point of Care testing, Commemt1 Glu2: Cleaned Meter [facility] Comment on above: Result Comment: PERF ORMED BY:[place] [address] [place] [place], [place] [phone] MEDICAL DIRECTORAPRIL VEGA M.D. Performed By: #### G LULS ####Point of Care testing, Glucose [Mass/Vol] 148 mg/dL Normal [facility] Comment on above: Result Comment: [place] [facility] Glucose Reference Range is dependent on time and content of last meal. Glucose of more than 200 mg/dL in a nonstressed, ambulatory subject supports the diagnosis of Diabetes Mellitus. Performed By: #### G LULS ####Point of Care testing, Commemt1 Glu2: Cleaned Meter Normal [facility] Comment on above: Result Comment: PERF ORMED BY:[facility] [place], [place] [phone] MEDICAL DIRECTORAPRIL VEGA M.D. Performed By: #### G LULS ####Point of Care testing, Glucose [Mass/Vol] 144 mg/dL Normal [facility] Comment on above: Result Comment: [place] [facility] Glucose Reference Range is dependent on time and content of last meal. Glucose of more than 200 mg/dL in a nonstressed, ambulatory subject supports the diagnosis of Diabetes Mellitus. Performed By: #### G LULS ####Point of Care testing, INR in Platelet poor plasma by Coagulation assayOrdered By: Viridiana Thompson on 02-14-2023 INR Coag (PPP) [Relative time] 1.0 {INR} [facility] Comment on above: INR Therapeutic Rang [...] 02-14-2023 Lymphocytes (Bld) [#/Vol] 0.9 10*3/uL 1.00-4.8 [facility] Lymphocytes/100 WBC Auto (Bl d)Ordered By: Viridiana Thompson on 02-14-2023 Lymphocytes/100 WBC (Bld) 15.0 % . [facility] Magnesiumon 02-14-2023 Magnesium [Mass/Vol] 1.8 mg/dL Low 1.9-2.7 [facility] Comment on above: Result Comment: PERF ORMED BY:[facility] [place] [place], [place] [phone] MEDICAL DIRECTORAPRIL VEGA M.D. Performed By: #### P T, MG, PTT, BMP, CBC ####[facility] [place] [address] [facility] Monocytes Auto (Bld) [#/Vol] Ordered By: Viridiana Thompson on 02-14-2023 Monocytes (Bld) [#/Vol] 0.7 10*3/uL 0.0-0.8 [facility] Monocytes/100 WBC Auto (Bld) Ordered By: Viridiana Thompson on 02-14-2023 Monocytes/100 WBC (Bld) 11.8 % . [facility] Neutrophils Auto (Bld) [#/Vo l]Ordered By: Viridiana Thompson on 02-14-2023 Neutrophils (Bld) [#/Vol] 4.0 10*3/uL 1.8-7.7 [facility] Neutrophils/100 WBC Auto (Bl d)Ordered By: Viridiana Thompson on 02-14-2023 Neutrophils/100 WBC (Bld) 66.5 % . [facility] No Panel InformationOrdered By: Roberto Fitch on 02-14-2023 Bedside Glucose Comment Glu2: cleaned meter [facility] Nucleated erythrocytes [Pres ence] in Blood by Automated countOrdered By: Viridiana Thompson on 02-14-2023 Nucleated RBC Auto Ql (Bld) 0.2 /100{WBC} 0-0.5 [facility] Partial Thromboplastin Timeo n 02-14-2023 aPTT Coag (Bld) [Time] 30.9 s Normal 25.1-36.5 [facility] Comment on above: Result Comment: A he matocrit value greater than 55% may lead to inaccurate results in coagulation testing. Patients having hematocrit values >55% require a special collection tube for coagulation studies. Please contact the laboratory at [phone] for redraw instructions.PERFORMED BY:[facility] [place] [phone] MEDICAL DIRECTORAPRIL VEGA M.D. Performed By: #### P T, MG, PTT, BMP, CBC ####[place] [address] [place] [address] [facility] Prothrombin Time INRon 02-14 INR Coag (PPP) [Relative time] 1.0 {INR} Normal [facility] Comment on above: Result Comment: INR [...] #### P T, MG, PTT, BMP, CBC ####[place] [address] [place] [address] [facility] PT Coag (PPP) [Time] 11.9 s Normal 9.0-12.9 [facility] Comment on above: Result Comment: A he matocrit value greater than 55% may lead to inaccurate results in coagulation testing. Patients having hematocrit values >55% require a special collection tube for coagulation studies. Please contact the laboratory at [phone] for redraw instructions. Performed By: #### P T, MG, PTT, BMP, CBC ####[facility] [place] [address] [facility] Prothrombin time (PT)Ordered By: Viridiana Thompson on 02-14-2023 PT Coag (PPP) [Time] 11.9 s 9.0-12.9 [facility] Comment on above: A hematocrit value g reater than 55% may lead to inaccurate results in coagulation testing. Patients having hematocrit values >55% require a special collection tube for coagulation studies. Please contact the laboratory at [phone] for redraw instructions. WBC Auto (Bld) [#/Vol]Ordere d By: Viridiana Thompson on 02-14-2023 WBC (Bld) [#/Vol] 6.0 10*3/uL 4.1-10.5 [facility] XR chest 1V portableon 02-14 XR chest 1V portable Normal [facility] Basic Metabolic Panelon 01-17 Anion gap [Moles/Vol] 9.0 mmol/L Normal 6.0-15.0 [facility] Comment on above: Performed By: #### LUIS Bee, CBCNO ####[facility] [id number] [place] [address] [facility] Calcium [Mass/Vol] 10.9 mg/dL High 8.6-10.3 [facility] Comment on above: Performed By: #### LUIS Bee, CBCNO ####[facility] [address] [place] [address] [facility] Chloride [Moles/Vol] 104 mmol/L Normal 98-107 [facility] Comment on above: Performed By: #### LUIS Bee, CBCNO ####[facility] [address] [place] [address] [facility] CO2 [Moles/Vol] 25.9 mmol/L Normal 21.0-31.0 [facility] Comment on above: Performed By: #### LUIS Bee, CBCNO ####[place] [address] [place] [address] [facility] Creatinine [Mass/Vol] 1.29 mg/dL Normal 0.70-1.30 [facility] Comment on above: Performed By: #### LUIS Bee, CBCNO ####[facility] [id number] [place] [address] [place] Creatinine Clr Calc Pharmacy 72.38 [facility] Comment on above: Performed By: #### LUIS Bee, CBCNO ####[facility] [id number] [place] [address] [place] GFR/1.73 sq M.predicted MDRD (S/P/Bld) [Vol rate/Area] mL/min/{1.73_m2} [facility] Comment on above: Performed By: #### M LUIS Snowden, CBCNO ####[facility] [id number] [place] [address] [facility] Glucose [Mass/Vol] 145 mg/dL High 70-100 [facility] Comment on above: Result Comment: [facility] Glucose Reference Range is dependent on time and content of last meal. Glucose of more than 200 mg/dL in a nonstressed, ambulatory subject supports the diagnosis of Diabetes Mellitus. ADA recommended reference range Performed By: #### M LUIS Snowden, CBCNO ####[facility] [facility] [id number] [place] [address] [facility] Potassium [Moles/Vol] 4.9 mmol/L Normal 3.5-5.1 [facility] Comment on above: Performed By: #### LUIS Bee, CBCNO ####[address] [place] [address] [facility] Sodium [Moles/Vol] 134 mmol/L Low 136-145 [facility] Comment on above: Performed By: #### LUIS Bee, CBCNO ####[facility] [place] [address] [facility] Urea nitrogen [Mass/Vol] 29 mg/dL High 7-25 [facility] Comment on above: Performed By: #### LUIS Bee, CBCNO ####[facility] [place] [address] [place] Glucose Poct Glucometerson 04-15-2022 Glucose [Mass/Vol] 169 mg/dL Normal [facility] Comment on above: Result Comment: [facility] Glucose Reference Range is dependent on time and content of last meal. Glucose of more than 200 mg/dL in a nonstressed, ambulatory subject supports the diagnosis of Diabetes Mellitus.PERFORMED BY:[address] [place], [place] [phone] MEDICAL DIRECTORAPRIL VEGA M.D. Performed By: #### G LULS ####Point of Care testing, Commemt1 Glu2: Cleaned Meter Normal [facility] Comment on above: Result Comment: PERF ORMED BY:[address] [place], [place] [phone] MEDICAL DIRECTORAPRIL VEGA M.D. Performed By: #### G LULS ####Point of Care testing, Glucose [Mass/Vol] 131 mg/dL Normal [facility] Comment on above: Result Comment: [place] [facility] Glucose Reference Range is dependent on time and content of last meal. Glucose of more than 200 mg/dL in a nonstressed, ambulatory subject supports the diagnosis of Diabetes Mellitus. Performed By: #### G LULS ####Point of Care testing, Commemt1 Glu2: Cleaned Meter Normal [facility] Comment on above: Result Comment: PERF ORMED BY:[address] [place], [place] [phone] MEDICAL DIRECTORAPRIL VEGA M.D. Performed By: #### G LULS ####Point of Care testing, Glucose [Mass/Vol] 202 mg/dL Normal [facility] Comment on above: Result Comment: [place] [facility] Glucose Reference Range is dependent on time and content of last meal. Glucose of more than 200 mg/dL in a nonstressed, ambulatory subject supports the diagnosis of Diabetes Mellitus. Performed By: #### Sp LULS ####Point of Care testing, Hemogram CBC Without Diffon 02-13-2023 Erythrocyte distribution width (RBC) [Ratio] 15.7 % High 12.0-14.8 [facility] Comment on above: Performed By: #### M LUIS Snowden CBCNO ####[facility] [id number] [place] [id number] [facility] Hematocrit (Bld) [Volume fraction] 35.0 % Low 38.8-50.0 [facility] Comment on above: Performed By: #### LUIS Bee CBCNO ####[facility] [id number] [place] [id number] [facility] Hemoglobin (Bld) [Mass/Vol] 11.6 g/dL Low 13.0-17.0 [facility] Comment on above: Performed By: #### M G, BMP, CBCNO ####[facility] [id number] [place] [address] [facility] MCH (RBC) [Entitic mass] 28.0 pg Normal 27.5-35.2 [facility] Comment on above: Performed By: #### LUIS Bee, CBCNO ####[facility] [id number] [place] [address] [facility] MCV (RBC) [Entitic vol] 84.2 fL Normal 83.5-101 [facility] Comment on above: Performed By: #### LUIS Bee, CBCNO ####[address] [place] [address] [facility] Mean Corpuscular HGB Conc 33.2 g/dL Normal 32.5-35.6 [facility] Comment on above: Performed By: #### LUIS Bee, CBCNO ####[address] [address] [facility] Platelet mean volume (Bld) [Entitic vol] 7.1 fL Normal 6.6-10.1 [facility] Comment on above: Result Comment: PERF ORMED BY:[address] [place], [place] [phone] MEDICAL DIRECTORAPRIL VEGA M.D. Performed By: #### LUIS Bee, CBCNO ####[address] [place] [address] [facility] Platelets (Bld) [#/Vol] 181 10*3/uL Normal 150-450 [facility] Comment on above: Performed By: #### LUIS Bee, CBCNO ####[address] [place] [address] [facility] RBC (Bld) [#/Vol] 4.15 10*6/uL Normal 3.90-5.60 [facility] Comment on above: Performed By: #### LUIS Bee, CBCNO ####[address] [address] [facility] WBC (Bld) [#/Vol] 5.8 10*3/uL Normal 4.1-10.5 [facility] Comment on above: Performed By: #### M Sp, BMP, CBCNO ####[address] [place] [address] [facility] Magnesiumon 02-13-2023 Magnesium [Mass/Vol] 1.9 mg/dL Normal 1.9-2.7 [facility] Comment on above: Result Comment: PERF ORMED BY:[address] [place], [place] [phone] MEDICAL DIRECTORAPRIL VEGA M.D. Performed By: #### M Sp, BMP, CBCNO ####[address] [place] [address] [facility] Alanine aminotransferase [En zymatic activity/volume] in Serum or PlasmaOrdered By: Humberto Zeng on 02-12-2023 ALT [Catalytic activity/Vol] 13 U/L 7-52 [facility] Alkaline phosphatase [Enzyma tic activity/volume] in Serum or PlasmaOrdered By: Humberto Zeng on 02-12-2023 ALP [Catalytic activity/Vol] 103 U/L 34-104 [facility] Aspartate aminotransferase [ Enzymatic activity/volume] in Serum or PlasmaOrdered By: Humberto Zeng on 02-12-2023 AST [Catalytic activity/Vol] 20 U/L 13-39 [facility] B-Type Natriuretic Peptideon 02-12-2023 Natriuretic peptide B (Bld) [Mass/Vol] 151.0 pg/mL High 5-100 [facility] Comment on above: Result Comment: PERF ORMED BY:[address] [place], [place] [phone] MEDICAL DIRECTORAPRIL VEGA M.D. Performed By: #### B SUPERINTENDENT MECHANICAL ####[address] [place] [address] [facility] Bilirubin.total [Mass/volume ] in Serum or PlasmaOrdered By: Humberto Zeng on 02-12-2023 Bilirubin [Mass/Vol] 0.5 mg/dL 0.3-1.0 [facility] Complete Blood Count Auto Di ffon 02-12-2023 Basophils (Bld) [#/Vol] 0.0 10*3/uL Normal 0.0-0.2 [facility] Comment on above: Result Comment: PERF ORMED BY:[address] [place], [place] [phone] MEDICAL DIRECTORAPRIL VEGA M.D. Performed By: #### C BC, MG, CK, HS TROP, CMP, PT, PTT ####[address] Basophils/100 WBC (Bld) 0.6 % Normal . [facility] Comment on above: Performed By: #### C BC, MG, CK, HS TROP, CMP, PT, PTT ####[address] Eosinophils (Bld) [#/Vol] 0.4 10*3/uL Normal 0.0-0.45 [facility] Comment on above: Performed By: #### C BC, MG, CK, HS TROP, CMP, PT, PTT ####[address] Eosinophils/100 WBC (Bld) 6.2 % Normal . [facility] Comment on above: Performed By: #### C BC, MG, CK, HS TROP, CMP, PT, PTT ####[address] Erythrocyte distribution width (RBC) [Ratio] 15.9 % High 12.0-14.8 [facility] Comment on above: Performed By: #### C BC, MG, CK, HS TROP, CMP, PT, PTT ####[address] Hematocrit (Bld) [Volume fraction] 38.8 % Normal 38.8-50.0 [facility] Comment on above: Performed By: #### C BC, MG, CK, HS TROP, CMP, PT, PTT ####[address] Hemoglobin (Bld) [Mass/Vol] 12.7 g/dL Low 13.0-17.0 [facility] Comment on above: Performed By: #### C BC, MG, CK, HS TROP, CMP, PT, PTT ####[address] Lymphocytes (Bld) [#/Vol] 1.1 10*3/uL Normal 1.00-4.8 [facility] Comment on above: Performed By: #### C BC, MG, CK, HS TROP, CMP, PT, PTT ####[address] Lymphocytes/100 WBC (Bld) 18.7 % Normal . [facility] Comment on above: Performed By: #### C BC, MG, CK, HS TROP, CMP, PT, PTT ####[address] MCH (RBC) [Entitic mass] 27.7 pg Normal 27.5-35.2 [facility] Comment on above: Performed By: #### C BC, MG, CK, HS TROP, CMP, PT, PTT ####[address] MCV (RBC) [Entitic vol] 84.8 fL Normal 83.5-101 [facility] Comment on above: Performed By: #### C BC, MG, CK, HS TROP, CMP, PT, PTT ####[address] Mean Corpuscular HGB Conc 32.7 g/dL Normal 32.5-35.6 [facility] Comment on above: Performed By: #### C BC, MG, CK, HS TROP, CMP, PT, PTT ####[address] Monocytes (Bld) [#/Vol] 0.6 10*3/uL Normal 0.0-0.8 [facility] Comment on above: Performed By: #### C BC, MG, CK, HS TROP, CMP, PT, PTT ####[address] Monocytes/100 WBC (Bld) 15.38 % Normal 0.00-20.00 [facility] Comment on above: Performed By: #### C BC, MG, CK, HS TROP, CMP, PT, PTT ####[address] Monocytes/100 WBC (Bld) 10.7 % Normal . [facility] Comment on above: Performed By: #### C BC, MG, CK, HS TROP, CMP, PT, PTT ####[address] Neutrophils (Bld) [#/Vol] 3.9 10*3/uL Normal 1.8-7.7 [facility] Comment on above: Performed By: #### C BC, MG, CK, HS TROP, CMP, PT, PTT ####[address] Neutrophils/100 WBC (Bld) 63.8 % Normal . [facility] Comment on above: Performed By: #### C BC, MG, CK, HS TROP, CMP, PT, PTT ####[address] NRBC% 0.1 /100{WBC} Normal 0-0.5 [facility] Comment on above: Performed By: #### C BC, MG, CK, HS TROP, CMP, PT, PTT ####[address] Platelet mean volume (Bld) [Entitic vol] 7.2 fL Normal 6.6-10.1 [facility] Comment on above: Performed By: #### C BC, MG, CK, HS TROP, CMP, PT, PTT ####[address] Platelets (Bld) [#/Vol] 205 10*3/uL Normal 150-450 [facility] Comment on above: Performed By: #### C BC, MG, CK, HS TROP, CMP, PT, PTT ####[address] [address] [place] RBC (Bld) [#/Vol] 4.58 10*6/uL Normal 3.90-5.60 [facility] Comment on above: Performed By: #### C BC, MG, CK, HS TROP, CMP, PT, PTT ####[address] WBC (Bld) [#/Vol] 6.1 10*3/uL Normal 4.1-10.5 [facility] Comment on above: Performed By: #### C BC, MG, CK, HS TROP, CMP, PT, PTT ####[address] Comprehensive Metabolic Pane anny 02-12-2023 Albumin [Mass/Vol] 4.0 g/dL Normal 3.5-5.7 [facility] Comment on above: Performed By: #### C BC, MG, CK, HS TROP, CMP, PT, PTT ####[address] Albumin/Globulin [Mass ratio] 1.3 {ratio} Normal [facility] Comment on above: Performed By: #### C BC, MG, CK, HS TROP, CMP, PT, PTT ####[address] ALP [Catalytic activity/Vol] 103 U/L Normal 34-104 [facility] Comment on above: Performed By: #### C BC, MG, CK, HS TROP, CMP, PT, PTT ####[address] ALT [Catalytic activity/Vol] 13 U/L Normal 7-52 [facility] Comment on above: Performed By: #### C BC, MG, CK, HS TROP, CMP, PT, PTT ####[address] Anion gap [Moles/Vol] 8.9 mmol/L Normal 6.0-15.0 [facility] Comment on above: Performed By: #### C BC, MG, CK, HS TROP, CMP, PT, PTT ####[address] AST [Catalytic activity/Vol] 20 U/L Normal 13-39 [facility] Comment on above: Performed By: #### C BC, MG, CK, HS TROP, CMP, PT, PTT ####[address] Bilirubin [Mass/Vol] 0.5 mg/dL Normal 0.3-1.0 [facility] Comment on above: Performed By: #### C BC, MG, CK, HS TROP, CMP, PT, PTT ####[address] Calcium [Mass/Vol] 11.3 mg/dL High 8.6-10.3 [facility] Comment on above: Performed By: #### C BC, MG, CK, HS TROP, CMP, PT, PTT ####[address] Chloride [Moles/Vol] 103 mmol/L Normal 98-107 [facility] Comment on above: Performed By: #### C BC, MG, CK, HS TROP, CMP, PT, PTT ####[address] CO2 [Moles/Vol] 28.3 mmol/L Normal 21.0-31.0 [facility] Comment on above: Performed By: #### C BC, MG, CK, HS TROP, CMP, PT, PTT ####[place] [id number] [facility] Creatinine [Mass/Vol] 1.33 mg/dL High 0.70-1.30 [facility] Comment on above: Performed By: #### C BC, MG, CK, HS TROP, CMP, PT, PTT ####[place] [id number] [facility] Creatinine Clr Calc Pharmacy 70.20 [facility] Comment on above: Performed By: #### C BC, MG, CK, HS TROP, CMP, PT, PTT ####[id number] GFR/1.73 sq M.predicted MDRD (S/P/Bld) [Vol rate/Area] 59.319 mL/min/{1.73_m2} [facility] Comment on above: Performed By: #### C BC, MG, CK, HS TROP, CMP, PT, PTT ####[address] Globulin (S) [Mass/Vol] 3.2 g/dL [facility] Comment on above: Performed By: #### C BC, MG, CK, HS TROP, CMP, PT, PTT ####[address] Glucose [Mass/Vol] 177 mg/dL High 70-100 [facility] Comment on above: Result Comment: [facility] Glucose Reference Range is dependent on time and content of last meal. Glucose of more than 200 mg/dL in a nonstressed, ambulatory subject supports the diagnosis of Diabetes Mellitus. ADA recommended reference range Performed By: #### C BC, MG, CK, HS TROP, CMP, PT, PTT ####[address] Potassium [Moles/Vol] 4.2 mmol/L Normal 3.5-5.1 [facility] Comment on above: Performed By: #### C BC, MG, CK, HS TROP, CMP, PT, PTT ####[place] [id number] [facility] Protein [Mass/Vol] 7.2 g/dL Normal 6.4-8.9 [facility] Comment on above: Performed By: #### C BC, MG, CK, HS TROP, CMP, PT, PTT ####[place] [id number] [facility] Sodium [Moles/Vol] 136 mmol/L Normal 136-145 [facility] Comment on above: Performed By: #### C BC, MG, CK, HS TROP, CMP, PT, PTT ####[facility] [id number] [place] [address] [place] Urea nitrogen [Mass/Vol] 30 mg/dL High 7-25 [facility] Comment on above: Performed By: #### C BC, MG, CK, HS TROP, CMP, PT, PTT ####[facility] [id number] [place] [address] [facility] Creatine Kinaseon 02-12-2023 CK [Catalytic activity/Vol] 102 U/L Normal [facility] Comment on above: Performed By: #### C BC, MG, CK, HS TROP, CMP, PT, PTT ####[facility] [id number] [place] [address] [facility] Creatine kinase [Enzymatic a ctivity/volume] in Serum or PlasmaOrdered By: Humberto Zeng on 02-12-2023 CK [Catalytic activity/Vol] 102 U/L [facility] ECG 12 lead ECGon 02-12-2023 ECG 12 lead ECG Normal [facility] Globulin Calc (S) [Mass/Vol] Ordered By: Humberto Zeng on 02-12-2023 Globulin (S) [Mass/Vol] 3.2 g/dL [facility] Glucose Poct Glucometerson 1 04-14-2022 Commemt1 Glu2: Cleaned Meter Normal [facility] Comment on above: Result Comment: PERF ORMED BY:[address] [place], [place] [phone] MEDICAL DIRECTORAPRIL VEGA M.D. Performed By: #### G LULS ####Point of Care testing, Glucose [Mass/Vol] 118 mg/dL Normal [facility] Comment on above: Result Comment: [facility] Glucose Reference Range is dependent on time [...] of Care testing, Commemt2 Cleaned Meter Normal [facility] Comment on above: Result Comment: PERF ORMED BY:[address] [place], [place] [phone] MEDICAL DIRECTORAPRIL VEGA M.D. Performed By: #### G LULS ####Point of Care testing, Glucose [Mass/Vol] 171 mg/dL Normal [facility] Comment on above: Result Comment: [facility] Glucose Reference Range is dependent on time and content of last meal. Glucose of more than 200 mg/dL in a nonstressed, ambulatory subject supports the diagnosis of Diabetes Mellitus. Performed By: #### G LULS ####Point of Care testing, Magnesiumon 02-12-2023 Magnesium [Mass/Vol] 2.0 mg/dL Normal 1.9-2.7 [facility] Comment on above: Result Comment: PERF ORMED BY:[address] [place], [place] [phone] MEDICAL DIRECTORAPRIL VEGA M.D. Performed By: #### C BC, MG, CK, HS TROP, CMP, PT, PTT ####[facility] [id number] [place] [address] [facility] Monocyte distribution width [Entitic volume] in Blood by AutomatedOrdered By: Humberto Zeng on 02-12-2023 Monocyte distribution width Auto (Bld) [Entitic vol] 15.38 % 0.00-20.00 [facility] Natriuretic peptide B [Mass/ Vol]Ordered By: Humberto Zeng on 02-12-2023 Natriuretic peptide B (Bld) [Mass/Vol] 151.0 pg/mL 5-100 [facility] No Panel InformationOrdered By: Humberto Zeng on 02-12-2023 Bedside Glucose #2 Comment Cleaned meter [facility] Partial Thromboplastin Timeo n 02-12-2023 aPTT Coag (Bld) [Time] 32.1 s Normal 25.1-36.5 [facility] Comment on above: Result Comment: A he matocrit value greater than 55% may lead to inaccurate results in coagulation testing. Patients having hematocrit values >55% require a special collection tube for coagulation studies. Please contact the laboratory at [phone] for redraw instructions.PERFORMED BY:[address] [place], [place] [phone] MEDICAL DIRECTORAPRIL VEGA M.D. Performed By: #### C BC, MG, CK, HS TROP, CMP, PT, PTT ####[address] [place] [id number] [facility] Protein [Mass/volume] in Ser um or PlasmaOrdered By: Humberto Zeng on 02-12-2023 Protein [Mass/Vol] 7.2 g/dL 6.4-8.9 [facility] Prothrombin Time INRon 02-12 INR Coag (PPP) [Relative time] 1.0 {INR} Normal [facility] Comment on above: Result Comment: INR [...] MG, CK, HS TROP, CMP, PT, PTT ####[address] [place] [address] [facility] PT Coag (PPP) [Time] 11.5 s Normal 9.0-12.9 [facility] Comment on above: Result Comment: A he matocrit value greater than 55% may lead to inaccurate results in coagulation testing. Patients having hematocrit values >55% require a special collection tube for coagulation studies. Please contact the laboratory at [phone] for redraw instructions. Performed By: #### C BC, MG, CK, HS TROP, CMP, PT, PTT ####[address] [place] [address] [facility] Serum or plasma albumin/glob ulin mass ratioOrdered By: Humberto Zeng on 02-12-2023 Albumin/Globulin [Mass ratio] 1.3 {ratio} [facility] Troponin I High Sensitivityo n 02-12-2023 Troponin I High Sensitivity 12.0 pg/mL Normal 0.0-20.0 [facility] Comment on above: Result Comment: PERF ORMED BY:[facility] [place], [place] [phone] MEDICAL DIRECTORAPRIL VEGA M.D. Performed By: #### C BC, MG, CK, HS TROP, CMP, PT, PTT ####[facility] [place] [address] [facility] Troponin I.cardiac [Mass/vol ume] in Serum or Plasma by Detection limit <= 0.01 ng/Ordered By: Humberto Zeng on 02-12-2023 Troponin I.cardiac DL <= 0.01 ng/mL [Mass/Vol] 12.0 pg/mL 0.0-20.0 [facility] XR chest 1V portableon 02-12 XR chest 1V portable Normal [facility] Albumin [Mass/volume] in Ser um or Plasma by Bromocresol green (BCG) dye binding methoOrdered By: Mina Reilly on 02-10-2023 Albumin BCG dye [Mass/Vol] 3.8 g/dL 3.5-5.7 [facility] Calcium [Mass/volume] in Ser um or PlasmaOrdered By: Mina Reilly on 02-10-2023 Calcium [Mass/Vol] 10.8 mg/dL 8.6-10.3 [facility] Carbon dioxide, total [Moles /volume] in Serum or PlasmaOrdered By: Mina Reilly on 02-10-2023 CO2 [Moles/Vol] 29.9 mmol/L 21.0-31.0 [facility] Chloride [Moles/volume] in S [place] or PlasmaOrdered By: Mina Reilly on 02-10-2023 Chloride [Moles/Vol] 99 mmol/L 98-107 [facility] Creatinine [Mass/volume] in Serum or PlasmaOrdered By: Mina Reilly on 02-10-2023 Creatinine [Mass/Vol] 1.58 mg/dL 0.70-1.30 [facility] Glucose [Mass/volume] in Ser um or PlasmaOrdered By: Mina Reilly on 02-10-2023 Glucose [Mass/Vol] 114 mg/dL 70-100 [facility] Comment on above: ADA recommended refe rence rangeRandom Glucose Reference Range is dependent on time and content of last meal. Glucose of more than 200 mg/dL in a nonstressed, ambulatory subject supports the diagnosis of Diabetes Mellitus. Magnesiumon 02-10-2023 Magnesium [Mass/Vol] 2.0 mg/dL Normal 1.9-2.7 [facility] Comment on above: Result Comment: PERF ORMED BY:[address] [place] [phone] MEDICAL DIRECTORAPRIL VEGA M.D. Performed By: #### R ENAL, MG ####[address] [place] [address] [facility] Magnesium [Mass/volume] in S elm[place] or PlasmaOrdered By: Subhash Duckworth on 02-10-2023 Magnesium [Mass/Vol] 2.0 mg/dL 1.9-2.7 [facility] No Panel InformationOrdered By: Mina Reilly on 02-10-2023 Estimated GFR (CKD-EPI) 48.242 mL/Min [facility] Creatinine Clearance (Chem 58.79 [facility] Phosphate [Mass/volume] in S [place] or PlasmaOrdered By: Mina Reilly on 02-10-2023 Phosphate [Mass/Vol] 2.5 mg/dL 2.5-4.5 [facility] Potassium [Moles/volume] in Serum or PlasmaOrdered By: Mina Reilly on 02-10-2023 Potassium [Moles/Vol] 3.1 mmol/L 3.5-5.1 [facility] Renal Function Panelon 02-10 Albumin [Mass/Vol] 3.8 g/dL Normal 3.5-5.7 [facility] Comment on above: Performed By: #### R ENAL, MG ####[address] [address] [facility] Anion gap [Moles/Vol] 12.2 mmol/L Normal 6.0-15.0 [facility] Comment on above: Performed By: #### MG SANAZ ####[address] [address] [facility] Calcium [Mass/Vol] 10.8 mg/dL High 8.6-10.3 [facility] Comment on above: Performed By: #### Mary VEGA MG ####[place] [id number] [facility] Chloride [Moles/Vol] 99 mmol/L Normal 98-107 [facility] Comment on above: Performed By: #### MG SANAZ ####[place] [id number] [facility] CO2 [Moles/Vol] 29.9 mmol/L Normal 21.0-31.0 [facility] Comment on above: Performed By: #### MG SANAZ ####[place] [id number] [facility] Creatinine [Mass/Vol] 1.58 mg/dL High 0.70-1.30 [facility] Comment on above: Performed By: #### MG SANAZ ####[place] [id number] [facility] Creatinine Clr Calc Pharmacy 58.79 [facility] Comment on above: Result Comment: PERF ORMED BY:[place] [address] [place], [place] [phone] MEDICAL JORGE VEGA M.D. Performed By: #### Mary VEGA MG ####[address] [address] [facility] GFR/1.73 sq M.predicted MDRD (S/P/Bld) [Vol rate/Area] 48.242 mL/min/{1.73_m2} [facility] Comment on above: Performed By: #### MG SANAZ ####[place] [id number] [facility] Glucose [Mass/Vol] 114 mg/dL High 70-100 [facility] Comment on above: Result Comment: [place] Glucose Reference Range is dependent on time and content of last meal. Glucose of more than 200 mg/dL in a nonstressed, ambulatory subject supports the diagnosis of Diabetes Mellitus. ADA recommended reference range Performed By: #### R ENAL, MG ####[facility] [id number] [place] [address] [facility] Phosphate [Mass/Vol] 2.5 mg/dL Normal 2.5-4.5 [facility] Comment on above: Performed By: #### R ENAL, MG ####[facility] [id number] Potassium [Moles/Vol] 3.1 mmol/L Low 3.5-5.1 [facility] Comment on above: Performed By: #### R ENAL, MG ####[place] [address] [place] [id number] [facility] Sodium [Moles/Vol] 138 mmol/L Normal 136-145 [facility] Comment on above: Performed By: #### R ENAL, MG ####[place] [address] [place] [id number] [facility] Urea nitrogen [Mass/Vol] 37 mg/dL High 10-09 [facility] Comment on above: Performed By: #### R ENAL, MG ####[address] [place] [address] [facility] Serum or plasma anion gap de terminationOrdered By: Mina Reilly on 02-10-2023 Anion gap [Moles/Vol] 12.2 mmol/L 6.0-15.0 [facility] Sodium [Moles/volume] in Ser um or PlasmaOrdered By: Mina Reilly on 02-10-2023 Sodium [Moles/Vol] 138 mmol/L 136-145 [facility] Urea nitrogen [Mass/volume] in Serum or PlasmaOrdered By: Mina Reilly on 02-10-2023 Urea nitrogen [Mass/Vol] 37 mg/dL 10-09 [facility] Basic Metabolic Panelon 01-17 Anion gap [Moles/Vol] 13.5 mmol/L Normal 6.0-15.0 [facility] Comment on above: Performed By: #### B MP ####[place] [address] [place], [place] [address] [facility] Calcium [Mass/Vol] 10.8 mg/dL High 8.6-10.3 [facility] Comment on above: Performed By: #### B MP ####[address] [place] [address] [facility] Chloride [Moles/Vol] 96 mmol/L Low 98-107 [facility] Comment on above: Performed By: #### B MP ####[address] [place] [address] [facility] CO2 [Moles/Vol] 30.3 mmol/L Normal 21.0-31.0 [facility] Comment on above: Performed By: #### B MP ####[address] [address] [facility] Creatinine [Mass/Vol] 1.70 mg/dL High 0.70-1.30 [facility] Comment on above: Performed By: #### B MP ####[address] [address] [facility] Creatinine Clr Calc Pharmacy 55.13 [facility] Comment on above: Result Comment: PERF ORMED BY:[address] [place], [place] [phone] MEDICAL JORGE VEGA M.D. Performed By: #### B MP ####[address] [address] [place] GFR/1.73 sq M.predicted MDRD (S/P/Bld) [Vol rate/Area] 44.185 mL/min/{1.73_m2} [facility] Comment on above: Performed By: #### B MP ####[address] [address] [facility] Glucose [Mass/Vol] 198 mg/dL High 70-100 [facility] Comment on above: Result Comment: [place] Glucose Reference Range is dependent on time and content of last meal. Glucose of more than 200 mg/dL in a nonstressed, ambulatory subject supports the diagnosis of Diabetes Mellitus. ADA recommended reference range Performed By: #### B MP ####[address] [address] [facility] Potassium [Moles/Vol] 2.8 mmol/L Off scale low 3.5-5.1 [facility] Comment on above: Result Comment: Crit ical Result Called to and read back by: EMILY RODRIGUEZ at: 02/09/2023 15:32:22 by:DC Performed By: #### B MP ####[address] [address] [facility] Sodium [Moles/Vol] 137 mmol/L Normal 136-145 [facility] Comment on above: Performed By: #### B MP ####[address] [address] [facility] Urea nitrogen [Mass/Vol] 35 mg/dL High 7-25 [facility] Comment on above: Performed By: #### B MP ####[address] [address] [facility] Anion gap [Moles/Vol] 11.5 mmol/L Normal 6.0-15.0 [facility] Comment on above: Performed By: #### B MP ####[address] [address] [facility] Calcium [Mass/Vol] 10.6 mg/dL High 8.6-10.3 [facility] Comment on above: Performed By: #### B MP ####[address] [address] [place] Chloride [Moles/Vol] 95 mmol/L Low 98-107 [facility] Comment on above: Performed By: #### B MP ####[address] [address] [facility] CO2 [Moles/Vol] 33.0 mmol/L High 21.0-31.0 [facility] Comment on above: Performed By: #### B MP ####[address] [place] [address] [facility] Creatinine [Mass/Vol] 1.53 mg/dL High 0.70-1.30 [facility] Comment on above: Performed By: #### B MP ####[address] [place] [address] [place] Creatinine Clr Calc Pharmacy 61.18 [facility] Comment on above: Result Comment: PERF ORMED BY:[address] [place] [place] [phone] MEDICAL DIRECTORAPRIL VEGA M.D. Performed By: #### B MP ####[address] [address] [facility] GFR/1.73 sq M.predicted MDRD (S/P/Bld) [Vol rate/Area] 50.140 mL/min/{1.73_m2} [facility] Comment on above: Performed By: #### B MP ####[address] [address] [facility] Glucose [Mass/Vol] 112 mg/dL High 70-100 [facility] Comment on above: Result Comment: [place] Glucose Reference Range is dependent on time and content of last meal. Glucose of more than 200 mg/dL in a nonstressed, ambulatory subject supports the diagnosis of Diabetes Mellitus. ADA recommended reference range Performed By: #### B MP ####[address] [place] [address] [facility] Potassium [Moles/Vol] 2.5 mmol/L Off scale low 3.5-5.1 [facility] Comment on above: Result Comment: Crit ical Result Called to and read back by: AUDREY MATHEW at: 02/09/2023 06:34:01 by:GILBERTO Performed By: #### B MP ####[address] [address] [facility] Sodium [Moles/Vol] 137 mmol/L Normal 136-145 [facility] Comment on above: Performed By: #### B MP ####[address] [place] [address] [facility] Urea nitrogen [Mass/Vol] 36 mg/dL High 7-25 [facility] Comment on above: Performed By: #### B MP ####[address] [place] [address] [facility] Potassiumon 02-09-2023 Potassium [Moles/Vol] 3.3 mmol/L Low 3.5-5.1 [facility] Comment on above: Result Comment: PERF ORMED BY:[address] [place], [place] [id number] MEDICAL DIRECTORAPRIL VEGA M.D. Performed By: #### K ####[address] [address] [facility] Basic Metabolic Panelon 01-17 Anion gap [Moles/Vol] 11.8 mmol/L Normal 6.0-15.0 [facility] Comment on above: Performed By: #### B MP, [id number], PHOS ####[address] [address] [facility] Calcium [Mass/Vol] 10.5 mg/dL High 8.6-10.3 [facility] Comment on above: Performed By: #### B MP, [id number], PHOS ####[address] [address] [facility] Chloride [Moles/Vol] 98 mmol/L Normal 98-107 [facility] Comment on above: Performed By: #### B MP, [id number], PHOS ####[address] [address] [facility] CO2 [Moles/Vol] 30.9 mmol/L Normal 21.0-31.0 [facility] Comment on above: Performed By: #### B MP, [id number], PHOS ####[address] [address] [facility] Creatinine [Mass/Vol] 1.66 mg/dL High 0.70-1.30 [facility] Comment on above: Performed By: #### B LUCERO DIAZ PHOS ####[address] [place] [address] [facility] Creatinine Clr Calc Pharmacy 57.77 [facility] Comment on above: Performed By: #### B MARYAM [id number] PHOS ####[id number] [place] GFR/1.73 sq M.predicted MDRD (S/P/Bld) [Vol rate/Area] 45.465 mL/min/{1.73_m2} [facility] Comment on above: Performed By: #### B LUCERO DIAZ PHOS ####[address] Glucose [Mass/Vol] 80 mg/dL Normal 70-100 [facility] Comment on above: Result Comment: [facility] Glucose Reference Range is dependent on time and content of last meal. Glucose of more than 200 mg/dL in a nonstressed, ambulatory subject supports the diagnosis of Diabetes Mellitus. ADA recommended reference range Performed By: #### B LUCERO DIAZ PHOS ####[id number] [facility] Potassium [Moles/Vol] 2.7 mmol/L Off scale low 3.5-5.1 [facility] Comment on above: Result Comment: Critemi ical Result Called to and read back by: HELIO HU at: 02/08/2023 05:49:44 by:[id number] Performed By: #### B MARYAM [id number] PHOS ####[id number] [facility] Sodium [Moles/Vol] 138 mmol/L Normal 136-145 [facility] Comment on above: Performed By: #### B MARYAM [id number], PHOS ####[address] [facility] Urea nitrogen [Mass/Vol] 37 mg/dL High 7-25 [facility] Comment on above: Performed By: #### B MP, [id number], PHOS ####[address] [place] [address] [facility] ECG 12 lead ECGon 02-08-2023 ECG 12 lead ECG Normal [facility] ECH echo transthoracicon ECH echo transthoracic Normal [facility] Parathyrin.intact [Mass/volu me] in Serum or PlasmaOrdered By: Mina Reilly on 02-08-2023 Parathyrin.intact [Mass/Vol] 201.3 pg/mL [facility] Parathyroid Hormone Intacton 02-08-2023 Parathyroid Hormone Intact 201.3 pg/mL High [facility] Comment on above: Result Comment: PERF ORMED BY:[address] [place] [id number] MEDICAL DIRECTORAPRIL VEGA M.D. Performed By: #### P TH ####[address] [address] [facility] Phosphoruson 02-08-2023 Phosphate [Mass/Vol] 4.2 mg/dL Normal 2.5-4.5 [facility] Comment on above: Performed By: #### B MP, [id number], PHOS ####[address] [address] [facility] US renal BIon 02-08-2023 US renal BI Normal [facility] Vitamin D 25 Hydroxy Totalon 02-08-2023 Vitamin D 25 Hydroxy Total 43.1 ng/mL Normal 30-100 [facility] Comment on above: Result Comment: CATIE MIN D STATUS 25([place])VITAMIN D RANGE (ng/mL) Deficient <20 Insufficient 20 to <30 Sufficient 30 to 100 Reference: Laurie MF,Sravan NC, Ryne JACK, et al. Evaluation,treatment, and prevention of vitamin D deficiency; an Endocrine Society clinical practice guideline. JCEM. 2010; 96(7):1911-30.PERFORMED BY:[address] [place] [phone] MEDICAL DIRECTORAPRIL VEGA M.D. Performed By: #### B MP, [id number], PHOS ####[facility] [place] [place] [address] [facility] Vitamin D+Metabolites [Mass/ volume] in Serum or PlasmaOrdered By: Mina Reilly on 02-08-2023 Vitamin D+Metabolites [Mass/Vol] 43.1 ng/mL 30-100 [facility] Comment on above: VITAMIN D STATUS 25( [place])VITAMIN D RANGE (ng/mL) Deficient <20 Insufficient 20 to <30Sufficient 30 to 100Reference: Laurie MF,Sravan NC, Ryne JACK, et al. Evaluation,treatment, and prevention of vitamin D deficiency; an Endocrine Society clinical practice guideline. JCEM. 2010; 96(7):1911-30. Basic Metabolic Panelon 01-17 Anion gap [Moles/Vol] 12.3 mmol/L Normal 6.0-15.0 [facility] Comment on above: Performed By: #### B MP ####[facility] [place] [address] [place] Calcium [Mass/Vol] 11.1 mg/dL High 8.6-10.3 [facility] Comment on above: Performed By: #### B MP ####[facility] [place] [address] [place] Chloride [Moles/Vol] 100 mmol/L Normal 98-107 [facility] Comment on above: Performed By: #### B MP ####[facility] [facility] [place] [address] [place] CO2 [Moles/Vol] 29.3 mmol/L Normal 21.0-31.0 [facility] Comment on above: Performed By: #### B MP ####[facility] [place] [place] [address] [place] Creatinine [Mass/Vol] 1.80 mg/dL High 0.70-1.30 [facility] Comment on above: Performed By: #### B MP ####[facility] [place] [address] [facility] Creatinine Clr Calc Pharmacy 53.28 Normal [facility] Comment on above: Result Comment: PERF ORMED BY:[address] [place] [place], [place] [phone] MEDICAL DIRECTORAPRIL VEGA M.D. Performed By: #### B MP ####[id number] [facility] GFR/1.73 sq M.predicted MDRD (S/P/Bld) [Vol rate/Area] 41.256 mL/min/{1.73_m2} Normal [facility] Comment on above: Performed By: #### B MP ####[id number] [facility] Glucose [Mass/Vol] 116 mg/dL High 70-100 [facility] Comment on above: Result Comment: [facility] Glucose Reference Range is dependent on time and content of last meal. Glucose of more than 200 mg/dL in a nonstressed, ambulatory subject supports the diagnosis of Diabetes Mellitus. ADA recommended reference range Performed By: #### B MP ####[id number] [facility] Potassium [Moles/Vol] 3.6 mmol/L Significan t change down 3.5-5.1 [facility] Comment on above: Performed By: #### B MP ####[id number] [facility] Sodium [Moles/Vol] 138 mmol/L Normal 136-145 [facility] Comment on above: Performed By: #### B MP ####[address] [address] [facility] Urea nitrogen [Mass/Vol] 34 mg/dL High 7-25 [facility] Comment on above: Performed By: #### B MP ####[id number] [facility] Anion gap [Moles/Vol] 8.2 mmol/L Normal 6.0-15.0 [facility] Comment on above: Order Comment: Comme nt redraw therapy in rm with pt Performed By: #### B MP ####[address] [address] [facility] Calcium [Mass/Vol] 10.8 mg/dL High 8.6-10.3 [facility] Comment on above: Order Comment: Comme nt redraw therapy in rm with pt Performed By: #### B MP ####[address] [address] [facility] Chloride [Moles/Vol] 106 mmol/L Normal 98-107 [facility] Comment on above: Order Comment: Comme nt redraw therapy in rm with pt Performed By: #### B MP ####[address] [address] [facility] CO2 [Moles/Vol] 26.1 mmol/L Normal 21.0-31.0 [facility] Comment on above: Order Comment: Comme nt redraw therapy in rm with pt Performed By: #### B MP ####[address] [address] [facility] Creatinine [Mass/Vol] 1.42 mg/dL High 0.70-1.30 [facility] Comment on above: Order Comment: Comme nt redraw therapy in rm with pt Performed By: #### B MP ####[address] [address] [facility] Creatinine Clr Calc Pharmacy 67.53 [facility] Comment on above: Order Comment: Comme nt redraw therapy in rm with pt Result Comment: PERF ORMED BY:[address] [place] [place], [place] [phone] MEDICAL JORGE VEGA M.D. Performed By: #### B MP ####[address] [address] [facility] GFR/1.73 sq M.predicted MDRD (S/P/Bld) [Vol rate/Area] 54.836 mL/min/{1.73_m2} [facility] Comment on above: Order Comment: Comme nt redraw therapy in rm with pt Performed By: #### B MP ####[address] [place] [address] [facility] Glucose [Mass/Vol] 177 mg/dL High 70-100 [facility] Comment on above: Order Comment: Comme nt redraw therapy in rm with pt Result Comment: [place] om Glucose Reference Range is dependent on time and content of last meal. Glucose of more than 200 mg/dL in a nonstressed, ambulatory subject supports the diagnosis of Diabetes Mellitus. ADA recommended reference range Performed By: #### B MP ####[address] [place] [address] [place] Potassium [Moles/Vol] 6.3 mmol/L Off scale high 3.5-5.1 [facility] Comment on above: Order Comment: Comme nt redraw therapy in rm with pt Result Comment: Crit ical Result Called to and read back by: EMILY MCDANIELS at: 02/07/2023 11:56:44 by:JODIE Performed By: #### B MP ####[address] [place] [address] [facility] Sodium [Moles/Vol] 134 mmol/L Low 136-145 [facility] Comment on above: Order Comment: Comme nt redraw therapy in rm with pt Performed By: #### B MP ####[address] [place] [address] [place] Urea nitrogen [Mass/Vol] 31 mg/dL High 7-25 [facility] Comment on above: Order Comment: Comme nt redraw therapy in rm with pt Performed By: #### B MP ####[address] [place] [address] [place] Anion gap [Moles/Vol] 8.5 mmol/L Normal 6.0-15.0 [facility] Comment on above: Performed By: #### B MP ####[address] [place] [address] [facility] Calcium [Mass/Vol] 10.9 mg/dL High 8.6-10.3 [facility] Comment on above: Performed By: #### B MP ####[address] [place] [address] [facility] Chloride [Moles/Vol] 105 mmol/L Normal 98-107 [facility] Comment on above: Performed By: #### B MP ####[address] [place] [address] [facility] CO2 [Moles/Vol] 27.4 mmol/L Normal 21.0-31.0 [facility] Comment on above: Performed By: #### B MP ####[address] [place] [address] [facility] Creatinine [Mass/Vol] 1.40 mg/dL High 0.70-1.30 [facility] Comment on above: Performed By: #### B MP ####[address] [place] [address] [facility] Creatinine Clr Calc Pharmacy 68.50 [facility] Comment on above: Result Comment: PERF ORMED BY:[address] [place], [place] [phone] MEDICAL DIRECTORAPRIL VEGA M.D. Performed By: #### B MP ####[address] [place] [address] [facility] GFR/1.73 sq M.predicted MDRD (S/P/Bld) [Vol rate/Area] 55.778 mL/min/{1.73_m2} [facility] Comment on above: Performed By: #### B MP ####[address] [address] [facility] Glucose [Mass/Vol] 164 mg/dL High 70-100 [facility] Comment on above: Result Comment: [place] Glucose Reference Range is dependent on time and content of last meal. Glucose of more than 200 mg/dL in a nonstressed, ambulatory subject supports the diagnosis of Diabetes Mellitus. ADA recommended reference range Performed By: #### B MP ####[address] [address] [facility] Potassium [Moles/Vol] 5.9 mmol/L High 3.5-5.1 [facility] Comment on above: Performed By: #### B MP ####[facility] [place] [address] [facility] Sodium [Moles/Vol] 135 mmol/L Low 136-145 [facility] Comment on above: Performed By: #### B MP ####[facility] [place] [address] [facility] Urea nitrogen [Mass/Vol] 29 mg/dL High 7-25 [facility] Comment on above: Performed By: #### B MP ####[address] [place] [id number] [facility] Creatinine [Mass/volume] in UrineOrdered By: Mina Reilly on 02-07-2023 Creatinine (U) [Mass/Vol] 12.0 mg/dL 14.0-26.0 [facility] Creatinine, Urine (Random)on 02-07-2023 Creatinine, Urine (Random) 12.0 mg/dL Low 14.0-26.0 [facility] Comment on above: Performed By: #### U NA, , UCREA ####[address] [place] [id number] [facility] Glucose Glucometer (BldC) [M ass/Vol]Ordered By: Barry Cisneros on 02-07-2023 Glucose [Mass/Vol] 117 mg/dL [facility] Comment on above: Random Glucose Refer ence Range is dependent on time and content of last meal. Glucose of more than 200 mg/dL in a nonstressed, ambulatory subject supports the diagnosis of Diabetes Mellitus. Glucose Poct Glucometerson 1 04-09-2022 Glucose [Mass/Vol] 117 mg/dL Normal [facility] Comment on above: Result Comment: [place] Glucose Reference Range is dependent on time and content of last meal. Glucose of more than 200 mg/dL in a nonstressed, ambulatory subject supports the diagnosis of Diabetes Mellitus.PERFORMED BY:[id number] [place] [phone] MEDICAL DIRECTORAPRIL VEGA M.D. Performed By: #### G OZZY ####Point of Care testing, Glucose [Mass/Vol] 63 mg/dL Normal [facility] Comment on above: Result Comment: [place] Glucose Reference Range is dependent on time and content of last meal. Glucose of more than 200 mg/dL in a nonstressed, ambulatory subject supports the diagnosis of Diabetes Mellitus.PERFORMED BY:[address] [place] [place] [phone] MEDICAL JORGE VEGA M.D. Performed By: #### G OZZY ####Point of Care testing, Potassium [Moles/volume] in UrineOrdered By: Mina Reilly on 02-07-2023 Potassium (U) [Moles/Vol] 70.6 mmol/L [facility] Comment on above: No reference range e stablished Potassium, Urine (Random)on 02-07-2023 Potassium, Urine (Random) 70.6 mmol/L [facility] Comment on above: Result Comment: No r eference range establishedPERFORMED BY:[address] [place], [place] [phone] MEDICAL JORGE VEGA M.D. Performed By: #### U UK DIGNA, UCREA ####[address] [address] [facility] Sodium [Moles/volume] in Uri neOrdered By: Mina Reilly on 02-07-2023 Sodium (U) [Moles/Vol] 63 mmol/L [facility] Comment on above: No reference range e stablished Sodium, Urine (Random)on Sodium (U) [Moles/Vol] 63 mmol/L [facility] Comment on above: Result Comment: No r eference range established Performed By: #### U NA, UK, UCREA ####[address] [address] [facility] Activated partial thrombopla stin time (aPTT) in platelet poor plasma by coagulation aOrdered By: Bobby Bernabe on 02-06-2023 aPTT Coag (PPP) [Time] 31.1 s 25.1-36.5 [facility] Comment on above: A hematocrit value g reater than 55% may lead to inaccurate results in coagulation testing. Patients having hematocrit values >55% require a special collection tube for coagulation studies. Please contact the laboratory at [phone] for redraw instructions. Alanine aminotransferase [En zymatic activity/volume] in Serum or PlasmaOrdered By: Bobby Bernabe on 02-06-2023 ALT [Catalytic activity/Vol] 16 U/L 7-52 [facility] Albumin [Mass/volume] in Ser um or Plasma by Bromocresol green (BCG) dye binding methoOrdered By: Bobby Bernabe on 02-06-2023 Albumin BCG dye [Mass/Vol] 4.1 g/dL 3.5-5.7 [facility] Alkaline phosphatase [Enzyma tic activity/volume] in Serum or PlasmaOrdered By: Bobby Bernabe on 02-06-2023 ALP [Catalytic activity/Vol] 108 U/L 34-104 [facility] Ammoniaon 02-06-2023 Ammonia (P) [Moles/Vol] 20 umol/L Normal [facility] Comment on above: Result Comment: PERF ORMED BY:[address] [place], [place] [phone] MEDICAL DIRECTORAPRIL VEGA M.D. Performed By: #### P TT, TSH3, PT, MG, CK, AMM, BNP, CMP, HS TROP ####[facility] [address] [place] [address] [facility] Ammonia [Moles/volume] in Pl asmaOrdered By: Bobby Bernabe on 02-06-2023 Ammonia (P) [Moles/Vol] 20 umol/L [facility] Aspartate aminotransferase [ Enzymatic activity/volume] in Serum or PlasmaOrdered By: Bobby Bernabe on 02-06-2023 AST [Catalytic activity/Vol] 21 U/L 13-39 [facility] B-Type Natriuretic Peptideon 02-06-2023 Natriuretic peptide B (Bld) [Mass/Vol] 151.0 pg/mL High 5-100 [facility] Comment on above: Result Comment: PERF ORMED BY:[facility] [place] [place], [place] [phone] MEDICAL DIRECTORAPRIL VEGA M.D. Performed By: #### P TT, TSH3, PT, MG, CK, AMM, BNP, CMP, HS TROP ####[facility] [address] [place] [address] [facility] Basophils Auto (Bld) [#/Vol] Ordered By: Bobby Bernabe on 02-06-2023 Basophils (Bld) [#/Vol] 0.1 10*3/uL 0.0-0.2 [facility] Basophils/100 WBC Auto (Bld) Ordered By: Bobby Bernabe on 02-06-2023 Basophils/100 WBC (Bld) 0.9 % . [facility] Bilirubin Auto test strip Ql (U)Ordered By: Bobby Bernabe on 02-06-2023 Bilirubin Ql (U) Negative Negative [facility] Bilirubin.total [Mass/volume ] in Serum or PlasmaOrdered By: Bobby Bernabe on 02-06-2023 Bilirubin [Mass/Vol] 0.6 mg/dL 0.3-1.0 [facility] COVID CepheidOrdered By: Pao Bernabe on 02-06-2023 SARS-CoV-2 (COVID-19) Ab IA Ql Negative Negative [facility] Comment on above: This is a duplicate CepCV-Sight Xpert Xpress CoV-2/Flu/RSV Plus RNA by RT-PCR result to be used for statistical tracking purpose only. SARS-CoV-2 (COVID-19) RNA EMILY+probe Ql (Unsp spec) [facility] COVID-19 / Flu A/B / RSV PCR on 02-06-2023 SARS-CoV-2 (COVID-19) RNA EMILY+probe Ql (Unsp spec) Normal [facility] Comment on above: Performed By: #### C EPHEID NEG, COVID19 FLU RSV ####[facility] [address] [place] [address] [facility] Calcium [Mass/volume] in Ser um or PlasmaOrdered By: Bobby Bernabe on 02-06-2023 Calcium [Mass/Vol] 11.3 mg/dL 8.6-10.3 [facility] Carbon dioxide, total [Moles /volume] in Serum or PlasmaOrdered By: Bobby Dobbscatherine on 02-06-2023 CO2 [Moles/Vol] 28.3 mmol/L 21.0-31.0 [facility] Cepheid COVID PCR Negativeon 02-06-2023 SARS-CoV-2 (COVID-19) RNA EMILY+probe Ql (Unsp spec) Negative Normal Negative [facility] Comment on above: Result Comment: This is a duplicate Cepheid Xpert Xpress CoV-2/Flu/RSV Plus RNA by RT-PCR result to be used for statistical tracking purpose only.PERFORMED BY:[address] [address] [place], [place] [id number] MEDICAL DIRECTORAPRIL VEGA M.D. Performed By: #### C EPHEID NEG, COVID19 FLU RSV ####[address] [address] [place] Chloride [Moles/volume] in [place] or PlasmaOrdered By: Bobby Bernabe on 02-06-2023 Chloride [Moles/Vol] 104 mmol/L 98-107 [facility] Complete Blood Count Auto Di ffon 02-06-2023 Basophils (Bld) [#/Vol] 0.1 10*3/uL Normal 0.0-0.2 [facility] Comment on above: Result Comment: PERF ORMED BY:[place] [address] [place], [place] [phone] MEDICAL DIRECTORAPRIL VEGA M.D. Performed By: #### C BC ####[address] [address] [place] Basophils/100 WBC (Bld) 0.9 % Normal . [facility] Comment on above: Performed By: #### C BC ####[address] [address] [facility] Eosinophils (Bld) [#/Vol] 0.3 10*3/uL Normal 0.0-0.45 [facility] Comment on above: Performed By: #### C BC ####[address] Eosinophils/100 WBC (Bld) 5.4 % Normal . [facility] Comment on above: Performed By: #### C BC ####[address] Erythrocyte distribution width (RBC) [Ratio] 16.0 % High 12.0-14.8 [facility] Comment on above: Performed By: #### C BC ####[address] Hematocrit (Bld) [Volume fraction] 39.3 % Normal 38.8-50.0 [facility] Comment on above: Performed By: #### C BC ####[address] Hemoglobin (Bld) [Mass/Vol] 13.0 g/dL Normal 13.0-17.0 [facility] Comment on above: Performed By: #### C BC ####[address] Lymphocytes (Bld) [#/Vol] 0.9 10*3/uL Low 1.00-4.8 [facility] Comment on above: Performed By: #### C BC ####[place] [id number] [facility] Lymphocytes/100 WBC (Bld) 16.3 % Normal . [facility] Comment on above: Performed By: #### C BC ####[place] [id number] [facility] MCH (RBC) [Entitic mass] 28.0 pg Normal 27.5-35.2 [facility] Comment on above: Performed By: #### C BC ####[place] [id number] [facility] MCV (RBC) [Entitic vol] 85.0 fL Normal 83.5-101 [facility] Comment on above: Performed By: #### C BC ####[address] [address] [facility] Mean Corpuscular HGB Conc 33.0 g/dL Normal 32.5-35.6 [facility] Comment on above: Performed By: #### C BC ####[address] [address] [facility] Monocytes (Bld) [#/Vol] 0.6 10*3/uL Normal 0.0-0.8 [facility] Comment on above: Performed By: #### C BC ####[address] [address] [facility] Monocytes/100 WBC (Bld) 15.78 % Normal 0.00-20.00 [facility] Comment on above: Performed By: #### C BC ####[address] [address] [facility] Monocytes/100 WBC (Bld) 10.8 % Normal . [facility] Comment on above: Performed By: #### C BC ####[address] [address] [facility] Neutrophils (Bld) [#/Vol] 3.7 10*3/uL Normal 1.8-7.7 [facility] Comment on above: Performed By: #### C BC ####[address] [address] [facility] Neutrophils/100 WBC (Bld) 66.6 % Normal . [facility] Comment on above: Performed By: #### C BC ####[address] [address] [facility] NRBC% 0.1 /100{WBC} Normal 0-0.5 [facility] Comment on above: Performed By: #### C BC ####[address] [address] [facility] Platelet mean volume (Bld) [Entitic vol] 6.9 fL Normal 6.6-10.1 [facility] Comment on above: Performed By: #### C BC ####[address] Platelets (Bld) [#/Vol] 228 10*3/uL Normal 150-450 [facility] Comment on above: Performed By: #### C BC ####[address] RBC (Bld) [#/Vol] 4.62 10*6/uL Normal 3.90-5.60 [facility] Comment on above: Performed By: #### C BC ####[address] WBC (Bld) [#/Vol] 5.6 10*3/uL Normal 4.1-10.5 [facility] Comment on above: Performed By: #### C BC ####[address] Comprehensive Metabolic Pane anny 02-06-2023 Albumin [Mass/Vol] 4.1 g/dL Normal 3.5-5.7 [facility] Comment on above: Performed By: #### P TT, TSH3, PT, MG, CK, AMM, BNP, CMP, HS TROP ####[address] Albumin/Globulin [Mass ratio] 1.2 {ratio} Normal [facility] Comment on above: Performed By: #### P TT, TSH3, PT, MG, CK, AMM, BNP, CMP, HS TROP ####[address] ALP [Catalytic activity/Vol] 108 U/L High 34-104 [facility] Comment on above: Performed By: #### P TT, TSH3, PT, MG, CK, AMM, BNP, CMP, HS TROP ####[address] ALT [Catalytic activity/Vol] 16 U/L Normal 7-52 [facility] Comment on above: Performed By: #### P TT, TSH3, PT, MG, CK, AMM, BNP, CMP, HS TROP ####[place] [id number] [facility] Anion gap [Moles/Vol] 9.3 mmol/L Normal 6.0-15.0 [facility] Comment on above: Performed By: #### P TT, TSH3, PT, MG, CK, AMM, BNP, CMP, HS TROP ####[place] [id number] [facility] AST [Catalytic activity/Vol] 21 U/L Normal 13-39 [facility] Comment on above: Performed By: #### P TT, TSH3, PT, MG, CK, AMM, BNP, CMP, HS TROP ####[address] Bilirubin [Mass/Vol] 0.6 mg/dL Normal 0.3-1.0 [facility] Comment on above: Performed By: #### P TT, TSH3, PT, MG, CK, AMM, BNP, CMP, HS TROP ####[address] Calcium [Mass/Vol] 11.3 mg/dL High 8.6-10.3 [facility] Comment on above: Performed By: #### P TT, TSH3, PT, MG, CK, AMM, BNP, CMP, HS TROP ####[place] [id number] [facility] Chloride [Moles/Vol] 104 mmol/L Normal 98-107 [facility] Comment on above: Performed By: #### P TT, TSH3, PT, MG, CK, AMM, BNP, CMP, HS TROP ####[place] [id number] [facility] CO2 [Moles/Vol] 28.3 mmol/L Normal 21.0-31.0 [facility] Comment on above: Performed By: #### P TT, TSH3, PT, MG, CK, AMM, BNP, CMP, HS TROP ####[address] Creatinine [Mass/Vol] 1.31 mg/dL High 0.70-1.30 [facility] Comment on above: Performed By: #### P TT, TSH3, PT, MG, CK, AMM, BNP, CMP, HS TROP ####[address] Creatinine Clr Calc Pharmacy 73.09 [facility] Comment on above: Performed By: #### P TT, TSH3, PT, MG, CK, AMM, BNP, CMP, HS TROP ####[address] GFR/1.73 sq M.predicted MDRD (S/P/Bld) [Vol rate/Area] mL/min/{1.73_m2} [facility] Comment on above: Performed By: #### P TT, TSH3, PT, MG, CK, AMM, BNP, CMP, HS TROP ####[address] Globulin (S) [Mass/Vol] 3.4 g/dL [facility] Comment on above: Performed By: #### P TT, TSH3, PT, MG, CK, AMM, BNP, CMP, HS TROP ####[address] Glucose [Mass/Vol] 164 mg/dL High 70-100 [facility] Comment on above: Result Comment: [place] Glucose Reference Range is dependent on time and content of last meal. Glucose of more than 200 mg/dL in a nonstressed, ambulatory subject supports the diagnosis of Diabetes Mellitus. ADA recommended reference range Performed By: #### P TT, TSH3, PT, MG, CK, AMM, BNP, CMP, HS TROP ####[address] Potassium [Moles/Vol] 4.6 mmol/L Normal 3.5-5.1 [facility] Comment on above: Performed By: #### P TT, TSH3, PT, MG, CK, AMM, BNP, CMP, HS TROP ####[address] Protein [Mass/Vol] 7.5 g/dL Normal 6.4-8.9 [facility] Comment on above: Performed By: #### P TT, TSH3, PT, MG, CK, AMM, BNP, CMP, HS TROP ####[address] Sodium [Moles/Vol] 137 mmol/L Normal 136-145 [facility] Comment on above: Performed By: #### P TT, TSH3, PT, MG, CK, AMM, BNP, CMP, HS TROP ####[address] Urea nitrogen [Mass/Vol] 29 mg/dL High 7-25 [facility] Comment on above: Performed By: #### P TT, TSH3, PT, MG, CK, AMM, BNP, CMP, HS TROP ####[address] Creatine Kinaseon 02-06-2023 CK [Catalytic activity/Vol] 107 U/L Normal [facility] Comment on above: Performed By: #### P TT, TSH3, PT, MG, CK, AMM, BNP, CMP, HS TROP ####[address] Creatine kinase [Enzymatic a ctivity/volume] in Serum or PlasmaOrdered By: Bobby Bernabe on 02-06-2023 CK [Catalytic activity/Vol] 107 U/L [facility] Creatinine [Mass/volume] in Serum or PlasmaOrdered By: Bobby Bernabe on 02-06-2023 Creatinine [Mass/Vol] 1.31 mg/dL 0.70-1.30 [facility] ECG 12 lead ECGon 02-06-2023 ECG 12 lead ECG Normal [facility] ECG 12 lead ECG Normal [facility] ECG 12 lead ECG Normal [facility] Eosinophils Auto (Bld) [#/Vo l]Ordered By: Bobby Bernabe on 02-06-2023 Eosinophils (Bld) [#/Vol] 0.3 10*3/uL 0.0-0.45 [facility] Eosinophils/100 WBC Auto (Bl d)Ordered By: Bobby Bernabe on 02-06-2023 Eosinophils/100 WBC (Bld) 5.4 % . [facility] Erythrocyte distribution wid th Auto (RBC) [Ratio]Ordered By: Bobby Bernabe on 02-06-2023 Erythrocyte distribution width (RBC) [Ratio] 16.0 % 12.0-14.8 [facility] Globulin Calc (S) [Mass/Vol] Ordered By: Bobby Bernabe on 02-06-2023 Globulin (S) [Mass/Vol] 3.4 g/dL [facility] Glucose Glucometer (BldC) [M ass/Vol]Ordered By: Bobby Bernabe on 02-06-2023 Glucose [Mass/Vol] 144 mg/dL [facility] Comment on above: Random Glucose Refer ence Range is dependent on time and content of last meal. Glucose of more than 200 mg/dL in a nonstressed, ambulatory subject supports the diagnosis of Diabetes Mellitus. Glucose Poct Glucometerson 1 04-08-2022 Glucose [Mass/Vol] 144 mg/dL Normal [facility] Comment on above: Result Comment: [place] Glucose Reference Range is dependent on time and content of last meal. Glucose of more than 200 mg/dL in a nonstressed, ambulatory subject supports the diagnosis of Diabetes Mellitus.PERFORMED BY:[facility] [place], [place] [phone] MEDICAL DIRECTORAPRIL VEGA M.D. Performed By: #### G LUSEE ####Point of Care testing, Glucose [Mass/volume] in Ser um or PlasmaOrdered By: Bobby Bernabe on 02-06-2023 Glucose [Mass/Vol] 164 mg/dL 70-100 [facility] Comment on above: ADA recommended refe rence rangeRandom Glucose Reference Range is dependent on time and content of last meal. Glucose of more than 200 mg/dL in a nonstressed, ambulatory subject supports the diagnosis of Diabetes Mellitus. Hematocrit Auto (Bld) [Volum e fraction]Ordered By: Bobby Bernabe on 02-06-2023 Hematocrit (Bld) [Volume fraction] 39.3 % 38.8-50.0 [facility] Hemoglobin [Mass/volume] in BloodOrdered By: Bobby Bernabe on 02-06-2023 Hemoglobin (Bld) [Mass/Vol] 13.0 g/dL 13.0-17.0 [facility] INR in Platelet poor plasma by Coagulation assayOrdered By: Bobby Bernabe on 02-06-2023 INR Coag (PPP) [Relative time] 1.0 {INR} [facility] Comment on above: INR Therapeutic Rang [...] on 02-06-2023 Ketones (U) [Mass/Vol] Negative Negative [facility] Laboratory - Chemistry and C hemistry - challengeOrdered By: Bobby Bernabe on 02-06-2023 CO2 [Moles/Vol] 25.5 mmol/L 24.0-29.0 [facility] HCO3 (Bld) [Moles/Vol] 24.0 mmol/L 23.0-29.0 [facility] Leukocytes [#/volume] correc martin for nucleated erythrocytes in Blood by Automated counOrdered By: Bobby Bernabe on 02-06-2023 WBC corrected for nucl RBC Auto (Bld) [#/Vol] 5.6 10*3/uL 4.1-10.5 [facility] Lymphocytes Auto (Bld) [#/Vo l]Ordered By: Bobby Bernabe on 02-06-2023 Lymphocytes (Bld) [#/Vol] 0.9 10*3/uL 1.00-4.8 [facility] Lymphocytes/100 WBC Auto (Bl d)Ordered By: Bobby Bernabe on 02-06-2023 Lymphocytes/100 WBC (Bld) 16.3 % . [facility] MCH Auto (RBC) [Entitic mass ]Ordered By: Bobby Bernabe on 02-06-2023 MCH (RBC) [Entitic mass] 28.0 pg 27.5-35.2 [facility] MCHC Auto (RBC) [Mass/Vol]Or dered By: Bobby Bernabe on 02-06-2023 MCHC (RBC) [Mass/Vol] 33.0 g/dL 32.5-35.6 [facility] MCV Auto (RBC) [Entitic vol] Ordered By: Bobby Bernabe on 02-06-2023 MCV (RBC) [Entitic vol] 85.0 fL 83.5-101 [facility] Magnesiumon 02-06-2023 Magnesium [Mass/Vol] 1.6 mg/dL Low 1.9-2.7 [facility] Comment on above: Performed By: #### P TT, TSH3, PT, MG, CK, AMM, BNP, CMP, HS TROP ####[facility] [id number] Magnesium [Mass/volume] in [place] or PlasmaOrdered By: Bobby Bernabe on 02-06-2023 Magnesium [Mass/Vol] 1.6 mg/dL 1.9-2.7 [facility] Monocyte distribution width [Entitic volume] in Blood by AutomatedOrdered By: Bobby Bernabe on 02-06-2023 Monocyte distribution width Auto (Bld) [Entitic vol] 15.78 % 0.00-20.00 [facility] Monocytes Auto (Bld) [#/Vol] Ordered By: Bobby Bernabe on 02-06-2023 Monocytes (Bld) [#/Vol] 0.6 10*3/uL 0.0-0.8 [facility] Monocytes/100 WBC Auto (Bld) Ordered By: Bobby Bernabe on 02-06-2023 Monocytes/100 WBC (Bld) 10.8 % . [facility] Natriuretic peptide B [Mass/ Vol]Ordered By: Bobby Bernabe on 02-06-2023 Natriuretic peptide B (Bld) [Mass/Vol] 151.0 pg/mL 5-100 [facility] Neutrophils Auto (Bld) [#/Vo l]Ordered By: Bobby Bernabe on 02-06-2023 Neutrophils (Bld) [#/Vol] 3.7 10*3/uL 1.8-7.7 [facility] Neutrophils/100 WBC Auto (Bl d)Ordered By: Bobby Bernabe on 02-06-2023 Neutrophils/100 WBC (Bld) 66.6 % . [facility] No Panel InformationOrdered By: Bobby Bernabe on 02-06-2023 Blood Gas Critical Value See comment [facility] Comment on above: Critical Value de guzman d on: 02/06/2023 at 13:24 Blood Gas Sample Site Venous Fir [facility] FiO2 Na % [facility] Venous Blood Base Excess -2.8 mmol/L -3.0-3.0 [facility] Venous Blood Oxygen Content 4.4 mmol/L 6.6-9.7 [facility] Venous Blood Oxygen Saturation 51.4 % 73.0-76.0 [facility] Venous Blood Partial Pressure CO2 49.0 mm[Hg] 38.0-50.0 [facility] Venous Blood Partial Pressure O2 28.8 mm[Hg] 35.0-45.0 [facility] Venous Blood pH 7.31 7.32-7.43 [facility] Estimated GFR (CKD-EPI) > 60.0 mL/Min [facility] Creatinine Clearance (Chem 73.09 [facility] Nucleated erythrocytes [Pres ence] in Blood by Automated countOrdered By: Bobby Bernabe on 02-06-2023 Nucleated RBC Auto Ql (Bld) 0.1 /100{WBC} 0-0.5 [facility] Partial Thromboplastin Timeo n 02-06-2023 aPTT Coag (Bld) [Time] 31.1 s Normal 25.1-36.5 [facility] Comment on above: Result Comment: A he matocrit value greater than 55% may lead to inaccurate results in coagulation testing. Patients having hematocrit values >55% require a special collection tube for coagulation studies. Please contact the laboratory at [phone] for redraw instructions.PERFORMED BY:[facility] [place], [place] [phone] MEDICAL DIRECTORAPRIL VEGA M.D. Performed By: #### P TT, TSH3, PT, MG, CK, AMM, BNP, CMP, HS TROP ####[facility] [place] [id number] [facility] Platelet mean volume Auto (B ld) [Entitic vol]Ordered By: Bobby eBrnabe on 02-06-2023 Platelet mean volume (Bld) [Entitic vol] 6.9 fL 6.6-10.1 [facility] Platelets Auto (Bld) [#/Vol] Ordered By: Bobby Bernabe on 02-06-2023 Platelets (Bld) [#/Vol] 228 10*3/uL 150-450 [facility] Potassium [Moles/volume] in Serum or PlasmaOrdered By: Bobby Bernabe on 02-06-2023 Potassium [Moles/Vol] 4.6 mmol/L 3.5-5.1 [facility] Protein Auto test strip (U) [Mass/Vol]Ordered By: Bobby Bernabe on 02-06-2023 Protein (U) [Mass/Vol] Negative Negative [facility] Protein [Mass/volume] in Ser um or PlasmaOrdered By: Bobby Bernabe on 02-06-2023 Protein [Mass/Vol] 7.5 g/dL 6.4-8.9 [facility] Prothrombin Time INRon 02-06 INR Coag (PPP) [Relative time] 1.0 {INR} Normal [facility] Comment on above: Result Comment: INR [...] MG, CK, AMM, BNP, CMP, HS TROP ####[facility] [place] [id number] [facility] PT Coag (PPP) [Time] 11.5 s Normal 9.0-12.9 [facility] Comment on above: Result Comment: A he matocrit value greater than 55% may lead to inaccurate results in coagulation testing. Patients having hematocrit values >55% require a special collection tube for coagulation studies. Please contact the laboratory at [phone] for redraw instructions. Performed By: #### P TT, TSH3, PT, MG, CK, AMM, BNP, CMP, HS TROP ####[facility] [place] [address] [place] Prothrombin time (PT)Ordered By: Bobby Bernabe on 02-06-2023 PT Coag (PPP) [Time] 11.5 s 9.0-12.9 [facility] Comment on above: A hematocrit value g reater than 55% may lead to inaccurate results in coagulation testing. Patients having hematocrit values >55% require a special collection tube for coagulation studies. Please contact the laboratory at [phone] for redraw instructions. RBC Auto (Bld) [#/Vol]Ordere d By: Bobby Bernabe on 02-06-2023 RBC (Bld) [#/Vol] 4.62 10*6/uL 3.90-5.60 [facility] Serum or plasma albumin/glob ulin mass ratioOrdered By: Bobby Bernabe on 02-06-2023 Albumin/Globulin [Mass ratio] 1.2 {ratio} [facility] Serum or plasma anion gap de terminationOrdered By: Bobby Bernabe on 02-06-2023 Anion gap [Moles/Vol] 9.3 mmol/L 6.0-15.0 [facility] Sodium [Moles/volume] in Ser um or PlasmaOrdered By: Bobby Bernabe on 02-06-2023 Sodium [Moles/Vol] 137 mmol/L 136-145 [facility] Thyroid Stimulating Hormoneo n 02-06-2023 TSH Qn 4.68 m[IU]/L Normal 0.45-5.33 [facility] Comment on above: Result Comment: PERF ORMED BY:[facility] [place] [place], [place] [phone] MEDICAL DIRECTORAPRIL VEGA M.D. Performed By: #### P TT, TSH3, PT, MG, CK, AMM, BNP, CMP, HS TROP ####[facility] [place] [address] [facility] Thyrotropin [Units/volume] i n Serum or PlasmaOrdered By: Bobby Bernabe on 02-06-2023 TSH Qn 4.68 m[IU]/L 0.45-5.33 [facility] Troponin I High Sensitivityo n 02-06-2023 Troponin I High Sensitivity 12.8 pg/mL Normal 0.0-20.0 [facility] Comment on above: Result Comment: PERF ORMED BY:[address] [place], [place] [phone] MEDICAL DIRECTORAPRIL VEGA M.D. Performed By: #### P TT, TSH3, PT, MG, CK, AMM, BNP, CMP, HS TROP ####[address] [address] [facility] Troponin I.cardiac [Mass/vol ume] in Serum or Plasma by Detection limit <= 0.01 ng/Ordered By: Bobby Bernabe on 02-06-2023 Troponin I.cardiac DL <= 0.01 ng/mL [Mass/Vol] 12.8 pg/mL 0.0-20.0 [facility] Urea nitrogen [Mass/volume] in Serum or PlasmaOrdered By: Bobby Bernabe on 02-06-2023 Urea nitrogen [Mass/Vol] 29 mg/dL 7 [facility] Urinalysison 02-06-2023 Appearance (U) Clear Normal Clear [facility] Comment on above: Order Comment: Name Collection Type:: Clean-Voided Midstream Performed By: #### U A ####[address] [address] [facility] Bilirubin,Urine Negative Normal Negative [facility] Comment on above: Order Comment: Name Collection Type:: Clean-Voided Midstream Performed By: #### U A ####[address] [address] [facility] Color (U) Colorless Normal Yellow [facility] Comment on above: Order Comment: Name Collection Type:: Clean-Voided Midstream Performed By: #### U A ####[address] [address] [facility] Glucose Ql (U) Normal Normal Normal [facility] Comment on above: Order Comment: Name Collection Type:: Clean-Voided Midstream Performed By: #### U A ####[address] [address] [facility] Ketones Ql (U) Negative Normal Negative [facility] Comment on above: Order Comment: Name Collection Type:: Clean-Voided Midstream Performed By: #### U A ####[address] [address] [facility] Leukocyte esterase Test strip Ql (U) Negative Normal Negative [facility] Comment on above: Order Comment: Name Collection Type:: Clean-Voided Midstream Performed By: #### U A ####[address] [address] [facility] Nitrite,Urine Negative Normal Negative [facility] Comment on above: Order Comment: Name Collection Type:: Clean-Voided Midstream Performed By: #### U A ####[address] [address] [facility] Occult Blood,Urine Negative Normal Negative [facility] Comment on above: Order Comment: Name Collection Type:: Clean-Voided Midstream Result Comment: PERF ORMED BY:[address] [place], [place] [phone] MEDICAL JORGE VEGA M.D. Performed By: #### U A ####[address] [address] [facility] pH (U) 5.5 [pH] Normal 5.0-9.0 [facility] Comment on above: Order Comment: Name Collection Type:: Clean-Voided Midstream Performed By: #### U A ####[address] [address] [facility] Protein,Urine Negative Normal Negative [facility] Comment on above: Order Comment: Name Collection Type:: Clean-Voided Midstream Performed By: #### U A ####[address] [address] [facility] Specificy [place],Urine 1.010 Normal 1.001-1.03 0 [facility] Comment on above: Order Comment: Name Collection Type:: Clean-Voided Midstream Performed By: #### U A ####[facility] [id number] [place] [id number] [facility] Urobilinogen,Urine Normal Normal Normal [facility] Comment on above: Order Comment: Name Collection Type:: Clean-Voided Midstream Performed By: #### U A ####[facility] [id number] [place] [id number] [facility] Urine appearanceOrdered By: Bobby Bernabe on 02-06-2023 Appearance (U) Clear Clear [facility] Urine colorOrdered By: Suly Bernabe on 02-06-2023 Color (U) Colorless Yellow [facility] Urine glucose measurement by automated test strip (mass/volume)Ordered By: Bobby Bernabe on 02-06-2023 Glucose Auto test strip (U) [Mass/Vol] Normal mg/dL Normal [facility] Urine hemoglobin detection b y automated test stripOrdered By: Bobby Bernabe on 02-06-2023 Hemoglobin Auto test strip Ql (U) Negative Negative [facility] Urine leukocyte esterase det ection by automated test stripOrdered By: Bobby Bernabe on 02-06-2023 Leukocyte esterase Auto test strip Ql (U) Negative Negative [facility] Urine nitrite detection by a utomated test stripOrdered By: Bobby Bernabe on 02-06-2023 Nitrite Auto test strip Ql (U) Negative Negative [facility] Urobilinogen Auto test strip (U) [Mass/Vol]Ordered By: Bobby Bernabe on 02-06-2023 Urobilinogen (U) [Mass/Vol] Normal mg/dL Normal [facility] Venous Blood Gason 3 CO2 [Moles/Vol] 25.5 mmol/L Normal 24.0-29.0 [facility] Comment on above: Performed By: #### V BG ####Point of Care testing, HCO3 (Bld) [Moles/Vol] 24.0 mmol/L Normal 23.0-29.0 [facility] Comment on above: Performed By: #### V BG ####Point of Care testing, Respiratory Critical Normal [facility] Comment on above: Result Comment: Crit ical Value called on: 02/06/2023 at 13:24PERFORMED BY:[facility] [place], [place] [phone] MEDICAL DIRECTORAPRIL VEGA M.D. Performed By: #### V BG ####Point of Care testing, VBG Base Excess -2.8 mmol/L Normal -3.0-3.0 [facility] Comment on above: Performed By: #### V BG ####Point of Care testing, VBG Draw Site Venous Normal [facility] Comment on above: Performed By: #### V BG ####Point of Care testing, VBG Frac Inspired O2 Normal [facility] Comment on above: Performed By: #### V BG ####Point of Care testing, VBG O2 Content 4.4 mmol/L Low 6.6-9.7 [facility] Comment on above: Performed By: #### V BG ####Point of Care testing, VBG Oxygen Saturation 51.4 % Off scale low 73.0-76.0 [facility] Comment on above: Performed By: #### V BG ####Point of Care testing, VBG PCO2 49.0 mm[Hg] Normal 38.0-50.0 [facility] Comment on above: Performed By: #### V BG ####Point of Care testing, VBG PH Venous PH 7.31 Low 7.32-7.43 [facility] Comment on above: Performed By: #### V BG ####Point of Care testing, VBG PO2 28.8 mm[Hg] Low 35.0-45.0 [facility] Comment on above: Performed By: #### V BG ####Point of Care testing, WBC Auto (Bld) [#/Vol]Ordere d By: Bobby Bernabe on 02-06-2023 WBC (Bld) [#/Vol] 5.6 10*3/uL 4.1-10.5 [facility] XR chest 2V*on 02-06-2023 XR chest 2V* Normal [facility] pH Auto test strip (U)Ordere d By: Bobby Bernabe on 02-06-2023 pH (U) 1.010 [pH] 1.001-1.03 0 [facility] pH (U) 5.5 [pH] 5.0-9.0 [facility] NM bone 3 phaseon 01-28-2023 NM bone 3 phase Normal [facility] [place] esophaguson 01-14-2023 [place] esophagus Normal [facility] Basic Metabolic Panelon Anion gap [Moles/Vol] 12.3 mmol/L Normal 6.0-15.0 [facility] Comment on above: Performed By: #### B MP ####[address] [address] [facility] Calcium [Mass/Vol] 12.0 mg/dL High 8.6-10.3 [facility] Comment on above: Result Comment: PERF ORMED BY:[address] [place], [place] [id number] MEDICAL DIRECTORAPRIL VEGA M.D. Performed By: #### B MP ####[address] [address] [facility] Chloride [Moles/Vol] 99 mmol/L Normal 98-107 [facility] Comment on above: Performed By: #### B MP ####[address] [address] [facility] CO2 [Moles/Vol] 33.7 mmol/L High 21.0-31.0 [facility] Comment on above: Performed By: #### B MP ####[address] [address] [facility] Creatinine [Mass/Vol] 1.32 mg/dL High 0.70-1.30 [facility] Comment on above: Performed By: #### B MP ####[address] [address] [facility] GFR/1.73 sq M.predicted MDRD (S/P/Bld) [Vol rate/Area] 59.858 mL/min/{1.73_m2} Normal [facility] Comment on above: Performed By: #### B MP ####[address] Glucose [Mass/Vol] 108 mg/dL High 70-100 [facility] Comment on above: Result Comment: [facility] Glucose Reference Range is dependent on time and content of last meal. Glucose of more than 200 mg/dL in a nonstressed, ambulatory subject supports the diagnosis of Diabetes Mellitus. ADA recommended reference range Performed By: #### B MP ####[place] [id number] [address] Potassium [Moles/Vol] 4.0 mmol/L Normal 3.5-5.1 [facility] Comment on above: Performed By: #### B MP ####[address] Sodium [Moles/Vol] 141 mmol/L Normal 136-145 [facility] Comment on above: Performed By: #### B MP ####[place] [id number] [facility] Urea nitrogen [Mass/Vol] 32 mg/dL High 7-25 [facility] Comment on above: Performed By: #### B MP ####[address] Calcium [Mass/volume] in Ser um or PlasmaOrdered By: Stephanie Burgess on 12-19-2022 Calcium [Mass/Vol] 12.0 mg/dL 8.6-10.3 [facility] Carbon dioxide, total [Moles /volume] in Serum or PlasmaOrdered By: Stephanie Burgess on 12-19-2022 CO2 [Moles/Vol] 33.7 mmol/L 21.0-31.0 [facility] Chloride [Moles/volume] in S elmira or PlasmaOrdered By: Stephanie Burgess on 12-19-2022 Chloride [Moles/Vol] 99 mmol/L 98-107 [facility] Creatinine [Mass/volume] in Serum or PlasmaOrdered By: Stephanie Burgess on 12-19-2022 Creatinine [Mass/Vol] 1.32 mg/dL 0.70-1.30 [facility] Glucose [Mass/volume] in Ser um or PlasmaOrdered By: Stephanie Burgess on 12-19-2022 Glucose [Mass/Vol] 108 mg/dL 70-100 [facility] Comment on above: ADA recommended refe rence rangeRandom Glucose Reference Range is dependent on time and content of last meal. Glucose of more than 200 mg/dL in a nonstressed, ambulatory subject supports the diagnosis of Diabetes Mellitus. No Panel InformationOrdered By: Stephanie Burgess on 12-19-2022 Estimated GFR (CKD-EPI) 59.858 mL/Min [facility] Creatinine Clearance (Chem N/A [facility] Potassium [Moles/volume] in Serum or PlasmaOrdered By: Stephanie Burgess on 12-19-2022 Potassium [Moles/Vol] 4.0 mmol/L 3.5-5.1 [facility] Serum or plasma anion gap de terminationOrdered By: Stephanie Burgess on 12-19-2022 Anion gap [Moles/Vol] 12.3 mmol/L 6.0-15.0 [facility] Sodium [Moles/volume] in Ser um or PlasmaOrdered By: Stephanie Burgess on 12-19-2022 Sodium [Moles/Vol] 141 mmol/L 136-145 [facility] Urea nitrogen [Mass/volume] in Serum or PlasmaOrdered By: Stephanie Burgess on 12-19-2022 Urea nitrogen [Mass/Vol] 32 mg/dL 7-25 [facility] IntraOperative Documentson 1 IntraOperative Documents [id number]#1.00CD:127 Normal [facility] Operative Reporton 3 Operative Report SURGERY DATE: 2022 PIT CLERK: Antwan Jacobson CFA PREOPERATIVE DIAGNOSIS: Tongue lesion [...] was prepped with Betadine and then a Kings tip Bovie was used to make a [...] Sindi Foster Jr., M.D. lr Dictated: 12/06/2022 [id number] Transcribed: 12/06/2022 [facility] Comment on above: Result Comment: Elec tronically Signed By: Jerri NUÑEZ, Sindi Bassett\.br\Date and Time Signed: 12/13/22 09:35 EDT Discharge Instructionson Discharge Instructions [id number]#1.00CD:127 [facility] IntraOperative Documentson 0 12-07-2022 IntraOperative Documents [id number]#1.00CD:127 [facility] IntraOperative Documents [id number]#1.00CD:127 [facility] Preoperative Documentson Preoperative Documents [id number]#1.00CD:127 [facility] Prescriptions/Work Noteson 0 12-07-2022 Prescriptions/Work Notes [id number]#1.00CD:127 Normal [facility] Consent for Treatmenton 11-17 Consent for Treatment [id number]#1.00CD:127 Normal [facility] Discharge Instructionson Discharge Instructions ADENIKE POTTER [...] these instructions at home: Medicines ? Take rscg-cmy-xrdgbrd and prescription medicines only as told by [...] keep your urine pale yellow. ? Take rtmu-uii-bnznvqm or prescription medicines. Incision care ? Follow instructions from your health care provider about how to take care of your incisions. Make sure you: ? Wash your hands with soap and water for at least 20 seconds before and after you change your bandage (dressing). If soap and water are not available, use hand s (more content not included)... Normal [facility] Comment on above: Result Comment: Elec tronically Signed By: Mikhail SAHU, Halie Purvis\.br\Date and Time Signed: 12/06/22 11:25 EDT H&P Updateon 12-06-2022 H&P Update [id number]#1.00CD:127 Normal [facility] Inpatient Patient Summaryon 12-06-2022 Inpatient Patient Summary [place] [id number] [facility] Clinical Discharge Instructions PERSON INFORMATION Name: ADENIKE POTTER [facility]#:[id number] PHYSICIANS Admitting Physician: Sindi Foster MD Attending [...] Mouth 3 times a day. Comment: Normal [facility] Main OR Intraoperative Recor don 12-06-2022 Main OR Intraoperative Record IntraOp Document Type FT Summary Primary Physician: Sindi Foster MD Finalized Date/Time: 12/06/22 21:09:50 Pt. Name: ADENIKE POTTER/Sex: 1955 Male Med Rec #: [id number] Physician: Sindi Foster MD Financial #: [id number] Pt. Type: A Room/Bed: [facility] [...] Clarence Jean Role Performed Surgeon - Primary FISH HATCHERY LABORER/SA Factory Focus Technician - Primary Time In 12/06/22 10:32:00 12/06/22 [...] 12/06/22 11:00 (more content not included)... Normal [facility] Main OR PACU II Recordon Main OR PACU II Record PACU Phase II Document Type FT Summary Primary Physician: Sindi Foster MD Finalized Date/Time: 12/06/22 11:46:46 Pt. Name: ADENIKE POTTER./Sex: 1955 Male Med Rec #: [id number] Physician: Sindi Foster MD Financial #: [id number] Pt. Type: A Room/Bed: [place] [address] Admit/Disch: 12/06/22 08:56:06 - Institution: Case Times [...] By: Halie Elizondo RN 12/06/22 11:46 Normal [facility] Main OR Preoperative Recordo n 12-06-2022 Main OR Preoperative Record PreOp Document Type FT Summary Primary Physician: Sindi Foster MD Finalized Date/Time: 12/06/22 10:48:18 Pt. Name: ADENIKE POTTER/Sex: 1955 Male Med Rec #: [id number] Physician: Sindi Foster MD Financial #: [id number] Pt. Type: A Room/Bed: [place] [address] Admit/Disch: 12/06/22 08:56:06 - Institution: Case Times [...] 12/06/22 10:48 Clarence Cannon 12/06/22 10:48 Normal [facility] Outpatient Surgery Discharge Instructionon 12-06-2022 Outpatient Surgery Discharge Instruction [place] [id number] Patient Discharge Instructions PERSON INFORMATION Name: ADENIKE [...] Marcos You may receive a survey from [employer] asking you to rate your care experience. Your feedback is important and will help us understand what we do well and how we can improve the quality of care we provide to you, your loved ones and our community. It?s an honor to serve you. Thank you for choosing [facility] HERE ARE THE MEDICATION CHANGES THAT OCCURRED [...] day. PATIENT EDUCATION INFORMATION Instructions: Medication Leaflets: [facility] Patient Education - Texton 0 12-06-2022 Patient [...] these instructions at home: Medicines ? Take wjkv-gyw-wkmxned and prescription medicines only as told by [...] keep your urine pale yellow. ? Take dmeu-xti-cujzrnq or prescription medicines. Incision care ? Follow instructions from your health care provider about how to take care of your incisions. Make sure you: ? Wash your hands with soap and water for at least 20 seconds before and after you change your bandage (dressing). If soap and water are not available, use hand fermenter operator. ? Change your dressing as told [...] from you (more content not included)... Normal [facility] Alanine aminotransferase [En zymatic activity/volume] in Serum or PlasmaOrdered By: Vivian Del Rosario on 11-26-2022 ALT [Catalytic activity/Vol] 18 U/L 7-52 [facility] Albumin [Mass/volume] in Ser um or Plasma by Bromocresol green (BCG) dye binding methoOrdered By: Vivian Del Rosario on 11-26-2022 Albumin BCG dye [Mass/Vol] 4.1 g/dL 3.5-5.7 [facility] Alkaline phosphatase [Enzyma tic activity/volume] in Serum or PlasmaOrdered By: Vivian Del Rosario on 11-26-2022 ALP [Catalytic activity/Vol] 104 U/L 34-104 [facility] Aspartate aminotransferase [ Enzymatic activity/volume] in Serum or PlasmaOrdered By: Vivian Del Rosario on 11-26-2022 AST [Catalytic activity/Vol] 24 U/L 13-39 [facility] Basophils Auto (Bld) [#/Vol] Ordered By: Vivian Del Rosario on 11-26-2022 Basophils (Bld) [#/Vol] 0.0 10*3/uL 0.0-0.2 [facility] Basophils/100 WBC Auto (Bld) Ordered By: Vivian Del Rosario on 11-26-2022 Basophils/100 WBC (Bld) 0.7 % . [facility] Bilirubin.total [Mass/volume ] in Serum or PlasmaOrdered By: Vivian Del Rosario on 11-26-2022 Bilirubin [Mass/Vol] 0.8 mg/dL 0.3-1.0 [facility] Calcium [Mass/volume] in Ser um or PlasmaOrdered By: Vivian Del Rosario on 11-26-2022 Calcium [Mass/Vol] 10.7 mg/dL 8.6-10.3 [facility] Carbon dioxide, total [Moles /volume] in Serum or PlasmaOrdered By: Vivian Choulazarus on 11-26-2022 CO2 [Moles/Vol] 32.4 mmol/L 21.0-31.0 [facility] Chloride [Moles/volume] in S elmira or PlasmaOrdered By: Vivian Choulazarus on 11-26-2022 Chloride [Moles/Vol] 102 mmol/L 98-107 [facility] Complete Blood Count Auto Di ffon 11-26-2022 Basophils (Bld) [#/Vol] 0.0 10*3/uL Normal 0.0-0.2 [facility] Comment on above: Result Comment: PERF ORMED BY:[address] [place], [place] [phone] MEDICAL DIRECTORAPRIL VEGA M.D. Performed By: #### C BC, LDH, CMP ####[place] [id number] [facility] Basophils/100 WBC (Bld) 0.7 % Normal . [facility] Comment on above: Performed By: #### C BC, LDH, CMP ####[address] [address] [facility] Eosinophils (Bld) [#/Vol] 0.3 10*3/uL Normal 0.0-0.45 [facility] Comment on above: Performed By: #### C BC, LDH, CMP ####[place] [id number] [facility] Eosinophils/100 WBC (Bld) 4.3 % Normal . [facility] Comment on above: Performed By: #### C BC, LDH, CMP ####[place] [id number] [facility] Erythrocyte distribution width (RBC) [Ratio] 14.9 % High 12.0-14.8 [facility] Comment on above: Performed By: #### C BC, LDH, CMP ####[place] [id number] [facility] Hematocrit (Bld) [Volume fraction] 39.8 % Normal 38.8-50.0 [facility] Comment on above: Performed By: #### C BC, LDH, CMP ####[address] Hemoglobin (Bld) [Mass/Vol] 13.0 g/dL Normal 13.0-17.0 [facility] Comment on above: Performed By: #### C BC, LDH, CMP ####[address] Lymphocytes (Bld) [#/Vol] 1.0 10*3/uL Normal 1.00-4.8 [facility] Comment on above: Performed By: #### C BC, LDH, CMP ####[address] Lymphocytes/100 WBC (Bld) 13.3 % Normal . [facility] Comment on above: Performed By: #### C BC, LDH, CMP ####[address] MCH (RBC) [Entitic mass] 27.9 pg Normal 27.5-35.2 [facility] Comment on above: Performed By: #### C BC, LDH, CMP ####[address] MCV (RBC) [Entitic vol] 85.5 fL Normal 83.5-101 [facility] Comment on above: Performed By: #### C BC, LDH, CMP ####[address] Mean Corpuscular HGB Conc 32.6 g/dL Normal 32.5-35.6 [facility] Comment on above: Performed By: #### C BC, LDH, CMP ####[address] Monocytes (Bld) [#/Vol] 0.9 10*3/uL High 0.0-0.8 [facility] Comment on above: Performed By: #### C BC, LDH, CMP ####[address] Monocytes/100 WBC (Bld) 12.5 % Normal . [facility] Comment on above: Performed By: #### C BC, LDH, CMP ####[address] Neutrophils (Bld) [#/Vol] 5.1 10*3/uL Normal 1.8-7.7 [facility] Comment on above: Performed By: #### C BC, LDH, CMP ####[address] Neutrophils/100 WBC (Bld) 69.2 % Normal . [facility] Comment on above: Performed By: #### C BC, LDH, CMP ####[address] NRBC% 0.1 /100{WBC} Normal 0-0.5 [facility] Comment on above: Performed By: #### C BC, LDH, CMP ####[address] Platelet mean volume (Bld) [Entitic vol] 7.5 fL Normal 6.6-10.1 [facility] Comment on above: Performed By: #### C BC, LDH, CMP ####[address] Platelets (Bld) [#/Vol] 213 10*3/uL Normal 150-450 [facility] Comment on above: Performed By: #### C BC, LDH, CMP ####[address] RBC (Bld) [#/Vol] 4.66 10*6/uL Normal 3.90-5.60 [facility] Comment on above: Performed By: #### C BC, LDH, CMP ####[address] WBC (Bld) [#/Vol] 7.4 10*3/uL Normal 4.1-10.5 [facility] Comment on above: Performed By: #### C BC, LDH, CMP ####[facility] [place] [address] [facility] Comprehensive Metabolic Pane anny 11-26-2022 Albumin [Mass/Vol] 4.1 g/dL Normal 3.5-5.7 [facility] Comment on above: Performed By: #### C BC, LDH, CMP ####[place] [address] [place] [address] [facility] Albumin/Globulin [Mass ratio] 1.8 {ratio} Normal [facility] Comment on above: Performed By: #### C BC, LDH, CMP ####[place] [address] [place] [address] [facility] ALP [Catalytic activity/Vol] 104 U/L Normal 34-104 [facility] Comment on above: Performed By: #### C BC, LDH, CMP ####[place] [address] [place] [address] [facility] ALT [Catalytic activity/Vol] 18 U/L Normal 7-52 [facility] Comment on above: Performed By: #### C BC, LDH, CMP ####[place] [address] [place] [address] [facility] Anion gap [Moles/Vol] 10.2 mmol/L Normal 6.0-15.0 [facility] Comment on above: Performed By: #### C BC, LDH, CMP ####[address] [address] [facility] AST [Catalytic activity/Vol] 24 U/L Normal 13-39 [facility] Comment on above: Performed By: #### C BC, LDH, CMP ####[address] [address] [facility] Bilirubin [Mass/Vol] 0.8 mg/dL Normal 0.3-1.0 [facility] Comment on above: Performed By: #### C BC, LDH, CMP ####[place] [address] [place] [address] [facility] Calcium [Mass/Vol] 10.7 mg/dL High 8.6-10.3 [facility] Comment on above: Performed By: #### C BC, LDH, CMP ####[place] [address] [place] [id number] [facility] Chloride [Moles/Vol] 102 mmol/L Normal 98-107 [facility] Comment on above: Performed By: #### C BC, LDH, CMP ####[place] [id number] [facility] CO2 [Moles/Vol] 32.4 mmol/L High 21.0-31.0 [facility] Comment on above: Performed By: #### C BC, LDH, CMP ####[place] [id number] [facility] Creatinine [Mass/Vol] 1.35 mg/dL High 0.70-1.30 [facility] Comment on above: Performed By: #### C BC, LDH, CMP ####[address] GFR/1.73 sq M.predicted MDRD (S/P/Bld) [Vol rate/Area] 58.266 mL/min/{1.73_m2} Normal [facility] Comment on above: Performed By: #### C BC, LDH, CMP ####[place] [id number] [facility] Globulin (S) [Mass/Vol] 2.3 g/dL [facility] Comment on above: Performed By: #### C BC, LDH, CMP ####[place] [id number] [facility] Glucose [Mass/Vol] 123 mg/dL High 70-100 [facility] Comment on above: Result Comment: [place] [facility] Glucose Reference Range is dependent on time and content of last meal. Glucose of more than 200 mg/dL in a nonstressed, ambulatory subject supports the diagnosis of Diabetes Mellitus. ADA recommended reference range Performed By: #### C BC, LDH, CMP ####[place] [id number] [facility] Potassium [Moles/Vol] 4.6 mmol/L Normal 3.5-5.1 [facility] Comment on above: Performed By: #### C BC, LDH, CMP ####[facility] [id number] [place] [address] [facility] Protein [Mass/Vol] 6.4 g/dL Normal 6.4-8.9 [facility] Comment on above: Performed By: #### C BC, LDH, CMP ####[facility] [id number] [place] [address] [facility] Sodium [Moles/Vol] 140 mmol/L Normal 136-145 [facility] Comment on above: Performed By: #### C BC, LDH, CMP ####[facility] [address] [place] [address] [facility] Urea nitrogen [Mass/Vol] 25 mg/dL Normal 7-25 [facility] Comment on above: Performed By: #### C BC, LDH, CMP ####[facility] [id number] [place] [address] [facility] Creatinine [Mass/volume] in Serum or PlasmaOrdered By: Vivian Del Rosario on 11-26-2022 Creatinine [Mass/Vol] 1.35 mg/dL 0.70-1.30 [facility] Eosinophils Auto (Bld) [#/Vo l]Ordered By: Vivian Del Rosario on 11-26-2022 Eosinophils (Bld) [#/Vol] 0.3 10*3/uL 0.0-0.45 [facility] Eosinophils/100 WBC Auto (Bl d)Ordered By: Vivian Del Rosario on 11-26-2022 Eosinophils/100 WBC (Bld) 4.3 % . [facility] Erythrocyte distribution wid th Auto (RBC) [Ratio]Ordered By: Vivian Del Rosario on 11-26-2022 Erythrocyte distribution width (RBC) [Ratio] 14.9 % 12.0-14.8 [facility] Globulin Calc (S) [Mass/Vol] Ordered By: Vivian Del Rosario on 11-26-2022 Globulin (S) [Mass/Vol] 2.3 g/dL [facility] Glucose [Mass/volume] in Ser um or PlasmaOrdered By: Vivian Del Rosario on 11-26-2022 Glucose [Mass/Vol] 123 mg/dL 70-100 [facility] Comment on above: ADA recommended refe rence rangeRandom Glucose Reference Range is dependent on time and content of last meal. Glucose of more than 200 mg/dL in a nonstressed, ambulatory subject supports the diagnosis of Diabetes Mellitus. Hematocrit Auto (Bld) [Volum e fraction]Ordered By: Vivian Del Rosario on 11-26-2022 Hematocrit (Bld) [Volume fraction] 39.8 % 38.8-50.0 [facility] Hemoglobin [Mass/volume] in BloodOrdered By: Vivian Del Rosario on 11-26-2022 Hemoglobin (Bld) [Mass/Vol] 13.0 g/dL 13.0-17.0 [facility] LDH Lactate Dehydrogenaseon 11-26-2022 LDH Lactate Dehydrogenase 239 U/L Normal 140-271 [facility] Comment on above: Result Comment: PERF ORMED BY:[facility] [place] [address] [place], [place] [phone] MEDICAL DIRECTORAPRIL VEGA M.D. Performed By: #### C BC, LDH, CMP ####[facility] [place] [address] [facility] Lactate dehydrogenase [Enzym atic activity/volume] in Serum or Plasma by Lactate to pyOrdered By: Vivian Del Rosario on 11-26-2022 LDH Lactate to pyruvate reaction [Catalytic activity/Vol] 239 U/L 140-271 [facility] Leukocytes [#/volume] correc martin for nucleated erythrocytes in Blood by Automated counOrdered By: Vivian Del Rosario on 11-26-2022 WBC corrected for nucl RBC Auto (Bld) [#/Vol] 7.4 10*3/uL 4.1-10.5 [facility] Lymphocytes Auto (Bld) [#/Vo l]Ordered By: Vivian Del Rosario on 11-26-2022 Lymphocytes (Bld) [#/Vol] 1.0 10*3/uL 1.00-4.8 [facility] Lymphocytes/100 WBC Auto (Bl d)Ordered By: Vivian Del Rosario on 11-26-2022 Lymphocytes/100 WBC (Bld) 13.3 % . [facility] MCH Auto (RBC) [Entitic mass ]Ordered By: Vivian Del Rosario on 11-26-2022 MCH (RBC) [Entitic mass] 27.9 pg 27.5-35.2 [facility] MCHC Auto (RBC) [Mass/Vol]Or dered By: Vivian Del Rosario on 11-26-2022 MCHC (RBC) [Mass/Vol] 32.6 g/dL 32.5-35.6 [facility] MCV Auto (RBC) [Entitic vol] Ordered By: Vivian Del Rosario on 11-26-2022 MCV (RBC) [Entitic vol] 85.5 fL 83.5-101 [facility] Monocytes Auto (Bld) [#/Vol] Ordered By: Vivian Del Rosario on 11-26-2022 Monocytes (Bld) [#/Vol] 0.9 10*3/uL 0.0-0.8 [facility] Monocytes/100 WBC Auto (Bld) Ordered By: Vivian Del Rosario on 11-26-2022 Monocytes/100 WBC (Bld) 12.5 % . [facility] Neutrophils Auto (Bld) [#/Vo l]Ordered By: Vivian Del Rosario on 11-26-2022 Neutrophils (Bld) [#/Vol] 5.1 10*3/uL 1.8-7.7 [facility] Neutrophils/100 WBC Auto (Bl d)Ordered By: Vivian Del Rosario on 11-26-2022 Neutrophils/100 WBC (Bld) 69.2 % . [facility] No Panel InformationOrdered By: Vivian Del Rosario on 11-26-2022 Estimated GFR (CKD-EPI) 58.266 mL/Min [facility] Creatinine Clearance (Chem N/A [facility] Nucleated erythrocytes [Pres ence] in Blood by Automated countOrdered By: Vivian Del Rosario on 11-26-2022 Nucleated RBC Auto Ql (Bld) 0.1 /100{WBC} 0-0.5 [facility] Platelet mean volume Auto (B ld) [Entitic vol]Ordered By: Vivian Del Rosario on 11-26-2022 Platelet mean volume (Bld) [Entitic vol] 7.5 fL 6.6-10.1 [facility] Platelets Auto (Bld) [#/Vol] Ordered By: Vivian Del Rosario on 11-26-2022 Platelets (Bld) [#/Vol] 213 10*3/uL 150-450 [facility] Potassium [Moles/volume] in Serum or PlasmaOrdered By: Vivian Del Rosario on 11-26-2022 Potassium [Moles/Vol] 4.6 mmol/L 3.5-5.1 [facility] Protein [Mass/volume] in Ser um or PlasmaOrdered By: Vivian Del Rosario on 11-26-2022 Protein [Mass/Vol] 6.4 g/dL 6.4-8.9 [facility] RBC Auto (Bld) [#/Vol]Ordere d By: Vivian Del Rosario on 11-26-2022 RBC (Bld) [#/Vol] 4.66 10*6/uL 3.90-5.60 [facility] Serum or plasma albumin/glob ulin mass ratioOrdered By: Vivian Del Rosario on 11-26-2022 Albumin/Globulin [Mass ratio] 1.8 {ratio} [facility] Serum or plasma anion gap de terminationOrdered By: Vivian Del Rosario on 11-26-2022 Anion gap [Moles/Vol] 10.2 mmol/L 6.0-15.0 [facility] Sodium [Moles/volume] in Ser um or PlasmaOrdered By: Vivian Del Rosario on 11-26-2022 Sodium [Moles/Vol] 140 mmol/L 136-145 [facility] Urea nitrogen [Mass/volume] in Serum or PlasmaOrdered By: Vivian Del Rosario on 11-26-2022 Urea nitrogen [Mass/Vol] 25 mg/dL 7-25 [facility] WBC Auto (Bld) [#/Vol]Ordere d By: Vivian Del Rosario on 11-26-2022 WBC (Bld) [#/Vol] 7.4 10*3/uL 4.1-10.5 [facility] Consent for Procedure/Surger yon 11-15-2022 Consent for Procedure/Surgery [id number]#[id number]:127 Normal [facility] Alanine aminotransferase [En zymatic activity/volume] in Serum or PlasmaOrdered By: Teri Ybarra on 11-12-2022 ALT [Catalytic activity/Vol] 17 U/L 7-52 [facility] Albumin [Mass/volume] in Ser um or Plasma by Bromocresol green (BCG) dye binding methoOrdered By: Teri Ybarra on 11-12-2022 Albumin BCG dye [Mass/Vol] 4.1 g/dL 3.5-5.7 [facility] Alkaline phosphatase [Enzyma tic activity/volume] in Serum or PlasmaOrdered By: Teri Ybarra on 11-12-2022 ALP [Catalytic activity/Vol] 104 U/L 34-104 [facility] Aspartate aminotransferase [ Enzymatic activity/volume] in Serum or PlasmaOrdered By: Teri Ybarra on 11-12-2022 AST [Catalytic activity/Vol] 24 U/L 13-39 [facility] Basophils Auto (Bld) [#/Vol] Ordered By: Teri Ybarra on 11-12-2022 Basophils (Bld) [#/Vol] 0.0 10*3/uL 0.0-0.2 [facility] Basophils/100 WBC Auto (Bld) Ordered By: Teri Ybarra on 11-12-2022 Basophils/100 WBC (Bld) 0.7 % . [facility] Bilirubin.total [Mass/volume ] in Serum or PlasmaOrdered By: Teri Ybarra on 11-12-2022 Bilirubin [Mass/Vol] 0.7 mg/dL 0.3-1.0 [facility] Calcium [Mass/volume] in Ser um or PlasmaOrdered By: Teri Ybarra on 11-12-2022 Calcium [Mass/Vol] 10.3 mg/dL 8.6-10.3 [facility] Carbon dioxide, total [Moles /volume] in Serum or PlasmaOrdered By: Teri Ybarra on 11-12-2022 CO2 [Moles/Vol] 31.9 mmol/L 21.0-31.0 [facility] Chloride [Moles/volume] in S [place] or PlasmaOrdered By: Teri Ybarra on 11-12-2022 Chloride [Moles/Vol] 105 mmol/L 98-107 [facility] Complete Blood Count Auto Di ffon 11-12-2022 Basophils (Bld) [#/Vol] 0.0 10*3/uL Normal 0.0-0.2 [facility] Comment on above: Result Comment: PERF ORMED BY:[address] [place], [place] [phone] MEDICAL DIRECTORAPRIL VEGA M.D. Performed By: #### C BC URIC, CMP ####[address] [address] [facility] Basophils/100 WBC (Bld) 0.7 % Normal . [facility] Comment on above: Performed By: #### C BC URIC, CMP ####[id number] [place] [address] [facility] Eosinophils (Bld) [#/Vol] 0.4 10*3/uL Normal 0.0-0.45 [facility] Comment on above: Performed By: #### C BC URIC, CMP ####[place] [id number] [facility] Eosinophils/100 WBC (Bld) 6.9 % Normal . [facility] Comment on above: Performed By: #### C BC URIC, CMP ####[address] [address] [facility] Erythrocyte distribution width (RBC) [Ratio] 15.0 % High 12.0-14.8 [facility] Comment on above: Performed By: #### C BC URIC, CMP ####[address] [address] [facility] Hematocrit (Bld) [Volume fraction] 36.8 % Low 38.8-50.0 [facility] Comment on above: Performed By: #### C BC URIC, CMP ####[place] [id number] [facility] Hemoglobin (Bld) [Mass/Vol] 12.0 g/dL Low 13.0-17.0 [facility] Comment on above: Performed By: #### C BC URIC, CMP ####[address] Lymphocytes (Bld) [#/Vol] 0.7 10*3/uL Low 1.00-4.8 [facility] Comment on above: Performed By: #### C BC, URIC, CMP ####[place] [id number] [facility] Lymphocytes/100 WBC (Bld) 12.7 % Normal . [facility] Comment on above: Performed By: #### C BC, URIC, CMP ####[place] [id number] [facility] MCH (RBC) [Entitic mass] 27.9 pg Normal 27.5-35.2 [facility] Comment on above: Performed By: #### C BC, URIC, CMP ####[place] [id number] [facility] MCV (RBC) [Entitic vol] 85.4 fL Normal 83.5-101 [facility] Comment on above: Performed By: #### C BC, URIC, CMP ####[address] Mean Corpuscular HGB Conc 32.7 g/dL Normal 32.5-35.6 [facility] Comment on above: Performed By: #### C BC, URIC, CMP ####[place] [id number] [facility] Monocytes (Bld) [#/Vol] 0.7 10*3/uL Normal 0.0-0.8 [facility] Comment on above: Performed By: #### C BC, URIC, CMP ####[place] [id number] [facility] Monocytes/100 WBC (Bld) 12.7 % Normal . [facility] Comment on above: Performed By: #### C BC, URIC, CMP ####[place] [id number] [facility] Neutrophils (Bld) [#/Vol] 3.9 10*3/uL Normal 1.8-7.7 [facility] Comment on above: Performed By: #### C BC, URIC, CMP ####[place] [id number] [facility] Neutrophils/100 WBC (Bld) 67.0 % Normal . [facility] Comment on above: Performed By: #### C BC, URIC, CMP ####[address] [address] [facility] NRBC% 0.1 /100{WBC} Normal 0-0.5 [facility] Comment on above: Performed By: #### C BC, URIC, CMP ####[address] [address] [facility] Platelet mean volume (Bld) [Entitic vol] 7.4 fL Normal 6.6-10.1 [facility] Comment on above: Performed By: #### C BC, URIC, CMP ####[place] [id number] [facility] Platelets (Bld) [#/Vol] 189 10*3/uL Normal 150-450 [facility] Comment on above: Performed By: #### C BC, URIC, CMP ####[place] [id number] [facility] RBC (Bld) [#/Vol] 4.30 10*6/uL Normal 3.90-5.60 [facility] Comment on above: Performed By: #### C BC, URIC, CMP ####[address] [address] [facility] WBC (Bld) [#/Vol] 5.9 10*3/uL Normal 4.1-10.5 [facility] Comment on above: Performed By: #### C BC, URIC, CMP ####[place] [phone] [facility] Comprehensive Metabolic Pane anny 11-12-2022 Albumin [Mass/Vol] 4.1 g/dL Normal 3.5-5.7 [facility] Comment on above: Performed By: #### C BC, URIC, CMP ####[address] [address] [place] [address] [facility] Albumin/Globulin [Mass ratio] 1.6 {ratio} Normal [facility] Comment on above: Performed By: #### C BC URIC, CMP ####[address] [place] [address] [facility] ALP [Catalytic activity/Vol] 104 U/L Normal 34-104 [facility] Comment on above: Performed By: #### C BC URIC, CMP ####[address] [address] [facility] ALT [Catalytic activity/Vol] 17 U/L Normal 7-52 [facility] Comment on above: Performed By: #### C BC URIC, CMP ####[address] [address] [facility] Anion gap [Moles/Vol] 8.7 mmol/L Normal 6.0-15.0 [facility] Comment on above: Performed By: #### C BC URIC, CMP ####[address] [address] [facility] AST [Catalytic activity/Vol] 24 U/L Normal 13-39 [facility] Comment on above: Performed By: #### C BC URIC, CMP ####[address] [address] [facility] Bilirubin [Mass/Vol] 0.7 mg/dL Normal 0.3-1.0 [facility] Comment on above: Performed By: #### C BC, URIC, CMP ####[address] [address] [facility] Calcium [Mass/Vol] 10.3 mg/dL Normal 8.6-10.3 [facility] Comment on above: Performed By: #### C BC, URIC, CMP ####[address] [address] [facility] Chloride [Moles/Vol] 105 mmol/L Normal 98-107 [facility] Comment on above: Performed By: #### C BC, URIC, CMP ####[place] [id number] [facility] CO2 [Moles/Vol] 31.9 mmol/L High 21.0-31.0 [facility] Comment on above: Performed By: #### C BC URIC, CMP ####[address] [place] [phone] [facility] Creatinine [Mass/Vol] 1.34 mg/dL High 0.70-1.30 [facility] Comment on above: Performed By: #### C BC URIC, CMP ####[id number] [place] [phone] [place] GFR/1.73 sq M.predicted MDRD (S/P/Bld) [Vol rate/Area] 58.788 mL/min/{1.73_m2} Normal [facility] Comment on above: Performed By: #### C BC URIC, CMP ####[place] [id number] [facility] Globulin (S) [Mass/Vol] 2.6 g/dL Normal [facility] Comment on above: Performed By: #### C BC URIC, CMP ####[place] [phone] [facility] Glucose [Mass/Vol] 116 mg/dL High 70-100 [facility] Comment on above: Result Comment: [place] Glucose Reference Range is dependent on time and content of last meal. Glucose of more than 200 mg/dL in a nonstressed, ambulatory subject supports the diagnosis of Diabetes Mellitus. ADA recommended reference range Performed By: #### C BC URIC, CMP ####[place] [id number] [facility] Potassium [Moles/Vol] 4.6 mmol/L Normal 3.5-5.1 [facility] Comment on above: Performed By: #### C BC URIC, CMP ####[id number] [place] [id number] [facility] Protein [Mass/Vol] 6.7 g/dL Normal 6.4-8.9 [facility] Comment on above: Performed By: #### C BC URIC, CMP ####[facility] [id number] [place] [address] [facility] Sodium [Moles/Vol] 141 mmol/L Normal 136-145 [facility] Comment on above: Performed By: #### C BC, URIC, CMP ####[facility] [id number] [place] [address] [facility] Urea nitrogen [Mass/Vol] 27 mg/dL High 7-25 [facility] Comment on above: Performed By: #### C BC, URIC, CMP ####[facility] [id number] [place] [address] [facility] Creatinine [Mass/volume] in Serum or PlasmaOrdered By: Teri Ybarra on 11-12-2022 Creatinine [Mass/Vol] 1.34 mg/dL 0.70-1.30 [facility] Eosinophils Auto (Bld) [#/Vo l]Ordered By: Teri Ybarra on 11-12-2022 Eosinophils (Bld) [#/Vol] 0.4 10*3/uL 0.0-0.45 [facility] Eosinophils/100 WBC Auto (Bl d)Ordered By: Teri Ybarra on 11-12-2022 Eosinophils/100 WBC (Bld) 6.9 % . [facility] Erythrocyte distribution wid th Auto (RBC) [Ratio]Ordered By: Teri Ybarra on 11-12-2022 Erythrocyte distribution width (RBC) [Ratio] 15.0 % 12.0-14.8 [facility] Globulin Calc (S) [Mass/Vol] Ordered By: Teri Ybarra on 11-12-2022 Globulin (S) [Mass/Vol] 2.6 g/dL [facility] Glucose [Mass/volume] in Ser um or PlasmaOrdered By: Teri Ybarra on 11-12-2022 Glucose [Mass/Vol] 116 mg/dL 70-100 [facility] Comment on above: ADA recommended refe rence rangeRandom Glucose Reference Range is dependent on time and content of last meal. Glucose of more than 200 mg/dL in a nonstressed, ambulatory subject supports the diagnosis of Diabetes Mellitus. Hematocrit Auto (Bld) [Volum e fraction]Ordered By: Teri Ybarra on 11-12-2022 Hematocrit (Bld) [Volume fraction] 36.8 % 38.8-50.0 [facility] Hemoglobin [Mass/volume] in BloodOrdered By: Teir Ybarra on 11-12-2022 Hemoglobin (Bld) [Mass/Vol] 12.0 g/dL 13.0-17.0 [facility] Leukocytes [#/volume] correc martin for nucleated erythrocytes in Blood by Automated counOrdered By: Teri Ybarra on 11-12-2022 WBC corrected for nucl RBC Auto (Bld) [#/Vol] 5.9 10*3/uL 4.1-10.5 [facility] Lymphocytes Auto (Bld) [#/Vo l]Ordered By: Teri Ybarra on 11-12-2022 Lymphocytes (Bld) [#/Vol] 0.7 10*3/uL 1.00-4.8 [facility] Lymphocytes/100 WBC Auto (Bl d)Ordered By: Teri Ybarra on 11-12-2022 Lymphocytes/100 WBC (Bld) 12.7 % . [facility] MCH Auto (RBC) [Entitic mass ]Ordered By: Teri Ybarra on 11-12-2022 MCH (RBC) [Entitic mass] 27.9 pg 27.5-35.2 [facility] MCHC Auto (RBC) [Mass/Vol]Or dered By: Teri Ybarra on 11-12-2022 MCHC (RBC) [Mass/Vol] 32.7 g/dL 32.5-35.6 [facility] MCV Auto (RBC) [Entitic vol] Ordered By: Teri Ybarra on 11-12-2022 MCV (RBC) [Entitic vol] 85.4 fL 83.5-101 [facility] Monocytes Auto (Bld) [#/Vol] Ordered By: Teri Ybarra on 11-12-2022 Monocytes (Bld) [#/Vol] 0.7 10*3/uL 0.0-0.8 [facility] Monocytes/100 WBC Auto (Bld) Ordered By: Teri Ybarra on 11-12-2022 Monocytes/100 WBC (Bld) 12.7 % . [facility] Neutrophils Auto (Bld) [#/Vo l]Ordered By: Teri Ybarra on 11-12-2022 Neutrophils (Bld) [#/Vol] 3.9 10*3/uL 1.8-7.7 [facility] Neutrophils/100 WBC Auto (Bl d)Ordered By: Teri Ybarra on 11-12-2022 Neutrophils/100 WBC (Bld) 67.0 % . [facility] No Panel InformationOrdered By: Teri Ybarra on 11-12-2022 Estimated GFR (CKD-EPI) 58.788 mL/Min [facility] Creatinine Clearance (Chem N/A [facility] Nucleated erythrocytes [Pres ence] in Blood by Automated countOrdered By: Teri Ybarra on 11-12-2022 Nucleated RBC Auto Ql (Bld) 0.1 /100{WBC} 0-0.5 [facility] Platelet mean volume Auto (B ld) [Entitic vol]Ordered By: Teri Ybarra on 11-12-2022 Platelet mean volume (Bld) [Entitic vol] 7.4 fL 6.6-10.1 [facility] Platelets Auto (Bld) [#/Vol] Ordered By: Teri Ybarra on 11-12-2022 Platelets (Bld) [#/Vol] 189 10*3/uL 150-450 [facility] Potassium [Moles/volume] in Serum or PlasmaOrdered By: Teri Ybarra on 11-12-2022 Potassium [Moles/Vol] 4.6 mmol/L 3.5-5.1 [facility] Protein [Mass/volume] in Ser um or PlasmaOrdered By: Teri Ybarra on 11-12-2022 Protein [Mass/Vol] 6.7 g/dL 6.4-8.9 [facility] RBC Auto (Bld) [#/Vol]Ordere d By: Teri Ybarra on 11-12-2022 RBC (Bld) [#/Vol] 4.30 10*6/uL 3.90-5.60 [facility] Serum or plasma albumin/glob ulin mass ratioOrdered By: Teri Ybarra on 11-12-2022 Albumin/Globulin [Mass ratio] 1.6 {ratio} [facility] Serum or plasma anion gap de terminationOrdered By: Teri Ybarra on 11-12-2022 Anion gap [Moles/Vol] 8.7 mmol/L 6.0-15.0 [facility] Sodium [Moles/volume] in Ser um or PlasmaOrdered By: Teri Ybarra on 11-12-2022 Sodium [Moles/Vol] 141 mmol/L 136-145 [facility] Urate [Mass/volume] in Serum or PlasmaOrdered By: Teri Ybarra on 11-12-2022 Urate [Mass/Vol] 5.0 mg/dL 4.4-7.6 [facility] Urea nitrogen [Mass/volume] in Serum or PlasmaOrdered By: Teri Ybarra on 11-12-2022 Urea nitrogen [Mass/Vol] 27 mg/dL 7-25 [facility] Uric Acidon 11-12-2022 Urate [Mass/Vol] 5.0 mg/dL Normal 4.4-7.6 [facility] Comment on above: Result Comment: PERF ORMED BY:[facility] [place] [phone] MEDICAL DIRECTORAPRIL VEGA M.D. Performed By: #### C BC, URIC, CMP ####[facility] [place] [address] [facility] WBC Auto (Bld) [#/Vol]Ordere d By: Teri Ybarra on 11-12-2022 WBC (Bld) [#/Vol] 5.9 10*3/uL 4.1-10.5 [facility] A1C HEMOGLOBINon 10-11-2022 HbA1c (Bld) [Mass fraction] 7.2 % [facility] Other HbA1c (Bld) [Mass fraction]o n 10-11-2022 A1C HEMOGLOBIN [facility] [employer] Other Potassiumon 10-10-2022 Potassium [Moles/Vol] 4.0 mmol/L Normal 3.5-5.1 [facility] Comment on above: Order Comment: Reaso n for Exam Low serum potassium level Result Comment: PERF ORMED BY:[facility] [place], [place] [phone] MEDICAL DIRECTORAPRIL VEGA M.D. Performed By: #### K ####[facility] [id number] [place] [place] [address] [facility] Potassium [Moles/volume] in Serum or PlasmaOrdered By: Geeta Dumont on 10-10-2022 Potassium [Moles/Vol] 4.0 mmol/L 3.5-5.1 [facility] MR head/brain wo conon 09-28 MR head/brain wo con Normal [facility] Office Visit (Cardiology)on 09-07-2022 Follow-up visit Diagnoses/Problems Assessed Atherosclerosis of [place] coronary artery without angina pectoris (414.01) (I25.10) [...] (Z87.891) Quit in 2006 Orders Atherosclerosis of [place] coronary artery without angina pectoris Renew: Aspirin [...] CALL 911) (more content not included)... Normal [employer] Tobacco Screening.on 023 Adult depression screening assessment No [facility] [employer] y 250 DO Work Phone: Fall risk assessment a) No falls within the last year [facility] [employer] y 250 DO Work Phone: Tobacco use status CPHS b) No [facility] [employer] y 250 DO Work Phone: Basic Metabolic Panelon 06- Anion gap [Moles/Vol] 14.0 mmol/L Normal 6.0-15.0 [facility] Comment on above: Performed By: #### B MP ####[facility] [place] [address] [facility] Calcium [Mass/Vol] 10.5 mg/dL High 8.6-10.3 [facility] Comment on above: Result Comment: PERF ORMED BY:[address] [place]UN[place]itchieSO[place], [place] [phone] MEDICAL DIRECTORAPRIL VEGA M.D. Performed By: #### B MP ####[address] [place] [address] [facility] Chloride [Moles/Vol] 102 mmol/L Normal 98-107 [facility] Comment on above: Performed By: #### B MP ####[address] [place] [address] [facility] CO2 [Moles/Vol] 26.9 mmol/L Normal 21.0-31.0 [facility] Comment on above: Performed By: #### B MP ####[address] [address] [facility] Creatinine [Mass/Vol] 1.12 mg/dL Normal 0.70-1.30 [facility] Comment on above: Performed By: #### B MP ####[address] [place] [address] [facility] GFR/1.73 sq M.predicted MDRD (S/P/Bld) [Vol rate/Area] mL/min/{1.73_m2} Normal [facility] Comment on above: Performed By: #### B MP ####[address] [address] [facility] Glucose [Mass/Vol] 137 mg/dL High 70-100 [facility] Comment on above: Result Comment: [place] om Glucose Reference Range is dependent on time and content of last meal. Glucose of more than 200 mg/dL in a nonstressed, ambulatory subject supports the diagnosis of Diabetes Mellitus. ADA recommended reference range Performed By: #### B MP ####[address] [place] [address] [facility] Potassium [Moles/Vol] 3.9 mmol/L Normal 3.5-5.1 [facility] Comment on above: Performed By: #### B MP ####[facility] [place] [id number] [facility] Sodium [Moles/Vol] 139 mmol/L Normal 136-145 [facility] Comment on above: Performed By: #### B MP ####[facility] [place] [id number] [facility] Urea nitrogen [Mass/Vol] 23 mg/dL Normal 7-25 [facility] Comment on above: Performed By: #### B MP ####[address] [place] [id number] [facility] Calcium [Mass/volume] in Ser um or PlasmaOrdered By: Stephanie Burgess on 09-05-2022 Calcium [Mass/Vol] 10.5 mg/dL 8.6-10.3 [facility] Carbon dioxide, total [Moles /volume] in Serum or PlasmaOrdered By: Stephanie Burgess on 09-05-2022 CO2 [Moles/Vol] 26.9 mmol/L 21.0-31.0 [facility] Chloride [Moles/volume] in S [place] or PlasmaOrdered By: Stephanie Burgess on 09-05-2022 Chloride [Moles/Vol] 102 mmol/L 98-107 [facility] Creatinine [Mass/volume] in Serum or PlasmaOrdered By: Stephanie Burgess on 09-05-2022 Creatinine [Mass/Vol] 1.12 mg/dL 0.70-1.30 [facility] Glucose [Mass/volume] in Ser um or PlasmaOrdered By: Stephanie Burgess on 09-05-2022 Glucose [Mass/Vol] 137 mg/dL 70-100 [facility] Comment on above: ADA recommended refe rence rangeRandom Glucose Reference Range is dependent on time and content of last meal. Glucose of more than 200 mg/dL in a nonstressed, ambulatory subject supports the diagnosis of Diabetes Mellitus. No Panel InformationOrdered By: Stephanie Burgess on 09-05-2022 Estimated GFR (CKD-EPI) > 60.0 mL/Min [facility] Creatinine Clearance (Chem N/A [facility] No Panel Informationon 09-05 > 60.0 Normal [facility] Dalia [address] 250 DO Work Phone: [phone] 14.0\S\14.0 Normal 6.0-15.0 [facility] [employer] 250 DO Work Phone: [phone] 10.5\S\10.5 above high threshold 8.6-10.3 [facility] [address] 250 DO Work Phone: [phone] Comment on above: PERFORMED BY:[facility] [place], [place] [phone] MEDICAL DIRECTORAPRIL VEGA M.D. 26.9\S\26.9 Normal 21.0-31.0 [facility] [address] DO Work Phone: [phone] 102\S\102 Normal 98-107 [facility] [address] DO Work Phone: [phone] 3.9\S\3.9 Normal 3.5-5.1 [facility] [address] DO Work Phone: [phone] 139\S\139 Normal 136-145 [facility] [address] DO Work Phone: [phone] 1.12\S\1.12 Normal 0.70-1.30 [facility] [address] DO Work Phone: [phone] 23\S\23 Normal 7-25 [facility] [address] 250 DO Work Phone: [phone] 137\S\137 above high threshold 70-100 [facility] [address] DO Work Phone: [phone] Comment on above: Random Glucose Refer ence Range is dependent on time and content of last meal. Glucose of more than 200 mg/dL in a nonstressed, ambulatory subject supports the diagnosis of Diabetes Mellitus. ADA recommended reference range Potassium [Moles/volume] in Serum or PlasmaOrdered By: Stephanie Burgess on 09-05-2022 Potassium [Moles/Vol] 3.9 mmol/L 3.5-5.1 [facility] Serum or plasma anion gap de terminationOrdered By: Stephanie Burgess on 09-05-2022 Anion gap [Moles/Vol] 14.0 mmol/L 6.0-15.0 [facility] Sodium [Moles/volume] in Ser um or PlasmaOrdered By: Stephanie Burgess on 09-05-2022 Sodium [Moles/Vol] 139 mmol/L 136-145 [facility] Urea nitrogen [Mass/volume] in Serum or PlasmaOrdered By: Stephanie Burgess on 09-05-2022 Urea nitrogen [Mass/Vol] 23 mg/dL 10-09 [facility] XR cervical spine 2Von 09-03 XR cervical spine 2V Normal [facility] Alanine aminotransferase [En zymatic activity/volume] in Serum or PlasmaOrdered By: Geeta Dumont on 08-29-2022 ALT [Catalytic activity/Vol] 19 U/L 7 [facility] Albumin [Mass/volume] in Ser um or Plasma by Bromocresol green (BCG) dye binding methoOrdered By: Geeta Dumont on 08-29-2022 Albumin BCG dye [Mass/Vol] 4.3 g/dL 3.5-5.7 [facility] Alkaline phosphatase [Enzyma tic activity/volume] in Serum or PlasmaOrdered By: Geeta Dumont on 08-29-2022 ALP [Catalytic activity/Vol] 96 U/L 34-104 [facility] Aspartate aminotransferase [ Enzymatic activity/volume] in Serum or PlasmaOrdered By: Geeta Dumont on 08-29-2022 AST [Catalytic activity/Vol] 25 U/L 13-39 [facility] Basophils Auto (Bld) [#/Vol] Ordered By: Geeta Dumont on 08-29-2022 Basophils (Bld) [#/Vol] 0.0 10*3/uL 0.0-0.2 [facility] Basophils/100 WBC Auto (Bld) Ordered By: Geeta Dumont on 08-29-2022 Basophils/100 WBC (Bld) 0.7 % . [facility] Bilirubin.total [Mass/volume ] in Serum or PlasmaOrdered By: Geeta Dumont on 08-29-2022 Bilirubin [Mass/Vol] 0.6 mg/dL 0.3-1.0 [facility] Calcium [Mass/volume] in Ser um or PlasmaOrdered By: Geeta Dumont on 08-29-2022 Calcium [Mass/Vol] 10.6 mg/dL 8.6-10.3 [facility] Carbon dioxide, total [Moles /volume] in Serum or PlasmaOrdered By: Geeta Dumont on 08-29-2022 CO2 [Moles/Vol] 28.0 mmol/L 21.0-31.0 [facility] Chloride [Moles/volume] in S [place] or PlasmaOrdered By: Geeta Dumont on 08-29-2022 Chloride [Moles/Vol] 102 mmol/L 98-107 [facility] Cholesterol [Mass/volume] in Serum or PlasmaOrdered By: Geeta Dumont on 08-29-2022 Cholesterol [Mass/Vol] 141 mg/dL 140-200 [facility] Comment on above: Chol less than 200 m g/dl low riskChol 201-239 mg/dl borderline riskChol 240 mg/dl and greater high risk Cholesterol in LDL Calc [Mas s/Vol]Ordered By: Geeta Dumont on 08-29-2022 Cholesterol in LDL [Mass/Vol] 77 mg/dL 0-100 [facility] Comment on above: LDL ATP III CLASSIFI CATIONLDL less than 100 mg/dL OptimalLDL 100-129 mg/dL Near or above optimalLDL 130-159 mg/dL Borderline highLDL 160-189 mg/dL HighLDL greater than 189 mg/dL Very high Cholesterol in VLDL Calc [Ma ss/Vol]Ordered By: Geeta Dumont on 08-29-2022 Cholesterol in VLDL [Mass/Vol] 19 mg/dL [facility] Complete Blood Count Auto Di ffon 08-29-2022 Basophils (Bld) [#/Vol] 0.0 10*3/uL Normal 0.0-0.2 [facility] Comment on above: Order Comment: Reaso n for 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 Result Comment: PERF ORMED BY:[address] [place] [id number] MEDICAL DIRECTORAPRIL VEGA M.D. Performed By: #### T SH3 wRFLX, B12, CBC, CMP, URMACRERAT, LIPID, MG ####[address] Basophils/100 WBC (Bld) 0.7 % Normal . [facility] Comment on above: Order Comment: Reaso n for 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 Performed By: #### T SH3 wRFLX, B12, CBC, CMP, URMACRERAT, LIPID, MG ####[address] Eosinophils (Bld) [#/Vol] 0.4 10*3/uL Normal 0.0-0.45 [facility] Comment on above: Order Comment: Reaso n for 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 Performed By: #### T SH3 wRFLX, B12, CBC, CMP, URMACRERAT, LIPID, MG ####[address] Eosinophils/100 WBC (Bld) 6.7 % Normal . [facility] Comment on above: Order Comment: Reaso n for 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 Performed By: #### T SH3 wRFLX, B12, CBC, CMP, URMACRERAT, LIPID, MG ####[address] Erythrocyte distribution width (RBC) [Ratio] 15.2 % High 12.0-14.8 [facility] Comment on above: Order Comment: Reaso n for 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 Performed By: #### T SH3 wRFLX, B12, CBC, CMP, URMACRERAT, LIPID, MG ####[address] Hematocrit (Bld) [Volume fraction] 38.7 % Low 38.8-50.0 [facility] Comment on above: Order Comment: Reaso n for 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 Performed By: #### T SH3 wRFLX, B12, CBC, CMP, URMACRERAT, LIPID, MG ####[address] Hemoglobin (Bld) [Mass/Vol] 12.9 g/dL Low 13.0-17.0 [facility] Comment on above: Order Comment: Reaso n for 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 Performed By: #### T SH3 wRFLX, B12, CBC, CMP, URMACRERAT, LIPID, MG ####[address] Lymphocytes (Bld) [#/Vol] 0.9 10*3/uL Low 1.00-4.8 [facility] Comment on above: Order Comment: Reaso n for 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 Performed By: #### T SH3 wRFLX, B12, CBC, CMP, URMACRERAT, LIPID, MG ####[address] Lymphocytes/100 WBC (Bld) 14.4 % Normal . [facility] Comment on above: Order Comment: Reaso n for 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 Performed By: #### T SH3 wRFLX, B12, CBC, CMP, URMACRERAT, LIPID, MG ####[address] MCH (RBC) [Entitic mass] 28.8 pg Normal 27.5-35.2 [facility] Comment on above: Order Comment: Reaso n for 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 Performed By: #### T SH3 wRFLX, B12, CBC, CMP, URMACRERAT, LIPID, MG ####[address] MCV (RBC) [Entitic vol] 86.6 fL Normal 83.5-101 [facility] Comment on above: Order Comment: Reaso n for 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 Performed By: #### T SH3 wRFLX, B12, CBC, CMP, URMACRERAT, LIPID, MG ####[id number] [place] [address] [facility] Mean Corpuscular HGB Conc 33.3 g/dL Normal 32.5-35.6 [facility] Comment on above: Order Comment: Reaso n for 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 Performed By: #### T SH3 wRFLX, B12, CBC, CMP, URMACRERAT, LIPID, MG ####[place] [id number] [facility] Monocytes (Bld) [#/Vol] 0.6 10*3/uL Normal 0.0-0.8 [facility] Comment on above: Order Comment: Reaso n for 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 Performed By: #### T SH3 wRFLX, B12, CBC, CMP, URMACRERAT, LIPID, MG ####[id number] [place] [address] [facility] Monocytes/100 WBC (Bld) 9.9 % Normal . [facility] Comment on above: Order Comment: Reaso n for 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 Performed By: #### T SH3 wRFLX, B12, CBC, CMP, URMACRERAT, LIPID, MG ####[address] [address] [facility] Neutrophils (Bld) [#/Vol] 4.4 10*3/uL Normal 1.8-7.7 [facility] Comment on above: Order Comment: Reaso n for 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 Performed By: #### T SH3 wRFLX, B12, CBC, CMP, URMACRERAT, LIPID, MG ####[address] [address] [facility] Neutrophils/100 WBC (Bld) 68.3 % Normal . [facility] Comment on above: Order Comment: Reaso n for 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 Performed By: #### T SH3 wRFLX, B12, CBC, CMP, URMACRERAT, LIPID, MG ####[address] NRBC% 0.1 /100{WBC} Normal 0-0.5 [facility] Comment on above: Order Comment: Reaso n for 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 Performed By: #### T SH3 wRFLX, B12, CBC, CMP, URMACRERAT, LIPID, MG ####[address] Platelet mean volume (Bld) [Entitic vol] 7.2 fL Normal 6.6-10.1 [facility] Comment on above: Order Comment: Reaso n for 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 Performed By: #### T SH3 wRFLX, B12, CBC, CMP, URMACRERAT, LIPID, MG ####[address] Platelets (Bld) [#/Vol] 208 10*3/uL Normal 150-450 [facility] Comment on above: Order Comment: Reaso n for 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 Performed By: #### T SH3 wRFLX, B12, CBC, CMP, URMACRERAT, LIPID, MG ####[address] RBC (Bld) [#/Vol] 4.47 10*6/uL Normal 3.90-5.60 [facility] Comment on above: Order Comment: Reaso n for 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 Performed By: #### T SH3 wRFLX, B12, CBC, CMP, URMACRERAT, LIPID, MG ####[place] [id number] [facility] WBC (Bld) [#/Vol] 6.4 10*3/uL Normal 4.1-10.5 [facility] Comment on above: Order Comment: Reaso n for 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 Performed By: #### T SH3 wRFLX, B12, CBC, CMP, URMACRERAT, LIPID, MG ####[facility] [id number] [place] [address] [facility] Comprehensive Metabolic Pane anny 08-29-2022 Albumin [Mass/Vol] 4.3 g/dL Normal 3.5-5.7 [facility] Comment on above: Order Comment: Reaso n for 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 Reason for Exam Restless legs Reason for Exam Acquired hypothyroidism Performed By: #### T SH3 wRFLX, B12, CBC, CMP, URMACRERAT, LIPID, MG ####[id number] [place] [address] [facility] Albumin/Globulin [Mass ratio] 1.7 {ratio} Normal [facility] Comment on above: Order Comment: Reaso n for 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 Reason for Exam Restless legs Reason for Exam Acquired hypothyroidism Performed By: #### T SH3 wRFLX, B12, CBC, CMP, URMACRERAT, LIPID, MG ####[facility] [id number] [place] [address] [facility] ALP [Catalytic activity/Vol] 96 U/L Normal 34-104 [facility] Comment on above: Order Comment: Reaso n for 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 Reason for Exam Restless legs Reason for Exam Acquired hypothyroidism Performed By: #### T SH3 wRFLX, B12, CBC, CMP, URMACRERAT, LIPID, MG ####[id number] [place] [address] [facility] ALT [Catalytic activity/Vol] 19 U/L Normal 7-52 [facility] Comment on above: Order Comment: Reaso n for 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 Reason for Exam Restless legs Reason for Exam Acquired hypothyroidism Performed By: #### T SH3 wRFLX, B12, CBC, CMP, URMACRERAT, LIPID, MG ####[id number] [place] [address] [facility] Anion gap [Moles/Vol] 13.7 mmol/L Normal 6.0-15.0 [facility] Comment on above: Order Comment: Reaso n for 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 Reason for Exam Restless legs Reason for Exam Acquired hypothyroidism Performed By: #### T SH3 wRFLX, B12, CBC, CMP, URMACRERAT, LIPID, MG ####[facility] [place] [address] [facility] AST [Catalytic activity/Vol] 25 U/L Normal 13-39 [facility] Comment on above: Order Comment: Reaso n for Exam Type 2 diabetes mellitus with other circulatory complication Reason for Exam Restless legs Reason for Exam Acquired hypothyroidism Performed By: #### T SH3 wRFLX, B12, CBC, CMP, URMACRERAT, LIPID, MG ####[id number] [place] [address] [facility] Bilirubin [Mass/Vol] 0.6 mg/dL Normal 0.3-1.0 [facility] Comment on above: Order Comment: Reaso n for Exam Type 2 diabetes mellitus with other circulatory complication Reason for Exam Restless legs Reason for Exam Acquired hypothyroidism Performed By: #### T SH3 wRFLX, B12, CBC, CMP, URMACRERAT, LIPID, MG ####[id number] [place] [phone] [facility] Calcium [Mass/Vol] 10.6 mg/dL High 8.6-10.3 [facility] Comment on above: Order Comment: Reaso n for Exam Type 2 diabetes mellitus with other circulatory complication Reason for Exam Restless legs Reason for Exam Acquired hypothyroidism Performed By: #### T SH3 wRFLX, B12, CBC, CMP, URMACRERAT, LIPID, MG ####[facility] [id number] [place] [address] [facility] Chloride [Moles/Vol] 102 mmol/L Normal 98-107 [facility] Comment on above: Order Comment: Reaso n for Exam Type 2 diabetes mellitus with other circulatory complication Reason for Exam Restless legs Reason for Exam Acquired hypothyroidism Performed By: #### T SH3 wRFLX, B12, CBC, CMP, URMACRERAT, LIPID, MG ####[id number] [place] [address] [facility] CO2 [Moles/Vol] 28.0 mmol/L Normal 21.0-31.0 [facility] Comment on above: Order Comment: Reaso n for Exam Type 2 diabetes mellitus with other circulatory complication Reason for Exam Restless legs Reason for Exam Acquired hypothyroidism Performed By: #### T SH3 wRFLX, B12, CBC, CMP, URMACRERAT, LIPID, MG ####[facility] [id number] [place] [id number] [facility] Creatinine [Mass/Vol] 1.21 mg/dL Normal 0.70-1.30 [facility] Comment on above: Order Comment: Reaso n for Exam Type 2 diabetes mellitus with other circulatory complication Reason for Exam Restless legs Reason for Exam Acquired hypothyroidism Performed By: #### T SH3 wRFLX, B12, CBC, CMP, URMACRERAT, LIPID, MG ####[id number] [place] [id number] [facility] GFR/1.73 sq M.predicted MDRD (S/P/Bld) [Vol rate/Area] mL/min/{1.73_m2} [facility] Comment on above: Order Comment: Reaso n for Exam Type 2 diabetes mellitus with other circulatory complication Reason for Exam Restless legs Reason for Exam Acquired hypothyroidism Performed By: #### T SH3 wRFLX, B12, CBC, CMP, URMACRERAT, LIPID, MG ####[id number] [place] [id number] [facility] Globulin (S) [Mass/Vol] 2.5 g/dL [facility] Comment on above: Order Comment: Reaso n for Exam Type 2 diabetes mellitus with other circulatory complication Reason for Exam Restless legs Reason for Exam Acquired hypothyroidism Performed By: #### T SH3 wRFLX, B12, CBC, CMP, URMACRERAT, LIPID, MG ####[id number] [place] [id number] [facility] Glucose [Mass/Vol] 158 mg/dL High 70-100 [facility] Comment on above: Order Comment: Reaso n for Exam Type 2 diabetes mellitus with other circulatory complication Reason for Exam Restless legs Reason for Exam Acquired hypothyroidism Result Comment: [place] Glucose Reference Range is dependent on time and content of last meal. Glucose of more than 200 mg/dL in a nonstressed, ambulatory subject supports the diagnosis of Diabetes Mellitus. ADA recommended reference range Performed By: #### T SH3 wRFLX, B12, CBC, CMP, URMACRERAT, LIPID, MG ####[address] [place] [address] [facility] Potassium [Moles/Vol] 3.7 mmol/L Normal 3.5-5.1 [facility] Comment on above: Order Comment: Reaso n for Exam Type 2 diabetes mellitus with other circulatory complication Reason for Exam Restless legs Reason for Exam Acquired hypothyroidism Performed By: #### T SH3 wRFLX, B12, CBC, CMP, URMACRERAT, LIPID, MG ####[id number] [place] [phone] [facility] Protein [Mass/Vol] 6.8 g/dL Normal 6.4-8.9 [facility] Comment on above: Order Comment: Reaso n for Exam Type 2 diabetes mellitus with other circulatory complication Reason for Exam Restless legs Reason for Exam Acquired hypothyroidism Performed By: #### T SH3 wRFLX, B12, CBC, CMP, URMACRERAT, LIPID, MG ####[address] [address] [facility] Sodium [Moles/Vol] 140 mmol/L Normal 136-145 [facility] Comment on above: Order Comment: Reaso n for Exam Type 2 diabetes mellitus with other circulatory complication Reason for Exam Restless legs Reason for Exam Acquired hypothyroidism Performed By: #### T SH3 wRFLX, B12, CBC, CMP, URMACRERAT, LIPID, MG ####[address] [place] [address] [facility] Urea nitrogen [Mass/Vol] 30 mg/dL High 7-25 [facility] Comment on above: Order Comment: Reaso n for Exam Type 2 diabetes mellitus with other circulatory complication Reason for Exam Restless legs Reason for Exam Acquired hypothyroidism Performed By: #### T SH3 wRFLX, B12, CBC, CMP, URMACRERAT, LIPID, MG ####[address] [place] [address] [facility] Creatinine [Mass/volume] in Serum or PlasmaOrdered By: Geeta Dumont on 08-29-2022 Creatinine [Mass/Vol] 1.21 mg/dL 0.70-1.30 [facility] Creatinine [Mass/volume] in UrineOrdered By: Geeta Dumont on 08-29-2022 Creatinine (U) [Mass/Vol] 152.0 mg/dL 14.0-26.0 [facility] Eosinophils Auto (Bld) [#/Vo l]Ordered By: Geeta Dumont on 08-29-2022 Eosinophils (Bld) [#/Vol] 0.4 10*3/uL 0.0-0.45 [facility] Eosinophils/100 WBC Auto (Bl d)Ordered By: Geeta Dumont on 08-29-2022 Eosinophils/100 WBC (Bld) 6.7 % . [facility] Erythrocyte distribution wid th Auto (RBC) [Ratio]Ordered By: Geeta Dumont on 08-29-2022 Erythrocyte distribution width (RBC) [Ratio] 15.2 % 12.0-14.8 [facility] Globulin Calc (S) [Mass/Vol] Ordered By: Geeta Dumont on 08-29-2022 Globulin (S) [Mass/Vol] 2.5 g/dL [facility] Glucose [Mass/volume] in Ser um or PlasmaOrdered By: Geeta Dumont on 08-29-2022 Glucose [Mass/Vol] 158 mg/dL 70-100 [facility] Comment on above: ADA recommended refe rence rangeRandom Glucose Reference Range is dependent on time and content of last meal. Glucose of more than 200 mg/dL in a nonstressed, ambulatory subject supports the diagnosis of Diabetes Mellitus. Hematocrit Auto (Bld) [Volum e fraction]Ordered By: Geeta Dumont on 08-29-2022 Hematocrit (Bld) [Volume fraction] 38.7 % 38.8-50.0 [facility] Hemoglobin [Mass/volume] in BloodOrdered By: Geeta Dumont on 08-29-2022 Hemoglobin (Bld) [Mass/Vol] 12.9 g/dL 13.0-17.0 [facility] Leukocytes [#/volume] correc martin for nucleated erythrocytes in Blood by Automated counOrdered By: Geeta Dumont on 08-29-2022 WBC corrected for nucl RBC Auto (Bld) [#/Vol] 6.4 10*3/uL 4.1-10.5 [facility] Lipid Panelon 08-29-2022 Cholesterol [Mass/Vol] 141 mg/dL Normal 140-200 [facility] Comment on above: Order Comment: Reaso n for Exam Type 2 diabetes mellitus with other circulatory complication Reason for Exam Restless legs Reason for Exam Acquired hypothyroidism Result Comment: Chol less than 200 mg/dl low risk Chol 201-239 mg/dl borderline risk Chol 240 mg/dl and greater high risk Performed By: #### T SH3 wRFLX, B12, CBC, CMP, URMACRERAT, LIPID, MG ####[facility] [id number] [place] [id number] [facility] Cholesterol in HDL [Mass/Vol] 45 mg/dL Normal 23-92 [facility] Comment on above: Order Comment: Reaso n for Exam Type 2 diabetes mellitus with other circulatory complication Reason for Exam Restless legs Reason for Exam Acquired hypothyroidism Result Comment: HDL CHOL ATP-III CLASSIFICATION Cardiovascular Risk HDL > or equal to 60 mg/dL LOW HDL < 40 mg/dL HIGH Performed By: #### T SH3 wRFLX, B12, CBC, CMP, URMACRERAT, LIPID, MG ####[address] [place] [address] [facility] Cholesterol.total/Cho lesterol in HDL [Mass ratio] 3.1 {ratio} Normal <5.0 [facility] Comment on above: Order Comment: Reaso n for Exam Type 2 diabetes mellitus with other circulatory complication Reason for Exam Restless legs Reason for Exam Acquired hypothyroidism Performed By: #### T SH3 wRFLX, B12, CBC, CMP, URMACRERAT, LIPID, MG ####[facility] [id number] [place] [address] [facility] LDL Cholesterol,Calculate d 77 mg/dL Normal 0-100 [facility] Comment on above: Order Comment: Reaso [...] wRFLX, B12, CBC, CMP, URMACRERAT, LIPID, MG ####[place] [id number] Triglyceride w/Reflex 97 mg/dL Normal 0-149 [facility] Comment on above: Order Comment: Reaso [...] wRFLX, B12, CBC, CMP, URMACRERAT, LIPID, MG ####[place] [id number] VLDL CHOLESTEROL 19 mg/dL Normal [facility] Comment on above: Order Comment: Reaso n for Exam Type 2 diabetes mellitus with other circulatory complication Reason for Exam Restless legs Reason for Exam Acquired hypothyroidism Performed By: #### T SH3 wRFLX, B12, CBC, CMP, URMACRERAT, LIPID, MG ####[address] Lymphocytes Auto (Bld) [#/Vo l]Ordered By: Geeta Dumont on 08-29-2022 Lymphocytes (Bld) [#/Vol] 0.9 10*3/uL 1.00-4.8 [facility] Lymphocytes/100 WBC Auto (Bl d)Ordered By: Geeta Dumont on 08-29-2022 Lymphocytes/100 WBC (Bld) 14.4 % . [facility] MCH Auto (RBC) [Entitic mass ]Ordered By: Geeta Dumont on 08-29-2022 MCH (RBC) [Entitic mass] 28.8 pg 27.5-35.2 [facility] MCHC Auto (RBC) [Mass/Vol]Or dered By: Geeta Dumont on 08-29-2022 MCHC (RBC) [Mass/Vol] 33.3 g/dL 32.5-35.6 [facility] MCV Auto (RBC) [Entitic vol] Ordered By: Geeta Dumont on 08-29-2022 MCV (RBC) [Entitic vol] 86.6 fL 83.5-101 [facility] Magnesiumon 08-29-2022 Magnesium [Mass/Vol] 1.6 mg/dL Low 1.9-2.7 [facility] Comment on above: Order Comment: Reaso n for Exam Type 2 diabetes mellitus with other circulatory complication Reason for Exam Restless legs Reason for Exam Acquired hypothyroidism Performed By: #### T SH3 wRFLX, B12, CBC, CMP, URMACRERAT, LIPID, MG ####[facility] [id number] Magnesium [Mass/volume] in S [place] or PlasmaOrdered By: Geeta Dumont on 08-29-2022 Magnesium [Mass/Vol] 1.6 mg/dL 1.9-2.7 [facility] MicroAlb Creat Ratio,Uon Albumin DL <= 20 mg/L (U) [Mass/Vol] 6.5 mg/dL High 0.0-1.8 [facility] Comment on above: Order Comment: Reaso n for Exam Type 2 diabetes mellitus with other circulatory complication Performed By: #### T SH3 wRFLX, B12, CBC, CMP, URMACRERAT, LIPID, MG ####[facility] [id number] Creatinine, Urine (Random) 152.0 mg/dL High 14.0-26.0 [facility] Comment on above: Order Comment: Reaso n for Exam Type 2 diabetes mellitus with other circulatory complication Performed By: #### T SH3 wRFLX, B12, CBC, CMP, URMACRERAT, LIPID, MG ####[facility] [id number] [place] [address] [facility] Microalbumin/Creatini ne Ratio 42.0 mg/g High 0.0-30.0 [facility] Comment on above: Order Comment: Reaso n for 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 Greater than 300 mg/g is consistent with clinical nephropathy. (Am. J. Kidney Disease 1995, 25:107)PERFORMED BY:[facility] [place], [place] [phone] MEDICAL DIRECTORAPRIL VEGA M.D. Performed By: #### T SH3 wRFLX, B12, CBC, CMP, URMACRERAT, LIPID, MG ####[facility] [id number] [place] [address] [facility] Microalbumin [Mass/volume] i n UrineOrdered By: Geeta Dumont on 08-29-2022 Albumin DL <= 20 mg/L (U) [Mass/Vol] 6.5 mg/dL 0.0-1.8 [facility] Monocytes Auto (Bld) [#/Vol] Ordered By: Geeta Dumont on 08-29-2022 Monocytes (Bld) [#/Vol] 0.6 10*3/uL 0.0-0.8 [facility] Monocytes/100 WBC Auto (Bld) Ordered By: Geeta Dumont on 08-29-2022 Monocytes/100 WBC (Bld) 9.9 % . [facility] Neutrophils Auto (Bld) [#/Vo l]Ordered By: Geeta Dumont on 08-29-2022 Neutrophils (Bld) [#/Vol] 4.4 10*3/uL 1.8-7.7 [facility] Neutrophils/100 WBC Auto (Bl d)Ordered By: Geeta Dumont on 08-29-2022 Neutrophils/100 WBC (Bld) 68.3 % . [facility] No Panel InformationOrdered By: Geeta Dumont on 08-29-2022 Estimated GFR (CKD-EPI) > 60.0 mL/Min [facility] Creatinine Clearance (Chem N/A [facility] Nucleated erythrocytes [Pres ence] in Blood by Automated countOrdered By: Geeta Dumont on 08-29-2022 Nucleated RBC Auto Ql (Bld) 0.1 /100{WBC} 0-0.5 [facility] Platelet mean volume Auto (B ld) [Entitic vol]Ordered By: Geeta Dumont on 08-29-2022 Platelet mean volume (Bld) [Entitic vol] 7.2 fL 6.6-10.1 [facility] Platelets Auto (Bld) [#/Vol] Ordered By: Geeta Dumont on 08-29-2022 Platelets (Bld) [#/Vol] 208 10*3/uL 150-450 [facility] Potassium [Moles/volume] in Serum or PlasmaOrdered By: Geeta Dumont on 08-29-2022 Potassium [Moles/Vol] 3.7 mmol/L 3.5-5.1 [facility] Protein [Mass/volume] in Ser um or PlasmaOrdered By: Geeta Dumont on 08-29-2022 Protein [Mass/Vol] 6.8 g/dL 6.4-8.9 [facility] RBC Auto (Bld) [#/Vol]Ordere d By: Geeta Dumont on 08-29-2022 RBC (Bld) [#/Vol] 4.47 10*6/uL 3.90-5.60 [facility] Serum or plasma albumin/glob ulin mass ratioOrdered By: Geeta Dumont on 08-29-2022 Albumin/Globulin [Mass ratio] 1.7 {ratio} [facility] Serum or plasma anion gap de terminationOrdered By: Geeta Dumont on 08-29-2022 Anion gap [Moles/Vol] 13.7 mmol/L 6.0-15.0 [facility] Serum or plasma high density lipoprotein (HDL) cholesterol measurementOrdered By: Geeta Dumont on 08-29-2022 Cholesterol in HDL [Mass/Vol] 45 mg/dL 23-92 [facility] Comment on above: HDL CHOL ATP-III CLA SSIFICATION Cardiovascular RiskHDL > or equal to 60 mg/dL LOWHDL < 40 mg/dL HIGH Serum or plasma total choles terol/high density lipoprotein (HDL) cholesterol mass ratOrdered By: Geeta Dumont on 08-29-2022 Cholesterol.total/Cho lesterol in HDL [Mass ratio] 3.1 {ratio} <5.0 [facility] Sodium [Moles/volume] in Ser um or PlasmaOrdered By: Geeta Dumont on 08-29-2022 Sodium [Moles/Vol] 140 mmol/L 136-145 [facility] Thyroid Stim Hormone w/Rflxo n 08-29-2022 Thyroid Stim Hormone w/Rflx 4.34 u[iU]/mL Normal 0.45-5.33 [facility] Comment on above: Order Comment: Reaso n for Exam Type 2 diabetes mellitus with other circulatory complication Reason for Exam Restless legs Reason for Exam Acquired hypothyroidism Result Comment: PERF ORMED BY:[facility] [place], [place] [id number] MEDICAL DIRECTORAPRIL VEGA M.D. Performed By: #### T SH3 wRFLX, B12, CBC, CMP, URMACRERAT, LIPID, MG ####[facility] [id number] [place] [id number] [facility] Thyrotropin [Units/volume] i n Serum or PlasmaOrdered By: Geeta Dumont on 08-29-2022 TSH Qn 4.34 m[IU]/L 0.45-5.33 [facility] Triglyceride [Mass/volume] i n Serum or PlasmaOrdered By: Geeta Dumont on 08-29-2022 Triglyceride [Mass/Vol] 97 mg/dL 0-149 [facility] Comment on above: TRIG ATP III CLASSIF ICATIONTRIG less than 150 mg/dL NormalTRIG 150-199 mg/dL Borderline highTRIG 200-500 mg/dL High TRIG greater than 500 mg/dL Very highStandard traceable to the Center for Disease Conrtrol and Prevention (CDC) test method. Urea nitrogen [Mass/volume] in Serum or PlasmaOrdered By: Geeta Dumont on 08-29-2022 Urea nitrogen [Mass/Vol] 30 mg/dL 10-09 [facility] Urine microalbumin/creatinin e mass ratioOrdered By: Geeta Dumont on 08-29-2022 Albumin/Creatinine DL <= 20 mg/L (U) [Mass ratio] 42.0 mg/g 0.0-30.0 [facility] Comment on above: 30-300 mg/g indicate s an increased risk for diabetic nephropathy. Greater than 300 mg/g is consistent with clinical nephropathy. (Am. J. Kidney Disease 1995, 25:107) Vitamin B12on 08-29-2022 Cobalamin (Vitamin B12) [Mass/Vol] 304 pg/mL Normal 180-914 [facility] Comment on above: Order Comment: Reaso n for Exam Type 2 diabetes mellitus with other circulatory complication Reason for Exam Restless legs Reason for Exam Acquired hypothyroidism Performed By: #### T SH3 wRFLX, B12, CBC, CMP, URMACRERAT, LIPID, MG ####[facility] [id number] [place] [address] [facility] Vitamin B12 ser/plasOrdered By: Geeta Dumont on 08-29-2022 Cobalamin (Vitamin B12) [Mass/Vol] 304 pg/mL 180-914 [facility] WBC Auto (Bld) [#/Vol]Ordere d By: Geeta Dumont on 08-29-2022 WBC (Bld) [#/Vol] 6.4 10*3/uL 4.1-10.5 [facility] XR chest 2V*on 08-28-2022 XR chest 2V* Normal [facility] XR chest 2V* [facility] [employer] Other XR chest 2V* [facility] [employer] Other XR chest 2V* 1[address] [facility] [employer] Other XR chest 2V* [place] [address] [facility] [employer] Other XR chest 2V* XRay Report [employer] Other XR chest 2V* Signed [employer] Other XR chest 2V* Patient: Samantha Potter MR#: [id number] [employer] Other XR chest 2V* 357 [employer] Other XR chest 2V* : 1955 Acct:[id number] [employer] Other XR chest 2V* Age/Sex: 67 / M ADM Date: 08/28/22 [employer] Other XR chest 2V* Loc: [facility] Room: Type : [facility] [employer] Other XR chest 2V* Attending Dr: Jorje Dumont APRN, [employer]PERINT[employer]ENT [employer]CHANICAL-C [employer] Other XR chest 2V* Copies to: Geeta Dumont APRN, ISABELLA [employer] Other XR chest 2V* Ordering Provider: Geeta Dumont APRN, ISABELLA [employer] Other XR chest 2V* Date of Service: 08/28/22 [employer] Other XR chest 2V* 7[address]) XR/XR chest 2V*: Other congestive heart failure;Shortness of breath [employer] Other XR chest 2V* Plain film chest 2 view [employer] Other XR chest 2V* HISTORY: Shortness o f breath [employer] Other XR chest 2V* COMPARISON: 03/13/2019 [employer] Other XR chest 2V* FINDINGS: [employer] Other XR chest 2V* SUPPORT DEVICES: None N [employer] Other XR chest 2V* POSTSURGICAL CHANGES: None [employer] Other XR chest 2V* HEART: Within normal limits [employer] Other XR chest 2V* PULMONARY SALOME: With in normal limits [employer] Other XR chest 2V* MEDIASTINUM: Unremarkable [employer] Other XR chest 2V* LUNGS AND PLEURA: Si milar basilar parenchymal densities identified. Consider atelectasis/scarring. [employer] Other XR chest 2V* No new consolidation , pleural effusion or pneumothorax. [employer] Other XR chest 2V* BONY STRUCTURES: Intact [employer] Other XR chest 2V* ADDITIONAL FINDINGS None [employer] Other XR chest 2V* X R/XR chest 2V* [employer] Other XR chest 2V* IMPRESSION: Stable b asilar parenchymal densities suggesting atelectasis/scarring. [employer] Other XR chest 2V* Impression dictated by: Kwasi Tomlin M.D.08/28/2022 12:11 PM [employer] Other XR chest 2V* Dictation Location: [facility] [employer] Other XR chest 2V* Transcribed By: PWS 08/28/22 1211 [employer] Other XR chest 2V* Dictated By: Pasha Tomlin DO 08/28/22 1209 [employer] Other XR chest 2V* Signed By: [employer] Other XR chest 2V* 08/28/22 1211 [employer] [facility] [employer] Other Echocardiogramon 07-02-2022 [facility] [address] [place] [address], [address], [place] [address] TRANSTHORACIC ECHOCARDIOGRAM REPORT Patient Name: SANDRA POTTER Reading Physician: [id number] Deanne Gaxiola MD Study Date: 07/02/2022 Referring Physician: VIRIDIANA BURGESS MRN/PID: [id number] PCP: Teri Aragon Accession/Order#: [id number] Department Location: [facility] Date of : 1955 Fellow: Gender: M Nurse: Ede Morton RN Admit Date: Automatic Vulcanizing Operator: Marichuy Duarte RDCS, RVT Height: 180.34 cm CC Report to: Weight: 108.41 kg Study Type: Echocardiogram BSA: 2.27 m2 Diagnosis/ICD: I42.1-Obstructive hypertrophic cardiomyopathy; Z95.818-Presence of other cardiac implants and grafts Indication: Chronic Atrial Fibrillation, CAD, COPD, Diabetes, HTN, Hyperlipidemia, PTCA-2007, Former Smoker, Obesity, Large B-Cell Lymphoma Procedure/CPT: Echo Complete w Full Doppler-[id number] Study Detail: The following Echo studies were [...] 1.0 m/s (0.6-0.9m/s) PV Max P.1 mmHg 27300 Deanne Gaxiola MD Electronically signed on 07/02/2022 at 5:06:32 PM Final Normal [facility] XR lumbar spine AP/LAT/FLX/E XTon 04-26-2022 XR lumbar spine AP/LAT/FLX/EXT [facility] [employer] Other XR lumbar spine AP/LAT/FLX/EXT [facility] [employer] Other XR lumbar spine AP/LAT/FLX/EXT [address] [place] [address] [employer] Other XR lumbar spine AP/LAT/FLX/[place] [address] [employer] Other XR lumbar spine AP/LAT/FLX/EXT XRay Report [employer] Other XR lumbar spine AP/LAT/FLX/EXT Signed [employer] Other XR lumbar spine AP/LAT/FLX/EXT Patient: Sandra Potter MR#: [id number] [employer] Other XR lumbar spine AP/LAT/FLX/EXT 357 [employer] Other XR lumbar spine AP/LAT/FLX/EXT : 1955 Acct:[id number] [employer] Other XR lumbar spine AP/LAT/FLX/EXT Age/Sex: 66 / M ADM Date: 04/26/22 [employer] Other XR lumbar spine AP/LAT/FLX/EXT Loc: [facility] Room: Type: [facility] [employer] Other XR lumbar spine AP/LAT/FLX/EXT Attending Dr: Lavon Sandoval MD [employer] Other XR lumbar spine AP/LAT/FLX/EXT Copies to: Lavon Sandoval MD [employer] Other XR lumbar spine AP/LAT/FLX/EXT Ordering Provider: Lavon Sandoval MD [employer] Other XR lumbar spine AP/LAT/FLX/EXT Date of Service: 04/26/22 [employer] Other XR lumbar spine AP/LAT/FLX/EXT XR/XR lumbar spine AP/LAT/FLX/EXT: Osteoarthritis of lumbosacral spine [employer] Other XR lumbar spine AP/LAT/FLX/EXT without myelopathy [employer] Other XR lumbar spine AP/LAT/FLX/EXT XR lumbar spine AP/LAT/FLX/EXT 04/26/2022 10:27 AM [employer] Other XR lumbar spine AP/LAT/FLX/EXT SIGNS AND SYMPTOMS: Low back pain worse with flexion [employer] Other XR lumbar spine AP/LAT/FLX/EXT PROTOCOLS: Frontal, lateral, and flexion-extension views of the lumbar spine [employer] Other XR lumbar spine AP/LAT/FLX/EXT COMPARISON: None [employer] Other XR lumbar spine AP/LAT/FLX/EXT FINDINGS: [employer] Other XR lumbar spine AP/LAT/FLX/EXT There is a dextro convex curvature of the thoracolumbar spine. There is severe intervertebral disc [employer] Other XR lumbar spine AP/LAT/FLX/EXT height loss throughout the thoracolumbar spine sparing the L3-L4 and L4-L5 levels. Facet [employer] Other XR lumbar spine AP/LAT/FLX/EXT degenerative changes are present, greatest at L4-5. The sacrum and sacroiliac joints are normal. [employer] Other XR lumbar spine AP/LAT/FLX/EXT Atherosclerotic changes are noted in the abdominal aorta. [employer] Other XR lumbar spine AP/LAT/FLX/EXT XR/XR lumbar spine AP/LAT/FLX/EXT [employer] Other XR lumbar spine AP/LAT/FLX/EXT IMPRESSION: [employer] Other XR lumbar spine AP/LAT/FLX/EXT There is a dextro convex curvature of thoracolumbar spine with severe multilevel degenerative [employer] Other XR lumbar spine AP/LAT/FLX/EXT change. [employer] Other XR lumbar spine AP/LAT/FLX/EXT No fracture or subluxation. [employer] Other XR lumbar spine AP/LAT/FLX/EXT No pathologic movement on flexion or extension. [employer] Other XR lumbar spine AP/LAT/FLX/EXT Impression dictated by: Juliano Conteh M.D.04/26/2022 4:15 PM [employer] Other XR lumbar spine AP/LAT/FLX/EXT Dictation Location: [place] [address] [employer] Other XR lumbar spine AP/LAT/FLX/EXT Transcribed By: CHAPINCITO 04/26/22 [facility] [employer] Other XR lumbar spine AP/LAT/FLX/EXT Dictated By: Juliano Conteh II, MD 04/26/22 [facility] [employer] Other XR lumbar spine AP/LAT/FLX/EXT Signed By: [employer] Other XR lumbar spine AP/LAT/FLX/EXT 04/26/22 1615 [employer] Other Glucose Glucometer (BldC) [M ass/Vol]Ordered By: Arron Valverde on 04-03-2022 Glucose [Mass/Vol] 114 mg/dL [facility] Comment on above: Random Glucose Refer ence Range is dependent on time and content of last meal. Glucose of more than 200 mg/dL in a nonstressed, ambulatory subject supports the diagnosis of Diabetes Mellitus. A1C HEMOGLOBINon 04-02-2022 HbA1c (Bld) [Mass fraction] 6.7 % [employer] Other HbA1c (Bld) [Mass fraction]o n 04-02-2022 A1C HEMOGLOBIN [employer] Other Albumin [Mass/volume] in Ser um or PlasmaOrdered By: Stephanie Burgess on 03-28-2022 Albumin [Mass/Vol] 3.9 g/dL 3.2-5.5 [facility] Basophils Auto (Bld) [#/Vol] Ordered By: Joana Farooq on 03-28-2022 Basophils (Bld) [#/Vol] 0.0 10*3/uL 0.0-0.2 [facility] Basophils/100 WBC Auto (Bld) Ordered By: Joana Farooq on 03-28-2022 Basophils/100 WBC (Bld) 0.4 % . [facility] Cholesterol [Mass/volume] in Serum or PlasmaOrdered By: Stephanie Burgess on 03-28-2022 Cholesterol [Mass/Vol] 147 mg/dL 140-200 [facility] Comment on above: Chol less than 200 m g/dl low riskChol 201-239 mg/dl borderline riskChol 240 mg/dl and greater high risk Cholesterol in LDL Calc [Mas s/Vol]Ordered By: Stephanie Burgess on 03-28-2022 Cholesterol in LDL [Mass/Vol] 85 mg/dL 0-100 [facility] Comment on above: LDL ATP III CLASSIFI CATIONLDL less than 100 mg/dL OptimalLDL 100-129 mg/dL Near or above optimalLDL 130-159 mg/dL Borderline highLDL 160-189 mg/dL HighLDL greater than 189 mg/dL Very high Cholesterol in VLDL Calc [Ma ss/Vol]Ordered By: Stephanie Burgess on 03-28-2022 Cholesterol in VLDL [Mass/Vol] 16 mg/dL [facility] Creatinine and Glomerular fi ltration rate.predicted panel (S/P/Bld)Ordered By: Stephanie Burgess on 03-28-2022 Creatinine [Mass/Vol] 1.34 mg/dL 0.64-1.27 [facility] Eosinophils Auto (Bld) [#/Vo l]Ordered By: Joana Farooq on 03-28-2022 Eosinophils (Bld) [#/Vol] 0.5 10*3/uL 0.0-0.45 [facility] Eosinophils/100 WBC Auto (Bl d)Ordered By: Joana Farooq on 03-28-2022 Eosinophils/100 WBC (Bld) 6.9 % . [facility] Erythrocyte distribution wid th Auto (RBC) [Ratio]Ordered By: Joana Farooq on 03-28-2022 Erythrocyte distribution width (RBC) [Ratio] 16.4 % 12.0-14.8 [facility] Estimated glomerular filtrat ion rate (GFR) non- AmericanOrdered By: Stephanie Burgess on 03-28-2022 GFR/1.73 sq M.predicted among non-blacks MDRD (S/P/Bld) [Vol rate/Area] 54 mL/Min [facility] Globulin Calc (S) [Mass/Vol] Ordered By: Stephanie Burgess on 03-28-2022 Globulin (S) [Mass/Vol] 3.0 g/dL [facility] Hematocrit Auto (Bld) [Volum e fraction]Ordered By: Joana Farooq on 03-28-2022 Hematocrit (Bld) [Volume fraction] 41.2 % 38.8-50.0 [facility] Hemoglobin [Mass/volume] in BloodOrdered By: Joana Farooq on 03-28-2022 Hemoglobin (Bld) [Mass/Vol] 13.1 g/dL 13.0-17.0 [facility] Laboratory - Chemistry and C hemistry - challengeon 03-28-2022 Cholesterol [Mass/Vol] 147\S\147 Normal 140-200 -[facility] 250 DO Work Phone: Comment on above: Chol less than 200 m g/dl low risk Chol 201-239 mg/dl borderline risk Chol 240 mg/dl and greater high risk Cholesterol in LDL [Mass/Vol] 85\S\85 Normal 0-100 [facility] 250 DO Work Phone: Comment [...] RBC Auto (Bld) [#/Vol] 6.7 10*3/uL 4.1-10.5 [facility] Lymphocytes Auto (Bld) [#/Vo l]Ordered By: Joana Farooq on 03-28-2022 Lymphocytes (Bld) [#/Vol] 0.9 10*3/uL 1.00-4.8 [facility] Lymphocytes/100 WBC Auto (Bl d)Ordered By: Joana Farooq on 03-28-2022 Lymphocytes/100 WBC (Bld) 13.0 % . [facility] MCH Auto (RBC) [Entitic mass ]Ordered By: Joana Farooq on 03-28-2022 MCH (RBC) [Entitic mass] 27.1 pg 27.5-35.2 [facility] MCHC Auto (RBC) [Mass/Vol]Or dered By: Joana Farooq on 03-28-2022 MCHC (RBC) [Mass/Vol] 31.7 g/dL 32.5-35.6 [facility] MCV Auto (RBC) [Entitic vol] Ordered By: Joana Farooq on 03-28-2022 MCV (RBC) [Entitic vol] 85.4 fL 83.5-101 [facility] Monocytes Auto (Bld) [#/Vol] Ordered By: Joana Farooq on 03-28-2022 Monocytes (Bld) [#/Vol] 0.8 10*3/uL 0.0-0.8 [facility] Monocytes/100 WBC Auto (Bld) Ordered By: Joana Farooq on 03-28-2022 Monocytes/100 WBC (Bld) 11.6 % . [facility] Neutrophils Auto (Bld) [#/Vo l]Ordered By: Joana Farooq on 03-28-2022 Neutrophils (Bld) [#/Vol] 4.6 10*3/uL 1.8-7.7 [facility] Neutrophils/100 WBC Auto (Bl d)Ordered By: Joana Farooq on 03-28-2022 Neutrophils/100 WBC (Bld) 68.1 % . [facility] No Panel Informationon 03-28 3.3\S\3.3 Normal <5.0 [facility] y 250 DO Work Phone: Comment on above: PERFORMED BY:[address] [place], [place] [phone] MEDICAL DIRECTORAPRIL VEGA M.D. 16\S\16 Normal [facility] y 250 DO Work Phone: 84\S\84 Normal 35-149 [facility] y 250 DO Work Phone: Comment on above: TRIG ATP III CLASSIF ICATION TRIG less than 150 mg/dL Normal TRIG 150-199 mg/dL Borderline high TRIG 200-500 mg/dL High TRIG greater than 500 mg/dL Very high Standard traceable to the Center for Disease Conrtrol and Prevention (CDC) test method. 45\S\45 Normal 29-71 [facility] DO Work Phone: Comment on above: HDL CHOL ATP-III CLA SSIFICATION Cardiovascular Risk HDL > or equal to 60 mg/dL LOW HDL < 40 mg/dL HIGH 6.9\S\6.9 Normal 6.1-7.9 [facility] 250 DO Work Phone: [phone] 10.5\S\10.5 above high threshold 8.2-10.2 [facility] 250 DO Work Phone: [phone] 13.1\S\13.1 Normal 6.0-15.0 [facility] 250 DO Work Phone: [phone] 26.6\S\26.6 Normal 22.0-30.0 [facility] 250 DO Work Phone: [phone] 101\S\101 Normal 95-114 [facility] 250 DO Work Phone: [phone] 4.7\S\4.7 Normal 3.5-5.1 [facility] 250 DO Work Phone: [phone] 18\S\18 Normal 10-60 [facility] 250 DO Work Phone: [phone] 24\S\24 above high threshold 9-23 [facility] 250 DO Work Phone: [phone] 0.7\S\0.7 Normal 0.3-1.2 [facility] 250 DO Work Phone: [phone] 1.3\S\1.3 Normal [facility] 250 DO Work Phone: [phone] 3.0\S\3.0 Normal [facility] 250 DO Work Phone: [phone] 3.9\S\3.9 Normal 3.2-5.5 [facility] 250 DO Work Phone: [phone] 99\S\99 above high threshold 32-92 [facility] 250 DO Work Phone: [phone] Comment on above: PERFORMED BY:[place] [address] [place], [place] [phone] MEDICAL DIRECTORAPRIL VEGA M.D. 136\S\136 Normal 136-146 -[facility] y 250 DO Work Phone: > 60 Normal [facility] 250 DO Work Phone: Comment on above: GFR estimated refere nce range: According to KDOQI guidelines, <60 ml/min/1.73m2 is sufficient to diagnose a patient with chronic kidney disease. 54\S\54 Normal [facility] 250 DO Work Phone: 1.34\S\1.34 above high threshold 0.64-1.27 [facility] y 250 DO Work Phone: 133\S\133 above high threshold 70-100 [facility] Work Phone: Comment on above: Random Glucose Refer ence Range is dependent on time and content of last meal. Glucose of more than 200 mg/dL in a nonstressed, ambulatory subject supports the diagnosis of Diabetes Mellitus. ADA recommended reference range No Panel InformationOrdered By: Stephanie Burgess on 03-28-2022 Estimated GFR () > 60 mL/Min [facility] Comment on above: GFR estimated refere nce range: According to KDOQI guidelines, <60 ml/min/1.73m2 is sufficient to diagnose a patient with chronic kidney disease. Pharmacy Creatinine Clearance (Chem N/A [facility] Nucleated erythrocytes [Pres ence] in Blood by Automated countOrdered By: Joana Farooq on 03-28-2022 Nucleated RBC Auto Ql (Bld) 0.1 /100{WBC} 0-0.5 [facility] Platelet mean volume Auto (B ld) [Entitic vol]Ordered By: Joana Farooq on 03-28-2022 Platelet mean volume (Bld) [Entitic vol] 7.2 fL 6.6-10.1 [facility] Platelets Auto (Bld) [#/Vol] Ordered By: Joana Farooq on 03-28-2022 Platelets (Bld) [#/Vol] 207 10*3/uL 150-450 [facility] Protein [Mass/volume] in Ser um or PlasmaOrdered By: Stephanie Burgess on 03-28-2022 Protein [Mass/Vol] 6.9 g/dL 6.1-7.9 [facility] RBC Auto (Bld) [#/Vol]Ordere d By: Joana Farooq on 03-28-2022 RBC (Bld) [#/Vol] 4.83 10*6/uL 3.90-5.60 [facility] Serum or plasma alanine bartholomew otransferase measurement without P-5'-P (enzymatic activiOrdered By: Stephanie Burgess on 03-28-2022 ALT No additional P-5'-P [Catalytic activity/Vol] 18 U/L 10-60 [facility] Serum or plasma albumin/glob ulin mass ratioOrdered By: Stephanie Burgess on 03-28-2022 Albumin/Globulin [Mass ratio] 1.3 {ratio} [facility] Serum or plasma alkaline dorothea sphatase measurement (enzymatic activity/volume)Ordered By: Stephanie Burgess on 03-28-2022 ALP [Catalytic activity/Vol] 99 U/L 32-92 [facility] Serum or plasma anion gap de terminationOrdered By: Stephanie Burgess on 03-28-2022 Anion gap [Moles/Vol] 13.1 mmol/L 6.0-15.0 [facility] Serum or plasma aspartate am inotransferase measurement (enzymatic activity/volume)Ordered By: Stephanie Burgess on 03-28-2022 AST [Catalytic activity/Vol] 24 U/L 10-42 [facility] Serum or plasma calcium victor m urement (mass/volume)Ordered By: Stephanie Burgess on 03-28-2022 Calcium [Mass/Vol] 10.5 mg/dL 8.2-10.2 [facility] Serum or plasma chloride meenakshi surement (moles/volume)Ordered By: Stephanie Burgess on 03-28-2022 Chloride [Moles/Vol] 101 mmol/L 95-114 [facility] Serum or plasma glucose victor m urement (mass/volume)Ordered By: Stephanie Burgess on 03-28-2022 Glucose [Mass/Vol] 133 mg/dL 70-100 [facility] Comment on above: ADA recommended refe rence rangeRandom Glucose Reference Range is dependent on time and content of last meal. Glucose of more than 200 mg/dL in a nonstressed, ambulatory subject supports the diagnosis of Diabetes Mellitus. Serum or plasma high density lipoprotein (HDL) cholesterol measurementOrdered By: Stephanie Burgess on 03-28-2022 Cholesterol in HDL [Mass/Vol] 45 mg/dL 29-71 [facility] Comment on above: HDL CHOL ATP-III CLA SSIFICATION Cardiovascular RiskHDL > or equal to 60 mg/dL LOWHDL < 40 mg/dL HIGH Serum or plasma potassium me asurement (moles/volume)Ordered By: Stephanie Burgess on 03-28-2022 Potassium [Moles/Vol] 4.7 mmol/L 3.5-5.1 [facility] Serum or plasma sodium measu rement (moles/volume)Ordered By: Stephanie Burgess on 03-28-2022 Sodium [Moles/Vol] 136 mmol/L 136-146 [facility] Serum or plasma total biliru bin measurement (mass/volume)Ordered By: Stephanie Burgess on 03-28-2022 Bilirubin [Mass/Vol] 0.7 mg/dL 0.3-1.2 [facility] Serum or plasma total carbon dioxide measurement (moles/volume)Ordered By: Stephanie Burgess on 03-28-2022 CO2 [Moles/Vol] 26.6 mmol/L 22.0-30.0 [facility] Serum or plasma total choles terol/high density lipoprotein (HDL) cholesterol mass ratOrdered By: Stephanie Burgess on 03-28-2022 Cholesterol.total/Cho lesterol in HDL [Mass ratio] 3.3 {ratio} <5.0 [facility] Serum or plasma urea nitroge n measurement (mass/volume)Ordered By: Stephanie Burgess on 03-28-2022 Urea nitrogen [Mass/Vol] 24 mg/dL 9-23 [facility] Serum or plasma uric acid me asurement (mass/volume)Ordered By: Joana Farooq on 03-28-2022 Urate [Mass/Vol] 5.7 mg/dL 2.6-7.2 [facility] Triglyceride [Mass/volume] i n Serum or PlasmaOrdered By: Stephanie Burgess on 03-28-2022 Triglyceride [Mass/Vol] 84 mg/dL 35-149 [facility] Comment on above: TRIG ATP III CLASSIF ICATIONTRIG less than 150 mg/dL NormalTRIG 150-199 mg/dL Borderline highTRIG 200-500 mg/dL High TRIG greater than 500 mg/dL Very highStandard traceable to the Center for Disease Conrtrol and Prevention (CDC) test method. WBC Auto (Bld) [#/Vol]Ordere d By: Joana Farooq on 03-28-2022 WBC (Bld) [#/Vol] 6.7 10*3/uL 4.1-10.5 [facility] Office Visit (Cardiology)on 01-25-2022 Follow-up visit Diagnoses/Problems Assessed Chronic atrial fibrillation (427.31) (I48.20) COPD (chronic obstructive pulmonary disease) (496) (J44.9) Diabetes mellitus (250.00) (E11.9) Essential hypertension (401.9) (I10) Hyperlipidemia (272.4) (E78.5) Mild hypertrophic obstructive cardiomyopathy (425.11) (I42.1) Atherosclerosis of [place] coronary artery without angina pectoris (414.01) (I25.10) Status post angioplasty (V45.89) (Z98.62) Presence of Watchman left atrial appendage closure device (V45.09) (Z95.818) High risk medication use (V58.69) (Z79.899) Former smoker (V15.82) (Z87.891) Quit in 2006 Class 1 obesity with body mass index (BMI) of 33.0 to 33.9 in adult (278.00,V85.33) (E66.9,Z68.33) Orders Atherosclerosis of [place] coronary artery without angina pectoris, Diabetes mellitus [...] Oral TabletTAK (more content not included)... Normal [employer] Tobacco Screening.on 022 Tobacco use status [facility] b) No [facility] 250 DO Work Phone: Coding Summary.on 01-02-2022 Coding Summary. [id number] Gh0bWw +PGhlYWQ+TK1DQRHcW36ojZIac R3BE7dPCZ7IOWMRBBTTGT7MHI8 rvSG9SFxpV2PjjbIl QhvhyOXoPR87MNx8JEV7dUuhDW fgrH5gdTMjN9t9LhDhGX00xI46 UYjyBKCqYhW5GhHlirbybVOm P0cdLgPllEQsLkf+PHRhYmxlIH urYJFoSTcgRLLtCkSthZnjYW4d Zz7uCIZcIHItjDaycBEkYmFt k5kdDYEtARwrCM7wlJhrR0TlgB M1WSYrg0p3Rn04cAQ+PHRkIHN0 gZlePMqml910QoMvx3ilGLL3 dKCiUOdxEOS0D15xi8O6ANSnMO TaSEC6xHB6xI3ieHerijxzB1Mo xVGzTwM5AIE3kGNjlE5ytJzf wgmkyL4qZxf+J25DEP1YSPOXHL 6XPcz2Y8VzCxgcgHN+KX71GCAf GO03bZHtuQZmp5lhaCi8NtQy WPKvMWI3hMfbVYkxk0JwVGGhS8 1ppDVpr1Z1JWDoiWxfdJHgTuVa lGU8tW6sKWyhryfgh1yncfwt Cvrwv4dysx99wC06G33bKMaaOU GfUEA2TEUiQTCpwQkezv3rkK3d Ii8+PBakl2knh1jaxWg0AsSd ZQUhuvFjhTypKTC5l1AzQu09F0 TqcZkzi0VyRuf4tv35bJLuq8C4 dEX6RYusUWNulF0lMIoeGnN1 IZVsYiSyoP13yXBpUKtrQg8bnC yfbXmyAN3uIIBtugugLIZiwT6f QFHcmRAzjJbaUP4lVLYyhien r895KbTpQWU2BHKnlYFiZ6AqyV 7wUiCqLDXpIANaJ5YznDNjOHzg Q737RJisJeH4ZWJfekPjM7Jg FMQulWjzAkY3w6F5Ze8Tm4Trkz cgZNF4WIecLTSsXiR9DwVrSpJ3 A0FrZzw5QDUgyUaoKK9kE5Gu JITykebkgawxkYD8JOGyPPNfgQ 83rRDgXFncEv6hn4X7y539GLUg ROMsqT31Yj1euKxyQCJkkPLR nS6hfgnvq2mjsuobWnQdFMIjUP y9HEp7MARuwXnjQlDuOUM9QgN4 KFS1aCEktR4kqFvpwlixpQ8q Oyc+O22ciR3eLZH2DJP9qlosZM JjztRlCG80WT99B4YsDczysUNd bGU+RGEfdnWcnJrnAJ3sOmKx v4vvy7NxUJubZ0UdXEKnFPpxBd y8VMRnITB9uZD3iJ1fXEXgUEhy g4O6fBV4V8IxsuYcoc4wt7zw OOGuRKxgJ42oxMYym9L5NZVdsN O9VJRdzZziJiLphC85Uwf+PGNv cBgop4XtQdoqq5zcy6njbZx1 AlLhFCZcdyWnuAkrYNT2h0DcGq 58V39vYBovQKMdEDJdHVUsPPDp qPqgdn1yxI2eXb1+PGNvbCB3 sHL6oA7wKCGgUsE4XUveH032Xj KjfMNdOzsng5yzp0qubEb8YbPt LCUittVnvSptLGT3v0DwQv71 O05fIUeuPSCgWTNrKMHsUCCfqH rpnm8fgN6yWg4+VZ4by2esbu25 yW41bDC+YEJhXVI7xPcwXBwn AYRdyE8wZRwaNzK1CMMpYlBwxP 27qKTjIHfxKr9inYtaqFmiHW6i VEHyxloyp607FkKmv4vnMWCn jVKgPMwkHBJ0Z46fj9Y3HUPjSO WpZQY7dWW6uH3seVdzdxthhECk vKicuuKqrIspUAvnMEuuM009 IHRvcDsnPlBhdGllbnQgTmFtZT s4S5ZyEzn6JWHzxGffAY8wqWRp PTmzQb2tpFiizAivTD3yDWWq wlfoc114NyKxl8tcOQKhpXOhEV tpPSR8R42yi1R9ARWgADBtDKT7 yIP1zE3yiOeaxrkolTOllPtu dyIgoBexCHxcRCppI837FJAkpL npOqWaklPcVRRprJO8FL84WW79 gQEye1K5ySW8A0HrALGsdmuq jtbbvBQ8VBCwOKImzR76Xb8kpY qgKz9pPVZaEDK7IKDxvWXyG4Jc kN8eKuZtDVCeJXUbM0JzuPIz JZjfO274HDkwXjN5UYYwmvGsQ6 VcAHFbtApaUgS1p0C3Jm1OD9J8 GY28VO66fTSui9Z5aVW5Q9Qq IITbxbkvzdklsMK9FTNtNDUamE 93Ut8naCyqYm4gBDRhATI7WGZs mQBxK5AegN9iGpEeKIHpZJIk J7MzyAWsJGdnE981RPbxUoY1ZX CexeGcG0YfVUUbqXqxQnQ0f7D1 Ry5OPAu3NM64EB40gWNax6I8 xLD6Z0OtKOKhvknykmwsfFD5YD FeHLUdjM12Gn0egOdsOo9iMAVh UVY6WMIarSSzW8ZqbO4ySrGn SCYuUSNiE2QmjKVpEIytD719DN lnVlG4DKOsnmBqA8QoIMLfyZvs FwK8v2M2Go6ZRAMzBR49BHP9 iAU8EC54EN13G0FeXjokpWPpeF U+PHRhYmxlIHdpZHRoPScxMDAl FtGhrZdcBA4xYj8yMWNtXALz pSrtuOIzFpPnz1bqFFOwMXibTD 6xuIjfG5ZanET8KHPlr7x8Sb67 J76eY9PtiGZ+BFHgxGJ6uWL6 cW9dEuSzJuU5ATfrG845XdXmxD XmJvsvn6eyh1nkqJa3LfG3QSNd tmNmfJhaRBG6c1YvFo42F55l IHdpZHRoPSIxNSUiIHZhbGlnbj 1kxY8hAv5+PLNxcZC7uHH8zC6a JbBoFlX9QTzlF637XdQwkZAl Xisks6bav8hddLt9MwElVPEzhs UsaPjaTWB1x9RiQs28E9KhvJkq v4IoEhg1ag49eGAtv5A2uBY3 P4ZzCVGntueenRLxaQuvKO4uRP WhttvzOHJqzW9mAVKgF4m1FaZe ZuG0EOyeQ2ZhdzT9SYDwnNSx ADjrOZD5W68gk9A9EEKjISSjWF Q0mCQ2nB3puOwiwroooHPnwGtu grKkxWxsNYqiJEevX840XBOy lCjnSIGajG2uYWUuyEBbwMgyTO 0nDQLfhhqhOdPGMSCYEEVWES71 P2ZnVse8TLLbiFydYA2pyGZl CJllNq6nbCwbmOlyCE8jCWShbv ezHNFmfP5zSJTpkEJfoWwtBK8t RUPhkhskk877HhAqVUT7GYDp oSJdI3IdxY5zGsMxRZZoZVNmT9 WdtCCvLVwmX233UTaxMvO9GDWa xgMjW3QfWPPxqXnnImZ5v1X4 Vk7lUU4bWH0lGOY0LQ34AK72vU Wus5L4yYC1D5IcMJOhugsjruqo xKK9SMBpDIBjmN12wVRwWUgq Ul6fe6Q9o429DYCjQXBydH49Mq 2ftWsgNQEmwNCMzK6wlujkv2em tsszXkRdUZCaTAw0YZh1BPCi rOwjLqWiXMV5FfC3FHR7hXTgoP 9fzDtkxzclzR1jVmk+NjQgWWVh thR3T7ZfPfg0RMWhyHgyNS9s jUWiPQmkWf2hbRzhrBrlIK7uMM VopwkmZWIsyF3bARCplIIyxYcf XG7rZIBqxrwww387HrVaOBD8 KXLbdFXhP3KodJ0qUdDqGGWtJF MoV0NzfUSwBXzvM473FMnbBtG6 UVQyfaFeI1HuJPCioKwzWoF0 j2J3Fc3QAWkjLV29GF21kVKsp3 X0mGL7U3WnDHSwiohzcflulPF4 KIMmOAUhnV34oGXySHmkNr2j s3N7z422NHVcSNIgnF19Mg8qoK vqBBMuxLVYxZ2cwfrok2zwpbue JwCuHFFiMQl7TPf0JADyyNcx SlGqLEX8QuW1YKU3rJWseZ6ajX eoeseyhD0oOgb+KUWkIQKys2Le n5ZlMT75NJ03Y8YtVobzyJTz bGU+PHRhYmxlIHdpZHRoPScxMD JhBiBhfOktII2gPh7jYAVuRNEa dNrbfYHzLmApl2ikKSZcAVva KV9awNlkY7RxfTQ4BQWfw4r3Hm 36A92bQ7ArpUE+RVDcyNI8iIG9 rP5yQzIvFdR1HRtkO151MmIn xJZiSwrdn3lyx8vpvFz6DiTjBO DhwsIllHtcDYG1h9ZlJl14F46s IHdpZHRoPSIyMCUiIHZhbGln fq8vnO9cQl7+XMEfvQG0gSO7fF 3iMlWoEkB7IEuaJ479PvIajUYi JhxcA59lV4CggOD+PHRyPjx0 SISzfBarIM0paFLvSFwnGz2iZH O4JxLvWfQoCZzqE5HjKOOhedty osvfgDG5JINiLGCdlT20Kh5k hRarNj1qFHYuWDB3HETvjPKiA0 HrpT9lBfElCYLmZBTbD1GybZZw FBvxF086QKvoBzT5DSEttoOh Y0KzDNEhuOpzNzH2a2L4Cm4OvS lkuHYyXG2yQfIdSHf3T3BkWrd4 KTGkxQbbSZ6ruMPcAFdiAi0t jVwvkWdbPK5vMJPelykkp439Fu Owi0apQUSysXKbTWbuBOW7T10u h5H4JIXlEKBqUBN3hUC1sF6r bGlnbjogbGVmdDsgdmVydGljYW koOQgqO228NDFmoAhgJrCWLdn9 Q9MkBkq6OEMenJrwPQ4udXZk FLyrNh6htZokmPtxXB0xBUYpnw psc341AvGwg4frRJYgqRAaHEgx YHW2D62pj6C9XYRaXGGnRLE5 iDC5uH6vuWgtbgomeOUosSimzj FyrEjnDLuoHZqaV166HVEauRbg Xr9CMnr2D5EiDhj0GYZpvDku UO9iaXTgNOivXw1ioFmjaWzeNF 1sMGUnpxtze375IvCih0fxFKBl rSIxLWtrRMG9S89yy4O4OEMv GANrOOA8wTU2gE5phUtwukahdG BwiAoqmvIygZvpZMjhIHjqG656 IHRvcDsnPlBheWVyOjwvdGQ+ RH99dz12L2RiHdmnTya6ZWEiAF X9yIV8vW5wVHVhSUqxa3J6aEY9 Q2BwvrUuxz5wj1sqTXLeRWmo Y29s (more content not included)... Normal [facility] Physician Orderon 12-27-2021 Physician Order [id number] Normal [facility] A1C HEMOGLOBINon 12-15-2021 HbA1c (Bld) [Mass fraction] 6.4 % [employer] Other HbA1c (Bld) [Mass fraction]o n 12-15-2021 A1C HEMOGLOBIN [employer] Other Bacteria identified Aer cx N om (Unsp spec)Ordered By: ALEX Begum on 12-13-2021 Superficial Wound Culture Staphylococcus aureus [facility] Basophils Auto (Bld) [#/Vol] Ordered By: Teri Ybarra on 12-05-2021 Basophils (Bld) [#/Vol] 0.1 10*3/uL 0.0-0.2 [facility] Basophils/100 WBC Auto (Bld) Ordered By: Teri Ybarra on 12-05-2021 Basophils/100 WBC (Bld) 0.8 % . [facility] Blood hemoglobin measurement (mass/volume)Ordered By: Teri Ybarra on 12-05-2021 Hemoglobin (Bld) [Mass/Vol] 13.7 g/dL 13.0-17.0 [facility] Blood leukocytes automated c ount (number/volume)Ordered By: Teri Ybarra on 12-05-2021 WBC (Bld) [#/Vol] 7.5 10*3/uL 4.5-11.0 [facility] Body fluid albumin measureme nt (mass/volume)Ordered By: Teri Ybarra on 12-05-2021 Albumin (Body fld) [Mass/Vol] 4.0 g/dL 3.2-5.5 [facility] Creatinine and Glomerular fi ltration rate.predicted panel (S/P/Bld)Ordered By: Teri Ybarra on 12-05-2021 Creatinine [Mass/Vol] 1.28 mg/dL 0.64-1.27 [facility] Eosinophils Auto (Bld) [#/Vo l]Ordered By: Teri Ybarra on 12-05-2021 Eosinophils (Bld) [#/Vol] 0.4 10*3/uL 0.0-0.45 [facility] Eosinophils/100 WBC Auto (Bl d)Ordered By: Teri Ybarra on 12-05-2021 Eosinophils/100 WBC (Bld) 5.1 % . [facility] Erythrocyte distribution wid th Auto (RBC) [Ratio]Ordered By: Teri Ybarra on 12-05-2021 Erythrocyte distribution width (RBC) [Ratio] 15.6 % 12.0-14.8 [facility] Estimated glomerular filtrat ion rate (GFR) non- AmericanOrdered By: Teri Ybarra on 12-05-2021 GFR/1.73 sq M.predicted among non-blacks MDRD (S/P/Bld) [Vol rate/Area] 57 mL/Min [facility] Globulin Calc (S) [Mass/Vol] Ordered By: Teri Ybarra on 12-05-2021 Globulin (S) [Mass/Vol] 3.0 g/dL [facility] Hematocrit Auto (Bld) [Volum e fraction]Ordered By: Teri Ybarra on 12-05-2021 Hematocrit (Bld) [Volume fraction] 42.1 % 38.8-50.0 [facility] Laboratory - Hematology and Cell countsOrdered By: Teri Ybarra on 12-05-2021 Nucleated RBC/100 WBC (Bld) [Ratio] 0.0 % 0-0.5 [facility] Lymphocytes Auto (Bld) [#/Vo l]Ordered By: Teri Ybarra on 12-05-2021 Lymphocytes (Bld) [#/Vol] 1.1 10*3/uL 1.00-4.8 [facility] Lymphocytes/100 WBC Auto (Bl d)Ordered By: Teri Ybarra on 12-05-2021 Lymphocytes/100 WBC (Bld) 14.5 % . [facility] MCH Auto (RBC) [Entitic mass ]Ordered By: Teri Ybarra on 12-05-2021 MCH (RBC) [Entitic mass] 28.3 pg 27.5-35.2 [facility] MCHC Auto (RBC) [Mass/Vol]Or dered By: Teri Ybarra on 12-05-2021 MCHC (RBC) [Mass/Vol] 32.5 g/dL 32.5-35.6 [facility] MCV Auto (RBC) [Entitic vol] Ordered By: Teri Ybarra on 12-05-2021 MCV (RBC) [Entitic vol] 87.0 fL 83.5-101 [facility] Monocytes Auto (Bld) [#/Vol] Ordered By: Teri Ybarra on 12-05-2021 Monocytes (Bld) [#/Vol] 0.9 10*3/uL 0.0-0.8 [facility] Monocytes/100 WBC Auto (Bld) Ordered By: Teri Ybarra on 12-05-2021 Monocytes/100 WBC (Bld) 11.3 % . [facility] Neutrophils Auto (Bld) [#/Vo l]Ordered By: Teri Ybarra on 12-05-2021 Neutrophils (Bld) [#/Vol] 5.1 10*3/uL 1.8-7.7 [facility] Neutrophils/100 WBC Auto (Bl d)Ordered By: Teri Ybarra on 12-05-2021 Neutrophils/100 WBC (Bld) 68.3 % . [facility] No Panel InformationOrdered By: Teri Ybarra on 12-05-2021 Estimated GFR () > 60 mL/Min [facility] Comment on above: GFR estimated refere nce range: According to KDOQI guidelines, <60 ml/min/1.73m2 is sufficient to diagnose a patient with chronic kidney disease. Pharmacy Creatinine Clearance (Chem N/A [facility] Platelet mean volume Auto (B ld) [Entitic vol]Ordered By: Teri Ybarra on 12-05-2021 Platelet mean volume (Bld) [Entitic vol] 7.4 fL 6.6-10.1 [facility] Platelets Auto (Bld) [#/Vol] Ordered By: Teri Ybarra on 12-05-2021 Platelets (Bld) [#/Vol] 268 10*3/uL 150-450 [facility] Protein [Mass/volume] in Ser um or PlasmaOrdered By: Teri Ybarra on 12-05-2021 Protein [Mass/Vol] 7.0 g/dL 6.1-7.9 [facility] RBC Auto (Bld) [#/Vol]Ordere d By: Teri Ybarra on 12-05-2021 RBC (Bld) [#/Vol] 4.84 10*6/uL 3.90-5.60 [facility] Serum or plasma alanine bartholomew otransferase measurement without P-5'-P (enzymatic activiOrdered By: Teri Ybarra on 12-05-2021 ALT No additional P-5'-P [Catalytic activity/Vol] 21 U/L 10-60 [facility] Serum or plasma albumin/glob ulin mass ratioOrdered By: Teri Ybarra on 12-05-2021 Albumin/Globulin [Mass ratio] 1.3 {ratio} [facility] Serum or plasma alkaline dorothea sphatase measurement (enzymatic activity/volume)Ordered By: Teri Ybarra on 12-05-2021 ALP [Catalytic activity/Vol] 94 U/L 32-92 [facility] Serum or plasma anion gap de terminationOrdered By: Teri Ybarra on 12-05-2021 Anion gap [Moles/Vol] 11.9 mmol/L 6.0-15.0 [facility] Serum or plasma aspartate am inotransferase measurement (enzymatic activity/volume)Ordered By: Teri Ybarra on 12-05-2021 AST [Catalytic activity/Vol] 29 U/L 10-42 [facility] Serum or plasma calcium victor m urement (mass/volume)Ordered By: Teri Ybarra on 12-05-2021 Calcium [Mass/Vol] 10.4 mg/dL 8.2-10.2 [facility] Serum or plasma chloride meenakshi surement (moles/volume)Ordered By: Teri Ybarra on 12-05-2021 Chloride [Moles/Vol] 102 mmol/L 95-114 [facility] Serum or plasma glucose victor m urement (mass/volume)Ordered By: Teri Ybarra on 12-05-2021 Glucose [Mass/Vol] 116 mg/dL 70-100 [facility] Comment on above: ADA recommended refe [...] on 12-05-2021 Potassium [Moles/Vol] 3.6 mmol/L 3.5-5.1 [facility] Serum or plasma sodium measu rement (moles/volume)Ordered By: Teri Tate on 12-05-2021 Sodium [Moles/Vol] 138 mmol/L 136-146 [facility] Serum or plasma total biliru bin measurement (mass/volume)Ordered By: Teri Ybarra on 12-05-2021 Bilirubin [Mass/Vol] 0.7 mg/dL 0.3-1.2 [facility] Serum or plasma total carbon dioxide measurement (moles/volume)Ordered By: Teri Ybarra on 12-05-2021 CO2 [Moles/Vol] 27.7 mmol/L 22.0-30.0 [facility] Serum or plasma urea nitroge n measurement (mass/volume)Ordered By: Teri Ybarra on 12-05-2021 Urea nitrogen [Mass/Vol] 34 mg/dL 12-08 [facility] Physical Therapy Noteon 11-16 Physical Therapy Note [id number] [facility] Bacteria identified Aer cx N om (Unsp spec)Ordered By: Estee Han on 11-10-2021 Superficial Wound Culture Staphylococcus aureus [facility] Basophils Auto (Bld) [#/Vol] Ordered By: Sandra Danielson on 11-09-2021 Basophils (Bld) [#/Vol] 0.1 10*3/uL 0.0-0.2 [facility] Basophils/100 WBC Auto (Bld) Ordered By: Sandra Danielson on 11-09-2021 Basophils/100 WBC (Bld) 0.9 % . [facility] Blood hemoglobin measurement (mass/volume)Ordered By: Sandra Danielson on 11-09-2021 Hemoglobin (Bld) [Mass/Vol] 13.6 g/dL 13.0-17.0 [facility] Blood leukocytes automated c ount (number/volume)Ordered By: Sandra Danielson on 11-09-2021 WBC (Bld) [#/Vol] 6.4 10*3/uL 4.5-11.0 [facility] Body fluid albumin measureme nt (mass/volume)Ordered By: Geeta Dumont on 11-09-2021 Albumin (Body fld) [Mass/Vol] 3.9 g/dL 3.2-5.5 [facility] Creatinine and Glomerular fi ltration rate.predicted panel (S/P/Bld)Ordered By: Geeta Dumont on 11-09-2021 Creatinine [Mass/Vol] 1.22 mg/dL 0.64-1.27 [facility] Eosinophils Auto (Bld) [#/Vo l]Ordered By: Sandra Danielson on 11-09-2021 Eosinophils (Bld) [#/Vol] 0.5 10*3/uL 0.0-0.45 [facility] Eosinophils/100 WBC Auto (Bl d)Ordered By: Sandra Danielson on 11-09-2021 Eosinophils/100 WBC (Bld) 7.6 % . [facility] Erythrocyte distribution wid th Auto (RBC) [Ratio]Ordered By: Sandra Danielson on 11-09-2021 Erythrocyte distribution width (RBC) [Ratio] 16.2 % 12.0-14.8 [facility] Estimated glomerular filtrat ion rate (GFR) non- AmericanOrdered By: Geeta Dumont on 11-09-2021 GFR/1.73 sq M.predicted among non-blacks MDRD (S/P/Bld) [Vol rate/Area] 60 mL/Min [facility] Globulin Calc (S) [Mass/Vol] Ordered By: Geeta Dumont on 11-09-2021 Globulin (S) [Mass/Vol] 3.2 g/dL [facility] Hematocrit Auto (Bld) [Volum e fraction]Ordered By: Sandra Danielson on 11-09-2021 Hematocrit (Bld) [Volume fraction] 42.3 % 38.8-50.0 [facility] - Hematology and Cell countsOrdered By: Sandra Danielson on 11-09-2021 Nucleated RBC/100 WBC (Bld) [Ratio] 0.1 % 0-0.5 [facility] Lactate dehydrogenase measur ement (enzymatic activity/volume)Ordered By: Sandra Danielson on 11-09-2021 LDH (Unsp spec) [Catalytic activity/Vol] 186 U/L 45-190 [facility] Lymphocytes Auto (Bld) [#/Vo l]Ordered By: Sandra Danielson on 11-09-2021 Lymphocytes (Bld) [#/Vol] 1.0 10*3/uL 1.00-4.8 [facility] Lymphocytes/100 WBC Auto (Bl d)Ordered By: Sandra Danielson on 11-09-2021 Lymphocytes/100 WBC (Bld) 15.5 % . [facility] MCH Auto (RBC) [Entitic mass ]Ordered By: Sandra Danielson on 11-09-2021 MCH (RBC) [Entitic mass] 28.0 pg 27.5-35.2 [facility] MCHC Auto (RBC) [Mass/Vol]Or dered By: Sandra Danielson on 11-09-2021 MCHC (RBC) [Mass/Vol] 32.0 g/dL 32.5-35.6 [facility] MCV Auto (RBC) [Entitic vol] Ordered By: Sandra Danielson on 11-09-2021 MCV (RBC) [Entitic vol] 87.3 fL 83.5-101 [facility] Monocytes Auto (Bld) [#/Vol] Ordered By: Sandra Danielson on 11-09-2021 Monocytes (Bld) [#/Vol] 0.8 10*3/uL 0.0-0.8 [facility] Monocytes/100 WBC Auto (Bld) Ordered By: Sandra Danielson on 11-09-2021 Monocytes/100 WBC (Bld) 12.3 % . [facility] Neutrophils Auto (Bld) [#/Vo l]Ordered By: Sandra Danielson on 11-09-2021 Neutrophils (Bld) [#/Vol] 4.1 10*3/uL 1.8-7.7 [facility] Neutrophils/100 WBC Auto (Bl d)Ordered By: Sandra Danielson on 11-09-2021 Neutrophils/100 WBC (Bld) 63.7 % . [facility] No Panel InformationOrdered By: Geeta Dumont on 11-09-2021 Estimated GFR () > 60 mL/Min [facility] Comment on above: GFR estimated refere nce range: According to KDOQI guidelines, <60 ml/min/1.73m2 is sufficient to diagnose a patient with chronic kidney disease. Pharmacy Creatinine Clearance (Chem 78.67 [facility] Platelet mean volume Auto (B ld) [Entitic vol]Ordered By: Sandra Danielson on 11-09-2021 Platelet mean volume (Bld) [Entitic vol] 7.1 fL 6.6-10.1 [facility] Platelets Auto (Bld) [#/Vol] Ordered By: Sandra Danielson on 11-09-2021 Platelets (Bld) [#/Vol] 260 10*3/uL 150-450 [facility] Protein [Mass/volume] in Ser um or PlasmaOrdered By: Geeta Dumont on 11-09-2021 Protein [Mass/Vol] 7.1 g/dL 6.1-7.9 [facility] RBC Auto (Bld) [#/Vol]Ordere d By: Sandra Danielson on 11-09-2021 RBC (Bld) [#/Vol] 4.85 10*6/uL 3.90-5.60 [facility] Serum or plasma alanine bartholomew otransferase measurement without P-5'-P (enzymatic activiOrdered By: Geeta Dumont on 11-09-2021 ALT No additional P-5'-P [Catalytic activity/Vol] 16 U/L 10-60 [facility] Serum or plasma albumin/glob ulin mass ratioOrdered By: Geeta Dumont on 11-09-2021 Albumin/Globulin [Mass ratio] 1.2 {ratio} [facility] Serum or plasma alkaline dorothea sphatase measurement (enzymatic activity/volume)Ordered By: Geeta Dumont on 11-09-2021 ALP [Catalytic activity/Vol] 103 U/L 32-92 [facility] Serum or plasma aspartate am inotransferase measurement (enzymatic activity/volume)Ordered By: Geeta Dumont on 11-09-2021 AST [Catalytic activity/Vol] 22 U/L 10-42 [facility] Serum or plasma calcium victor m urement (mass/volume)Ordered By: Geeta Dumont on 11-09-2021 Calcium [Mass/Vol] 10.7 mg/dL 8.2-10.2 [facility] Serum or plasma chloride meenakshi surement (moles/volume)Ordered By: Geeta Dumont on 11-09-2021 Chloride [Moles/Vol] 101 mmol/L 95-114 [facility] Serum or plasma glucose victor m urement (mass/volume)Ordered By: Geeta Dumont on 11-09-2021 Glucose [Mass/Vol] 98 mg/dL 70-100 [facility] Comment on above: ADA recommended refe [...] on 11-09-2021 Potassium [Moles/Vol] 4.5 mmol/L 3.5-5.1 [facility] Serum or plasma sodium measu rement (moles/volume)Ordered By: Geeta Dumont on 11-09-2021 Sodium [Moles/Vol] 137 mmol/L 136-146 [facility] Serum or plasma total biliru bin measurement (mass/volume)Ordered By: Geeta Dumont on 11-09-2021 Bilirubin [Mass/Vol] 0.6 mg/dL 0.3-1.2 [facility] Serum or plasma total carbon dioxide measurement (moles/volume)Ordered By: Geeta Dumont on 11-09-2021 CO2 [Moles/Vol] 29.2 mmol/L 22.0-30.0 [facility] Serum or plasma urea nitroge n measurement (mass/volume)Ordered By: Geeta Dumont on 11-09-2021 Urea nitrogen [Mass/Vol] 25 mg/dL 12-08 [facility] Basic Metabolic Profon 10-27 (cont.) Normal [facility] Comment on above: Result Comment: Aver age GFR for 60-69 years old: 85 mL/min/1.73sq m Chronic Kidney Disease: <60 mL/min/1.73sq m Kidney failure: <15 mL/min/1.73sq m eGFR calculated using average adult body mass. Additional eGFR calculator available at: http://www.EasilyDo.Taktio/multiple_crcl_2012.htm Performed By: #### G LYHGB, IOCAL #### [address] [address] [employer]: Chi Layne MD #### BMP, CBC #### [facility] [address] [place] [address] [id number] [employer]: Russell Sanchez MD Anion gap [Moles/Vol] 8 mmol/L Low 9-17 [facility] Comment on above: Performed By: #### Sp LYHGB, IOCAL #### [address] [address] [employer]: Chi Layne MD #### BMP, CBC #### [facility] [address] [place] [phone] [employer]: Russell Sanchez MD BUN/CRE Ratio 20 Normal -20 [facility] Comment on above: Performed By: #### G LYHGB, IOCAL #### [address] [address] [employer]: Chi Layne MD #### BMP, CBC #### [facility] [address] [place] [phone] [employer]: Russell Sanchez MD Calcium [Mass/Vol] 10.8 mg/dL High 8.6-10.4 [facility] Comment on above: Performed By: #### G LYHGB, IOCAL #### [address] [address] [employer]: Chi Layne MD #### BMP, CBC #### [facility] [address] [place] [phone] [employer]: Russell Sanchez MD Chloride [Moles/Vol] 102 mmol/L Normal 98-107 [facility] Comment on above: Performed By: #### G LYHGB, IOCAL #### [address] [address] [employer]: Chi Layne MD #### BMP, CBC #### [facility] [address] [place] [phone] [employer]: Russell Sanchez MD CO2 [Moles/Vol] 32 mmol/L High 20-31 [facility] Comment on above: Performed By: #### G LYHGB, IOCAL #### [address] [address] [employer]: Chi Layne MD #### BMP, CBC #### [facility] [address] [place] [address] [employer]: Russell Sanchez MD Creatinine [Mass/Vol] 1.20 mg/dL Normal 0.70-1.20 [facility] Comment on above: Performed By: #### G LYHGB, IOCAL #### [address] [address] [employer]: Chi Layne MD #### BMP, CBC #### [facility] [address] [place] [address] [employer]: Russell Sanchez MD GFR, Amer >60 Normal >60 [facility] Comment on above: Performed By: #### G LYHGB, IOCAL #### [address] [address] [employer]: Chi Layne MD #### BMP, CBC #### [facility] [address] [place] [address] [employer]: Russell Sanchez MD GFR,non Amer >60 Normal >60 [facility] Comment on above: Performed By: #### G LYHGB, IOCAL #### [address] [address] [employer]: Chi Layne MD #### BMP, CBC #### [facility] [address] [place] [phone] [employer]: Russell Sanchez MD Glucose [Mass/Vol] 85 mg/dL Normal 70-99 [facility] Comment on above: Performed By: #### G LYHGB, IOCAL #### [address] [address] [employer]: Chi Layne MD #### BMP, CBC #### [facility] [address] [place] [address] [employer]: Russell Sanchez MD Potassium [Moles/Vol] 3.7 mmol/L Normal 3.7-5.3 [facility] Comment on above: Performed By: #### G LYHGB, IOCAL #### [address] [address] [employer]: Chi Layne MD #### BMP, CBC #### [facility] [address] [place] [address] [employer]: Russell Sanchez MD Sodium [Moles/Vol] 142 mmol/L Normal 135-144 [facility] Comment on above: Performed By: #### G LYHGB, IOCAL #### [address] [address] [employer]: Chi Layne MD #### BMP, CBC #### [facility] [address] [place] [address] [employer]: Russell Sanchez MD Urea nitrogen [Mass/Vol] 24 mg/dL High 8-23 [facility] Comment on above: Performed By: #### G LYHGB, IOCAL #### [address] [address] [employer]: Chi Layne MD #### BMP, CBC #### [facility] [address] [place] [address] [employer]: Russell Sanchez MD CBCon 10-27-2021 Erythrocyte distribution width (RBC) [Ratio] 15.0 % High 11.8-14.4 [facility] Comment on above: Performed By: #### G LYHGB, IOCAL #### [address] [address] [employer]: Chi Layne MD #### BMP, CBC #### [facility] [address] [place] [address] [employer]: Russell Sanchez MD Hematocrit (Bld) [Volume fraction] 42.6 % Normal 40.7-50.3 [facility] Comment on above: Performed By: #### G LYHGB, IOCAL #### [address] [address] [employer]: Chi Layne MD #### BMP, CBC #### [facility] [address] [place] [address] [employer]: Russell Sanchez MD Hemoglobin (Bld) [Mass/Vol] 13.6 g/dL Normal 13.0-17.0 [facility] Comment on above: Performed By: #### G LYHGB, IOCAL #### [address] [address] [employer]: Chi Layne MD #### BMP, CBC #### [facility] [address] [place] [phone] [employer]: Russell Sanchez MD MCH (RBC) [Entitic mass] 28.4 pg Normal 25.2-33.5 [facility] Comment on above: Performed By: #### G LYHGB, IOCAL #### [address] [address] [employer]: Chi Layne MD #### BMP, CBC #### [facility] [address] [place] [phone] [employer]: Russell Sanchez MD MCHC (RBC) [Mass/Vol] 31.9 g/dL Normal 28.4-34.8 [facility] Comment on above: Performed By: #### G LYHGB, IOCAL #### [address] [address] [employer]: Chi Layne MD #### BMP, CBC #### [facility] [address] [place] [address] [employer]: Russell Sanchez MD MCV (RBC) [Entitic vol] 88.9 fL Normal 82.6-102.9 [facility] Comment on above: Performed By: #### G LYHGB, IOCAL #### [address] [address] [employer]: Chi Layne MD #### BMP, CBC #### [facility] [address] [place] [address] [employer]: Russell Sanchez MD NRBC Automated 0.0 per 100 WBC Normal 0.0 [facility] Comment on above: Performed By: #### G LYHGB, IOCAL #### [address] [address] [employer]: Chi Layne MD #### BMP, CBC #### [facility] [address] [place] [phone] [employer]: Russell Sanchez MD Platelet mean volume (Bld) [Entitic vol] 9.2 fL Normal 8.1-13.5 [facility] Comment on above: Performed By: #### G LYHGB, IOCAL #### [address] [address] [employer]: Chi Layne MD #### BMP, CBC #### [facility] [address] [place] [address] [employer]: Russell Sanchez MD Platelets (Bld) [#/Vol] 203 10*3/uL Normal 138-453 [facility] Comment on above: Performed By: #### G LYHGB, IOCAL #### [address] [address] [employer]: Chi Layne MD #### BMP, CBC #### [facility] [address] [place] [id number] [employer]: Russell Sanchez MD RBC (Bld) [#/Vol] 4.79 10*6/uL Normal 4.21-5.77 [facility] Comment on above: Performed By: #### G LYHGB, IOCAL #### [facility] [address] [place] [phone] [employer]: Chi Layne MD #### BMP, CBC #### [facility] [address] [place] [address] [employer]: Russell Sanchez MD WBC (Bld) [#/Vol] 5.8 10*3/uL Normal 3.5-11.3 [facility] Comment on above: Performed By: #### G LYHGB, IOCAL #### [address] [address] [employer]: Chi Layne MD #### BMP, CBC #### [facility] [address] [place] [id number] [employer]: Russell Sanchez MD Calcium, Ionicon 10-27-2021 Calcium [Moles/Vol] 1.44 mmol/L High 1.13-1.33 [facility] Comment on above: Performed By: #### G LYHGB, IOCAL #### [address] [address] [employer]: Chi Layne MD #### BMP, CBC #### [facility] [address] [place] [id number] [employer]: Russell Sanchez MD Hemoglobin A1Con 10-27-2021 Glucose [Mass/Vol] 137 mg/dL Normal [facility] Comment on above: Result Comment: The ADA and AACC recommend providing the estimated average glucose result to permit better patient understanding of their HBA1c result. Performed By: #### G LYHGB, IOCAL #### [address] [address] [employer]: Chi Layne MD #### BMP, CBC #### [facility] [address] [facility] [place], [place] [id number] [employer]: Russell Sanchez MD HbA1c (Bld) [Mass fraction] 6.4 % High 4.0-6.0 [facility] Comment on above: Performed By: #### G LYHGB, IOCAL #### [facility] [address] [place] [address] [employer]: Chi Layne MD #### BMP, CBC #### [facility] [address] [place], [place] [address] [employer]: Russell Sanchez MD XR CHEST (2 VW)on [...] Vivian Padron MD 10/27/21 Final result Normal [facility] Linear bibasilar opa city, likely atelectasis. [facility] RIS CONSOLIDATED EXAMINATION: TWO XRAY VIEWS [...] Multilevel degenerative changes of the thoracic spine. [facility] RIS CONSOLIDATED Vivian Padron MD - [...] spine. IMPRESSION: Linear bibasilar opacity, likely atelectasis. [employer] Phone: Radiology Study observation (narrative) [employer] Phone: XR CHEST (2 VW)Ordered By: Hyun Padron on 10-27-2021 [employer] Phone: Creatinine and Glomerular fi ltration rate.predicted panel (S/P/Bld)Ordered By: Shirley Persaud on 09-27-2021 Creatinine [Mass/Vol] 1.32 mg/dL 0.64-1.27 [facility] Estimated glomerular filtrat ion rate (GFR) non- AmericanOrdered By: Shirley Persaud on 09-27-2021 GFR/1.73 sq M.predicted among non-blacks MDRD (S/P/Bld) [Vol rate/Area] 55 mL/Min [facility] No Panel InformationOrdered By: Shirley Persaud on 09-27-2021 Estimated GFR () > 60 mL/Min [facility] Comment on above: GFR estimated refere nce range: According to KDOQI guidelines, <60 ml/min/1.73m2 is sufficient to diagnose a patient with chronic kidney disease. Pharmacy Creatinine Clearance (Chem N/A [facility] Serum or plasma calcium victor m urement (mass/volume)Ordered By: Shirley Persaud on 09-27-2021 Calcium [Mass/Vol] 11.1 mg/dL 8.2-10.2 [facility] Serum or plasma chloride meenakshi surement (moles/volume)Ordered By: Shirley Persaud on 09-27-2021 Chloride [Moles/Vol] 99 mmol/L 95-114 [facility] Serum or plasma glucose victor m urement (mass/volume)Ordered By: Shirley Persaud on 09-27-2021 Glucose [Mass/Vol] 106 mg/dL 70-100 [facility] Comment on above: ADA recommended refe [...] on 09-27-2021 Potassium [Moles/Vol] 4.4 mmol/L 3.5-5.1 [facility] Serum or plasma sodium measu rement (moles/volume)Ordered By: Shirley Persaud on 09-27-2021 Sodium [Moles/Vol] 136 mmol/L 136-146 [facility] Serum or plasma total carbon dioxide measurement (moles/volume)Ordered By: Shirley Persaud on 09-27-2021 CO2 [Moles/Vol] 27.4 mmol/L 22.0-30.0 [facility] Serum or plasma urea nitroge n measurement (mass/volume)Ordered By: Shirley Persaud on 09-27-2021 Urea nitrogen [Mass/Vol] 36 mg/dL 9-23 [facility] Bacteria identified Anaer cx Nom (Unsp spec)Ordered By: ALEX Begum on 09-25-2021 Anaerobic microbial culture No Anaerobes Isolated 3 Days [facility] Basophils Auto (Bld) [#/Vol] Ordered By: Shirley Persaud on 09-24-2021 Basophils (Bld) [#/Vol] 0.1 10*3/uL 0.0-0.2 [facility] Basophils/100 WBC Auto (Bld) Ordered By: Shirley Persaud on 09-24-2021 Basophils/100 WBC (Bld) 0.8 % . [facility] Blood hemoglobin measurement (mass/volume)Ordered By: Shirley Persaud on 09-24-2021 Hemoglobin (Bld) [Mass/Vol] 12.6 g/dL 13.0-17.0 [facility] Blood leukocytes automated c ount (number/volume)Ordered By: Shirley Persaud on 09-24-2021 WBC (Bld) [#/Vol] 6.7 10*3/uL 4.5-11.0 [facility] Creatinine and Glomerular fi ltration rate.predicted panel (S/P/Bld)Ordered By: Shirley Persaud on 09-24-2021 Creatinine [Mass/Vol] 1.32 mg/dL 0.64-1.27 [facility] Eosinophils Auto (Bld) [#/Vo l]Ordered By: Shirley Persaud on 09-24-2021 Eosinophils (Bld) [#/Vol] 0.4 10*3/uL 0.0-0.45 [facility] Eosinophils/100 WBC Auto (Bl d)Ordered By: Shirley Persaud on 09-24-2021 Eosinophils/100 WBC (Bld) 6.0 % . [facility] Erythrocyte distribution wid th Auto (RBC) [Ratio]Ordered By: Shirley Persaud on 09-24-2021 Erythrocyte distribution width (RBC) [Ratio] 14.5 % 12.0-14.8 [facility] Estimated glomerular filtrat ion rate (GFR) non- AmericanOrdered By: Shirley Persaud on 09-24-2021 GFR/1.73 sq M.predicted among non-blacks MDRD (S/P/Bld) [Vol rate/Area] 55 mL/Min [facility] Glucose Glucometer (BldC) [M ass/Vol]Ordered By: Shirley Persaud on 09-24-2021 Glucose [Mass/Vol] 124 mg/dL [facility] Comment on above: Random Glucose Refer ence Range is dependent on time and content of last meal. Glucose of more than 200 mg/dL in a nonstressed, ambulatory subject supports the diagnosis of Diabetes Mellitus. Hematocrit Auto (Bld) [Volum e fraction]Ordered By: Shirley Persaud on 09-24-2021 Hematocrit (Bld) [Volume fraction] 37.6 % 38.8-50.0 [facility] - Hematology and Cell countsOrdered By: Shirley Persaud on 09-24-2021 Nucleated RBC/100 WBC (Bld) [Ratio] 0.0 % 0-0.5 [facility] Lymphocytes Auto (Bld) [#/Vo l]Ordered By: Shirley Persaud on 09-24-2021 Lymphocytes (Bld) [#/Vol] 0.6 10*3/uL 1.00-4.8 [facility] Lymphocytes/100 WBC Auto (Bl d)Ordered By: Shirley Persaud on 09-24-2021 Lymphocytes/100 WBC (Bld) 8.9 % . [facility] MCH Auto (RBC) [Entitic mass ]Ordered By: Shirley Persaud on 09-24-2021 MCH (RBC) [Entitic mass] 28.8 pg 27.5-35.2 [facility] MCHC Auto (RBC) [Mass/Vol]Or dered By: Shirley Persaud on 09-24-2021 MCHC (RBC) [Mass/Vol] 33.7 g/dL 32.5-35.6 [facility] MCV Auto (RBC) [Entitic vol] Ordered By: Shirley Persaud on 09-24-2021 MCV (RBC) [Entitic vol] 85.7 fL 83.5-101 [facility] Monocytes Auto (Bld) [#/Vol] Ordered By: Shirley Persaud on 09-24-2021 Monocytes (Bld) [#/Vol] 0.7 10*3/uL 0.0-0.8 [facility] Monocytes/100 WBC Auto (Bld) Ordered By: Shirley Persaud on 09-24-2021 Monocytes/100 WBC (Bld) 10.9 % . [facility] Neutrophils Auto (Bld) [#/Vo l]Ordered By: Shirley Persaud on 09-24-2021 Neutrophils (Bld) [#/Vol] 4.9 10*3/uL 1.8-7.7 [facility] Neutrophils/100 WBC Auto (Bl d)Ordered By: Shirley Persaud on 09-24-2021 Neutrophils/100 WBC (Bld) 73.4 % . [facility] No Panel InformationOrdered By: Shirley Persaud on 09-24-2021 Bedside Glucose Comment Glu2: cleaned meter [facility] Estimated GFR () > 60 mL/Min [facility] Comment on above: GFR estimated refere nce range: According to KDOQI guidelines, <60 ml/min/1.73m2 is sufficient to diagnose a patient with chronic kidney disease. Pharmacy Creatinine Clearance (Chem 69.81 [facility] Platelet mean volume Auto (B ld) [Entitic vol]Ordered By: Shirley Persaud on 09-24-2021 Platelet mean volume (Bld) [Entitic vol] 6.8 fL 6.6-10.1 [facility] Platelets Auto (Bld) [#/Vol] Ordered By: Shirley Persaud on 09-24-2021 Platelets (Bld) [#/Vol] 277 10*3/uL 150-450 [facility] RBC Auto (Bld) [#/Vol]Ordere d By: Shirley Persaud on 09-24-2021 RBC (Bld) [#/Vol] 4.38 10*6/uL 3.90-5.60 [facility] Serum or plasma calcium victor m urement (mass/volume)Ordered By: Shirley Persaud on 09-24-2021 Calcium [Mass/Vol] 10.2 mg/dL 8.2-10.2 [facility] Serum or plasma chloride meenakshi surement (moles/volume)Ordered By: Shirley Persaud on 09-24-2021 Chloride [Moles/Vol] 99 mmol/L 95-114 [facility] Serum or plasma glucose victor m urement (mass/volume)Ordered By: Shirley Persaud on 09-24-2021 Glucose [Mass/Vol] 109 mg/dL 70-100 [facility] Comment on above: ADA recommended refe rence range Random Glucose Reference Range is dependent on time and content of last meal. Glucose of more than 200 mg/dL in a nonstressed, ambulatory subject supports the diagnosis of Diabetes Mellitus. Serum or plasma potassium me asurement (moles/volume)Ordered By: Shirley Persaud on 09-24-2021 Potassium [Moles/Vol] 3.7 mmol/L 3.5-5.1 [facility] Comment on above: Delta: 5.4 on Serum or plasma sodium measu rement (moles/volume)Ordered By: Shirley Persaud on 09-24-2021 Sodium [Moles/Vol] 137 mmol/L 136-146 [facility] Serum or plasma total carbon dioxide measurement (moles/volume)Ordered By: Shirley Persaud on 09-24-2021 CO2 [Moles/Vol] 30.2 mmol/L 22.0-30.0 [facility] Serum or plasma urea nitroge n measurement (mass/volume)Ordered By: Shirley Persaud on 09-24-2021 Urea nitrogen [Mass/Vol] 31 mg/dL 9-23 [facility] ABO and Rh group post transf usion reaction Nom (Bld)Ordered By: ALEX Begum on 09-23-2021 Microscopic observation Gram stain Nom (Unsp spec) [facility] Bacteria identified Aer cx N om (Unsp spec)Ordered By: ALEX Lal on 09-23-2021 Superficial Wound Culture Staphylococcus aureus [facility] Serum or plasma trough vanco mycin levelOrdered By: Cindy Donald on 09-23-2021 Vancomycin trough [Mass/Vol] 24.0 ug/mL 10.0-20.0 [facility] Comment on above: Last dose: - C reactive protein [Mass/vol ume] in Serum or PlasmaOrdered By: Shirley Persaud on 09-22-2021 CRP [Mass/Vol] 5.0 mg/dL 0.0-1.0 [facility] Peak vancomycin levelOrdered By: Cindy Donald on 09-22-2021 Vancomycin peak [Mass/Vol] 44.1 ug/mL 20.0-40.0 [facility] Comment on above: Last dose: - Phosphate [Mass/volume] in S elmira or PlasmaOrdered By: Shirley Persaud on 09-22-2021 Phosphate [Mass/Vol] 3.2 mg/dL 2.5-4.6 [facility] Serum or plasma intact parat hyroid hormone measurement (mass/volume)Ordered By: Mohini Hanna on 09-22-2021 Parathyrin.intact [Mass/Vol] 79.1 pg/mL 12 [facility] COVID-19 Positive/NegativeOr dered By: Cindy Donald on 09-21-2021 SARS-CoV-2 (COVID-19) N gene EMILY+probe Ql (Resp) Negative Negative [facility] Comment on above: Testing for SARS-CoV -2 by RT-PCR This test was developed and its performance characteristics determined by [employer] and validated at the [facility]. This test has not been FDA [...] on 09-20-2021 Albumin [Mass/Vol] 3.3 g/dL 3.2-5.5 [facility] Globulin Calc (S) [Mass/Vol] Ordered By: ALEX Lal on 09-20-2021 Globulin (S) [Mass/Vol] 4.1 g/dL [facility] Protein [Mass/volume] in Ser um or PlasmaOrdered By: CWS Alden Lal on 09-20-2021 Protein [Mass/Vol] 7.4 g/dL 6.1-7.9 [facility] Serum or plasma alanine bartholomew otransferase measurement without P-5'-P (enzymatic activiOrdered By: [facility] Alden Lal on 09-20-2021 ALT No additional P-5'-P [Catalytic activity/Vol] 21 U/L 10-60 [facility] Serum or plasma albumin/glob ulin mass ratioOrdered By: [facility] Alden Lal on 09-20-2021 Albumin/Globulin [Mass ratio] 0.8 {ratio} [facility] Serum or plasma alkaline dorothea sphatase measurement (enzymatic activity/volume)Ordered By: [facility] Alden Lal on 09-20-2021 ALP [Catalytic activity/Vol] 110 U/L 32-92 [facility] Serum or plasma aspartate am inotransferase measurement (enzymatic activity/volume)Ordered By: [facility] Alden Lal on 09-20-2021 AST [Catalytic activity/Vol] 26 U/L 10-42 [facility] Serum or plasma total biliru bin measurement (mass/volume)Ordered By: [facility] Alden Lal on 09-20-2021 Bilirubin [Mass/Vol] 0.6 mg/dL 0.3-1.2 [facility] US Venous, Unilat, [place] 09-19-2021 [...] by Fred Kidd on 09/19/2021 1533 Normal [facility] Albumin [Mass/volume] in Ser um or PlasmaOrdered By: Joana Farooq on 09-06-2021 Albumin [Mass/Vol] 3.7 g/dL 3.2-5.5 [facility] Basophils Auto (Bld) [#/Vol] Ordered By: Joana Farooq on 09-06-2021 Basophils (Bld) [#/Vol] 0.0 10*3/uL 0.0-0.2 [facility] Basophils/100 WBC Auto (Bld) Ordered By: Joana Farooq on 09-06-2021 Basophils/100 WBC (Bld) 0.8 % . [facility] Blood hemoglobin measurement (mass/volume)Ordered By: Joana Farooq on 09-06-2021 Hemoglobin (Bld) [Mass/Vol] 13.8 g/dL 13.0-17.0 [facility] Blood leukocytes automated c ount (number/volume)Ordered By: Joana Farooq on 09-06-2021 WBC (Bld) [#/Vol] 5.9 10*3/uL 4.5-11.0 [facility] Cholesterol [Mass/volume] in Serum or PlasmaOrdered By: Stephanie Burgess on 09-06-2021 Cholesterol [Mass/Vol] 154 mg/dL 140-200 [facility] Comment on above: Chol less than 200 m g/dl low risk Chol 201-239 mg/dl borderline risk Chol 240 mg/dl and greater high risk Cholesterol in LDL Calc [Mas s/Vol]Ordered By: Stephanie Burgess on 09-06-2021 Cholesterol in LDL [Mass/Vol] 93 mg/dL 0-100 [facility] Comment on above: LDL ATP III CLASSIFI CATION LDL less than 100 mg/dL Optimal LDL 100-129 mg/dL Near or above optimal LDL 130-159 mg/dL Borderline high LDL 160-189 mg/dL High LDL greater than 189 mg/dL Very high Cholesterol in VLDL Calc [Ma ss/Vol]Ordered By: Stephanie Burgess on 09-06-2021 Cholesterol in VLDL [Mass/Vol] 15 mg/dL [facility] Creatinine and Glomerular fi ltration rate.predicted panel (S/P/Bld)Ordered By: Joana Farooq on 09-06-2021 Creatinine [Mass/Vol] 1.51 mg/dL 0.64-1.27 [facility] Eosinophils Auto (Bld) [#/Vo l]Ordered By: Joaan Farooq on 09-06-2021 Eosinophils (Bld) [#/Vol] 0.4 10*3/uL 0.0-0.45 [facility] Eosinophils/100 WBC Auto (Bl d)Ordered By: Joana Farooq on 09-06-2021 Eosinophils/100 WBC (Bld) 6.4 % . [facility] Erythrocyte distribution wid th Auto (RBC) [Ratio]Ordered By: Joana Farooq on 09-06-2021 Erythrocyte distribution width (RBC) [Ratio] 15.0 % 12.0-14.8 [facility] Estimated glomerular filtrat ion rate (GFR) non- AmericanOrdered By: Joana Farooq on 09-06-2021 GFR/1.73 sq M.predicted among non-blacks MDRD (S/P/Bld) [Vol rate/Area] 47 mL/Min [facility] Globulin Calc (S) [Mass/Vol] Ordered By: Joana Farooq on 09-06-2021 Globulin (S) [Mass/Vol] 2.8 g/dL [facility] Hematocrit Auto (Bld) [Volum e fraction]Ordered By: Joana Farooq on 09-06-2021 Hematocrit (Bld) [Volume fraction] 41.6 % 38.8-50.0 [facility] - Chemistry and C hemistry - challengeon 09-06-2021 Cholesterol [Mass/Vol] 154\S\154 Normal 140-200 [facility] [address] DO Work Phone: Comment on above: Chol less than 200 m g/dl low risk Chol 201-239 mg/dl borderline risk Chol 240 mg/dl and greater high risk Cholesterol in LDL [Mass/Vol] 93\S\93 Normal 0-100 [facility] DO Work [...] RBC/100 WBC (Bld) [Ratio] 0.1 % 0-0.5 [facility] Lymphocytes Auto (Bld) [#/Vo l]Ordered By: Joana Farooq on 09-06-2021 Lymphocytes (Bld) [#/Vol] 0.6 10*3/uL 1.00-4.8 [facility] Lymphocytes/100 WBC Auto (Bl d)Ordered By: Joana Farooq on 09-06-2021 Lymphocytes/100 WBC (Bld) 10.8 % . [facility] MCH Auto (RBC) [Entitic mass ]Ordered By: Joana Farooq on 09-06-2021 MCH (RBC) [Entitic mass] 29.1 pg 27.5-35.2 [facility] MCHC Auto (RBC) [Mass/Vol]Or dered By: Joana Farooq on 09-06-2021 MCHC (RBC) [Mass/Vol] 33.1 g/dL 32.5-35.6 [facility] MCV Auto (RBC) [Entitic vol] Ordered By: Joana Farooq on 09-06-2021 MCV (RBC) [Entitic vol] 87.9 fL 83.5-101 [facility] Monocytes Auto (Bld) [#/Vol] Ordered By: Joana Farooq on 09-06-2021 Monocytes (Bld) [#/Vol] 0.7 10*3/uL 0.0-0.8 [facility] Monocytes/100 WBC Auto (Bld) Ordered By: Joana Farooq on 09-06-2021 Monocytes/100 WBC (Bld) 11.2 % . [facility] Neutrophils Auto (Bld) [#/Vo l]Ordered By: Joana Farooq on 09-06-2021 Neutrophils (Bld) [#/Vol] 4.1 10*3/uL 1.8-7.7 [facility] Neutrophils/100 WBC Auto (Bl d)Ordered By: Joana Farooq on 09-06-2021 Neutrophils/100 WBC (Bld) 70.8 % . [facility] No Panel Informationon 09-06 3.3\S\3.3 Normal <5.0 [facility] Work Phone: Comment on above: PERFORMED BY:[facility] [place], [place] [phone] MEDICAL DIRECTORAPRIL VEGA M.D. 15\S\15 Normal [facility] y 250 DO Work Phone: 75\S\75 Normal 35-149 [facility] y 250 DO Work Phone: Comment on above: TRIG ATP III CLASSIF ICATION TRIG less than 150 mg/dL Normal TRIG 150-199 mg/dL Borderline high TRIG 200-500 mg/dL High TRIG greater than 500 mg/dL Very high Standard traceable to the Center for Disease Conrtrol and Prevention (CDC) test method. 46\S\46 Normal 29-71 [facility] y 250 DO Work Phone: Comment on above: HDL CHOL ATP-III CLA SSIFICATION Cardiovascular Risk HDL > or equal to 60 mg/dL LOW HDL < 40 mg/dL HIGH No Panel InformationOrdered By: Joana Farooq on 09-06-2021 Estimated GFR () 57 mL/Min [facility] Comment on above: GFR estimated refere nce range: According to KDOQI guidelines, <60 ml/min/1.73m2 is sufficient to diagnose a patient with chronic kidney disease. Pharmacy Creatinine Clearance (Chem N/A [facility] Platelet mean volume Auto (B ld) [Entitic vol]Ordered By: Joana Farooq on 09-06-2021 Platelet mean volume (Bld) [Entitic vol] 7.4 fL 6.6-10.1 [facility] Platelets Auto (Bld) [#/Vol] Ordered By: Joana Farooq on 09-06-2021 Platelets (Bld) [#/Vol] 227 10*3/uL 150-450 [facility] Protein [Mass/volume] in Ser um or PlasmaOrdered By: Joana Farooq on 09-06-2021 Protein [Mass/Vol] 6.5 g/dL 6.1-7.9 [facility] RBC Auto (Bld) [#/Vol]Ordere d By: Joana Farooq on 09-06-2021 RBC (Bld) [#/Vol] 4.73 10*6/uL 3.90-5.60 [facility] Serum or plasma alanine bartholomew otransferase measurement without P-5'-P (enzymatic activiOrdered By: Joana Farooq on 09-06-2021 ALT No additional P-5'-P [Catalytic activity/Vol] 17 U/L 10-60 [facility] Serum or plasma albumin/glob ulin mass ratioOrdered By: Joana Farooq on 09-06-2021 Albumin/Globulin [Mass ratio] 1.3 {ratio} [facility] Serum or plasma alkaline dorothea sphatase measurement (enzymatic activity/volume)Ordered By: Joana Farooq on 09-06-2021 ALP [Catalytic activity/Vol] 84 U/L 32-92 [facility] Serum or plasma aspartate am inotransferase measurement (enzymatic activity/volume)Ordered By: Joana Farooq on 09-06-2021 AST [Catalytic activity/Vol] 25 U/L 10-42 [facility] Serum or plasma calcium victor m urement (mass/volume)Ordered By: Joana Farooq on 09-06-2021 Calcium [Mass/Vol] 10.4 mg/dL 8.2-10.2 [facility] Serum or plasma chloride meenakshi surement (moles/volume)Ordered By: Joana Farooq on 09-06-2021 Chloride [Moles/Vol] 101 mmol/L 95-114 [facility] Serum or plasma glucose victor m urement (mass/volume)Ordered By: Joana Farooq on 09-06-2021 Glucose [Mass/Vol] 118 mg/dL 70-100 [facility] Comment on above: ADA recommended refe rence range Random Glucose Reference Range is dependent on time and content of last meal. Glucose of more than 200 mg/dL in a nonstressed, ambulatory subject supports the diagnosis of Diabetes Mellitus. Serum or plasma high density lipoprotein (HDL) cholesterol measurementOrdered By: Stephanie Burgess on 09-06-2021 Cholesterol in HDL [Mass/Vol] 46 mg/dL 29-71 [facility] Comment on above: HDL CHOL ATP-III CLA SSIFICATION Cardiovascular Risk HDL > or equal to 60 mg/dL LOW HDL < 40 mg/dL HIGH Serum or plasma potassium me asurement (moles/volume)Ordered By: Joana Farooq on 09-06-2021 Potassium [Moles/Vol] 4.3 mmol/L 3.5-5.1 [facility] Serum or plasma sodium measu rement (moles/volume)Ordered By: Joana Farooq on 09-06-2021 Sodium [Moles/Vol] 140 mmol/L 136-146 [facility] Serum or plasma total biliru bin measurement (mass/volume)Ordered By: Joana Farooq on 09-06-2021 Bilirubin [Mass/Vol] 0.8 mg/dL 0.3-1.2 [facility] Serum or plasma total carbon dioxide measurement (moles/volume)Ordered By: Joana Farooq on 09-06-2021 CO2 [Moles/Vol] 26.5 mmol/L 22.0-30.0 [facility] Serum or plasma total choles terol/high density lipoprotein (HDL) cholesterol mass ratOrdered By: Stephanie Burgess on 09-06-2021 Cholesterol.total/Cho lesterol in HDL [Mass ratio] 3.3 {ratio} <5.0 [facility] Serum or plasma urea nitroge n measurement (mass/volume)Ordered By: Joana Farooq on 09-06-2021 Urea nitrogen [Mass/Vol] 30 mg/dL 9-23 [facility] Serum or plasma uric acid me asurement (mass/volume)Ordered By: Joana Farooq on 09-06-2021 Urate [Mass/Vol] 4.8 mg/dL 2.6-7.2 [facility] Triglyceride [Mass/volume] i n Serum or PlasmaOrdered By: Stephanie Burgess on 09-06-2021 Triglyceride [Mass/Vol] 75 mg/dL 35-149 [facility] Comment on above: TRIG ATP III CLASSIF ICATION TRIG less than 150 mg/dL Normal TRIG 150-199 mg/dL Borderline high TRIG 200-500 mg/dL High TRIG greater than 500 mg/dL Very high Standard traceable to the Center for Disease Conrtrol and Prevention (CDC) test method. Provider Orderson 09-04-2021 Provider Orders [id number] [facility] Coding Summaryon 08-31-2021 Coding Summary [employer]Base 64 AuiancqbTFk9cYt+PGhlYWQ+PE 9DZNIdU50snCSmlM0ZS8tSZW6D ZZZVIJRPEF6EHQ5xeVB0DIcuT5 VybiAv SoanhBLyUD43HKb5WGA2sNowAP qlgI9hhTHxW0j5OyKtZF01oL79 KYeiKYSxPbT2LqUehqvbuGAo G4wyQtNnzVTgIbb+PHRhYmxlIH srHRExHEsgJRBsTjFmjAjtTH4z Rz1yZXVxPMEnhBidfQXsLaEu w6irMNJwBUcgKZ1uyPbaZ0FrnT U3ZOLzd4m9Uy71lFC+PHRkIHN0 gQpaJZdlp910NeKzl8lrKNB0 dHEcQOttFIX0D21hz2J8KPMbRZ AlDIF7cOZ5uL9cuOcwgkndA6Qb nXRsJdI4PMX1fNQsdY2sxHwk nkjmqZ8uOgm+Q01LZV4BSDEWGF 2MRzy6O2FgYsnsaEE+LA92AJDt WM07jMAlsWJwh7vpmJv3XePe GSUnFYW1bBuuXQyvr2TkBEGcR2 8tyHHtf3M3EFVtaMzaoPCuXcKg oYX2cF8aNHwivverq7fnrimd Vtate7tbds62uF25P82aZBmfMM PcICZ7YKFmOEHmjFzfan7kfA0d Ii8+MQvze2kax1xhpMf8DyQd BVSeegZfhUlvHTB5t2RcSw71N9 FslIugb7QvItj6wz22gYDyl3G3 hJE7UNnxQQScaG1sXSmsMnY3 BBOoRsIyzN87tFLmTOceCv6rvD gbkWjqMU2oWPCbaayyIYLswB3o FCMptKJikElwDB7eHLTveicz w564CmOpIOP3SECayPAxW1IdhR 8pHpRdGQXmUUCkS5QlbDSjMDct L445DYrlSwN4RNYlqmPlF6Nj YUKapNgdAvS2h7I7Oj0Vh4Kyjw eaTUA7WQzdVYA2ZpD5TsKtKcS5 D3XoPcm6YSXhpGmpQM2eZ1Kf DBEceveqffxuhGK6VAOlPHArqX 86tGLrGJoiUl0vy0G1o859BOXe VTQxoE75Iq5qfOigZMEdjADB sL1tucghv0yhmayqJoTiZJVgYI d4MCh0JKLflXswLxNpDMM1IqJ2 VEQ1tQBbjC6tmByhdwdxnA7w Oyc+T34vuZ0kFDP7QDR8yeaaIM PictUyNI11BG36S8HpVbkkvYCu bGU+IVVbdgHupOhyLA7zNbPl s4zhu1TgFBriE9MhLSOiUMnvHz o5XJZiAMF5gQN7pA3eWKPbPJfs f3M4yCW6V1NjegMgqj3zq1vs GBIaFZdvX22auRRun6M9EFIktO C7RCMphTqdJjJzaQ00Utr+PGNv tKaiv1UdAllfl2xcx8heoYy8 LsCyWCRgvpWsiJinDAO6a7ZaSu 10C06qDTlkQUDdQWQtNDLpFGMa dQocsn2wmW6fWt6+PGNvbCB3 dJU2mF3lFVSyOyZ8DRjrU864Hl YjeLEcYhqda4kuq5agsMa2GqBh KNAscpDowEjrSGA9b1XdLq50 D77hOBitGMKwLRZxCOOaSZGmmU dvoo9ofH9hUf4+PS6ec1dmit80 qF16hDW+YZRcRSG3bDkwCRty WOJrjM5hSUpkPdW6CURaPbYhnM 44tBAfPDgdYi6qnSjlrIcaTG8j EOEokltiy760QhOds9nwIQAr hKKqAOiwXPD6J09oi8M2LYJpSY NzDPP4uKW9lG5hyLlbihayiIFl eKmowbTveHtnVQqiFNhpM022 IHRvcDsnPlBhdGllbnQgTmFtZT f4M4WaYhp1UGSchGukPV5eyDSg DObuHf7krIwosGjdWR8zUFHn xxuuc634DpZro5trBDGyqTWmMJ tuHBJ3T85yc2B5YVImMSUuHRL1 mTS7fV5lyIkgkmkwwUOcoNbr juLzjEglOBdwMWstW465PECdpW sfOcJgkyCiWFLeiEH6ST81PV93 qHRqi6S6mNC4O6AjJGVjvwbz zkpzhVN2XBEgDIAyiW46Fg2zvR woKo9bRLUiLZX1GIIvnKPyQ4Ke iH6zOgHiJHYdMJXuO3DrvVFc LWbfX315JUpjMdG7SVXkizLhX3 PeUDUrvWncSbM6s1M9Md8BF4B7 KH74PY20eQWhq8T4xUQ5L1Uy MLVgwkjsvunhjZL1CVKlAKCfzO 22Jc8mbNnrPc7lCXSfXLM4IKTu zAOxD7WstT2tYdJoVNPvADVm F1HamORyVYakA752MUmhUtH6DZ DksaDpU4IeILLxnWmfDjQ0n2A8 Ae7YPOl2DW91LQ47jSXid4U7 pJO7E6XdBFKxakvnbltkeFD4PD GqNINkhG83Mc9rkZigXf2yWPMy CCD7HGNskQYhR6MwuM0dHxVe YCJeRBNaA9YpqWMgMGdxM077OT utWmF9YMRnsbBbJ7HqIKGczJpi KyI2k5I4Ie8SBPJuTZ90TBK9 eYY1KQ63FT23X7JaSnsyfTUrcR U+PHRhYmxlIHdpZHRoPScxMDAl CdUsnDcyJO1uUo7sFWPgQQTh sPwpgJIkAbMqn3prRLAmDUvsED 1udZpsJ4BriXE4MKIbc9h2Ip62 X00wP6BgpWD+TLWdtOD1nMP3 bM5kIzShGjP8PDcdA651ImGhhJ CqHabcc5fzy5rmnPd6VjF1ENVq ptFqmZjoVRG1s8LcLq30I36l IHdpZHRoPSIxNSUiIHZhbGlnbj 4jsR8rGk4+ZDCkyGH3tIA9mC1n GjMfCeL1BJmmI610HtJekXBz Xyvhu6qsv0mdcFp9TvXlFFCzcx EklHxhONG1o3AhDz08J2TyxIxe y9CoZdw4cd09xAFam4G0yTB3 E7XbSRXzqiimiZRpgHbdTL8yST TrobopNMUidX2qHNUyP4g0XeGu EhT0IDrsB8UoxxC9RHOenSKd VIuiOTB1T14lw8O8RRLgKANaFB N2xES5oC2wsZdefmunuAIhfCiw zkVbgTfyKVrsTOnuP366TNYu wHdyFATgwI9iVDAvvKUuvCocMX 2yASWpazgpTmWTQHGVWXJUEM2L BAvKDYADENW0P7EsKoc2FTQt bWgyFK6avONgCJiwIp3scTskeP yyIN1mXGNrcijuKTGonS6aRFWr lKOldLzvCB8zRZQkampoo355 SsPbAVR1FAGpoLKuH2NsxV3bHl NlHCRwCXJwN0MyqDSsZFfvF344 FBysWxZ8MZMgdzQvC5BgPSLl mGapRzO4b6J7Qp0mMI5kSR3ePU P7AP56XA83mDPqc2Y2uTM4W8Yg CAEboxedaomxaMC1DWXbNZPh bR90fUBtYLoqMn9ax3V4y080MI TeDEBkmV81Tp2eoWqcMTNakZHX bV8cmqvst7atjwwiWwWeVEYo KQl4NOo3OOMjbQibNcAeNPK1St S1WZO7cHQhuQ6ejVdzoadbvF2h Oyc+KfUkAAGmgdU9T7HdZwq9 VYQsdFdlCR9ukEAdUZjfEj8ygH gorRkaIT0iSYAyjidfYWWtkL6h RQJhnYAznNadID5wIXYxsasz q116WyLvGLT2YMFfmVWgT3DteH 8mSmKbQSMgCTNtF8GhbHEtRKtt D440DTjdIjT6FOJhvaXvF2Kh YPJmzApcRkU7j4I9Zx9JBGvOBS 75CY92nRAsy7L6lGZ5E8UtCFOs uumsxqnlkKD2NKHbUBExwG02 bETqQWvnKi4pa4Y3v263HZMhVT RfnV40Nb6feHipINEjkFWXdQ0g ssiym0gjgbtmZoIsYEJdJXz0 WAg3ZWVqsEmiEhYeSPZ9CuC0LK H4aPYomI1noFwyqcyiaW7uNpd+ MyZwuKXwvH0aEM23gPRpqMsg enL7U3OvWyhhuAW+QJ82RIBpTU 87yJOfmVJpf0drkNy1UgFqSXHg DYW2oVpaDBjft7RuWYXuT35l xLJld8R3JKLplHzgrZIfBgXgcV J7oH0yBRullytpk4qnoftrWurh u3eqmg61hY95K14iQWtjIFAi JWJlTUAsVEKnxBjlyb3peD4hBl 8+CHUutBD1vZH1hO5mZyTnSjY4 PSqlI433XyCmxERzAcoct9qt a0gggPf0VbWdYTInlnSyiRksWC F8e0ZmUj04S40fLZnhPCFfLWKq NLBlEQBecCauos0vwD4mAj0+ UZ2kz3fzff98nP81zTR+PHRkIH E9eAxeSNxbFSNxmB7lTZrgWkE4 RGWeNgPssE79vOUkGZnnTs3c aMhguCrrWN4rYPQqgmwlt488Qc Yak8izPDYaiALdXMoiVOE8E85b o9O2MUVbNAYkGNC1qGN0vA1l bGlnbjogbGVmdDsgdmVydGljYW mlTYrnZ129UHUgdUpaPiUokQKu Y8uexcSERC9mGsuvrVT+PHRk CTX8rSszOVniFTOrkW2aHVGbK2 d8XoSqZnJ4EFliE3WmulP3XEWb zNChIAEktSOVqL0xhskhn0cg myzsMaOvALOiCCl2VCv3PFOrlD bzJmKxQJR5StP6GNK8mZKpiP7f mVokomdxvL9rFhd+RklOOjwv dGQ+UKXfSVM6aGukYYkjGFXswE 8fODSbT8v1FaKaHqD5ONcwT8Xt epY5XPUtlWGlSKJxlDDDgT0i chqrs2fnjrvcYrMiSYTgOSz3FY e0ODIkuTfkWaXxLGI3HbB4BIU7 wQWgdF5npJmxgdzeeR0iOvj+ TVJOOjwvdGQ+YBAcHJL3uCfvTM eqRYZelQ2tVTUuA9l7TuFrOmM7 VFgnK6ActmM9ZCGytSViGDKp eSLCrF4ubatqw1wcpaawJzMzJQ UfVRw0HQn5ZONgpWwuLlToKUF5 CdK1QJQ7rCNfaM3aoOuwmjcm bS6eUiv+DRB4KIC1IJ88WA03K2 RyPjwvdGFibGU+PHRhYmxlIHdp ZEGqUEqcCOJsYuNsgVktZD2f Ym9 (more content not included)... [facility] Consent Formson 08-29-2021 Consent Forms [id number][facility]-2021 Provider Orders [id number]#[facility] XR cervical spine 5V*on XR cervical spine 5V* [id number]) XR/XR cervical spine 5V*: Other chronic pain;Pain in right [facility] Other XR cervical spine 5V* 5 views of thecerv ical spine [facility] Other XR cervical spine 5V* HISTORY: Mid anter ior cervical spine pain. [facility] Other XR cervical spine 5V* COMPARISON: None [facility] Other XR cervical spine 5V* Straightening of c ervical lordosis. [facility] Other XR cervical spine 5V* No acute cervical spine fracture identified. [facility] Other XR cervical spine 5V* 4 mm C3-4 anteroli sthesis present. [facility] Other XR cervical spine 5V* C5-6 and C6-7 mode rate disc space and endplate spurring present. C3-4, C4-5 and C5-6 bilateral bony [facility] Other XR cervical spine 5V* neural foraminal n arrowing present. [facility] Other XR cervical spine 5V* 2 mild facet degen eration present. [facility] Other XR cervical spine 5V* The bony neurofora men are patent. [facility] Other XR cervical spine 5V* The dens is intact. [facility] Other XR cervical spine 5V* The craniocervical junction is unremarkable. [facility] Other XR cervical spine 5V* No paraspinal soft tissue abnormality seen. [facility] Other XR cervical spine 5V* XR/XR cervical spine 5V* [facility] Other XR cervical spine 5V* IMPRESSION: 4 mm C 3-4 anterolisthesis. C5-6 and C6-7 moderate spondylosis. [facility] Other XR cervical spine 5V* Impression dictate d by: Kwasi Tomlin M.D.08/22/2021 4:06 PM [facility] Other XR cervical spine 5V* Dictation Location : [place] [address] [facility] Other XR cervical spine 5V* Transcribed By: CRISTINO Staton 08/22/21 1606 [facility] Other XR cervical spine 5V* Dictated By: Kwasi Tomlin DO 08/22/21 1604 [facility] Other XR cervical spine 5V* Signed By: Nor [employer] Other XR cervical spine 5V* 08/22/21 1606 [facility] Other XR shoulder RT min 2V*on XR shoulder RT min 2V* [facility] Other XR shoulder RT min 2V* [facility] Other XR shoulder RT min 2V* [address] [place] [address] [facility] Other XR shoulder RT min 2V* [place] [address] [facility] Other XR shoulder RT min 2V* XRay Report [facility] Other XR shoulder RT min 2V* Signed [facility] Other XR shoulder RT min 2V* Patient: Sandra Potter MR#: [id number] [facility] Other XR shoulder RT min 2V* 357 [facility] Other XR shoulder RT min 2V* : 1955 Acct:[id number] [facility] Other XR shoulder RT min 2V* Age/Sex: 66 / M ADM Date: 08/22/21 [facility] Other XR shoulder RT min 2V* Loc: [facility] Room: Type: [facility] Other XR shoulder RT min 2V* Attending Dr: Geeta Dumont APRN, [employer]-C [facility] Other XR shoulder RT min 2V* Ordering Provider: Geeta Dumont APRN, RETORT SETTER [facility] Other XR shoulder RT min 2V* Date of Service: 08/22/21 [facility] Other XR shoulder RT min 2V* XR/XR shoulder RT min 2V*: Other chronic pain;Pain in right [facility] Other XR shoulder RT min 2V* shoulder;Cervical pain (nec [facility] Other XR shoulder RT min 2V* Copies to: Geeta Dumont APRN, ISABELLA [facility] Other XR shoulder RT min 2V* Right shoulder 08/22/2021. [employer] Other XR shoulder RT min 2V* CLINICAL DATA: Right shoulder pain and limited range of motion. [facility] Other XR shoulder RT min 2V* FINDINGS: 3 views of the right shoulder were obtained. [facility] Other XR shoulder RT min 2V* No acute fracture or dislocation is identified. Relatively mild degenerative changes are seen. [facility] Other XR shoulder RT min 2V* Findings include subchondral cystic changes at the glenoid. No bony erosion or destruction is [facility] Other XR shoulder RT min 2V* visualized. [facility] Other XR shoulder RT min 2V* XR/XR shoulder RT min 2V* [facility] Other XR shoulder RT min 2V* IMPRESSION: Mild degenerative changes. No acute bony abnormality. [facility] Other XR shoulder RT min 2V* Impression dictated by: Lucius Tavares Jr., M.D.08/22/2021 4:16 PM [facility] Other XR shoulder RT min 2V* Dictation Location: [place] [address] [facility] Other XR shoulder RT min 2V* Transcribed By: PWS 08/22/21 161 [facility] Other XR shoulder RT min 2V* Dictated By: Lucius Tavares Jr, MD 08/22/211612 [facility] Other XR shoulder RT min 2V* Signed By: [facility] Other XR shoulder RT min 2V* 08/22/21 161 [facility] Other Lab - Other Lab [facility] Lab - Other Lab Results [id number]#1.00[facility] Coding Summaryon 06-28-2021 Coding Summary HTMLBase 64 TkviraijAVw4pAy+PGhlYWQ+PE 7CJLAoC89tpITpuR1GD8rDAI7X HHZRXPKWHH1GEN4ajUC4IOmnE0 VybiAv HwhjpXBoWA01GZw6HNS3wUbiDW jvyV6cdOMrJ1x0MsWsEJ92dH76 SZiiGPEwVtY1NvGsqipmyOIi B0miYgPdzZVdLyi+PHRhYmxlIH pvZAMuYWobJMEgHdSexRapXU1z Lj7aIFBrADRiaMmriCFaMoCk j7atPZGeIUiwHY7tsItcM4QldB H8PJDej6q9Jt39tRS+PHRkIHN0 pMttGZeqw722YrSjr2ykSXZ3 yUFiIQlaLDW9T22di5E3PQJrBS KmPVW4kNJ1bJ4ieBtadqnaP6Se eBWaKcT1VFU6uQIdzB4kxPls wwbmbU7oMbl+R69QDI9FWNPTVX 1LJfo7H9UxIappkWV+EJ63OJKf FJ74tSNjlTXun3myqYa6ZoFp JEDqLQZ9oRboXYoxz4VxHYYbE7 2jxJBwg1A4CIHloAslfRHkHnPq rBT3lY0oFKxcevvps4irxhmr Kcred5ofub09sH86A31tSQewSU MpUGY9GCFsZOFuaRxlnl8wjT7v Ii8+LSuud1xoq3lcrRc8DaBp PXQhjqNqsXbnRDP1e9FtPm22Y5 JgoZedc2GfDlv7zr13xOEys9Q8 eJU3BPskGGRfwN5tPFeoPqN3 DZKlZrNblZ14rCCtZFpcNg0axN sagFxkJM9kBZPvpqntRWAtzA0n PNEecCKcaCvxNN0tWGDnqxnp a010UvBfNUP8QJSuySDhP6XfkL 2dRfCrLFOxHGEvR8PozMDyMNou X309PKfzFvO8KTJbfpInL1Nv WTIqySexJcR8e2E5Qo5Tv5Uusj iyUJO2WVelUHU5YcZhJmHdFhO7 J2EeNug6XQEjlGexQZ3hS7Ie QHFhgqylkzfntYP9ZZRyVFOzxK 71nGOmACihEm1ja9N9q818EZVj LYVfxM11Of7baLfiNBSbxPXT rF0resjqe4qpruveXnUvSKJmJD x3LRf5XBHslYfgNaPpFOY0NkR3 GRU4dFOkuR6egOgcekuhdA8d Oyc+B35fjA0uBKA5OKZ3lhzqFU SemnLaVY84ME88S4JsWfpiyNVs bGU+UZCdfyXszYyfDZ2wMzDq p0afp1YsOVktK7JaFYIbEEfzCz i2URLqEZJ0rYX5mX5gDMSjROkj d1T5yPC0B8WxbiIkps2ud6tx PTNpGLojP31efEYaf5D6ZADrxE Z2FZXthHshHdGtcL46Fkg+PGNv iKfns6ItXeskj1lsi7xnmFv1 NdAaZNYnspYxxQxeNXN0a5TrNp 50R70tCCddKRXkJWYuSHOiJBBo yVibbd9jwT0iKj0+PGNvbCB3 nFG0bW9wTKGqUcP6JHfdJ635Vy MpfIOrXpbak7wgy3hukXf3EjGi LZIktmUblBvlFBM5j6RuKs18 D56cEOmmWLXnFXJwAVPrYWSpsW cwne4jrQ3tGl7+HS4sx5bdso18 eB87qQR+PDInIBO3zAcgZJlf EPZbiD2yFUfjNeG2QRQtGzDnvV 96rFYaKWdsIt7ihLbhbCzeRL0h MXOxzmbln471KlOwn7joEWMz kZJwSWvcSIM8O88ud8G6FVOuTV ClUIX2lYJ2dF5boEeguhhgsGUz eOuyucNmtRnwRQmrHMskF740 IHRvcDsnPlBhdGllbnQgTmFtZT t8C6IaDoe2CVNimYkzVF8ucQPb OFyaKl8ivXqtaBtrFF7xXCCo hjybj750UgCwn3btNHDwyNBfHK vkLFL5M37at1G8FMPkQYKpGBE1 wVD1mP0ulWruwwqhyIEefIdc lxVeaRnhHSlhHUerE998WYNwiM zaAxPknmVoBNXgiNM1IV29JU44 hAVik8E2mDC5D9AnJOXwjhtn yppmaUL7ZRJzAHKhdW07Jm5qqF vnXk7fFYMeAJL9PJKhwRNtO9Wg gJ0yRuVrWHMcYVYmB1YoeICx LXjhY614GKykXkH5PNSwlkRiI7 LhWWQeeAfdKvO9i0L8Ha7XI3V5 OX60QJ77wBRpz1N3xGP7O0Jg JQOotypdcpmjyRR3IEBfBHGvoQ 26Zx6abFdgUp3mBIYjHSK1ZNJb iHHlD4MwwN7qXeHeSZOvTLHh Z3VmdAZeODodU441WEttVaT4ZV NzmxOiO8AgLAQybUtiSjF6b6G6 Bz3EOIv1MR89CI10cHXfz1I8 qVP6J1XnQZCstvffgldnkKZ8GC CvQVBfoP36Sy1qiXgwBt2aMFUj MHJ6ZKJveIJxE8KyqH1iCwAw OPUsWDLjO2IouASfDIbxB126JG rgPaI7ZTUystNlP3JzSVGubUvl CqZ7p4X9Rd6CJJGsZH14JPM5 xGN3CY99FH89C8AoFqtfgJHazZ U+PHRhYmxlIHdpZHRoPScxMDAl ApEjcPfwXL5xZi8pLDInJVFr fXsliCIqSqRcb4vcLMTdILeuJI 4rzWkeS8OrrGA2QAJyn8h4Wx64 L82gL5DnaDO+AIYflIZ3fML4 hR7oTuYjUmE6ZFnyR998JjRtqJ OpZsayj7yok4rbiEv8HlH8RAYp qyYrsKxhIVW3k9UbHd51G08r IHdpZHRoPSIxNSUiIHZhbGlnbj 8njZ1sRa8+EVQioJH2xYF4yN7a FuSvQwY7DUcaP039LyIgbDJu Xohzj0tdl4rnmNy4NyKyECUwql TvuLepFXZ9s1VcEo14K6LiiDuy l0HrArt7nc20mHMvm8E2xEA7 W5RuGRKjtenwcPFwdTacRK1cNM YypclpQTBezF5dITPeL6h4AgKe JuG9HKqvY5FfjiZ9DPCqrODe CTnbRBK1X85vl8C4PBXjPZZkLJ Z2tKZ1mY2htEzzzkoolQZmvFrc qfEfzAzeJWhpSIilY210FWUg wKwoTYMkwJ8rSTKduIMzlArgVL 2cOKTjszkpQcVPBQQANFGMRA2Y MApITYNPABT7S2BzOun7DVIc nZdsQS3vaBWcYEpxTv9rtCuoxB vxNZ2xYFFlcwgcRPUrvC1vYRGu rXQjwKgvWT9kFDJtnjffh724 ZpOuFEN8YHPjcIMhW3JioV1fEu SjAATtZYSeX0XgiZKlDTypD876 JXxxUeF0KKAvwyHiU7UeNLOr kUjtZfK1v3J4Cj5zPI5hPV2vRK R6TE73CU25vVKyp7B5bBF5E0Rl JMHygcqvucaylNB0ZYDvFFGo hY02wZJcMHgwPt7rd5Y9t196TY DvUQGiuM61Eq3hnFvyHYVhqVTA wV3gtyowi6qqwempTkFlGNQz JZw7VYf3JUYhqNzxVzTrGIA3Nk Q4IBI1dZPkmY7mzGxuhzjgiH0r Oyc+RtBjEJJtelX3Q5GkLwa6 GHUudDtsFQ2wvRJiFWfdKv4fmW cjiBbfAD9pUDXaclwrJUDxvS4o DCJaaPLrpBlbGW7dWHQpliqc n507OpXzMMR7MZYuzILxO9FmaE 3zCkUqMGXlNOYhU9HgmFEzOSdt W535QTygHsM6JCHdsvYuS5Uk OGGgjVdgAaS8h0D6Il3LBQlUFH 14LH44kGWvc9B4jOM6S9PcFSOu amltuuvseJY6BVOxCBBxwT99 wTObZMniMz1rg9D1x236QUXzHH GemH94Bq1ftKzcUXCpyYVQpS1n omsah8lvrvpePdPhPWNkCOm3 MDh8EAHohEggJkAdWZI1MiP0DY R4lVGkxZ3xaRwgngwoiO2qOcy+ L5Z0L1LxZvtnxSB+JE30WZQs DI03wXYbvPQet0rprOw2RbUlKL GoICF2kJfuZIhnj4RdLIQpF64f hJDhc7Q1YLUmxVkgyUHlLlFb rXW0rX2hIJpaaurzy0kslxxkWz syd8hgrt55lE34Y81gCOipZDPu MEBmJACxDSQhnBgyvo1mtG8z Ii8+EKMmlPC2yBU9wQ2zYdIpWr L5UOyfV063WkUrjPOaMatnf0bw c0hfiAe4RsAtNERtceYfzTka PHD0t0BjZd66H40pMPkkKQWePG XjZCEwHQKiwMtfmb8ccL3eZh1+ PS5fm4udie56bG15pWW+PHRk DVB5eZaxJKliMTEfjJ1xGHdkSl L5LNDjQaWxwG47aLInPTnuHj8q rRpmnUurQM1wOXXkrsgya135 ReIcb8zdRBNejWFlDUsaRJK5H8 6su4T0OHEoRPDpXTW3tVQ3xD2e bGlnbjogbGVmdDsgdmVydGlj JYrqZAikA998ARVmjCxcTzFlzX HwR1onnkOIET8zZbjnfTZ+PHRk QND8hGfhBAgvYEVmuH8pFSBt H8r2PuRpSqC3ENuwG0KwuuO0VG UabANsZZVusBXUbT4mkveix6px rhapWkSeJWWkBWn1ROy2JTPe pKbaDoFoKVA5WjE8MVE9qDFplU 3dfCgqjiqloP9uObo+RklOOjwv dGQ+HYWjOXD6bTpxCNuqYTJn zX6cYTVjH5o9YxNaZmU3FIerR7 FjbiP4LXFzjUDfVTZggJAIrU2d fjloy2bnuvepDtErSOXeEJp7 STk2QRTpaXouBrMhHEN6PyB8FX N8cGIqcD3leBgrpqkjxU2sZwn+ TVJOOjwvdGQ+IQFqBJT8cFub MYdvSXSmpK6zAJQnH5u0ZuTjWj O5XFviJ1GatcT8FDEfdLBiSXLm lAUDnY5docuhj8cylnmeOsSc PVMoQMd0GOb3JKUsdTywPoCuRY T5FaB6VKR4oZKxiO8knNghiuck xC4bUky+JTZ3CUL4HR01JC31 B0NzBhrnkRLvvQT+PHRhYmxlIH swFMYcECgaOAPlScJvcSjaIW0m Tu7kNXIjNMHglWendWCrMkMo b2x (more content not included)... Normal [facility] Calcium, Ionized, Serum LCon 06-23-2021 Calcium, Ionized, Serum LC 6.1 mg/dL High 4.5-5.6 [facility] Comment on above: Result Comment: Perf ormed At: [address] [id number] Zachary Wade PhD Ph:[phone] Performed By: #### 1 [id number], 24342970, 7742844, [id number], 5356748 ####[facility] (DEFAULT)[address] [place] [address] PTH, Intact LCon 06-23-2021 PTH, Intact LC 104 pg/mL High 15-65 [facility] Comment on above: Result Comment: Perf ormed At: [place] [id number] [place], [place] [id number] Zachary Wade PhD Ph:[phone] Performed By: #### 1 [id number], 49095508, 0662720, [id number], 7023061 ####[facility] (DEFAULT)[address] [place] [address] Provider Orderson 06-23-2021 Provider Orders [id number] Normal [facility] CMP Standardon 06-22-2021 eGFR AA >60 Invalid Interpretation Code [facility] Comment on above: Result Comment: Bookkeepers Supervisor nancy Kidney disease could be indicated at eGFRs of less than 60 ml/min/1.73m2. Kidney Failure is indicated at less than 15 ml/min/1.73m2 Performed By: #### 1 [id number], 71302470, 1956351, [id number], 4348806 ####[facility] (DEFAULT)[address] [place] [address] 85370 eGFR Non AA >60 Invalid Interpretation Code [facility] Comment on above: Performed By: #### 1 [id number], 32001261, 4208784, [id number], 1341536 ####[facility] (DEFAULT)[address] [place] [address] 38901 Albumin [Mass/Vol] 4.3 g/dL Normal 3.5-5.0 [facility] Comment on above: Performed By: #### 1 [id number], 85155425, 1229040, [id number], 3393851 ####[facility] (DEFAULT)[address] [place] [address] 32675 Albumin/Globulin [Mass ratio] 1.4 {ratio} Normal 1.4-2.6 [facility] Comment on above: Performed By: #### 1 7791836, 99877109, 8204051, [id number], 5304463 ####[facility] (DEFAULT)[address] [place] [address] 93708 Alk Phos 70 IU/L Normal 32-91 [facility] Comment on above: Performed By: #### 1 7379844, 26034423, 7571967, [id number], 5906096 ####[facility] (DEFAULT)[address] [place] [address] 92533 ALT [Catalytic activity/Vol] 28.0 U/L Normal 17.0-63.0 [facility] Comment on above: Performed By: #### 1 9157544, 35485496, 8748340, [id number], 1373168 ####[facility] (DEFAULT)[address] [place] [address] 05483 Anion gap [Moles/Vol] 14.0 mmol/L Normal 5.0-19.0 [facility] Comment on above: Performed By: #### 1 [id number], 39750382, 7922001, 4422263924, 4348811 ####[facility] (DEFAULT)[address] [place] [address] 21921 AST [Catalytic activity/Vol] 36 U/L Normal 15-41 [facility] Comment on above: Performed By: #### 1 4687844, 32085895, 5902203, [id number], 8104565 ####[facility] (DEFAULT)[address] [place] [address] Bili Total 0.7 mg/dL Normal 0.3-1.2 [facility] Comment on above: Performed By: #### 1 2994433, 18904784, 9359807, 1009578615, 9433120 ####[facility] (DEFAULT)[address] [place] [address] 57094 Calcium [Mass/Vol] 10.8 mg/dL High 8.9-10.3 [facility] Comment on above: Performed By: #### 1 4764818, 92489952, 6067801, [id number], 9717572 ####[facility] (DEFAULT)[address] [place] [address] 67573 Chloride [Moles/Vol] 107 mmol/L Normal 101-111 [facility] Comment on above: Performed By: #### 1 9146387, 73567752, 9101505, 6279957944, 9027107 ####[facility] (DEFAULT)[address] [place] [address] 68515 CO2 [Moles/Vol] 26 mmol/L Normal 21-32 [facility] Comment on above: Performed By: #### 1 5499890, 66688444, 9439141, [id number], 0045307 ####[facility] (DEFAULT)[address] [place] [address] 46028 Creatinine [Mass/Vol] 1.09 mg/dL Normal 0.90-1.30 [facility] Comment on above: Performed By: #### 1 4506688, 50708430, 8648329, 4326386804, 4584099 ####[facility] (DEFAULT)[address] [place] [address] 51647 Globulin (S) [Mass/Vol] 3.1 g/dL Normal 1.5-4.3 [facility] Comment on above: Performed By: #### 1 4991300, 82960767, 8081362, [id number], 4823537 ####[facility] (DEFAULT)[address] [place] [address] 94663 Glucose [Mass/Vol] 145.0 mg/dL High 74.0-118.0 [facility] Comment on above: Performed By: #### 1 3882725, 60465372, 6173864, [id number], 0463633 ####[facility] (DEFAULT)[address] [place] [address] 73287 Osmolality 288 mOsm/L Invalid Interpretation Code [facility] Comment on above: Performed By: #### 1 3671279, 20274177, 3066255, [id number], 7379767 ####[facility] (DEFAULT)[address] [place] [address] 68192 Potassium [Moles/Vol] 4.8 mmol/L Normal 3.6-5.1 [facility] Comment on above: Performed By: #### 1 7306808, 22164921, 7747378, [id number], 7909586 ####[facility] (DEFAULT)[address] [place] [address] 06416 Protein [Mass/Vol] 7.4 g/dL Normal 6.5-8.1 [facility] Comment on above: Performed By: #### 1 8665022, 76853148, 4521205, 0309141084, 8520602 ####[facility] (DEFAULT)[address] [place] [address] 63658 Sodium [Moles/Vol] 142.0 mmol/L Normal 136.0-144 . 0 [facility] Comment on above: Performed By: #### 1 5042065, 33809508, 7216310, 7080592986, 9439473 ####[facility] (DEFAULT)[address] [place] [address] 94994 Urea nitrogen [Mass/Vol] 19 mg/dL Normal 8-26 [facility] Comment on above: Performed By: #### 1 7331533, 05437967, 7817461, 0360082712, 5867766 ####[facility] (DEFAULT)[address] [place] [address] 37461 Urea nitrogen/Creatinine [Mass ratio] 17.0 mg/mg High 4.6-16.2 [facility] Comment on above: Performed By: #### 1 1097641, 53201262, 0059904, 1405883979, 5361515 ####[facility] (DEFAULT)[address] [place] [address] 14826 Calcium, 24Hr Urine LCon Urine Total Volume LC Enter Here Invalid Interpretation Code [facility] Comment on above: Performed By: #### 2 [id number], [id number], [id number] ####[facility] (DEFAULT)[address] [place] [address] 07056 Creatinine Level Urine Timed on 06-22-2021 Time U Creatinine 24 hr Invalid Interpretation Code [facility] Comment on above: Performed By: #### 2 [id number], [id number], [id number] ####[facility] (DEFAULT)[address] [place] [address] 35426 TV Creatinine 3800 mL Invalid Interpretation Code [facility] Comment on above: Performed By: #### 2 [id number], [id number], [id number] ####[facility] (DEFAULT)[address] [place] [address] 34695 Ur Creatinine 37 mg/dL Invalid Interpretation Code [facility] Comment on above: Performed By: #### 2 [id number], [id number], [id number] ####[facility] (DEFAULT)[address] [place] [address] 17507 [place] Creatinine 1406 mg/24hr Normal 600-1800 [facility] Comment on above: Performed By: #### 2 [id number], [id number], [id number] ####[facility] (DEFAULT)[address] [place] [address] 61930 Magnesiumon 06-22-2021 Magnesium [Mass/Vol] 2.05 mg/dL Normal 1.80-2.50 [facility] Comment on above: Performed By: #### 1 [id number], [id number], [id number], [id number], [id number] ####[facility] (DEFAULT)[address] [place] [address] 68877 Sodium Level Urine Timedon 0 06-22-2021 Time U Sodium 24 hr Invalid Interpretation Code [facility] Comment on above: Performed By: #### 2 [id number], [id number], [id number] ####[facility] (DEFAULT)[address] [place] [address] 07779 TV Sodium 3800 mL Invalid Interpretation Code [facility] Comment on above: Performed By: #### 2 [id number], [id number], [id number] ####[facility] (DEFAULT)[address] [place] [address] 57577 Ur Sodium 35 mmol Invalid Interpretation Code [facility] Comment on above: Performed By: #### 2 [id number], [id number], [id number] ####[facility] (DEFAULT)[address] [place] [address] 88250 [place] Sodium 133 mmol/day Normal 130-200 [facility] Comment on above: Performed By: #### 2 [id number], [id number], [id number] ####[facility] (DEFAULT)[address] [place] [address] 04643 Vit D25 OHon 06-22-2021 Vitamin D 25 OH 74 ng/mL Invalid Interpretation Code [facility] Comment on above: Result Comment: In [...] J Clin Endocrinol Metab 2011; 96 (7): 4870-6468. Performed By: #### 1 [id number], [id number], [id number], [id number], [id number] ####[facility])[address] [place] [address] A1C with Estimated Average G luo 06-12-2021 HbA1c (Bld) [Mass fraction] 6.9 % 4.3-5.6 [facility] HbA1c (Bld) [Mass fraction] 151 % [facility] Other Complete Blood Count Auto Di ffon 06-12-2021 Basophils (Bld) [#/Vol] 0.1 10*3/uL 0.0-0.2 [facility] Other Basophils/100 WBC (Bld) 1.3 % . [facility] Other Eosinophils (Bld) [#/Vol] 0.2 10*3/uL 0.0-0.45 [facility] Other Eosinophils/100 WBC (Bld) 3.2 % . [facility] Other Erythrocyte distribution width (RBC) [Ratio] 16.4 % 12.0-14.8 [facility] Other Hematocrit (Bld) [Volume fraction] 41.7 % 38.8-50.0 [facility] Other Hemoglobin (Bld) [Mass/Vol] 13.7 g/dL 13.0-17.0 [facility] Other Lymphocytes (Bld) [#/Vol] 0.8 10*3/uL 1.00-4.8 [facility] Lymphocytes/100 WBC (Bld) 11.2 % . [facility] Other MCH (RBC) [Entitic mass] 28.9 pg 27.5-35.2 [facility] Other MCH (RBC) [Entitic mass] 32.8 pg 32.5-35.6 [facility] Other MCV (RBC) [Entitic vol] 87.9 fL 83.5-101 [facility] Other Monocytes (Bld) [#/Vol] 1.0 10*3/uL 0.0-0.8 [facility] Monocytes/100 WBC (Bld) 13.4 % . [facility] Other Neutrophils (Bld) [#/Vol] 5.2 10*3/uL 1.8-7.7 [facility] Neutrophils/100 WBC (Bld) 70.9 % . [facility] Other Platelet mean volume (Bld) [Entitic vol] 7.1 fL 6.6-10.1 [facility] Other Platelets (Bld) [#/Vol] 255 10*3/uL 150-450 [facility] Other RBC (Bld) [#/Vol] 4.75 10*6/uL 3.90-5.60 [facility] Other WBC (Bld) [#/Vol] 7.4 10*3/uL 4.1-10.5 [facility] Other Complete Blood Count Auto Diff 7.4 4.5-11.0 [facility] Other Complete Blood Count Auto Diff 0.1 0-0.5 [facility] Other Comprehensive Metabolic Pane anny 06-12-2021 Albumin [Mass/Vol] 4.1 g/dL 3.2-5.5 [facility] Albumin/Globulin [Mass ratio] 1.5 {ratio} [facility] Other ALP [Catalytic activity/Vol] 73 U/L 32-92 [facility] Other ALT [Catalytic activity/Vol] 25 U/L 10-60 [facility] Other AST [Catalytic activity/Vol] 38 U/L 10-42 [facility] Other Bilirubin [Mass/Vol] 0.9 mg/dL 0.3-1.2 [facility] [employer] Other Calcium [Mass/Vol] 10.8 mg/dL 8.2-10.2 [facility] Other Chloride [Moles/Vol] 100 mmol/L 95-114 [facility] [employer] Other CO2 [Moles/Vol] 28.3 mmol/L 22.0-30.0 [facility] [employer] Other Creatinine [Mass/Vol] 1.26 mg/dL 0.64-1.27 [facility] [employer] Other Glucose [Mass/Vol] 104 mg/dL 70-100 [facility] Other Potassium [Moles/Vol] 4.0 mmol/L 3.5-5.1 [facility] [employer] Other Protein [Mass/Vol] 6.8 g/dL 6.1-7.9 [facility] Other Sodium [Moles/Vol] 137 mmol/L 136-146 [facility] Other Urea nitrogen [Mass/Vol] 29 mg/dL 9-23 [facility] Other Comprehensive Metabolic Panel 58 [facility] Other Comprehensive Metabolic Panel > 60 [facility] [employer] Other Comprehensive Metabolic Panel 2.7 [facility] Other Lipid Panelon 06-12-2021 Cholesterol [Mass/Vol] 161 mg/dL 140-200 [facility] Cholesterol in HDL [Mass/Vol] 51 mg/dL 29-71 [facility] Cholesterol in LDL Elph Qn 88 0-100 [facility] Other Cholesterol.total/Cho lesterol in HDL [Mass ratio] 3.2 {ratio} <5.0 [facility] Lipid Panel 112 35-149 [facility] Other Lipid Panel 22 [facility] Thyroid Stim Hormone w/Rflxo n 06-12-2021 Thyroid Stim Hormone w/Rflx 1.39 0.45-5.33 [facility] [employer] 01-26-2021 Outside Records [id number]#1.00[facility] Outside Records [id number]#1.00[facility] Tobacco Screening.on 021 Tobacco use status [facility] b) No -[facility] [facility] [address] DO Work Phone: Outside [employer] 01-13-2021 Outside Records [id number]#1.00OTGTIFF [facility] CT Watchman Full Contraston 01-10-2021 CT Watchman Full Contrast FINAL REPORT Interpreted by: TRICIA REED MD and NANNETTE ALEJO E, MD 01/10/21 10:55 Patient Name: SANDRA POTTER STUDY: TH CT WATCHMAN FULL CONTRAST; 01/10/2021 8:49 am INDICATION: pre watchman procedure. COMPARISON: No Normal [facility] [address] [place] Work Phone: Laboratory - Chemistry and C hemistry - challengeon 01-10-2021 Glucose [Mass/Vol] 122 mg/dL above high threshold 74 - 99 [facility] [address] [place] Work Phone: [phone] No Panel Informationon 01-10 339 {SECONDS} above high threshold 89 - 169 [facility] [address] [place] Work Phone: [phone] Comment on above: Note new reference mary mullins as of 06/20/2018. Target ACT range will vary based on the patient population, clinical status, and surgical intervention occurring. [facility] [address] [place] Work Phone: [phone] [email or web address] 1:[email or web address]?R etrieveTestByDateTime?Raisa wcvBG=[id number]&Date=&Time=09%3a44%3a54%3a 00&TestType=ECG&Site=1&Out putType=PDF&Ext=PDF [facility] [address] [place] Work Phone: [phone] Atrial fibrillation with slow ventricular response [facility] [address] [place] Work Phone: [phone] Abnormal [facility] [address] [place] Work Phone: [phone] [facility] [address] [place] Work Phone: [phone] [facility] [address] [place] Work Phone: [phone] [facility] [address] [place] Work Phone: [phone] [facility] [address] [place] Work Phone: [phone] [facility] [address] [place] Work Phone: [phone] [facility] [address] [place] Work Phone: [phone] [facility] [address] [place] Work Phone: [phone] [facility] [address] [place] Work Phone: [phone] [facility] [address] [place] Work Phone: [phone] [facility] [address] [place] Work Phone: [phone] [facility] [address] [place] Work Phone: Cult,Mycobacteriaon 10-11-19 21 Cult,Mycobacteria Specimen Description .BRONCHIAL ALVEOLAR LAVAGE Special Requests .RIGHT MIDDLE LOBE Direct Exam NO ACID FAST BACILLI SEEN (CONCENTRATED SMEAR) Culture NO GROWTH 45 DAYS Report Status FINAL 10/10/2020 [facility] Comment on above: Performed By: #### A FC #### [facility] Method [address] [place] [id number] Hearth Feeder: Chi Layne MD Cult,Funguson 09-26-2020 Cult,Fungus Specimen Description .BRONCHIAL ALVEOLAR LAVAGE Special Requests .RIGHT MIDDLE LOBE Culture NO GROWTH 32 DAYS Report Status FINAL 09/26/2020 [facility] Comment on above: Performed By: #### F C #### [employer] [address] [place] [address] Hearth Feeder: Chi Layne MD Viral Respiratory Culton Viral [...] at day 5 Report Status FINAL 08/31/2020 [facility] Comment on above: Performed By: #### V RESPC #### [employer] [address] [place] [address] Hearth Feeder: Chi Layne MD Cult,Respiratoryon 06-12-202 1 Cult,Respiratory Specimen Description .BRONCHIAL ALVEOLAR LAVAGE Special Requests .RIGHT MIDDLE LOBE Direct Exam MODERATE NEUTROPHILS NO BACTERIA SEEN Culture STAPHYLOCOCCUS AUREUS <10,000 CFU/ML Susceptibility testing not performed on low colony count organisms. Report Status FINAL 08/27/2020 [facility] Comment on above: Performed By: #### R ESPC #### [employer] [address] [place] [address] [id number] Hearth Feeder: Chi Layne MD Cytology, Non-GynOrdered By: Ulisses Nieves on 08-25-2020 [facility] Phone: Specimen Description .BRONCHIAL ALVEOLAR LAVAGE [facility] Phone: Comment on above: RML [facility] Phone: [facility] ([facility] -- Diagnosis -- RIGHT MIDDLE LOBE [...] CONSULTATION Patient Name: SANDRA POTTER Med Rec: [id number] Path Number: [id number] [facility] ANATOMIC PATHOLOGY [address] [place] [id number] [facility] Comment on above: Performed By: #### P PPVS #### [employer] [address] [place] [address] [id number] Hearth Feeder: Chi Layne MD Non-Fish House Worker Cytologyon 1 Case No: [id number] Normal [facility] Comment on above: Performed By: #### N MAGAZINE WORKER #### [employer] [facility] [place], [place] [id number] Hearth Feeder: Chi Layne MD Specimen Description .BRONCHIAL ALVEOLAR LAVAGE Normal [facility] Comment on above: Result Comment: RML Performed By: #### N MAGAZINE WORKER #### [employer] [address] [place], [place] [id number] Hearth Feeder: Chi Layne MD POC Glucose FingerstickOrder ed By: Ulisses Nieves on 08-25-2020 Glucose [Mass/Vol] 121 mg/dL High 75 - 110 mg/dL [facility] Phone: Interpretation and review of laboratory results Abnormal [facility] Phone: [facility] Phone: COVID-19Ordered By: Justin reyes on 07-24-2020 SARS-CoV-2 (COVID-19) RNA EMILY+probe Ql (Unsp spec) [facility] Phone: SARS-CoV-2 (COVID-19) RNA EMILY+probe Ql (Unsp spec) Not detected Not Detected [facility] Phone: Comment on above: The specimen is NEGATIVE for SARS-CoV-2, the novel coronavirus associated with COVID-19. A negative result does not rule out COVID-19. Robbie SARS-CoV-2 for use on the Robbie [employer]8800 [employer] is a real-time RT-PCR test intended [...] this assay. Fact sheet for Healthcare Providers: https://www.fda.gov/media/035411/download Fact sheet for Patients: https://www.fda.gov/media/668819/download METHODOLOGY: RT-PCR Source .NASOPHARYNGEAL SWAB [facility] [employer] Phone: [id number] 07-24-2020 SARS-CoV-2 (COVID-19) RNA EMILY+probe Ql (Unsp spec) Normal [facility] Comment on above: Performed By: #### C OVID #### [facility] Method [facility] [place], [place] [id number] Hearth Feeder: Chi Layne MD SARS-CoV-2 (COVID-19) RNA EMILY+probe Ql (Unsp spec) Not detected Normal NOTDET [facility] Comment on above: Result Comment: The [...] this assay. Fact sheet for Healthcare Providers: https://www.fda.gov/media/630104/download Fact sheet for Patients: https://www.fda.gov/media/867580/download METHODOLOGY: RT-PCR Performed By: #### C OVID #### [facility] [address] [place] [address] Hearth Feeder: Chi Layne MD SARS-CoV-2 (COVID-19) RNA EMILY+probe Ql (Unsp spec) .NASOPHARYNGEAL SWAB Normal [facility] Comment on above: Performed By: #### C OVID #### [facility] [address] [place] [address] Hearth Feeder: Chi Layne MD [id number] 07-04-2020 SARS-CoV-2 (COVID-19) RNA EMILY+probe Ql (Unsp spec) Normal [facility] Comment on above: Performed By: #### C OVID #### [facility] [address] [place] [address] Hearth Feeder: Chi Layne MD SARS-CoV-2 (COVID-19) RNA EMILY+probe Ql (Unsp spec) Detected Abnormal NOTDET [facility] Comment on above: Result Comment: The [...] this assay. Fact sheet for Healthcare Providers: https://www.fda.gov/media/329938/download Fact sheet for Patients: https://www.fda.gov/media/913115/download METHODOLOGY: RT-PCR Results reported to the appropriate Health Department Performed By: #### C OVID #### [facility] [address] [place], [place] [phone] Hearth Feeder: Chi Layne MD [id number] 07-03-2020 SARS-CoV-2 (COVID-19) RNA EMILY+probe Ql (Unsp spec) .NASOPHARYNGEAL SWAB Normal [facility] Comment on above: Performed By: #### C OVID #### [employer] Method [address] [place], [place] [id number] Hearth Feeder: Chi Layne MD Albumin [Mass/volume] in Ser um or Plasmaon 05-04-2020 Albumin [Mass/Vol] 3.7 g/dL 3.2-5.5 [facility] Automated basophil %on 05-04 Basophils/100 WBC (Bld) 0.7 % [facility] Automated basophil counton 0 05-04-2020 Basophils (Bld) [#/Vol] 0.0 10*3/uL 0.0-0.2 [facility] Automated blood lymphocyte c ount (number/volume)on 05-04-2020 Lymphocytes (Bld) [#/Vol] 0.6 10*3/uL 1.00-4.8 [facility] Automated blood lymphocyte c ount as percentage of total leukocyteson 05-04-2020 Lymphocytes/100 WBC (Bld) 10.4 % [facility] Automated blood monocyte cou nton 05-04-2020 Monocytes (Bld) [#/Vol] 0.7 10*3/uL 0.0-0.8 [facility] Automated blood platelet cou nt (count/volume)on 05-04-2020 Platelets (Bld) [#/Vol] 175 10*3/uL 150-450 [facility] Automated blood platelet meenakshi n volume measurementon 05-04-2020 Platelet mean volume (Bld) [Entitic vol] 8.1 fL 6.6-10.1 [facility] Automated eosinophil %on Eosinophils/100 WBC (Bld) 3.7 % [facility] Automated eosinophil counton 05-04-2020 Eosinophils (Bld) [#/Vol] 0.2 10*3/uL 0.0-0.45 [facility] Automated erythrocyte distri bution width ratioon 05-04-2020 Erythrocyte distribution width (RBC) [Ratio] 16.3 % 12.0-14.8 [facility] Automated erythrocyte mean c orpuscular hemoglobin (mass per erythrocyte)on 05-04-2020 MCH (RBC) [Entitic mass] 29.3 pg 27.5-35.2 [facility] Automated erythrocyte mean c orpuscular hemoglobin concentration measurement (mass/volon 05-04-2020 MCHC (RBC) [Mass/Vol] 33.2 g/dL 32.5-35.6 [facility] Automated erythrocyte mean c orpuscular volumeon 05-04-2020 MCV (RBC) [Entitic vol] 88.0 fL 83.5-101 [facility] Automated monocyte %on 05-04 Monocytes/100 WBC (Bld) 12.1 % [facility] Automated neutrophil %on Neutrophils/100 WBC (Bld) 73.1 % [facility] Blood erythrocytes automated count (number/volume)on 05-04-2020 RBC (Bld) [#/Vol] 4.85 10*6/uL 3.90-5.60 [facility] Blood hemoglobin measurement (mass/volume)on 05-04-2020 Hemoglobin (Bld) [Mass/Vol] 14.2 g/dL 13.0-17.0 [facility] Blood leukocytes automated c ount (number/volume)on 05-04-2020 WBC (Bld) [#/Vol] 6.2 10*3/uL 4.5-11.0 [facility] Blood neutrophil count by au tomated method (number/volume)on 05-04-2020 Neutrophils (Bld) [#/Vol] 4.5 10*3/uL 1.8-7.7 [facility] Estimated glomerular filtrat ion rate (GFR) non- Americanon 05-04-2020 GFR/1.73 sq M predicted among non-blacks MDRD (S/P/Bld) [Vol rate/Area] 47 mL/min/{1.73_m2} [facility] Hematocrit [Volume Fraction] of Blood by Automated counton 05-04-2020 Hematocrit (Bld) [Volume fraction] 42.7 % 38.8-50.0 [facility] Otheron 05-04-2020 GFR/1.73 sq M.predicted MDRD (S/P/Bld) [Vol rate/Area] 57 mL/min/{1.73_m2} [facility] Comment on above: GFR estimated refere nce range: According to KDOQI guidelines, <60 ml/min/1.73m2 is sufficient to diagnose a patient with chronic kidney disease. Nucleated RBC/100 WBC (Bld) [Ratio] 0.0 % 0-0.5 [facility] Creatinine Clearance (Chem 68.68 [facility] Protein [Mass/volume] in Ser um or Plasmaon 05-04-2020 Protein [Mass/Vol] 6.5 g/dL 6.1-7.9 [facility] Serum globulin measurement b y calculation (mass/volume)on 05-04-2020 Globulin (S) [Mass/Vol] 2.8 g/dL [facility] Serum or plasma alanine bartholomew otransferase measurement without P-5'-P (enzymatic activion 05-04-2020 ALT No additional P-5'-P [Catalytic activity/Vol] 19 U/L 10-60 [facility] Serum or plasma albumin/glob ulin mass ratioon 05-04-2020 Albumin/Globulin [Mass ratio] 1.3 {ratio} [facility] Serum or plasma alkaline dorothea sphatase measurement (enzymatic activity/volume)on 05-04-2020 ALP [Catalytic activity/Vol] 92 U/L 32-92 [facility] Serum or plasma aspartate am inotransferase measurement (enzymatic activity/volume)on 05-04-2020 AST [Catalytic activity/Vol] 24 U/L 10-42 [facility] Serum or plasma calcium victor m urement (mass/volume)on 05-04-2020 Calcium [Mass/Vol] 10.5 mg/dL 8.2-10.2 [facility] Serum or plasma chloride meenakshi surement (moles/volume)on 05-04-2020 Chloride [Moles/Vol] 104 mmol/L 95-114 [facility] Serum or plasma creatinine m easurement with calculation of estimated glomerular filtron 05-04-2020 Creatinine [Mass/Vol] 1.50 mg/dL 0.64-1.27 [facility] Serum or plasma glucose victor m urement (mass/volume)on 05-04-2020 Glucose [Mass/Vol] 119 mg/dL 70-100 [facility] Comment on above: ADA recommended refe rence rangeRandom Glucose Reference Range is dependent on time and content of last meal. Glucose of more than 200 mg/dL in a nonstressed, ambulatory subject supports the diagnosis of Diabetes Mellitus. Serum or plasma potassium me asurement (moles/volume)on 05-04-2020 Potassium [Moles/Vol] 5.3 mmol/L 3.5-5.1 [facility] Serum or plasma sodium measu rement (moles/volume)on 05-04-2020 Sodium [Moles/Vol] 139 mmol/L 136-146 [facility] Serum or plasma total biliru bin measurement (mass/volume)on 05-04-2020 Bilirubin [Mass/Vol] 0.9 mg/dL 0.3-1.2 [facility] Serum or plasma total carbon dioxide measurement (moles/volume)on 05-04-2020 CO2 [Moles/Vol] 27.8 mmol/L 22.0-30.[address] [facility] Serum or plasma urea nitroge n measurement (mass/volume)on 05-04-2020 Urea nitrogen [Mass/Vol] 26 mg/dL 9-23 [facility] 25-hydroxyvitamin D [Mass/Vo l]on 11-20-2019 25-Hydroxyvitamin D2+25-Hydroxyvitamin D3 [Mass/Vol] 57 ng/mL . [facility] Comment on above: Reference Range:All Ages: Target levels 30 - 100 Reference Range: All Ages: Target levels 30 - 100 25-hydroxyvitamin D2 [Mass/V ol]on 11-20-2019 25-Hydroxycalciferol [Mass/Vol] <1.0 ng/mL . [facility] Comment on above: This test was develo ped and its performance characteristicsdetermined by [employer]. It has not been cleared or approvedby the Food and Drug Administration. This test was develo ped and its performance characteristics determined by [employer]. It has not been cleared or approved by the Food and Drug Administration. 25-hydroxyvitamin D3 [Mass/V ol]on 11-20-2019 Calcidiol [Mass/Vol] 57 ng/mL . [facility] Comment on above: This test was develo ped and its performance characteristicsdetermined by [facility]. It has not been cleared or approvedby the Food and Drug Administration.Performed at: [employer] [address] [place], [place] [id number] Director: Prasanna Damian MD, Phone: [phone] This test was develo ped and its performance characteristics determined by [facility]. It has not been cleared or approved by the Food and Drug Administration. Performed at: [employer] [address] [place], [place] [id number] Hearth Feeder: Prasanna Damian MD, Phone: [phone] IgA [Mass/volume] in Serum o r Plasmaon 11-20-2019 IgA [Mass/Vol] 337 mg/dL 61-437 [facility] IgG [Mass/volume] in Serum o r Plasmaon 11-20-2019 IgG [Mass/Vol] 1002 mg/dL [phone] [facility] IgM [Mass/volume] in Serum o r Plasmaon 11-20-2019 IgM [Mass/Vol] 55 mg/dL 20-172 [facility] Comment on above: Performed at: [employer] [address] [id number] Director: Mauro Sharma PhD, Phone: [phone] Performed at: [employer] [address] [place], [place] [id number] Hearth Feeder: Mauro Sharma PhD, Phone: [phone] Immunoglobulin light chains. kappa.free [Mass/volume] in Serumon 11-20-2019 Immunoglobulin light chains.kappa.free (S) [Mass/Vol] 26.1 mg/L 3.3-19.4 [facility] Immunoglobulin light chains. kappa.free/Immunoglobulin light chains.lambda.free [Teddy 11-20-2019 Immunoglobulin light chains.kappa.free/Imm unoglobulin light chains.lambda.free (S) [Mass ratio] 1.09 0.26-1.65 [facility] Comment on above: Performed at: [facility] [employer] [id number] [place], [place] [id number] Director: Mauro Sharma PhD, Phone: [phone] Performed at: [employer] [place] [address] [place], [place] [id number] Hearth Feeder: Mauro Sharma PhD, Phone: [phone] Immunoglobulin light chains. lambda.free [Mass/volume] in Serum or Plasmaon 11-20-2019 Immunoglobulin light chains.lambda.free [Mass/Vol] 24.0 mg/L 5.7-26.3 [facility] Otheron 11-20-2019 Serum Immunofixation Comment: . [facility] Comment on above: Presence of monoclon al protein is unclear at this time. Suggestrepeat in 3 to 6 months if clinically indicated. Presence of monoclon al protein is unclear at this time. Suggest repeat in 3 to 6 months if clinically indicated. Serum or plasma intact parat hyroid hormone measurement (mass/volume)on 11-20-2019 Parathyrin.intact [Mass/Vol] 35.4 pg/mL [facility] Hematologyon 11-10-2019 WBC (Bld) [#/Vol] 6.2 10*3/uL 4.5-11.[address] [facility] [address] CHEST HIGH RESOLUTIONOrde red By: [...] 03/30/2019to be communicated to a licensed caregiver. [facility] Phone: EXAMINATION: CT IMAG ES OF THE [...] inferior aspect of the right bony glenoid. [facility] Phone: César, Mhpn Incoming R adiant Results From [employer] - 03/30/2019 9:12 PM EST EXAMINATION: CT [...] 03/30/2019to be communicated to a licensed caregiver. [facility] Phone: XR CHEST STANDARD (2 VW)Orde red By: Alfonso Wesley on 03-30-2019 No focal airspace consolidation or edema. [facility] Phone: EXAMINATION: TWO XRA Y VIEWS OF THE CHEST 03/30/2019 9:53 am COMPARISON: 04/25/2006 HISTORY: ORDERING SYSTEM PROVIDED HISTORY: SOB (shortness of breath) TECHNOLOGIST PROVIDED HISTORY: Reason for Exam: SOB (shortness of breath) R06.02 (ICD-10-CM); Hemoptysis R04.2 (ICD-10-CM) FINDINGS: The lungs are without acute focal process. No effusion or pneumothorax. The cardiomediastinal silhouette is normal. The osseous structures are intact without acute process. [facility] Phone: César, Mhpn Incoming R adiant Results From [facility] [employer] - 03/30/2019 10:12 AM EST EXAMINATION: TWO [...] IMPRESSION: No focal airspace consolidation or edema. [facility] Phone: Lactate dehydrogenase measur ement (enzymatic activity/volume)on 01-24-2019 LDH (Unsp spec) [Catalytic activity/Vol] 178 U/L 45-190 [facility] Serum or plasma thyroid stim ulating hormone (TSH) measurement by high sensitivity meton 01-31-2018 TSH Qn 4.94 u[iU]/mL 0.45-5.33 [facility] TSH DL <= 0.005 mIU/L Qnon 1 04-02-2017 TSH Qn 4.94 m[IU]/L 0.45-5.33 [facility] Basic Metabolic Panelon 09-15 Anion gap 10 mmol/L Normal 10-20 [facility] Healthcare Comment on above: Performed By: #### 1 [id number] ####[facility] [address] [facility] [place] [address] Bicarbonate (HCO3) 30 mmol/L Normal 21-32 [facility] Healthcare Comment on above: Performed By: #### 1 [id number] ####[facility] [address]uc[address] [place] [address] BUN/Creatinine Ratio 22 mg/mg Normal 5-25 [facility] Healthcare Comment on above: Performed By: #### 1 [id number] ####[facility] [address] [place] [address] Calcium 9.6 mg/dL Normal 8.6-10.3 [facility] Comment on above: Performed By: #### 1 [id number] ####[facility] [address] [facility] [place] [address] Chloride 108 mmol/L High 98-107 [facility] Healthcare Comment on above: Performed By: #### 1 [id number] ####[facility] [address] [place] [address] Creatinine 1.60 mg/dL High 0.50-1.30 [facility] Comment on above: Performed By: #### 1 [id number] ####[facility] [address] [place] [address] eGFR (MDRD) 44 mL/min/{1.73_m2} Normal [facility] Comment on above: Result Comment: Inte rpretation for Chronic Kidney Disease:Stages 1&2 >60 Healthy or potential kidney damage.Mild decrease of GFR.Stage 3 30-59 Moderate decrease of GFR.Stage 4 15-29 Severe decrease of GFR.Stage 5 <15 Kidney failure or on dialysis. Performed By: #### 1 [id number] ####[facility] [address] [place] [address] Glucose mass conc 141 mg/dL High 70-100 [facility] Comment on above: Performed By: #### 1 [id number] ####[facility] [address] [place] [address] Potassium molar conc 4.7 mmol/L Normal 3.5-5.1 [facility] Comment on above: Performed By: #### 1 [id number] ####[facility] [address] [place] [address] Sodium 143 mmol/L Normal 136-145 [facility] Comment on above: Performed By: #### 1 [id number] ####[facility] [address] [place] [address] Urea nitrogen 36 mg/dL High 6-23 [facility] Comment on above: Performed By: #### 1 [id number] ####[facility] [address] [place] [address] Prothrombin Timeon 8 INR Coag RelTime (PPP) 1.68 {INR} High 0.90-1.10 [facility] Comment on above: Result Comment: NATHAN DOE NOTE NEW REFERENCE RANGE EFFECTIVE 2017 Performed By: #### 3 [id number] ####[facility] [address] [place] [address] Prothrombin time (PT) Coag time (PPP) 18.7 s High 9.8-12.7 [facility] Healthcare Comment on above: Result Comment: NATHAN DOE NOTE NEW REFERENCE RANGE EFFECTIVE 2017 Performed By: #### 3 [id number] ####[facility] [address] [place] [address] Basic Metabolic Panelon 07-0 Anion gap 14 mmol/L Normal 10-20 [facility] Comment on above: Performed By: #### 1 [id number] ####[facility] [address] [place] [address] Bicarbonate (HCO3) 32 mmol/L Normal 21-32 [facility] Comment on above: Performed By: #### 1 [id number] ####[facility] [address] [facility] [place] [address] BUN/Creatinine Ratio 20 mg/mg Normal 5-25 [facility] Comment on above: Performed By: #### 1 [id number] ####[facility] [address] [facility] [place] [address] Calcium 9.7 mg/dL Normal 8.6-10.3 [facility] Comment on above: Performed By: #### 1 100329 ####[facility] [address] [place] [address] Chloride 102 mmol/L Normal 98-107 [facility] Comment on above: Performed By: #### 1 [id number] ####[facility] [address] [facility] [place] [address] Creatinine 1.73 mg/dL High 0.50-1.30 [facility] Comment on above: Performed By: #### [id number] ####[facility] [address] [place] [address] eGFR (MDRD) 40 mL/min/{1.73_m2} Normal [facility] Healthcare Comment on above: Result Comment: Inte rpretation for Chronic Kidney Disease:Stages 1&2 >60 Healthy or potential kidney damage.Mild decrease of GFR.Stage 3 30-59 Moderate decrease of GFR.Stage 4 15-29 Severe decrease of GFR.Stage 5 <15 Kidney failure or on dialysis. Performed By: #### 1 [id number] ####[facility] [address] [place] [address] Glucose mass conc 104 mg/dL High 70-100 [facility] Healthcare Comment on above: Performed By: #### 1 105122 ####[facility] [address] [facility] [place] [address] Potassium molar conc 3.4 mmol/L Low 3.5-5.1 [facility] Comment on above: Performed By: #### 1 742134 ####[facility] [address] [facility] [place] [address] Sodium 145 mmol/L Normal 136-145 [facility] Comment on above: Performed By: #### 1 185386 ####[facility] [address] [facility] [place] [address] Urea nitrogen 34 mg/dL High 6-23 [facility] Comment on above: Performed By: #### 1 [id number] ####[facility] [address] [facility] [place] [address] Prothrombin Timeon 8 INR Coag RelTime (PPP) 1.32 {INR} High 0.90-1.10 [facility] Comment on above: Result Comment: NATHAN DOE NOTE NEW REFERENCE RANGE EFFECTIVE 2017 Performed By: #### 3 [id number] ####[facility] [address] [place] [address] Prothrombin time (PT) Coag time (PPP) 14.7 s High 9.8-12.7 [facility] Healthcare Comment on above: Result Comment: NATHAN DOE NOTE NEW REFERENCE RANGE EFFECTIVE 2017 Performed By: #### 3 [id number] ####[facility] [address] [place] [address] Basic Metabolic Panelon 09-0 Anion gap 13 mmol/L Normal 10-20 [facility] Healthcare Comment on above: Performed By: #### 1 [id number] ####[facility] [address] [place] [address] Bicarbonate (HCO3) 31 mmol/L Normal 21-32 [facility] Healthcare Comment on above: Performed By: #### 1 440396 ####[facility] [address] [place] [address] BUN/Creatinine Ratio 20 mg/mg Normal 5-25 [facility] Healthcare Comment on above: Performed By: #### 1 [id number] ####[facility] [address] [place] [address] Calcium 9.7 mg/dL Normal 8.6-10.3 [facility] Comment on above: Performed By: #### 1 [id number] ####[facility] [address] [place] [address] Chloride 102 mmol/L Normal 98-107 [facility] Comment on above: Performed By: #### 1 [id number] ####[facility] [address] [place] [address] Creatinine 1.79 mg/dL High 0.50-1.30 [facility] Comment on above: Performed By: #### 1 [id number] ####[facility] [address] [place] [address] eGFR (MDRD) 39 mL/min/{1.73_m2} Normal [facility] Comment on above: Result Comment: Inte rpretation for Chronic Kidney Disease:Stages 1&2 >60 Healthy or potential kidney damage.Mild decrease of GFR.Stage 3 30-59 Moderate decrease of GFR.Stage 4 15-29 Severe decrease of GFR.Stage 5 <15 Kidney failure or on dialysis. Performed By: #### 1 [id number] ####[facility] [address] [place] [address] Glucose mass conc 138 mg/dL High 70-100 [facility] Comment on above: Performed By: #### 1 [id number] ####[facility] [address] [place] [address] Potassium molar conc 3.7 mmol/L Normal 3.5-5.1 [facility] Comment on above: Performed By: #### 1 [id number] ####[facility] [address] [place] [address] Sodium 142 mmol/L Normal 136-145 [facility] Comment on above: Performed By: #### 1 [id number] ####[facility] [address] [place] [address] Urea nitrogen 36 mg/dL High 6-23 [facility] Comment on above: Performed By: #### 1 [id number] ####[facility] [address] [place] [address] Prothrombin Timeon 7 INR Coag RelTime (PPP) 1.58 {INR} High 0.85-1.16 [facility] Comment on above: Result Comment: Coum geovanny Therapy:1.5 - 2.0 Low Intensity Therapy2.0 - 3.0 Moderate Intensity Therapy2.5 - 3.5 High (1) Intensity Therapy3.0 - 4.0 High (2) Intensity Therapy Performed By: #### 3 [id number] ####[facility] [address] [place] [address] Prothrombin time (PT) Coag time (PPP) 18.9 s High 11.3-14.5 [facility] Healthcare Comment on above: Performed By: #### 3 [id number] ####[facility] [address] [place] [address] CBCon 11-07-2016 Erythrocyte distribution width Auto Ratio (RBC) 15.0 % Normal 12.0-15.4 [facility] Healthcare Comment on above: Performed By: #### 2 [id number] ####[facility] [address] [place] [address] Erythrocytes (RBC) 4.77 10*6/uL Normal 4.08-6.37 [facility] Healthcare Comment on above: Performed By: #### 2 [id number] ####[facility] [address] [place] [address] Hematocrit (HCT) 43.9 % Normal 38.4-54.9 [facility] Healthcare Comment on above: Performed By: #### 2 [id number] ####[facility] [address] [place] [address] Hemoglobin mass conc (Bld) 14.9 g/dL Normal 12.8-17.7 [facility] Healthcare Comment on above: Performed By: #### 2 [id number] ####[facility] [address] [place] [address] MCH 31.2 pg Normal 27.5-32.9 [facility] Healthcare Comment on above: Performed By: #### 2 [id number] ####[facility] [address] [place] [address] MCHC mass conc (RBC) 33.9 g/dL Normal 30.5-35.4 [facility] Healthcare Comment on above: Performed By: #### 2 [id number] ####[facility] [address] [place] [address] MCV 92.0 fL Normal 83.3-98.2 [facility] Healthcare Comment on above: Performed By: #### 2 [id number] ####[facility] [address] [place] [address] NRBC Absolute 0.00 10*3/uL Normal [facility] Healthcare Comment on above: Performed By: #### 2 [id number] ####[facility] [address] Former[facility] [place] [address] NRBC Automated 0.0 /100{WBCs} Normal [facility] Healthcare Comment on above: Performed By: #### 2 [id number] ####[facility] [address] [facility] [place] [address] Platelet mean volume (PMV) 9.8 fL Low 9.9-12.1 [facility] Healthcare Comment on above: Performed By: #### 2 [id number] ####[facility] [address] [facility] [place] [address] Platelets 197 10*3/uL Normal 155-404 [facility] Healthcare Comment on above: Performed By: #### 2 [id number] ####[facility] [address] [facility] [place] [address] RDW SD 50.7 fL High 39.3-48.6 [facility] Healthcare Comment on above: Performed By: #### 2 [id number] ####[facility] [address] [facility] [place] [address] WBC (Leukocytes) 5.2 10*3/uL Normal 4.2-11.0 [facility] Healthcare Comment on above: Performed By: #### 2 [id number] ####[facility] [address] [facility] [place] [address] Comprehensive Metabolic Pane [facility] 11-07-2016 Alanine aminotransferase (ALT) 30 U/L Normal 10-52 [facility] Healthcare Comment on above: Performed By: #### 1 [id number] ####[facility] [address] [facility] [place] [address] Albumin 4.5 g/dL Normal 3.4-5.0 [facility] Healthcare Comment on above: Performed By: #### 1 [id number] ####[facility] [address] [facility] [place] [address] Albumin/Globulin Ratio 1.5 {ratio} Normal 0.9-2.4 [facility] Healthcare Comment on above: Performed By: #### 1 [id number] ####[facility] [address] [facility] [place] [address] Alkaline phosphatase (ALP) 92 U/L Normal 45-117 [facility] Comment on above: Performed By: #### 1 [id number] ####[facility] [address] [place] [address] Anion gap 12 mmol/L Normal 10-20 [facility] Comment on above: Performed By: #### 1 [id number] ####[facility] [address] [place] [address] Aspartate aminotransferase (AST) 33 U/L Normal 13-39 [facility] Comment on above: Performed By: #### 1 [id number] ####[facility] [address] [place] [address] Bicarbonate (HCO3) 33 mmol/L High 21-32 [facility] Comment on above: Performed By: #### 1 [id number] ####[facility] [address] [place] [address] Bilirubin (total) 1.2 mg/dL Normal 0.0-1.2 [facility] Comment on above: Performed By: #### 1 [id number] ####[facility] [address] [place] [address] BUN/Creatinine Ratio 26 mg/mg High 5-25 [facility] Comment on above: Performed By: #### 1 [id number] ####[facility] [address] [place] [address] Calcium 10.2 mg/dL Normal 8.6-10.3 [facility] Comment on above: Performed By: #### 1 [id number] ####[facility] [address] [place] [address] Chloride 100 mmol/L Normal 98-107 [facility] Comment on above: Performed By: #### 1 [id number] ####[facility] [address] [place] [address] Creatinine 1.76 mg/dL High 0.50-1.30 [facility] Comment on above: Performed By: #### 1 [id number] ####[facility] [address] [place] [address] eGFR (MDRD) 40 mL/min/{1.73_m2} Normal [facility] Comment on above: Result Comment: Inte rpretation for Chronic Kidney Disease:Stages 1&2 >60 Healthy or potential kidney damage.Mild decrease of GFR.Stage 3 30-59 Moderate decrease of GFR.Stage 4 15-29 Severe decrease of GFR.Stage 5 <15 Kidney failure or on dialysis. Performed By: #### 1 [id number] ####[facility] [address] [facility] [place] [address] Glucose mass conc 139 mg/dL High 70-100 [facility] Comment on above: Performed By: #### 1 [id number] ####[facility] [address] [place] [address] Potassium molar conc 3.2 mmol/L Low 3.5-5.1 [facility] Comment on above: Performed By: #### 1 [id number] ####[facility] [address] [place] [address] Protein 7.6 g/dL Normal 6.4-8.2 [facility] Comment on above: Performed By: #### 1 [id number] ####[facility] [address] [place] [address] Sodium 142 mmol/L Normal 136-145 [facility] Comment on above: Performed By: #### 1 [id number] ####[facility] [address] [place] [address] Urea nitrogen 46 mg/dL High 6-23 [facility] Comment on above: Performed By: #### 1 [id number] ####[facility] [address] [facility] [place] [address] Lipid Panelon 11-07-2016 Cholesterol 169 mg/dL Normal <200 [facility] Comment on above: Performed By: #### 1 [id number] ####[facility] [address] [facility] [place] [address] Cholesterol in VLDL mass conc 30 mg/dL Abnormal <30 [facility] Comment on above: Performed By: #### 1 [id number] ####[facility] [address] [facility] [place] [address] Cholesterol to HDL Ratio 3.1 {ratio} Normal [facility] Healthcare Comment on above: Performed By: #### 1 [id number] ####[facility] [address] [place] [address] HDL Cholesterol 55 mg/dL Normal [facility] Healthcare Comment on above: Result Comment: Norm al Mod Risk High Risk5-9 >48 42-48 <4210- 14 >45 40-45 <4015-19 >38 34-38 <34Adult >39 Performed By: #### 1 [id number] ####[facility] [address] [place] [address] LDL Cholesterol 84 mg/dL Normal <130 [facility] Healthcare Comment on above: Performed By: #### 1 [id number] ####[facility] [address] [place] [address] Triglyceride 152 mg/dL Abnormal <150 [facility] Healthcare Comment on above: Result Comment: 150- 199 Borderline [id number] High>500 Very High Performed By: #### 1 [id number] ####[facility] [address] [facility] [place] [address] Vital Signs Date Time Vital Sign Value [...] Body height 180.34 cm Mina Reilly Other [facility] Other 04-18-2023 16:00-0500 Body mass index (BMI) [Ratio] 35.53 kg/m2 Mina Reilly Other [facility] Other 04-18-2023 16:00-0500 Body temperature 97.4 [degF] Mina Reilly Other [facility] Other 04-18-2023 16:00-0500 Body weight 115.58 kg Mina Reilly Other [facility] Other 04-18-2023 16:00-0500 Diastolic blood pressure 92 mm[Hg] Mina Reilly Other [facility] Other 04-18-2023 16:00-0500 Respiratory rate 18 /min Mina Reilly Other [facility] Other 04-18-2023 16:00-0500 SaO2% (BldA) [Mass fraction] 96 % Mina Reilly Other [facility] Other 04-18-2023 16:00-0500 Systolic blood pressure 155 mm[Hg] Mina Reilly Other [facility] Other 04-17-2023 10:42-0500 Body height 180.3 cm Viridiana Burgess DO Work Phone: [facility] 04-17-2023 10:42-0500 Body mass index (BMI) [Ratio] 35.43 kg/m2 Viridiana Burgess DO Work Phone: [facility] 04-17-2023 10:42-0500 Body weight 115.21 kg Viridiana Burgess DO Work Phone: [facility] 04-17-2023 10:42-0500 Diastolic blood pressure 80 mm[Hg] Viridiana Burgess DO Work Phone: [facility] 04-17-2023 10:42-0500 Heart rate 77 /min Viridiana Burgess DO Work Phone: [facility] 04-17-2023 10:42-0500 Systolic blood pressure 132 mm[Hg] Viridiana Burgess DO Work Phone: [facility] 04-04-2023 11:30-0500 Body height 180.34 cm Geeta Dumont Other [facility] Other 04-04-2023 11:30-0500 Body mass index (BMI) [Ratio] 35.84 kg/m2 Geeta Dumont Other [facility] Other 04-04-2023 11:30-0500 Body weight 116.58 kg Geeta Dumont Other [facility] Other 04-04-2023 11:30-0500 Diastolic blood pressure 88 mm[Hg] Geeta Dumont Other [facility] Other 04-04-2023 11:30-0500 Systolic blood pressure 140 mm[Hg] Geeta Dumont Other [facility] Other 03-20-2023 13:00-0500 Body height 180.34 cm Geeta Dumont Other [facility] Other 03-20-2023 13:00-0500 Body mass index (BMI) [Ratio] 35.98 kg/m2 Geeta Dumont Other [facility] Other 03-20-2023 13:00-0500 Body weight 117.03 kg Geeta Ernandezr Other [facility] Other 03-20-2023 13:00-0500 Diastolic blood pressure 86 mm[Hg] Geeta Awaisr Other [facility] Other 03-20-2023 13:00-0500 SaO2% (BldA) [Mass fraction] 100 % Geeta Awaisr Other [facility] Other 03-20-2023 13:00-0500 Systolic blood pressure 144 mm[Hg] Geeta Derekacher Other [facility] Other 03-05-2023 11:30-0500 Body height 180.34 cm Geeta Carringtonritabrynr Other [facility] Other 03-05-2023 11:30-0500 Body mass index (BMI) [Ratio] 34.86 kg/m2 Geeta Carringtonjuan ramonr Other [facility] Other 03-05-2023 11:30-0500 Body weight 113.4 kg Geeta Awaisr Other [facility] Other 03-05-2023 11:30-0500 Diastolic blood pressure 84 mm[Hg] Geeta Carringtonritaacher Other [facility] Other 03-05-2023 11:30-0500 SaO2% (BldA) [Mass fraction] 99 % Geeta Awaisr Other [facility] Other 03-05-2023 11:30-0500 Systolic blood pressure 150 mm[Hg] Geeta Tim Other [facility] Other 02-26-2023 11:48-0500 Body height 180.34 cm DO Teri Cedillocki Work Phone: [facility] 02-26-2023 11:48-0500 Body mass index (BMI) [Ratio] 34 kg/m2 DO Teri Cedillocki Work Phone: [facility] 02-26-2023 11:48-0500 Body weight 110.67 kg DO Teri Cedillocki Work Phone: [facility] 02-26-2023 11:27-0500 Body temperature 97.5 [degF] DO Teri Cedillocki Work Phone: [facility] 02-26-2023 11:27-0500 Diastolic blood pressure 94 mm[Hg] DO Teri Cedillocki Work Phone: [facility] 02-26-2023 11:27-0500 Heart rate 82 /min DO Teri Cedillocki Work Phone: [facility] 02-26-2023 11:27-0500 Respiratory rate 20 /min DO Teri Cedillocki Work Phone: [facility] 02-26-2023 11:27-0500 Systolic blood pressure 187 mm[Hg] DO Teri Cedillocki Work Phone: [facility] 02-21-2023 16:20-0500 Body height 180.34 cm Mina Reilly Other [facility] Other 02-21-2023 16:20-0500 Body mass index (BMI) [Ratio] 34.75 kg/m2 Mina Reilly Other [facility] Other 02-21-2023 16:20-0500 Body temperature 96.2 [degF] Mina Reilly Other [facility] Other 02-21-2023 16:20-0500 Body weight 113.04 kg Mina Reilly Other [facility] Other 02-21-2023 16:20-0500 Diastolic blood pressure 68 mm[Hg] Mina Reilly Other [facility] Other 02-21-2023 16:20-0500 Respiratory rate 18 /min Mina Reilly Other [facility] Other 02-21-2023 16:20-0500 SaO2% (BldA) [Mass fraction] 98 % Mina Reilly Other [facility] Other 02-21-2023 16:20-0500 Systolic blood pressure 109 mm[Hg] Mina Reilly Other [facility] Other 02-18-2023 09:00-0500 Body height 180.34 cm Ingris Lombardo Other [facility] Other 02-18-2023 09:00-0500 Body mass index (BMI) [Ratio] 34.17 kg/m2 Ingrisnaveed Lombardo Other [facility] Other 02-18-2023 09:00-0500 Body weight 111.13 kg Ingris Lombardo Other [facility] Other 02-18-2023 09:00-0500 Diastolic blood pressure 82 mm[Hg] Ingris Lombardo Other [facility] Other 02-18-2023 09:00-0500 SaO2% (BldA) [Mass fraction] 96 % Ingris Lombardo Other [facility] Other 02-18-2023 09:00-0500 Systolic blood pressure 132 mm[Hg] Ingris Lombardo Other [facility] Other 02-15-2023 12:00-0500 Diastolic blood pressure 87 mm[Hg] DO Teri Aragon Work Phone: [facility] 02-15-2023 12:00-0500 Heart rate 77 /min DO Teri Harperi Work Phone: [facility] 02-15-2023 12:00-0500 Respiratory rate 18 /min DO Teri Aragon Work Phone: [facility] 02-15-2023 12:00-0500 SaO2% (BldA) [Mass fraction] 98 % DO Teri Harperi Work Phone: [facility] 02-15-2023 12:00-0500 Systolic blood pressure 152 mm[Hg] DO Teri Harperi Work Phone: [facility] 02-15-2023 08:00-0500 Body temperature 98.5 [degF] DO Teri Harperi Work Phone: [facility] 02-14-2023 21:00-0500 Inhaled oxygen flow rate 6 L/min DO Teri Cedillocki Work Phone: [facility] 02-14-2023 13:47-0500 Body height 181.61 cm DO Teri Cedillocki Work Phone: [facility] 02-14-2023 13:47-0500 Body mass index (BMI) [Ratio] 33.6 kg/m2 DO Teri Aragon Work Phone: [facility] 02-14-2023 13:47-0500 Body weight 111 kg DO Teri Aragon Work Phone: [facility] 02-10-2023 12:33-0500 Diastolic blood pressure 75 mm[Hg] [facility] 02-10-2023 12:33-0500 Heart rate 75 /min [facility] 02-10-2023 12:33-0500 Respiratory rate 16 /min [facility] 02-10-2023 12:33-0500 SaO2% (BldA) [Mass fraction] 98 % [facility] 02-10-2023 12:33-0500 Systolic blood pressure 138 mm[Hg] [facility] 02-10-2023 08:00-0500 Body temperature 98 [degF] [facility] 02-10-2023 06:00-0500 Body weight 110 kg [facility] 02-08-2023 15:35-0500 Body height 180.34 cm [facility] 02-06-2023 20:00-0500 Diastolic blood pressure 76 mm[Hg] [facility] 02-06-2023 20:00-0500 Heart rate 35 /min [facility] 02-06-2023 20:00-0500 Respiratory rate 16 /min [facility] 02-06-2023 20:00-0500 SaO2% (BldA) [Mass fraction] 98 % [facility] 02-06-2023 20:00-0500 Systolic blood pressure 139 mm[Hg] [facility] 02-06-2023 17:31-0500 Body height 180.34 cm [facility] 02-06-2023 17:31-0500 Body weight 117.2 kg [facility] 02-06-2023 12:32-0500 Body temperature 97 [degF] [facility] 11-27-2022 14:33-0400 Body temperature 97.9 [degF] [employer] SALES ENGINEERMelecio Dumont Work Phone: [facility] 11-27-2022 14:33-0400 Body weight 113.39 kg [employer] SALES ENGINEERMelecio Ernandezr Work Phone: [facility] 11-27-2022 14:33-0400 Diastolic blood pressure 75 mm[Hg] [employer] SALES ENGINEERMelecio Dumont Work Phone: [facility] 11-27-2022 14:33-0400 Heart rate 67 /min [employer] SALES ENGINEERMelecio Ernandezr Work Phone: [facility] 11-27-2022 14:33-0400 Respiratory rate 16 /min [employer] SALES ENGINEERMelecio Reedacher Work Phone: [facility] 11-27-2022 14:33-0400 SaO2% (BldA) [Mass fraction] 100 % [employer] SALES ENGINEERMelecio Dumont Work Phone: [facility] 11-27-2022 14:33-0400 Systolic blood pressure 144 mm[Hg] [employer] SALES ENGINEERMelecio Ernandezr Work Phone: [facility] 10-11-2022 14:00-0400 Body height 180.34 cm Geeta Tim Other [facility] Other 10-11-2022 14:00-0400 Body mass index (BMI) [Ratio] 34.31 kg/m2 Geeta Tim Other [facility] Other 10-11-2022 14:00-0400 Body weight 111.59 kg Geeta Tim Other [facility] Other 10-11-2022 14:00-0400 Diastolic blood pressure 82 mm[Hg] Geeta Dumont Other [facility] Other 10-11-2022 14:00-0400 SaO2% (BldA) [Mass fraction] 97 % Geeta Dumont Other [facility] Other 10-11-2022 14:00-0400 Systolic blood pressure 132 mm[Hg] Geeta Dumont Other [facility] Other 09-28-2022 06:55-0400 Body height 182.88 cm [employer] Geeta Tim Work Phone: [facility] 09-28-2022 06:55-0400 Body weight 108.86 kg [employer] Geeta Derekachemary Work Phone: [facility] 09-12-2022 09:00-0400 Body height 180.34 cm Geeta Dumont Other [facility] Other 09-12-2022 09:00-0400 Body mass index (BMI) [Ratio] 35.56 kg/m2 Geeta Dumont Other [facility] Other 09-12-2022 09:00-0400 Body weight 115.67 kg Geeta Dumont Other [facility] Other 09-12-2022 09:00-0400 Diastolic blood pressure 70 mm[Hg] Geeta Dumont Other [facility] Other 09-12-2022 09:00-0400 SaO2% (BldA) [Mass fraction] 97 % Geeta Dumont Other [facility] Other 09-12-2022 09:00-0400 Systolic blood pressure 124 mm[Hg] Geeta Tim Other [facility] Other 09-07-2022 09:27-0400 Body height 180.34 cm Teri Aragon Work Phone: [facility] [address] DO Work Phone: 09-07-2022 09:27-0400 Body mass index (BMI) [Ratio] 35.64 kg/m2 Teri Aragon Work Phone: [facility] [address] DO Work Phone: 09-07-2022 09:27-0400 Body surface area Derived from formula 2.34 m2 Teri Contreras Netoalirio Work Phone: [facility] [address] DO Work Phone: 09-07-2022 09:27-0400 Body weight 115.89 kg Teri Aragon Work Phone: [facility] [address] DO Work Phone: 09-07-2022 09:27-0400 Diastolic blood pressure 60 mm[Hg] Teri Aragon Work Phone: [facility] [address] DO Work Phone: 09-07-2022 09:27-0400 Heart rate 58 /min Teri Aragon Work Phone: [facility] [address] DO Work Phone: 09-07-2022 09:27-0400 Systolic blood pressure 120 mm[Hg] Teri Contreras Netoalirio Work Phone: [facility] [address] DO Work Phone: 09-04-2022 08:40-0400 Body height 180.34 cm Sabino Ding Other [facility] Other 09-04-2022 08:40-0400 Body mass index (BMI) [Ratio] 35.28 kg/m2 Sabino Ding Other [facility] Other 09-04-2022 08:40-0400 Body weight 114.76 kg Sabino Ding Other [facility] Other 09-04-2022 08:40-0400 Diastolic blood pressure 76 mm[Hg] Sabino Ding Other [facility] Other 09-04-2022 08:40-0400 Systolic blood pressure 140 mm[Hg] Sabino Ding Other [facility] Other 08-28-2022 08:00-0400 Body height 180.34 cm Geeta Dumont Other [facility] Other 08-28-2022 08:00-0400 Body mass index (BMI) [Ratio] 35.28 kg/m2 Geeta Dumont Other [facility] Other 08-28-2022 08:00-0400 Body weight 114.76 kg Geeta Dumont Other [facility] Other 08-28-2022 08:00-0400 Diastolic blood pressure 82 mm[Hg] Geeta Dumont Other [facility] Other 08-28-2022 08:00-0400 SaO2% (BldA) [Mass fraction] 97 % Geeta Dumont Other [facility] Other 08-28-2022 08:00-0400 Systolic blood pressure 162 mm[Hg] Geeta Dumont Other [facility] Other 07-24-2022 08:39-0400 Diastolic blood pressure 75 mm[Hg] [employer] SALES ENGINEERMelecio Reedacher Work Phone: [facility] 07-24-2022 08:39-0400 Heart rate 74 /min [employer] SALES ENGINEERMelecio Reedacher Work Phone: [facility] 07-24-2022 08:39-0400 Respiratory rate 16 /min [employer] SALES ENGINEERMelecio Reedacher Work Phone: [facility] 07-24-2022 08:39-0400 SaO2% (BldA) [Mass fraction] 98 % [employer] SALES ENGINEERMelecio Reedacher Work Phone: [facility] 07-24-2022 08:39-0400 Systolic blood pressure 147 mm[Hg] [employer] SALES ENGINEERMelecio Ernandezr Work Phone: [facility] 07-24-2022 08:00-0400 Inhaled oxygen flow rate 3 L/min [employer] SALES ENGINEERMelecio Ernandezr Work Phone: [facility] 07-24-2022 07:12-0400 Body height 180.34 cm [employer] SALES ENGINEERMelecio Reedacher Work Phone: [facility] 07-24-2022 07:12-0400 Body temperature 97.7 [degF] [employer] SALES ENGINEERMelecio Reedacher Work Phone: [facility] 07-24-2022 07:12-0400 Body weight 104.32 kg [employer] SALES ENGINEERMelecio Reedacher Work Phone: [facility] 06-05-2022 09:38-0400 Diastolic blood pressure 71 mm[Hg] GOLDEN Reedacher Work Phone: [facility] 06-05-2022 09:38-0400 Heart rate 53 /min [employer]INE[employer] Geeta Derekacher Work Phone: [facility] 06-05-2022 09:38-0400 Respiratory rate 16 /min [employer] SALES ENGINEERMelecio Connor Charissarbacher Work Phone: [facility] 06-05-2022 09:38-0400 SaO2% (BldA) [Mass fraction] 98 % [employer] SALES ENGINEER Geeta Charissaritaacher Work Phone: [facility] 06-05-2022 09:38-0400 Systolic blood pressure 129 mm[Hg] [employer] SALES ENGINEER Geeta Derekacher Work Phone: [facility] 06-05-2022 09:00-0400 Inhaled oxygen flow rate 3 L/min [employer]INEER Geeta Derekacher Work Phone: [facility] 06-05-2022 07:49-0400 Body height 181.61 cm [employer] SALES ENGINEER Geeta Derkeacher Work Phone: [facility] 06-05-2022 07:49-0400 Body weight 102.05 kg [employer] SAL[employer] ENGINEER Geeta Charissaritaacher Work Phone: [facility] 05-08-2022 10:30-0500 Diastolic blood pressure 74 mm[Hg] [employer] SALES ENGINEER Geeta Charissaritaacher Work Phone: [facility] 05-08-2022 10:30-0500 Heart rate 55 /min [employer] SALES ENGINEER Geeta Charissarbacher Work Phone: [facility] 05-08-2022 10:30-0500 Respiratory rate 16 /min [employer] EQUIPMENT SALES ENGINEERMelecio ChangGeeta Charissarbacher Work Phone: [facility] 05-08-2022 10:30-0500 SaO2% (BldA) [Mass fraction] 97 % [employer] EQUIPMENT SALES ENGINEER Geeta Derekacher Work Phone: [facility] 05-08-2022 10:30-0500 Systolic blood pressure 134 mm[Hg] GOLDEN Changnifer Tim Work Phone: [facility] 05-08-2022 09:51-0500 Inhaled oxygen flow rate 3 L/min [employer] SALES ENGINEERMelecio ChangGeeta Awaisr Work Phone: [facility] 05-08-2022 08:56-0500 Body height 182.88 cm [employer] EQUIPMENT SALES ENGINEERMelecio ChangGeeta Derekmarian Work Phone: [facility] 05-08-2022 08:56-0500 Body temperature 97.7 [degF] [employer] EQUIPMENT SALES ENGINEER Geeta Derekbrynmary Work Phone: [facility] 05-08-2022 08:56-0500 Body weight 106.59 kg [employer] EQUIPMENT SALES ENGINEER Geeta Derekbrynr Work Phone: [facility] 04-26-2022 11:00-0500 Body height 180.34 cm Lavon Sandoval Other [facility] Other 04-26-2022 11:00-0500 Body mass index (BMI) [Ratio] 32.07 kg/m2 Lavon Sandoval Other [facility] [employer] Other 04-26-2022 11:00-0500 Body weight 104.33 kg Lavon Sandoval Other [facility] [employer] Other 04-03-2022 11:08-0500 Diastolic blood pressure 85 mm[Hg] GOLDEN Dumont Work Phone: [facility] 04-03-2022 11:08-0500 Heart rate 66 /min GOLDEN Dumont Work Phone: [facility] 04-03-2022 11:08-0500 Respiratory rate 18 /min GOLDEN Dumont Work Phone: [facility] 04-03-2022 11:08-0500 SaO2% (BldA) [Mass fraction] 98 % MAR[employer] EQUIPMENT SALES ENGINEER Geeta Reedachemary Work Phone: [facility] 04-03-2022 11:08-0500 Systolic blood pressure 137 mm[Hg] MARINE EQUIPMENT SALES ENGINEER Geeta Carringtonrbacher Work Phone: [facility] 04-03-2022 08:11-0500 Body height 180.34 cm MARINE EQUIPMENT SALES ENGINEER Geeta Reedacher Work Phone: [facility] 04-03-2022 08:11-0500 Body temperature 98 [degF] MARINE EQUIPMENT SALES ENGINEER Geeta Reedacher Work Phone: [facility] 04-03-2022 08:11-0500 Body weight 108.86 kg MAR[employer] EQUIPMENT SALES ENGINEER Geeta Reedacher Work Phone: [facility] 04-02-2022 12:30-0500 Body height 180.34 cm Geeta Tim Other [facility] Other 04-02-2022 12:30-0500 Body mass index (BMI) [Ratio] 33.19 kg/m2 Geeta Tim Other [facility] Other 04-02-2022 12:30-0500 Body temperature 98.2 [degF] Geeta Derekachemary Other [facility] Other 04-02-2022 12:30-0500 Body weight 107.96 kg Geeta Derekacher Other [facility] Other 04-02-2022 12:30-0500 Diastolic blood pressure 70 mm[Hg] Geeta Derekachemary Other [facility] Other 04-02-2022 12:30-0500 Respiratory rate 18 /min Geeta Carringtonrick Other [facility] Other 04-02-2022 12:30-0500 SaO2% (BldA) [Mass fraction] 98 % Geeta Ernandezmary Other [facility] Other 04-02-2022 12:30-0500 Systolic blood pressure 122 mm[Hg] Geeta Dumont Other [facility] Other 01-25-2022 09:52-0500 Body height 180.34 cm Teri Harperruss Work Phone: [employer] DO Work Phone: 01-25-2022 09:52-0500 Body mass index (BMI) [Ratio] 33.33 kg/m2 Teri [facility]uss [facility] DO Work Phone: 01-25-2022 09:52-0500 Body surface area Derived from formula 2.27 m2 Teri Harperruss Work [facility] [employer] [facility] DO Work Phone: 01-25-2022 09:52-0500 Body weight 108.41 kg Teri Harperruss Work Phone: [employer] [employer] 250 DO Work Phone: 01-25-2022 09:52-0500 Diastolic blood pressure 70 mm[Hg] Teri Harperruss Work Phone: [employer] [employer] [employer] DO Work Phone: 01-25-2022 09:52-0500 Heart rate 52 /min Teri Harperruss Work Phone: [facility] [employer] [address] DO Work Phone: 01-25-2022 09:52-0500 Systolic blood pressure 122 mm[Hg] Teri Aragon Work Phone: [facility] 250 DO Work Phone: 12-21-2021 09:07-0400 Body height 182.88 cm PHYSICIAN [facility] 12-21-2021 09:07-0400 Body mass index (BMI) [Ratio] 31.8 kg/m2 PHYSICIAN [facility] 12-21-2021 09:07-0400 Body weight 106.59 kg PHYSICIAN [facility] 12-21-2021 08:34-0400 Body temperature 97.2 [degF] PHYSICIAN [facility] 12-21-2021 08:34-0400 Diastolic blood pressure 94 mm[Hg] PHYSICIAN [facility] 12-21-2021 08:34-0400 Heart rate 73 /min PHYSICIAN [facility] 12-21-2021 08:34-0400 Respiratory rate 18 /min PHYSICIAN [facility] 12-21-2021 08:34-0400 Systolic blood pressure 172 mm[Hg] PHYSICIAN [facility] 12-15-2021 09:00-0400 Body height 180.34 cm Geeta Dumont Other [facility] [employer] Other 12-15-2021 09:00-0400 Body mass index (BMI) [Ratio] 32.35 kg/m2 Geeta Dumont Other [facility] Other 12-15-2021 09:00-0400 Body weight 105.24 kg Geeta Dumont Other [facility] Other 12-15-2021 09:00-0400 Diastolic blood pressure 77 mm[Hg] Geeta Dumont Other [facility] Other 12-15-2021 09:00-0400 SaO2% (BldA) [Mass fraction] 97 % Geeta Derekacher Other [facility] Other 12-15-2021 09:00-0400 Systolic blood pressure 135 mm[Hg] Geeta Derekacher Other [facility] Other 11-27-2021 11:30-0400 Body height 180.34 cm Geeta Derekacher Other [facility] Other 11-27-2021 11:30-0400 Body mass index (BMI) [Ratio] 32.35 kg/m2 Geeta Derekacher Other [facility] Other 11-27-2021 11:30-0400 Body weight 105.24 kg Geeta Derekacher Other [facility] Other 11-27-2021 11:30-0400 Diastolic blood pressure 80 mm[Hg] Geeta Derekacher Other [facility] Other 11-27-2021 11:30-0400 SaO2% (BldA) [Mass fraction] 97 % Geeta Derekacher Other [facility] Other 11-27-2021 11:30-0400 Systolic blood pressure 110 mm[Hg] Geeta Derekacher Other [facility] Other 11-10-2021 09:32-0400 Body height 182.88 cm DO Francisco [employer] Work Phone: [facility] 11-10-2021 09:32-0400 Body temperature 97.6 [degF] DO Francisco Li Work Phone: [facility] 11-10-2021 09:32-0400 Body weight 106.45 kg DO Francisco Li Work Phone: [facility] 11-10-2021 09:32-0400 Diastolic blood pressure 86 mm[Hg] DO Francisco Li Work Phone: [facility] 11-10-2021 09:32-0400 Heart rate 51 /min DO Francisco Li Work Phone: [facility] 11-10-2021 09:32-0400 Respiratory rate 18 /min DO Francisco Li Work Phone: [facility] 11-10-2021 09:32-0400 SaO2% (BldA) [Mass fraction] 97 % DO Francisco Li Work Phone: [facility] 11-10-2021 09:32-0400 Systolic blood pressure 164 mm[Hg] DO Francisco Li Work Phone: [facility] 10-30-2021 11:30-0400 Body height 180.34 cm Geeta Dumont Other [facility] Other 10-30-2021 11:30-0400 Body mass index (BMI) [Ratio] 33.05 kg/m2 Geeta Dumont Other [facility] Other 10-30-2021 11:30-0400 Body weight 107.5 kg Geeta Dumont Other [facility] Other 10-30-2021 11:30-0400 Diastolic blood pressure 64 mm[Hg] Geeta Dumont Other [facility] Other 10-30-2021 11:30-0400 Systolic blood pressure 110 mm[Hg] Geeta Carringtonritabrynmary Other [facility] [employer] Other 09-24-2021 16:00-0400 Body temperature 98.5 [degF] DO Francisco Li Work Phone: [facility] 09-24-2021 16:00-0400 Diastolic blood pressure 70 mm[Hg] DO Francisco Li Work Phone: [facility] 09-24-2021 16:00-0400 Heart rate 61 /min DO Francisco Li Work Phone: [facility] 09-24-2021 16:00-0400 SaO2% (BldA) [Mass fraction] 97 % DO Francisco Li Work Phone: [facility] 09-24-2021 16:00-0400 Systolic blood pressure 122 mm[Hg] DO Francisco Li Work Phone: [facility] 09-24-2021 12:00-0400 Respiratory rate 16 /min DO Francisco Li Work Phone: [facility] 09-24-2021 05:44-0400 Body weight 105.3 kg DO Francisco Li Work Phone: [facility] 09-23-2021 21:30-0400 Inhaled oxygen flow rate 6 L/min DO Francisco Li Work Phone: [facility] 09-22-2021 15:07-0400 Body height 180.34 cm DO Francisco Li Work Phone: [facility] 09-22-2021 15:07-0400 Body mass index (BMI) [Ratio] 32.8 kg/m2 DO Francisco Li Work Phone: [facility] 09-06-2021 00:00-0400 93 1 No PCP None -[facility] 250 DO Work Phone: Comment on above: [id number] 08-22-2021 14:00-0400 Body height 180.34 cm Geeta Dumont Other [facility] Other 08-22-2021 14:00-0400 Body mass index (BMI) [Ratio] 32.49 kg/m2 Geeta Ernandezr Other [facility] Other 08-22-2021 14:00-0400 Body weight 105.69 kg Geeta Dumont Other [facility] Other 08-22-2021 14:00-0400 Diastolic blood pressure 70 mm[Hg] Geeta Dumont Other [facility] Other 08-22-2021 14:00-0400 SaO2% (BldA) [Mass fraction] 99 % Geeta Carringtonritabrynmary Other [facility] Other 08-22-2021 14:00-0400 Systolic blood pressure 120 mm[Hg] Geeta Ernandezr Other [facility] Other 06-12-2021 09:30-0400 Body height 180.34 cm Geeta Dumont Other [facility] Other 06-12-2021 09:30-0400 Body mass index (BMI) [Ratio] 33.61 kg/m2 Geeta Dumont Other [facility] Other 06-12-2021 09:30-0400 Body weight 109.32 kg Geeta Ernandezr Other [facility] Other 06-12-2021 09:30-0400 Diastolic blood pressure 80 mm[Hg] Geeta Reedmarian Other [facility] Other 06-12-2021 09:30-0400 SaO2% (BldA) [Mass fraction] 98 % Geeta Ernandezmary Other [facility] Other 06-12-2021 09:30-0400 Systolic blood pressure 118 mm[Hg] Geeta Ernandezmary Other [facility] Other 01-25-2021 08:49-0500 Body height 180.34 cm Francisco Li [facility] Phone[facility] [employer] 250 DO Work Phone: 01-25-2021 08:49-0500 Body mass index (BMI) [Ratio] 33.89 kg/m2 Francisco Li Work Phone: [facility] 250 DO Work Phone: 01-25-2021 08:49-0500 Body surface area Derived from formula 2.29 m2 Francisco Li Work Phone[facility] 250 DO Work Phone: 01-25-2021 08:49-0500 Body weight 110.22 kg Francisco Li [facility] 250 DO Work Phone: 01-25-2021 08:49-0500 Diastolic blood pressure 76 mm[Hg] Francisco Li [facility] Phone[facility] 250 DO Work Phone: 01-25-2021 08:49-0500 Heart rate 51 /min Francisco Li Work Phone[facility] 250 DO Work Phone: 01-25-2021 08:49-0500 Systolic blood pressure 140 mm[Hg] Francisco Li Work Phone: [facility] 250 DO Work Phone: 12-07-2020 09:07-0400 Diastolic blood pressure 71 mm[Hg] Francisco Li Work Phone: HC-Pmmmnxgxwo-UKX [facility] [address] [place] Work Phone: 12-07-2020 09:07-0400 Systolic blood pressure 133 mm[Hg] Francisco Li Work Phone: CR-Effzebaxxd-MYV [facility] [address] [place] Work Phone: 12-07-2020 09:05-0400 Body height 180.34 cm Francisco Li Work Phone: PN-Omsmmdevjb-VZH [facility] [address] [place] Work Phone: 12-07-2020 09:05-0400 Body mass index (BMI) [Ratio] 34.73 kg/m2 Francisco Li Work Phone: ZF-Fukmrampoj-OYD [facility] [address] [place] Work Phone: 12-07-2020 09:05-0400 Body surface area Derived from formula 2.31 m2 Francisco Li Work Phone: FH-Eveljutwyj-DGT [facility] [address] [place] Work Phone: 12-07-2020 09:05-0400 Body temperature 96.6 [degF] Francisco Li Work Phone: DI-Hwllcagjub-UPH [facility] [address] [place] Work Phone: 12-07-2020 09:05-0400 Body weight 112.95 kg Francisco Li Work Phone: DQ-Ccbyjqgnjd-GJX [facility] [address] [place] Work Phone: 09-22-2021 09:05-0400 Diastolic blood pressure 76 mm[Hg] Francisco Li Work Phone: SU-Ylnycrgink-WCQ [facility] [address] [place] Work Phone: 12-07-2020 09:05-0400 Heart rate 63 /min Francisco Li Work Phone: AC-Zwtqxwhseg-GKE [facility] [address] [place] Work Phone: 12-07-2020 09:05-0400 Respiratory rate 16 /min Francisco Li Work Phone: HD-Aadcatacik-NJG [facility] [address] [place] Work Phone: 12-07-2020 09:05-0400 SaO2% (BldA) [Mass fraction] 96 % Francisco Li Work Phone: PT-Aazwwnqzku-ZLR [facility] [address] [place] Work Phone: 12-07-2020 09:05-0400 Systolic blood pressure 137 mm[Hg] Francisco Li Work Phone: IO-Myntlbxqtr-AES [facility] [address] [place] Work Phone: 08-25-2020 14:00-0400 Diastolic blood pressure 93 mm[Hg] Ulisses Nieves MD Work Phone: [facility] Work Phone: 08-25-2020 14:00-0400 Heart rate 64 /min Ulisses Nieves MD Work Phone: [facility] Work Phone: 08-25-2020 14:00-0400 Respiratory rate 10 /min Ulisses Nieves MD Work Phone: [facility] Work Phone: 08-25-2020 14:00-0400 SaO2% (BldA) [Mass fraction] 96 % Ulisses Nieves MD Work Phone: [facility] Work Phone: 08-25-2020 14:00-0400 Systolic blood pressure 133 mm[Hg] Ulisses Nieves MD Work Phone: [facility] Work Phone: 08-25-2020 13:29-0400 Body temperature 97 [degF] Ulisses Nieves MD Work Phone: [facility] Work Phone: 08-25-2020 11:17-0400 Body height 182.9 cm Ulisses Nieves MD Work Phone: [facility] Work Phone: 08-25-2020 11:17-0400 Body mass index (BMI) [Ratio] 33.23 kg/m2 Ulisses Nieves MD Work Phone: [facility] Work Phone: 08-25-2020 11:17-0400 Body weight 111.13 kg Ulisses Nieves MD Work Phone: [facility] Work Phone: 08-22-2020 14:29-0400 Body height 182.9 cm Stvz 1 [facility] Work Phone: 08-22-2020 14:29-0400 Body mass index (BMI) [Ratio] 33.23 kg/m2 Stvz 1 [facility] Work Phone: 08-22-2020 14:29-0400 Body temperature 96.4 [degF] Stvz 1 [facility] Work Phone: 08-22-2020 14:29-0400 Body weight 111.13 kg Stvz 1 [facility] Work Phone: 08-22-2020 14:29-0400 Diastolic blood pressure 70 mm[Hg] Stvz 1 [facility] Work Phone: 08-22-2020 14:29-0400 Heart rate 48 /min Stvz 1 [facility] Work Phone: 08-22-2020 14:29-0400 Respiratory rate 20 /min Stvz 1 [employer] Work Phone: 08-22-2020 14:29-0400 SaO2% (BldA) [Mass fraction] 97 % Stvz 1 [facility] Work Phone: 08-22-2020 14:29-0400 Systolic blood pressure 132 mm[Hg] Stvz 1 [facility] Work Phone: 05-12-2020 09:18-0500 Body Temperature 97.6 [degF] [facility] 05-12-2020 09:18-0500 Body weight 122.42 kg [facility] 05-12-2020 09:18-0500 BP Diastolic 83 mm[Hg] [facility] 05-12-2020 09:18-0500 BP Systolic 148 mm[Hg] [facility] 05-12-2020 09:18-0500 Height 182.88 cm [facility] 05-12-2020 09:18-0500 Pulse (Heart Rate) 58 /min [facility] 05-12-2020 09:18-0500 Pulse Oximetry 94 % [facility] 05-12-2020 09:18-0500 Respiratory Rate 20 /min [facility] Encounters Encounter Date Encounter [...] 04-18-2023 End: 04-18-2023 ambulatory Essam Elashi Other [employer] Other Start: 04-18-2023 Office outpatient vi sit 25 minutes M[facility] Start: 04-17-2023 End: 04-17-2023 ambulatory Geeta Dumont Facility:[facility] Start: 04-17-2023 Encounter for other preprocedural examination [facility] Start: 04-17-2023 End: 04-17-2023 Encounter for other preprocedural examination [facility] Start: 04-17-2023 End: 04-17-2023 ambulatory DO Teri Aragon Work Phone: [facility] Work Phone: Start: 04-17-2023 End: 04-17-2023 Patient encounter procedure DO Teri Aragon Work Phone: [facility] [place] Work Phone: Start: 04-17-2023 End: 04-17-2023 Office outpatient visit 25 minutes Viridiana Burgess DO Work Phone: [facility] Comment on above: Preoperative clearan ce; Amputation of right great toe (CMS/HCC); Atherosclerosis of [place] coronary artery of [place] heart without angina pectoris; Chronic atrial fibrillation (CMS/HCC); Mild hypertrophic obstructive cardiomyopathy (CMS/HCC); Status post angioplasty; Hyperlipidemia, unspecified hyperlipidemia type; Essential hypertension; Presence of Watchman left atrial appendage closure device; Former smoker Start: 04-17-2023 End: 04-17-2023 Preoperative state Viridiana Burgess DO Work Phone: [facility] Start: 04-05-2023 End: 04-05-2023 ambulatory Geeta Dumont Other [facility] Other Start: 04-05-2023 Telephone encounter Geeta cuevas [facility] Start: 04-04-2023 End: 04-04-2023 ambulatory Geeta Dumont Facility:[facility] Start: 04-04-2023 End: 04-04-2023 Patient encounter procedure DO Teri Harperi Work Phone: [facility] [place] Work Phone: Start: 04-04-2023 End: 04-04-2023 ambulatory DO Teri Branalenacki Work Phone: [facility] Work Phone: Start: 03-28-2023 End: 03-28-2023 ambulatory WEI SOTO Not Available Start: 03-27-2023 End: 03-27-2023 ambulatory Sindi Foster Jr Facility:[facility] Start: 03-27-2023 End: 03-27-2023 ambulatory DO Teri Branalenacki Work Phone: [facility] Work Phone: Start: 03-27-2023 End: 03-27-2023 Patient encounter procedure DO Teri Cedillocki Work Phone: [facility]-XRay [facility] [place] Work Phone: Start: 03-25-2023 End: 03-25-2023 ambulatory Geeta Dumont Other [facility] Other Start: 03-25-2023 Telephone encounter Geeta Henry [facility] Start: 03-22-2023 End: 03-22-2023 ambulatory Alton Espinoza Facility:[facility] Start: 03-22-2023 End: 03-22-2023 ambulatory DO Teri Branalenacki Work Phone: [facility] Work Phone: Start: 03-22-2023 End: 03-22-2023 Patient encounter procedure DO Teri Branalenacki Work Phone: [facility]-Ultrasound [facility] [place] Work Phone: Start: 03-20-2023 Office outpatient vi sit 25 minutes Geeta Dumont [facility] Start: 03-20-2023 End: 03-20-2023 ambulatory SINDI FOSTER [facility] Other Start: 03-20-2023 End: 03-20-2023 Patient encounter procedure DO Teri Cedilloraymondruss Work Phone: [facility]MRI [facility] [place] Work Phone: Start: 03-20-2023 End: 03-20-2023 Patient encounter procedure DO Teri Cedilloraymondruss Work Phone: [facility] Work Phone: Start: 03-13-2023 End: 03-13-2023 ambulatory Prashant Salinas Other [facility] Other Start: 03-13-2023 Telephone encounter Prashant Salinas [facility] Start: 03-08-2023 End: 03-08-2023 ambulatory Geeta Dumont Other [facility] Other Start: 03-08-2023 Telephone encounter Geeta Henry her [facility] Start: 03-07-2023 End: 03-07-2023 ambulatory Geeta Dumont Facility:[facility] Start: 03-07-2023 End: 03-07-2023 Patient encounter procedure DO Teri Aragon Work Phone: [facility] [place] Work Phone: Start: 03-05-2023 End: 03-05-2023 ambulatory Geeta Dumont Other [facility] Other Start: 03-05-2023 Office outpatient vi sit 25 minutes Geeta Dumont [facility] Start: 03-05-2023 Telephone encounter Geeta Henry [facility] Start: 03-05-2023 End: 03-05-2023 Patient encounter procedure DO Teri Aragon Work Phone: [facility] Work Phone: Start: 03-01-2023 End: 03-01-2023 ambulatory Mina Reilly Other [place] [employer] Other Start: 03-01-2023 Telephone encounter Mina Appiahabundio [facility] Start: 02-26-2023 End: 02-26-2023 ambulatory Teri Aragon Facility:[facility] Start: 02-26-2023 End: 02-26-2023 ambulatory DO Teri Cedilloraymondruss Work Phone: [facility] Work Phone: Start: 02-26-2023 End: 02-26-2023 Discharged Recurring DO Teri Aragon Work Phone: [facility]Wound [facility] [place] Work Phone: Start: 02-26-2023 Registered Recurring DO Bandar Aragon Work Phone: [facility]Wound [facility] [place] Work Phone: Start: 02-21-2023 Office outpatient vi sit 25 minutes Davidruddy Tommie [facility] Nephrology Start: 02-21-2023 End: 02-21-2023 ambulatory TERI ARAGON [facility] [employer] Other Start: 02-21-2023 End: 02-21-2023 Patient encounter procedure DO Teri Cedilloraymondruss Work Phone: [facility]-CT Scan [facility] [place] Work Phone: Start: 02-21-2023 End: 02-21-2023 Patient encounter procedure DO Teri Aragon Work Phone: [facility] Work Phone: Start: 02-18-2023 Telephone encounter Ingris Echevarriajulien garrett [facility] Start: 02-18-2023 Transitional care reta paco srvc 14 day discharge Ingris Echevarriaesvin [facility] Start: 02-18-2023 End: 02-18-2023 ambulatory DARIO BOLDEN Not Available Start: 02-18-2023 End: 02-18-2023 ambulatory DO Teri Aragon Work Phone: [facility] Work Phone: Start: 02-18-2023 End: 02-18-2023 Patient encounter procedure DO Teri Aragon Work Phone: [facility] [place] Work Phone: Start: 02-18-2023 End: 02-18-2023 Patient encounter procedure DO Teri Aragon Work Phone: [facility] Work Phone: Start: 02-12-2023 End: 02-15-2023 Evaluation and management of inpatient Teri Aragon Facility:[facility] Start: 02-12-2023 End: 02-15-2023 Evaluation and management of inpatient DO Teri Aragon Work Phone: [facility] Work Phone: Start: 02-11-2023 End: 02-11-2023 ambulatory Ingris Lombardo Other [facility] Other Start: 02-11-2023 Telephone encounter Ingris Echevarriajulien garrett [facility] Start: 02-10-2023 End: 02-10-2023 ambulatory Teri Aragon Facility:[facility] Start: 02-10-2023 End: 02-10-2023 Patient encounter procedure [facility]-Electrodiagnostics Work Phone: Start: 02-08-2023 End: 02-10-2023 Evaluation and management of inpatient Subhash Duckworth Facility:[facility] Start: 02-08-2023 End: 02-10-2023 Evaluation and management of inpatient [facility] Work Phone: Start: 02-06-2023 Evaluation and manag ement of inpatient [facility] Work Phone: Start: 02-06-2023 observation encounter NON STAFF [facility] Work Phone: Start: 02-04-2023 End: 02-04-2023 ambulatory WEI SOTO Not Available Start: 01-28-2023 End: 01-28-2023 ambulatory Dario Bolden Facility:[facility] Start: 01-28-2023 End: 01-28-2023 ambulatory NON STAFF [facility] Work Phone: Start: 01-28-2023 End: 01-28-2023 Patient encounter procedure [facility]-Nuc Med [facility] [place] Work Phone: Start: 01-23-2023 End: 01-24-2023 ambulatory DARIO BOLDEN Not Available Start: 01-14-2023 End: 01-14-2023 ambulatory Sindi Foster Jr Facility:[facility] Start: 01-14-2023 End: 01-14-2023 Patient encounter procedure [facility]XRay [facility] [place] Work Phone: Start: 12-19-2022 End: 12-19-2022 ambulatory Teri Aragon Facility:[facility] Start: 12-19-2022 End: 12-19-2022 ambulatory GOLDEN Dumont Work Phone: [facility] Work Phone: Start: 12-19-2022 End: 12-19-2022 Patient encounter procedure GOLDEN Dumont Work Phone: [facility] [place] Work Phone: Start: 12-12-2022 End: 12-12-2022 ambulatory Ingris Rviasjerome Other [facility] [employer] Other Start: 12-12-2022 Telephone encounter Ingris Minh garrett [facility] Start: 12-06-2022 End: 12-06-2022 ambulatory Sindi Foster [place] Start: 12-05-2022 Telephone encounter Teri Aragon Work Phone: [facility] [address] DO Work Phone: Start: 11-27-2022 ambulatory Teri Aragon Facil ity:[facility] Start: 11-27-2022 Registered Recurring GOLDEN Dumont Work Phone: [facility] Work Phone: Start: 11-26-2022 End: 11-26-2022 ambulatory Vivian Del Rosario Facility:[facility] Start: 11-26-2022 End: 11-26-2022 ambulatory GOLEDN Dumont Work Phone: [facility] Work Phone: Start: 11-26-2022 End: 11-26-2022 Patient encounter procedure GOLDEN Dumont Work Phone: [facility]-Lab [place] Work Phone: Start: 11-12-2022 End: 11-12-2022 ambulatory NON STAFF Facility:[facility] Start: 11-12-2022 End: 11-12-2022 ambulatory GLODEN Dumont Work Phone: [facility] Work Phone: Start: 11-12-2022 End: 11-12-2022 Patient encounter procedure GOLDEN Dumont Work Phone: [facility] [place] Work Phone: Start: 11-01-2022 AUDIT Teri Contreras Neto amezquita Work Phone: [facility] 250 DO Work Phone: Start: 10-16-2022 End: 10-16-2022 ambulatory Geeta Dumont Other [place] [employer] Other Start: 10-16-2022 Telephone encounter Geeta Henry her [facility] Start: 10-11-2022 End: 10-11-2022 ambulatory Geeta Dumont Other [facility] Other Start: 10-11-2022 Office outpatient vi sit 25 minutes Geeta Dumont [facility] Start: 10-10-2022 End: 10-10-2022 ambulatory Geeta Dumont Facility:[facility] Start: 10-10-2022 End: 10-10-2022 ambulatory MARINE EQUIPMENT SALES ENGINEER Geeta Dumont Work Phone: [facility] Work Phone: Start: 10-10-2022 End: 10-10-2022 Patient encounter procedure MARINE EQUIPMENT SALES ENGINEER Geeta Dumont Work Phone: [facility]-Lab [place] Work Phone: Start: 10-01-2022 End: 10-01-2022 ambulatory Geeta Dumont Other [place] [employer] Other Start: 10-01-2022 Telephone encounter Geeta Henry her [employer] Start: 09-28-2022 Telephone encounter Geeta Henry her [facility] Start: 09-28-2022 End: 09-28-2022 ambulatory MARINE EQUIPMENT SALES ENGINEER Geeta Dumont Work Phone: [place] [employer] Other Start: 09-28-2022 End: 09-28-2022 Patient encounter procedure MARINE EQUIPMENT SALES ENGINEER Geeta Dumont Work Phone: [facility]-MRI [place] Work Phone: Start: 09-12-2022 End: 09-12-2022 ambulatory Geeta Dumont Other [facility] Other Start: 09-12-2022 Office outpatient vi sit 15 minutes Geeta Dumont [facility] Start: 09-10-2022 End: 09-10-2022 ambulatory Geeta Dumont Other [facility] Other Start: 09-10-2022 Telephone encounter Geeta Henry [facility] Start: 09-07-2022 FUV, Provider: Viridiana Burgess, Status: Pen, Time: 9:20 AM Teri Aragon Work Phone: [facility] 250 DO Work Phone: Start: 09-07-2022 Office outpatient vi sit 25 minutes Teri Aragon Work Phone: [facility] 250 DO Work Phone: Start: 09-07-[address] Stone Tn roseanne Burgess Facility: Start: 09-06-2022 Chart Update Teri amezquita Work Phone: [facility] 250 DO Work Phone: Start: 09-05-2022 End: 09-05-2022 ambulatory Geeta Dumont Facility:[facility] Start: 09-05-2022 End: 09-05-2022 ambulatory MARINE EQUIPMENT SALES ENGINEER Geeta Dumont Work Phone: [facility] Work Phone: Start: 09-05-2022 End: 09-05-2022 Patient encounter procedure MARINE EQUIPMENT SALES ENGINEERMelecio Dumotn Work Phone: [facility] [place] Work Phone: Start: 09-04-2022 End: 09-04-2022 ambulatory Sabino Ding Other [facility] Other Start: 09-04-2022 Office outpatient ne w 30 minutes Sabino Ding [facility] Start: 09-04-2022 Telephone encounter Teri Diane Aragon Work Phone: [facility] 250 DO Work Phone: Start: 09-03-2022 End: 09-03-2022 ambulatory Geeta Dumont Facility:[facility] Start: 09-03-2022 End: 09-03-2022 ambulatory MARINE EQUIPMENT SALES ENGINEERMelecio Dumont Work Phone: [facility] Work Phone: Start: 09-03-2022 End: 09-03-2022 Patient encounter procedure GOLDEN Dumont Work Phone: [facility]-X[facility] Work Phone: Start: 08-30-2022 End: 08-30-2022 ambulatory Geeta Dumont Other [facility] Other Start: 08-30-2022 Telephone encounter Geeta Henry her [facility] Start: 08-29-2022 Telephone encounter Geeta Henry her [facility] Start: 08-29-2022 End: 08-29-2022 ambulatory MARINE EQUIPMENT SALES ENGINEERMelecio Dumont Work Phone: [facility] Work Phone: Start: 08-29-2022 End: 08-29-2022 Patient encounter procedure MARINE EQUIPMENT SALES ENGINEER Geeta Dumont Work Phone: [facility] [place] Work Phone: Start: 08-28-2022 Office outpatient vi sit 25 minutes Geeta Dumont [facility] Start: 08-28-2022 End: 08-28-2022 ambulatory Geeta Dumont [place] [employer] Other Start: 08-28-2022 End: 08-28-2022 Patient encounter procedure MARINE EQUIPMENT SALES ENGINEER Geetaivon Dumont Work Phone: [facility] [place] Start: 08-20-2022 End: 08-20-2022 ambulatory Lavon Sandoval Other [employer] Other Start: 08-20-2022 Telephone encounter [facility]on [facility] Start: 07-24-2022 (Procedure) Short Lavon Sandoval [facility] Start: 07-24-2022 End: 07-24-2022 Admission to same day surgery center MARINE EQUIPMENT SALES ENGINEER Geeta Dumont Work Phone: [facility]ive [facility] Work Phone: Start: 07-24-2022 End: 07-24-2022 ambulatory MARINE EQUIPMENT SALES ENGINEERMelecio Dumont Work Phone: [employer] Other Start: 07-02-2022 Telephone encounter Geeta cuevas [facility] Start: 07-02-2022 End: 07-02-[address] Viridiana Burgess [employer] Other Start: 06-26-2022 End: 06-26-2022 ambulatory Lavon Sandoval Other [employer] Other Start: 06-26-2022 Telephone encounter [facility]on [facility] Start: 06-18-2022 End: 06-18-2022 ambulatory Lavon Sandoval Other [employer] Other Start: 06-18-2022 Telephone encounter Lavon Sandoval [facility] [place] Start: 06-14-2022 End: 06-14-2022 ambulatory Lavon Sandoval Other [employer] Other Start: 06-14-2022 Office outpatient vi sit 25 minutes Lavon Jaime [facility] [place] Start: 06-05-2022 (Procedure) Jo Sandoval [facility] Start: 06-05-2022 End: 06-05-2022 ambulatory Geeta Dumont Facility:[facility] Start: 06-05-2022 End: 06-05-2022 Admission to same day surgery center MARINE EQUIPMENT SALES ENGINEERMelecio Dumont Work Phone: [facility] Work Phone: Start: 06-05-2022 End: 06-05-2022 ambulatory GOLDEN Dumont Work Phone: [facility] Work Phone: Start: 06-01-2022 Telephone encounter Teri Aragon Work Phone: [facility] 250 DO Work Phone: Start: 05-18-2022 Rx Renewal Teri amezquita Work Phone: [facility] 250 DO Work Phone: Start: 05-17-2022 End: 05-17-2022 ambulatory Lavon Sandoval Other [employer] Other Start: 05-17-2022 Office outpatient vi sit 25 minutes Lavon Pegueroleida [facility] [place] Start: 05-08-2022 (Procedure) Jo Sandoval [facility] Start: 05-08-2022 End: 05-08-2022 ambulatory Geeta Dumont Facility:[facility] Start: 05-08-2022 End: 05-08-2022 Admission to same day surgery center MARINE EQUIPMENT SALES ENGINEER Geeta Dumont Work Phone: [facility] Work Phone: Start: 05-08-2022 End: 05-08-2022 ambulatory MARINE EQUIPMENT SALES ENGINEER Geeta Dumont Work Phone: [facility] Work Phone: Start: 04-26-2022 End: 04-26-2022 ambulatory Lavon Sandoval Other [employer] Other Start: 04-26-2022 Office outpatient ne w 45 minutes Lavon Sandoval [facility] [place] Start: 04-26-2022 End: 04-26-2022 Patient encounter procedure MARINE EQUIPMENT SALES ENGINEER Geeta Dumont Work Phone: [facility] [place] [facility] Start: 04-23-2022 End: 04-23-2022 ambulatory Geeta Dumont Other [employer] Other Start: 04-23-2022 Telephone encounter Geeta Carringtonbharati her [facility] [place] Start: 04-20-2022 End: 04-20-2022 ambulatory Geeta Dumont Other [employer] Other Start: 04-20-2022 Telephone encounter Geeta Carringtonbharati her [facility] [place] Start: 04-16-2022 End: 04-16-2022 ambulatory Geeta Tim Other [employer] Other Start: 04-16-2022 Telephone encounter Geeta Carringtonbharati her [facility] [place] Start: 04-13-2022 Rx Renewal Teri amezquita Work Phone: [facility] 250 DO Work Phone: Start: 04-12-2022 End: 04-12-2022 ambulatory MARINE EQUIPMENT SALES ENGINEER Geeta Dumont Work Phone: [facility] Work Phone: Start: 04-12-2022 End: 04-12-2022 Patient encounter procedure MARINE EQUIPMENT SALES ENGINEER Geeta Dumont Work Phone: [facility]-Ultrasound [place] Work Phone: Start: 04-10-2022 Rx Renewal Teri amezquita Work Phone: [facility] 250 DO Work Phone: Start: 04-07-2022 End: 04-07-2022 ambulatory Geeta Dumont Other [place] [employer] Other Start: 04-07-2022 Telephone encounter Geeta Henry her [place] [employer] Start: 04-03-2022 End: 04-03-2022 Admission to same day surgery center MARINE EQUIPMENT SALES ENGINEER Geeta Dumont Work Phone: [facility] Work Phone: Start: 04-02-2022 End: 04-02-2022 ambulatory Geeta Dumont Other [place] [employer] Other Start: 04-02-2022 Patient encounter procedure Geeta Dumont [facility] Start: 03-29-2022 Chart Update Teri amezquita Work Phone: [facility] 250 DO Work Phone: Start: 03-28-2022 Rx Renewal Teri amezquita Work Phone: [facility] 250 DO Work Phone: Start: 03-28-2022 End: 03-28-2022 ambulatory MARINE EQUIPMENT SALES ENGINEER Geeta Carringtonrick Work Phone: [facility] Work Phone: Start: 03-28-2022 End: 03-28-2022 Patient encounter procedure MARINE EQUIPMENT SALES ENGINEERMelecio Carringtonritamarian Work Phone: [facility] [place] Work Phone: Start: 03-26-2022 End: 03-26-2022 ambulatory Geeta Carringtonjuan ramonmary Other [employer] Other Start: 03-26-2022 Telephone encounter Geeta Henry her [facility] Start: 03-05-2022 End: 03-05-2022 ambulatory Geeta Carringtonrick Other [employer] Other Start: 03-05-2022 Telephone encounter Geeta Henry her [facility] Start: 01-25-2022 Office outpatient vi sit 25 minutes Teri Aragon Work Phone: [facility] 250 DO Work Phone: Start: 01-25-[address] Teri Aragon Facility: Start: 01-25-2022 Rx Renewal Teri amezquita Work Phone: [facility] 250 DO Work Phone: Start: 01-17-2022 End: 01-17-2022 ambulatory Geeta Tim Other [employer] Other Start: 01-17-2022 Telephone encounter Geeta Henry her [facility] Start: 01-04-2022 End: 01-04-2022 ambulatory Geeta Tim Other [employer] Other Start: 01-04-2022 Telephone encounter Geeta Elaine her [employer] Start: 01-02-2022 End: 01-02-2022 ambulatory DO Teri Cedillobjorn Work Phone: [facility] Work Phone: Start: 01-02-2022 End: 01-02-2022 Patient encounter procedure DO Teri Duquealirio Work Phone: [facility]-MRI [address] Start: 01-01-2022 End: 01-01-2022 ambulatory Geeta Dumont Other [employer] Other Start: 01-01-2022 Telephone encounter Geeta Elaine her [facility] Start: 12-27-2021 End: 12-28-2021 ambulatory Dario Bolden [place] Start: 12-27-2021 End: 12-27-2021 Lab Drop off Dario Bolden [facility] Start: 12-21-2021 End: 12-21-2021 ambulatory PHYSICIAN NO [facility] Work Phone: Start: 12-21-2021 End: 12-21-2021 Discharged Recurring PHYSICIAN NO [facility]-Wound Care [place] Start: 12-18-2021 Chart Update No PCP None [facility]-Cardiol ogy-CMC Brandi Mathur [address] [place] Work Phone: Start: 12-15-2021 End: 12-15-2021 ambulatory Geeta Dumont Other [employer] Other Start: 12-15-2021 Office outpatient vi sit 25 minutes Geeta Dumont [facility] Start: 12-11-2021 End: 12-11-2021 Departed Referred PHYSICIAN NO [facility]-Lab [place] Start: 12-05-2021 End: 12-05-2021 Patient encounter procedure DPM Alden Lal Work Phone: [facility]-Lab [address] Start: 11-30-2021 End: 11-30-2021 ambulatory Geeta Dumont Other [employer] Other Start: 11-30-2021 Telephone encounter Geeta Carringtonbharati her [employer] Start: 11-28-2021 End: 11-28-2021 ambulatory Geeta Dumont Facility:[facility] Start: 11-27-2021 End: 11-27-2021 ambulatory Geeta Tim Other [employer] Other Start: 11-27-2021 Office outpatient vi sit 15 minutes Geeta Dumont [facility] Start: 11-21-2021 End: 11-21-2021 Departed Referred DO Francisco Li Work Phone: [facility]-Lab [facility] Start: 11-21-2021 End: 11-21-2021 ambulatory Geeta Dumont Other [employer] Other Start: 11-21-2021 Telephone encounter Geeta Elaine her [facility] Start: 11-10-2021 End: 11-10-2021 Registered Recurring DO Francisco Li Work Phone: [facility]-Cancer [facility] Start: 11-08-2021 End: 11-08-2021 Departed Referred DO Francisco Li Work Phone: [facility]-Lab [place] Start: 10-30-2021 End: 10-30-2021 ambulatory Geeta Dumont Other [employer] Other Start: 10-30-2021 Encounter for other preprocedural examination Geeta Dumont [facility] Start: 10-30-2021 Office outpatient vi sit 25 minutes Geeta Carringtonrick [facility] Start: 10-27-2021 End: 10-29-2021 Subsequent hospital visit by physician [facility] Comment on above: Arrived Start: 10-27-2021 End: 11-01-2021 ambulatory RUSSELL LI [facility] Start: 10-13-2021 End: 10-13-2021 ambulatory Geeta Tim Other [employer] Other Start: 10-13-2021 Telephone encounter Geeta Carringtonbharati her [employer] Start: 10-09-2021 End: 10-09-2021 ambulatory Geeta Carringtonjuan ramonr Other [employer] Other Start: 10-09-2021 Telephone encounter Geeta Carringtonbharati her [facility] Start: 09-29-2021 End: 09-29-2021 ambulatory Geeta Carringtonjuan ramonr Other [employer] Other Start: 09-29-2021 Office outpatient vi sit 15 minutes Geeta Tim [facility] Start: 09-29-2021 Telephone encounter Geeta Henry her [facility] Start: 09-27-2021 End: 09-27-2021 Patient encounter procedure DO Francisco Guillermo Work Phone: [facility] [place] Start: 09-20-2021 End: 09-24-2021 Evaluation and management of inpatient DO Francisco Li Work Phone: [facility] Start: 09-20-2021 End: 09-20-2021 Departed Referred DO Francisco Li Work Phone: [facility]-Lab [place] Start: 09-13-2021 Chart Update No PCP None [facility] 250 DO Work Phone: Start: 09-13-2021 End: 09-13-2021 ambulatory Geeta Dumont Other [employer] Other Start: 09-13-2021 Telephone encounter Geeta Henry her [facility] Start: 09-06-2021 End: 09-06-2021 Patient encounter procedure DO Francisco Li Work Phone: [facility] [place] Start: 08-23-2021 End: 08-23-2021 ambulatory Geeta Dumont Other [employer] Other Start: 08-23-2021 Telephone encounter Geeta Elaine her [employer] Start: 08-22-2021 End: 08-22-2021 Patient encounter procedure DO Francisco Li Work Phone: [facility]-XRay [place] Start: 08-22-2021 End: 08-22-2021 ambulatory Geeta Dumont Other [employer] Other Start: 08-22-2021 Office outpatient vi sit 25 minutes Geeta Dumont [facility] Start: 06-23-2021 End: 08-23-2021 ambulatory TERI ARAGON Facility:[facility] Start: 06-14-2021 End: 06-14-2021 ambulatory Geeta Dumont Other [employer] Other Start: 06-14-2021 Telephone encounter Geeta Elaine her [employer] Start: 06-12-2021 End: 06-12-2021 ambulatory Geeta Dumont Other [employer] Other Start: 06-12-2021 Office outpatient ne w 30 minutes Geeta Dumont [facility] Start: 05-03-2021 Rx Renewal Francisco Garg on Work Phone: [facility] 250 DO Work Phone: Start: 02-19-2021 Rx Renewal Francisco Danny Forest on Work Phone: [facility] 250 DO Work Phone: Start: 01-25-2021 Office outpatient vi sit 25 minutes Francisco Li Work Phone: [facility] [address] [place] Work Phone: Start: 01-25-2021 Patient encounter procedure Francisco Li Work Phone: [facility] 250 DO Work Phone: Start: 01-24-2021 AUDIT Francisco Garg on Work Phone: CZ-Gtqutzlwaa-Owrjii 1800 Wound Work Phone: Start: 01-19-2021 Chart Update Francisco Garg on Work Phone: PL-Zgkpurvpmc-NEM [facility] [address] [place] Work Phone: Start: 01-17-2021 ambulatory Criselda Renee Facilit y: [facility] Start: 01-10-2021 Preoperative state Francisco Wetzel son Other Phone: [facility] Start: 01-10-2021 End: 01-10-2021 Evaluation and management of inpatient Francisco Jose [facility] Cardiac Filter Helper Rm 02 Start: 01-04-2021 AUDIT Francisco Garg on Work Phone: OA-Gfjhoedsey-Oxiivfu Work Phone: Start: 12-19-2020 AUDIT Francisco Garg on Work Phone: DP-Ldvmbscypk-LPB [facility] [address] [place] Work Phone: Start: 12-07-2020 Office outpatient ne w 45 minutes Francisco Li Work Phone: CL-Sycxtntknm-BGA Brandi Mathur [address] [place] Work Phone: Start: 08-25-2020 End: 08-25-2020 ambulatory [facility] Start: 08-25-2020 End: 08-25-2020 Subsequent hospital visit by physician Ulisses Nieves MD Work Phone: [facility] Start: 08-22-2020 End: 08-27-2020 ambulatory MARGARET [facility] Start: 08-22-2020 End: 08-26-2020 Subsequent hospital visit by physician Westley Pat 1 [facility] Pre-Admit Testing Start: 07-26-2020 End: 07-26-2020 [facility] Start: 07-22-2020 End: 07-22-2020 Subsequent hospital visit by physician Westley [facility] [place] Comment on above: COVID-19 ruled out b y laboratory testing (Primary Dx) Start: 07-02-2020 End: 07-03-2020 [facility] Start: 07-02-2020 End: 07-02-2020 Patient encounter status Stcz Schedule STCZ Covid Scre ening Start: 07-02-2020 End: 07-02-2020 Subsequent hospital visit by physician Vita Covid Screening Schedule STLELIA Covid Screening Comment on above: Preop testing (Prima ry Dx) Start: 05-12-2020 Registered Recurring [facility] Start: 03-30-2019 End: 04-01-2019 Subsequent hospital visit by physician [facility] [address] Scan Comment on above: Cough; Hemoptysis; SOB (shortness of breath) SOB (shortness of br eath); Hemoptysis Start: 09-27-2017 End: 09-27-2017 Patient encounter ESSENCE MARTÍNEZ Facility:[facility] Start: 09-23-2017 Patient encounter PAULA BERGER Facility: Start: 11-16-2016 End: 11-16-2016 Patient encounter ESSENCE MARTÍNEZ Facility:[facility] Start: 11-07-2016 Patient encounter ESSENCE Magallanes ity:[id number] Patient encounter procedure Francisco [facility] Procedures Date Procedure Procedure Detail Performing [...] bone study Start: 09-28-2022 MRI of head MAR[employer] EQUIP[employer] SALES ENGINEERMelecio Dumont Work Phone: Start: 09-03-2022 X-ray of cervical spine MARINE EQUIPMENT SALES ENGINEER Geeta Carringtonrick Work Phone: Start: 08-28-2022 Plain chest X-ray MARINE EQUIPMENT SALES ENGINEER Geeta Derekbrynmary Work Phone: Start: 07-24-2022 Local anesthetic lum bar facet joint nerve block [employer]IP[employer] SALES ENGINEERMelecio Carringtonrick Work Phone: Start: 06-05-2022 Local anesthetic lum bar facet joint nerve block MARINE E[employer]MENT SALES ENGINEER Geeta Ernandezmary Work Phone: Start: 05-08-2022 Local anesthetic lum bar facet joint nerve block MARINE EQUIPMENT SALES ENGINEERMelecio Dumont Work Phone: Start: 04-26-2022 X-ray of lumbar spin e, four views MAR[employer] EQUIPMENT SALES ENGINEERMelecio Carringtonrick Work Phone: Start: 04-12-2022 Pulse volume recorde r pneumoplethysmography [employer] EQUIPMENT SALES ENGINEERMelecio Connor Tim Work Phone: Start: 04-03-2022 Screening [...] Francisco Li Aerobic microbial culture DO Francisco Guilelrmo Work Phone: Aerobic microbial culture DO Franciscojolene Li Work Phone: Aerobic microbial culture DO Francisco iL Work Phone: Aerobic microbial culture DP Hyun [...] vaccine (2 - Td or Tdap) [facility] Start: 01-03-2026 DTaP/Tdap/Td Vaccines (2 - Td or Tdap) DTaP/Tdap/Td Vaccines (2 - Td or Tdap) [facility] Start: 02-08-2024 Echocardiography Echocardiogram [facility] Start: 12-19-2023 End: 12-19-2023 Patient encounter procedure 12/19/2023 10:20 AM EDT Office Visit [facility] [address] [place] [address] Estee Han MD [address] [place] [address] [facility] Start: 10-16-2023 End: 10-16-2023 Patient encounter procedure 10/16/2023 10:00 AM EDT Office Visit [facility] [address] [facility] [address] [place] [address] Shameka Melara, MARINE EQUIPMENT SALES ENGINEER-RETORT SETTER [address] [place] [address] [facility] Start: 07-26-2023 End: 07-26-2023 Patient encounter procedure 07/26/2023 10:00 AM EDT Office Visit Formerly named [facility] [address] [place] [address] [place] [address] [place], [place] [id number] Formerly named [facility] Start: 06-19-2023 End: 06-19-2023 Patient encounter procedure 06/19/2023 9:10 AM EDT Office Visit [facility] [address] [place] [address] Sindi Foster MD [address] [place] [address] [facility] Start: 05-23-2023 End: 05-23-2023 Patient encounter procedure 05/23/2023 9:30 AM EST Office Visit [facility] [address] [place] [id number] Wei Soto MD [address] [facility] [address] [id number] [facility] Start: 05-22-2023 End: 05-22-2023 Patient encounter procedure 05/22/2023 9:10 AM EST Office Visit [facility] [address] [place] [address] Sindi Foster MD [address] [place] [address] [facility] Start: 04-24-2023 End: 04-24-2023 Patient encounter procedure 04/24/2023 9:10 AM EST Office Visit [facility] [address] [place] [address] Sindi Foster MD [address] [place] [address] [facility] Start: 03-20-2023 FUV, Provider: Viridiana Burgess, Status: Pen, Time: 9:50 AM FUV, Provider: Viridiana Burgess, Status: Pen, Time: 9:50 AM [facility] 250 DO Work Phone: Start: 03-13-2023 COVID-19 Vaccine () COVID-19 Vaccine () [facility] Start: 02-15-2023 [facility] Start: 02-14-2023 [facility] Start: 02-12-2023 Hospital admission [facility] Start: 02-12-2023 Insertion of Pacemaker Lead into Right Ventricle, Percutaneous Approach Insertion of Pacemaker Lead into Right Ventricle, Percutaneous Approach [facility] Start: 02-12-2023 Insertion of Pacemaker, Single Chamber into Chest Subcutaneous Tissue and Fascia, Open Approach Insertion of Pacemaker, Single Chamber into Chest Subcutaneous Tissue and Fascia, Open Approach [facility] Start: 02-11-2023 Implantation of cardiac pacemaker OR Pacemaker Insertion (Not Applicable) [facility] Start: 02-10-2023 [facility] Start: 02-07-2023 Referral to associate director of biostatistics [facility] Start: 02-07-2023 Blood chemistry [facility] Start: 02-06-2023 Physical therapy procedure [facility] Start: 02-06-2023 Referral to wire stripper [facility] Start: 02-06-2023 Referral to occupational therapist [facility] Start: 02-06-2023 Hospital admission [facility] Start: 02-06-2023 [facility] Start: 10-27-2022 Hemoglobin A1c measurement A1C test (Diabetic or Prediabetic) [facility] Start: 08-21-2022 FUV, Provider: Viridiana Burgess, Status: Pen, Time: 9:20 AM FUV, Provider: Viridiana Burgess, Status: Pen, Time: 9:20 AM [facility] Heart-Sofie 250 DO Work Phone: Start: 07-24-2022 [facility] Start: 2022 Abdominal aortic aneurysm screening Abdominal Aortic Aneurysm (AAA) Screening [facility] Start: 2022 Pneumococcal Vaccine: 65+ Years (1 - PCV) Pneumococcal Vaccine: 65+ Years (1 - PCV) [facility] Start: 07-02-2022 ECHO, Provider: SOFIE [facility] ULTRASOUND 01,[id number], Status: Pen, Time: 9:45 AM ECHO, Provider: SOFIE [facility] ULTRASOUND 01,[id number], Status: Pen, Time: 9:45 AM [facility] Heart-Sofie 250 DO Work Phone: Start: 06-05-2022 [facility] Start: 05-08-2022 [facility] Start: 04-03-2022 [facility] Start: 01-27-2022 Hemoglobin A1c measurement Diabetes: Hemoglobin A1C [facility] Start: 01-25-2022 FUV, Provider: Viridiana Burgess, Status: Pen, Time: 9:40 AM FUV, Provider: Viridiana Burgess, Status: Pen, Time: 9:40 AM [facility] 250 DO Work Phone: Start: 11-16-2021 Influenza vaccination Flu vaccine (#1) [facility] Start: 11-13-2021 End: 11-13-2021 Admission to same day surgery center 11/13/2021 Surgery IP Unit Mauro Rankin MD [address] [place] [address] RIGHT INFERIOR PARATHYROIDECTOMY [facility] Comment on above: RIGHT INFERIOR PARATHYROIDECTOMY Start: 11-13-2021 End: 11-13-2021 Parathyroidectomy/explora tion parathyroids PARATHYROIDECTOMY Hyperparathyroidism (HCC) Hypercalcemia 11/13/2021 11:00 AM [facility] Start: 11-13-2021 Subsequent hospital visit by physician 11/13/2021 Hospital Encounter IP Unit Mauro Rankin MD [address] [place] [address] [facility] Start: 09-24-2021 [facility] Work Phone: Start: 09-20-[address] [facility] Work Phone: Start: 09-20-2021 Referral to addiction social worker [facility] Work Phone: Start: 09-20-2021 Referral to infectious diseases physician [facility] Work Phone: Start: 09-20-2021 Detachment at Left 1st Toe, Mid, Open Approach Detachment at Left 1st Toe, Mid, Open Approach [facility] Start: 07-27-2021 FUV, Provider: Viridiana Burgess, Status: Pen, Time: 9:30 AM FUV, Provider: Viridiana Burgess, Status: Pen, Time: 9:30 AM [facility] 250 DO Work Phone: Start: 05-31-2021 COVID-19 Vaccine (3 - Booster for Al series) COVID-19 Vaccine (3 - Booster for Al series) [facility] Start: 05-25-2021 Pneumococcal 0-64 years Vaccine (1 of 1 - PPSV23) Pneumococcal 0-64 years Vaccine (1 of 1 - PPSV23) [facility] Work Phone: Comment on above: Postponed from [birth year]/11/1961 (Patient Does Not Have Time) Start: 05-25-2021 Pneumococcal 0-64 years Vaccine (1 of 2 - PPSV23) Pneumococcal 0-64 years Vaccine (1 of 2 - PPSV23) [facility] Work Phone: Comment on above: Postponed from [birth year]/11/1961 (Patient Does Not Have Time) Start: 03-02-2021 FUV, Provider: Viridiana Burgess, Status: Pen, Time: 11:30 AM FUV, Provider: Viridiana Burgess, Status: Pen, Time: 11:30 AM [id number]-UIZ Brandi Mathur [address] [place] Work Phone: Start: 01-25-2021 FUV, Provider: Viridiana Burgess, Status: Pen, Time: 8:30 AM FUV, Provider: Viridiana Burgess, Status: Pen, Time: 8:30 AM XR-Powrmdpfmu-HCU Brandi Mathur [address] [place] Work Phone: Start: 01-25-2021 Patient encounter procedure [facility] Card[facility] Sofie Start: 01-11-2021 End: 01-12-2022 [facility] Comment on above: Enteral feedings are held 1 hour pre and post dose Start: 01-10-2021 End: 01-11-2022 [facility] Comment on above: IF patient HAS a [...] mg/dL or greater. Start: 01-10-2021 End: 01-11-2022 [facility] Comment on above: 1. Dilute 1.3 mL [...] Saline. Start: 09-09-2020 Potassium measurement Potassium Level [facility] Start: 09-05-2020 End: 09-05-2020 Patient encounter procedure 09/05/2020 Office Visit Pulmonology Ulisses Nieves MD [facility] [place] [address] [phone] [facility] Start: 08-23-2020 Creatinine measurement Creatinine Level [facility] Start: 08-05-2020 End: 08-05-2020 Patient encounter procedure 08/05/2020 Office Visit Pulmonology Ulisses Nieves MD [address] [place], [place] [id number] [facility]. Start: 07-26-2020 End: 07-26-2020 Admission to same day surgery center 07/26/2020 Surgery Endoscopy Ulisses Nieves MD [address] [place], [place] [id number] BRONCHOSCOPY WITH FLUORO [facility] Comment on above: BRONCHOSCOPY WITH FLUORO Start: 07-26-2020 Subsequent hospital visit by physician 07/26/2020 Hospital Encounter Endoscopy Ulisses Nieves MD [address] [place], [place] [id number] [facility] Start: 07-22-2020 End: 07-22-2021 COVID-19 COVID-19 Lab Routine COVID-19 ruled out by laboratory testing Expected: 07/22/2020, Expires: 07/22/2021 [facility] Phone: Comment on above: Expected: 07/22/2020, Expires: Start: 07-14-2020 End: 07-14-2020 Patient encounter procedure 07/14/2020 Office Visit Pulmonology Ulisses Nieves MD [address] [place], [place] [id number] [facility] Start: 07-05-2020 End: 07-05-2020 Admission to same day surgery center 07/05/2020 Surgery IP Unit Ulisses Nieves MD [address] [place], [place] [id number] BRONCHOSCOPY WITH FLOURO - GI SCHEDULED [facility] Comment on above: BRONCHOSCOPY WITH FLOURO - GI SCHEDULED Start: 07-05-2020 Subsequent hospital visit by physician [facility] Start: 07-02-2020 End: 07-01-2021 COVID-19 [facility] Phone: Comment on above: Expected: 07/02/2020, Expires: 2 Once for 1 Occurrenc es starting 07/02/2020 until 07/02/2020 Start: 05-19-2020 Annual Wellness Visit (AWV) Annual Wellness Visit (AWV) [facility] Phone: Start: 12-18-2019 Lipid panel Lipid Panel [facility] Start: 11-16-2018 Influenza vaccination Flu vaccine (#1) [facility] Phone: Start: 07-11-2007 Colon cancer screen colonoscopy Colon cancer screen colonoscopy [facility] Phone: Start: 07-11-2007 Screening for malignant neoplasm of colon Colon cancer screen colonoscopy [facility] Phone: Start: 07-11-2007 Shingles Vaccine (1 of 2) Shingles Vaccine (1 of 2) [facility] [employer] Start: 2002 Screening for malignant neoplasm of colon [facility] Start: 1997 Diabetes screen Diabetes screen [facility] Phone: Start: 1997 Lipid screen Lipid screen [facility] Phone: Start: 1976 DTaP/Tdap/Td vaccine (1 - Tdap) DTaP/Tdap/Td vaccine (1 - Tdap) [facility] Phone: Start: 1976 Urine screening for protein Diabetes: Urine Protein Screening [facility] Start: 07-11-1975 Hepatitis C screening [facility] Start: 1972 HIV screen HIV screen [facility] Phone: Start: 1972 HIV screening HIV screen [facility] Start: 1969 Depression Screen Depression Screen [facility] Start: 1968 DTaP/Tdap/Td vaccine (1 - Tdap) DTaP/Tdap/Td vaccine (1 - Tdap) [facility] Phone: Start: 07-11-1967 Diabetic foot examination Diabetes: Foot Exam [facility] Start: 07-11-1967 Glaucoma screening Diabetes: Retinopathy Screening [facility] Start: 07-11-1967 [facility] Start: 07-11[facility]1963 Pneumococcal 0-64 years Vaccine (1 - PCV) Pneumococcal 0-64 years Vaccine (1 - PCV) [facility] Start: 07-[facility] Pneumococcal Vaccine: 65+ Years (1 - PCV) Pneumococcal Vaccine: 65+ Years (1 - PCV) [facility] Start: 1958 MMR Vaccines (1 of 1 - Standard series) MMR Vaccines (1 of 1 - Standard series) [facility] Start: 1957 Annual wellness visit Medicare Initial Physical (IPPE) [facility] Start: 1957 Annual Wellness Visit (AWV) Annual Wellness Visit (AWV) [facility] [employer] Start: 1957 Creatinine measurement Creatinine monitoring [facility] Phone: Start: 1957 Hepatitis C screen Hepatitis C screen [facility] Phone: Start: 1957 Hepatitis C screening Hepatitis C screen [facility] Phone: Start: 1957 Potassium monitoring Potassium monitoring [facility] Phone: Start: 1957 Screening for malignant neoplasm of colon [facility] Start: 1957 Thyroid stimulating hormone measurement TSH Level [facility] Aldosterone [Mass/vo lume] in Serum or Plasma [facility] Aldosterone [Mass/vo lume] in Serum or Plasma [facility] Atrial fibrillation Atrial fibrillation [facility] Bacteria identified in Unspecified specimen by Aerobe culture [facility] Work Phone: Blood chemistry [facility] Comprehensive metabo lic 1999 panel - Serum or Plasma [facility] Work Phone: Comprehensive metabo lic 1999 panel - Serum or Plasma [facility] Comprehensive metabo lic 1999 panel - Serum or Plasma [facility] Comprehensive metabo lic 1999 panel - Serum or Plasma [facility] Comprehensive metabo lic 1999 panel - Serum or Plasma [facility] COVID-19 COVID-19 Lab Rou veronica 07/02/2020 10:28 PM EDT [facility] Work Phone: Culture with Smear, Acid Fast Bacillius [facility] Work Phone: Comment on above: Release Upon Ordering for 1 Occurrences starting 08/25/2020 Culture, Fungus [facility] Work Phone: Comment on above: Release Upon Ordering for 1 Occurrences starting 08/25/2020 [facility], [facility] Work Phone: Comment on above: Release Upon Ordering for 1 Occurrences starting 08/25/2020 Culture, Virus, Respiratory [facility] Work Phone: Comment on above: Release Upon Ordering for 1 Occurrences starting 08/25/2020 Lactate dehydrogenas e [Enzymatic activity/volume] in Unspecified specimen [facility] Work Phone: Lactate dehydrogenas e [Enzymatic activity/volume] in Unspecified specimen [facility] Patient Education [facility] Work Phone: Patient referral [facility] Work Phone: Renin [Enzymatic activity/volume] in Plasma [facility] Renin [Enzymatic activity/volume] in Plasma [facility] Superficial Wound Culture Superficial Wou nd Culture [facility] End: 08-25-2020 Surgical Pathology Surgical Pathology Lab Routine Once for 1 Occurrences starting 08/25/2020 until 08/25/2020 [facility] Work Phone: Comment on above: Once for 1 Occurrences starting 08/26/19 21 until 08/25/2020 [facility] Immunizations Immunization Date Immunization Notes Care Provider Fa cili 07-23-2022 zoster vaccine recombinant Teri Aragon [facility] Work Phone: 04-28-2022 zoster vaccine recombinant Teri Aragon Work Phone: [facility] Work Phone: 03-14-2022 Pfizer COVID-19 Vac Bivalent 30 MCG/0.3ML Intramuscular Suspension Teri Aragon Work Phone: [facility] 250 DO Work Phone: 12-15-2021 influenza, injectabl e, quadrivalent, preservative free Geeta Dumont Other [facility] Other 10-27-2021 Comirnaty 30 MCG/0.3 ML Intramuscular Suspension No PCP None LL-Lfkhyqee[facility]-VMW Brandi Mathur [address] [place] [address] Work Phone: 01-31-2021 Al COVID-19 Vaccine 0.5 ML Intramuscular Suspension Francisco Li Work Phone: [facility] 250 DO Work Phone: 12-30-2020 influenza, seasonal, injectable Geeta Dumont Other [facility] Other 12-30-2020 Seasonal, quadrivalent, recombinant, injectable influenza vaccine, preservative free Francisco Li Work Phone: [facility] 250 DO Work Phone: 05-23-2020 Al COVID-19 Vaccine 0.5 ML Intramuscular Suspension Francisco Li Work Phone: [facility] DO Work Phone: 12-20-2019 influenza, seasonal, injectable, preservative free [facility] Work Phone: 12-17-2019 influenza virus vaccine, unspecified formulation No PCP None [facility] 250 DO Work Phone: 11-30-2019 influenza, injectabl e, quadrivalent, preservative free Francisco Danny Guillermo Work Phone: [facility] 250 DO Work Phone: 12-16-2018 influenza virus vaccine, unspecified formulation No PCP None [facility] 250 DO Work Phone: 12-16-2018 influenza, seasonal, injectable Francisco Danny Guillermo Work Phone: [facility] 250 DO Work Phone: 12-15-2017 influenza, injectabl e, quadrivalent, contains preservative Francisco Delgado Guillermo Work Phone: [facility] 250 DO Work Phone: 03-22-2017 influenza virus vaccine, unspecified formulation No PCP None [facility] 250 DO Work Phone: 03-18-2008 influenza virus vaccine, unspecified formulation No PCP None [facility] 250 DO Work Phone: Payers Date Payer Category Payer Medicare [id number] 2022 Medicare [id number] 2022 Unknown [id number] 2022 Unknown 2020 Private Health Insurance [id number] 2017 Unknown [employer] [place] [address] xxxxxxxxxxxx 2017-Present [phone] [phone] xxxxxxxxxxxx [id number] .[id number] 2016 Medicare [id number] 2016 Self-pay [id number] 2014 Medicare [id number] [id number] .7.3.184204.315 1957 Unknown [id number] 2.16.840.1.071171.3.579.2 .176 1957 Unknown [id number] 2.16.840.1.039119.3.579.2 .175 1957 Unknown [id number] 2.16.840.1.161992.3.579.2 .175 1957 Unknown [id number] 2.16.840.1.383431.3.579.2 .175 1957 Unknown [id number] 2.16.840.1.312607.3.579.2 .177 1957 Unknown [id number] 2.16.840.1.920061.3.579.2 .177 1957 Unknown [id number] 2.16.840.1.118817.3.579.2 .718 1957 Unknown [id number] 2.16.840.1.017700.3.579.2 .718 1957 Unknown [id number] 2.16.840.1.112293.3.579.2 .718 1957 Unknown [id number] 2.16.840.1.660100.3.579.2 .1068 1957 Unknown [id number] 2.16.840.1.577290.3.579.2 .356 1957 Unknown [id number] 2.16.840.1.594553.3.579.2 .356 1957 Unknown [id number] 2.16.840.1.943327.3.579.2 .727 1957 Unknown [id number] 2.16.840.1.250336.3.579.2 .727 1957 Unknown [id number] 2.16.840.1.465747.3.579.2 .1244 1957 Unknown [id number] 2.16.840.1.060109.3.579.2 .124 1957 Unknown [id number] 2.16.840.1.032426.3.579.2 .125 1957 Unknown [id number] 2.16.840.1.584019.3.579.2 .1258 1957 Unknown [id number] 2.16.840.1.815986.3.579.2 .1258 1957 Unknown [id number] 2..840.1.965597.3.579.2 .1258 1957 Unknown [id number] 2.16840.1.122886.3.579.2 .1258 1957 Unknown [id number] 2.840.1.183684.3.579.2 .1259 Unknown [id number] Unknown [id number] Unknown [id number] 2.16.840.1.651294.3.579.2 .531 Unknown [id number] 2.16.840.1.429764.3.579.2 .531 Unknown [id number] 2.16.840.1.631663.3.579.2 .531 Unknown [id number] 2.16.840.1.947417.3.579.2 .531 Unknown [id number] 2.16.840.1.782471.3.579.2 .531 Unknown [id number] 2.16.840.1.589615.3.579.2 .531 Unknown [id number] 2.16.840.1.044398.3.579.2 .531 Unknown [id number] 2.16.840.1.718729.3.579.2 .531 Unknown [id number] 2.16.840.1.380296.3.579.2 .531 Unknown [id number] 2.16.840.1.892633.3.579.2 .531 Unknown [id number] 2.16.840.1.270896.3.579.2 .531 Unknown [id number] 2.16.840.1.453669.3.579.2 .531 Unknown [id number] 2..840.1.271395.3.579.2 .531 Unknown [id number] 2..840.1.111037.3.579.2 .531 Unknown [id number] 2.840.1.171081.3.579.2 .531 Unknown [id number] 2.840.1.087476.3.579.2 .531 Unknown [id number] 2..840.1.531128.3.579.2 .531 Unknown [id number] 2.840.1.995981.3.579.2 .531 Unknown [id number] 2..840.1.693549.3.579.2 .531 Unknown [id number] 2.840.1.069034.3.579.2 .531 Unknown [id number] 2.840.1.797298.3.579.2 .531 Unknown [id number] 2.840.1.973487.3.579.2 .531 Unknown [id number] 2.840.1.518430.3.579.2 .531 Unknown [id number] 2..840.1.269939.3.579.2 .531 Unknown [id number] 2..840.1.648458.3.579.2 .531 Unknown [id number] 2.840.1.430916.3.579.2 .531 Unknown [id number] 2.16.840.1.569519.3.579.2 .531 Social History Date Type Detail Facility Start: 05-12-2020 End: 12-12-2022 Tobacco smoking status NHIS Ex-smoker (finding) [facility] [employer] Start: 1955 Sex Assigned At Male F [facility] Start: 03-18-1970 End: 03-18-2006 History of tobacco use Current smoker [facility] Start: 03-18-1970 End: 03-18-2006 History of tobacco use Cigarette Smoker [facility] Start: 06-30-2020 End: 03-29-2023 Cigarettes smoked current (pack per day) - Reported [facility] Work Phone: Comment on above: 1-2 cups of coffee d aily. quart of iced tea daily.; Quit in 2006; 1 cup of coffee week barney a quart of decaf iced tea daily, diet soda rarely; Start: 06-30-2020 End: 12-12-2022 Tobacco use and exposure Never used [facility] Start: 06-30-2020 End: 10-27-2021 Alcohol intake Ex-drinker (finding) [facility] Work Phone: Start: 1955 Sex Assigned At Not on file [facility] [employer] Work Phone: Start: 10-17-2021 End: 04-17-2023 Exposure to SARS-CoV-2 (event) Not sure smsPREP Tobacco smoking consumption unknown [facility] Start: 03-29-2023 End: 04-17-2023 Sex Assigned At Yooli Other Tobacco smoking status No Smokin g Status Entered [facility] Start: 04-17-2023 Alcohol intake Lifetime non-d elza (finding) [facility] Work Phone: Start: 03-29-2023 End: 04-24-2023 Alcohol intake Current drinker of alcohol (finding) [facility] Start: 12-12-2022 Tobacco Comment Last smoked: >10 yea rs [facility] Start: 12-12-2022 Alcohol Comment caffeine: coffee [facility] Medical Equipment Procedure Code Equipment Code Equipment Origin al Text Equipment Identifier Dates Insertion, pacemaker Endocardial pacing lead [id number] FDA Start: 02-14-2023 Insertion, pacemaker Single-chamber implantable pacemaker, rate-responsive ()[id number] FDA Start: 02-14-2023 Ventriculo-perit onea l/atrial shunt valve ()[id number] FDA Start: 03-12-2021 Goals Date Patient Goal Desired Activity /State Functional Status Date Assessment Result Facility 02-15-2023 Functional status Patient Not at Baseline [facility] Work Phone: 02-10-2023 Functional status Patient at Baseline [facility] Work Phone: 09-24-2021 Functional status Patient at Baseline [facility] Work Phone: Functional observable [facility] Mental Status Date Assessment Result Facility 02-15-2023 Cognitive function Cognitive Sta tus Patient at Baseline [facility] Work Phone: 02-10-2023 Cognitive function Cognitive Sta tus Patient at Baseline [facility] Work Phone: 09-24-2021 Cognitive function Cognitive Sta tus Patient at Baseline [facility] Work Phone: 01-09-2021 Cognitive functi ons [id number] [facility] Clinical Notes 01-22-2017 to 04-24-2023 Sindi Foster [...] Acute hematogenous osteomyelitis, left ankle and foot ([facility]) 10/23/2022 Anxiety 10/23/2022 Basal cell carcinoma (BCC) of skin of right upper extremity including shoulder 10/23/2022 Hallux valgus (acquired), left foot 10/23/2022 Hammer toe 10/23/2022 Neuropathy due to type 2 diabetes mellitus ([facility]) 10/23/2022 Non-pressure chronic ulcer of other part of left foot with unspecified severity ([facility]) 10/23/2022 Osteomyelitis ([facility]) 10/23/2022 Peripheral arterial disease ([facility]) 10/23/2022 Peripheral neuropathy 10/23/2022 Polyneuropathy due to type 2 diabetes mellitus ([facility]) 10/23/2022 Skin ulcer ([facility]) 10/23/2022 Status post amputation of toe of left foot ([facility]) 10/23/2022 Type 2 diabetes mellitus with foot ulcer (CODE) ([facility]) 10/23/2022 Ulcer of lower extremity ([facility]) 10/23/2022 Skin ulcer of left great toe with fat layer exposed ([facility]) 10/23/2022 Toe ulcer, left, with fat layer exposed ([facility]) 10/23/2022 Unspecified chronic bronchitis ([facility]) 10/23/2022 Venous insufficiency (chronic) (peripheral) 10/23/2022 Atrial flutter ([facility]) 02/24/2007 Sinoatrial node dysfunction ([facility]) 06/09/2007 Centrilobular emphysema ([facility]) 05/19/2020 Chronic diastolic heart failure ([facility]) 06/09/2007 Essential hypertension ([facility]) 06/09/2007 Hemoptysis 05/19/2020 History of lymphoma 05/19/2020 Hx of amiodarone therapy 05/19/2020 Hyperlipidemia ([facility]) 04/17/2010 Hypertrophic obstructive cardiomyopathy ([facility]) 04/17/2010 ILD (interstitial lung disease) ([facility]) 05/19/2020 ZAYRA (obstructive sleep apnea) 05/20/2020 Sleep apnea 06/09/2007 Paroxysmal tachycardia, unspecified ([facility]) 06/09/2007 Syncope 08/05/2017 Memory loss 10/25/2022 Lesion of tongue 11/05/2022 Primary hyperparathyroidism ([facility]) 11/05/2022 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 ([facility]) 01/02/2023 Pharyngoesophageal dysphagia 01/02/2023 DDD (degenerative disc disease), lumbosacral 02/04/2023 Carcinoma in situ of tongue 03/20/2023 Aspiration into airway 03/20/2023 Atherosclerosis of [place] coronary artery without angina pectoris ([facility]) 02/20/2023 Chronic atrial fibrillation (HCC) ([facility]) 02/20/2023 Chronic edema 02/20/2023 COPD (chronic obstructive pulmonary disease) ([facility]) 02/20/2023 Diabetes mellitus ([facility]) 02/20/2023 High risk medication use 02/20/2023 History of B-cell lymphoma 02/20/2023 Presence of Watchman left atrial appendage closure device 02/20/2023 Status post angioplasty 02/20/2023 Resolved Ambulatory Problems Diagnosis Date Noted No Resolved Ambulatory Problems Past Medical History: Diagnosis Date A-fib ([facility]) Anemia Arthritis Bronchitis CHF (congestive heart failure) ([facility]) DVT (deep venous thrombosis) ([facility]) Gout Heart disease Hypercholesterolemia ([facility]) Hypertension ([facility]) Joint pain Large B-cell lymphoma ([facility]) Mononucleosis Pneumonia Past Surgical History: Procedure Laterality [...] 3 atorvastatin (Lipitor) 20 MG tablet biotin 15379 MCG tablet Take 1 tablet by mouth [...] BEDTIME FOLLOWING BRUSHING AND FLOSSING [DISCONTINUED] HYDROcodone-acetaminophen ([place]) 5-325 MG tablet [DISCONTINUED] metOLazone (Zaroxolyn) 5 [...] if he continues to have extraparametal symptoms. Yooli Other 01-31-2024 History of Present illness Narrative* [...] right great toe (CMS/HCC) 3. Atherosclerosis of [place] coronary artery of [place] heart without angina pectoris 4. Chronic atrial [...] of Luciana Burgess DO. documented in this [facility] Work Phone: 1([phone]) 532-994801-31-2024 Instructions* Patient Instructions* Leslie Alvarez LPN - [...] from a cardiac standpoint [facility]: 1(424) 521-340101-18-2024 Evaluation note* Encounter Date Diagnosis Assessment Notes [...] on Trazadone. Pt to call with effectiveness. Yooli Other 01-08-2024 Evaluation note* Encounter Date Diagnosis Assessment Notes Treatment Notes Treatment Clinical Notes Mar, Restless leg syndrome (ICD-10 - G25.81) Yooli Other 01-03-2024 Evaluation note* Encounter Date Diagnosis [...] verbalizes understanding and agrees to treatment plan. Yooli Other 12-27-2023 Evaluation note* Encounter Date Diagnosis Assessment Notes Treatment Notes Treatment Clinical Notes Feb, Primary hyperparathyroidism (ICD-10 - E21.0) Yooli Other 12-22-2023 Evaluation note* Encounter Date Diagnosis Assessment Notes Treatment Notes Treatment Clinical Notes Feb, Type 2 diabetes mellitus with other circulatory complication, without long-term current use of insulin (ICD-10 - E11.59) Feb, Anxiety (ICD-10 - F41.9) Yooli Other 12-19-2023 Evaluation note* Encounter Date Diagnosis [...] see above -- under congestive heart failure. Yooli Other 12-12-2023 Progress note Author Sumit De La Cruz [facility] February 26, 2023 1:09pm Note Date/Time February 26, 2023 11:48am [facility] [address] [place] [address] Wound Center Provider Note Signed Patient: Sandra Potter MR#: [id number] : 1955 Acct:[id number] Age/Sex: 67 / M Copies to: MD Teri Vu DO Tonia Copsey, APRN~ HPI Date of Visit Date of Visit: Date of Service: 02/26/2023 Time of Service: 11:44 Narrative HPI: 02/26/23 Adenike is a 67-year-old male presenting to [facility] wound care program for an initial visit [...] prefers to not stay with his current addiction social worker I did highly recommend Dr. Espinoza, and he and his do agree to this referral. We called the office and they do accept his insurance. I did decide to start topical antimicrobials such as Vashe Cleanser as well as Iodoflex dressings. [facility] nursing will be started for the [...] wound start?: November 2022 Mode of Arrival/ Grade Foreman: Family Assistive Device Used Today: Wearing Ordered Boot/Shoe Lives with:: Spouse Appetite Description: Within Normal Limits Smoking Status: Former smoker [facility] Medical History (Updated 02/26/23 @ 11:48 by [...] layer exposed Bed Appearance: Beefy Red and [place] Percent of Wound Bed Granulated/Red: 100 Percent [...] MD Sumit De La Cruz> 02/26/23 1302 [facility] Work Phone: 1([phone]) 492-117812-07-2023 Evaluation note* Encounter Date Diagnosis Assessment Notes [...] continues to have twitches and extraparametal symptoms. Yooli Other 12-04-2023 Evaluation note* Encounter Date Diagnosis [...] insert ion of cardiac resynchronization therapy pacemaker (AIRCRAFT MAINTENANCE INSTRUCTOR-P) (ICD-10 - Z45.018) Feb, Status post biventricular cardiac pacemaker insertion (ICD-10 - Z95.0) Pt is following up with wire stripper this . Pt agreed to POC Feb, [...] Hypocalcemia (ICD-10 - E83.51) Complete as ordered. Yooli Other 12-04-2023 Evaluation note* Encounter Date Diagnosis Assessment Notes Treatment Notes Treatment Clinical Notes Feb, Elevated serum free T4 level (ICD-10 - R79.89) Feb, Chronic fatigue, unspecified (ICD-10 - R53.82) Feb, Bradycardia (ICD-10 - R00.1) Yooli Other 11-26-2023 Discharge summary Author Subhash Duckworth [facility] February 10, 2023 3:01pm Note Date/Time February 10, 2023 3:02pm [facility] [address] [place] [address] Discharge Summary Signed Patient: Sandra Potter MR#: [id number] : 1955 Acct:[id number] Age/Sex: 67 / M Adm Date: 3 Loc: Room: [address] [place] [address]: Subhash Duckworth MD Copies to: [...] event monitor (Routine) Timeframe: 1 Day Facility: [facility] - Location: [address] [place] [address] - O/P Ordered By: Deanne Gaxiola Follow Up: Teri Aragon DO [Primary Care Provider] - (Call office on Saturday to schedule follow-up with your Primary Care Provider in 3-5 days. ) Documented By: Subhash Duckworth MD 02/10/23 14 51 Signed By: <Electronically signed by Subhash Duckworth MD> 02/10/23 1501 [facility] Work Phone: 1(180) 493-331511-26-2023 Progress note Author Mina Reilly [facility] February 10, 2023 2:13pm Note Date/Time February 10, 2023 2:08pm [facility] [address] [place] [address] Nephrology Progress Note Signed Patient: Sandra Potter MR#: [id number] : 1955 Acct:[id number] Age/Sex: 67 / M Adm Date: 3 Loc: 4 Room: [id number] Type: ADM IN Attending Dr: Subhash Duckworth [...] 20 Mg Tablet) 20 mg PO HS [facility] Stop: 02/06/24 21:59 Last Admin: 02/09/23 23:25 Dose: Not Given Atropine Sulfate (Atropine Sulfate 1 Mg/10 Ml Syringe) 1 mg IV-PUSH ONCE PRN PRN Reason: Bradycardia Bisacodyl (Bisacodyl 5 Mg Tablet.) 10 mg PO DAILY PRN PRN Reason: Constipation Stop: 02/06/24 16:29 Bumetanide (Bumetanide 0.5 Mg Tablet) 0.5 mg PO DAILY@0800 [facility] Stop: 02/11/24 07:59 Enoxaparin Sodium (Enoxaparin 40 Mg/0.4 Ml Syringe) 40 mg SUBCUT DAILY@10 PAT Stop: 02/07/24 09:59 Last Admin: 02/10/23 10:35 Dose: Not Given Gabapentin (Gabapentin 600 Mg Tablet) 1,200 mg PO BID PAT Stop: 02/06/24 20:59 Last Admin: 02/10/23 08:49 Dose: 1,200 mg Glipizide (Glipizide 2.5 Mg Tab.Er.24) 2.5 mg PO BID.WITH.MEALS [facility] Stop: 02/07/24 07:59 Last Admin: 02/10/23 [...] <Electronically signed by MD Mina Reilly> 02/10/23 [facility]3 [facility] Work Phone: 1([phone]) 124-630911-26-2023 Progress note Author Deanne Gaxiola [facility] February 10, 2023 11:24am Note Date/Time February 10, 2023 11:24am [facility] [address] [place] [address] Cardiology Progress Note Signed Patient: Sandra Potter MR#: [id number] : 1955 Acct:[id number] Age/Sex: 67 / M Adm Date: 3 Loc: 4 Room: [id number] Type: ADM IN Attending Dr: Subhash Duckworth [...] <Electronically signed by MD Deanne Gaxiola> 02/10/234 [facility] Work Phone: 1([phone]) 836-852511-25-2023 Progress note [facility] February 09, 2023 3:30pm Note Date/Time February 09, 2023 3:30pm [facility] [address] [place] [address] Nephrology Progress Note Signed Patient: Sandra Potter MR#: [id number] : 1955 Acct:[id number] Age/Sex: 67 / M Adm Date: 3 Loc: 4 Room: [address] [place] [address] Type: ADM IN Attending Dr: Subhash Duckworth [...] 0.5 Mg Tablet) 0.5 mg PO BID.WITH.MEALS [facility] Stop: 02/09/24 16:59 Enoxaparin Sodium (Enoxaparin 40 Mg/0.4 Ml Syringe) 40 mg SUBCUT DAILY@10 PAT Stop: 02/07/24 09:59 Last Admin: 02/09/23 09:41 Dose: 40 mg Gabapentin (Gabapentin 600 Mg Tablet) 1,200 mg PO BID PAT Stop: 02/06/24 20:59 Last Admin: 02/09/23 08:21 Dose: 1,200 mg Glipizide (Glipizide 2.5 Mg Tab.Er.24) 2.5 mg PO BID.WITH.MEALS [facility] Stop: 02/07/24 07:59 Last Admin: 02/09/23 08:21 Dose: 2.5 mg Sodium Chloride (0.9% Sodium Chloride 1,000 Ml) 1,000 mls @ 20 mls/hr IV .Q24H [facility] Stop: 02/11/24 15:59 Gentamicin Sulfate 220 [...] Juliano Conteh M.D.02/08/2023 8:21 PM Dictation Location: [place] [address] Any impression(s) listed above is documentation that [...] <Electronically signed by MD Mina Reilly> 02/09/23 865 [facility] Work Phone: 1(198) 219-487911-25-2023 Progress note Author Subhash Duckworth [facility] February 09, 2023 2:33pm Note Date/Time February 09, 2023 2:33pm [facility] [address] [place] [address] Hospitalist Progress Note Signed Patient: Sandra Potter MR#: [id number] : 1955 Acct:[id number] Age/Sex: 67 / M Adm Date: 3 Loc: 4 Room: [address] [place] [address] Type: ADM IN Attending Dr: Subhash Duckworth [...] No hematemesis, melena, or hematochezia. [facility] was [facility]adycardic with heart rate [...] <Electronically signed by Subhash Duckworth MD> 02/09/23 8623 [facility] Work Phone: 1(425) 757-417011-25-2023 Progress note Author Deanne Gaxiola [facility] February 09, 2023 10:43am Note Date/Time February 09, 2023 10:35am [facility] [address] [place] [address] Cardiology Progress Note Signed Patient: Sandra Potter MR#: [id number] : 1955 Acct:[id number] Age/Sex: 67 / M Adm Date: 3 Loc: Room: [address] [place] [address] Type: ADM IN Attending Dr: Subhash Duckworth [...] signed by MD Deanne Gaxiola> 02/09/23 1043 [facility] Work Phone: 1([phone]) 248-593811-24-2023 Consult note Author Mina Reilly [facility] February 08, 2023 1:01pm Note Date/Time February 08, 2023 1:02pm [facility] [address] [place] [address] Nephrology Consult Note Signed Patient: Sandra Potter MR#: [id number] : 1955 Acct:[id number] Age/Sex: 67 / M Adm Date: 3 Loc: Room: [address] [place] [address] Type: ADM IN Attending Dr: Barry Cisneros [...] and no additional complaints, except as documented [facility] Medical History (Updated 02/08/23 @ 12:53 by [...] 300 Mg Tablet) 300 mg PO DAILY [facility] Stop: 02/07/24 08:59 Last Admin: 02/08/23 08:31 Dose: 300 mg Aspirin (Aspirin 81 Mg Tablet.) 81 mg PO [facility] Stop: 02/06/24 21:59 Last Admin: 02/07/23 21:26 Dose: 81 mg Atorvastatin Calcium (Atorvastatin 20 Mg Tablet) 20 mg PO [facility] Stop: 02/06/24 21:59 Last Admin: 02/07/23 21:26 [...] 2.5 Mg Tab.Er.24) 2.5 mg PO BID.WITH.MEALS [facility] Stop: 02/07/24 07:59 Last Admin: 02/08/23 08:30 Dose: 2.5 mg Levothyroxine Sodium (Levothyroxine 25 Mcg Tablet) 25 mcg PO DAILY@0630 [facility] Stop: 02/07/24 06:29 Last Admin: 02/08/23 [...] 40 Mg Tablet.) 40 mg PO BID [facility] Stop: 02/06/24 20:59 Last Admin: 02/08/23 [...] physician into a diagnostic report(s) for Sandra oPtter. I have reviewed the report(s) and am [...] signed by MD Mina Reilly> 02/08/23 1301 [facility] Work Phone: 1(337) 409-588111-24-2023 Progress [facility] February 08, 2023 12:42pm Note Date/Time February 08, 2023 10:23am [facility] [address] [place] [address] Hospitalist Progress Note Signed with Camila Patient: Sandra Potter MR#: [id number] : 1955 Acct:[id number] Age/Sex: 67 / M Adm Date: 3 Loc: 4P Room: [id number] Type: ADM INOo Attending Dr: Barry Cisneros [...] signed by Barry Cisneros MD> 02/08/23 1023 [facility] Work Phone: 1(195) [phone] Progress note Author Deanne Gaxiola [facility] February 08, 2023 11:45am Note Date/Time February 08, 2023 11:38am [facility] [address] [place] [address] Cardiology Progress Note Signed Patient: Sandra Potter MR#: [id number] : 1955 Acct:[id number] Age/Sex: 67 / M Adm Date: 3 Loc: Room: [address] [place] [address] Type: ADM INOo Attending Dr: Barry Cisneros [...] signed by MD Deanne Gaxiola> 02/08/23 1145 [facility] Work Phone: 1(121) 660-322611-23-2023 Progress note Author Mina Reilly [facility] February 07, 2023 2:32pm Note Date/Time February 07, 2023 2:32pm [facility] [address] [place] [address] Event Note Signed Patient: Sandra Potter MR#: [id number] : 1955 Acct:[id number] Age/Sex: 67 / M Adm Date: 3 Loc: Room: 6Z1957-1 Type: ADM INOo Attending Dr: Barry Cisneros [...] signed by MD Mina Reilly> 02/07/23 1432 [facility] Work Phone: 1(775) 545-742111-23-2023 Consult note Author Deanne Gaxiola [facility] February 07, 2023 2:05pm Note Date/Time February 07, 2023 1:52pm [facility] [address] [place] [address] Cardiology Consult Note Signed Patient: Sandra Potter MR#: [id number] : 1955 Acct:[id number] Age/Sex: 67 / M Adm Date: 3 Loc: Room: [address] [place] [address] Type: ADM INOo Attending Dr: Barry Cisneros MD Copies to: MD Teri Patle DO Mourhaf A Traboulssi, MD~ Cardiology HPI [...] Saturday. The possibility of transferring him to [place] for pacemaker tomorrow discussed with the patient for social and family situation would prefer to stay here till Saturday to have the pacemaker done locally 2. Hold potassium replacement Tortal K less than 5 3. Check echocardiogram Documented By: Deanne Gaxiola MD 02/07/23 1350 Signed By: <Electronically signed by MD Deanne Gaxiola> 02/07/23 2065 [facility] Work Phone: [phone]) 177-323411-23-2023 Progress note Author Barry Cisneros [facility] February 07, 2023 11:08am Note Date/Time February 07, 2023 11:08am [facility] [address] [place] [address] Hospitalist Progress Note Signed Patient: Sandra Potter MR#: [id number] : 1955 Acct:[id number] Age/Sex: 67 / M Adm Date: 3 Loc: Room: 1S3468-7 Type: ADM INOo Attending Dr: Barry Cisneros [...] <Electronically signed by Barry Cisneros MD> 02/07/238 [facility] Work Phone: 1(269) 405-384311-22-2023 History and physical note Author Barry Cisneros [facility] February 06, 2023 4:29pm Note Date/Time February 06, 2023 4:20pm [facility] [address] [place] [address] Hospitalist H&P Signed Patient: Sandra Potter MR#: [id number] : 1955 Acct:[id number] Age/Sex: 67 / M Adm Date: 3 Loc: ER Room: Type: [facility] ER Attending Dr: Copies to: MD Bobby [...] with heart rate went to the 30s. [facility] Medical History (Updated 02/06/23 @ 16:22 by [...] % (Auto) 16.3 % (.) 02/06/23 13:05 [place] % (Auto) 10.8 % (.) 02/06/23 13:05 Eos % (Auto) 5.4 % (.) 02/06/23 13:05 Baso % (Auto) 0.9 % (.) 02/06/23 13:05 Nucleat RBC Rel Count 0.1 /100 WBC (0-0.5) 02/06/23 13:05 Neut # (Auto) 3.7 x10E3/uL (1.8-7.7) 02/06/23 13:05 Lymph # (Auto) 0.9 x10E3/uL (1.00-4.8) L 02/06/23 13:05 [place] # (Auto) 0.6 x10E3/uL (0.0-0.8) 02/06/23 13:05 [...] pH 5.5 (5.0-9.0) 02/06/23 12:56 Ur Specific [place] 1.010 (1.001-1.030) 02/06/23 12:56 Urine Protein Negative [...] signed by Barry Cisneros MD> 02/06/23 1629 [facility] Work Phone: 1(441) 728-524211-22-2023 History and physical note Author Barry Cisneros [facility] February 06, 2023 4:29pm Note Date/Time February 06, 2023 4:20pm [facility] [address] [place] [address] Hospitalist H&P Signed Patient: Sandra Potter MR#: [id number] : 1955 Acct:[id number] Age/Sex: 67 / M Adm Date: 3 Loc: ER Room: Type: [facility] ER Attending Dr: Copies to: MD Bobby [...] with heart rate went to the 30s. [facility] Medical History (Updated 02/06/23 @ 16:22 by [...] % (Auto) 16.3 % (.) 02/06/23 13:05 [place] % (Auto) 10.8 % (.) 02/06/23 13:05 Eos % (Auto) 5.4 % (.) 02/06/23 13:05 Baso % (Auto) 0.9 % (.) 02/06/23 13:05 Nucleat RBC Rel Count 0.1 /100 WBC (0-0.5) 02/06/23 13:05 Neut # (Auto) 3.7 x10E3/uL (1.8-7.7) 02/06/23 13:05 Lymph # (Auto) 0.9 x10E3/uL (1.00-4.8) L 02/06/23 13:05 [place] # (Auto) 0.6 x10E3/uL (0.0-0.8) 02/06/23 13:05 [...] pH 5.5 (5.0-9.0) 02/06/23 12:56 Ur Specific [place] 1.010 (1.001-1.030) 02/06/23 12:56 Urine Protein Negative [...] signed by Barry Cisneros MD> 02/06/23 1629 [facility] Work Phone: 1(901) 238-449109-27-2023 Evaluation note* Encounter Date Diagnosis Assessment Notes Treatment Notes Treatment Clinical Notes Nov, Chronic venous insufficiency (ICD-10 - I87.2) Yooli Other 08-31-2023 Note [id number]:127[facility] 10-11-2022 Evaluation note* Encounter Date Diagnosis [...] with Rheumatology. He is also now following [facility] Dr. Ding-- neurosurgery. Sep, Osteoarthritis of spine [...] self every morning before breakfast and inform wire stripper if weight increases more than 2 pounds [...] occurs. Patient will continue to follow with director of cardiology service line. Specialty notes reviewed as received. Sep, Shortness [...] no improvement and will trial on Trazadone. Yooli Other 07-14-2023 Evaluation note* Encounter Date Diagnosis Assessment Notes Treatment Notes Treatment Clinical Notes Sep, Low serum potassium level (ICD-10 - E87.6) [facility] Other 06-28-2023 Evaluation note* Encounter Date Diagnosis [...] to MRI due to anxiety and claustrophobia. [facility] Other 06-26-2023 Evaluation note* Encounter Date Diagnosis Assessment Notes Treatment Notes Treatment Clinical Notes Aug, Situational anxiety (ICD-10 - F41.8) [facility] Other 06-20-2023 Evaluation note* Encounter Date Diagnosis [...] or radiculopathy, lumbar region (ICD-10 - M47.816) [facility] Other 06-13-2023 Evaluation note* Encounter Date Diagnosis [...] Will call with resutls and further recommendations. [facility] Other [facility]* Encounter Date Diagnosis Assessment Notes Treatment Notes Treatment Clinical Notes Jun, Cervical back pain with evidence of disc disease (ICD-10 - M50.90) [facility] Other 03-30-2023 Evaluation note* Encounter Date Diagnosis [...] note writ ten by Shantanu Li LPN, E Commerce Manager. Edited and approved by Dr. Lavon Sandoval MD. [facility] Other 03-02-2023 Evaluation note* Encounter Date Diagnosis [...] note writ ten by Shantanu Li LPN, E Commerce Manager. Edited and approved by Dr. Lavon Sandoval MD. [facility] Other 02-09-2023 Evaluation note* Encounter Date Diagnosis [...] note writ ten by Sunday Melara MA, E Commerce Manager. Edited and approved by Dr. Lavon Sandoval [...] negative findings were considered in medical decision-making. [facility] Other 02-03-2023 Evaluation note* Encounter Date Diagnosis Assessment Notes Treatment Notes Treatment Clinical Notes Apr, Type 2 diabetes mellitus with other circulatory complication, without long-term current use of insulin (ICD-10 - E11.59) [facility] Other 01-16-2023 Evaluation note* Encounter Date Diagnosis [...] (ICD-10 - M1A.9XX0) Stable, no gout attacks. [facility]ool[facility] Other 12-19-2022 Evaluation note* Encounter Date Diagnosis Assessment Notes Treatment Notes Treatment Clinical Notes Feb, Acquired hypothyroidism (ICD-10 - E03.9) [facility] Other 10-17-2022 Evaluation note* Encounter Date Diagnosis Assessment Notes Treatment Notes Treatment Clinical Notes Dec, Claustrophobia (ICD-10 - F40.240) Yool[facility] Other 10-06-2022 Progress note Author Sima Wagner [facility] December 21, 2021 9:07am Note Date/Time December 21, 2021 9: 07am [facility] [address] [place] [address] Wound Center Provider Note Signed Patient: Sandra Potter MR#: [id number] : 1955 Acct:[id number] Age/Sex: 66 / M Copies to: Pete Begum,FILIPE, MS, CWS Geeta Dumont, GOLDEN, RETORT SETTER Sima Wagner, GOLDEN~ HPI Date of Visit Date of Visit: Date of Service: 12/21/2021 Time of Service: 08:58 Narrative HPI: 12/21/21 Adenike is a 66-year-old male presenting to [facility] wound care program lakisha initial visit for [...] wound start?: October 2021 Mode of Arrival/ Grade Foreman: Personal vehicle Lives with:: Spouse Appetite Description: Within Normal Limits Who helps w/ dressing change?: Self Smoking Status: Former smoker [facility] Medical History (Updated 12/21/21 @ 09:06 by [...] extends to tendon,bone Bed Appearance: Beefy Red, [place] and Yellow Percent of Wound Bed Granulated/Red: [...] <Electronically signed by GOLDEN Wagner> 12/21/21 0907 [facility] Work Phone: 1(368) 509-159909-30-2022 Evaluation note* Encounter Date Diagnosis Assessment Notes [...] Nov, Encounter for immunization (ICD-10 - Z23) [facility] Other 09-15-2022 Evaluation note* Encounter Date Diagnosis Assessment Notes Treatment Notes Treatment Clinical Notes Nov, Other chronic pain (ICD-10 - G89.29) Nov, Cervical back pain with evidence of disc disease (ICD-10 - M50.90) [facility] Other 09-12-2022 Evaluation note* Encounter Date Diagnosis [...] verbalizes understanding and agrees c tx plan. [facility] Other 08-15-2022 Evaluation note* Encounter Date Diagnosis [...] any SOB, chest pain or exertional dyspnea. [facility] Other 07-25-2022 Evaluation note* Encounter Date Diagnosis Assessment Notes Treatment Notes Treatment Clinical Notes Sep, Hypokalemia (ICD-10 - E87.6) [facility] Other 07-15-2022 Evaluation note* Encounter Date Diagnosis [...] foot (ICD-10 - M86.172) Left great toe [facility] Other 06-14-2022 Note [id number]06-07-2022 Evaluation note* Encounter Date Diagnosis Assessment Notes [...] understanding and agrees with plan of care. Yooli Other 03-28-2022 Evaluation note* Encounter Date Diagnosis [...] fluid intake monitor your intake and output. [facility] Other 12-13-2021 Note From: Kathi Spangler ([facility] ([facility] To: Francisco Li DO; Sent: 02/27/2021 07:26:47 EST Subject: FW: Medication Management Due Date/Time: 02/27/2021 22:32:00 EST From: [employer] To: Francisco Li DO Sent: February 25, 2021 9:32:13 PM FISH HATCHERY LABORER Subject: Medication Management Due: February 26, 2021 12:32:03 AM FISH HATCHERY LABORER On Hold Pending Signature Drug: glipiZIDE (glipiZIDE 2.5 mg oral tablet, extended release), TAKE 1 TABLET BY MOUTH TWICE DAILY Quantity: 180 tab(s) Days Supply: 90 Refills: 3 Substitutions Allowed Notes from Pharmacy: - First Attempt Ref: [id number] Dispensed Drug: glipiZIDE (glipiZIDE 2.5 mg oral tablet, extended release), TAKE 1 TABLET BY MOUTH TWICE DAILY Quantity: 180 tab(s) Days Supply: 90 Refills: 3 Substitutions Allowed Notes from Pharmacy: Requesting 1 year supply From: Francisco Li DO To: [employer] Sent: 02/27/2021 07:31:43 EST Subject: FW: Medication Management Submitted: Complete:glipiZIDE (glipiZIDE 2.5 mg oral tablet, extended release) Signed by Francisco Li DO 02/27/2021 07:31:00 EST Approved glipiZIDE (GLIPIZIDE 2.5MG TAB XL) TAKE 1 TABLET BY MOUTH TWICE DAILY Qty: 180 tab(s) Days Supply: 90 Refills: 3 Substitutions Allowed Route To Pharmacy - [employer] [facility] [facility]: [id number] Note From: Kathi Spangler ([facility] ([facility])) To: Francisco Li DO; Sent: 02/15/2021 07:39:49 EST Subject: FW: Medication Management Due Date/Time: 02/15/2021 23:39:00 EST Patient matched by Kathi Spangler on 02/15/2021 07:39:43 EST From: [employer] To: Francisco Li DO Sent: February 14, 2021 10:39:16 PM FISH HATCHERY LABORER Subject: Medication Management Due: February 15, 2021 5:07:44 PM FISH HATCHERY LABORER On Hold Pending Signature Drug: omeprazole (omeprazole 40 mg oral delayed release capsule), TAKE 1 CAPSULE BY MOUTH TWICE DAILY Quantity: 180 cap(s) Days Supply: 90 Refills: 3 Substitutions Allowed Notes from Pharmacy: - First Attempt Ref: [id number] Dispensed Drug: Omeprazole 40 MG Oral Capsule [...] Notes from Pharmacy: - First Attempt Ref: [id number] Dispensed Drug: levothyroxine (levothyroxine 50 mcg (0.05 mg) oral tablet), TAKE 1 TABLET BY MOUTH DAILY Quantity: 90 tab(s) Days Supply: 90 Refills: 3 Substitutions Allowed Notes from Pharmacy: Requesting 1 year supply From: Francisco Li DO To: [employer] [facility] [facility] Sent: 02/15/2021 07:59:23 EST Subject: [...] SERVICE Note from Pharmacy[facility] [facility] [id number] Progress note Author Sandra Danielson [facility] November 10, 2020 10:56am Note Date/Time November 10, 2020 10 :41am [facility] [place] [address] Hem/Onc Follow Up Note - OP Signed Patient: Sandra Potter MR#: [id number] : 1955 Acct:[id number] Age/Sex: 65 / M Type: REG RCR [...] arthroplasty in ; Sleevegastrectomy in 2011 at [facility]. FAMILY HISTORY: One brother, one son and no cancer. One paternal aunt had unknown type of cancer in her age of 70s. 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 Former smoker with a 100 pack-year smoking [...] He had CT chest in 02/[address] [facility] 11/09/20 had bronchoscopy at [facility] in august. told it was scar tissue. [...] for coordination of care (as documented) and lujq-oe-bxah counseling of patient and/or family. [facility] - Medical History Medical History: Medical History [...] by Sandra Danielson II, DO> 11/10/20 1056 [facility] Work Phone: [phone]) 886-316406-10-2021 History of Present illness Narrative* Jacey Rizvi RN - 08/25/2020 2:02 PM EDT Discharge instructions reviewed with pt. Pt verb understanding. documented in this [facility] Work Phone: 1([phone]) 995-714906-10-2021 Hospital Discharge instructions* Instructions* Ulisses Nieves MD [...] QUESTIONS, PLEASE CALL YOUR DOCTOR OR THE [facility] AT [phone]. Bronchoscopy: What to Expect at Home Your [...] your doctor if you can take an ksub-uiw-sckxppw medicine. ? If you think your pain [...] Where can you learn more? Go to [email or web address] and sign in to your FreshGrade account. Enter S288 in the Search Health Information box to learn more about Bronchoscopy: What to Expect at Home. If you do not have an account, please click on the Sign Up Now link. Current as of: July 27, 2016 Content Version: 11.5 0574-8546 [employer]. Care instructions adapted under license by [employer]. If youhave questions about a medical condition or this instruction, always ask your healthcare professional. [employer] disclaims any warranty or liability for your use of this information. documented in this [facility]source [facility] Work Phone: 1(535) 488-753802-25-2021 Progress note Author Brendan Bolaños [facility] May 12, 2020 1:33pm Note Date/Time May 12, 2020 1:27pm [facility] [place] [facility] at [address] [address] Hem/Onc Follow Up Note - OP Signed Patient: Sandra Potter MR#: [id number] : 1955 Acct:[id number] Age/Sex: 64 / M Type: REG RCR [...] He had CT chest in 02/[address] [facility], was told that there was no [...] arthroplasty in ; Sleevegastrectomy in 2011 at [facility]. FAMILY HISTORY: One brother, one son and no cancer. One paternal aunt had unknown type of cancer in her age of 70s. 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 Former smoker with a 100 pack-year smoking [...] MUSCULOSKELETAL: Positive for chronic joint pain, stable. [facility] - Medical History Medical History: Medical History [...] have personally reviewed his CT chest at [facility], no evidence of disease. Hemoptysis is [...] for coordination of care (as documented) and skzp-ky-xadj counseling of patient and/or family. Dictated By: Brendan Bolaños MD DD/ 1326 Signed By: <Electronically signed by Brendan Bolaños MD> 05/12/20 1333 [facility] Work Phone: [phone]) 252-324508-27-2020 Progress note Author Brendan Bolaños [facility] November 12, 2019 4:58pm Note Date/Time November 12, 2019 3: 09pm [facility] [place] [facility] at [place] [id number] Hem/Onc Follow Up Note - OP Signed Patient: Sandra Potter MR#: [id number] : 1955 Acct:[id number] Age/Sex: 64 / M Type: REG RCR [...] arthroplasty in ; Sleevegastrectomy in 2011 at [facility]. FAMILY HISTORY: One brother, one son and no cancer. One paternal aunt had unknown type of cancer in her age of 70s. 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 Former smoker with a 100 pack-year smoking [...] % (Auto) 71.2, Lymph % (Auto) 12.0, [place] % (Auto) 12.1, Eos % (Auto) 4.0, Baso % (Auto) 0.7, Neut # (Auto) 4.4, Lymph # (Auto) 0.7 L, [place] # (Auto) 0.7, Eos # (Auto) 0.2, [...] for coordination of care (as documented) and ttls-jt-cmbl counseling of patient and/or family. Dictated By: Brendan Bolaños MD DD/ 1509 Signed By: <Electronically signed by Brendan Bolaños MD> 11/12/19 1658 [facility] Work Phone: [phone]) 700-155305-12-2020 Progress note Author Brendan Bolaños [facility] July 28, 2019 2:56pm Note Date/Time July 28, 2019 11:[address] [facility] [address] Hem/Onc Follow Up Note - OP Signed Patient: Sandra Potter MR#: [id number] : 1955 Acct:[id number] Age/Sex: 64 / M Type: REG RCR [...] arthroplasty in ; Sleevegastrectomy in 2011 at [facility]. FAMILY HISTORY: One brother, one son and no cancer. One paternal aunt had unknown type of cancer in her age of 70s. 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 Former smoker with a 100 pack-year smoking [...] index finger paronychia on antibiotics and improving. [facility] - Medical History Medical History: Medical History [...] 7 Days 07/28/19 10:34: PHA Creatinine Clear 81.1796579611, Sodium 134 L, Potassium 3.6,Chloride 97, Carbon [...] for coordination of care (as documented) and bqpc-lm-ptub counseling of patient and/or family. Dictated By: Brendan Bolaños MD DD/ 1112 Signed By: <Electronically signed by Brendan Bolaños MD> 07/28/19 6967 [facility] Work Phone: [phone]) [phone] Progress note Author Brendan Bolaños [facility] January 27, 2019 10:13am Note Date/Time January 27, 2019 9:57am [facility] [address] Hem/Onc Follow Up Note - OP Signed Patient: Sandra Potter MR#: [id number] : 1955 Acct:[id number] Age/Sex: 63 / M Type: REG RCR [...] arthroplasty in ; Sleevegastrectomy in 2011 at [facility]. FAMILY HISTORY: One brother, one son and no cancer. One paternal aunt had unknown type of cancer in her age of 70s. 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 Former smoker with a 100 pack-year smoking [...] index finger paronychia on antibiotics and improving. [facility] - Social History Smoking Status: Former smoker [...] 7 Days 01/24/19 11:48: PHA Creatinine Clear 61.0695710872, Sodium 142, Potassium 4.4, Chloride 101, Carbon [...] % (Auto) 63.0, Lymph % (Auto) 15.6, [place] % (Auto) 15.8, Eos % (Auto) 4.5, Baso % (Auto) 1.1, Neut # (Auto) 3.3, Lymph # (Auto) 0.8 L, [place] # (Auto) 0.8, Eos # (Auto) 0.2, [...] for coordination of care (as documented) and mjyl-rt-axdg counseling of patient and/or family. Dictated By: Brendan Bolaños MD DD/ 0955 Signed By: <Electronically signed by Brendan Bolaños MD> 01/27/19 1013 [facility] Work Phone: [phone] Progress note Author Brendan Bolaños [facility] August 27, 2018 9:42am Note Date/Time August 27, 2018 9:[address] [facility] [address] Hem/Onc Follow Up Note - OP Signed Patient: Sandra Potter MR#: [id number] : 1955 Acct:[id number] Age/Sex: 63 / M Type: REG RCR [...] arthroplasty in ; Sleevegastrectomy in 2011 at [facility]. FAMILY HISTORY: One brother, one son and no cancer. One paternal aunt had unknown type of cancer in her age of 70s. 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 Former smoker with a 100 pack-year smoking [...] for coordination of care (as documented) and kmyt-hx-ivbr counseling of patient and/or family. Dictated By: Brendan Bolaños MD DD/ Signed By: <Electronically signed by Brendan Bolaños MD> 08/27/18 0942 [facility] Work Phone: [phone] Progress note Author Brendan Bolaños [facility] August 19, 2018 10:20am Note Date/Time August 19, 2018 10:[address] [facility] [address] Hem/Onc Follow Up Note - OP Signed Patient: Sandra Potter MR#: [id number] : 1955 Acct:[id number] Age/Sex: 63 / M Type: REG RCR [...] arthroplasty in ; Sleevegastrectomy in 2011 at [facility]. FAMILY HISTORY: One brother, one son and no cancer. One paternal aunt had unknown type of cancer in her age of 70s. 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 Former smoker with a 100 pack-year smoking [...] 7 Days 08/13/18 13:50: PHA Creatinine Clear 73.2325771265, Sodium 144, Potassium 3.7, Chloride 103, Carbon [...] % (Auto) 67.9, Lymph % (Auto) 13.9, [place] % (Auto) 13.0, Eos % (Auto) 4.7, Baso % (Auto) 0.5, Neut # (Auto) 3.9, Lymph # (Auto) 0.8 L, [place] # (Auto) 0.7, Eos # (Auto) 0.3, [...] for coordination of care (as documented) and rqav-lx-rgos counseling of patient and/or family. Dictated By: Brendan Bolaños MD DD/ 1014 Signed By: <Electronically signed by Brendan Bolaños MD> 08/19/18 1020 [facility] Work Phone: [phone] Progress note Author Brendan Bolaños [facility] July 22, 2018 12:33pm Note Date/Time July 22, 2018 8:59am [facility] [address] Hem/Onc Follow Up Note - OP Signed with Addenda Patient: Sandra Potter MR#: [id number] : 1955 Acct:[id number] Age/Sex: 63 / M Type: REG RCR [...] arthroplasty in ; Sleevegastrectomy in 2011 at [facility]. FAMILY HISTORY: One brother, one son and no cancer. One paternal aunt had unknown type of cancer in her age of 70s. 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 Former [...] 7 Days 07/17/18 10:18: PHA Creatinine Clear 70.7929243675, Sodium 139, Potassium 4.4, Chloride 99, Carbon [...] % (Auto) 65.4, Lymph % (Auto) 14.5, [place] % (Auto) 13.9, Eos % (Auto) 5.3, Baso % (Auto) 0.9, Neut # (Auto) 3.3, Lymph # (Auto) 0.7 L, [place] # (Auto) 0.7, Eos # (Auto) 0.3, [...] for coordination of care (as documented) and cjum-nw-ydox counseling of patient and/or family. Dictated By: Brendan Bolaños MD DD/ 0858 Signed By: <Electronically signed by Brendan Bolaños MD> 07/22/18 1043 [facility] Work Phone: [phone] Progress note Author Danya Quach [facility] February 04, 2018 4:01pm Note Date/Time February 04, 2018 3:10pm [facility] [place] [facility] at [place] [id number] Hem/Onc Follow Up Note - OP Signed Patient: Sandra Potter MR#: [id number] : 1955 Acct:[id number] Age/Sex: 62 / M Type: REG RCR [...] for cardiac issues. On Keflex from [facility] (last or Saturday) for finger [...] arthroplasty in ; Sleevegastrectomy in 2011 at [facility]. FAMILY HISTORY: One brother, one son and no cancer. One paternal aunt had unknown type of cancer in her age of 70s. 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 Former smoker with a 100 pack-year smoking [...] % (Auto) 65.4, Lymph % (Auto) 14.0, [place] % (Auto) 15.6, Eos % (Auto) 4.1, Baso % (Auto) 0.9, Neut # (Auto) 3.6, Lymph # (Auto) 0.8 L, [place] # (Auto) 0.9 H, Eos # (Auto) [...] Date of Service: 01/31/18 XR/XR chest 2V*: CORRECTION MED USE Copies to: Stephanie Burgess, ~ [...] 1350 Dictated By: Norm Pulido MD 01/31/18 1340 Assessment and Plan (1) DLBCL (diffuse large [...] for coordination of care (as documented) and kezy-zt-inpl counseling of patient and/or family. Dictated By: Danya Quach MD DD/ 1510 Signed By: <Electronically signed by Danya Quach MD> 02/04/18 1601 [facility] Work Phone: [phone] Progress note Author Brendan Bolaños [facility] July 30, 2017 10:01am Note Date/Time July 30, 2017 9:31a m [facility] [address] Hem/Onc Follow Up Note - OP Signed Patient: Sandra Potter MR#: [id number] : 1955 Acct:[id number] Age/Sex: 62 / M Type: REG RCR [...] arthroplasty in ; Sleevegastrectomy in 2011 at [facility]. FAMILY HISTORY: One brother, one son and no cancer. One paternal aunt had unknown type of cancer in her age of 70s. 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 25 - 35 minutes Dictated By: Brendan Bolaños MD DD/ 0930 Signed By: <Electronically signed by Brendan Bolaños MD> 07/30/17 1001 [facility] Work Phone: [phone] Progress note Author Brendan Bolaños [facility] April 30, 2017 6:01pm Note Date/Time April 30, 2017 4:16pm [facility] [place] [facility] [place] [id number] Hem/Onc Follow Up Note - OP Signed Patient: Sandra Potter MR#: [id number] : 1955 Acct:[id number] Age/Sex: 61 / M Type: REG RCR [...] for coordination of care (as documented) and hwpp-dw-vouf counseling of patient and/or family. 25 - 35 minutes Dictated By: Brendan Bolaños MD DD/ 1615 Signed By: <Electronically signed by Brendan Bolaños MD> 04/30/17 1808 [facility] Work Phone: [phone] Progress note Author Brendan Bolaños [facility] January 22, 2017 1:16pm Note Date/Time January 22, 2017 1 :06pm [facility] [address] Hem/Onc Follow Up Note - OP Signed Patient: Sandra Potter MR#: [id number] : 1955 Acct:[id number] Age/Sex: 61 / M Type: REG RCR [...] for coordination of care (as documented) and egoh-nk-rtup counseling of patient and/or family. 25 - 35 minutes Dictated By: Brendan Bolaños MD DD/ 1305 Signed By: <Electronically signed by Brendan Bolaños MD> 01/22/17 1316 [facility] Work Phone: Chief complaint Narrative - ReportedSANDRA POTTER is being seen for a cardiovascular evaluation . ENA.ZV-Tnmguosrxf-EZN Brandi Mathur [address] [place] Work Phone: Evaluation + Plan note No data available for this section [facility]* Diagnosis Preop testing- Primary Preoperative examination, unspecified documented in this encounter [facility] Phone: evaluation note* Diagnosis COVID-19 ruled out by laboratory testing- Primary documented in this encounter [facility] Phone: evalhswnmj note* Constitutional: Well developed, awake/alert/oriented x3, no [...] oriented x3.Psychological: Appropri ate mood and behavior [facility]* Diagnosis Cough Hemoptysis Hemoptysis, unspecified SOB (shortness of breath) Shortness of breath documented in this encounter [facility] Phone: evalqrbdzx note* Diagnosis SOB (shortness of breath) Shortness of breath Hemoptysis Hemoptysis, unspecified documented in this encounter [facility] Phone: evalcmovxw noteNo [employer] Other Evaluation note* Diagnosis Onset Date Resolution [...] without comorbidity) chronic Peripheral neuropathy chroni c [facility] Work Phone: Evaluation note* Diagnosis Onset [...] 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 [facility] Work Phone: Evaluation noteNo assessment information available [facility] Work Phone: evaluation note* Diagnosis Onset Date Resolution Status Diabetes 1.5, managed as type 2 acute Hypercalcemia acute A-fib chronic CHF (congestive heart failure), NYHA class I chronic CKD (chronic kidney disease) stage 3, GFR 30-59 ml/min chronic 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 Joint pain chronic Obesity (BMI 35.0-39.9 without comorbidity) chronic Peripheral neuropathy chroni c [facility] Work Phone: Evaluation note* Diagnosis Onset [...] (hypertension) chronic Obesity (BMI 35.0-39.9 without comorbidity) [facility] Work Phone: Evaluation note* Diagnosis [...] Type 2 diabetes mellitus with peripheral neuropathy [facility] Work Phone: Evaluation note* Diagnosis [...] Generalized weakness acute Symptomatic bradycardia acut e [facility] Work Phone: Evaluation note* Diagnosis Onset [...] without comorbidity) chronic Peripheral neuropathy chroni c [facility] Work Phone: Evaluation note* Diagnosis Preoperative clearance Unspecified pre-operative examination Amputation of right great toe (CMS/HCC) Atherosclerosis of [place] coronary artery of [place] heart without angina pectoris Chronic atrial fibrillation (CMS/HCC) Atrial fibrillation Mild hypertrophic obstructive cardiomyopathy (CMS/HCC) Status post angioplasty Postsurgical percutaneous transluminal coronary angioplasty status Hyperlipidemia, unspecified hyperlipidemia type Essential hypertension Unspecified essential hypertension Presence of Watchman left atrial appendage closure device Former smoker Personal history of tobacco use, presenting hazards to health documented in this encounter [facility] Work Phone: Evaluation note* Diagnosis Malignant neoplasm [...] 12/06 Hospitalization History No know Hospitalization history [facility] Other history general Narrative - Reported* Type [...] Surgical History 12/06 Hospitalization History No Hospitalization Extend Labs Other history general Narrative - Reported* Type [...] amputation 0 09/2021 Hospitalization History No Hospitalization Extend Labs Other history general Narrative - Reported* Type [...] amputation 0 09/2021 Hospitalization History No Hospitalization Extend Labs Other history general Narrative - Reported* Type [...] Hospitalization History No Hospitalization histo ry information [facility] Other history general Narrative - Reported* Type [...] amputation 12/2021 Hospitalization History see surgical hx [facility] Other history general Narrative - Reported* Type [...] History gastric sleeve Hospitalization History see surgical [facility]ooli Other Graphdivewzwz general Narrative - Reported* Type Description Date [...] cardiac pacemeker 2022 Hospitalization History see surgical Yooli Other Graphdivehyfo general Narrative - Reported* Type Description Date [...] HYPERCALCEMIA 02/08/2023 Hospitalization History PACEMAKER PLACEMENT 01/17 [facility] Other History of Present illness Narrative* PCP: [...] atrial appendage closure for stroke risk reduction. BM-Abnfsjktbq-ZMS Brandi Mathur [address] [place] Work Phone: Hospital [...] have any concerns, you may contact the Filter Helper orif any of these symptoms become excessive, contact your wire stripper or go to the emergency room. No tub baths, soaking, or swimming for one week. May shower the next day after your procedure. * Follow Up Appointment 1:Physician/Dept/Service: Primary CardiologyCall to Schedule in: 1-2 weeksComments: Please follow-up with your Primary Financial Data Analyst in 1-2 weeks after your Watchman procedure * Follow Up Appointment 2:Physician/Dept/Service: 45 day post-Watchman imaging (AYESHA or CTA) Zfvvhthj: You will have imaging (AYESHA or CTA) around the 45 day juliano. Please contact Jo Burris if you have not been notified of this appointment in 2-3 weeks [facility] No data available for this section [facility] note Author [facility] November 10, 2021 3:20pm Note Date/Time November 10, 2021 10 :40am [facility] at [address] [address] Hem/Onc Follow Up Note - OP Signed Patient: Sandra Potter MR#: [id number] : 1955 Acct:[id number] Age/Sex: 66 / M Type: REG RCR [...] arthroplasty in ; Sleevegastrectomy in 2011 at [facility]. FAMILY HISTORY: One brother, one son and no cancer. One paternal aunt had unknown type of cancer in her age of 70s. 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 Former smoker with a 100 pack-year smoking [...] He had CT chest in 02/[address] [facility] 11/09/20 had bronchoscopy at [facility] in [place]. told it was scar tissue. [...] for coordination of care (as documented) and bnzy-ct-cdnc counseling of patient and/or family. [facility] - Medical History Medical History: Medical History [...] % (Auto) 63.7, Lymph % (Auto) 15.5, [place] % (Auto) 12.3, Eos % (Auto) 7.6, Baso % (Auto) 0.9, Neut # (Auto) 4.1, Lymph # (Auto) 1.0, [place] # (Auto) 0.8, Eos # (Auto) 0.5 [...] <Electronically signed by GOLDEN Del Rosario> 11/10/21 7308 [facility] Work Phone: Progress note No data [...] Documents on File Type Date Recorded Patient Center Punch Operator Expl anation ACP-Advance Directive ACP-Power of Clinical Pharmacy Specialist Documents on File Type Date Recorded Patient Center Punch Operator Expl anation ACP-Advance Directive ACP-Power of Clinical Pharmacy Specialist Documents on File Type Date Recorded Patient Center Punch Operator Expl anation Advance Directives and Living Will Power of Clinical Pharmacy Specialist Advance Directive Response Recorded Date/ Time Advance [...] Heart Monitor upon Discharge low heart rate [facility] Follow Up R53.83;M79.89;E83.42;E87.6;E87.5;M10.09;M15.0;Z79. Renal Hosp F/U [...] Heart Monitor upon Discharge low heart rate [facility] Follow Up R53.83;M79.89;E83.42;E87.6;E87.5;M10.09;M15.0;Z79. Renal Hosp F/U [...] Contact Diagnoses Preoperative clearance Chronic atrial fibrillation ([facility]) Procedures ECG 12 Lead Viridiana Burgess, DO [address] [facility], [address] [address] Referral ID Status Reason Start Date Expiration Date V isits Requested Visits Authorized [id number] Authorized 04/17/2023 04/16/2024 1 1 Specialty Diagnoses / Procedures Referred By Serafin membreno Referred To Contact Cardiology Diagnoses Amputation of right great toe ([facility]) Procedures Follow Up In Cardiology Viridiana Burgess, DO [facility] [facility], [place]adeo [address] [place] [address] Shameka Melara, MARINE EQUIPMENT SALES ENGINEER-RETORT SETTER [address] [facility] [address], [address] [address] Referral ID Status Reason Start Date Expiration Date V isits Requested Visits Authorized [id number] Authorized 04/17/2023 04/16/2024 1 1 Reason eval and treat for t hyroid disorder Diagnosis 1 Elevated serum free T4 level (R79.89) Diagnosis 2 Chronic fatigue, uns pecified (R53.82) Diagnosis 3 Bradycardia (R00.1) Referral Organization [facility] Family Medicin e [place] Referring Provider First Name Ingris Referring Provider Last Name Munira Referring Provider Specialty Clinical Nu rse Specialist Referred Organization [facility] Endocrinology Referred Provider Kevin Alfredo Referred Address [address],[facility] ,[place], [place],[address] Referred Provider Specialty Internal Med icine Referral Priority Routine General Notes Madelaine Cutler 07/2022 09:09:07 AM >Patient does not want to see Juni and will be seeing Jae in regards Reason *FU 10/22 evaluate Diagnosis 1 Lesion of tongue (K1 4.8) Referral Organization [facility] Referring Provider First Name Geeta Referring Provider Last Name Rohrbacher Referring Provider Specialty Nurse Pract itioner Referred Organization [facility] Referred Provider Sindi Foster Referred Address ,[place], [place],[address] Referred Provider Specialty Ear, Nose an d [...] 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01) Referral Organization [facility] [place] Referring Provider First Name Geeta Referring Provider Last Name Derekacher Referring Provider Specialty Nurse Pract itioner Referred Organization [facility] Referred Provider Wei Soto Referred Address ,[place], [place],[address] Referred Provider Specialty Neurology Referral Priority Routine [...] section and content) DATE CREATED AUTHOR 10/03/2017 [facility] DATE CREATED AUTHOR AUTHOR'S ORGANIZ ATION 07/06/2020 [facility] DATE CREATED AUTHOR AUTHOR'S ORGANIZ ATION 10/10/2020 [facility] DATE CREATED AUTHOR AUTHOR'S ORGANIZ ATION 09/20/2021 [facility] dical Specialist DATE CREATED AUTHOR AUTHOR'S ORGANIZ ATION 11/07/2021 [facility]spital DATE CREATED AUTHOR AUTHOR'S ORGANIZ ATION 12/15/2021 [facility] DATE CREATED AUTHOR AUTHOR'S ORGANIZ ATION 07/04/2022 [facility] DATE CREATED AUTHOR AUTHOR'S ORGANIZ ATION 09/08/2022 [facility] Center DATE CREATED AUTHOR AUTHOR'S ORGANIZ ATION 09/08/2022 [facility] DATE CREATED AUTHOR AUTHOR'S ORGANIZ ATION 12/20/2022 [facility] DATE CREATED AUTHOR AUTHOR'S ORGANIZ ATION 04/21/2023 [facility] DATE CREATED AUTHOR AUTHOR'S ORGANIZ ATION 04/25/2023 [facility] dical Specialists EPIC DATE CREATED AUTHOR AUTHOR'S ORGANIZ ATION 04/26/2023 [facility] Reason for Visit (unrecogniz ed section and content) Status Reason Specialty Diagnoses / Procedures Referre d By Contact Referred To Contact Diagnoses Hemostasis disorder (HCC) Lung disease HEMOSTASIS, INTERSTITIAL LUNG DISEASE, HISTORY OF AMIODARONE THERAPY Procedures OR OFFICE/OUTPT VISIT,PROCEDURE ONLY OR BRNCHSC INCL FLUOR GDNCE DX W/CELL WASHG SPX BRONCHOSCOPY WITH Ulisses Saini MD [address] [address] [facility] Status Reason Specialty Diagnoses / Procedures Referre d By Contact Referred To Contact Diagnoses Hemoptysis Cough Shortness of breath Procedures CT CHEST W/O CONTRAST [facility] Reason Comments Follow-up 6 months, POC Specialty Diagnoses / Procedures Referred By Serafin membreno Referred To Contact Diagnoses Preoperative clearance Chronic atrial fibrillation (CMS/HCC) Procedures ECG 12 Lead Viridiana Burgess DO [address] [place] [address] Referral ID Status Reason Start Date Expiration Date V isits Requested Visits Authorized [id number] Authorized 04/17/2023 04/16/2024 1 1 Reason Comments [...] Care Teams (unrecognized sec tion and content) Jewel Supervisor Relationship Specialty Start Date End Date [...] Primary Care Provider Active Geeta Dumont APRN SUPERINTENDENT MECHANICAL-C Attending Provider Act boogie Team Status: Active [...] APRN Attending Provider Active Geeta Dumont APRN SUPERINTENDENT MECHANICAL-C Primary Care Provider Active Team Status: Inactive Member Role Status Dates Pete Begum DPM Attending Provider Active PHYSICIAN NO FAMILY Primary Care Provider Active Team Status: Active Member Role Status Dates Geeta Dumont APRN SUPERINTENDENT MECHANICAL-C Primary Care Provider Active Team Status: Inactive Member Role Status Dates Geeta Dumont , MARINE EQUIPMENT SALES ENGINEER SUPERINTENDENT MECHANICAL-C Primary Care Provider, Attending Provider Active Team Status: Inactive Member Role Status Dates Geeta Dumont , [employer]INE EQUIPMENT SALES ENGINEER SUPERINTENDENT MECHANICAL-C Primary Care Provider Active Joana Farooq NP-C Attending Provider Active W Nannette Burgess DO Referring Provider Active Team Status: Inactive Member Role Status Dates Geeta Ernnadezr , MARINE EQUIPMENT SALES ENGINEER SUPERINTENDENT MECHANICAL-C Primary Care Provider Active Dario Bolden DPM Attending Provider Active Team Status: Inactive Member Role Status Dates Geeta Dumont , [employer]INE E[employer]IPMENT SALES ENGINEER SUPERINTENDENT MECHANICAL-C Primary Care Provider Active Arron Valverde MD Attending Provider Active Team Status: Inactive Member Role Status Dates Geeta Dumont , MARINE EQUIPMENT SALES ENGINEER SUPERINTENDENT MECHANICAL-C Primary Care Provider Active Lavon Sandoval MD Attending Provider Active Team Status: Inactive Member Role Status Dates Geeta Dumont , MAR[employer] E[employer]IPMENT SALES ENGINEER SUPERINTENDENT MECHANICAL-C Primary Care Provider Active Sabino Ding MD Attending Provider Active Team Status: Inactive Member Role Status Dates Geeta Reedmarian , [employer] E[employer]IPMENT SALES ENGINEER SUPERINTENDENT MECHANICAL-C Primary Care Provider Active Stephanie Burgess DO Attending Provider Active Team Status: Active Member Role Status Dates NON STAFF Primary Care Provider Active Team Status: Inactive Member Role Status Dates Geeta Dumont , MAR[employer] E[employer]IPMENT SALES ENGINEER SUPERINTENDENT MECHANICAL-C Attending Provider Act boogie NON STAFF Primary Care Provider Active Team Status: Inactive Member Role Status Dates NON STAFF Primary Care Provider Active Teri Ybarra MD Attending Provider Active Team Status: Inactive Member Role Status Dates NON STAFF Attending Provider Active Team Status: Inactive Member Role Status Dates Vivian Choulazarus , MARINE EQUIPMENT SALES ENGINEER Attending Provider Acti ve Team Status: Inactive [...] MD Other Provider Active Naomi Greenfield , [facility]- Other Provider Active Kelsea Yancey MD [...] MD Other Provider Active Naomi Greenfield , [facility]- Other Provider Active Kelsea Yancey MD [...] MS Attending Provider Active Geeta Dumont APRN SUPERINTENDENT MECHANICAL-C Primary Care Provider Active Team Status: Inactive Member Role Status Dates Teri Aragon DO Primary Care Provider Active Sima Wagner APRN Attending Provider Active Team Status: Active Member Role Status Dates Geeta Dumont APRN SUPERINTENDENT MECHANICAL-C Primary Care Provider Active Sindi Foster Jr, MD Attending Provider Active Team Status: Inactive Member Role Status Dates Geeta Dumont APRN SUPERINTENDENT MECHANICAL-C Primary Care Provider Active Sindi Foster Jr, [...] End: February 10, 2023 Naomi Greenfield , [facility]- Other Provider Active Sta rt: February [...] 2023 End: February 18, 2023 Joana Farooq SUPERINTENDENT MECHANICAL-C Other Provider Active St art: February 18, [...] Member Role Status Dates Geeta Dumont APRN SUPERINTENDENT MECHANICAL-C Attending Provider Act boogie Start: March 05, 2023 End: March 05, 2023 Team Status: Inactive Member Role Status Dates Geeta Dumont APRN SUPERINTENDENT MECHANICAL-C Primary Care Provider, Attending Provider Active Start: March 07, 2023 End: March 07, 2023 Team Status: Inactive Member Role Status Dates Geeta Dumont APRN SUPERINTENDENT MECHANICAL-C Attending Provider Act boogie Start: March 20, 2023 End: March 20, 2023 Team Status: Inactive Member Role Status Dates Alton Espinoza DPM MS Attending Provider Active Start: March 20, 2023 End: March 20, 2023 Geeta Dumont APRN SUPERINTENDENT MECHANICAL-C Primary Care Provider Active Start: March 20, 2023 End: March 20, 2023 Team Status: Inactive Member Role Status Dates Alton Espinoza DPM MS Attending Provider Active Start: March 22, 2023 End: March 22, 2023 Geeta Dumont APRN SUPERINTENDENT MECHANICAL-C Primary Care Provider Active Start: March 22, 2023 End: March 22, 2023 Team Status: Inactive Member Role Status Dates Geeta Dumont APRN SUPERINTENDENT MECHANICAL-C Primary Care Provider Active Start: March End: March 27, 2023 Sindi Foster Jr, MD Attending Provider Active Start: March 27, 2023 End: March 27, 2023 Team Status: Inactive Member Role Status Dates Geeta Dumont APRN SUPERINTENDENT MECHANICAL-C Primary Care Provider, Attending Provider Active Start: April 04, 2023 End: April 04, 2023 Jewel Supervisor Relationship Specialty Start Date End Date NetoTeri amezquita [address] [place] [address] PCP - General Family Medicine 02/08/23 Team Status: Inactive Member Role Status Dates Geeta Dumont APRN SUPERINTENDENT MECHANICAL-C Primary Care Provider Active Start: March End: April 17, 2023 Mina Reilly MD Attending Provider Active Star t: April 17, 2023 End: April 17, 2023 Jewel Supervisor Relationship Specialty Start Date End Date Geeta Dumont NP [address] [place] [address] PCP - General Family Medicine 10/24/22 Jewel Supervisor Relationship Specialty Start Date End Date Geeta Dumont NP [address] [place] [address] PCP - General Family Medicine 10/24/22 Goals [...] BE BASED ON THE PRIMARY CLINICAL RECORDS. [employer] provides no warranty or guarantee of the accuracy or completeness of information in this document.
[2023-04-29 10:07] VITALS: BP 145/86; PULSE 75; RESP 20; TEMP 36.2; O2SAT 97; BMI 34.1
[2023-05-13] VITALS (15 sets, daily range): BP systolic 120–178; BP diastolic 85–115; PULSE 62–75; RESP 12–22; TEMP 36.1; O2SAT 93–100; BMI 35.6
--- OUTSIDE RECORDS SUMMARY | 2023-05-13 07:54 | XMS_ITS | CCD ---
Author Name Unknown Address [address] [place] [address] Organization [facility] Care Team Providers Care Imaging Scheduler Name Role Phone MARTÍNEZ, ESSENCE Unavailable Unavailable FRANCISCO LI Unavailable Unavailable MARTÍNEZ, ESSENCE Unavailable Unavailable MARTÍNEZ, ESSENCE Unavailable Unavailable FRANCISCO LI Unavailable Unavailable PAULA FAJARDO Unavailable Unavailabl e FRANCISCO LI Unavailable Unavailable MARTÍNEZ, ESSENCE Unavailable Unavailable MARTÍNEZ, ESSENCE Unavailable Unavailable FRANCISCO LI Unavailable Unavailable Francisco Li Primary Care Provider Brendan Bolaños Attending Provider Russell Li MD Primary Care Provider JUSTIN RAO Referring Unavailable RUSSELL LI Primary Care Unavailable Russell Li MD Primary Care Provider [phone] AVASTHI, ULISSES Admitting Unavailable AVASTHI, ULISSES Attending Unavailable GUILLERMORUSSELL Primary Care Unavailable AVASTHI, MARGARET Referring Unavailable RUSSELL LI Primary Care Unavailable AVASTHI, ULISSES Admitting Unavailable AVASTHI, ULISSES Attending Unavailable AVASTHI, MARGARET Referring Unavailable GUILLERMORUSSELL Primary Care Unavailable Francisco Li Unavailable Francisco iL Unavailable Francisco Garcia Unavailable Unavailable Viridiana Burgess Unavailable Unavailable Unavailable Russell Li MD Primary Care Provider [phone] Geeta Dumont Unavailable [phone] None, No PCP Unavailable Unavailable Unavailable Unavailable Russell Li MD Primary Care Provider RUSSELL LI Primary Care Unavailable DEVI, TABENT S Referring Unavailable DEVI, TABENT S Referring Unavailable GUILLERMORUSSELL H Primary Care Unavailable Guillermo Francisco Primary Care Provider [phone] GOLDEN Dumont Attending Provider [phone] DREW Farooq Attending Provider FILIPE Lal Attending Provider [phone] NO FAMILY, PHYSICIAN Primary Care Provider Unava ilMD Fannie Hunter Admit Provider FILIPE Lal Referring Provider DO Teri Aragon Primary Care Provider [phone] MD Shirley Persaud Attending Provider [phone] MD Casey Bhardwaj Other Provider FILIPE Begum Other Provider MD Estee Han Attending Provider [phone] DO Sandra Danielson II Attending Provider DO [...] Attending Provider GOLDEN Dumont Primary Care Provider Daroi Bolden Primary Care Physician NO FAMILY, PHYSICIAN Primary Care Provider GOLDEN Gomez Attending Provider Teri Aragon Unavailable GOLDEN Dumont Primary Care Provider GOLDEN Dumont Attending Provider DREW Farooq Attending Provider DO Stephanie Burgess Referring Provider GOLDEN Dumont Primary Care Provider MD Arron Valverde Attending Provider FILIPE Bolden Attending Provider [phone] Unavailable Unavailable MD Lavon Sandoval Attending Provider [...] Care Provider MD Lavon Sandoval Attending Provider [phone] MD Sabino Ding Attending Provider [phone] DO Stephanie Burgess Attending Provider Sabino Ding Unavailable Aundrea, Dr[facility], Dr. Viridiana Alvarado Referring Unava ilable Aditya, Dr. Viridiana Alvarado Attending Unava ilhawa Burgess, Dr. Viridiana Alvarado Attending Unava ilable Aundrea, Dr. Teri Reyes Primary Care [facility] Aditya, Dr. Viridiana Alvarado Referring Unava ilable NON STAFF Primary Care Provider GOLDEN Catalan Primary Care Provider MD Teri Ybarra Attending Provider GOLDEN Dumont Primary Care Provider GOLDEN Dumont Attending Provider NON STAFF Attending Provider Unavailable Ingris Lombardo [...] Jr Attending Provider FILIPE Carver Attending Provider [phone] DO Bobby Bernabe Emergency Provider [phone] MD Barry Cisneros Admit Provider MD Barry Cisneros Attending Provider [phone] ADELINA Schneider Other Provider Unavailable DO Stephanie Burgess Other Provider MD Elroy Werner Other Provider MD Viridiana Thompson Other Provider MD Deanne Gaxiola Other Provider MD Garry Rivera Other Provider GOLDEN Melchor Other Provider MD Rosemary Rodriguez Other Provider MD Anthony Floresammsamuel Peña Other Provider MD Ariane Ramsey Other Provider [facility] Naomi Garrett Other Provider MD Kelsea [...] MD Ariane Ramsey Other Provider [place] [employer]- Naomi Garrett Other Provider MD Kelsea Yancey Other Provider [phone] MD Mina Reilly Other Provider MD Subhash Duckworth Attending Provider MD Deanne Gaxiola Attending Provider SOFIA Zeng Emergency Provider MD Polly Velasquez Admit Provider MD Polly Velasquez Attending Provider GOLDEN Lombardo Attending Provider MD Subhash Duckworth Referring Provider DREW Farooq Other Provider [phone] Mina Reilly Unavailable Prashant Salinas Unavailable DO Teri Aragon Primary Care Provider GOLDEN Wagner Attending Provider GOLDEN Dumont Primary Care Provider GOLDEN Dumont Attending Provider FILIPE Espinoza Attending Provider Teri Aragon DO Primary Care Provi richmond DO Teri Aragon Primary Care Provider MD Sindi Foster Jr Attending Provider BrooklynvaMD Mina Gonzales Attending Provider TERI ARAGON Primary Care Unava ilable VIRIDIANA BURGESS Attending Unavailable TERI ARAGON Primary Care Unava ilable ADENIKEMIS, SINDI H Attending Unavailable WEI SOTO Attending Unavailable SINDI FOSTER H Attending Unavailable WEI SOTO Attending Unavailable DARIO BOLDEN Attending Unavailable DARIO BOLDEN Attending Unavailable Rohrbacher Geeta ECRON A Primary Care Provider Unavailable Joana Farooq Consulting Unavailable Ingris Lomabrdo Attending Unavailable Subhash Duckworth Referring Unavailable [facility] Primary Care Unavailable Ingris Lombardo Admitting Unavailable Timmis Jr, Sindi H Attending Unavailable [facility] Primary Care Unavailable Timmis Jr, Sindi H Admitting Unavailable CharissarbacherGeeta Admitting Unavailable CharissarbacherGeeta Attending Unavailable Charissaache, [facility] Care Unavailable [facility] Care Unavailable Sima Wagner Attending Unavailable Sima Wagner Admitting Unavailable Derekacher, [facility] Primary Care Unavailable Lavon Sandoval Admitting Unavailable Lavon Sandoval Attending Unavailable [facility] Unavailable Trabalyssai, Mourhaf Admitting Unavailable Trabnuria Mosuhashaf Attending Unavailable [facility] Unavailable Willieowicz II, Sandra J Admitting Unavaila ble Adamowicz II, Sandra J Attending Unavaila ble [facility] Unavailable Lavon Sandoval Attending Unavailable Lavon Sandoval Admitting Unavailable [facility] Unavailable Polly Velasquez Attending Unavailable Alla Schneider Consulting Unavailable Polly Velasquez Admitting Unavailable Stephanie Burgess Consulting Unavailable Elroy Werner Consulting Unavailable Viridiana Thompson Consulting Unavail able Trabnuria, Mourhaf Consulting Unavailable Garry Rivera Consulting Unavailab Shameka Bo Consulting Unavailable Rosemary Rodriguez Consulting Unavailable Yeny Flores Consulting Unavailab Ariane Be Consulting Unavailable Naomi Greenfield Consulting Unavailable Kelsea Yancey Consulting Unavailable Derekacher, Geeta Primary Care Unavailable Lavon Sandoval Admitting Unavailable Lavon Sandoval Attending Unavailable [facility] Unavailable Rohrbacher, Geeta Admitting Unavailable Rohrbacher, Geeta Attending Unavailable Highlander, Alton Higgins Attending Unavailable Highlander, Peter D Admitting Unavailable Rohrbacher, Geeta Primary Care Unavailable Rohrbacher, Geeta Primary Care Unavailable Elashi, Essam Admitting Unavailable Elashi, Essam Attending Unavailable Timmis Jr, Sindi H Admitting Unavailable Timmis Jr, Sindi H Attending Unavailable Rohrbacher, Geeta Primary Care Unavailable Rohrbacher, Geeta Attending Unavailable Rohrbacher, Geeta Primary Care Unavailable Rohrbacher, Geeta Admitting Unavailable BrownDario A Attending Unavailable Braniecki, Teri Primary Care [...] Teri Admitting Unavailable Ybarra, Teri Attending Unavailable Subhash Duckworth Attending Unavailable Branalenacki, Teri Primary Care Unavailable Alla Schneider Consulting Unavailable Barry Cisneros Admitting Unavailable Stephanie Burgess Consulting Unavailable Elroy [...] Unavail able Vivian Del Rosario Attending Unavail DO Teri Young Primary Care Provider [phone] Unavailable Unavailable Unavailable Allergies Allergy Classification Reported Allergen(s) Allergy Type Date of Onset Reaction(s) Facility Angiotensin Converting Enzyme (NUBIA) Inhibitors (4 sources) Lisinopril Drug Allergy 0 Other (See Comments), Swelling, Anaphylaxis [facility] Calcium Channel Blockers (4 sources) dilTIAZem Drug Allergy 0 Itching, Other (See Comments), Palpitations [facility] Opioid Agonists (4 sources) Morphine Drug Allergy 1 Other (See Comments), Palpitations [facility] (20 sources) dilTIAZem; Translations: [diltiazem] Drug Allergy 0 Itching, Other (See Comments), Palpitations, Unknown [facility] (20 sources) Lisinopril; Translations: [lisinopril] Drug Allergy 0 hives, Other (See Comments), Swelling, Anaphylaxis [facility] (20 sources) Morphine; Translations: [morphine] Drug Allergy 1 hives, Other (See Comments), Palpitations, Unknown [facility] (20 sources) Angiotensin Converting Enzyme (Nubia) Inhibitors; Translations: [NUBIA Inhibitors] Allergy to drug (finding) 3 Unknown [facility] [employer] [address] [place] Work Phone: (20 sources) Morphine Derivatives; Translations: [Morphine Derivatives] Allergy to drug (finding) [facility] [employer] [address] [place] Work Phone: (1 source) Angiotensin-conv erting enzyme inhibitor agent Drug Allergy 3 Unknown [facility] Medications Current Medications Medication Drug Class(es) Dates [...] Agonist Start: 12-07-2022 End: 04-24-2023 HYDROcodone-acetami nophen ([place]) 5-325 MG tablet Start: 09-24-2021 End: 11-10-2021 take 1 tablet by mouth every four hours Hydrocodone-Acetaminophen Discontinued 1 TAB PO Q4H 7 7 September 24, 2021 November 10, 2021 11:37am [id number] 200 actuat albuterol 0.09 mg/actuat metered dose [...] or milk. atomoxetine 25 mg oral capsule (7 sources) Norepinephrine Reuptake Inhibitor Start: 03-28-19 End: 03-27-19 25 take 25 mg by mouth once daily Atomoxetine Active 25 MG PO Daily April 29, 2023 12:00am atorvastatin 20 mg oral tablet (20 sources) HMG-CoA Reductase Inhibitor Start: 09-14-19 22 take 20 mg by mouth at bedtime [...] oral tablet (20 sources) Start: 11-27-2022 take 78616 ug by mouth once daily Biotin Active 14222 MCG PO Daily November 26, 2022 11:00pm take 1 tablet by mouth in the mo rning biotin 00170 MCG tablet Take 1 tablet by mouth in the morning and 1 tablet before bedtime. 0 Active take 1 tablet by mouth twice nadia ly Biotin 23534 MCG 1 tablet Orally TWICE A DAY Active take 1 tablet by mouth once elisabet y Biotin 55578 MCG 1 tablet Orally Once a day Active Biotin Active bumetanide 0.5 mg oral tablet (20 sources) Loop Diuretic Start: 04-30-2023 take 2.5 mg by mouth twice daily Bumetanide Active 2.5 MG PO Twice daily April 30, 2023 10:02am Start: 04-29-2023 End: 04-30-2023 take 2 mg by mouth twice daily Bumetanide Discontinued 2 MG PO Twice daily April 29, 2023 10:30am April 30, 2023 10:04am Start: 02-10-2023 End: 04-29-2023 take 0.5 mg by mouth once daily Bumetanide Discontinue d 0.5 MG PO DAILY@0800 30 February 10, 2023 12:00am April 29, 2023 10:39am Start: 12-24-2016 End: 02-10-2023 take 4 mg by mouth once daily in the morning Bumetanide Discontinued 4 MG PO Every morning December 23, 2016 11:00pm February 10, 2023 2:49pm Start: 12-24-2016 take 1 tablet by fito th in the morning bumetanide (Bumex) 2 MG tablet Take 2 mg by mouth in the morning. 0 12/12/2022 Active take 1 tablet by fito th every twelve hours Bumetanide 2 MG 1 tablet Orally bid for 90 days Active take 5 tablets by mo uth once daily bumetanide (Bumex) 0.5 mg tablet Take 5 tablets (2.5 mg) by mouth once daily. 0 Active busPIRone hydrochloride 10 mg oral tablet (12 sources) Start: 04-29-2023 take 10 mg by mouth three times daily Buspirone Active 10 MG PO Three times daily April 29, 2023 12:00am Start: 03-12-2023 End: 04-27-2023 take 1 tablet [...] completed) Cholecalciferol (20 sources) Vitamin D Start: 022 take 4000 [IU] by mouth once daily Cholecalciferol (Vitamin D3) Active 4000 UNIT PO Daily September 20, 2021 12:00am Start: 09-20-2021 take 4000 [IU] by [facility] once daily Cholecalciferol (Vitamin D3) Active 4000 UNIT PO Daily September 19, 2021 11:00pm Start: 09-20-2021 take 4000 [IU] by [facility] once daily Cholecalciferol (Vitamin D3) Active 4000 [...] Active Start: 01-01-2022 take 1 tablet by fito every twenty-four hours diazePAM 5 MG 1 tablet as needed Orally Once a day for 1 days Dec, Not-Taking docusate sodium 50 mg / sennosides, shelter 8.6 mg oral tablet (9 sources) Start: 02-06-2023 take 2 tablets by [...] Substitution Allowed FLUoxetine 20 mg oral capsule (14 sources) Serotonin Reuptake Inhibitor Start: 04-29-2023 take 20 mg by mouth twice daily Fluoxetine Active 20 MG PO Twice daily April 29, 2023 12:00am Start: 03-20-2023 take 1 capsule by [facility] in the morning FLUoxetine (PROzac) 20 MG capsule Take 20 mg by mouth in the morning. 0 03/20/2023 Active Start: 03-05-2023 take 1 capsule by [facility] every twenty-four hours FLUoxetine HCl 10 MG 1 capsule Orally Once a day for 30 days Feb, Active take 1 capsule by [facility] every twenty-four hours FLUoxetine HCl 20 MG [...] 03, 2022 12:00am take 1 tablet by ftio th every twenty-four hours in the morning [...] (20 sources) take 2 tablets by mo [facility] twice daily Magnesium 250 MG [...] 23, 2016 11:00pm [facility] magnesium oxide 400 mg (241.3 mg elemental magnesium) oral tablet ; 1 tab(s) orally once a day Quantity: 0 Refills: 0 Ordered: 15-Jul-2015 Jennifer Burta Generic Substitution Allowed methylPREDNISolone 4 mg oral tablet (2 sources) Corticosteroid Start: 11-27-2021 methylPREDNISolone 4 MG as directed Orally daily for 6 days Nov, Active Multivitamin preparation (1 source) take 1 tablet by mouth once daily Multiple Vitamins oral tablet ; 1 tab(s) orally once a day Quantity: 0 Refills: 0 Ordered: 15-Jul-2015 Ukely Christiana Generic Substitution Allowed omeprazole 40 mg [...] a day for 5 day(s) Sep, Active microencapsulated potassium chloride 20 meq extended release oral tablet (20 sources) Start: 04-29-2023 take 3 tablets by mouth twice daily in the morning, then take 2 tablets by mouth twice daily in the evening Potassium Chloride (Klor-Con M20) 20 mEq tablet,ER particles/crystals Active 0 PO Twice daily April 29, 2023 10:33am 3 tablets in the AM and 2 tablets in the PM orally twice daily; Start: 02-10-2023 End: 04-29-2023 Potassium Chloride (Klor-Con M20) 20 mEq Tablet,Er Particles/Crystals Discontinued 40 MEQ PO Three times daily February 10, 2023 12:00am April 29, 2023 10:39am Start: 04-03-2022 End: 02-10-2023 take 200 mEq [...] was confirmed w/ the patient. Prescribed per [employer]y employee Dr. Burgess in [place]. 0 Active Potassium Chlori de Active potassium [...] day Quantity: 0 Refills: 0 Ordered: 15-Jul-2015 Carmel Christiana Status: Other Generic Substitution Allowed rivaroxaban 20 mg oral tablet (20 sources) Factor Xa Inhibitor Start: 7 take 10 mg by mouth once daily Rivaroxaban (Xarelto) 20 mg Tablet Active 10 MG PO Daily December 24, 2016 1:57pm Start: 12-24-2016 End: 09-20-2021 take 1 tablet by mouth once daily Rivaroxaban (Xarelto) 20 mg Tablet Discontinued 20 MG PO Daily December 23, 2016 11:00pm September 20, 2021 6:07pm sertraline 100 mg oral tablet (1 source) Serotonin Reuptake Inhibitor Zoloft 100 mg oral tablet ; orally Quantity: 0 Refills: 0 Ordered: 15-Jul-2015 Christiana Burt Status: Other Generic Substitution Allowed 1000 ml sodium chloride 9 mg/ml injection (1 source) Start: 08-26-19 21 0.9 % sodium chloride infusion spironolactone 25 mg oral tablet (20 sources) Aldosterone Antagonist Start: 02-11-20 End: 04-29-19 24 take 25 mg by mouth twice daily Spironolactone Active 25 MG PO Twice daily April 29, 2023 10:35am Start: 01-23-2023 End: 01-23-2024 take 25 mg by mouth once daily Spironolactone Disconti nued 25 MG PO Daily February 06, 2023 12:00am February 10, 2023 2:49pm Start: 12-05-2022 take 1 tablet by fito once daily Spironolactone 25 MG Oral Tablet TAKE 1 TABLET DAILY. Quantity: 30 Refills: 1 Ordered: 05-Dec-2022 Viridiana Burgess DO Start : 05-Dec-2022 Active Stool Softener (20 sources) Stool Softener A ctive thiamine 100 mg oral tablet (20 sources) Start: 12-05-2022 End: 12-05-2023 take 1 tablet by mouth once daily Thiamine Hcl (Vitamin B1) (Vitamin B-1) 100 mg Tablet Active 100 MG PO Daily February 06, 2023 12:00am take 1 tablet by mouth once elisabet [...] before bedtime. 0 10/15/2022 Active Start: 11-30-2021 End: 04-29-2023 take 4 mg by mouth three times daily Tizanidine Active 4 MG PO Three times daily April 29, 2023 10:36am traZODone hydrochloride 50 mg oral tablet (5 sources) Serotonin Reuptake Inhibitor Start: 04-29-2023 take 1-2 tablets by mouth once daily at bedtime Trazodone Active 50 MG PO Daily at bedtime April 29, 2023 12:00am 1-2 tablet at bedtime as needed Start: 04-04-2023 take 1-2 tablets by mouth once daily at bedtime as needed traZODone HCl 50 MG 1-2 tablet at bedtime as needed Orally Once a day for 30 days Mar, Active 24 HR viloxazine 100 MG Extended Release Oral Capsule [Qelbree] (3 sources) take 2 capsules by m outh every twenty-four hours Qelbree 100 MG 2 capsules Orally Once a day Active Vitamin D3 (20 sources) Vitamin D3 Activ e Completed/Discontinued Medications Medication Drug Class(es) Dates Sig (Normalized) Sig (Original) acetaminophen 325 mg / oxyCODONE hydrochloride 5 mg oral tablet (20 sources) Opioid Agonist Start: 02-15-2023 End: 04-30-2023 take 1 tablet by mouth every six hours Oxycodone-Acetamino phen Discontinued 1 TAB PO Q6H 18 February 15, 2023 April 30, 2023 10:04am Start: 02-15-2017 End: 04-21-2017 take 2 tablets by mouth every four to six hours Oxycodone-Acetaminophen (Percocet) 5-325 mg tablet Discontinued 2 TAB PO EVERY 4-6 HOURS 10 Greg 1st, 2017 February 4th, 2018 8:28am ALPRAZolam 0.25 mg oral tablet (20 sources) [...] 24, 2022 6:10am take 1 tablet by ifto th every twenty-four hours Atenolol 25 MG [...] day Active clindamycin 300 mg oral capsule (7 sources) Lincosamide Antibacterial Start: 02-15-2023 End: 02-26-2023 [...] before bumex take 2 tablets by mo uth in the morning metOLazone (ZAROXOLYN) 2.5 MG tablet Take 5 mg by mouth in the morning. 0 Active take 1 tablet by fito th once daily metOLazone (ZAROXOLYN) 2.5 MG tablet [...] Discontinued 30 MG PO Twice daily 6 3 April 22, 2017 12:00am April 25, 2017 12:03am oxyCODONE hydrochloride 10 mg oral tablet (20 sources) Opioid Agonist Start: 12-24-2016 End: 02-15-2017 take 10 mg by mouth every four to six hours Oxycodone Discontinued 10 MG PO EVERY 4-6 HOURS December 23, 2016 11:00pm February 15, 2017 1:09pm piroxicam 10 mg oral capsule (20 sources) Nonsteroidal Anti-inflammatory Drug Start: 02-12-2023 End: 04-29-2023 take 10 mg by mouth once daily Piroxicam Discontinued 10 MG PO Daily February 12, 2023 12:00am April 29, 2023 10:39am Start: 02-12-2023 Piroxicam Acti ve MG February 12, 2023 12:00am pregabalin 50 mg oral capsule (20 sources) Start: 11-10-2020 End: 09-20-2021 take 50 mg by mouth three times daily Pregabalin Discontinued 50 MG PO Three times daily March 06, 2021 9:20am September 20, 2021 6:07pm Start: 12-24-2016 take 2 capsules by m [facility] four times daily Pregabalin (Lyrica) 75 mg Capsule Active 150 MG PO Four times daily December 24, 2016 1:57pm Start: 12-24-2016 End: 11-10-2020 Pregabalin (Lyrica) 75 mg Ca psule Discontinued 50 MG PO Twice daily December 23, 2016 11:00pm November 10, 2020 10:27am take 1 capsule by mo [facility] once daily pregabalin (LYRICA) 150 MG capsule Take 150 mg by mouth nightly. 0 Active take 1 capsule by mo [facility] once daily at bedtime Lyrica 200 MG 1 capsule 1 to 3 hours before bedtime Orally Once a day Active take 1 capsule by mo [facility] twice daily Pregabalin 50 MG Oral Capsule TAKE 1 CAPSULE TWICE DAILY. Quantity: 0 Refills: 0 Ordered: 06-Dec-2020 DO Active rOPINIRole 1 mg oral tablet (10 sources) Nonergot Dopamine Agonist Start: 04-30-2023 take 2 mg by mouth once daily at bedtime Ropinirole Active 2 MG PO Daily at bedtime April 30, 2023 10:34am Start: 04-29-2023 End: 04-30-2023 take 1 mg by mouth once daily at bedtime Ropinirole Discontinued 1 MG PO Daily at bedtime April 29, 2023 12:00am April 30, 2023 10:36am 1 to 3 hours before bedtime Start: 03-28-2023 End: 04-27-2023 take 2 tablets [...] a day for 30 days Mar, Active Sennosides-Docusate Sodium 8.6-50 MG (10 sources) [...] (NSTEMI) myocardial infarction] 07-28-2019 Chronic Alcohol-related disorders (12 sources) Alcohol abuse; Translations: [Alcohol abuse, uncomplicated] 04-29-2023 Chronic Anxiety disorders (20 sources) Claustrophobia; Translations: [...] sources) Coronary atherosclerosis; Translations: [Coronary atherosclerosis of [place] coronary artery] Onset: 3 02-13-2023 Chronic Coronary [...] toe, initial encounter] Onset: 4 04-17-2023 Chronic Osteoarthritis (1 source) Arthritis; Translations: [Unspecified osteoarthritis, unspecified site] 04-29-2023 Chronic Other acquired deformities (20 sources) Spondylolisthesis; [...] insufficiency; Translations: [Venous insufficiency (chronic) (peripheral)] Onset: 3 10-23-2022 Episodic Other diseases of veins and lymphatics (10 sources) Venous insufficiency (chronic) (peripheral); Translations: [Venous (peripheral) insufficiency, unspecified] Onset: 2 Resolved: 2 Episodic Other diseases of veins and lymphatics (1 source) Lymphedema of bilateral lower limbs; Translations: [Lymphedema of both lower extremities] Other ear and sense organ disorders (3 sources) Bilateral tinnitus; Translations: [Tinnitus, bilateral] Episodic Other ear and sense organ disorders (1 source) Tinnitus, bilateral Episodic Other endocrine disorders (14 sources) Primary hyperparathyroidism; Translations: [Primary hyperparathyroidism] Onset: 3 11-05-2022 Chronic Other endocrine disorders (5 sources) Primary hyperparathyroidism; Translations: [Primary hyperparathyroidism] Chronic Other gastrointestinal disorders (1 source) History of bypass of stomach; Translations: [Bariatric surgery status] 04-29-2023 Episodic Other hereditary and degenerative nervous system conditions (20 sources) Restless legs; Translations: [Restless legs syndrome] 04-29-2023 Chronic Other hereditary and degenerative nervous system conditions (6 sources) Restless legs syndrome; Translations: [Restless legs syndrome (RLS)] Onset: 3 Chronic Other injuries and conditions [...] sources) Chronic pain; Translations: [Other chronic pain] 04-29-2023 Chronic Other nervous system disorders (6 sources) Other chronic pain Onset: 2 Resolved: 2 Chronic Other nervous system disorders (20 sources) Aphasia; Translations: [Aphasia] 04-29-2023 Chronic Other nervous system disorders (1 source) Aphasia Chronic Other nervous system disorders (20 sources) Polyneuropathy; Translations: [Polyneuropathy, unspecified] 04-29-2023 Chronic Other nervous system disorders (1 source) Other chronic pain; Translations: [Other chronic pain] Onset: 3 Chronic Other nervous system disorders (7 sources) Acute postoperative pain; Translations: [Other acute [...] Chronic Other nutritional; endocrine; and metabolic disorders (10 sources) Hypomagnesemia; Translations: [Disorders of magnesium metabolism] [...] Translations: [Edema] 09-24-2021 Episodic Residual codes; unclassified (19 sources) Disturbance in sleep behavior; Translations: [Sleep disorder, unspecified] 04-29-2023 Episodic Residual codes; unclassified (1 source) Sleep disorder, unspecified Episodic Residual codes; unclassified (1 source) Localized edema Episodic Residual codes; unclassified (4 sources) Insomnia; Translations: [Insomnia, unspecified] 04-29-2023 Episodic Residual codes; unclassified (1 source) Insomnia, unspecified Episodic Residual codes; unclassified (1 source) History of sleeve gastrectomy; 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]] 04-29-2023 Episodic Screening and history of mental health [...] [Hypothyroidism, unspecified] Onset: 2 Resolved: 2 Chronic Thyroid disorders (2 sources) Disorder of thyroid gland; Translations: [Disorder of thyroid, unspecified] 04-29-2023 Episodic Unclassified (1 source) Disorder of thyroid, unspecified / E07.9(ICD-9) Onset: 8 Unclassified (1 source) Sleep apnea, unspecified / G47.30(ICD-9) Onset: 8 Unclassified (1 source) Morbid (severe) obesity due to excess calories / E66.01(ICD-9) Onset: 8 Unclassified (1 source) Body mass index (BMI) 38.0-38.9, adult / Z68.38(ICD-9) Onset: 8 Unclassified (1 source) Obstructive hypertrophic cardiomyopathy / I42.1(ICD-9) Onset: 8 Unclassified (1 source) half-way (current) use of aspirin / Z79.82(ICD-9) Onset: 8 Unclassified (1 source) Palpitations / R00.2(ICD-9) Onset: 7 Unclassified (1 source) Shortness of breath / R06.02(ICD-9) Onset: 7 Unclassified (1 source) Hypertensive heart disease with heart failure / I11.0(ICD-9) Onset: 8 Unclassified (1 source) 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(ICD-9) [...] / Z87.891(ICD-9) Onset: 8 Unclassified (1 source) half-way (current) use of anticoagulants / Z79.01(ICD-9) Onset: 8 Unclassified (1 source) Patient encounter status; Translations: [Examination of participant or control in clinical research] Unclassified (2 sources) Primary hypertension 01-10-2021 Unclassified (1 source) FU WATCHMAN PROCEDURE 01/03 [facility] 12-19-2020 Comment on above: FU WATCHMAN PROCEDUR E 01/03 [facility] Unclassified (1 source) Presence of Watchman left atrial appendage closure device 01-09-2021 Unclassified (1 source) Encounter for pre-operative examination 01-10-2021 Unclassified (12 sources) Inflammatory disorder; Translations: [Inflammation] 02-26-2023 Unclassified [...] left toe(s)] Onset: 10-23-2022 10-23-2022 Episodic Other gastrointestinal disorders [...] Aldosteroneon 04-17-2023 Aldosterone 21.5 ng/dL Normal 0.0-30.0 [facility] Comment on above: Order Comment: Patie nt Posture before Draw (see Test/Proc Notes):: SITTING Result Comment: This test was developed and its performance characteristics determined by [facility]. It has not been cleared or approved by the Food and Drug Administration. Performed at: [address] [id number] [place]ly Roller: Wander Ramsay MD, Phone: [phone] BY:[place] [address] [place], [place] [phone] MEDICAL DIRECTORAPRIL VEGA M.D. Performed By: #### B MP ####[address] [place] [address] [place]#### ALD, RENACT ####[facility] , Basic Metabolic Panelon 03-20 Anion gap [Moles/Vol] 12.1 mmol/L Normal 6.0-15.0 [facility] Comment on above: Performed By: #### B MP ####[place] [id number] [place]#### ALD, RENACT ####[facility] , Calcium [Mass/Vol] 11.6 mg/dL High 8.6-10.[address] [facility] Comment on above: Result Comment: PERF ORMED BY:[address] [place], [place] [phone] MEDICAL DIRECTORAPRIL VEGA M.D. Performed By: #### B MP ####[place] [id number] [place]#### ALD, RENACT ####[facility] , Chloride [Moles/Vol] 101 mmol/L Normal 98-107 [facility] Comment on above: Performed By: #### B MP ####[place] [id number] [place]#### ALD, RENACT ####[facility] , CO2 [Moles/Vol] 31.4 mmol/L High 21.0-31.0 [facility] Comment on above: Performed By: #### B MP ####[place] [id number] [place]#### ALD, RENACT ####[facility] , Creatinine [Mass/Vol] 1.38 mg/dL High 0.70-1.30 [facility] Comment on above: Performed By: #### B MP ####[address] [place] [address] [place]#### ALD, RENACT ####[facility] , GFR/1.73 sq M.predicted MDRD (S/P/Bld) [Vol rate/Area] 56.749 mL/min/{1.73_m2} Normal [facility] Comment on above: Performed By: #### B MP ####[place] [address] [place]#### ALD, RENACT ####[facility] , Glucose [Mass/Vol] 123 mg/dL High 70-[address] [facility] Comment on above: Result Comment: [place] Glucose Reference Range is dependent on time and content of last meal. Glucose of more than 200 mg/dL in a nonstressed, ambulatory subject supports the diagnosis of Diabetes Mellitus. ADA recommended reference range Performed By: #### B MP ####[place] [address] [place]#### ALD, RENACT ####[facility] , Potassium [Moles/Vol] 4.5 mmol/L Normal 3.5-5.1 [facility] Comment on above: Performed By: #### B MP ####[place] [address] [place]#### ALD, RENACT ####[facility] , Sodium [Moles/Vol] 140 mmol/L Normal 136-[address] [facility] Comment on above: Performed By: #### B MP ####[place] [address] [place]#### ALD, RENACT ####[facility] , Urea nitrogen [Mass/Vol] 26 mg/dL High 7-25 [facility] Comment on above: Performed By: #### B MP ####[place] [address] [place]#### ALD, RENACT ####[facility] , Calcium [Mass/volume] in Ser um or PlasmaOrdered By: Mina Reilly on 04-17-2023 Calcium [Mass/Vol] 11.6 mg/dL 8.6-10.[address] [facility] Carbon dioxide, total [Moles /volume] in Serum or PlasmaOrdered By: Mina Reilly on 04-17-2023 CO2 [Moles/Vol] 31.4 mmol/L 21.0-31.0 [facility] Chloride [Moles/volume] in S elmira or PlasmaOrdered By: Mina Reilly on 04-17-2023 Chloride [Moles/Vol] 101 mmol/L 98-107 [facility] Creatinine [Mass/volume] in Serum or PlasmaOrdered By: Mina Reilly on 04-17-2023 Creatinine [Mass/Vol] 1.38 mg/dL 0.70-1.30 [facility] ECG 12 Leadon 04-17-2023 Atrial fibrillation at a controlled rate, right bundle branch block, anterior and lateral T wave inversions, consider ischemia versus LVH. [facility] Work Phone: Glucose [Mass/volume] in Ser um or PlasmaOrdered By: Mina Reilly on 04-17-2023 Glucose [Mass/Vol] 123 mg/dL 70-[address] [facility] Comment on above: ADA recommended refe rence rangeRandom Glucose Reference Range is dependent on time and content of last meal. Glucose of more than 200 mg/dL in a nonstressed, ambulatory subject supports the diagnosis of Diabetes Mellitus. No Panel InformationOrdered By: Mina Reilly on 04-17-2023 Estimated GFR (CKD-EPI) 56.749 mL/Min [facility] Creatinine Clearance (Chem N/A [facility] Potassium [Moles/volume] in Serum or PlasmaOrdered By: Mina Reilly on 04-17-2023 Potassium [Moles/Vol] 4.5 mmol/L 3.5-5.1 [facility] Renin Activityon 04-17-2023 Renin Activity 2.367 Normal 0.167-5.38 0 [facility] Comment on above: Order Comment: Patie nt Posture before Draw (see Test/Proc Notes):: SITTING Result Comment: This test was developed and its performance characteristics determined by [facility]. It has not been cleared or approved by the Food and Drug Administration. Performed at: [address] [id number] [place]: Wander Ramsay MD, Phone: [phone] BY:[facility] [place], [place] [id number] MEDICAL DIRECTORAPRIL VEGA M.D. Performed By: #### B MP ####[facility] [address] [place] [address] [facility]#### ALD, RENACT ####[facility] , Renin activityOrdered By: Felicitas Reilly on 04-17-2023 Renin (P) [Catalytic activity/Vol] 2.367 ng/mL/hr 0.167-5.38 0 [facility] Comment on above: This test was develo ped and its performance characteristicsdetermined by [facility]. It has not been cleared orapproved by the Food and Drug Administration.Performed at: [address] [id number] Director: Wander Ramsay MD, Phone: [phone] Serum or plasma aldosterone measurement (mass/volume)Ordered By: Mina Reilly on 04-17-2023 Aldosterone [Mass/Vol] 21.5 ng/dL 0.0-30.0 [facility] Comment on above: This test was develo ped and its performance characteristicsdetermined by [facility]. It has not been cleared orapproved by the Food and Drug Administration.Performed at: [address] [id number] Director: Wander Ramsay MD, Phone: [phone] Serum or plasma anion gap de terminationOrdered By: Mina Reilly on 04-17-2023 Anion gap [Moles/Vol] 12.1 mmol/L 6.0-15.0 [facility] Sodium [Moles/volume] in Ser um or PlasmaOrdered By: Mina Reilly on 04-17-2023 Sodium [Moles/Vol] 140 mmol/L 136-[address] [facility] Urea nitrogen [Mass/volume] in Serum or PlasmaOrdered By: Mina Reilly on 04-17-2023 Urea nitrogen [Mass/Vol] 26 mg/dL 7 [facility] Alanine aminotransferase [En zymatic activity/volume] in Serum or PlasmaOrdered By: Geeta Dumont on 04-04-2023 ALT [Catalytic activity/Vol] 16 U/L 7-52 [facility] Albumin [Mass/volume] in Ser um or Plasma by Bromocresol green (BCG) dye binding methoOrdered By: Geeta Dumont on 04-04-2023 Albumin BCG dye [Mass/Vol] 4.6 g/dL 3.5-5.7 [facility] Alkaline phosphatase [Enzyma tic activity/volume] in Serum or PlasmaOrdered By: Geeta Dumont on 04-04-2023 ALP [Catalytic activity/Vol] 112 U/L 34-104 [facility] Aspartate aminotransferase [ Enzymatic activity/volume] in Serum or PlasmaOrdered By: Geeta Dumont on 04-04-2023 AST [Catalytic activity/Vol] 22 U/L 13-39 [facility] Bilirubin.total [Mass/volume ] in Serum or PlasmaOrdered By: Geeta Dumont on 04-04-2023 Bilirubin [Mass/Vol] 0.7 mg/dL 0.3-1.0 [facility] Calcium [Mass/volume] in Ser um or PlasmaOrdered By: Geeta Dumont on 04-04-2023 Calcium [Mass/Vol] 11.2 mg/dL 8.6-10.[address] [facility] Carbon dioxide, total [Moles /volume] in Serum or PlasmaOrdered By: Geeta Dumont on 04-04-2023 CO2 [Moles/Vol] 30.5 mmol/L 21.0-31.0 [facility] Chloride [Moles/volume] in S elmira or PlasmaOrdered By: Geeta Dumont on 04-04-2023 Chloride [Moles/Vol] 102 mmol/L 98-107 [facility] Comprehensive Metabolic Pane anny 04-04-2023 Albumin [Mass/Vol] 4.6 g/dL Normal 3.5-5.[address] [facility] Comment on above: Order Comment: Reaso n for Exam Chronic kidney disease, stage 3a Performed By: #### C MP ####[facility] [place] [address] [facility] Albumin/Globulin [Mass ratio] 1.6 {ratio} Normal [facility] Comment on above: Order Comment: Reaso n for Exam Chronic kidney disease, stage 3a Performed By: #### C MP ####[address] [place] [address] [facility] ALP [Catalytic activity/Vol] 112 U/L High 34-104 [facility] Comment on above: Order Comment: Reaso n for Exam Chronic kidney disease, stage 3a Result Comment: PERF ORMED BY:[address] [place], [place] [phone] MEDICAL DIRECTORAPRIL VEGA M.D. Performed By: #### C MP ####[address] [place] [address] [facility] ALT [Catalytic activity/Vol] 16 U/L Normal 7-52 [facility] Comment on above: Order Comment: Reaso n for Exam Chronic kidney disease, stage 3a Performed By: #### C MP ####[address] [place] [address] [facility] Anion gap [Moles/Vol] 10.0 mmol/L Normal 6.0-15.0 [facility] Comment on above: Order Comment: Reaso n for Exam Chronic kidney disease, stage 3a Performed By: #### C MP ####[address] [address] [facility] AST [Catalytic activity/Vol] 22 U/L Normal 13-39 [facility] Comment on above: Order Comment: Reaso n for Exam Chronic kidney disease, stage 3a Performed By: #### C MP ####[address] [address] [facility] Bilirubin [Mass/Vol] 0.7 mg/dL Normal 0.3-1.0 [facility] Comment on above: Order Comment: Reaso n for Exam Chronic kidney disease, stage 3a Performed By: #### C MP ####[address] [address] [facility] Calcium [Mass/Vol] 11.2 mg/dL High 8.6-10.[address] [facility] Comment on above: Order Comment: Reaso n for Exam Chronic kidney disease, stage 3a Performed By: #### C MP ####[address] [address] [facility] Chloride [Moles/Vol] 102 mmol/L Normal 98-107 [facility] Comment on above: Order Comment: Reaso n for Exam Chronic kidney disease, stage 3a Performed By: #### C MP ####[address] [address] [facility] CO2 [Moles/Vol] 30.5 mmol/L Normal 21.0-31.0 [facility] Comment on above: Order Comment: Reaso n for Exam Chronic kidney disease, stage 3a Performed By: #### C MP ####[address] [address] [facility] Creatinine [Mass/Vol] 1.49 mg/dL High 0.70-1.30 [facility] Comment on above: Order Comment: Reaso n for Exam Chronic kidney disease, stage 3a Performed By: #### C MP ####[place] [id number] [facility] GFR/1.73 sq M.predicted MDRD (S/P/Bld) [Vol rate/Area] 51.759 mL/min/{1.73_m2} [facility] Comment on above: Order Comment: Reaso n for Exam Chronic kidney disease, stage 3a Performed By: #### C MP ####[address] [address] [facility] Globulin (S) [Mass/Vol] 2.8 g/dL [facility] Comment on above: Order Comment: Reaso n for Exam Chronic kidney disease, stage 3a Performed By: #### C MP ####[address] [place] [address] [facility] Glucose [Mass/Vol] 169 mg/dL High 70-[address] [facility] Comment on above: Order Comment: Reaso n for Exam Chronic kidney disease, stage 3a Result Comment: [facility] Glucose Reference Range is dependent on time and content of last meal. Glucose of more than 200 mg/dL in a nonstressed, ambulatory subject supports the diagnosis of Diabetes Mellitus. ADA recommended reference range Performed By: #### C MP ####[address] [address] [facility] Potassium [Moles/Vol] 4.5 mmol/L Normal 3.5-5.1 [facility] Comment on above: Order Comment: Reaso n for Exam Chronic kidney disease, stage 3a Performed By: #### C MP ####[address] [address] [facility] Protein [Mass/Vol] 7.4 g/dL Normal 6.4-8.[address] [facility] Comment on above: Order Comment: Reaso n for Exam Chronic kidney disease, stage 3a Performed By: #### C MP ####[address] [address] [facility] Sodium [Moles/Vol] 138 mmol/L Normal 136-[address] [facility] Comment on above: Order Comment: Reaso n for Exam Chronic kidney disease, stage 3a Performed By: #### C MP ####[address] [address] [place] Urea nitrogen [Mass/Vol] 31 mg/dL High 7-25 [facility] Comment on above: Order Comment: Reaso n for Exam Chronic kidney disease, stage 3a Performed By: #### C MP ####[address] [address] [place] Creatinine [Mass/volume] in Serum or PlasmaOrdered By: Geeta Dumont on 04-04-2023 Creatinine [Mass/Vol] 1.49 mg/dL 0.70-1.30 [facility] Globulin Calc (S) [Mass/Vol] Ordered By: Geeta Dumont on 04-04-2023 Globulin (S) [Mass/Vol] 2.8 g/dL [facility] Glucose [Mass/volume] in Ser um or PlasmaOrdered By: Geeta Dumont on 04-04-2023 Glucose [Mass/Vol] 169 mg/dL 70-[address] [facility] Comment on above: ADA recommended refe rence rangeRandom Glucose Reference Range is dependent on time and content of last meal. Glucose of more than 200 mg/dL in a nonstressed, ambulatory subject supports the diagnosis of Diabetes Mellitus. No Panel InformationOrdered By: Geeta Dumont on 04-04-2023 Estimated GFR (CKD-EPI) 51.759 mL/Min [facility] Creatinine Clearance (Chem N/A [facility] Potassium [Moles/volume] in Serum or PlasmaOrdered By: Geeta Dumont on 04-04-2023 Potassium [Moles/Vol] 4.5 mmol/L 3.5-5.1 [facility] Protein [Mass/volume] in Ser um or PlasmaOrdered By: Geeta Dumont on 04-04-2023 Protein [Mass/Vol] 7.4 g/dL 6.4-8.[address] [facility] Serum or plasma albumin/glob ulin mass ratioOrdered By: Geeta Dumont on 04-04-2023 Albumin/Globulin [Mass ratio] 1.6 {ratio} [facility] Serum or plasma anion gap de terminationOrdered By: Geeta Dumont on 04-04-2023 Anion gap [Moles/Vol] 10.0 mmol/L 6.0-15.0 [facility] Sodium [Moles/volume] in Ser um or PlasmaOrdered By: Geeta Dumont on 04-04-2023 Sodium [Moles/Vol] 138 mmol/L 136-[address] [facility] Urea nitrogen [Mass/volume] in Serum or PlasmaOrdered By: Geeta Dumont on 04-04-2023 Urea nitrogen [Mass/Vol] 31 mg/dL 7-25 [facility] US arterial pvr rest Tayo US arterial pvr rest LE Normal [facility] MR foot LT wo conon 03-20-19 MR foot LT wo con Normal [facility] XR pre/post mri xrayon 03-20 XR pre/post mri xray Normal [facility] A1C with Estimated Average G luon 03-07-2023 Glucose [Mass/Vol] 180 mg/dL Normal [facility] Comment on above: Order Comment: 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 Result Comment: Incr eased risk for diabetes: 5.7 - 6.4 diabetes: >6.4 glycemic control for adults with diabetes: <7.0 Performed By: #### C BC, LIPID, A1C WT eA, CMP ####[facility] [address] [place] [address] [facility] Alanine aminotransferase [En zymatic activity/volume] in Serum or PlasmaOrdered By: Geeta Dumont on 03-07-2023 ALT [Catalytic activity/Vol] 17 U/L 7-52 [facility] Albumin [Mass/volume] in Ser um or Plasma by Bromocresol green (BCG) dye binding methoOrdered By: Geeta Dumont on 03-07-2023 Albumin BCG dye [Mass/Vol] 4.3 g/dL 3.5-5.7 [facility] Alkaline phosphatase [Enzyma tic activity/volume] in Serum or PlasmaOrdered By: Geeta Dumont on 03-07-2023 ALP [Catalytic activity/Vol] 119 U/L 34-104 [facility] Aspartate aminotransferase [ Enzymatic activity/volume] in Serum or PlasmaOrdered By: Geeta Dumont on 03-07-2023 AST [Catalytic activity/Vol] 22 U/L 13-39 [facility] Basophils Auto (Bld) [#/Vol] Ordered By: Geeta Dumont on 03-07-2023 Basophils (Bld) [#/Vol] 0.1 10*3/uL 0.0-0.2 [facility] Basophils/100 WBC Auto (Bld) Ordered By: Geeta Dumont on 03-07-2023 Basophils/100 WBC (Bld) 0.9 % . [facility] Bilirubin.total [Mass/volume ] in Serum or PlasmaOrdered By: Geeta Dumont on 03-07-2023 Bilirubin [Mass/Vol] 0.7 mg/dL 0.3-1.0 [facility] Calcium [Mass/volume] in Ser um or PlasmaOrdered By: Geeta Dumont on 03-07-2023 Calcium [Mass/Vol] 11.2 mg/dL 8.6-10.[address] [facility] Carbon dioxide, total [Moles /volume] in Serum or PlasmaOrdered By: Geeta Dumont on 03-07-2023 CO2 [Moles/Vol] 28.3 mmol/L 21.0-31.0 [facility] Chloride [Moles/volume] in S elmira or PlasmaOrdered By: Geeta Dumont on 03-07-2023 Chloride [Moles/Vol] 103 mmol/L 98-107 [facility] Cholesterol [Mass/volume] in Serum or PlasmaOrdered By: Geeta Dumont on 03-07-2023 Cholesterol [Mass/Vol] 148 mg/dL 140-200 [facility] Comment on above: Chol less than 200 m g/dl low riskChol 201-239 mg/dl borderline riskChol 240 mg/dl and greater high risk Cholesterol in LDL Calc [Mas s/Vol]Ordered By: Geeta Dumont on 03-07-2023 Cholesterol in LDL [Mass/Vol] 76 mg/dL 0-100 [facility] Comment on above: LDL ATP III CLASSIFI CATIONLDL less than 100 mg/dL OptimalLDL 100-129 mg/dL Near or above optimalLDL 130-159 mg/dL Borderline highLDL 160-189 mg/dL HighLDL greater than 189 mg/dL Very high Cholesterol in VLDL Calc [Ma ss/Vol]Ordered By: Geeta Dumont on 03-07-2023 Cholesterol in VLDL [Mass/Vol] 29 mg/dL [facility] Complete Blood Count Auto Di ffon 03-07-2023 Basophils (Bld) [#/Vol] 0.1 10*3/uL Normal 0.0-0.2 [facility] Comment on above: Order Comment: Reaso n for Exam Electrolyte and fluid disorder;Chronic kidney disease, stage Result Comment: PERF ORMED BY:[address] [place], [place] [id number] MEDICAL DIRECTORAPRIL VEGA M.D. Performed By: #### C BC, LIPID, A1C WT eA, CMP ####[place] [id number] [facility] Basophils/100 WBC (Bld) 0.9 % Normal . [facility] Comment on above: Order Comment: Reaso n for Exam Electrolyte and fluid disorder;Chronic kidney disease, stage Performed By: #### C BC, LIPID, A1C WT eA, CMP ####[place] [id number] [facility] Eosinophils (Bld) [#/Vol] 0.5 10*3/uL High 0.0-0.45 [facility] Comment on above: Order Comment: Reaso n for Exam Electrolyte and fluid disorder;Chronic kidney disease, stage Performed By: #### C BC, LIPID, A1C WTH eA, CMP ####[place] [id number] [facility] Eosinophils/100 WBC (Bld) 6.3 % Normal . [facility] Comment on above: Order Comment: Reaso n for Exam Electrolyte and fluid disorder;Chronic kidney disease, stage Performed By: #### C BC, LIPID, A1C WT eA, CMP ####[place] [id number] [facility] Erythrocyte distribution width (RBC) [Ratio] 15.8 % High 12.0-14.8 [facility] Comment on above: Order Comment: Reaso n for Exam Electrolyte and fluid disorder;Chronic kidney disease, stage Performed By: #### C BC, LIPID, A1C WTH eA, CMP ####[place] [id number] [facility] Hematocrit (Bld) [Volume fraction] 40.4 % Normal 38.8-50.0 [facility] Comment on above: Order Comment: Reaso n for Exam Electrolyte and fluid disorder;Chronic kidney disease, stage Performed By: #### C BC, LIPID, A1C WT eA, CMP ####[place] [id number] [facility] Hemoglobin (Bld) [Mass/Vol] 13.1 g/dL Normal 13.0-17.0 [facility] Comment on above: Order Comment: Reaso n for Exam Electrolyte and fluid disorder;Chronic kidney disease, stage Performed By: #### C BC, LIPID, A1C WTH eA, CMP ####[place] [id number] [facility] Lymphocytes (Bld) [#/Vol] 1.2 10*3/uL Normal 1.00-4.8 [facility] Comment on above: Order Comment: Reaso n for Exam Electrolyte and fluid disorder;Chronic kidney disease, stage Performed By: #### C BC, LIPID, A1C WTH eA, CMP ####[place] [id number] [facility] Lymphocytes/100 WBC (Bld) 15.3 % Normal . [facility] Comment on above: Order Comment: Reaso n for Exam Electrolyte and fluid disorder;Chronic kidney disease, stage Performed By: #### C BC, LIPID, A1C WTH eA, CMP ####[place] [id number] [facility] MCH (RBC) [Entitic mass] 27.3 pg Low 27.5-35.2 [facility] Comment on above: Order Comment: Reaso n for Exam Electrolyte and fluid disorder;Chronic kidney disease, stage Performed By: #### C BC, LIPID, A1C WTH eA, CMP ####[address] [address] [facility] MCV (RBC) [Entitic vol] 84.1 fL Normal 83.5-101 [facility] Comment on above: Order Comment: Reaso n for Exam Electrolyte and fluid disorder;Chronic kidney disease, stage Performed By: #### C BC, LIPID, A1C WT eA, CMP ####[place] [id number] [facility] Mean Corpuscular HGB Conc 32.4 g/dL Low 32.5-35.6 [facility] Comment on above: Order Comment: Reaso n for Exam Electrolyte and fluid disorder;Chronic kidney disease, stage Performed By: #### C BC, LIPID, A1C [facility] eA, CMP ####[address] Monocytes (Bld) [#/Vol] 1.1 10*3/uL High 0.0-0.8 [facility] Comment on above: Order Comment: Reaso n for Exam Electrolyte and fluid disorder;Chronic kidney disease, stage Performed By: #### C BC, LIPID, A1C WT eA, CMP ####[place] [id number] [facility] Monocytes/100 WBC (Bld) 14.1 % Normal . [facility] Comment on above: Order Comment: Reaso n for Exam Electrolyte and fluid disorder;Chronic kidney disease, stage Performed By: #### C BC, LIPID, A1C WT eA, CMP ####[place] [id number] [facility] Neutrophils (Bld) [#/Vol] 4.9 10*3/uL Normal 1.8-7.7 [facility] Comment on above: Order Comment: Reaso n for Exam Electrolyte and fluid disorder;Chronic kidney disease, stage Performed By: #### C BC, LIPID, A1C WT eA, CMP ####[place] [id number] [facility] Neutrophils/100 WBC (Bld) 63.4 % Normal . [facility] Comment on above: Order Comment: Reaso n for Exam Electrolyte and fluid disorder;Chronic kidney disease, stage Performed By: #### C BC, LIPID, A1C WTH eA, CMP ####[address] NRBC% 0.1 /100{WBC} Normal 0-0.5 [facility] Comment on above: Order Comment: Reaso n for Exam Electrolyte and fluid disorder;Chronic kidney disease, stage Performed By: #### C BC, LIPID, A1C WTH eA, CMP ####[address] Platelet mean volume (Bld) [Entitic vol] 6.8 fL Normal 6.6-10.1 [facility] Comment on above: Order Comment: Reaso n for Exam Electrolyte and fluid disorder;Chronic kidney disease, stage Performed By: #### C BC, LIPID, A1C WTH eA, CMP ####[address] Platelets (Bld) [#/Vol] 280 10*3/uL Normal 150-450 [facility] Comment on above: Order Comment: Reaso n for Exam Electrolyte and fluid disorder;Chronic kidney disease, stage Performed By: #### C BC, LIPID, A1C WT eA, CMP ####[address] RBC (Bld) [#/Vol] 4.81 10*6/uL Normal 3.90-5.60 [facility] Comment on above: Order Comment: Reaso n for Exam Electrolyte and fluid disorder;Chronic kidney disease, stage Performed By: #### C BC, LIPID, A1C WTH eA, CMP ####[place] [id number] [facility] WBC (Bld) [#/Vol] 7.8 10*3/uL Normal 4.1-10.[address] [facility] Comment on above: Order Comment: Reaso n for Exam Electrolyte and fluid disorder;Chronic kidney disease, stage Performed By: #### C BC, LIPID, A1C WTH eA, CMP ####[place] [id number] [facility] Comprehensive Metabolic Pane anny 03-07-2023 Albumin [Mass/Vol] 4.3 g/dL Normal 3.5-5.[address] [facility] Comment on above: Order Comment: Reaso n for Exam Electrolyte and fluid disorder;Chronic kidney disease, stage 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 Performed By: #### C BC, LIPID, A1C WTH eA, CMP ####[facility] [place] [address] [facility] Albumin/Globulin [Mass ratio] 1.5 {ratio} Normal [facility] Comment on above: Order Comment: Reaso n for Exam Electrolyte and fluid disorder;Chronic kidney disease, stage 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 Performed By: #### C BC, LIPID, A1C WTH eA, CMP ####[place] [address] [place] [address] [facility] ALP [Catalytic activity/Vol] 119 U/L High 34-104 [facility] Comment on above: Order Comment: Reaso n for Exam Electrolyte and fluid disorder;Chronic kidney disease, stage 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 Performed By: #### C BC, LIPID, A1C WTH eA, CMP ####[place] [address] [place] [address] [facility] ALT [Catalytic activity/Vol] 17 U/L Normal 7-52 [facility] Comment on above: Order Comment: Reaso n for Exam Electrolyte and fluid disorder;Chronic kidney disease, stage 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 Performed By: #### C BC, LIPID, A1C WTH eA, CMP ####[facility] [place] [address] [facility] Anion gap [Moles/Vol] 11.5 mmol/L Normal 6.0-15.0 [facility] Comment on above: Order Comment: Reaso n for Exam Electrolyte and fluid disorder;Chronic kidney disease, stage 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 Performed By: #### C BC, LIPID, A1C WTH eA, CMP ####[facility] [place] [address] [facility] AST [Catalytic activity/Vol] 22 U/L Normal 13-39 [facility] Comment on above: Order Comment: Reaso n for Exam Electrolyte and fluid disorder;Chronic kidney disease, stage 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 Performed By: #### C BC, LIPID, A1C WTH eA, CMP ####[facility] [address] [place] [address] [facility] Bilirubin [Mass/Vol] 0.7 mg/dL Normal 0.3-1.0 [facility] Comment on above: Order Comment: Reaso n for Exam Electrolyte and fluid disorder;Chronic kidney disease, stage 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 Performed By: #### C BC, LIPID, A1C WTH eA, CMP ####[facility] [place] [address] [facility] Calcium [Mass/Vol] 11.2 mg/dL High 8.6-10.[address] [facility] Comment on above: Order Comment: Reaso n for Exam Electrolyte and fluid disorder;Chronic kidney disease, stage 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 Performed By: #### C BC, LIPID, A1C WTH eA, CMP ####[place] [address] [place] [address] [place] Chloride [Moles/Vol] 103 mmol/L Normal 98-107 [facility] Comment on above: Order Comment: Reaso n for Exam Electrolyte and fluid disorder;Chronic kidney disease, stage 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 Performed By: #### C BC, LIPID, A1C WTH eA, CMP ####[facility] [address] [place] [address] [facility] CO2 [Moles/Vol] 28.3 mmol/L Normal 21.0-31.0 [facility] Comment on above: Order Comment: Reaso n for Exam Electrolyte and fluid disorder;Chronic kidney disease, stage 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 Performed By: #### C BC, LIPID, A1C WTH eA, CMP ####[facility] [place] [address] [facility] Creatinine [Mass/Vol] 1.59 mg/dL High 0.70-1.30 [facility] Comment on above: Order Comment: Reaso n for Exam Electrolyte and fluid disorder;Chronic kidney disease, stage 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 Performed By: #### C BC, LIPID, A1C WTH eA, CMP ####[facility] [address] [place] [address] [facility] GFR/1.73 sq M.predicted MDRD (S/P/Bld) [Vol rate/Area] 47.878 mL/min/{1.73_m2} Normal [facility] Comment on above: Order Comment: Reaso n for Exam Electrolyte and fluid disorder;Chronic kidney disease, stage 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 Performed By: #### C BC, LIPID, A1C WTH eA, CMP ####[place] [address] [place] [address] [facility] Globulin (S) [Mass/Vol] 2.9 g/dL [facility] Comment on above: Order Comment: Reaso n for Exam Electrolyte and fluid disorder;Chronic kidney disease, stage 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 Glucose of more than 200 mg/dL in a nonstressed, ambulatory subject supports the diagnosis of Diabetes Mellitus. 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 Performed By: #### C BC, LIPID, A1C WTH eA, CMP ####[place] [address] [place] [address] [facility] Protein [Mass/Vol] 7.2 g/dL Normal 6.4-8.[address] [facility] Comment on above: Order Comment: Reaso n for Exam Electrolyte and fluid disorder;Chronic kidney disease, stage 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 Performed By: #### C BC, LIPID, A1C WTH eA, CMP ####[place] [address] [place] [address] [facility] Sodium [Moles/Vol] 138 mmol/L Normal 136-[address] [facility] Comment on above: Order Comment: Reaso n for Exam Electrolyte and fluid disorder;Chronic kidney disease, stage 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 Performed By: #### C BC, LIPID, A1C WTH eA, CMP ####[place] [address] [place] [id number] [facility] Urea nitrogen [Mass/Vol] 32 mg/dL High 7-25 [facility] Comment on above: Order Comment: Reaso n for Exam Electrolyte and fluid disorder;Chronic kidney disease, stage 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 [facility] Erythrocyte distribution wid th Auto (RBC) [Ratio]Ordered By: Geeta Dumont on 03-07-2023 Erythrocyte distribution width (RBC) [Ratio] 15.8 % 12.0-14.8 [facility] Globulin Calc (S) [Mass/Vol] Ordered By: Geeta Dumont on 03-07-2023 Globulin (S) [Mass/Vol] 2.9 g/dL [facility] Glucose [Mass/volume] in Ser um or PlasmaOrdered By: Geeta Dumont on 03-07-2023 Glucose [Mass/Vol] 78 mg/dL 70-[address] [facility] Comment on above: ADA recommended refe [...] from glycated hemoglobin (Bld) [Mass/Vol] 180 mg/dL [facility] Hematocrit Auto (Bld) [Volum e fraction]Ordered By: Geeta Dumont on 03-07-2023 Hematocrit (Bld) [Volume fraction] 40.4 % 38.8-50.0 [facility] Hemoglobin A1c percentageOrd ered By: Geeta Dumont on 03-07-2023 HbA1c (Bld) [Mass fraction] 7.9 % 4.3-5.6 [facility] Comment on above: Increased risk for d iabetes: 5.7 - 6.4diabetes: >6.4glycemic control for adults with diabetes: <7.0 Hemoglobin [Mass/volume] in BloodOrdered By: Geeta Dumont on 03-07-2023 Hemoglobin (Bld) [Mass/Vol] 13.1 g/dL 13.0-17.0 [facility] Leukocytes [#/volume] correc martin for nucleated erythrocytes in Blood by Automated counOrdered By: Geeta uDmont on 03-07-2023 WBC corrected for nucl RBC Auto (Bld) [#/Vol] 7.8 10*3/uL 4.1-10.5 [facility] Lipid Panelon 03-07-2023 Cholesterol [Mass/Vol] 148 mg/dL Normal 140-200 [facility] Comment on above: Order Comment: Reaso n for Exam Electrolyte and fluid disorder;Chronic kidney disease, stage 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 Result Comment: Chol less than 200 mg/dl low risk Chol 201-239 mg/dl borderline risk Chol 240 mg/dl and greater high risk Performed By: #### C BC, LIPID, A1C [facility] eA, CMP ####[facility] [place] [address] [facility] Cholesterol in HDL [Mass/Vol] 43 mg/dL Normal 23-92 [facility] Comment on above: Order Comment: Reaso n for Exam Electrolyte and fluid disorder;Chronic kidney disease, stage 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 Result Comment: HDL CHOL ATP-III CLASSIFICATION Cardiovascular Risk HDL > or equal to 60 mg/dL LOW HDL < 40 mg/dL HIGH Performed By: #### C BC, LIPID, A1C [facility] eA, CMP ####[place] [address] [place] [address] [facility] Cholesterol.total/Cho lesterol in HDL [Mass ratio] 3.4 {ratio} Normal <5.0 [facility] Comment on above: Order Comment: Reaso n for Exam Electrolyte and fluid disorder;Chronic kidney disease, stage 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 Performed By: #### C BC, LIPID, A1C [facility] eA, CMP ####[facility] [place] [address] [facility] LDL Cholesterol,Calculate d 76 mg/dL Normal 0-100 [facility] Comment on above: Order Comment: Reaso [...] Performed By: #### C BC, LIPID, A1C [facility] eA, CMP ####[facility] Triglyceride w/Reflex 147 mg/dL Normal 0-149 [facility] Comment on above: Order Comment: Reaso [...] Performed By: #### C BC, LIPID, A1C [facility], CMP ####[place] [address] VLDL CHOLESTEROL 29 mg/dL Normal [facility] Comment on above: Order Comment: Reaso n for Exam Electrolyte and fluid disorder;Chronic kidney disease, stage 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 [facility] MCH Auto (RBC) [Entitic mass ]Ordered By: Geeta Dumont on 03-07-2023 MCH (RBC) [Entitic mass] 27.3 pg 27.5-35.2 [facility] MCHC Auto (RBC) [Mass/Vol]Or dered By: Geeta Dumont on 03-07-2023 MCHC (RBC) [Mass/Vol] 32.4 g/dL 32.5-35.6 [facility] MCV Auto (RBC) [Entitic vol] Ordered By: Geeta Dumont on 03-07-2023 MCV (RBC) [Entitic vol] 84.1 fL 83.5-101 [facility] Monocytes Auto (Bld) [#/Vol] Ordered By: Geeta Dumont on 03-07-2023 Monocytes (Bld) [#/Vol] 1.1 10*3/uL 0.0-0.8 [facility] Monocytes/100 WBC Auto (Bld) Ordered By: Geeta Dumont on 03-07-2023 Monocytes/100 WBC (Bld) 14.1 % . [facility] Neutrophils Auto (Bld) [#/Vo l]Ordered By: Geeta Dumont on 03-07-2023 Neutrophils (Bld) [#/Vol] 4.9 10*3/uL 1.8-7.7 [facility] Neutrophils/100 WBC Auto (Bl d)Ordered By: Geeta Dumont on 03-07-2023 Neutrophils/100 WBC (Bld) 63.4 % . [facility] No Panel InformationOrdered By: Geeta Dumont on 03-07-2023 Estimated GFR (CKD-EPI) 47.878 mL/Min [facility] Creatinine Clearance (Chem N/A [facility] Nucleated erythrocytes [Pres ence] in Blood by Automated countOrdered By: Geeta Dumont on 03-07-2023 Nucleated RBC Auto Ql (Bld) 0.1 /100{WBC} 0-0.5 [facility] Platelet mean volume Auto (B ld) [Entitic vol]Ordered By: Geeta Dumont on 03-07-2023 Platelet mean volume (Bld) [Entitic vol] 6.8 fL 6.6-10.1 [facility] Platelets Auto (Bld) [#/Vol] Ordered By: Geeta Dumont on 03-07-2023 Platelets (Bld) [#/Vol] 280 10*3/uL 150-450 [facility] Potassium [Moles/volume] in Serum or PlasmaOrdered By: Geeta Dumont on 03-07-2023 Potassium [Moles/Vol] 4.8 mmol/L 3.5-5.1 [facility] Protein [Mass/volume] in Ser um or PlasmaOrdered By: Geeta Dumont on 03-07-2023 Protein [Mass/Vol] 7.2 g/dL 6.4-8.[address] [facility] RBC Auto (Bld) [#/Vol]Ordere d By: Geeta Dumont on 03-07-2023 RBC (Bld) [#/Vol] 4.81 10*6/uL 3.90-5.60 [facility] Serum or plasma albumin/glob ulin mass ratioOrdered By: Geeta Dumont on 03-07-2023 Albumin/Globulin [Mass ratio] 1.5 {ratio} [facility] Serum or plasma anion gap de terminationOrdered By: Geeta Dumont on 03-07-2023 Anion gap [Moles/Vol] 11.5 mmol/L 6.0-15.0 [facility] Serum or plasma high density lipoprotein (HDL) cholesterol measurementOrdered By: Geeta Dumont on 03-07-2023 Cholesterol in HDL [Mass/Vol] 43 mg/dL 23-92 [facility] Comment on above: HDL CHOL ATP-III CLA SSIFICATION Cardiovascular RiskHDL > or equal to 60 mg/dL LOWHDL < 40 mg/dL HIGH Serum or plasma total choles terol/high density lipoprotein (HDL) cholesterol mass ratOrdered By: Geeta Dumont on 03-07-2023 Cholesterol.total/Cho lesterol in HDL [Mass ratio] 3.4 {ratio} <5.0 [facility] Sodium [Moles/volume] in Ser um or PlasmaOrdered By: Geeta Dumont on 03-07-2023 Sodium [Moles/Vol] 138 mmol/L 136-[address] [facility] Triglyceride [Mass/volume] i n Serum or PlasmaOrdered By: Geeta Dumont on 03-07-2023 Triglyceride [Mass/Vol] 147 mg/dL 0-149 [facility] Comment on above: TRIG ATP III CLASSIF ICATIONTRIG less than 150 mg/dL NormalTRIG 150-199 mg/dL Borderline highTRIG 200-500 mg/dL High TRIG greater than 500 mg/dL Very highStandard traceable to the Center for Disease Conrtrol and Prevention (CDC) test method. Urea nitrogen [Mass/volume] in Serum or PlasmaOrdered By: Geeta Dumont on 03-07-2023 Urea nitrogen [Mass/Vol] 32 mg/dL 7-25 [facility] WBC Auto (Bld) [#/Vol]Ordere d By: Geeta Dumont on 03-07-2023 WBC (Bld) [#/Vol] 7.8 10*3/uL 4.1-10.5 [facility] soft tissue neck w conon 02-21-2023 CT soft tissue neck w con Normal [facility] Alanine aminotransferase [En zymatic activity/volume] in Serum or PlasmaOrdered By: Joana Farooq on 02-18-2023 ALT [Catalytic activity/Vol] 13 U/L 7-52 [facility] Albumin [Mass/volume] in Ser um or Plasma by Bromocresol green (BCG) dye binding methoOrdered By: Joana Farooq on 02-18-2023 Albumin BCG dye [Mass/Vol] 4.0 g/dL 3.5-5.7 [facility] Alkaline phosphatase [Enzyma tic activity/volume] in Serum or PlasmaOrdered By: Joana Farooq on 02-18-2023 ALP [Catalytic activity/Vol] 114 U/L 34-104 [facility] Aspartate aminotransferase [ Enzymatic activity/volume] in Serum or PlasmaOrdered By: Joana Farooq on 02-18-2023 AST [Catalytic activity/Vol] 19 U/L 13-39 [facility] Basophils Auto (Bld) [#/Vol] Ordered By: Joana Farooq on 02-18-2023 Basophils (Bld) [#/Vol] 0.0 10*3/uL 0.0-0.2 [facility] Basophils/100 WBC Auto (Bld) Ordered By: Joana Farooq on 02-18-2023 Basophils/100 WBC (Bld) 0.4 % . [facility] Bilirubin.total [Mass/volume ] in Serum or PlasmaOrdered By: Joana Farooq on 02-18-2023 Bilirubin [Mass/Vol] 0.7 mg/dL 0.3-1.0 [facility] Calcium [Mass/volume] in Ser um or PlasmaOrdered By: Joana Farooq on 02-18-2023 Calcium [Mass/Vol] 11.5 mg/dL 8.6-10.[address] [facility] Carbon dioxide, total [Moles /volume] in Serum or PlasmaOrdered By: Joana Farooq on 02-18-2023 CO2 [Moles/Vol] 29.0 mmol/L 21.0-31.0 [facility] Chloride [Moles/volume] in S [place] or PlasmaOrdered By: Joana Farooq on 02-18-2023 Chloride [Moles/Vol] 104 mmol/L 98-107 [facility] Complete Blood Count Auto Di ffon 02-18-2023 Basophils (Bld) [#/Vol] 0.0 10*3/uL Normal 0.0-0.2 [facility] Comment on above: Order Comment: Reaso n for Exam Fatigue, unspecified type;Swelling of left lower extremity;S Result Comment: PERF ORMED BY:[address] [place], [place] [phone] MEDICAL DIRECTORAPRIL VEGA M.D. Performed By: #### C BC ####[place] [id number] [facility] Basophils/100 WBC (Bld) 0.4 % Normal . [facility] Comment on above: Order Comment: Reaso n for Exam Fatigue, unspecified type;Swelling of left lower extremity;S Performed By: #### C BC ####[place] [id number] [facility] Eosinophils (Bld) [#/Vol] 0.4 10*3/uL Normal 0.0-0.45 [facility] Comment on above: Order Comment: Reaso n for Exam Fatigue, unspecified type;Swelling of left lower extremity;S Performed By: #### C BC ####[address] Eosinophils/100 WBC (Bld) 4.7 % Normal . [facility] Comment on above: Order Comment: Reaso n for Exam Fatigue, unspecified type;Swelling of left lower extremity;S Performed By: #### C BC ####[address] Erythrocyte distribution width (RBC) [Ratio] 16.1 % High 12.0-14.8 [facility] Comment on above: Order Comment: Reaso n for Exam Fatigue, unspecified type;Swelling of left lower extremity;S Performed By: #### C BC ####[address] Hematocrit (Bld) [Volume fraction] 38.8 % Normal 38.8-50.0 [facility] Comment on above: Order Comment: Reaso n for Exam Fatigue, unspecified type;Swelling of left lower extremity;S Performed By: #### C BC ####[address] Hemoglobin (Bld) [Mass/Vol] 12.9 g/dL Low 13.0-17.0 [facility] Comment on above: Order Comment: Reaso n for Exam Fatigue, unspecified type;Swelling of left lower extremity;S Performed By: #### C BC ####[address] Lymphocytes (Bld) [#/Vol] 0.7 10*3/uL Low 1.00-4.8 [facility] Comment on above: Order Comment: Reaso n for Exam Fatigue, unspecified type;Swelling of left lower extremity;S Performed By: #### C BC ####[address] Lymphocytes/100 WBC (Bld) 8.6 % Normal . [facility] Comment on above: Order Comment: Reaso n for Exam Fatigue, unspecified type;Swelling of left lower extremity;S Performed By: #### C BC ####[address] MCH (RBC) [Entitic mass] 28.0 pg Normal 27.5-35.2 [facility] Comment on above: Order Comment: Reaso n for Exam Fatigue, unspecified type;Swelling of left lower extremity;S Performed By: #### C BC ####[address] MCV (RBC) [Entitic vol] 84.1 fL Normal 83.5-101 [facility] Comment on above: Order Comment: Reaso n for Exam Fatigue, unspecified type;Swelling of left lower extremity;S Performed By: #### C BC ####[address] Mean Corpuscular HGB Conc 33.3 g/dL Normal 32.5-35.6 [facility] Comment on above: Order Comment: Reaso n for Exam Fatigue, unspecified type;Swelling of left lower extremity;S Performed By: #### C BC ####[address] Monocytes (Bld) [#/Vol] 0.7 10*3/uL Normal 0.0-0.8 [facility] Comment on above: Order Comment: Reaso n for Exam Fatigue, unspecified type;Swelling of left lower extremity;S Performed By: #### C BC ####[address] Monocytes/100 WBC (Bld) 8.2 % Normal . [facility] Comment on above: Order Comment: Reaso n for Exam Fatigue, unspecified type;Swelling of left lower extremity;S Performed By: #### C BC ####[address] Neutrophils (Bld) [#/Vol] 6.3 10*3/uL Normal 1.8-7.7 [facility] Comment on above: Order Comment: Reaso n for Exam Fatigue, unspecified type;Swelling of left lower extremity;S Performed By: #### C BC ####[address] Neutrophils/100 WBC (Bld) 78.1 % Normal . [facility] Comment on above: Order Comment: Reaso n for Exam Fatigue, unspecified type;Swelling of left lower extremity;S Performed By: #### C BC ####[address] NRBC% 0.1 /100{WBC} Normal 0-0.5 [facility] Comment on above: Order Comment: Reaso n for Exam Fatigue, unspecified type;Swelling of left lower extremity;S Performed By: #### C BC ####[address] Platelet mean volume (Bld) [Entitic vol] 7.1 fL Normal 6.6-10.1 [facility] Comment on above: Order Comment: Reaso n for Exam Fatigue, unspecified type;Swelling of left lower extremity;S Performed By: #### C BC ####[address] Platelets (Bld) [#/Vol] 235 10*3/uL Normal 150-450 [facility] Comment on above: Order Comment: Reaso n for Exam Fatigue, unspecified type;Swelling of left lower extremity;S Performed By: #### C BC ####[address] RBC (Bld) [#/Vol] 4.61 10*6/uL Normal 3.90-5.60 [facility] Comment on above: Order Comment: Reaso n for Exam Fatigue, unspecified type;Swelling of left lower extremity;S Performed By: #### C BC ####[place] [id number] [facility] WBC (Bld) [#/Vol] 8.1 10*3/uL Normal 4.1-10.[address] [facility] Comment on above: Order Comment: Reaso n for Exam Fatigue, unspecified type;Swelling of left lower extremity;S Performed By: #### C BC ####[address] Basophils (Bld) [#/Vol] 0.645436729 10*3/uL Normal 0.0-0.2 10*3/uL [employer] Other Basophils/100 WBC (Bld) 0.400 % . % [employer] Other Eosinophils (Bld) [#/Vol] 0.628825343 10*3/uL Normal 0.0-0.45 10*3/uL [employer] Other Eosinophils/100 WBC (Bld) 4.700 % . % [employer] Other Erythrocyte distribution width (RBC) [Ratio] 16.100 % High 12.0-14.8 % [employer] Other Hematocrit (Bld) [Volume fraction] 38.800 % Normal 38.8-50.0 % [employer] Other Hemoglobin (Bld) [Mass/Vol] 12.741522 g/dL Low 13.0-17.0 g/dL [employer] Other Lymphocytes (Bld) [#/Vol] 0.190531912 10*3/uL Low 1.00-4.8 10*3/uL [employer] Other Lymphocytes/100 WBC (Bld) 8.600 % . % [employer] Other MCH (RBC) [Entitic mass] 28.0000 pg Normal 27.5-35.2 pg [employer] Other MCV (RBC) [Entitic vol] 84.1000 fL Normal 83.5-101 fL [employer] Other Monocytes (Bld) [#/Vol] 0.412108601 10*3/uL Normal 0.0-0.8 10*3/uL [employer] Other Monocytes/100 WBC (Bld) 8.200 % . % [employer] Other Neutrophils (Bld) [#/Vol] 6.963370638 10*3/uL Normal 1.8-7.7 10*3/uL [employer] Other Neutrophils/100 WBC (Bld) 78.100 % . % [employer] Other Platelet mean volume (Bld) [Entitic vol] 7.1000 fL Normal 6.6-10.1 fL [employer] Other WBC (Bld) [#/Vol] 8.939517682 10*3/uL Normal 4.1 -10.5 10*3/uL [employer] Other Complete Blood Count Auto Diff 8.1 10*3/uL Normal 4.1-10.5 10*3/uL [employer] Other Complete Blood Count Auto Diff 33.3 g/dL Normal 32.5-35.6 g/dL [employer] Other Complete Blood Count Auto Diff 0.1 /100{WBC} Normal 0-0.5 /100{WBC} [employer] Other Comprehensive Metabolic Pane anny 02-18-2023 Albumin [Mass/Vol] 4.0 g/dL Normal 3.5-5.[address] [facility] Comment on above: Order Comment: Reaso n for Exam Fatigue, unspecified type;Swelling of left lower extremity;S Reason for Exam Fatigue, unspecified type Performed By: #### C MP, MG, THYROID SC ####[facility] [place] [id number] [facility] Albumin/Globulin [Mass ratio] 1.3 {ratio} Normal [facility] Comment on above: Order Comment: Reaso n for Exam Fatigue, unspecified type;Swelling of left lower extremity;S Reason for Exam Fatigue, unspecified type Performed By: #### C MP, MG, THYROID SC ####[facility] [place] [address] [facility] ALP [Catalytic activity/Vol] 114 U/L High 34-104 [facility] Comment on above: Order Comment: Reaso n for Exam Fatigue, unspecified type;Swelling of left lower extremity;S Reason for Exam Fatigue, unspecified type Performed By: #### C MP, MG, THYROID SC ####[address] ALT [Catalytic activity/Vol] 13 U/L Normal 7-52 [facility] Comment on above: Order Comment: Reaso n for Exam Fatigue, unspecified type;Swelling of left lower extremity;S Reason for Exam Fatigue, unspecified type Performed By: #### C MP, MG, THYROID SC ####[address] Anion gap [Moles/Vol] 9.0 mmol/L Normal 6.0-15.0 [facility] Comment on above: Order Comment: Reaso n for Exam Fatigue, unspecified type;Swelling of left lower extremity;S Reason for Exam Fatigue, unspecified type Performed By: #### C MP, MG, THYROID SC ####[address] AST [Catalytic activity/Vol] 19 U/L Normal 13-39 [facility] Comment on above: Order Comment: Reaso n for Exam Fatigue, unspecified type;Swelling of left lower extremity;S Reason for Exam Fatigue, unspecified type Performed By: #### C MP, MG, THYROID SC ####[address] Bilirubin [Mass/Vol] 0.7 mg/dL Normal 0.3-1.0 [facility] Comment on above: Order Comment: Reaso n for Exam Fatigue, unspecified type;Swelling of left lower extremity;S Reason for Exam Fatigue, unspecified type Performed By: #### C MP, MG, THYROID SC ####[address] Calcium [Mass/Vol] 11.5 mg/dL High 8.6-10.[address] [facility] Comment on above: Order Comment: Reaso n for Exam Fatigue, unspecified type;Swelling of left lower extremity;S Reason for Exam Fatigue, unspecified type Performed By: #### C MP, MG, THYROID SC ####[place] [address] Chloride [Moles/Vol] 104 mmol/L Normal 98-107 [facility] Comment on above: Order Comment: Reaso n for Exam Fatigue, unspecified type;Swelling of left lower extremity;S Reason for Exam Fatigue, unspecified type Performed By: #### C MP, MG, THYROID SC ####[place] [address] CO2 [Moles/Vol] 29.0 mmol/L Normal 21.0-31.0 [facility] Comment on above: Order Comment: Reaso n for Exam Fatigue, unspecified type;Swelling of left lower extremity;S Reason for Exam Fatigue, unspecified type Performed By: #### C MP, MG, THYROID SC ####[address] Creatinine [Mass/Vol] 1.23 mg/dL Normal 0.70-1.30 [facility] Comment on above: Order Comment: Reaso n for Exam Fatigue, unspecified type;Swelling of left lower extremity;S Reason for Exam Fatigue, unspecified type Performed By: #### C MP, MG, THYROID SC ####[address] GFR/1.73 sq M.predicted MDRD (S/P/Bld) [Vol rate/Area] mL/min/{1.73_m2} Normal [facility] Other Comment on above: Order Comment: Reaso n for Exam Fatigue, unspecified type;Swelling of left lower extremity;S Reason for Exam Fatigue, unspecified type Performed By: #### C MP, MG, THYROID SC ####[address] Globulin (S) [Mass/Vol] 3.0 g/dL [facility] Comment on above: Order Comment: Reaso n for Exam Fatigue, unspecified type;Swelling of left lower extremity;S Reason for Exam Fatigue, unspecified type Performed By: #### C MP, MG, THYROID SC ####[address] [place] [address] [place] Glucose [Mass/Vol] 160 mg/dL High 70-[address] [facility] Comment on above: Order Comment: Reaso n for Exam Fatigue, unspecified type;Swelling of left lower extremity;S Reason for Exam Fatigue, unspecified type Result Comment: [facility] Glucose Reference Range is dependent on time and content of last meal. Glucose of more than 200 mg/dL in a nonstressed, ambulatory subject supports the diagnosis of Diabetes Mellitus. ADA recommended reference range Performed By: #### C MP, MG, THYROID SC ####[address] Potassium [Moles/Vol] 5.0 mmol/L Normal 3.5-5.1 [facility] Comment on above: Order Comment: Reaso n for Exam Fatigue, unspecified type;Swelling of left lower extremity;S Reason for Exam Fatigue, unspecified type Performed By: #### C MP, MG, THYROID SC ####[address] Protein [Mass/Vol] 7.0 g/dL Normal 6.4-8.[address] [facility] Comment on above: Order Comment: Reaso n for Exam Fatigue, unspecified type;Swelling of left lower extremity;S Reason for Exam Fatigue, unspecified type Performed By: #### C MP, MG, THYROID SC ####[place] [id number] [facility] Sodium [Moles/Vol] 137 mmol/L Normal 136-[address] [facility] Comment on above: Order Comment: Reaso n for Exam Fatigue, unspecified type;Swelling of left lower extremity;S Reason for Exam Fatigue, unspecified type Performed By: #### C MP, MG, THYROID SC ####[place] [id number] [facility] Urea nitrogen [Mass/Vol] 22 mg/dL Normal 7-25 [facility] Comment on above: Order Comment: Reaso n for Exam Fatigue, unspecified type;Swelling of left lower extremity;S Reason for Exam Fatigue, unspecified type Performed By: #### C MP, MG, THYROID SC ####[facility] [address] [place] [address] [facility] Albumin [Mass/Vol] 4.695889 g/dL Normal 3.5-5.7 g/dL [facility] Other Bilirubin [Mass/Vol] 0.4764679 mg/dL Normal 0.3- 1.0 mg/dL [facility] Other Calcium [Mass/Vol] 11.6439995 mg/dL High 8.6-1 0.3 mg/dL [facility] Other CO2 [Moles/Vol] 29.81680516 mmol/L Normal 21.0-3 1.0 mmol/L [employer] Other Creatinine [Mass/Vol] 1.04684425 mg/dL Normal 0. 70-1.30 mg/dL [facility] Other Potassium [Moles/Vol] 5.44724199 mmol/L Normal 3 .5-5.1 mmol/L [employer] Other Protein [Mass/Vol] 7.904901 g/dL Normal 6.4-8.9 g/dL [facility] Other Comprehensive Metabolic Panel 3.0 g/dL [facility] Other Creatinine [Mass/volume] in Serum or PlasmaOrdered By: Joana Farooq on 02-18-2023 Creatinine [Mass/Vol] 1.23 mg/dL 0.70-1.30 [facility] Eosinophils Auto (Bld) [#/Vo l]Ordered By: Joana Farooq on 02-18-2023 Eosinophils (Bld) [#/Vol] 0.4 10*3/uL 0.0-0.45 [facility] Eosinophils/100 WBC Auto (Bl d)Ordered By: Joana Farooq on 02-18-2023 Eosinophils/100 WBC (Bld) 4.7 % . [facility] Erythrocyte distribution wid th Auto (RBC) [Ratio]Ordered By: Joana Farooq on 02-18-2023 Erythrocyte distribution width (RBC) [Ratio] 16.1 % 12.0-14.8 [facility] Erythrocytes [#/volume] in B lood by Automated countOrdered By: Joana Farooq on 02-18-2023 RBC (Bld) [#/Vol] 4.61 10*6/uL 3.90-5.60 [facility] Globulin Calc (S) [Mass/Vol] Ordered By: Joana Farooq on 02-18-2023 Globulin (S) [Mass/Vol] 3.0 g/dL [facility] Glucose [Mass/volume] in Ser um or PlasmaOrdered By: Joana Farooq on 02-18-2023 Glucose [Mass/Vol] 160 mg/dL 70-[address] [facility] Comment on above: ADA recommended refe rence rangeRandom Glucose Reference Range is dependent on time and content of last meal. Glucose of more than 200 mg/dL in a nonstressed, ambulatory subject supports the diagnosis of Diabetes Mellitus. Hematocrit Auto (Bld) [Volum e fraction]Ordered By: Joana Farooq on 02-18-2023 Hematocrit (Bld) [Volume fraction] 38.8 % 38.8-50.0 [facility] Hemoglobin [Mass/volume] in BloodOrdered By: Joana Farooq on 02-18-2023 Hemoglobin (Bld) [Mass/Vol] 12.9 g/dL 13.0-17.0 [facility] Leukocytes [#/volume] correc martin for nucleated erythrocytes in Blood by Automated counOrdered By: Joana Farooq on 02-18-2023 WBC corrected for nucl RBC Auto (Bld) [#/Vol] 8.1 10*3/uL 4.1-10.5 [facility] Lymphocytes Auto (Bld) [#/Vo l]Ordered By: Joana Farooq on 02-18-2023 Lymphocytes (Bld) [#/Vol] 0.7 10*3/uL 1.00-4.8 [facility] Lymphocytes/100 WBC Auto (Bl d)Ordered By: Joana Farooq on 02-18-2023 Lymphocytes/100 WBC (Bld) 8.6 % . [facility] MCH Auto (RBC) [Entitic mass ]Ordered By: Joana Farooq on 02-18-2023 MCH (RBC) [Entitic mass] 28.0 pg 27.5-35.2 [facility] MCHC Auto (RBC) [Mass/Vol]Or dered By: Joana Farooq on 02-18-2023 MCHC (RBC) [Mass/Vol] 33.3 g/dL 32.5-35.6 [facility] MCV Auto (RBC) [Entitic vol] Ordered By: Joana Farooq on 02-18-2023 MCV (RBC) [Entitic vol] 84.1 fL 83.5-101 [facility] Magnesiumon 02-18-2023 Magnesium [Mass/Vol] 2.0 mg/dL Normal 1.9-2.7 [facility] Comment on above: Order Comment: Reaso n for Exam Fatigue, unspecified type;Swelling of left lower extremity;S Reason for Exam Fatigue, unspecified type Performed By: #### C MP, MG, THYROID SC ####[facility] [address] [place] [id number] [facility] Magnesium [Mass/Vol] 2.3181742 mg/dL Normal 1.9- 2.7 mg/dL [facility] Other Magnesium [Mass/volume] in S [place] or PlasmaOrdered By: Ingris Lombardo on 02-18-2023 Magnesium [Mass/Vol] 2.0 mg/dL 1.9-2.7 [facility] Monocytes Auto (Bld) [#/Vol] Ordered By: Joana Farooq on 02-18-2023 Monocytes (Bld) [#/Vol] 0.7 10*3/uL 0.0-0.8 [facility] Monocytes/100 WBC Auto (Bld) Ordered By: Joana Farooq on 02-18-2023 Monocytes/100 WBC (Bld) 8.2 % . [facility] Neutrophils Auto (Bld) [#/Vo l]Ordered By: Joana Farooq on 02-18-2023 Neutrophils (Bld) [#/Vol] 6.3 10*3/uL 1.8-7.7 [facility] Neutrophils/100 WBC Auto (Bl d)Ordered By: Joana Farooq on 02-18-2023 Neutrophils/100 WBC (Bld) 78.1 % . [facility] No Panel InformationOrdered By: Joana Farooq on 02-18-2023 Estimated GFR (CKD-EPI) > 60.0 mL/Min [facility] Creatinine Clearance (Chem N/A [facility] Nucleated erythrocytes [Pres ence] in Blood by Automated countOrdered By: Joana Farooq on 02-18-2023 Nucleated RBC Auto Ql (Bld) 0.1 /100{WBC} 0-0.5 [facility] Platelet mean volume Auto (B ld) [Entitic vol]Ordered By: Joana Farooq on 02-18-2023 Platelet mean volume (Bld) [Entitic vol] 7.1 fL 6.6-10.1 [facility] Platelets [#/volume] in Bloo d by Automated countOrdered By: Joana Farooq on 02-18-2023 Platelets (Bld) [#/Vol] 235 10*3/uL 150-450 [facility] Potassium [Moles/volume] in Serum or PlasmaOrdered By: Joana Farooq on 02-18-2023 Potassium [Moles/Vol] 5.0 mmol/L 3.5-5.1 [facility] Protein [Mass/volume] in Ser um or PlasmaOrdered By: Joana Farooq on 02-18-2023 Protein [Mass/Vol] 7.0 g/dL 6.4-8.[address] [facility] Serum or plasma albumin/glob ulin mass ratioOrdered By: Joana Farooq on 02-18-2023 Albumin/Globulin [Mass ratio] 1.3 {ratio} [facility] Serum or plasma anion gap de terminationOrdered By: Joana Farooq on 02-18-2023 Anion gap [Moles/Vol] 9.0 mmol/L 6.0-15.0 [facility] Sodium [Moles/volume] in Ser um or PlasmaOrdered By: Joana Farooq on 02-18-2023 Sodium [Moles/Vol] 137 mmol/L 136-[address] [facility] THYROID SCREENon 02-18-2023 Free T4 [Mass/Vol] 2.33 ng/dL High 0.61-1.[address] [facility] Comment on above: Order Comment: Reaso n for Exam Fatigue, unspecified type;Swelling of left lower extremity;S Reason for Exam Fatigue, unspecified type Performed By: #### C MP, MG, THYROID SC ####[facility] [address] [place] [address] [facility] TSH Qn 3.52 m[IU]/L Normal 0.45-5.33 [facility] Comment on above: Order Comment: Reaso n for Exam Fatigue, unspecified type;Swelling of left lower extremity;S Reason for Exam Fatigue, unspecified type Result Comment: PERF ORMED BY:[address] [place], [place] [id number] MEDICAL DIRECTORAPRIL VEGA M.D. Performed By: #### C MP, MG, THYROID SC ####[place] [address] [place] [address] [facility] Free T4 [Mass/Vol] 2.92113047 ng/dL High 0.61- 1.12 ng/dL [place] [employer] Other TSH Qn 3.70455580908 m[IU]/L Normal 0.45-5 .33 u[iU]/mL [facility] [employer] Other Thyrotropin [Units/volume] i n Serum or PlasmaOrdered By: Ingris Lombardo on 02-18-2023 TSH Qn 3.52 m[IU]/L 0.45-5.33 [facility] Thyroxine (T4) free [Mass/vo lume] in Serum or PlasmaOrdered By: Ingris Lombardo on 02-18-2023 Free T4 [Mass/Vol] 2.33 ng/dL 0.61-1.[address] [facility] Urate [Mass/volume] in Serum or PlasmaOrdered By: Joana Farooq on 02-18-2023 Urate [Mass/Vol] 5.7 mg/dL 4.4-7.6 [facility] Urea nitrogen [Mass/volume] in Serum or PlasmaOrdered By: Joana Farooq on 02-18-2023 Urea nitrogen [Mass/Vol] 22 mg/dL 7 [facility] Uric Acidon 02-18-2023 Urate [Mass/Vol] 5.7 mg/dL Normal 4.4-7.6 [facility] Comment on above: Result Comment: PERF ORMED BY:[place] [address] [place], [place] [id number] MEDICAL DIRECTORAPRIL VEGA M.D. Performed By: #### U JIM ####[place] [address] [place] [address] [facility] WBC Auto (Bld) [#/Vol]Ordere d By: Joana Farooq on 02-18-2023 WBC (Bld) [#/Vol] 8.1 10*3/uL 4.1-10.[address] [facility] Albumin Levelon 02-15-2023 Albumin [Mass/Vol] 3.5 g/dL Normal 3.5-5.[address] [facility] Comment on above: Result Comment: PERF ORMED BY:[place] [address] [place], [place] [phone] MEDICAL DIRECTORAPRIL VEGA M.D. Performed By: #### A LB, BMP, MG, CBCNO ####[place] [address] [place] [address] [facility] Albumin [Mass/volume] in Ser um or Plasma by Bromocresol green (BCG) dye binding methoOrdered By: Roberto Fitch on 02-15-2023 Albumin BCG dye [Mass/Vol] 3.5 g/dL 3.5-5.7 [facility] Basic Metabolic Panelon Anion gap [Moles/Vol] 9.4 mmol/L Normal 6.0-15.0 [facility] Comment on above: Performed By: #### A LB, BMP, MG, CBCNO ####[place] [address] [place] [id number] [facility] Calcium [Mass/Vol] 10.5 mg/dL High 8.6-10.[address] [facility] Comment on above: Performed By: #### A LB, BMP, MG, CBCNO ####[place] [address] [place] [id number] [facility] Chloride [Moles/Vol] 105 mmol/L Normal 98-107 [facility] Comment on above: Performed By: #### A LB, BMP, MG, CBCNO ####[place] [address] [place] [id number] [facility] CO2 [Moles/Vol] 24.2 mmol/L Normal 21.0-31.0 [facility] Comment on above: Performed By: #### A LB, BMP, MG, CBCNO ####[place] [id number] [facility] Creatinine [Mass/Vol] 1.14 mg/dL Normal 0.70-1.30 [facility] Comment on above: Performed By: #### A LB, BMP, MG, CBCNO ####[place] [id number] [facility] Creatinine Clr Calc Pharmacy 81.85 [facility] Comment on above: Performed By: #### A LB, BMP, MG, CBCNO ####[place] [address] [place] [id number] [facility] GFR/1.73 sq M.predicted MDRD (S/P/Bld) [Vol rate/Area] mL/min/{1.73_m2} [facility] Comment on above: Performed By: #### A LB, BMP, MG, CBCNO ####[place] [address] [place] [id number] [facility] Glucose [Mass/Vol] 95 mg/dL Normal 70-[address] [facility] Comment on above: Result Comment: [place] Glucose Reference Range is dependent on time and content of last meal. Glucose of more than 200 mg/dL in a nonstressed, ambulatory subject supports the diagnosis of Diabetes Mellitus. ADA recommended reference range Performed By: #### A LB, BMP, MG, CBCNO ####[facility] [id number] [place] [id number] [facility] Potassium [Moles/Vol] 3.6 mmol/L Normal 3.5-5.1 [facility] Comment on above: Performed By: #### A LB, BMP, MG, CBCNO ####[facility] [id number] [place] [id number] [facility] Sodium [Moles/Vol] 135 mmol/L Low 136-[address] [facility] Comment on above: Performed By: #### A LB, BMP, MG, CBCNO ####[facility] [id number] [place] [id number] [facility] Urea nitrogen [Mass/Vol] 24 mg/dL Normal 7-25 [facility] Comment on above: Performed By: #### A LB, BMP, MG, CBCNO ####[facility] [id number] Calcium [Mass/volume] in Ser um or PlasmaOrdered By: Polly Velasquez on 02-15-2023 Calcium [Mass/Vol] 10.5 mg/dL 8.6-10.[address] [facility] Carbon dioxide, total [Moles /volume] in Serum or PlasmaOrdered By: Polly Velasquez on 02-15-2023 CO2 [Moles/Vol] 24.2 mmol/L 21.0-31.0 [facility] Chloride [Moles/volume] in S el[place] or PlasmaOrdered By: Polly Velasquez on 02-15-2023 Chloride [Moles/Vol] 105 mmol/L 98-107 [facility] Creatinine [Mass/volume] in Serum or PlasmaOrdered By: Polly Velasquez on 02-15-2023 Creatinine [Mass/Vol] 1.14 mg/dL 0.70-1.30 [facility] Erythrocyte distribution wid th Auto (RBC) [Ratio]Ordered By: Polly Velasquez on 02-15-2023 Erythrocyte distribution width (RBC) [Ratio] 15.8 % 12.0-14.8 [facility] Glucose Glucometer (BldC) [M ass/Vol]Ordered By: Polly Velasquez on 02-15-2023 Glucose [Mass/Vol] 118 mg/dL [facility] Comment on above: Random Glucose Refer ence Range is dependent on time and content of last meal. Glucose of more than 200 mg/dL in a nonstressed, ambulatory subject supports the diagnosis of Diabetes Mellitus. Glucose Poct Glucometerson 1 04-18-2022 Glucose [Mass/Vol] 118 mg/dL Normal [facility] Comment on above: Result Comment: [place] om Glucose Reference Range is dependent on time and content of last meal. Glucose of more than 200 mg/dL in a nonstressed, ambulatory subject supports the diagnosis of Diabetes Mellitus.PERFORMED BY:[place] [address] [place], [place] [id number] MEDICAL DIRECTORAPRIL VEGA M.D. Performed By: #### G OZZY ####Point of Care testing, Glucose [Mass/Vol] 112 mg/dL Normal [facility] Comment on above: Result Comment: [place] om Glucose Reference Range is dependent on time and content of last meal. Glucose of more than 200 mg/dL in a nonstressed, ambulatory subject supports the diagnosis of Diabetes Mellitus.PERFORMED BY:[address] [address] [place], [place] [phone] MEDICAL DIRECTORAPRIL VEGA M.D. Performed By: #### G OZZY ####Point of Care testing, Glucose [Mass/volume] in Ser um or PlasmaOrdered By: oPlly Velasquez on 02-15-2023 Glucose [Mass/Vol] 95 mg/dL 70-[address] [facility] Comment on above: ADA recommended refe rence rangeRandom Glucose Reference Range is dependent on time and content of last meal. Glucose of more than 200 mg/dL in a nonstressed, ambulatory subject supports the diagnosis of Diabetes Mellitus. Hematocrit Auto (Bld) [Volum e fraction]Ordered By: Polly Velasquez on 02-15-2023 Hematocrit (Bld) [Volume fraction] 36.9 % 38.8-50.0 [facility] Hemoglobin [Mass/volume] in BloodOrdered By: Polly Velasquez on 02-15-2023 Hemoglobin (Bld) [Mass/Vol] 12.3 g/dL 13.0-17.0 [facility] Hemogram CBC Without Diffon 02-15-2023 Erythrocyte distribution width (RBC) [Ratio] 15.8 % High 12.0-14.8 [facility] Comment on above: Performed By: #### A LB, BMP, MG, CBCNO ####[address] Hematocrit (Bld) [Volume fraction] 36.9 % Low 38.8-50.0 [facility] Comment on above: Performed By: #### A LB, BMP, MG, CBCNO ####[address] Hemoglobin (Bld) [Mass/Vol] 12.3 g/dL Low 13.0-17.0 [facility] Comment on above: Performed By: #### A LB, BMP, MG, CBCNO ####[place] [id number] [facility] MCH (RBC) [Entitic mass] 27.8 pg Normal 27.5-35.2 [facility] Comment on above: Performed By: #### A LB, BMP, MG, CBCNO ####[place] [id number] [facility] MCV (RBC) [Entitic vol] 83.4 fL Low 83.5-101 [facility] Comment on above: Performed By: #### A LB, BMP, MG, CBCNO ####[place] [id number] [facility] Mean Corpuscular HGB Conc 33.3 g/dL Normal 32.5-35.6 [facility] Comment on above: Performed By: #### A LB, BMP, MG, CBCNO ####[place] [id number] [facility] Platelet mean volume (Bld) [Entitic vol] 7.1 fL Normal 6.6-10.1 [facility] Comment on above: Result Comment: PERF ORMED BY:[id number] [place] [address] [place], [place] [phone] MEDICAL DIRECTORAPRIL VEGA M.D. Performed By: #### A LB, BMP, MG, CBCNO ####[place] [address] Platelets (Bld) [#/Vol] 182 10*3/uL Normal 150-450 [facility] Comment on above: Performed By: #### A LB, BMP, MG, CBCNO ####[place] [address] RBC (Bld) [#/Vol] 4.42 10*6/uL Normal 3.90-5.60 [facility] Comment on above: Performed By: #### A LB, BMP, MG, CBCNO ####[place] [address] WBC (Bld) [#/Vol] 7.5 10*3/uL Normal 4.1-10.[address] [facility] Comment on above: Performed By: #### A LB, BMP, MG, CBCNO ####[address] Leukocytes [#/volume] correc martin for nucleated erythrocytes in Blood by Automated counOrdered By: Polly Velasquez on 02-15-2023 WBC corrected for nucl RBC Auto (Bld) [#/Vol] 7.5 10*3/uL 4.1-10.5 [facility] MCH Auto (RBC) [Entitic mass ]Ordered By: Polly Velasquez on 02-15-2023 MCH (RBC) [Entitic mass] 27.8 pg 27.5-35.2 [facility] MCHC Auto (RBC) [Mass/Vol]Or dered By: Polly Velasquez on 02-15-2023 MCHC (RBC) [Mass/Vol] 33.3 g/dL 32.5-35.6 [facility] MCV Auto (RBC) [Entitic vol] Ordered By: Polly Velasquez on 02-15-2023 MCV (RBC) [Entitic vol] 83.4 fL 83.5-101 [facility] Magnesiumon 02-15-2023 Magnesium [Mass/Vol] 1.7 mg/dL Low 1.9-2.7 [facility] Comment on above: Performed By: #### A LB, BMP, MG, CBCNO ####[facility] [address] [place] [address] [facility] Magnesium [Mass/volume] in S [place] or PlasmaOrdered By: Roberot Fitch on 02-15-2023 Magnesium [Mass/Vol] 1.7 mg/dL 1.9-2.7 [facility] No Panel InformationOrdered By: Polly Velasquez on 02-15-2023 Estimated GFR (CKD-EPI) > 60.0 mL/Min [facility] Creatinine Clearance (Chem 81.85 [facility] Platelet mean volume Auto (B ld) [Entitic vol]Ordered By: Polly Velasquez on 02-15-2023 Platelet mean volume (Bld) [Entitic vol] 7.1 fL 6.6-10.1 [facility] Platelets Auto (Bld) [#/Vol] Ordered By: Polly Velasquez on 02-15-2023 Platelets (Bld) [#/Vol] 182 10*3/uL 150-450 [facility] Potassium [Moles/volume] in Serum or PlasmaOrdered By: Polly Velasquez on 02-15-2023 Potassium [Moles/Vol] 3.6 mmol/L 3.5-5.1 [facility] RBC Auto (Bld) [#/Vol]Ordere d By: Polly Velasquez on 02-15-2023 RBC (Bld) [#/Vol] 4.42 10*6/uL 3.90-5.60 [facility] Serum or plasma anion gap de terminationOrdered By: Polly Velasquez on 02-15-2023 Anion gap [Moles/Vol] 9.4 mmol/L 6.0-15.0 [facility] Sodium [Moles/volume] in Ser um or PlasmaOrdered By: Polly Velasquez on 02-15-2023 Sodium [Moles/Vol] 135 mmol/L 136-[address] [facility] Urea nitrogen [Mass/volume] in Serum or PlasmaOrdered By: Polly Velasquez on 02-15-2023 Urea nitrogen [Mass/Vol] 24 mg/dL 7-25 [facility] XR chest 2V*on 02-15-2023 XR chest 2V* Normal [facility] Activated partial thrombopla stin time (aPTT) in platelet poor plasma by coagulation aOrdered By: Viridiana Thompson on 02-14-2023 aPTT Coag (PPP) [Time] 30.9 s 25.1-36.5 [facility] Comment on above: A hematocrit value g reater than 55% may lead to inaccurate results in coagulation testing. Patients having hematocrit values >55% require a special collection tube for coagulation studies. Please contact the laboratory at [phone] for redraw instructions. Basic Metabolic Panelon 01-18 Anion gap [Moles/Vol] 9.4 mmol/L Normal 6.0-15.0 [facility] Comment on above: Performed By: #### P T, MG, PTT, BMP, CBC ####[facility] [id number] [place] [id number] [facility] Calcium [Mass/Vol] 10.7 mg/dL High 8.6-10.[address] [facility] Comment on above: Performed By: #### P T, MG, PTT, BMP, CBC ####[facility] [address] [place] [address] [place] Chloride [Moles/Vol] 103 mmol/L Normal 98-107 [facility] Comment on above: Performed By: #### P T, MG, PTT, BMP, CBC ####[facility] [address] [place] [address] [facility] CO2 [Moles/Vol] 25.7 mmol/L Normal 21.0-31.0 [facility] Comment on above: Performed By: #### P T, MG, PTT, BMP, CBC ####[facility] [place] [address] [facility] Creatinine [Mass/Vol] 1.36 mg/dL High 0.70-1.30 [facility] Comment on above: Performed By: #### P T, MG, PTT, BMP, CBC ####[facility] [place] [address] [facility] Creatinine Clr Calc Pharmacy 68.61 [facility] Comment on above: Performed By: #### P T, MG, PTT, BMP, CBC ####[place] [address] [place] [id number] [place] GFR/1.73 sq M.predicted MDRD (S/P/Bld) [Vol rate/Area] 57.752 mL/min/{1.73_m2} [facility] Comment on above: Performed By: #### P T, MG, PTT, BMP, CBC ####[place] [id number] [facility] Glucose [Mass/Vol] 144 mg/dL High 70-[address] [facility] Comment on above: Result Comment: [facility] Glucose Reference Range is dependent on time and content of last meal. Glucose of more than 200 mg/dL in a nonstressed, ambulatory subject supports the diagnosis of Diabetes Mellitus. ADA recommended reference range Performed By: #### P T, MG, PTT, BMP, CBC ####[place] [id number] [facility] Potassium [Moles/Vol] 4.1 mmol/L Normal 3.5-5.1 [facility] Comment on above: Performed By: #### P T, MG, PTT, BMP, CBC ####[place] [address] [place] [id number] [place] Sodium [Moles/Vol] 134 mmol/L Low 136-[address] [facility] Comment on above: Performed By: #### P T, MG, PTT, BMP, CBC ####[place] [address] [place] [id number] [facility] Urea nitrogen [Mass/Vol] 27 mg/dL High 7-25 [facility] Comment on above: Performed By: #### P T, MG, PTT, BMP, CBC ####[place] [id number] [facility] Basophils Auto (Bld) [#/Vol] Ordered By: Viridiana Thompson on 02-14-2023 Basophils (Bld) [#/Vol] 0.0 10*3/uL 0.0-0.2 [facility] Basophils/100 WBC Auto (Bld) Ordered By: Viridiana Thompson on 02-14-2023 Basophils/100 WBC (Bld) 0.6 % . [facility] Complete Blood Count Auto Di ffon 02-14-2023 Basophils (Bld) [#/Vol] 0.0 10*3/uL Normal 0.0-0.2 [facility] Comment on above: Result Comment: PERF ORMED BY:[address] [place], [place] [phone] MEDICAL DIRECTORAPRIL VEGA M.D. Performed By: #### P T, MG, PTT, BMP, CBC ####[address] Basophils/100 WBC (Bld) 0.6 % Normal . [facility] Comment on above: Performed By: #### P T, MG, PTT, BMP, CBC ####[place] [id number] [facility] Eosinophils (Bld) [#/Vol] 0.4 10*3/uL Normal 0.0-0.45 [facility] Comment on above: Performed By: #### P T, MG, PTT, BMP, CBC ####[place] [id number] [facility] Eosinophils/100 WBC (Bld) 6.1 % Normal . [facility] Comment on above: Performed By: #### P T, MG, PTT, BMP, CBC ####[address] Erythrocyte distribution width (RBC) [Ratio] 15.8 % High 12.0-14.8 [facility] Comment on above: Performed By: #### P T, MG, PTT, BMP, CBC ####[address] Hematocrit (Bld) [Volume fraction] 37.3 % Low 38.8-50.0 [facility] Comment on above: Performed By: #### P T, MG, PTT, BMP, CBC ####[address] Hemoglobin (Bld) [Mass/Vol] 12.4 g/dL Low 13.0-17.0 [facility] Comment on above: Performed By: #### P T, MG, PTT, BMP, CBC ####[address] Lymphocytes (Bld) [#/Vol] 0.9 10*3/uL Low 1.00-4.8 [facility] Comment on above: Performed By: #### P T, MG, PTT, BMP, CBC ####[address] Lymphocytes/100 WBC (Bld) 15.0 % Normal . [facility] Comment on above: Performed By: #### P T, MG, PTT, BMP, CBC ####[address] MCH (RBC) [Entitic mass] 27.9 pg Normal 27.5-35.2 [facility] Comment on above: Performed By: #### P T, MG, PTT, BMP, CBC ####[address] MCV (RBC) [Entitic vol] 84.2 fL Normal 83.5-101 [facility] Comment on above: Performed By: #### P T, MG, PTT, BMP, CBC ####[address] Mean Corpuscular HGB Conc 33.2 g/dL Normal 32.5-35.6 [facility] Comment on above: Performed By: #### P T, MG, PTT, BMP, CBC ####[address] Monocytes (Bld) [#/Vol] 0.7 10*3/uL Normal 0.0-0.8 [facility] Comment on above: Performed By: #### P T, MG, PTT, BMP, CBC ####[address] Monocytes/100 WBC (Bld) 11.8 % Normal . [facility] Comment on above: Performed By: #### P T, MG, PTT, BMP, CBC ####[address] Neutrophils (Bld) [#/Vol] 4.0 10*3/uL Normal 1.8-7.7 [facility] Comment on above: Performed By: #### P T, MG, PTT, BMP, CBC ####[address] Neutrophils/100 WBC (Bld) 66.5 % Normal . [facility] Comment on above: Performed By: #### P T, MG, PTT, BMP, CBC ####[address] NRBC% 0.2 /100{WBC} Normal 0-0.5 [facility] Comment on above: Performed By: #### P T, MG, PTT, BMP, CBC ####[address] Platelet mean volume (Bld) [Entitic vol] 7.0 fL Normal 6.6-10.1 [facility] Comment on above: Performed By: #### P T, MG, PTT, BMP, CBC ####[address] Platelets (Bld) [#/Vol] 182 10*3/uL Normal 150-450 [facility] Comment on above: Performed By: #### P T, MG, PTT, BMP, CBC ####[address] RBC (Bld) [#/Vol] 4.43 10*6/uL Normal 3.90-5.60 [facility] Comment on above: Performed By: #### P T, MG, PTT, BMP, CBC ####[facility] [id number] WBC (Bld) [#/Vol] 6.0 10*3/uL Normal 4.1-10.[address] [facility] Comment on above: Performed By: #### P T, MG, PTT, BMP, CBC ####[facility] ECG 12 lead ECGon 02-14-2023 ECG 12 lead ECG Normal [facility] Eosinophils Auto (Bld) [#/Vo l]Ordered By: Viridiana Thompson on 02-14-2023 Eosinophils (Bld) [#/Vol] 0.4 10*3/uL 0.0-0.45 [facility] Eosinophils/100 WBC Auto (Bl d)Ordered By: Viridiana Thompson on 02-14-2023 Eosinophils/100 WBC (Bld) 6.1 % . [facility] Glucose Poct Glucometerson 1 04-16-2022 Commemt1 Glu2: Cleaned Meter [facility] Comment on above: Result Comment: PERF ORMED BY:[place] [address] [place] [place], [place] [phone] MEDICAL DIRECTORAPRIL VEGA M.D. Performed By: #### G LULS ####Point of Care testing, Glucose [Mass/Vol] 115 mg/dL Normal [facility] Comment on above: Result Comment: [facility] Glucose Reference Range is dependent on time and content of last meal. Glucose of more than 200 mg/dL in a nonstressed, ambulatory subject supports the diagnosis of Diabetes Mellitus. Performed By: #### G LULS ####Point of Care testing, Commemt1 Glu2: Cleaned Meter Normal [facility] Comment on above: Result Comment: PERF ORMED BY:[place] [address] [address] [place], [place] [phone] MEDICAL DIRECTORAPRIL VEGA M.D. Performed By: #### G LULS ####Point of Care testing, Glucose [Mass/Vol] 171 mg/dL Normal [facility] Comment on above: Result Comment: [place] [facility] Glucose Reference Range is dependent on time and content of last meal. Glucose of more than 200 mg/dL in a nonstressed, ambulatory subject supports the diagnosis of Diabetes Mellitus. Performed By: #### G LULS ####Point of Care testing, Commemt1 Glu2: Cleaned Meter [facility] Comment on above: Result Comment: PERF ORMED BY:[address] [place], [place] [phone] MEDICAL DIRECTORAPRIL VEGA M.D. Performed By: #### G LULS ####Point of Care testing, Glucose [Mass/Vol] 189 mg/dL Normal [facility] Comment on above: Result Comment: [place] [facility] Glucose Reference Range is dependent on time and content of last meal. Glucose of more than 200 mg/dL in a nonstressed, ambulatory subject supports the diagnosis of Diabetes Mellitus. Performed By: #### G LULS ####Point of Care testing, Commemt1 Glu2: Cleaned Meter [facility] Comment on above: Result Comment: PERF ORMED BY:[place] [address] [place] [place], [place] [phone] MEDICAL JORGE VEGA M.D. Performed By: #### G LULS ####Point of Care testing, Glucose [Mass/Vol] 148 mg/dL Normal [facility] Comment on above: Result Comment: [place] [facility] Glucose Reference Range is dependent on time and content of last meal. Glucose of more than 200 mg/dL in a nonstressed, ambulatory subject supports the diagnosis of Diabetes Mellitus. Performed By: #### G LULS ####Point of Care testing, Commemt1 Glu2: Cleaned Meter [facility] Comment on above: Result Comment: PERF ORMED BY:[place] [address] [address] [place], [place] [phone] MEDICAL DIRECTORAPRIL VEGA M.D. Performed By: #### G LULS ####Point of Care testing, Glucose [Mass/Vol] 144 mg/dL Normal [facility] Comment on above: Result Comment: [facility] Glucose Reference Range is dependent on time and content of last meal. Glucose of more than 200 mg/dL in a nonstressed, ambulatory subject supports the diagnosis of Diabetes Mellitus. Performed By: #### G LULS ####Point of Care testing, INR in Platelet poor plasma by Coagulation assayOrdered By: Viridiana Thompson on 02-14-2023 INR Coag (PPP) [Relative time] 1.0 {INR} [facility] Comment on above: INR Therapeutic Rang [...] 02-14-2023 Lymphocytes (Bld) [#/Vol] 0.9 10*3/uL 1.00-4.8 [facility] Lymphocytes/100 WBC Auto (Bl d)Ordered By: Viridiana Thompson on 02-14-2023 Lymphocytes/100 WBC (Bld) 15.0 % . [facility] Magnesiumon 02-14-2023 Magnesium [Mass/Vol] 1.8 mg/dL Low 1.9-2.7 [facility] Comment on above: Result Comment: PERF ORMED BY:[facility] [place], [place] [phone] MEDICAL DIRECTORAPRIL VEGA M.D. Performed By: #### P T, MG, PTT, BMP, CBC ####[facility] [id number] [place] [address] [place] Monocytes Auto (Bld) [#/Vol] Ordered By: Viridiana Thompson on 02-14-2023 Monocytes (Bld) [#/Vol] 0.7 10*3/uL 0.0-0.8 [facility] Monocytes/100 WBC Auto (Bld) Ordered By: Viridiana Thompson on 02-14-2023 Monocytes/100 WBC (Bld) 11.8 % . [facility] Neutrophils Auto (Bld) [#/Vo l]Ordered By: Viridiana Thompson on 02-14-2023 Neutrophils (Bld) [#/Vol] 4.0 10*3/uL 1.8-7.7 [facility] Neutrophils/100 WBC Auto (Bl d)Ordered By: Viridiana Thompson on 02-14-2023 Neutrophils/100 WBC (Bld) 66.5 % . [facility] No Panel InformationOrdered By: Roberto Fitch on 02-14-2023 Bedside Glucose Comment Glu2: cleaned meter [facility] Nucleated erythrocytes [Pres ence] in Blood by Automated countOrdered By: Viridiana Thompson on 02-14-2023 Nucleated RBC Auto Ql (Bld) 0.2 /100{WBC} 0-0.5 [facility] Partial Thromboplastin Timeo n 02-14-2023 aPTT Coag (Bld) [Time] 30.9 s Normal 25.1-36.5 [facility] Comment on above: Result Comment: A he matocrit value greater than 55% may lead to inaccurate results in coagulation testing. Patients having hematocrit values >55% require a special collection tube for coagulation studies. Please contact the laboratory at [phone] for redraw instructions.PERFORMED BY:[facility] [place], [place] [phone] MEDICAL DIRECTORAPRIL VEGA M.D. Performed By: #### P T, MG, PTT, BMP, CBC ####[facility] [place] [address] [facility] Prothrombin Time INRon 02-14 INR Coag (PPP) [Relative time] 1.0 {INR} Normal [facility] Comment on above: Result Comment: INR [...] #### P T, MG, PTT, BMP, CBC ####[facility] [address] [place] [address] [facility] PT Coag (PPP) [Time] 11.9 s Normal 9.0-12.9 [facility] Comment on above: Result Comment: A he matocrit value greater than 55% may lead to inaccurate results in coagulation testing. Patients having hematocrit values >55% require a special collection tube for coagulation studies. Please contact the laboratory at [phone] for redraw instructions. Performed By: #### P T, MG, PTT, BMP, CBC ####[facility] [place] [address] [facility] Prothrombin time (PT)Ordered By: Viridiana Thompson on 02-14-2023 PT Coag (PPP) [Time] 11.9 s 9.0-12.9 [facility] Comment on above: A hematocrit value g reater than 55% may lead to inaccurate results in coagulation testing. Patients having hematocrit values >55% require a special collection tube for coagulation studies. Please contact the laboratory at [phone] for redraw instructions. WBC Auto (Bld) [#/Vol]Ordere d By: Viridiana Thompson on 02-14-2023 WBC (Bld) [#/Vol] 6.0 10*3/uL 4.1-10.[address] [facility] XR chest 1V portableon 02-14 XR chest 1V portable Normal [facility] Basic Metabolic Panelon 01-17 Anion gap [Moles/Vol] 9.0 mmol/L Normal 6.0-15.0 [facility] Comment on above: Performed By: #### M G, BMP, CBCNO ####[facility] [place] [address] [facility] Calcium [Mass/Vol] 10.9 mg/dL High 8.6-10.[address] [facility] Comment on above: Performed By: #### LUIS Bee, CBCNO ####[place] [address] [place] [id number] [facility] Chloride [Moles/Vol] 104 mmol/L Normal 98-107 [facility] Comment on above: Performed By: #### LUIS Bee, CBCNO ####[place] [address] [place] [address] [facility] CO2 [Moles/Vol] 25.9 mmol/L Normal 21.0-31.0 [facility] Comment on above: Performed By: #### LUIS Bee, CBCNO ####[place] [address] [place] [id number] [facility] Creatinine [Mass/Vol] 1.29 mg/dL Normal 0.70-1.30 [facility] Comment on above: Performed By: #### LUIS Bee, CBCNO ####[place] [address] [place] [id number] [facility] Creatinine Clr Calc Pharmacy 72.38 [facility] Comment on above: Performed By: #### LUIS Bee, CBCNO ####[place] [id number] [facility] GFR/1.73 sq M.predicted MDRD (S/P/Bld) [Vol rate/Area] mL/min/{1.73_m2} [facility] Comment on above: Performed By: #### LUIS Bee, CBCNO ####[place] [id number] [facility] Glucose [Mass/Vol] 145 mg/dL High 70-[address] [facility] Comment on above: Result Comment: [place] Glucose Reference Range is dependent on time and content of last meal. Glucose of more than 200 mg/dL in a nonstressed, ambulatory subject supports the diagnosis of Diabetes Mellitus. ADA recommended reference range Performed By: #### LUIS Bee, CBCNO ####[place] [address] [place] [id number] [facility] Potassium [Moles/Vol] 4.9 mmol/L Normal 3.5-5.1 [facility] Comment on above: Performed By: #### M LUIS Snowden, CBCNO ####[facility] [address] [place] [address] [facility] Sodium [Moles/Vol] 134 mmol/L Low 136-[address] [facility] Comment on above: Performed By: #### M LUIS Snowden, CBCNO ####[facility] [address] [place] [address] [facility] Urea nitrogen [Mass/Vol] 29 mg/dL High 7-25 [facility] Comment on above: Performed By: #### M LUIS Snowden, CBCNO ####[facility] Azp[address] [place] [address] [facility] Glucose Poct Glucometerson 04-15-2022 Glucose [Mass/Vol] 169 mg/dL Normal [facility] Comment on above: Result Comment: [place] Glucose Reference Range is dependent on time and content of last meal. Glucose of more than 200 mg/dL in a nonstressed, ambulatory subject supports the diagnosis of Diabetes Mellitus.PERFORMED BY:[place] [address] [place], [place] [phone] MEDICAL DIRECTORAPRIL VEGA M.D. Performed By: #### G LULS ####Point of Care testing, Commemt1 Glu2: Cleaned Meter [facility] Comment on above: Result Comment: PERF ORMED BY:[place] [address] [place], [place] [phone] MEDICAL DIRECTORAPRIL VEGA M.D. Performed By: #### G LULS ####Point of Care testing, Glucose [Mass/Vol] 131 mg/dL Normal [facility] Comment on above: Result Comment: [place] Glucose Reference Range is dependent on time and content of last meal. Glucose of more than 200 mg/dL in a nonstressed, ambulatory subject supports the diagnosis of Diabetes Mellitus. Performed By: #### G LULS ####Point of Care testing, Commemt1 Glu2: Cleaned Meter [facility] Comment on above: Result Comment: PERF ORMED BY:[address] [place], [place] [phone] MEDICAL DIRECTORAPRIL VEGA M.D. Performed By: #### G LULS ####Point of Care testing, Glucose [Mass/Vol] 202 mg/dL Normal [facility] Comment on above: Result Comment: [facility] Glucose Reference Range is dependent on time and content of last meal. Glucose of more than 200 mg/dL in a nonstressed, ambulatory subject supports the diagnosis of Diabetes Mellitus. Performed By: #### G LULS ####Point of Care testing, Hemogram CBC Without Diffon 02-13-2023 Erythrocyte distribution width (RBC) [Ratio] 15.7 % High 12.0-14.8 [facility] Comment on above: Performed By: #### M LUIS Snowden, CBCNO ####[address] Hematocrit (Bld) [Volume fraction] 35.0 % Low 38.8-50.0 [facility] Comment on above: Performed By: #### LUIS Bee, CBCNO ####[place] [id number] [facility] Hemoglobin (Bld) [Mass/Vol] 11.6 g/dL Low 13.0-17.0 [facility] Comment on above: Performed By: #### LUIS Bee, CBCNO ####[place] [id number] [facility] MCH (RBC) [Entitic mass] 28.0 pg Normal 27.5-35.2 [facility] Comment on above: Performed By: #### LUIS Bee, CBCNO ####[place] [id number] [facility] MCV (RBC) [Entitic vol] 84.2 fL Normal 83.5-101 [facility] Comment on above: Performed By: #### LUIS Bee, CBCNO ####[place] [id number] [facility] Mean Corpuscular HGB Conc 33.2 g/dL Normal 32.5-35.6 [facility] Comment on above: Performed By: #### LUIS Bee CBCNO ####[place] [id number] [facility] Platelet mean volume (Bld) [Entitic vol] 7.1 fL Normal 6.6-10.1 [facility] Comment on above: Result Comment: PERF ORMED BY:[place] [address] [place], [place] [phone] MEDICAL DIRECTORAPRIL VEGA M.D. Performed By: #### LUIS Bee CBCNO ####[address] Platelets (Bld) [#/Vol] 181 10*3/uL Normal 150-450 [facility] Comment on above: Performed By: #### LUIS Bee CBCNO ####[address] RBC (Bld) [#/Vol] 4.15 10*6/uL Normal 3.90-5.60 [facility] Comment on above: Performed By: #### LUIS Bee CBCNO ####[address] WBC (Bld) [#/Vol] 5.8 10*3/uL Normal 4.1-10.[address] [facility] Comment on above: Performed By: #### LUIS Bee CBCNO ####[place] [id number] [facility] Magnesiumon 02-13-2023 Magnesium [Mass/Vol] 1.9 mg/dL Normal 1.9-2.7 [facility] Comment on above: Result Comment: PERF ORMED BY:[place] [address] [place], [place] [phone] MEDICAL JORGE VEGA M.D. Performed By: #### LUIS Bee CBCNO ####[address] [address] [facility] [facility] Alanine aminotransferase [En zymatic activity/volume] in Serum or PlasmaOrdered By: Humberto Zeng on 02-12-2023 ALT [Catalytic activity/Vol] 13 U/L 7-52 [facility] Alkaline phosphatase [Enzyma tic activity/volume] in Serum or PlasmaOrdered By: Humbertosuhas Zeng on 02-12-2023 ALP [Catalytic activity/Vol] 103 U/L 34-104 [facility] Aspartate aminotransferase [ Enzymatic activity/volume] in Serum or PlasmaOrdered By: Humberto Zeng on 02-12-2023 AST [Catalytic activity/Vol] 20 U/L 13-39 [facility] B-Type Natriuretic Peptideon 02-12-2023 Natriuretic peptide B (Bld) [Mass/Vol] 151.0 pg/mL High 5-100 [facility] Comment on above: Result Comment: PERF ORMED BY:[address], [place] [phone] MEDICAL DIRECTORAPRIL VEGA M.D. Performed By: #### B CLEAN UP WORKER ####[address] [address] [facility] Bilirubin.total [Mass/volume ] in Serum or PlasmaOrdered By: Humberto Zeng on 02-12-2023 Bilirubin [Mass/Vol] 0.5 mg/dL 0.3-1.0 [facility] Complete Blood Count Auto Di ffon 02-12-2023 Basophils (Bld) [#/Vol] 0.0 10*3/uL Normal 0.0-0.2 [facility] Comment on above: Result Comment: PERF ORMED BY:[address] [place], [place] [phone] MEDICAL DIRECTORAPRIL VEGA M.D. Performed By: #### C BC, MG, CK, HS TROP, CMP, PT, PTT ####[address] [address] [facility] Basophils/100 WBC (Bld) 0.6 % Normal . [facility] Comment on above: Performed By: #### C BC, MG, CK, HS TROP, CMP, PT, PTT ####[address] Eosinophils (Bld) [#/Vol] 0.4 10*3/uL Normal 0.0-0.45 [facility] Comment on above: Performed By: #### C BC, MG, CK, HS TROP, CMP, PT, PTT ####[address] Eosinophils/100 WBC (Bld) 6.2 % Normal . [facility] Comment on above: Performed By: #### C BC, MG, CK, HS TROP, CMP, PT, PTT ####[address] Erythrocyte distribution width (RBC) [Ratio] 15.9 % High 12.0-14.8 [facility] Comment on above: Performed By: #### C BC, MG, CK, HS TROP, CMP, PT, PTT ####[address] Hematocrit (Bld) [Volume fraction] 38.8 % Normal 38.8-50.0 [facility] Comment on above: Performed By: #### C BC, MG, CK, HS TROP, CMP, PT, PTT ####[address] Hemoglobin (Bld) [Mass/Vol] 12.7 g/dL Low 13.0-17.0 [facility] Comment on above: Performed By: #### C BC, MG, CK, HS TROP, CMP, PT, PTT ####[address] Lymphocytes (Bld) [#/Vol] 1.1 10*3/uL Normal 1.00-4.8 [facility] Comment on above: Performed By: #### C BC, MG, CK, HS TROP, CMP, PT, PTT ####[address] Lymphocytes/100 WBC (Bld) 18.7 % Normal . [facility] Comment on above: Performed By: #### C BC, MG, CK, HS TROP, CMP, PT, PTT ####[address] MCH (RBC) [Entitic mass] 27.7 pg Normal 27.5-35.2 [facility] Comment on above: Performed By: #### C BC, MG, CK, HS TROP, CMP, PT, PTT ####[address] MCV (RBC) [Entitic vol] 84.8 fL Normal 83.5-101 [facility] Comment on above: Performed By: #### C BC, MG, CK, HS TROP, CMP, PT, PTT ####[address] Mean Corpuscular HGB Conc 32.7 g/dL Normal 32.5-35.6 [facility] Comment on above: Performed By: #### C BC, MG, CK, HS TROP, CMP, PT, PTT ####[address] Monocytes (Bld) [#/Vol] 0.6 10*3/uL Normal 0.0-0.8 [facility] Comment on above: Performed By: #### C BC, MG, CK, HS TROP, CMP, PT, PTT ####[address] Monocytes/100 WBC (Bld) 15.38 % Normal 0.00-20.00 [facility] Comment on above: Performed By: #### C BC, MG, CK, HS TROP, CMP, PT, PTT ####[address] Monocytes/100 WBC (Bld) 10.7 % Normal . [facility] Comment on above: Performed By: #### C BC, MG, CK, HS TROP, CMP, PT, PTT ####[address] Neutrophils (Bld) [#/Vol] 3.9 10*3/uL Normal 1.8-7.7 [facility] Comment on above: Performed By: #### C BC, MG, CK, HS TROP, CMP, PT, PTT ####[address] Neutrophils/100 WBC (Bld) 63.8 % Normal . [facility] Comment on above: Performed By: #### C BC, MG, CK, HS TROP, CMP, PT, PTT ####[address] NRBC% 0.1 /100{WBC} Normal 0-0.5 [facility] Comment on above: Performed By: #### C BC, MG, CK, HS TROP, CMP, PT, PTT ####[address] Platelet mean volume (Bld) [Entitic vol] 7.2 fL Normal 6.6-10.1 [facility] Comment on above: Performed By: #### C BC, MG, CK, HS TROP, CMP, PT, PTT ####[address] Platelets (Bld) [#/Vol] 205 10*3/uL Normal 150-450 [facility] Comment on above: Performed By: #### C BC, MG, CK, HS TROP, CMP, PT, PTT ####[address] RBC (Bld) [#/Vol] 4.58 10*6/uL Normal 3.90-5.60 [facility] Comment on above: Performed By: #### C BC, MG, CK, HS TROP, CMP, PT, PTT ####[address] WBC (Bld) [#/Vol] 6.1 10*3/uL Normal 4.1-10.[address] [facility] Comment on above: Performed By: #### C BC, MG, CK, HS TROP, CMP, PT, PTT ####[address] [place] [address] [place] Comprehensive Metabolic Pane anny 02-12-2023 Albumin [Mass/Vol] 4.0 g/dL Normal 3.5-5.[address] [facility] Comment on above: Performed By: #### C BC, MG, CK, HS TROP, CMP, PT, PTT ####[address] Albumin/Globulin [Mass ratio] 1.3 {ratio} Normal [facility] Comment on above: Performed By: #### C BC, MG, CK, HS TROP, CMP, PT, PTT ####[address] ALP [Catalytic activity/Vol] 103 U/L Normal 34-104 [facility] Comment on above: Performed By: #### C BC, MG, CK, HS TROP, CMP, PT, PTT ####[address] ALT [Catalytic activity/Vol] 13 U/L Normal 7-52 [facility] Comment on above: Performed By: #### C BC, MG, CK, HS TROP, CMP, PT, PTT ####[address] Anion gap [Moles/Vol] 8.9 mmol/L Normal 6.0-15.0 [facility] Comment on above: Performed By: #### C BC, MG, CK, HS TROP, CMP, PT, PTT ####[address] AST [Catalytic activity/Vol] 20 U/L Normal 13-39 [facility] Comment on above: Performed By: #### C BC, MG, CK, HS TROP, CMP, PT, PTT ####[address] Bilirubin [Mass/Vol] 0.5 mg/dL Normal 0.3-1.0 [facility] Comment on above: Performed By: #### C BC, MG, CK, HS TROP, CMP, PT, PTT ####[address] [place] [address] [place] Calcium [Mass/Vol] 11.3 mg/dL High 8.6-10.[address] [facility] Comment on above: Performed By: #### C BC, MG, CK, HS TROP, CMP, PT, PTT ####[address] Chloride [Moles/Vol] 103 mmol/L Normal 98-107 [facility] Comment on above: Performed By: #### C BC, MG, CK, HS TROP, CMP, PT, PTT ####[address] CO2 [Moles/Vol] 28.3 mmol/L Normal 21.0-31.0 [facility] Comment on above: Performed By: #### C BC, MG, CK, HS TROP, CMP, PT, PTT ####[address] Creatinine [Mass/Vol] 1.33 mg/dL High 0.70-1.30 [facility] Comment on above: Performed By: #### C BC, MG, CK, HS TROP, CMP, PT, PTT ####[address] Creatinine Clr Calc Pharmacy 70.20 [facility] Comment on above: Performed By: #### C BC, MG, CK, HS TROP, CMP, PT, PTT ####[address] GFR/1.73 sq M.predicted MDRD (S/P/Bld) [Vol rate/Area] 59.319 mL/min/{1.73_m2} [facility] Comment on above: Performed By: #### C BC, MG, CK, HS TROP, CMP, PT, PTT ####[address] Globulin (S) [Mass/Vol] 3.2 g/dL [facility] Comment on above: Performed By: #### C BC, MG, CK, HS TROP, CMP, PT, PTT ####[address] [place] [address] [facility] Glucose [Mass/Vol] 177 mg/dL High 70-[address] [facility] Comment on above: Result Comment: [place] Glucose Reference Range is dependent on time and content of last meal. Glucose of more than 200 mg/dL in a nonstressed, ambulatory subject supports the diagnosis of Diabetes Mellitus. ADA recommended reference range Performed By: #### C BC, MG, CK, HS TROP, CMP, PT, PTT ####[id number] [facility] Potassium [Moles/Vol] 4.2 mmol/L Normal 3.5-5.1 [facility] Comment on above: Performed By: #### C BC, MG, CK, HS TROP, CMP, PT, PTT ####[id number] [facility] Protein [Mass/Vol] 7.2 g/dL Normal 6.4-8.[address] [facility] Comment on above: Performed By: #### C BC, MG, CK, HS TROP, CMP, PT, PTT ####[id number] [facility] Sodium [Moles/Vol] 136 mmol/L Normal 136-[address] [facility] Comment on above: Performed By: #### C BC, MG, CK, HS TROP, CMP, PT, PTT ####[id number] [facility] Urea nitrogen [Mass/Vol] 30 mg/dL High 7-25 [facility] Comment on above: Performed By: #### C BC, MG, CK, HS TROP, CMP, PT, PTT ####[id number] [facility] Creatine Kinaseon 02-12-2023 CK [Catalytic activity/Vol] 102 U/L Normal 30-223 [facility] Comment on above: Performed By: #### C BC, MG, CK, HS TROP, CMP, PT, PTT ####[address] [place] [address] [facility] Creatine kinase [Enzymatic a ctivity/volume] in Serum or PlasmaOrdered By: Humbertosuhas Zeng on 02-12-2023 CK [Catalytic activity/Vol] 102 U/L 30-223 [facility] ECG 12 lead ECGon 02-12-2023 ECG 12 lead ECG Normal [facility] Globulin Calc (S) [Mass/Vol] Ordered By: Humberto Zeng on 02-12-2023 Globulin (S) [Mass/Vol] 3.2 g/dL [facility] Glucose Poct Glucometerson 1 04-14-2022 Commemt1 Glu2: Cleaned Meter [facility] Comment on above: Result Comment: PERF ORMED BY:[address] [place], [place] [phone] MEDICAL DIRECTORAPRIL VEGA M.D. Performed By: #### G LULS ####Point of Care testing, Glucose [Mass/Vol] 118 mg/dL [facility] Comment on above: Result Comment: [facility] Glucose Reference Range is dependent on time and content of last meal. Glucose of more than 200 mg/dL in a nonstressed, ambulatory subject supports the diagnosis of Diabetes Mellitus. Performed By: #### G LULS ####Point of Care testing, Commemt1 [facility] Comment on above: Result Comment: Glu2 : WILL NOTIFY DR/RN Performed By: #### G LULS ####Point of Care testing, Commemt2 Cleaned Meter [facility] Comment on above: Result Comment: PERF ORMED BY:[address] [place], [place] [phone] MEDICAL DIRECTORAPRIL VEGA M.D. Performed By: #### G LULS ####Point of Care testing, Glucose [Mass/Vol] 171 mg/dL [facility] Comment on above: Result Comment: [place] Glucose Reference Range is dependent on time and content of last meal. Glucose of more than 200 mg/dL in a nonstressed, ambulatory subject supports the diagnosis of Diabetes Mellitus. Performed By: #### G LULS ####Point of Care testing, Magnesiumon 02-12-2023 Magnesium [Mass/Vol] 2.0 mg/dL Normal 1.9-2.7 [facility] Comment on above: Result Comment: PERF ORMED BY:[address] [place], [place] [phone] MEDICAL DIRECTORAPRIL VEGA M.D. Performed By: #### C BC, MG, CK, HS TROP, CMP, PT, PTT ####[address] [place] [address] [place] Monocyte distribution width [Entitic volume] in Blood by AutomatedOrdered By: Humberto Zeng on 02-12-2023 Monocyte distribution width Auto (Bld) [Entitic vol] 15.38 % 0.00-20.00 [facility] Natriuretic peptide B [Mass/ Vol]Ordered By: Humberto Zeng on 02-12-2023 Natriuretic peptide B (Bld) [Mass/Vol] 151.0 pg/mL 5-100 [facility] No Panel InformationOrdered By: Humberto Zeng on 02-12-2023 Bedside Glucose #2 Comment Cleaned meter [facility] Partial Thromboplastin Timeo n 02-12-2023 aPTT Coag (Bld) [Time] 32.1 s Normal 25.1-36.5 [facility] Comment on above: Result Comment: A he matocrit value greater than 55% may lead to inaccurate results in coagulation testing. Patients having hematocrit values >55% require a special collection tube for coagulation studies. Please contact the laboratory at [phone] for redraw instructions.PERFORMED BY:[address] [place], [place] [phone] MEDICAL DIRECTORAPRIL VEGA M.D. Performed By: #### C BC, MG, CK, HS TROP, CMP, PT, PTT ####[address] [place] [address] [facility] Protein [Mass/volume] in Ser um or PlasmaOrdered By: Humberto Zeng on 02-12-2023 Protein [Mass/Vol] 7.2 g/dL 6.4-8.[address] [facility] Prothrombin Time INRon 02-12 INR Coag (PPP) [Relative time] 1.0 {INR} Normal [facility] Comment on above: Result Comment: INR [...] MG, CK, HS TROP, CMP, PT, PTT ####[address] [place] [address] [facility] PT Coag (PPP) [Time] 11.5 s Normal 9.0-12.9 [facility] Comment on above: Result Comment: A he matocrit value greater than 55% may lead to inaccurate results in coagulation testing. Patients having hematocrit values >55% require a special collection tube for coagulation studies. Please contact the laboratory at [phone] for redraw instructions. Performed By: #### C BC, MG, CK, HS TROP, CMP, PT, PTT ####[address] [address] [facility] Serum or plasma albumin/glob ulin mass ratioOrdered By: Humberto Zeng on 02-12-2023 Albumin/Globulin [Mass ratio] 1.3 {ratio} [facility] Troponin I High Sensitivityo n 02-12-2023 Troponin I High Sensitivity 12.0 pg/mL Normal 0.0-20.0 [facility] Comment on above: Result Comment: PERF ORMED BY:[address] [place], [place] [phone] MEDICAL DIRECTORAPRIL VEGA M.D. Performed By: #### C BC, MG, CK, HS TROP, CMP, PT, PTT ####[address] [place] [address] [facility] Troponin I.cardiac [Mass/vol ume] in Serum or Plasma by Detection limit <= 0.01 ng/Ordered By: Humberto Zeng on 02-12-2023 Troponin I.cardiac DL <= 0.01 ng/mL [Mass/Vol] 12.0 pg/mL 0.0-20.0 [facility] XR chest 1V portableon 02-12 XR chest 1V portable Normal [facility] Albumin [Mass/volume] in Ser um or Plasma by Bromocresol green (BCG) dye binding methoOrdered By: Mina Reilly on 02-10-2023 Albumin BCG dye [Mass/Vol] 3.8 g/dL 3.5-5.7 [facility] Calcium [Mass/volume] in Ser um or PlasmaOrdered By: Mina Reilly on 02-10-2023 Calcium [Mass/Vol] 10.8 mg/dL 8.6-10.[address] [facility] Carbon dioxide, total [Moles /volume] in Serum or PlasmaOrdered By: Mina Reilly on 02-10-2023 CO2 [Moles/Vol] 29.9 mmol/L 21.0-31.0 [facility] Chloride [Moles/volume] in S [place] or PlasmaOrdered By: Mina Reilly on 02-10-2023 Chloride [Moles/Vol] 99 mmol/L 98-107 [facility] Creatinine [Mass/volume] in Serum or PlasmaOrdered By: Mina Reilly on 02-10-2023 Creatinine [Mass/Vol] 1.58 mg/dL 0.70-1.30 [facility] Glucose [Mass/volume] in Ser um or PlasmaOrdered By: Mina Reilly on 02-10-2023 Glucose [Mass/Vol] 114 mg/dL 70-[address] [facility] Comment on above: ADA recommended refe rence rangeRandom Glucose Reference Range is dependent on time and content of last meal. Glucose of more than 200 mg/dL in a nonstressed, ambulatory subject supports the diagnosis of Diabetes Mellitus. Magnesiumon 02-10-2023 Magnesium [Mass/Vol] 2.0 mg/dL Normal 1.9-2.7 [facility] Comment on above: Result Comment: PERF ORMED BY:[facility] [place], [place] [phone] MEDICAL DIRECTORAPRIL VEGA M.D. Performed By: #### Mary VEGA MG ####[address] [place] [address] [facility] Magnesium [Mass/volume] in S elmira or PlasmaOrdered By: Subhash Duckworth on 02-10-2023 Magnesium [Mass/Vol] 2.0 mg/dL 1.9-2.7 [facility] No Panel InformationOrdered By: Mina Reilly on 02-10-2023 Estimated GFR (CKD-EPI) 48.242 mL/Min [facility] Creatinine Clearance (Chem 58.79 [facility] Phosphate [Mass/volume] in S [place] or PlasmaOrdered By: Mina Reilly on 02-10-2023 Phosphate [Mass/Vol] 2.5 mg/dL 2.5-4.5 [facility] Potassium [Moles/volume] in Serum or PlasmaOrdered By: Mina Reilly on 02-10-2023 Potassium [Moles/Vol] 3.1 mmol/L 3.5-5.1 [facility] Renal Function Panelon 02-10 Albumin [Mass/Vol] 3.8 g/dL Normal 3.5-5.[address] [facility] Comment on above: Performed By: #### Mary VEGA MG ####[address] [place] [address] [facility] Anion gap [Moles/Vol] 12.2 mmol/L Normal 6.0-15.0 [facility] Comment on above: Performed By: #### Mary VEGA MG ####[address] [place] [address] [facility] Calcium [Mass/Vol] 10.8 mg/dL High 8.6-10.[address] [facility] Comment on above: Performed By: #### Mary VEGA MG ####[facility] [place] [address] [facility] Chloride [Moles/Vol] 99 mmol/L Normal 98-107 [facility] Comment on above: Performed By: #### R GARY MG ####[address] [place] [address] [facility] CO2 [Moles/Vol] 29.9 mmol/L Normal 21.0-31.0 [facility] Comment on above: Performed By: #### R ENAL, MG ####[address] [place] [address] [facility] Creatinine [Mass/Vol] 1.58 mg/dL High 0.70-1.30 [facility] Comment on above: Performed By: #### R ENAL, MG ####[address] [address] [facility] Creatinine Clr Calc Pharmacy 58.79 [facility] Comment on above: Result Comment: PERF ORMED BY:[address] [place], [place] [phone] MEDICAL DIRECTORAPRIL VEGA M.D. Performed By: #### R ENJOYCE, MG ####[place] [id number] [facility] GFR/1.73 sq M.predicted MDRD (S/P/Bld) [Vol rate/Area] 48.242 mL/min/{1.73_m2} [facility] Comment on above: Performed By: #### R ENAL, MG ####[address] [address] [facility] Glucose [Mass/Vol] 114 mg/dL High 70-[address] [facility] Comment on above: Result Comment: [place] Glucose Reference Range is dependent on time and content of last meal. Glucose of more than 200 mg/dL in a nonstressed, ambulatory subject supports the diagnosis of Diabetes Mellitus. ADA recommended reference range Performed By: #### R ENAL, MG ####[address] [address] [facility] Phosphate [Mass/Vol] 2.5 mg/dL Normal 2.5-4.5 [facility] Comment on above: Performed By: #### R ENAL, MG ####[address] [address] [facility] Potassium [Moles/Vol] 3.1 mmol/L Low 3.5-5.1 [facility] Comment on above: Performed By: #### R GARY MG ####[facility] [place] [id number] [facility] Sodium [Moles/Vol] 138 mmol/L Normal 136-[address] [facility] Comment on above: Performed By: #### R GARY MG ####[facility] [address] [place] [id number] [facility] Urea nitrogen [Mass/Vol] 37 mg/dL High 10-09 [facility] Comment on above: Performed By: #### R MG GARY ####[address] [place] [address] Serum or plasma anion gap de terminationOrdered By: Mina Reilly on 02-10-2023 Anion gap [Moles/Vol] 12.2 mmol/L 6.0-15.0 [facility] Sodium [Moles/volume] in Ser um or PlasmaOrdered By: Mina Reilly on 02-10-2023 Sodium [Moles/Vol] 138 mmol/L 136-[address] [facility] Urea nitrogen [Mass/volume] in Serum or PlasmaOrdered By: Mina Reilly on 02-10-2023 Urea nitrogen [Mass/Vol] 37 mg/dL 10-09 [facility] Basic Metabolic Panelon 01-17 Anion gap [Moles/Vol] 13.5 mmol/L Normal 6.0-15.0 [facility] Comment on above: Performed By: #### B MP ####[address] [place] [id number] [facility] Calcium [Mass/Vol] 10.8 mg/dL High 8.6-10.[address] [facility] Comment on above: Performed By: #### B MP ####[address] [place] [id number] [facility] Chloride [Moles/Vol] 96 mmol/L Low 98-107 [facility] Comment on above: Performed By: #### B MP ####[facility] [place] [address] [facility] CO2 [Moles/Vol] 30.3 mmol/L Normal 21.0-31.0 [facility] Comment on above: Performed By: #### B MP ####[address] [place] [address] [facility] Creatinine [Mass/Vol] 1.70 mg/dL High 0.70-1.30 [facility] Comment on above: Performed By: #### B MP ####[address] [place] [address] [facility] Creatinine Clr Calc Pharmacy 55.13 Normal [facility] Comment on above: Result Comment: PERF ORMED BY:[address] [place], [place] [phone] MEDICAL DIRECTORAPRIL VEGA M.D. Performed By: #### B MP ####[address] [address] [facility] GFR/1.73 sq M.predicted MDRD (S/P/Bld) [Vol rate/Area] 44.185 mL/min/{1.73_m2} Normal [facility] Comment on above: Performed By: #### B MP ####[address] [address] [facility] Glucose [Mass/Vol] 198 mg/dL High 70-[address] [facility] Comment on above: Result Comment: [place] Glucose Reference Range is dependent on time and content of last meal. Glucose of more than 200 mg/dL in a nonstressed, ambulatory subject supports the diagnosis of Diabetes Mellitus. ADA recommended reference range Performed By: #### B MP ####[address] [address] [facility] Potassium [Moles/Vol] 2.8 mmol/L Off scale low 3.5-5.1 [facility] Comment on above: Result Comment: Crit ical Result Called to and read back by: EMILY RODRIGUEZ at: 02/09/2023 15:32:22 by:OSMAN Performed By: #### B MP ####[facility] [place] [address] [facility] Sodium [Moles/Vol] 137 mmol/L Normal 136-[address] [facility] Comment on above: Performed By: #### B MP ####[facility] [place] [address] [facility] Urea nitrogen [Mass/Vol] 35 mg/dL High 7-25 [facility] Comment on above: Performed By: #### B MP ####[address] [place] [address] [facility] Anion gap [Moles/Vol] 11.5 mmol/L Normal 6.0-15.0 [facility] Comment on above: Performed By: #### B MP ####[address] [place] [address] [facility] Calcium [Mass/Vol] 10.6 mg/dL High 8.6-10.[address] [facility] Comment on above: Performed By: #### B MP ####[address] [place] [address] [facility] Chloride [Moles/Vol] 95 mmol/L Low 98-107 [facility] Comment on above: Performed By: #### B MP ####[address] [place] [address] [facility] CO2 [Moles/Vol] 33.0 mmol/L High 21.0-31.0 [facility] Comment on above: Performed By: #### B MP ####[address] [place] [address] [facility] Creatinine [Mass/Vol] 1.53 mg/dL High 0.70-1.30 [facility] Comment on above: Performed By: #### B MP ####[address] [place] [address] [facility] Creatinine Clr Calc Pharmacy 61.18 Normal [facility] Comment on above: Result Comment: PERF ORMED BY:[address] [place], [place] [phone] MEDICAL DIRECTORAPRIL VEGA M.D. Performed By: #### B MP ####[address] [place] [address] [place] GFR/1.73 sq M.predicted MDRD (S/P/Bld) [Vol rate/Area] 50.140 mL/min/{1.73_m2} Normal [facility] Comment on above: Performed By: #### B MP ####[address] [address] [facility] Glucose [Mass/Vol] 112 mg/dL High 70-[address] [facility] Comment on above: Result Comment: [place] Glucose Reference Range is dependent on time and content of last meal. Glucose of more than 200 mg/dL in a nonstressed, ambulatory subject supports the diagnosis of Diabetes Mellitus. ADA recommended reference range Performed By: #### B MP ####[address] [address] [facility] Potassium [Moles/Vol] 2.5 mmol/L Off scale low 3.5-5.1 [facility] Comment on above: Result Comment: Crit ical Result Called to and read back by: AUDREY MATHEW at: 02/09/2023 06:34:01 by:GILBERTO Performed By: #### B MP ####[address] [address] [facility] Sodium [Moles/Vol] 137 mmol/L Normal 136-[address] [facility] Comment on above: Performed By: #### B MP ####[address] [address] [facility] Urea nitrogen [Mass/Vol] 36 mg/dL High 7- [facility] Comment on above: Performed By: #### B MP ####[address] [address] [facility] Potassiumon 02-09-2023 Potassium [Moles/Vol] 3.3 mmol/L Low 3.5-5.1 [facility] Comment on above: Result Comment: PERF ORMED BY:[address] [place], [place] [phone] MEDICAL DIRECTORAPRIL VEGA M.D. Performed By: #### K ####[address] [address] [facility] Basic Metabolic Panelon 01-17 Anion gap [Moles/Vol] 11.8 mmol/L Normal 6.0-15.0 [facility] Comment on above: Performed By: #### B JOE [id number], PHOS ####[address] [address] [facility] Calcium [Mass/Vol] 10.5 mg/dL High 8.6-10.[address] [facility] Comment on above: Performed By: #### B JOE [id number] PHOS ####[address] [address] [facility] Chloride [Moles/Vol] 98 mmol/L Normal 98-107 [facility] Comment on above: Performed By: #### B JOE [id number], PHOS ####[address] [address] [facility] CO2 [Moles/Vol] 30.9 mmol/L Normal 21.0-31.0 [facility] Comment on above: Performed By: #### B JOE [id number], PHOS ####[address] [address] [facility] Creatinine [Mass/Vol] 1.66 mg/dL High 0.70-1.30 [facility] Comment on above: Performed By: #### B JOE [id number], PHOS ####[address] [address] [place] Creatinine Clr Calc Pharmacy 57.77 [facility] Comment on above: Performed By: #### B JOE [id number], PHOS ####[address] [address] [place] GFR/1.73 sq M.predicted MDRD (S/P/Bld) [Vol rate/Area] 45.465 mL/min/{1.73_m2} [facility] Comment on above: Performed By: #### B JOE [id number], PHOS ####[facility] [place] [address] [facility] Glucose [Mass/Vol] 80 mg/dL Normal 70-[address] [facility] Comment on above: Result Comment: [place] Glucose Reference Range is dependent on time and content of last meal. Glucose of more than 200 mg/dL in a nonstressed, ambulatory subject supports the diagnosis of Diabetes Mellitus. ADA recommended reference range Performed By: #### B JOE [id number], PHOS ####[facility] [address] [place] [address] [facility] Potassium [Moles/Vol] 2.7 mmol/L Off scale low 3.5-5.1 [facility] Comment on above: Result Comment: Ana Paulat ical Result Called to and read back by: HELIO HU at: 02/08/2023 05:49:44 by:[id number] Performed By: #### B JOE [id number], PHOS ####[address] [place] [address] [facility] Sodium [Moles/Vol] 138 mmol/L Normal 136-[address] [facility] Comment on above: Performed By: #### B JOE [id number], PHOS ####[facility] [place] [address] [facility] Urea nitrogen [Mass/Vol] 37 mg/dL High 7-25 [facility] Comment on above: Performed By: #### B JOE [id number], PHOS ####[facility] [place] [address] [facility] ECG 12 lead ECGon 02-08-2023 ECG 12 lead ECG Normal [facility] ECH echo transthoracicon ECH echo transthoracic Normal [facility] Parathyrin.intact [Mass/volu me] in Serum or PlasmaOrdered By: Mina Reilly on 02-08-2023 Parathyrin.intact [Mass/Vol] 201.3 pg/mL 12-88 [facility] Parathyroid Hormone Intacton 02-08-2023 Parathyroid Hormone Intact 201.3 pg/mL High 12- [facility] Comment on above: Result Comment: PERF ORMED BY:[address] [address] [place] [phone] MEDICAL DIRECTORAPRIL VEGA M.D. Performed By: #### P TH ####[address] [place] [address] [facility] Phosphoruson 02-08-2023 Phosphate [Mass/Vol] 4.2 mg/dL Normal 2.5-4.5 [facility] Comment on above: Performed By: #### B MP, [id number], PHOS ####[address] [address] [facility] US renal BIon 02-08-2023 US renal BI Normal [facility] Vitamin D 25 Hydroxy Totalon 02-08-2023 Vitamin D 25 Hydroxy Total 43.1 ng/mL Normal 30-100 [facility] Comment on above: Result Comment: CATIE MIN D STATUS 25([place])VITAMIN D RANGE (ng/mL) Deficient <20 Insufficient 20 to <30 Sufficient 30 to 100 Reference: Sravan Drake, Ryne JACK, et al. Evaluation,treatment, and prevention of vitamin D deficiency; an Endocrine Society clinical practice guideline. JCEM. 2010; 96(7):1911-30.PERFORMED BY:[address] [address] [address] [place]NM[place]Ritch[place] [phone] MEDICAL DIRECTORAPRIL VEGA M.D. Performed By: #### B MP, [id number], PHOS ####[address] [place] [address] [facility] Vitamin D+Metabolites [Mass/ volume] in Serum or PlasmaOrdered By: Mina Reilly on 02-08-2023 Vitamin D+Metabolites [Mass/Vol] 43.1 ng/mL 30-100 [facility] Comment on above: VITAMIN D STATUS 25( [place])VITAMIN D RANGE (ng/mL) Deficient <20 Insufficient 20 to <30Sufficient 30 to 100Reference: Sravan Drake, Ryne JACK, et al. Evaluation,treatment, and prevention of vitamin D deficiency; an Endocrine Society clinical practice guideline. JCEM. 2010; 96(7):1911-30. Basic Metabolic Panelon 11- Anion gap [Moles/Vol] 12.3 mmol/L Normal 6.0-15.0 [facility] Comment on above: Performed By: #### B MP ####[facility] [place] [address] [facility] Calcium [Mass/Vol] 11.1 mg/dL High 8.6-10.[address] [facility] Comment on above: Performed By: #### B MP ####[address] [place] [address] [facility] Chloride [Moles/Vol] 100 mmol/L Normal 98-107 [facility] Comment on above: Performed By: #### B MP ####[address] [place] [address] [facility] CO2 [Moles/Vol] 29.3 mmol/L Normal 21.0-31.0 [facility] Comment on above: Performed By: #### B MP ####[address] [place] [address] [facility] Creatinine [Mass/Vol] 1.80 mg/dL High 0.70-1.30 [facility] Comment on above: Performed By: #### B MP ####[address] [place] [address] [facility] Creatinine Clr Calc Pharmacy 53.28 [facility] Comment on above: Result Comment: PERF ORMED BY:[address] [address] [place], [place] [phone] MEDICAL DIRECTORAPRIL VEGA M.D. Performed By: #### B MP ####[address] [place] [address] [place] GFR/1.73 sq M.predicted MDRD (S/P/Bld) [Vol rate/Area] 41.256 mL/min/{1.73_m2} [facility] Comment on above: Performed By: #### B MP ####[address] [place] [address] [facility] Glucose [Mass/Vol] 116 mg/dL High 70-[address] [facility] Comment on above: Result Comment: [facility] Glucose Reference Range is dependent on time and content of last meal. Glucose of more than 200 mg/dL in a nonstressed, ambulatory subject supports the diagnosis of Diabetes Mellitus. ADA recommended reference range Performed By: #### B MP ####[address] [place] [id number] [facility] Potassium [Moles/Vol] 3.6 mmol/L Significan t change down 3.5-5.1 [facility] Comment on above: Performed By: #### B MP ####[id number] [facility] Sodium [Moles/Vol] 138 mmol/L Normal 136-[address] [facility] Comment on above: Performed By: #### B MP ####[address] [address] [facility] Urea nitrogen [Mass/Vol] 34 mg/dL High 7-25 [facility] Comment on above: Performed By: #### B MP ####[address] [address] [facility] Anion gap [Moles/Vol] 8.2 mmol/L Normal 6.0-15.0 [facility] Comment on above: Order Comment: Comme nt redraw therapy in rm with pt Performed By: #### B MP ####[address] [address] [facility] Calcium [Mass/Vol] 10.8 mg/dL High 8.6-10.[address] [facility] Comment on above: Order Comment: Comme nt redraw therapy in rm with pt Performed By: #### B MP ####[address] [address] [facility] Chloride [Moles/Vol] 106 mmol/L Normal 98-107 [facility] Comment on above: Order Comment: Comme nt redraw therapy in rm with pt Performed By: #### B MP ####[address] [place] [address] [facility] CO2 [Moles/Vol] 26.1 mmol/L Normal 21.0-31.0 [facility] Comment on above: Order Comment: Comme nt redraw therapy in rm with pt Performed By: #### B MP ####[address] [place] [address] [facility] Creatinine [Mass/Vol] 1.42 mg/dL High 0.70-1.30 [facility] Comment on above: Order Comment: Comme nt redraw therapy in rm with pt Performed By: #### B MP ####[address] [address] [facility] Creatinine Clr Calc Pharmacy 67.53 [facility] Comment on above: Order Comment: Comme nt redraw therapy in rm with pt Result Comment: PERF ORMED BY:[address] [place], [place] [phone] MEDICAL DIRECTORAPRIL VEGA M.D. Performed By: #### B MP ####[address] [address] [facility] GFR/1.73 sq M.predicted MDRD (S/P/Bld) [Vol rate/Area] 54.836 mL/min/{1.73_m2} [facility] Comment on above: Order Comment: Comme nt redraw therapy in rm with pt Performed By: #### B MP ####[address] [address] [facility] Glucose [Mass/Vol] 177 mg/dL High 70-[address] [facility] Comment on above: Order Comment: Comme nt redraw therapy in rm with pt Result Comment: [place] om Glucose Reference Range is dependent on time and content of last meal. Glucose of more than 200 mg/dL in a nonstressed, ambulatory subject supports the diagnosis of Diabetes Mellitus. ADA recommended reference range Performed By: #### B MP ####[address] [address] [place] Potassium [Moles/Vol] 6.3 mmol/L Off scale high 3.5-5.1 [facility] Comment on above: Order Comment: Comme nt redraw therapy in rm with pt Result Comment: Crit ical Result Called to and read back by: EMILY MCDANIELS at: 02/07/2023 11:56:44 by:JODIE Performed By: #### B MP ####[address] [address] [facility] Sodium [Moles/Vol] 134 mmol/L Low 136-[address] [facility] Comment on above: Order Comment: Comme nt redraw therapy in rm with pt Performed By: #### B MP ####[address] [address] [facility] Urea nitrogen [Mass/Vol] 31 mg/dL High 7-25 [facility] Comment on above: Order Comment: Comme nt redraw therapy in rm with pt Performed By: #### B MP ####[address] [address] [facility] Anion gap [Moles/Vol] 8.5 mmol/L Normal 6.0-15.0 [facility] Comment on above: Performed By: #### B MP ####[address] [address] [facility] Calcium [Mass/Vol] 10.9 mg/dL High 8.6-10.[address] [facility] Comment on above: Performed By: #### B MP ####[address] [address] [facility] Chloride [Moles/Vol] 105 mmol/L Normal 98-107 [facility] Comment on above: Performed By: #### B MP ####[address] [address] [facility] CO2 [Moles/Vol] 27.4 mmol/L Normal 21.0-31.0 [facility] Comment on above: Performed By: #### B MP ####[address] [address] [facility] Creatinine [Mass/Vol] 1.40 mg/dL High 0.70-1.30 [facility] Comment on above: Performed By: #### B MP ####[address] [place] [address] [place] Creatinine Clr Calc Pharmacy 68.50 [facility] Comment on above: Result Comment: PERF ORMED BY:[address] [place], [place] [phone] MEDICAL JORGE VEGA M.D. Performed By: #### B MP ####[address] [address] [place] GFR/1.73 sq M.predicted MDRD (S/P/Bld) [Vol rate/Area] 55.778 mL/min/{1.73_m2} [facility] Comment on above: Performed By: #### B MP ####[address] [address] [facility] Glucose [Mass/Vol] 164 mg/dL High 70-[address] [facility] Comment on above: Result Comment: [place] Glucose Reference Range is dependent on time and content of last meal. Glucose of more than 200 mg/dL in a nonstressed, ambulatory subject supports the diagnosis of Diabetes Mellitus. ADA recommended reference range Performed By: #### B MP ####[address] [address] [facility] Potassium [Moles/Vol] 5.9 mmol/L High 3.5-5.1 [facility] Comment on above: Performed By: #### B MP ####[address] [address] [place] Sodium [Moles/Vol] 135 mmol/L Low 136-[address] [facility] Comment on above: Performed By: #### B MP ####[address] [address] [facility] Urea nitrogen [Mass/Vol] 29 mg/dL High 7-25 [facility] Comment on above: Performed By: #### B MP ####[address] [address] [facility] Creatinine [Mass/volume] in UrineOrdered By: Mina Reilly on 02-07-2023 Creatinine (U) [Mass/Vol] 12.0 mg/dL 14.0-26.0 [facility] Creatinine, Urine (Random)on 02-07-2023 Creatinine, Urine (Random) 12.0 mg/dL Low 14.0-26.0 [facility] Comment on above: Performed By: #### U NA, UK, UCREA ####[facility] [place] [address] [facility] Glucose Glucometer (BldC) [M ass/Vol]Ordered By: Barry Cisneros on 02-07-2023 Glucose [Mass/Vol] 117 mg/dL [facility] Comment on above: Random Glucose Refer ence Range is dependent on time and content of last meal. Glucose of more than 200 mg/dL in a nonstressed, ambulatory subject supports the diagnosis of Diabetes Mellitus. Glucose Poct Glucometerson 1 04-09-2022 Glucose [Mass/Vol] 117 mg/dL Normal [facility] Comment on above: Result Comment: [place] om Glucose Reference Range is dependent on time and content of last meal. Glucose of more than 200 mg/dL in a nonstressed, ambulatory subject supports the diagnosis of Diabetes Mellitus.PERFORMED BY:[address] [place], [place] [phone] MEDICAL DIRECTORAPRIL VEGA M.D. Performed By: #### G LULS ####Point of Care testing, Glucose [Mass/Vol] 63 mg/dL Normal [facility] Comment on above: Result Comment: [place] om Glucose Reference Range is dependent on time and content of last meal. Glucose of more than 200 mg/dL in a nonstressed, ambulatory subject supports the diagnosis of Diabetes Mellitus.PERFORMED BY:[address] [place], [place] [phone] MEDICAL JORGE VEGA M.D. Performed By: #### G LULS ####Point of Care testing, Potassium [Moles/volume] in UrineOrdered By: Mina Reilly on 02-07-2023 Potassium (U) [Moles/Vol] 70.6 mmol/L [facility] Comment on above: No reference range e stablished Potassium, Urine (Random)on 02-07-2023 Potassium, Urine (Random) 70.6 mmol/L Normal [facility] Comment on above: Result Comment: No r eference range establishedPERFORMED BY:[address] [place], [place] [phone] MEDICAL DIRECTORAPRIL VEGA M.D. Performed By: #### U NA, , REA ####[address] [place] [address] [facility] Sodium [Moles/volume] in Uri neOrdered By: Mina Reilly on 02-07-2023 Sodium (U) [Moles/Vol] 63 mmol/L [facility] Comment on above: No reference range e stablished Sodium, Urine (Random)on Sodium (U) [Moles/Vol] 63 mmol/L Normal [facility] Comment on above: Result Comment: No r eference range established Performed By: #### U NA, , RE ####[address] [id number] [facility] Activated partial thrombopla stin time (aPTT) in platelet poor plasma by coagulation aOrdered By: Bobby Bernabe on 02-06-2023 aPTT Coag (PPP) [Time] 31.1 s 25.1-36.5 [facility] Comment on above: A hematocrit value g reater than 55% may lead to inaccurate results in coagulation testing. Patients having hematocrit values >55% require a special collection tube for coagulation studies. Please contact the laboratory at [phone] for redraw instructions. Alanine aminotransferase [En zymatic activity/volume] in Serum or PlasmaOrdered By: Bobby Bernabe on 02-06-2023 ALT [Catalytic activity/Vol] 16 U/L 7-52 [facility] Albumin [Mass/volume] in Ser um or Plasma by Bromocresol green (BCG) dye binding methoOrdered By: Bobby Bernabe on 02-06-2023 Albumin BCG dye [Mass/Vol] 4.1 g/dL 3.5-5.7 [facility] Alkaline phosphatase [Enzyma tic activity/volume] in Serum or PlasmaOrdered By: Bobby Bernabe on 02-06-2023 ALP [Catalytic activity/Vol] 108 U/L 34-104 [facility] Ammoniaon 02-06-2023 Ammonia (P) [Moles/Vol] 20 umol/L Normal [facility] Comment on above: Result Comment: PERF ORMED BY:[address] [place], [place] [phone] MEDICAL DIRECTORAPRIL VEGA M.D. Performed By: #### P TT, TSH3, PT, MG, CK, AMM, BNP, CMP, HS TROP ####[address] [address] [facility] Ammonia [Moles/volume] in Pl asmaOrdered By: Bobby Bernabe on 02-06-2023 Ammonia (P) [Moles/Vol] 20 umol/L [facility] Aspartate aminotransferase [ Enzymatic activity/volume] in Serum or PlasmaOrdered By: Bobby Bernabe on 02-06-2023 AST [Catalytic activity/Vol] 21 U/L 13-39 [facility] B-Type Natriuretic Peptideon 02-06-2023 Natriuretic peptide B (Bld) [Mass/Vol] 151.0 pg/mL High 5-100 [facility] Comment on above: Result Comment: PERF ORMED BY:[address] [place], [place] [phone] MEDICAL DIRECTORAPRIL VEGA M.D. Performed By: #### P TT, TSH3, PT, MG, CK, AMM, BNP, CMP, HS TROP ####[address] [address] [facility] Basophils Auto (Bld) [#/Vol] Ordered By: Bobby Bernabe on 02-06-2023 Basophils (Bld) [#/Vol] 0.1 10*3/uL 0.0-0.2 [facility] Basophils/100 WBC Auto (Bld) Ordered By: Bobby Bernabe on 02-06-2023 Basophils/100 WBC (Bld) 0.9 % . [facility] Bilirubin Auto test strip Ql (U)Ordered By: Bobby Bernabe on 02-06-2023 Bilirubin Ql (U) Negative Negative [facility] Bilirubin.total [Mass/volume ] in Serum or PlasmaOrdered By: Bobby Bernabe on 02-06-2023 Bilirubin [Mass/Vol] 0.6 mg/dL 0.3-1.0 [facility] COVID CepheidOrdered By: Pao Bernabe on 02-06-2023 SARS-CoV-2 (COVID-19) Ab IA Ql Negative Negative [facility] Comment on above: This is a duplicate Cepheid Xpert Xpress CoV-2/Flu/RSV Plus RNA by RT-PCR result to be used for statistical tracking purpose only. SARS-CoV-2 (COVID-19) RNA EMILY+probe Ql (Unsp spec) [facility] COVID-19 / Flu A/B / RSV PCR on 02-06-2023 SARS-CoV-2 (COVID-19) RNA EMILY+probe Ql (Unsp spec) Normal [facility] Comment on above: Performed By: #### C EPHEID NEG, COVID19 FLU RSV ####[facility] [id number] [place] [address] [facility] Calcium [Mass/volume] in Ser um or PlasmaOrdered By: Bobby Bernabe on 02-06-2023 Calcium [Mass/Vol] 11.3 mg/dL 8.6-10.[address] [facility] Carbon dioxide, total [Moles /volume] in Serum or PlasmaOrdered By: Bobby Bernabe on 02-06-2023 CO2 [Moles/Vol] 28.3 mmol/L 21.0-31.0 [facility] Cepheid COVID PCR Negativeon 02-06-2023 SARS-CoV-2 (COVID-19) RNA EMILY+probe Ql (Unsp spec) Negative Normal Negative [facility] Comment on above: Result Comment: This is a duplicate Cepheid Xpert Xpress CoV-2/Flu/RSV Plus RNA by RT-PCR result to be used for statistical tracking purpose only.PERFORMED BY:[address] [place], [place] [phone] MEDICAL DIRECTORAPRIL VEGA M.D. Performed By: #### C EPHEID NEG, COVID19 FLU RSV ####[place] [id number] [facility] Chloride [Moles/volume] in S elmira or PlasmaOrdered By: Bobby Bernabe on 02-06-2023 Chloride [Moles/Vol] 104 mmol/L 98-107 [facility] Complete Blood Count Auto Di ffon 02-06-2023 Basophils (Bld) [#/Vol] 0.1 10*3/uL Normal 0.0-0.2 [facility] Comment on above: Result Comment: PERF ORMED BY:[address] CHUNGRitchieSOFIEMONTROSE, [place] [phone] MEDICAL DIRECTORAPRIL VEGA M.D. Performed By: #### C BC ####[place] [id number] [facility] Basophils/100 WBC (Bld) 0.9 % Normal . [facility] Comment on above: Performed By: #### C BC ####[address] Eosinophils (Bld) [#/Vol] 0.3 10*3/uL Normal 0.0-0.45 [facility] Comment on above: Performed By: #### C BC ####[place] [id number] [facility] Eosinophils/100 WBC (Bld) 5.4 % Normal . [facility] Comment on above: Performed By: #### C BC ####[place] [id number] [facility] Erythrocyte distribution width (RBC) [Ratio] 16.0 % High 12.0-14.8 [facility] Comment on above: Performed By: #### C BC ####[place] [id number] [facility] Hematocrit (Bld) [Volume fraction] 39.3 % Normal 38.8-50.0 [facility] Comment on above: Performed By: #### C BC ####[address] Hemoglobin (Bld) [Mass/Vol] 13.0 g/dL Normal 13.0-17.0 [facility] Comment on above: Performed By: #### C BC ####[address] Lymphocytes (Bld) [#/Vol] 0.9 10*3/uL Low 1.00-4.8 [facility] Comment on above: Performed By: #### C BC ####[address] Lymphocytes/100 WBC (Bld) 16.3 % Normal . [facility] Comment on above: Performed By: #### C BC ####[address] MCH (RBC) [Entitic mass] 28.0 pg Normal 27.5-35.2 [facility] Comment on above: Performed By: #### C BC ####[address] MCV (RBC) [Entitic vol] 85.0 fL Normal 83.5-101 [facility] Comment on above: Performed By: #### C BC ####[address] Mean Corpuscular HGB Conc 33.0 g/dL Normal 32.5-35.6 [facility] Comment on above: Performed By: #### C BC ####[address] Monocytes (Bld) [#/Vol] 0.6 10*3/uL Normal 0.0-0.8 [facility] Comment on above: Performed By: #### C BC ####[address] Monocytes/100 WBC (Bld) 15.78 % Normal 0.00-20.00 [facility] Comment on above: Performed By: #### C BC ####[place] [id number] [facility] Monocytes/100 WBC (Bld) 10.8 % Normal . [facility] Comment on above: Performed By: #### C BC ####[place] [id number] [facility] Neutrophils (Bld) [#/Vol] 3.7 10*3/uL Normal 1.8-7.7 [facility] Comment on above: Performed By: #### C BC ####[place] [id number] [facility] Neutrophils/100 WBC (Bld) 66.6 % Normal . [facility] Comment on above: Performed By: #### C BC ####[place] [id number] [facility] NRBC% 0.1 /100{WBC} Normal 0-0.5 [facility] Comment on above: Performed By: #### C BC ####[place] [id number] [facility] [facility] Platelet mean volume (Bld) [Entitic vol] 6.9 fL Normal 6.6-10.1 [facility] Comment on above: Performed By: #### C BC ####[place] [id number] [facility] Platelets (Bld) [#/Vol] 228 10*3/uL Normal 150-450 [facility] Comment on above: Performed By: #### C BC ####[address] [address] [facility] RBC (Bld) [#/Vol] 4.62 10*6/uL Normal 3.90-5.60 [facility] Comment on above: Performed By: #### C BC ####[place] [id number] [facility] WBC (Bld) [#/Vol] 5.6 10*3/uL Normal 4.1-10.[address] [facility] Comment on above: Performed By: #### C BC ####[address] Comprehensive Metabolic Pane anny 02-06-2023 Albumin [Mass/Vol] 4.1 g/dL Normal 3.5-5.[address] [facility] Comment on above: Performed By: #### P TT, TSH3, PT, MG, CK, AMM, BNP, CMP, HS TROP ####[address] Albumin/Globulin [Mass ratio] 1.2 {ratio} Normal [facility] Comment on above: Performed By: #### P TT, TSH3, PT, MG, CK, AMM, BNP, CMP, HS TROP ####[address] ALP [Catalytic activity/Vol] 108 U/L High 34-104 [facility] Comment on above: Performed By: #### P TT, TSH3, PT, MG, CK, AMM, BNP, CMP, HS TROP ####[address] ALT [Catalytic activity/Vol] 16 U/L Normal 7-52 [facility] Comment on above: Performed By: #### P TT, TSH3, PT, MG, CK, AMM, BNP, CMP, HS TROP ####[address] Anion gap [Moles/Vol] 9.3 mmol/L Normal 6.0-15.0 [facility] Comment on above: Performed By: #### P TT, TSH3, PT, MG, CK, AMM, BNP, CMP, HS TROP ####[address] AST [Catalytic activity/Vol] 21 U/L Normal 13-39 [facility] Comment on above: Performed By: #### P TT, TSH3, PT, MG, CK, AMM, BNP, CMP, HS TROP ####[place] [id number] [facility] Bilirubin [Mass/Vol] 0.6 mg/dL Normal 0.3-1.0 [facility] Comment on above: Performed By: #### P TT, TSH3, PT, MG, CK, AMM, BNP, CMP, HS TROP ####[place] [id number] [facility] Calcium [Mass/Vol] 11.3 mg/dL High 8.6-10.[address] [facility] Comment on above: Performed By: #### P TT, TSH3, PT, MG, CK, AMM, BNP, CMP, HS TROP ####[place] [id number] [facility] Chloride [Moles/Vol] 104 mmol/L Normal 98-107 [facility] Comment on above: Performed By: #### P TT, TSH3, PT, MG, CK, AMM, BNP, CMP, HS TROP ####[place] [id number] [facility] CO2 [Moles/Vol] 28.3 mmol/L Normal 21.0-31.0 [facility] Comment on above: Performed By: #### P TT, TSH3, PT, MG, CK, AMM, BNP, CMP, HS TROP ####[place] [id number] [facility] Creatinine [Mass/Vol] 1.31 mg/dL High 0.70-1.30 [facility] Comment on above: Performed By: #### P TT, TSH3, PT, MG, CK, AMM, BNP, CMP, HS TROP ####[place] [id number] [facility] Creatinine Clr Calc Pharmacy 73.09 Normal [facility] Comment on above: Performed By: #### P TT, TSH3, PT, MG, CK, AMM, BNP, CMP, HS TROP ####[place] [id number] [facility] GFR/1.73 sq M.predicted MDRD (S/P/Bld) [Vol rate/Area] mL/min/{1.73_m2} [facility] Comment on above: Performed By: #### P TT, TSH3, PT, MG, CK, AMM, BNP, CMP, HS TROP ####[address] Globulin (S) [Mass/Vol] 3.4 g/dL [facility] Comment on above: Performed By: #### P TT, TSH3, PT, MG, CK, AMM, BNP, CMP, HS TROP ####[address] Glucose [Mass/Vol] 164 mg/dL High 70-[address] [facility] Comment on above: Result Comment: [facility] Glucose Reference Range is dependent on time and content of last meal. Glucose of more than 200 mg/dL in a nonstressed, ambulatory subject supports the diagnosis of Diabetes Mellitus. ADA recommended reference range Performed By: #### P TT, TSH3, PT, MG, CK, AMM, BNP, CMP, HS TROP ####[address] Potassium [Moles/Vol] 4.6 mmol/L Normal 3.5-5.1 [facility] Comment on above: Performed By: #### P TT, TSH3, PT, MG, CK, AMM, BNP, CMP, HS TROP ####[address] Protein [Mass/Vol] 7.5 g/dL Normal 6.4-8.[address] [facility] Comment on above: Performed By: #### P TT, TSH3, PT, MG, CK, AMM, BNP, CMP, HS TROP ####[place] [id number] [facility] Sodium [Moles/Vol] 137 mmol/L Normal 136-[address] [facility] Comment on above: Performed By: #### P TT, TSH3, PT, MG, CK, AMM, BNP, CMP, HS TROP ####[address] [address] [facility] Urea nitrogen [Mass/Vol] 29 mg/dL High 7-25 [facility] Comment on above: Performed By: #### P TT, TSH3, PT, MG, CK, AMM, BNP, CMP, HS TROP ####[facility] [id number] [place] [address] [place] Creatine Kinaseon 02-06-2023 CK [Catalytic activity/Vol] 107 U/L Normal [facility] Comment on above: Performed By: #### P TT, TSH3, PT, MG, CK, AMM, BNP, CMP, HS TROP ####[facility] [id number] [place] [address] [facility] Creatine kinase [Enzymatic a ctivity/volume] in Serum or PlasmaOrdered By: Bobby Bernabe on 02-06-2023 CK [Catalytic activity/Vol] 107 U/L [facility] Creatinine [Mass/volume] in Serum or PlasmaOrdered By: Bobby Bernabe on 02-06-2023 Creatinine [Mass/Vol] 1.31 mg/dL 0.70-1.30 [facility] ECG 12 lead ECGon 02-06-2023 ECG 12 lead ECG Normal [facility] ECG 12 lead ECG Normal [facility] ECG 12 lead ECG Normal [facility] Eosinophils Auto (Bld) [#/Vo l]Ordered By: Bobby Bernabe on 02-06-2023 Eosinophils (Bld) [#/Vol] 0.3 10*3/uL 0.0-0.45 [facility] Eosinophils/100 WBC Auto (Bl d)Ordered By: Bobby Bernabe on 02-06-2023 Eosinophils/100 WBC (Bld) 5.4 % . [facility] Erythrocyte distribution wid th Auto (RBC) [Ratio]Ordered By: Bobby Bernabe on 02-06-2023 Erythrocyte distribution width (RBC) [Ratio] 16.0 % 12.0-14.8 [facility] Globulin Calc (S) [Mass/Vol] Ordered By: Bobby Bernabe on 02-06-2023 Globulin (S) [Mass/Vol] 3.4 g/dL [facility] Glucose Glucometer (BldC) [M ass/Vol]Ordered By: Bobby Bernabe on 02-06-2023 Glucose [Mass/Vol] 144 mg/dL [facility] Comment on above: Random Glucose Refer ence Range is dependent on time and content of last meal. Glucose of more than 200 mg/dL in a nonstressed, ambulatory subject supports the diagnosis of Diabetes Mellitus. Glucose Poct Glucometerson 1 04-08-2022 Glucose [Mass/Vol] 144 mg/dL Normal [facility] Comment on above: Result Comment: [place] [facility] Glucose Reference Range is dependent on time and content of last meal. Glucose of more than 200 mg/dL in a nonstressed, ambulatory subject supports the diagnosis of Diabetes Mellitus.PERFORMED BY:[place] [address] [place], [place] [phone] MEDICAL DIRECTORAPRIL VEGA M.D. Performed By: #### G OZZY ####Point of Care testing, Glucose [Mass/volume] in Ser um or PlasmaOrdered By: Bobby Bernabe on 02-06-2023 Glucose [Mass/Vol] 164 mg/dL 70-[address] [facility] Comment on above: ADA recommended refe rence rangeRandom Glucose Reference Range is dependent on time and content of last meal. Glucose of more than 200 mg/dL in a nonstressed, ambulatory subject supports the diagnosis of Diabetes Mellitus. Hematocrit Auto (Bld) [Volum e fraction]Ordered By: Bobby Bernabe on 02-06-2023 Hematocrit (Bld) [Volume fraction] 39.3 % 38.8-50.0 [facility] Hemoglobin [Mass/volume] in BloodOrdered By: Bobby Bernabe on 02-06-2023 Hemoglobin (Bld) [Mass/Vol] 13.0 g/dL 13.0-17.0 [facility] INR in Platelet poor plasma by Coagulation assayOrdered By: Bobby Bernabe on 02-06-2023 INR Coag (PPP) [Relative time] 1.0 {INR} [facility] Comment on above: INR Therapeutic Rang [...] on 02-06-2023 Ketones (U) [Mass/Vol] Negative Negative [facility] Laboratory - Chemistry and C hemistry - challengeOrdered By: Bobby Bernabe on 02-06-2023 CO2 [Moles/Vol] 25.5 mmol/L 24.0-29.0 [facility] HCO3 (Bld) [Moles/Vol] 24.0 mmol/L 23.0-29.0 [facility] Leukocytes [#/volume] correc martin for nucleated erythrocytes in Blood by Automated counOrdered By: Bobby Bernabe on 02-06-2023 WBC corrected for nucl RBC Auto (Bld) [#/Vol] 5.6 10*3/uL 4.1-10.5 [facility] Lymphocytes Auto (Bld) [#/Vo l]Ordered By: Bobby Bernabe on 02-06-2023 Lymphocytes (Bld) [#/Vol] 0.9 10*3/uL 1.00-4.8 [facility] Lymphocytes/100 WBC Auto (Bl d)Ordered By: Bobby Bernabe on 02-06-2023 Lymphocytes/100 WBC (Bld) 16.3 % . [facility] MCH Auto (RBC) [Entitic mass ]Ordered By: Bobby Bernabe on 02-06-2023 MCH (RBC) [Entitic mass] 28.0 pg 27.5-35.2 [facility] MCHC Auto (RBC) [Mass/Vol]Or dered By: Bobby Bernabe on 02-06-2023 MCHC (RBC) [Mass/Vol] 33.0 g/dL 32.5-35.6 [facility] MCV Auto (RBC) [Entitic vol] Ordered By: Bobby Bernabe on 02-06-2023 MCV (RBC) [Entitic vol] 85.0 fL 83.5-101 [facility] Magnesiumon 02-06-2023 Magnesium [Mass/Vol] 1.6 mg/dL Low 1.9-2.7 [facility] Comment on above: Performed By: #### P TT, TSH3, PT, MG, CK, AMM, BNP, CMP, HS TROP ####[facility] [id number] [place] [address] [facility] Magnesium [Mass/volume] in S [place] or PlasmaOrdered By: Bobby Bernabe on 02-06-2023 Magnesium [Mass/Vol] 1.6 mg/dL 1.9-2.7 [facility] Monocyte distribution width [Entitic volume] in Blood by AutomatedOrdered By: Bobby Bernabe on 02-06-2023 Monocyte distribution width Auto (Bld) [Entitic vol] 15.78 % 0.00-20.00 [facility] Monocytes Auto (Bld) [#/Vol] Ordered By: Bobby Bernabe on 02-06-2023 Monocytes (Bld) [#/Vol] 0.6 10*3/uL 0.0-0.8 [facility] Monocytes/100 WBC Auto (Bld) Ordered By: Bobby Bernabe on 02-06-2023 Monocytes/100 WBC (Bld) 10.8 % . [facility] Natriuretic peptide B [Mass/ Vol]Ordered By: Bobby Bernabe on 02-06-2023 Natriuretic peptide B (Bld) [Mass/Vol] 151.0 pg/mL 5-100 [facility] Neutrophils Auto (Bld) [#/Vo l]Ordered By: Bobby Bernabe on 02-06-2023 Neutrophils (Bld) [#/Vol] 3.7 10*3/uL 1.8-7.7 [facility] Neutrophils/100 WBC Auto (Bl d)Ordered By: Bobby Bernabe on 02-06-2023 Neutrophils/100 WBC (Bld) 66.6 % . [facility] No Panel InformationOrdered By: Bobby Bernabe on 02-06-2023 Blood Gas Critical Value See comment [facility] Comment on above: Critical Value de guzman d on: 02/06/2023 at 13:24 Blood Gas Sample Site Venous Fir [facility] FiO2 Na % [facility] Venous Blood Base Excess -2.8 mmol/L -3.0-3.0 [facility] Venous Blood Oxygen Content 4.4 mmol/L 6.6-9.7 [facility] Venous Blood Oxygen Saturation 51.4 % 73.0-76.0 [facility] Venous Blood Partial Pressure CO2 49.0 mm[Hg] 38.0-50.0 [facility] Venous Blood Partial Pressure O2 28.8 mm[Hg] 35.0-45.0 [facility] Venous Blood pH 7.31 7.32-7.43 [facility] Estimated GFR (CKD-EPI) > 60.0 mL/Min [facility] Creatinine Clearance (Chem 73.09 [facility] Nucleated erythrocytes [Pres ence] in Blood by Automated countOrdered By: Bobby Bernabe on 02-06-2023 Nucleated RBC Auto Ql (Bld) 0.1 /100{WBC} 0-0.5 [facility] Partial Thromboplastin Timeo n 02-06-2023 aPTT Coag (Bld) [Time] 31.1 s Normal 25.1-36.5 [facility] Comment on above: Result Comment: A he matocrit value greater than 55% may lead to inaccurate results in coagulation testing. Patients having hematocrit values >55% require a special collection tube for coagulation studies. Please contact the laboratory at [phone] for redraw instructions.PERFORMED BY:[place] [address] [place], [place] [phone] MEDICAL DIRECTORAPRIL VEGA M.D. Performed By: #### P TT, TSH3, PT, MG, CK, AMM, BNP, CMP, HS TROP ####[facility] [id number] [place] [address] [facility] Platelet mean volume Auto (B ld) [Entitic vol]Ordered By: Bobby Bernabe on 02-06-2023 Platelet mean volume (Bld) [Entitic vol] 6.9 fL 6.6-10.1 [facility] Platelets Auto (Bld) [#/Vol] Ordered By: Bobby Bernabe on 02-06-2023 Platelets (Bld) [#/Vol] 228 10*3/uL 150-450 [facility] Potassium [Moles/volume] in Serum or PlasmaOrdered By: Bobby Bernabe on 02-06-2023 Potassium [Moles/Vol] 4.6 mmol/L 3.5-5.1 [facility] Protein Auto test strip (U) [Mass/Vol]Ordered By: Bobby Bernabe on 02-06-2023 Protein (U) [Mass/Vol] Negative Negative [facility] Protein [Mass/volume] in Ser um or PlasmaOrdered By: Bobby eBrnabe on 02-06-2023 Protein [Mass/Vol] 7.5 g/dL 6.4-8.[address] [facility] Prothrombin Time INRon 02-06 INR Coag (PPP) [Relative time] 1.0 {INR} Normal [facility] Comment on above: Result Comment: INR [...] MG, CK, AMM, BNP, CMP, HS TROP ####[facility] [id number] [place] [address] [facility] PT Coag (PPP) [Time] 11.5 s Normal 9.0-12.9 [facility] Comment on above: Result Comment: A he matocrit value greater than 55% may lead to inaccurate results in coagulation testing. Patients having hematocrit values >55% require a special collection tube for coagulation studies. Please contact the laboratory at [phone] for redraw instructions. Performed By: #### P TT, TSH3, PT, MG, CK, AMM, BNP, CMP, HS TROP ####[facility] [id number] [place] [address] [facility] Prothrombin time (PT)Ordered By: Bobby Bernabe on 02-06-2023 PT Coag (PPP) [Time] 11.5 s 9.0-12.9 [facility] Comment on above: A hematocrit value g reater than 55% may lead to inaccurate results in coagulation testing. Patients having hematocrit values >55% require a special collection tube for coagulation studies. Please contact the laboratory at [phone] for redraw instructions. RBC Auto (Bld) [#/Vol]Ordere d By: Bobby Srinivasa on 02-06-2023 RBC (Bld) [#/Vol] 4.62 10*6/uL 3.90-5.60 [facility] Serum or plasma albumin/glob ulin mass ratioOrdered By: Bobby Bernabe on 02-06-2023 Albumin/Globulin [Mass ratio] 1.2 {ratio} [facility] Serum or plasma anion gap de terminationOrdered By: Bobby Bernabe on 02-06-2023 Anion gap [Moles/Vol] 9.3 mmol/L 6.0-15.0 [facility] Sodium [Moles/volume] in Ser um or PlasmaOrdered By: Bobby Bernabe on 02-06-2023 Sodium [Moles/Vol] 137 mmol/L 136-[address] [facility] Thyroid Stimulating Hormoneo n 02-06-2023 TSH Qn 4.68 m[IU]/L Normal 0.45-5.33 [facility] Comment on above: Result Comment: PERF ORMED BY:[address] [place], [place] [phone] MEDICAL JORGE VEGA M.D. Performed By: #### P TT, TSH3, PT, MG, CK, AMM, BNP, CMP, HS TROP ####[facility] [id number] [place] [address] [facility] Thyrotropin [Units/volume] i n Serum or PlasmaOrdered By: Bobby Bernabe on 02-06-2023 TSH Qn 4.68 m[IU]/L 0.45-5.33 [facility] Troponin I High Sensitivityo n 02-06-2023 Troponin I High Sensitivity 12.8 pg/mL Normal 0.0-20.0 [facility] Comment on above: Result Comment: PERF ORMED BY:[address] [place], [place] [phone] MEDICAL JORGE VEGA M.D. Performed By: #### P TT, TSH3, PT, MG, CK, AMM, BNP, CMP, HS TROP ####[place] [id number] [facility] Troponin I.cardiac [Mass/vol ume] in Serum or Plasma by Detection limit <= 0.01 ng/Ordered By: Bobby Bernabe on 02-06-2023 Troponin I.cardiac DL <= 0.01 ng/mL [Mass/Vol] 12.8 pg/mL 0.0-20.0 [facility] Urea nitrogen [Mass/volume] in Serum or PlasmaOrdered By: Bobby Bernabe on 02-06-2023 Urea nitrogen [Mass/Vol] 29 mg/dL 10-09 [facility] Urinalysison 02-06-2023 Appearance (U) Clear Normal Clear [facility] Comment on above: Order Comment: Name Collection Type:: Clean-Voided Midstream Performed By: #### U A ####[place] [id number] [facility] Bilirubin,Urine Negative Normal Negative [facility] Comment on above: Order Comment: Name Collection Type:: Clean-Voided Midstream Performed By: #### U A ####[place] [id number] [facility] Color (U) Colorless Normal Yellow [facility] Comment on above: Order Comment: Name Collection Type:: Clean-Voided Midstream Performed By: #### U A ####[place] [id number] [facility] Glucose Ql (U) Normal Normal Normal [facility] Comment on above: Order Comment: Name Collection Type:: Clean-Voided Midstream Performed By: #### U A ####[address] [address] [facility] Ketones Ql (U) Negative Normal Negative [facility] Comment on above: Order Comment: Name Collection Type:: Clean-Voided Midstream Performed By: #### U A ####[place] [id number] [facility] Leukocyte esterase Test strip Ql (U) Negative Normal Negative [facility] Comment on above: Order Comment: Name Collection Type:: Clean-Voided Midstream Performed By: #### U A ####[address] [place] [address] [place] Nitrite,Urine Negative Normal Negative [facility] Comment on above: Order Comment: Name Collection Type:: Clean-Voided Midstream Performed By: #### U A ####[address] [address] [facility] Occult Blood,Urine Negative Normal Negative [facility] Comment on above: Order Comment: Name Collection Type:: Clean-Voided Midstream Result Comment: PERF ORMED BY:[address] [place], [place] [phone] MEDICAL JORGE VEGA M.D. Performed By: #### U A ####[address] [address] [facility] pH (U) 5.5 [pH] Normal 5.0-9.0 [facility] Comment on above: Order Comment: Name Collection Type:: Clean-Voided Midstream Performed By: #### U A ####[address] [address] [facility] Protein,Urine Negative Normal Negative [facility] Comment on above: Order Comment: Name Collection Type:: Clean-Voided Midstream Performed By: #### U A ####[address] [address] [facility] Specificy [place],Urine 1.010 Normal 1.001-1.03 0 [facility] Comment on above: Order Comment: Name Collection Type:: Clean-Voided Midstream Performed By: #### U A ####[address] [address] [facility] Urobilinogen,Urine Normal Normal Normal [facility] Comment on above: Order Comment: Name Collection Type:: Clean-Voided Midstream Performed By: #### U A ####[address] [address] [facility] Urine appearanceOrdered By: Bobby Bernabe on 02-06-2023 Appearance (U) Clear Clear [facility] Urine colorOrdered By: Suly varela Srinivasa on 02-06-2023 Color (U) Colorless Yellow [facility] Urine glucose measurement by automated test strip (mass/volume)Ordered By: Bobby Bernabe on 02-06-2023 Glucose Auto test strip (U) [Mass/Vol] Normal mg/dL Normal [facility] Urine hemoglobin detection b y automated test stripOrdered By: Bobby Bernabe on 02-06-2023 Hemoglobin Auto test strip Ql (U) Negative Negative [facility] Urine leukocyte esterase det ection by automated test stripOrdered By: oBbby Bernabe on 02-06-2023 Leukocyte esterase Auto test strip Ql (U) Negative Negative [facility] Urine nitrite detection by a utomated test stripOrdered By: Bobby Bernabe on 02-06-2023 Nitrite Auto test strip Ql (U) Negative Negative [facility] Urobilinogen Auto test strip (U) [Mass/Vol]Ordered By: Bobby Bernabe on 02-06-2023 Urobilinogen (U) [Mass/Vol] Normal mg/dL Normal [facility] Venous Blood Gason CO2 [Moles/Vol] 25.5 mmol/L Normal 24.0-29.0 [facility] Comment on above: Performed By: #### V BG ####Point of Care testing, HCO3 (Bld) [Moles/Vol] 24.0 mmol/L Normal 23.0-29.0 [facility] Comment on above: Performed By: #### V BG ####Point of Care testing, Respiratory Critical Normal [facility] Comment on above: Result Comment: Crit ical Value called on: 02/06/2023 at 13:24PERFORMED BY:[place] [address] [place], [place] [phone] MEDICAL DIRECTORAPRIL VEGA M.D. Performed By: #### V BG ####Point of Care testing, VBG Base Excess -2.8 mmol/L Normal -3.0-3.0 [facility] Comment on above: Performed By: #### V BG ####Point of Care testing, VBG Draw Site Venous Normal [facility] Comment on above: Performed By: #### V BG ####Point of Care testing, VBG Frac Inspired O2 Normal [facility] Comment on above: Performed By: #### V BG ####Point of Care testing, VBG O2 Content 4.4 mmol/L Low 6.6-9.7 [facility] Comment on above: Performed By: #### V BG ####Point of Care testing, VBG Oxygen Saturation 51.4 % Off scale low 73.0-76.0 [facility] Comment on above: Performed By: #### V BG ####Point of Care testing, VBG PCO2 49.0 mm[Hg] Normal 38.0-50.0 [facility] Comment on above: Performed By: #### V BG ####Point of Care testing, VBG PH Venous PH 7.31 Low 7.32-7.43 [facility] Comment on above: Performed By: #### V BG ####Point of Care testing, VBG PO2 28.8 mm[Hg] Low 35.0-45.0 [facility] Comment on above: Performed By: #### V BG ####Point of Care testing, WBC Auto (Bld) [#/Vol]Ordere d By: Bobby Bernabe on 02-06-2023 WBC (Bld) [#/Vol] 5.6 10*3/uL 4.1-10.[address] [facility] XR chest 2V*on 02-06-2023 XR chest 2V* Normal [facility] pH Auto test strip (U)Ordere d By: Bobby Bernabe on 02-06-2023 pH (U) 1.010 [pH] 1.001-1.03 0 [facility] pH (U) 5.5 [pH] 5.0-9.0 [facility] NM bone 3 phaseon 01-28-2023 NM bone 3 phase Normal [facility] FL esophaguson 01-14-2023 FL esophagus Normal [facility] Basic Metabolic Panelon Anion gap [Moles/Vol] 12.3 mmol/L Normal 6.0-15.0 [facility] Comment on above: Performed By: #### B MP ####[address] [place] [address] [facility] Calcium [Mass/Vol] 12.0 mg/dL High 8.6-10.[address] [facility] Comment on above: Result Comment: PERF ORMED BY:[address] [place], [place] [phone] MEDICAL DIRECTORAPRIL VEGA M.D. Performed By: #### B MP ####[address] [address] [place] Chloride [Moles/Vol] 99 mmol/L Normal 98-107 [facility] Comment on above: Performed By: #### B MP ####[address] [place] [address] [facility] CO2 [Moles/Vol] 33.7 mmol/L High 21.0-31.0 [facility] Comment on above: Performed By: #### B MP ####[address] [address] [facility] Creatinine [Mass/Vol] 1.32 mg/dL High 0.70-1.30 [facility] Comment on above: Performed By: #### B MP ####[address] [place] [address] [place] GFR/1.73 sq M.predicted MDRD (S/P/Bld) [Vol rate/Area] 59.858 mL/min/{1.73_m2} Normal [facility] Comment on above: Performed By: #### B MP ####[address] [address] [place] Glucose [Mass/Vol] 108 mg/dL High 70-[address] [facility] Comment on above: Result Comment: [place] Glucose Reference Range is dependent on time and content of last meal. Glucose of more than 200 mg/dL in a nonstressed, ambulatory subject supports the diagnosis of Diabetes Mellitus. ADA recommended reference range Performed By: #### B MP ####[facility] [place] [address] [facility] Potassium [Moles/Vol] 4.0 mmol/L Normal 3.5-5.1 [facility] Comment on above: Performed By: #### B MP ####[facility] [place] [address] [facility] Sodium [Moles/Vol] 141 mmol/L Normal 136-[address] [facility] Comment on above: Performed By: #### B MP ####[facility] [place] [address] [facility] Urea nitrogen [Mass/Vol] 32 mg/dL High 7-25 [facility] Comment on above: Performed By: #### B MP ####[facility] [place] [address] [facility] Calcium [Mass/volume] in Ser um or PlasmaOrdered By: Stephanie Burgess on 12-19-2022 Calcium [Mass/Vol] 12.0 mg/dL 8.6-10.[address] [facility] Carbon dioxide, total [Moles /volume] in Serum or PlasmaOrdered By: Stephanie Burgess on 12-19-2022 CO2 [Moles/Vol] 33.7 mmol/L 21.0-31.0 [facility] Chloride [Moles/volume] in S elmira or PlasmaOrdered By: Stephanie Burgess on 12-19-2022 Chloride [Moles/Vol] 99 mmol/L 98-107 [facility] Creatinine [Mass/volume] in Serum or PlasmaOrdered By: Stephanie Burgess on 12-19-2022 Creatinine [Mass/Vol] 1.32 mg/dL 0.70-1.30 [facility] Glucose [Mass/volume] in Ser um or PlasmaOrdered By: Stephanie Burgess on 12-19-2022 Glucose [Mass/Vol] 108 mg/dL 70-[address] [facility] Comment on above: ADA recommended refe rence rangeRandom Glucose Reference Range is dependent on time and content of last meal. Glucose of more than 200 mg/dL in a nonstressed, ambulatory subject supports the diagnosis of Diabetes Mellitus. No Panel InformationOrdered By: Stephanie Burgess on 12-19-2022 Estimated GFR (CKD-EPI) 59.858 mL/Min [facility] Creatinine Clearance (Chem N/A [facility] Potassium [Moles/volume] in Serum or PlasmaOrdered By: Stephanie Burgess on 12-19-2022 Potassium [Moles/Vol] 4.0 mmol/L 3.5-5.1 [facility] Serum or plasma anion gap de terminationOrdered By: Stephanie Burgess on 12-19-2022 Anion gap [Moles/Vol] 12.3 mmol/L 6.0-15.0 [facility] Sodium [Moles/volume] in Ser um or PlasmaOrdered By: Stephanie Burgess on 12-19-2022 Sodium [Moles/Vol] 141 mmol/L 136-[address] [facility] Urea nitrogen [Mass/volume] in Serum or PlasmaOrdered By: Stephanie Burgess on 12-19-2022 Urea nitrogen [Mass/Vol] 32 mg/dL 7-25 [facility] IntraOperative Documentson 1 IntraOperative Documents [id number]#1.00CD:127 Normal [facility] Operative Reporton Operative Report SURGERY DATE: 2022 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 lr Dictated: 12/06/2022 [id number] Transcribed: 12/06/2022 [facility] Comment on above: Result Comment: Elec tronically Signed By: Sindi Foster MD\.br\Date and Time Signed: 12/13/22 09:35 EDT Discharge Instructionson Discharge Instructions [id number]#1.00CD:127 [facility] IntraOperative Documentson 0 12-07-2022 IntraOperative Documents [id number]#1.00CD:127 [facility] IntraOperative Documents [id number]#1.00CD:127 [facility] Preoperative Documentson Preoperative Documents [id number]#1.00CD:127 [facility] Prescriptions/Work Noteson 0 12-07-2022 Prescriptions/Work Notes [id number]#1.00CD:127 [facility] Consent for Treatmenton 11-17 Consent for Treatment [id number]#1.00CD:127 [facility] Discharge Instructionson Discharge Instructions ADENIKE POTTER [...] these instructions at home: Medicines ? Take vuiv-zdn-akljsnd and prescription medicines only as told by [...] keep your urine pale yellow. ? Take xdep-pfi-xzmuprn or prescription medicines. Incision care ? Follow instructions from your health care provider about how to take care of your incisions. Make sure you: ? Wash your hands with soap and water for at least 20 seconds before and after you change your bandage (dressing). If soap and water are not available, use hand s (more content not included)... Normal [facility] Comment on above: Result Comment: Elec tronically Signed By: Mikhail SAHU, Halie Purvis\.abelino\Date and Time Signed: 12/06/22 11:25 EDT H&P Updateon 12-06-2022 H&P Update [id number]#1.00CD:127 Normal [facility] Inpatient Patient Summaryon 12-06-2022 Inpatient Patient Summary [place] [id number] [facility] Clinical Discharge Instructions PERSON INFORMATION Name: ADENIKE POTTER PHYSICIANS Admitting Physician: Sindi Foster MD Attending Physician: Sindi Foster MD PCP: TERI ARAGON DO Diagnosis: Tongue lesion Comment: PATIENT EDUCATION INFORMATION [...] By Mouth 3 times a day. Comment: Jose [facility] Main OR Intraoperative Recor don 12-06-2022 Main OR Intraoperative Record IntraOp Document Type FT Summary Primary Physician: Sindi Foster MD Finalized Date/Time: 12/06/22 21:09:50 Pt. Name: ADENIKE POTTER/Sex: 1955 Male Med Rec #: [id number] Physician: Sindi Foster MD Financial #: [id number] Pt. Type: A Room/Bed: [place] [address] Admit/Disch: 12/06/22 08:56:06 - 12/06/22 11:35:00 Institution: [...] 2 Entry 3 Case Attendee Sindi Foster MDhelm DATA ENTRY OPERATOR, Clarence Jean Role Performed Surgeon - Primary DATA ENTRY OPERATOR/SA Waste Handling Technician - Primary Time In 12/06/22 10:32:00 [...] Antibiotic No Time Out Jerri NUÑEZ, Sindi , Melbeta Participants Kavon RENO, Davis Moncada Terry T, Elisha Joay Time Out Complete 12/06/22 10:40:00 Outcomes Met? [...] (more content not included)... Normal [facility] Main OR PACU II [place] Main OR PACU II Record PACU Phase II Document Type FT Summary Primary Physician: Sindi Foster MD Finalized Date/Time: 12/06/22 11:46:46 Pt. Name: ADENIKE POTTER/Sex: 1955 Male Med Rec #: [id number] Physician: Sindi Foster MD Financial #: [id number] Pt. Type: A Room/Bed: [facility] Admit/Disch: 12/06/22 08:56:06 - Institution: Case Times [...] Elizondo RN 12/06/22 11:46 Normal [facility] Main OR Preoperative Recordo n 12-06-2022 Main OR Preoperative Record PreOp Document Type FT Summary Primary Physician: Sindi Foster MD Finalized Date/Time: 12/06/22 10:48:18 Pt. Name: POTTERADENIKE BERGER /Sex: 1955 Male Med Rec #: [id number] Physician: Sindi Foster MD Financial #: [id number] Pt. Type: A Room/Bed: [facility]/ Admit/Disch: 12/06/22 08:56:06 - Institution: Case Times [...] Clarence Cannon 12/06/22 10:48 Normal [facility] Outpatient Surgery Discharge Instructionon 12-06-2022 Outpatient Surgery Discharge Instruction [place] [id number] Patient Discharge Instructions PERSON INFORMATION Name: ADENIKE [...] Marcos You may receive a survey from [employer] asking you to rate your care experience. Your feedback is important and will help us understand what we do well and how we can improve the quality of care we provide to you, your loved ones and our community. It?s an honor to serve you. Thank you for choosing [facility] HERE ARE THE MEDICATION CHANGES THAT [...] day. PATIENT EDUCATION INFORMATION Instructions: Medication Leaflets: [facility] Patient Education - Texton 0 12-06-2022 [...] these instructions at home: Medicines ? Take nfbp-fjh-qepriwe and prescription medicines only as told by [...] keep your urine pale yellow. ? Take iuzc-hsq-auwkppb or prescription medicines. Incision care ? Follow instructions from your health care provider about how to take care of your incisions. Make sure you: ? Wash your hands with soap and water for at least 20 seconds before and after you change your bandage (dressing). If soap and water are not available, use hand vending machine technician. ? Change your dressing as told by [...] (more content not included)... Normal [facility] Alanine aminotransferase [En zymatic activity/volume] in Serum or PlasmaOrdered By: Vivian Del Rosario on 11-26-2022 ALT [Catalytic activity/Vol] 18 U/L 7-52 [facility] Albumin [Mass/volume] in Ser um or Plasma by Bromocresol green (BCG) dye binding methoOrdered By: Vivian Del Rosario on 11-26-2022 Albumin BCG dye [Mass/Vol] 4.1 g/dL 3.5-5.7 [facility] Alkaline phosphatase [Enzyma tic activity/volume] in Serum or PlasmaOrdered By: Vivian Carin on 11-26-2022 ALP [Catalytic activity/Vol] 104 U/L 34-104 [facility] Aspartate aminotransferase [ Enzymatic activity/volume] in Serum or PlasmaOrdered By: Vivian Del Rosario on 11-26-2022 AST [Catalytic activity/Vol] 24 U/L 13-39 [facility] Basophils Auto (Bld) [#/Vol] Ordered By: Vivian Del Rosario on 11-26-2022 Basophils (Bld) [#/Vol] 0.0 10*3/uL 0.0-0.2 [facility] Basophils/100 WBC Auto (Bld) Ordered By: Vivian Del Rosario on 11-26-2022 Basophils/100 WBC (Bld) 0.7 % . [facility] Bilirubin.total [Mass/volume ] in Serum or PlasmaOrdered By: Vivian Del Rosario on 11-26-2022 Bilirubin [Mass/Vol] 0.8 mg/dL 0.3-1.0 [facility] Calcium [Mass/volume] in Ser um or PlasmaOrdered By: Vivian Del Rosario on 11-26-2022 Calcium [Mass/Vol] 10.7 mg/dL 8.6-10.[address] [facility] Carbon dioxide, total [Moles /volume] in Serum or PlasmaOrdered By: Vivian Del Rosario on 11-26-2022 CO2 [Moles/Vol] 32.4 mmol/L 21.0-31.0 [facility] Chloride [Moles/volume] in S elmira or PlasmaOrdered By: Vivian Del Rosario on 11-26-2022 Chloride [Moles/Vol] 102 mmol/L 98-107 [facility] Complete Blood Count Auto Di ffon 11-26-2022 Basophils (Bld) [#/Vol] 0.0 10*3/uL Normal 0.0-0.2 [facility] Comment on above: Result Comment: PERF ORMED BY:[facility] [place] [phone] MEDICAL DIRECTORAPRIL VEGA M.D. Performed By: #### C BC, LDH, CMP ####[address] Basophils/100 WBC (Bld) 0.7 % Normal . [facility] Comment on above: Performed By: #### C BC, LDH, CMP ####[address] Eosinophils (Bld) [#/Vol] 0.3 10*3/uL Normal 0.0-0.45 [facility] Comment on above: Performed By: #### C BC, LDH, CMP ####[address] Eosinophils/100 WBC (Bld) 4.3 % Normal . [facility] Comment on above: Performed By: #### C BC, LDH, CMP ####[address] Erythrocyte distribution width (RBC) [Ratio] 14.9 % High 12.0-14.8 [facility] Comment on above: Performed By: #### C BC, LDH, CMP ####[address] Hematocrit (Bld) [Volume fraction] 39.8 % Normal 38.8-50.0 [facility] Comment on above: Performed By: #### C BC, LDH, CMP ####[address] Hemoglobin (Bld) [Mass/Vol] 13.0 g/dL Normal 13.0-17.0 [facility] Comment on above: Performed By: #### C BC, LDH, CMP ####[address] Lymphocytes (Bld) [#/Vol] 1.0 10*3/uL Normal 1.00-4.8 [facility] Comment on above: Performed By: #### C BC, LDH, CMP ####[address] Lymphocytes/100 WBC (Bld) 13.3 % Normal . [facility] Comment on above: Performed By: #### C BC, LDH, CMP ####[address] MCH (RBC) [Entitic mass] 27.9 pg Normal 27.5-35.2 [facility] Comment on above: Performed By: #### C BC, LDH, CMP ####[address] MCV (RBC) [Entitic vol] 85.5 fL Normal 83.5-101 [facility] Comment on above: Performed By: #### C BC, LDH, CMP ####[address] Mean Corpuscular HGB Conc 32.6 g/dL Normal 32.5-35.6 [facility] Comment on above: Performed By: #### C BC, LDH, CMP ####[address] Monocytes (Bld) [#/Vol] 0.9 10*3/uL High 0.0-0.8 [facility] Comment on above: Performed By: #### C BC, LDH, CMP ####[address] Monocytes/100 WBC (Bld) 12.5 % Normal . [facility] Comment on above: Performed By: #### C BC, LDH, CMP ####[address] Neutrophils (Bld) [#/Vol] 5.1 10*3/uL Normal 1.8-7.7 [facility] Comment on above: Performed By: #### C BC, LDH, CMP ####[address] Neutrophils/100 WBC (Bld) 69.2 % Normal . [facility] Comment on above: Performed By: #### C BC, LDH, CMP ####[place] [id number] [facility] NRBC% 0.1 /100{WBC} Normal 0-0.5 [facility] Comment on above: Performed By: #### C BC, LDH, CMP ####[place] [id number] [facility] Platelet mean volume (Bld) [Entitic vol] 7.5 fL Normal 6.6-10.1 [facility] Comment on above: Performed By: #### C BC, LDH, CMP ####[place] [id number] [facility] Platelets (Bld) [#/Vol] 213 10*3/uL Normal 150-450 [facility] Comment on above: Performed By: #### C BC, LDH, CMP ####[address] RBC (Bld) [#/Vol] 4.66 10*6/uL Normal 3.90-5.60 [facility] Comment on above: Performed By: #### C BC, LDH, CMP ####[address] WBC (Bld) [#/Vol] 7.4 10*3/uL Normal 4.1-10.[address] [facility] Comment on above: Performed By: #### C BC, LDH, CMP ####[place] [id number] [facility] Comprehensive Metabolic Pane anny 11-26-2022 Albumin [Mass/Vol] 4.1 g/dL Normal 3.5-5.[address] [facility] Comment on above: Performed By: #### C BC, LDH, CMP ####[place] [id number] [facility] Albumin/Globulin [Mass ratio] 1.8 {ratio} Normal [facility] Comment on above: Performed By: #### C BC, LDH, CMP ####[place] [id number] [facility] ALP [Catalytic activity/Vol] 104 U/L Normal 34-104 [facility] Comment on above: Performed By: #### C BC, LDH, CMP ####[place] [address] [place] [address] [facility] ALT [Catalytic activity/Vol] 18 U/L Normal 7-52 [facility] Comment on above: Performed By: #### C BC, LDH, CMP ####[place] [id number] [facility] Anion gap [Moles/Vol] 10.2 mmol/L Normal 6.0-15.0 [facility] Comment on above: Performed By: #### C BC, LDH, CMP ####[place] [id number] [facility] AST [Catalytic activity/Vol] 24 U/L Normal 13-39 [facility] Comment on above: Performed By: #### C BC, LDH, CMP ####[place] [id number] [facility] Bilirubin [Mass/Vol] 0.8 mg/dL Normal 0.3-1.0 [facility] Comment on above: Performed By: #### C BC, LDH, CMP ####[place] [id number] [facility] Calcium [Mass/Vol] 10.7 mg/dL High 8.6-10.[address] [facility] Comment on above: Performed By: #### C BC, LDH, CMP ####[place] [id number] [facility] Chloride [Moles/Vol] 102 mmol/L Normal 98-107 [facility] Comment on above: Performed By: #### C BC, LDH, CMP ####[place] [id number] [facility] CO2 [Moles/Vol] 32.4 mmol/L High 21.0-31.0 [facility] Comment on above: Performed By: #### C BC, LDH, CMP ####[place] [id number] [facility] Creatinine [Mass/Vol] 1.35 mg/dL High 0.70-1.30 [facility] Comment on above: Performed By: #### C BC LDH, CMP ####[place] [id number] [facility] GFR/1.73 sq M.predicted MDRD (S/P/Bld) [Vol rate/Area] 58.266 mL/min/{1.73_m2} Normal [facility] Comment on above: Performed By: #### C BC, LDH, CMP ####[place] [id number] [facility] Globulin (S) [Mass/Vol] 2.3 g/dL Normal [facility] Comment on above: Performed By: #### C BC, LDH, CMP ####[place] [id number] [facility] Glucose [Mass/Vol] 123 mg/dL High 70-[address] [facility] Comment on above: Result Comment: [place] Glucose Reference Range is dependent on time and content of last meal. Glucose of more than 200 mg/dL in a nonstressed, ambulatory subject supports the diagnosis of Diabetes Mellitus. ADA recommended reference range Performed By: #### C BC LDH, CMP ####[place] [id number] [facility] Potassium [Moles/Vol] 4.6 mmol/L Normal 3.5-5.1 [facility] Comment on above: Performed By: #### C BC, LDH, CMP ####[place] [id number] [facility] Protein [Mass/Vol] 6.4 g/dL Normal 6.4-8.[address] [facility] Comment on above: Performed By: #### C BC, LDH, CMP ####[place] [id number] [facility] Sodium [Moles/Vol] 140 mmol/L Normal 136-[address] [facility] Comment on above: Performed By: #### C BC, LDH, CMP ####[place] [id number] [facility] Urea nitrogen [Mass/Vol] 25 mg/dL Normal 7-25 [facility] Comment on above: Performed By: #### C BC, LDH, CMP ####[facility] [place] [id number] [facility] Creatinine [Mass/volume] in Serum or PlasmaOrdered By: Vivian Del Rosario on 11-26-2022 Creatinine [Mass/Vol] 1.35 mg/dL 0.70-1.30 [facility] Eosinophils Auto (Bld) [#/Vo l]Ordered By: Vivian Del Rosario on 11-26-2022 Eosinophils (Bld) [#/Vol] 0.3 10*3/uL 0.0-0.45 [facility] Eosinophils/100 WBC Auto (Bl d)Ordered By: Vivian Del Rosario on 11-26-2022 Eosinophils/100 WBC (Bld) 4.3 % . [facility] Erythrocyte distribution wid th Auto (RBC) [Ratio]Ordered By: Vivian Del Rosario on 11-26-2022 Erythrocyte distribution width (RBC) [Ratio] 14.9 % 12.0-14.8 [facility] Globulin Calc (S) [Mass/Vol] Ordered By: Vivian Del Rosario on 11-26-2022 Globulin (S) [Mass/Vol] 2.3 g/dL [facility] Glucose [Mass/volume] in Ser um or PlasmaOrdered By: Vivian Del Rosario on 11-26-2022 Glucose [Mass/Vol] 123 mg/dL 70-[address] [facility] Comment on above: ADA recommended refe rence rangeRandom Glucose Reference Range is dependent on time and content of last meal. Glucose of more than 200 mg/dL in a nonstressed, ambulatory subject supports the diagnosis of Diabetes Mellitus. Hematocrit Auto (Bld) [Volum e fraction]Ordered By: Vivian Del Rosario on 11-26-2022 Hematocrit (Bld) [Volume fraction] 39.8 % 38.8-50.0 [facility] Hemoglobin [Mass/volume] in BloodOrdered By: Vivian Del Rosario on 11-26-2022 Hemoglobin (Bld) [Mass/Vol] 13.0 g/dL 13.0-17.0 [facility] LDH Lactate Dehydrogenaseon 11-26-2022 LDH Lactate Dehydrogenase 239 U/L Normal 140-271 [facility] Comment on above: Result Comment: PERF ORMED BY:[facility] [place], [place] [id number] MEDICAL DIRECTORAPRIL VEGA M.D. Performed By: #### C BC, LDH, CMP ####[facility] [place] [address] [facility] Lactate dehydrogenase [Enzym atic activity/volume] in Serum or Plasma by Lactate to pyOrdered By: Vivian Del Rosario on 11-26-2022 LDH Lactate to pyruvate reaction [Catalytic activity/Vol] 239 U/L 140-271 [facility] Leukocytes [#/volume] correc martin for nucleated erythrocytes in Blood by Automated counOrdered By: Vivian Del Rosario on 11-26-2022 WBC corrected for nucl RBC Auto (Bld) [#/Vol] 7.4 10*3/uL 4.1-10.5 [facility] Lymphocytes Auto (Bld) [#/Vo l]Ordered By: Vivian Del Rosario on 11-26-2022 Lymphocytes (Bld) [#/Vol] 1.0 10*3/uL 1.00-4.8 [facility] Lymphocytes/100 WBC Auto (Bl d)Ordered By: Vivian Del Rosario on 11-26-2022 Lymphocytes/100 WBC (Bld) 13.3 % . [facility] MCH Auto (RBC) [Entitic mass ]Ordered By: Vivian Del Rosario on 11-26-2022 MCH (RBC) [Entitic mass] 27.9 pg 27.5-35.2 [facility] MCHC Auto (RBC) [Mass/Vol]Or dered By: Vivian Del Rosario on 11-26-2022 MCHC (RBC) [Mass/Vol] 32.6 g/dL 32.5-35.6 [facility] MCV Auto (RBC) [Entitic vol] Ordered By: Vivian Del Rosario on 11-26-2022 MCV (RBC) [Entitic vol] 85.5 fL 83.5-101 [facility] Monocytes Auto (Bld) [#/Vol] Ordered By: Vivian Del Rosario on 11-26-2022 Monocytes (Bld) [#/Vol] 0.9 10*3/uL 0.0-0.8 [facility] Monocytes/100 WBC Auto (Bld) Ordered By: Vivian Del Rosario on 11-26-2022 Monocytes/100 WBC (Bld) 12.5 % . [facility] Neutrophils Auto (Bld) [#/Vo l]Ordered By: Vivian Del Rosario on 11-26-2022 Neutrophils (Bld) [#/Vol] 5.1 10*3/uL 1.8-7.7 [facility] Neutrophils/100 WBC Auto (Bl d)Ordered By: Vivian Del Rosario on 11-26-2022 Neutrophils/100 WBC (Bld) 69.2 % . [facility] No Panel InformationOrdered By: Vivian Del Rosario on 11-26-2022 Estimated GFR (CKD-EPI) 58.266 mL/Min [facility] Creatinine Clearance (Chem N/A [facility] Nucleated erythrocytes [Pres ence] in Blood by Automated countOrdered By: Vivian Del Rosario on 11-26-2022 Nucleated RBC Auto Ql (Bld) 0.1 /100{WBC} 0-0.5 [facility] Platelet mean volume Auto (B ld) [Entitic vol]Ordered By: Vivian Del Rosario on 11-26-2022 Platelet mean volume (Bld) [Entitic vol] 7.5 fL 6.6-10.1 [facility] Platelets Auto (Bld) [#/Vol] Ordered By: Vivian Del Rosario on 11-26-2022 Platelets (Bld) [#/Vol] 213 10*3/uL 150-450 [facility] Potassium [Moles/volume] in Serum or PlasmaOrdered By: Vivian Del Rosario on 11-26-2022 Potassium [Moles/Vol] 4.6 mmol/L 3.5-5.1 [facility] Protein [Mass/volume] in Ser um or PlasmaOrdered By: Vivian Del Rosario on 11-26-2022 Protein [Mass/Vol] 6.4 g/dL 6.4-8.[address] [facility] RBC Auto (Bld) [#/Vol]Ordere d By: Vivian Bellke on 11-26-2022 RBC (Bld) [#/Vol] 4.66 10*6/uL 3.90-5.60 [facility] Serum or plasma albumin/glob ulin mass ratioOrdered By: Vivian Carin on 11-26-2022 Albumin/Globulin [Mass ratio] 1.8 {ratio} [facility] Serum or plasma anion gap de terminationOrdered By: Vivian Del Rosario on 11-26-2022 Anion gap [Moles/Vol] 10.2 mmol/L 6.0-15.0 [facility] Sodium [Moles/volume] in Ser um or PlasmaOrdered By: Vivian Del Rosario on 11-26-2022 Sodium [Moles/Vol] 140 mmol/L 136-[address] [facility] Urea nitrogen [Mass/volume] in Serum or PlasmaOrdered By: Vivian Del Rosario on 11-26-2022 Urea nitrogen [Mass/Vol] 25 mg/dL 7 [facility] WBC Auto (Bld) [#/Vol]Ordere d By: Vivian Del Rosario on 11-26-2022 WBC (Bld) [#/Vol] 7.4 10*3/uL 4.1-10.[address] [facility] Consent for Procedure/Surger yon 11-15-2022 Consent for Procedure/Surgery [id number]#[id number]:127 Normal [facility] Alanine aminotransferase [En zymatic activity/volume] in Serum or PlasmaOrdered By: Teri Ybarra on 11-12-2022 ALT [Catalytic activity/Vol] 17 U/L 7-52 [facility] Albumin [Mass/volume] in Ser um or Plasma by Bromocresol green (BCG) dye binding methoOrdered By: Teri Ybarra on 11-12-2022 Albumin BCG dye [Mass/Vol] 4.1 g/dL 3.5-5.7 [facility] Alkaline phosphatase [Enzyma tic activity/volume] in Serum or PlasmaOrdered By: Teri Ybarra on 11-12-2022 ALP [Catalytic activity/Vol] 104 U/L 34-104 [facility] Aspartate aminotransferase [ Enzymatic activity/volume] in Serum or PlasmaOrdered By: Teri Ybarra on 11-12-2022 AST [Catalytic activity/Vol] 24 U/L 13-39 [facility] Basophils Auto (Bld) [#/Vol] Ordered By: Teri Ybarra on 11-12-2022 Basophils (Bld) [#/Vol] 0.0 10*3/uL 0.0-0.2 [facility] Basophils/100 WBC Auto (Bld) Ordered By: Teri Ybarra on 11-12-2022 Basophils/100 WBC (Bld) 0.7 % . [facility] Bilirubin.total [Mass/volume ] in Serum or PlasmaOrdered By: Teri Ybarra on 11-12-2022 Bilirubin [Mass/Vol] 0.7 mg/dL 0.3-1.0 [facility] Calcium [Mass/volume] in Ser um or PlasmaOrdered By: Teri Ybarra on 11-12-2022 Calcium [Mass/Vol] 10.3 mg/dL 8.6-10.[address] [facility] Carbon dioxide, total [Moles /volume] in Serum or PlasmaOrdered By: Teri Ybarra on 11-12-2022 CO2 [Moles/Vol] 31.9 mmol/L 21.0-31.0 [facility] Chloride [Moles/volume] in S [place] or PlasmaOrdered By: Teri Ybarra on 11-12-2022 Chloride [Moles/Vol] 105 mmol/L 98-107 [facility] Complete Blood Count Auto Di ffon 11-12-2022 Basophils (Bld) [#/Vol] 0.0 10*3/uL Normal 0.0-0.2 [facility] Comment on above: Result Comment: PERF ORMED BY:[facility] [place], [place] [phone] MEDICAL DIRECTORAPRIL VEGA M.D. Performed By: #### C BC, URIC, CMP ####[facility] [place] [address] [facility] Basophils/100 WBC (Bld) 0.7 % Normal . [facility] Comment on above: Performed By: #### C BC, URIC, CMP ####[address] Eosinophils (Bld) [#/Vol] 0.4 10*3/uL Normal 0.0-0.45 [facility] Comment on above: Performed By: #### C BC, URIC, CMP ####[address] Eosinophils/100 WBC (Bld) 6.9 % Normal . [facility] Comment on above: Performed By: #### C BC, URIC, CMP ####[address] Erythrocyte distribution width (RBC) [Ratio] 15.0 % High 12.0-14.8 [facility] Comment on above: Performed By: #### C BC, URIC, CMP ####[address] Hematocrit (Bld) [Volume fraction] 36.8 % Low 38.8-50.0 [facility] Comment on above: Performed By: #### C BC, URIC, CMP ####[address] Hemoglobin (Bld) [Mass/Vol] 12.0 g/dL Low 13.0-17.0 [facility] Comment on above: Performed By: #### C BC, URIC, CMP ####[address] Lymphocytes (Bld) [#/Vol] 0.7 10*3/uL Low 1.00-4.8 [facility] Comment on above: Performed By: #### C BC, URIC, CMP ####[address] Lymphocytes/100 WBC (Bld) 12.7 % Normal . [facility] Comment on above: Performed By: #### C BC, URIC, CMP ####[address] MCH (RBC) [Entitic mass] 27.9 pg Normal 27.5-35.2 [facility] Comment on above: Performed By: #### C BC URIC, CMP ####[address] MCV (RBC) [Entitic vol] 85.4 fL Normal 83.5-101 [facility] Comment on above: Performed By: #### C BC URIC, CMP ####[address] Mean Corpuscular HGB Conc 32.7 g/dL Normal 32.5-35.6 [facility] Comment on above: Performed By: #### C BC URIC, CMP ####[address] Monocytes (Bld) [#/Vol] 0.7 10*3/uL Normal 0.0-0.8 [facility] Comment on above: Performed By: #### C BC URIC, CMP ####[address] Monocytes/100 WBC (Bld) 12.7 % Normal . [facility] Comment on above: Performed By: #### C BC URIC, CMP ####[address] Neutrophils (Bld) [#/Vol] 3.9 10*3/uL Normal 1.8-7.7 [facility] Comment on above: Performed By: #### C BC URIC, CMP ####[address] Neutrophils/100 WBC (Bld) 67.0 % Normal . [facility] Comment on above: Performed By: #### C BC URIC, CMP ####[address] NRBC% 0.1 /100{WBC} Normal 0-0.5 [facility] Comment on above: Performed By: #### C BC URIC, CMP ####[address] Platelet mean volume (Bld) [Entitic vol] 7.4 fL Normal 6.6-10.1 [facility] Comment on above: Performed By: #### C BC, URIC, CMP ####[place] [id number] [facility] Platelets (Bld) [#/Vol] 189 10*3/uL Normal 150-450 [facility] Comment on above: Performed By: #### C BC, URIC, CMP ####[address] RBC (Bld) [#/Vol] 4.30 10*6/uL Normal 3.90-5.60 [facility] Comment on above: Performed By: #### C BC, URIC, CMP ####[address] WBC (Bld) [#/Vol] 5.9 10*3/uL Normal 4.1-10.[address] [facility] Comment on above: Performed By: #### C BC, URIC, CMP ####[place] [id number] [facility] Comprehensive Metabolic Pane anny 11-12-2022 Albumin [Mass/Vol] 4.1 g/dL Normal 3.5-5.[address] [facility] Comment on above: Performed By: #### C BC, URIC, CMP ####[place] [id number] [facility] Albumin/Globulin [Mass ratio] 1.6 {ratio} Normal [facility] Comment on above: Performed By: #### C BC, URIC, CMP ####[place] [id number] [facility] ALP [Catalytic activity/Vol] 104 U/L Normal 34-104 [facility] Comment on above: Performed By: #### C BC, URIC, CMP ####[place] [id number] [facility] ALT [Catalytic activity/Vol] 17 U/L Normal 7-52 [facility] Comment on above: Performed By: #### C BC, URIC, CMP ####[place] [address] [place] [address] [facility] Anion gap [Moles/Vol] 8.7 mmol/L Normal 6.0-15.0 [facility] Comment on above: Performed By: #### C BC, URIC, CMP ####[address] [place] [address] [facility] AST [Catalytic activity/Vol] 24 U/L Normal 13-39 [facility] Comment on above: Performed By: #### C BC, URIC, CMP ####[address] [place] [address] [facility] Bilirubin [Mass/Vol] 0.7 mg/dL Normal 0.3-1.0 [facility] Comment on above: Performed By: #### C BC, URIC, CMP ####[address] [address] [place] [address] [facility] Calcium [Mass/Vol] 10.3 mg/dL Normal 8.6-10.[address] [facility] Comment on above: Performed By: #### C BC, URIC, CMP ####[address] [address] [place] Chloride [Moles/Vol] 105 mmol/L Normal 98-107 [facility] Comment on above: Performed By: #### C BC, URIC, CMP ####[address] [place] [address] [place] CO2 [Moles/Vol] 31.9 mmol/L High 21.0-31.0 [facility] Comment on above: Performed By: #### C BC, URIC, CMP ####[address] [place] [address] [place] Creatinine [Mass/Vol] 1.34 mg/dL High 0.70-1.30 [facility] Comment on above: Performed By: #### C BC, URIC, CMP ####[address] [place] [address] [place] GFR/1.73 sq M.predicted MDRD (S/P/Bld) [Vol rate/Area] 58.788 mL/min/{1.73_m2} [facility] Comment on above: Performed By: #### C BC URIC, CMP ####[place] [id number] [facility] Globulin (S) [Mass/Vol] 2.6 g/dL [facility] Comment on above: Performed By: #### C BC, URIC, CMP ####[place] [id number] [facility] Glucose [Mass/Vol] 116 mg/dL High 70-[address] [facility] Comment on above: Result Comment: [facility] Glucose Reference Range is dependent on time and content of last meal. Glucose of more than 200 mg/dL in a nonstressed, ambulatory subject supports the diagnosis of Diabetes Mellitus. ADA recommended reference range Performed By: #### C BC, URIC, CMP ####[place] [id number] [facility] Potassium [Moles/Vol] 4.6 mmol/L Normal 3.5-5.1 [facility] Comment on above: Performed By: #### C BC, URIC, CMP ####[place] [id number] [facility] Protein [Mass/Vol] 6.7 g/dL Normal 6.4-8.[address] [facility] Comment on above: Performed By: #### C BC, URIC, CMP ####[place] [id number] [facility] Sodium [Moles/Vol] 141 mmol/L Normal 136-[address] [facility] Comment on above: Performed By: #### C BC, URIC, CMP ####[place] [id number] [facility] Urea nitrogen [Mass/Vol] 27 mg/dL High 7-25 [facility] Comment on above: Performed By: #### C BC, URIC, CMP ####[place] [id number] [facility] Creatinine [Mass/volume] in Serum or PlasmaOrdered By: Teri Ybarra on 11-12-2022 Creatinine [Mass/Vol] 1.34 mg/dL 0.70-1.30 [facility] Eosinophils Auto (Bld) [#/Vo l]Ordered By: Teri Ybarra on 11-12-2022 Eosinophils (Bld) [#/Vol] 0.4 10*3/uL 0.0-0.45 [facility] Eosinophils/100 WBC Auto (Bl d)Ordered By: Teri Ybarra on 11-12-2022 Eosinophils/100 WBC (Bld) 6.9 % . [facility] Erythrocyte distribution wid th Auto (RBC) [Ratio]Ordered By: Teri Ybarra on 11-12-2022 Erythrocyte distribution width (RBC) [Ratio] 15.0 % 12.0-14.8 [facility] Globulin Calc (S) [Mass/Vol] Ordered By: Teri Ybarra on 11-12-2022 Globulin (S) [Mass/Vol] 2.6 g/dL [facility] Glucose [Mass/volume] in Ser um or PlasmaOrdered By: Teri Ybarra on 11-12-2022 Glucose [Mass/Vol] 116 mg/dL 70-[address] [facility] Comment on above: ADA recommended refe rence rangeRandom Glucose Reference Range is dependent on time and content of last meal. Glucose of more than 200 mg/dL in a nonstressed, ambulatory subject supports the diagnosis of Diabetes Mellitus. Hematocrit Auto (Bld) [Volum e fraction]Ordered By: Teri Ybarra on 11-12-2022 Hematocrit (Bld) [Volume fraction] 36.8 % 38.8-50.0 [facility] Hemoglobin [Mass/volume] in BloodOrdered By: Teri Ybarra on 11-12-2022 Hemoglobin (Bld) [Mass/Vol] 12.0 g/dL 13.0-17.0 [facility] Leukocytes [#/volume] correc martin for nucleated erythrocytes in Blood by Automated counOrdered By: Teri Ybarra on 11-12-2022 WBC corrected for nucl RBC Auto (Bld) [#/Vol] 5.9 10*3/uL 4.1-10.5 [facility] Lymphocytes Auto (Bld) [#/Vo l]Ordered By: Teri Ybarra on 11-12-2022 Lymphocytes (Bld) [#/Vol] 0.7 10*3/uL 1.00-4.8 [facility] Lymphocytes/100 WBC Auto (Bl d)Ordered By: Teri Ybarra on 11-12-2022 Lymphocytes/100 WBC (Bld) 12.7 % . [facility] MCH Auto (RBC) [Entitic mass ]Ordered By: Teri Ybarra on 11-12-2022 MCH (RBC) [Entitic mass] 27.9 pg 27.5-35.2 [facility] MCHC Auto (RBC) [Mass/Vol]Or dered By: Teri Ybarra on 11-12-2022 MCHC (RBC) [Mass/Vol] 32.7 g/dL 32.5-35.[address] [facility] MCV Auto (RBC) [Entitic vol] Ordered By: Teri Ybarra on 11-12-2022 MCV (RBC) [Entitic vol] 85.4 fL 83.5-101 [facility] Monocytes Auto (Bld) [#/Vol] Ordered By: Teri Ybarra on 11-12-2022 Monocytes (Bld) [#/Vol] 0.7 10*3/uL 0.0-0.8 [facility] Monocytes/100 WBC Auto (Bld) Ordered By: Teri Ybarra on 11-12-2022 Monocytes/100 WBC (Bld) 12.7 % . [facility] Neutrophils Auto (Bld) [#/Vo l]Ordered By: Teri Ybarra on 11-12-2022 Neutrophils (Bld) [#/Vol] 3.9 10*3/uL 1.8-7.7 [facility] Neutrophils/100 WBC Auto (Bl d)Ordered By: Teri Ybarra on 11-12-2022 Neutrophils/100 WBC (Bld) 67.0 % . [facility] No Panel InformationOrdered By: Teri Ybarra on 11-12-2022 Estimated GFR (CKD-EPI) 58.788 mL/Min [facility] Creatinine Clearance (Chem N/A [facility] Nucleated erythrocytes [Pres ence] in Blood by Automated countOrdered By: Teri Ybarra on 11-12-2022 Nucleated RBC Auto Ql (Bld) 0.1 /100{WBC} 0-0.5 [facility] Platelet mean volume Auto (B ld) [Entitic vol]Ordered By: Teri Ybarra on 11-12-2022 Platelet mean volume (Bld) [Entitic vol] 7.4 fL 6.6-10.1 [facility] Platelets Auto (Bld) [#/Vol] Ordered By: Teri Ybarra on 11-12-2022 Platelets (Bld) [#/Vol] 189 10*3/uL 150-450 [facility] Potassium [Moles/volume] in Serum or PlasmaOrdered By: Teri Ybarra on 11-12-2022 Potassium [Moles/Vol] 4.6 mmol/L 3.5-5.1 [facility] Protein [Mass/volume] in Ser um or PlasmaOrdered By: Teri Ybarra on 11-12-2022 Protein [Mass/Vol] 6.7 g/dL 6.4-8.[address] [facility] RBC Auto (Bld) [#/Vol]Ordere d By: Teri Ybarra on 11-12-2022 RBC (Bld) [#/Vol] 4.30 10*6/uL 3.90-5.60 [facility] Serum or plasma albumin/glob ulin mass ratioOrdered By: Teri Ybarra on 11-12-2022 Albumin/Globulin [Mass ratio] 1.6 {ratio} [facility] Serum or plasma anion gap de terminationOrdered By: Teri Ybarra on 11-12-2022 Anion gap [Moles/Vol] 8.7 mmol/L 6.0-15.0 [facility] Sodium [Moles/volume] in Ser um or PlasmaOrdered By: Teri Ybarra on 11-12-2022 Sodium [Moles/Vol] 141 mmol/L 136-[address] [facility] Urate [Mass/volume] in Serum or PlasmaOrdered By: Teri Ybarra on 11-12-2022 Urate [Mass/Vol] 5.0 mg/dL 4.4-7.6 [facility] Urea nitrogen [Mass/volume] in Serum or PlasmaOrdered By: Teri Ybarra on 11-12-2022 Urea nitrogen [Mass/Vol] 27 mg/dL 10-09 [facility] Uric Acidon 11-12-2022 Urate [Mass/Vol] 5.0 mg/dL Normal 4.4-7.6 [facility] Comment on above: Result Comment: PERF ORMED BY:[place] [address] [place], [place] [id number] MEDICAL DIRECTORAPRIL VEGA M.D. Performed By: #### C BC, URIC, CMP ####[facility] [address] [place] [address] [facility] WBC Auto (Bld) [#/Vol]Ordere d By: Teri Ybarra on 11-12-2022 WBC (Bld) [#/Vol] 5.9 10*3/uL 4.1-10.[address] [facility] A1C HEMOGLOBINon 10-11-2022 HbA1c (Bld) [Mass fraction] 7.2 % [employer] Other HbA1c (Bld) [Mass fraction]o n 10-11-2022 A1C HEMOGLOBIN [facility] [employer] Other Potassiumon 10-10-2022 Potassium [Moles/Vol] 4.0 mmol/L Normal 3.5-5.1 [facility] Comment on above: Order Comment: Reaso n for Exam Low serum potassium level Result Comment: PERF ORMED BY:[place] [address] [place], [place] [phone] MEDICAL DIRECTORAPRIL VEGA M.D. Performed By: #### K ####[place] [place] [address] [facility] Potassium [Moles/volume] in Serum or PlasmaOrdered By: Geeta Dumont on 10-10-2022 Potassium [Moles/Vol] 4.0 mmol/L 3.5-5.1 [facility] MR head/brain wo conon 09-28 MR head/brain wo con Normal [facility] Office Visit (Cardiology)on 09-07-2022 Follow-up visit Diagnoses/Problems Assessed Atherosclerosis of [place] coronary artery without angina pectoris (414.01) (I25.10) [...] (Z87.891) Quit in 2006 Orders Atherosclerosis of [place] coronary artery without angina pectoris Renew: Aspirin Adult Low Dose 81 MG Oral Tablet Delayed Release; TAKE 1 TABLET DAILY Class 2 obesity with body mass index (BMI) of 35.0 to 35.9 in adult Healthy Weight Tips; Status:Complete - Retrospective Authorization; Done: [id number] Some eating tips that can help you lose weight.; Status:Complete - Retrospective Authorization; Done: [id number] Hyperlipidemia Renew: Atorvastatin Calcium 20 MG Oral Tablet; TAKE 1 TABLET DAILY SocHx: Former smoker Tobacco Use Screening; Status:Complete; Done: [id number] Patient Instructions Please bring all medicines, vitamins, [...] CALL 911) (more content not included)... Normal Brammo Tobacco Screening.on 023 Adult depression screening assessment No [facility] [address] DO Work Phone: Fall risk assessment a) No falls within the last year [facility] [address] DO Work Phone: Tobacco use status CPHS b) No [facility] [address] DO Work Phone: Basic Metabolic Panelon 08-17 Anion gap [Moles/Vol] 14.0 mmol/L Normal 6.0-15.0 [facility] Comment on above: Performed By: #### B MP ####[facility] [place] [address] [facility] Calcium [Mass/Vol] 10.5 mg/dL High 8.6-10.[address] [facility] Comment on above: Result Comment: PERF ORMED BY:[place] [id number] [place], [place] [phone] MEDICAL DIRECTORAPRIL VEGA M.D. Performed By: #### B MP ####[facility] [place] [address] [facility] Chloride [Moles/Vol] 102 mmol/L Normal 98-107 [facility] Comment on above: Performed By: #### B MP ####[place] [place] [address] [facility] CO2 [Moles/Vol] 26.9 mmol/L Normal 21.0-31.0 [facility] Comment on above: Performed By: #### B MP ####[address] [address] [facility] Creatinine [Mass/Vol] 1.12 mg/dL Normal 0.70-1.30 [facility] Comment on above: Performed By: #### B MP ####[place] [address] [place] [id number] [facility] GFR/1.73 sq M.predicted MDRD (S/P/Bld) [Vol rate/Area] mL/min/{1.73_m2} Normal [facility] Comment on above: Performed By: #### B MP ####[place] [id number] [facility] Glucose [Mass/Vol] 137 mg/dL High 70-[address] [facility] Comment on above: Result Comment: [place] Glucose Reference Range is dependent on time and content of last meal. Glucose of more than 200 mg/dL in a nonstressed, ambulatory subject supports the diagnosis of Diabetes Mellitus. ADA recommended reference range Performed By: #### B MP ####[place] [id number] [facility] Potassium [Moles/Vol] 3.9 mmol/L Normal 3.5-5.1 [facility] Comment on above: Performed By: #### B MP ####[address] [address] [place] Sodium [Moles/Vol] 139 mmol/L Normal 136-[address] [facility] Comment on above: Performed By: #### B MP ####[place] [id number] [facility] Urea nitrogen [Mass/Vol] 23 mg/dL Normal 7-25 [facility] Comment on above: Performed By: #### B MP ####[facility] [address] [place] [address] [facility] Calcium [Mass/volume] in Ser um or PlasmaOrdered By: Stephanie Burgess on 09-05-2022 Calcium [Mass/Vol] 10.5 mg/dL 8.6-10.[address] [facility] Carbon dioxide, total [Moles /volume] in Serum or PlasmaOrdered By: Stephanie Burgess on 09-05-2022 CO2 [Moles/Vol] 26.9 mmol/L 21.0-31.0 [facility] Chloride [Moles/volume] in S [place] or PlasmaOrdered By: Stephanie Burgess on 09-05-2022 Chloride [Moles/Vol] 102 mmol/L 98-107 [facility] Creatinine [Mass/volume] in Serum or PlasmaOrdered By: Stephanie Burgess on 09-05-2022 Creatinine [Mass/Vol] 1.12 mg/dL 0.70-1.30 [facility] Glucose [Mass/volume] in Ser um or PlasmaOrdered By: Stephanie Burgess on 09-05-2022 Glucose [Mass/Vol] 137 mg/dL 70-[address] [facility] Comment on above: ADA recommended refe rence rangeRandom Glucose Reference Range is dependent on time and content of last meal. Glucose of more than 200 mg/dL in a nonstressed, ambulatory subject supports the diagnosis of Diabetes Mellitus. No Panel InformationOrdered By: Stephanie Burgess on 09-05-2022 Estimated GFR (CKD-EPI) > 60.0 mL/Min [facility] Creatinine Clearance (Chem N/A [facility] No Panel Informationon 09-05 > 60.0 Normal [facility] [facility] [address] DO Work Phone: 14.0\S\14.0 Normal 6.0-15.0 [facility] [facility] [address] DO Work Phone: 10.5\S\10.5 above high threshold 8.6-10.3 [facility] [address] DO Work Phone: Comment on above: PERFORMED BY:[facility] [place], [place] [phone] MEDICAL DIRECTORAPRIL VEGA M.D. 26.9\S\26.9 Normal 21.0-31.0 [facility] [address] DO Work Phone: [phone] 102\S\102 Normal 98-107 [facility] [address] DO Work Phone: [phone] 3.9\S\3.9 Normal 3.5-5.1 [facility] [address] DO Work Phone: [phone] 139\S\139 Normal 136-145 [facility] [place] [address] DO Work Phone: [phone] 1.12\S\1.12 Normal 0.70-1.30 [facility] [place] [address] DO Work Phone: [phone] 23\S\23 Normal 7-25 [facility] [place] [address] DO Work Phone: [phone] 137\S\137 above high threshold 70-100 [facility] [place] [address] DO Work Phone: Comment on above: Random Glucose Refer ence Range is dependent on time and content of last meal. Glucose of more than 200 mg/dL in a nonstressed, ambulatory subject supports the diagnosis of Diabetes Mellitus. ADA recommended reference range Potassium [Moles/volume] in Serum or PlasmaOrdered By: Stephanie Burgess on 09-05-2022 Potassium [Moles/Vol] 3.9 mmol/L 3.5-5.1 [facility] Serum or plasma anion gap de terminationOrdered By: Stephanie Burgess on 09-05-2022 Anion gap [Moles/Vol] 14.0 mmol/L 6.0-15.0 [facility] Sodium [Moles/volume] in Ser um or PlasmaOrdered By: Stephanie Burgess on 09-05-2022 Sodium [Moles/Vol] 139 mmol/L 136-[address] [facility] Urea nitrogen [Mass/volume] in Serum or PlasmaOrdered By: Stephanie Burgess on 09-05-2022 Urea nitrogen [Mass/Vol] 23 mg/dL 7-25 [facility] XR cervical spine 2Von 09-03 XR cervical spine 2V Normal [facility] Alanine aminotransferase [En zymatic activity/volume] in Serum or PlasmaOrdered By: Geeta Dumont on 08-29-2022 ALT [Catalytic activity/Vol] 19 U/L 7-52 [facility] Albumin [Mass/volume] in Ser um or Plasma by Bromocresol green (BCG) dye binding methoOrdered By: Geeta Dumont on 08-29-2022 Albumin BCG dye [Mass/Vol] 4.3 g/dL 3.5-5.7 [facility] Alkaline phosphatase [Enzyma tic activity/volume] in Serum or PlasmaOrdered By: Geeta Dumont on 08-29-2022 ALP [Catalytic activity/Vol] 96 U/L 34-104 [facility] Aspartate aminotransferase [ Enzymatic activity/volume] in Serum or PlasmaOrdered By: Geeta Dumont on 08-29-2022 AST [Catalytic activity/Vol] 25 U/L 13-39 [facility] Basophils Auto (Bld) [#/Vol] Ordered By: Geeta Dumont on 08-29-2022 Basophils (Bld) [#/Vol] 0.0 10*3/uL 0.0-0.2 [facility] Basophils/100 WBC Auto (Bld) Ordered By: Geeta Dumont on 08-29-2022 Basophils/100 WBC (Bld) 0.7 % . [facility] Bilirubin.total [Mass/volume ] in Serum or PlasmaOrdered By: Geeta Dumont on 08-29-2022 Bilirubin [Mass/Vol] 0.6 mg/dL 0.3-1.0 [facility] Calcium [Mass/volume] in Ser um or PlasmaOrdered By: Geeta Dumont on 08-29-2022 Calcium [Mass/Vol] 10.6 mg/dL 8.6-10.[address] [facility] Carbon dioxide, total [Moles /volume] in Serum or PlasmaOrdered By: Geeta Dumont on 08-29-2022 CO2 [Moles/Vol] 28.0 mmol/L 21.0-31.0 [facility] Chloride [Moles/volume] in S [place] or PlasmaOrdered By: Geeta Dumont on 08-29-2022 Chloride [Moles/Vol] 102 mmol/L 98-107 [facility] Cholesterol [Mass/volume] in Serum or PlasmaOrdered By: Geeta Dumont on 08-29-2022 Cholesterol [Mass/Vol] 141 mg/dL 140-200 [facility] Comment on above: Chol less than 200 m g/dl low riskChol 201-239 mg/dl borderline riskChol 240 mg/dl and greater high risk Cholesterol in LDL Calc [Mas s/Vol]Ordered By: Geeta Dumont on 08-29-2022 Cholesterol in LDL [Mass/Vol] 77 mg/dL 0-100 [facility] Comment on above: LDL ATP III CLASSIFI CATIONLDL less than 100 mg/dL OptimalLDL 100-129 mg/dL Near or above optimalLDL 130-159 mg/dL Borderline highLDL 160-189 mg/dL HighLDL greater than 189 mg/dL Very high Cholesterol in VLDL Calc [Ma ss/Vol]Ordered By: Geeta Dumont on 08-29-2022 Cholesterol in VLDL [Mass/Vol] 19 mg/dL [facility] Complete Blood Count Auto Di ffon 08-29-2022 Basophils (Bld) [#/Vol] 0.0 10*3/uL Normal 0.0-0.2 [facility] Comment on above: Order Comment: Reaso n for Exam Type 2 diabetes mellitus with other circulatory complication Result Comment: PERF ORMED BY:[facility] [place] [phone] MEDICAL DIRECTORAPRIL VEGA M.D. Performed By: #### T SH3 wRFLX, B12, CBC, CMP, URMACRERAT, LIPID, MG ####[facility] [place] [address] [facility] Basophils/100 WBC (Bld) 0.7 % Normal . [facility] Comment on above: Order Comment: Reaso n for Exam Type 2 diabetes mellitus with other circulatory complication Performed By: #### T SH3 wRFLX, B12, CBC, CMP, URMACRERAT, LIPID, MG ####[address] Eosinophils (Bld) [#/Vol] 0.4 10*3/uL Normal 0.0-0.45 [facility] Comment on above: Order Comment: Reaso n for Exam Type 2 diabetes mellitus with other circulatory complication Performed By: #### T SH3 wRFLX, B12, CBC, CMP, URMACRERAT, LIPID, MG ####[address] Eosinophils/100 WBC (Bld) 6.7 % Normal . [facility] Comment on above: Order Comment: Reaso n for Exam Type 2 diabetes mellitus with other circulatory complication Performed By: #### T SH3 wRFLX, B12, CBC, CMP, URMACRERAT, LIPID, MG ####[address] Erythrocyte distribution width (RBC) [Ratio] 15.2 % High 12.0-14.8 [facility] Comment on above: Order Comment: Reaso n for Exam Type 2 diabetes mellitus with other circulatory complication Performed By: #### T SH3 wRFLX, B12, CBC, CMP, URMACRERAT, LIPID, MG ####[address] Hematocrit (Bld) [Volume fraction] 38.7 % Low 38.8-50.0 [facility] Comment on above: Order Comment: Reaso n for Exam Type 2 diabetes mellitus with other circulatory complication Performed By: #### T SH3 wRFLX, B12, CBC, CMP, URMACRERAT, LIPID, MG ####[address] Hemoglobin (Bld) [Mass/Vol] 12.9 g/dL Low 13.0-17.0 [facility] Comment on above: Order Comment: Reaso n for Exam Type 2 diabetes mellitus with other circulatory complication Performed By: #### T SH3 wRFLX, B12, CBC, CMP, URMACRERAT, LIPID, MG ####[address] Lymphocytes (Bld) [#/Vol] 0.9 10*3/uL Low 1.00-4.8 [facility] Comment on above: Order Comment: Reaso n for Exam Type 2 diabetes mellitus with other circulatory complication Performed By: #### T SH3 wRFLX, B12, CBC, CMP, URMACRERAT, LIPID, MG ####[address] Lymphocytes/100 WBC (Bld) 14.4 % Normal . [facility] Comment on above: Order Comment: Reaso n for Exam Type 2 diabetes mellitus with other circulatory complication Performed By: #### T SH3 wRFLX, B12, CBC, CMP, URMACRERAT, LIPID, MG ####[address] MCH (RBC) [Entitic mass] 28.8 pg Normal 27.5-35.2 [facility] Comment on above: Order Comment: Reaso n for Exam Type 2 diabetes mellitus with other circulatory complication Performed By: #### T SH3 wRFLX, B12, CBC, CMP, URMACRERAT, LIPID, MG ####[address] MCV (RBC) [Entitic vol] 86.6 fL Normal 83.5-101 [facility] Comment on above: Order Comment: Reaso n for Exam Type 2 diabetes mellitus with other circulatory complication Performed By: #### T SH3 wRFLX, B12, CBC, CMP, URMACRERAT, LIPID, MG ####[address] Mean Corpuscular HGB Conc 33.3 g/dL Normal 32.5-35.6 [facility] Comment on above: Order Comment: Reaso n for Exam Type 2 diabetes mellitus with other circulatory complication Performed By: #### T SH3 wRFLX, B12, CBC, CMP, URMACRERAT, LIPID, MG ####[address] [place] [address] [facility] Monocytes (Bld) [#/Vol] 0.6 10*3/uL Normal 0.0-0.8 [facility] Comment on above: Order Comment: Reaso n for Exam Type 2 diabetes mellitus with other circulatory complication Performed By: #### T SH3 wRFLX, B12, CBC, CMP, URMACRERAT, LIPID, MG ####[place] [id number] [facility] Monocytes/100 WBC (Bld) 9.9 % Normal . [facility] Comment on above: Order Comment: Reaso n for Exam Type 2 diabetes mellitus with other circulatory complication Performed By: #### T SH3 wRFLX, B12, CBC, CMP, URMACRERAT, LIPID, MG ####[address] Neutrophils (Bld) [#/Vol] 4.4 10*3/uL Normal 1.8-7.7 [facility] Comment on above: Order Comment: Reaso n for Exam Type 2 diabetes mellitus with other circulatory complication Performed By: #### T SH3 wRFLX, B12, CBC, CMP, URMACRERAT, LIPID, MG ####[place] [id number] [facility] Neutrophils/100 WBC (Bld) 68.3 % Normal . [facility] Comment on above: Order Comment: Reaso n for Exam Type 2 diabetes mellitus with other circulatory complication Performed By: #### T SH3 wRFLX, B12, CBC, CMP, URMACRERAT, LIPID, MG ####[place] [id number] [facility] NRBC% 0.1 /100{WBC} Normal 0-0.5 [facility] Comment on above: Order Comment: Reaso n for Exam Type 2 diabetes mellitus with other circulatory complication Performed By: #### T SH3 wRFLX, B12, CBC, CMP, URMACRERAT, LIPID, MG ####[place] [id number] [facility] Platelet mean volume (Bld) [Entitic vol] 7.2 fL Normal 6.6-10.1 [facility] Comment on above: Order Comment: Reaso n for Exam Type 2 diabetes mellitus with other circulatory complication Performed By: #### T SH3 wRFLX, B12, CBC, CMP, URMACRERAT, LIPID, MG ####[place] [address] [place] [address] [facility] Platelets (Bld) [#/Vol] 208 10*3/uL Normal 150-450 [facility] Comment on above: Order Comment: Reaso n for Exam Type 2 diabetes mellitus with other circulatory complication Performed By: #### T SH3 wRFLX, B12, CBC, CMP, URMACRERAT, LIPID, MG ####[place] [address] [place] [address] [facility] RBC (Bld) [#/Vol] 4.47 10*6/uL Normal 3.90-5.60 [facility] Comment on above: Order Comment: Reaso n for 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 Performed By: #### T SH3 wRFLX, B12, CBC, CMP, URMACRERAT, LIPID, MG ####[address] [address] [facility] WBC (Bld) [#/Vol] 6.4 10*3/uL Normal 4.1-10.[address] [facility] Comment on above: Order Comment: Reaso n for 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 Performed By: #### T SH3 wRFLX, B12, CBC, CMP, URMACRERAT, LIPID, MG ####[place] [address] [place] [address] [facility] Comprehensive Metabolic Pane anny 08-29-2022 Albumin [Mass/Vol] 4.3 g/dL Normal 3.5-5.[address] [facility] Comment on above: Order Comment: Reaso n for 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 Reason for Exam Restless legs Reason for Exam Acquired hypothyroidism Performed By: #### T SH3 wRFLX, B12, CBC, CMP, URMACRERAT, LIPID, MG ####[address] [address] [facility] Albumin/Globulin [Mass ratio] 1.7 {ratio} Normal [facility] Comment on above: Order Comment: Reaso n for 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 Reason for Exam Restless legs Reason for Exam Acquired hypothyroidism Performed By: #### T SH3 wRFLX, B12, CBC, CMP, URMACRERAT, LIPID, MG ####[facility] [id number] [place] [id number] [facility] ALP [Catalytic activity/Vol] 96 U/L Normal 34-104 [facility] Comment on above: Order Comment: Reaso n for 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 Reason for Exam Restless legs Reason for Exam Acquired hypothyroidism Performed By: #### T SH3 wRFLX, B12, CBC, CMP, URMACRERAT, LIPID, MG ####[place] [id number] [place] [id number] [facility] ALT [Catalytic activity/Vol] 19 U/L Normal 7-52 [facility] Comment on above: Order Comment: Reaso n for 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 Reason for Exam Restless legs Reason for Exam Acquired hypothyroidism Performed By: #### T SH3 wRFLX, B12, CBC, CMP, URMACRERAT, LIPID, MG ####[place] [id number] Anion gap [Moles/Vol] 13.7 mmol/L Normal 6.0-15.0 [facility] Comment on above: Order Comment: Reaso n for 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 Reason for Exam Restless legs Reason for Exam Acquired hypothyroidism Performed By: #### T SH3 wRFLX, B12, CBC, CMP, URMACRERAT, LIPID, MG ####[place] [id number] [place] [id number] [facility] AST [Catalytic activity/Vol] 25 U/L Normal 13-39 [facility] Comment on above: Order Comment: Reaso n for Exam Type 2 diabetes mellitus with other circulatory complication Reason for Exam Restless legs Reason for Exam Acquired hypothyroidism Performed By: #### T SH3 wRFLX, B12, CBC, CMP, URMACRERAT, LIPID, MG ####[place] [id number] [place] [id number] [facility] Bilirubin [Mass/Vol] 0.6 mg/dL Normal 0.3-1.0 [facility] Comment on above: Order Comment: Reaso n for Exam Type 2 diabetes mellitus with other circulatory complication Reason for Exam Restless legs Reason for Exam Acquired hypothyroidism Performed By: #### T SH3 wRFLX, B12, CBC, CMP, URMACRERAT, LIPID, MG ####[place] [id number] [place] [id number] [facility] Calcium [Mass/Vol] 10.6 mg/dL High 8.6-10.[address] [facility] Comment on above: Order Comment: Reaso n for 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 Reason for Exam Restless legs Reason for Exam Acquired hypothyroidism Performed By: #### T SH3 wRFLX, B12, CBC, CMP, URMACRERAT, LIPID, MG ####[place] [id number] [facility] Chloride [Moles/Vol] 102 mmol/L Normal 98-107 [facility] Comment on above: Order Comment: Reaso n for 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 Reason for Exam Restless legs Reason for Exam Acquired hypothyroidism Performed By: #### T SH3 wRFLX, B12, CBC, CMP, URMACRERAT, LIPID, MG ####[place] [address] [place] [address] [facility] CO2 [Moles/Vol] 28.0 mmol/L Normal 21.0-31.0 [facility] Comment on above: Order Comment: Reaso n for 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 Reason for Exam Restless legs Reason for Exam Acquired hypothyroidism Performed By: #### T SH3 wRFLX, B12, CBC, CMP, URMACRERAT, LIPID, MG ####[place] [id number] [facility] Creatinine [Mass/Vol] 1.21 mg/dL Normal 0.70-1.30 [facility] Comment on above: Order Comment: Reaso n for 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 Reason for Exam Restless legs Reason for Exam Acquired hypothyroidism Performed By: #### T SH3 wRFLX, B12, CBC, CMP, URMACRERAT, LIPID, MG ####[facility] [id number] [place] [address] [facility] GFR/1.73 sq M.predicted MDRD (S/P/Bld) [Vol rate/Area] mL/min/{1.73_m2} [facility] Comment on above: Order Comment: Reaso n for 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 Reason for Exam Restless legs Reason for Exam Acquired hypothyroidism Performed By: #### T SH3 wRFLX, B12, CBC, CMP, URMACRERAT, LIPID, MG ####[facility] [id number] [place] [address] [facility] Globulin (S) [Mass/Vol] 2.5 g/dL [facility] Comment on above: Order Comment: Reaso n for 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 Glucose of more than 200 mg/dL in a nonstressed, ambulatory subject supports the diagnosis of Diabetes Mellitus. 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 Reason for Exam Restless legs Reason for Exam Acquired hypothyroidism Performed By: #### T SH3 wRFLX, B12, CBC, CMP, URMACRERAT, LIPID, MG ####[place] [address] [place] [address] [facility] Protein [Mass/Vol] 6.8 g/dL Normal 6.4-8.[address] [facility] Comment on above: Order Comment: Reaso n for 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 Reason for Exam Restless legs Reason for Exam Acquired hypothyroidism Performed By: #### T SH3 wRFLX, B12, CBC, CMP, URMACRERAT, LIPID, MG ####[place] [id number] [place] [id number] [facility] Sodium [Moles/Vol] 140 mmol/L Normal 136-[address] [facility] Comment on above: Order Comment: Reaso n for 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 Reason for Exam Restless legs Reason for Exam Acquired hypothyroidism Performed By: #### T SH3 wRFLX, B12, CBC, CMP, URMACRERAT, LIPID, MG ####[place] [id number] Urea nitrogen [Mass/Vol] 30 mg/dL High 7-25 [facility] Comment on above: Order Comment: Reaso n for 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 Reason for Exam Restless legs Reason for Exam Acquired hypothyroidism Performed By: #### T SH3 wRFLX, B12, CBC, CMP, URMACRERAT, LIPID, MG ####[place] [id number] [place] [id number] [facility] Creatinine [Mass/volume] in Serum or PlasmaOrdered By: Geeta Dumont on 08-29-2022 Creatinine [Mass/Vol] 1.21 mg/dL 0.70-1.30 [facility] Creatinine [Mass/volume] in UrineOrdered By: Geeta Dumont on 08-29-2022 Creatinine (U) [Mass/Vol] 152.0 mg/dL 14.0-26.0 [facility] Eosinophils Auto (Bld) [#/Vo l]Ordered By: Geeta Dumont on 08-29-2022 Eosinophils (Bld) [#/Vol] 0.4 10*3/uL 0.0-0.45 [facility] Eosinophils/100 WBC Auto (Bl d)Ordered By: Geeta Dumont on 08-29-2022 Eosinophils/100 WBC (Bld) 6.7 % . [facility] Erythrocyte distribution wid th Auto (RBC) [Ratio]Ordered By: Geeta Dumont on 08-29-2022 Erythrocyte distribution width (RBC) [Ratio] 15.2 % 12.0-14.8 [facility] Globulin Calc (S) [Mass/Vol] Ordered By: Geeta Dumont on 08-29-2022 Globulin (S) [Mass/Vol] 2.5 g/dL [facility] Glucose [Mass/volume] in Ser um or PlasmaOrdered By: Geeta Dumont on 08-29-2022 Glucose [Mass/Vol] 158 mg/dL 70-[address] [facility] Comment on above: ADA recommended refe rence rangeRandom Glucose Reference Range is dependent on time and content of last meal. Glucose of more than 200 mg/dL in a nonstressed, ambulatory subject supports the diagnosis of Diabetes Mellitus. Hematocrit Auto (Bld) [Volum e fraction]Ordered By: Geeta Dumont on 08-29-2022 Hematocrit (Bld) [Volume fraction] 38.7 % 38.8-50.0 [facility] Hemoglobin [Mass/volume] in BloodOrdered By: Geeta Dumont on 08-29-2022 Hemoglobin (Bld) [Mass/Vol] 12.9 g/dL 13.0-17.0 [facility] Leukocytes [#/volume] correc martin for nucleated erythrocytes in Blood by Automated counOrdered By: Geeta Dumont on 08-29-2022 WBC corrected for nucl RBC Auto (Bld) [#/Vol] 6.4 10*3/uL 4.1-10.5 [facility] Lipid Panelon 08-29-2022 Cholesterol [Mass/Vol] 141 mg/dL Normal 140-200 [facility] Comment on above: Order Comment: Reaso n for 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 Reason for Exam Restless legs Reason for Exam Acquired hypothyroidism Result Comment: Chol less than 200 mg/dl low risk Chol 201-239 mg/dl borderline risk Chol 240 mg/dl and greater high risk Performed By: #### T SH3 wRFLX, B12, CBC, CMP, URMACRERAT, LIPID, MG ####[facility] [id number] [place] [id number] [facility] Cholesterol in HDL [Mass/Vol] 45 mg/dL Normal 23-92 [facility] Comment on above: Order Comment: Reaso n for 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 Reason for Exam Restless legs Reason for Exam Acquired hypothyroidism Result Comment: HDL CHOL ATP-III CLASSIFICATION Cardiovascular Risk HDL > or equal to 60 mg/dL LOW HDL < 40 mg/dL HIGH Performed By: #### T SH3 wRFLX, B12, CBC, CMP, URMACRERAT, LIPID, MG ####[place] [id number] Cholesterol.total/Cho lesterol in HDL [Mass ratio] 3.1 {ratio} Normal <5.0 [facility] Comment on above: Order Comment: Reaso n for 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 Reason for Exam Restless legs Reason for Exam Acquired hypothyroidism Performed By: #### T SH3 wRFLX, B12, CBC, CMP, URMACRERAT, LIPID, MG ####[place] [id number] [place] [id number] [facility] LDL Cholesterol,Calculate d 77 mg/dL Normal 0-100 [facility] Comment on above: Order Comment: Reaso [...] wRFLX, B12, CBC, CMP, URMACRERAT, LIPID, MG ####[place] [id number] [place] [id number] [facility] Triglyceride w/Reflex 97 mg/dL Normal 0-149 [facility] Comment on above: Order Comment: Reaso [...] wRFLX, B12, CBC, CMP, URMACRERAT, LIPID, MG ####[facility] [id number] VLDL CHOLESTEROL 19 mg/dL Normal [facility] Comment on above: Order Comment: Reaso n for 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 [facility] MCH Auto (RBC) [Entitic mass ]Ordered By: Geeta Dumont on 08-29-2022 MCH (RBC) [Entitic mass] 28.8 pg 27.5-35.2 [facility] MCHC Auto (RBC) [Mass/Vol]Or dered By: Geeta Dumont on 08-29-2022 MCHC (RBC) [Mass/Vol] 33.3 g/dL 32.5-35.6 [facility] MCV Auto (RBC) [Entitic vol] Ordered By: Geeta Dumont on 08-29-2022 MCV (RBC) [Entitic vol] 86.6 fL 83.5-101 [facility] Magnesiumon 08-29-2022 Magnesium [Mass/Vol] 1.6 mg/dL Low 1.9-2.7 [facility] Comment on above: Order Comment: Reaso n for 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 Reason for Exam Restless legs Reason for Exam Acquired hypothyroidism Performed By: #### T SH3 wRFLX, B12, CBC, CMP, URMACRERAT, LIPID, MG ####[place] [address] [place] [address] [facility] Magnesium [Mass/volume] in S [place] or PlasmaOrdered By: Geeta Dumont on 08-29-2022 Magnesium [Mass/Vol] 1.6 mg/dL 1.9-2.7 [facility] MicroAlb Creat Ratio,Uon Albumin DL <= 20 mg/L (U) [Mass/Vol] 6.5 mg/dL High 0.0-1.8 [facility] Comment on above: Order Comment: Reaso n for Exam Type 2 diabetes mellitus with other circulatory complication Performed By: #### T SH3 wRFLX, B12, CBC, CMP, URMACRERAT, LIPID, MG ####[place] [address] [place] [address] [facility] Creatinine, Urine (Random) 152.0 mg/dL High 14.0-26.0 [facility] Comment on above: Order Comment: Reaso n for Exam Type 2 diabetes mellitus with other circulatory complication Performed By: #### T SH3 wRFLX, B12, CBC, CMP, URMACRERAT, LIPID, MG ####[place] [address] [place] [address] [facility] Microalbumin/Creatini ne Ratio 42.0 mg/g High 0.0-30.0 [facility] Comment on above: Order Comment: Reaso n for 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 Greater than 300 mg/g is consistent with clinical nephropathy. (Am. J. Kidney Disease 1995, 25:107)PERFORMED BY:[address] [place], [place] [phone] MEDICAL DIRECTORAPRIL VEGA M.D. Performed By: #### T SH3 wRFLX, B12, CBC, CMP, URMACRERAT, LIPID, MG ####[facility] [id number] [place] [id number] [facility] Microalbumin [Mass/volume] i n UrineOrdered By: Geeta Dumont on 08-29-2022 Albumin DL <= 20 mg/L (U) [Mass/Vol] 6.5 mg/dL 0.0-1.8 [facility] Monocytes Auto (Bld) [#/Vol] Ordered By: Geeta Dumont on 08-29-2022 Monocytes (Bld) [#/Vol] 0.6 10*3/uL 0.0-0.8 [facility] Monocytes/100 WBC Auto (Bld) Ordered By: Geeta Dumont on 08-29-2022 Monocytes/100 WBC (Bld) 9.9 % . [facility] Neutrophils Auto (Bld) [#/Vo l]Ordered By: Geeta Dumont on 08-29-2022 Neutrophils (Bld) [#/Vol] 4.4 10*3/uL 1.8-7.7 [facility] Neutrophils/100 WBC Auto (Bl d)Ordered By: Geeta Dumont on 08-29-2022 Neutrophils/100 WBC (Bld) 68.3 % . [facility] No Panel InformationOrdered By: Geeta Dumont on 08-29-2022 Estimated GFR (CKD-EPI) > 60.0 mL/Min [facility] Creatinine Clearance (Chem N/A [facility] Nucleated erythrocytes [Pres ence] in Blood by Automated countOrdered By: Geeta Dumont on 08-29-2022 Nucleated RBC Auto Ql (Bld) 0.1 /100{WBC} 0-0.5 [facility] Platelet mean volume Auto (B ld) [Entitic vol]Ordered By: Geeta Dumont on 08-29-2022 Platelet mean volume (Bld) [Entitic vol] 7.2 fL 6.6-10.1 [facility] Platelets Auto (Bld) [#/Vol] Ordered By: Geeta Dumont on 08-29-2022 Platelets (Bld) [#/Vol] 208 10*3/uL 150-450 [facility] Potassium [Moles/volume] in Serum or PlasmaOrdered By: Geeta Dumont on 08-29-2022 Potassium [Moles/Vol] 3.7 mmol/L 3.5-5.1 [facility] Protein [Mass/volume] in Ser um or PlasmaOrdered By: Geeta Dumont on 08-29-2022 Protein [Mass/Vol] 6.8 g/dL 6.4-8.[address] [facility] RBC Auto (Bld) [#/Vol]Ordere d By: Geeta Dumont on 08-29-2022 RBC (Bld) [#/Vol] 4.47 10*6/uL 3.90-5.60 [facility] Serum or plasma albumin/glob ulin mass ratioOrdered By: Geeta Dumont on 08-29-2022 Albumin/Globulin [Mass ratio] 1.7 {ratio} [facility] Serum or plasma anion gap de terminationOrdered By: Geeta Dumont on 08-29-2022 Anion gap [Moles/Vol] 13.7 mmol/L 6.0-15.0 [facility] Serum or plasma high density lipoprotein (HDL) cholesterol measurementOrdered By: Geeta Dumont on 08-29-2022 Cholesterol in HDL [Mass/Vol] 45 mg/dL 23-92 [facility] Comment on above: HDL CHOL ATP-III CLA SSIFICATION Cardiovascular RiskHDL > or equal to 60 mg/dL LOWHDL < 40 mg/dL HIGH Serum or plasma total choles terol/high density lipoprotein (HDL) cholesterol mass ratOrdered By: Geeta Dumont on 08-29-2022 Cholesterol.total/Cho lesterol in HDL [Mass ratio] 3.1 {ratio} <5.0 [facility] Sodium [Moles/volume] in Ser um or PlasmaOrdered By: Geeta Dumont on 08-29-2022 Sodium [Moles/Vol] 140 mmol/L 136-[address] [facility] Thyroid Stim Hormone w/Rflxo n 08-29-2022 Thyroid Stim Hormone w/Rflx 4.34 u[iU]/mL Normal 0.45-5.33 [facility] Comment on above: Order Comment: Reaso n for 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 Performed By: #### T SH3 wRFLX, B12, CBC, CMP, URMACRERAT, LIPID, MG ####[facility] [place] [address] [facility] Thyrotropin [Units/volume] i n Serum or PlasmaOrdered By: Geeta Dumont on 08-29-2022 TSH Qn 4.34 m[IU]/L 0.45-5.33 [facility] Triglyceride [Mass/volume] i n Serum or PlasmaOrdered By: Geeta Dumont on 08-29-2022 Triglyceride [Mass/Vol] 97 mg/dL 0-149 [facility] Comment on above: TRIG ATP III CLASSIF ICATIONTRIG less than 150 mg/dL NormalTRIG 150-199 mg/dL Borderline highTRIG 200-500 mg/dL High TRIG greater than 500 mg/dL Very highStandard traceable to the Center for Disease Conrtrol and Prevention (CDC) test method. Urea nitrogen [Mass/volume] in Serum or PlasmaOrdered By: Geeta Dumont on 08-29-2022 Urea nitrogen [Mass/Vol] 30 mg/dL 7-25 [facility] Urine microalbumin/creatinin e mass ratioOrdered By: Geeta Dumont on 08-29-2022 Albumin/Creatinine DL <= 20 mg/L (U) [Mass ratio] 42.0 mg/g 0.0-30.0 [facility] Comment on above: 30-300 mg/g indicate s an increased risk for diabetic nephropathy. Greater than 300 mg/g is consistent with clinical nephropathy. (Am. J. Kidney Disease 1995, 25:107) Vitamin B12on 08-29-2022 Cobalamin (Vitamin B12) [Mass/Vol] 304 pg/mL Normal 180-914 [facility] Comment on above: Order Comment: Reaso n for Exam Type 2 diabetes mellitus with other circulatory complication Reason for Exam Restless legs Reason for Exam Acquired hypothyroidism Performed By: #### T SH3 wRFLX, B12, CBC, CMP, URMACRERAT, LIPID, MG ####[facility] [address] [place] [address] [facility] Vitamin B12 ser/plasOrdered By: Geeta Dumont on 08-29-2022 Cobalamin (Vitamin B12) [Mass/Vol] 304 pg/mL 180-914 [facility] WBC Auto (Bld) [#/Vol]Ordere d By: Geeta Dumont on 08-29-2022 WBC (Bld) [#/Vol] 6.4 10*3/uL 4.1-10.[address] [facility] XR chest 2V*on 08-28-2022 XR chest 2V* Normal [facility] XR chest 2V* [facility] [employer] Other XR chest 2V* [facility] [place] [employer] Other XR chest 2V* [facility] [facility] [employer] Other XR chest 2V* [place] [address] [facility] [employer] Other XR chest 2V* XRay Report [employer] Other XR chest 2V* Signed [employer] Other XR chest 2V* Patient: Samantha Potter MR#: [id number] [employer] Other XR chest 2V* 357 [employer] Other XR chest 2V* : 1955 Acct:[id number] [employer] Other XR chest 2V* Age/Sex: 67 / M ADM Date: 08/28/22 [employer] Other XR chest 2V* Loc: XC Room: Type : REG CLI [employer] Other XR chest 2V* Attending Dr: Jorje Dumont APRN, CLEAN UP WORKER-C [employer] Other XR chest 2V* Copies to: Geeta Dumont APRN, ISABELLA [employer] Other XR chest 2V* Ordering Provider: Geeta Dumont APRN, ISABELLA [employer] Other XR chest 2V* Date of Service: 08/28/22 [employer] Other XR chest 2V* [id number]) XR/XR chest 2V*: Other congestive heart failure;Shortness of breath [employer] Other XR chest 2V* Plain film chest 2 view [employer] Other XR chest 2V* HISTORY: Shortness o f breath [employer] Other XR chest 2V* COMPARISON: 03/13/2019 [employer] Other XR chest 2V* FINDINGS: [employer] Other XR chest 2V* SUPPORT DEVICES: None N [employer] Other XR chest 2V* POSTSURGICAL CHANGES: None [employer] Other XR chest 2V* HEART: Within normal limits [employer] Other XR chest 2V* PULMONARY SALOME: With in normal limits [employer] Other XR chest 2V* MEDIASTINUM: Unremarkable [employer] Other XR chest 2V* LUNGS AND PLEURA: Si milar basilar parenchymal densities identified. Consider atelectasis/scarring. [employer] Other XR chest 2V* No new consolidation , pleural effusion or pneumothorax. [employer] Other XR chest 2V* BONY STRUCTURES: Intact [employer] Other XR chest 2V* ADDITIONAL FINDINGS None [employer] Other XR chest 2V* X R/XR chest 2V* [employer] Other XR chest 2V* IMPRESSION: Stable b asilar parenchymal densities suggesting atelectasis/scarring. [employer] Other XR chest 2V* Impression dictated by: Kwasi Tomlin M.D.08/28/2022 12:11 PM [employer] Other XR chest 2V* Dictation Location: [place] [address] [employer] Other XR chest 2V* Transcribed By: PWS 08/28/22 1211 [employer] Other XR chest 2V* Dictated By: Pasha Tomlin DO 08/28/22 1209 [employer] Other XR chest 2V* Signed By: [employer] Other XR chest 2V* 08/28/22 1211 [place] Other Echocardiogramon 07-02-[address], [address] [place] [address] TRANSTHORACIC ECHOCARDIOGRAM REPORT Patient Name: SANDRA POTTER Matthew Physician: [id number] Deanne Gaxiola MD Study Date: 07/02/2022 Referring Physician: VIRIDIANA BURGESS MRN/PID: [id number] PCP: Teri Aragon Accession/Order#: [id number] Department Location: [facility] Date of : 1955 Fellow: Gender: M Nurse: Ede Morton RN Admit Date: Back Joiner: Marichuy Duarte RD, RVT Height: 180.34 cm CC Report to: Weight: 108.41 kg Study Type: Echocardiogram BSA: 2.27 m2 Diagnosis/ICD: I42.1-Obstructive hypertrophic cardiomyopathy; Z95.818-Presence of other cardiac implants and grafts Indication: Chronic Atrial Fibrillation, CAD, COPD, Diabetes, HTN, Hyperlipidemia, PTCA-2007, Former Smoker, Obesity, Large B-Cell Lymphoma Procedure/CPT: Echo Complete w Full Doppler-[id number] Study Detail: The following Echo studies were [...] 1.0 m/s (0.6-0.9m/s) PV Max P.1 mmHg [id number] Deanne Gaxiola MD Electronically signed on 07/02/2022 at 5:06:32 PM Final Normal [facility] XR lumbar spine AP/LAT/FLX/E XTon 04-26-2022 XR lumbar spine AP/LAT/FLX/EXT [facility] [employer] Other XR lumbar spine AP/LAT/FLX/EXT [facility] [employer] Other XR lumbar spine AP/LAT/FLX/EXT [address] [place] [address] [employer] Other XR lumbar spine AP/LAT/FLX/[place] [address] [employer] Other XR lumbar spine AP/LAT/FLX/EXT XRay Report [employer] Other XR lumbar spine AP/LAT/FLX/EXT Signed [employer] Other XR lumbar spine AP/LAT/FLX/EXT Patient: Sandra Potter MR#: [id number] [employer] Other XR lumbar spine AP/LAT/FLX/EXT 357 [employer] Other XR lumbar spine AP/LAT/FLX/EXT : 1955 Acct:[id number] [employer] Other XR lumbar spine AP/LAT/FLX/EXT Age/Sex: 66 / M ADM Date: 04/26/22 [employer] Other XR lumbar spine AP/LAT/FLX/EXT Loc: SOXD Room: Type: REG CLI [employer] Other XR lumbar spine AP/LAT/FLX/EXT Attending Dr: Lavon Sandoval MD [employer] Other XR lumbar spine AP/LAT/FLX/EXT Copies to: Lavon Sandoval MD [employer] Other XR lumbar spine AP/LAT/FLX/EXT Ordering Provider: Lavon Sandoval MD [employer] Other XR lumbar spine AP/LAT/FLX/EXT Date of Service: 04/26/22 [employer] Other XR lumbar spine AP/LAT/FLX/EXT XR/XR lumbar spine AP/LAT/FLX/EXT: Osteoarthritis of lumbosacral spine [employer] Other XR lumbar spine AP/LAT/FLX/EXT without myelopathy [employer] Other XR lumbar spine AP/LAT/FLX/EXT XR lumbar spine AP/LAT/FLX/EXT 04/26/2022 10:27 AM [employer] Other XR lumbar spine AP/LAT/FLX/EXT SIGNS AND SYMPTOMS: Low back pain worse with flexion [employer] Other XR lumbar spine AP/LAT/FLX/EXT PROTOCOLS: Frontal, lateral, and flexion-extension views of the lumbar spine [employer] Other XR lumbar spine AP/LAT/FLX/EXT COMPARISON: None [employer] Other XR lumbar spine AP/LAT/FLX/EXT FINDINGS: [employer] Other XR lumbar spine AP/LAT/FLX/EXT There is a dextro convex curvature of the thoracolumbar spine. There is severe intervertebral disc [employer] Other XR lumbar spine AP/LAT/FLX/EXT height loss throughout the thoracolumbar spine sparing the L3-L4 and L4-L5 levels. Facet [employer] Other XR lumbar spine AP/LAT/FLX/EXT degenerative changes are present, greatest at L4-5. The sacrum and sacroiliac joints are normal. [employer] Other XR lumbar spine AP/LAT/FLX/EXT Atherosclerotic changes are noted in the abdominal aorta. [employer] Other XR lumbar spine AP/LAT/FLX/EXT XR/XR lumbar spine AP/LAT/FLX/EXT [employer] Other XR lumbar spine AP/LAT/FLX/EXT IMPRESSION: [employer] Other XR lumbar spine AP/LAT/FLX/EXT There is a dextro convex curvature of thoracolumbar spine with severe multilevel degenerative [employer] Other XR lumbar spine AP/LAT/FLX/EXT change. [employer] Other XR lumbar spine AP/LAT/FLX/EXT No fracture or subluxation. [employer] Other XR lumbar spine AP/LAT/FLX/EXT No pathologic movement on flexion or extension. [employer] Other XR lumbar spine AP/LAT/FLX/EXT Impression dictated by: Juliano Conteh M.D.04/26/2022 4:15 PM [employer] Other XR lumbar spine AP/LAT/FLX/EXT Dictation Location: [place] [address] [employer] Other XR lumbar spine AP/LAT/FLX/EXT Transcribed By: CHAPINCITO 04/26/22 [facility] [employer] Other XR lumbar spine AP/LAT/FLX/EXT Dictated By: Juliano Conteh II, MD 04/26/22 [facility] [employer] Other XR lumbar spine AP/LAT/FLX/EXT Signed By: [employer] Other XR lumbar spine AP/LAT/FLX/EXT 04/26/22 [facility] [employer] Other Glucose Glucometer (BldC) [M ass/Vol]Ordered By: Arron Valverde on 04-03-2022 Glucose [Mass/Vol] 114 mg/dL [facility] Comment on above: Random Glucose Refer ence Range is dependent on time and content of last meal. Glucose of more than 200 mg/dL in a nonstressed, ambulatory subject supports the diagnosis of Diabetes Mellitus. A1C HEMOGLOBINon 04-02-2022 HbA1c (Bld) [Mass fraction] 6.7 % [employer] Other HbA1c (Bld) [Mass fraction]o n 04-02-2022 A1C HEMOGLOBIN [facility] [employer] Other Albumin [Mass/volume] in Ser um or PlasmaOrdered By: Stephanie Burgess on 03-28-2022 Albumin [Mass/Vol] 3.9 g/dL 3.2-5.[address] [facility] Basophils Auto (Bld) [#/Vol] Ordered By: Joana Farooq on 03-28-2022 Basophils (Bld) [#/Vol] 0.0 10*3/uL 0.0-0.2 [facility] Basophils/100 WBC Auto (Bld) Ordered By: Joana Farooq on 03-28-2022 Basophils/100 WBC (Bld) 0.4 % . [facility] Cholesterol [Mass/volume] in Serum or PlasmaOrdered By: Stephanie Burgess on 03-28-2022 Cholesterol [Mass/Vol] 147 mg/dL 140-200 [facility] Comment on above: Chol less than 200 m g/dl low riskChol 201-239 mg/dl borderline riskChol 240 mg/dl and greater high risk Cholesterol in LDL Calc [Mas s/Vol]Ordered By: Stephanie Burgess on 03-28-2022 Cholesterol in LDL [Mass/Vol] 85 mg/dL 0-100 [facility] Comment on above: LDL ATP III CLASSIFI CATIONLDL less than 100 mg/dL OptimalLDL 100-129 mg/dL Near or above optimalLDL 130-159 mg/dL Borderline highLDL 160-189 mg/dL HighLDL greater than 189 mg/dL Very high Cholesterol in VLDL Calc [Ma ss/Vol]Ordered By: Stephanie Burgess on 03-28-2022 Cholesterol in VLDL [Mass/Vol] 16 mg/dL [facility] Creatinine and Glomerular fi ltration rate.predicted panel (S/P/Bld)Ordered By: Stephanie Burgess on 03-28-2022 Creatinine [Mass/Vol] 1.34 mg/dL 0.64-1.27 [facility] Eosinophils Auto (Bld) [#/Vo l]Ordered By: Joana Farooq on 03-28-2022 Eosinophils (Bld) [#/Vol] 0.5 10*3/uL 0.0-0.45 [facility] Eosinophils/100 WBC Auto (Bl d)Ordered By: Joana Farooq on 03-28-2022 Eosinophils/100 WBC (Bld) 6.9 % . [facility] Erythrocyte distribution wid th Auto (RBC) [Ratio]Ordered By: Joana Farooq on 03-28-2022 Erythrocyte distribution width (RBC) [Ratio] 16.4 % 12.0-14.8 [facility] Estimated glomerular filtrat ion rate (GFR) non- AmericanOrdered By: Stephanie Burgess on 03-28-2022 GFR/1.73 sq M.predicted among non-blacks MDRD (S/P/Bld) [Vol rate/Area] 54 mL/Min [facility] Globulin Calc (S) [Mass/Vol] Ordered By: Stephanie Burgess on 03-28-2022 Globulin (S) [Mass/Vol] 3.0 g/dL [facility] Hematocrit Auto (Bld) [Volum e fraction]Ordered By: Joana Farooq on 03-28-2022 Hematocrit (Bld) [Volume fraction] 41.2 % 38.8-50.0 [facility] Hemoglobin [Mass/volume] in BloodOrdered By: Joana Farooq on 03-28-2022 Hemoglobin (Bld) [Mass/Vol] 13.1 g/dL 13.0-17.0 [facility] Laboratory - Chemistry and C hemistry - challengeon 03-28-2022 Cholesterol [Mass/Vol] 147\S\147 Normal 140-200 [facility] [address] DO Work Phone: Comment on above: Chol less than 200 m g/dl low risk Chol 201-239 mg/dl borderline risk Chol 240 mg/dl and greater high risk Cholesterol in LDL [Mass/Vol] 85\S\85 Normal 0-100 [facility] 250 DO Work Phone: Comment on [...] RBC Auto (Bld) [#/Vol] 6.7 10*3/uL 4.1-10.5 [facility] Lymphocytes Auto (Bld) [#/Vo l]Ordered By: Joana Farooq on 03-28-2022 Lymphocytes (Bld) [#/Vol] 0.9 10*3/uL 1.00-4.8 [facility] Lymphocytes/100 WBC Auto (Bl d)Ordered By: Joana Farooq on 03-28-2022 Lymphocytes/100 WBC (Bld) 13.0 % . [facility] MCH Auto (RBC) [Entitic mass ]Ordered By: Joana Farooq on 03-28-2022 MCH (RBC) [Entitic mass] 27.1 pg 27.5-35.2 [facility] MCHC Auto (RBC) [Mass/Vol]Or dered By: Joana Farooq on 03-28-2022 MCHC (RBC) [Mass/Vol] 31.7 g/dL 32.5-35.6 [facility] MCV Auto (RBC) [Entitic vol] Ordered By: Joana Farooq on 03-28-2022 MCV (RBC) [Entitic vol] 85.4 fL 83.5-101 [facility] Monocytes Auto (Bld) [#/Vol] Ordered By: Joana Farooq on 03-28-2022 Monocytes (Bld) [#/Vol] 0.8 10*3/uL 0.0-0.8 [facility] Monocytes/100 WBC Auto (Bld) Ordered By: Joana Farooq on 03-28-2022 Monocytes/100 WBC (Bld) 11.6 % . [facility] Neutrophils Auto (Bld) [#/Vo l]Ordered By: Joana Farooq on 03-28-2022 Neutrophils (Bld) [#/Vol] 4.6 10*3/uL 1.8-7.7 [facility] Neutrophils/100 WBC Auto (Bl d)Ordered By: Joana Farooq on 03-28-2022 Neutrophils/100 WBC (Bld) 68.1 % . [facility] No Panel Informationon 03-28 3.3\S\3.3 Normal <5.0 [facility] DO Work Phone: Comment on above: PERFORMED BY:[facility] [place], [place] [id number] MEDICAL DIRECTORAPRIL VEGA M.D. 16\S\16 Normal [facility] [address] DO Work Phone: 84\S\84 Normal 35-149 [facility] DO Work Phone: Comment on above: TRIG ATP III CLASSIF ICATION TRIG less than 150 mg/dL Normal TRIG 150-199 mg/dL Borderline high TRIG 200-500 mg/dL High TRIG greater than 500 mg/dL Very high Standard traceable to the Center for Disease Conrtrol and Prevention (CDC) test method. 45\S\45 Normal 29-71 [facility] 250 DO Work Phone: Comment on above: HDL CHOL ATP-III CLA SSIFICATION Cardiovascular Risk HDL > or equal to 60 mg/dL LOW HDL < 40 mg/dL HIGH 6.9\S\6.9 Normal 6.1-7.9 [facility] DO Work Phone: 10.5\S\10.5 above high threshold 8.2-10.2 [facility] DO Work Phone: 13.1\S\13.1 Normal 6.0-15.0 [facility] DO Work Phone: 26.6\S\26.6 Normal 22.0-30.0 [facility] DO Work Phone: 101\S\101 Normal 95-114 [facility] DO Work Phone: [phone] 4.7\S\4.7 Normal 3.5-5.1 [facility] DO Work Phone: 18\S\18 Normal 10-60 [facility] 250 DO Work Phone: [phone] 24\S\24 above high threshold 9-23 [facility] DO Work Phone: 0.7\S\0.7 Normal 0.3-1.2 [facility] 250 DO Work Phone: [phone] 1.3\S\1.3 Normal [facility] DO Work Phone: 3.0\S\3.0 Normal [facility] DO Work Phone: [phone] 3.9\S\3.9 Normal 3.2-5.5 [facility] DO Work Phone: [phone] 99\S\99 above high threshold 32-92 [facility] DO Work Phone: [phone] Comment on above: PERFORMED BY:[place] [address] [address] [place], [place] [phone] MEDICAL DIRECTORAPRIL VEGA M.D. 136\S\136 Normal 136-146 [facility] [address] DO Work Phone: [phone] > 60 Normal [facility] DO Work Phone: [phone] Comment on above: GFR estimated refere nce range: According to KDOQI guidelines, <60 ml/min/1.73m2 is sufficient to diagnose a patient with chronic kidney disease. 54\S\54 Normal [facility] 250 DO Work Phone: [phone] 1.34\S\1.34 above high threshold 0.64-1.[address] [facility] 250 DO Work Phone: 133\S\133 above high threshold 70-100 [facility] Work Phone: Comment on above: Random Glucose Refer ence Range is dependent on time and content of last meal. Glucose of more than 200 mg/dL in a nonstressed, ambulatory subject supports the diagnosis of Diabetes Mellitus. ADA recommended reference range No Panel InformationOrdered By: Stephanie Burgess on 03-28-2022 Estimated GFR () > 60 mL/Min [facility] Comment on above: GFR estimated refere nce range: According to KDOQI guidelines, <60 ml/min/1.73m2 is sufficient to diagnose a patient with chronic kidney disease. Pharmacy Creatinine Clearance (Chem N/A [facility] Nucleated erythrocytes [Pres ence] in Blood by Automated countOrdered By: Joana Farooq on 03-28-2022 Nucleated RBC Auto Ql (Bld) 0.1 /100{WBC} 0-0.5 [facility] Platelet mean volume Auto (B ld) [Entitic vol]Ordered By: Joana Farooq on 03-28-2022 Platelet mean volume (Bld) [Entitic vol] 7.2 fL 6.6-10.1 [facility] Platelets Auto (Bld) [#/Vol] Ordered By: Joana Farooq on 03-28-2022 Platelets (Bld) [#/Vol] 207 10*3/uL 150-450 [facility] Protein [Mass/volume] in Ser um or PlasmaOrdered By: Stephanie Burgess on 03-28-2022 Protein [Mass/Vol] 6.9 g/dL 6.1-7.[address] [facility] RBC Auto (Bld) [#/Vol]Ordere d By: Joana Faoroq on 03-28-2022 RBC (Bld) [#/Vol] 4.83 10*6/uL 3.90-5.60 [facility] Serum or plasma alanine bartholomew otransferase measurement without P-5'-P (enzymatic activiOrdered By: Stephanie Burgess on 03-28-2022 ALT No additional P-5'-P [Catalytic activity/Vol] 18 U/L 10-60 [facility] Serum or plasma albumin/glob ulin mass ratioOrdered By: Stephanie Burgess on 03-28-2022 Albumin/Globulin [Mass ratio] 1.3 {ratio} [facility] Serum or plasma alkaline dorothea sphatase measurement (enzymatic activity/volume)Ordered By: Stephanie Burgess on 03-28-2022 ALP [Catalytic activity/Vol] 99 U/L 32-92 [facility] Serum or plasma anion gap de terminationOrdered By: Stephanie Burgess on 03-28-2022 Anion gap [Moles/Vol] 13.1 mmol/L 6.0-15.0 [facility] Serum or plasma aspartate am inotransferase measurement (enzymatic activity/volume)Ordered By: Stephanie Burgess on 03-28-2022 AST [Catalytic activity/Vol] 24 U/L 10-42 [facility] Serum or plasma calcium victor m urement (mass/volume)Ordered By: Stephanie Burgess on 03-28-2022 Calcium [Mass/Vol] 10.5 mg/dL 8.2-10.[address] [facility] Serum or plasma chloride meenakshi surement (moles/volume)Ordered By: Stephanie Burgess on 03-28-2022 Chloride [Moles/Vol] 101 mmol/L 95-114 [facility] Serum or plasma glucose victor m urement (mass/volume)Ordered By: Stephanie Burgess on 03-28-2022 Glucose [Mass/Vol] 133 mg/dL 70-[address] [facility] Comment on above: ADA recommended refe rence rangeRandom Glucose Reference Range is dependent on time and content of last meal. Glucose of more than 200 mg/dL in a nonstressed, ambulatory subject supports the diagnosis of Diabetes Mellitus. Serum or plasma high density lipoprotein (HDL) cholesterol measurementOrdered By: Stephanie Burgess on 03-28-2022 Cholesterol in HDL [Mass/Vol] 45 mg/dL 29-71 [facility] Comment on above: HDL CHOL ATP-III CLA SSIFICATION Cardiovascular RiskHDL > or equal to 60 mg/dL LOWHDL < 40 mg/dL HIGH Serum or plasma potassium me asurement (moles/volume)Ordered By: Stephanie Burgess on 03-28-2022 Potassium [Moles/Vol] 4.7 mmol/L 3.5-5.1 [facility] Serum or plasma sodium measu rement (moles/volume)Ordered By: Stephanie Burgess on 03-28-2022 Sodium [Moles/Vol] 136 mmol/L 136-[address] [facility] Serum or plasma total biliru bin measurement (mass/volume)Ordered By: Stephanie Burgess on 03-28-2022 Bilirubin [Mass/Vol] 0.7 mg/dL 0.3-1.2 [facility] Serum or plasma total carbon dioxide measurement (moles/volume)Ordered By: Stephanie Burgess on 03-28-2022 CO2 [Moles/Vol] 26.6 mmol/L 22.0-30.0 [facility] Serum or plasma total choles terol/high density lipoprotein (HDL) cholesterol mass ratOrdered By: Stephanie Burgess on 03-28-2022 Cholesterol.total/Cho lesterol in HDL [Mass ratio] 3.3 {ratio} <5.0 [facility] Serum or plasma urea nitroge n measurement (mass/volume)Ordered By: Stephanie Burgess on 03-28-2022 Urea nitrogen [Mass/Vol] 24 mg/dL 9-23 [facility] Serum or plasma uric acid me asurement (mass/volume)Ordered By: Joana Farooq on 03-28-2022 Urate [Mass/Vol] 5.7 mg/dL 2.6-7.2 [facility] Triglyceride [Mass/volume] i n Serum or PlasmaOrdered By: Stephanie Burgess on 03-28-2022 Triglyceride [Mass/Vol] 84 mg/dL 35-149 [facility] Comment on above: TRIG ATP III CLASSIF ICATIONTRIG less than 150 mg/dL NormalTRIG 150-199 mg/dL Borderline highTRIG 200-500 mg/dL High TRIG greater than 500 mg/dL Very highStandard traceable to the Center for Disease Conrtrol and Prevention (CDC) test method. 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) Atherosclerosis of [place] coronary artery without angina pectoris (414.01) (I25.10) Status post angioplasty (V45.89) (Z98.62) Presence of Watchman left atrial appendage closure device (V45.09) (Z95.818) High risk medication use (V58.69) (Z79.899) Former smoker (V15.82) (Z87.891) Quit in 2006 Class 1 obesity with body mass index (BMI) of 33.0 to 33.9 in adult (278.00,V85.33) (E66.9,Z68.33) Orders Atherosclerosis of [place] coronary artery without angina pectoris, Diabetes mellitus [...] Echocardiogram; Status:Hold For - Scheduling,Retrospective Authorization; Requested for:[id number]; SocHx: Former smoker Tobacco Use Screening; Status:Complete; [...] Oral TabletTAK (more content not included)... Normal [facility] Tobacco Screening.on 022 Tobacco use status HS b) No [facility] 250 DO Work Phone: Coding Summary.on 01-02-2022 Coding Summary. CD:[id number] Gh0bWw +PGhlYWQ+UP9VZAIwS75eoTNug V5MO0pMFX7SGEKLNWSTBZ8VNS5 xxCA4INvxI4YdhtUo YjwilNHtQH73YVc7BID6nDpmFO fdaW3drJSiH7j1BvKvEK75vJ66 ZSltQGDhJwC2GfIykhfbnMBx Z7ruFmRwkMHkSdz+PHRhYmxlIH xdIMAyVJznVOXyWrCogZnwUP2o Cn5kIOCeZPOanBdxsYWeFjTf r2yvAXTnSQqbYS3lvSvxK8JkeF T7SFKei7o5Eh23pBS+PHRkIHN0 jUblLVuip114ZeTbi8gfVMJ4 iTCcGAspHVG4L60fy4K7BXZmTK SuCRZ7oBS7cB8iiRmkwjbaK1Ir eYPbPpG6EGU0gCQswM9uhDhm scncfV9hQat+T23CKG6YKQKWLN 2PQvb6R0NjMvkgmQP+OC68SAPj LG48tIFxlIXus3iqhBc3DaVc DREpBFL9iEtsRSmtc5UcUCLjT6 5gnIKdu8A3EDMsvCbyqPIzXnYx uWL9yX0rMAkcjmmkc7xvcdly Xhzxd6copy03pU68A13pDAlzDI VyIQQ5XGJbFMRtwJfrvd6soI4o Ii8+ZVplz0iwt5araIn1OwNg DWLtjxUzuUetZPA0w1OgWn02H1 WzoVubb2DzVyg3pu17qKTaf9Z2 oGD3YBdzSOXxrO8mIJijEfF5 TJYuOyPknK08hIPiBWevPs3tnC kvcFxzAD7vTAWhtkaaYLXcjP9z QTUxtRJuyHhuDL4uPOGvupzy l034RnEuMXY6ZMOugQQsC3AtlW 9jRiGdQATyEGXeB3MkuMWcFAdj R325POlgFfO3ZVHdxgGmQ7Kc MPPpxUrjCqU7n6S4Aj5Nb2Skak zeQUC1TVaxINIxBvA7VzPxUaO1 R1FxWvb9MOKveItlWY6jO3Kg FYWawhthcdjkvUN7AAOyCXPifX 91iTSoUTblGv8su9Q7m601RXZa KQBquM55Rs5mwUeqRSPpfMES iJ5qpopno6zmvbysQyYhYUYnDK r3RAs3PAIinUrtGyDgSAY0QfB0 TYT6yHSjjA1uwRnqgreodU3j Oyc+S03mpW4nMTP0MOL2viivYR OkboXmQS83LD22V5OnOeeigRKq bGU+FJZplnRllQynHD0cJuDa d8ufc1FzQNyaK6LeNSGiDWwiNj q3IZPcGWP5vQC7pO8dVWCsYVzq z2Z8cFX3N3VuxoAulf3so6id KUCtEAkfM18mgEOju1L1JLAryY G5ULZqdGmzJyHvtZ37Wmf+PGNv oMdwv4VsUhcqo9sml4wfaNo0 VhSiZAOxtgKrmJwfGPC9i5McOo 52X34hWDwxNWDmVVMiHWTqFFYd tVqfyw1lsT4pOt3+PGNvbCB3 gHE8gO2lHVHdKwI4EQlqY051Kf YamFJlPgale3ruv1eelEd5QvSn VPDvunBxdOxxBCF8k2FmRl99 E31zOPcbZIPsOIEeOSBoPCRkaO sdrk8miR3zAe3+OT7ep7uteg39 mW27xDH+XVRvEVI6nZopWBdc KWSdsG1jQQkvTxT9IRXhEdSnxV 42bLHrWYdfEl1lxKhtlPuiNM9c IXKtgkofe092UvPqx8ocZFAm lXQeXGuoKXJ9S81wa8X7SMEmRA SwDTP8kXY3iU7ycDxeapnjcXCu rKbuveLudLohMIdtUSxkH710 IHRvcDsnPlBhdGllbnQgTmFtZT s6E4SsOxa0PQEliWcbHY7cmDYh VOhgOl0keAjgjXdqXJ1tNEKf ipvde068HmNcp0xxIXTipOIsSO ocPWL6V40yx5J9KWXcGOUwVMZ9 sZR9dX3pnUdrlvopeLSpnVxz hjXqnBirOBdvNMwkI993ERAncJ hvRdCbrwIiAGThqAV8QN09MS97 tMYib0V1dMJ5U5VvFRLoiovk gbopzYK6ZTOxTCKowS61Qy9hvS mwCg7qLTLjXAU5VHBvvQZkH0Hd zI3fPaUaNGEmTUVcH0PnzQRr FPdsG749BWvvMsB2NFYvedVoQ2 ZxZAWilJbyFlY5s0H1Bs4ON4Y7 PZ82OG64nUQry3D5xPA4M6Im HOHhowpajoaxjDM6CEWhZMHuzL 10Wd7ipJqvEw0qYURyNVV1LJQc aFVrA6BtiV6xPoTcDWIwVQVj J3MakOAvPYlmW989ZIfhGpD9FL YjajDdP9RnEKGuiBotFiB8t0X8 Xs7PESo0MN85CC00zUPue2G1 rUW7L4IoQVDmoghoosnoyRM3IA GnEZUexY70La8zrNprTq2aEGUl LPH3TDDwcPSvK2ZybN7jFoLg ZEJmQEDgP2FtbESjWRpjX250HY jcGuN2QECwnfAsK8PxRWMmbWjz VdX3p8G0Nn4LHBXtQO91NZO7 rRW3TA05NK09Y4NnGkvsiUKtdK U+PHRhYmxlIHdpZHRoPScxMDAl FtWhqVnyAS4qCx5ySVZgSTHg cAxysIYkFmFah0crMRHsKNmyCZ 3fjZmkS5HhaMP8YAQhj4b9Eh39 E30gJ6BljOK+EPNqbVU8zIV2 gZ3kNbYnBaK7PIogM590EmSjhF MxEhchi8son5rmgQu7ArC4WUYh fxRlbYuaCFX5t7QoBw48J38q IHdpZHRoPSIxNSUiIHZhbGlnbj 0djU2tPg3+GCAutUZ3yOP0aA6k FmErFmU0CAseW733YlTgcJYe Ysswu1pwv9vzbXv5UwLqVQUshy CddCnsJSW6u7XnFq93W1RtqYxq a4VlBee8kh86pZHfw4S3iRH0 L3FpQDErxxsuiAAteWomRF9fTQ HplxejCLUbmA6bZPTtH5t7LgVp AgE3HTjtQ6EgzjD1DNVepZBt MTjcDVH7L88fn0V4YRLqWUAgWJ M4uZH6tO2wfRypxcrqmIBrlIxy agIfiGceBEouULxyC827PNEh tZoiVJDruZ8cTOYthFPdoZnkMW 7nIVTyhmxiHfSDEXUJFXQJTB12 Y0OmByi5WHGauIkiUN2jxWWc IPxxHb2scAbvlDebVP2bFRVjft ziYCFlaA6iVSDagTVvqZhsOD3i OMWekzkwr092RsEyFJA7AXHy rZPpN8WssO3xAiXnAXTfVAAjT2 EptPMrTYrfX501YGueXoQ8KLTj ngCmW1PmNXBqyFwvWpK1u5B4 Os1sNJ3bNI1zNHG0PY22HS37tC Cmi8Z7gJZ6W2OeJHAmbbubszkx mPG5YQVsLYOrtE34uRTvNPdh Qc1is7A1c602MARrJSAhnO32Zo 0osXytQFZegPMPxJ3luilhx7mh rgmvHyVoCAViVWi0XDr3HLUz hZamHgRxCIX3RgH2OBJ5sMPcpW 1lyEexyipmtH5nBzi+NjQgWWVh euT0S0ZrPqf5DADhtNwvCB7b fJGoOYgiUb9hpUginAlsYZ2cNG DvlqtkXDTsuR6fBGWptIIxlZww IZ9oQJQnfsoxh922CdIxFYF7 OYEnvEQtM2IpuE6lDdNvPJLjCC XuL5WrdLRbWJjvM337VVkkRhK6 QYSjcaJlO4IvFWBslEkpLkQ0 u2S2Ma6LGLwvLJ33MX76rQKli8 P1pKN7N4ZqDZWnqxspymydgNV4 WDTyZJIjqH19fDLmZWakKt4z i6P3w343IZJoTQDjeD14Jk6exM wxZPXtoWPGcU1tyndpg5szpzva CeWkBMMbTUn5POc3GOWtuRlt FmQoBYI7FbM2XEB2uTOnoH7doE cyettglH3hBav+NJHhIWImj1Xh b6IbFC97SZ09L1DyMqbrvNWa bGU+PHRhYmxlIHdpZHRoPScxMD MoSkHdwFydUK2lJo7qVVDmYDXt vSvrxCPeLxRdm7byNVAuVTmx DQ3xhBxmL3YqkMV1XIZia8b2Bz 80Z27vZ1MuwWD+LBEseDE1zAA8 bU1qNxVlCxW6EJggS913HgIr kUKmLkixg7fzm5znyAp5NnSxCP FjucCndCizBEJ6c2QoRr91C71s IHdpZHRoPSIyMCUiIHZhbGln aq2wrM4mLo7+FFSulYJ6iGD0jH 1rSfDvUoQ7HHirD201WiXreKMd GsugJ12oS9MzxRJ+PHRyPjx0 AIQkcQqqGH8lvTDbARziKj8pVA O3UnWoFpTnAVtoO4AuTLGhyerd qmnnnMX2SCJwTYAuaN95Rw7e cOezFo8qIBBmDKW4LMTouWKtM4 FglG3hJzHgZKIlARSzN0XcyFUt APjdU293SMxbVyU5JBRffrEh Q2LtWGGfmOkkQpR9h3F4Gn4DrB yfoYUnWS4xMiYzUQy4O9JxQks4 OLYqqExdAK7rpIFvESdgWj0r hErczLrjJI3zXYBmhmjzx634Ub Jfr1mmIYGaoPRlCZbtIML3F35s v0O0HMGpKRFbDCV4yXZ8yI8s bGlnbjogbGVmdDsgdmVydGljYW lvPIfcO063ZBYemZhcQuWAAmq3 V7SyHpb3ZHXciQjrTZ0tcQBo JHdcPg9zbBlkhSnzAT4lZIGjtl nse761IvQqx7twTYLdbWWeCJpy WWJ6S90zy6G2NQUsPXUhHBY3 yTD6fD7eqCevmwpsmAHrkQfppq MboImqITmqCHtnM353TZZojVlf Lb8AIgs1R1ZuQcv2MBFcgZey GS2kmWDeBQijKo5toNrmmVfjHN 7lSMNkpttbe762EgEdf4cwWBMs iJZtOIqmNED4R15aq1O5QPDq SYHxTFE8uSO6bR9kaHnywlfqlF TsdCdnczLbqBqcVWmtDGrrZ106 IHRvcDsnPlBheWVyOjwvdGQ+ SV70ap74K3JpXjjpWgm5YDQzMD X8lTB9aI4aRVGtAHblr3R8mIF1 E4WencBkvm5pd4ifBYFgNMts Y29s (more content not included)... Normal [facility] Physician Orderon 12-27-2021 Physician Order [id number] [facility] A1C HEMOGLOBINon 12-15-2021 HbA1c (Bld) [Mass fraction] 6.4 % [place] [facility] [employer] Other HbA1c (Bld) [Mass fraction]o n 12-15-2021 A1C HEMOGLOBIN [facility] [employer] Other Bacteria identified Aer cx N om (Unsp spec)Ordered By: ALEX Begum on 12-13-2021 Superficial Wound Culture Staphylococcus aureus [facility] Basophils Auto (Bld) [#/Vol] Ordered By: Teri Ybarra on 12-05-2021 Basophils (Bld) [#/Vol] 0.1 10*3/uL 0.0-0.2 [facility] Basophils/100 WBC Auto (Bld) Ordered By: Teri Ybarra on 12-05-2021 Basophils/100 WBC (Bld) 0.8 % . [facility] Blood hemoglobin measurement (mass/volume)Ordered By: Teri Ybarra on 12-05-2021 Hemoglobin (Bld) [Mass/Vol] 13.7 g/dL 13.0-17.0 [facility] Blood leukocytes automated c ount (number/volume)Ordered By: Teri Ybarra on 12-05-2021 WBC (Bld) [#/Vol] 7.5 10*3/uL 4.5-11.[address] [facility] Body fluid albumin measureme nt (mass/volume)Ordered By: Teri Ybarra on 12-05-2021 Albumin (Body fld) [Mass/Vol] 4.0 g/dL 3.2-5.5 [facility] Creatinine and Glomerular fi ltration rate.predicted panel (S/P/Bld)Ordered By: Teri Ybarra on 12-05-2021 Creatinine [Mass/Vol] 1.28 mg/dL 0.64-1.27 [facility] Eosinophils Auto (Bld) [#/Vo l]Ordered By: Teri Ybarra on 12-05-2021 Eosinophils (Bld) [#/Vol] 0.4 10*3/uL 0.0-0.45 [facility] Eosinophils/100 WBC Auto (Bl d)Ordered By: Teri Ybarra on 12-05-2021 Eosinophils/100 WBC (Bld) 5.1 % . [facility] Erythrocyte distribution wid th Auto (RBC) [Ratio]Ordered By: Teri Ybarra on 12-05-2021 Erythrocyte distribution width (RBC) [Ratio] 15.6 % 12.0-14.8 [facility] Estimated glomerular filtrat ion rate (GFR) non- AmericanOrdered By: Teri Ybarra on 12-05-2021 GFR/1.73 sq M.predicted among non-blacks MDRD (S/P/Bld) [Vol rate/Area] 57 mL/Min [facility] Globulin Calc (S) [Mass/Vol] Ordered By: Teri Ybarra on 12-05-2021 Globulin (S) [Mass/Vol] 3.0 g/dL [facility] Hematocrit Auto (Bld) [Volum e fraction]Ordered By: Teri Ybarra on 12-05-2021 Hematocrit (Bld) [Volume fraction] 42.1 % 38.8-50.0 [facility] Laboratory - Hematology and Cell countsOrdered By: Teri Ybarra on 12-05-2021 Nucleated RBC/100 WBC (Bld) [Ratio] 0.0 % 0-0.5 [facility] Lymphocytes Auto (Bld) [#/Vo l]Ordered By: Teri Ybarra on 12-05-2021 Lymphocytes (Bld) [#/Vol] 1.1 10*3/uL 1.00-4.8 [facility] Lymphocytes/100 WBC Auto (Bl d)Ordered By: Teri Ybarra on 12-05-2021 Lymphocytes/100 WBC (Bld) 14.5 % . [facility] MCH Auto (RBC) [Entitic mass ]Ordered By: Teri Ybarra on 12-05-2021 MCH (RBC) [Entitic mass] 28.3 pg 27.5-35.2 [facility] MCHC Auto (RBC) [Mass/Vol]Or dered By: Teri Ybarra on 12-05-2021 MCHC (RBC) [Mass/Vol] 32.5 g/dL 32.5-35.6 [facility] MCV Auto (RBC) [Entitic vol] Ordered By: Teri Ybarra on 12-05-2021 MCV (RBC) [Entitic vol] 87.0 fL 83.5-101 [facility] Monocytes Auto (Bld) [#/Vol] Ordered By: Teri Ybarra on 12-05-2021 Monocytes (Bld) [#/Vol] 0.9 10*3/uL 0.0-0.8 [facility] Monocytes/100 WBC Auto (Bld) Ordered By: Teri Ybarra on 12-05-2021 Monocytes/100 WBC (Bld) 11.3 % . [facility] Neutrophils Auto (Bld) [#/Vo l]Ordered By: Teri Ybarra on 12-05-2021 Neutrophils (Bld) [#/Vol] 5.1 10*3/uL 1.8-7.7 [facility] Neutrophils/100 WBC Auto (Bl d)Ordered By: Teri Ybarra on 12-05-2021 Neutrophils/100 WBC (Bld) 68.3 % . [facility] No Panel InformationOrdered By: Teri Ybarra on 12-05-2021 Estimated GFR () > 60 mL/Min [facility] Comment on above: GFR estimated refere nce range: According to KDOQI guidelines, <60 ml/min/1.73m2 is sufficient to diagnose a patient with chronic kidney disease. Pharmacy Creatinine Clearance (Chem N/A [facility] Platelet mean volume Auto (B ld) [Entitic vol]Ordered By: Teri Ybarra on 12-05-2021 Platelet mean volume (Bld) [Entitic vol] 7.4 fL 6.6-10.1 [facility] Platelets Auto (Bld) [#/Vol] Ordered By: Teri Ybarra on 12-05-2021 Platelets (Bld) [#/Vol] 268 10*3/uL 150-450 [facility] Protein [Mass/volume] in Ser um or PlasmaOrdered By: Teri Ybarra on 12-05-2021 Protein [Mass/Vol] 7.0 g/dL 6.1-7.[address] [facility] RBC Auto (Bld) [#/Vol]Ordere d By: Teri Ybarra on 12-05-2021 RBC (Bld) [#/Vol] 4.84 10*6/uL 3.90-5.60 [facility] Serum or plasma alanine bartholomew otransferase measurement without P-5'-P (enzymatic activiOrdered By: Teri Ybarra on 12-05-2021 ALT No additional P-5'-P [Catalytic activity/Vol] 21 U/L 10-60 [facility] Serum or plasma albumin/glob ulin mass ratioOrdered By: Teri Ybarra on 12-05-2021 Albumin/Globulin [Mass ratio] 1.3 {ratio} [facility] Serum or plasma alkaline dorothea sphatase measurement (enzymatic activity/volume)Ordered By: Teri Ybarra on 12-05-2021 ALP [Catalytic activity/Vol] 94 U/L 32-92 [facility] Serum or plasma anion gap de terminationOrdered By: Teri Ybarra on 12-05-2021 Anion gap [Moles/Vol] 11.9 mmol/L 6.0-15.0 [facility] Serum or plasma aspartate am inotransferase measurement (enzymatic activity/volume)Ordered By: Teri Ybarra on 12-05-2021 AST [Catalytic activity/Vol] 29 U/L 10-42 [facility] Serum or plasma calcium victor m urement (mass/volume)Ordered By: Teri Ybarra on 12-05-2021 Calcium [Mass/Vol] 10.4 mg/dL 8.2-10.[address] [facility] Serum or plasma chloride meenakshi surement (moles/volume)Ordered By: Teri Ybarra on 12-05-2021 Chloride [Moles/Vol] 102 mmol/L 95-114 [facility] Serum or plasma glucose victor m urement (mass/volume)Ordered By: Teri Ybarra on 12-05-2021 Glucose [Mass/Vol] 116 mg/dL 70-[address] [facility] Comment on above: ADA recommended refe [...] on 12-05-2021 Potassium [Moles/Vol] 3.6 mmol/L 3.5-5.1 [facility] Serum or plasma sodium measu rement (moles/volume)Ordered By: Teri Ybarra on 12-05-2021 Sodium [Moles/Vol] 138 mmol/L 136-[address] [facility] Serum or plasma total biliru bin measurement (mass/volume)Ordered By: Teri Ybarra on 12-05-2021 Bilirubin [Mass/Vol] 0.7 mg/dL 0.3-1.2 [facility] Serum or plasma total carbon dioxide measurement (moles/volume)Ordered By: Teri Ybarra on 12-05-2021 CO2 [Moles/Vol] 27.7 mmol/L 22.0-30.0 [facility] Serum or plasma urea nitroge n measurement (mass/volume)Ordered By: Teri Tate on 12-05-2021 Urea nitrogen [Mass/Vol] 34 mg/dL 12-08 [facility] Physical Therapy Noteon 11-16 Physical Therapy Note [id number] Bacteria identified Aer cx N om (Unsp spec)Ordered By: Estee Han on 11-10-2021 Superficial Wound Culture Staphylococcus aureus [facility] Basophils Auto (Bld) [#/Vol] Ordered By: Sandra Danielson on 11-09-2021 Basophils (Bld) [#/Vol] 0.1 10*3/uL 0.0-0.2 [facility] Basophils/100 WBC Auto (Bld) Ordered By: Sandra Danielson on 11-09-2021 Basophils/100 WBC (Bld) 0.9 % . [facility] Blood hemoglobin measurement (mass/volume)Ordered By: Sandra Danielson on 11-09-2021 Hemoglobin (Bld) [Mass/Vol] 13.6 g/dL 13.0-17.0 [facility] Blood leukocytes automated c ount (number/volume)Ordered By: Sandra Danielson on 11-09-2021 WBC (Bld) [#/Vol] 6.4 10*3/uL 4.5-11.[address] [facility] Body fluid albumin measureme nt (mass/volume)Ordered By: Geeta Dumont on 11-09-2021 Albumin (Body fld) [Mass/Vol] 3.9 g/dL 3.2-5.5 [facility] Creatinine and Glomerular fi ltration rate.predicted panel (S/P/Bld)Ordered By: Geeta Dumont on 11-09-2021 Creatinine [Mass/Vol] 1.22 mg/dL 0.64-1.27 [facility] Eosinophils Auto (Bld) [#/Vo l]Ordered By: Sandra Danielson on 11-09-2021 Eosinophils (Bld) [#/Vol] 0.5 10*3/uL 0.0-0.45 [facility] Eosinophils/100 WBC Auto (Bl d)Ordered By: Sandra Danielson on 11-09-2021 Eosinophils/100 WBC (Bld) 7.6 % . [facility] Erythrocyte distribution wid th Auto (RBC) [Ratio]Ordered By: Sandra Danielson on 11-09-2021 Erythrocyte distribution width (RBC) [Ratio] 16.2 % 12.0-14.8 [facility] Estimated glomerular filtrat ion rate (GFR) non- AmericanOrdered By: Geeta Dumont on 11-09-2021 GFR/1.73 sq M.predicted among non-blacks MDRD (S/P/Bld) [Vol rate/Area] 60 mL/Min [facility] Globulin Calc (S) [Mass/Vol] Ordered By: Geeta Dumont on 11-09-2021 Globulin (S) [Mass/Vol] 3.2 g/dL [facility] Hematocrit Auto (Bld) [Volum e fraction]Ordered By: Sandra Danielson on 11-09-2021 Hematocrit (Bld) [Volume fraction] 42.3 % 38.8-50.0 [facility] Laboratory - Hematology and Cell countsOrdered By: Sandra Danielson on 11-09-2021 Nucleated RBC/100 WBC (Bld) [Ratio] 0.1 % 0-0.5 [facility] Lactate dehydrogenase measur ement (enzymatic activity/volume)Ordered By: Sandra Danielson on 11-09-2021 LDH (Unsp spec) [Catalytic activity/Vol] 186 U/L 45-190 [facility] Lymphocytes Auto (Bld) [#/Vo l]Ordered By: Sandra Danielson on 11-09-2021 Lymphocytes (Bld) [#/Vol] 1.0 10*3/uL 1.00-4.8 [facility] Lymphocytes/100 WBC Auto (Bl d)Ordered By: Sandra Danielson on 11-09-2021 Lymphocytes/100 WBC (Bld) 15.5 % . [facility] MCH Auto (RBC) [Entitic mass ]Ordered By: Sandra Danielson on 11-09-2021 MCH (RBC) [Entitic mass] 28.0 pg 27.5-35.2 [facility] MCHC Auto (RBC) [Mass/Vol]Or dered By: Sandra Danielson on 11-09-2021 MCHC (RBC) [Mass/Vol] 32.0 g/dL 32.5-35.6 [facility] MCV Auto (RBC) [Entitic vol] Ordered By: Sandra Danielson on 11-09-2021 MCV (RBC) [Entitic vol] 87.3 fL 83.5-101 [facility] Monocytes Auto (Bld) [#/Vol] Ordered By: Sandra Danielson on 11-09-2021 Monocytes (Bld) [#/Vol] 0.8 10*3/uL 0.0-0.8 [facility] Monocytes/100 WBC Auto (Bld) Ordered By: Sandra Danielson on 11-09-2021 Monocytes/100 WBC (Bld) 12.3 % . [facility] Neutrophils Auto (Bld) [#/Vo l]Ordered By: Sandra Danielson on 11-09-2021 Neutrophils (Bld) [#/Vol] 4.1 10*3/uL 1.8-7.7 [facility] Neutrophils/100 WBC Auto (Bl d)Ordered By: Sandra Danielson on 11-09-2021 Neutrophils/100 WBC (Bld) 63.7 % . [facility] No Panel InformationOrdered By: Geeta Dumont on 11-09-2021 Estimated GFR () > 60 mL/Min [facility] Comment on above: GFR estimated refere nce range: According to KDOQI guidelines, <60 ml/min/1.73m2 is sufficient to diagnose a patient with chronic kidney disease. Pharmacy Creatinine Clearance (Chem 78.67 [facility] Platelet mean volume Auto (B ld) [Entitic vol]Ordered By: Sandra Danielson on 11-09-2021 Platelet mean volume (Bld) [Entitic vol] 7.1 fL 6.6-10.1 [facility] Platelets Auto (Bld) [#/Vol] Ordered By: Sandra Danielson on 11-09-2021 Platelets (Bld) [#/Vol] 260 10*3/uL 150-450 [facility] Protein [Mass/volume] in Ser um or PlasmaOrdered By: Geeta Dumont on 11-09-2021 Protein [Mass/Vol] 7.1 g/dL 6.1-7.[address] [facility] RBC Auto (Bld) [#/Vol]Ordere d By: Sandra Danielson on 11-09-2021 RBC (Bld) [#/Vol] 4.85 10*6/uL 3.90-5.60 [facility] Serum or plasma alanine bartholomew otransferase measurement without P-5'-P (enzymatic activiOrdered By: Geeta Dumont on 11-09-2021 ALT No additional P-5'-P [Catalytic activity/Vol] 16 U/L 10-60 [facility] Serum or plasma albumin/glob ulin mass ratioOrdered By: Geeta Dumont on 11-09-2021 Albumin/Globulin [Mass ratio] 1.2 {ratio} [facility] Serum or plasma alkaline dorothea sphatase measurement (enzymatic activity/volume)Ordered By: Geeta Dumont on 11-09-2021 ALP [Catalytic activity/Vol] 103 U/L 32-92 [facility] Serum or plasma aspartate am inotransferase measurement (enzymatic activity/volume)Ordered By: Geeta Dumont on 11-09-2021 AST [Catalytic activity/Vol] 22 U/L 10-42 [facility] Serum or plasma calcium victor m urement (mass/volume)Ordered By: Geeta Dumont on 11-09-2021 Calcium [Mass/Vol] 10.7 mg/dL 8.2-10.[address] [facility] Serum or plasma chloride meenakshi surement (moles/volume)Ordered By: Geeta Dumont on 11-09-2021 Chloride [Moles/Vol] 101 mmol/L 95-114 [facility] Serum or plasma glucose victor m urement (mass/volume)Ordered By: Geeta Dumont on 11-09-2021 Glucose [Mass/Vol] 98 mg/dL 70-[address] [facility] Comment on above: ADA recommended refe [...] on 11-09-2021 Potassium [Moles/Vol] 4.5 mmol/L 3.5-5.1 [facility] Serum or plasma sodium measu rement (moles/volume)Ordered By: Geeta Dumont on 11-09-2021 Sodium [Moles/Vol] 137 mmol/L 136-[address] [facility] Serum or plasma total biliru bin measurement (mass/volume)Ordered By: Geeta Dumont on 11-09-2021 Bilirubin [Mass/Vol] 0.6 mg/dL 0.3-1.2 [facility] Serum or plasma total carbon dioxide measurement (moles/volume)Ordered By: Geeta Dumont on 11-09-2021 CO2 [Moles/Vol] 29.2 mmol/L 22.0-30.0 [facility] Serum or plasma urea nitroge n measurement (mass/volume)Ordered By: Geeta Dumont on 11-09-2021 Urea nitrogen [Mass/Vol] 25 mg/dL - [facility] Basic Metabolic Profon 10-27 (cont.) Normal [facility] Comment on above: Result Comment: Aver age GFR for 60-69 years old: 85 mL/min/1.73sq m Chronic Kidney Disease: <60 mL/min/1.73sq m Kidney failure: <15 mL/min/1.73sq m eGFR calculated using average adult body mass. Additional eGFR calculator available at: http://www.[employer]/multiple_crcl_2011.htm Performed By: #### G LYHGB, IOCAL #### [id number] [place] [address] Belly Roller: Chi Layne MD #### BMP, CBC #### [facility] [address] [place] [address] Belly Roller: Russell Sanchez MD Anion gap [Moles/Vol] 8 mmol/L Low 9-17 [facility] Comment on above: Performed By: #### G LYHGB, IOCAL #### [address] [address] Belly Roller: Chi Layne MD #### BMP, CBC #### [facility] [address] [place] [address] Belly Roller: Russell Sanchez MD BUN/CRE Ratio 20 Normal 9-20 [facility] Comment on above: Performed By: #### G LYHGB, IOCAL #### [address] [address] Belly Roller: Chi Layne MD #### BMP, CBC #### [facility] [address] [place] [address] Belly Roller: Russell Sanchez MD Calcium [Mass/Vol] 10.8 mg/dL High 8.6-10.4 [facility] Comment on above: Performed By: #### G LYHGB, IOCAL #### [address] [address] Belly Roller: Chi Layne MD #### BMP, CBC #### [facility] [address] [place] [address] Belly Roller: Russell Sanchez MD Chloride [Moles/Vol] 102 mmol/L Normal 98-107 [facility] Comment on above: Performed By: #### G LYHGB, IOCAL #### [address] [address] Belly Roller: Chi Layne MD #### BMP, CBC #### [facility] [address] [place] [address] Belly Roller: Russell Sanchez MD CO2 [Moles/Vol] 32 mmol/L High 20-31 [facility] Comment on above: Performed By: #### G LYHGB, IOCAL #### [address] [address] Belly Roller: Chi Layne MD #### BMP, CBC #### [facility] [address] [place] [address] Belly Roller: Russell Sanchez MD Creatinine [Mass/Vol] 1.20 mg/dL Normal 0.70-1.20 [facility] Comment on above: Performed By: #### G LYHGB, IOCAL #### [address] [address] Belly Roller: Chi Layne MD #### BMP, CBC #### [facility] [address] [place] [address] Belly Roller: Russell Sanchez MD GFR, Amer >60 Normal >60 [facility] Comment on above: Performed By: #### G LYHGB, IOCAL #### [address] [address] Belly Roller: Chi Layne MD #### BMP, CBC #### [facility] [address] [place] [address] Belly Roller: Russell Sanchez MD GFR,non Amer >60 Normal >60 [facility] Comment on above: Performed By: #### G LYHGB, IOCAL #### [facility] [address] [place] [address] Belly Roller: Chi Layne MD #### BMP, CBC #### [facility] [address] [place] [address] Belly Roller: Russell Sanchez MD Glucose [Mass/Vol] 85 mg/dL Normal 70-99 [facility] Comment on above: Performed By: #### G LYHGB, IOCAL #### [address] [address] Belly Roller: Chi Layne MD #### BMP, CBC #### [facility] [address] [place] [address] Belly Roller: Russell Sanchez MD Potassium [Moles/Vol] 3.7 mmol/L Normal 3.7-5.3 [facility] Comment on above: Performed By: #### G LYHGB, IOCAL #### [address] [address] Belly Roller: Chi Layne MD #### BMP, CBC #### [facility] [address] [place] [id number] Belly Roller: Russell Sanchez MD Sodium [Moles/Vol] 142 mmol/L Normal 135-144 [facility] Comment on above: Performed By: #### G LYHGB, IOCAL #### [address] [address] Belly Roller: Chi Layne MD #### BMP, CBC #### [facility] [address] [place] [phone] Belly Roller: Russell Sanchez MD Urea nitrogen [Mass/Vol] 24 mg/dL High 8-23 [facility] Comment on above: Performed By: #### G LYHGB, IOCAL #### [facility] [address] [place] [address] Belly Roller: Chi Layne MD #### BMP, CBC #### [facility] [address] [place] [phone] Belly Roller: Russell Sanchez MD CBCon 10-27-2021 Erythrocyte distribution width (RBC) [Ratio] 15.0 % High 11.8-14.4 [facility] Comment on above: Performed By: #### G LYHGB, IOCAL #### [address] [address] Belly Roller: Chi Layne MD #### BMP, CBC #### [facility] [address] [place] [address] Belly Roller: Russell Sanchez MD Hematocrit (Bld) [Volume fraction] 42.6 % Normal 40.7-50.3 [facility] Comment on above: Performed By: #### G LYHGB, IOCAL #### [address] [address] Belly Roller: Chi Layne MD #### BMP, CBC #### [facility] [address] [place] [address] Belly Roller: Russell Sanchez MD Hemoglobin (Bld) [Mass/Vol] 13.6 g/dL Normal 13.0-17.0 [facility] Comment on above: Performed By: #### G LYHGB, IOCAL #### [address] [address] Belly Roller: Chi Layne MD #### BMP, CBC #### [facility] [address] [place] [address] Belly Roller: Russell Sanchez MD MCH (RBC) [Entitic mass] 28.4 pg Normal 25.2-33.5 [facility] Comment on above: Performed By: #### G LYHGB, IOCAL #### [address] [address] Belly Roller: Chi Layne MD #### BMP, CBC #### [facility] [address] [place] [address] Belly Roller: Russell Sanchez MD MCHC (RBC) [Mass/Vol] 31.9 g/dL Normal 28.4-34.8 [facility] Comment on above: Performed By: #### G LYHGB, IOCAL #### [address] [address] Belly Roller: Chi Layne MD #### BMP, CBC #### [facility] [address] [place] [phone] Belly Roller: Russell Sanchez MD MCV (RBC) [Entitic vol] 88.9 fL Normal 82.6-102.9 [facility] Comment on above: Performed By: #### G LYHGB, IOCAL #### [address] [address] Belly Roller: Chi Layne MD #### BMP, CBC #### [facility] [address] [place] [phone] Belly Roller: Russell Sanchez MD NRBC Automated 0.0 per 100 WBC Normal 0.0 [facility] Comment on above: Performed By: #### G LYHGB, IOCAL #### [address] [address] Belly Roller: Chi Layne MD #### BMP, CBC #### [facility] [address] [place] [address] Belly Roller: Russell Sanchez MD Platelet mean volume (Bld) [Entitic vol] 9.2 fL Normal 8.1-13.5 [facility] [facility] Comment on above: Performed By: #### G LYHGB, IOCAL #### [address] [address] Belly Roller: Chi Layne MD #### BMP, CBC #### [facility] [address] [place] [address] Belly Roller: Russell Sanchez MD Platelets (Bld) [#/Vol] 203 10*3/uL Normal 138-453 [facility] Comment on above: Performed By: #### G LYHGB, IOCAL #### [address] [address] Belly Roller: Chi Layne MD #### BMP, CBC #### [facility] [address] [place] [address] Belly Roller: Russell Sanchez MD RBC (Bld) [#/Vol] 4.79 10*6/uL Normal 4.21-5.77 [facility] Comment on above: Performed By: #### G LYHGB, IOCAL #### [address] [address] Belly Roller: Chi Layne MD #### BMP, CBC #### [facility] [address] [place] [address] Belly Roller: Russell Sanchez MD WBC (Bld) [#/Vol] 5.8 10*3/uL Normal 3.5-11.3 [facility] Comment on above: Performed By: #### G LYHGB, IOCAL #### [address] [place] [address] Belly Roller: Chi Layne MD #### BMP, CBC #### [facility] [place] [address] Belly Roller: Russell Sanchez MD Calcium, Ionicon 10-27-2021 Calcium [Moles/Vol] 1.44 mmol/L High 1.13-1.33 [facility] Comment on above: Performed By: #### G LYHGB, IOCAL #### [facility] [employer] [address] [place] [id number] Belly Roller: Chi Layne MD #### BMP, CBC #### [facility] [address] [place] [address] Belly Roller: Russell Sanchez MD Hemoglobin A1Con 10-27-2021 Glucose [Mass/Vol] 137 mg/dL Normal [facility] Comment on above: Result Comment: The ADA and AACC recommend providing the estimated average glucose result to permit better patient understanding of their HBA1c result. Performed By: #### Sp FRY, IOCAL #### [address] [address] Belly Roller: Chi Layne MD #### BMP, CBC #### [facility] [address] [place] [address] Belly Roller: Russell Sanchez MD HbA1c (Bld) [Mass fraction] 6.4 % High 4.0-6.0 [facility] Comment on above: Performed By: #### G LYHGB, IOCAL #### [address] [address] Belly Roller: Chi Layne MD #### BMP, CBC #### [facility] [address] [place] [address] Belly Roller: Russell Sanchez MD XR CHEST (2 VW)on [...] Vivian Padron MD 10/27/21 Final result Normal [facility] Linear bibasilar opa city, likely atelectasis. [facility] EXAMINATION: TWO XRAY VIEWS [...] Multilevel degenerative changes of the thoracic spine. [facility] Vivian Padron MD - [...] spine. IMPRESSION: Linear bibasilar opacity, likely atelectasis. Chairish Phone: Radiology Study observation (narrative) Chairish Phone: XR CHEST (2 VW)Ordered By: Hyun Padron on 10-27-2021 RICHARD [employer] Work Phone: Creatinine and Glomerular fi ltration rate.predicted panel (S/P/Bld)Ordered By: Shirley Persaud on 09-27-2021 Creatinine [Mass/Vol] 1.32 mg/dL 0.64-1.27 [facility] Estimated glomerular filtrat ion rate (GFR) non- AmericanOrdered By: Shirley Persaud on 09-27-2021 GFR/1.73 sq M.predicted among non-blacks MDRD (S/P/Bld) [Vol rate/Area] 55 mL/Min [facility] No Panel InformationOrdered By: Shirley Persaud on 09-27-2021 Estimated GFR () > 60 mL/Min [facility] Comment on above: GFR estimated refere nce range: According to KDOQI guidelines, <60 ml/min/1.73m2 is sufficient to diagnose a patient with chronic kidney disease. Pharmacy Creatinine Clearance (Chem N/A [facility] Serum or plasma calcium victor m urement (mass/volume)Ordered By: Shirley Persaud on 09-27-2021 Calcium [Mass/Vol] 11.1 mg/dL 8.2-10.[address] [facility] Serum or plasma chloride meenakshi surement (moles/volume)Ordered By: Shirley Persaud on 09-27-2021 Chloride [Moles/Vol] 99 mmol/L 95-114 [facility] Serum or plasma glucose victor m urement (mass/volume)Ordered By: Shirley Persaud on 09-27-2021 Glucose [Mass/Vol] 106 mg/dL 70-[address] [facility] Comment on above: ADA recommended refe [...] on 09-27-2021 Potassium [Moles/Vol] 4.4 mmol/L 3.5-5.1 [facility] Serum or plasma sodium measu rement (moles/volume)Ordered By: Shirley Persaud on 09-27-2021 Sodium [Moles/Vol] 136 mmol/L 136-[address] [facility] Serum or plasma total carbon dioxide measurement (moles/volume)Ordered By: Shirley Persaud on 09-27-2021 CO2 [Moles/Vol] 27.4 mmol/L 22.0-30.0 [facility] Serum or plasma urea nitroge n measurement (mass/volume)Ordered By: Shirley Persaud on 09-27-2021 Urea nitrogen [Mass/Vol] 36 mg/dL 9-23 [facility] Bacteria identified Anaer cx Nom (Unsp spec)Ordered By: ALEX Begum on 09-25-2021 Anaerobic microbial culture No Anaerobes Isolated 3 Days [facility] Basophils Auto (Bld) [#/Vol] Ordered By: Shirley Persaud on 09-24-2021 Basophils (Bld) [#/Vol] 0.1 10*3/uL 0.0-0.2 [facility] Basophils/100 WBC Auto (Bld) Ordered By: Shirley Persaud on 09-24-2021 Basophils/100 WBC (Bld) 0.8 % . [facility] Blood hemoglobin measurement (mass/volume)Ordered By: Shirley Persaud on 09-24-2021 Hemoglobin (Bld) [Mass/Vol] 12.6 g/dL 13.0-17.0 [facility] Blood leukocytes automated c ount (number/volume)Ordered By: Shirley Persaud on 09-24-2021 WBC (Bld) [#/Vol] 6.7 10*3/uL 4.5-11.[address] [facility] Creatinine and Glomerular fi ltration rate.predicted panel (S/P/Bld)Ordered By: Shirley Persaud on 09-24-2021 Creatinine [Mass/Vol] 1.32 mg/dL 0.64-1.27 [facility] Eosinophils Auto (Bld) [#/Vo l]Ordered By: Shirley Persaud on 09-24-2021 Eosinophils (Bld) [#/Vol] 0.4 10*3/uL 0.0-0.45 [facility] Eosinophils/100 WBC Auto (Bl d)Ordered By: Shirley Persaud on 09-24-2021 Eosinophils/100 WBC (Bld) 6.0 % . [facility] Erythrocyte distribution wid th Auto (RBC) [Ratio]Ordered By: Shirley Persaud on 09-24-2021 Erythrocyte distribution width (RBC) [Ratio] 14.5 % 12.0-14.8 [facility] Estimated glomerular filtrat ion rate (GFR) non- AmericanOrdered By: Shirley Persaud on 09-24-2021 GFR/1.73 sq M.predicted among non-blacks MDRD (S/P/Bld) [Vol rate/Area] 55 mL/Min [facility] Glucose Glucometer (BldC) [M ass/Vol]Ordered By: Shirley Persaud on 09-24-2021 Glucose [Mass/Vol] 124 mg/dL [facility] Comment on above: Random Glucose Refer ence Range is dependent on time and content of last meal. Glucose of more than 200 mg/dL in a nonstressed, ambulatory subject supports the diagnosis of Diabetes Mellitus. Hematocrit Auto (Bld) [Volum e fraction]Ordered By: Shirley Persaud on 09-24-2021 Hematocrit (Bld) [Volume fraction] 37.6 % 38.8-50.0 [facility] Laboratory - Hematology and Cell countsOrdered By: Shirley Persaud on 09-24-2021 Nucleated RBC/100 WBC (Bld) [Ratio] 0.0 % 0-0.5 [facility] Lymphocytes Auto (Bld) [#/Vo l]Ordered By: Shirley Persaud on 09-24-2021 Lymphocytes (Bld) [#/Vol] 0.6 10*3/uL 1.00-4.8 [facility] Lymphocytes/100 WBC Auto (Bl d)Ordered By: Shirley Persaud on 09-24-2021 Lymphocytes/100 WBC (Bld) 8.9 % . [facility] MCH Auto (RBC) [Entitic mass ]Ordered By: Shirley Persaud on 09-24-2021 MCH (RBC) [Entitic mass] 28.8 pg 27.5-35.2 [facility] MCHC Auto (RBC) [Mass/Vol]Or dered By: Shirley Persaud on 09-24-2021 MCHC (RBC) [Mass/Vol] 33.7 g/dL 32.5-35.[address] [facility] MCV Auto (RBC) [Entitic vol] Ordered By: Shirley Persaud on 09-24-2021 MCV (RBC) [Entitic vol] 85.7 fL 83.5-101 [facility] Monocytes Auto (Bld) [#/Vol] Ordered By: Shirley Persaud on 09-24-2021 Monocytes (Bld) [#/Vol] 0.7 10*3/uL 0.0-0.8 [facility] Monocytes/100 WBC Auto (Bld) Ordered By: Shirley Persaud on 09-24-2021 Monocytes/100 WBC (Bld) 10.9 % . [facility] Neutrophils Auto (Bld) [#/Vo l]Ordered By: Shirley Persaud on 09-24-2021 Neutrophils (Bld) [#/Vol] 4.9 10*3/uL 1.8-7.7 [facility] Neutrophils/100 WBC Auto (Bl d)Ordered By: Shirley Persaud on 09-24-2021 Neutrophils/100 WBC (Bld) 73.4 % . [facility] No Panel InformationOrdered By: Shirley Persaud on 09-24-2021 Bedside Glucose Comment Glu2: cleaned meter [facility] Estimated GFR () > 60 mL/Min [facility] Comment on above: GFR estimated refere nce range: According to KDOQI guidelines, <60 ml/min/1.73m2 is sufficient to diagnose a patient with chronic kidney disease. Pharmacy Creatinine Clearance (Chem 69.81 [facility] Platelet mean volume Auto (B ld) [Entitic vol]Ordered By: Shirley Persaud on 09-24-2021 Platelet mean volume (Bld) [Entitic vol] 6.8 fL 6.6-10.1 [facility] Platelets Auto (Bld) [#/Vol] Ordered By: Shirley Persaud on 09-24-2021 Platelets (Bld) [#/Vol] 277 10*3/uL 150-450 [facility] RBC Auto (Bld) [#/Vol]Ordere d By: Shirley Persaud on 09-24-2021 RBC (Bld) [#/Vol] 4.38 10*6/uL 3.90-5.60 [facility] Serum or plasma calcium victor m urement (mass/volume)Ordered By: Shirley Persaud on 09-24-2021 Calcium [Mass/Vol] 10.2 mg/dL 8.2-10.[address] [facility] Serum or plasma chloride meenakshi surement (moles/volume)Ordered By: Shirley Persaud on 09-24-2021 Chloride [Moles/Vol] 99 mmol/L 95-114 [facility] Serum or plasma glucose victor m urement (mass/volume)Ordered By: Shirley Persaud on 09-24-2021 Glucose [Mass/Vol] 109 mg/dL 70-[address] [facility] Comment on above: ADA recommended refe rence range Random Glucose Reference Range is dependent on time and content of last meal. Glucose of more than 200 mg/dL in a nonstressed, ambulatory subject supports the diagnosis of Diabetes Mellitus. Serum or plasma potassium me asurement (moles/volume)Ordered By: Shirley Persaud on 09-24-2021 Potassium [Moles/Vol] 3.7 mmol/L 3.5-5.1 [facility] Comment on above: Delta: 5.4 on 6 Serum or plasma sodium measu rement (moles/volume)Ordered By: Shirley Persaud on 09-24-2021 Sodium [Moles/Vol] 137 mmol/L 136-[address] [facility] Serum or plasma total carbon dioxide measurement (moles/volume)Ordered By: Shirley Persaud on 09-24-2021 CO2 [Moles/Vol] 30.2 mmol/L 22.0-30.0 [facility] Serum or plasma urea nitroge n measurement (mass/volume)Ordered By: Shirley Persaud on 09-24-2021 Urea nitrogen [Mass/Vol] 31 mg/dL 9-23 [facility] ABO and Rh group post transf usion reaction Nom (Bld)Ordered By: ALEX Begum on 09-23-2021 Microscopic observation Gram stain Nom (Unsp spec) [facility] Bacteria identified Aer cx N om (Unsp spec)Ordered By: ALEX Lal on 09-23-2021 Superficial Wound Culture Staphylococcus aureus [facility] Serum or plasma trough vanco mycin levelOrdered By: Cindy Donald on 09-23-2021 Vancomycin trough [Mass/Vol] 24.0 ug/mL 10.0-20.0 [facility] Comment on above: Last dose: - C reactive protein [Mass/vol ume] in Serum or PlasmaOrdered By: Shirley Persaud on 09-22-2021 CRP [Mass/Vol] 5.0 mg/dL 0.0-1.0 [facility] Peak vancomycin levelOrdered By: Cindy Donald on 09-22-2021 Vancomycin peak [Mass/Vol] 44.1 ug/mL 20.0-40.0 [facility] Comment on above: Last dose: - Phosphate [Mass/volume] in S elmira or PlasmaOrdered By: Shirley Persaud on 09-22-2021 Phosphate [Mass/Vol] 3.2 mg/dL 2.5-4.6 [facility] Serum or plasma intact parat hyroid hormone measurement (mass/volume)Ordered By: Mohini Hanna on 09-22-2021 Parathyrin.intact [Mass/Vol] 79.1 pg/mL [facility] COVID-19 Positive/NegativeOr dered By: Cindy Donald on 09-21-2021 SARS-CoV-2 (COVID-19) N gene EMILY+probe Ql (Resp) Negative Negative [facility] Comment on above: Testing for SARS-CoV -2 by RT-PCR This test was developed and its performance characteristics determined by [employer] ([employer]) and validated at the [facility]. This test has not been FDA [...] [Mass/volume] in Ser um or PlasmaOrdered By: Brionna Lal on 09-20-2021 Albumin [Mass/Vol] 3.3 g/dL 3.2-5.[address] [facility] Globulin Calc (S) [Mass/Vol] Ordered By: Brionna Lal on 09-20-2021 Globulin (S) [Mass/Vol] 4.1 g/dL [facility] Protein [Mass/volume] in Ser um or PlasmaOrdered By: Brionna Lal on 09-20-2021 Protein [Mass/Vol] 7.4 g/dL 6.1-7.[address] [facility] Serum or plasma alanine bartholomew otransferase measurement without P-5'-P (enzymatic activiOrdered By: Brionna Lal on 09-20-2021 ALT No additional P-5'-P [Catalytic activity/Vol] 21 U/L 10-60 [facility] Serum or plasma albumin/glob ulin mass ratioOrdered By: Brionna Lal on 09-20-2021 Albumin/Globulin [Mass ratio] 0.8 {ratio} [facility] Serum or plasma alkaline dorothea sphatase measurement (enzymatic activity/volume)Ordered By: [facility] Alden Lal on 09-20-2021 ALP [Catalytic activity/Vol] 110 U/L 32-92 [facility] Serum or plasma aspartate am inotransferase measurement (enzymatic activity/volume)Ordered By: [facility] Alden Lal on 09-20-2021 AST [Catalytic activity/Vol] 26 U/L 10-42 [facility] Serum or plasma total biliru bin measurement (mass/volume)Ordered By: [facility] Alden Stovallnthal on 09-20-2021 Bilirubin [Mass/Vol] 0.6 mg/dL 0.3-1.2 [facility] US Venous, Unilat, Lower Ext Lefton [...] by Fred Kidd on 09/19/2021 1533 Normal [facility] Albumin [Mass/volume] in Ser um or PlasmaOrdered By: Joana Farooq on 09-06-2021 Albumin [Mass/Vol] 3.7 g/dL 3.2-5.[address] [facility] Basophils Auto (Bld) [#/Vol] Ordered By: Joana Farooq on 09-06-2021 Basophils (Bld) [#/Vol] 0.0 10*3/uL 0.0-0.2 [facility] Basophils/100 WBC Auto (Bld) Ordered By: Joana Farooq on 09-06-2021 Basophils/100 WBC (Bld) 0.8 % . [facility] Blood hemoglobin measurement (mass/volume)Ordered By: Joana Farooq on 09-06-2021 Hemoglobin (Bld) [Mass/Vol] 13.8 g/dL 13.0-17.0 [facility] Blood leukocytes automated c ount (number/volume)Ordered By: Joana Farooq on 09-06-2021 WBC (Bld) [#/Vol] 5.9 10*3/uL 4.5-11.[address] [facility] Cholesterol [Mass/volume] in Serum or PlasmaOrdered By: Stephanie Burgess on 09-06-2021 Cholesterol [Mass/Vol] 154 mg/dL 140-200 [facility] Comment on above: Chol less than 200 m g/dl low risk Chol 201-239 mg/dl borderline risk Chol 240 mg/dl and greater high risk Cholesterol in LDL Calc [Mas s/Vol]Ordered By: Stephanie Burgess on 09-06-2021 Cholesterol in LDL [Mass/Vol] 93 mg/dL 0-100 [facility] Comment on above: LDL ATP III CLASSIFI CATION LDL less than 100 mg/dL Optimal LDL 100-129 mg/dL Near or above optimal LDL 130-159 mg/dL Borderline high LDL 160-189 mg/dL High LDL greater than 189 mg/dL Very high Cholesterol in VLDL Calc [Ma ss/Vol]Ordered By: Stephanie Burgess on 09-06-2021 Cholesterol in VLDL [Mass/Vol] 15 mg/dL [facility] Creatinine and Glomerular fi ltration rate.predicted panel (S/P/Bld)Ordered By: Joana Farooq on 09-06-2021 Creatinine [Mass/Vol] 1.51 mg/dL 0.64-1.27 [facility] Eosinophils Auto (Bld) [#/Vo l]Ordered By: Joana Farooq on 09-06-2021 Eosinophils (Bld) [#/Vol] 0.4 10*3/uL 0.0-0.45 [facility] Eosinophils/100 WBC Auto (Bl d)Ordered By: Joana Farooq on 09-06-2021 Eosinophils/100 WBC (Bld) 6.4 % . [facility] Erythrocyte distribution wid th Auto (RBC) [Ratio]Ordered By: Joana Farooq on 09-06-2021 Erythrocyte distribution width (RBC) [Ratio] 15.0 % 12.0-14.8 [facility] Estimated glomerular filtrat ion rate (GFR) non- AmericanOrdered By: Joana Farooq on 09-06-2021 GFR/1.73 sq M.predicted among non-blacks MDRD (S/P/Bld) [Vol rate/Area] 47 mL/Min [facility] Globulin Calc (S) [Mass/Vol] Ordered By: Joana Farooq on 09-06-2021 Globulin (S) [Mass/Vol] 2.8 g/dL [facility] Hematocrit Auto (Bld) [Volum e fraction]Ordered By: Joana Farooq on 09-06-2021 Hematocrit (Bld) [Volume fraction] 41.6 % 38.8-50.0 [facility] Laboratory - Chemistry and C hemistry - challengeon 09-06-2021 Cholesterol [Mass/Vol] 154\S\154 Normal 140-200 [facility] y 250 DO Work Phone: Comment on above: Chol less than 200 m g/dl low risk Chol 201-239 mg/dl borderline risk Chol 240 mg/dl and greater high risk Cholesterol in LDL [Mass/Vol] 93\S\93 Normal 0-100 [facility] y 250 DO Work Phone: Comment on above: LDL ATP III CLASSIFI CATION LDL less than 100 mg/dL Optimal LDL 100-129 mg/dL Near or above optimal LDL 130-159 mg/dL Borderline high LDL 160-189 mg/dL High LDL greater than 189 mg/dL [facility] Laboratory - Hematology and Cell countsOrdered By: Joana Farooq on 09-06-2021 Nucleated RBC/100 WBC (Bld) [Ratio] 0.1 % 0-0.5 [facility] Lymphocytes Auto (Bld) [#/Vo l]Ordered By: Joana Farooq on 09-06-2021 Lymphocytes (Bld) [#/Vol] 0.6 10*3/uL 1.00-4.8 [facility] Lymphocytes/100 WBC Auto (Bl d)Ordered By: Joana Farooq on 09-06-2021 Lymphocytes/100 WBC (Bld) 10.8 % . [facility] MCH Auto (RBC) [Entitic mass ]Ordered By: Joana Farooq on 09-06-2021 MCH (RBC) [Entitic mass] 29.1 pg 27.5-35.2 [facility] MCHC Auto (RBC) [Mass/Vol]Or dered By: Joana Farooq on 09-06-2021 MCHC (RBC) [Mass/Vol] 33.1 g/dL 32.5-35.6 [facility] MCV Auto (RBC) [Entitic vol] Ordered By: Joana Farooq on 09-06-2021 MCV (RBC) [Entitic vol] 87.9 fL 83.5-101 [facility] Monocytes Auto (Bld) [#/Vol] Ordered By: Joana Farooq on 09-06-2021 Monocytes (Bld) [#/Vol] 0.7 10*3/uL 0.0-0.8 [facility] Monocytes/100 WBC Auto (Bld) Ordered By: Joana Farooq on 09-06-2021 Monocytes/100 WBC (Bld) 11.2 % . [facility] Neutrophils Auto (Bld) [#/Vo l]Ordered By: Joana Farooq on 09-06-2021 Neutrophils (Bld) [#/Vol] 4.1 10*3/uL 1.8-7.7 [facility] Neutrophils/100 WBC Auto (Bl d)Ordered By: Joana Farooq on 09-06-2021 Neutrophils/100 WBC (Bld) 70.8 % . [facility] No Panel Informationon 09-06 3.3\S\3.3 Normal <5.0 [facility] y 250 DO Work Phone: Comment on above: PERFORMED BY:[place] [id number] [place], [place] [id number] MEDICAL DIRECTORAPRIL VEGA M.D. 15\S\15 Normal [facility] y 250 DO Work Phone: 75\S\75 Normal 35-149 [facility] y 250 DO Work Phone: Comment on above: TRIG ATP III CLASSIF ICATION TRIG less than 150 mg/dL Normal TRIG 150-199 mg/dL Borderline high TRIG 200-500 mg/dL High TRIG greater than 500 mg/dL Very high Standard traceable to the Center for Disease Conrtrol and Prevention (CDC) test method. 46\S\46 Normal 29-[address] [facility] 250 DO Work Phone: Comment on above: HDL CHOL ATP-III CLA SSIFICATION Cardiovascular Risk HDL > or equal to 60 mg/dL LOW HDL < 40 mg/dL HIGH No Panel InformationOrdered By: Joana Farooq on 09-06-2021 Estimated GFR () 57 mL/Min [facility] Comment on above: GFR estimated refere nce range: According to KDOQI guidelines, <60 ml/min/1.73m2 is sufficient to diagnose a patient with chronic kidney disease. Pharmacy Creatinine Clearance (Chem N/A [facility] Platelet mean volume Auto (B ld) [Entitic vol]Ordered By: Joana Farooq on 09-06-2021 Platelet mean volume (Bld) [Entitic vol] 7.4 fL 6.6-10.1 [facility] Platelets Auto (Bld) [#/Vol] Ordered By: Joana Farooq on 09-06-2021 Platelets (Bld) [#/Vol] 227 10*3/uL 150-450 [facility] Protein [Mass/volume] in Ser um or PlasmaOrdered By: Joana Farooq on 09-06-2021 Protein [Mass/Vol] 6.5 g/dL 6.1-7.[address] [facility] RBC Auto (Bld) [#/Vol]Ordere d By: Joana Farooq on 09-06-2021 RBC (Bld) [#/Vol] 4.73 10*6/uL 3.90-5.60 [facility] Serum or plasma alanine bartholomew otransferase measurement without P-5'-P (enzymatic activiOrdered By: Joana Farooq on 09-06-2021 ALT No additional P-5'-P [Catalytic activity/Vol] 17 U/L 10-60 [facility] Serum or plasma albumin/glob ulin mass ratioOrdered By: Joana Farooq on 09-06-2021 Albumin/Globulin [Mass ratio] 1.3 {ratio} [facility] Serum or plasma alkaline dorothea sphatase measurement (enzymatic activity/volume)Ordered By: Joana Farooq on 09-06-2021 ALP [Catalytic activity/Vol] 84 U/L 32-92 [facility] Serum or plasma aspartate am inotransferase measurement (enzymatic activity/volume)Ordered By: Joana Farooq on 09-06-2021 AST [Catalytic activity/Vol] 25 U/L 10-42 [facility] Serum or plasma calcium victor m urement (mass/volume)Ordered By: Joana Farooq on 09-06-2021 Calcium [Mass/Vol] 10.4 mg/dL 8.2-10.[address] [facility] Serum or plasma chloride meenakshi surement (moles/volume)Ordered By: Joana Farooq on 09-06-2021 Chloride [Moles/Vol] 101 mmol/L 95-114 [facility] Serum or plasma glucose victor m urement (mass/volume)Ordered By: Joana Farooq on 09-06-2021 Glucose [Mass/Vol] 118 mg/dL 70-[address] [facility] Comment on above: ADA recommended refe rence range Random Glucose Reference Range is dependent on time and content of last meal. Glucose of more than 200 mg/dL in a nonstressed, ambulatory subject supports the diagnosis of Diabetes Mellitus. Serum or plasma high density lipoprotein (HDL) cholesterol measurementOrdered By: Stephanie Burgess on 09-06-2021 Cholesterol in HDL [Mass/Vol] 46 mg/dL 29-71 [facility] Comment on above: HDL CHOL ATP-III CLA SSIFICATION Cardiovascular Risk HDL > or equal to 60 mg/dL LOW HDL < 40 mg/dL HIGH Serum or plasma potassium me asurement (moles/volume)Ordered By: Joana Farooq on 09-06-2021 Potassium [Moles/Vol] 4.3 mmol/L 3.5-5.1 [facility] Serum or plasma sodium measu rement (moles/volume)Ordered By: Joana Farooq on 09-06-2021 Sodium [Moles/Vol] 140 mmol/L 136-[address] [facility] Serum or plasma total biliru bin measurement (mass/volume)Ordered By: Joana Farooq on 09-06-2021 Bilirubin [Mass/Vol] 0.8 mg/dL 0.3-1.2 [facility] Serum or plasma total carbon dioxide measurement (moles/volume)Ordered By: Joana Farooq on 09-06-2021 CO2 [Moles/Vol] 26.5 mmol/L 22.0-30.0 [facility] Serum or plasma total choles terol/high density lipoprotein (HDL) cholesterol mass ratOrdered By: Stephanie Burgess on 09-06-2021 Cholesterol.total/Cho lesterol in HDL [Mass ratio] 3.3 {ratio} <5.0 [facility] Serum or plasma urea nitroge n measurement (mass/volume)Ordered By: Joana Farooq on 09-06-2021 Urea nitrogen [Mass/Vol] 30 mg/dL 9-23 [facility] Serum or plasma uric acid me asurement (mass/volume)Ordered By: Joana Farooq on 09-06-2021 Urate [Mass/Vol] 4.8 mg/dL 2.6-7.2 [facility] Triglyceride [Mass/volume] i n Serum or PlasmaOrdered By: Stephanie Burgess on 09-06-2021 Triglyceride [Mass/Vol] 75 mg/dL 35-149 [facility] Comment on above: TRIG ATP III CLASSIF ICATION TRIG less than 150 mg/dL Normal TRIG 150-199 mg/dL Borderline high TRIG 200-500 mg/dL High TRIG greater than 500 mg/dL Very high Standard traceable to the Center for Disease Conrtrol and Prevention (CDC) test method. Provider Orderson 09-04-2021 Provider Orders [id number] Coding Summaryon 08-31-2021 Coding Summary HTMLBase [id number] HKAPTGHCST1LJR2fnNG1JGxtJ9 VybiAv JufgaYSaKQ15VHw0ZEU5fZkbWD rfgR3klIFoK2b2RgYcVH44zH50 YOrrGUJpJhB1PaYjsuwopIWl D7xcZkNqlHMdEak+PHRhYmxlIH nmQIKdLFpuPIFzErTgyGxxVK2i Rf8yEOYgFAWsmIcfbTFrRaOm h7vfWBKjCLojIC4lxUcnM7KyjY U6NGBqh4e0Eg66sVP+PHRkIHN0 fDdcIUgoq302PkEjz5rlHDE5 aAWyPGtaDLW4M49kc7M2CVOgLI MdEEA2oQE4zY0kbAbrbwkcL7Xs lBHvTuW2MEJ8zHMuxJ1adVgn abxpaM6zFjf+Y92DNA2BOLILSZ 4ZIuu7P3JvJubvjXA+UF88EFHe YO80sBDnsJNlf8gcaXy5FpLb TGVvMMC6pUurYXqct5RdRYIrS7 5bsWQdn6P5DRRweJgbuETeFkZs mIG1zK8dKKlnhcenl0tuupnl Dcuwz7fzdv61dX82E08lLSitZA XqKRO9OZFrKWCzcSpjpq4vzM0r Ii8+FKeis3dvv9cnsBa5FzEn GFIjyeTxiDyjKAK7p0RzJb52X2 HqkRhmu3HyCho3bu84eTYfl8F9 wGA4ZPjlZSTzpF4dTEycAaL5 NCHlGbYjcY46jDQvVEmpGq9saD rynRxvGP3bFXHjvbyjCCDpdX5n DLOtyQFwiOerYJ2aBHMimyaa b605IqHnIAF0BMUelGQpH5IycA 6aTcWiPKXmCRWkH5OmpEGjONwn P631COpsAlA9UUXkbtVuA5Pr LZCykUfaUpL1v3E8Wz6Bc1Uaqh itHSB9FVpkVLA9VdV1NvRdUhL7 J9MeGxc4MKVgoVvjPW5zX1Kw FRKaqjfvyntnyOY5YZDsXHNgtP 59dFEyALhnPv4yo0F8d368FHBq QKQpcW54Qy4fvNqmGKOxfYXY tO4lkcxtl6kzztdmTrMdRTKbXG n2KLb7XCStaCusNgFxTVC4QfL0 VXP6yBWyvU1soFelvdsrlV4x Oyc+S75leC4fHBE7WGH5nvwaBG VlozJzUQ97PT75J7YnGikcbMZu bGU+PCBhcdNifKotPC9aReCd o5cgj7XiXTkmW3VsZWOdGQspNy v9HQAfUHZ5uMM5wR4pGMGvGWzv m7P7gHB9I8MrqiLfqk2sc4yd KFGfQGyjX15jfFQli5M8FCVziX E9SYFqfWfjQqOjmW74Hck+PGNv aDmke0EiSnkoq5spk0dwnZl6 InUkIAMiblPktOzoXZA4h8KhUw 11J43bQHfcKTElRDNrRTSzWHGu zDgrpg6otU8rPl3+PGNvbCB3 iSL4yQ9cGPUbPjN4VYbpX609Mo XeiXSjAmpwd2ewi1ajuQi1EpAs YNRujnQtuLjbIWN1h0OlLq85 L36uMDcmLKNoTRKeTSCmDTRthX fgns0lhP6lVn8+XJ3ll4dgti89 rN62oOJ+ZTOuBVO3qOgaSKbx JARetG1yMAshEaY4BKDkTwInhZ 67nJGrBAhfCf9vrZfnzGypTQ6g SXRhhvtvc358SrFab3toQATj pARkWNqcBUS0R12wx4E4VGKmYX DfJGR1dNG0kY5diBzfohkddUIc xVfetdJubJzcIJfbMYyqC316 IHRvcDsnPlBhdGllbnQgTmFtZT m2H3KjWkz0NLWqbJkcOQ0eiVWk ZLqpYb1pjWkvxBdqHJ2nUAIc rnxet253HxPbb2zdJOQltGIzON nkHVI8J33gd4A1ZJFnIQWvTAI9 yTR8tJ4luNlpoxekaCFsjCfk vdVejNmkVIuaSCifR368VVDktK onSdFgbbUuRHZoiUN7PR33CE64 zMNrr4X9mMG3E8NbNUEvuowp eyvbvFU5CEUeBLEuyH49Ar7oyA fdAj2eQXUtWUB1FTUnqYIyS5Fj aI8sIkJqJLRmKRTgQ5VcgADl RHahJ057FWycReI8JXOnfnDrS2 OcBQYxgSvyPsL1c1Y2Uh6GT9V1 CN32NU42hFHpl6O4zYO8X5Rx OELszazzpqkpqUM7DLNuVIUqaN 70Wx1qlDckWb6gLEAjWPC7GLEj hJQoI3VkkX4zZuVdEJCkNACn R6PsyJRlQEwnC585UYztUwA1LC CjyjJhW7UmYYJehIloBjK5d1I4 Il7XWZu6ZP48TU38vKJqo2L8 cIU4F4EaRKVfjspazeqbqIW6WZ AnBMAosE23Dx5rsVosMj4jJRMv NTA0XLQroWPkU9EcxB9eLiNn ERFsFEHeZ8AgnCLnCUutA025WP loUwH1AQMfahIxM0XzFWGkpXka XlG9b7H2Ma9AGRGbVI04GUL0 kFB6UA52MB67Q7IzVyunqPQrxW U+PHRhYmxlIHdpZHRoPScxMDAl DeYwzJuaUK1cGo0vKOXdCUGo uFjvmBOuRqLdj3qpMMKxKZsgRH 9jsBwqO4LnwRF2PQVjd1q6Yl02 W49jL3WyiAS+PBAxbRA0jIB9 cQ2rUnWgMoV4UZroX273SlOyqB XeAgubo3vbq3lrpUs5AaE5ECCv hzKvgYfhWPJ0d2LdCj99H94r IHdpZHRoPSIxNSUiIHZhbGlnbj 2hcG4yGg2+CFHepQD6lID5tS4k FqMvMtC0DUazW860RcUevKHh Wbfgi2rvg4rwxMt9EuOkVIQiad XkdAolFHY9w2MzWl87A4McvTkj f2LiPyd7bm99gCPwh4G6eTX0 B2EnIFKqmaxveZNuuHdbMN9jGS PcuozyQNYofB6gJAWgP7z4LpDe EcI6MZfeV1YabzE6PRAugBZn QJomYLR4C90fu5N4ZTNxMAMxZO D0kAU6eH2psLjaxcxfuESqxVrj giGovDtuZZuvLVvlN070PKUx bNtjPMTfzU5vAEIsjAJwzXgpIB 8wWZDadvxeCkFKRGKLPEWXIR4S FWoIEKETYCG5L5NoTtd0FECe eUucGN2agFIyLGxxMi6tiJdtwS sbJY5cOOYbpxwzIJQekC8dALJl eRGjdXolNT0aSDLhrjglx082 AxFaGAE2SCQmuCRkN0DdaD8bDu QsOJTsBXJtB8KhmLKlBDyrG580 YUacNdV9UENgdwEnA7LvUHWm nSglDeR9r9D9Bg8sVN7yPE7dML T7NY31FB14xWYpi6I8cKZ5U4Uc CCOufdukrkfglZM9SHLsPXRi rI41cZGbFKtaCm9ej8P5z018CF VhFUYyiZ46Qf0dzSomIXTmwNLC pW4xfwnsm3cevzbqEwKtFEPc REo0QQh6ZJYclGrrOgIqXCW6Bl V8GTA9eXNmvL8udIepafxhkK5i Oyc+DiDjDEFecvM2N7VvXag6 EXKprLukJM3vdKVyRRxzKa1ztB wceWmgYO0oSXZgofqvSCRllO4p OQGjvBTasVzhWM0iLXBkpidg o971VxXiITN6LXTdsQInA9EqkH 1zGtTyJXJtRKCgK6XymUTzNOdp U554XQueTzJ1PCSbjmQbY5Ce WEFutOnrZkG5z9A2Ug4FSYdPDQ 44BH93bUTlt1I3eST2J2JpSAHo sglfmaryrJM1YFGxJYWioD43 kJCzQPxtUm5ev1H3m217WCGiEL LymP27Ku8nfIxuVQKqfCTGeN2i pvtbq7raaqgeOvEaRNQxQFd3 KSz4JUVpzXioJcEeAYR1VxC0KA V5pNGbkC3knLwyplyofX8hUuq+ MlOvfBGusF3tNI81iNTlvRmp ciT2Q6YeXshfnIK+SL34OKTgBZ 86tHLiiEUtc6twpAl5RlBfMBZh HNJ8hRegGUpan5XmGAUaW57f aLZyo1H4AUJdgTqcaHOyGaGrkS E4cM5lOCnlszluf3zdqqksZohj b3noun37hE79X58vUUhuXPKb JGRlHTGpHCAcoNhkpd7goF6lCy 8+QCIcmGQ4sYK8aE1rVsUfDyQ4 BVjtK132RnFudPLkEpoxy5iy g9olhBm2LuPvPPRvyaWbmHusTN Z0d5CjMq77I84kCEbiVISvJIGm ZFEjQXQesNolru1ncD4lBt2+ TO5de4kgra06bX44nJN+PHRkIH R8dRloEHbrGRLtcD7rQScbVeJ4 HRYfPzOdhX54nWKuNXrsRz2y pLsekTrtJO7lXZMrjhrll320Uu Lge9jlZXJifTGxXOxoVNO0R66d c7L8KTMzXBLaVOU8bZF7jS5s bGlnbjogbGVmdDsgdmVydGljYW srBXtoS717QJJixKmpAdJbfWDa P6joagMRBO3yUksaoLS+PHRk DIR6bDgqTZwqJPRjpW1sQQMhQ2 d0EnCtJcO2VPuvF2OmpiY0WQKv gVHtUXAjpPRIwP6tlhcqz9qc htifMuFlZJIyEKu2BKs4JUOpkP axIkQtAVF1RhI5EQM8tAOguA8p hQevqwncuA1bHyy+RklOOjwv dGQ+HLSrTQI5nEtbNIjrQSTreD 2xJABxN5f6HoTxXfT0JQszS4Bc dyF3OCFwfEEuMUHpgCVKsC0g bkojo6bsniyeWvOeBPWyNOv0XK w9TSHtpJklLzMpYIL3HuF9KUD2 sPJtfY2kqSsvppkpbI5bZjw+ TVJOOjwvdGQ+WSWrMJH4nJzyYF dnZCBzoI5jPBSlC6g2MyRpYuV5 JSfrQ1XmgmS2FBZxoLUwFQNw oPGRiN6stxbec6rjtabyYtKfKI GzZVm2WSx2HAMghUfrYqTuGIJ2 KsA1KCK5vUXscT8hnNhlspti mG3kTrp+TIW9ILN1VP90JP71F3 RyPjwvdGFibGU+PHRhYmxlIHdp MTJvKIlsHFWjSiIepLhfTA6s Ym9 (more content not included)... [facility] Consent Formson 08-29-2021 Consent Forms [id number]#1.[facility] Provider Orderson 08-24-2021 Provider Orders [id number]#1.00[facility] XR cervical spine 5V*on XR cervical spine 5V* [id number]) XR/XR cervical spine 5V*: Other chronic pain;Pain in right [facility] Other XR cervical spine 5V* 5 views of thecerv ical spine [facility] Other XR cervical spine 5V* HISTORY: Mid anter ior cervical spine pain. [facility] Other XR cervical spine 5V* COMPARISON: None [facility] Other XR cervical spine 5V* Straightening of c ervical lordosis. [facility] Other XR cervical spine 5V* No acute cervical spine fracture identified. [facility] Other XR cervical spine 5V* 4 mm C3-4 anteroli sthesis present. [facility] Other XR cervical spine 5V* C5-6 and C6-7 mode rate disc space and endplate spurring present. C3-4, C4-5 and C5-6 bilateral bony [facility] Other XR cervical spine 5V* neural foraminal n arrowing present. [facility] Other XR cervical spine 5V* 2 mild facet degen eration present. [facility] Other XR cervical spine 5V* The bony neurofora men are patent. [facility] Other XR cervical spine 5V* The dens is intact. [facility] Other XR cervical spine 5V* The craniocervical junction is unremarkable. [facility] Other XR cervical spine 5V* No paraspinal soft tissue abnormality seen. [facility] Other XR cervical spine 5V* XR/XR cervical spine 5V* [facility] Other XR cervical spine 5V* IMPRESSION: 4 mm C 3-4 anterolisthesis. C5-6 and C6-7 moderate spondylosis. [facility] Other XR cervical spine 5V* Impression dictate d by: Kwasi Tomlin M.D.08/22/2021 4:06 PM [facility] Other XR cervical spine 5V* Dictation Location : [place] [address] [facility] Other XR cervical spine 5V* Transcribed By: CRISTINO Staton 08/22/21 1606 [facility] Other XR cervical spine 5V* Dictated By: Kwasi Tomlin DO 08/22/21 1604 [facility] Other XR cervical spine 5V* Signed By: Dang Nutrabolt Other XR cervical spine 5V* 08/22/21 1606 [facility] Other XR shoulder RT min 2V*on XR shoulder RT min 2V* [facility] Other XR shoulder RT min 2V* [facility] [place] [facility] Other XR shoulder RT min 2V* [address] [facility] Other XR shoulder RT min 2V* [place] [address] [facility] Other XR shoulder RT min 2V* XRay Report [facility] Other XR shoulder RT min 2V* Signed [facility] Other XR shoulder RT min 2V* Patient: Sandra Potter MR#: [id number] [facility] Other XR shoulder RT min 2V* 357 [facility] Other XR shoulder RT min 2V* : 1955 Acct:[id number] [facility] Other XR shoulder RT min 2V* Age/Sex: 66 / M ADM Date: 08/22/21 [facility] Other XR shoulder RT min 2V* Loc: [facility] Room: Type: [facility] Other XR shoulder RT min 2V* Attending Dr: DREW Vogt APRN [facility] Other XR shoulder RT min 2V* Ordering Provider: Geeta Dumont APRN, ISABELLA [facility] Other XR shoulder RT min 2V* Date of Service: 08/22/21 [facility] Other XR shoulder RT min 2V* XR/XR shoulder RT min 2V*: Other chronic pain;Pain in right [facility] Other XR shoulder RT min 2V* shoulder;Cervical pain (nec [facility] Other XR shoulder RT min 2V* Copies to: Geeta Dumont APRN, ISABELLA [facility] Other XR shoulder RT min 2V* Right shoulder 08/22/2021. [place] [employer] Other XR shoulder RT min 2V* CLINICAL DATA: Right shoulder pain and limited range of motion. [facility] Other XR shoulder RT min 2V* FINDINGS: 3 views of the right shoulder were obtained. [facility] Other XR shoulder RT min 2V* No acute fracture or dislocation is identified. Relatively mild degenerative changes are seen. [facility] Other XR shoulder RT min 2V* Findings include subchondral cystic changes at the glenoid. No bony erosion or destruction is [facility] Other XR shoulder RT min 2V* visualized. [facility] Other XR shoulder RT min 2V* XR/XR shoulder RT min 2V* [facility] Other XR shoulder RT min 2V* IMPRESSION: Mild degenerative changes. No acute bony abnormality. [facility] Other XR shoulder RT min 2V* Impression dictated by: Lucius Tavares Jr., M.D.08/22/2021 4:16 PM [facility] Other XR shoulder RT min 2V* Dictation Location: [place] [address] [facility] Other XR shoulder RT min 2V* Transcribed By: CHAPINCITO 08/22/21 [facility]6 [facility] Other XR shoulder RT min 2V* Dictated By: Lucius Tavares Jr, MD 08/22/21 [facility]3 [facility] Other XR shoulder RT min 2V* Signed By: [facility] Other XR shoulder RT min 2V* 08/22/21 [facility]6 [facility] Other Lab - Other Lab Resultson Lab - Other Lab Results [id number]#1.00OTGTIFF [facility] Coding Summaryon 06-28-2021 Coding Summary [employer] 64 GokhvvfdLUe5aFw+PGhlYWQ+PE 0ZCVMaQ68wbFXbsC3FM9zNJZ6L CWNCTFSNXX7CIP0vzNS0CXxrY8 VybiAv TetsxPIaNZ72AWl6OZC1sNhxYB oliW5ahTNiS7l3IjUhER23gH25 WUccEOXpHhE9RgFnvrnvgCRf N8mvLjLbzERaIkq+PHRhYmxlIH ysOGPiFGvuAVFkFbIndWgzGA5i Yn5iPVYwNVXgjBkewBVgUlOt j8gjWLMwPBpdUH1piPchU9VkyM P2QLYrh8d2Bo11pVJ+PHRkIHN0 pGldYFotk644YvDny0apIMU0 uITuBVjrRQU4F47uy2T5UGMlEI HsQGV8sVU5vF0ybXwkylgpU9Fn yESvKbO9INJ8nNHzpC4mgRhm godphO6cAkr+I34HJO9VQJQQAJ 3MBvv2Q2RgQvdynPB+RE84GJLu QI68vRGlvPApl6wphQq0OuQb WSCpJUT8uEypGNkzh3HcLPWyK1 5aqFWkj7W0PIRfkXskqVCyAxGt aPD0bR4qYLbhcnizv7rzqoow Gjgcy5ukhl93tM07R75iOZsvQD AoXSN5BRMmMPZebPvocz1giN4s Ii8+ILtce6wyf7rliXd4JuDb AAEisdZviXrjAWE8m3FpQy58I4 EshLbff1NdDzx4ro50aTRvu7D4 eWQ2MYiwPOJyvN3iOMgnZaE4 BSPqEkTxkR42bWRhLZmzHd5ptG lrpEyhBP9jIWZpmulbCXCueB2m MCNahPKzxOsyLU2dZCWaoswo m562OpEaYZQ6RGRytMGsR3OnoO 6fXfAzCDBnJVBrG0AvtZNbSUbo B075IEpnJrA3SAGjakGoQ3Ut ZRDviMbpVzD0i4S9Vh4Sy7Irfo qeKGO6LWodOJY0AbWyTcGeGpE8 D0BxNfk2QOZarSivGL0gB6Ua QJDkheazbccdoRS5DIXxUPFmzF 33tDOvWMlhIq1yf9G8o455VVGz JLDlpZ52Fq0uiZqdIIUfbVGG zT0gzpker8lzknypDlQpWRYvEJ a3ITu4YSAckLypYgRiNFD9NxB9 GZQ6yLVgyM7spPwtagzfjR3w Oyc+N73goV1jMWH9FJA5dbioYH UvlfDlNZ26YO64N1LrZigsfKMe bGU+XLSmodGokOksNN2qQsSl k9jvd3ZbMFcuX3GtZDYlQMvkCg b2XOYxNXP2aZZ5bM0jIMYvAXav y9M7zGY4R4McuhIdnm0ac7qh CWRlOGseL83lnZDch6V1FKNirY X0OLFhnNyaKyAgsQ52Hmk+PGNv zGvct4ZsGsytn2lcb6hecHv5 KlMwQXDuriTabBbuOCA6k6LtKh 11S64aEEfhKBSpAKDiXJRyQOIu bSarww9mvY9iHh2+PGNvbCB3 wLV5fI9qOQCvSzE7NRdjH819Zz MroUJxZkgjc6wqc3vaiCg9EpQd RHVyixUywYrkXJA0d9KoWu21 K06qIYbbPCEzHAZfADEyZBVkpE kfhm5ocF9uIn7+UJ0kk7efvd91 rP36uAE+YOIaZCC3cOohLFcr XZUdbQ4rIJloJvB6JXSyPoLqkD 00aKApGGgnDg2dmNdliNvcDC2e KGBmnwmlp799OuSmm1nyZYXq pWCfBKqnRUD1J46va9O2LJDeJH PkAVG8yQI1eH4dmPlqgcltlMTg pZjjncNmyYhqJXohSDioM481 IHRvcDsnPlBhdGllbnQgTmFtZT h2N3YpFle7UJReqSajJD5xjBUj AQrwPt8bvZbrhKilZQ5eVBWj ckidf009VvGss7dmBTGctXQwLS fcBNS9W72ce4I3OGRwMCHfRCS5 sJT2mM0gzHorayczeVRyiFbc taVzsQyjCCifWSucR944NLDmtT bfItYytkXvUHZrhSB3NS61JH29 gPWxo4F9yCI3S0WvCILtaahw mxunpUG0GAJxIFSedM24Hj1vqR svIq2bNAAkAOV2UQExhRBkF7Ze uO7rIqLlVDQxUERzO4KyeLOs BRyvV616IFzdUvA0ALBumvMhE4 EvYBFbgXlhGpO4g9G5Od6KH9M4 LC26ZJ91lHSvq8O4dPB8X8Bp NGEmgqcihwobfMH9XBSeNPYjnS 01Lb7zqDhhUr4mVCEvGXO8GRBk wHBkO7DryV4lLnGrIREoAFLf H0MgqOOxSHoqH071FOtaNmH6IM LdoeFmY6XzAPMvtHnjTqL2j7E7 Mw0VIFg5SM29IM03kOAbc8I0 sEA0A4NrPHPaqawcaliuuJP0WJ QeAMNmoR35Vw7ypIodDt2cHCBo DQA0CJNbcUQjU5NmeW0uZwHq VSKuVHNaU7FzsVTiZVlsK757PZ ziXhE7JWZepkIrZ4XnLUKdkEkx SiC4k8S2Xl8VHTWwLB59SRU4 qMC0PE70IE68H6ViYipzlCHiwF U+PHRhYmxlIHdpZHRoPScxMDAl XsUjkWctHC8wCa6yQQNbIPCy wMhxaKEjTzYpl8qeEGKwDXhaTZ 9bmAdpO4UppSK1SYVij6m6Kx04 Z94iB6ZsjWW+GEWkrIB6aXH8 fM0rHwIxAwG5UZzeD681FsGyrV YjRagfb4fpf3skiBw4RkW8TABz hyRgwYgpLTE4o0GvVg74V40f IHdpZHRoPSIxNSUiIHZhbGlnbj 7pgW8hSo3+IXDchPH9dZN6oM7e KrXaVjI6ZDpqP433SbSyqBPr Qsnxt0dsd6uekCh2XsRqGNJbgc UwhKygPSM4b7WxZa51P9EpdJyo d6AgIpv3io76xKAfk4R2sJV6 G6GsJHUngwewqBCdzCqcNA9fIO BwnspyQCDsdN4cMCLaA0j2LmGs PjK2WBfjR7IdepB5FNEbkWLf JEmmMWC1X78jp9E9UVMeWCUmPG T1zLB5iW8qnIkphpgieHMtnLlw zaIhxGlxEChrPEspB553HMHt kOwgLUMflQ3kWTLamWWlbKryBL 6jQYZnlbemAqPNTWSSETIPNU0O WYpZRWNEVHZ4Y1EjEgs3HMJt yNmsYO1lhWWuJRvxEp5vgKxyeI reBZ4lUYDvtgwjYSHbaV2oBZAa xOMnpVhwRZ7rBQUclkbnc189 DhTzXVU4VWBkaXMvC3UxxT6nRu LuPCFmYCWhM9HsoIByQArlH872 YEmvOyC7EIJdvcTzG0PzQMJm qIbxFfP2f6O3Ae3lZY1qWW7cKY K1TW14WD84vUDzj5C2fRX7Q8Pc RINaxkyteadxbMJ4BHFdVKNx sW09mVZcAZyaOa7nx1C6e586NH IcFDYjxV12Wt8jwOxxHVDrfBVT fV0iljpvz9lkwtbsZxTkJQNw XKg5MJc4QIRipNhxNzViTEG9Rf R4AIB8tGAfqU4xlUfweykdcZ8r Oyc+WcJoEMEvkfP6N0QuPgb8 GMGwvYomKN5noYVpISdqRw5wnZ upvGmjDT5xXTBnlqikXHVriA4u QRMbuXKpdYzfLT7cOGOptbzs n505XrCvPBR2NBQejBBaF0GwpK 2pAnInBHDaAWRaJ1OosSIhSDvs J604LBbeBnD8ABXlxkTrD0Yv KITkfUjgKtJ1r9E2Le5YPSzZGW 55QY03zLPmu6C5jQN6X1ToXBDv snllhsiwlYY0OCXjHBThuM52 wMYxWUhcJp1fq9M3b433SOHiZK CdzQ97Ot5chYcoSYPsbXVZjZ2b udeph7fekasuKeLiCGKdXYs2 MDl5RSCpdOxdQwCgGBR3KsH6XD K2rVVeoT9qfDwuzkbmhR2bFoy+ W5X4W9FyIeuxgCW+PC75UYDd UG69nTDnwCTmu4tnsGf3IyZxKD GfRYJ4nVdhZSthv7QyXDUvA21p qBOmk1A3YSSdeIkppDXxEpIq aYW5qH8bZEakatgft4kezzmxGk vgf3fsiz27nO64M33gJKtxSNZd EWJtKTYzVUGcyZgwtj0ykB9x Ii8+VMKohBA5uFR7lG0gRzDhPi K8SKutT604RvPzaLUhNkufs6zy c1txsYa5JeXcOUVppkQkiHzz HCI1m6SrQu07K45cDKwdYIUeXJ PqLREtWOLuxJziuz5qiI6pWc9+ BI5zm8lqqd64vZ71jRG+PHRk HXQ6fBgiVUlsUKKdtU4cZWbgQu C4TFDlBgKgsP55fDItGRmiAg1e mTtdrZgpDT6mKPRimkifw886 EoWah1gjLURioGCoHCtpPIF6G7 9kp5S6PHZmKTAhPSV1sOE1tL9g bGlnbjogbGVmdDsgdmVydGlj JFdmLCbfK456DBQoyPjoHeNyoK McD5dkxxCWVZ2mOzdfuXE+PHRk LCG1tQojTFmeGNZrqF8aOIOd K8w0NxQeAsC0EHugM3OkpfZ4NH VbfHIxQOTwaEZFyL7vruglb3lu bgaxHsTgGQBtKAa1SYe2SAEs kFuzXnJcMLX8TdW3WMW6zNKstL 7yhGnwhmwpkT6xCyo+RklOOjwv dGQ+XEPhMMV7xTadIXasZGEq fF4zYIDtE3x4ZqBzUtC0GQzuH2 DpunB3ZDLzrCMdBSFavPCNmT1j wwufk2jeesczBwAkATZfBQf9 BGj8CWSjiMknIcQrHSD5GgZ3JS W9hSGeqS9njXppickatT9fVbz+ TVJOOjwvdGQ+SGNlUXG2sUds JCurBZWzmJ1xHFLqF1q5JjGlJk R1RBgcS5GuofW8HMNsdZFuPXIn jYCSgZ9pwxeut6wiaphaGvSe MHQxYUk4DVe9OLZerKshBzNlPV V5BzH0XQA0oMRrtB8kkGttcylp jD4oIoz+TLV4BBZ3JX56HJ48 V6VxWecyhXPrrQO+PHRhYmxlIH cjCZCiTTzhEDTzEnSgqAijVH5l Rh4eVYHeSSHxoDdryNBaOxYs b2x (more content not included)... Normal [facility] Calcium, Ionized, Serum LCon 06-23-2021 Calcium, Ionized, Serum LC 6.1 mg/dL High 4.5-5.6 [facility] Comment on above: Result Comment: Perf ormed At: [facility] [address] [place], [place] [id number] Zachary Wade PhD Ph:[phone] Performed By: #### 1 [id number], [id number], [id number], [id number], [id number] ####[facility] (DEFAULT)[address] [place] [address] 98444 PTH, Intact LCon 06-23-2021 PTH, Intact LC 104 pg/mL High 15-65 [facility] Comment on above: Result Comment: Perf ormed At: [facility] [place] [address] [place] [id number] Zachary Wade PhD Ph:[phone] Performed By: #### 1 [id number], [id number], 2999584, [id number], [id number] ####[facility] (DEFAULT)[address] [place] [address] 97202 Provider Orderson 06-23-2021 Provider Orders [id number] Normal [facility] CMP Standardon 06-22-2021 eGFR AA >60 Invalid Interpretation Code [facility] Comment on above: Result Comment: 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 Kidney Failure is indicated at less than 15 ml/min/1.73m2 Performed By: #### 1 [id number], 70797776, 8807744, [id number], [id number] ####[facility] (DEFAULT)[address] [place] [address] 26331 eGFR Non AA >60 Invalid Interpretation Code [facility] Comment on above: Performed By: #### 1 [id number], 24605661, 4534871, [id number], [id number] ####[facility] (DEFAULT)[address] [place] [address] 68835 Albumin [Mass/Vol] 4.3 g/dL Normal 3.5-5.0 [facility] Comment on above: Performed By: #### 1 [id number], 81584767, 4280659, [id number], 6698538 ####[facility] (DEFAULT)[address] [place] [address] Albumin/Globulin [Mass ratio] 1.4 {ratio} Normal 1.4-2.6 [facility] Comment on above: Performed By: #### 1 [id number], 73398574, 0879976, [id number], [id number] ####[facility] (DEFAULT)[address] [place] [address] Alk Phos 70 IU/L Normal 32-91 [facility] Comment on above: Performed By: #### 1 [id number], 31368459, 6902682, [id number], 6973442 ####[facility] (DEFAULT)[address] [place] [address] 71235 ALT [Catalytic activity/Vol] 28.0 U/L Normal 17.0-63.0 [facility] Comment on above: Performed By: #### 1 3203755, 86257157, 2029653, [id number], 0857542 ####[facility] (DEFAULT)[address] [place] [address] 42307 Anion gap [Moles/Vol] 14.0 mmol/L Normal 5.0-19.0 [facility] Comment on above: Performed By: #### 1 4110769, 03441996, 8612883, [id number], 5194154 ####[facility] (DEFAULT)[address] [place] [address] 05656 AST [Catalytic activity/Vol] 36 U/L Normal 15-41 [facility] Comment on above: Performed By: #### 1 3350032, 74521006, 6647870, [id number], 4454485 ####[facility] (DEFAULT)[address] [place] [address] 20667 Bili Total 0.7 mg/dL Normal 0.3-1.2 [facility] Comment on above: Performed By: #### 1 2341931, 97386378, 5261993, [id number], 5230797 ####[facility] (DEFAULT)[address] [place] [address] 86365 Calcium [Mass/Vol] 10.8 mg/dL High 8.9-10.3 [facility] Comment on above: Performed By: #### 1 2787326, 42461405, 4362251, [id number], 1893308 ####[facility] (DEFAULT)[address] [place] [address] 68692 Chloride [Moles/Vol] 107 mmol/L Normal 101-111 [facility] Comment on above: Performed By: #### 1 7672083, 18058728, 9619102, [id number], 4196039 ####[facility] (DEFAULT)[address] [place] [address] 15415 CO2 [Moles/Vol] 26 mmol/L Normal 21-32 [facility] Comment on above: Performed By: #### 1 0397952, 57405155, 7163438, [id number], 1095891 ####[facility] (DEFAULT)[address] [place] [address] 87886 Creatinine [Mass/Vol] 1.09 mg/dL Normal 0.90-1.30 [facility] Comment on above: Performed By: #### 1 2130672, 52976141, 4204859, 8196112266, 7902059 ####[facility] (DEFAULT)[address] [place] [address] 07213 Globulin (S) [Mass/Vol] 3.1 g/dL Normal 1.5-4.3 [facility] Comment on above: Performed By: #### 1 9470376, 89746145, 9327473, [id number], 2497405 ####[facility] (DEFAULT)[address] [place] [address] 27848 Glucose [Mass/Vol] 145.0 mg/dL High 74.0-118.0 [facility] Comment on above: Performed By: #### 1 8910262, 67906693, 4842540, [id number], 9047726 ####[facility] (DEFAULT)[address] [place] [address] 74581 Osmolality 288 mOsm/L Invalid Interpretation Code [facility] Comment on above: Performed By: #### 1 0933757, 41796367, 0166147, [id number], 9346770 ####[facility] (DEFAULT)[address] [place] [address] 20157 Potassium [Moles/Vol] 4.8 mmol/L Normal 3.6-5.1 [facility] Comment on above: Performed By: #### 1 8228931, 95919090, 7088235, [id number], 0286943 ####[facility] (DEFAULT)[address] [place] [address] 16234 Protein [Mass/Vol] 7.4 g/dL Normal 6.5-8.1 [facility] Comment on above: Performed By: #### 1 1617530, 30187564, 4138824, [id number], 3590933 ####[facility] (DEFAULT)[address] [place] [address] 45318 Sodium [Moles/Vol] 142.0 mmol/L Normal 136.0-144 . 0 [facility] Comment on above: Performed By: #### 1 8356460, 87129330, 9102426, [id number], 2982915 ####[facility] (DEFAULT)[address] [place] [address] 08584 Urea nitrogen [Mass/Vol] 19 mg/dL Normal 8-26 [facility] Comment on above: Performed By: #### 1 5617618, 00981864, 0402288, [id number], 3260046 ####[facility] (DEFAULT)[address] [place] [address] 23425 Urea nitrogen/Creatinine [Mass ratio] 17.0 mg/mg High 4.6-16.2 [facility] Comment on above: Performed By: #### 1 1208969, 20353118, 4244463, [id number], 1271219 ####[facility] (DEFAULT)[address] [place] [address] 11054 Calcium, 24Hr Urine LCon Urine Total Volume LC Enter Here Invalid Interpretation Code [facility] Comment on above: Performed By: #### 2 [id number], 86239480, [id number] ####[facility] (DEFAULT)[address] [place] [address] 06305 Creatinine Level Urine Timed on 06-22-2021 Time U Creatinine 24 hr Invalid Interpretation Code [facility] Comment on above: Performed By: #### 2 [id number], 62760736, [id number] ####[facility] (DEFAULT)[address] [place] [address] 24836 TV Creatinine 3800 mL Invalid Interpretation Code [facility] Comment on above: Performed By: #### 2 [id number], 49186763, [id number] ####[facility] (DEFAULT)[address] [place] [address] 66146 Ur Creatinine 37 mg/dL Invalid Interpretation Code [facility] Comment on above: Performed By: #### 2 [id number], 30041118, [id number] ####[facility] (DEFAULT)[address] [place] [address] 16185 UT Creatinine 1406 mg/24hr Normal 600-1800 [facility] Comment on above: Performed By: #### 2 [id number], 47039110, 454017573 ####[facility] (DEFAULT)[address] [place] [address] 58996 Magnesiumon 06-22-2021 Magnesium [Mass/Vol] 2.05 mg/dL Normal 1.80-2.50 [facility] Comment on above: Performed By: #### 1 0171266, 36053606, 5304866, [id number], 6963824 ####[facility] (DEFAULT)[address] [place] [address] 06127 Sodium Level Urine Timedon 0 06-22-2021 Time U Sodium 24 hr Invalid Interpretation Code [facility] Comment on above: Performed By: #### 2 [id number], 91127750, [id number] ####[facility] (DEFAULT)[address] [place] [address] TV Sodium 3800 mL Invalid Interpretation Code [facility] Comment on above: Performed By: #### 2 [id number], 49390212, [id number] ####[facility] (DEFAULT)[address] [place] [address] 52933 Ur Sodium 35 mmol Invalid Interpretation Code [facility] Comment on above: Performed By: #### 2 [id number], [id number], [id number] ####[facility] (DEFAULT)[address] [place] [address] 13800 UT Sodium 133 mmol/day Normal 130-200 [facility] Comment on above: Performed By: #### 2 [id number], 04508074, [id number] ####[facility] (DEFAULT)[address] [place] [address] 85769 Vit D25 OHon 06-22-2021 Vitamin D 25 OH 74 ng/mL Invalid Interpretation Code [facility] Comment on above: Result Comment: In [...] J Clin Endocrinol Metab 2011; 96 (7): 7063-6549. Performed By: #### 1 [id number] ####[facility] (DEFAULT)[address] [place] [address]484 A1C with Estimated Average G [facility] 06-12-2021 HbA1c (Bld) [Mass fraction] 6.9 % 4.3-5.6 [employer] Other HbA1c (Bld) [Mass fraction] 151 % [employer] Other Complete Blood Count Auto Di ffon 06-12-2021 Basophils (Bld) [#/Vol] 0.1 10*3/uL 0.0-0.2 [employer] Other Basophils/100 WBC (Bld) 1.3 % . [employer] Other Eosinophils (Bld) [#/Vol] 0.2 10*3/uL 0.0-0.45 [employer] Other Eosinophils/100 WBC (Bld) 3.2 % . [employer] Other Erythrocyte distribution width (RBC) [Ratio] 16.4 % 12.0-14.8 [employer] Other Hematocrit (Bld) [Volume fraction] 41.7 % 38.8-50.0 [employer] Other Hemoglobin (Bld) [Mass/Vol] 13.7 g/dL 13.0-17.0 [employer] Other Lymphocytes (Bld) [#/Vol] 0.8 10*3/uL 1.00-4.8 [employer] Other Lymphocytes/100 WBC (Bld) 11.2 % . [employer] Other MCH (RBC) [Entitic mass] 28.9 pg 27.5-35.2 [employer] Other MCH (RBC) [Entitic mass] 32.8 pg 32.5-35.6 [employer] Other MCV (RBC) [Entitic vol] 87.9 fL 83.5-101 [employer] Other Monocytes (Bld) [#/Vol] 1.0 10*3/uL 0.0-0.8 [employer] Other Monocytes/100 WBC (Bld) 13.4 % . [employer] Other Neutrophils (Bld) [#/Vol] 5.2 10*3/uL 1.8-7.7 [employer] Other Neutrophils/100 WBC (Bld) 70.9 % . [employer] Other Platelet mean volume (Bld) [Entitic vol] 7.1 fL 6.6-10.1 [employer] Other Platelets (Bld) [#/Vol] 255 10*3/uL 150-450 [employer] Other RBC (Bld) [#/Vol] 4.75 10*6/uL 3.90-5.60 [employer] Other WBC (Bld) [#/Vol] 7.4 10*3/uL 4.1-10.5 [employer] Other Complete Blood Count Auto Diff 7.4 4.5-11.0 [employer] Other Complete Blood Count Auto Diff 0.1 0-0.5 [employer] Other Comprehensive Metabolic Pane anny 06-12-2021 Albumin [Mass/Vol] 4.1 g/dL 3.2-5.5 [employer] Other Albumin/Globulin [Mass ratio] 1.5 {ratio} [employer] Other ALP [Catalytic activity/Vol] 73 U/L 32-92 [employer] Other ALT [Catalytic activity/Vol] 25 U/L 10-60 [employer] Other AST [Catalytic activity/Vol] 38 U/L 10-42 [employer] Other Bilirubin [Mass/Vol] 0.9 mg/dL 0.3-1.2 [facility] [employer] Other Calcium [Mass/Vol] 10.8 mg/dL 8.2-10.2 [facility] [employer] Other Chloride [Moles/Vol] 100 mmol/L 95-114 [facility] [employer] Other CO2 [Moles/Vol] 28.3 mmol/L 22.0-30.0 [facility] [employer] Other Creatinine [Mass/Vol] 1.26 mg/dL 0.64-1.27 [facility] [employer] Other Glucose [Mass/Vol] 104 mg/dL 70-100 [facility] [employer] Other Potassium [Moles/Vol] 4.0 mmol/L 3.5-5.1 [facility] [employer] Other Protein [Mass/Vol] 6.8 g/dL 6.1-7.9 [facility] [employer] Other Sodium [Moles/Vol] 137 mmol/L 136-146 [facility] [employer] Other Urea nitrogen [Mass/Vol] 29 mg/dL 9-23 [facility] [employer] Other Comprehensive Metabolic Panel 58 [facility] [employer] Other Comprehensive Metabolic Panel > 60 [facility] [employer] Other Comprehensive Metabolic Panel 2.7 [facility] [employer] Other Lipid Panelon 06-12-2021 Cholesterol [Mass/Vol] 161 mg/dL 140-200 [facility] [employer] Other Cholesterol in HDL [Mass/Vol] 51 mg/dL 29-71 [facility] [employer] Other Cholesterol in LDL Elph Qn 88 0-100 [facility] [employer] Other Cholesterol.total/Cho lesterol in HDL [Mass ratio] 3.2 {ratio} <5.0 [facility] [employer] Other Lipid Panel 112 35-149 [facility] [employer] Other Lipid Panel 22 [facility] [employer] Other Thyroid Stim Hormone w/Rflxo n 06-12-2021 Thyroid Stim Hormone w/Rflx 1.39 0.45-5.33 [facility] [employer] Other Outside Recordson 01-26-2021 Outside Records [id number]#1.00OTGTI FF [facility] Outside Records [id number]#1.00OTGTI [facility] Tobacco Screening.on 021 Tobacco use status CPHS b) No -[facility]-[place] y 250 DO Work Phone: Outside Recordson 01-13-2021 Outside Records [id number]#1.00OTGTIFF [facility] CT Watchman Full Contraston 01-10-2021 CT Watchman Full Contrast FINAL REPORT Interpreted by: TRICIA REED MD and NANNETTE ALEJO E, MD 01/10/21 10:55 Patient Name: SANDRA POTTER STUDY: CT WATCHMAN FULL CONTRAST; 01/10/2021 8:49 am INDICATION: pre watchman procedure. COMPARISON: No Normal [facility] [address] [place] Work Phone: Laboratory - Chemistry and C hemistry - challengeon 01-10-2021 Glucose [Mass/Vol] 122 mg/dL above high threshold 74 - 99 [facility] [address] [place] Work Phone: No Panel Informationon 01-10 339 {SECONDS} above high threshold 89 - 169 [facility] [address] [place] Work Phone: Comment on above: Note new reference mary mullins as of 06/20/2018. Target ACT range will vary based on the patient population, clinical status, and surgical intervention occurring. [facility] [address] [place] Work Phone: http://[facility] 1:8080 [email or web address]?R etrieveTestByDateTime?Raisa kgzPF=[id number]&Date=&Time=09%3a44%3a54%3a 00&TestType=ECG&Site=1&Out putType=PDF&Ext=PDF [facility] [address] [place] Work Phone: [phone] Atrial fibrillation with slow ventricular response [facility] [address] [place] Work Phone: [phone] Abnormal [facility] [address] [place] Work Phone: [phone] [facility] [address] [place] Work Phone: [phone] [facility] [address] [place] Work Phone: [phone] [facility] [address] [place] Work Phone: [phone] [facility] [address] [place] Work Phone: [phone] [facility] [address] [place] Work Phone: [phone] [facility] [address] [place] Work Phone: [phone] [facility] [address] [place] Work Phone: [phone] [facility] [address] [place] Work Phone: [phone] [facility] [address] [place] Work Phone: [phone] [facility] [address] [place] Work Phone: [phone] [facility] [address] [place] Work Phone: [phone] Cult,Mycobacteriaon 10-11-19 21 Cult,Mycobacteria Specimen Description .BRONCHIAL ALVEOLAR LAVAGE Special Requests .RIGHT MIDDLE LOBE Direct Exam NO ACID FAST BACILLI SEEN (CONCENTRATED SMEAR) Culture NO GROWTH 45 DAYS Report Status FINAL 10/10/2020 [facility] Comment on above: Performed By: #### A FC #### [address] [address] Belly Roller: Chi Layne MD Cult,Funguson 09-26-2020 Cult,Fungus Specimen Description .BRONCHIAL ALVEOLAR LAVAGE Special Requests .RIGHT MIDDLE LOBE Culture NO GROWTH 32 DAYS Report Status FINAL 09/26/2020 [facility] Comment on above: Performed By: #### F C #### [address] [address] Belly Roller: Chi Layne MD Viral Respiratory Culton Viral [...] at day 5 Report Status FINAL 08/31/2020 [facility] Comment on above: Performed By: #### V RESPC #### [address] [address] Belly Roller: Chi Layne MD Cult,Respiratoryon Cult,Respiratory Specimen Description .BRONCHIAL ALVEOLAR LAVAGE Special Requests .RIGHT MIDDLE LOBE Direct Exam MODERATE NEUTROPHILS NO BACTERIA SEEN Culture STAPHYLOCOCCUS AUREUS <10,000 CFU/ML Susceptibility testing not performed on low colony count organisms. Report Status FINAL 08/27/2020 [facility] Comment on above: Performed By: #### R ESPC #### [address] [address] Belly Roller: Chi Layne MD Cytology, Non-GynOrdered By: Ulisses Nieves on 08-25-2020 [facility] Phone: Specimen Description .BRONCHIAL ALVEOLAR LAVAGE [employer] [facility] [employer] Phone: Comment on above: RML [employer] [facility] Phone: Histology St Yoderon 08-25 Histology [facility] (NOTE) -- Diagnosis -- RIGHT MIDDLE [...] NONGYNECOLOGICAL CYTOPATHOLOGY CONSULTATION Patient Name: SANDRA POTTER [facility] Rec: [id number] Path Number: [id number] ANATOMIC PATHOLOGY [address] [place] [phone] Normal [facility] Comment on above: Performed By: #### P PPVS #### [employer] [address] [place] [address] [id number] Belly Roller: Chi Layne MD Non-Nursery Worker Cytologyon Case No: [id number] Normal [facility] Comment on above: Performed By: #### N EMBEDDED DEVELOPER #### [employer] [address] [place] [address] [id number] Belly Roller: Chi Layne MD Specimen Description .BRONCHIAL ALVEOLAR LAVAGE Normal [facility] Comment on above: Result Comment: RML Performed By: #### N EMBEDDED DEVELOPER #### [employer] [address] [place] [address] [id number] Belly Roller: Chi Layne MD POC Glucose FingerstickOrder ed By: Ulisses Nieves on 08-25-2020 Glucose [Mass/Vol] 121 mg/dL High 75 - 110 mg/dL [facility] Phone: Interpretation and review of laboratory results Abnormal [employer] [facility] Phone: [employer] [facility] Phone: COVID-19Ordered By: Justin reyes on 07-24-2020 SARS-CoV-2 (COVID-19) RNA EMILY+probe Ql (Unsp spec) [employer] Phone: SARS-CoV-2 (COVID-19) RNA EMILY+probe Ql (Unsp spec) Not detected Not Detected [employer] [facility] Phone: Comment on above: The specimen is NEGATIVE for SARS-CoV-2, the novel coronavirus associated with COVID-19. A negative result does not rule out COVID-19. Robbie SARS-CoV-2 for use on the [employer]bie [employer]88[employer] is a real-time RT-PCR test intended [...] this assay. Fact sheet for Healthcare Providers: https://www.fda.gov/media/734562/download Fact sheet for Patients: https://www.fda.gov/media/224851/download METHODOLOGY: RT-PCR Source .NASOPHARYNGEAL SWAB [facility] [employer] Phone: [id number] 07-24-2020 SARS-CoV-2 (COVID-19) RNA EMILY+probe Ql (Unsp spec) Normal [facility] Comment on above: Performed By: #### C OVID #### [address] [id number] Belly Roller: Chi Layne MD SARS-CoV-2 (COVID-19) RNA EMILY+probe Ql (Unsp spec) Not detected Normal [facility] Comment on above: Result Comment: The specimen is NEGATIVE for SARS-CoV-2, the novel coronavirus associated with COVID-19. A negative result does not rule out COVID-19. Robbie SARS-CoV-2 for use on the [employer] is a real-time RT-PCR test intended [...] this assay. Fact sheet for Healthcare Providers: https://www.fda.gov/media/167032/download Fact sheet for Patients: https://www.fda.gov/media/311197/download METHODOLOGY: RT-PCR Performed By: #### C OVID #### [address] [id number] Belly Roller: Chi Layne MD SARS-CoV-2 (COVID-19) RNA EMILY+probe Ql (Unsp spec) .NASOPHARYNGEAL SWAB Normal [facility] Comment on above: Performed By: #### C OVID #### [facility] [employer] [address] [place] [address] [id number] Belly Roller: Chi Layne MD [id number] 07-04-2020 SARS-CoV-2 (COVID-19) RNA EMILY+probe Ql (Unsp spec) Normal [facility] Comment on above: Performed By: #### C OVID #### [address] [place] [place], [place] [id number] Belly Roller: Chi Layne MD SARS-CoV-2 (COVID-19) RNA EMILY+probe Ql (Unsp spec) Detected [facility] Comment on above: Result Comment: The specimen is POSITIVE for SARS-Cov-2, the novel coronavirus associated with COVID-19. Robbie SARS-CoV-2 for use on the [employer] is a real-time RT-PCR test intended [...] this assay. Fact sheet for Healthcare Providers: https://www.fda.gov/media/613681/download Fact sheet for Patients: https://www.fda.gov/media/241036/download METHODOLOGY: RT-PCR Results reported to the appropriate Health Department Performed By: #### C OVID #### [address] [id number] Belly Roller: Chi Layne MD [id number] 07-03-2020 SARS-CoV-2 (COVID-19) RNA EMILY+probe Ql (Unsp spec) .NASOPHARYNGEAL SWAB Normal [facility] Comment on above: Performed By: #### C OVID #### [facility] [employer] [address] [place] [address] [id number] Belly Roller: Chi Layne MD Albumin [Mass/volume] in Ser um or Plasmaon 05-04-2020 Albumin [Mass/Vol] 3.7 g/dL 3.2-5.5 [facility] Automated basophil %on 05-04 Basophils/100 WBC (Bld) 0.7 % [facility] Automated basophil counton 0 05-04-2020 Basophils (Bld) [#/Vol] 0.0 10*3/uL 0.0-0.2 [facility] Automated blood lymphocyte c ount (number/volume)on 05-04-2020 Lymphocytes (Bld) [#/Vol] 0.6 10*3/uL 1.00-4.8 [facility] Automated blood lymphocyte c ount as percentage of total leukocyteson 05-04-2020 Lymphocytes/100 WBC (Bld) 10.4 % [facility] Automated blood monocyte cou nton 05-04-2020 Monocytes (Bld) [#/Vol] 0.7 10*3/uL 0.0-0.8 [facility] Automated blood platelet cou nt (count/volume)on 05-04-2020 Platelets (Bld) [#/Vol] 175 10*3/uL 150-450 [facility] Automated blood platelet meenakshi n volume measurementon 05-04-2020 Platelet mean volume (Bld) [Entitic vol] 8.1 fL 6.6-10.1 [facility] Automated eosinophil %on Eosinophils/100 WBC (Bld) 3.7 % [facility] Automated eosinophil counton 05-04-2020 Eosinophils (Bld) [#/Vol] 0.2 10*3/uL 0.0-0.45 [facility] Automated erythrocyte distri bution width ratioon 05-04-2020 Erythrocyte distribution width (RBC) [Ratio] 16.3 % 12.0-14.8 [facility] Automated erythrocyte mean c orpuscular hemoglobin (mass per erythrocyte)on 05-04-2020 MCH (RBC) [Entitic mass] 29.3 pg 27.5-35.2 [facility] Automated erythrocyte mean c orpuscular hemoglobin concentration measurement (mass/volon 05-04-2020 MCHC (RBC) [Mass/Vol] 33.2 g/dL 32.5-35.6 [facility] Automated erythrocyte mean c orpuscular volumeon 05-04-2020 MCV (RBC) [Entitic vol] 88.0 fL 83.5-101 [facility] Automated monocyte %on 05-04 Monocytes/100 WBC (Bld) 12.1 % [facility] Automated neutrophil %on Neutrophils/100 WBC (Bld) 73.1 % [facility] Blood erythrocytes automated count (number/volume)on 05-04-2020 RBC (Bld) [#/Vol] 4.85 10*6/uL 3.90-5.60 [facility] Blood hemoglobin measurement (mass/volume)on 05-04-2020 Hemoglobin (Bld) [Mass/Vol] 14.2 g/dL 13.0-17.0 [facility] Blood leukocytes automated c ount (number/volume)on 05-04-2020 WBC (Bld) [#/Vol] 6.2 10*3/uL 4.5-11.0 [facility] Blood neutrophil count by au tomated method (number/volume)on 05-04-2020 Neutrophils (Bld) [#/Vol] 4.5 10*3/uL 1.8-7.7 [facility] Estimated glomerular filtrat ion rate (GFR) non- Americanon 05-04-2020 GFR/1.73 sq M predicted among non-blacks MDRD (S/P/Bld) [Vol rate/Area] 47 mL/min/{1.73_m2} [facility] Hematocrit [Volume Fraction] of Blood by Automated counton 05-04-2020 Hematocrit (Bld) [Volume fraction] 42.7 % 38.8-50.0 [facility] Otheron 05-04-2020 GFR/1.73 sq M.predicted MDRD (S/P/Bld) [Vol rate/Area] 57 mL/min/{1.73_m2} [facility] Comment on above: GFR estimated refere nce range: According to KDOQI guidelines, <60 ml/min/1.73m2 is sufficient to diagnose a patient with chronic kidney disease. Nucleated RBC/100 WBC (Bld) [Ratio] 0.0 % 0-0.5 [facility] Creatinine Clearance (Chem 68.68 [facility] Protein [Mass/volume] in Ser um or Plasmaon 05-04-2020 Protein [Mass/Vol] 6.5 g/dL 6.1-7.9 [facility] Serum globulin measurement b y calculation (mass/volume)on 05-04-2020 Globulin (S) [Mass/Vol] 2.8 g/dL [facility] Serum or plasma alanine bartholomew otransferase measurement without P-5'-P (enzymatic activion 05-04-2020 ALT No additional P-5'-P [Catalytic activity/Vol] 19 U/L 10-60 [facility] Serum or plasma albumin/glob ulin mass ratioon 05-04-2020 Albumin/Globulin [Mass ratio] 1.3 {ratio} [facility] Serum or plasma alkaline dorothea sphatase measurement (enzymatic activity/volume)on 05-04-2020 ALP [Catalytic activity/Vol] 92 U/L 32-92 [facility] Serum or plasma aspartate am inotransferase measurement (enzymatic activity/volume)on 05-04-2020 AST [Catalytic activity/Vol] 24 U/L 10-42 [facility] Serum or plasma calcium victor m urement (mass/volume)on 05-04-2020 Calcium [Mass/Vol] 10.5 mg/dL 8.2-10.2 [facility] Serum or plasma chloride meenakshi surement (moles/volume)on 05-04-2020 Chloride [Moles/Vol] 104 mmol/L 95-114 [facility] Serum or plasma creatinine m easurement with calculation of estimated glomerular filtron 05-04-2020 Creatinine [Mass/Vol] 1.50 mg/dL 0.64-1.27 [facility] Serum or plasma glucose victor m urement (mass/volume)on 05-04-2020 Glucose [Mass/Vol] 119 mg/dL 70-100 [facility] Comment on above: ADA recommended refe rence rangeRandom Glucose Reference Range is dependent on time and content of last meal. Glucose of more than 200 mg/dL in a nonstressed, ambulatory subject supports the diagnosis of Diabetes Mellitus. Serum or plasma potassium me asurement (moles/volume)on 05-04-2020 Potassium [Moles/Vol] 5.3 mmol/L 3.5-5.1 [facility] Serum or plasma sodium measu rement (moles/volume)on 05-04-2020 Sodium [Moles/Vol] 139 mmol/L 136-146 [facility] Serum or plasma total biliru bin measurement (mass/volume)on 05-04-2020 Bilirubin [Mass/Vol] 0.9 mg/dL 0.3-1.2 [facility] Serum or plasma total carbon dioxide measurement (moles/volume)on 05-04-2020 CO2 [Moles/Vol] 27.8 mmol/L 22.0-30.0 [facility] Serum or plasma urea nitroge n measurement (mass/volume)on 05-04-2020 Urea nitrogen [Mass/Vol] 26 mg/dL 9- [facility] 25-hydroxyvitamin D [Mass/Vo l]on 11-20-2019 25-Hydroxyvitamin D2+25-Hydroxyvitamin D3 [Mass/Vol] 57 ng/mL . [facility] Comment on above: Reference Range:All Ages: Target levels 30 - 100 Reference Range: All Ages: Target levels 30 - 100 25-hydroxyvitamin D2 [Mass/V ol]on 11-20-2019 25-Hydroxycalciferol [Mass/Vol] <1.0 ng/mL . [facility] Comment on above: This test was develo ped and its performance characteristicsdetermined by [facility]. It has not been cleared or approvedby the Food and Drug Administration. This test was develo ped and its performance characteristics determined by [facility]. It has not been cleared or approved by the Food and Drug Administration. 25-hydroxyvitamin D3 [Mass/V ol]on 11-20-2019 Calcidiol [Mass/Vol] 57 ng/mL . [facility] Comment on above: This test was develo ped and its performance characteristicsdetermined by [facility]. It has not been cleared or approvedby the Food and Drug Administration.Performed at: [facility] [id number] [place], [place] [id number] Director: Prasanna Damian MD, Phone: [phone] This test was develo ped and its performance characteristics determined by [facility]. It has not been cleared or approved by the Food and Drug Administration. Performed at: [facility] [address] [place], [place] [id number] Belly Roller: Prasanna Damian MD, Phone: [phone] IgA [Mass/volume] in Serum o r Plasmaon 11-20-2019 IgA [Mass/Vol] 337 mg/dL 61-437 [facility] IgG [Mass/volume] in Serum o r Plasmaon 11-20-2019 IgG [Mass/Vol] 1002 mg/dL [phone] [facility] IgM [Mass/volume] in Serum o r Plasmaon 11-20-2019 IgM [Mass/Vol] 55 mg/dL 20-172 [facility] Comment on above: Performed at: [facility] [place] [address] [id number] Director: Mauro Sharma PhD, Phone: [phone] Performed at: [facility] [address] [place] [address] [id number] Belly Roller: Mauro Sharma PhD, Phone: [phone] Immunoglobulin light chains. kappa.free [Mass/volume] in Serumon 11-20-2019 Immunoglobulin light chains.kappa.free (S) [Mass/Vol] 26.1 mg/L 3.3-19.4 [facility] Immunoglobulin light chains. kappa.free/Immunoglobulin light chains.lambda.free [Teddy 11-20-2019 Immunoglobulin light chains.kappa.free/Imm unoglobulin light chains.lambda.free (S) [Mass ratio] 1.09 0.26-1.65 [facility] Comment on above: Performed at: [facility] [place] [address] [id number] Director: Mauro Sharma PhD, Phone: [phone] Performed at: [facility] [address] [place] [address] [id number] Belly Roller: Mauro Sharma PhD, Phone: [phone] Immunoglobulin light chains. lambda.free [Mass/volume] in Serum or Plasmaon 11-20-2019 Immunoglobulin light chains.lambda.free [Mass/Vol] 24.0 mg/L 5.7-26.3 [facility] Otheron 11-20-2019 Serum Immunofixation Comment: . [facility] Comment on above: Presence of monoclon al protein is unclear at this time. Suggestrepeat in 3 to 6 months if clinically indicated. Presence of monoclon al protein is unclear at this time. Suggest repeat in 3 to 6 months if clinically indicated. Serum or plasma intact parat hyroid hormone measurement (mass/volume)on 11-20-2019 Parathyrin.intact [Mass/Vol] 35.4 pg/mL [facility] Hematologyon 11-10-2019 WBC (Bld) [#/Vol] 6.2 10*3/uL 4.5-11.[address] [facility] [address] CHEST HIGH RESOLUTIONOrde red By: [...] 03/30/2019to be communicated to a licensed caregiver. [facility] Phone: EXAMINATION: CT IMAG ES OF THE [...] inferior aspect of the right bony glenoid. [employer] Work Phone: César, Mhpn Incoming R adiant Results From giddy/Beam. - 03/30/2019 9:12 PM EST EXAMINATION: CT [...] 03/30/2019to be communicated to a licensed caregiver. [facility] Phone: XR CHEST STANDARD (2 VW)Orde red By: Alfonso Wesley on 03-30-2019 No focal airspace consolidation or edema. [facility] Phone: EXAMINATION: TWO XRA Y VIEWS OF THE CHEST 03/30/2019 9:53 am COMPARISON: 04/25/2006 HISTORY: ORDERING SYSTEM PROVIDED HISTORY: SOB (shortness of breath) TECHNOLOGIST PROVIDED HISTORY: Reason for Exam: SOB (shortness of breath) R06.02 (ICD-10-CM); Hemoptysis R04.2 (ICD-10-CM) FINDINGS: The lungs are without acute focal process. No effusion or pneumothorax. The cardiomediastinal silhouette is normal. The osseous structures are intact without acute process. [facility] Phone: César, Mhpn Incoming R adiant Results From giddy/Beam. - 03/30/2019 10:12 AM EST EXAMINATION: TWO [...] IMPRESSION: No focal airspace consolidation or edema. [facility] Phone: Lactate dehydrogenase measur ement (enzymatic activity/volume)on 01-24-2019 LDH (Unsp spec) [Catalytic activity/Vol] 178 U/L 45-190 [facility] Serum or plasma thyroid stim ulating hormone (TSH) measurement by high sensitivity meton 01-31-2018 TSH Qn 4.94 u[iU]/mL 0.45-5.33 [facility] TSH DL <= 0.005 mIU/L Qnon 1 04-02-2017 TSH Qn 4.94 m[IU]/L 0.45-5.33 [facility] Basic Metabolic Panelon 09-15 Anion gap 10 mmol/L Normal 10-20 [facility] Comment on above: Performed By: #### [id number] ####[facility] [id number] [place] [address] Bicarbonate (HCO3) 30 mmol/L Normal 21-32 [facility] Comment on above: Performed By: #### [id number] ####[facility] [id number] [facility] [place] [address] BUN/Creatinine Ratio 22 mg/mg Normal 5-25 [facility] Comment on above: Performed By: #### [id number] ####[facility] [id number] [facility] [place] [address] Calcium 9.6 mg/dL Normal 8.6-10.3 [facility] Comment on above: Performed By: #### [id number] ####[facility] [address] [place] [address] Chloride 108 mmol/L High 98-107 [facility] Comment on above: Performed By: #### 1 [id number] ####[facility] [address] [place] [address] Creatinine 1.60 mg/dL High 0.50-1.30 [facility] Comment on above: Performed By: #### 1 [id number] ####[facility] [address] [place] [address] eGFR (MDRD) 44 mL/min/{1.73_m2} Normal [facility] Comment on above: Result Comment: Inte rpretation for Chronic Kidney Disease:Stages 1&2 >60 Healthy or potential kidney damage.Mild decrease of GFR.Stage 3 30-59 Moderate decrease of GFR.Stage 4 15-29 Severe decrease of GFR.Stage 5 <15 Kidney failure or on dialysis. Performed By: #### 1 [id number] ####[facility] [address] [place] [address] Glucose mass conc 141 mg/dL High 70-100 [facility] Comment on above: Performed By: #### 1 [id number] ####[facility] [address] [place] [address] Potassium molar conc 4.7 mmol/L Normal 3.5-5.1 [facility] Comment on above: Performed By: #### [id number] ####[facility] [address] [facility] [place] [address] Sodium 143 mmol/L Normal 136-145 [facility] Comment on above: Performed By: #### 1 [id number] ####[facility] [address] [place] [address] Urea nitrogen 36 mg/dL High 6-23 [facility] Comment on above: Performed By: #### 1 [id number] ####[facility] [address] [place] [address] Prothrombin Timeon 8 INR Coag RelTime (PPP) 1.68 {INR} High 0.90-1.10 [facility] Comment on above: Result Comment: NATHAN DOE NOTE NEW REFERENCE RANGE EFFECTIVE 2017 Performed By: #### 3 [id number] ####[facility] [address] [place] [address] Prothrombin time (PT) Coag time (PPP) 18.7 s High 9.8-12.7 [facility] Comment on above: Result Comment: NATHAN DOE NOTE NEW REFERENCE RANGE EFFECTIVE 2017 Performed By: #### 3 [id number] ####[facility] [address] [place] [address] Basic Metabolic Panelon Anion gap 14 mmol/L Normal 10-20 [facility] Comment on above: Performed By: #### 1 [id number] ####[facility] [address] [place] [address] Bicarbonate (HCO3) 32 mmol/L Normal 21-32 [facility] Comment on above: Performed By: #### 1 [id number] ####[facility] [address] [place] [address] BUN/Creatinine Ratio 20 mg/mg Normal 5-25 [facility] Comment on above: Performed By: #### 1 [id number] ####[facility] [address] [place] [address] Calcium 9.7 mg/dL Normal 8.6-10.3 [facility] Comment on above: Performed By: #### 1 [id number] ####[facility] [address] [place] [address] Chloride 102 mmol/L Normal 98-107 [facility] Comment on above: Performed By: #### 1 [id number] ####[facility] [address] [facility] [place] [address] Creatinine 1.73 mg/dL High 0.50-1.30 [facility] Comment on above: Performed By: #### 1 [id number] ####[facility] L[address] [facility] [place] [address] eGFR (MDRD) 40 mL/min/{1.73_m2} Normal [facility] Comment on above: Result Comment: Inte rpretation for Chronic Kidney Disease:Stages 1&2 >60 Healthy or potential kidney damage.Mild decrease of GFR.Stage 3 30-59 Moderate decrease of GFR.Stage 4 15-29 Severe decrease of GFR.Stage 5 <15 Kidney failure or on dialysis. Performed By: #### 1 [id number] ####[facility] [address] [place] [address] Glucose mass conc 104 mg/dL High 70-100 [facility] Comment on above: Performed By: #### 1 [id number] ####[facility] [address] [place] [address] Potassium molar conc 3.4 mmol/L Low 3.5-5.1 [facility] Comment on above: Performed By: #### 1 [id number] ####[facility] [address] [facility] [place] [address] Sodium 145 mmol/L Normal 136-145 [facility] Comment on above: Performed By: #### 1 617584 ####[facility] [address]vx[address] [place] [address] Urea nitrogen 34 mg/dL High 6-23 [facility] Comment on above: Performed By: #### 1 [id number] ####[facility] [address] [facility] [place] [address] Prothrombin Timeon 8 INR Coag RelTime (PPP) 1.32 {INR} High 0.90-1.10 [facility] Comment on above: Result Comment: NATHAN DOE NOTE NEW REFERENCE RANGE EFFECTIVE 2017 Performed By: #### 3 [id number] ####[facility] Ail[address] [facility] [place] [address] Prothrombin time (PT) Coag time (PPP) 14.7 s High 9.8-12.7 [facility] Comment on above: Result Comment: NATHAN DOE NOTE NEW REFERENCE RANGE EFFECTIVE 2017 Performed By: #### 3 [id number] ####[facility] [address]mi[address] [place] [address] Basic Metabolic Panelon 09-0 Anion gap 13 mmol/L Normal 10-20 [facility] Comment on above: Performed By: #### 1 [id number] ####[facility] [address] [place] [address] Bicarbonate (HCO3) 31 mmol/L Normal 21-32 [facility] Comment on above: Performed By: #### 1 335130 ####[facility] [address] [place] [address] BUN/Creatinine Ratio 20 mg/mg Normal 5-25 [facility] Comment on above: Performed By: #### 1 [id number] ####[facility] [address] [place] [address] Calcium 9.7 mg/dL Normal 8.6-10.3 [facility] Comment on above: Performed By: #### 1 945741 ####[facility] K[address] [place] [address] Chloride 102 mmol/L Normal 98-107 [facility] Comment on above: Performed By: #### 1 330776 ####[facility] [address]jh[address] [place] [address] Creatinine 1.79 mg/dL High 0.50-1.30 [facility] Comment on above: Performed By: #### 1 [id number] ####[facility] [address] [facility] [place] [address] eGFR (MDRD) 39 mL/min/{1.73_m2} Normal [facility] Comment on above: Result Comment: Inte rpretation for Chronic Kidney Disease:Stages 1&2 >60 Healthy or potential kidney damage.Mild decrease of GFR.Stage 3 30-59 Moderate decrease of GFR.Stage 4 15-29 Severe decrease of GFR.Stage 5 <15 Kidney failure or on dialysis. Performed By: #### 1 [id number] ####[facility] [address] [place] [address] Glucose mass conc 138 mg/dL High 70-100 [facility] Comment on above: Performed By: #### 1 [id number] ####[facility] X[address] [facility] [place] [place] [address] Potassium molar conc 3.7 mmol/L Normal 3.5-5.1 [facility] Comment on above: Performed By: #### 1 [id number] ####[facility] [address] [place] [address] Sodium 142 mmol/L Normal 136-145 [facility] Comment on above: Performed By: #### 1 097913 ####[facility] [address] [place] [address] Urea nitrogen 36 mg/dL High 6-23 [facility] Comment on above: Performed By: #### 1 [id number] ####[facility] [address]sp[address] [place] [address] Prothrombin Timeon 7 INR Coag RelTime (PPP) 1.58 {INR} High 0.85-1.16 [facility] Comment on above: Result Comment: Coum geovanny Therapy:1.5 - 2.0 Low Intensity Therapy2.0 - 3.0 Moderate Intensity Therapy2.5 - 3.5 High (1) Intensity Therapy3.0 - 4.0 High (2) Intensity Therapy Performed By: #### 3 [id number] ####[facility] [address] [place] [address] Prothrombin time (PT) Coag time (PPP) 18.9 s High 11.3-14.5 [facility] Comment on above: Performed By: #### 3 [id number] ####[facility] Sel[address] [place] [address] CBCon 11-07-2016 Erythrocyte distribution width Auto Ratio (RBC) 15.0 % Normal 12.0-15.4 [facility] Comment on above: Performed By: #### 2 [id number] ####[facility] [address] [place] [address] Erythrocytes (RBC) 4.77 10*6/uL Normal 4.08-6.37 [facility] Comment on above: Performed By: #### 2 690751 ####[facility] [address] [place] [address] Hematocrit (HCT) 43.9 % Normal 38.4-54.9 [facility] Comment on above: Performed By: #### 2 836126 ####[facility] Lhy[address] [place] [address] Hemoglobin mass conc (Bld) 14.9 g/dL Normal 12.8-17.7 [facility] Comment on above: Performed By: #### 2 070076 ####[facility] Frt[address] [place] [address] MCH 31.2 pg Normal 27.5-32.9 [facility] Comment on above: Performed By: #### 2 868235 ####[facility] Iah[address] [place] [address] MCHC mass conc (RBC) 33.9 g/dL Normal 30.5-35.4 [facility] Comment on above: Performed By: #### 2 675197 ####[facility] [address] [place] [address] MCV 92.0 fL Normal 83.3-98.2 [facility] Comment on above: Performed By: #### 2 114261 ####[facility] [address] [place] [address] NRBC Absolute 0.00 10*3/uL Normal [facility] Comment on above: Performed By: #### 2 [id number] ####[facility] X[address] [place] [address] NRBC Automated 0.0 /100{WBCs} Normal [facility] Comment on above: Performed By: #### 2 569709 ####[facility] [address]qc[address] [place] [address] Platelet mean volume (PMV) 9.8 fL Low 9.9-12.1 [facility] Comment on above: Performed By: #### 2 187633 ####[facility] [address]xi[address] [facility] [place] [address] Platelets 197 10*3/uL Normal 155-404 [facility] Comment on above: Performed By: #### 2 502954 ####[facility] [address] [facility] [place] [address] RDW SD 50.7 fL High 39.3-48.6 [facility] Comment on above: Performed By: #### 2 601913 ####[facility] [address] [place] [address] WBC (Leukocytes) 5.2 10*3/uL Normal 4.2-11.0 [facility] Comment on above: Performed By: #### 2 475643 ####[facility] Bkx[address] [place] [address] Comprehensive Metabolic Pane anny 11-07-2016 Alanine aminotransferase (ALT) 30 U/L Normal 10-52 [facility] Comment on above: Performed By: #### 1 [id number] ####[facility] Jgs[address] [place] [address] Albumin 4.5 g/dL Normal 3.4-5.0 [facility] Comment on above: Performed By: #### 1 894189 ####[facility] [address]bi[address] [place] [address] Albumin/Globulin Ratio 1.5 {ratio} Normal 0.9-2.4 [facility] Comment on above: Performed By: #### 1 [id number] ####[facility] [address]ip[address] [place] [address] Alkaline phosphatase (ALP) 92 U/L Normal 45-117 [facility] Comment on above: Performed By: #### 1 899147 ####[facility] [address] [facility] [place] [address] Anion gap 12 mmol/L Normal 10-20 [facility] Comment on above: Performed By: #### 1 811319 ####[facility] T[address] [place] [address] Aspartate aminotransferase (AST) 33 U/L Normal 13-39 [facility] Comment on above: Performed By: #### 1 [id number] ####[facility] Ail[address] [facility] [place] [address] Bicarbonate (HCO3) 33 mmol/L High 21-32 [facility] Comment on above: Performed By: #### 1 467882 ####[facility] [address] [facility] [place] [address] Bilirubin (total) 1.2 mg/dL Normal 0.0-1.2 [facility] Comment on above: Performed By: #### 1 [id number] ####[facility] Nur[address] [facility] [place] [address] BUN/Creatinine Ratio 26 mg/mg High 5-25 [facility] Comment on above: Performed By: #### 1 114354 ####[facility] [address] [facility] [place] [address] Calcium 10.2 mg/dL Normal 8.6-10.3 [facility] Comment on above: Performed By: #### 1 671323 ####[facility] [address] [facility] [place] [address] Chloride 100 mmol/L Normal 98-107 [facility] Comment on above: Performed By: #### 1 [id number] ####[facility] [address] [facility] [place] [address] Creatinine 1.76 mg/dL High 0.50-1.30 [facility] Comment on above: Performed By: #### 1 [id number] ####[facility] [address] [facility] [place] [address] eGFR (MDRD) 40 mL/min/{1.73_m2} Normal [facility] Comment on above: Result Comment: Inte rpretation for Chronic Kidney Disease:Stages 1&2 >60 Healthy or potential kidney damage.Mild decrease of GFR.Stage 3 30-59 Moderate decrease of GFR.Stage 4 15-29 Severe decrease of GFR.Stage 5 <15 Kidney failure or on dialysis. Performed By: #### 1 [id number] ####[facility] Jpq[address] [facility] [place] [address] Glucose mass conc 139 mg/dL High 70-100 [facility] Comment on above: Performed By: #### 1 167122 ####[facility] [address] [place] [address] Potassium molar conc 3.2 mmol/L Low 3.5-5.1 [facility] Comment on above: Performed By: #### 1 733052 ####[facility] [address] [place] [address] Protein 7.6 g/dL Normal 6.4-8.2 [facility] Comment on above: Performed By: #### 1 862586 ####[facility] [address] [place] [address] Sodium 142 mmol/L Normal 136-145 [facility] Comment on above: Performed By: #### 1 [id number] ####[facility] [address] [place] [address] Urea nitrogen 46 mg/dL High 6-23 [facility] Comment on above: Performed By: #### 1 535294 ####[facility] [address] [place] [address] Lipid Panelon 11-07-2016 Cholesterol 169 mg/dL Normal <200 [facility] Comment on above: Performed By: #### 1 382954 ####[facility] [address] [place] [address] Cholesterol in VLDL mass conc 30 mg/dL Abnormal <30 [facility] Comment on above: Performed By: #### 1 914826 ####[facility] [address] [place] [address] Cholesterol to HDL Ratio 3.1 {ratio} Normal [facility] Comment on above: Performed By: #### 1 [id number] ####[facility] [address] [place] [address] HDL Cholesterol 55 mg/dL Normal [facility] Comment on above: Result Comment: Norm al Mod Risk High Risk5-9 >48 42-48 <4210- 14 >45 40-45 <4015-19 >38 34-38 <34Adult >39 Performed By: #### 1 [id number] ####[facility] Qu[address] [place] [address] LDL Cholesterol 84 mg/dL Normal <130 [facility] Comment on above: Performed By: #### 1 722719 ####[facility] [address]tw[address] [place] [address] Triglyceride 152 mg/dL Abnormal <150 [facility] Comment on above: Result Comment: 150- 199 Borderline [id number] High>500 Very High Performed By: #### 1 [id number] ####[facility] [address] [place] [address] Vital Signs Date Time Vital Sign Value Performing Clinician Facility 04-30-2023 09:55-0500 Body height 180.34 cm DO Teri Cedilloraymondruss Work Phone: [facility] 04-30-2023 09:55-0500 Body mass index (BMI) [Ratio] 35.2 kg/m2 DO Teri Cedilloraymondruss Work Phone: [facility] 04-30-2023 09:55-0500 Body weight 114.75 kg DO Teri Aragon Work Phone: [facility] 04-30-2023 09:55-0500 Diastolic blood pressure 82 mm[Hg] DO Teri Cedillockruss Work Phone: [facility] 04-30-2023 09:55-0500 Heart rate 88 /min DO Teri Cedilloraymondruss Work Phone: [facility] 04-30-2023 09:55-0500 SaO2% (BldA) [Mass fraction] 98 % DO Teri Cedillocki Work Phone: [facility] 04-30-2023 09:55-0500 Systolic blood pressure 138 mm[Hg] DO Teri Cedillocki Work Phone: [facility] 04-24-2023 09:03-0500 Body height 181.6 cm Sindi Foster MD Work Phone: [facility] 02-07-2024 09:03-0500 Body mass index (BMI) [Ratio] 34.93 kg/m2 Sindi Foster MD Work Phone: [facility] 04-24-2023 09:03-0500 Body weight 115.21 kg Sindi Foster MD Work Phone: [facility] 04-24-2023 09:03-0500 Diastolic blood pressure 93 mm[Hg] Sindi Foster MD Work Phone: [facility] 04-24-2023 09:03-0500 Systolic blood pressure 174 mm[Hg] Sindi Foster MD Work Phone: [facility] 04-18-2023 16:00-0500 Body height 180.34 cm Mina Reilly Other [facility] 04-18-2023 16:00-0500 Body mass index (BMI) [Ratio] 35.53 kg/m2 Mina Reilly Other [facility] [employer] Other 04-18-2023 16:00-0500 Body temperature 97.4 [degF] Mnia Reilly Other [facility] [employer] Other 04-18-2023 16:00-0500 Body weight 115.58 kg Mina Reilly Other [facility] [employer] Other 04-18-2023 16:00-0500 Body weight 115.57 kg Teri Aragon Work Phone: [facility] 04-18-2023 16:00-0500 Diastolic blood pressure 92 mm[Hg] Mina Reilly Other [facility] 04-18-2023 16:00-0500 Respiratory rate 18 /min Mina Reilly Other [facility] [employer] Other 04-18-2023 16:00-0500 SaO2% (BldA) [Mass fraction] 96 % Mina Reilly Other [facility] [employer] Other 04-18-2023 16:00-0500 Systolic blood pressure 155 mm[Hg] Mina Reilly Other [facility] 04-17-2023 10:42-0500 Body height 180.3 cm Viridiana Burgess DO Work Phone: [facility] 04-17-2023 10:42-0500 Body mass index (BMI) [Ratio] 35.43 kg/m2 Viridiana Burgess DO Work Phone: [facility] 04-17-2023 10:42-0500 Body weight 115.21 kg Viridiana Burgess DO Work Phone: [facility] 04-17-2023 10:42-0500 Diastolic blood pressure 80 mm[Hg] Viridiana Burgess DO Work Phone: [facility] 04-17-2023 10:42-0500 Heart rate 77 /min Viridiana Burgess DO Work Phone: [facility] 04-17-2023 10:42-0500 Systolic blood pressure 132 mm[Hg] Viridiana Burgess DO Work Phone: [facility] 04-04-2023 11:30-0500 Body height 180.34 cm Geeta Dumont Other [facility] 04-04-2023 11:30-0500 Body mass index (BMI) [Ratio] 35.84 kg/m2 Geeta Dumont Other [facility] [employer] Other 04-04-2023 11:30-0500 Body weight 116.58 kg Geeta Dumont Other [facility] [employer] Other 04-04-2023 11:30-0500 Body weight 116.57 kg DO Teri Aragon Work Phone: [facility] 04-04-2023 11:30-0500 Diastolic blood pressure 88 mm[Hg] Geeta Dumont Other [facility] 04-04-2023 11:30-0500 Systolic blood pressure 140 mm[Hg] Geeta Dumont Other [facility] 03-20-2023 13:00-0500 Body height 180.34 cm Geeta Dumont Other [facility] 03-20-2023 13:00-0500 Body mass index (BMI) [Ratio] 35.98 kg/m2 Geeta Dumont Other [employer] Other 03-20-2023 13:00-0500 Body weight 117.03 kg Geeta Dumont Other [employer] Other 03-20-2023 13:00-0500 Body weight 117.02 kg DO Teri Aragon Work Phone: [facility] 03-20-2023 13:00-0500 Diastolic blood pressure 86 mm[Hg] Geeta Dumont Other [facility] 03-20-2023 13:00-0500 SaO2% (BldA) [Mass fraction] 100 % Geeta Dumont Other [employer] Other 03-20-2023 13:00-0500 Systolic blood pressure 144 mm[Hg] Geeta Dumont Other [facility] 03-05-2023 11:30-0500 Body height 180.34 cm Geeta Dumont Other [facility] 03-05-2023 11:30-0500 Body mass index (BMI) [Ratio] 34.86 kg/m2 Geeta Dumont Other [facility] [employer] Other 03-05-2023 11:30-0500 Body weight 113.4 kg Geeta Tim Other [employer] Other 03-05-2023 11:30-0500 Body weight 113.39 kg DO Teri Harperi Work Phone: [facility] 03-05-2023 11:30-0500 Diastolic blood pressure 84 mm[Hg] Geeta Dumont Other [facility] 03-05-2023 11:30-0500 SaO2% (BldA) [Mass fraction] 99 % Geeta Tmi Other [employer] Other 03-05-2023 11:30-0500 Systolic blood pressure 150 mm[Hg] Geeta Dumont Other [facility] 02-26-2023 11:48-0500 Body height 180.34 cm DO Teri Harperi Work Phone: [facility] 02-26-2023 11:48-0500 Body mass index (BMI) [Ratio] 34 kg/m2 DO Teri Harperi Work Phone: [facility] 02-26-2023 11:48-0500 Body weight 110.67 kg DO Teri Harperi Work Phone: [facility] 02-26-2023 11:27-0500 Body temperature 97.5 [degF] DO Teri Cedillocki Work Phone: [facility] 02-26-2023 11:27-0500 Diastolic blood pressure 94 mm[Hg] DO Teri Cedillocki Work Phone: [facility] 02-26-2023 11:27-0500 Heart rate 82 /min DO Teri Aragon Work Phone: [facility] 02-26-2023 11:27-0500 Respiratory rate 20 /min DO Teri Aragon Work Phone: [facility] 02-26-2023 11:27-0500 Systolic blood pressure 187 mm[Hg] DO Teri Aragon Work Phone: [facility] 02-21-2023 16:20-0500 Body height 180.34 cm Mina Appiahabundio Other [facility] 02-21-2023 16:20-0500 Body mass index (BMI) [Ratio] 34.75 kg/m2 Mina Tommie Other [employer] Other 02-21-2023 16:20-0500 Body temperature 96.2 [degF] Mina Tommie Other [employer] Other 02-21-2023 16:20-0500 Body weight 113.04 kg Mina Tommie Other [employer] Other 02-21-2023 16:20-0500 Body weight 113.03 kg DO Teri Aragon Work Phone: [facility] 02-21-2023 16:20-0500 Diastolic blood pressure 68 mm[Hg] Mina Tommie Other [facility] 02-21-2023 16:20-0500 Respiratory rate 18 /min Mina Tommie Other [employer] Other 02-21-2023 16:20-0500 SaO2% (BldA) [Mass fraction] 98 % Mina Tommie Other [employer] Other 02-21-2023 16:20-0500 Systolic blood pressure 109 mm[Hg] Mina Reilly Other [facility] 02-18-2023 09:00-0500 Body height 180.34 cm Ingris Lombardo Other [facility] 02-18-2023 09:00-0500 Body mass index (BMI) [Ratio] 34.17 kg/m2 Ingris Lombardo Other [facility] [employer] Other 02-18-2023 09:00-0500 Body weight 111.13 kg Ingris Lombardo Other [facility] 02-18-2023 09:00-0500 Diastolic blood pressure 82 mm[Hg] Ingris Lombardo Other [facility] 02-18-2023 09:00-0500 SaO2% (BldA) [Mass fraction] 96 % Ingris Lombardo Other [facility] [employer] Other 02-18-2023 09:00-0500 Systolic blood pressure 132 mm[Hg] Ingris Lombardo Other [facility] 02-15-2023 12:00-0500 Diastolic blood pressure 87 mm[Hg] DO Teri Duquelaurai Work Phone: [facility] 02-15-2023 12:00-0500 Heart rate 77 /min DO Teri Branalenacki Work Phone: [facility] 02-15-2023 12:00-0500 Respiratory rate 18 /min DO Teri Braniecki Work Phone: [facility] 02-15-2023 12:00-0500 SaO2% (BldA) [Mass fraction] 98 % DO Teri Branalenacki Work Phone: [facility] 02-15-2023 12:00-0500 Systolic blood pressure 152 mm[Hg] DO Teri Aragon Work Phone: [facility] 02-15-2023 08:00-0500 Body temperature 98.5 [degF] DO Teri Aragon Work Phone: [facility] 02-14-2023 21:00-0500 Inhaled oxygen flow rate 6 L/min DO Teri Aragon Work Phone: [facility] 02-14-2023 13:47-0500 Body height 181.61 cm DO Teri Aragon Work Phone: [facility] 02-14-2023 13:47-0500 Body mass index (BMI) [Ratio] 33.6 kg/m2 DO Teri Aragon Work Phone: [facility] 02-14-2023 13:47-0500 Body weight 111 kg DO Teri Aragon Work Phone: [facility] 02-10-2023 12:33-0500 Diastolic blood pressure 75 mm[Hg] [facility] 02-10-2023 12:33-0500 Heart rate 75 /min [facility] 02-10-2023 12:33-0500 Respiratory rate 16 /min [facility] 02-10-2023 12:33-0500 SaO2% (BldA) [Mass fraction] 98 % [facility] 02-10-2023 12:33-0500 Systolic blood pressure 138 mm[Hg] [facility] 02-10-2023 08:00-0500 Body temperature 98 [degF] [facility] 02-10-2023 06:00-05[address] Body [address] [facility] 02-08-2023 15:35-0500 Body height 180.[address] [facility] 02-06-2023 20:00-0500 Diastolic blood pressure 76 mm[Hg] [facility] 02-06-2023 20:00-0500 Heart rate 35 /min [facility] 02-06-2023 20:00-0500 Respiratory rate 16 /min [facility] 02-06-2023 20:00-0500 SaO2% (BldA) [Mass fraction] 98 % [facility] 02-06-2023 20:00-0500 Systolic blood pressure 139 mm[Hg] [facility] 02-06-2023 17:31-0500 Body height 180.[address] [facility] 02-06-2023 17:31-0500 Body weight 117.[address] [facility] 02-06-2023 12:32-0500 Body temperature 97 [degF] [facility] 11-27-2022 14:33-0400 Body temperature 97.9 [degF] GOLDEN Dumont Work Phone: [facility] 11-27-2022 14:33-0400 Body weight 113.39 kg GOLDEN Dumont Work Phone: [facility] 11-27-2022 14:33-0400 Diastolic blood pressure 75 mm[Hg] GOLDEN Dumont Work Phone: [facility] 11-27-2022 14:33-0400 Heart rate 67 /min GOLDEN Dumont Work Phone: [facility] 11-27-2022 14:33-0400 Respiratory rate 16 /min GOLDEN Dumont Work Phone: [facility] 11-27-2022 14:33-0400 SaO2% (BldA) [Mass fraction] 100 % GOLDEN Dumont Work Phone: [facility] 11-27-2022 14:33-0400 Systolic blood pressure 144 mm[Hg] GOLDEN Dumont Work Phone: [facility] 10-11-2022 14:00-0400 Body height 180.34 cm Geeta Dumont Other [employer] Other 10-11-2022 14:00-0400 Body mass index (BMI) [Ratio] 34.31 kg/m2 Geeta Tim Other [employer] Other 10-11-2022 14:00-0400 Body weight 111.59 kg Geeta Tim Other [employer] Other 10-11-2022 14:00-0400 Diastolic blood pressure 82 mm[Hg] Geeta Tim Other [employer] Other 10-11-2022 14:00-0400 SaO2% (BldA) [Mass fraction] 97 % Geeta Tim Other [employer] Other 10-11-2022 14:00-0400 Systolic blood pressure 132 mm[Hg] Geeta Tim Other [employer] Other 09-28-2022 06:55-0400 Body height 182.88 cm [employer] Geeta Tim Work Phone: [facility] 09-28-2022 06:55-0400 Body weight 108.86 kg [employer] Geeta Tim Work Phone: [facility] 09-12-2022 09:00-0400 Body height 180.34 cm Geeta Dumont Other [employer] Other 09-12-2022 09:00-0400 Body mass index (BMI) [Ratio] 35.56 kg/m2 Geeta Tim Other [employer] Other 09-12-2022 09:00-0400 Body weight 115.67 kg Geeta Tim Other [employer] Other 09-12-2022 09:00-0400 Diastolic blood pressure 70 mm[Hg] Geeta Tim Other [employer] Other 09-12-2022 09:00-0400 SaO2% (BldA) [Mass fraction] 97 % Geeta Tim Other [employer] Other 09-12-2022 09:00-0400 Systolic blood pressure 124 mm[Hg] Geeta Tim Other [employer] Other 09-07-2022 09:27-0400 Body height 180.34 cm Teri Aragon Work Phone: [employer] [address] DO Work Phone: 09-07-2022 09:27-0400 Body mass index (BMI) [Ratio] 35.64 kg/m2 Teri Aragon Work Phone: [employer] [address] DO Work Phone: 09-07-2022 09:27-0400 Body surface area Derived from formula 2.34 m2 Teri Aragon Work Phone: [employer] 250 DO Work Phone: 09-07-2022 09:27-0400 Body weight 115.89 kg Teri Aragon Work Phone: [employer] DO Work Phone: 09-07-2022 09:27-0400 Diastolic blood pressure 60 mm[Hg] Teri Aragon Work Phone: [facility] [employer] 250 DO Work Phone: 09-07-2022 09:27-0400 Heart rate 58 /min Teri Aragon Work Phone: [facility] [employer] [address] DO Work Phone: 09-07-2022 09:27-0400 Systolic blood pressure 120 mm[Hg] Teri Aragon Work Phone: [facility] [employer] 250 DO Work Phone: 09-04-2022 08:40-0400 Body height 180.34 cm Sabino Ding Other [employer] Other 09-04-2022 08:40-0400 Body mass index (BMI) [Ratio] 35.28 kg/m2 Sabino Ding Other [employer] Other 09-04-2022 08:40-0400 Body weight 114.76 kg Sabino Ding Other [employer] Other 09-04-2022 08:40-0400 Diastolic blood pressure 76 mm[Hg] Sabino Ding Other [employer] Other 09-04-2022 08:40-0400 Systolic blood pressure 140 mm[Hg] Sabino Ding Other [employer] Other 08-28-2022 08:00-0400 Body height 180.34 cm Geeta Dumont Other [employer] Other 08-28-2022 08:00-0400 Body mass index (BMI) [Ratio] 35.28 kg/m2 Geeta Dumont Other [employer] Other 08-28-2022 08:00-0400 Body weight 114.76 kg Geeta Dumont Other [employer] Other 08-28-2022 08:00-0400 Diastolic blood pressure 82 mm[Hg] Geeta Dumont Other [employer] Other 08-28-2022 08:00-0400 SaO2% (BldA) [Mass fraction] 97 % Geeta Dumont Other [employer] [facility] [employer] Other 08-28-2022 08:00-0400 Systolic blood pressure 162 mm[Hg] Geeta Dumont Other [facility] [employer] Other 07-24-2022 08:39-0400 Diastolic blood pressure 75 mm[Hg] FILTER PRESS TENDER HEADMelecio Dumont Work Phone: [facility] 07-24-2022 08:39-0400 Heart rate 74 /min [employer] PR[employer] TENDER HEADMelecio Reedacher Work Phone: [facility] 07-24-2022 08:39-0400 Respiratory rate 16 /min [employer] T[employer] HEADMelecio Reedacher Work Phone: [facility] 07-24-2022 08:39-0400 SaO2% (BldA) [Mass fraction] 98 % [employer] PR[employer] HEADMelecio Reedacher Work Phone: [facility] 07-24-2022 08:39-0400 Systolic blood pressure 147 mm[Hg] [employer] PR[employer] T[employer] HEADMelecio Reedacher Work Phone: [facility] 07-24-2022 08:00-0400 Inhaled oxygen flow rate 3 L/min [employer] T[employer] HEADMelecio Reedacher Work Phone: [facility] 07-24-2022 07:12-0400 Body height 180.34 cm [employer] PR[employer] T[employer] HEADMelecio Reedacher Work Phone: [facility] 07-24-2022 07:12-0400 Body temperature 97.7 [degF] [employer] PR[employer] TEND[employer] HEADMelecio Ernandezr Work Phone: [facility] 07-24-2022 07:12-0400 Body weight 104.32 kg GOLDEN Ernandezr Work Phone: [facility] 06-05-2022 09:38-0400 Diastolic blood pressure 71 mm[Hg] GOLDEN Reedacher Work Phone: [facility] 06-05-2022 09:38-0400 Heart rate 53 /min [employer] HEADMelecio Dumont Work Phone: [facility] 06-05-2022 09:38-0400 Respiratory rate 16 /min GOLDEN Ernandezr Work Phone: [facility] 06-05-2022 09:38-0400 SaO2% (BldA) [Mass fraction] 98 % [employer] T[employer] HEADMelecio Dumont Work Phone: [facility] 06-05-2022 09:38-0400 Systolic blood pressure 129 mm[Hg] GOLDEN Reedacher Work Phone: [facility] 06-05-2022 09:00-0400 Inhaled oxygen flow rate 3 L/min [employer] PR[employer] T[employer] HEADMelecio Dumont Work Phone: [facility] 06-05-2022 07:49-0400 Body height 181.61 cm [employer] PR[employer] T[employer] HEADMelecio Dumont Work Phone: [facility] 06-05-2022 07:49-0400 Body weight 102.05 kg GOLDEN Dumont Work Phone: [facility] 05-08-2022 10:30-0500 Diastolic blood pressure 74 mm[Hg] GOLDEN Dumont Work Phone: [facility] 05-08-2022 10:30-0500 Heart rate 55 /min [employer] T[employer] HEADMelecio Dumont Work Phone: [facility] 05-08-2022 10:30-0500 Respiratory rate 16 /min [employer] PR[employer] T[employer]ER HEADMelecio Dumont Work Phone: [facility] 05-08-2022 10:30-0500 SaO2% (BldA) [Mass fraction] 97 % [employer] T[employer] HEADMelecio Dumont Work Phone: [facility] 05-08-2022 10:30-0500 Systolic blood pressure 134 mm[Hg] FIL[employer] PR[employer] T[employer] HEADMelecio Dumont Work Phone: [facility] 05-08-2022 09:51-0500 Inhaled oxygen flow rate 3 L/min [employer] PR[employer] T[employer] HEADMelecio Dumont Work Phone: [facility] 05-08-2022 08:56-0500 Body height 182.88 cm [employer] PR[employer] T[employer] HEADMelecio Dumont Work Phone: [facility] 05-08-2022 08:56-0500 Body temperature 97.7 [degF] GOLDEN Dumont Work Phone: [facility] 05-08-2022 08:56-0500 Body weight 106.59 kg FILTER PR[employer] TENDER HEADMelecio Dumont Work Phone: [facility] 04-26-2022 11:00-0500 Body height 180.34 cm Lavon Sandoval Other [employer] Other 04-26-2022 11:00-0500 Body mass index (BMI) [Ratio] 32.07 kg/m2 Lavon Sandoval Other [employer] Other 04-26-2022 11:00-0500 Body weight 104.33 kg Lavon Sandoval Other [facility] [employer] Other 04-03-2022 11:08-0500 Diastolic blood pressure 85 mm[Hg] [employer] Geeta Charissaritaacher Work Phone: [facility] 04-03-2022 11:08-0500 Heart rate 66 /min FILTER PR[employer] TENDER HEADMelecio ChangGeeta Charissaritaacher Work Phone: [facility] 04-03-2022 11:08-0500 Respiratory rate 18 /min [employer] Geeta Charissaritaacher Work Phone: [facility] 04-03-2022 11:08-0500 SaO2% (BldA) [Mass fraction] 98 % [employer] Geeta Charissartiaacher Work Phone: [facility] 04-03-2022 11:08-0500 Systolic blood pressure 137 mm[Hg] [employer] Geeta Charissaritaacher Work Phone: [facility] 04-03-2022 08:11-0500 Body height 180.34 cm [employer] Geeta Charissaritaacher Work Phone: [facility] 04-03-2022 08:11-0500 Body temperature 98 [degF] [employer] Geeta Reedacher Work Phone: [facility] 04-03-2022 08:11-0500 Body weight 108.86 kg [employer] Geeta Charissaritaacher Work Phone: [facility] 04-02-2022 12:30-0500 Body height 180.34 cm Geeta Dumont Other [employer] [facility] [employer] Other 04-02-2022 12:30-0500 Body mass index (BMI) [Ratio] 33.19 kg/m2 Geeta Dumont Other [employer] Other 04-02-2022 12:30-0500 Body temperature 98.2 [degF] Geeta Dumont Other [employer] Other 04-02-2022 12:30-0500 Body weight 107.96 kg Geeta Dumont Other [employer] Other 04-02-2022 12:30-0500 Diastolic blood pressure 70 mm[Hg] Geeta Dumont Other [employer] Other 04-02-2022 12:30-0500 Respiratory rate 18 /min Geeta Dumont Other [employer] Other 04-02-2022 12:30-0500 SaO2% (BldA) [Mass fraction] 98 % Geeta Dumont Other [employer] Other 04-02-2022 12:30-0500 Systolic blood pressure 122 mm[Hg] Geeta Dumont Other [employer] Other 01-25-2022 09:52-0500 Body height 180.34 cm Teri Aragon Work Phone: [employer] DO Work Phone: 01-25-2022 09:52-0500 Body mass index (BMI) [Ratio] 33.33 kg/m2 Teri Aragon Work Phone: [employer] DO Work Phone: 01-25-2022 09:52-0500 Body surface area Derived from formula 2.27 m2 Teri Aragon Work Phone: [employer] [place] [facility] 250 DO Work Phone: 01-25-2022 09:52-0500 Body weight 108.41 kg Teri Diane Aundrea Work Phone: [facility] 250 DO Work Phone: 01-25-2022 09:52-0500 Diastolic blood pressure 70 mm[Hg] Teri Diane Aundrea Work Phone: [facility] DO Work Phone: 01-25-2022 09:52-0500 Heart rate 52 /min Teri Aragon Work Phone: [facility] 250 DO Work Phone: 01-25-2022 09:52-0500 Systolic blood pressure 122 mm[Hg] Teri Diane Duquealenaraymondruss Work Phone: [facility] 250 DO Work Phone: 12-21-2021 09:07-0400 Body height 182.88 cm PHYSICIAN [facility] 12-21-2021 09:07-0400 Body mass index (BMI) [Ratio] 31.8 kg/m2 PHYSICIAN [facility] 12-21-2021 09:07-0400 Body weight 106.59 kg PHYSICIAN [facility] 12-21-2021 08:34-0400 Body temperature 97.2 [degF] PHYSICIAN [facility] 12-21-2021 08:34-0400 Diastolic blood pressure 94 mm[Hg] PHYSICIAN [facility] 12-21-2021 08:34-0400 Heart rate 73 /min PHYSICIAN [facility] 12-21-2021 08:34-0400 Respiratory rate 18 /min PHYSICIAN [facility] 12-21-2021 08:34-0400 Systolic blood pressure 172 mm[Hg] PHYSICIAN [facility] 12-15-2021 09:00-0400 Body height 180.34 cm Geeta Dumont Other [employer] Other 12-15-2021 09:00-0400 Body mass index (BMI) [Ratio] 32.35 kg/m2 Geeta Derekacher Other [employer] Other 12-15-2021 09:00-0400 Body weight 105.24 kg Geeta Derekacher Other [employer] Other 12-15-2021 09:00-0400 Diastolic blood pressure 77 mm[Hg] Geeta Derekacher Other [employer] Other 12-15-2021 09:00-0400 SaO2% (BldA) [Mass fraction] 97 % Geeta Derekacher Other [employer] Other 12-15-2021 09:00-0400 Systolic blood pressure 135 mm[Hg] Geeta Derekacher Other [employer] Other 11-27-2021 11:30-0400 Body height 180.34 cm Geeta Derekacher Other [employer] Other 11-27-2021 11:30-0400 Body mass index (BMI) [Ratio] 32.35 kg/m2 Geeta Derekacher Other [employer] Other 11-27-2021 11:30-0400 Body weight 105.24 kg Geeta Derekacher Other [employer] Other 11-27-2021 11:30-0400 Diastolic blood pressure 80 mm[Hg] Geeta Derekacher Other [employer] Other 11-27-2021 11:30-0400 SaO2% (BldA) [Mass fraction] 97 % Geeta Dumont Other [employer] Other 11-27-2021 11:30-0400 Systolic blood pressure 110 mm[Hg] Geeta Dumont Other [employer] Other 11-10-2021 09:32-0400 Body height 182.88 cm DO Francisco Li Work Phone: [facility] 11-10-2021 09:32-0400 Body temperature 97.6 [degF] DO Francisco Li Work Phone: [facility] 11-10-2021 09:32-0400 Body weight 106.45 kg DO Francisco Li Work Phone: [facility] 11-10-2021 09:32-0400 Diastolic blood pressure 86 mm[Hg] DO Francisco Li Work Phone: [facility] 11-10-2021 09:32-0400 Heart rate 51 /min DO Francisco Li Work Phone: [facility] 11-10-2021 09:32-0400 Respiratory rate 18 /min DO Francisco Li Work Phone: [facility] 11-10-2021 09:32-0400 SaO2% (BldA) [Mass fraction] 97 % DO Francisco Li Work Phone: [facility] 11-10-2021 09:32-0400 Systolic blood pressure 164 mm[Hg] DO Francisco Li Work Phone: [facility] 10-30-2021 11:30-0400 Body height 180.34 cm Geeta Dumont Other [employer] Other 10-30-2021 11:30-0400 Body mass index (BMI) [Ratio] 33.05 kg/m2 Geeta Tim Other [employer] Other 10-30-2021 11:30-0400 Body weight 107.5 kg Geeta Carringtonrick Other [employer] Other 10-30-2021 11:30-0400 Diastolic blood pressure 64 mm[Hg] Geeta Tim Other [employer] Other 10-30-2021 11:30-0400 Systolic blood pressure 110 mm[Hg] Geeta Tim Other [employer] Other 09-24-2021 16:00-0400 Body temperature 98.5 [degF] DO Francisco Li Work Phone: [facility] 09-24-2021 16:00-0400 Diastolic blood pressure 70 mm[Hg] DO Francisco Li Work Phone: [facility] 09-24-2021 16:00-0400 Heart rate 61 /min DO Francisco Li Work Phone: [facility] 09-24-2021 16:00-0400 SaO2% (BldA) [Mass fraction] 97 % DO Francisco Li Work Phone: [facility] 09-24-2021 16:00-0400 Systolic blood pressure 122 mm[Hg] DO Francisco Li Work Phone: [facility] 09-24-2021 12:00-0400 Respiratory rate 16 /min DO Francisco Li Work Phone: [facility] 09-24-2021 05:44-0400 Body weight 105.3 kg DO Francisco Li Work Phone: [facility] 09-23-2021 21:30-0400 Inhaled oxygen flow rate 6 L/min DO Francisco Li Work Phone: [facility] 09-22-2021 15:07-0400 Body height 180.34 cm DO Francisco Li Work Phone: [facility] 09-22-2021 15:07-0400 Body mass index (BMI) [Ratio] 32.8 kg/m2 DO Francisco Li Work Phone: [facility] 09-06-2021 00:00-0400 93 1 No PCP None -[facility] 250 DO Work Phone: Comment on above: [id number] 08-22-2021 14:00-0400 Body height 180.34 cm Geeta Dumont Other [employer] Other 08-22-2021 14:00-0400 Body mass index (BMI) [Ratio] 32.49 kg/m2 Geeta Dumont Other [employer] Other 08-22-2021 14:00-0400 Body weight 105.69 kg Geeta Dumont Other [employer] Other 08-22-2021 14:00-0400 Diastolic blood pressure 70 mm[Hg] Geeta Dumont Other [employer] Other 08-22-2021 14:00-0400 SaO2% (BldA) [Mass fraction] 99 % Geeta Dumont Other [employer] Other 08-22-2021 14:00-0400 Systolic blood pressure 120 mm[Hg] Geeta Dumont Other [employer] Other 06-12-2021 09:30-0400 Body height 180.34 cm Geeta Carringtonrick Other [employer] Other 06-12-2021 09:30-0400 Body mass index (BMI) [Ratio] 33.61 kg/m2 Geeta Carringtonrick Other [employer] Other 06-12-2021 09:30-0400 Body weight 109.32 kg Geeta Carringtonrick Other [employer] Other 06-12-2021 09:30-0400 Diastolic blood pressure 80 mm[Hg] Geeta Carringtonrick Other [employer] Other 06-12-2021 09:30-0400 SaO2% (BldA) [Mass fraction] 98 % Geeta Tim Other [employer] Other 06-12-2021 09:30-0400 Systolic blood pressure 118 mm[Hg] Geeta Reedmarian Other [employer] Other 01-25-2021 08:49-0500 Body height 180.34 cm Francisco Li Work Phone: [employer] [address] DO Work Phone: 01-25-2021 08:49-0500 Body mass index (BMI) [Ratio] 33.89 kg/m2 Francisco Li Work Phone: [employer] DO Work Phone: 01-25-2021 08:49-0500 Body surface area Derived from formula 2.29 m2 Francisco Li Work Phone: [employer] [place] [facility] 250 DO Work Phone: 01-25-2021 08:49-0500 Body weight 110.22 kg Francisco Danny Li Work Phone: [facility] 250 DO Work Phone: 01-25-2021 08:49-0500 Diastolic blood pressure 76 mm[Hg] Francisco Danny Li Work Phone: [facility] 250 DO Work Phone: 01-25-2021 08:49-0500 Heart rate 51 /min Francisco Danny Li Work Phone: [facility] 250 DO Work Phone: 01-25-2021 08:49-0500 Systolic blood pressure 140 mm[Hg] Francisco Li Work Phone: [facility] 250 DO Work Phone: 12-07-2020 09:07-0400 Diastolic blood pressure 71 mm[Hg] Francisco Danny Li Work Phone: HI-Cmfbacgblw-FFR [facility] [address] [place] Work Phone: 12-07-2020 09:07-0400 Systolic blood pressure 133 mm[Hg] Francisco Li Work Phone: RV-Mcpypeldgw-JYU [facility] [address] [place] Work Phone: 12-07-2020 09:05-0400 Body height 180.34 cm Francisco Danny Li Work Phone: KS-Qwpzchfoww-RNG [facility] [address] [place] Work Phone: 12-07-2020 09:05-0400 Body mass index (BMI) [Ratio] 34.73 kg/m2 Francisco Li Work Phone: OL-Zobjvxotrp-HNT [facility] [address] [place] Work Phone: 12-07-2020 09:05-0400 Body surface area Derived from formula 2.31 m2 Francisco Danny Li Work Phone: VS-Wwhonsachg-WBU [facility] [address] [place] Work Phone: 12-07-2020 09:05-0400 Body temperature 96.6 [degF] Francisco Danny Li Work Phone: DN-Reljpwcdwn-YPT [facility] [address] [place] Work Phone: 12-07-2020 09:05-0400 Body weight 112.95 kg Francisco Danny Li Work Phone: KI-Zwgnabrnqh-QVF [facility] [address] [place] Work Phone: 12-07-2020 09:05-0400 Diastolic blood pressure 76 mm[Hg] Francisco Li Work Phone: BL-Njgtjouyml-FFX [facility] [address] [place] Work Phone: 12-07-2020 09:05-0400 Heart rate 63 /min Francisco Li Work Phone: UW-Gimuivpvlr-ODR [facility] [address] [place] Work Phone: 12-07-2020 09:05-0400 Respiratory rate 16 /min Francisco Li Work Phone: TX-Vwfbvwqjuu-QAF [facility] [address] [place] Work Phone: 12-07-2020 09:05-0400 SaO2% (BldA) [Mass fraction] 96 % Francisco Li Work Phone: SC-Kwrrmkffph-XSD [facility] [address] [place] Work Phone: 12-07-2020 09:05-0400 Systolic blood pressure 137 mm[Hg] Francisco Li Work Phone: AN-Xuuoppyqbt-AVF [facility] [address] [place] Work Phone: 08-25-2020 14:00-0400 Diastolic blood pressure 93 mm[Hg] Ulisses Nieves MD Work Phone: [employer] Work Phone: 08-25-2020 14:00-0400 Heart rate 64 /min Ulisses Nieves MD Work Phone: [employer] Work Phone: 08-25-2020 14:00-0400 Respiratory rate 10 /min Ulisses Nieves MD Work Phone: [employer] Work Phone: 08-25-2020 14:00-0400 SaO2% (BldA) [Mass fraction] 96 % Ulisses Nieves MD Work Phone: [employer] Work Phone: 08-25-2020 14:00-0400 Systolic blood pressure 133 mm[Hg] Ulisses Nieves MD Work Phone: [employer] Work Phone: 08-25-2020 13:29-0400 Body temperature 97 [degF] Ulisses Nieves MD Work Phone: [employer] Work Phone: 08-25-2020 11:17-0400 Body height 182.9 cm Ulisses Nieves MD Work Phone: [employer] Work Phone: 08-25-2020 11:17-0400 Body mass index (BMI) [Ratio] 33.23 kg/m2 Ulisses Nieves MD Work Phone: [employer] Work Phone: 08-25-2020 11:17-0400 Body weight 111.13 kg Ulisses Nieves MD Work Phone: [employer] Work Phone: 08-22-2020 14:29-0400 Body height 182.9 cm Stvz 1 [employer] Work Phone: 08-22-2020 14:29-0400 Body mass index (BMI) [Ratio] 33.23 kg/m2 [facility] [employer] [facility] Phone: 08-22-2020 14:29-0400 Body temperature 96.4 [degF] Stv[facility] 1 [employer] [facility] Phone: 08-22-2020 14:29-0400 Body weight 111.13 kg [facility] 1 [employer] [facility] Phone: 08-22-2020 14:29-0400 Diastolic blood pressure 70 mm[Hg] Stvz 1 [employer] [facility] Phone: 08-22-2020 14:29-0400 Heart rate 48 /min Stvz 1 [employer] [facility] Phone: 08-22-2020 14:29-0400 Respiratory rate 20 /min Stvz 1 [employer] [facility] Phone: 08-22-2020 14:29-0400 SaO2% (BldA) [Mass fraction] 97 % Stv[facility] 1 [employer] [facility] Phone: 08-22-2020 14:29-0400 Systolic blood pressure 132 mm[Hg] Stvz 1 [employer] [facility] Phone: 05-12-2020 09:18-0500 Body Temperature 97.6 [degF] [facility] 05-12-2020 09:18-0500 Body weight 122.42 kg [facility] 05-12-2020 09:18-0500 BP Diastolic 83 mm[Hg] [facility] 05-12-2020 09:18-0500 BP Systolic 148 mm[Hg] [facility] 05-12-2020 09:18-0500 Height 182.88 cm [facility] 05-12-2020 09:18-0500 Pulse (Heart Rate) 58 /min [facility] 05-12-2020 09:18-0500 Pulse Oximetry 94 % [facility] 05-12-2020 09:18-0500 Respiratory Rate 20 /min Francisco Li [facility] Encounters Encounter Date Encounter Type Care Provider Facility Start: 04-30-2023 End: 04-30-2023 ambulatory DO Teri Aragon Work Phone: [facility] Work Phone: Start: 04-30-2023 End: 04-30-2023 Patient encounter procedure DO Teri Aragon Work Phone: [facility] Work Phone: Start: 04-24-2023 Chart abstracting Sindi salmeron MD Work Phone: [facility] Start: 04-24-2023 End: 04-24-2023 ambulatory SINDI FOSTER Not Available Start: 04-24-2023 End: 04-24-2023 Office outpatient visit 15 minutes Sindi Foster MD Work Phone: [facility] Comment on above: 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) Start: 04-18-2023 End: 04-18-2023 ambulatory Mina Reilly Other [employer] Other Start: 04-18-2023 Office outpatient vi sit 25 minutes Mina Reilly [facility] Start: 04-17-2023 End: 04-17-2023 ambulatory Geeta Dumont Facility:[facility] Start: 04-17-2023 Encounter for other preprocedural examination [facility] Start: 04-17-2023 End: 04-17-2023 Encounter for other preprocedural examination [facility] Start: 04-17-2023 End: 04-17-2023 ambulatory DO Teri Aragon Work Phone: [facility] Work Phone: Start: 04-17-2023 End: 04-18-2023 Patient encounter procedure DO Teri Cedilloraymondruss Work Phone: [facility] [place] Work Phone: Start: 04-17-2023 End: 04-17-2023 Office outpatient visit 25 minutes Viridiana Burgess DO Work Phone: [facility] Comment on above: Preoperative clearan ce; Amputation of right great toe (CMS/HCC); Atherosclerosis of [place] coronary artery of [place] heart without angina pectoris; Chronic atrial fibrillation (CMS/HCC); Mild hypertrophic obstructive cardiomyopathy (CMS/HCC); Status post angioplasty; Hyperlipidemia, unspecified hyperlipidemia type; Essential hypertension; Presence of Watchman left atrial appendage closure device; Former smoker Start: 04-17-2023 End: 04-17-2023 Preoperative state Viridiana Burgess DO Work Phone: [facility] Start: 04-05-2023 End: 04-05-2023 ambulatory Geeta Dumont Other [employer] Other Start: 04-05-2023 Telephone encounter Geeta Henry [facility] Start: 04-04-2023 End: 04-04-2023 ambulatory Geeta Dumont Facility:[facility] Start: 04-04-2023 End: 04-04-2023 Patient encounter procedure DO Teri Aragon Work Phone: [facility]-Lab Main [place] Work Phone: Start: 04-04-2023 End: 04-04-2023 ambulatory DO Teri Aragon Work Phone: [facility] Work Phone: Start: 04-04-2023 End: 04-04-2023 Patient encounter procedure DO Teri Aragon Work Phone: [facility]- Start: 03-28-2023 End: 03-28-2023 ambulatory WEI SOTO Not Available Start: 03-27-2023 End: 03-27-2023 ambulatory Sindi Foster Jr Facility:[facility] Start: 03-27-2023 End: 03-27-2023 ambulatory DO Teri Harperi Work Phone: [facility] Work Phone: Start: 03-27-2023 End: 03-27-2023 Patient encounter procedure DO Teri Harperi Work Phone: [facility]XRay Main [place] Work Phone: Start: 03-25-2023 End: 03-25-2023 ambulatory Geeta Dumont Other [employer] Other Start: 03-25-2023 Telephone encounter Geeta Henry [facility] Start: 03-22-2023 End: 03-22-2023 ambulatory Alton Espinoza Facility:[facility] Start: 03-22-2023 End: 03-22-2023 ambulatory DO Teri Harperi Work Phone: [facility] Work Phone: Start: 03-22-2023 End: 03-22-2023 Patient encounter procedure DO Teri Harperi Work Phone: [facility]-Ultrasound Main [place] Work Phone: Start: 03-20-2023 Office outpatient vi sit 25 minutes Geeta Dumont [facility] Start: 03-20-2023 End: 03-20-2023 ambulatory SINDI Bassett [facility] [employer] Other Start: 03-20-2023 End: 03-20-2023 Patient encounter procedure DO Teri Harperi Work Phone: [facility]-MRI Main [place] Work Phone: Start: 03-20-2023 End: 03-20-2023 Patient encounter procedure DO Terijanis Cedillocki Work Phone: [facility] Work Phone: Start: 03-13-2023 End: 03-13-2023 ambulatory Prashant Yanezr Other [employer] Other Start: 03-13-2023 Telephone encounter Prashant Salinas [facility] Start: 03-08-2023 End: 03-08-2023 ambulatory Geeta Tim Other [employer] Other Start: 03-08-2023 Telephone encounter Geeta Elaine her [facility] Start: 03-07-2023 End: 03-07-2023 ambulatory Geeta Dumont Facility:[facility] Start: 03-07-2023 End: 03-07-2023 Patient encounter procedure DO Teri Aragon Work Phone: [facility]-Lab Main [place] Work Phone: Start: 03-05-2023 End: 03-05-2023 ambulatory Geeta Tim Other [employer] Other Start: 03-05-2023 Office outpatient vi sit 25 minutes Geeta Dumont [facility] Start: 03-05-2023 Telephone encounter Geeta Carringtonbharati her [facility] Start: 03-05-2023 End: 03-05-2023 Patient encounter procedure DO Teri Aragon Work Phone: [facility] Work Phone: Start: 03-01-2023 End: 03-01-2023 ambulatory Essam Tommie Other [employer] Other Start: 03-01-2023 Telephone encounter Mina Appiahashi [facility] Start: 02-26-2023 End: 02-26-2023 ambulatory Teri Aragon Facility:[facility] Start: 02-26-2023 End: 02-26-2023 ambulatory DO Teri Aragon Work Phone: [facility] Work Phone: Start: 02-26-2023 End: 02-26-2023 Discharged Recurring DO Teri Aragon Work Phone: [facility] [place] Work Phone: Start: 02-26-2023 Registered Recurring DO Bandar Aragon Work Phone: [facility] [place] Work Phone: Start: 02-21-2023 Office outpatient vi sit 25 minutes Mina Reilly [facility] Nephrology Start: 02-21-2023 End: 02-21-2023 ambulatory TERI ARAGON [facility] [employer] Other Start: 02-21-2023 End: 02-21-2023 Patient encounter procedure DO Teri Aragon Work Phone: [facility]-CT Scan Main [place] Work Phone: Start: 02-21-2023 End: 02-21-2023 Patient encounter procedure DO Teri Aragon Work Phone: [facility] Nephrology Work Phone: Start: 02-18-2023 Telephone encounter Ingris garrett [facility] Start: 02-18-2023 Transitional care reta antonio srvc 14 day discharge Ingris Lombardo [facility] Start: 02-18-2023 End: 02-18-2023 ambulatory DARIO BOLDEN Not Available Start: 02-18-2023 End: 02-18-2023 ambulatory DO Teri Aragon Work Phone: [facility] Work Phone: Start: 02-18-2023 End: 02-18-2023 Patient encounter procedure DO Teri Aragon Work Phone: [facility]-Lab Main [place] Work Phone: Start: 02-18-2023 End: 02-18-2023 Patient encounter procedure DO Teri Aragon Work Phone: [facility] Family Medicine [facility] Work Phone: Start: 02-12-2023 End: 02-15-2023 Evaluation and management of inpatient Teri Aragon Facility:[facility] Start: 02-12-2023 End: 02-15-2023 Evaluation and management of inpatient DO Teri Aragon Work Phone: [facility] [place] [facility] Work Phone: Start: 02-11-2023 End: 02-11-2023 ambulatory Ingris Lombardo Other [employer] Other Start: 02-11-2023 Telephone encounter Ingris garrett [facility] Start: 02-10-2023 End: 02-10-2023 ambulatory Teri Aragon Facility:[facility] Start: 02-10-2023 End: 02-10-2023 Patient encounter procedure [facility]Electrodiagnostics Work Phone: Start: 02-08-2023 End: 02-10-2023 Evaluation and management of inpatient Obmay Hyun Srivastavar Facility:[facility] Start: 02-08-2023 End: 02-10-2023 Evaluation and management of inpatient [facility] [place] [facility] Work Phone: Start: 02-06-2023 Evaluation and manag ement of inpatient [facility] [place] [facility] Work Phone: Start: 02-06-2023 observation encounter NON STAFF [facility] Work Phone: Start: 02-04-2023 End: 02-04-2023 ambulatory WEI SOTO Not Available Start: 01-28-2023 End: 01-28-2023 ambulatory Dario Bolden Facility:[facility] Start: 01-28-2023 End: 01-28-2023 ambulatory NON STAFF [facility] Work Phone: Start: 01-28-2023 End: 01-28-2023 Patient encounter procedure [facility]-Nuc Med [facility] [place] Work Phone: Start: 01-23-2023 End: 01-24-2023 ambulatory DARIO BOLDEN Not Available Start: 01-14-2023 End: 01-14-2023 ambulatory Sindi Foster Facility:[facility] Start: 01-14-2023 End: 01-14-2023 Patient encounter procedure [facility]XRay [facility] [place] Work Phone: Start: 12-19-2022 End: 12-19-2022 ambulatory Teri Aragon Facility:[facility] Start: 12-19-2022 End: 12-19-2022 ambulatory FILTER PR[employer] Geeta Dumont Work Phone: [facility] Work Phone: Start: 12-19-2022 End: 12-19-2022 Patient encounter procedure FILTER PRESS TENDER HEADMelecio Dumont Work Phone: [facility]Lab Main [place] Work Phone: Start: 12-12-2022 End: 12-12-2022 ambulatory Ingris Lombardo Other [facility] [employer] Other Start: 12-12-2022 Telephone encounter Ingris garrett [facility] Start: 12-06-2022 End: 12-06-2022 ambulatory Sindi Foster [facility] Start: 12-05-2022 Telephone encounter Teri Aragon Work Phone: [facility] 250 DO Work Phone: Start: 11-27-2022 ambulatory Teri Aragon Facil ity:[facility] Start: 11-27-2022 Registered Recurring FILTER PRESS TENDER HEAD Sintia Dumont Work Phone: [facility]Cancer [facility] Work Phone: Start: 11-26-2022 End: 11-26-2022 ambulatory Vivian Del Rosario Facility:[facility] Start: 11-26-2022 End: 11-26-2022 ambulatory FILTER PRESS TENDER HEADMelecio Dumotn Work Phone: [facility] Work Phone: Start: 11-26-2022 End: 11-26-2022 Patient encounter procedure FILTER PRESS TENDER HEADMelecio Dumont Work Phone: [facility]-Lab [place] Work Phone: Start: 11-12-2022 End: 11-12-2022 ambulatory NON STAFF Facility:[facility] Start: 11-12-2022 End: 11-12-2022 ambulatory FILTER PRESS TENDER HEADMelecio Dumont Work Phone: [facility] Work Phone: Start: 11-12-2022 End: 11-12-2022 Patient encounter procedure FILTER PRESS TENDER HEADMelecio Dumont Work Phone: [facility]-Lab [place] Work Phone: Start: 11-01-2022 AUDIT Teri amezquita Work Phone: [facility] 250 DO Work Phone: Start: 10-16-2022 End: 10-16-2022 ambulatory Geeta Dumont Other [facility] [employer] Other Start: 10-16-2022 Telephone encounter Geeta Henry [facility] Start: 10-11-2022 End: 10-11-2022 ambulatory Geeta Dumont Other [employer] Other Start: 10-11-2022 Office outpatient vi sit 25 minutes Geeta Dumont [facility] Start: 10-10-2022 End: 10-10-2022 ambulatory Geeta Dumont Facility:[facility] Start: 10-10-2022 End: 10-10-2022 ambulatory FILTER PR[employer] TENDER HEAD Geeta Dumont Work Phone: [facility] Work Phone: Start: 10-10-2022 End: 10-10-2022 Patient encounter procedure FILTER PR[employer] TENDER HEAD Geeta Dumont Work Phone: [facility]-Lab Main [place] Work Phone: Start: 10-01-2022 End: 10-01-2022 ambulatory Geeta Dumont Other [employer] Other Start: 10-01-2022 Telephone encounter Geeta Henry her [employer] Start: 09-28-2022 Telephone encounter Geeta Henry her [facility] Start: 09-28-2022 End: 09-28-2022 ambulatory FILTER PR[employer] TENDER HEAD Geeta Dumont Work Phone: [employer] Other Start: 09-28-2022 End: 09-28-2022 Patient encounter procedure FILTER PRESS TENDER HEAD Geeta Dumont Work Phone: [facility]-MRI Main [place] Work Phone: Start: 09-12-2022 End: 09-12-2022 ambulatory Geeta Dumont Other [employer] Other Start: 09-12-2022 Office outpatient vi sit 15 minutes Geeta Dumont [facility] Start: 09-10-2022 End: 09-10-2022 ambulatory Geeta Dumont Other [facility] [employer] Other Start: 09-10-2022 Telephone encounter Geeta Henry [facility] [place] Start: 09-07-2022 FUV, Provider: Viridiana Burgess, Status: Pen, Time: 9:20 AM Teri Aragon Work Phone: [facility] 250 DO Work Phone: Start: 09-07-2022 Office outpatient vi sit 25 minutes Teri Aragon Work Phone: [facility] 250 DO Work Phone: Start: 09-07-[address] Stone Az roseanne Burgess Facility: Start: 09-06-2022 Chart Update Teri amezquita Work Phone: [facility] 250 DO Work Phone: Start: 09-05-2022 End: 09-05-2022 ambulatory Geeta Dumont Facility:[facility] Start: 09-05-2022 End: 09-05-2022 ambulatory GOLDEN Dumont Work Phone: [facility] Work Phone: Start: 09-05-2022 End: 09-05-2022 Patient encounter procedure FILTER PRESS TENDER HEADMelecio Dumont Work Phone: [facility]-Lab [place] Work Phone: Start: 09-04-2022 End: 09-04-2022 ambulatory Sabino Ding Other [facility] [employer] Other Start: 09-04-2022 Office outpatient ne w 30 minutes Sabino Ding [facility] Start: 09-04-2022 Telephone encounter Teri Aragon Work Phone: [facility] 250 DO Work Phone: Start: 09-03-2022 End: 09-03-2022 ambulatory Geeta Dumont Facility:[facility] Start: 09-03-2022 End: 09-03-2022 ambulatory FILTER PRESS TENDER HEAD Geeta Dumont Work Phone: [facility] Work Phone: Start: 09-03-2022 End: 09-03-2022 Patient encounter procedure FILTER PRESS TENDER HEAD Geeta Dumont Work Phone: [facility]-XRay Main [place] Work Phone: Start: 08-30-2022 End: 08-30-2022 ambulatory Geeta Dumont Other [employer] Other Start: 08-30-2022 Telephone encounter Geeta Henry her [facility] Start: 08-29-2022 Telephone encounter Geeta Henry her [employer] [employer] Start: 08-29-2022 End: 08-29-2022 ambulatory FILTER PRESS TENDER HEAD Geeta Dumont Work Phone: [facility] Work Phone: Start: 08-29-2022 End: 08-29-2022 Patient encounter procedure FILTER PRESS TENDER HEADMelecio Dumont Work Phone: [facility]-Lab [place] Work Phone: Start: 08-28-2022 Office outpatient vi sit 25 minutes Geeta Dumont [facility] Medicine [place] Start: 08-28-2022 End: 08-28-2022 ambulatory Geeta Dumont [employer] [place] Other Start: 08-28-2022 End: 08-28-2022 Patient encounter procedure FILTER PRESS TENDER HEADMelecio Dumont Work Phone: [facility]-XRay [place] Start: 08-20-2022 End: 08-20-2022 ambulatory Lavon Felter Other [employer] Other Start: 08-20-2022 Telephone encounter Lavon Sandoval NIRMALA G [place] [facility] Start: 07-24-2022 (Procedure) Short Lavon Sandoval [facility] Start: 07-24-2022 End: 07-24-2022 Admission to same day surgery center FILTER PRESS TENDER HEAD Geeta Dumont Work Phone: [facility] Work Phone: Start: 07-24-2022 End: 07-24-2022 ambulatory FILTER PRESS TENDER HEADMelecio Dumont Work Phone: [employer] Other Start: 07-02-2022 Telephone encounter Geeta cuevas [facility] Start: 07-02-2022 End: 07-02-[address] Viridiana Burgess [employer] Other Start: 06-26-2022 End: 06-26-2022 ambulatory Lavon Marielenaleida Other [employer] Other Start: 06-26-2022 Telephone encounter Lavon Sandoval NIR[facility]AL[facility] Start: 06-18-2022 End: 06-18-2022 ambulatory Lavon Sandoval Other [employer] Other Start: 06-18-2022 Telephone encounter Lavon SILVESTRE G [facility] [place] Start: 06-14-2022 End: 06-14-2022 ambulatory Lavon Sandoval Other [employer] Other Start: 06-14-2022 Office outpatient vi sit 25 minutes Lavon Sandoval [facility] [place] Start: 06-05-2022 (Procedure) Short Lavon Sandoval [facility] Start: 06-05-2022 End: 06-05-2022 ambulatory Geeta Dumont Facility:[facility] Start: 06-05-2022 End: 06-05-2022 Admission to same day surgery center FILTER PRESS TENDER HEADMelecio Dumont Work Phone: [facility] Work Phone: Start: 06-05-2022 End: 06-05-2022 ambulatory FILTER PRESS TENDER HEADMelecio Dumont Work Phone: [facility] Work Phone: Start: 06-01-2022 Telephone encounter Teri Aragon Work Phone: [facility] 250 DO Work Phone: Start: 05-18-2022 Rx Renewal Teri Contreras Neto amezquita Work Phone: [facility] 250 DO Work Phone: Start: 05-17-2022 End: 05-17-2022 ambulatory Lavon Sandoval Other [employer] Other Start: 05-17-2022 Office outpatient vi sit 25 minutes Lavon Sandoval [facility] [place] Start: 05-08-2022 (Procedure) Short Lavon Sandoval [facility] Start: 05-08-2022 End: 05-08-2022 ambulatory Geeta Dumont Facility:[facility] Start: 05-08-2022 End: 05-08-2022 Admission to same day surgery center GOLDEN Dumont Work Phone: [facility] Work Phone: Start: 05-08-2022 End: 05-08-2022 ambulatory FILTER PRESS TENDER HEADMelecio Dumont Work Phone: [facility] Work Phone: Start: 04-26-2022 End: 04-26-2022 ambulatory Lavon Sandoval Other [employer] Other Start: 04-26-2022 Office outpatient ne w 45 minutes Lavon Sandoval [facility] [place] Start: 04-26-2022 End: 04-26-2022 Patient encounter procedure FILTER PRESS TENDER HEAD Geeta Tim Work Phone: [facility]-X[facility] [facility] Start: 04-23-2022 End: 04-23-2022 ambulatory Geeta Tim Other [employer] Other Start: 04-23-2022 Telephone encounter Geeta Carringtonritafaisal her [facility] [place] Start: 04-20-2022 End: 04-20-2022 ambulatory Geeta Tim Other [employer] Other Start: 04-20-2022 Telephone encounter Geeta Henry her [facility] [place] Start: 04-16-2022 End: 04-16-2022 ambulatory Geeta Tim Other [employer] Other Start: 04-16-2022 Telephone encounter Geeta Henry her [facility] [place] Start: 04-13-2022 Rx Renewal Teri amezquita Work Phone: [facility] 250 DO Work Phone: Start: 04-12-2022 End: 04-12-2022 ambulatory GOLDEN Connor Tim Work Phone: [facility] Work Phone: Start: 04-12-2022 End: 04-12-2022 Patient encounter procedure FILTER PRESS TENDER HEAD Geeta Tim Work Phone: [facility]-Ultrasound Main [place] Work Phone: Start: 04-10-2022 Rx Renewal Teri amezquita Work Phone: [facility] 250 DO Work Phone: Start: 04-07-2022 End: 04-07-2022 ambulatory Geeta Tim Other [employer] Other Start: 04-07-2022 Telephone encounter Geeta Carringtonbharati her [facility] [employer] Start: 04-03-2022 End: 04-03-2022 Admission to same day surgery center FILTER PRESS TENDER HEAD Geeta Tim Work Phone: [facility] Work Phone: Start: 04-02-2022 End: 04-02-2022 ambulatory Geeta Tim Other [facility] [employer] Other Start: 04-02-2022 Patient encounter procedure Geeta Tim [facility] Start: 03-29-2022 Chart Update Teri Duque [employer] Work Phone: [facility] 250 DO Work Phone: Start: 03-28-2022 Rx Renewal Teri Duque [employer] Work Phone: [facility] 250 DO Work Phone: Start: 03-28-2022 End: 03-28-2022 ambulatory FILTER PRESS TENDER HEAD Geeta Dumont Work Phone: [facility] Work Phone: Start: 03-28-2022 End: 03-28-2022 Patient encounter procedure FILTER PRESS TENDER HEAD Geetaivon Dumont Work Phone: [facility] Work Phone: Start: 03-26-2022 End: 03-26-2022 ambulatory Geeta Tim Other [facility] [place] Other Start: 03-26-2022 Telephone encounter Geeta Elaine her [facility] Start: 03-05-2022 End: 03-05-2022 ambulatory Geeta Tim Other [employer] Other Start: 03-05-2022 Telephone encounter Geeta Henry her [facility] Start: 01-25-2022 Office outpatient vi sit 25 minutes Teri Aragon Work Phone: [facility] 250 DO Work Phone: Start: 01-25-[address] Teri Aragon Facility: Start: 01-25-2022 Rx Renewal Teri amezquita Work Phone: [facility] 250 DO Work Phone: Start: 01-17-2022 End: 01-17-2022 ambulatory Geeta Tim Other [employer] Other Start: 01-17-2022 Telephone encounter Geeta Henry her [facility] Start: 01-04-2022 End: 01-04-2022 ambulatory Geeta Tim Other [employer] Other Start: 01-04-2022 Telephone encounter Geeta Henry her [employer] Start: 01-02-2022 End: 01-02-2022 ambulatory DO Teri Aragon Work Phone: [facility] Work Phone: Start: 01-02-2022 End: 01-02-2022 Patient encounter procedure DO Teri Aragon Work Phone: [facility]-MRI [address] Start: 01-01-2022 End: 01-01-2022 ambulatory Geeta Dumont Other [employer] Other Start: 01-01-2022 Telephone encounter Geeta Henry her [facility] Start: 12-27-2021 End: 12-28-2021 ambulatory Dario Bolden Facility[facility] Start: 12-27-2021 End: 12-27-2021 Lab Drop off Dario Bolden [facility] Start: 12-21-2021 End: 12-21-2021 ambulatory PHYSICIAN NO [facility] Work Phone: Start: 12-21-2021 End: 12-21-2021 Discharged Recurring PHYSICIAN NO [facility] [place] Start: 12-18-2021 Chart Update No PCP None [facility]-Cardiol ogy-[facility] Brandi Mathur [address] [place] Work Phone: Start: 12-15-2021 End: 12-15-2021 ambulatory Geeta Dumont Other [employer] Other Start: 12-15-2021 Office outpatient vi sit 25 minutes Geeta Dumont [facility] Start: 12-11-2021 End: 12-11-2021 Departed Referred PHYSICIAN NO [facility]-Lab [facility] [place] Start: 12-05-2021 End: 12-05-2021 Patient encounter procedure DPM Alden Lal Work Phone: [facility] [address] Start: 11-30-2021 End: 11-30-2021 ambulatory Geeta Dumont Other [employer] Other Start: 11-30-2021 Telephone encounter Geeta Henry her [employer] Start: 11-28-2021 End: 11-28-2021 ambulatory Geeta Dumont Facility:[facility] Start: 11-27-2021 End: 11-27-2021 ambulatory Geeta Dumont Other [employer] Other Start: 11-27-2021 Office outpatient vi sit 15 minutes Geeta Dumont [facility] Start: 11-21-2021 End: 11-21-2021 Departed Referred DO Francisco Guillermo Work Phone: [facility]-Lab [facility] Start: 11-21-2021 End: 11-21-2021 ambulatory Geeta Dumont Other [employer] Other Start: 11-21-2021 Telephone encounter Geeta Henry her [facility] Start: 11-10-2021 End: 11-10-2021 Registered Recurring DO Franciscojolene Li Work Phone: [facility]-Cancer [place] Start: 11-08-2021 End: 11-08-2021 Departed Referred DO Francisco Li Work Phone: [facility]-Lab [facility] Start: 10-30-2021 End: 10-30-2021 ambulatory Geeta Dumont Other [employer] Other Start: 10-30-2021 Encounter for other preprocedural examination Geeta Dumont [facility] Start: 10-30-2021 Office outpatient vi sit 25 minutes Geeta Dumont [facility] Start: 10-27-2021 End: 10-29-2021 Subsequent hospital visit by physician [facility] X-Ray [facility] Radiology Comment on above: Arrived Start: 10-27-2021 End: 11-01-2021 ambulatory RUSSELL Bassett [facility] Start: 10-13-2021 End: 10-13-2021 ambulatory Geeta Dumont Other [employer] Other Start: 10-13-2021 Telephone encounter Geeta Henry her [employer] Start: 10-09-2021 End: 10-09-2021 ambulatory Geeta Tim Other [employer] Other Start: 10-09-2021 Telephone encounter Geeta Henry her [facility] Start: 09-29-2021 End: 09-29-2021 ambulatory Geeta Tim Other [employer] Other Start: 09-29-2021 Office outpatient vi sit 15 minutes Geeta Tim [facility] Start: 09-29-2021 Telephone encounter Geeta Carringtonritafaisal her [facility] Start: 09-27-2021 End: 09-27-2021 Patient encounter procedure DO Francisco Li Work Phone: [facility]-Lab [place] Start: 09-20-2021 End: 09-24-2021 Evaluation and management of inpatient DO Francisco Li Work Phone: [facility] Start: 09-20-2021 End: 09-20-2021 Departed Referred DO Francisco Li Work Phone: [facility]-Lab Main [place] Start: 09-13-2021 Chart Update No PCP None -[facility] 250 DO Work Phone: Start: 09-13-2021 End: 09-13-2021 ambulatory Geeta Tim Other [employer] Other Start: 09-13-2021 Telephone encounter Geeta Carringtonritafaisal her [facility] Start: 09-06-2021 End: 09-06-2021 Patient encounter procedure DO Francisco Li Work Phone: [facility] [place] Start: 08-23-2021 End: 08-23-2021 ambulatory Geeta Tim Other [employer] Other Start: 08-23-2021 Telephone encounter Geeta Henry her [employer] Start: 08-22-2021 End: 08-22-2021 Patient encounter procedure DO Francisco Li Work Phone: [facility] Start: 08-22-2021 End: 08-22-2021 ambulatory Geeta Dumont Other [employer] Other Start: 08-22-2021 Office outpatient vi sit 25 minutes Geeta Dumont [facility] Start: 06-23-2021 End: 08-23-2021 ambulatory TERI ARAGON Facility:[facility] Start: 06-14-2021 End: 06-14-2021 ambulatory Geeta Dumont Other [employer] Other Start: 06-14-2021 Telephone encounter Geeta Carringtonbharati her [employer] Start: 06-12-2021 End: 06-12-2021 ambulatory Geeta Dumont Other [employer] Other Start: 06-12-2021 Office outpatient ne w 30 minutes Geeta Dumont [facility] Start: 05-03-2021 Rx Renewal Francisco Garg on Work Phone: [facility] 250 DO Work Phone: Start: 02-19-2021 Rx Renewal Francisco Garg on Work Phone: [facility] 250 DO Work Phone: Start: 01-25-2021 Office outpatient vi sit 25 minutes Francisco Li Work Phone: [facility] 250[address] [place] Work Phone: Start: 01-25-2021 Patient encounter procedure Francisco Li Work Phone: -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 Start: 01-04-2021 AUDIT Francisco Garg on Work Phone: RL-Gmphnormol-Gmwkdkr Work Phone: Start: 12-19-2020 AUDIT Francisco Garg on Work Phone: GE-Eejaknddyc-JOU [facility] [address] [place] Work Phone: Start: 12-07-2020 Office outpatient ne w 45 minutes Francisco Li Work Phone: IU-Orffeqqonb-YSL [facility] [address] [place] Work Phone: Start: 08-25-2020 End: 08-25-2020 ambulatory ULISSES [facility] Start: 08-25-2020 End: 08-25-2020 Subsequent hospital visit by physician Ulisses Nieves MD Work Phone: [facility] Start: 08-22-2020 End: 08-27-2020 ambulatory MARGARET [facility] Start: 08-22-2020 End: 08-26-2020 Subsequent hospital visit by physician Westley Pat 1 [facility] Pre-Admit Testing Start: 07-26-2020 End: 07-26-2020 ambulatory ULISSES AVASTHI [facility] Start: 07-22-2020 End: 07-22-2020 Subsequent hospital visit by physician Westley Andinoid Screening Schedule WESTLEY Covid Screening - Nahum Comment on above: COVID-19 ruled out b y laboratory testing (Primary Dx) Start: 07-02-2020 End: 07-03-2020 ambulatory BRITTANY RAO [facility] Start: 07-02-2020 End: 07-02-2020 Patient encounter status Stcz Schedule [facility] Covid Scre ening Start: 07-02-2020 End: 07-02-2020 Subsequent hospital visit by physician Vita Covid Screening Schedule [facility] Covid Screening Comment on above: Preop testing (Prima ry Dx) Start: 05-12-2020 Registered [facility] Start: 03-30-2019 End: 04-01-2019 Subsequent hospital visit by physician [facility] [address] Scan Comment on above: Cough; Hemoptysis; SOB (shortness of breath) SOB (shortness of br eath); Hemoptysis Start: 09-27-2017 End: 09-27-2017 Patient encounter ESSENCE MARTÍNEZ Facility:[facility] Start: 09-23-2017 Patient encounter PAULA BERGER Facility:7 Start: 11-16-2016 End: 11-16-2016 Patient encounter ESSENCE MARTÍNEZ Facility:[facility] Start: 11-07-2016 Patient encounter ESSENCE MARTÍNEZ Facil [id number] Patient encounter procedure [facility] Procedures Date Procedure Procedure Detail Performing Clinician [...] bone study Start: 09-28-2022 MRI of head FILTER PRESS TENDER HEADMelecio Dumont Work Phone: Start: 09-03-2022 X-ray of cervical spine GOLDEN Dumont Work Phone: Start: 08-28-2022 Plain chest X-ray GOLDEN Dumont Work Phone: Start: 07-24-2022 Local anesthetic lum bar facet joint nerve block GOLDEN Dumont Work Phone: Start: 06-05-2022 Local anesthetic lum bar facet joint nerve block GOLDEN Dumont Work Phone: Start: 05-08-2022 Local anesthetic lum bar facet joint nerve block GOLDEN Dumont Work Phone: Start: 04-26-2022 X-ray of lumbar spin e, four views FILTER PRESS TENDER HEADMelecio Connor Tim Work Phone: Start: 04-12-2022 Pulse volume recorde r pneumoplethysmography FILTER PRESS TENDER HEAD Geeta Tim Work Phone: Start: 04-03-2022 Screening [...] panel - S elmira or Plasma Viridiana Burgess DO Work Phone: Start: 08-25-2018 CT chest w con Francisco danielle Start: 07-22-2018 Plain chest X-ray Js Li Start: 07-29-2017 CT abdomen pelvis wo con Francisco Li Start: 07-29-2017 CT chest wo con Francisco Li Start: 01-16-2017 CT abdomen pelvis wo con Francisco Li Start: 01-16-2017 CT chest wo con Franciscojolene Li Aerobic microbial culture DO Franciscojolene Li Work Phone: Aerobic microbial culture DO Francisco Li Work Phone: Aerobic microbial culture DO Francisco Li Work Phone: Aerobic microbial culture MICHELLE Lal Work Phone: Aerobic microbial culture PH YSICIAN NO FAMILY Amputation of toe Teri Aragon Work Phone: Anaerobic microbial culture DO Francisco Guillermo Work Phone: Appendectomy Francisco Hay n Work Phone: Atrial appendage adán sure device insertion Teri Aragon Work Phone: Atrial cardioversion Francisco Li Work Phone: Colonoscopy Francisco Hay n Work Phone: Comment on above: [id number]; Esophagogastrostomy, antesternal or antethoracic Francisco Li Work Phone: Hammer toe operation Teri Aragon Work Phone: Hernia repair Francisco Garg [...] DTaP/Tdap/Td vaccine (2 - Td or Tdap) [facility] Start: 01-03-2026 DTaP/Tdap/Td Vaccines (2 - Td or Tdap) DTaP/Tdap/Td Vaccines (2 - Td or Tdap) [facility] Start: 02-08-2024 Echocardiography Echocardiogram [facility] Start: 12-19-2023 End: 12-19-2023 Patient encounter procedure 12/19/2023 10:20 AM EDT Office Visit [facility] [address] [place] [address] Estee Han MD [address] [place] [address] [facility] Start: 10-16-2023 End: 10-16-2023 Patient encounter procedure 10/16/2023 10:00 AM EDT Office Visit [facility] [address] [place] [address] Shameka Melara, FILTER PRESS TENDER HEAD-NIB INSPECTOR [address] [place] [address] [facility] Start: 07-26-2023 End: 07-26-2023 Patient encounter procedure 07/26/2023 10:00 AM EDT Office Visit [facility] [address] [facility] [address] [place] [phone] [place] [address] [place] [address] [facility] Start: 06-19-2023 End: 06-19-2023 Patient encounter procedure 06/19/2023 9:10 AM EDT Office Visit [facility] [address] [place] [phone] Sindi Foster MD [address] [place] [address] [facility] Start: 05-23-2023 End: 05-23-2023 Patient encounter procedure 05/23/2023 9:30 AM EST Office Visit [facility] [address] [facility] [address] [place] [phone] Wei Soto MD [address] [facility] [address] [address] [facility] Start: 05-22-2023 End: 05-22-2023 Patient encounter procedure 05/22/2023 9:10 AM EST Office Visit [facility] [address] [facility] [address] [place] [address] Sindi Foster MD [address] [facility] [address] [place] [address] [facility] Start: 04-24-2023 End: 04-24-2023 Patient encounter procedure 04/24/2023 9:10 AM EST Office Visit [facility] [address] [facility] [address] [place] [address] Sindi Foster MD [address] [facility] [address] [place] [address] [facility] Start: 03-20-2023 FUV, Provider: Viridiana Burgess, Status: Pen, Time: 9:50 AM FUV, Provider: Viridiana Burgess, Status: Pen, Time: 9:50 AM [facility] 250 DO Work Phone: Start: 03-13-2023 COVID-19 Vaccine ( season) COVID-19 Vaccine ( season) [facility] Start: 02-15-2023 [facility] Start: 02-14-2023 [facility] Start: 02-12-2023 Hospital admission [facility] Start: 02-12-2023 Insertion of Pacemaker Lead into Right Ventricle, Percutaneous Approach Insertion of Pacemaker Lead into Right Ventricle, Percutaneous Approach [facility] Start: 02-12-2023 Insertion of Pacemaker, Single Chamber into Chest Subcutaneous Tissue and Fascia, Open Approach Insertion of Pacemaker, Single Chamber into Chest Subcutaneous Tissue and Fascia, Open Approach [facility] Start: 02-11-2023 Implantation of cardiac pacemaker OR Pacemaker Insertion (Not Applicable) [facility] Start: 02-10-2023 [facility] Start: 02-07-2023 Referral to scrap metal collector [facility] Start: 02-07-2023 Blood chemistry [facility] Start: 02-06-2023 Physical therapy procedure [facility] Start: 02-06-2023 Referral to hatchery employee [facility] Start: 02-06-2023 Referral to occupational therapist [facility] Start: 02-06-2023 Hospital admission [facility] Start: 02-06-2023 [facility] Start: 10-27-2022 Hemoglobin A1c measurement A1C test (Diabetic or Prediabetic) [facility] Start: 08-21-2022 FUV, Provider: Viridiana Burgess, Status: Pen, Time: 9:20 AM FUV, Provider: Viridiana Burgess, Status: Pen, Time: 9:20 AM [facility] 250 DO Work Phone: Start: 07-24-2022 [facility] Start: 2022 Abdominal aortic aneurysm screening Abdominal Aortic Aneurysm (AAA) Screening [facility] Start: 2022 Pneumococcal Vaccine: 65+ Years (1 - PCV) Pneumococcal Vaccine: 65+ Years (1 - PCV) [facility] Start: 07-02-2022 ECHO, Provider: SOFIE CASTILLO ULTRASOUND ,[id number], Status: Pen, Time: 9:45 AM ECHO, Provider: SOFIE WEBERI ULTRASOUND ,[id number], Status: Pen, Time: 9:45 AM [facility] 250 DO Work Phone: Start: 06-05-2022 [facility] Start: 05-08-2022 [facility] Start: 04-03-2022 [facility] Start: 01-27-2022 Hemoglobin A1c measurement Diabetes: Hemoglobin A1C [facility] Start: 01-25-2022 FUV, Provider: Viridiana Burgess, Status: Pen, Time: 9:40 AM FUV, Provider: Viridiana Burgess, Status: Pen, Time: 9:40 AM [facility] 250 DO Work Phone: Start: 11-16-2021 Influenza vaccination Flu vaccine (#1) [facility] Start: 11-13-2021 End: 11-13-2021 Admission to same day surgery center 11/13/2021 Surgery IP Unit Mauro Rankin MD [address] [place] [address] RIGHT INFERIOR PARATHYROIDECTOMY [facility] Comment on above: RIGHT INFERIOR PARATHYROIDECTOMY Start: 11-13-2021 End: 11-13-2021 Parathyroidectomy/explora tion parathyroids PARATHYROIDECTOMY Hyperparathyroidism (HCC) Hypercalcemia 11/13/2021 11:00 AM [facility] Start: 11-13-2021 Subsequent hospital visit by physician 11/13/2021 Hospital Encounter IP Unit Mauro Rankin MD [address] [place] [address] [facility] Start: 09-24-2021 [facility] Work Phone: Start: 09-20-2021 Hospital admission [facility] Work Phone: Start: 09-20-2021 Referral to wearing apparel assembler [facility] Work Phone: Start: 09-20-2021 Referral to infectious diseases physician [facility] Work Phone: Start: 09-20-2021 Detachment at Left 1st Toe, Mid, Open Approach Detachment at Left 1st Toe, Mid, Open Approach [facility] Start: 07-27-2021 FUV, Provider: Viridiana Burgess, Status: Pen, Time: 9:30 AM FUV, Provider: Viridiana Burgess, Status: Pen, Time: 9:30 AM [facility] 250 DO Work Phone: Start: 05-31-2021 COVID-19 Vaccine (3 - Booster for Al series) COVID-19 Vaccine (3 - Booster for Al series) [facility] [place] Start: 05-25-2021 Pneumococcal 0-64 years Vaccine (1 of 1 - PPSV23) Pneumococcal 0-64 years Vaccine (1 of 1 - PPSV23) [employer] Work Phone: Comment on above: Postponed from 07/11/1963 (Patient Does Not Have Time) Start: 05-25-2021 Pneumococcal 0-64 years Vaccine (1 of 2 - PPSV23) Pneumococcal 0-64 years Vaccine (1 of 2 - PPSV23) [facility] Phone: Comment on above: Postponed from 07/11/1963 (Patient Does Not Have Time) Start: 03-02-2021 FUV, Provider: Viridiana Burgess, Status: Pen, Time: 11:30 AM FUV, Provider: Viridiana Burgess, Status: Pen, Time: 11:30 AM XU-Cuclaegelo-SNN [facility] [address] [place] Work Phone: Start: 01-25-2021 FUV, Provider: Viridiana Burgess, Status: Pen, Time: 8:30 AM FUV, Provider: Viridiana Burgess, Status: Pen, Time: 8:30 AM VF-Qlawuhgvsy-YFP [facility] [address] [place] Work Phone: Start: 01-25-2021 Patient encounter [address] [facility] [place] Start: 01-11-2021 End: 01-12-2022 [facility] Comment on above: Enteral feedings are held 1 hour pre and post dose Start: 01-10-2021 End: 01-11-2022 [facility] Comment on above: IF patient HAS [...] mg/dL or greater. Start: 01-10-2021 End: 01-11-2022 [facility] Comment on above: 1. Dilute 1.3 [...] Saline. Start: 09-09-2020 Potassium measurement Potassium Level [facility] Start: 09-05-2020 End: 09-05-2020 Patient encounter procedure 09/05/2020 Office Visit Pulmonology Ulisses Nieves MD [address] [place] [id number] [facility] Start: 08-23-2020 Creatinine measurement Creatinine Level [facility] Start: 08-05-2020 End: 08-05-2020 Patient encounter procedure 08/05/2020 Office Visit Pulmonology Ulisses Nieves MD [address] [place] [address] [employer] [facility] Start: 07-26-2020 End: 07-26-2020 Admission to same day surgery center 07/26/2020 Surgery Endoscopy Ulisses Nieves MD [address] [place] [address] BRONCHOSCOPY WITH FLUORO [facility] Comment on above: BRONCHOSCOPY WITH FLUORO Start: 07-26-2020 Subsequent hospital visit by physician 07/26/2020 Hospital Encounter Endoscopy Ulisses Nieves MD [address] [place] [address] [phone] [facility] Start: 07-22-2020 End: 07-22-2021 COVID-19 COVID-19 Lab Routine COVID-19 ruled out by laboratory testing Expected: 07/22/2020, Expires: 07/22/2021 [facility] Phone: Comment on above: Expected: 07/22/2020, Expires: 2 Start: 07-14-2020 End: 07-14-2020 Patient encounter procedure 07/14/2020 Office Visit Pulmonology Ulisses Nieves MD [address] [place] [address] [id number] [facility] Start: 07-05-2020 End: 07-05-2020 Admission to same day surgery center 07/05/2020 Surgery IP Unit Ulisses Nieves MD [address] [place] [address] [phone] BRONCHOSCOPY WITH FLOURO - GI SCHEDULED [facility] OR Comment on above: BRONCHOSCOPY WITH FLOURO - GI SCHEDULED Start: 07-05-2020 Subsequent hospital visit by physician [facility] Start: 07-02-2020 End: 07-01-2021 COVID-19 [facility] Phone: Comment on above: Expected: 07/02/2020, Expires: 2 Once for 1 Occurrenc es starting 07/02/2020 until 07/02/2020 Start: 05-19-2020 Annual Wellness Visit (AWV) Annual Wellness Visit (AWV) [facility] Phone: Start: 12-18-2019 Lipid panel Lipid Panel [facility] Start: 11-16-2018 Influenza vaccination Flu vaccine (#1) [facility] Phone: Start: 07-11-2007 Colon cancer screen colonoscopy Colon cancer screen colonoscopy [facility] Phone: Start: 07-11-2007 Screening for malignant neoplasm of colon Colon cancer screen colonoscopy [facility] Phone: Start: 07-11-2007 Shingles Vaccine (1 of 2) Shingles Vaccine (1 of 2) [employer] Start: 2002 Screening for malignant neoplasm of colon [employer] Start: 1997 Diabetes screen Diabetes screen [facility] Phone: Start: 1997 Lipid screen Lipid screen [facility] Phone: Start: 1976 DTaP/Tdap/Td vaccine (1 - Tdap) DTaP/Tdap/Td vaccine (1 - Tdap) [facility] Phone: Start: 1976 Urine screening for protein Diabetes: Urine Protein Screening [facility] Start: 07-11-1975 Hepatitis C screening [employer] Start: 1972 HIV screen HIV screen [facility] Phone: Start: 1972 HIV screening HIV screen [employer] Start: 1969 Depression Screen Depression Screen [employer] Start: 1968 DTaP/Tdap/Td vaccine (1 - Tdap) DTaP/Tdap/Td vaccine (1 - Tdap) [facility] Phone: Start: 07-11-1967 Diabetic foot examination Diabetes: Foot Exam [facility] Start: 07-11-1967 Glaucoma screening Diabetes: Retinopathy Screening [facility] Start: 07-11-1967 Lipid panel [employer] Start: 07-11-1963 Pneumococcal 0-64 years Vaccine (1 - PCV) Pneumococcal 0-64 years Vaccine (1 - PCV) [employer] Start: 07-11-1963 Pneumococcal Vaccine: 65+ Years (1 - PCV) Pneumococcal Vaccine: 65+ Years (1 - PCV) [facility] Start: 1958 MMR Vaccines (1 of 1 - Standard series) MMR Vaccines (1 of 1 - Standard series) [facility] Start: 1957 Annual wellness visit Medicare Initial Physical (IPPE) [facility] Start: 1957 Annual Wellness Visit (AWV) Annual Wellness Visit (AWV) [employer] Start: 1957 Creatinine measurement Creatinine monitoring [employer] Work Phone: Start: 1957 Hepatitis C screen Hepatitis C screen [facility] Phone: Start: 1957 Hepatitis C screening Hepatitis C screen [employer] Work Phone: Start: 1957 Potassium monitoring Potassium monitoring [employer] Work Phone: Start: 1957 Screening for malignant neoplasm of colon [facility] Start: 1957 Thyroid stimulating hormone measurement TSH Level [facility] Aldosterone [Mass/vo lume] in Serum or Plasma [facility] Aldosterone [Mass/vo lume] in Serum or Plasma [facility] Atrial fibrillation Atrial fibrillation [facility] Bacteria identified in Unspecified specimen by Aerobe culture [facility] Work Phone: Blood chemistry [facility] Comprehensive metabo lic 1999 panel - Serum or Plasma [facility] Work Phone: Comprehensive metabo lic 1999 panel - Serum or Plasma [facility] Comprehensive metabo lic 1999 panel - Serum or Plasma [facility] Comprehensive metabo lic 1999 panel - Serum or Plasma [facility] Comprehensive metabo lic 1999 panel - Serum or Plasma [facility] COVID-19 COVID-19 Lab Rou veronica 07/02/2020 10:28 PM EDT [employer] Work Phone: Culture with Smear, Acid Fast Bacillius [employer] Work Phone: Comment on above: Release Upon Ordering for 1 Occurrences starting 08/25/2020 Culture, Fungus [employer] Work Phone: Comment on above: Release Upon Ordering for 1 Occurrences starting 08/25/2020 Culture, Respiratory [facility] Work Phone: Comment on above: Release Upon Ordering for 1 Occurrences starting 08/25/2020 Culture, Virus, Respiratory [facility] Work Phone: Comment on above: Release Upon Ordering for 1 Occurrences starting 08/25/2020 Lactate dehydrogenas e [Enzymatic activity/volume] in Unspecified specimen [facility] Work Phone: Lactate dehydrogenas e [Enzymatic activity/volume] in Unspecified specimen [facility] Patient Education [facility] Work Phone: Patient referral [facility] Work Phone: Renin [Enzymatic activity/volume] in Plasma [facility] Renin [Enzymatic activity/volume] in Plasma [facility] Superficial Wound Culture Superficial Wou nd Culture [facility] End: 08-25-2020 Surgical Pathology Surgical Pathology Lab Routine Once for 1 Occurrences starting 08/25/2020 until 08/25/2020 [facility] Work Phone: Comment on above: Once for 1 Occurrences starting 08/26/19 21 until 08/25/2020 [facility] Immunizations Immunization Date Immunization Notes Care Provider Swetha vargas 01-16-2023 COVID-19 (MODERNA) 12Y and older DO Teri Aragon Work Phone: [facility] 01-16-2023 Fluzone QIV High-Dos e 65YR+ DO Teri Aragon Work Phone: [facility] 07-23-2022 zoster vaccine recombinant Teri Aragon Work Phone: [facility] 250 DO Work Phone: 04-28-2022 zoster vaccine recombinant Teri Aragon Work Phone: [facility] Work Phone: 03-14-2022 Pfizer COVID-19 Vac Bivalent 30 MCG/0.3ML Intramuscular Suspension Teri Duqueiecki Work Phone: [facility] 12-15-2021 influenza, injectabl e, quadrivalent, preservative free Geeta Dumont Other [facility] 10-27-2021 Comirnaty 30 MCG/0.3 ML Intramuscular Suspension No PCP None [facility] 01-31-2021 Al COVID-19 Vaccine 0.5 ML Intramuscular Suspension Francisco Li Work Phone: [facility] 12-30-2020 influenza, seasonal, injectable Geeta Dumont Other [facility] 12-30-2020 Seasonal, quadrivale nt, recombinant, injectable influenza vaccine, preservative free Francisco Li Work Phone: [facility] 05-23-2020 Al COVID-19 Vaccine 0.5 ML Intramuscular Suspension Francisco Li Work Phone: [facility] 12-20-2019 influenza, seasonal, injectable, preservative free [facility] Work Phone: 12-17-2019 influenza virus vaccine, unspecified formulation No [facility] Work Phone: 11-30-2019 influenza, injectabl e, quadrivalent, preservative free Francisco Li Work Phone: [facility] 12-16-2018 influenza virus vaccine, unspecified formulation No PCP [facility] Work Phone: 12-16-2018 influenza, seasonal, injectable Francisco Li Work Phone: [facility] 12-15-2017 influenza, injectabl e, quadrivalent, contains preservative Francisco Li Work Phone: [facility] 03-22-2017 influenza virus vaccine, unspecified formulation No [facility]CP [facility] Work Phone: 03-18-2008 influenza virus vaccine, unspecified formulation No PCP None -[facility] 250 DO Work Phone: Payers Date Payer Category Payer Medicare [id number] 2022 Medicare [id number] 2022 Unknown [id number] 2022 Unknown 2020 Private Health Insurance [id number] 2017 Unknown [employer] M [employer] [address] xxxxxxxxxxxx 2017-Present [phone] [address] [place] [address] xxxxxxxxxxxx [id number] 2016 Medicare [id number] 2016 Self-pay [id number] 2014 Medicare [id number] 1.2.840.146569.1.13.239.2 .7.3.351540.315 1955 Unknown [id number] 2.840.1.847117.3.579.2 .176 1955 Unknown [id number] 2.840.1.372594.3.579.2 .175 1955 Unknown [id number] 2.16840.1.226496.3.579.2 .175 1955 Unknown [id number] 2.16840.1.405132.3.579.2 .175 1955 Unknown [id number] 2.16840.1.836466.3.579.2 .177 1955 Unknown [id number] 2.16.840.1.610262.3.579.2 .177 1955 Unknown [id number] 2.16.840.1.178111.3.579.2 .718 1955 Unknown [id number] 2.16.840.1.716946.3.579.2 .718 1955 Unknown [id number] 2.16.840.1.273202.3.579.2 .718 1955 Unknown [id number] 2.16.840.1.858032.3.579.2 .1068 1955 Unknown [id number] 2.16.840.1.011591.3.579.2 .356 1955 Unknown [id number] 2.16.840.1.085523.3.579.2 .356 1955 Unknown [id number] 2.16.840.1.299219.3.579.2 .727 1955 Unknown [id number] 2.16.840.1.971709.3.579.2 .727 1955 Unknown [id number] 2.16.840.1.512444.3.579.2 .1244 1955 Unknown [id number] 2.16.840.1.653154.3.579.2 .1244 1955 Unknown [id number] 2.16.840.1.734846.3.579.2 .1259 1955 Unknown [id number] 2.16.840.1.953896.3.579.2 .1259 1955 Unknown [id number] 2.16.840.1.159952.3.579.2 .1259 1955 Unknown [id number] 2.16.840.1.333035.3.579.2 .1259 1955 Unknown [id number] 2.16.840.1.450753.3.579.2 .1259 1955 Unknown [id number] 2.16.840.1.784812.3.579.2 .1259 Unknown [id number] Unknown [id number] Unknown [id number] 2.16.840.1.455179.3.579.2 .531 Unknown [id number] 2.16.840.1.846319.3.579.2 .531 Unknown [id number] 2.840.1.424584.3.579.2 .531 Unknown [id number] 2.840.1.999367.3.579.2 .531 Unknown [id number] 2.840.1.195227.3.579.2 .531 Unknown [id number] 2.840.1.793807.3.579.2 .531 Unknown [id number] 2.840.1.731479.3.579.2 .531 Unknown [id number] 2.840.1.124473.3.579.2 .531 Unknown [id number] 2.16840.1.573919.3.579.2 .531 Unknown [id number] 2.840.1.305269.3.579.2 .531 Unknown [id number] 2.16840.1.160482.3.579.2 .531 Unknown [id number] 2.16.840.1.661322.3.579.2 .531 Unknown [id number] 2.16840.1.311219.3.579.2 .531 Unknown [id number] 2.16840.1.730249.3.579.2 .531 Unknown [id number] 2.16.840.1.892555.3.579.2 .531 Unknown [id number] 2.16840.1.749314.3.579.2 .531 Unknown [id number] 2.16.840.1.267277.3.579.2 .531 Unknown [id number] 2.16.840.1.635239.3.579.2 .531 Unknown [id number] 2.16.840.1.920725.3.579.2 .531 Unknown [id number] 2.16.840.1.988214.3.579.2 .531 Unknown [id number] 2.16.840.1.976415.3.579.2 .531 Unknown [id number] 2.16.840.1.326867.3.579.2 .531 Unknown [id number] 2.16.840.1.373827.3.579.2 .531 Unknown [id number] 2.16.840.1.320357.3.579.2 .531 Unknown [id number] 2.16.840.1.175261.3.579.2 .531 Unknown [id number] 2.16.840.1.589199.3.579.2 .531 Unknown [id number] 2.16.840.1.433740.3.579.2 .531 Social History Date Type Detail Facility Start: 05-12-2020 End: 02-26-2023 Tobacco smoking status NCIS Ex-smoker (finding) RICHARD JOHNSON [facility] Start: 1955 Sex Assigned At Male F [facility] Start: 03-18-1970 End: 03-18-2006 History of tobacco use Current smoker [facility] Start: 03-18-1970 End: 03-18-2006 History of tobacco use Cigarette Smoker [facility] Start: 06-30-2020 End: 03-29-2023 Cigarettes smoked current (pack per day) - Reported [facility] Work Phone: Comment on above: 1-2 cups of coffee d aily. quart of iced tea daily.; Quit in 2006; 1 cup of coffee week barney a quart of decaf iced tea daily, diet soda rarely; Start: 06-30-2020 End: 12-12-2022 Tobacco use and exposure Never used [facility] Start: 06-30-2020 End: 10-27-2021 Alcohol intake Ex-drinker (finding) [facility] Work Phone: Start: 1955 Sex Assigned At Not on file M [facility] Work Phone: Start: 10-17-2021 End: 04-17-2023 Exposure to SARS-CoV-2 (event) Not sure [facility] Tobacco smoking consumption unknown [facility] Start: 03-29-2023 End: 04-17-2023 Sex Assigned At [facility] Other Tobacco smoking status No Smokin g Status Entered [facility] Start: 04-17-2023 Alcohol intake Lifetime non-d elza (finding) [facility] Work Phone: Start: 03-29-2023 End: 04-24-2023 Alcohol intake Current drinker of alcohol (finding) [facility] Start: 12-12-2022 Tobacco Comment Last smoked: >10 yea rs [facility] Start: 12-12-2022 Alcohol Comment caffeine: coffee [facility] Medical Equipment Procedure Code Equipment Code Equipment Origin al Text Equipment Identifier Dates Insertion, pacemaker Endocardial pacing lead ()[id number] FDA Start: 02-14-2023 Insertion, pacemaker Single-chamber implantable pacemaker, rate-responsive ()[id number] FDA Start: 02-14-2023 Ventriculo-perit onea l/atrial shunt valve ()[id number] FDA Start: 03-12-2021 Goals Date Patient Goal Desired Activity /State Functional Status Date Assessment Result Facility 02-15-2023 Functional status Patient Not at [facility] Work Phone: 02-10-2023 Functional status Patient at Baseline [facility] Work Phone: 09-24-2021 Functional status Patient at Baseline [facility] Work Phone: Functional observable [facility] Mental Status Date Assessment Result Facility 02-15-2023 Cognitive function Cognitive Sta tus Patient at Baseline [facility] Work Phone: 02-10-2023 Cognitive function Cognitive Sta tus Patient at Baseline [facility] Work Phone: 09-24-2021 Cognitive function Cognitive Sta tus Patient at Baseline [facility] Work Phone: 01-09-2021 Cognitive functi ons [id number] [facility] Clinical Notes 01-22-2017 to 04-24-2023 Sindi [...] Acute hematogenous osteomyelitis, left ankle and foot ([facility]) 10/23/2022 Anxiety 10/23/2022 Basal cell carcinoma (BCC) of skin of right upper extremity including shoulder 10/23/2022 Hallux valgus (acquired), left foot 10/23/2022 Hammer toe 10/23/2022 Neuropathy due to type 2 diabetes mellitus ([facility]) 10/23/2022 Non-pressure chronic ulcer of other part of left foot with unspecified severity ([facility]) 10/23/2022 Osteomyelitis ([facility]) 10/23/2022 Peripheral arterial disease ([facility]) 10/23/2022 Peripheral neuropathy 10/23/2022 Polyneuropathy due to type 2 diabetes mellitus ([facility]) 10/23/2022 Skin ulcer ([facility]) 10/23/2022 Status post amputation of toe of left foot ([facility]) 10/23/2022 Type 2 diabetes mellitus with foot ulcer (CODE) ([facility]) 10/23/2022 Ulcer of lower extremity ([facility]) 10/23/2022 Skin ulcer of left great toe with fat layer exposed ([facility]) 10/23/2022 Toe ulcer, left, with fat layer exposed ([facility]) 10/23/2022 Unspecified chronic bronchitis ([facility]) 10/23/2022 Venous insufficiency (chronic) (peripheral) 10/23/2022 Atrial flutter ([facility]) 02/24/2007 Sinoatrial node dysfunction ([facility]) 06/09/2007 Centrilobular emphysema ([facility]) 05/19/2020 Chronic diastolic heart failure ([facility]) 06/09/2007 Essential hypertension ([facility]) 06/09/2007 Hemoptysis 05/19/2020 History of lymphoma 05/19/2020 Hx of amiodarone therapy 05/19/2020 Hyperlipidemia ([facility]) 04/17/2010 Hypertrophic obstructive cardiomyopathy ([facility]) 04/17/2010 ILD (interstitial lung disease) ([facility]) 05/19/2020 ZAYRA (obstructive sleep apnea) 05/20/2020 Sleep apnea 06/09/2007 Paroxysmal tachycardia, unspecified ([facility]) 06/09/2007 Syncope 08/05/2017 Memory loss 10/25/2022 Lesion of tongue 11/05/2022 Primary hyperparathyroidism ([facility]) 11/05/2022 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 ([facility]) 01/02/2023 Pharyngoesophageal dysphagia 01/02/2023 DDD (degenerative disc disease), lumbosacral 02/04/2023 Carcinoma in situ of tongue 03/20/2023 Aspiration into airway 03/20/2023 Atherosclerosis of [place] coronary artery without angina pectoris ([facility]) 02/20/2023 Chronic atrial fibrillation (HCC) ([facility]) 02/20/2023 Chronic edema 02/20/2023 COPD (chronic obstructive pulmonary disease) ([facility]) 02/20/2023 Diabetes mellitus ([facility]/HCC) 02/20/2023 High risk medication use 02/20/2023 History of B-cell lymphoma 02/20/2023 Presence of Watchman left atrial appendage closure device 02/20/2023 Status post angioplasty 02/20/2023 Resolved Ambulatory Problems Diagnosis Date Noted No Resolved Ambulatory Problems Past Medical History: Diagnosis Date A-fib (CMS/HCC) Anemia Arthritis Bronchitis CHF (congestive heart failure) (CMS/HCC) DVT (deep venous thrombosis) (CMS/HCC) Gout Heart disease Hypercholesterolemia (CMS/HCC) Hypertension (CMS/HCC) Joint pain Large B-cell lymphoma (CMS/HCC) Mononucleosis Pneumonia Past Surgical History: Procedure Laterality [...] 3 atorvastatin (Lipitor) 20 MG tablet biotin 64564 MCG tablet Take 1 tablet by mouth [...] BEDTIME FOLLOWING BRUSHING AND FLOSSING [DISCONTINUED] HYDROcodone-acetaminophen ([place]) 5-325 MG tablet [DISCONTINUED] metOLazone (Zaroxolyn) 5 [...] (CMS/HCC) VIRI today. documented in this encounter [facility] 04-18-2023 Evaluation note Encounter Date Diagnosis [...] if he continues to have extraparametal symptoms. [facility] Other 01-31-2024 History of Present illness Narrative* [...] right great toe (CMS/HCC) 3. Atherosclerosis of [place] coronary artery of [place] heart without angina pectoris 4. Chronic atrial fibrillation (CMS/HCC) 5. Mild hypertrophic obstructive cardiomyopathy (CMS/HCC) 6. Status post angioplasty 7. Hyperlipidemia, unspecified hyperlipidemia type 8. Essential hypertension 9. Presence of Watchman left atrial appendage closure device 10. Former smoker Scribe Attestation By signing my name below, I, Leslie Benavidez LPN , Scribe attest that this documentation has been prepared under the direction and in the presence of Luciana Burgess DO. [facility]: 1(188) 160-821401-31-2024 Instructions* Patient Instructions* Leslie Alvarez LPN - [...] from a cardiac standpoint [facility]: 1(452) 775-270001-18-2024 Evaluation note* Encounter Date Diagnosis Assessment Notes [...] on Trazadone. Pt to call with effectiveness. [facility] Other 01-08-2024 Evaluation note* Encounter Date Diagnosis Assessment Notes Treatment Notes Treatment Clinical Notes Mar, Restless leg syndrome (ICD-10 - G25.81) [facility] Other 01-03-2024 Evaluation note* Encounter Date Diagnosis [...] verbalizes understanding and agrees to treatment plan. [facility] Other 12-27-2023 Evaluation note* Encounter Date Diagnosis Assessment Notes Treatment Notes Treatment Clinical Notes Feb, Primary hyperparathyroidism (ICD-10 - E21.0) [facility] Other 12-22-2023 Evaluation note* Encounter Date Diagnosis Assessment Notes Treatment Notes Treatment Clinical Notes Feb, Type 2 diabetes mellitus with other circulatory complication, without long-term current use of insulin (ICD-10 - E11.59) Feb, Anxiety (ICD-10 - F41.9) [facility] Other 12-19-2023 Evaluation note* Encounter Date Diagnosis [...] see above -- under congestive heart failure. [facility] Other 12-12-2023 Progress note Author Sumit De La Cruz [facility] February 26, 2023 1:09pm Note Date/Time February 26, 2023 11:48am [facility] [address] [place] [address] Wound Center Provider Note Signed Patient: Sandra Potter MR#: [id number] : 1955 Acct:[id number] Age/Sex: 67 / M Copies to: MD Teri Vu DO Tonia Copsey, GOLDEN~ HPI Date of Visit Date of Visit: Date of Service: 02/26/2023 Time of Service: 11:44 Narrative HPI: 02/26/23 Adenike is a 67-year-old male presenting to [facility] wound care program for an initial visit [...] 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 Espinoza, and he and his do agree to this referral. We called the office and they do accept his insurance. I did decide to start topical antimicrobials such as Vashe Cleanser as well as Iodoflex dressings. [facility] for [facility] [...] wound start?: November 2022 Mode of Arrival/ [place]: Family Assistive Device Used Today: Wearing Ordered Boot/Shoe Lives with:: Spouse Appetite Description: Within Normal Limits Smoking Status: Former smoker [facility] Medical History (Updated 02/26/23 @ 11:48 [...] layer exposed Bed Appearance: Beefy Red and [place] Percent of Wound Bed Granulated/Red: 100 Percent [...] by MD Sumit De La Cruz> 02/26/23 [address] [facility] Work Phone: 1(326) 349-977612-07-2023 Evaluation note* Encounter Date Diagnosis Assessment Notes [...] continues to have twitches and extraparametal symptoms. 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 Pt agreed to POC Feb, [...] Hypocalcemia (ICD-10 - E83.51) Complete as ordered. [facility] Other 12-04-2023 Evaluation note* Encounter Date Diagnosis Assessment Notes Treatment Notes Treatment Clinical Notes Feb, Elevated serum free T4 level (ICD-10 - R79.89) Feb, Chronic fatigue, unspecified (ICD-10 - R53.82) Feb, Bradycardia (ICD-10 - R00.1) [facility] Other 11-26-2023 Discharge summary Author Subhash Duckworth [facility] February 10, 2023 3:01pm Note Date/Time February 10, 2023 3:02pm [facility] [address] [place] [address] Discharge Summary Signed Patient: Sandra Potter MR#: [id number] : 1955 Acct:[id number] Age/Sex: 67 / M Adm Date: 3 Loc: Room: [address] [place] [address]: Subhash Duckworth MD Copies to: DO Subhash Pollard MD~ Providers Date of Discharge: 02/10/23 Discharging [...] Days Location: Determined by Patient Ordered By: Obaydah M Daromar [place] cardiac event monitor (Routine) Timeframe: 1 Day Facility: [facility] - Location: [address] [place] [address] - O/P Ordered By: Deanne Gaxiola Follow Up: Teri Aragon DO [Primary Care Provider] - (Call office on Saturday to schedule follow-up with your Primary Care Provider in 3-5 days. ) Documented By: Subhash Duckworth MD 02/10/23 14 51 Signed By: <Electronically signed by Subhash Duckworth MD> 02/10/23 15[address] [facility] Work Phone: 1(918) 380-630111-26-2023 Progress note Author Mina Reilly [facility] February 10, 2023 2:13pm Note Date/Time February 10, 2023 2:08pm [facility] [address] [place] [address] Nephrology Progress Note Signed Patient: Sandra Potter MR#: [id number] : 1955 Acct:[id number] Age/Sex: 67 / M Adm Date: 3 Loc: Room: [address] [place] [address] Type: ADM IN Attending Dr: Subhash Duckworth [...] 0.5 Mg Tablet) 0.5 mg PO DAILY@0800 [facility] Stop: 02/11/24 07:59 Enoxaparin Sodium (Enoxaparin 40 Mg/0.4 Ml Syringe) 40 mg SUBCUT DAILY@10 [facility] Stop: 02/07/24 09:59 Last Admin: 02/10/23 10:35 Dose: Not Given Gabapentin (Gabapentin 600 Mg Tablet) 1,200 mg PO BID [facility] Stop: 02/06/24 20:59 Last Admin: 02/10/23 08:49 Dose: 1,200 mg Glipizide (Glipizide 2.5 Mg Tab.Er.24) 2.5 mg PO BID.WITH.MEALS [facility] Stop: 02/07/24 07:59 Last Admin: 02/10/23 08:50 Dose: 2.5 mg Sodium Chloride (0.9% Sodium Chloride 1,000 Ml) 1,000 mls @ 20 mls/hr IV .Q24H [facility] Stop: 02/11/24 15:59 Gentamicin Sulfate 220 mg/ (Sodium Chloride) 105.5 mls @ 211 mls/hr IV PREOP ONE Stop: 02/11/23 14:31 Vancomycin HCl 1.5 gm/ (Dextrose) 530 mls @ 353.333 mls/hr IV PREOP ONE; Protocol Stop: 02/11/23 15:29 Levothyroxine Sodium (Levothyroxine 25 Mcg Tablet) 25 mcg PO DAILY@0630 [facility] Stop: 02/07/24 06:29 Last Admin: 02/10/23 06:52 Dose: 25 mcg Magnesium Oxide (Magnesium Oxide 400 Mg Tablet) 400 mg PO BID [facility] Stop: 02/06/24 20:59 Last Admin: 02/10/23 08:49 [...] Tablet) 100 mcg PO DAILY PAT Stop: 11/22/24 08:59 Last Admin: 02/10/23 08:50 Dose: 100 [...] labs. Documented By: Mina Reilly MD 02/10/23 0961 Signed By: <Electronically signed by MD Mina Reilly> 02/10/23 [address] [facility] Work Phone: [phone] Progress note Author Deanne Gaxiola [facility] February 10, 2023 11:24am Note Date/Time February 10, 2023 11:24am [facility] [address] [place] [address] Cardiology Progress Note Signed Patient: Sandra Potter MR#: [id number] : 1955 Acct:[id number] Age/Sex: 67 / M Adm Date: 3 Loc: 4 Room: [address] [place] [address] Type: ADM IN Attending Dr: Subhash Duckworth [...] signed by MD Deanne Gaxiola> 02/10/23 [address] [facility] Work Phone: 1([phone]) 231-837511-25-2023 Progress note Author Mina Reilly [facility] February 09, 2023 3:30pm Note Date/Time February 09, 2023 3:30pm [facility] [address] [place] [address] Nephrology Progress Note Signed Patient: Sandra Potter MR#: [id number] : 1955 Acct:[id number] Age/Sex: 67 / M Adm Date: 3 Loc: 4 Room: [id number] Type: ADM IN Attending Dr: Subhash Duckworth [...] 0.5 Mg Tablet) 0.5 mg PO BID.WITH.MEALS [facility] Stop: 02/09/24 16:59 Enoxaparin Sodium (Enoxaparin 40 [...] 40 Mg Tablet.Dr) 40 mg PO BID [facility] Stop: 02/06/24 20:59 Last Admin: 02/09/23 08:20 Dose: 40 mg Potassium Chloride (Potassium Chloride Er 20 Meq Tab.Er.Prt) 40 meq PO DAILY PRN PRN Reason: Hypokalemia Stop: 02/08/24 08:42 Last Admin: 02/09/23 08:22 Dose: 40 meq Potassium Chloride (Potassium Chloride Er 20 Meq Tab.Er.Prt) 40 meq PO BID [facility] Stop: 02/09/24 08:59 Last Admin: 02/09/23 09:41 [...] Juliano Conteh M.D.02/08/2023 8:21 PM Dictation Location: [place] [address] Any impression(s) listed above is documentation that [...] signed by MD Mina Reilly> 02/09/23 1530 [facility] Work Phone: 1(686) 811-137411-25-2023 Progress note Author Subhash Duckworth [facility] February 09, 2023 2:33pm Note Date/Time February 09, 2023 2:33pm [facility] [address] [place] [address] Hospitalist Progress Note Signed Patient: Sandra Potter MR#: [id number] : 1955 Acct:[id number] Age/Sex: 67 / M Adm Date: 3 Loc: Room: [address] [place] [address] Type: ADM IN Attending Dr: Subhash Duckworth [...] Room Air 02/09/23 12:00 02/09/23 12:00 02/09/23 12:02/09/23 12:00 02/09/23 12:00 02/09/23 08:00 Narrative: Const [...] 02/06/23 22:00 02/08/23 21:50 Aspirin 81 Mg Tablet.Dr PO 02/06/24 21:59 81 mg HS PAT Administration Atorvastatin Calcium 20 mg 02/06/23 22:00 02/08/23 21:51 Atorvastatin 20 Mg Tablet PO 02/06/24 21:59 20 mg HS PAT Administration Atropine Sulfate 1 mg 02/07/23 03:28 Atropine Sulfate 1 Mg/10 Ml Syringe IV-PUSH ONCE PRN Bradycardia Bisacodyl 10 mg 02/06/23 16:30 Bisacodyl 5 Mg Tablet.Dr PO 02/06/24 16:29 DAILY PRN Constipation Bumetanide [...] No hematemesis, melena, or hematochezia. [facility]cardic with heart rate [...] <Electronically signed by Subhash Duckworth MD> 02/09/23 [address] [facility] Work Phone: 1(192) 144-208611-25-2023 Progress note Author Giniindiana Daxmarlys [facility] February 09, 2023 10:43am Note Date/Time February 09, 2023 10:35am [facility] [address] [place] [address] Cardiology Progress Note Signed Patient: Sandra Potter MR#: [id number] : 1955 Acct:[id number] Age/Sex: 67 / M Adm Date: 3 Loc: Room: [address] [place] [address] Type: ADM IN Attending Dr: Subhash Duckworth [...] signed by MD Deanne Gaxiola> 02/09/23 [address] [facility] Work Phone: 1(251) 535-199711-24-2023 Consult note Author Mina Reilly [facility] February 08, 2023 1:01pm Note Date/Time February 08, 2023 1:02pm [facility] [address] [place] [address] Nephrology Consult Note Signed Patient: Sandra Ptoter MR#: [id number] : 1955 Acct:[id number] Age/Sex: 67 / M Adm Date: 3 Loc: Room: [address] [place] [address] Type: ADM IN Attending Dr: Barry Cisneros MD Copies to: MD Mina Patel MD Matthew A Braniecki, DO~ Providers Consult Date: 02/08/23 Requesting Provider: Barry Cisneros MD Primary Care Provider: DO GREER Sky Reason for Consult: KVNG and hyperkalemia History [...] and no additional complaints, except as documented [facility] Medical History (Updated 02/08/23 @ 12:53 [...] 300 Mg Tablet) 300 mg PO DAILY [facility] Stop: 02/07/24 08:59 Last Admin: 02/08/23 08:31 Dose: 300 mg Aspirin (Aspirin 81 Mg Tablet.) 81 mg PO HS [facility] Stop: 02/06/24 21:59 Last Admin: 02/07/23 21:26 [...] 1 Mg Tablet) 1 mg PO BID.WITH.MEALS [facility] Stop: 02/08/24 07:59 Last Admin: 02/08/23 08:30 Dose: 1 mg Enoxaparin Sodium (Enoxaparin 40 Mg/0.4 Ml Syringe) 40 mg SUBCUT DAILY@10 [facility] Stop: 02/07/24 09:59 Last Admin: 02/08/23 09:46 Dose: 40 mg Gabapentin (Gabapentin 600 Mg Tablet) 1,200 mg PO BID PAT Stop: 02/06/24 20:59 Last Admin: 02/08/23 08:31 Dose: 1,200 mg Glipizide (Glipizide 2.5 Mg Tab.Er.24) 2.5 mg PO BID.WITH.MEALS [facility] Stop: 02/07/24 07:59 Last Admin: 02/08/23 08:30 Dose: 2.5 mg Levothyroxine Sodium (Levothyroxine 25 Mcg Tablet) 25 mcg PO DAILY@0630 [facility] Stop: 02/07/24 06:29 Last Admin: 02/08/23 06:02 Dose: 25 mcg Magnesium Oxide (Magnesium Oxide 400 Mg Tablet) 400 mg PO BID [facility] Stop: 02/06/24 20:59 Last Admin: 02/08/23 08:30 Dose: 400 mg Melatonin (Melatonin 5 Mg Tablet) 5 mg PO QHS PRN PRN Reason: Insomnia Stop: 02/06/24 16:29 Last Admin: 02/07/23 21:40 Dose: 5 mg Ondansetron HCl (Ondansetron 4 Mg/2 Ml Vial) 4 mg IV-PUSH Q8H PRN PRN Reason: Nausea And Vomiting Stop: 02/06/24 16:29 Pantoprazole Sodium (Pantoprazole 40 Mg Tablet.Dr) 40 mg PO BID [facility] Stop: 02/06/24 20:59 Last Admin: 02/08/23 08:31 Dose: 40 mg Potassium Chloride (Potassium Chloride Er 20 Meq Tab.Er.Prt) 40 meq PO DAILY PRN PRN Reason: Hypokalemia Stop: 02/08/24 08:42 Senna/Docusate Sodium (Sennosides/Docusate 8.6-50mg 1 Tab Tablet) 2 tab PO QHS [facility] Stop: 02/06/24 21:59 Last Admin: 02/07/23 21:26 Dose: 2 tab Sodium Chloride (Sodium Chloride 0.9 % 10 Ml Syringe) 0 ml IV-PUSH PRN PRN PRN Reason: Flush Stop: 02/06/24 12:17 Last Admin: 02/06/23 15:55 Dose: 10 ml Spironolactone (Spironolactone 25 Mg Tablet) 25 mg PO BID [facility] Stop: 02/08/24 08:59 Last Admin: 02/08/23 09:46 Dose: 25 mg Thiamine HCl (Thiamine 100 Mg Tablet) 100 mg PO DAILY [facility] Stop: 02/07/24 08:59 Last Admin: 02/08/23 08:30 [...] signed by MD Mina Reilly> 02/08/23 [address] [facility] Work Phone: 1([phone] 839-145611-24-2023 Progress note Author Barry [facility]ner[facility] February 08, 2023 12:42pm Note Date/Time February 08, 2023 10:23am [facility] [address] [place] [address] Hospitalist Progress Note Signed with Addenda Patient: Sandra Potter MR#: [id number] : 1955 Acct:[id number] Age/Sex: 67 / M Adm Date: 3 Loc: Room: [address] [place] [address] Type: ADM INOo Attending Dr: Barry Cisneros [...] signed by Barry Cisneros MD> 02/08/23 1023 [facility] Work Phone: 1(112) 218-326911-24-2023 Progress note Author Deanne Gaxiola [facility] February 08, 2023 11:45am Note Date/Time February 08, 2023 11:38am [facility] [address] [place] [address] Cardiology Progress Note Signed Patient: Sandra Potter MR#: [id number] : 1955 Acct:[id number] Age/Sex: 67 / M Adm Date: 3 Loc: Room: [address] [place] [address] Type: ADM INOo Attending Dr: Barry Cisneros [...] signed by MD Deanne Gaxiola> 02/08/23 1145 [facility] Work Phone: 1([phone]) 329-696311-23-2023 Progress note Author Mina Reilly [facility] February 07, 2023 2:32pm Note Date/Time February 07, 2023 2:32pm [facility] [address] [place], [place] [id number] Event Note Signed Patient: Sandra Potter MR#: [id number] : 1955 Acct:[id number] Age/Sex: 67 / M Adm Date: 3 Loc: Room: [address] [place] [address] Type: ADM INOo Attending Dr: Barry Cisneros [...] of hypercalcemia. Documented By: Mina Reilly MD 02/07/23 1427 Signed By: <Electronically signed by MD Mina Reilly> 02/07/23 1432 [facility] Work Phone: 1([phone]) 459-772211-23-2023 Consult note Author Deanne Gaxiola [facility] February 07, 2023 2:05pm Note Date/Time February 07, 2023 1:52pm [facility] [address] [place] [address] Cardiology Consult Note Signed Patient: Sandra Potter MR#: [id number] : 1955 Acct:[id number] Age/Sex: 67 / M Adm Date: 3 Loc: Room: [address] [place] [address] Type: ADM INOo Attending Dr: Barry Cisneros MD Copies to: MD Teri Patel, DO Deanne Gaxiola MD~ Cardiology HPI History of Present Illness [...] 2 mg tablet 4 mg PO QAM 10/09/17 [History Confirmed 02/07/23] magnesium oxide 400 mg [...] Saturday. The possibility of transferring him to [place] for pacemaker tomorrow discussed with the patient for social and family situation would prefer to stay here till Saturday to have the pacemaker done locally 2. Hold potassium replacement Tortal K less than 5 3. Check echocardiogram Documented By: Deanne Gaxiola MD 02/07/23 1350 Signed By: <Electronically signed by MD Deanne Gaxiola> 02/07/23 1404 [facility] Work Phone: 1([phone] 103-191711-23-2023 Progress note Author Barry Cisneros [facility] February 07, 2023 11:08am Note Date/Time February 07, 2023 11:08am [facility] [address] [place] [address] Hospitalist Progress Note Signed Patient: Sandra Potter MR#: [id number] : 1955 Acct:[id number] Age/Sex: 67 / M Adm Date: 3 Loc: Room: [address] [place] [address] Type: ADM INOo Attending Dr: Barry Cisneros [...] 02/06/23 22:00 02/06/23 21:13 Aspirin 81 Mg Tablet.Dr PO 02/06/24 21:59 81 mg HS PAT Administration Atorvastatin Calcium 20 mg 02/06/23 22:00 02/06/23 21:13 Atorvastatin 20 Mg Tablet PO 02/06/24 21:59 20 mg HS PAT Administration Atropine Sulfate 1 mg 02/07/23 03:28 Atropine Sulfate 1 Mg/10 Ml Syringe IV-PUSH ONCE PRN Bradycardia Bisacodyl 10 mg 02/06/23 16:30 Bisacodyl 5 [address] Tablet.Dr CARTER 02/06/24 16:29 DAILY PRN Constipation Bumetanide 2 [...] 21:00 02/07/23 09:03 Pantoprazole 40 Mg Tablet.Dr CARTER 02/06/24 20:59 40 mg BID PAT Administration [...] <Electronically signed by Barry Cisneros MD> 02/07/231107 [facility] Work Phone: 1([phone] 340-130311-22-2023 History and physical note Author Barry Cisneros [facility] February 06, 2023 4:29pm Note Date/Time February 06, 2023 4:20pm [facility] [address] [place] [address] Hospitalist H&P Signed Patient: Sandra Potter MR#: [id number] : 1955 Acct:[id number] Age/Sex: 67 / M Adm Date: 3 Loc: ER Room: Type: [facility] ER Attending Dr: Copies to: MD [...] with heart rate went to the 30s. [facility] Medical History (Updated 02/06/23 @ 16:22 [...] % (Auto) 16.3 % (.) 02/06/23 13:05 [place] % (Auto) 10.8 % (.) 02/06/23 13:05 Eos % (Auto) 5.4 % (.) 02/06/23 13:05 Baso % (Auto) 0.9 % (.) 02/06/23 13:05 Nucleat RBC Rel Count 0.1 /100 WBC (0-0.5) 02/06/23 13:05 Neut # (Auto) 3.7 x10E3/uL (1.8-7.7) 02/06/23 13:05 Lymph # (Auto) 0.9 x10E3/uL (1.00-4.8) L 02/06/23 13:05 [place] # (Auto) 0.6 x10E3/uL (0.0-0.8) 02/06/23 13:05 [...] pH 5.5 (5.0-9.0) 02/06/23 12:56 Ur Specific [place] 1.010 (1.001-1.030) 02/06/23 12:56 Urine Protein Negative [...] 1 Documented By: Barry Cisneros MD 02/06/23 5180 Signed By: <Electronically signed by Barry Cisneros MD> 02/06/23 1629 [facility] Work Phone: 1([phone]) 795-496711-22-2023 History and physical note Author Barry Cisneros [facility] February 06, 2023 4:29pm Note Date/Time February 06, 2023 4:20pm [facility] [address] [place] [address] Hospitalist H&P Signed Patient: Sandra Potter MR#: [id number] : 1955 Acct:[id number] Age/Sex: 67 / M Adm Date: 3 Loc: ER Room: Type: [facility] ER Attending Dr: Copies to: MD Bobby Patel, DO Teri Aragon, ~ HPI DATE OF EXAMINATION: 02/06/23 CHIEF [...] with heart rate went to the 30s. [facility] Medical History (Updated 02/06/23 @ 16:22 [...] % (Auto) 16.3 % (.) 02/06/23 13:05 [place] % (Auto) 10.8 % (.) 02/06/23 13:05 Eos % (Auto) 5.4 % (.) 02/06/23 13:05 Baso % (Auto) 0.9 % (.) 02/06/23 13:05 Nucleat RBC Rel Count 0.1 /100 WBC (0-0.5) 02/06/23 13:05 Neut # (Auto) 3.7 x10E3/uL (1.8-7.7) 02/06/23 13:05 Lymph # (Auto) 0.9 x10E3/uL (1.00-4.8) L 02/06/23 13:05 [place] # (Auto) 0.6 x10E3/uL (0.0-0.8) 02/06/23 13:05 [...] pH 5.5 (5.0-9.0) 02/06/23 12:56 Ur Specific [place] 1.010 (1.001-1.030) 02/06/23 12:56 Urine Protein Negative [...] signed by Barry Cisneros MD> 02/06/23 1629 [facility] Work Phone: 1([phone]) 619-614409-27-2023 Evaluation note* Encounter Date Diagnosis Assessment Notes Treatment Notes Treatment Clinical Notes Nov, Chronic venous insufficiency (ICD-10 - I87.2) [facility] Other 08-31-2023 Note [id number]:127[facility] 10-11-2022 Evaluation note* Encounter Date Diagnosis Assessment [...] with Rheumatology. He is also now following th Dr. Ding-- neurosurgery. 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 Patient will continue to follow with chief specialist leed. Specialty notes reviewed as received. Sep, Shortness [...] no improvement and will trial on Trazadone. [facility] Other 07-14-2023 Evaluation note* Encounter Date Diagnosis Assessment Notes Treatment Notes Treatment Clinical Notes Sep, Low serum potassium level (ICD-10 - E87.6) [facility] Other 06-28-2023 Evaluation note* Encounter Date Diagnosis [...] to MRI due to anxiety and claustrophobia. [facility] Other 06-26-2023 Evaluation note* Encounter Date Diagnosis Assessment Notes Treatment Notes Treatment Clinical Notes Aug, Situational anxiety (ICD-10 - F41.8) [facility] Other 06-20-2023 Evaluation note* Encounter Date Diagnosis [...] or radiculopathy, lumbar region (ICD-10 - M47.816) [facility] Other 06-13-2023 Evaluation note* Encounter Date Diagnosis [...] Will call with resutls and further recommendations. [facility] Other 05-09-2023 [facility]* Encounter Date Diagnosis Assessment Notes Treatment Notes Treatment Clinical Notes Jun, Cervical back pain with evidence of disc disease (ICD-10 - M50.90) [facility] Other 03-30-2023 Evaluation note* Encounter Date Diagnosis [...] note writ ten by Shantanu Li LPN, Extrusion Technician. Edited and approved by Dr. Lavon Sandoval MD. [facility] Other 03-02-2023 Evaluation note* Encounter Date Diagnosis [...] note writ ten by Shantanu Li LPN, Extrusion Technician. Edited and approved by Dr. Lavon Sandoval MD. [facility] Other 02-09-2023 Evaluation note* Encounter Date Diagnosis [...] note writ ten by Sunday Melara MA, Extrusion Technician. Edited and approved by Dr. Lavon Sandoval [...] negative findings were considered in medical decision-making. [facility] Other 02-03-2023 Evaluation note* Encounter Date Diagnosis Assessment Notes Treatment Notes Treatment Clinical Notes Apr, Type 2 diabetes mellitus with other circulatory complication, without long-term current use of insulin (ICD-10 - E11.59) [facility] Other 01-16-2023 Evaluation note* Encounter Date Diagnosis [...] (ICD-10 - M1A.9XX0) Stable, no gout attacks. [facility] Other 12-19-2022 Evaluation note* Encounter Date Diagnosis Assessment Notes Treatment Notes Treatment Clinical Notes Feb, Acquired hypothyroidism (ICD-10 - E03.9) [facility] Other 10-17-2022 Evaluation note* Encounter Date Diagnosis Assessment Notes Treatment Notes Treatment Clinical Notes Dec, Claustrophobia (ICD-10 - F40.240) [facility] Other 10-06-2022 Progress note Author Sima Wagner [facility] December 21, 2021 9:07am Note Date/Time December 21, 2021 9: 07am [facility] [address] [place] [address] Wound Center Provider Note Signed Patient: Sandra Potter MR#: [id number] : 1955 Acct:[id number] Age/Sex: 66 / M Copies to: Pete Begum,FILIPE, MS, CWS Geeta Dumont APRN, NIB INSPECTOR Sima Wagner APRN~ HPI Date of Visit Date of Visit: Date of Service: 12/21/2021 Time of Service: 08:58 Narrative HPI: 12/21/21 Adenike is a 66-year-old male presenting to [facility] wound care program [facility]ak[facility] initial visit for [...] wound start?: October 2021 Mode of Arrival/ [place]: Personal vehicle Lives with:: Spouse Appetite Description: Within Normal Limits Who helps w/ dressing change?: Self Smoking Status: Former smoker [facility] Medical History (Updated 12/21/21 @ 09:06 [...] 08:34 12/21/21 08:34 12/21/21 08:34 12/21/21 08:34 10/06/22 08:34 Const General: cooperative, comfortable and no [...] extends to tendon,bone Bed Appearance: Beefy Red, [place] and Yellow Percent of Wound Bed Granulated/Red: [...] <Electronically signed by GOLDEN Wagner> 12/21/21 0907 [facility] Work Phone: [phone] 169-731109-30-2022 Evaluation note* Encounter Date Diagnosis Assessment Notes [...] Nov, Encounter for immunization (ICD-10 - Z23) [facility] Other 09-15-2022 Evaluation note* Encounter Date Diagnosis Assessment Notes Treatment Notes Treatment Clinical Notes Nov, Other chronic pain (ICD-10 - G89.29) Nov, Cervical back pain with evidence of disc disease (ICD-10 - M50.90) [facility] Other 09-12-2022 Evaluation note* Encounter Date Diagnosis [...] verbalizes understanding and agrees c tx plan. [facility] Other 08-15-2022 Evaluation note* Encounter Date Diagnosis [...] any SOB, chest pain or exertional dyspnea. [facility] Other 07-25-2022 Evaluation note* Encounter Date Diagnosis Assessment Notes Treatment Notes Treatment Clinical Notes Sep, Hypokalemia (ICD-10 - E87.6) [facility] Other 07-15-2022 Evaluation note* Encounter Date Diagnosis [...] foot (ICD-10 - M86.172) Left great toe [facility] Other 06-14-2022 Note [id number]06-07-2022 Evaluation note* Encounter Date Diagnosis Assessment Notes [...] understanding and agrees with plan of care. [facility] Other 03-28-2022 Evaluation note* Encounter Date Diagnosis [...] fluid intake monitor your intake and output. [facility] Other 12-13-2021 Note From: Kathi Spangler ([facility] ([facility])) To: Francisco Li DO; Sent: 02/27/2021 07:26:47 EST Subject: FW: Medication Management Due Date/Time: 02/27/2021 22:32:00 EST From: [facility] To: Francisco Li DO Sent: February 25, 2021 9:32:13 PM DATA ENTRY OPERATOR Subject: Medication Management Due: February 26, 2021 12:32:03 AM DATA ENTRY OPERATOR On Hold Pending Signature Drug: glipiZIDE (glipiZIDE 2.5 mg oral tablet, extended release), TAKE 1 TABLET BY MOUTH TWICE DAILY Quantity: 180 tab(s) Days Supply: 90 Refills: 3 Substitutions Allowed Notes from Pharmacy: - First Attempt Ref: [id number] Dispensed Drug: glipiZIDE (glipiZIDE 2.5 mg oral tablet, extended release), TAKE 1 TABLET BY MOUTH TWICE DAILY Quantity: 180 tab(s) Days Supply: 90 Refills: 3 Substitutions Allowed Notes from Pharmacy: Requesting 1 year supply From: Francisco Li DO To: [facility] Sent: 02/27/2021 07:31:43 EST Subject: FW: Medication Management Submitted: Complete:glipiZIDE (glipiZIDE 2.5 mg oral tablet, extended release) Signed by Francisco Li DO 02/27/2021 07:31:00 EST Approved glipiZIDE (GLIPIZIDE 2.5MG TAB XL) TAKE 1 TABLET BY MOUTH TWICE DAILY Qty: 180 tab(s) Days Supply: 90 Refills: 3 Substitutions Allowed Route To Pharmacy - [facility] Note from Pharmacy: Requesting 1 year [facility]12-01-2021 Note From: Kathi Spangler ([facility] ([facility])) To: Francisco Li DO; Sent: 02/15/2021 07:39:49 EST Subject: FW: Medication Management Due Date/Time: 02/15/2021 23:39:00 EST Patient matched by Kathi Spangler on 02/15/2021 07:39:43 EST From: [facility] To: Francisco Li DO Sent: February 14, 2021 10:39:16 PM DATA ENTRY OPERATOR Subject: Medication Management Due: February 15, 2021 5:07:44 PM DATA ENTRY OPERATOR On Hold Pending Signature Drug: omeprazole (omeprazole 40 mg oral delayed release capsule), TAKE 1 CAPSULE BY MOUTH TWICE DAILY Quantity: 180 cap(s) Days Supply: 90 Refills: 3 Substitutions Allowed Notes from Pharmacy: - First Attempt Ref: [id number] Dispensed Drug: Omeprazole 40 MG Oral Capsule [...] Notes from Pharmacy: - First Attempt Ref: [id number] Dispensed Drug: levothyroxine (levothyroxine 50 mcg (0.05 mg) oral tablet), TAKE 1 TABLET BY MOUTH DAILY Quantity: 90 tab(s) Days Supply: 90 Refills: 3 Substitutions Allowed Notes from Pharmacy: Requesting 1 year supply From: Francisco Li DO To: [facility] Sent: 02/15/2021 07:59:23 EST Subject: [...] SERVICE Note from Pharmacy: [id number] Progress note Author Sandra Danielson [facility] November 10, 2020 10:56am Note Date/Time November 10, 2020 10 :41am [facility] at [address] [address] Hem/Onc Follow Up Note - OP Signed Patient: Sandra Potter MR#: [id number] : 1955 Acct:[id number] Age/Sex: 65 / M Type: REG RCR Copies to: Francisco Li~ Date of Service: 11/10/2020 Time of Service: [...] arthroplasty in ; Sleevegastrectomy in 2011 at [facility]. FAMILY HISTORY: One brother, one son and no cancer. One paternal aunt had unknown type of cancer in her age of 70s. 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 Former [...] He had CT chest in 02/2020 at [facility] 11/09/20 had bronchoscopy at [facility] in august. told it was scar tissue. [...] for coordination of care (as documented) and vehw-ig-dnbs counseling of patient and/or family. [facility] - Medical History Medical History: Medical [...] signed by Sandra Danielson II, DO> 11/10/20 [facility] Work Phone: [phone]) 385-374906-10-2021 History of Present illness Narrative* Jacey Rizvi RN - 08/25/2020 2:02 PM EDT Discharge instructions reviewed with pt. Pt verb understanding. documented in this [facility] Work Phone: [phone]) 623-525306-10-2021 Hospital Discharge instructions* Instructions* Ulisses Nieves MD - 08/25/2020 Images from the original note were not included. [facility] POST-BRONCHOSCOPY INSTRUCTIONS 1. ACTIVITY No driving, operating [...] QUESTIONS, PLEASE CALL YOUR DOCTOR OR THE [facility] GI [facility] AT [phone]. Bronchoscopy: What to Expect at Home Your [...] your doctor if you can take an aqlq-fvx-srppllm medicine. ? If you think your pain [...] Where can you learn more? Go to [email or web address] and sign in to your [employer] account. Enter S288 in the Search Health Information box to learn more about Bronchoscopy: What to Expect at Home. If you do not have an account, please click on the Sign Up Now link. Current as of: July 27, 2016 Content Version: 11.5 9962-5285 [employer]. Care instructions adapted under license by [employer]. If youhave questions about a medical condition or this instruction, always ask your healthcare professional. [employer] disclaims any warranty or liability for your use of this information. documented in this [facility] Work Phone: 1([phone]) 865-563402-25-2021 Progress note Author Brendan Bolaños [facility] May 12, 2020 1:33pm Note Date/Time May 12, 2020 1:27pm [facility] [place] [address] Hem/Onc Follow Up Note - OP Signed Patient: Sandra Potter MR#: [id number] : 1955 Acct:[id number] Age/Sex: 64 / M Type: REG RCR [...] He had CT chest in 02/2020 at [facility], was told that there was no [...] arthroplasty in ; Sleevegastrectomy in 2011 at [facility]. FAMILY HISTORY: One brother, one son and no cancer. One paternal aunt had unknown type of cancer in her age of 70s. 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 Former smoker with a 100 pack-year smoking [...] MUSCULOSKELETAL: Positive for chronic joint pain, stable. [facility] - Medical History Medical History: Medical [...] have personally reviewed his CT chest at [facility], no evidence of disease. Hemoptysis is [...] for coordination of care (as documented) and qedc-hq-ekod counseling of patient and/or family. Dictated By: Brendan Bolaños MD DD/ 1326 Signed By: <Electronically signed by Brendan Bolaños MD> 05/12/20 1333 [facility] Work Phone: [phone]) [phone] Progress note Author Brendan Bolaños [facility] November 12, 2019 4:58pm Note Date/Time November 12, 2019 3: 09pm [facility] [place] [address] Hem/Onc Follow Up Note - OP Signed Patient: Sandra Potter MR#: [id number] : 1955 Acct:[id number] Age/Sex: 64 / M Type: REG RCR [...] arthroplasty in ; Sleevegastrectomy in 2011 at [facility]. FAMILY HISTORY: One brother, one son and no cancer. One paternal aunt had unknown type of cancer in her age of 70s. 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 Former smoker with a 100 pack-year smoking [...] index finger paronychia on antibiotics and improving. [facility] - Medical History Medical History: Medical [...] % (Auto) 71.2, Lymph % (Auto) 12.0, [place] % (Auto) 12.1, Eos % (Auto) 4.0, Baso % (Auto) 0.7, Neut # (Auto) 4.4, Lymph # (Auto) 0.7 L, [place] # (Auto) 0.7, Eos # (Auto) 0.2, [...] for coordination of care (as documented) and wxne-ac-uvse counseling of patient and/or family. Dictated By: Brendan Bolaños MD DD/ 1509 Signed By: <Electronically signed by Brendan Bolaños MD> 11/12/19 1658 [facility] Work Phone: [phone]) [phone] Progress note Author Brendan Bolaños [facility] July 28, 2019 2:56pm Note Date/Time July 28, 2019 11:12 am [facility] at [address] [address] Hem/Onc Follow Up Note - OP Signed Patient: Sandra Potter MR#: [id number] : 1955 Acct:[id number] Age/Sex: 64 / M Type: REG RCR [...] arthroplasty in ; Sleevegastrectomy in 2011 at [facility]. FAMILY HISTORY: One brother, one son and no cancer. One paternal aunt had unknown type of cancer in her age of 70s. 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 Former smoker with a 100 pack-year smoking [...] index finger paronychia on antibiotics and improving. [facility] - Medical History Medical History: Medical [...] 7 Days 07/28/19 10:34: PHA Creatinine Clear [id number], Sodium 134 L, Potassium 3.6,Chloride 97, Carbon [...] for coordination of care (as documented) and axeb-ev-wyab counseling of patient and/or family. Dictated By: Brendan Bolaños MD DD/ 1112 Signed By: <Electronically signed by Brendan Bolaños MD> 07/28/19 4701 [facility] Work Phone: 1(158) 660-445111-12-2019 Progress note Author Brendan Bolaños [facility] January 27, 2019 10:13am Note Date/Time January 27, 2019 9:57am [facility] at [address] [address] Hem/Onc Follow Up Note - OP Signed Patient: Sandra Potter MR#: [id number] : 1955 Acct:[id number] Age/Sex: 63 / M Type: REG RCR [...] arthroplasty in ; Sleevegastrectomy in 2011 at [facility]. FAMILY HISTORY: One brother, one son and no cancer. One paternal aunt had unknown type of cancer in her age of 70s. 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 Former smoker with a 100 pack-year smoking [...] 7 Days 01/24/19 11:48: PHA Creatinine Clear 61.3905023368, Sodium 142, Potassium 4.4, Chloride 101, Carbon [...] % (Auto) 63.0, Lymph % (Auto) 15.6, [place] % (Auto) 15.8, Eos % (Auto) 4.5, Baso % (Auto) 1.1, Neut # (Auto) 3.3, Lymph # (Auto) 0.8 L, [place] # (Auto) 0.8, Eos # (Auto) 0.2, [...] for coordination of care (as documented) and fbph-kp-mjee counseling of patient and/or family. Dictated By: Brendan Bolaños MD DD/ 0955 Signed By: <Electronically signed by Brendan Bolaños MD> 01/27/19 1014 [facility] Work Phone: [phone]) [phone] Progress note Author Brendan Bolaños [facility] August 27, 2018 9:42am Note Date/Time August 27, 2018 9:37 am [facility] at [place] [id number] Hem/Onc Follow Up Note - OP Signed Patient: Sandra Potter MR#: [id number] : 1955 Acct:[id number] Age/Sex: 63 / M Type: REG RCR [...] arthroplasty in ; Sleevegastrectomy in 2011 at [facility]. FAMILY HISTORY: One brother, one son and no cancer. One paternal aunt had unknown type of cancer in her age of 70s. 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 Former smoker with a 100 pack-year smoking [...] for coordination of care (as documented) and jokv-us-icrt counseling of patient and/or family. Dictated By: Brendan Bolaños MD DD/ 0937 Signed By: <Electronically signed by Brendan Bolaños MD> 08/27/18 0942 [facility] Work Phone: [phone] Progress note Author Brendan Bolaños [facility] August 19, 2018 10:20am Note Date/Time August 19, 2018 10:16 am [facility] [place] [address] Hem/Onc Follow Up Note - OP Signed Patient: Sandra Potter MR#: [id number] : 1955 Acct:[id number] Age/Sex: 63 / M Type: REG RCR [...] arthroplasty in ; Sleevegastrectomy in 2011 at [facility]. FAMILY HISTORY: One brother, one son and no cancer. One paternal aunt had unknown type of cancer in her age of 70s. 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 Former smoker with a 100 pack-year smoking [...] 7 Days 08/13/18 13:50: PHA Creatinine Clear 73.4805812875, Sodium 144, Potassium 3.7, Chloride 103, Carbon [...] % (Auto) 67.9, Lymph % (Auto) 13.9, [place] % (Auto) 13.0, Eos % (Auto) 4.7, Baso % (Auto) 0.5, Neut # (Auto) 3.9, Lymph # (Auto) 0.8 L, [place] # (Auto) 0.7, Eos # (Auto) 0.3, [...] for coordination of care (as documented) and qzea-et-vvib counseling of patient and/or family. Dictated By: Brendan Bolaños MD DD/ 1014 Signed By: <Electronically signed by Brendan Bolaños MD> 08/19/18 1020 [facility] Work Phone: [phone] 499-288405-07-2019 Progress note Author Brendan Bolaños [facility] July 22, 2018 12:33pm Note Date/Time July 22, 2018 8:59am [facility] [place] [address] Hem/Onc Follow Up Note - OP Signed with Addenda Patient: Sandra Potter MR#: [id number] : 1955 Acct:[id number] Age/Sex: 63 / M Type: REG RCR [...] arthroplasty in ; Sleevegastrectomy in 2011 at [facility]. FAMILY HISTORY: One brother, one son and no cancer. One paternal aunt had unknown type of cancer in her age of 70s. 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 Former smoker with a 100 pack-year smoking [...] 7 Days 07/17/18 10:18: PHA Creatinine Clear [id number], Sodium 139, Potassium 4.4, Chloride 99, Carbon [...] % (Auto) 65.4, Lymph % (Auto) 14.5, [place] % (Auto) 13.9, Eos % (Auto) 5.3, Baso % (Auto) 0.9, Neut # (Auto) 3.3, Lymph # (Auto) 0.7 L, [place] # (Auto) 0.7, Eos # (Auto) 0.3, [...] for coordination of care (as documented) and qurx-qs-lajh counseling of patient and/or family. Dictated By: Brendan Bolaños MD DD/ 0858 Signed By: <Electronically signed by Brendan Bolaños MD> 07/22/18 1043 [facility] Work Phone: [phone] 790-471811-20-2018 Progress note Author [facility] February 04, 2018 4:01pm Note Date/Time February 04, 2018 3:10pm [facility] [place] [address] Hem/Onc Follow Up Note - OP Signed Patient: Sandra Potter MR#: [id number] : 1955 Acct:[id number] Age/Sex: 62 / M Type: REG RCR Copies to: Francisco Li MD W Nannette Burgess DO~ Subjective [...] arthroplasty in ; Sleevegastrectomy in 2011 at [facility]. FAMILY HISTORY: One brother, one son and no cancer. One paternal aunt had unknown type of cancer in her age of 70s. 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 Former smoker with a 100 pack-year smoking [...] no additional complaints except as documented ONC PMFSH - General Attestation statement: The following information [...] Temp 97.7 F 02/04/18 14:27 Pulse 66 11/20/18 14:27 Resp 16 02/04/18 14:27 BP 134/73 [...] % (Auto) 65.4, Lymph % (Auto) 14.0, [place] % (Auto) 15.6, Eos % (Auto) 4.1, Baso % (Auto) 0.9, Neut # (Auto) 3.6, Lymph # (Auto) 0.8 L, [place] # (Auto) 0.9 H, Eos # (Auto) [...] Date of Service: 01/31/18 XR/XR chest 2V*: PENITENTIARY MED USE Copies to: Stephanie Burgess DO~ CHEST STUDY, 2 VIEWS: CLINICAL INFORMATION: Long-term [...] M.D.01/31/2018 1:50 PM Transcribed By: CHAPINCITO 01/31/18 8222 Dictated By: Norm Pulido MD 01/31/18 7420 Assessment and Plan (1) DLBCL (diffuse large [...] for coordination of care (as documented) and xgud-sz-afhb counseling of patient and/or family. Dictated By: Danya Quach MD DD/ 0920 Signed By: <Electronically signed by Danya Quach MD> 02/04/18 1601 [facility] Work Phone: [phone]) 464-201605-15-2018 Progress note Author Brendan Bolaños [facility] July 30, 2017 10:01am Note Date/Time July 30, 2017 9:31a [facility] at [address] [address] Hem/Onc Follow Up Note - OP Signed Patient: Sandra Potter MR#: [id number] : 1955 Acct:[id number] Age/Sex: 62 / M Type: REG RCR [...] arthroplasty in ; Sleevegastrectomy in 2011 at [facility]. FAMILY HISTORY: One brother, one son and no cancer. One paternal aunt had unknown type of cancer in her age of 70s. 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 Former smoker with a 100 pack-year smoking [...] % (Auto) 12.8 % (.) 07/29/17 07:58 [place] % (Auto) 13.1 % (.) 07/29/17 07:58 Eos % (Auto) 5.1 % (.) 07/29/17 07:58 Baso % (Auto) 1.1 % (.) 07/29/17 07:58 Neut # (Auto) 3.5 x10E3/uL (1.8-7.7) 07/29/17 07:58 Lymph # (Auto) 0.7 x10E3/uL (1.00-4.8) L 07/29/17 07:58 [place] # (Auto) 0.7 x10E3/uL (0.0-0.8) 07/29/17 07:58 [...] for coordination of care (as documented) and alzi-yy-gfsz counseling of patient and/or family. 25 - 35 minutes Dictated By: Brendan Bolaños MD DD/ Signed By: <Electronically signed by Brendan Bolaños MD> 07/30/17 1001 [facility] Work Phone: [phone]) 541-244402-13-2018 Progress note Author Brendan Bolaños [facility] April 30, 2017 6:01pm Note Date/Time April 30, 2017 4:16pm [facility] [address] [address] Hem/Onc Follow Up Note - OP Signed Patient: Sandra Potter MR#: [id number] : 1955 Acct:[id number] Age/Sex: 61 / M Type: REG RCR [...] for coordination of care (as documented) and qpad-js-oldk counseling of patient and/or family. 25 - 35 minutes Dictated By: Brendan Bolaños MD DD/ 2436 Signed By: <Electronically signed by Brendan Bolaños MD> 04/30/17 4141 [facility] Work Phone: [phone] Progress note Author Brendan Bolaños [facility] January 22, 2017 1:16pm Note Date/Time January 22, 2017 1 :06pm [facility] [address] [address] Hem/Onc Follow Up Note - OP Signed Patient: Sandra Potter MR#: [id number] : 1955 Acct:[id number] Age/Sex: 61 / M Type: REG RCR [...] third week after cycle 3, hospitalized between 09/29-7/19, received IV vancomycin, Zosyn and Levaquin, discharged [...] for coordination of care (as documented) and zcec-ie-zcxv counseling of patient and/or family. 25 - 35 minutes Dictated By: Brendan Bolaños MD DD/ 1305 Signed By: <Electronically signed by Brendan Bolaños MD> 01/22/17 1316 [facility] Work Phone: Chief complaint Narrative - ReportedSANDRA POTTER is being seen for a cardiovascular evaluation . [id number]-Jszqtlxxkt-DRT Brandi Mathur [address] [place] Work Phone: Evaluation + Plan note No data available for this section [facility] Diagnosis Preop testing- Primary Preoperative examination, unspecified documented in this encounter [employer] Work Phone: evaluation note* Diagnosis COVID-19 ruled out by laboratory testing- Primary documented in this encounter [facility] Phone: evaluation note* Constitutional: Well developed, awake/alert/oriented [...] oriented x3.Psychological: Appropri ate mood and behavior [facility] Diagnosis Cough Hemoptysis Hemoptysis, unspecified SOB (shortness of breath) Shortness of breath documented in this encounter [facility] Phone: evaluation note* Diagnosis SOB (shortness of breath) Shortness of breath Hemoptysis Hemoptysis, unspecified documented in this encounter [facility] Phone: evaluation noteNo [employer]group [employer] Other Evaluation note* Diagnosis Onset Date Resolution [...] without comorbidity) chronic Peripheral neuropathy chroni c [facility] Work Phone: Evaluation note* Diagnosis [...] 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 [facility] Work Phone: evaluation noteNo assessment information available [facility] Work Phone: evaluation note* Diagnosis Onset Date Resolution Status Diabetes 1.5, managed as type 2 acute Hypercalcemia acute A-fib chronic CHF (congestive heart failure), NYHA class I chronic CKD (chronic kidney disease) stage 3, GFR 30-59 ml/min chronic 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 Joint pain chronic Obesity (BMI 35.0-39.9 without comorbidity) chronic Peripheral neuropathy chroni c [facility] Work Phone: evaluation note* Diagnosis Onset Date [...] chronic Obesity (BMI 35.0-39.9 without comorbidity) chronic [facility] Work Phone: evaluation note* Diagnosis Onset Date [...] 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 [facility] Work Phone: Evaluation note* Diagnosis [...] Generalized weakness acute Symptomatic bradycardia acut e [facility] Work Phone: Evaluation note* Diagnosis [...] without comorbidity) chronic Peripheral neuropathy chroni c [facility] Work Phone: Evaluation note* Diagnosis Preoperative clearance Unspecified pre-operative examination Amputation of right great toe (CMS/HCC) Atherosclerosis of [place] coronary artery of [place] heart without angina pectoris Chronic atrial fibrillation (CMS/HCC) Atrial fibrillation Mild hypertrophic obstructive cardiomyopathy (CMS/HCC) Status post angioplasty Postsurgical percutaneous transluminal coronary angioplasty status Hyperlipidemia, unspecified hyperlipidemia type Essential hypertension Unspecified essential hypertension Presence of Watchman left atrial appendage closure device Former smoker Personal history of tobacco use, presenting hazards to health documented in this encounter [facility] Work Phone: Evaluation note* Diagnosis 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)- Primary 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, part unspecified documented in this encounter [facility] HealthcareEvaluation note* Diagnosis Onset Date Resolution Status Bradycardia [...] without comorbidity) chronic Peripheral neuropathy chroni c Acquired hypothyroidism acut e Chronic venous insufficiency acute CKD (chronic kidney disease) stage 3, GFR 30-59 ml/min acute COPD (chronic obstructive pulmonary disease) acute Non-ST elevation [place] (NSTEMI) acute Persistent atrial fibrillation acute Primary hyperparathyroidism acute Restless leg syndrome acute Situational anxiety acute Thyroid disease acute CHF (congestive heart failure), NYHA class I chronic Diabetes 1.5, managed as type 2 chronic [facility] Work Phone: History general Narrative - Reported* [...] 12/06 Hospitalization History No know Hospitalization history [facility] Other [facility] general Narrative - Reported* Type Description Date [...] Surgical History 12/06 Hospitalization History No Hospitalization [facility] Other SI-[facility] general Narrative - Reported* Type Description Date [...] amputation 0 09/2021 Hospitalization History No Hospitalization [facility] Other history general Narrative - Reported* Type [...] amputation 0 09/2021 Hospitalization History No Hospitalization [facility] Other SI-BONE general Narrative - Reported* Type Description Date [...] amputation 0 09/2021 Hospitalization History No Hospitalization [facility] Other history general Narrative - Reported* Type [...] amputation 12/2021 Hospitalization History see surgical hx [facility] Other history general Narrative - Reported* Type [...] History gastric sleeve Hospitalization History see surgical [facility] Other history general Narrative - Reported* Type [...] cardiac pacemeker 2022 Hospitalization History see surgical [facility] Other history general Narrative - Reported* Type [...] HYPERCALCEMIA 02/08/2023 Hospitalization History PACEMAKER PLACEMENT 01/17 [facility] Other History of Present illness Narrative* PCP: [...] atrial appendage closure for stroke risk reduction. 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 No tub baths, soaking, or swimming for one week. May shower the next day after your procedure. * Follow Up Appointment 1:Physician/Dept/Service: Primary CardiologyCall to Schedule in: 1-2 weeksComments: Please follow-up with your Primary Switcher in 1-2 weeks after your Watchman procedure * Follow Up Appointment 2:Physician/Dept/Service: 45 day post-Watchman imaging (AYESHA or CTA) Hkhufewl: You will have imaging (AYESHA or CTA) around the 45 day juliano. Please contact Jo Burris if you have not been notified of this appointment in 2-3 weeks [facility] No data available for this section [facility] Author Vivian Del Rosario [facility] November 10, 2021 3:20pm Note Date/Time November 10, 2021 10 :40am [facility] at [address] [address] Hem/Onc Follow Up Note - OP Signed Patient: Sandra Potter MR#: [id number] : 1955 Acct:[id number] Age/Sex: 66 / M Type: REG RCR Copies to: Teri Aragon, DO Sandra Margaret Danielson, II, DO~ Date of Service: [...] arthroplasty in ; Sleevegastrectomy in 2011 at [facility]. FAMILY HISTORY: One brother, one son and no cancer. One paternal aunt had unknown type of cancer in her age of 70s. 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 Former smoker with a 100 pack-year smoking [...] He had CT chest in 02/2020 at [facility] 11/09/20 had bronchoscopy at [facility] in august. told it was scar tissue. [...] for coordination of care (as documented) and cmzc-rr-fjbv counseling of patient and/or family. [facility] - Medical History Medical History: Medical History (Last Reviewed 09/20/21 @ 19:34 by Pedro Hicks RN) Diabetes mellitus Hx of intestinal obstruction Hyperlipemia Hypertension Hypothyroid - Surgical History Surgical History: Surgical History (Last Reviewed 09/20/21 @ 19:34 by Pedro iHcks RN) H/O heart artery stent History of [...] % (Auto) 63.7, Lymph % (Auto) 15.5, [place] % (Auto) 12.3, Eos % (Auto) 7.6, Baso % (Auto) 0.9, Neut # (Auto) 4.1, Lymph # (Auto) 1.0, [place] # (Auto) 0.8, Eos # (Auto) 0.5 [...] 1039 Signed By: <Electronically signed by GOLDEN Park Molly Carin> 11/10/21 [facility] Work Phone: Progress note No data available for this section [facility] Summary Purpose Family History Unknown Family Member [...] Unknown Dementia Unknown father Cardiovascular disease Unknown father Unknown Heart disease Unknown Not Specified Unknown Hypertension Unknown Advance Directives Advance Directive Response Recorded Date/ Time Advance Directives No November 09, 2016 2:46pm Documents on File Type Date Recorded Patient Lead Athlete Expl anation ACP-Advance Directive ACP-Power of Wire Basket Maker Documents on File Type Date Recorded Patient Lead Athlete Expl anation ACP-Advance Directive ACP-Power of Wire Basket Maker Documents on File Type Date Recorded Patient Lead Athlete Expl anation Advance Directives and Living Will Power of Wire Basket Maker Advance Directive Response Recorded Date/ Time Advance [...] Chief Complaint I50.9 R06.02 type 2 diabets mellulitis G89.29 [...] Heart Monitor upon Discharge low heart rate [facility] Follow Up R53.83;M79.89;E83.42;E87.6;E87.5;M10.09;M15.0;Z79. Renal Hosp F/U [...] Heart Monitor upon Discharge low heart rate [facility] Follow Up R53.83;M79.89;E83.42;E87.6;E87.5;M10.09;M15.0;Z79. Renal Hosp F/U [...] 35.0-39.9 without comorbidity) Peripheral neuropathy Chief Complaint weakness, dizzy Heart Monitor upon Discharge low heart rate [facility] Follow Up R53.83;M79.89;E83.42;E87.6;E87.5;M10.09;M15.0;Z79. Renal Hosp F/U c02.3 left great toe / (Dr Bolden) Anxiety e87.8 n18.31 e11.59 Medication Discussion - Increase Dose chronic nonpressure ulcer l foot r09.89 t17.908a Wellness n18.31 E87.8 Renal 2 Month Follow Up elevated BP Reason for Visit Bradycardia Generalized weakness Hypercalcemia [...] Obesity (BMI 35.0-39.9 without comorbidity) Peripheral neuropathy Acquired hypothyroidism Chronic venous insufficiency CKD (chronic kidney disease) stage 3, GFR 30-59 ml/min COPD (chronic obstructive pulmonary disease) Non-ST elevation [place] (NSTEMI) Persistent atrial fibrillation Primary hyperparathyroidism Restless leg syndrome Situational anxiety Thyroid disease CHF (congestive heart failure), NYHA class I Diabetes 1.5, managed as type 2 Assessments Diagnosis Onset Date Resolution Status Diabetes [...] Referral Specialty Diagnoses / Procedures Referred By Ayeshaac t Referred To Contact Diagnoses Preoperative clearance Chronic atrial fibrillation ([facility]) Procedures ECG 12 Lead Viridiana Burgess, DO [address] [facility] [address] [place] [address] Referral ID Status Reason Start Date Expiration Date V isits Requested Visits Authorized [id number] Authorized 04/17/2023 04/16/2024 1 1 Specialty Diagnoses / Procedures Referred By Contac t Referred To Contact Cardiology Diagnoses Amputation of right great toe ([facility]) Procedures Follow Up In Cardiology Viridiana Burgess, DO [address] [facility] [address] [place] [address] Shameka Melara, FILTER PRESS TENDER HEAD-NIB INSPECTOR [address] [facility] [address], [address] [address] Referral ID Status Reason Start Date Expiration Date V isits Requested Visits Authorized [id number] Authorized 04/17/2023 04/16/2024 1 1 Reason eval and treat for t hyroid disorder Diagnosis 1 Elevated serum free T4 level (R79.89) Diagnosis 2 Chronic fatigue, uns pecified (R53.82) Diagnosis 3 Bradycardia (R00.1) Referral Organization [facility] [place] Referring Provider First Name Ingris Referring Provider Last Name Munira Referring Provider Specialty Clinical Nu rse Specialist Referred Organization [facility] Endocrinology Referred Provider Kevin Alfredo Referred Address [address],[place], [place],[address] Referred Provider Specialty Internal Med icine Referral Priority Routine General Notes Madelaine Cutler 07/2022 09:09:07 AM >Patient does not want to see Juni and will be seeing Jae in regards Reason *FU 10/22 evaluate Diagnosis 1 Lesion of tongue (K1 4.8) Referral Organization [facility] [place] Referring Provider First Name Geeta Referring Provider Last Name Rohrbacher Referring Provider Specialty Nurse Pract itioner Referred Organization [facility] Referred Provider Sindi Foster Referred Address ,[place], [place],[address] Referred Provider Specialty Ear, Nose an d Throat Referral Priority Routine General Notes RobertalissaJorge Albertoya 04:49:33 PM >received today, waiting for notes to be locked to fax Jorge Alberto Powellya 10/15/2022 09:04:24 AM >notes locked, referral faxed Reason evaluate Diagnosis 1 Cervical back pain w ith evidence of disc disease (M50.90) Diagnosis 2 Osteoarthritis of sp ine with radiculopathy, cervical region (M47.22) Diagnosis 3 Other chronic pain ( G89.29) Diagnosis 4 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) Referral Organization [facility] [place] Referring Provider First Name Geeta Referring Provider Last Name Rohrbacher Referring Provider Specialty Nurse Pract itioner Referred Organization [facility] Neurosurgery B vickie Referred Provider Sabino Ding Referred Address [address], [place],[address] Referred Provider Specialty Neurological Surgery Referral Priority Routine General Notes Jorge Alberto Powellya 11:51:05 AM >received today, sent P2P Reason *FU 09/06 evaluate Diagnosis 1 Memory loss (R41.3) Diagnosis 2 Aphasia (R47.01) Referral Organization [facility] [place] Referring Provider First Name Geeta Referring Provider Last Name Rohrbacher Referring Provider Specialty Nurse Pract itioner Referred Organization [facility] Referred Provider Wei Soto Referred Address ,[place], [place],[address] Referred Provider Specialty Neurology Referral Priority Routine [...] section and content) DATE CREATED AUTHOR 10/03/2017 [facility] DATE CREATED AUTHOR AUTHOR'S ORGANIZ ATION 07/06/2020 [facility] DATE CREATED AUTHOR AUTHOR'S ORGANIZ ATION 10/10/2020 [facility] DATE CREATED AUTHOR AUTHOR'S ORGANIZ ATION 09/20/2021 [facility] dical Specialist DATE CREATED AUTHOR AUTHOR'S ORGANIZ ATION 11/07/2021 [facility] DATE CREATED AUTHOR AUTHOR'S ORGANIZ ATION 12/15/2021 [facility] DATE CREATED AUTHOR AUTHOR'S ORGANIZ ATION 07/04/2022 [facility] DATE CREATED AUTHOR AUTHOR'S ORGANIZ ATION 09/08/2022 [facility] DATE CREATED AUTHOR AUTHOR'S ORGANIZ ATION 09/08/2022 [facility] DATE CREATED AUTHOR AUTHOR'S ORGANIZ ATION 12/20/2022 [facility] DATE CREATED AUTHOR AUTHOR'S ORGANIZ ATION 04/21/2023 [facility] DATE CREATED AUTHOR AUTHOR'S ORGANIZ ATION 04/25/2023 [facility] dical Specialists EPIC DATE CREATED AUTHOR AUTHOR'S ORGANIZ ATION 04/26/2023 [facility] Reason for Visit (unrecogniz ed section and content) Status Reason Specialty Diagnoses / Procedures Referre d By Contact Referred To Contact Diagnoses Hemostasis disorder (HCC) Lung disease HEMOSTASIS, INTERSTITIAL LUNG DISEASE, HISTORY OF AMIODARONE THERAPY Procedures MI OFFICE/OUTPT VISIT,PROCEDURE ONLY MI BRNCC INCL FLUOR GDNCE DX W/CELL WASHG SPX BRONCHOSCOPY WITH Ulisses Saini MD [facility] [place] [address] [facility] Status Reason Specialty Diagnoses / Procedures Referre d By Contact Referred To Contact Diagnoses Hemoptysis Cough Shortness of breath Procedures HC CT CHEST W/O CONTRAST [facility] Reason Comments Follow-up 6 months, POC Specialty Diagnoses / Procedures Referred By Contac t Referred To Contact Diagnoses Preoperative clearance Chronic atrial fibrillation (CMS/HCC) Procedures ECG 12 Lead Viridiana Burgess DO [address] [facility] [address], [address] [place] [address] Referral ID Status Reason Start Date Expiration Date V isits Requested Visits Authorized [id number] Authorized 04/17/2023 04/16/2024 1 1 Reason Comments [...] Care Teams (unrecognized sec tion and content) Imaging Scheduler Relationship Specialty Start Date End Date Russell Li MD PCP - General Orthopedic Surgery 03/30/19 Team Status: Active Member Role Status Dates Sandra Danielson II, Attending Provider Active Teri Aragon DO Primary Care [...] , Primary Care Provider Active Joana Farooq CLEAN UP WORKER-C Attending Provider Active Team Status: Inactive Member Role Status Dates Francisco Li DO Primary Care Provider Active Geeta Dumont APRN CLEAN UP WORKER-C Attending Provider Act boogie Team Status: Active Member Role Status Dates Teri Aragon DO Primary Care Provider Active Team Status: Inactive Member Role Status Álvaro Begum DPM Attending Provider Active Team Status: Inactive Member Role Status Dates Teri Aragon DO Primary Care Provider Active oJana Farooq CLEAN UP WORKER-C Attending Provider Active Team Status: Inactive Member Role Status Dates Sima Wagner APRN Attending Provider Active Geeta Dumont APRN CLEAN UP WORKER-C Primary Care Provider Active Team Status: Inactive Member Role Status Álvaro Begum DPM Attending Provider Active PHYSICIAN NO FAMILY Primary Care Provider Active Team Status: Active Member Role Status Dates Geeta Dumont APRN CLEAN UP WORKER-C Primary Care Provider Active Team Status: Inactive Member Role Status Dates Geeta Dumont APRN CLEAN UP WORKER-C Primary Care Provider, Attending Provider Active Team Status: Inactive Member Role Status Dates Geeta Dumont APRN CLEAN UP WORKER-C Primary Care Provider Active Joana Jacobseyleida , CLEAN UP WORKER-C Attending Provider Active Stephanie Burgess DO Referring Provider Active Team Status: Inactive Member Role Status Dates Geeta Dumont , FILTER PRESS TENDER HEAD CLEAN UP WORKER-C Primary Care Provider Active Dario Bolden DPM Attending Provider Active Team Status: Inactive Member Role Status Dates Geeta Dumont , FILTER PRESS TENDER HEAD CLEAN UP WORKER-C Primary Care Provider Active Arron Valverde MD Attending Provider Active Team Status: Inactive Member Role Status Dates Geeta Ernandezr , FILTER PRESS TENDER HEAD CLEAN UP WORKER-C Primary Care Provider Active Lavon Sandoval MD Attending Provider Active Team Status: Inactive Member Role Status Dates Geeta Reedbrynmary , FILTER PRESS TENDER HEAD CLEAN UP WORKER-C Primary Care Provider Active Sabino Ding MD Attending Provider Active Team Status: Inactive Member Role Status Dates Geeta Dumont , FILTER PRESS TENDER HEAD CLEAN UP WORKER-C Primary Care Provider Active W Nannette Burgess DO Attending Provider Active Team Status: Active Member Role Status Dates NON STAFF Primary Care Provider Active Team Status: Inactive Member Role Status Dates Geeta Dumont , FILTER PRESS TENDER HEAD CLEAN UP WORKER-C Attending Provider Act boogie NON STAFF Primary Care Provider Active Team Status: Inactive Member Role Status Dates NON STAFF Primary Care Provider Active Teri Ybarra MD Attending Provider Active Team Status: Inactive Member Role Status Dates NON STAFF Attending Provider Active Team Status: Inactive Member Role Status Dates Vivian Del Rosario , FILTER PRESS TENDER HEAD Attending Provider Acti ve Team Status: Inactive Member Role Status Dates Teri Aragon , DO Primary Care Provider Active Stephanie Burgess DO Attending Provider Active Team Status: Inactive Member Role Status Dates Teri Aragon , Primary Care Provider Active Sindi Foster Jr, MD Attending Provider Active Team Status: Inactive Member Role Status Dates Teri Aragon , DO Primary Care Provider Active Dario Bolden DPM Attending Provider Active Team Status: Active Member Role Status Dates Teri Aragon , DO Primary Care Provider Active Bobby Bernabe , Emergency Provider Active Barry Cisneros MD Admit Provider, Attending Provider A sky Schneider RN Other Provider Active W Nannette Burgess DO Other Provider Active Elroy Werner MD Other Provider Active Viridiana Thompson MD Other Provider Active Deanne Gaxiola MD Other Provider Active Garry Rivera MD Other Provider Active Shameka Melara , FILTER PRESS TENDER HEAD Other Provider Active Rosemary Rodriguez MD Other Provider Active Yeny Flores MD Other Provider Active Ariane Ramsey MD Other Provider Active Naomi Greenfield , [facility] Other Provider Active Kelsea Yancey MD Other [...] MD Other Provider Active Naomi Greenfield , [facility] Other Provider Active Kelsea Yancey MD Other [...] Duckworth MD Referring Provider Active Joana Farooq NP-C Other Provider Active Team Status: Active Member Role Status Álvaro Aragon , DO Primary Care Provider Active Sima Wagner APRN Attending Provider Active Team Status: Inactive Member Role Status Dates Alton Espinoza DPM MS Attending Provider Active Geeta Dumont APRN CLEAN UP WORKER-C Primary Care Provider Active Team Status: Inactive Member Role Status Álvaro Aragon , DO Primary Care Provider Active Sima Wagner APRN Attending Provider Active Team Status: Active Member Role Status Dates Geeta Dumont APRN CLEAN UP WORKER-C Primary Care Provider Active Sindi Foster Jr, MD Attending Provider Active Team Status: Inactive Member Role Status Dates Geeta Dumont APRN CLEAN UP WORKER-C Primary Care Provider Active Sindi Foster Jr, [...] Cisneros MD Admit Provider Active Start: N ovember [...] End: February 10, 2023 Naomi Greenfield , DRIVER'S EDUCATION INSTRUCTOR- Other Provider Active Sta rt: February 08, [...] Member Role Status Dates Geeta Dumont APRN CLEAN UP WORKER-C Attending Provider Act boogie Start: March 05, 2023 End: March 05, 2023 Team Status: Inactive Member Role Status Dates Geeta Dumont APRN CLEAN UP WORKER-C Primary Care Provider, Attending Provider Active Start: March 07, 2023 End: March 07, 2023 Team Status: Inactive Member Role Status Dates Geeta Dumont APRN CLEAN UP WORKER-C Attending Provider Act boogie Start: March 20, 2023 End: March 20, 2023 Team Status: Inactive Member Role Status Dates Alton Espinoza DPM MS Attending Provider Active Start: March 20, 2023 End: March 20, 2023 Geeta Dumont APRN CLEAN UP WORKER-C Primary Care Provider Active Start: March 20, 2023 End: March 20, 2023 Team Status: Inactive Member Role Status Dates Alton Espinzoa DPM MS Attending Provider Active Start: March 22, 2023 End: March 22, 2023 Geeta Dumont APRN CLEAN UP WORKER-C Primary Care Provider Active Start: March 22, 2023 End: March 22, 2023 Team Status: Inactive Member Role Status Dates Geeta Dumont APRN CLEAN UP WORKER-C Primary Care Provider Active Start: March End: March 27, 2023 Sindi Foster Jr, MD Attending Provider Active Start: March 27, 2023 End: March 27, 2023 Team Status: Inactive Member Role Status Dates Geeta Dumont APRN CLEAN UP WORKER-C Primary Care Provider, Attending Provider Active Start: April 04, 2023 End: April 04, 2023 Imaging Scheduler Relationship Specialty Start Date End Date Teri Aragon DO [address] [place] [address] PCP - General Family Medicine 02/08/23 Team Status: Inactive Member Role Status Dates Geeta Dumont APRN CLEAN UP WORKERJavier Primary Care Provider Active Start: March End: April 17, 2023 Mina Reilly MD Attending Provider Active Star t: April 17, 2023 End: April 17, 2023 Imaging Scheduler Relationship Specialty Start Date End Date Geeta Dumont NP [address] [place] [address] PCP - [facility] Medicine 10/24/22 Imaging Scheduler Relationship Specialty Start Date End Date Geeta Dumont NP [address] [facility] [place] [address] PCP - [facility] 10/24/22 Team Status: Inactive Member Role Status Dates GOLDEN Vogt Attending Provider Act boogie Start: April 04, 2023 End: April 04, 2023 Team Status: Inactive Member Role Status Dates Mina Reilly MD Attending Provider Active Star t: April 18, 2023 End: April 18, 2023 Team Status: Inactive Member Role Status Dates Geeta Dumont APRN CLEAN UP WORKER-Serafin Primary Care Provider, Attending Provider Active Start: April 30, 2023 End: April 30, 2023 Goals (unrecognized section and content) Goals [...] BE BASED ON THE PRIMARY CLINICAL RECORDS. [employer] provides no warranty or guarantee of the accuracy or completeness of information in this document.
[2023-05-13 08:17] LABS: Glucometer 138 mg/dL (74-106)
[2023-05-13] MEDS: LACTATED RINGER'S SOLUTION 1,000 ML 50 ML IV (08:25)
[2023-05-13] MEDS: CEFAZOLIN SODIUM/DEXTROSE,ISO 2 GM/50 ML PIGGYBACK IV (09:11)
--- NOTE | 2023-05-13 09:35 | PM.ORONB ---
Brief Operative Note Date of procedure: 05/13/23 Pre-op diagnosis: left hallux ulcer, chronic osteomyelitis, hammertoes Procedure: PROCEDURE(S) PERFORMED: left hallux amputation, sesamoidectomy, extensor tenotomy 2nd toe, capsulotomy 2nd metatarsal phalangeal joint and flexor tenotomy of toes 3, 4, & 5 INDICATION FOR PROCEDURE: patient is 67-year-old male with type 2 diabetes with peripheral neuropathy and history of diabetic foot infection which resulted in partial left great toe amputation which was performed at an outside facility. He presented to our wound center for a 2nd opinion regarding a wound on the hallux stump for roughly 6 months as well as recurrent callus and ulceration at plantar aspect of the 1st metatarsal head over the sesamoids. We discussed potential risks and benefits of continued conservative wound care versus surgical intervention. Due to the waxing and waning progress of his left hallux ulcer he wished to undergo the above procedures. Previously we did attempt to place him into a total contact cast which resulted in extreme claustrophobia and he cutting off the cast himself therefore recommended that he be placed into a cam boot after surgery. INTRAOPERATIVE FINDINGS: full-thickness ulceration noted at the plantar aspect of the proximal phalanx of left great toe. Pre-ulcerative lesion sub-1st metatarsal head with prominent sesamoids. No evidence of acute infection. Sesamoids were enlarged but no gross evidence of acute or chronic infection. Dorsal contracture of the 2nd toe stump and release of the extensor tendon to improve the alignment but residual contracture remained. Therefore, decision was made to perform a capsulotomy to the dorsal aspect of the 2nd metatarsophalangeal joint which will be released the contracture. Semi-reducible contractures of toes three, four and five. PROCEDURE IN DETAIL: Patient was identified in pre op and consent was reviewed. Correct side and site were identified and marked. Pre-op antibiotics were started. Patient was brought to OR suite and place on table in a supine position. General anesthesia was administered. Tourniquet applied. Operative extremity was prepped and draped in usual sterile fashion. Formal time-out was performed and the foot/ankle were exsanguinated and tourniquet inflated. A fishmouth incision was placed on the great toe. Full-thickness incision was taken down to bone to the level of the metatarsophalangeal joint and all soft tissue attachments were released allowing disarticulation of the digit. The amputated digit was passed back table and sent for specimen. Tendinous structures were cut proximally. Surgical site was irrigated with normal saline and inspected for any nonviable tissue which was removed. the medial aspect of the incision was then extended proximally and a combination sharp and blunt dissection gained access to the tibial sesamoid. The flexor tendon was distracted allowing excision of the tibial sesamoid. Then the lateral slip of the flexor tendon was also distracted allowing excision of the fibular sesamoid. Both sesamoids were sent as specimen. Surgical site was irrigated with copious saline then the incision was closed in a single layer using skin suture. 1 cm incision was placed over the dorsal aspect of the 2nd metatarsophalangeal joint and comminution sharp and blunt dissection gained access to the extensor tendon which was isolated with a hemostat then transected horizontally which improved the dorsal contracture of the 2nd toe but did not fully correct the contracture. So the incision was extended dorsally and proximally and comminution sharp and blunt dissection gained access to the capsule of the 2nd metatarsophalangeal joint which was released sharply then bluntly insuring to release the dorsal, medial and lateral aspects of the capsule. This capsulotomy fully reduced the dorsal contracture of the 2nd toe. Surgical site was irrigated with copious saline and the incision was closed with skin suture. With attention to the 3rd toe a stab incision was made on the plantar aspect and blunt dissection gained access to the flexor tendon which was isolated with a hemostat. The tendon was then transected horizontally releasing the contracture to the 2nd toe. The exact same procedure was then performed on the 4th toe and the 5th toe. The tourniquet was deflated with a prompt hyperemic response 1 suture was placed for hemostasis on the plantar aspects of toes three, four and five. Surgical sites were irrigated with saline. Bulky dry sterile dressing was applied. patient tolerated the procedure and anesthesia well transferred to the recovery room with vital signs stable and brisk capillary refill. cam boot will be applied in the recovery room POSTOPERATIVE PLAN: Discharge home under family's care Post op instructions provided verbally and written prescription(s) were placed in chart weightbearing to the left heel in cam boot Follow-up in 1 week Implants: none Anesthesia: General-LMA Surgeon: Alton Espinoza [employer] Harvest Machine Operator: Mat Salcedo Estimated blood loss (mL): 10 Pathology: other (hallux amputation, sesamoids) Condition: stable Disposition: PACU
[2023-05-13] MEDS: BUPIVACAINE HCL 0.5% PF 50 MG/10 ML VIAL 20 ML INJ (09:42)
--- NOTE | 2023-05-13 10:39 | XR_ITS ---
The [address] [address] Patient Name: SANDRA POTTER MRN: [id number] date: 1955 Sex: M Assigned Patient Location: [facility] Current Patient Location: Accession/Order Number: [id number] Exam Date: 05/13/2023 11:45 Report Date: 05/13/2023 13:12 At the request of: STARLA ERWIN Procedure: XR foot LT min 3V PROCEDURE: XR foot LT min 3V COMPARISON: 03/01/2023 HISTORY: postop xr pacu FINDINGS: BONES:Interval amputation at the first metatarsal-phalangeal joint. Stable remote amputation head of the second proximal phalanx. Moderate enthesopathic spurring of the calcaneus at the Achilles and plantar insertions. No lytic or sclerotic changes are observed SOFT TISSUES:Soft tissue swelling along the amputation site with subcutaneous emphysema EFFUSION:None visible. OTHER: Negative. XR/XR foot LT min 3V IMPRESSION: Interval amputation at the first metatarsal-phalangeal joint with no plain film evidence of osteomyelitis Electronically authenticated by: JODEE OCASIO Date: 05/13/2023 13:12
[2023-05-13 10:43] LABS: Glucometer 165 mg/dL (74-106)
[2023-05-13] MEDS: KETOROLAC TROMETHAMINE 30 MG/ML VIAL 15 MG IVP (10:51)
--- NOTE | 2023-05-13 10:57 | PC.NURSE ---
Patient states his left side ribs are hurting at this time more than the foot.
== END 2023-05-13 11:52 | disposition home or self-care (01) ==
PROVIDERS: PCP Nurse Practitioner Family; Visit Provider Podiatrist Foot & Ankle Surgery
PROC: (CPT 1470; principal; 2023-05-13 09:00)
DX: E11.621 Type 2 diabetes mellitus with foot ulcer (principal); M86.672 Other chronic osteomyelitis, left ankle and foot; L97.522 Non-pressure chronic ulcer of other part of left foot with fat layer exposed; E11.69 Type 2 diabetes mellitus with other specified complication; Z79.01 Long term (current) use of anticoagulants; I12.9 Hypertensive chronic kidney disease with stage 1 through stage 4 chronic kidney disease, or unspecified chronic kidney disease; N18.9 Chronic kidney disease, unspecified; E11.22 Type 2 diabetes mellitus with diabetic chronic kidney disease; I48.91 Unspecified atrial fibrillation; I25.10 Atherosclerotic heart disease of native coronary artery without angina pectoris; Z95.0 Presence of cardiac pacemaker; E11.42 Type 2 diabetes mellitus with diabetic polyneuropathy; M20.42 Other hammer toe(s) (acquired), left foot; M20.5X2 Other deformities of toe(s) (acquired), left foot; J44.9 Chronic obstructive pulmonary disease, unspecified; Z86.718 Personal history of other venous thrombosis and embolism; F32.A Depression, unspecified; F41.9 Anxiety disorder, unspecified; Z86.16 Personal history of COVID-19; G47.30 Sleep apnea, unspecified; Z87.01 Personal history of pneumonia (recurrent); K21.9 Gastro-esophageal reflux disease without esophagitis; C85.10 Unspecified B-cell lymphoma, unspecified site; E03.9 Hypothyroidism, unspecified; Z95.818 Presence of other cardiac implants and grafts; Z87.891 Personal history of nicotine dependence; Z79.82 Long term (current) use of aspirin
CPT/HCPCS: 28232 ×3; 28234; 28272; 28315; 28820; 36415; 73630; 82948; 88305; 88311; 99999; J2704

== ENCOUNTER 2023-05-21 15:34 | Outpatient (OUT) | payer OTHER, SELFPAY | END 2023-05-21 15:35 | disposition home or self-care (01) | LOC: WC 15:34 | PROVIDERS: PCP Nurse Practitioner Family; Visit Provider Podiatrist Foot & Ankle Surgery | DX: T87.89 Other complications of amputation stump (principal) | CPT/HCPCS: G0463 ==

== ENCOUNTER 2023-06-03 13:53 | Outpatient (OUT) | payer OTHER, SELFPAY | END 2023-06-03 13:54 | disposition home or self-care (01) | LOC: WC 13:53 | PROVIDERS: PCP Nurse Practitioner Family; Visit Provider Physician Assistant | DX: T87.89 Other complications of amputation stump (principal) | CPT/HCPCS: G0463 ==

== ENCOUNTER 2023-06-10 15:49 | Outpatient (OUT) | payer OTHER, SELFPAY | END 2023-06-10 15:50 | disposition home or self-care (01) | LOC: WC 15:49 | PROVIDERS: PCP Nurse Practitioner Family; Visit Provider Physician Assistant | DX: T87.89 Other complications of amputation stump (principal) | CPT/HCPCS: G0463 ==

== ENCOUNTER 2023-06-28 11:44 | Outpatient (OUT) | payer OTHER, SELFPAY | END 2023-06-28 11:45 | disposition home or self-care (01) | LOC: WC 11:44 | PROVIDERS: PCP Nurse Practitioner Family; Visit Provider Podiatrist Foot & Ankle Surgery | DX: T87.89 Other complications of amputation stump (principal) | CPT/HCPCS: 11042 ==

== ENCOUNTER 2023-07-19 11:39 | Outpatient (OUT) | payer OTHER, SELFPAY | END 2023-07-19 11:40 | disposition home or self-care (01) | LOC: WC 11:39 | PROVIDERS: PCP Nurse Practitioner Family; Visit Provider Podiatrist Foot & Ankle Surgery | DX: E11.621 Type 2 diabetes mellitus with foot ulcer (principal); L97.522 Non-pressure chronic ulcer of other part of left foot with fat layer exposed | CPT/HCPCS: 11042 ==

== ENCOUNTER 2023-08-06 15:32 | Outpatient (OUT) | payer OTHER, SELFPAY | END 2023-08-06 15:33 | disposition home or self-care (01) | LOC: WC 15:32 | PROVIDERS: PCP Nurse Practitioner Family; Visit Provider Podiatrist Foot & Ankle Surgery | DX: T87.89 Other complications of amputation stump (principal) | CPT/HCPCS: G0463 ==

== ENCOUNTER 2023-09-17 12:15 | Outpatient (OUT) | payer OTHER, SELFPAY | END 2023-09-17 12:16 | disposition home or self-care (01) | LOC: WC 12:15 | PROVIDERS: PCP Nurse Practitioner Family; Visit Provider Podiatrist Foot & Ankle Surgery | DX: E11.621 Type 2 diabetes mellitus with foot ulcer (principal); L97.522 Non-pressure chronic ulcer of other part of left foot with fat layer exposed | CPT/HCPCS: G0463 ==

== ENCOUNTER 2023-10-21 15:44 | Outpatient (OUT) | payer OTHER, SELFPAY | END 2023-10-21 15:45 | disposition home or self-care (01) | LOC: WC 15:44 | PROVIDERS: PCP Nurse Practitioner Family; Visit Provider Physician Assistant | DX: E11.621 Type 2 diabetes mellitus with foot ulcer (principal); L97.522 Non-pressure chronic ulcer of other part of left foot with fat layer exposed | CPT/HCPCS: G0463 ==